=== PATIENT | male | born 1935 | race Caucasian/White ===

== ENCOUNTER 2016-11-18 08:13 | Inpatient (IN) | payer OTHER ==
[2016-11-18] VITALS (39 sets, daily range): BP systolic 77–148; BP diastolic 49–87; PULSE 68–98; TEMP 36.7–37; O2SAT 87–97; Ht 165.1 cm; Wt 69.6 kg
[~2016-11-18] VITALS: Ht 165.1 cm; Wt 69.6 kg
[~2016-11-18 08:13] MED LIST: ACYC5OIN3 EXT; ALBUAER2 INH; ALFU1TAB2 PO; BILB1CAP PO; CMD/25 PO; COEN1CAP17 PO; CRS/10 PO; GLUC1TAB22 PO; LORA10TA51 PO; MAGN250T3 PO; NXM/40 PO; PRED-301 PO; RISE150T PO; ROPI0.5T15 PO; TRAM-453 PO; WARF-246 PO
[2016-11-18] MEDS ORDERED: NOREPINEPHRINE BITARTRATE 1 MG/ML 4 ML VIAL ONE (09:38)
[2016-11-18] MEDS ORDERED: NOREPINEPHRINE BIT INJ 8 MG in DEXTROSE 5% 500ML 500 ML IV PRN (09:45)
[2016-11-18] MEDS ORDERED: NOREPINEPHRINE BIT INJ 8 MG in DEXTROSE 5% 500ML 500 ML IV SCH (09:49)
[2016-11-18] MEDS ORDERED: ROPI1TAB29 PO (09:52)
--- NOTE | 2016-11-18 10:10 | History and Physical ---
History & Physical Date & Time of Service: Nov 18, 2016 at 10:07 . Chief Complaint: confusion . Primary Care Physician: David Hu M.D. . History of Present Illness Source: patient, clinic records, hospital records 81 YO male followed by Dr. Hu for Family Medicine and Dr. Rainey for Cardiology. History of chronic atrial fibrillation, atrial flutter, ventricular tachycardia , valvular heart disease (s/p bioprosthetic AVR + MV repair), pulmonary embolism , osteoarthritis managed with chronic prednisone therapy, and other problems as noted below. Developed nausea, vomiting, diarrhea 2 nights ago after eating a hamburger at a restaurant. Was evaluated in the Emergency Department @[facility]. Medical status was stable and he returned home. Yesterday his family noted increasing confusion during the day. Returned to ED @ [facility]. Upon arrival there, he was tachycardic and hypotensive. He appeared to be septic. Blood pressure was 79/59. WBC was 3800. Serum lactate was < 2. Blood cultures were obtained. Received intravenous levofloxacin and piperacillin/tazobactam. Received fluid resuscitation with 3 L of normal saline. Remained hypotensive. Started on norepinephrine infusion for pressor support. No ICU beds available at [facility]. Arrangements made for transfer to [facility] for continued care. Systolic BPs in the 90 en route. Patient remained on norepinephrine infusion at time of arrival. He stated that he was feeling better. No chest pain, cough, shortness of breath. Nausea and vomiting resolved. . Past Medical/Surgical History Chronic & Resolved Medical Problems: (1) Atrial fibrillation Status: Chronic (2) BPH (benign prostatic hypertrophy) Status: Chronic (3) Carotid artery disease Status: Chronic (4) Cholelithiases Status: Chronic (5) Chronic steroid use Permanent Comment: prednisone 5 mg daily for osteoarthritis Status: Chronic (6) CKD (chronic kidney disease), stage III Status: Chronic (7) COPD (chronic obstructive pulmonary disease) Status: Chronic (8) Diverticular disease of colon Status: Chronic (9) Dyslipidemia Status: Chronic (10) History of atrial flutter Status: Chronic (11) History of electrophysiologic study Status: Chronic (12) History of paroxysmal supraventricular tachycardia Status: Chronic (13) History of prostate cancer Permanent Comment: 2007 Status: Chronic (14) History of pulmonary embolism Status: Chronic (15) History of ventricular tachycardia Status: Chronic (16) Hypertension Status: Chronic (17) Hypertensive heart disease Status: Chronic (18) Osteoarthritis Status: Chronic (19) Restless legs syndrome Status: Chronic (20) Spinal stenosis of lumbar region Status: Chronic Surgical Problems: (1) Status post aortic valve replacement Permanent Comment: bioprosthetic Status: Chronic (2) Status post cataract extraction Status: Chronic (3) Status post inguinal hernia repair Status: Chronic (4) Status post mitral valve repair Status: Chronic (5) 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 Family History MOTHER Arthritis BROTHER Diabetes mellitus Esophageal cancer FATHER Coronary artery disease SON Asthma Social History Smoking Status: Never Smoker Alcohol Use: occasionally Marital Status: Occupational Status: retired Immunizations History of Influenza Vaccine: Yes Allergies Coded Allergies: Penicillins (Verified Allergy, Intermediate, RASH/EL-ORBITAL EDEMA, 03/05) Home Medications Scheduled Alfuzosin Hcl (Alfuzosin Hcl Er), 10 MG PO QPM Bilberry (Vaccinium Myrtillus) (Bilberry), 100 MG PO QAM Coenzyme Q10 (Ubidecarenone) (Co Q 10), 100 MG PO QAM Esomeprazole Magnesium (Nexium), 40 MG PO QPM Loratadine (Claritin), 1 TAB PO QAM Magnesium (Magnesium 250 mg), 1 TAB PO QPM Prednisone (Prednisone), 5 MG PO QAM Risedronate Sodium (Actonel), 150 MG PO MONTHLY Ropinirole HCl (Ropinirole HCl), 1 MG PO HS Rosuvastatin Calcium (Crestor), 10 MG PO DAILY Warfarin Sod (Coumadin), 2.5 MG PO 5XWK Warfarin Sodium (Warfarin Sodium), 1 TAB PO 2XWK Scheduled PRN Acyclovir (Zovirax 5% Oint), 1 APPLN EXT for COLD SORES Albuterol (Ventolin), 2 PUFFS INH QID PRN for Shortness of Breath Tramadol Hcl (Ultram), 50-100 MG PO Q8 PRN for Pain Review of Systems Constitutional: + chills, No fever, No weight loss Eyes: + worsening of vision (associated with closed head injury 11/10, resolved ) ENT: + hearing loss, No nasal symptoms, No sore throat Respiratory: No cough, No shortness of breath, No wheezing Cardiovascular: No chest pain, No edema Abdomen: + diarrhea, + nausea, + vomiting, No GI bleeding, No pain Musculoskeletal: + joint pain, No muscle pain Genitourinary - Male: No dysuria, No hematuria Neurologic: + memory loss (confusion yesterday) Endocrine: + fatigue, No excessive thirst, No excessive urination Hematologic / Lymphatic: No abnormal bleeding/bruising, No swollen lymph nodes Integumentary: No new/changing skin lesions, No rash Physical Exam General Appearance: WD/WN, no apparent distress Head: normocephalic, atraumatic Eyes: normal inspection, PERRL, EOMI, sclerae normal, + pertinent finding ( conjunctivae pink) ENT: normal ENT inspection, hearing grossly normal, + pertinent finding (mild hearing loss) Neck: supple, no adenopathy, thyroid normal, no JVD, trachea midline Respiratory/Chest: lungs clear, no respiratory distress, no accessory muscle use Cardiovascular: no edema, no gallop, no JVD, + systolic murmur (II/ systolic murmur at base), + irregularly irregular Abdomen/GI: normal bowel sounds, non tender, soft, no organomegaly, no pulsatile mass Extremities/Musculoskelatal: normal inspection, no calf tenderness, normal capillary refill, no pedal edema 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 (PERRL, EOMI, no facial palsy, no dysarthria, tongue midline), no motor/sensory deficits (motor strength extremities grossly intact), alert, oriented x 3 Skin: normal color, warm/dry, no rash Lymphatic: no adenopathy Diagnostics Laboratory Results Results Past 24 Hours Test 11/18/16 09:10 11/18/16 09:15 11/18/16 09:33 Range/Units Creatine Kinase MB Ratio 0-3.0 Microbiology Results 11/18/16 Blood Culture, Branden Batch Pending 11/18/16 Blood Culture, Branden Batch Pending 11/18/16 MRSA DNA Surveillance Screen, Ordered Pending 11/18/16 C.difficile Toxin B Gene (PCR), Ordered Pending 11/18/16 Shiga Toxin Test, Ordered Pending 11/18/16 Stool Culture, Ordered Pending 11/18/16 Urine Culture, Ordered Pending Diagnostic Radiology SINGLE VIEW CHEST CLINICAL HISTORY: Hypotension. Rapid atrial fibrillation. FINDINGS: An AP, portable, upright chest radiograph is compared to study dated 08/10/2015 and correlated with chest CT dated 09/14/2014. The examination is degraded by portable technique and apical and out of positioning. The patient is status post midline sternotomy and cardiac valve surgeries. The heart is enlarged and there is atherosclerotic calcification of the thoracic aorta. There is pulmonary vascular congestion. Mild interstitial edema is identified. Small pleural effusions are suspected. There is no airspace consolidation typical for pneumonia. A calcified granuloma is noted in the left lung. No pneumothorax is seen. The skeletal structures are osteopenic. Degenerative changes present in the shoulders and thoracic spine. IMPRESSION: 1. Cardiomegaly with evidence of congestive failure and mild interstitial edema 2. Suspect trace pleural effusions.. Electronically signed by: Caleb Sams M.D. 11/18/2016 11:22 AM . EKG EKG performed at 10:22 reviewed and demonstrated atrial flutter with variable conduction, ventricular rate 80/minute, slight ST depression I, biphasic T waves and T-wave flattening in lateral leads. . Impression Assessment and Plan SEPTIC SHOCK Presented to Emergency Department at [facility] last night with confusion, tachycardia, hypotension. Had developed nausea, vomiting, diarrhea approximately 24 hours prior to presentation. Met criteria for sepsis @ [facility]- tachycardia, hypotension, leukopenia, altered mental status. 3-hour and 6 hour bundled sepsis care performed at [facility] prior to transfer. Blood cultures obtained. Lactate < 2. Broad-spectrum antibiotics (levofloxacin and piperacillin/tazobactam) administered. Received fluid resuscitation with 3 L normal saline. Persistent hypotension despite fluid resuscitation. Started on norepinephrine infusion for septic shock. Hemodynamics improved by the time patient arrived here in ICU. Try to discontinue norepinephrine and hemodynamics allow. Has received adequate fluid resuscitation prior to arrival here; NSS boluses PRN. On chronic prednisone therapy. May have adrenal insufficiency. IV hydrocortisone ordered. Continue broad-spectrum antibiotics. Allergic to penicillin. Will opt for daptomycin, levofloxacin, aztreonam pending culture data. Check procalcitonin. Check stool specimen for Clostridium difficile and routine enteric pathogens. Check culture results from [facility]. ALTERED MENTAL STATUS Family noted increasing confusion yesterday, prompting return to ED at [facility]. Probable encephalopathy secondary to sepsis. Had closed head injury with apparent concussion on 11/10. Check follow-up CT head to rule out SDH or other intracranial hemorrhage. CHRONIC ATRIAL FLUTTER Rate usually controlled without medications. Rapid ventricular response ED at [facility]. Ventricular rate now in the 80s to 90s. Continue anticoagulation with warfarin. CHF / PULMONARY EDEMA Chest x-ray shows pulmonary edema. History of hypertensive heart disease and diastolic dysfunction, but not requiring chronic diuretic therapy. Received fluid resuscitation for septic shock as outlined above. Probable acute left ventricular diastolic heart failure. Follow symptoms, exam, chest films. Diurese PRN. Check echocardiogram. HISTORY OF HYPERTENSION Not taking any antihypertensive medications at this time. Follow. CKD III Monitor renal function. Avoid potential nephrotoxins when able. OSTEOARTHRITIS/CHRONIC PREDNISONE THERAPY IV hydrocortisone while acutely ill, then resume prednisone 5 mg daily. DYSLIPIDEMIA Hold rosuvastatin while receiving daptomycin. VTE PROPHYLAXIS / HISTORY OF PE History of pulmonary embolism. On chronic warfarin therapy for atrial fibrillation/flutter and history of pulmonary embolism. INR 1.9. SCD's. Titrate warfarin. Ambulate when able. RESUSCITATION STATUS Discussed with patient. He would like resuscitation attempted in the event of a cardiopulmonary arrest if there is a reasonable chance of a meaningful recovery, but does not want prolonged extraordinary measures if prognosis is poor. Therefore, code status = "Level 1" (full resuscitation). DISPOSITION Acute transfer from [place] ED to ICU. Discharge disposition to be determined, but hopefully discharge to home. Family Medicine follow-up with Dr. Hu. Cardiology follow-up with Dr. Rainey. ADDENDUM: Lab results: Item Value Date Time Hemoglobin 13.7 g/dL L 11/18/16 1045 Hematocrit 41.4 % L 11/18/16 1045 White Blood Count 7.23 K/uL 11/18/16 1045 Platelet Count 126 K/uL L 11/18/16 1045 Sodium Level 142 mmol/L 11/18/16 1045 Potassium Level 3.8 mmol/L 11/18/16 1045 Chloride Level 108 mmol/L H 11/18/16 1045 Carbon Dioxide Level 23 mmol/L 11/18/16 1045 Blood Urea Nitrogen 31 mg/dl H 11/18/16 1045 Creatinine 1.40 mg/dl 11/18/16 1045 Random Glucose 99 mg/dl 11/18/16 1045 Calcium Level 6.7 mg/dl L 11/18/16 1045 Phosphorus Level 2.7 mg/dl 11/18/16 1045 Magnesium Level 2.1 mg/dl 11/18/16 1045 Total Bilirubin 1.7 mg/dl H 11/18/16 1045 Aspartate Amino Transf (AST/SGOT) 19 U/L 11/18/16 1045 Alanine Aminotransferase (ALT/SGPT) 17 U/L 11/18/16 1045 Alkaline Phosphatase 34 U/L L 11/18/16 1045 Total Protein 5.7 gm/dl L 11/18/16 1045 Albumin 2.7 gm/dl L 11/18/16 1045 Troponin I 0.063 ng/ml *H 11/18/16 1045 Prothrombin Time 20.7 SECONDS H 11/18/16 1045 Prothromb Time International Ratio 1.9 H 11/18/16 1045 Activated Partial Thromboplast Time 43.6 SECONDS H 11/18/16 1045 Venous Blood pH 7.38 11/18/16 1052 Venous Blood Partial Pressure CO2 36 mmHg L 11/18/16 1052 Venous Blood Partial Pressure O2 48 mmHg 11/18/16 1052 Venous Blood HCO3 21 mmol/L 11/18/16 1052 Venous Blood Oxygen Saturation 81.7 % 11/18/16 1052 Urine Color YELLOW 11/18/16 1000 Urine Appearance CLEAR 11/18/16 1000 Urine Protein TRACE H 11/18/16 1000 Urine Occult Blood 2+ H 11/18/16 1000 Urine Leukocyte Esterase NEG 11/18/16 1000 Urine WBC (Auto) 1-5 /hpf 11/18/16 1000 Urine RBC (Auto) >30 /hpf H 11/18/16 1000 Urine Hyaline Casts (Auto) 5-10 /lpf H 11/18/16 1000 Urine Epithelial Cells (Auto) >30 /lpf H 11/18/16 1000 Urine Bacteria (Auto) NEG 11/18/16 1000 Procalcitonin 7.22 ng/mL H 11/18/16 1045 Lactic Acid Level 1.9 mmol/L 11/18/16 1052 Received IV hydrocortisone. Norepinephrine discontinued. Hemodynamically stable. Family visiting and given update. . Resuscitation Status FULL RESUSCITATION VTE Prophylaxis VTE Risk Assessment Done? Y/N: Yes Risk Level: Moderate Given or contraindicated: Warfarin (Coumadin), SCD's Note Total Time: Critical Care 30 - 74 minutes (70 min)
[2016-11-18] MEDS ORDERED: HYDROCORTISONE IV 50 MG in SYRINGE 0 ML IV ONE ×2 (10:15→18:00)
[2016-11-18 10:43] LABS: URINE APPEARANCE CLEAR (CLEAR); URINE BILIRUBIN NEG (NEG); URINE COLOR YELLOW; URINE EPITHELIAL CELL AUTO >30 /lpf (0-5); URINE NITRITE NEG (NEG); URINE SPECIFIC GRAVITY 1.026 (1.000-1.030); UROBILINOGEN NEG (NEG)
[2016-11-18 10:44] LABS: MANUAL MICROSCOPIC REQUIRED? NO; REVIEW REQ? NO
[2016-11-18 11:18] LABS: HEMATOCRIT 41.4 % (42-52); MEAN CELL VOLUME 85.5 fL (80-100); MEAN CORPUSCULAR HEMOGLOBIN 28.3 pg (25-34); MEAN CORPUSCULAR HGB CONC 33.1 g/dl (32-36); MEAN PLATELET VOLUME 9.4 fL (7.4-10.4); PLATELET COUNT 126 K/uL (130-400); RED BLOOD COUNT 4.84 M/uL (4.7-6.1); WHITE BLOOD COUNT 7.23 K/uL (4.8-10.8)
--- NOTE | 2016-11-18 11:23 | DIAGNOSTIC IMAGING REPORT ---
SINGLE VIEW CHEST CLINICAL HISTORY: Hypotension. Rapid atrial fibrillation. FINDINGS: An AP, portable, upright chest radiograph is compared to study dated 08/10/2015 and correlated with chest CT dated 09/14/2014. The examination is degraded by portable technique and apical and out of positioning. The patient is status post midline sternotomy and cardiac valve surgeries. The heart is enlarged and there is atherosclerotic calcification of the thoracic aorta. There is pulmonary vascular congestion. Mild interstitial edema is identified. Small pleural effusions are suspected. There is no airspace consolidation typical for pneumonia. A calcified granuloma is noted in the left lung. No pneumothorax is seen. The skeletal structures are osteopenic. Degenerative changes present in the shoulders and thoracic spine. IMPRESSION: 1. Cardiomegaly with evidence of congestive failure and mild interstitial edema 2. Suspect trace pleural effusions.. Electronically signed by: Caleb Sams M.D. 11/18/2016 11:22 AM
[2016-11-18 11:26] LABS: VEN BLD GAS O2 SATURATION 81.7 %; VEN BLOOD GAS BASE EXCESS -3.7 mmol/L
[2016-11-18 11:27] LABS: INR 1.9 (0.9-1.1); PARTIAL THROMBOPLASTIN RATIO 1.7; PROTHROMBIN TIME (PATIENT) 20.7 SECONDS (9.0-12.0)
[2016-11-18 11:42] LABS: COMPLETE YES; EOSINOPHIL % 0.9 %; LYMPH ABS # 0.58 K/uL (1.2-3.4); META ABS # 0.07 K/uL (0-0); METAMYELOCYTE % 0.9 %; MYELOCYTE % 2.7 %; VACUOLIZATION 1+
[2016-11-18 11:45] LABS: BUN/CREATININE RATIO 21.8 (10-20); CALCIUM 6.7 mg/dl (8.5-10.1); CREATININE 1.4 mg/dl (0.60-1.40); MAGNESIUM 2.1 mg/dl (1.8-2.4); PHOSPHORUS 2.7 mg/dl (2.5-4.9); POTASSIUM 3.8 mmol/L (3.5-5.1)
[2016-11-18 11:46] LABS: ALB/GLOB RATIO 0.9 (0.9-2); CKMB/CK RATIO 1.1 (0-3.0)
[2016-11-18] MEDS ORDERED: PANTOprazole SOD 40 MG TAB PO ONE (12:15)
[2016-11-18] MEDS ORDERED: DAPTOmycin IV 425 MG in SODIUM CHLORIDE 0.9% 50ML 50 ML IV ONE (12:45)
[2016-11-18] MEDS ORDERED: LEVOFLOXACIN 750MG / D5W IV ONE (12:45)
[2016-11-18] MEDS ORDERED: AZTREONAM CONSULT ACTIVE PRN ×2 (13:15)
[2016-11-18] MEDS ORDERED: LEVOFLOXACIN CONSULT ACTIVE PRN (13:15)
[2016-11-18] MEDS ORDERED: DAPTOMYCIN CONSULT ACTIVE PRN ×2 (13:15)
[2016-11-18] MEDS ORDERED: AZTREONAM 2000 MG in DEXTROSE 5% 100 ML IV ONE (13:30)
[2016-11-18 16:26] LABS: BUN/CREATININE RATIO 24.1 (10-20); CALCIUM 6.5 mg/dl (8.5-10.1); CREATININE 1.3 mg/dl (0.60-1.40); POTASSIUM 3.8 mmol/L (3.5-5.1)
[2016-11-18 16:34] LABS: CKMB/CK RATIO 1.2 (0-3.0)
--- NOTE | 2016-11-18 17:34 | DIAGNOSTIC IMAGING REPORT ---
CT SCAN OF THE BRAIN WITHOUT IV CONTRAST CLINICAL HISTORY: Head injury. COMPARISON STUDY: No priors. TECHNIQUE: Unenhanced axial CT scan of the brain is performed from the vertex to the skull base. CT DOSE: 537.48 mGy.cm FINDINGS: Brain parenchyma: There are age-related involutional changes noting mild subcortical and periventricular microangiopathic change. There is no hemorrhage, mass effect, or evidence of acute territorial ischemia by CT criteria. Zarate-white matter is preserved. No extra-axial fluid collection is seen. Ventricles, sulci, cisterns: Prominent secondary to involutional change. Intracranial vasculature: There is atherosclerotic calcification of the cavernous carotid arteries. Calvarium: The skeletal structures are osteopenic. There is no depressed calvarial fracture. Sinuses and mastoids: The visualized paranasal sinuses are clear. The mastoid air cells are well pneumatized. Orbits: The bony orbits are grossly intact. There are bilateral ocular lens implants. IMPRESSION: There is no hemorrhage, mass effect, or evidence of acute territorial ischemia by CT criteria. Electronically signed by: Caleb Sams M.D. 11/18/2016 5:33 PM
[2016-11-18] MEDS ORDERED: WARFARIN SOD 5 MG TAB PO ONE (18:00)
[2016-11-18] MEDS: ROPINIROLE HCL 1 MG TAB PO SCH (20:14)
--- NOTE | 2016-11-18 20:17 | Progress Note ---
Progress Note Client Relationship Consultant: Patient was transferred from [place] ED to ICU secondary to hypotension requiring levophed 0.11 mcg/kg/min. His SBP was 127 on arrival and the levophed was stopped. I spoke to Dr. Gilbert about this patient and he is being transferred to telemetry this evening and has been off levophed since shortly after his arrival to the ICU. I did not see him. Please do not bill the patient for a consult.
[2016-11-18] MEDS: AZTREONAM IV 2,000 MG in DEXTROSE 5% 100ML 100 ML IV SCH (21:53)
[2016-11-18] MEDS: TRAMADOL HCL 50 MG TAB PO PRN (22:01)
[2016-11-18 22:23] LABS: BUN/CREATININE RATIO 25.2 (10-20); CALCIUM 6.8 mg/dl (8.5-10.1); CREATININE 1.1 mg/dl (0.60-1.40); MAGNESIUM 2.2 mg/dl (1.8-2.4); POTASSIUM 3.8 mmol/L (3.5-5.1)
[2016-11-18 22:27] LABS: CKMB/CK RATIO 1.4 (0-3.0)
[2016-11-18] MEDS ORDERED: FUROSEMIDE INJ 20 MG in SYRINGE 0 ML IV STA (23:57)
[2016-11-19] VITALS (30 sets, daily range): BP systolic 90–143; BP diastolic 61–90; PULSE 74–89; TEMP 36.6–36.7; O2SAT 90–96
[2016-11-19] MEDS: POTASSIUM CHLR 10 MEQ / WTR 10 MEQ in PREMIXED WATER 100 ML IV SCH ×2 (00:02→02:03)
[2016-11-19] MEDS ORDERED: HYDROCORTISONE IV 50 MG in SYRINGE 0 ML IV STA (02:13)
[2016-11-19 05:39] LABS: HEMATOCRIT 37.7 % (42-52); MEAN CELL VOLUME 84.3 fL (80-100); MEAN CORPUSCULAR HEMOGLOBIN 28.9 pg (25-34); MEAN CORPUSCULAR HGB CONC 34.2 g/dl (32-36); MEAN PLATELET VOLUME 9.3 fL (7.4-10.4); PLATELET COUNT 110 K/uL (130-400); RED BLOOD COUNT 4.47 M/uL (4.7-6.1); WHITE BLOOD COUNT 6.85 K/uL (4.8-10.8)
[2016-11-19 06:00] LABS: INR 2.1 (0.9-1.1); PROTHROMBIN TIME (PATIENT) 22.8 SECONDS (9.0-12.0)
[2016-11-19] MEDS: AZTREONAM IV 2,000 MG in DEXTROSE 5% 100ML 100 ML IV SCH ×3 (06:06→22:15)
[2016-11-19 06:09] LABS: BUN/CREATININE RATIO 20.1 (10-20); CALCIUM 7.1 mg/dl (8.5-10.1); CREATININE 1.1 mg/dl (0.60-1.40); POTASSIUM 3.6 mmol/L (3.5-5.1)
[2016-11-19 06:21] LABS: ALB/GLOB RATIO 0.9 (0.9-2); PHOSPHORUS 1.6 mg/dl (2.5-4.9)
[2016-11-19 06:32] LABS: MAGNESIUM 2.3 mg/dl (1.8-2.4)
[2016-11-19] MEDS ORDERED: POTASSIUM PHOS 3 MMOL/1 ML INFUSION IV ONE ×2 (07:00→17:15)
[2016-11-19] MEDS ORDERED: POTASSIUM PHOSPHATE INJ 21 MMOL in SODIUM CHLORIDE 0.9% 500ML 500 ML IV ONE (07:15)
--- NOTE | 2016-11-19 07:33 | DIAGNOSTIC IMAGING REPORT ---
CHEST ONE VIEW PORTABLE HISTORY: sepsis COMPARISON: Chest 11/18/2016. FINDINGS: No pneumothorax. No pleural effusions. The heart remains mildly enlarged. There is an aortic valve prosthesis and a mitral ring. Poststernotomy changes. Calcified granulomas within the lungs. Linear density at the left lung base persist. No evidence for pulmonary edema. The right lung is clear. IMPRESSION: 1. Pulmonary congestion has resolved. 2. Linear density at the left lung base persist and may represent atelectasis or pneumonia. Electronically signed by: Theo Capellan M.D. 11/19/2016 7:32 AM
[2016-11-19] MEDS: PANTOprazole SOD 40 MG TAB PO SCH (07:58)
[2016-11-19] MEDS ORDERED: ROSUVASTATIN CALCIUM 10 MG TAB PO SCH (09:00)
[2016-11-19] MEDS ORDERED: PANTOprazole INJ 40 MG in SYRINGE 0 ML IV SCH (09:00)
--- NOTE | 2016-11-19 11:10 | ECHOCARDIOGRAM REPORT ---
*NOTICE TO RECEIVING CONSTITUTION PARTY AGENCY This information is strictly Confidential and protected under [place] law. [place] law prohibits you from making any further disclosure of this information unless further disclosure is expressly permitted by the written consent of the person to whom it pertains or is authorized by law. A general authorization for the release of medical or other information is not sufficient for this purpose. Hospital accepts no responsibility if the information is made available to any other person, INCLUDING THE PATIENT. Interpretation Summary * Name: RAISSA CARMEN Study Date: 11/19/2016 08:22 AM BP: 114/79 mmHg * [facility] HR: 79 * : 1935 (M/d/yyyy) Gender: Male Height: 65 in * Age: 81 yrs Ethnicity: [place] Weight: 154 lb * Ordering Physician: Randy Gilbert * Performed By: Keren Louise RDCS * * Reason For Study: CHF * BSA: 1.8 m2 * History: CHF * -- Conclusions -- * Normal LV chamber size with mild concentric LVH. * Normal LV systolic function, EF 55-60%. * No segmental left ventricular wall motion abnormalities are noted. * Grade II diastolic dysfunction. * There is a bioprosthetic aortic valve. * The gradient is normal for this prosthetic aortic valve. * Doppler evidence of regurgitation is probably normal for this prosthetic aortic valve. * There is no mitral regurgitation noted. * There is no mitral valve stenosis. * An annuloplasty ring is noted in the mitral position. Procedure Details * A complete two-dimensional transthoracic echocardiogram was performed (2D, M-mode, Doppler and color flow Doppler). Left Ventricle * The left ventricular cavity is small. * There is mild concentric left ventricular hypertrophy. * Ejection Fraction = 55-60%. * Left ventricular systolic function is normal. * No segmental left ventricular wall motion abnormalities are noted. * The left ventricular wall motion is normal at rest. Right Ventricle * The right ventricular cavity size is normal (basal dimension <4.2 cm in right ventricular apical 4-chamber view). * The right ventricular systolic function is normal as assessed by tricuspid annular plane systolic excursion (TAPSE) (normal >1.5 cm). Atria * The left atrium is severely dilated. * Right atrial size is normal. * No ASD detected; PFO is not assessed. Mitral Valve * There is no mitral valve stenosis. * There is no mitral regurgitation noted. * An annuloplasty ring is noted in the mitral position. Tricuspid Valve * The tricuspid valve is normal in structure and function. Aortic Valve * There is a bioprosthetic aortic valve. * The gradient is normal for this prosthetic aortic valve. * Doppler evidence of regurgitation is probably normal for this prosthetic aortic valve. Pulmonic Valve * The pulmonary valve is not well seen, but the Doppler examination is normal without significant regurgitation or stenosis. Great Vessels * The aortic root is normal size. Pericardium/Pleural * There is no pericardial effusion. Left Ventricular Diastolic Function * Diastolic dysfunction, Grade II (pseudonormalization pattern). MMode 2D Measurements and Calculations IVSd 1.3 cm IVSs 1.5 cm LVIDd 3.6 cm LVIDs 2.6 cm LVPWd 1.8 cm LVPWs 1.9 cm IVS/LVPW 0.75 FS 26.5 % EDV(Teich) 53.1 ml ESV(Teich) 25.0 ml EF(Teich) 52.9 % EDV(cubed) 45.2 ml ESV(cubed) 17.9 ml EF(cubed) 60.3 % % IVS thick 11.3 % % LVPW thick 7.2 % LV mass(C)d 207.2 grams LV mass(C)dI 117.0 grams/m\S\2 LV mass(C)s 163.3 grams LV mass(C)sI 92.2 grams/m\S\2 SV(Teich) 28.0 ml SI(Teich) 15.8 ml/m\S\2 SV(cubed) 27.3 ml SI(cubed) 15.4 ml/m\S\2 Ao root diam 3.3 cm Ao root area 8.7 cm\S\2 LVAd ap4 29.9 cm\S\2 LVLd ap4 7.6 cm EDV(MOD-sp4) 96.5 ml EDV(sp4-el) 100.0 ml LVAs ap4 19.6 cm\S\2 LVLs ap4 6.3 cm ESV(MOD-sp4) 50.0 ml ESV(sp4-el) 51.8 ml EF(MOD-sp4) 48.3 % EF(sp4-el) 48.2 % LVAd ap2 18.7 cm\S\2 LVLd ap2 7.4 cm EDV(MOD-sp2) 40.2 ml EDV(sp2-el) 40.3 ml LVAs ap2 12.5 cm\S\2 LVLs ap2 6.2 cm ESV(MOD-sp2) 24.1 ml ESV(sp2-el) 21.3 ml EF(MOD-sp2) 40.0 % EF(sp2-el) 47.0 % LVLd %diff -3.03 % EDV(MOD-bp) 62.1 ml LVLs %diff -1.23 % ESV(MOD-bp) 33.6 ml EF(MOD-bp) 45.9 % SV(MOD-sp4) 46.6 ml SI(MOD-sp4) 26.3 ml/m\S\2 SV(MOD-sp2) 16.1 ml SI(MOD-sp2) 9.1 ml/m\S\2 SV(MOD-bp) 28.5 ml SI(MOD-bp) 16.1 ml/m\S\2 SV(sp4-el) 48.2 ml SI(sp4-el) 27.2 ml/m\S\2 SV(sp2-el) 18.9 ml SI(sp2-el) 10.7 ml/m\S\2 Doppler Measurements and Calculations MV E max garret 173.1 cm/sec MV A max garret 107.8 cm/sec MV E/A 1.6 MV dec time 0.29 sec Ao V2 max 201.6 cm/sec Ao max PG 16.3 mmHg Ao max PG (full) 13.1 mmHg Ao V2 mean 137.6 cm/sec Ao mean PG 8.7 mmHg Ao mean PG (full) 6.9 mmHg Ao V2 VTI 37.6 cm LV V1 max PG 3.2 mmHg LV V1 mean PG 1.8 mmHg LV V1 max 89.5 cm/sec LV V1 mean 62.6 cm/sec LV V1 VTI 19.7 cm SV(Ao) 328.4 ml SI(Ao) 185.5 ml/m\S\2 TR max garret 205.5 cm/sec
[2016-11-19] MEDS: DAPTOmycin IV 425 MG in SODIUM CHLORIDE 0.9% 50ML 50 ML IV SCH (14:00)
[2016-11-19] MEDS ORDERED: WARFARIN SOD 5 MG TAB PO ONE (16:00)
[2016-11-19 16:25] LABS: POTASSIUM 3.9 mmol/L (3.5-5.1)
[2016-11-19 16:30] LABS: PHOSPHORUS 1.7 mg/dl (2.5-4.9)
[2016-11-19] MEDS ORDERED: POTASSIUM PHOSPHATE INJ 21 MMOL in SODIUM CHLORIDE 0.9% 500ML 500 ML IV SCH (17:30)
[2016-11-19] MEDS ORDERED: HYDROCORTISONE IV 50 MG in SYRINGE 0 ML IV ONE (18:00)
--- NOTE | 2016-11-19 19:56 | Progress Note ---
Medicine Progress Note Date & Time of Visit: Nov 19, 2016 at 0900 . Subjective Low blood pressures last evening, but hemodynamically stable since then. No fever. No chest pain. No cough or SOB. No nausea or vomiting. No abdominal pain. Persistent loose stools without gross blood. Still has Gabriel cath. . Objective Last 8 Hrs Date Time Temp Pulse Resp B/P Pulse Ox O2 Delivery O2 Flow Rate FiO2 11/19/16 16:30 95 Room Air 2.0 11/19/16 16:04 36.7 81 18 103/66 95 Room Air 11/19/16 15:00 82 19 96 Room Air 11/19/16 14:04 82 21 105/64 11/19/16 14:00 82 17 105/64 96 Room Air 11/19/16 14:00 83 21 11/19/16 13:00 82 19 11/19/16 12:51 82 17 108/77 11/19/16 12:00 82 21 11/19/16 11:45 94 Room Air 8-Hour Column 11/18/16 11/19/16 11/19/16 16:00 00:00 08:00 Intake Total 660 ml 883 ml 267 ml Output Total 375 ml 300 ml 2400 ml Balance 285 ml 583 ml -2133 ml 24-Hour Column 11/19/16 08:00 Intake Total 1810 ml Output Total 3075 ml Balance -1265 ml Physical Exam: General- no distress Eyes- anicteric Neck- no JVD Lungs- few basilar rales Heart- irregular, no gallop Abdomen- + BS, soft, nontender Extremities- trace pretibial edema, no calf tenderness Neuro- alert, oriented . Laboratory Results: Last 24 Hours Test 11/18/16 21:58 11/19/16 05:31 11/19/16 16:04 Sodium Level 139 mmol/L 138 mmol/L Potassium Level 3.8 mmol/L 3.6 mmol/L 3.9 mmol/L Chloride Level 107 mmol/L 105 mmol/L Carbon Dioxide Level 23 mmol/L 24 mmol/L Anion Gap 9.0 mmol/L 9.0 mmol/L Blood Urea Nitrogen 28 mg/dl 22 mg/dl Creatinine 1.10 mg/dl 1.10 mg/dl Est Creatinine Clear Calc Drug Dose 47.4 ml/min 47.4 ml/min Estimated GFR () 73.6 73.6 Estimated GFR (Non- 63.5 63.5 BUN/Creatinine Ratio 25.2 20.1 Random Glucose 97 mg/dl 108 mg/dl Lactic Acid Level 1.2 mmol/L Calcium Level 6.8 mg/dl 7.1 mg/dl Magnesium Level 2.2 mg/dl 2.3 mg/dl Total Creatine Kinase 214 U/L Creatine Kinase MB 2.9 ng/ml Creatine Kinase MB Ratio 1.4 Troponin I 0.042 ng/ml White Blood Count 6.85 K/uL Red Blood Count 4.47 M/uL Hemoglobin 12.9 g/dL Hematocrit 37.7 % Mean Corpuscular Volume 84.3 fL Mean Corpuscular Hemoglobin 28.9 pg Mean Corpuscular Hemoglobin Concent 34.2 g/dl RDW Standard Deviation 43.0 fL RDW Coefficient of Variation 13.8 % Platelet Count 110 K/uL Mean Platelet Volume 9.3 fL Prothrombin Time 22.8 SECONDS Prothromb Time International Ratio 2.1 Phosphorus Level 1.6 mg/dl 1.7 mg/dl Total Bilirubin 0.9 mg/dl Aspartate Amino Transf (AST/SGOT) 23 U/L Alanine Aminotransferase (ALT/SGPT) 20 U/L Alkaline Phosphatase 37 U/L Total Protein 5.6 gm/dl Albumin 2.6 gm/dl Globulin 3.0 gm/dl Albumin/Globulin Ratio 0.9 Date/Time Source Procedure Growth Status 11/19/16 06:30 Stool C.difficile Toxin B Gene (PCR) - Final No C. difficile toxin B gene detected Complete 11/19/16 06:30 Stool Shiga Toxin Test Pending Received 11/19/16 06:30 Stool Stool Culture Pending Received Assessment & Plan SEPTIC SHOCK Presented to Emergency Department at [facility] last night with confusion, tachycardia, hypotension. Had developed nausea, vomiting, diarrhea approximately 24 hours prior to presentation. Met criteria for sepsis @ [facility]- tachycardia, hypotension, leukopenia, altered mental status. 3-hour and 6 hour bundled sepsis care performed at [facility] prior to transfer: Blood cultures obtained. Lactate < 2. Broad-spectrum antibiotics (levofloxacin and piperacillin/tazobactam) administered. Received fluid resuscitation with 3 L normal saline. Persistent hypotension despite fluid resuscitation. Started on norepinephrine infusion for septic shock. Hemodynamics improved by the time patient arrived to [facility]. Received IV hydrocortisone due to chronic steroid therapy. Norepinephrine discontinued. Received adequate fluid resuscitation @ [facility]. Procalcitonin elevated at 7.2. Source of sepsis uncertain, probably GI. Continue broad-spectrum antibiotic coverage with daptomycin, levofloxacin, aztreonam pending culture data. Check stool specimen for Clostridium difficile and routine enteric pathogens. Check culture results from [facility]. ALTERED MENTAL STATUS Family noted increasing confusion yesterday, prompting return to ED at [facility]. Probable encephalopathy secondary to sepsis. Had closed head injury with apparent concussion on 11/10. Follow-up CT head negative for SDH or other intracranial hemorrhage. CHRONIC ATRIAL FLUTTER Rate usually controlled without medications. Rapid ventricular response ED at [facility]. Ventricular rate now in the 80s to 90s. Continue anticoagulation with warfarin. CHF / PULMONARY EDEMA Chest x-ray shows pulmonary edema. History of hypertensive heart disease and diastolic dysfunction, but not requiring chronic diuretic therapy. Received fluid resuscitation for septic shock as outlined above. Probable acute left ventricular diastolic heart failure. Follow symptoms, exam, chest films. Diurese PRN. Echocardiogram - normal LV wall motion and systolic function; grade HISTORY OF HYPERTENSION Not taking any antihypertensive medications at this time. Follow. CKD III Serum creatinine 1.4 on admission. Creatinine today = 1.1. Avoid potential nephrotoxins when able. OSTEOARTHRITIS/CHRONIC PREDNISONE THERAPY Received IV hydrocortisone while acutely ill Resumed prednisone 5 mg daily. DYSLIPIDEMIA Hold rosuvastatin while receiving daptomycin. VTE PROPHYLAXIS / HISTORY OF PE History of pulmonary embolism. On chronic warfarin therapy for atrial fibrillation/flutter and history of pulmonary embolism. INR 2.1. SCD's. Continue warfarin. Ambulate when able. RESUSCITATION STATUS Full code as detailed in H&P. DISPOSITION Hemodynamically stable. Transfer to Telemetry Unit. Discharge disposition to be determined, but hopefully discharge to home. Family Medicine follow-up with Dr. Hu. Cardiology follow-up with Dr. Rainey. Current Inpatient Medications: Current Inpatient Medications Medications (Trade) Dose Ordered Sig/Deena Route Start Time Stop Time Status Last Admin Dose Admin Norepinephrine Bitartrate/ Dextrose (Levophed Inj/ D5W 500ml) 508 ml @ 0 mls/hr Q0M IV 11/18/16 09:49 12/18/16 09:48 Pantoprazole Sodium (Protonix Tab) 40 mg QAM PO 11/19/16 09:00 12/19/16 08:59 11/19/16 07:58 40 MG Prednisone (PredniSONE TAB) 5 mg QAM PO 11/19/16 09:00 12/19/16 08:59 11/19/16 07:58 5 MG Ropinirole HCl (Requip Tab) 1 mg HS PO 11/18/16 21:00 12/18/16 20:59 11/18/16 20:14 1 MG Rosuvastatin Calcium (Crestor Tab) 10 mg DAILY PO 11/19/16 09:00 12/19/16 08:59 Future Hold 11/19/16 07:59 10 MG Tramadol HCl 50 mg 50 mg Q8 PRN PO 11/18/16 14:00 12/18/16 13:59 11/18/16 22:01 50 MG Levofloxacin 750 mg/Prmx 150 ml @ 100 mls/hr Q2D@1400 IV 11/20/16 14:00 11/28/16 23:59 Aztreonam 2000 mg/ Dextrose 110 ml @ 100 mls/hr Q8H IV 11/18/16 22:00 11/28/16 21:59 11/19/16 14:00 100 MLS/HR Daptomycin/Sodium Chloride (Cubicin IV/Nss 50ml) 58.5 ml @ 100 mls/hr Q24H IV 11/19/16 14:00 11/27/16 14:36 11/19/16 14:00 100 MLS/HR Daptomycin (Consult) 1 ea UD PRN N/A 11/18/16 13:15 12/18/16 13:14 Levofloxacin (Consult) 1 ea UD PRN N/A 11/18/16 13:15 12/18/16 13:14 Aztreonam (Consult) 1 ea UD PRN N/A 11/18/16 13:15 12/18/16 13:14 Alfuzosin HCl 10 mg 10 mg QPM PO 11/19/16 21:00 12/19/16 20:59 Potassium Phosphate/Sodium Chloride (Potassium Phosphate Inj/Nss 500ml) 507 ml @ 145 mls/hr TODAY@1730 IV 11/19/16 17:30 11/19/16 21:00 11/19/16 17:50 145 MLS/HR
[2016-11-19] MEDS: ROPINIROLE HCL 1 MG TAB PO SCH (21:29)
[2016-11-19] MEDS: ALFUZosin TAB 10 MG TAB PO SCH (21:29)
[2016-11-20] VITALS (8 sets, daily range): BP systolic 92–107; BP diastolic 55–70; PULSE 81–89; TEMP 36.6–36.9; O2SAT 93–98
[2016-11-20] MEDS: AZTREONAM IV 2,000 MG in DEXTROSE 5% 100ML 100 ML IV SCH ×2 (06:05→14:25)
[2016-11-20 07:33] LABS: HEMATOCRIT 38.5 % (42-52); MEAN CELL VOLUME 83.9 fL (80-100); MEAN CORPUSCULAR HEMOGLOBIN 27.7 pg (25-34); PLATELET COUNT 134 K/uL (130-400); RED BLOOD COUNT 4.59 M/uL (4.7-6.1); WHITE BLOOD COUNT 6.67 K/uL (4.8-10.8)
[2016-11-20 07:41] LABS: INR 3.4 (0.9-1.1); PROTHROMBIN TIME (PATIENT) 38.8 SECONDS (9.0-12.0)
[2016-11-20 07:59] LABS: BUN/CREATININE RATIO 16.8 (10-20); CALCIUM 7.7 mg/dl (8.5-10.1); CREATININE 1.1 mg/dl (0.60-1.40); MAGNESIUM 2.2 mg/dl (1.8-2.4)
[2016-11-20 08:02] LABS: ALB/GLOB RATIO 0.8 (0.9-2); PHOSPHORUS 1.8 mg/dl (2.5-4.9)
[2016-11-20] MEDS ORDERED: POTASSIUM PHOSPHATE INJ 21 MMOL in SODIUM CHLORIDE 0.9% 500ML 500 ML IV SCH (08:15)
[2016-11-20] MEDS ORDERED: POTASSIUM PHOS 3 MMOL/1 ML INFUSION IV ONE (08:15)
[2016-11-20] MEDS: PANTOprazole SOD 40 MG TAB PO SCH (09:05)
--- NOTE | 2016-11-20 10:09 | Medical Consult ---
Consultation Date of Consultation: Nov 20, 2016. Attending Physician: Randy Gilbert M.D. 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 He went to the local emergency department where he was evaluated and sent home but returned with worsening symptoms and found to have evidence of sepsis with early septic shock, requiring fluid resuscitation and pressor support. He was transferred here for further management. He has been hypotensive, but thus far cultures have been negative, and patient has been afebrile. He currently is complaining of significant abdominal distention and bloating. No further diarrhea. Has heartburn but no vomiting. Significant anorexia. No other localizing complaints. Procalcitonin has been significantly elevated but now improving. Currently on daptomycin, levofloxacin , and aztreonam. Past Medical/Surgical History Medical Problems: (1) Atrial fibrillation (2) BPH (benign prostatic hypertrophy) (3) Carotid artery disease (4) Cholelithiases (5) Chronic steroid use (6) CKD (chronic kidney disease), stage III (7) COPD (chronic obstructive pulmonary disease) (8) Diverticular disease of colon (9) Dyslipidemia (10) History of atrial flutter (11) History of electrophysiologic study (12) History of paroxysmal supraventricular tachycardia (13) History of prostate cancer (14) History of pulmonary embolism (15) History of ventricular tachycardia (16) Hypertension (17) Hypertensive heart disease (18) Osteoarthritis (19) Restless legs syndrome (20) Spinal stenosis of lumbar region Surgical Problems: (1) Status post aortic valve replacement (2) Status post cataract extraction (3) Status post inguinal hernia repair (4) Status post mitral valve repair (5) Status post partial colectomy Family History Arthritis MOTHER Asthma SON Coronary artery disease FATHER Diabetes mellitus BROTHER Esophageal cancer BROTHER Social History Smoking Status: Never Smoker Alcohol Use: occasionally Marital Status: Housing Status: lives with family Occupation Status: retired Allergies Coded Allergies: Penicillins (Verified Allergy, Intermediate, RASH/EL-ORBITAL EDEMA, 03/05) Current Inpatient Medications Current Inpatient Medications Medications (Trade) Dose Ordered Sig/Deena Route Start Time Stop Time Status Last Admin Dose Admin Norepinephrine Bitartrate/ Dextrose (Levophed Inj/ D5W 500ml) 508 ml @ 0 mls/hr Q0M IV 11/18/16 09:49 12/18/16 09:48 Pantoprazole Sodium (Protonix Tab) 40 mg QAM PO 11/19/16 09:00 12/19/16 08:59 11/20/16 09:05 40 MG Prednisone (PredniSONE TAB) 5 mg QAM PO 11/19/16 09:00 12/19/16 08:59 11/20/16 09:05 5 MG Ropinirole HCl (Requip Tab) 1 mg HS PO 11/18/16 21:00 12/18/16 20:59 11/19/16 21:29 1 MG Rosuvastatin Calcium (Crestor Tab) 10 mg DAILY PO 11/19/16 09:00 12/19/16 08:59 Future Hold 11/19/16 07:59 10 MG Tramadol HCl 50 mg 50 mg Q8 PRN PO 11/18/16 14:00 12/18/16 13:59 11/18/16 22:01 50 MG Levofloxacin 750 mg/Prmx 150 ml @ 100 mls/hr Q2D@1400 IV 11/20/16 14:00 11/28/16 23:59 Aztreonam 2000 mg/ Dextrose 110 ml @ 100 mls/hr Q8H IV 11/18/16 22:00 11/28/16 21:59 11/20/16 06:05 100 MLS/HR Daptomycin/Sodium Chloride (Cubicin IV/Nss 50ml) 58.5 ml @ 100 mls/hr Q24H IV 11/19/16 14:00 11/27/16 14:36 11/19/16 14:00 100 MLS/HR Daptomycin (Consult) 1 ea UD PRN N/A 11/18/16 13:15 12/18/16 13:14 Levofloxacin (Consult) 1 ea UD PRN N/A 11/18/16 13:15 12/18/16 13:14 Aztreonam (Consult) 1 ea UD PRN N/A 11/18/16 13:15 12/18/16 13:14 Alfuzosin HCl 10 mg 10 mg QPM PO 11/19/16 21:00 12/19/16 20:59 11/19/16 21:29 10 MG Potassium Phosphate/Sodium Chloride (Potassium Phosphate Inj/Nss 500ml) 507 ml @ 88 mls/hr TODAY@0815 IV 11/20/16 08:15 11/20/16 15:00 11/20/16 09:05 88 MLS/HR Review of Systems Constitutional: + fatigue, + weakness, No fever Eyes: No problem reported ENT: No problem reported Respiratory: No problem reported Cardiovascular: No problem reported Abdomen: + diarrhea, + nausea, + pain, + vomiting, No GI bleeding Musculoskeletal: No problem reported Genitourinary - Male: No problem reported Neurologic: + weakness Psychiatric: No problem reported Endocrine: No problem reported Hematologic / Lymphatic: No problem reported Integumentary: No problem reported Allergic / Immunologic: No problem reported Physical Exam Date Time Temp Pulse Resp B/P Pulse Ox O2 Delivery O2 Flow Rate FiO2 11/20/16 08:39 36.8 86 18 92/55 98 11/20/16 04:00 93 Room Air 11/20/16 03:12 36.9 81 15 92/55 93 Room Air 11/20/16 00:00 36.6 83 94/61 94 Room Air 11/20/16 00:00 94 Room Air 11/19/16 20:00 36.6 83 143/90 96 Room Air 11/19/16 20:00 96 Room Air 11/19/16 16:30 95 Room Air 2.0 11/19/16 16:04 36.7 81 18 103/66 95 Room Air 11/19/16 15:00 82 19 96 Room Air 11/19/16 14:04 82 21 105/64 11/19/16 14:00 82 17 105/64 96 Room Air 11/19/16 14:00 83 21 11/19/16 13:00 82 19 11/19/16 12:51 82 17 108/77 11/19/16 12:00 82 21 11/19/16 11:45 94 Room Air 11/19/16 11:00 83 21 11/19/16 10:29 82 14 96/61 General Appearance: WD/WN, + mild distress Head: normocephalic, atraumatic Eyes: normal inspection, EOMI, sclerae normal ENT: normal ENT inspection, hearing grossly normal, pharynx normal Neck: supple, no adenopathy, thyroid normal, trachea midline Respiratory/Chest: chest non-tender, lungs clear, normal breath sounds, no respiratory distress Cardiovascular: no gallop, + systolic murmur, + irregularly irregular Abdomen/GI: normal bowel sounds, non tender, no organomegaly, + distended Back: normal inspection, no CVA tenderness Extremities/Musculoskelatal: no calf tenderness, non-tender Neurologic/Psych: alert, oriented x 3 Skin: normal color, warm/dry, no rash Lymphatic: no adenopathy Laboratory Results RUN DATE: 11/20/16 [facility] LAB PAGE 1 RUN TIME: 654 Specimen Inquiry [id number] [id number] AGE/SX: 81/M ROOM: [facility] REG : 11/18/[address]: Randy Gilbert M.D. : 1935 BED: 1 DIS : STATUS: ADM IN TLOC: SPEC #: [id number] [place]: 11/18/16-1051 STATUS: RES REQ #: [id number] RECD: 11/18/16-[address]: Randy Gilbert M.D. SOURCE: BLOOD ENTR: 11/18/[address] [facility] [address]: Melody Moreno MD [facility]: David Hu M.D. ORDERED: BLOOD CULTURE Procedure Result Verified Site BLD CULT Preliminary 11/20/16 NO GROWTH TO DATE. Last 24 Hours Test 11/19/16 16:04 11/20/16 06:56 Potassium Level 3.9 mmol/L 4.0 mmol/L Phosphorus Level 1.7 mg/dl 1.8 mg/dl White Blood Count 6.67 K/uL Red Blood Count 4.59 M/uL Hemoglobin 12.7 g/dL Hematocrit 38.5 % Mean Corpuscular Volume 83.9 fL Mean Corpuscular Hemoglobin 27.7 pg Mean Corpuscular Hemoglobin Concent 33.0 g/dl RDW Standard Deviation 41.4 fL RDW Coefficient of Variation 13.6 % Platelet Count 134 K/uL Mean Platelet Volume 10.0 fL Prothrombin Time 38.8 SECONDS Prothromb Time International Ratio 3.4 Sodium Level 139 mmol/L Chloride Level 105 mmol/L Carbon Dioxide Level 27 mmol/L Anion Gap 7.0 mmol/L Blood Urea Nitrogen 19 mg/dl Creatinine 1.10 mg/dl Est Creatinine Clear Calc Drug Dose 47.4 ml/min Estimated GFR () 73.6 Estimated GFR (Non- 63.5 BUN/Creatinine Ratio 16.8 Random Glucose 104 mg/dl Calcium Level 7.7 mg/dl Magnesium Level 2.2 mg/dl Total Bilirubin 0.6 mg/dl Aspartate Amino Transf (AST/SGOT) 20 U/L Alanine Aminotransferase (ALT/SGPT) 19 U/L Alkaline Phosphatase 41 U/L Total Protein 5.5 gm/dl Albumin 2.5 gm/dl Globulin 3.0 gm/dl Albumin/Globulin Ratio 0.8 Procalcitonin 3.22 ng/mL CHEST ONE VIEW PORTABLE HISTORY: sepsis COMPARISON: Chest 11/18/2016. FINDINGS: No pneumothorax. No pleural effusions. The heart remains mildly enlarged. There is an aortic valve prosthesis and a mitral ring. Poststernotomy changes. Calcified granulomas within the lungs. Linear density at the left lung base persist. No evidence for pulmonary edema. The right lung is clear. IMPRESSION: 1. Pulmonary congestion has resolved. 2. Linear density at the left lung base persist and may represent atelectasis or pneumonia. Electronically signed by: Theo Capellan M.D. 11/19/2016 7:32 AM The status of this Assessment & Plan Clinical picture of septic shock with markedly elevated procalcitonin suggestive of acute bacterial process. Likeliest source appears to be intra- abdominal process (cholecystitis, diverticulitis, etc) given ongoing bloating/ distension and lack of other localizing findings. Recommend CT abdomen and continuing broad spectrum antibiotics pending results. Will discuss with Dr. Gilbert.
[2016-11-20] MEDS ORDERED: SODIUM CHLORIDE 0.9% 500ML 500 ML IV SCH (11:15)
[2016-11-20] MEDS ORDERED: OPTIRAY 320 IV PRN (13:00)
[2016-11-20] MEDS: DAPTOmycin IV 425 MG in SODIUM CHLORIDE 0.9% 50ML 50 ML IV SCH (13:53)
--- NOTE | 2016-11-20 13:54 | DIAGNOSTIC IMAGING REPORT ---
CT ABD/PELVIS IV AND ORAL CONT CLINICAL HISTORY: Sepsis, diffuse abdominal pain DIARRHEA COMPARISON STUDY: None. TECHNIQUE: Following the IV administration of 94 mL of Optiray-320, CT scan of the abdomen and pelvis was performed from the lung bases to the proximal femurs. Images are reviewed in the axial, sagittal, and coronal planes. IV contrast was administered without complication. CT DOSE: 679.16 mGycm FINDINGS: Lower chest: There are airspace opacities within the lingula and left lower lobe, possibly representing a pneumonitis. There are nonspecific dependent airspace opacities within the right lower lobe. The heart is enlarged. There is a trace left pleural effusion. There is a small hiatal hernia. There is a posterior gastric diverticulum. Liver: The contrast-enhanced liver is normal in size, contour, and attenuation. There is no intrahepatic biliary ductal dilatation. The hepatic veins and portal veins are patent. Gallbladder: There are multiple gallbladder calculi. The gallbladder is mildly distended. There is trace pericholecystic edema. Clinical correlation in regards to acute cholecystitis is recommended. Spleen: The spleen is borderline enlarged measuring 11 cm in length. Pancreas: Unremarkable. Adrenal glands: Unremarkable. Kidneys: There are subcentimeter renal hypodensities, likely representing tiny cysts. Bowel: There are postsurgical changes within the colon. There are no transition zones to indicate a bowel obstruction. There is a moderate amount of stool within the rectosigmoid. Peritoneum: There is no intraperitoneal free air or abdominal ascites. Vasculature: The abdominal aorta is normal in course and caliber. Adenopathy: None. Pelvic viscera: The prostate is enlarged. There are small fat-containing left inguinal hernia. Air within the bladder, possibly iatrogenic. Skeletal structures: No destructive osseous lesions are seen. IMPRESSION: 1. Cholelithiasis. Mild gallbladder distention, and minimal infiltration of the pericholecystic fat. Clinical correlation in regards to acute cholecystitis is recommended 2. Small hiatal hernia. Posterior gastric diverticulum. 3. Prostamegaly. 4. Air within the bladder, possibly iatrogenic 5. No evidence of bowel obstruction. No evidence of free air 6. Lingular and left lower lobe airspace opacities, possibly representing a pneumonitis 7. Moderate amount stool within the rectosigmoid. Electronically signed by: Ankit Encarnacion M.D. 11/20/2016 1:52 PM
[2016-11-20] MEDS ORDERED: LEVOFLOXACIN / D5W 750 MG in PREMIXED IN D5W 150 ML IV SCH (14:00)
[2016-11-20 16:58] LABS: POTASSIUM 4.7 mmol/L (3.5-5.1)
[2016-11-20 17:03] LABS: PHOSPHORUS 2.3 mg/dl (2.5-4.9)
[2016-11-20] MEDS: TRAMADOL HCL 50 MG TAB PO PRN (18:28)
[2016-11-20] MEDS ORDERED: TAP WATER ENEMA PR ONE (18:44)
[2016-11-20] MEDS ORDERED: ACETAMINOPHEN IV 100 ML IV PRN (18:45)
[2016-11-20] MEDS ORDERED: IMIPENEM/CILASTATIN CONSULT ACTIVE PRN (19:00)
[2016-11-20] MEDS ORDERED: IMIPENEM/CILASTATIN IV 500 MG in DEXTROSE 5% 100ML 100 ML IV ONE (19:00)
[2016-11-20] MEDS: D5W AND 1/2NSS 1,000 ML IV SCH (19:28)
[2016-11-20] MEDS: ALFUZosin TAB 10 MG TAB PO SCH (19:42)
[2016-11-20] MEDS: ROPINIROLE HCL 1 MG TAB PO SCH (19:42)
--- NOTE | 2016-11-20 21:44 | Progress Note ---
Medicine Progress Note Date & Time of Visit: Nov 20, 2016 at 11:00 . Subjective No fever. No chest pain. Occasional nonproductive cough. No SOB. Increasing abdominal distention and generalized abdominal discomfort. Bit nauseated. No emesis. Passing some formed stool. Voiding without difficulty. . Objective Last 8 Hrs Date Time Temp Pulse Resp B/P Pulse Ox O2 Delivery O2 Flow Rate FiO2 11/20/16 20:23 36.8 87 20 107/68 95 Room Air 11/20/16 20:00 Room Air 11/20/16 16:45 36.7 89 18 93/57 94 Room Air 11/20/16 16:00 Room Air Physical Exam: General- moderate discomfort, no acute distress Eyes- anicteric Neck- no JVD Lungs- few basilar rales Heart- irregular, no gallop Abdomen- + BS, distended, soft, diffuse moderate tenderness without rebound or guarding Extremities- trace pretibial edema, no calf tenderness Neuro- alert, oriented . Laboratory Results: Last 24 Hours Test 11/20/16 06:56 11/20/16 16:14 White Blood Count 6.67 K/uL Red Blood Count 4.59 M/uL Hemoglobin 12.7 g/dL Hematocrit 38.5 % Mean Corpuscular Volume 83.9 fL Mean Corpuscular Hemoglobin 27.7 pg Mean Corpuscular Hemoglobin Concent 33.0 g/dl RDW Standard Deviation 41.4 fL RDW Coefficient of Variation 13.6 % Platelet Count 134 K/uL Mean Platelet Volume 10.0 fL Prothrombin Time 38.8 SECONDS Prothromb Time International Ratio 3.4 Sodium Level 139 mmol/L Potassium Level 4.0 mmol/L 4.7 mmol/L Chloride Level 105 mmol/L Carbon Dioxide Level 27 mmol/L Anion Gap 7.0 mmol/L Blood Urea Nitrogen 19 mg/dl Creatinine 1.10 mg/dl Est Creatinine Clear Calc Drug Dose 47.4 ml/min Estimated GFR () 73.6 Estimated GFR (Non- 63.5 BUN/Creatinine Ratio 16.8 Random Glucose 104 mg/dl Calcium Level 7.7 mg/dl Phosphorus Level 1.8 mg/dl 2.3 mg/dl Magnesium Level 2.2 mg/dl Total Bilirubin 0.6 mg/dl Aspartate Amino Transf (AST/SGOT) 20 U/L Alanine Aminotransferase (ALT/SGPT) 19 U/L Alkaline Phosphatase 41 U/L Total Protein 5.5 gm/dl Albumin 2.5 gm/dl Globulin 3.0 gm/dl Albumin/Globulin Ratio 0.8 Procalcitonin 3.22 ng/mL Assessment & Plan SEPTIC SHOCK Presented to Emergency Department at [facility] last night with confusion, tachycardia, hypotension. Had developed nausea, vomiting, diarrhea approximately 24 hours prior to presentation. Met criteria for sepsis @ [facility]- tachycardia, hypotension, leukopenia, altered mental status. 3-hour and 6 hour bundled sepsis care performed at [facility] prior to transfer: Blood cultures obtained. Lactate < 2. Broad-spectrum antibiotics (levofloxacin and piperacillin/tazobactam) administered. Received fluid resuscitation with 3 L normal saline. Persistent hypotension despite fluid resuscitation. Started on norepinephrine infusion for septic shock. Hemodynamics improved by the time patient arrived to [facility]. Received IV hydrocortisone due to chronic steroid therapy. Norepinephrine discontinued. Received adequate fluid resuscitation @ [facility]. Procalcitonin elevated at 7.2. Source of sepsis uncertain, probably GI. Stool 11/19/16 negative for C diff. Procalcitonin today 3.22. Continue broad-spectrum antibiotic coverage with daptomycin, levofloxacin, aztreonam pending culture data. Increasing abdominal distention and discomfort. Check CT. ID consulted. ALTERED MENTAL STATUS Family noted increasing confusion yesterday, prompting return to ED at [facility]. Probable encephalopathy secondary to sepsis. Had closed head injury with apparent concussion on 11/10. Follow-up CT head negative for SDH or other intracranial hemorrhage. CHRONIC ATRIAL FLUTTER Rate usually controlled without medications. Rapid ventricular response ED at [facility]. Ventricular rate now in the 80s to 90s. Continue anticoagulation with warfarin. CHF / PULMONARY EDEMA Chest x-ray shows pulmonary edema. History of hypertensive heart disease and diastolic dysfunction, but not requiring chronic diuretic therapy. Received fluid resuscitation for septic shock as outlined above. Probable acute left ventricular diastolic heart failure. Follow symptoms, exam, chest films. Diurese PRN. Echocardiogram - normal LV wall motion and systolic function; grade II diastolic dysfunction. HISTORY OF HYPERTENSION Not taking any antihypertensive medications at this time. Follow. CKD III Serum creatinine 1.4 on admission. Creatinine today = 1.1. Avoid potential nephrotoxins when able. HYPOPHOSPHATEMIA Serum phosphorus as low as 1.6. Received replacement. Phosphorus today = 1.8. Follow. OSTEOARTHRITIS/CHRONIC PREDNISONE THERAPY Received IV hydrocortisone due to septic shock. Transition to prednisone 5 mg daily as condition allows. DYSLIPIDEMIA Hold rosuvastatin while receiving daptomycin. VTE PROPHYLAXIS / HISTORY OF PE History of pulmonary embolism. On chronic warfarin therapy for atrial fibrillation/flutter and history of pulmonary embolism. INR 2.1. SCD's. Continue warfarin. Ambulate when able. RESUSCITATION STATUS Full code as detailed in H&P. DISPOSITION Discharge disposition to be determined, but hopefully discharge to home. Family Medicine follow-up with Dr. Hu. Cardiology follow-up with Dr. Rainey. Components of this document were electronically copied and updated from the last documentation created by the undersigned in order to maintain a complete, accurate, and current record. Any portion of this document created by another author, if any, will be attributed to them. I certify that the record accurately reflects the patient's current status and services provided on the date of service. ADDENDUM: CT demonstrated: cholelithiasis, mild GB distention, minimal pericholecystic stranding small hiatal hernia prostamegaly air within bladder lingular and LLL airspace opacities- atelectasis vs infiltrate moderate stool in rectosigmoid no free air or bowel obstruction May have cholecystitis. Continue levofloxacin and daptomycin. Add imipenem / cilastatin for gram neg + anaerobic coverage. DC aztreonam. Check HIDA scan. Consult General Surgery. Spouse called and given update. . Current Inpatient Medications: Current Inpatient Medications Medications (Trade) Dose Ordered Sig/Deena Route Start Time Stop Time Status Last Admin Dose Admin Norepinephrine Bitartrate/ Dextrose (Levophed Inj/ D5W 500ml) 508 ml @ 0 mls/hr Q0M IV 11/18/16 09:49 12/18/16 09:48 Pantoprazole Sodium (Protonix Tab) 40 mg QAM PO 11/19/16 09:00 12/19/16 08:59 11/20/16 09:05 40 MG Ropinirole HCl (Requip Tab) 1 mg HS PO 11/18/16 21:00 12/18/16 20:59 11/20/16 19:42 1 MG Tramadol HCl 50 mg 50 mg Q8 PRN PO 11/18/16 14:00 12/18/16 13:59 11/20/16 18:28 50 MG Levofloxacin 750 mg/Prmx 150 ml @ 100 mls/hr Q2D@1400 IV 11/20/16 14:00 11/28/16 23:59 11/20/16 15:49 100 MLS/HR Daptomycin/Sodium Chloride (Cubicin IV/Nss 50ml) 58.5 ml @ 100 mls/hr Q24H IV 11/19/16 14:00 11/27/16 14:36 11/20/16 13:53 100 MLS/HR Daptomycin (Consult) 1 ea UD PRN N/A 11/18/16 13:15 12/18/16 13:14 Levofloxacin (Consult) 1 ea UD PRN N/A 11/18/16 13:15 12/18/16 13:14 Alfuzosin HCl (Uroxatral Tab) 10 mg QPM PO 11/19/16 21:00 12/19/16 20:59 11/20/16 19:42 10 MG Ioversol 100 ml 100 ml UD PRN IV 11/20/16 13:00 11/24/16 12:59 Acetaminophen (Ofirmev Iv) 100 ml @ 400 mls/hr Q8H PRN IV 11/20/16 18:45 12/20/16 18:44 11/20/16 19:42 400 MLS/HR Miscellaneous 1 ea 1 ea DAILY HI 11/21/16 09:00 12/21/16 08:59 Imipenem/ Cilastatin Sodium 500 mg/Dextrose 110 ml @ 100 mls/hr Q8H IV 11/21/16 04:00 12/01/16 03:59 Dextrose/Sodium Chloride 1,000 ml @ 150 mls/hr Q6H40M IV 11/20/16 18:45 12/20/16 18:44 11/20/16 19:28 150 MLS/HR Hydrocortisone Sodium Succinate/ Syringe (Solu-Cortef IV/ Syringe) 1 ml @ 4 mls/min Q8 IV 11/20/16 22:00 12/20/16 21:59 Imipenem/ Cilastatin Sodium (Consult) 1 ea UD PRN N/A 11/20/16 19:00 12/20/16 18:59
[2016-11-20] MEDS: HYDROCORTISONE IV 50 MG in SYRINGE 0 ML IV SCH (22:13)
[2016-11-21] VITALS (7 sets, daily range): BP systolic 102–128; BP diastolic 67–83; PULSE 67–82; TEMP 36.4–37; O2SAT 94–97
[2016-11-21] MEDS: D5W AND 1/2NSS 1,000 ML IV SCH ×3 (02:32→15:32)
[2016-11-21] MEDS: IMIPENEM/CILASTATIN IV 500 MG in DEXTROSE 5% 100ML 100 ML IV SCH ×3 (03:58→20:00)
[2016-11-21] MEDS: HYDROCORTISONE IV 50 MG in SYRINGE 0 ML IV SCH ×2 (06:03→14:09)
[2016-11-21 06:52] LABS: HEMATOCRIT 34.6 % (42-52); MEAN CELL VOLUME 82.8 fL (80-100); MEAN CORPUSCULAR HEMOGLOBIN 28.5 pg (25-34); MEAN CORPUSCULAR HGB CONC 34.4 g/dl (32-36); MEAN PLATELET VOLUME 9.7 fL (7.4-10.4); PLATELET COUNT 124 K/uL (130-400); RED BLOOD COUNT 4.18 M/uL (4.7-6.1); WHITE BLOOD COUNT 8.07 K/uL (4.8-10.8)
[2016-11-21 07:04] LABS: INR 4.8 (0.9-1.1); PROTHROMBIN TIME (PATIENT) 55.1 SECONDS (9.0-12.0)
[2016-11-21 07:29] LABS: ALB/GLOB RATIO 0.8 (0.9-2); BUN/CREATININE RATIO 13.9 (10-20); CALCIUM 7.6 mg/dl (8.5-10.1); CREATININE 0.8 mg/dl (0.60-1.40); MAGNESIUM 2.1 mg/dl (1.8-2.4); PHOSPHORUS 2.5 mg/dl (2.5-4.9); POTASSIUM 4.2 mmol/L (3.5-5.1)
[2016-11-21] MEDS ORDERED: TAP WATER ENEMA PR PRN (07:41)
[2016-11-21] MEDS: PANTOprazole INJ 40 MG in SYRINGE 0 ML IV SCH ×2 (08:15→20:00)
[2016-11-21] MEDS ORDERED: TAP WATER ENEMA PR SCH (09:00)
--- NOTE | 2016-11-21 12:16 | DIAGNOSTIC IMAGING REPORT ---
NUCLEAR MEDICINE HEPATOBILIARY SCAN CLINICAL HISTORY: sepsis, cholelithiasis COMPARISON STUDY: CT scan dated 11/20/2016 FINDINGS: The patient was injected with 5.5 mCi of technetium 99m Choletec. Sequential anterior imaging was performed. The gallbladder was first visualized on the 25 minute image. Hepatic excretion appeared unremarkable. There was normal passage of activity into small bowel. IMPRESSION: No evidence of cystic duct obstruction Electronically signed by: Ankit Encarnacion M.D. 11/21/2016 12:14 PM
--- NOTE | 2016-11-21 12:21 | DIAGNOSTIC IMAGING REPORT ---
CHEST 2 VIEWS ROUTINE CLINICAL HISTORY: sepsis, possible pneumonia COMPARISON STUDY: 11/19/2016 FINDINGS: The heart is enlarged. There are postsurgical changes of a midline sternotomy and bivalvular replacement. There is mild interstitial thickening similar to the prior study. There are scattered subcentimeter pulmonary nodules. There are stable left basilar interstitial opacities. There is blunting of the posterior costophrenic angles suggesting trace effusions. IMPRESSION: 1. Interstitial thickening with stable left basilar interstitial opacities. 2. Scattered subcentimeter pulmonary nodules. 3. Suspected trace pleural effusions 4. Cardiomegaly Electronically signed by: Ankit Encarnacion M.D. 11/21/2016 12:20 PM
--- NOTE | 2016-11-21 12:48 | DIAGNOSTIC IMAGING REPORT ---
ADDENDUM Addendum: This study was reviewed with Dr. Gilbert. Sclerotic foci with trabecular coarsening and cortical thickening within the pelvis is nonspecific. 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 Electronically signed by: Raza Robert M.D. 11/21/2016 2:14 PM ORIGINAL REPORT ABDOMINAL SERIES CLINICAL HISTORY: Abdominal pain. COMPARISON STUDY: CT of the abdomen and pelvis April. FINDINGS: There is no free air. Oral contrast is noted within the distal colon and rectum from recent CT. Therefore there is no evidence for a high-grade obstruction. Numerous sclerotic lesions suggestive blastic metastases. A few prominent loops of bowel are noted. There is no convincing evidence for a bowel obstruction. IMPRESSION: 1. Several prominent loops of small and large bowel. However, contrast from recent CT is now within the distal colon and rectum and therefore there is no evidence for a high-grade obstruction. A bowel obstruction is considered unlikely. 2. 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 Electronically signed by: Raza Rboert M.D. 11/21/2016 12:46 PM
[2016-11-21] MEDS: DAPTOmycin IV 425 MG in SODIUM CHLORIDE 0.9% 50ML 50 ML IV SCH (13:16)
[2016-11-21] MEDS ORDERED: LEVOFLOXACIN / D5W 750 MG in PREMIXED IN D5W 150 ML IV SCH (14:00)
--- NOTE | 2016-11-21 15:34 | SURGICAL CONSULTATION ---
DATE OF CONSULTATION: 11/21/2016 INPATIENT SURGICAL CONSULTATION ATTENDING AND REFERRING PHYSICIAN: Randy Gilbert MD. FAMILY PHYSICIAN: Dr. Romero. REASON FOR CONSULTATION: Possible acute cholecystitis. SOURCE: The patient's and chart. PATIENT'S CHIEF COMPLAINT: Confusion. HISTORY OF PRESENT ILLNESS: Mr. Robles is a 81-year-old male who previously has not had any gastrointestinal complaints. He was a transfer from [place] for sepsis. His story begins after he ate a hamburger wrapped in canales following which he developed abdominal pain, distention, bloating, cramping, nausea, vomiting and diarrhea. The pain was generalized throughout his abdomen, it was crampy, it was somewhat better if he would lay on his side and pass some gas, this was associated with massive bouts of both emesis as well as diarrhea. He was initially taken to [facility] by his and was found to be dehydrated. He was subsequently discharged home after the treatment for the dehydration. During the day his symptoms persisted. He was started to note increasing confusion. His family brought him back to the Emergency Room at [place], upon arrival there he was tachycardic and hypotensive, his blood pressure was 79/59, he did appear to be septic and his serum lactate was less than 2. He received IV antibiotics and fluid resuscitation and subsequently was transferred to [facility] for continued care. He was on a Levophed drip for a short period of time. He now is feeling much better. He notes that his abdominal pain has completely resolved. He has had no further nausea and vomiting. He is able to tolerate a diet. He is still noticing some mild distention and is still mildly tender if his abdomen is pushed on. He has no known history of gallbladder problems in the past. PAST MEDICAL HISTORY: Notable for chronic aFib for which he is on Coumadin. His current INR is 4.8. He has benign prostatic hypertrophy, coronary artery disease, gallstones. He is on prednisone 5 mg a day for osteoarthritis, chronic kidney disease stage III, COPD. Diverticular disease of the colon for which he says he is status post colon resection x2, one for tubulovillous adenoma. He has dyslipidemia, history of prostate cancer in 2007, history of pulmonary embolism as well as hypertension, osteoarthritis, restless legs, history of ventricular tachycardia and spinal stenosis. 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 FAMILY HISTORY: Notable for diabetes, esophageal cancer in his brother; there is coronary artery disease in his father. SOCIAL HISTORY: Denies any tobacco, uses alcohol occasionally. He is retired. He is , accompanied by his today. ALLERGIES: PENICILLIN. HOME MEDICATIONS: Documented in his chart. These include alfuzosin, bilberry, Coenzyme Q10, Nexium, Claritin, magnesium, prednisone, Actonel, ropinirole, Crestor and Coumadin. REVIEW OF SYSTEMS: CONSTITUTIONAL: Notable for fever and chills initially, this is now resolved, no weight loss. EYES: He has noticed worsening of his vision associated with a closed head injury. ENT: He has some mild hearing loss. RESPIRATORY: Negative. CARDIOVASCULAR: Currently negative. ABDOMINAL: See HPI. MUSCULOSKELETAL: Notable for joint pains. NEUROLOGIC: Notable for the confusion. ENDOCRINE: Notable for fatigue. HEMATOLOGIC: Notable for the Coumadin use. INTEGUMENTARY: Negative. PHYSICAL EXAMINATION: GENERAL: He is a healthy man currently sitting in a chair, in no acute distress. VITAL SIGNS: His blood pressure is 128/83, pulse 77, respirations 18, 96% on room air, temperature is 36.7. HEENT: His sclerae are anicteric. Conjunctivae not injected. NECK: Supple. Trachea midline. HEART: S1 and S2 are present. No jugular venous distention. LUNGS: Clear to auscultation bilaterally. No use of accessory muscles. ABDOMEN: Soft. He is very mildly distended. He is mildly tender in the left lower quadrant, mildly tender in the right lateral, upper abdomen, but no evidence of a Mclaughlin sign, no guarding, no rebound. NEUROLOGIC: He is alert, oriented x3. Cranial nerves grossly intact. PSYCHIATRIC: Mood and affect appear normal. LABORATORY STUDIES: Reviewed. His current white blood cell count is 8.7. His H\T\H 11.9 and 34.6, platelets are 124. He has normal liver function tests. His lactate is normal. His INR currently is up to 4.8. IMAGING STUDIES: Reviewed. He has an abdominal pelvic CT scan which showed multiple gallbladder calculi with mildly distended gallbladder. He has had a HIDA scan done this morning which is normal with no evidence of acute cholecystitis. ASSESSMENT AND PLAN: Patrick Robles is a 81-year-old gentleman on chronic Coumadin therapy, who is currently anticoagulated with his INR being 4.8, who appears to possibly have had a bout of a biliary colic versus enteritis. Given that his HIDA scan is normal, it is difficult to attribute his sepsis to his gallbladder. At this point; however, his symptoms do appear to be resolving and with no evidence of acute cholecystitis on his imaging. I would be quite comfortable with feeding him and entertaining discharge when he is medically stable. We did discuss the symptoms of gallbladder disease and I did ask him to attempt to stand a low fat diet. Should he start to develop any symptoms, he was encouraged to seek surgical evaluation so that potentially his gallbladder could be removed electively. All of this was discussed both with the patient and his as well as Dr. Gilbert. We will sign off. Please call if there are any questions. Thank you for this consultation. JEANNA
[2016-11-21] MEDS ORDERED: PHYTONADIONE 5 MG TAB PO ONE (17:30)
--- NOTE | 2016-11-21 17:45 | Progress Note ---
Medicine Progress Note Date & Time of Visit: Nov 21, 2016 at ~ 14:00 . Subjective No fever or chills. Occasional congested cough, no SOB. No chest pain. Nausea and vomiting resolved. Passed mixture of loose and formed stool after enema last evening. Less bloating. No abdominal pain. . Objective Last 8 Hrs Date Time Temp Pulse Resp B/P Pulse Ox O2 Delivery O2 Flow Rate FiO2 11/21/16 16:00 Room Air 11/21/16 15:36 36.9 77 18 118/76 97 11/21/16 13:02 77 18 128/83 96 Room Air 11/21/16 12:00 Room Air Physical Exam: General- no acute distress Eyes- anicteric Neck- no JVD Lungs- few rales left base Heart- irregular, no gallop Abdomen- + BS, less distended, soft, nontender Extremities- trace pretibial edema, no calf tenderness Neuro- alert, oriented . Laboratory Results: Last 24 Hours Test 11/21/16 06:43 White Blood Count 8.07 K/uL Red Blood Count 4.18 M/uL Hemoglobin 11.9 g/dL Hematocrit 34.6 % Mean Corpuscular Volume 82.8 fL Mean Corpuscular Hemoglobin 28.5 pg Mean Corpuscular Hemoglobin Concent 34.4 g/dl RDW Standard Deviation 40.9 fL RDW Coefficient of Variation 13.4 % Platelet Count 124 K/uL Mean Platelet Volume 9.7 fL Prothrombin Time 55.1 SECONDS Prothromb Time International Ratio 4.8 Sodium Level 139 mmol/L Potassium Level 4.2 mmol/L Chloride Level 106 mmol/L Carbon Dioxide Level 24 mmol/L Anion Gap 9.0 mmol/L Blood Urea Nitrogen 11 mg/dl Creatinine 0.80 mg/dl Est Creatinine Clear Calc Drug Dose 65.1 ml/min Estimated GFR () 98.5 Estimated GFR (Non- 85.0 BUN/Creatinine Ratio 13.9 Random Glucose 128 mg/dl Lactic Acid Level 1.0 mmol/L Calcium Level 7.6 mg/dl Phosphorus Level 2.5 mg/dl Magnesium Level 2.1 mg/dl Total Bilirubin 0.5 mg/dl Aspartate Amino Transf (AST/SGOT) 19 U/L Alanine Aminotransferase (ALT/SGPT) 16 U/L Alkaline Phosphatase 36 U/L Total Protein 5.4 gm/dl Albumin 2.4 gm/dl Globulin 3.0 gm/dl Albumin/Globulin Ratio 0.8 Procalcitonin 1.27 ng/mL Assessment & Plan SEPTIC SHOCK Presented to Emergency Department at [facility] last night with confusion, tachycardia, hypotension. Had developed nausea, vomiting, diarrhea approximately 24 hours prior to presentation. Symptoms starting after eating cheeseburger in restaurant. Grandson who ate the same food developed GI symptoms as well. Met criteria for sepsis @ [facility]- tachycardia, hypotension, leukopenia, altered mental status. 3-hour and 6 hour bundled sepsis care performed at [facility] prior to transfer: Blood cultures obtained. (negative as of 11/21/16 10:00) Lactate < 2. Broad-spectrum antibiotics (levofloxacin and piperacillin/tazobactam) administered. Received fluid resuscitation with 3 L normal saline. Persistent hypotension despite fluid resuscitation. Started on norepinephrine infusion for septic shock. Hemodynamics improved by the time patient arrived to [facility]. Received IV hydrocortisone due to chronic steroid therapy. Norepinephrine discontinued. Received adequate fluid resuscitation @ [facility]. Procalcitonin elevated at 7.2. Source of sepsis uncertain, probably GI, possible pneumonia. Stool 11/19/16 negative for C diff. Procalcitonin 7.2 --> 3.22 --> 1.27. CT abdomen demonstrated cholelithiasis, pericholecystic fluid + stranding. HIDA scan neg. General Surgery consulted. Does not appear to have cholecystitis; no indication for surgery at this time. Chest x-ray 11/[address] 11/20 demonstrated densities LLL, ? infiltrates vs atelectasis. Continue broad-spectrum antibiotic coverage with daptomycin, levofloxacin, imipenem. ALTERED MENTAL STATUS Family noted increasing confusion yesterday, prompting return to ED at [facility]. Probable encephalopathy secondary to sepsis. Had closed head injury with apparent concussion on 11/10. Follow-up CT head negative for SDH or other intracranial hemorrhage. CHRONIC ATRIAL FLUTTER Rate usually controlled without medications. Rapid ventricular response ED at [facility]. Ventricular rate now in the 80s to 90s. INR elevated due to acute illness, antibiotics, etc. Vitamin K x 1. Titrate warfarin. CHF / PULMONARY EDEMA Chest x-ray showed pulmonary edema. History of hypertensive heart disease and diastolic dysfunction, but not requiring chronic diuretic therapy. Echocardiogram - normal LV wall motion and systolic function; grade II diastolic dysfunction. Received fluid resuscitation for septic shock as outlined above. Probable acute left ventricular diastolic heart failure / fluid overload. Diurese PRN. HISTORY OF HYPERTENSION Not taking any antihypertensive medications at this time. Follow. CKD III Serum creatinine 1.4 on admission. Creatinine today = 0.80. Avoid potential nephrotoxins when able. HYPOPHOSPHATEMIA Serum phosphorus as low as 1.6. Received replacement. Phosphorus today = 2.5. Follow. OSTEOARTHRITIS/CHRONIC PREDNISONE THERAPY Receiving IV hydrocortisone due to septic shock. Taper hydrocortisone and transition to prednisone 5 mg daily as condition allows. DYSLIPIDEMIA Hold rosuvastatin while receiving daptomycin. PELVIC SKELETAL LESIONS Sclerotic lesions of pelvis noted on obstruction series 11/21/16. Reviewed with Radiology. Previous imaging reviewed. 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 Bone scan 10/06/2008 showed increased uptake in the pelvis suspicious for metastatic disease. 8 year survival favors benign process. PULMONARY DENSITIES Several pulmonary densities noted on chest x-ray 11/21/16. Some were previously noted on imaging in the past, some new. Will recommend f/u dedicated CT chest in 4-6 weeks after resolution of acute illness. VTE PROPHYLAXIS / HISTORY OF PE History of pulmonary embolism. On chronic warfarin therapy for atrial fibrillation/flutter and history of pulmonary embolism. INR 1.9 --> 4.8. SCD's. Titrate warfarin. Ambulate. RESUSCITATION STATUS Full code as detailed in H&P. DISPOSITION Discharge disposition to be determined, but hopefully discharge to home. Family Medicine follow-up with Dr. Hu. Cardiology follow-up with Dr. Raniey. visiting and given update. Components of this document were electronically copied and updated from the last documentation created by the undersigned in order to maintain a complete, accurate, and current record. Any portion of this document created by another author, if any, will be attributed to them. I certify that the record accurately reflects the patient's current status and services provided on the date of service. . Consultants: RENEE ID General Surgery . Procedures: cardiac monitoring IV meds IV fluids echocardiogram CT head CT abdomen + pelvis HIDA . Current Inpatient Medications: Current Inpatient Medications Medications (Trade) Dose Ordered Sig/Deena Route Start Time Stop Time Status Last Admin Dose Admin Norepinephrine Bitartrate/ Dextrose (Levophed Inj/ D5W 500ml) 508 ml @ 0 mls/hr Q0M IV 11/18/16 09:49 12/18/16 09:48 Ropinirole HCl (Requip Tab) 1 mg HS PO 11/18/16 21:00 12/18/16 20:59 11/20/16 19:42 1 MG Tramadol HCl 50 mg 50 mg Q8 PRN PO 11/18/16 14:00 12/18/16 13:59 11/20/16 18:28 50 MG Daptomycin/Sodium Chloride (Cubicin IV/Nss 50ml) 58.5 ml @ 100 mls/hr Q24H IV 11/19/16 14:00 11/27/16 14:36 11/21/16 13:16 100 MLS/HR Daptomycin (Consult) 1 ea UD PRN N/A 11/18/16 13:15 12/18/16 13:14 Levofloxacin (Consult) 1 ea UD PRN N/A 11/18/16 13:15 12/18/16 13:14 Alfuzosin HCl (Uroxatral Tab) 10 mg QPM PO 11/19/16 21:00 12/19/16 20:59 11/20/16 19:42 10 MG Ioversol 100 ml 100 ml UD PRN IV 11/20/16 13:00 11/24/16 12:59 Acetaminophen 100 ml @ 400 mls/hr Q8H PRN IV 11/20/16 18:45 12/20/16 18:44 11/20/16 19:42 400 MLS/HR Imipenem/ Cilastatin Sodium/ Dextrose (Primaxin Iv/D5 100ml) 110 ml @ 100 mls/hr Q8H IV 11/21/16 04:00 12/01/16 03:59 11/21/16 14:09 100 MLS/HR Imipenem/ Cilastatin Sodium 1 ea 1 ea UD PRN N/A 11/20/16 19:00 12/20/16 18:59 Pantoprazole Sodium/Syringe (Protonix Inj/ Syringe) 10 ml @ 5 mls/min DAILY@, IV 11/21/16 09:00 12/21/16 08:59 11/21/16 08:15 5 MLS/MIN Miscellaneous 1 ea 1 ea DAILY PRN PA 11/21/16 07:41 12/21/16 07:40 Levofloxacin 750 mg/Prmx 150 ml @ 100 mls/hr Q24H IV 11/21/16 14:00 11/28/16 13:59 11/21/16 12:29 100 MLS/HR Hydrocortisone Sodium Succinate/ Syringe (Solu-Cortef IV/ Syringe) 0.5 ml @ 4 mls/min Q8 IV 11/21/16 22:00 12/21/16 21:59 UNV Phytonadione (Mephyton Tab) 5 mg NOW ONCE PO 11/21/16 17:30 11/21/16 17:31 UNV
[2016-11-21] MEDS: ROPINIROLE HCL 1 MG TAB PO SCH (20:00)
[2016-11-21] MEDS: ALFUZosin TAB 10 MG TAB PO SCH (20:01)
--- NOTE | 2016-11-21 20:05 | Infectious Disease Progress Nt ---
Progress Note Date of Service Nov 21, 2016. Subjective Pt evaluation today including: conversation w/ patient, physical exam, chart review, lab review, review of studies, conversation w/ outplacement consultant, review of inpatient medication list patient still with some abdominal bloating, slightly better. Passed stool after enema. No fever. Hemodynamically stable overnight. All Other Systems: Reviewed and Negative Medications Current Inpatient Medications Medications (Trade) Dose Ordered Sig/Deena Route Start Time Stop Time Status Last Admin Dose Admin Norepinephrine Bitartrate/ Dextrose (Levophed Inj/ D5W 500ml) 508 ml @ 0 mls/hr Q0M IV 11/18/16 09:49 12/18/16 09:48 Ropinirole HCl (Requip Tab) 1 mg HS PO 11/18/16 21:00 12/18/16 20:59 11/20/16 19:42 1 MG Tramadol HCl 50 mg 50 mg Q8 PRN PO 11/18/16 14:00 12/18/16 13:59 11/20/16 18:28 50 MG Daptomycin/Sodium Chloride (Cubicin IV/Nss 50ml) 58.5 ml @ 100 mls/hr Q24H IV 11/19/16 14:00 11/27/16 14:36 11/21/16 13:16 100 MLS/HR Daptomycin (Consult) 1 ea UD PRN N/A 11/18/16 13:15 12/18/16 13:14 Levofloxacin (Consult) 1 ea UD PRN N/A 11/18/16 13:15 12/18/16 13:14 Alfuzosin HCl (Uroxatral Tab) 10 mg QPM PO 11/19/16 21:00 12/19/16 20:59 11/20/16 19:42 10 MG Ioversol 100 ml 100 ml UD PRN IV 11/20/16 13:00 11/24/16 12:59 Acetaminophen 100 ml @ 400 mls/hr Q8H PRN IV 11/20/16 18:45 12/20/16 18:44 11/20/16 19:42 400 MLS/HR Imipenem/ Cilastatin Sodium/ Dextrose (Primaxin Iv/D5 100ml) 110 ml @ 100 mls/hr Q8H IV 11/21/16 04:00 12/01/16 03:59 11/21/16 14:09 100 MLS/HR Imipenem/ Cilastatin Sodium 1 ea 1 ea UD PRN N/A 11/20/16 19:00 12/20/16 18:59 Pantoprazole Sodium/Syringe (Protonix Inj/ Syringe) 10 ml @ 5 mls/min DAILY@09,21 IV 11/21/16 09:00 12/21/16 08:59 11/21/16 08:15 5 MLS/MIN Miscellaneous 1 ea 1 ea DAILY PRN VT 11/21/16 07:41 12/21/16 07:40 Levofloxacin 750 mg/Prmx 150 ml @ 100 mls/hr Q24H IV 11/21/16 14:00 11/28/16 13:59 11/21/16 12:29 100 MLS/HR Hydrocortisone Sodium Succinate/ Syringe (Solu-Cortef IV/ Syringe) 0.5 ml @ 4 mls/min Q8 IV 11/21/16 22:00 12/21/16 21:59 Objective Vital Signs Date Time Temp Pulse Resp B/P Pulse Ox O2 Delivery O2 Flow Rate FiO2 11/21/16 19:40 37.0 76 18 119/75 95 11/21/16 16:00 Room Air 11/21/16 15:36 36.9 77 18 118/76 97 11/21/16 13:02 77 18 128/83 96 Room Air 11/21/16 12:00 Room Air 11/21/16 08:00 Room Air 11/21/16 07:18 36.7 82 18 111/75 94 Room Air 11/21/16 04:00 Room Air 11/21/16 04:00 36.9 81 16 105/71 94 Room Air 11/21/16 00:00 36.9 82 17 102/67 95 Room Air 11/21/16 00:00 Room Air 11/20/16 20:23 36.8 87 20 107/68 95 Room Air Physical Exam General Appearance: WD/WN, no apparent distress Eyes: normal inspection, EOMI, sclerae normal ENT: normal ENT inspection, pharynx normal Neck: supple, no adenopathy, trachea midline Respiratory/Chest: chest non-tender, lungs clear, normal breath sounds, no respiratory distress Cardiovascular: regular rate, rhythm, no gallop, no murmur Abdomen: normal bowel sounds, non tender, no organomegaly, + distended Extremities: non-tender, no calf tenderness Neurologic/Psychiatric: alert, oriented x 3 Skin: normal color, warm/dry, no rash Laboratory Results Last 24 Hours Test 11/21/16 06:43 White Blood Count 8.07 K/uL Red Blood Count 4.18 M/uL Hemoglobin 11.9 g/dL Hematocrit 34.6 % Mean Corpuscular Volume 82.8 fL Mean Corpuscular Hemoglobin 28.5 pg Mean Corpuscular Hemoglobin Concent 34.4 g/dl RDW Standard Deviation 40.9 fL RDW Coefficient of Variation 13.4 % Platelet Count 124 K/uL Mean Platelet Volume 9.7 fL Prothrombin Time 55.1 SECONDS Prothromb Time International Ratio 4.8 Sodium Level 139 mmol/L Potassium Level 4.2 mmol/L Chloride Level 106 mmol/L Carbon Dioxide Level 24 mmol/L Anion Gap 9.0 mmol/L Blood Urea Nitrogen 11 mg/dl Creatinine 0.80 mg/dl Est Creatinine Clear Calc Drug Dose 65.1 ml/min Estimated GFR () 98.5 Estimated GFR (Non- 85.0 BUN/Creatinine Ratio 13.9 Random Glucose 128 mg/dl Lactic Acid Level 1.0 mmol/L Calcium Level 7.6 mg/dl Phosphorus Level 2.5 mg/dl Magnesium Level 2.1 mg/dl Total Bilirubin 0.5 mg/dl Aspartate Amino Transf (AST/SGOT) 19 U/L Alanine Aminotransferase (ALT/SGPT) 16 U/L Alkaline Phosphatase 36 U/L Total Protein 5.4 gm/dl Albumin 2.4 gm/dl Globulin 3.0 gm/dl Albumin/Globulin Ratio 0.8 Procalcitonin 1.27 ng/mL Assessment and Plan Clinical picture of septic shock with markedly elevated procalcitonin suggestive of acute bacterial process. Has improved with IV abx. HIDA not suggestive of cholecystits. Would continue present Rx for now and will discuss with all involved.
[2016-11-21] MEDS: HYDROCORTISONE IV 25 MG in SYRINGE 0 ML IV SCH (21:14)
[2016-11-22 03:20] VITALS: BP 120/56; PULSE 79; TEMP 36.8; O2SAT 95
[2016-11-22] MEDS: IMIPENEM/CILASTATIN IV 500 MG in DEXTROSE 5% 100ML 100 ML IV SCH ×2 (03:29→12:15)
[2016-11-22] MEDS: HYDROCORTISONE IV 25 MG in SYRINGE 0 ML IV SCH (05:54)
[2016-11-22 07:11] LABS: HEMATOCRIT 32.9 % (42-52); MEAN CORPUSCULAR HEMOGLOBIN 27.9 pg (25-34); MEAN PLATELET VOLUME 9.5 fL (7.4-10.4); PLATELET COUNT 130 K/uL (130-400); RED BLOOD COUNT 4.01 M/uL (4.7-6.1); WHITE BLOOD COUNT 6.94 K/uL (4.8-10.8)
[2016-11-22 07:17] LABS: INR 2.3 (0.9-1.1); PROTHROMBIN TIME (PATIENT) 25.6 SECONDS (9.0-12.0)
[2016-11-22 07:35] LABS: BUN/CREATININE RATIO 16.2 (10-20); CALCIUM 8.1 mg/dl (8.5-10.1); CREATININE 0.94 mg/dl (0.60-1.40); MAGNESIUM 2.1 mg/dl (1.8-2.4); POTASSIUM 3.9 mmol/L (3.5-5.1)
[2016-11-22 07:39] LABS: ALB/GLOB RATIO 0.9 (0.9-2); PHOSPHORUS 2.4 mg/dl (2.5-4.9)
[2016-11-22 08:02] VITALS: BP 126/79; PULSE 99; TEMP 37.1; O2SAT 94
[2016-11-22] MEDS: PANTOprazole INJ 40 MG in SYRINGE 0 ML IV SCH (08:10)
[2016-11-22 11:19] VITALS: BP 126/79; PULSE 67; TEMP 36.4; O2SAT 96
[2016-11-22] MEDS ORDERED: LEVOFLOXACIN 750 MG TAB PO ONE (13:52)
[2016-11-22 15:20] VITALS: BP 132/69; PULSE 71; TEMP 36.6; O2SAT 95
[2016-11-22] MEDS ORDERED: WARFARIN SOD 2.5 MG TAB PO SCH (16:00)
[2016-11-22] MEDS ORDERED: ALUMINUM/MAGNESIUM/SIMETH (MAALOX MAX) 30 ML UDC PO PRN (16:00)
[2016-11-22] MEDS: METRONIDAZOLE 500 MG TAB PO SCH ×2 (17:10→21:20)
--- NOTE | 2016-11-22 18:04 | Progress Note ---
Medicine Progress Note Date & Time of Visit: Nov 22, 2016 at 13:30 . Subjective No fever. No chest pain. Cough improved. No SOB. Still has bloating and flatulence, but no nausea, vomiting, abdominal pain. Last BM evening 11/20 after enema. Voiding without difficulty. . Objective Last 8 Hrs Date Time Temp Pulse Resp B/P Pulse Ox O2 Delivery O2 Flow Rate FiO2 11/22/16 16:00 Room Air 11/22/16 15:20 36.6 71 22 132/69 95 Room Air 11/22/16 12:00 Room Air 11/22/16 11:19 36.4 67 20 126/79 96 Room Air Physical Exam: General- sitting in chair; no acute distress Eyes- anicteric Neck- no JVD Lungs- few rales left base Heart- irregular, rate controlled, no gallop appreciated Abdomen- + BS, less distended, soft, nontender Extremities- trace pretibial edema, no calf tenderness Neuro- alert, oriented . Laboratory Results: Last 24 Hours Test 11/22/16 06:45 White Blood Count 6.94 K/uL Red Blood Count 4.01 M/uL Hemoglobin 11.2 g/dL Hematocrit 32.9 % Mean Corpuscular Volume 82.0 fL Mean Corpuscular Hemoglobin 27.9 pg Mean Corpuscular Hemoglobin Concent 34.0 g/dl RDW Standard Deviation 40.2 fL RDW Coefficient of Variation 13.2 % Platelet Count 130 K/uL Mean Platelet Volume 9.5 fL Prothrombin Time 25.6 SECONDS Prothromb Time International Ratio 2.3 Sodium Level 139 mmol/L Potassium Level 3.9 mmol/L Chloride Level 105 mmol/L Carbon Dioxide Level 26 mmol/L Anion Gap 8.0 mmol/L Blood Urea Nitrogen 15 mg/dl Creatinine 0.94 mg/dl Est Creatinine Clear Calc Drug Dose 55.4 ml/min Estimated GFR () 89.0 Estimated GFR (Non- 76.8 BUN/Creatinine Ratio 16.2 Random Glucose 97 mg/dl Calcium Level 8.1 mg/dl Phosphorus Level 2.4 mg/dl Magnesium Level 2.1 mg/dl Total Bilirubin 0.6 mg/dl Direct Bilirubin 0.2 mg/dl Aspartate Amino Transf (AST/SGOT) 20 U/L Alanine Aminotransferase (ALT/SGPT) 18 U/L Alkaline Phosphatase 37 U/L Total Protein 5.2 gm/dl Albumin 2.4 gm/dl Globulin 2.8 gm/dl Albumin/Globulin Ratio 0.9 Assessment & Plan SEPTIC SHOCK Presented to Emergency Department at [facility] last night with confusion, tachycardia, hypotension. Had developed nausea, vomiting, diarrhea approximately 24 hours prior to presentation. Symptoms starting after eating cheeseburger in restaurant. Grandson who ate the same food developed GI symptoms as well. Met criteria for sepsis @ [facility]- tachycardia, hypotension, leukopenia, altered mental status. 3-hour and 6 hour bundled sepsis care performed at [facility] prior to transfer: Blood cultures obtained. (negative as of 11/21/16 10:00) Lactate < 2. Broad-spectrum antibiotics (levofloxacin and piperacillin/tazobactam) administered. Received fluid resuscitation with 3 L normal saline. Persistent hypotension despite fluid resuscitation. Started on norepinephrine infusion for septic shock. Hemodynamics improved by the time patient arrived to [facility]. Received IV hydrocortisone due to chronic steroid therapy. Norepinephrine discontinued. Received adequate fluid resuscitation @ [facility]. Procalcitonin elevated at 7.2. Source of sepsis uncertain, probably GI, possible pneumonia. Stool 11/19/16 negative for C diff. Procalcitonin 7.2 --> 3.22 --> 1.27. CT abdomen demonstrated cholelithiasis, pericholecystic fluid + stranding. HIDA scan neg. General Surgery consulted. Does not appear to have cholecystitis; no indication for surgery at this time. Chest x-ray 1/[address] 11/20 demonstrated densities LLL, ? infiltrates vs atelectasis. Has received broad-spectrum antibiotic coverage x 4 days. Afebrile. Hemodynamically stable. Procalcitonin improving. Transition to oral therapy with levofloxacin and metronidazole. ALTERED MENTAL STATUS Family noted increasing confusion yesterday, prompting return to ED at [facility]. Probable encephalopathy secondary to sepsis. Had closed head injury with apparent concussion on 11/10. Follow-up CT head negative for SDH or other intracranial hemorrhage. CHRONIC ATRIAL FLUTTER Rate usually controlled without medications. Rapid ventricular response ED at [facility]. Ventricular rate now in the 80s to 90s. INR fluctuating due to acute illness, variable PO intake, antibiotics. INR today = 2.3 Follow closely and titrate warfarin as necessary. CHF / PULMONARY EDEMA Chest x-ray showed pulmonary edema. History of hypertensive heart disease and diastolic dysfunction, but not requiring chronic diuretic therapy. Echocardiogram - normal LV wall motion and systolic function; grade II diastolic dysfunction. Received fluid resuscitation for septic shock as outlined above. Probable acute left ventricular diastolic heart failure / fluid overload. Diurese PRN. HISTORY OF HYPERTENSION Not taking any antihypertensive medications at this time. Follow. CKD III Serum creatinine 1.4 on admission. Creatinine today = 0.94. Avoid potential nephrotoxins when able. HYPOPHOSPHATEMIA Serum phosphorus as low as 1.6. Received replacement. Phosphorus today = 2.4. Follow. OSTEOARTHRITIS/CHRONIC PREDNISONE THERAPY Received IV hydrocortisone due to septic shock. Tapered steroids and transition to prednisone 5 mg daily as condition allows. DYSLIPIDEMIA Hold rosuvastatin while receiving daptomycin. PELVIC SKELETAL LESIONS Sclerotic lesions of pelvis noted on obstruction series 11/21/16. Reviewed with Radiology. Previous imaging reviewed. 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 Bone scan 10/06/2008 showed increased uptake in the pelvis suspicious for metastatic disease. 8 year survival favors benign process. Will recommend f/u with Oncology. PULMONARY DENSITIES Several pulmonary densities noted on chest x-ray 11/21/16. Some were previously noted on imaging in the past, some new. Will recommend f/u dedicated CT chest in 4-6 weeks after resolution of acute illness. VTE PROPHYLAXIS / HISTORY OF PE History of pulmonary embolism. On chronic warfarin therapy for atrial fibrillation/flutter and history of pulmonary embolism. SCD's. Titrate warfarin. Ambulate. RESUSCITATION STATUS Full code as detailed in H&P. DISPOSITION Discharge disposition to be determined, but hopefully discharge to home. Family Medicine follow-up with Dr. Hu. Cardiology follow-up with Dr. Rainey. visiting and given update. Components of this document were electronically copied and updated from the last documentation created by the undersigned in order to maintain a complete, accurate, and current record. Any portion of this document created by another author, if any, will be attributed to them. I certify that the record accurately reflects the patient's current status and services provided on the date of service. . Consultants: RENEE ID General Surgery . Procedures: cardiac monitoring IV meds IV fluids echocardiogram CT head CT abdomen + pelvis HIDA . Current Inpatient Medications: Current Inpatient Medications Medications (Trade) Dose Ordered Sig/Deena Route Start Time Stop Time Status Last Admin Dose Admin Ropinirole HCl (Requip Tab) 1 mg HS PO 11/18/16 21:00 12/18/16 20:59 11/21/16 20:00 1 MG Tramadol HCl (Ultram Tab) 50 mg Q8 PRN PO 11/18/16 14:00 12/18/16 13:59 11/20/16 18:28 50 MG Alfuzosin HCl (Uroxatral Tab) 10 mg QPM PO 11/19/16 21:00 12/19/16 20:59 11/21/16 20:01 10 MG Ioversol (Optiray 320) 100 ml UD PRN IV 11/20/16 13:00 11/24/16 12:59 Miscellaneous (Tap Water Enema) [address] 11/21/16 07:41 12/21/16 07:40 Pantoprazole Sodium (Protonix Tab) 40 mg QAM PO 11/23/16 09:00 12/23/16 08:59 Prednisone 40 mg 40 mg DAILY PO 11/23/16 09:00 12/23/16 08:59 Hydrocortisone Sodium Succinate/ Syringe (Solu-Cortef IV/ Syringe) 0.5 ml @ 4 mls/min TODAY@2100 ONCE IV 11/22/16 21:00 11/22/16 21:01 Levofloxacin (Levaquin Tab) 750 mg DAILY@11 PO 11/23/16 11:00 11/30/16 10:59 Metronidazole (Flagyl Tab) 500 mg TID PO 11/22/16 14:00 12/02/16 13:59 11/22/16 17:10 500 MG Warfarin Sodium (Coumadin Tab) 2.5 mg DAILY@16 PO 11/22/16 16:00 12/22/16 15:59 11/22/16 17:10 2.5 MG Al Hydrox/Mg Hydrox/Simethicone (Maalox Max Susp) 15 ml Q6H PRN PO 11/22/16 16:00 12/22/16 15:59 11/22/16 16:27 15 ML
[2016-11-22 18:40] LABS: HEMATOCRIT 35.9 % (42-52); MEAN CELL VOLUME 83.5 fL (80-100); MEAN CORPUSCULAR HEMOGLOBIN 28.1 pg (25-34); MEAN CORPUSCULAR HGB CONC 33.7 g/dl (32-36); MEAN PLATELET VOLUME 9.1 fL (7.4-10.4); PLATELET COUNT 138 K/uL (130-400); WHITE BLOOD COUNT 8.25 K/uL (4.8-10.8)
[2016-11-22 18:44] VITALS: BP 132/69; PULSE 71; TEMP 36.6; O2SAT 95
[2016-11-22 19:10] LABS: BUN/CREATININE RATIO 15.5 (10-20); CALCIUM 8.3 mg/dl (8.5-10.1); CREATININE 1.2 mg/dl (0.60-1.40); POTASSIUM 3.9 mmol/L (3.5-5.1)
[2016-11-22 19:13] LABS: ALB/GLOB RATIO 0.8 (0.9-2); PHOSPHORUS 2.2 mg/dl (2.5-4.9)
[2016-11-22] MEDS ORDERED: HYDROCORTISONE IV 25 MG in SYRINGE 0 ML IV ONE (21:00)
[2016-11-22] MEDS: ALFUZosin TAB 10 MG TAB PO SCH (21:20)
[2016-11-22] MEDS: ROPINIROLE HCL 1 MG TAB PO SCH (21:20)
[2016-11-23 00:11] VITALS: BP 120/71; PULSE 84; TEMP 36.6; O2SAT 93
[2016-11-23 06:36] LABS: INR 1.3 (0.9-1.1); PROTHROMBIN TIME (PATIENT) 13.7 SECONDS (9.0-12.0)
[2016-11-23] MEDS: METRONIDAZOLE 500 MG TAB PO SCH ×2 (07:57→13:59)
[2016-11-23] MEDS ORDERED: PANTOprazole SOD 40 MG TAB PO SCH (08:00)
[2016-11-23 08:16] VITALS: BP 115/67; PULSE 72; TEMP 36.6; O2SAT 94
[2016-11-23] MEDS ORDERED: WARFARIN SOD 5 MG TAB PO ONE (09:00)
[2016-11-23] MEDS ORDERED: LEVOFLOXACIN 750 MG TAB PO SCH (11:00)
--- NOTE | 2016-11-23 14:33 | Progress Note ---
Medicine Progress Note Date & Time of Visit: Nov 23, 2016 at 14:33 . Subjective Feels well. No fever, chills. Cough resolved. No CP or SOB. No nausea, vomiting, diarrhea. Ambulating. . Objective Last 8 Hrs Date Time Temp Pulse Resp B/P Pulse Ox O2 Delivery O2 Flow Rate FiO2 11/23/16 08:16 36.6 72 16 115/67 94 Room Air 11/23/16 08:05 Room Air Physical Exam: General- no distress Eyes- anicteric Neck- no JVD Lungs- clear Heart- irregular, rate controlled, no gallop appreciated Abdomen- + BS, slightly distended, soft, nontender Extremities- trace pretibial edema, no calf tenderness Neuro- alert, oriented . Laboratory Results: Last 24 Hours Test 11/22/16 18:30 11/23/16 05:20 11/23/16 12:09 White Blood Count 8.25 K/uL Red Blood Count 4.30 M/uL Hemoglobin 12.1 g/dL Hematocrit 35.9 % Mean Corpuscular Volume 83.5 fL Mean Corpuscular Hemoglobin 28.1 pg Mean Corpuscular Hemoglobin Concent 33.7 g/dl RDW Standard Deviation 40.6 fL RDW Coefficient of Variation 13.4 % Platelet Count 138 K/uL Mean Platelet Volume 9.1 fL Sodium Level 139 mmol/L Potassium Level 3.9 mmol/L Chloride Level 102 mmol/L Carbon Dioxide Level 28 mmol/L Anion Gap 9.0 mmol/L Blood Urea Nitrogen 19 mg/dl Creatinine 1.20 mg/dl Est Creatinine Clear Calc Drug Dose 43.4 ml/min Estimated GFR () 66.3 Estimated GFR (Non- 57.2 BUN/Creatinine Ratio 15.5 Random Glucose 101 mg/dl Calcium Level 8.3 mg/dl Phosphorus Level 2.2 mg/dl Magnesium Level 2.0 mg/dl Total Bilirubin 0.5 mg/dl Aspartate Amino Transf (AST/SGOT) 25 U/L Alanine Aminotransferase (ALT/SGPT) 28 U/L Alkaline Phosphatase 51 U/L Total Protein 6.1 gm/dl Albumin 2.8 gm/dl Globulin 3.3 gm/dl Albumin/Globulin Ratio 0.8 Prothrombin Time 13.7 SECONDS Prothromb Time International Ratio 1.3 Bedside Glucose 100 mg/dl Assessment & Plan SEPTIC SHOCK Presented to Emergency Department at [facility] last night with confusion, tachycardia, hypotension. Had developed nausea, vomiting, diarrhea approximately 24 hours prior to presentation. Symptoms starting after eating cheeseburger in restaurant. Grandson who ate the same food developed GI symptoms as well. Met criteria for sepsis @ [facility]- tachycardia, hypotension, leukopenia, altered mental status. 3-hour and 6 hour bundled sepsis care performed at [facility] prior to transfer: Blood cultures obtained. (negative as of 11/21/16 10:00) Lactate < 2. Broad-spectrum antibiotics (levofloxacin and piperacillin/tazobactam) administered. Received fluid resuscitation with 3 L normal saline. Persistent hypotension despite fluid resuscitation. Started on norepinephrine infusion for septic shock. Hemodynamics improved by the time patient arrived to [facility]. Received IV hydrocortisone due to chronic steroid therapy. Norepinephrine discontinued. Received adequate fluid resuscitation @ [facility]. Procalcitonin elevated at 7.2. Source of sepsis uncertain, probably GI, possible pneumonia. Stool 11/19/16 negative for C diff. Procalcitonin 7.2 --> 3.22 --> 1.27. CT abdomen demonstrated cholelithiasis, pericholecystic fluid + stranding. HIDA scan neg. General Surgery consulted. Did not appear to have cholecystitis; no indication for surgery. Chest x-ray 11/[address] 11/20 demonstrated densities LLL, ? infiltrates vs atelectasis. Has received broad-spectrum antibiotic coverage x 4 days. Afebrile. Hemodynamically stable. Procalcitonin improving. Transition to oral therapy with levofloxacin and metronidazole. Discharge on levofloxacin and metronidazole to complete total of 10 days of antibiotic coverage. ALTERED MENTAL STATUS Family noted increasing confusion day prior to admission, prompting return to ED at [facility]. Probable encephalopathy secondary to sepsis. Had closed head injury with apparent concussion on 11/10. Follow-up CT head 11/18/16 negative for SDH or other intracranial hemorrhage. CHRONIC ATRIAL FLUTTER Rate usually controlled without medications. Rapid ventricular response ED at [facility]. Ventricular rate now in the 80s to 90s. INR fluctuating due to acute illness, variable PO intake, antibiotics. INR today = 1.3 Follow closely and titrate warfarin as necessary. Patient able to monitor INR's at home and will work with Anticoag Clinic. CHF / PULMONARY EDEMA Chest x-ray showed pulmonary edema. History of hypertensive heart disease and diastolic dysfunction, but not requiring chronic diuretic therapy. Echocardiogram - normal LV wall motion and systolic function; grade II diastolic dysfunction. Received fluid resuscitation for septic shock as outlined above. Probable acute left ventricular diastolic heart failure / fluid overload. Diuresed PRN. Compensated at time of discharge. HISTORY OF HYPERTENSION Not taking any antihypertensive medications at this time. Follow. CKD III Serum creatinine 1.4 on admission. Creatinine today =1.2. Avoid potential nephrotoxins when able. Follow. HYPOPHOSPHATEMIA Serum phosphorus as low as 1.6. Received replacement. OSTEOARTHRITIS/CHRONIC PREDNISONE THERAPY Received IV hydrocortisone due to septic shock. Tapered steroids. Discharged on prednisone 30 mg daily, tapering to maintenance dose of 5 mg daily. DYSLIPIDEMIA Hold rosuvastatin while receiving daptomycin. PELVIC SKELETAL LESIONS Sclerotic lesions of pelvis noted on obstruction series 11/21/16. Reviewed with Radiology. Previous imaging reviewed. 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 Bone scan 10/06/2008 showed increased uptake in the pelvis suspicious for metastatic disease. Underwent w/u for malignancy at that time. 8 year survival favors benign process. Patient reports that recent PSA 2. May have Paget's disease. Re-evaluate as necessary if pt develops symptoms. PULMONARY DENSITIES Several pulmonary densities noted on chest x-ray 11/21/16. Some were previously noted on imaging in the past (CTA chest 2013), some new. Recommended f/u dedicated CT chest in 6-12 weeks after resolution of acute illness. VTE PROPHYLAXIS / HISTORY OF PE History of pulmonary embolism. On chronic warfarin therapy for atrial fibrillation/flutter and history of pulmonary embolism. SCD's. Titrated warfarin. Ambulating. DISPOSITION Discharged to home. Family Medicine follow-up with Dr. Romero. Cardiology follow-up with Dr. Rainey. present and given update. Components of this document were electronically copied and updated from the last documentation created by the undersigned in order to maintain a complete, accurate, and current record. Any portion of this document created by another author, if any, will be attributed to them. I certify that the record accurately reflects the patient's current status and services provided on the date of service. . Consultants: [facility] ID General Surgery . Procedures: cardiac monitoring IV meds IV fluids echocardiogram CT head CT abdomen + pelvis HIDA . Current Inpatient Medications: Current Inpatient Medications Medications (Trade) Dose Ordered Sig/Deena Route Start Time Stop Time Status Last Admin Dose Admin Ropinirole HCl (Requip Tab) 1 mg HS PO 11/18/16 21:00 12/18/16 20:59 11/22/16 21:20 1 MG Tramadol HCl (Ultram Tab) 50 mg Q8 PRN PO 11/18/16 14:00 12/18/16 13:59 11/20/16 18:28 50 MG Alfuzosin HCl (Uroxatral Tab) 10 mg QPM PO 11/19/16 21:00 12/19/16 20:59 11/22/16 21:20 10 MG Ioversol (Optiray 320) 100 ml UD PRN IV 11/20/16 13:00 11/24/16 12:59 Miscellaneous (Tap Water Enema) 1 ea DAILY PRN NC 11/21/16 07:41 12/21/16 07:40 Pantoprazole Sodium (Protonix Tab) 40 mg QAM PO 11/23/16 08:00 12/23/16 08:59 11/23/16 07:57 40 MG Prednisone (PredniSONE TAB) 40 mg DAILY PO 11/23/16 08:00 12/23/16 08:59 11/23/16 07:58 40 MG Levofloxacin (Levaquin Tab) 750 mg DAILY@11 PO 11/23/16 11:00 11/30/16 10:59 11/23/16 11:19 750 MG Metronidazole (Flagyl Tab) 500 mg TID PO 11/22/16 14:00 12/02/16 13:59 11/23/16 13:59 500 MG Al Hydrox/Mg Hydrox/Simethicone (Maalox Max Susp) 15 ml Q6H PRN PO 11/22/16 16:00 12/22/16 15:59 11/22/16 16:27 15 ML
[2016-11-23] MEDS ORDERED: METR-162 PO (14:38)
[2016-11-23] MEDS ORDERED: PRED-301 PO (14:38)
[2016-11-23] MEDS ORDERED: LVQ750 PO (14:38)
--- NOTE | 2016-11-23 14:49 | Discharge Instructions ---
Discharge Instructions Admission Reason for Admission: sepsis . Discharge Discharge Diagnosis / Problem: sepsis Discharge Goals Goal(s): Improve disease control Activity Recommendations Activity Limitations: resume your previous activity (take it easy at first, then gradually increase activity) . Instructions / Follow-Up Instructions / Follow-Up FOLLOW-UP APPOINTMENTS: FAMILY MEDICINE 11/29/2016 11:10 AM Juancho Romero MD Please ask Dr. Romero to schedule follow-up CT of chest without contrast in 6- 12 weeks. MEDICATION CHANGES: levofloxacin (Levaquin) 750 mg daily for 4 days (antibiotic for sepsis) metronidazole (Flagyl) 500 mg 3 times a day for 4 days (antibiotic for sepsis) prednisone 5 mg pills: 6 pills daily for 2 days, 4 pills daily for 2 days, 3 pills daily for 2 days, 2 pills daily for 2 days, then resume 1 pill daily warfarin (Coumadin): INR will be varying because of sepsis and antibiotics, may take 1-2 weeks to level off. Check INR daily for next 2 weeks if INR less than 2, take 5 mg if INR 2-3, take 2.5 mg if INR 3-4, skip dose if INR above 4, call anticoagulation clinic Subsequent dosing per Anticoagulation Clinic. Avoid excessive or varying amounts of foods that contain high amounts of vitamin K. Seek medical attention if you have: * temperature above 101 * chest pain or trouble breathing * abdominal pain, nausea, vomiting * diarrhea, dark stools or bloody stools * any unanswered questions or concerns Call 911 if symptoms are severe. Call if you have any questions or problems. My cell # is [phone]. You can also reach a [facility] hospitalist on duty at [facility] 24 hours a day by calling [phone]. Please take good care of yourself. Randy Gilbert . Current Hospital Diet Patient's current hospital diet: AHA Diet (Heart Healthy), Low Fat Diet, Low Lactose Diet Discharge Diet Recommended Diet: AHA Diet (Heart Healthy) Pending Studies Studies pending at discharge: no Medical Emergencies . Who to Call and When: Medical Emergencies: If at any time you feel your situation is an emergency, please call 911 immediately. . Non-Emergent Contact Non-Emergency issues call your: Primary Care Provider . . "Provider Documentation" section prepared by Randy Gilbert. VTE Core Measure Inpt VTE Proph given/why not?: Warfarin (Coumadin), SCD's
[2016-11-23 15:09] VITALS: BP 129/79; PULSE 68; TEMP 36.7; O2SAT 97
[2016-11-23 15:19] VITALS: BP 129/79; PULSE 68; TEMP 36.7; O2SAT 97
--- NOTE | 2016-11-23 20:00 | Discharge Summary ---
Discharge Summary Admission Date: Nov 18, 2016 at 09:14 Discharge Date: Nov 23, 2016 Discharge Disposition: Home Principal Diagnosis: septic shock . Secondary Diagnoses/Problems: Chronic and Resolved Medical Problems: (1) Atrial fibrillation Status: Chronic (2) BPH (benign prostatic hypertrophy) Status: Chronic (3) Carotid artery disease Status: Chronic (4) Cholelithiases Status: Chronic (5) Chronic steroid use Permanent Comment: prednisone 5 mg daily for osteoarthritis Status: Chronic (6) CKD (chronic kidney disease), stage III Status: Chronic (7) COPD (chronic obstructive pulmonary disease) Status: Chronic (8) Diverticular disease of colon Status: Chronic (9) Dyslipidemia Status: Chronic (10) History of atrial flutter Status: Chronic (11) History of electrophysiologic study Status: Chronic (12) History of paroxysmal supraventricular tachycardia Status: Chronic (13) History of prostate cancer ? ( had elevated PSA with + biopsy, but repeat biopsies and subsequent PSA's improved ) Permanent Comment: 2008 Status: Chronic (14) History of pulmonary embolism Status: Chronic (15) History of ventricular tachycardia Status: Chronic (16) Hypertension Status: Chronic (17) Hypertensive heart disease Status: Chronic (18) Osteoarthritis Status: Chronic (19) Restless legs syndrome Status: Chronic (20) Spinal stenosis of lumbar region Status: Chronic Surgical Problems: (1) Status post aortic valve replacement Permanent Comment: bioprosthetic Status: Chronic (2) Status post cataract extraction Status: Chronic (3) Status post inguinal hernia repair Status: Chronic (4) Status post mitral valve repair Status: Chronic (5) 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 Procedures: cardiac monitoring IV meds IV fluids echocardiogram CT head CT abdomen + pelvis HIDA . Consultations: [facility] ID General Surgery . Medication Reconciliation New Medications: Levofloxacin (Levofloxacin) 750 Mg Tab 750 MG PO DAILY, #4 TAB Metronidazole (Flagyl) 500 Mg Tab 500 MG PO TID, #12 TAB Prednisone (Prednisone) 5 Mg Tab 5 MG PO UD, #30 TAB Note new instructions in discharge instructions. Continued Medications: Acyclovir (Zovirax 5% Oint) 90 Appln/30 Gm Oint 1 APPLN EXT PRN for COLD SORES Albuterol (Ventolin) Inh 2 PUFFS INH QID PRN for Shortness of Breath Alfuzosin Hcl (Alfuzosin Hcl Er) 10 Mg Tab 10 MG PO QPM Bilberry (Vaccinium Myrtillus) (Bilberry) 100 Mg Cap 100 MG PO QAM Coenzyme Q10 (Ubidecarenone) (Co Q 10) 100 Mg Cap 100 MG PO QAM Esomeprazole Magnesium (Nexium) 40 Mg Capcr 40 MG PO QPM, CAP Loratadine (Claritin) 10 Mg Tab 1 TAB PO QAM, TAB Magnesium (Magnesium 250 mg) 1 Tab Tab 1 TAB PO QPM Prednisone (Prednisone) 5 Mg Tab 5 MG PO UD, TAB Note new instructions in discharge instructions. Risedronate Sodium (Actonel) 150 Mg Tab 150 MG PO MONTHLY FIRST OF MONTH Ropinirole HCl (Ropinirole HCl) 1 Mg Tab 1 MG PO HS Rosuvastatin Calcium (Crestor) 10 Mg Tab 10 MG PO DAILY, TAB Tramadol Hcl (Ultram) 50 Mg Tab 50-100 MG PO Q8 PRN for Pain, TAB PRN PAIN Warfarin Sod (Coumadin) 2.5 Mg Tab 2.5 MG PO UD, TAB Note new instructions in discharge instructions. Warfarin Sodium (Warfarin Sodium) 5 Mg Tab 1 TAB PO UD Note new instructions in discharge instructions. Admission Information HPI (per Admitting provider): 81 YO male followed by -[id number]-[id number].- -[id number]- Dr. Romero [error XIAO 11/23/16 @ 20 :03] for Family Medicine and Dr. Rainey for Cardiology. History of chronic atrial fibrillation, atrial flutter, ventricular tachycardia , valvular heart disease (s/p bioprosthetic AVR + MV repair), pulmonary embolism , osteoarthritis managed with chronic prednisone therapy, and other problems as noted below. Developed nausea, vomiting, diarrhea 2 nights ago after eating a hamburger at a restaurant. Was evaluated in the Emergency Department @[facility]. Medical status was stable and he returned home. Yesterday his family noted increasing confusion during the day. Returned to ED @ [facility]. Upon arrival there, he was tachycardic and hypotensive. He appeared to be septic. Blood pressure was 79/59. WBC was 3800. Serum lactate was < 2. Blood cultures were obtained. Received intravenous levofloxacin and piperacillin/tazobactam. Received fluid resuscitation with 3 L of normal saline. Remained hypotensive. Started on norepinephrine infusion for pressor support. No ICU beds available at [facility]. Arrangements made for transfer to [facility] for continued care. Systolic BPs in the 90 en route. Patient remained on norepinephrine infusion at time of arrival. He stated that he was feeling better. No chest pain, cough, shortness of breath. Nausea and vomiting resolved. . Physical Exam (per Admitting): General Appearance: WD/WN, no apparent distress Head: normocephalic, atraumatic Eyes: normal inspection, PERRL, EOMI, sclerae normal, + pertinent finding ( conjunctivae pink) ENT: normal ENT inspection, hearing grossly normal, + pertinent finding ( mild hearing loss) Neck: supple, no adenopathy, thyroid normal, no JVD, trachea midline Respiratory/Chest: lungs clear, no respiratory distress, no accessory muscle use Cardiovascular: no edema, no gallop, no JVD, + systolic murmur (II/ systolic murmur at base), + irregularly irregular Abdomen/GI: normal bowel sounds, non tender, soft, no organomegaly, no pulsatile mass Extremities/Musculoskelatal: normal inspection, no calf tenderness, normal capillary refill, no pedal edema Neurologic/Psych: apple packing header II-XII nml as tested (PERRL, EOMI, no facial palsy, no dysarthria, tongue midline), no motor/sensory deficits (motor strength extremities grossly intact), alert, oriented x 3 Skin: normal color, warm/dry, no rash Lymphatic: no adenopathy Hospital Course SEPTIC SHOCK Presented to Emergency Department at [facility] last night with confusion, tachycardia, hypotension. Had developed nausea, vomiting, diarrhea approximately 24 hours prior to presentation. Symptoms starting after eating cheeseburger in restaurant. Grandson who ate the same food developed GI symptoms as well. Met criteria for sepsis @ [facility]- tachycardia, hypotension, leukopenia, altered mental status. 3-hour and 6 hour bundled sepsis care performed at [facility] prior to transfer: Blood cultures obtained. (negative as of 11/21/16 10:00) Lactate < 2. Broad-spectrum antibiotics (levofloxacin and piperacillin/tazobactam) administered. Received fluid resuscitation with 3 L normal saline. Persistent hypotension despite fluid resuscitation. Started on norepinephrine infusion for septic shock. Hemodynamics improved by the time patient arrived to [facility]. Received IV hydrocortisone due to chronic steroid therapy. Norepinephrine discontinued. Received adequate fluid resuscitation @ [facility]. Procalcitonin elevated at 7.2. Source of sepsis uncertain, probably GI, possible pneumonia. Stool 11/19/16 negative for C diff. Procalcitonin 7.2 --> 3.22 --> 1.27. CT abdomen demonstrated cholelithiasis, pericholecystic fluid + stranding. HIDA scan neg. General Surgery consulted. Did not appear to have cholecystitis; no indication for surgery. Chest x-ray 11/[address] 11/20 demonstrated densities LLL, ? infiltrates vs atelectasis. Has received broad-spectrum antibiotic coverage x 4 days. Afebrile. Hemodynamically stable. Procalcitonin improving. Transition to oral therapy with levofloxacin and metronidazole. Discharge on levofloxacin and metronidazole to complete total of 10 days of antibiotic coverage. ALTERED MENTAL STATUS Family noted increasing confusion day prior to admission, prompting return to ED at [facility]. Probable encephalopathy secondary to sepsis. Had closed head injury with apparent concussion on 11/10. Follow-up CT head 11/18/16 negative for SDH or other intracranial hemorrhage. CHRONIC ATRIAL FLUTTER Rate usually controlled without medications. Rapid ventricular response ED at [facility]. Ventricular rate now in the 80s to 90s. INR fluctuating due to acute illness, variable PO intake, antibiotics. INR today = 1.3 Follow closely and titrate warfarin as necessary. Patient able to monitor INR's at home and will work with Anticoag Clinic. CHF / PULMONARY EDEMA Chest x-ray showed pulmonary edema. History of hypertensive heart disease and diastolic dysfunction, but not requiring chronic diuretic therapy. Echocardiogram - normal LV wall motion and systolic function; grade II diastolic dysfunction. Received fluid resuscitation for septic shock as outlined above. Probable acute left ventricular diastolic heart failure / fluid overload. Diuresed PRN. Compensated at time of discharge. HISTORY OF HYPERTENSION Not taking any antihypertensive medications at this time. Follow. CKD III Serum creatinine 1.4 on admission. Creatinine today =1.2. Avoid potential nephrotoxins when able. Follow. HYPOPHOSPHATEMIA Serum phosphorus as low as 1.6. Received replacement. OSTEOARTHRITIS/CHRONIC PREDNISONE THERAPY Received IV hydrocortisone due to septic shock. Tapered steroids. Discharged on prednisone 30 mg daily, tapering to maintenance dose of 5 mg daily. DYSLIPIDEMIA Hold rosuvastatin while receiving daptomycin. PELVIC SKELETAL LESIONS Sclerotic lesions of pelvis noted on obstruction series 11/21/16. Reviewed with Radiology. Previous imaging reviewed. 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 Bone scan 10/06/2008 showed increased uptake in the pelvis suspicious for metastatic disease. Underwent w/u for malignancy at that time. 8 year survival favors benign process. Patient reports that recent PSA 2. May have Paget's disease. Re-evaluate as necessary if pt develops symptoms. PULMONARY DENSITIES Several pulmonary densities noted on chest x-ray 11/21/16. Some were previously noted on imaging in the past (CTA chest 2013), some new. Recommended f/u dedicated CT chest in 6-12 weeks after resolution of acute illness. VTE PROPHYLAXIS / HISTORY OF PE History of pulmonary embolism. On chronic warfarin therapy for atrial fibrillation/flutter and history of pulmonary embolism. SCD's. Titrated warfarin. Ambulating. DISPOSITION Discharged to home. Family Medicine follow-up with Dr. Romero. Cardiology follow-up with Dr. Rainey. present and given update. Components of this document were electronically copied and updated from the last documentation created by the undersigned in order to maintain a complete, accurate, and current record. Any portion of this document created by another author, if any, will be attributed to them. I certify that the record accurately reflects the patient's current status and services provided on the date of service. . Total time spent on discharge = 45 min. This includes examination of the patient, discharge planning, medication reconciliation, and communication with other providers. . Discharge Instructions Admission Reason for Admission: sepsis . Discharge Discharge Diagnosis / Problem: sepsis Discharge Goals Goal(s): Improve disease control Activity Recommendations Activity Limitations: resume your previous activity (take it easy at first, then gradually increase activity) . Instructions / Follow-Up Instructions / Follow-Up FOLLOW-UP APPOINTMENTS: FAMILY MEDICINE 11/29/2016 11:10 AM Juancho Romero MD Please ask Dr. Romero to schedule follow-up CT of chest without contrast in 6- 12 weeks. MEDICATION CHANGES: levofloxacin (Levaquin) 750 mg daily for 4 days (antibiotic for sepsis) metronidazole (Flagyl) 500 mg 3 times a day for 4 days (antibiotic for sepsis) prednisone 5 mg pills: 6 pills daily for 2 days, 4 pills daily for 2 days, 3 pills daily for 2 days, 2 pills daily for 2 days, then resume 1 pill daily warfarin (Coumadin): INR will be varying because of sepsis and antibiotics, may take 1-2 weeks to level off. Check INR daily for next 2 weeks if INR less than 2, take 5 mg if INR 2-3, take 2.5 mg if INR 3-4, skip dose if INR above 4, call anticoagulation clinic Subsequent dosing per Anticoagulation Clinic. Avoid excessive or varying amounts of foods that contain high amounts of vitamin K. Seek medical attention if you have: * temperature above 101 * chest pain or trouble breathing * abdominal pain, nausea, vomiting * diarrhea, dark stools or bloody stools * any unanswered questions or concerns Call 911 if symptoms are severe. Call if you have any questions or problems. My cell # is [phone]. You can also reach a [facility] hospitalist on duty at [facility] 24 hours a day by calling [phone]. Please take good care of yourself. Randy Gilbert . Current Hospital Diet Patient's current hospital diet: AHA Diet (Heart Healthy), Low Fat Diet, Low Lactose Diet Discharge Diet Recommended Diet: AHA Diet (Heart Healthy) Pending Studies Studies pending at discharge: no Medical Emergencies . Who to Call and When: Medical Emergencies: If at any time you feel your situation is an emergency, please call 911 immediately. . Non-Emergent Contact Non-Emergency issues call your: Primary Care Provider . . "Provider Documentation" section prepared by Randy Gilbert. VTE Core Measure Inpt VTE Proph given/why not?: Warfarin (Coumadin), SCD's . Additional Copies To Andres Rainey M.D.; Juancho Romero M.D.
[2017-04-08] MEDS ORDERED: CLC/300 PO (09:45)
[2017-04-08] MEDS ORDERED: POLY335019 PO (09:45)
[2017-05-09] MEDS ORDERED: TRAM-453 PO (21:51)
[2017-05-09] MEDS ORDERED: FRRG PO (21:51)
[2017-05-09] MEDS ORDERED: ACET-24 PO (21:51)
== END 2016-11-23 15:30 | disposition home or self-care (01) | DRG 871 ==
LOC: ENRESERVTM → ENRESERVDT → C.MSICU 09:14 → C.2T 11-19 15:52 → C.4E 11-22 18:56
PROVIDERS: ADMIT Hospitalist; ATTEND Hospitalist
DX: A41.9 Sepsis, unspecified organism (principal); R65.21 Severe sepsis with septic shock; J18.9 Pneumonia, unspecified organism; I50.31 Acute diastolic (congestive) heart failure; G93.40 Encephalopathy, unspecified; I48.92 Unspecified atrial flutter; I13.0 Hypertensive heart and chronic kidney disease with heart failure and stage 1 through stage 4 chronic kidney disease, or unspecified chronic kidney disease; K57.92 Diverticulitis of intestine, part unspecified, without perforation or abscess without bleeding; I47.1 Supraventricular tachycardia; I48.2 Chronic atrial fibrillation; N18.3 Chronic kidney disease, stage 3 (moderate); N40.0 Benign prostatic hyperplasia without lower urinary tract symptoms; E78.5 Hyperlipidemia, unspecified; J44.9 Chronic obstructive pulmonary disease, unspecified; M19.90 Unspecified osteoarthritis, unspecified site; I25.10 Atherosclerotic heart disease of native coronary artery without angina pectoris; S06.0X0A Concussion without loss of consciousness, initial encounter; X58.XXXA Exposure to other specified factors, initial encounter; E83.39 Other disorders of phosphorus metabolism; E87.70 Fluid overload, unspecified; R19.7 Diarrhea, unspecified; D72.819 Decreased white blood cell count, unspecified; Z95.3 Presence of xenogenic heart valve; Z95.2 Presence of prosthetic heart valve; Z85.46 Personal history of malignant neoplasm of prostate; Z86.711 Personal history of pulmonary embolism; I65.29 Occlusion and stenosis of unspecified carotid artery; K80.20 Calculus of gallbladder without cholecystitis without obstruction; G25.81 Restless legs syndrome; M48.06 Spinal stenosis, lumbar region; Z90.49 Acquired absence of other specified parts of digestive tract; M89.9 Disorder of bone, unspecified; R91.8 Other nonspecific abnormal finding of lung field; R79.89 Other specified abnormal findings of blood chemistry; Z79.52 Long term (current) use of systemic steroids; Z79.01 Long term (current) use of anticoagulants; Z79.891 Long term (current) use of opiate analgesic

== ENCOUNTER 2017-05-09 09:38 | Inpatient (IN) | payer OTHER ==
[2017-04-08 09:45] VITALS: BMI 26.0
--- NOTE | 2017-04-08 10:26 | PAT Medication Instructions ---
Service Date April 08, 2017. Current Home Medication List Acyclovir (Zovirax 5% Oint), 1 APPLN EXT for COLD SORES Albuterol (Ventolin), 2 PUFFS INH QID PRN for Shortness of Breath Alfuzosin Hcl (Alfuzosin Hcl Er), 10 MG PO QPM Bilberry (Vaccinium Myrtillus) (Bilberry), 100 MG PO 3XWK Clindamycin HCl (Clindamycin HCl), 2 CAP PO ONE HR PRIOR TO DENT Coenzyme Q10 (Ubidecarenone) (Co Q 10), 100 MG PO QAM Esomeprazole Magnesium (Nexium), 40 MG PO QPM Loratadine (Claritin), 1 TAB PO QAM Magnesium (Magnesium 250 mg), 1 TAB PO EVERY OTHER DAY Polyethylene Glycol 3350 (Miralax), 17 GM PO UD PRN for PRN Prednisone (Prednisone), 5 MG PO QAM Risedronate Sodium (Actonel), 150 MG PO MONTHLY Ropinirole HCl (Ropinirole HCl), 1 MG PO HS Rosuvastatin Calcium (Crestor), 10 MG PO QPM Tramadol Hcl (Ultram), 50-100 MG PO Q8 PRN for Pain Warfarin Sod (Coumadin), 2.5 MG PO SEE NOTE Warfarin Sodium (Warfarin Sodium), 1 TAB PO WEDNESDAYS Medication Instructions For Your Scheduled Surgery - Instructions to be given by [facility]: Warfarin Sod (Coumadin) Per patient, usually given Lovenox bridge - Hold the following medications 2 weeks prior to surgery: Coenzyme Q10 (Ubidecarenone) (Co Q 10), 100 MG PO QAM Bilberry (Vaccinium Myrtillus) (Bilberry), 100 MG PO 3XWK - Hold the following medications 24 hours prior to surgery: Acyclovir (Zovirax 5% Oint), 1 APPLN EXT for COLD SORES Ropinirole HCl (Ropinirole HCl), 1 MG PO HS - Hold the following medications the morning of surgery: Loratadine (Claritin), 1 TAB PO QAM Magnesium (Magnesium 250 mg), 1 TAB PO EVERY OTHER DAY Polyethylene Glycol 3350 (Miralax), 17 GM PO UD PRN for PRN - Take the following medications the morning of surgery with a sip of water OTHERWISE NOTHING TO EAT OR DRINK AFTER MIDNIGHT: Tramadol Hcl (Ultram), 50-100 MG PO Q8 PRN for Pain (may take if needed up to 4 hours prior to surgery) Prednisone (Prednisone), 5 MG PO QAM Albuterol (Ventolin), 2 PUFFS INH QID PRN for Shortness of Breath (use if needed ; BRING TO HOSPITAL) - Take the following medications as scheduled the night before surgery: Rosuvastatin Calcium (Crestor), 10 MG PO QPM Alfuzosin Hcl (Alfuzosin Hcl Er), 10 MG PO QPM Tramadol Hcl (Ultram), 50-100 MG PO Q8 PRN for Pain Esomeprazole Magnesium (Nexium), 40 MG PO QPM Albuterol (Ventolin), 2 PUFFS INH QID PRN for Shortness of Breath Polyethylene Glycol 3350 (Miralax), 17 GM PO UD PRN for PRN If you have any questions please call us at [phone] or [phone] or [phone]
[2017-04-08 10:36] LABS: BASO % 0.7 %; BASO ABS # 0.05 K/uL (0-0.2); COMPLETE YES; EOS % 1.6 %; HEMATOCRIT 42.3 % (42-52); IG% 1.5 %; LYMPH ABS # 1.07 K/uL (1.2-3.4); MEAN CELL VOLUME 88.3 fL (80-100); MEAN CORPUSCULAR HEMOGLOBIN 28.8 pg (25-34); MEAN CORPUSCULAR HGB CONC 32.6 g/dl (32-36); MEAN PLATELET VOLUME 9.5 fL (7.4-10.4); MONO % 11.1 %; NEUT % 69.1 %; PLATELET COUNT 157 K/uL (130-400); RED BLOOD COUNT 4.79 M/uL (4.7-6.1); WHITE BLOOD COUNT 6.68 K/uL (4.8-10.8)
[2017-04-08 10:51] LABS: INR 1.9 (0.9-1.1); PARTIAL THROMBOPLASTIN RATIO 1.3; PROTHROMBIN TIME (PATIENT) 20.6 SECONDS (9.0-12.0)
--- NOTE | 2017-04-08 11:48 | DIAGNOSTIC IMAGING REPORT ---
CHEST PREADMISSION(PA/LAT) HISTORY: Preop. COMPARISON: Chest 11/21/2016. FINDINGS: The heart remains mildly enlarged. Cardiac valve prostheses and poststernotomy changes are again noted. No pleural effusions. No pneumothorax. Mild diffuse interstitial thickening which is likely chronic. Stable bilateral midlung zone calcifications. No new focal lung consolidations. IMPRESSION: No acute process. Stable mild cardiomegaly. Electronically signed by: Theo Capellan M.D. 04/08/2017 11:46 AM Dictated Date/Time: 04/08/2017 11:42 AM
[2017-04-08 12:01] LABS: BUN/CREATININE RATIO 14.8 (10-20); CALCIUM 8.2 mg/dl (8.5-10.1); CREATININE 1.2 mg/dl (0.60-1.40); POTASSIUM 4.1 mmol/L (3.5-5.1)
--- NOTE | 2017-05-03 00:52 | HISTORY & PHYSICAL EXAMINATION ---
DATE OF ADMISSION: 05/09/2017 CHIEF COMPLAINT: Left knee pain and discomfort. HISTORY OF PRESENT ILLNESS: An 82-year-old gentleman who presents for surgical treatment of his left knee. He has got a long history of left knee pain and discomfort. We have been putting shots in his knees, which helped initially. It has become less successful over time. He describes fairly global pain in his knee. It is increased with weightbearing. He feels like he needs to get something done. The shots have not helped recently. The more he walks, the more it hurts. Also he has got some referred pain up to his hip. No numbness or radicular symptoms. He is becoming less able to get around due to his knee pain. PAST MEDICAL HISTORY: 1. 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 2. COPD/emphysema. 3. History of DVT. 4. Gastroesophageal reflux disease. 5. BPH. PAST SURGICAL HISTORY: Previous surgeries include: 1. Cardiac valve replacement, 12 years. 2. Colon resection x2. 3. Rotator cuff repair. ALLERGIES: PENICILLIN WHICH CAUSES HIVES. NO RESPIRATORY PROBLEMS. CURRENT MEDICINES: Include: 1. Alfuzosin 10 mg. 2. Actonel once a month. 3. Crestor 10 mg. 4. Ultram 50 mg p.r.n. for pain. 5. Esomeprazole 40 mg a day. 6. Requip 1 mg at bedtime. 7. Prednisone 5 mg a day. 8. Coumadin 5 mg a day. 9. MiraLAX. 10. Claritin. 11. Clindamycin capsule. 12. Coenzyme Q. 13. Bilberry. SOCIAL HISTORY: This is an 82-year-old male. He is . Lives in [place]. FAMILY HISTORY: Noncontributory. REVIEW OF SYSTEMS: Significant for this cardiac valve problem. He is followed by Dr. Rainey. Denies any current chest pain or shortness of breath. He is on Coumadin. PHYSICAL EXAMINATION: GENERAL: This is a pleasant elderly male. He looks to be younger than his stated age. HEENT: Benign. NECK: Supple. No lymphadenopathy. LUNGS: Clear to auscultation. HEART: Has a regular rate and rhythm. ABDOMEN: Soft, nontender, nondistended. EXTREMITIES: Grossly neurovascularly intact except as follows: Examination of left knee and leg reveals the patient walks with a bit of a limp. He has got valgus alignment to his knee. Small knee effusion. Range of motion is 5-120. No instability. Examination of the hip reveals some tenderness over the bursa. No particular pain with hip motion. Some mild limited hip motion. X-RAYS: X-rays of the left knee reveal advanced lateral compartment DJD. He has got complete loss of his lateral joint space. X-rays of the hip reveal some pagetoid changes in his hip. Joint space is well maintained. ASSESSMENT: An 82-year-old male with advanced left knee degenerative joint disease. Pretty minimal response to conservative care. He does have some hip pain, mostly related to some bursitis. He has got some pagetoid changes but no significant arthritis. PLAN: We talked about treatment. He would like to have something done with his knee. We will proceed with left knee replacement. The risks and benefits of this procedure were explained to the patient including but not limited to DVT, PE, , infection, neurological injury, vascular injury, bleeding problem, pain, limited range of motion, stiffness, failure to relieve his symptoms, incomplete relief of symptoms, need for further surgery in the future, fracture, leg length inequality, nerve palsy, etc. The patient understands and desires to proceed. Informed consent was obtained. Dr. Rainey is his care aide and we will have him see him in the hospital. He will need cardiac clearance. He will stop his Coumadin 5 days preoperatively. He will stop the Lovenox 24 hours preop. We will likely start him on prophylactic Lovenox 24 hours after surgery until his Coumadin is therapeutic. As far as discharge plans, he is planning to be discharged to home using [facility]. We may use some stress dose steroids, although I am not certain it is needed due to his low dose of prednisone. We will need a stat PT and INR in the a.m. of surgery. He is planning to be discharged to home using [facility]. JEANNA
[2017-05-09] VITALS (7 sets, daily range): BP systolic 101–142; BP diastolic 66–85; PULSE 60–77; TEMP 36.3–36.9; O2SAT 93–99; Ht 165.1 cm; Wt 72.3 kg
[~2017-05-09] VITALS: Ht 165.1 cm; Wt 72.3 kg
[~2017-05-09 09:38] MED LIST changes: +ACETAMINOPHEN 500 MG TAB PO SCH; +BUPIVACAINE 0.25% 30 ML VIAL ONE; +BUPIVACAINE 0.5 % 5 MG/1 ML PF 10ML VIAL ONE; +BUPIVACAINE LIPOSOME 266 MG, BUPIVACAINE/EPINEPHRINE INJ 50 ML, SODIUM CHLORIDE 0.9% PF... INFIL SCH; +CLC/300 PO; +FAMOTIDINE 20 MG TAB PO SCH; +GABAPENTIN 300 MG CAP PO SCH; +GENERAL ORDER PROBLEM SCH; -GLUC1TAB22 PO; +LACTATED RINGER'S 1000ML 1,000 ML IV SCH; +METOCLOPRAMIDE HCL 10 MG TAB PO SCH; +POLY335019 PO; -ROPI0.5T15 PO; +ROPI1TAB29 PO; +SCOPOLAMINE 1.5 MG TDSY TD SCH; +TRANEXAMIC ACID INJ 1,000 MG in SODIUM CHLORIDE 0.9% 100ML 100 ML IV SCH
[2017-05-09 10:32] LABS: INR 1.1 (0.9-1.1); PARTIAL THROMBOPLASTIN RATIO 1.1; PROTHROMBIN TIME (PATIENT) 11.4 SECONDS (9.0-12.0)
[2017-05-09] MEDS ORDERED: FERR1TAB13 PO (10:38)
--- NOTE | 2017-05-09 10:46 | History & Physical Bridge Note ---
H&P Re-Evaluation Bridge Note: I have examined the patient, reviewed the History & Physical and in the interval since the performance of the History & Physical I have noted the following changes of clinical significance: No changes noted
[2017-05-09] MEDS ORDERED: CEFAZOLIN SOD 1000MG/55 ML D5W IV ONE (11:09)
[2017-05-09] MEDS ORDERED: NURSING VERBAL MED ORDER ONE (11:15)
[2017-05-09] MEDS ORDERED: ONDANSETRON INJ 2 MG/ML 2 ML VIAL IV PRN ×2 (11:30→15:00)
[2017-05-09] MEDS ORDERED: EpHEDrine SULFATE INJ 50 MG/ML AMP IV PRN (11:30)
[2017-05-09] MEDS ORDERED: ATROPINE SULFATE 0.1 MG/ML 5ML SYR IV PRN (11:30)
[2017-05-09] MEDS ORDERED: MIDAZOLAM HCL 1 MG/ML 2ML VIAL ONE ×2 (11:33→13:12)
[2017-05-09] MEDS ORDERED: PROPOFOL IV EMULSION 10 MG/ML 20 ML VIAL IV ONE (11:33)
[2017-05-09] MEDS ORDERED: FENTANYL CITRATE INJ 50 MCG/1 ML 2 ML VIAL ONE ×2 (11:34→13:16)
[2017-05-09] MEDS ORDERED: BUPIVACAINE LIPOSOME 1/3% 266 MG/20 ML VIAL INFIL ONE (12:48)
[2017-05-09] MEDS ORDERED: BUPIVACAINE/EPINEPHRINE 0.25% 1:200,000 30 ML VIAL ONE (12:48)
[2017-05-09] MEDS ORDERED: BACITRACIN 50000 UNIT VIAL ONE (12:48)
[2017-05-09] MEDS ORDERED: SODIUM CHLORIDE 0.9% PF 50 ML VIAL ONE (12:48)
[2017-05-09] MEDS ORDERED: GLYCOPYRROLATE INJ 0.2 MG/ML VIAL ONE (13:35)
--- NOTE | 2017-05-09 14:48 | [facility] Post Operative Brief Note ---
Immediate Operative Summary Operative Date May 09, 2017. Pre-Operative Diagnosis Left Knee Advanced Degenerative Joint Disease Post-Operative Diagnosis Left Knee Advanced Degenerative Joint Disease Procedure(s) Performed Left Total Knee Arthroplasty Surgeon Dr. Bautista [facility] Sanitary Technician Surgeon(s) ANTONIO Haro Estimated Blood Loss 50ml Findings Left Knee DJD Fluids (cc crystalloids) 1500 cc Specimens A. Left Knee Bone and Tissue Drains None Anesthesia Spinal Complication(s) None Disposition Recovery Room / PACU
[2017-05-09] MEDS ORDERED: TAMSULOSIN HCL 0.4 MG CAP PO PRN (15:00)
[2017-05-09] MEDS ORDERED: METOCLOPRAMIDE HCL INJ 5 MG/ML 2 ML VIAL IV PRN (15:00)
[2017-05-09] MEDS ORDERED: ALUMINUM/MAGNESIUM/SIMETH (MAALOX MAX) 30 ML UDC PO PRN (15:00)
[2017-05-09] MEDS ORDERED: ALBUTEROL HFA 8 GM INHALER INH PRN (15:00)
[2017-05-09] MEDS ORDERED: MAGNESIUM HYDROXIDE SUSP 30 ML UDC PO PRN (15:00)
[2017-05-09] MEDS ORDERED: SILVER SULFADIAZINE 1% CR 50 GM JAR EXT PRN (15:00)
[2017-05-09] MEDS ORDERED: TRAMADOL HCL 50 MG TAB PO PRN (15:00)
[2017-05-09] MEDS ORDERED: BISACODYL 10 MG SUPP PR PRN (15:00)
[2017-05-09] MEDS ORDERED: ACYCLOVIR 5% OINT 15 GM TUBE EXT PRN (15:00)
[2017-05-09] MEDS ORDERED: HYDROmorphone INJ 0.5 MG/0.5 ML SYR IV PRN (15:00)
--- NOTE | 2017-05-09 15:20 | DIAGNOSTIC IMAGING REPORT ---
LEFT KNEE 2 VIEWS History: Left total knee arthroplasty. Degenerative arthritis. Postop. FINDINGS: The patient is status post a left total knee arthroplasty. The hardware is intact. No fracture or dislocation. Skin mitali are in place. IMPRESSION: Left total knee arthroplasty. No evidence for hardware complication. Electronically signed by: Theo Capellan M.D. 05/09/2017 3:18 PM Dictated Date/Time: 05/09/2017 3:18 PM
[2017-05-09] MEDS ORDERED: POLYETHYLENE (MIRALAX) 17 GM PACK PO PRN (16:00)
--- NOTE | 2017-05-09 16:09 | Anesthesiology Progress Note ---
Anesthesia Post Op Note Date & Time May 09, 2017 at 16:09 Vital Signs Pain Intensity: 0 Vital Signs Past 12 Hours Date Time Temp Pulse Resp B/P (MAP) Pulse Ox O2 Delivery O2 Flow Rate FiO2 05/09/17 16:02 36.3 05/09/17 15:57 76 18 05/09/17 15:57 75 18 98 05/09/17 15:56 123/84 05/09/17 15:52 75 25 99 05/09/17 15:52 75 25 05/09/17 15:51 136/83 05/09/17 15:47 75 18 100 05/09/17 15:47 75 18 05/09/17 15:46 135/79 05/09/17 15:42 75 22 99 05/09/17 15:42 75 22 05/09/17 15:41 116/78 05/09/17 15:37 75 18 97 05/09/17 15:37 75 18 05/09/17 15:36 127/81 05/09/17 15:32 75 19 05/09/17 15:32 75 19 97 05/09/17 15:31 75 14 05/09/17 15:31 75 14 123/88 97 05/09/17 15:26 75 15 05/09/17 15:26 75 15 124/88 99 05/09/17 15:21 75 22 05/09/17 15:21 75 22 115/81 100 05/09/17 15:20 75 27 99 05/09/17 15:20 75 27 05/09/17 15:16 124/91 05/09/17 15:15 74 16 05/09/17 15:15 75 16 98 05/09/17 15:11 117/85 05/09/17 15:10 78 20 97 05/09/17 15:10 74 20 05/09/17 15:09 78 21 97 05/09/17 15:09 74 21 05/09/17 15:06 121/81 05/09/17 15:04 85 19 96 05/09/17 15:04 73 19 05/09/17 15:01 127/79 05/09/17 14:59 74 16 05/09/17 14:59 78 16 96 05/09/17 14:56 122/73 05/09/17 14:54 75 20 116/78 05/09/17 14:54 36.3 74 16 116/78 97 Nasal Cannula 3 05/09/17 14:54 20 05/09/17 10:04 36.9 77 18 115/75 96 Room Air Notes Mental Status: alert / awake / arousable, participated in evaluation Pt Amnestic to Procedure: Yes Nausea / Vomiting: adequately controlled Pain: adequately controlled Airway Patency, RR, SpO2: stable & adequate BP & HR: stable & adequate Hydration State: stable & adequate Neuraxial Anesthesia: was administered, sensory block is resolving Anesthetic Complications: no major complications apparent
[2017-05-09] MEDS: D5W AND 1/2NSS + 20MEQ KCL 1,000 ML IV SCH (18:24)
[2017-05-09] MEDS: FERROUS GLUCONATE 324 MG TAB PO SCH (18:25)
[2017-05-09] MEDS ORDERED: WARFARIN SOD 5 MG TAB PO ONE (18:30)
[2017-05-09] MEDS: HYDROCORTISONE IV 100 MG in SYRINGE 0 ML IV SCH (20:56)
[2017-05-09] MEDS: KETOROLAC TROMETHAMINE 15 MG/ML VIAL IV. SCH (20:57)
[2017-05-09] MEDS: CEFAZOLIN IV 1,000 MG in DEXTROSE 5% 50ML 50 ML IV SCH (20:57)
[2017-05-09] MEDS: PANTOprazole SOD 40 MG TAB PO SCH (20:58)
[2017-05-09] MEDS: ROSUVASTATIN CALCIUM 10 MG TAB PO SCH (20:58)
[2017-05-09] MEDS: ALFUZosin TAB 10 MG TAB PO SCH (20:58)
[2017-05-09] MEDS: ROPINIROLE HCL 1 MG TAB PO SCH (20:59)
[2017-05-09] MEDS: DOCUSATE SODIUM 100 MG CAP PO SCH (20:59)
[2017-05-09] MEDS: SENNA 8.6 MG TAB PO SCH (20:59)
[2017-05-09] MEDS ORDERED: NON-FORMULARY MEDICATION (Esomeprazole Magnesium (Nexium) 40 MG) PO SCH (21:00)
--- NOTE | 2017-05-09 21:31 | OPERATIVE REPORT ---
DATE OF OPERATION: 05/09/2017 SURGEON: Dr. Patrick Bautista. SNIPPER: ANTONIO Galindo. PREOPERATIVE DIAGNOSIS: Left knee degenerative joint disease. POSTOPERATIVE DIAGNOSIS: Same. PROCEDURE PERFORMED: Left cemented posterior stabilized total knee arthroplasty. COMPLICATIONS: None. ESTIMATED BLOOD LOSS: 50 mL FLUID REPLACEMENT: 1500 mL crystalloid fluid replacement. TOURNIQUET TIME: 57 minutes at 300 mmHg. ANESTHESIA: Spinal with adductor canal block. DRAINS: None. SPECIMENS: Left knee sent for pathology. OPERATIVE INDICATIONS: The patient is an 82-year-old gentleman, who has had a several year history of increasing left knee pain and discomfort. He has been treated conservatively over the years with injections and medicines. He really could not take much medicine due to his anticoagulation need. We did put injections into his knees for several years. This provided temporary relief, but became less successful over the time. The patient elected to proceed with total knee arthroplasty. Of note, the patient has got several medical comorbidities, and was seen by both his medical doctor and welding inspector and is cleared for surgery. OPERATIVE FINDINGS: Operative findings revealed advanced left knee DJD. He had extensive grade 4 [id number] disease of the lateral compartment with eburnation the entire posterior lateral femoral condyle and lateral tibial plateau. The remainder of his knee was fairly well-preserved. He had a valgus alignment to his knee. He had a moderate sized joint effusion. Although the medial and patellofemoral compartments were fairly well-preserved, there were grade 4 central defects in both the medial femoral condyle as well as the trochlea. OPERATIVE IMPLANTS: Operative implants consisted of: 1. A Biomet Vanguard size 65 left posterior stabilized femoral component. 2. A Biomet size 75 tibial tray. 3. A 10 mm posterior stabilized polyethylene insert. 4. A 31 x 8 all poly patella. OPERATIVE PROCEDURE: The patient was taken to the operating room, identified and placed on the operating table in supine position. All contact areas were appropriately padded. IV antibiotics were provided by the anesthesia team. A spinal anesthetic and adductor canal block had been provided in the holding area. Gabriel catheter was placed in sterile fashion. Left thigh tourniquet was then placed and the left lower extremity was then prepped and draped in the usual sterile fashion. Left leg was elevated and exsanguinated with Esmarch and tourniquet was placed at 300 mmHg. An anterior approach to the left knee was then performed through a longitudinal incision centered over the patella. Sharp dissection was carried out through the subcutaneous tissues down to the level of the extensor mechanism. Medial parapatellar arthrotomy incision was made. Some subperiosteal dissection was carried out medially. The fat pad was resected from beneath the patellar tendon. The lateral patellofemoral ligament was released. The patella was everted and the knee was flexed. The osteophytes were taken off the distal femur. The ACL and PCL were then released from the distal femur and the tibia subluxated anteriorly. The external tibial alignment jig was then placed in the anterior face of the tibia and adjusted 14 mm medially. Proximal tibial cut was made to remove about a millimeter or 2 of bone from the most deficient aspect of the medial tibial plateau. The tibia was then sized to a size 75. Attention was then drawn to the femur. The distal femur was entered with a sharp drill bit. Intramedullary canal was suctioned. A left 5 degree valgus cutting guide was placed. Distal femoral cutting block was pinned in place. Distal femoral cut was made to take an additional 3 mm of bone off the distal femur. I then brought the knee out into extension. I did release some of the IT band to equalize the extension gap. Great care was taken to protect the peroneal nerve at all times. I then elected to resect an additional 2 mm of bone off the distal femur as it still seemed a little tight in extension. I put the cutting block back on the pins and moved it back 2 mm and then recut the distal femur. The distal femur was then sized. We downsized this slightly to a size 65. The AP cutting block was pinned parallel to the epicondylar axis, which was 6 degrees of external rotation. The anterior cut, anterior chamfer, posterior cut, and posterior chamfer cuts were made. Box cutting guide was placed and adjusted slightly lateral and the box cut was made. The knee was flexed. The remnants of the medial and lateral menisci were excised. The osteophytes were taken off the posterior aspect of the femur. Trial femoral component was placed. Tibial tray was pinned in maximum external rotation and a drill and stem punch were used to create defect in proximal tibia for the tibial tray. The knee was then trialed and the 10 mm insert fit most appropriately. Attention was then drawn to the patella. The patella was cleaned of all soft tissues. Patella thickness measured 22 mm in thickness and was cut down to 13. It was sized to a size 31 patella. Lug holes were drilled for the 31 patella. Lateral osteophyte was removed. Patella button was placed. Knee was taken through range of motion and the patella tracked nicely with no thumbs test. Attention was then drawn toward the placement of permanent components. All trial components were removed. A bone plug was placed in the distal femur to limit blood loss. A double batch of Palacos G cement was mixed. A left size 65 posterior stabilized femoral component, size 75 tibial tray, a 10 mm posterior stabilized polyethylene insert, and a 31 x 8 all poly patella were then cemented in place. The knee was brought out into full extension until cement hardened. A final cement check was then performed. Pericapsular tissues were injected with 100 mL of a combination of 20 mL of Exparel, 30 mL of normal saline, 50 mL of 0.25% Marcaine with epinephrine. The tourniquet was then let down for final tourniquet time of 57 minutes. Hemostasis was assured using electrocautery. The extensor mechanism was then closed with a combination of #1 PDS suture and #1 Vicryl suture in a [id number] fashion. Extensor mechanism was checked and found to be intact. Subcutaneous tissues were then closed with 2-0 Dexon suture in a buried interrupted fashion. Skin was closed with skin mitali. The leg was then cleaned and dried and a sterile dressing of Xeroform, 4 x 4s, sterile cast padding and Juma bandage were applied. The patient was then transferred to the recovery room in stable condition. The patient tolerated the procedure well with no complications. All needle and sponge counts were correct at the end of the operation. I attest to the content of the Intraoperative Record and any orders documented therein. Any exception s are noted below.
[2017-05-09] MEDS ORDERED: ACET-24 PO (21:51)
[2017-05-09] MEDS ORDERED: TRAM-453 PO (21:51)
[2017-05-09] MEDS ORDERED: FRRG PO (21:51)
[2017-05-09] MEDS: ACETAMINOPHEN 500 MG TAB PO SCH (21:55)
--- NOTE | 2017-05-09 21:55 | Discharge Instructions ---
Discharge Instructions Date of Service May 09, 2017. Admission Reason for Admission: Left Knee Degenerative Joint Disease Discharge Discharge Diagnosis / Problem: Left Knee Replacement Discharge Goals Goal(s): Decrease discomfort, Improve function, Increase independence, Improve disease control, Therapeutic intervention Activity Recommendations Activity Limitations: per Instructions/Follow-up section Weightbearing Status: Left weightbearing . Instructions / Follow-Up Instructions / Follow-Up ACTIVITY RECOMMENDATIONS: Physical Therapy: * You will go to physical therapy three times each week for four to six weeks after your surgery in order to regain your knee range of motion and to retrain your knee to work properly. * It is just as important to make sure you are getting your knee perfectly straight as it is to regain your knee bend. * Taking a pain pill an hour before therapy can help you have a more productive and comfortable therapy session. Home Exercise: * You were shown a series of exercises (heel props, heel slides, etc.) in the hospital. Do these exercises three to four times each day including the exercises you were shown in physical therapy. Walking: * Get up and walk several times each day. For the first four weeks, try not to stand or walk for more than one hour at a time. If you do stand or walk for more than one hour, you will not hurt anything, but your knee and leg will likely swell. * As you feel comfortable, you may change from the walker or crutches to a cane and then to independent walking. MEDICATIONS: New Medicine: * You will likely be taking one or more of these medications: 1. Tramadol - A quick and shorter-acting pain medication. Take one to two tablets every four to six hours to lessen your pain. 2. Iron Sulfate - Take two times each day for the month after surgery to help you replace the blood lost during surgery. 3. Coumadin - Thins your blood to lessen the chance of forming a blood clot. The dose of this is different for each person and is based on your blood tests that are done every Saturday and for the next 6 weeks. * The most common side effects of pain medicine and iron are nausea and constipation. If nausea or constipation is too much of a problem or if you have any questions about your new medicines or doses, call [facility] at . We will try to help you manage these issues. VERY IMPORTANT TO READ AND REVIEW" Pain: * The immediate post-operative period after knee replacement surgery is often quite painful. * You are given a prescription for pain medicine. You should take it, as directed, when you need it, especially before physical therapy and before going to bed. Pain that interferes with sleep is very common and can last several months. * You will likely need pain medicine for the first four to six weeks. It will not stop all of the pain. The pain will lessen and as you feel better, you may change to milder pain medicine such as Tylenol. * The most common side effects of pain medicine are nausea and constipation, so don't take more than you need. SPECIAL CARE INSTRUCTIONS: TEDs/Elastic Stockings: * The white elastic stockings help limit swelling and prevent blood clots from forming in your legs. The more you wear them, the more they work. * Wear them for six weeks after knee replacement surgery and four weeks after partial knee replacement. Prevention of Infection: * Take antibiotics one hour before any dental cleaning, dental work, urological procedure, gastrointestinal procedure or any invasive surgery in order to prevent your new joint from getting infected. * You may get the antibiotics from the doctor performing the procedure or you may call our office at before and we will call in a prescription to the pharmacy of your choice. Things to Watch For: * Drainage from the incision site that occurs more than one week after your surgery. * Severely increased knee/leg pain or swelling. * Increased redness at the incision site. * Fever above 102 degrees Fahrenheit. * Unusual chest pain or shortness of breath. * Unusual pain or burning with urination. Call [facility] at with any of the above problems or if you have any questions about your medicines or recovery. FOLLOW UP VISIT: Make an appointment to see your doctor for approximately two weeks after surgery for a progress check and staple removal by calling the office at . Current Hospital Diet Patient's current hospital diet: Regular Diet Discharge Diet Recommended Diet: Regular Diet Procedures Procedures Performed: Left Total Knee Arthroplasty Pending Studies Studies pending at discharge: no Medical Emergencies . Who to Call and When: Medical Emergencies: If at any time you feel your situation is an emergency, please call [phone] immediately. . Non-Emergent Contact Non-Emergency issues call your: Surgeon . "Provider Documentation" section prepared by Patrick Bautista. . VTE Core Measure Inpt VTE Proph given/why not?: Marty (Coumadin), Ayde Sanchez, SCD's
[2017-05-10] MEDS: KETOROLAC TROMETHAMINE 15 MG/ML VIAL IV. SCH ×4 (01:51→14:09)
[2017-05-10 03:50] VITALS: BP 114/71; PULSE 76; TEMP 36.7; O2SAT 94
[2017-05-10] MEDS: D5W AND 1/2NSS + 20MEQ KCL 1,000 ML IV SCH ×2 (04:26→13:25)
[2017-05-10] MEDS: HYDROCORTISONE IV 100 MG in SYRINGE 0 ML IV SCH ×2 (04:27→12:00)
[2017-05-10] MEDS: CEFAZOLIN IV 1,000 MG in DEXTROSE 5% 50ML 50 ML IV SCH (04:27)
[2017-05-10] MEDS: ACETAMINOPHEN 500 MG TAB PO SCH ×3 (05:27→21:52)
[2017-05-10 06:11] LABS: HEMATOCRIT 34.7 % (42-52); MEAN CELL VOLUME 86.5 fL (80-100); MEAN CORPUSCULAR HEMOGLOBIN 28.7 pg (25-34); MEAN CORPUSCULAR HGB CONC 33.1 g/dl (32-36); MEAN PLATELET VOLUME 9.4 fL (7.4-10.4); PLATELET COUNT 135 K/uL (130-400); RED BLOOD COUNT 4.01 M/uL (4.7-6.1)
[2017-05-10 06:23] LABS: INR 1.2 (0.9-1.1); PROTHROMBIN TIME (PATIENT) 12.6 SECONDS (9.0-12.0)
[2017-05-10 06:45] LABS: BUN/CREATININE RATIO 12.1 (10-20); CALCIUM 8.6 mg/dl (8.5-10.1); CREATININE 1.4 mg/dl (0.60-1.40); POTASSIUM 4.2 mmol/L (3.5-5.1)
[2017-05-10 07:19] VITALS: BP 112/70; PULSE 76; TEMP 36.8; O2SAT 94
--- NOTE | 2017-05-10 07:59 | PROGRESS NOTE ---
DATE: 05/10/2017 DATE: 05/10/2017. SUBJECTIVE: An 82-year-old gentleman postop day 1 from a left knee replacement. He is doing pretty well. A little bit confused overnight. Seems pretty awake and alert this morning but still slightly confused. Denies any chest pain or shortness of breath. No significant knee pain. OBJECTIVE: VITAL SIGNS: Temperature 36.8. Vital signs stable. PHYSICAL EXAMINATION: GENERAL: Reveals a healthy pleasant elderly male. He is lying in bed, looks pretty comfortable. LUNGS: Clear to auscultation. HEART: Regular rate and rhythm. ABDOMEN: Soft, nontender, nondistended. EXTREMITY EXAMINATION: Grossly neurovascularly intact except as follows: Examination of the left leg reveals the dressing to be clean, dry, and intact. He can dorsiflex and plantarflex his foot appropriately. He is neurologically intact. LABORATORY DATA: Hemoglobin 11.5, hematocrit 34.7. INR 1.2. Electrolytes are stable. ASSESSMENT: An 82-year-old gentleman postop day 1 from a left knee replacement, doing pretty well. A little bit confused overnight which is not too surprising. He seems a bit better this morning but still not completely back to baseline. He is neurologically intact. PLAN: 1. DVT prophylaxis including thigh-high TEDs, SCDs, and Coumadin. We will start him on prophylactic Lovenox 24 hours after surgery until is INR is more in the therapeutic range. His normal dose of Coumadin 2.5 mg every day and then 1 day 5 mg. 2. PT/OT. Weightbearing as tolerated. Left total knee protocol. 3. Pain control. Doing pretty well with current pain regimen. We are going to stick to Tylenol as much as possible to limit issues with confusion. 4. Disposition. He is planning to be discharged to home with some home health once adequately recovered.
[2017-05-10] MEDS: FERROUS GLUCONATE 324 MG TAB PO SCH ×4 (08:05→18:43)
[2017-05-10] MEDS: MULTIVITAMIN TAB PO SCH (08:06)
[2017-05-10] MEDS: LORATADINE 10 MG TAB PO SCH (08:06)
[2017-05-10] MEDS: DOCUSATE SODIUM 100 MG CAP PO SCH ×2 (08:06→21:51)
--- NOTE | 2017-05-10 08:37 | Anesthesiology Progress Note ---
Anesthesia Post Op Note Date & Time May 10, 2017 at 08:36 Vital Signs Pain Intensity: 0.0 Vital Signs Past 12 Hours Date Time Temp Pulse Resp B/P (MAP) Pulse Ox O2 Delivery O2 Flow Rate FiO2 05/10/17 07:52 Room Air 05/10/17 07:19 36.8 76 16 112/70 (84) 94 Room Air 05/10/17 03:50 36.7 76 18 114/71 (85) 94 Room Air 05/09/17 23:18 Nasal Cannula 2.0 05/09/17 22:55 36.7 76 16 125/76 (92) 93 Nasal Cannula 2.0 Notes Mental Status: alert / awake / arousable, participated in evaluation Pt Amnestic to Procedure: Yes Nausea / Vomiting: adequately controlled Pain: adequately controlled Airway Patency, RR, SpO2: stable & adequate BP & HR: stable & adequate Hydration State: stable & adequate Anesthetic Complications: no major complications apparent
[2017-05-10] MEDS ORDERED: MAGNESIUM OXIDE 400 MG TAB PO SCH (09:00)
[2017-05-10 11:32] VITALS: BP 121/74; PULSE 74; TEMP 36.5; O2SAT 98
[2017-05-10] MEDS ORDERED: ENOXAPARIN 30 MG/0.3 ML SYR SQ SCH (15:00)
[2017-05-10 15:19] VITALS: BP 120/66; PULSE 75; TEMP 36.5; O2SAT 97
[2017-05-10] MEDS ORDERED: WARFARIN SOD 5 MG TAB PO ONE (16:00)
[2017-05-10] MEDS ORDERED: KETOROLAC TROMETHAMINE 15 MG/ML VIAL IV. PRN (21:00)
[2017-05-10] MEDS: TRAMADOL HCL 50 MG TAB PO PRN (21:50)
[2017-05-10] MEDS: ROPINIROLE HCL 1 MG TAB PO SCH (21:51)
[2017-05-10] MEDS: ROSUVASTATIN CALCIUM 10 MG TAB PO SCH (21:51)
[2017-05-10] MEDS: PANTOprazole SOD 40 MG TAB PO SCH (21:51)
[2017-05-10] MEDS: SENNA 8.6 MG TAB PO SCH (21:51)
[2017-05-10] MEDS: ALFUZosin TAB 10 MG TAB PO SCH (21:51)
[2017-05-10 23:50] VITALS: BP 136/78; PULSE 77; TEMP 36.5; O2SAT 96
[2017-05-11] MEDS: ACETAMINOPHEN 500 MG TAB PO SCH (06:21)
[2017-05-11 07:15] LABS: INR 2.2 (0.9-1.1); PROTHROMBIN TIME (PATIENT) 24.9 SECONDS (9.0-12.0)
[2017-05-11 08:05] VITALS: BP 123/73; PULSE 75; TEMP 36.6; O2SAT 95
[2017-05-11] MEDS: DOCUSATE SODIUM 100 MG CAP PO SCH (09:19)
[2017-05-11] MEDS: MULTIVITAMIN TAB PO SCH (09:19)
[2017-05-11] MEDS: FERROUS GLUCONATE 324 MG TAB PO SCH (09:19)
[2017-05-11] MEDS: LORATADINE 10 MG TAB PO SCH (09:19)
[2017-05-11] MEDS: TRAMADOL HCL 50 MG TAB PO PRN (09:22)
[2017-05-11 10:39] VITALS: BP 123/73; PULSE 75; TEMP 36.6; O2SAT 95
--- NOTE | 2017-05-11 10:51 | PROGRESS NOTE ---
DATE: 05/11/2017 DATE: 05/11/2017. SUBJECTIVE: An 82-year-old gentleman postop day 2 from a left knee replacement. He is doing well. Some pain. Confusion is resolved. No chest pain or shortness of breath. OBJECTIVE: VITAL SIGNS: Temperature is 36.6. Vital signs stable. PHYSICAL EXAMINATION: GENERAL: Reveals a healthy pleasant elderly male. He is sitting up in his bedside chair and looks comfortable. LUNGS: Clear to auscultation. HEART: Regular rate and rhythm. ABDOMEN: Soft, nontender, nondistended. EXTREMITY EXAMINATION: Grossly neurovascularly intact except as follows: Examination of the left leg reveals the leg to be well aligned. Some slight drainage on his dressing. He can dorsiflex and plantarflex his foot appropriately. He is neurologically intact. LABORATORY DATA: INR 2.2. ASSESSMENT: An 82-year-old gentleman postop day 2 from a left knee replacement, doing well. Pain is controlled. His INR is now therapeutic. PLAN: 1. DVT prophylaxis including thigh-high TEDs, SCDs, and Coumadin. Goal is to keep his INR between 2 and 3. 2. PT/OT. Weightbearing as tolerated. Left total knee protocol. 3. Pain control. Doing well with current pain regimen. 4. Disposition. Plan to discharge to home with some home health later today.
[2017-05-11] MEDS ORDERED: WARFARIN SOD 2.5 MG TAB PO SCH (16:00)
--- NOTE | 2017-05-17 15:56 | Discharge Summary ---
Orthopedic Discharge Summary Admission Date/Reason May 09, 2017 at 14:57 Left Knee Degenerative Joint Disease. Discharge Date/Disposition May 11, 2017 Home with services Diagnosis Principal Diagnosis: LEFT KNEE DJD Secondary Diagnoses/Problems: 1. 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 2. COPD/emphysema. 3. History of DVT. 4. Gastroesophageal reflux disease. 5. BPH. Procedure(s) Performed LEFT TKA Medication Reconciliation New Medications: Acetaminophen (Sb Non-Aspirin Extra Stre) 500 Mg Tab 1000 MG PO Q8 for 30 Days, #180 TAB Take 3 times per day to lessen pain. Ferrous Gluconate (Ferrous Gluconate) 324 Mg Tab 324 MG PO BIDM for 30 Days, #60 TAB Take to restore blood count. Changed Medications: Tramadol Hcl (Ultram) 50 Mg Tab 50-100 MG PO Q6H PRN for Pain for 30 Days, #60 TAB (Changed from: Q8; PRN PAIN) Take as needed for PAIN Continued Medications: Acyclovir (Zovirax 5% Oint) 90 Appln/30 Gm Oint 1 APPLN EXT PRN for COLD SORES Albuterol (Ventolin) Inh 2 PUFFS INH QID PRN for Shortness of Breath Alfuzosin Hcl (Alfuzosin Hcl Er) 10 Mg Tab 10 MG PO QPM Bilberry (Vaccinium Myrtillus) (Bilberry) 100 Mg Cap 100 MG PO 3XWK Clindamycin HCl (Clindamycin HCl) 300 Mg Cap 2 CAP PO ONE HR PRIOR TO DENT for 10 Days, CAP TAKES 2 CAP 1 HR PRIOR TO DENTAL SAVANNA Coenzyme Q10 (Ubidecarenone) (Co Q 10) 100 Mg Cap 100 MG PO QAM Esomeprazole Magnesium (Nexium) 40 Mg Capcr 40 MG PO QPM, CAP Loratadine (Claritin) 10 Mg Tab 1 TAB PO QAM, TAB Magnesium (Magnesium 250 mg) 1 Tab Tab 1 TAB PO EVERY OTHER DAY TAKES IN AM Polyethylene Glycol 3350 (Miralax) 1 Pow Pow 17 GM PO UD PRN for PRN, #255 GM Prednisone (Prednisone) 5 Mg Tab 5 MG PO QAM, TAB Risedronate Sodium (Actonel) 150 Mg Tab 150 MG PO MONTHLY FIRST OF MONTH Ropinirole HCl (Ropinirole HCl) 1 Mg Tab 1 MG PO HS Rosuvastatin Calcium (Crestor) 10 Mg Tab 10 MG PO QPM, TAB Warfarin Sod (Coumadin) 2.5 Mg Tab 2.5 MG PO SEE NOTE , TAB TAKES 1 TAB EVERY DAY EXCEPT SAT Warfarin Sodium (Warfarin Sodium) 5 Mg Tab 1 TAB PO WEDNESDAYS Discontinued Medications: Ferrous Sulfate ( Ferrous Sulfate) 325 Mg Tab 1 TAB PO DAILY for 30 Days, #30 TAB 3 Refills Admission Physical Exam As per Admitting History & Physical. Hospital Course RAISSA WAS ADMITTED ON 6 AND UNDERWENT TKA. HE TOLERATED THE PROCEDURE WELL. HE WAS TRANSFERRED TO THE PACU POST OP AND LATER TO THE ORTHOPEDIC FLOOR FOR FURTHER. HE WAS GIVEN ANCEF FOR ANTIBIOTIC PROPHYLAXIS. TEDS, SCD'S, COUMADIN AND LOVENOX FOR DVT PROPHYLAXIS. HE HEMOGLOBIN, HEMATOCRIT, AND VITAL SIGNS WERE MONITORED DURING HIS HOSPITAL. HE DID NOT REQUIRE ANY BLOOD TRANSFUSIONS. THERE WERE NO COMPLICATIONS. BY POD#2 HE WAS TOLERATING A GENERAL DIET. PAIN WAS CONTROLLED WITH ORAL PAIN MEDICATIONS. HE WAS PARTICIPATING IN PT. HAD NO S/S OF DVT. ON POD#2 HE WAS DISCHARGED HOME WITH HOME HEALTH. HE WAS GIVEN PRINTED DISCHARGE INSTRUCTIONS WELL PRESCRIPTIONS ABOVE. CONTINUE PT, WBAT. TEDS. FOLLOW UP IN 10-12 DAYS OR SOONER IF THERE ARE PROBLEMS OR CONCERNS. Discharge Instructions Please refer to the electronic Patient Visit Report (Discharge Instructions) for additional information.
[2017-05-18] MEDS ORDERED: RISEDRONATE 30 MG PO SCH (07:00)
[2017-09-24] MEDS ORDERED: TPRSR25 PO (11:42)
== END 2017-05-11 12:18 | disposition home health service (06) | DRG 470 ==
LOC: C.ACU 09:38 → C.3E 14:57 → ENRESERV 15:49
PROVIDERS: ADMIT Orthopaedic Surgery Sports Medicine; ATTEND Orthopaedic Surgery Sports Medicine
PROC: 0SRD0J9 Replacement of Left Knee Joint with Synthetic Substitute, Cemented, Open Approach (ICD-10-PCS; principal; 2017-05-09 12:30)
DX: M17.12 Unilateral primary osteoarthritis, left knee (principal); J44.9 Chronic obstructive pulmonary disease, unspecified; K21.9 Gastro-esophageal reflux disease without esophagitis; N40.0 Benign prostatic hyperplasia without lower urinary tract symptoms; Z51.81 Encounter for therapeutic drug level monitoring; Z79.899 Other long term (current) drug therapy; Z79.01 Long term (current) use of anticoagulants; Z79.52 Long term (current) use of systemic steroids; Z95.2 Presence of prosthetic heart valve; Z86.718 Personal history of other venous thrombosis and embolism

== ENCOUNTER 2017-05-19 12:38 | Emergency (ER) | payer OTHER ==
[~2017-05-19] VITALS: Ht 165.1 cm; Wt 70.0 kg
[~2017-05-19 12:38] MED LIST changes: +ACET-24 PO; -ACETAMINOPHEN 500 MG TAB PO SCH; -BUPIVACAINE 0.25% 30 ML VIAL ONE; -BUPIVACAINE 0.5 % 5 MG/1 ML PF 10ML VIAL ONE; -BUPIVACAINE LIPOSOME 266 MG, BUPIVACAINE/EPINEPHRINE INJ 50 ML, SODIUM CHLORIDE 0.9% PF... INFIL SCH; -FAMOTIDINE 20 MG TAB PO SCH; +FRRG PO; -GABAPENTIN 300 MG CAP PO SCH; -GENERAL ORDER PROBLEM SCH; -LACTATED RINGER'S 1000ML 1,000 ML IV SCH; -METOCLOPRAMIDE HCL 10 MG TAB PO SCH; -SCOPOLAMINE 1.5 MG TDSY TD SCH; -TRANEXAMIC ACID INJ 1,000 MG in SODIUM CHLORIDE 0.9% 100ML 100 ML IV SCH
[2017-05-19 12:43] VITALS: Ht 165.1 cm; Wt 70.0 kg
[2017-05-19 14:02] LABS: BASO % 0.4 %; BASO ABS # 0.04 K/uL (0-0.2); COMPLETE YES; EOS % 0.8 %; HEMATOCRIT 33.4 % (42-52); IG% 4.2 %; LYMPH ABS # 0.83 K/uL (1.2-3.4); MEAN CORPUSCULAR HEMOGLOBIN 28.6 pg (25-34); MEAN CORPUSCULAR HGB CONC 31.7 g/dl (32-36); MEAN PLATELET VOLUME 8.8 fL (7.4-10.4); MONO % 7.2 %; NEUT % 78.4 %; PLATELET COUNT 254 K/uL (130-400); RED BLOOD COUNT 3.71 M/uL (4.7-6.1); WHITE BLOOD COUNT 9.22 K/uL (4.8-10.8)
[2017-05-19 14:12] LABS: INR 1.3 (0.9-1.1); PARTIAL THROMBOPLASTIN RATIO 1.3; PROTHROMBIN TIME (PATIENT) 14.4 SECONDS (9.0-12.0)
[2017-05-19 14:18] LABS: BUN/CREATININE RATIO 18.6 (10-20); C-REACTIVE PROTEIN 6.34 mg/dl (0-0.29); CALCIUM 8.6 mg/dl (8.5-10.1); CREATININE 1.2 mg/dl (0.60-1.40); POTASSIUM 4.5 mmol/L (3.5-5.1); URIC ACID 4.7 mg/dl (2.6-7.2)
[2017-05-19] MEDS ORDERED: OXYC-609 PO (14:21)
[2017-05-19] MEDS ORDERED: VNTHFA/IN INH (14:24)
[2017-05-19] MEDS ORDERED: ACYC5CRE4 EX (14:24)
--- NOTE | 2017-05-19 14:29 | EMERGENCY ROOM VISIT NOTE ---
History Report prepared by Thee: Thang Bullock Under the Supervision of: Dr. Win Arrington M.D. First contact with patient: 13:15 Chief Complaint: LEG PAIN,LEG INJURY Stated Complaint: POST KNEE REPLACEMENT, BURNING IN L ANKLE History of Present Illness The patient is an 82 year old male who presents to the Emergency Room with complaints of pain in the left leg and foot that began on Saturday two days prior to arrival. The patient had knee replacement surgery of the left knee on the 09 of May, 10 days prior to this visit. The patient describes the pain in his foot as "burning." He states the pain in the calf and foot is "severe" and is significantly worsened by applying weight to the leg. Since the surgery he has also began to experience some burning with urination and increased frequency of voiding. He has no other complaints at this time and denies any fevers, chills, chest pain, or shortness of breath. Source of History: patient Onset: 2 days [employer]ILLI[employer] Position: leg (left), foot (left) Symptom Intensity: severe Quality: burning Modifying Factors (Worsening): other (Applying weight) Associated Symptoms: No fevers, No chest pain, No SOB Review of Systems See HPI for pertinent positives & negatives. A total of 10 systems reviewed and were otherwise negative. Past Medical & Surgical Medical Problems: (1) Atrial fibrillation (2) BPH (benign prostatic hypertrophy) (3) Carotid artery disease (4) Cholelithiases (5) Chronic steroid use (6) CKD (chronic kidney disease), stage III (7) COPD (chronic obstructive pulmonary disease) (8) Diverticular disease of colon (9) Dyslipidemia (10) History of atrial flutter (11) History of electrophysiologic study (12) History of paroxysmal supraventricular tachycardia (13) History of prostate cancer (14) History of pulmonary embolism (15) History of ventricular tachycardia (16) Hypertension (17) Hypertensive heart disease (18) Left Knee DJD (19) Osteoarthritis (20) Restless legs syndrome (21) Spinal stenosis of lumbar region Surgical Problems: (1) Status post aortic valve replacement (2) Status post cataract extraction (3) Status post inguinal hernia repair (4) Status post mitral valve repair (5) Status post partial colectomy Old medical records were reviewed. Nurse's notes were reviewed and I agree with. Family History Arthritis MOTHER Asthma SON Coronary artery disease FATHER Diabetes mellitus BROTHER Esophageal cancer BROTHER Social History Smoking Status: Never Smoker Marital Status: Housing Status: lives with family Occupation Status: retired Current/Historical Medications Scheduled Alfuzosin Hcl (Alfuzosin Hcl Er), 10 MG PO QPM Cephalexin Monohydrate (Keflex), 500 MG PO QID Clindamycin HCl (Clindamycin HCl), 2 CAP PO ONE HR PRIOR TO DENT Coenzyme Q10 (Ubidecarenone) (Co Q 10), 100 MG PO QAM Esomeprazole Magnesium (Nexium), 40 MG PO QPM Ferrous Gluconate (Ferrous Gluconate), 324 MG PO BIDM Loratadine (Claritin), 1 TAB PO QAM Magnesium (Magnesium 250 mg), 1 TAB PO DAILY Prednisone (Prednisone), 5 MG PO QAM Risedronate Sodium (Actonel), 150 MG PO MONTHLY Ropinirole HCl (Ropinirole HCl), 1 MG PO HS Rosuvastatin Calcium (Crestor), 10 MG PO QPM Warfarin Sod (Coumadin), 2.5 MG PO SEE NOTE Warfarin Sodium (Warfarin Sodium), 1 TAB PO WEDNESDAYS Scheduled PRN Acyclovir Topical (Zovirax), 1 APPLN EX PRN PRN for COLD SORES Albuterol Hfa (Ventolin Hfa), 2 PUFFS INH QID PRN for Shortness of Breath Oxycodone HCl (Oxycodone HCl), 5-10 MG PO Q6 PRN for Pain Polyethylene Glycol 3350 (Miralax), 17 GM PO UD PRN for PRN Allergies Coded Allergies: Penicillins (Verified Allergy, Intermediate, RASH/EL-ORBITAL EDEMA, 05/09) Physical Exam Vital Signs Date Time Temp Pulse Resp B/P (MAP) Pulse Ox O2 Delivery O2 Flow Rate FiO2 05/19/17 15:20 86 123/81 96 Room Air 05/19/17 14:38 36.7 83 18 122/79 96 Room Air 05/19/17 12:43 36.8 82 16 125/69 96 Room Air Physical Exam General: Well developed well nourished in no acute distress, breathing comfortably on room air. Normal speech HEENT: Normal cephalic atraumatic. Pupils are equal round and reactive to light. Extraocular movements are intact. Oropharynx is pink with moist mucous membranes. No swelling of the mouth lips or tongue. Neck: Supple with a midline trachea. No meningeal signs or stiffness, no JVD or bruits. No Stridor. Chest: Clear to auscultation bilaterally. No wheezes or rhonchi. No increased work of breathing. Heart: regular rate and rhythm. Abdomen: Soft nontender, nondistended without rebound guarding or rigidity. Extremities: The LLE has bruising over the foot and toes. The tips of the toes are pink and well profused appearing. There are bounding pulses in the left foot with mild redness in the left lateral foot with tenderness. The knee is not red or warm and the sutures are intact. Spine/Back. Non tender to palpation. No CVA tenderness Skin: Good turgor without rashes. Neurologic exam: Cranial nerves two through 12 are intact. Motor and sensation are intact and symmetrical throughout. Medical Decision & Procedures Laboratory Results 05/19/17 13:50 Red Blood Count 3.71, Mean Corpuscular Volume 90.0, Mean Corpuscular Hemoglobin 28.6, Mean Corpuscular Hemoglobin Concent 31.7, Mean Platelet Volume 8.8, Neutrophils (%) (Auto) 78.4, Lymphocytes (%) (Auto) 9.0, Monocytes (%) (Auto) 7.2, Eosinophils (%) (Auto) 0.8, Basophils (%) (Auto) 0.4, Neutrophils # (Auto) 7.23, Lymphocytes # (Auto) 0.83, Monocytes # (Auto) 0.66, Eosinophils # (Auto) 0.07, Basophils # (Auto) 0.04 05/19/17 13:50 Test 05/19/17 13:50 White Blood Count 9.22 K/uL (4.8-10.8) Red Blood Count 3.71 M/uL (4.7-6.1) Hemoglobin 10.6 g/dL (14.0-18.0) Hematocrit 33.4 % (42-52) Mean Corpuscular Volume 90.0 fL (80-100) Mean Corpuscular Hemoglobin 28.6 pg (25-34) Mean Corpuscular Hemoglobin Concent 31.7 g/dl (32-36) Platelet Count 254 K/uL (130-400) Mean Platelet Volume 8.8 fL (7.4-10.4) Neutrophils (%) (Auto) 78.4 % Lymphocytes (%) (Auto) 9.0 % Monocytes (%) (Auto) 7.2 % Eosinophils (%) (Auto) 0.8 % Basophils (%) (Auto) 0.4 % Neutrophils # (Auto) 7.23 K/uL (1.4-6.5) Lymphocytes # (Auto) 0.83 K/uL (1.2-3.4) Monocytes # (Auto) 0.66 K/uL (0.11-0.59) Eosinophils # (Auto) 0.07 K/uL (0-0.5) Basophils # (Auto) 0.04 K/uL (0-0.2) RDW Standard Deviation 48.1 fL (36.4-46.3) RDW Coefficient of Variation 14.8 % (11.5-14.5) Immature Granulocyte % (Auto) 4.2 % Immature Granulocyte # (Auto) 0.39 K/uL (0.00-0.02) Erythrocyte Sedimentation Rate 35 mm/hr (0-14) Prothrombin Time 14.4 SECONDS (9.0-12.0) Prothromb Time International Ratio 1.3 (0.9-1.1) Activated Partial Thromboplast Time 33.4 SECONDS (21.0-31.0) Partial Thromboplastin Ratio 1.3 Anion Gap 5.0 mmol/L (3-11) Est Creatinine Clear Calc Drug Dose 42.7 ml/min Estimated GFR () 65.8 Estimated GFR (Non- 56.8 BUN/Creatinine Ratio 18.6 (10-20) Uric Acid 4.7 mg/dl (2.6-7.2) Calcium Level 8.6 mg/dl (8.5-10.1) C-Reactive Protein 6.34 mg/dl (0-0.29) Laboratory studies as stated above per my review. Medications Administered Medications (Trade) Dose Ordered Sig/Deena Route Start Time Stop Time Status Last Admin Dose Admin Oxycodone HCl (Roxicodone Immediate Rel Tab) 5 mg NOW STAT PO 05/19/17 14:38 05/19/17 14:39 DC 05/19/17 14:45 5 MG Oxycodone HCl (Roxicodone Immediate Rel Tab) 5 mg NOW STAT PO 05/19/17 14:40 05/19/17 14:42 DC 05/19/17 14:45 5 MG Cephalexin Monohydrate (Keflex 500MG Home Pack) 1 homepack NOW ONCE PO 05/19/17 16:00 05/19/17 16:01 DC 05/19/17 16:05 1 HOMEPACK ED Course 1320: Past medical records reviewed. The patient was evaluated in room B2, and a complete history and physical examination were performed. 1438: Ordered Oxycodone HCl 5 mg PO. 1440: Ordered Oxycodone HCL 5 mg PO. Medical Decision Blood pressure Screening: Patient was found to have normal blood pressure on screening and does not require follow-up. Medication Reconciliation: I attest that I have personally reviewed the patient' s current medication list. Differential Diagnosis includes; DVT, arterial compromise, infection, gout, electrolyte or metabolic abnormality. This patient comes in as described above he has some pain along the left lateral foot with some mild redness. He is status post knee replacement and the knee itself looks great with normal-appearing incision without redness warmth or drainage. He may also have some mild redness in his medial thigh above the knee. He's had no fever chills or systemic complaints. He has no evidence of compartment syndrome. He has normal neurovascular status in his feet. He has bounding distal pulses. His showed me a picture of his leg prior and he had bruises of almost entire leg which now he has just bruising of the foot and toes. Multiple blood testing was obtained his inflammatory markers are mildly elevated although he is afebrile. X-ray of the foot as well as an ultrasound was obtained area there is no DVT. X-rays do not show any fracture. I did discuss case Dr. Diez. He recommends putting her on Keflex for possible cellulitis and they will see her in the morning for recheck. The patient is happy with the plan and he does not want to be admitted and I think that this reasonable. He was given Keflex here and a home pack. He should return if: Worsening of symptoms, increasing redness and warmth, fever or chills , any new problems or concerns as can call the office tomorrow at 8:00 in the morning to get rechecked. Impression Primary Impression: Leg pain, left Scribe Attestation The scribe's documentation has been prepared under my direction and personally reviewed by me in its entirety. I confirm that the note above accurately reflects all work, treatment, procedures, and medical decision making performed by me. Departure Information Prescriptions Cephalexin Monohydrate (Keflex) 500 Mg Cap 500 MG PO QID for 7 Days, #28 CAP Prov: Win Arrington M.D. 05/19/17 Referrals No Doctor, Assigned (PCP) Patient Instructions My [facility]
[2017-05-19] MEDS ORDERED: OXYCODONE HCL IR 5 MG TAB (IMMEDIATE RELEASE) PO STA ×2 (14:38→14:40)
--- NOTE | 2017-05-19 15:23 | DIAGNOSTIC IMAGING REPORT ---
ULTRASOUND LEFT LOWER EXTREMITY VENOUS CLINICAL HISTORY: Left leg pain. COMPARISON STUDY: Bilateral lower extremity venous ultrasound dated 09/14/2014. TECHNIQUE: Real-time, grayscale, and color Doppler sonography of the deep veins of the left lower extremity was performed from the inguinal crease to the calf. Compression and augmentation were utilized. FINDINGS: There is no sonographic evidence of deep venous thrombosis identified in the left lower extremity. The common femoral, superficial femoral, and popliteal veins are patent and normally compressible. The greater saphenous vein and the profunda femoris vein at the junction with the common femoral vein are clear. The visualized calf veins are patent. IMPRESSION: There is no sonographic evidence of deep venous thrombosis identified in the left lower extremity. Electronically signed by: Caleb Sams M.D. 05/19/2017 3:22 PM Dictated Date/Time: 05/19/2017 3:21 PM
--- NOTE | 2017-05-19 15:24 | DIAGNOSTIC IMAGING REPORT ---
LEFT FOOT 3 VIEWS CLINICAL HISTORY: Left foot pain. No reported history of trauma. FINDINGS: 3 views of the left foot are obtained. No prior studies are available for comparison at the time of dictation. The skeletal structures are osteopenic. No fracture is seen. Minimal degenerative narrowing is seen at the first metatarsophalangeal joint. There is a large plantar calcaneal enthesophyte. Soft tissue edema is present throughout the left foot. There is advanced atherosclerotic calcification of the regional arteries. IMPRESSION: Soft tissue swelling with no acute bony abnormality identified in the left foot. Electronically signed by: Caleb Sams M.D. 05/19/2017 3:23 PM Dictated Date/Time: 05/19/2017 3:22 PM
[2017-05-19] MEDS ORDERED: CEPH500C PO (15:55)
[2017-05-19] MEDS ORDERED: CEPHALEXIN 500MG HOME PACK 1 EA BTL PO ONE (16:00)
[2017-05-19 16:17] VITALS: BP 120/80; PULSE 84; TEMP 36.7; O2SAT 96
== END 2017-05-19 16:18 | disposition home or self-care (01) ==
LOC: C.EDB 12:41
DX: M79.605 Pain in left leg (principal); Z96.652 Presence of left artificial knee joint; I48.91 Unspecified atrial fibrillation; N40.0 Benign prostatic hyperplasia without lower urinary tract symptoms; I25.10 Atherosclerotic heart disease of native coronary artery without angina pectoris; N18.3 Chronic kidney disease, stage 3 (moderate); J44.9 Chronic obstructive pulmonary disease, unspecified; E78.5 Hyperlipidemia, unspecified; Z85.46 Personal history of malignant neoplasm of prostate; Z86.711 Personal history of pulmonary embolism; I12.9 Hypertensive chronic kidney disease with stage 1 through stage 4 chronic kidney disease, or unspecified chronic kidney disease; M19.90 Unspecified osteoarthritis, unspecified site; G25.81 Restless legs syndrome; M48.06 Spinal stenosis, lumbar region; Z82.49 Family history of ischemic heart disease and other diseases of the circulatory system; Z83.3 Family history of diabetes mellitus; Z80.9 Family history of malignant neoplasm, unspecified; Z79.01 Long term (current) use of anticoagulants; Z79.899 Other long term (current) drug therapy

== ENCOUNTER → 2018-01-07 | Outpatient (CLI) | payer OTHER ==
[~2018-01-07] MED LIST changes: -ACET-24 PO; +ACYC5CRE4 EX; -ACYC5OIN3 EXT; -ALBUAER2 INH; -BILB1CAP PO; -FRRG PO; -LORA10TA51 PO; +TPRSR25 PO; -TRAM-453 PO; +VNTHFA/IN INH
--- NOTE | 2018-01-07 17:56 | ECHOCARDIOGRAM REPORT ---
*NOTICE TO RECEIVING CONSTITUTION PARTY AGENCY This information is strictly Confidential and protected under [place] law. [place] law prohibits you from making any further disclosure of this information unless further disclosure is expressly permitted by the written consent of the person to whom it pertains or is authorized by law. A general authorization for the release of medical or other information is not sufficient for this purpose. Hospital accepts no responsibility if the information is made available to any other person, INCLUDING THE PATIENT. Interpretation Summary * Name: RAISSA CARMEN Study Date: 01/07/2018 12:28 PM BP: 121/67 mmHg * Patient Location: [facility] HR: 81 * : 1935 (M/d/yyyy) Gender: Male Height: 65 in * Age: 82 yrs Ethnicity: [place] Weight: 154 lb * Ordering Physician: Andres Rainey * Referring Physician: Andres Rainey * Performed By: Blair Mariano RCS * * Reason For Study: Valvular Heart Dz * BSA: 1.8 m2 * -- Conclusions -- * The left ventricle is normal in size. * There is moderate concentric left ventricular hypertrophy. * The left ventricular wall motion is normal. * Left ventricular systolic function is normal. * Ejection Fraction = 65-70%. * The left atrium is moderately dilated. * There is a bioprosthetic aortic valve. * The gradient is normal for this prosthetic aortic valve. * Bioprosthetic leaflets are thin and move normally. * An annuloplasty ring is noted in the mitral position. * There is mild to moderate mitral stenosis. * There is mild mitral regurgitation. * There is mild tricuspid regurgitation. * Right ventricular systolic pressure is elevated at 40-50mmHg. Procedure Details * A complete two-dimensional transthoracic echocardiogram was performed (2D, M-mode, Doppler and color flow Doppler). Left Ventricle * The left ventricle is normal in size. * There is moderate concentric left ventricular hypertrophy. * Left ventricular systolic function is normal. * Ejection Fraction = 65-70%. * The left ventricular wall motion is normal. Right Ventricle * The right ventricle is normal in size and function. * There is a pacemaker lead in the right ventricle. Atria * The left atrium is moderately dilated. * Right atrial size is normal. * No ASD detected; PFO is not assessed. Mitral Valve * There is mild to moderate mitral stenosis. * There is mild mitral regurgitation. * An annuloplasty ring is noted in the mitral position. Tricuspid Valve * The tricuspid valve is normal. * There is no tricuspid stenosis. * There is mild tricuspid regurgitation. * Right ventricular systolic pressure is elevated at 40-50mmHg. Aortic Valve * There is a bioprosthetic aortic valve. * The gradient is normal for this prosthetic aortic valve. * Bioprosthetic leaflets are thin and move normally. Pulmonic Valve * The pulmonic valve is not well visualized. Great Vessels * The aortic root is normal size. Pericardium/Pleural * There is no pericardial effusion. Great Vessels * Normal inferior vena cava diameter and respiratory variation suggests normal central venous pressure. MMode 2D Measurements and Calculations IVSd 1.2 cm IVSs 1.3 cm LVIDd 4.3 cm LVIDs 2.9 cm LVPWd 1.2 cm LVPWs 1.4 cm IVS/LVPW 1.1 FS 32.3 % EDV(Teich) 85.3 ml ESV(Teich) 33.5 ml EF(Teich) 60.8 % EDV(cubed) 82.2 ml ESV(cubed) 25.6 ml EF(cubed) 68.9 % % IVS thick 6.1 % % LVPW thick 22.5 % LV mass(C)d 187.9 grams LV mass(C)dI 106.1 grams/m\S\2 LV mass(C)s 132.0 grams LV mass(C)sI 74.6 grams/m\S\2 SV(Teich) 51.8 ml SI(Teich) 29.3 ml/m\S\2 SV(cubed) 56.7 ml SI(cubed) 32.0 ml/m\S\2 asc Aorta Diam 3.8 cm EDV(MOD-sp4) 98.0 ml ESV(MOD-sp4) 43.0 ml EF(MOD-sp4) 56.1 % EDV(MOD-sp2) 72.0 ml ESV(MOD-sp2) 34.0 ml EF(MOD-sp2) 52.8 % SV(MOD-sp4) 55.0 ml SI(MOD-sp4) 31.1 ml/m\S\2 SV(MOD-sp2) 38.0 ml SI(MOD-sp2) 21.5 ml/m\S\2 Doppler Measurements and Calculations MV P1/2t max garret 276.1 cm/sec MV P1/2t 112.8 msec MVA(P1/2t) 2.0 cm\S\2 MV dec slope 716.9 cm/sec\S\2 Ao V2 max 178.8 cm/sec Ao max PG 13.2 mmHg Ao max PG (full) 5.2 mmHg Ao V2 mean 120.5 cm/sec Ao mean PG 6.9 mmHg Ao mean PG (full) 2.9 mmHg Ao V2 VTI 37.4 cm LV V1 max PG 8.0 mmHg LV V1 mean PG 3.9 mmHg LV V1 max 140.5 cm/sec LV V1 mean 91.2 cm/sec LV V1 VTI 30.2 cm PA V2 max 80.1 cm/sec PA max PG 2.7 mmHg TR max garret 331.2 cm/sec
== END | disposition home or self-care (01) ==
LOC: C.CPL 12:16
PROVIDERS: ATTEND Internal Medicine Cardiovascular Disease
DX: I11.9 Hypertensive heart disease without heart failure (principal); Z95.0 Presence of cardiac pacemaker; Z95.2 Presence of prosthetic heart valve; Z98.890 Other specified postprocedural states

== ENCOUNTER → 2018-01-09 | Outpatient (CLI) | payer OTHER ==
[2018-01-09 18:28] LABS: BASO % 0.5 %; BASO ABS # 0.03 K/uL (0-0.2); EOS % 1.4 %; EOS ABS # 0.08 K/uL (0-0.5); HEMATOCRIT 33.9 % (42-52); HEMOGLOBIN 10.4 g/dL (14.0-18.0); LYMPH % 16.5 %; LYMPH ABS # 0.92 K/uL (1.2-3.4); MEAN CELL VOLUME 80.7 fL (80-100); MEAN CORPUSCULAR HEMOGLOBIN 24.8 pg (25-34); MEAN CORPUSCULAR HGB CONC 30.7 g/dl (32-36); MEAN PLATELET VOLUME 9.8 fL (7.4-10.4); MONO % 8.4 %; MONO ABS # 0.47 K/uL (0.11-0.59); NEUT % 71.4 %; NEUT ABS # 3.98 K/uL (1.4-6.5); PLATELET COUNT 200 K/uL (130-400); RED CELL DISTRIBUTION WIDTH SD 58.9 fL (36.4-46.3); WHITE BLOOD COUNT 5.58 K/uL (4.8-10.8)
== END | disposition home or self-care (01) ==
LOC: C.LAB 17:48
PROVIDERS: ATTEND Internal Medicine Hematology & Oncology
DX: D50.9 Iron deficiency anemia, unspecified (principal)

== ENCOUNTER → 2018-02-26 | Outpatient (CLI) | payer OTHER ==
--- NOTE | 2018-02-26 09:38 | DIAGNOSTIC IMAGING REPORT ---
CT SCAN OF THE CHEST WITHOUT IV CONTRAST CLINICAL HISTORY: Asbestos exposure. Dyspnea. Interstitial lung disease. COMPARISON STUDY: Chest CT dated 09/06/2014. Chest x-ray dated 09/25/2017. TECHNIQUE: CT scan of the thorax was performed from the thoracic inlet to the upper abdomen. Additional prone imaging was performed. Images are reviewed in the axial, sagittal, and coronal planes. IV contrast was not administered for this examination as per the referring clinician. A dose lowering technique was utilized adhering to the principles of ALARA. CT DOSE: 611.20 mGycm FINDINGS: Thyroid: Imaged portions of the thyroid gland are normal in size and attenuation. Thoracic aorta: There is mild atherosclerotic calcification of the thoracic aorta, which is normal in caliber and demonstrates standard 3-vessel arch anatomy. Heart: The patient is status post midline sternotomy with evidence of aortic and mitral valve surgery. A single lead cardiac pacemaker is present in the left chest wall. The lead terminates in the right ventricle. The heart is enlarged and without pericardial effusion. The coronary arteries are densely calcified. The main pulmonary arteries are dilated consistent with pulmonary artery hypertension. Lungs and pleural spaces: There is no airspace consolidation typical for pneumonia or pleural effusion. The trachea and central airways are clear. There is no subpleural reticulation, traction bronchiectasis, or honeycombing. Calcified pleural plaques are seen in the anterior lungs, right greater than left. Small noncalcified pleural plaques are suggested posteriorly in the left lung on images #145 and #171. Mediastinum: There is no mediastinal lymphadenopathy. Becky: Not well assessed without IV contrast. Axillae: There is no axillary lymphadenopathy. Upper abdomen: There are numerous calcified gallstones. There is a small hiatal hernia. A large posterior gastric diverticulum is observed. Skeletal structures: The skeletal structures are osteopenic. Advanced arthritic change is seen in the shoulders. Mild degenerative change and hyperkyphosis are noted in the thoracic spine. There are mild superior endplate compression deformities of T3 and T4. No lytic or blastic bony lesions are seen. IMPRESSION: 1. 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 These are similar to the 2014 examination. 2. There is no CT evidence of interstitial lung disease. 3. No airspace consolidation or pleural effusion is identified. 4. Small noncalcified pleural plaques are present at the posterior left lung base. This is also likely related to asbestos related pleural disease, and these were not clearly seen on the 2014 examination. These are of low suspicion and can be followed if clinically warranted. 5. Cardiomegaly and cardiac pacemaker with evidence of pulmonary artery hypertension. 6. Cholelithiasis. 7. Large gastric diverticulum. 8. Additional findings as above. Electronically signed by: Caleb Sams M.D. 02/26/2018 9:36 AM Dictated Date/Time: 02/26/2018 9:26 AM
== END | disposition home or self-care (01) ==
LOC: C.CTS 08:55
PROVIDERS: ATTEND Internal Medicine Pulmonary Disease
DX: J61 Pneumoconiosis due to asbestos and other mineral fibers (principal); I51.7 Cardiomegaly; R06.09 Other forms of dyspnea; J98.4 Other disorders of lung; Z77.090 Contact with and (suspected) exposure to asbestos; Z95.0 Presence of cardiac pacemaker

== ENCOUNTER 2024-01-23 09:41 | Inpatient (IN) ==
[2024-01-23 10:30] LABS: iSTAT Creatinine 1.7 mg/dl (0.6-1.3); iSTAT Hemoglobin 11.9 g/dl (14.0-18.0); iSTAT Ionized Calcium 1.27 mmol/l (1.12-1.32); iSTAT Potassium 4.8 mmol/L (3.3-5.0)
[2024-01-23 10:34] LABS: Basophils # (auto) 0.01 K/uL (0.00-0.20); Basophils % (auto) 0.2 %; Eosinophils # (auto) 0.01 K/uL (0.00-0.50); Eosinophils % (auto) 0.2 %; Hemoglobin 10.8 g/dl (14.0-18.0); Immature Granulocytes # (auto) 0.04 K/uL (0.01-0.20); Immature Granulocytes % (auto) 0.7 %; Lymphocytes # (auto) 0.61 K/uL (1.20-3.40); Lymphocytes % (auto) 10.1 %; Mean Corpuscular Hemoglobin 28.1 pg (25.0-34.0); Mean Corpuscular Hgb Conc 29.2 g/dL (32.0-36.0); Mean Corpuscular Volume 96.4 fL (80.0-100.0); Monocytes # (auto) 0.52 K/uL (0.11-0.59); Monocytes % (auto) 8.6 %; Neutrophils # (auto) 4.84 K/uL (1.40-6.50); Neutrophils % (auto) 80.2 %; Platelet Count 117 K/uL (130-400); RDW Coefficient of Variation 17.4 % (11.5-14.5); RDW Standard Deviation 61.5 fL (36.4-46.3); Red Blood Count 3.84 M/uL (4.70-6.10); White Blood Count 6.03 K/ul (4.8-10.8)
[2024-01-23] MEDS: AZITHROMYCIN 500 MG in DEXTROSE 5% 250 ML IV STA (10:37)
[2024-01-23] MEDS: cefTRIAXone SODIUM 2,000 MG in DEXTROSE 5 % MINI-B 50 ML IV STA (10:37)
[2024-01-23 10:38] LABS: Base Excess VBG -5.2 mEq/L; HCO3 VBG 22 mmol/L; Oxygen Saturation VBG < 60.0 %; PCO2 VBG 51 mmHg (38-50); PO2 VBG 20 mmHg; pH VBG 7.25 (7.36-7.41)
--- NOTE | 2024-01-23 10:43 | Emergency Department Note ---
Impression & Plan Congestive heart failure, Community acquired pneumonia ED Provider Note NAME: RAISSA CARMEN AGE: 88 SEX: M : 1935 ARRIVES VIA: Walk-In INFORMANT: Patient, ED PROVIDER(S): Kaitlin Cadet MD CHIEF COMPLAINT: Respiratory distress HPI: This is an 88-year-old male presenting for respiratory distress. Patient history is obtained primarily from the as patient is currently unable to speak in full sentences. She states that starting Saturday, 2 days ago, he presented to his primary care physician who did a RSV test/COVID/flu test which revealed he pneumonia have RSV. He is taking prednisone as well as nebulizer. He has not had any improvement as she is significant worsening. This morning he woke up with significant difficulty breathing, wheezing and cough. He is having productive cough for the past few days. He notes no nausea or vomiting. ROS: See above HPI for pertinent positives & negatives. A total of 10 systems reviewed and were otherwise negative. PAST MEDICAL HISTORY: See Below PAST SURGICAL HISTORY: See Below FAMILY HISTORY: See Below SOCIAL HISTORY: See Below HOME MEDICATIONS: See Below ALLERGIES: See Below VITALS: See Below PHYSICAL EXAMINATION: General: resting comfortably in no acute distress Head: Normocephalic and atraumatic Eyes: Normal inspection, extraocular muscles intact Ear, nose, throat: Normal external exam Neck: Normal range of motion Respiratory: Diffuse rhonchi in all lung sweeney Cardiovascular: Regular rate/rhythm, no murmur GI: soft, nontender, no guarding or rebound Extremities: nontender, moves all extremities Neuro: The patient awake and alert, appropriately conversive, no focal deficits, symmetric faces Skin: Warm, dry, and intact MEDICAL DECISION MAKING: This is an 88-year-old male presenting for respiratory distress. Patient currently satting around 76% on room air. Patient has significantly tachypneic, using accessory muscle use, significant rhonchi. Patient was diagnosed with RSV, consider pneumonia versus PE versus aspiration. - Chest x-ray as independent interpreted by me reveals multifocal opacities concerning for multifocal pneumonia -Radiology read shows that this is a pulmonary vascular congestion -Labs reviewed with no leukocytosis, stable anemia, INR 4.1, electrolytes within normal limits, creatinine 1.53 -BNP is 1334 -Patient was given antibiotics on arrival for suspected pneumonia. -However after my evaluation, consider CHF. Will give 4 mg of IV Lasix to help elucidate. -Patient admitted to hospital service for further workup and treatment of his CHF versus pneumonia Differential diagnosis: Pneumonia, CHF, PE, ACS, aspiration ER treatment provided: See below Diagnostics interpreted by me: ECG: ECG independently interpreted by me with atrial flutter with PVCs, rate of 87, normal axis, normal QRS, normal QTc, no ST segment elevations consistent with STEMI criteria Cardiac Monitoring: An order was placed for continuous cardiac monitoring. The monitor shows a rate of with rhythm. Laboratory studies: As stated above and show below. Imaging studies: See below. Critical Care Note: I have personally spent 45 minutes of critical care time in the direct management of this patient. This includes bedside care, interpretation of diagnostic studies, and testing, discussion with consultants, patient, and family members, and other required patient management activities. This 45 minutes is in excess of all separately billable procedures. Past Med/Surg History Medical History (Updated 01/25/24 @ 07:50 by Kaitlin Cadet MD) Asthma Chronic steroid use CKD (chronic kidney disease), stage III Osteoarthritis Bladder cancer dx 05/2021; TURBT, chemo + radiation Bladder tumor History of basal cell carcinoma History of rectal fissure History of COVID-19 DX'D 10/2020 [facility]RU [facility] HERBSTER-SOB, PRODUCTIVE COUGH, BODY ACHES, FEVER-RECOVERED AT HOME-SYMPTOMS RESOLVED SOB (shortness of breath) on exertion Arthritis Anticoagulated on Coumadin Heart disease Prostatitis Stark's esophagus GERD (gastroesophageal reflux disease) History of pulmonary embolism FOLLOWING SHOULDER SURGERY APPROX 5 YEARS -NO ISSUES SINCE Pacemaker TACHY-HOLA SYNDROME. ALSO HX OF A-FIB. LAST CHECKED 11/2021 - [facility] Atrial fibrillation DX 2003 - ON WARFARIN; follows with Dr. Rainey Tachy-hola syndrome History of atrial flutter Restless legs syndrome Dyslipidemia Carotid artery disease History of prostate cancer "had elevated PSA with + biopsy, but repeat biopsies and subsequent PSA's improved" On 11/18/16 10:00 Randy Gilbert wrote "2007" Spinal stenosis of lumbar region History of paroxysmal supraventricular tachycardia BPH (benign prostatic hypertrophy) Diverticular disease of colon COPD (chronic obstructive pulmonary disease) Hypertension Surgical History (Updated 01/23/24 @ 13:27 by Ayla C Filipowicz, PA-C) Status post mitral valve repair Status post aortic valve replacement "bioprosthetic" History of bladder surgery TURBT 05/29/2021 [facility] History of esophagogastroduodenoscopy (EGD) MULTIPLE History of tonsillectomy History of total knee replacement LEFT KNEE History of herniorrhaphy History of surgery MOHS PROCEDURE ON FACE History of colonoscopy History of bowel resection S/T DIVERTICULITIS History of arthroscopy B/L SHOULDERS History of cardiovascular surgery [place] History of heart valve replacement [place]IC [place]PLAC[place]UE[place] [place] Status post inguinal hernia repair Status post cataract extraction Family History Brother Diabetes Cancer Mother Colorectal cancer Lung cancer Social History Smoking Status: Never smoker Tobacco Type: Smokeless Tobacco (Dip or Chew) Cigarettes Per Day: 0; Second Hand Exposure: No; Do You Dip or Chew Tobacco: Yes (1 can every 3-4 days); Hx Alcohol Use: No Hx Substance Use: No Preferred Language: Cameroonian Communication Ability: Impaired 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 Beliefs That Will Affect Care: None marital status: Current Living Situation: Spouse current occupational status: retired Feels Safe at Home: Yes Diet: regular caffeine: No during the past year weight has: remained stable Physical Activity Frequency: Other Physical Activity Frequency Comment: "Does alot of yard work" Assistive Devices: Oxygen - at Night Allergies Allergies Allergy/AdvReac Type Severity Reaction Status Date / Time Penicillins Allergy Intermediate RASH/EL-ORBITAL Verified 01/23/24 11:16 EDEMA Home Meds Home Medications Medication Instructions Recorded Confirmed albuterol sulfate 90 mcg/actuation 2 puff inhalation QID PRN Wheezing 03/25/19 01/23/24 aerosol inhaler clindamycin HCl 300 mg capsule 300 mg PO UD PRN DENTAL 03/25/19 01/23/24 coenzyme Q10 100 mg capsule 100 mg PO QAM 03/25/19 01/23/24 (CoQ-10) esomeprazole magnesium 40 mg 40 mg PO BID 03/25/19 01/23/24 capsule,delayed release (Nexium) magnesium 250 mg tablet 250 mg PO QPM 03/25/19 01/23/24 polyethylene glycol 3350 17 gram 17 g PO QAM 03/25/19 01/23/24 oral powder packet (Miralax) prednisone 5 mg tablet 5 mg PO QAM 03/25/19 01/23/24 rosuvastatin 10 mg tablet (Crestor) 10 mg PO QPM 03/25/19 01/23/24 warfarin 5 mg tablet 2.5 mg PO QPM 03/25/19 01/23/24 ferrous sulfate 325 mg (65 mg 325 mg PO QAM 04/25/21 01/23/24 iron) tablet vitamin B complex (B 1 tab PO QAM 04/25/21 01/23/24 Complex-Vitamin B12 tablet) cetirizine 10 mg capsule (Zyrtec) 10 mg PO DAILY PRN Allergy Symptoms 07/21/21 01/23/24 sucralfate 1 gram tablet 1 g PO QID PRN Only after scope 07/21/21 01/23/24 furosemide 40 mg tablet 40 mg PO DAILY PRN Weight Gain 01/23/24 01/23/24 levothyroxine 125 mcg tablet 125 mcg PO QAM 01/23/24 01/23/24 spironolactone 25 mg tablet 12.5 mg PO QAM 01/23/24 01/23/24 tamsulosin 0.4 mg capsule 0.4 mg PO HS freqency 01/23/24 01/23/24 tiotropium bromide 2.5 2 puff inhalation DAILY 01/23/24 01/23/24 mcg/actuation mist for inhalation (Spiriva Respimat) zolpidem 5 mg tablet 5 mg PO HS 01/23/24 01/23/24 Previous Rx's Medication Instructions Recorded clotrimazole-betamethasone 1 1 applic topical .qhs #45 grams 07/04/22 %-0.05 % topical cream Results & Data (ED) Vital Signs Vital Signs - 24 hr 01/23/24 09:53 01/23/24 10:03 01/23/24 10:08 Temperature 36.5 C Temperature Source Temporal Artery Scan Pulse Rate 90 110 H 115 H Pulse Rate [Apical] Pulse Rate from SpO2 Sensor Respiratory Rate 36 H 24 Respiratory Effort / Characteristics Respiratory Depth Respiratory Pattern Blood Pressure 122/53 L Blood Pressure [Left Arm] Blood Pressure Mean 76 Blood Pressure Mean [Left Arm] Pulse Oximetry 76 L Oxygen Delivery Method Room Air Oxygen Flow Rate Fraction of Inspired Oxygen Sepsis Recent Fever Within 48 Hours No Sepsis New/Unexplained Change in Mental Status No Sepsis Action Taken by Nursing No Action Required 01/23/24 10:14 01/23/24 10:14 01/23/24 10:14 Temperature Temperature Source Pulse Rate 116 H Pulse Rate [Apical] 116 H Pulse Rate from SpO2 Sensor Respiratory Rate 33 H Respiratory Effort / Characteristics Respiratory Depth Retractive Respiratory Pattern Blood Pressure Blood Pressure [Left Arm] 156/82 H Blood Pressure Mean Blood Pressure Mean [Left Arm] 106 Pulse Oximetry 93 93 Oxygen Delivery Method BiPAP BiPAP BiPAP Oxygen Flow Rate Fraction of Inspired Oxygen Sepsis Recent Fever Within 48 Hours Sepsis New/Unexplained Change in Mental Status Sepsis Action Taken by Nursing 01/23/24 10:15 01/23/24 10:30 01/23/24 10:31 Temperature Temperature Source Pulse Rate 86 118 H Pulse Rate [Apical] Pulse Rate from SpO2 Sensor Respiratory Rate 35 H 18 23 Respiratory Effort / Characteristics Spontaneous Labored Short of Breath Respiratory Depth Normal Respiratory Pattern Regular Blood Pressure Blood Pressure [Left Arm] Blood Pressure Mean Blood Pressure Mean [Left Arm] Pulse Oximetry 95 92 94 Oxygen Delivery Method BiPAP Oxygen Flow Rate 95 Fraction of Inspired Oxygen 50 Sepsis Recent Fever Within 48 Hours Sepsis New/Unexplained Change in Mental Status Sepsis Action Taken by Nursing 01/23/24 10:31 01/23/24 10:42 01/23/24 10:45 Temperature Temperature Source Pulse Rate 107 H Pulse Rate [Apical] 103 H 101 H Pulse Rate from SpO2 Sensor Respiratory Rate 24 28 H 36 H Respiratory Effort / Characteristics Respiratory Depth Shallow Respiratory Pattern Blood Pressure 134/86 Blood Pressure [Left Arm] 134/86 110/80 Blood Pressure Mean 92 Blood Pressure Mean [Left Arm] 102 90 Pulse Oximetry 98 100 100 Oxygen Delivery Method BiPAP BiPAP BiPAP Oxygen Flow Rate Fraction of Inspired Oxygen Sepsis Recent Fever Within 48 Hours Sepsis New/Unexplained Change in Mental Status Sepsis Action Taken by Nursing 01/23/24 10:45 01/23/24 10:45 01/23/24 11:00 Temperature Temperature Source Pulse Rate 96 H 115 H Pulse Rate [Apical] Pulse Rate from SpO2 Sensor 107 H 127 H Respiratory Rate 31 H 38 H Respiratory Effort / Characteristics Respiratory Depth Respiratory Pattern Blood Pressure 110/80 Blood Pressure [Left Arm] Blood Pressure Mean 85 Blood Pressure Mean [Left Arm] Pulse Oximetry 100 97 Oxygen Delivery Method BiPAP BiPAP Oxygen Flow Rate Fraction of Inspired Oxygen Sepsis Recent Fever Within 48 Hours Sepsis New/Unexplained Change in Mental Status Sepsis Action Taken by Nursing 01/23/24 11:00 01/23/24 11:16 01/23/24 11:16 Temperature Temperature Source Pulse Rate 100 H Pulse Rate [Apical] Pulse Rate from SpO2 Sensor 114 H Respiratory Rate 35 H Respiratory Effort / Characteristics Respiratory Depth Respiratory Pattern Blood Pressure 120/77 95/68 L Blood Pressure [Left Arm] Blood Pressure Mean 86 85 Blood Pressure Mean [Left Arm] Pulse Oximetry 100 Oxygen Delivery Method Oxygen Flow Rate Fraction of Inspired Oxygen Sepsis Recent Fever Within 48 Hours Sepsis New/Unexplained Change in Mental Status Sepsis Action Taken by Nursing 01/23/24 11:30 01/23/24 11:30 Temperature Temperature Source Pulse Rate 96 H Pulse Rate [Apical] Pulse Rate from SpO2 Sensor 110 H Respiratory Rate 31 H Respiratory Effort / Characteristics Respiratory Depth Respiratory Pattern Blood Pressure 115/76 Blood Pressure [Left Arm] Blood Pressure Mean 101 Blood Pressure Mean [Left Arm] Pulse Oximetry 100 Oxygen Delivery Method Oxygen Flow Rate Fraction of Inspired Oxygen Sepsis Recent Fever Within 48 Hours Sepsis New/Unexplained Change in Mental Status Sepsis Action Taken by Nursing Laboratory Data 01/25/24 06:27 01/25/24 06:27 Lab Results 01/23/24 01/23/24 01/23/24 Range/Units 10:08 10:16 10:23 WBC 6.03 (4.8-10.8) K/ul RBC 3.84 L (4.70-6.10) M/uL Hgb 10.8 L (14.0-18.0) g/dl POC Hgb 11.9 L (14.0-18.0) g/dl Hct 37.0 L (42.0-52.0) % POC Hct 35 L (42-52) % MCV 96.4 (80.0-100.0) fL MCH 28.1 (25.0-34.0) pg MCHC 29.2 L (32.0-36.0) g/dL RDW Std Deviation 61.5 H (36.4-46.3) fL RDW Coeff of Humberto 17.4 H (11.5-14.5) % Plt Count 117 L (130-400) K/uL MPV 11.0 (9.4-12.4) fL Immature Gran % (Auto) 0.7 % Neut % (Auto) 80.2 % Lymph % (Auto) 10.1 % [place] % (Auto) 8.6 % Eos % (Auto) 0.2 % Baso % (Auto) 0.2 % Neut # (Auto) 4.84 (1.40-6.50) K/uL Lymph # (Auto) 0.61 L (1.20-3.40) K/uL [place] # (Auto) 0.52 (0.11-0.59) K/uL Eos # (Auto) 0.01 (0.00-0.50) K/uL Baso # (Auto) 0.01 (0.00-0.20) K/uL Immature Gran # (Auto) 0.04 (0.01-0.20) K/uL VBG pH (7.36-7.41) VBG pCO2 (38-50) mmHg VBG pO2 mmHg VBG HCO3 mmol/L VBG O2 Saturation % VBG Base Excess mEq/L POC Sodium 140 (135-144) mmol/L Sodium 138 (136-145) mmol/L POC Potassium 4.8 (3.3-5.0) mmol/L Potassium 4.8 (3.5-5.1) mmol/L POC Chloride 108 (101-112) mmol/L Chloride 108 H (98-107) mmol/L Carbon Dioxide 24 (21-32) mmol/L POC Total CO2 25 (24-31) mmol/L Anion Gap 6 (3-11) POC Anion Gap 13.0 L (16-25) mmol/L POC BUN 37 H (7-18) mg/dl BUN 41 H (6-23) mg/dl Creatinine 1.53 H (0.6-1.4) mg/dl POC Creatinine 1.7 H (0.6-1.3) mg/dl Est Cr Clr Drug Dosing 31.3 ml/min Est GFR ( Amer) 47.0 ml/min Est GFR (Non-Af Amer) 40.6 ml/min BUN/Creatinine Ratio 26.8 H (10-20) Glucose 95 (70-99(Fasting)) mg/dl POC Glucose (other) 95 (70-99) mg/dl Lactate 3.2 H* (0.4-2.0) mmol/L Calcium 9.2 (8.6-10.3) mg/dl POC Ioniz Calcium Halina 1.27 (1.12-1.32) mmol/l Total Bilirubin 1.1 H (0.2-1.0) mg/dl AST 21 (13-39) U/L ALT 15 (7-52) U/L Alkaline Phosphatase 66 (34-104) U/L Total Protein 6.4 (6.0-8.3) gm/dl Albumin 4.0 (3.4-5.0) gm/dl Globulin 2.4 L (2.5-4.0) gm/dl Albumin/Globulin Ratio 1.7 (0.9-2) Procalcitonin 0.11 (0-0.5) ng/ml Adenovirus (PCR) Not Detected (NotDetected) B. pertussis DNA (PCR) Not Detected (NotDetected) B.parapertussis DNA PCR Not Detected (NotDetected) C. pneumoniae DNA (PCR) Not Detected (NotDetected) Coronavirus OC43 (PCR) Not Detected (NotDetected) Coronavirus HKU1 (PCR) Not Detected (NotDetected) Coronavirus 229E (PCR) Not Detected (NotDetected) SARS-CoV-2 (PCR) Not Detected (NotDetected) Coronavirus NL63 (PCR) Not Detected (NotDetected) Human Metapneumovir PCR Not Detected (NotDetected) Influenza Type A (PCR) Not Detected (NotDetected) Influenza Type B (PCR) Not Detected (NotDetected) M. pneumoniae (PCR) Not Detected (NotDetected) Parainfluenza 1 (PCR) Not Detected (NotDetected) Parainfluenza 2 (PCR) Not Detected (NotDetected) Parainfluenza 3 (PCR) Not Detected (NotDetected) Parainfluenza 4 (PCR) Not Detected (NotDetected) RSV (PCR) DETECTED A (NotDetected) Entero/Rhino (PCR) Not Detected (NotDetected) 01/23/24 Range/Units 10:31 WBC (4.8-10.8) K/ul RBC (4.70-6.10) M/uL Hgb (14.0-18.0) g/dl POC Hgb (14.0-18.0) g/dl Hct (42.0-52.0) % POC Hct (42-52) % MCV (80.0-100.0) fL MCH (25.0-34.0) pg MCHC (32.0-36.0) g/dL RDW Std Deviation (36.4-46.3) fL RDW Coeff of Humberto (11.5-14.5) % Plt Count (130-400) K/uL MPV (9.4-12.4) fL Immature Gran % (Auto) % Neut % (Auto) % Lymph % (Auto) % [place] % (Auto) % Eos % (Auto) % Baso % (Auto) % Neut # (Auto) (1.40-6.50) K/uL Lymph # (Auto) (1.20-3.40) K/uL [place] # (Auto) (0.11-0.59) K/uL Eos # (Auto) (0.00-0.50) K/uL Baso # (Auto) (0.00-0.20) K/uL Immature Gran # (Auto) (0.01-0.20) K/uL VBG pH 7.25 L (7.36-7.41) VBG pCO2 51 H (38-50) mmHg VBG pO2 20 mmHg VBG HCO3 22 mmol/L VBG O2 Saturation < 60.0 % VBG Base Excess -5.2 mEq/L POC Sodium (135-144) mmol/L Sodium (136-145) mmol/L POC Potassium (3.3-5.0) mmol/L Potassium (3.5-5.1) mmol/L POC Chloride (101-112) mmol/L Chloride (98-107) mmol/L Carbon Dioxide (21-32) mmol/L POC Total CO2 (24-31) mmol/L Anion Gap (3-11) POC Anion Gap (16-25) mmol/L POC BUN (7-18) mg/dl BUN (6-23) mg/dl Creatinine (0.6-1.4) mg/dl POC Creatinine (0.6-1.3) mg/dl Est Cr Clr Drug Dosing ml/min Est GFR ( Amer) ml/min Est GFR (Non-Af Amer) ml/min BUN/Creatinine Ratio (10-20) Glucose (70-99(Fasting)) mg/dl POC Glucose (other) (70-99) mg/dl Lactate (0.4-2.0) mmol/L Calcium (8.6-10.3) mg/dl POC Ioniz Calcium Halina (1.12-1.32) mmol/l Total Bilirubin (0.2-1.0) mg/dl AST (13-39) U/L ALT (7-52) U/L Alkaline Phosphatase (34-104) U/L Total Protein (6.0-8.3) gm/dl Albumin (3.4-5.0) gm/dl Globulin (2.5-4.0) gm/dl Albumin/Globulin Ratio (0.9-2) Procalcitonin (0-0.5) ng/ml Adenovirus (PCR) (NotDetected) B. pertussis DNA (PCR) (NotDetected) B.parapertussis DNA PCR (NotDetected) C. pneumoniae DNA (PCR) (NotDetected) Coronavirus OC43 (PCR) (NotDetected) Coronavirus HKU1 (PCR) (NotDetected) Coronavirus 229E (PCR) (NotDetected) SARS-CoV-2 (PCR) (NotDetected) Coronavirus NL63 (PCR) (NotDetected) Human Metapneumovir PCR (NotDetected) Influenza Type A (PCR) (NotDetected) Influenza Type B (PCR) (NotDetected) M. pneumoniae (PCR) (NotDetected) Parainfluenza 1 (PCR) (NotDetected) Parainfluenza 2 (PCR) (NotDetected) Parainfluenza 3 (PCR) (NotDetected) Parainfluenza 4 (PCR) (NotDetected) RSV (PCR) (NotDetected) Entero/Rhino (PCR) (NotDetected) Administered Medications Albuterol (Albut/Ipratrop 3mg/0.5mg Neb 3 Ml Vial) 3 ml NEB Q4R [facility]; Protocol Stop: 02/22/24 14:59 Last Admin: 01/25/24 07:16 Dose: Not Given Documented By: Admin: 01/25/24 03:52 Dose: Not Given Documented By: Admin: 01/25/24 00:00 Dose: 3 ml Documented By: Admin: 01/24/24 19:52 Dose: Not Given Documented By: Admin: 01/24/24 15:03 Dose: 3 ml Documented By: [id number] Admin: 01/24/24 11:07 Dose: 3 ml Documented By: Admin: 01/24/24 09:10 Dose: Not Given Documented By: Admin: 01/24/24 04:23 Dose: 3 ml Documented By: Admin: 01/23/24 22:42 Dose: 3 ml Documented By: Admin: 01/23/24 18:07 Dose: Not Given Documented By: Admin: 01/23/24 14:59 Dose: 3 ml Documented By: SELMA Benzonatate (Benzonatate 100 Mg Capsule) 100 mg PO TID PRN PRN Reason: Cough Stop: 02/23/24 05:57 Last Admin: 01/24/24 23:54 Dose: 100 mg Documented By: Admin: 01/24/24 06:06 Dose: 100 mg Documented By: DOUG Budesonide (Budesonide 0.5 Mg/2 Ml Vial (Pulmicort)) 0.5 mg NEB BIDR JENNIFER Stop: 02/22/24 18:59 Last Admin: 01/25/24 07:16 Dose: 0.5 mg Documented By: Admin: 01/24/24 19:52 Dose: 0.5 mg Documented By: EMKingsley Admin: 01/24/24 07:27 Dose: 0.5 mg Documented By: Admin: 01/23/24 18:07 Dose: 0.5 mg Documented By: SELMA Ferrous Sulfate (Ferrous Sulfate 325 Mg Tab) 325 mg PO QAM JENNIFER Stop: 02/23/24 08:59 Last Admin: 01/24/24 08:07 Dose: 325 mg Documented By: FABIEN Formoterol Fumarate (Formoterol 20 Mcg/2 Ml Vial) 20 mcg NEB BIDR JENNIFER Stop: 02/22/24 18:59 Last Admin: 01/25/24 07:15 Dose: 20 mcg Documented By: Admin: 01/24/24 19:52 Dose: 20 mcg Documented By: EMKingsley Admin: 01/24/24 07:27 Dose: 20 mcg Documented By: Admin: 01/23/24 18:07 Dose: 20 mcg Documented By: SELMA Guaifenesin (Guaifenesin 600 Mg Tabcr) 1,200 mg PO Q12 [facility] Stop: 02/22/24 20:59 Last Admin: 01/24/24 20:18 Dose: 1,200 mg Documented By: Admin: 01/24/24 09:59 Dose: 1,200 mg Documented By: Admin: 01/23/24 21:05 Dose: 1,200 mg Documented By: JAMILAH Levothyroxine Sodium (Levothyroxine Sodium 125 Mcg Tablet) 125 mcg PO DAILYBB [facility] Stop: 02/23/24 06:29 Last Admin: 01/25/24 06:12 Dose: 125 mcg Documented By: Admin: 01/24/24 05:52 Dose: 125 mcg Documented By: DOUG Magnesium Oxide (Magnesium Oxide 400 Mg Tab) 400 mg PO [facility] Stop: 02/23/24 12:59 Last Admin: 01/24/24 13:18 Dose: 400 mg Documented By: FABIEN Metoprolol Succinate (Metoprolol Succ 25mg Ext Rel Tab) 12.5 mg PO [facility] Stop: 02/23/24 12:59 Last Admin: 01/24/24 13:17 Dose: 12.5 mg Documented By: FABIEN Nicotine (Nicotine 14 Mg/24 Hr Patch) 14 mg TD [facility] Stop: 02/23/24 15:59 Last Admin: 01/24/24 16:50 Dose: 14 mg Documented By: FABIEN Pantoprazole Sodium (Pantoprazole 40 Mg Tab) 40 mg PO BID [facility] Stop: 02/22/24 20:59 Last Admin: 01/24/24 20:18 Dose: 40 mg Documented By: Admin: 01/24/24 08:07 Dose: 40 mg Documented By: Admin: 01/23/24 21:05 Dose: 40 mg Documented By: JAMILAH Polyethylene Glycol (Polyethylene (Miralax) 17 Gm Pack) 17 gm PO [facility] Stop: 02/23/24 08:59 Last Admin: 01/24/24 08:07 Dose: 17 gm Documented By: FABIEN Prednisone (Prednisone 5 Mg Tab) 5 mg PO [facility] Stop: 02/23/24 08:59 Last Admin: 01/24/24 08:07 Dose: 5 mg Documented By: FABIEN Rosuvastatin Calcium (Rosuvastatin Calcium 10 Mg Tab) 10 mg PO QPM [facility] Stop: 02/22/24 20:59 Last Admin: 01/24/24 20:18 Dose: 10 mg Documented By: Admin: 01/23/24 21:06 Dose: 10 mg Documented By: JAMILAH Spironolactone (Spironolactone 12.5 Mg Tab) 12.5 mg PO [facility] Stop: 02/23/24 08:59 Last Admin: 01/24/24 08:07 Dose: 12.5 mg Documented By: FABIEN Tamsulosin HCl (Tamsulosin Hcl 0.4 Mg Cap) 0.[address] [facility] Stop: 02/22/24 20:59 Last Admin: 01/24/24 20:18 Dose: 0.4 mg Documented By: Admin: 01/23/24 21:05 Dose: 0.4 mg Documented By: JAMILAH Vitamin B Complex (Vitamin B Complex Tab) 1 tab PO [facility] Stop: 02/23/24 08:59 Last Admin: 01/24/24 08:07 Dose: 1 tab Documented By: FABIEN Discontinued Medications Furosemide (Furosemide 40 Mg/4 Ml Vial) 40 mg IV ONE ONE Stop: 01/23/24 11:36 Last Admin: 01/23/24 11:41 Dose: 40 mg Documented By: DODIE Furosemide (Furosemide Inj 20 Mg/2 Ml Vial) 20 mg IV ONE ONE Stop: 01/24/24 12:55 Last Admin: 01/24/24 13:17 Dose: 20 mg Documented By: FABIEN Ceftriaxone Sodium 2,000 mg/ (Dextrose) 50 mls @ 100 mls/hr IV NOW STA; Protocol Stop: 01/23/24 10:48 Last Infusion: 01/23/24 11:15 Dose: Infused Documented By: Admin: 01/23/24 10:37 Dose: 100 mls/hr Documented By: SAV Azithromycin 500 mg/ Dextrose 255 mls @ 127.5 mls/hr IV NOW STA Stop: 01/23/24 12:18 Last Infusion: 01/23/24 12:37 Dose: Infused Documented By: Admin: 01/23/24 10:37 Dose: 127.5 mls/hr Documented By: SAV Ondansetron HCl (Ondansetron Inj 2 Mg/Ml 2 Ml Vial) 4 mg IV NOW STA Stop: 01/23/24 10:59 Last Admin: 01/23/24 11:03 Dose: 4 mg Documented By: HS Imaging Data Radiologist's Impression: Chest X-Ray 01/23/24 10:08 SINGLE VIEW CHEST CLINICAL HISTORY: Dyspnea FINDINGS: An AP, portable, upright chest radiograph is compared to study dated 04/11/2021 and correlated with chest CT dated 05/17/2022. A right internal jugular central venous infusion port is unchanged in position. A single lead cardiac pacemaker is again noted and partially obscures the left mid chest. The patient is status post midline sternotomy and cardiac valve surgery. The heart is enlarged noting atherosclerotic calcification of the thoracic aorta. There is pulmonary vascular congestion. Bilateral airspace opacities likely represent interstitial edema. Calcified pleural plaques are again noted. Small pleural effusions are suspected. No pneumothorax is seen. The skeletal structures are osteopenic. There are chronic/healed right-sided rib fractures. IMPRESSION: 1. Cardiomegaly and cardiac pacemaker without evidence of congestive failure. 2. Bilateral airspace opacities likely represent pulmonary edema. Correlate clinically for evidence of a superimposed pneumonia. Radiographic follow-up to resolution is recommended. 3. Suspect small pleural effusions ACT 112: Negative or not required by law. Electronically signed by: Caleb Sams M.D. 01/23/2024 10:43 AM Discharge Plan Visit Data Chief Complaint: Shortness of Breath/Dyspnea Stated Complaint: RSV, RESPIRATORY [facility] Provider: Kaitlin Cadet Discharge Problem: Congestive heart failure, Community acquired pneumonia Patient Disposition: Admitted As Inpatient Discharge Instructions Interventions: ED Discharge Assessment Last Done: 01/23/24 14:38
--- NOTE | 2024-01-23 10:45 | XRay Report ---
SINGLE VIEW CHEST CLINICAL HISTORY: Dyspnea FINDINGS: An AP, portable, upright chest radiograph is compared to study dated 04/11/2021 and correlat ed with chest CT dated 05/17/2022. A right internal jugular central venous infusion port is unchanged in position. A single lead cardiac pacemaker is again noted and partially obscures the left mid chest . The patient is status post midline sternotomy and cardiac valve surgery. The heart is enlarged noti ng atherosclerotic calcification of the thoracic aorta. There is pulmonary vascular congestion. Bilat eral airspace opacities likely represent interstitial edema. Calcified pleural plaques are again note d. Small pleural effusions are suspected. No pneumothorax is seen. The skeletal structures are osteop enic. There are chronic/healed right-sided rib fractures. IMPRESSION: 1. Cardiomegaly and cardiac pacemaker without evidence of congestive failure. 2. Bilateral airspace opacities likely represent pulmonary edema. Correlate clinically for evidence o f a superimposed pneumonia. Radiographic follow-up to resolution is recommended. 3. Suspect small pleural effusions ACT 112: Negative or not required by law. Electronically signed by: Caleb Sams M.D. 01/23/2024 10:43 AM
[2024-01-23 10:47] LABS: Albumin Globulin Ratio 1.7 (0.9-2); BUN Creatinine Ratio 26.8 (10-20); Bilirubin,Total 1.1 mg/dl (0.2-1.0); Calcium 9.2 mg/dl (8.6-10.3); Creatinine Clr Calc Pharmacy 31.3 ml/min; Est GFR (Non-African American) 40.6 ml/min; Globulin 2.4 gm/dl (2.5-4.0); Potassium 4.8 mmol/L (3.5-5.1); Total Protein 6.4 gm/dl (6.0-8.3)
[2024-01-23 10:58] LABS: Appearance Urine Clear (Clear); Bacteria Urine Automated Negative (Negative); Bilirubin Urine Negative (Negative); Blood Urine Negative (Negative); Color Urine Dark Yellow; Epithelial Cell Urine Auto >30 /lpf (0-5); Glucose Urine UA Negative (Negative); Ketones Urine Negative (Negative); Leukocyte Esterase Urine Negative (Negative); Nitrite Urine Negative (Negative); Protein Urine 1+ (Negative); RBC Urine Automated 0-4 /hpf (0-4); Specific Gravity Urine 1.024 (1.000-1.030); Urobilinogen Urine Negative (Negative); pH Urine 5.5 (4.5-7.5)
[2024-01-23] MEDS: ONDANSETRON INJ 2 MG/ML 2 ML VIAL IV STA (11:03)
[2024-01-23 11:27] LABS: Adenovirus PCR Not Detected (NotDetected); Bordetella parapertussis PCR Not Detected (NotDetected); Bordetella pertussis PCR Not Detected (NotDetected); Chlamydia pneumoniae PCR Not Detected (NotDetected); Coronavirus 229E PCR Not Detected (NotDetected); Coronavirus CoV-2 (COVID19)PCR Not Detected (NotDetected); Coronavirus HKU1 PCR Not Detected (NotDetected); Coronavirus NL63 PCR Not Detected (NotDetected); Coronavirus OC43PCR Not Detected (NotDetected); Human Metapneumovirus PCR Not Detected (NotDetected); Influenza A PCR Not Detected (NotDetected); Influenza B PCR Not Detected (NotDetected); Mycoplasma pneumoniae PCR Not Detected (NotDetected); Parainfluenza Virus 1 PCR Not Detected (NotDetected); Parainfluenza Virus 2 PCR Not Detected (NotDetected); Parainfluenza Virus 3 PCR Not Detected (NotDetected); Parainfluenza Virus 4 PCR Not Detected (NotDetected); Respiratory Syncytial VirusPCR DETECTED (NotDetected); Rhinovirus/Enterovirus PCR Not Detected (NotDetected)
[2024-01-23] MEDS: FUROSEMIDE 40 MG/4 ML VIAL IV ONE (11:41)
--- NOTE | 2024-01-23 11:41 | History & Physical Report ---
Date of Service January 23, 2024 Assessment & Plan (1) Acute respiratory failure with hypoxia and hypercarbia: (2) Metabolic acidosis: (3) RSV (respiratory syncytial virus infection): (4) Atrial fibrillation: (5) Status post aortic valve replacement: (6) Status post mitral valve repair: (7) Chronic steroid use: (8) Osteoarthritis: (9) CKD (chronic kidney disease), stage III: Plan: Acute on chronic respiratory failure with hypoxia and hypercarbia Metabolic acidosis Moderate persistent asthma COPD RSV Nocturnal Hypoxemia -Admit to PCU -Initial VBG-was acidotic at 7.258, improved to 7.36, pCO2 initially 51 improved to 41 after placement of BiPAP --will attempt to take breaks from BiPAP, moved to high flow nasal cannula as tolerated. Pt is supposed to wear 2 L HS but does NOT use regularly. -Lactate 3.2 improved to 1.8 with BiPAP showing improvement likely secondary to BiPAP -Started on ceftriaxone and azithromycin in the ER, will await procalcitonin, to determine if this is more fluid versus pneumonia secondary to RSV. If elevated then cont abx. -Given Lasix 40 mg IV, has Lasix p.o. at home which he uses as needed weight gain, has not taken any recently per - Pt was placed on prednisone taper this week, 50 mg daily x 2 d, 40 mg x 2 day, 30 mg x 2, and so forth until finished. This is day 3 but he didn't take meds today. Pt is also on chronic prednisone 5 mg daily for osteoarthritis. - Prednisone 40 mg QAM starting tomorrow, taper, S/p solumedrol in ER. - Continue budesonide, ipratropium bromide - Pulmonary consulted Persistent Atrial Fibrillation Supratherapeutic INR Acute on chronic diastolic heart failure, likely secondary to RSV viral illness Hx Tachy/Pb Syndrome s/p Pacemaker S/p aortic Valve replacement, Bovine valve Hx of mitral valve repair HTN HLD - Chronic, stable - Check Echo since last was in April 2023, showed LVEF of 55-59%, no WMA, at that time. 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, cystoscope pending for January DVT ppx: Supratherapeutic INR, holding Coumadin for now, teds, scds Lines: 2 PIV FEN/GI n.p.o. for now while on BiPAP, once improves can consider HH diet CODE: FULL Dispo: From home, likely to remain in the hospital x 2 days A total of 78 minutes were spent with greater than 50% of that time face to face with the patient, personally reviewing all current laboratories, imaging studies, past medication reconciliation, outpatient chart review, and discussion with specialists to collaborate care for the patient with attending. Please see attending documentation for corrections and/or additions. History of Present Illness Chief Complaint: Shortness of breath Primary Care Provider: Bell Mcqueen MD This is an 88-year-old male with PMHx of CAD, A-fib on Coumadin, HTN, HLD, s/p AV with bovine replacement valve, Mitral valve repair, Cardiac pacemaker in situ, paroxysmal SVT, restrictive lung disease, moderate persistent asthma, Stark's esophagus, iron deficiency anemia, hypothyroidism, CKD stage III who presents with worsening shortness of breath and is found to have RSV and is requiring BiPAP in the ER. Pt is present with his at bedside, he reports worsening shortness of breath since Saturday. In the past few days he has had progressive SOB. At home he is supposed to wear supplemental O2 at nighttime however has previously refused it. Last night his made him aware. Recently he was seen by PCP on Saturday and his blood count was checked, was noted to be low at 9. When his hgb is 11 he functions well per the . He has been coughing sputum Saturday through saturday, and then couldn't seem to cough it up. She denies any hemoptysis ever, at bedside he has spit out a red cough drop into an emesis bag. Patient was also recently started on a prednisone taper by his PCP on Saturday where he has been taking 55 mg of prednisone prior to past 2 days, was supposed to drop to 45 mg today but did not take it this morning. These amounts are as so, because he takes 5 mg of prednisone chronically for osteoarthritis. His notes he has not been eating and drinking well in the past few days. Denies fever or sweats, but he is having chills and requesting more blankets here. He reports no urinary symptoms or abdominal complaints. Allergies Allergy/AdvReac Type Severity Reaction Status Date / Time Penicillins Allergy Intermediate RASH/EL-ORBITAL Verified 01/23/24 11:16 EDEMA Home Medications Medication Instructions Recorded Confirmed Type albuterol sulfate 90 mcg/actuation 2 puff inhalation QID PRN Wheezing 03/25/19 01/23/24 History aerosol inhaler clindamycin HCl 300 mg capsule 300 mg PO UD PRN DENTAL 03/25/19 01/23/24 History coenzyme Q10 100 mg capsule 100 mg PO QAM 03/25/19 01/23/24 History (CoQ-10) esomeprazole magnesium 40 mg 40 mg PO BID 03/25/19 01/23/24 History capsule,delayed release (Nexium) magnesium 250 mg tablet 250 mg PO QPM 03/25/19 01/23/24 History polyethylene glycol 3350 17 gram 17 g PO QAM 03/25/19 01/23/24 History oral powder packet (Miralax) prednisone 5 mg tablet 5 mg PO QAM 03/25/19 01/23/24 History rosuvastatin 10 mg tablet (Crestor) 10 mg PO QPM 03/25/19 01/23/24 History warfarin 5 mg tablet 2.5 mg PO QPM 03/25/19 01/23/24 History ferrous sulfate 325 mg (65 mg 325 mg PO QAM 04/25/21 01/23/24 History iron) tablet vitamin B complex (B 1 tab PO QAM 04/25/21 01/23/24 History Complex-Vitamin B12 tablet) cetirizine 10 mg capsule (Zyrtec) 10 mg PO DAILY PRN Allergy Symptoms 07/21/21 01/23/24 History sucralfate 1 gram tablet 1 g PO QID PRN Only after scope 07/21/21 01/23/24 History clotrimazole-betamethasone 1 1 applic topical .qhs #45 grams 07/04/22 01/23/24 Rx %-0.05 % topical cream furosemide 40 mg tablet 40 mg PO DAILY PRN Weight Gain 01/23/24 01/23/24 History levothyroxine 125 mcg tablet 125 mcg PO QAM 01/23/24 01/23/24 History spironolactone 25 mg tablet 12.5 mg PO QAM 01/23/24 01/23/24 History tamsulosin 0.4 mg capsule 0.4 mg PO HS freqency 01/23/24 01/23/24 History tiotropium bromide 2.5 2 puff inhalation DAILY 01/23/24 01/23/24 History mcg/actuation mist for inhalation (Spiriva Respimat) zolpidem 5 mg tablet 5 mg PO HS 01/23/24 01/23/24 History Past Med/Surg History Medical History (Updated 01/23/24 @ 14:15 by Gagan Mota MD) Asthma Chronic steroid use CKD (chronic kidney disease), stage III Osteoarthritis Bladder cancer dx 05/2021; TURBT, chemo + radiation Bladder tumor History of basal cell carcinoma History of rectal fissure History of COVID-19 DX'D 10/2020 [facility]RU [facility]-SOB, PRODUCTIVE COUGH, BODY ACHES, FEVER-RECOVERED AT HOME-SYMPTOMS RESOLVED SOB (shortness of breath) on exertion Arthritis Anticoagulated on Coumadin Heart disease Prostatitis Stark's esophagus GERD (gastroesophageal reflux disease) History of pulmonary embolism FOLLOWING SHOULDER SURGERY APPROX 5 YEARS -NO ISSUES SINCE Pacemaker TACHY-PB SYNDROME. ALSO HX OF A-FIB. LAST CHECKED 11/2021 - [facility] Atrial fibrillation DX 2003 - ON [facility]; follows with Dr. Rainey Tachy-pb syndrome History of atrial flutter Restless legs syndrome Dyslipidemia Carotid artery disease History of prostate cancer "had elevated PSA with + biopsy, but repeat biopsies and subsequent PSA's improved" On 11/18/16 10:00 Randy Gilbert wrote "2007" Spinal stenosis of lumbar region History of paroxysmal supraventricular tachycardia BPH (benign prostatic hypertrophy) Diverticular disease of colon COPD (chronic obstructive pulmonary disease) Hypertension Surgical History (Updated 01/23/24 @ 13:27 by Ayla Gilbert PA-C) Status post mitral valve repair Status post aortic valve replacement "bioprosthetic" History of bladder surgery TURBT 05/29/2021 [facility] History of esophagogastroduodenoscopy (EGD) MULTIPLE History of tonsillectomy History of total knee replacement LEFT KNEE History of herniorrhaphy History of surgery MOHS PROCEDURE ON FACE History of colonoscopy History of bowel resection S/T DIVERTICULITIS History of arthroscopy B/L SHOULDERS History of cardiovascular surgery MITRAL VALVE REPAIR[place] [place] History of heart valve replacement AORTIC VALVE REPLACEMENT (TISSUE[place] [place] Status post inguinal hernia repair Status post cataract extraction Family History Brother Diabetes Cancer Mother Colorectal cancer Lung cancer Social History Smoking Status: Never smoker Tobacco Type: Smokeless Tobacco (Dip or Chew) Cigarettes Per Day: 0; Second Hand Exposure: No; Do You Dip or Chew Tobacco: Yes (1 can every 3-4 days); Hx Alcohol Use: Yes Alcohol type: beer Alcohol Intake Frequency Comment: Socially Hx Substance Use: Yes Preferred Language: Polish Communication Ability: Effective Funeral Assistant Required: No Beliefs That Will Affect Care: None marital status: Current Living Situation: Spouse current occupational status: retired Feels Safe at Home: Yes Diet: regular caffeine: No during the past year weight has: remained stable Physical Activity Frequency: Other Physical Activity Frequency Comment: "Does alot of yard work" Assistive Devices: Glasses and Hearing Aid - Bilateral Review of Systems Review of Systems: Constitutional: No fever, +sweats and chills Eyes: No diplopia, no worsening or blurred vision ENT: normal hearing, no trouble swallowing Respiratory: As per HPI Cardiovascular: No chest pain, tightness or palpitations Abdomen: No pain, nausea, vomiting, diarrhea or constipation Musculoskeletal: No joint pain, calf pain, + trace feet swelling Neurologic: + generalized weakness, no numbness/tingling, no balance problems Psychiatric: No anxiety or depression Skin: No rash or itch Physical Exam Physical Exam: Please refer to attending addendum for physical exam. Results & Data Results & Data Vital Signs (Past 12 Hours) Vital Signs Temp Pulse Pulse Resp BP BP Pulse Ox 01/23/24 10:45 110/80 01/23/24 10:45 96 H 31 H 100 01/23/24 10:45 101 H 36 H 110/80 100 01/23/24 10:42 103 H 28 H 134/86 100 01/23/24 10:31 107 H 24 134/86 98 01/23/24 10:31 23 94 01/23/24 10:30 118 H 18 92 01/23/24 10:14 116 H 93 01/23/24 10:14 116 H 33 H 156/82 H 93 01/23/24 10:14 01/23/24 10:08 115 H 01/23/24 10:03 110 H 24 01/23/24 09:53 36.5 C 90 36 H 122/53 L 76 L O2 Del Method 01/23/24 10:45 01/23/24 10:45 BiPAP 01/23/24 10:45 BiPAP 01/23/24 10:42 BiPAP 01/23/24 10:31 BiPAP 01/23/24 10:31 BiPAP 01/23/24 10:30 01/23/24 10:14 BiPAP 01/23/24 10:14 BiPAP 01/23/24 10:14 BiPAP 01/23/24 10:08 01/23/24 10:03 01/23/24 09:53 Room Air Laboratory Results 01/23/24 10:10 Aerobic Blood Culture - Pending Blood Anaerobic Blood Culture - Pending 01/23/24 10:08 Aerobic Blood Culture - Pending Blood Anaerobic Blood Culture - Pending 01/23/24 01/23/24 01/23/24 Unknown 12:22 12:04 WBC RBC Hgb POC Hgb Hct POC Hct MCV MCH MCHC RDW Std Deviation RDW Coeff of Humberto Plt Count MPV Immature Gran % (Auto) Neut % (Auto) Lymph % (Auto) Appling % (Auto) Eos % (Auto) Baso % (Auto) Neut # (Auto) Lymph # (Auto) Appling # (Auto) Eos # (Auto) Baso # (Auto) Immature Gran # (Auto) PT 40.7 H INR 4.1 H ABG pH Cancelled ABG pCO2 Cancelled ABG pO2 Cancelled ABG HCO3 Cancelled ABG O2 Saturation Cancelled ABG Base Excess Cancelled Luis Test Cancelled VBG pH 7.36 VBG pCO2 41 VBG pO2 33 VBG HCO3 23 VBG O2 Saturation < 60.0 VBG Base Excess -2.2 Barometric Pressure Cancelled Oxygen Given Cancelled POC Sodium Sodium POC Potassium Potassium POC Chloride Chloride Carbon Dioxide POC Total CO2 Anion Gap POC Anion Gap POC BUN BUN Creatinine POC Creatinine Est Cr Clr Drug Dosing Est GFR ( Amer) Est GFR (Non-Af Amer) BUN/Creatinine Ratio Glucose POC Glucose (other) Lactate 1.8 Calcium POC Ioniz Calcium Halina Total Bilirubin AST ALT Alkaline Phosphatase Total Protein Albumin Globulin Albumin/Globulin Ratio Urine Color Dark Yellow Urine Appearance Clear Urine pH 5.5 Ur Specific Sherman 1.024 Urine Protein 1+ H Urine Glucose (UA) Negative Urine Ketones Negative Urine Blood Negative Urine Nitrite Negative Urine Bilirubin Negative Urine Urobilinogen Negative Ur Leukocyte Esterase Negative Urine WBC (Auto) 1-5 Urine RBC (Auto) 0-4 U Hyaline Cast (Auto) 5-10 H U Epithel Cells (Auto) >30 H Urine Bacteria (Auto) Negative Ur Renal Epithelial Cell Not Reportable Adenovirus (PCR) B. pertussis DNA (PCR) B.parapertussis DNA PCR C. pneumoniae DNA (PCR) Coronavirus OC43 (PCR) Coronavirus HKU1 (PCR) Coronavirus 229E (PCR) SARS-CoV-2 (PCR) Coronavirus NL63 (PCR) Human Metapneumovir PCR Influenza Type A (PCR) Influenza Type B (PCR) M. pneumoniae (PCR) Parainfluenza 1 (PCR) Parainfluenza 2 (PCR) Parainfluenza 3 (PCR) Parainfluenza 4 (PCR) RSV (PCR) Entero/Rhino (PCR) 01/23/24 01/23/24 01/23/24 10:31 10:23 10:16 WBC RBC Hgb POC Hgb 11.9 L Hct POC Hct 35 L MCV MCH MCHC RDW Std Deviation RDW Coeff of Humberto Plt Count MPV Immature Gran % (Auto) Neut % (Auto) Lymph % (Auto) Appling % (Auto) Eos % (Auto) Baso % (Auto) Neut # (Auto) Lymph # (Auto) Appling # (Auto) Eos # (Auto) Baso # (Auto) Immature Gran # (Auto) PT INR ABG pH ABG pCO2 ABG pO2 ABG HCO3 ABG O2 Saturation ABG Base Excess Luis Test VBG pH 7.25 L VBG pCO2 51 H VBG pO2 20 VBG HCO3 22 VBG O2 Saturation < 60.0 VBG Base Excess -5.2 Barometric Pressure Oxygen Given POC Sodium 140 Sodium POC Potassium 4.8 Potassium POC Chloride 108 Chloride Carbon Dioxide POC Total CO2 25 Anion Gap POC Anion Gap 13.0 L POC BUN 37 H BUN Creatinine POC Creatinine 1.7 H Est Cr Clr Drug Dosing Est GFR ( Amer) Est GFR (Non-Af Amer) BUN/Creatinine Ratio Glucose POC Glucose (other) 95 Lactate Calcium POC Ioniz Calcium Halina 1.27 Total Bilirubin AST ALT Alkaline Phosphatase Total Protein Albumin Globulin Albumin/Globulin Ratio Urine Color Urine Appearance Urine pH Ur Specific Sherman Urine Protein Urine Glucose (UA) Urine Ketones Urine Blood Urine Nitrite Urine Bilirubin Urine Urobilinogen Ur Leukocyte Esterase Urine WBC (Auto) Urine RBC (Auto) U Hyaline Cast (Auto) U Epithel Cells (Auto) Urine Bacteria (Auto) Ur Renal Epithelial Cell Adenovirus (PCR) Not Detected B. pertussis DNA (PCR) Not Detected B.parapertussis DNA PCR Not Detected C. pneumoniae DNA (PCR) Not Detected Coronavirus OC43 (PCR) Not Detected Coronavirus HKU1 (PCR) Not Detected Coronavirus 229E (PCR) Not Detected SARS-CoV-2 (PCR) Not Detected Coronavirus NL63 (PCR) Not Detected Human Metapneumovir PCR Not Detected Influenza Type A (PCR) Not Detected Influenza Type B (PCR) Not Detected M. pneumoniae (PCR) Not Detected Parainfluenza 1 (PCR) Not Detected Parainfluenza 2 (PCR) Not Detected Parainfluenza 3 (PCR) Not Detected Parainfluenza 4 (PCR) Not Detected RSV (PCR) DETECTED A Entero/Rhino (PCR) Not Detected 01/23/24 10:08 WBC 6.03 RBC 3.84 L Hgb 10.8 L POC Hgb Hct 37.0 L POC Hct MCV 96.4 MCH 28.1 MCHC 29.2 L RDW Std Deviation 61.5 H RDW Coeff of Humberto 17.4 H Plt Count 117 L MPV 11.0 Immature Gran % (Auto) 0.7 Neut % (Auto) 80.2 Lymph % (Auto) 10.1 Appling % (Auto) 8.6 Eos % (Auto) 0.2 Baso % (Auto) 0.2 Neut # (Auto) 4.84 Lymph # (Auto) 0.61 L Appling # (Auto) 0.52 Eos # (Auto) 0.01 Baso # (Auto) 0.01 Immature Gran # (Auto) 0.04 PT INR ABG pH ABG pCO2 ABG pO2 ABG HCO3 ABG O2 Saturation ABG Base Excess Luis Test VBG pH VBG pCO2 VBG pO2 VBG HCO3 VBG O2 Saturation VBG Base Excess Barometric Pressure Oxygen Given POC Sodium Sodium 138 POC Potassium Potassium 4.8 POC Chloride Chloride 108 H Carbon Dioxide 24 POC Total CO2 Anion Gap 6 POC Anion Gap POC BUN BUN 41 H Creatinine 1.53 H POC Creatinine Est Cr Clr Drug Dosing 31.3 Est GFR ( Amer) 47.0 Est GFR (Non-Af Amer) 40.6 BUN/Creatinine Ratio 26.8 H Glucose 95 POC Glucose (other) Lactate 3.2 H* Calcium 9.2 POC Ioniz Calcium Halina Total Bilirubin 1.1 H AST 21 ALT 15 Alkaline Phosphatase 66 Total Protein 6.4 Albumin 4.0 Globulin 2.4 L Albumin/Globulin Ratio 1.7 Urine Color Urine Appearance Urine pH Ur Specific Sherman Urine Protein Urine Glucose (UA) Urine Ketones Urine Blood Urine Nitrite Urine Bilirubin Urine Urobilinogen Ur Leukocyte Esterase Urine WBC (Auto) Urine RBC (Auto) U Hyaline Cast (Auto) U Epithel Cells (Auto) Urine Bacteria (Auto) Ur Renal Epithelial Cell Adenovirus (PCR) B. pertussis DNA (PCR) B.parapertussis DNA PCR C. pneumoniae DNA (PCR) Coronavirus OC43 (PCR) Coronavirus HKU1 (PCR) Coronavirus 229E (PCR) SARS-CoV-2 (PCR) Coronavirus NL63 (PCR) Human Metapneumovir PCR Influenza Type A (PCR) Influenza Type B (PCR) M. pneumoniae (PCR) Parainfluenza 1 (PCR) Parainfluenza 2 (PCR) Parainfluenza 3 (PCR) Parainfluenza 4 (PCR) RSV (PCR) Entero/Rhino (PCR) Diagnostic Findings Chest X-Ray 01/23/24 10:08 SINGLE VIEW CHEST CLINICAL HISTORY: Dyspnea FINDINGS: An AP, portable, upright chest radiograph is compared to study dated 04/11/2021 and correlated with chest CT dated 05/17/2022. A right internal jugular central venous infusion port is unchanged in position. A single lead cardiac pacemaker is again noted and partially obscures the left mid chest. The patient is status post midline sternotomy and cardiac valve surgery. The heart is enlarged noting atherosclerotic calcification of the thoracic aorta. There is pulmonary vascular congestion. Bilateral airspace opacities likely represent interstitial edema. Calcified pleural plaques are again noted. Small pleural effusions are suspected. No pneumothorax is seen. The skeletal structures are osteopenic. There are chronic/healed right-sided rib fractures. IMPRESSION: 1. Cardiomegaly and cardiac pacemaker without evidence of congestive failure. 2. Bilateral airspace opacities likely represent pulmonary edema. Correlate clinically for evidence of a superimposed pneumonia. Radiographic follow-up to resolution is recommended. 3. Suspect small pleural effusions ACT 112: Negative or not required by law. Electronically signed by: Caleb Sams M.D. 01/23/2024 10:43 AM Code Status & VTE Plan Code Status Full code - discussed with pt at bedside Supervising Physician Co-Signing Physician Notes I have seen and discussed the case with the collaborating advanced practitioner. I agree with the above H&P. I have reviewed and confirmed the patients medical history, the findings on physical examination, and the patients diagnosis and treatment plan with Ofelia SOSA and agree with the information documented. In short, Mr. Robles is an 88 year old gentleman with a past medical history significant for COPD, GERD,CKD persistent atrial fibrillation prior pulmonary embolism, Stark's esophagus,partial colectomy (for tubovillous adenoma), mitral valve repair, aortic valve replacement, hernia repair, total left knee replacement and pacemaker placement who is admitted for management of acute on chronic hypoxic/hypercapnic respiratory failure iso RSV. CXR reviewed, appears c/w pulm edema. s/p IV lasix 40mg in ED. Improving on bipap. Received steroid burst 2 days prior to presentation with no improvement. GENERAL APPEARANCE: AxOx4, ill appearing gentleman on bipap HEENT: NC, AT. MMM. NECK: Supple without lymphadenopathy. No stiffness or restricted ROM. HEART: difficult to appreciate secondary to labored breathing, diffuse rhonchorous breath sounds, trace tibial edema LUNGS: CTAB, moving air well. No crackles or wheezes are heard. ABDOMEN: Soft, nontender, nondistended with good bowel sounds heard. BACK: No CVAT, no obvious deformity. EXTREMITIES: Without cyanosis, clubbing or edema. NEUROLOGICAL: Grossly nonfocal. Alert and oriented, moving all 4 extremities. CN not formally tested but appear grossly intact. Skin: Warm and dry without any rash. #Acute on chronic hypoxic/hypercapnic respiratory failure, multifactorial #Viral URI, RSV #COPD #Mixed acidosis, respirtory/metabolic -CXR with diffuse opacities, ?edema v viral ARDS VBG CO2 51, PH 7.25, lactate 3.4 down to 1.8, acidosis improved on bipap -Plan to transition to HFNC if tolerated 2/2 nausea -s/p IV lasix, BNP ordered -Continue abx, procal ordered Pulm consulted -Continue home regimen -Procal for superimposed bacterial pna, continue abx in interim -sputum culture -discontinue methylpred -ECHO #Acute on chronic diastolic heart failure, likely secondary to RSV viral illness #Immunotherapy myocarditis, 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 Septal wall motion consistent with ppm activation otherwise no WMA. Bioprosthetic aortic valve present without evidence of stenosis. Moderate mitral stenosis and mild MR with history of prior mitral valve repair and annuloplasty ring. Aortic root measuring 4.2 cm and ascending aorta measuring 3.9 cm Follows Cardiology, last seen 05/2023 -Home regimen lasix 3xqweek -Continue spironolactone at 12.5 mg/day. 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 Louis and Urology, cystoscope pending for January Rest of plan as above I spent a total of 40 minutes coordinating, documenting, and providing care for this patient excluding time spent in the performance of separately billed services. All of the aforementioned completed outside of collaborating with the assigned advanced practitioner for a full treatment plan. I have reviewed the advanced practitioner's documentation, and I agree with, and take responsibility for the plan of care
[2024-01-23 12:44] LABS: Base Excess VBG -2.2 mEq/L; HCO3 VBG 23 mmol/L; Oxygen Saturation VBG < 60.0 %; PCO2 VBG 41 mmHg (38-50); PO2 VBG 33 mmHg; pH VBG 7.36 (7.36-7.41)
[2024-01-23 12:53] LABS: INR 4.1 (0.9-1.1); Prothrombin Time 40.7 Seconds (9.0-12.0)
--- NOTE | 2024-01-23 14:19 | Pulmonary Consultation ---
Date of Consultation January 23, 2024 Assessment & Plan (1) RSV (respiratory syncytial virus infection): (2) Acute respiratory failure with hypoxia and hypercarbia: (3) Metabolic acidosis: (4) Pulmonary edema cardiac cause: (5) Mitral stenosis and aortic insufficiency: Plan Impression: 88-year-old male with known mitral and aortic valvular heart disease anticoagulated as well as invasive bladder cancer admitted with RSV and diffuse pulmonary infiltrates. He is rapidly improved with positive airway pressure and diuresis which argues against an infectious etiology and would favor more hydrostatic issues. The multifocal airspace opacities may be infectious, inflammatory, or potentially alveolar hemorrhage given his elevated INR and mitral stenosis. Patient did have an outpatient CT scan showing a pulmonary nodule Recommendations: 1. BNP elevated: Recommend repeating echo and cardiology consultation for evaluation management of his valvular heart disease. Continue diuresis. 2. Would not recommend steroids for RSV infection. Can use bronchodilators as needed if the patient has significant wheezing but at this point in time I think following him clinically is reasonable. Patient did receive antibiotics in the form of Rocephin and azithromycin. He is afebrile. His white count is normal. His procalcitonin is pending. If procalcitonin was negative, would favor discontinuation of antimicrobial therapy. 3. No indication for intubation or mechanical ventilation currently. 4. Pulmonary nodule: With a history of bladder cancer, follow-up imaging is indicated. Recommend repeating his CT scan once his chest x-ray is clear. Would not do the CT scan now as its likely to be obscured by the underlying diffuse parenchymal process. Thanks for the opportunity of evaluating this patient. Feel free to contact us with questions. History of Present Illness Attending Physician: Olena Argueta MD History of Present Illness Asked by hospitalist to evaluate this patient with multifocal airspace opacities and hypoxemic respiratory failure. History is obtained from discussion with the patient as well as review the electronic medical record. Patient is an 88-year-old male with invasive bladder cancer status post chemoradiation therapy as well as significant valvular heart disease status post TAVR and mitral valve replacement with known at least moderate mitral stenosis who was brought to the emergency room today with 24 hours of respiratory difficulty. The patient was diagnosed with RSV in the outpatient setting and has been treated with prednisone as well as nebulized therapies. He had significant worsening and had some hemoptysis and was brought to the emergency room. He was in respiratory distress and had a blood gas showing mixed respiratory and metabolic acidosis. He was placed on BiPAP and given Lasix. He is improved significantly and is now down to nasal cannula. He does not report significant shortness of breath. He has not had any chest pain or palpitations. He does not notice any lower extremity edema. He has not had syncope or presyncope. Allergies Allergy/AdvReac Type Severity Reaction Status Date / Time Penicillins Allergy Intermediate RASH/EL-ORBITAL Verified 01/23/24 11:16 EDEMA Home Medications Medication Instructions Recorded Confirmed Type albuterol sulfate 90 mcg/actuation 2 puff inhalation QID PRN Wheezing 03/25/19 01/23/24 History aerosol inhaler clindamycin HCl 300 mg capsule 300 mg PO UD PRN DENTAL 03/25/19 01/23/24 History coenzyme Q10 100 mg capsule 100 mg PO QAM 03/25/19 01/23/24 History (CoQ-10) esomeprazole magnesium 40 mg 40 mg PO BID 03/25/19 01/23/24 History capsule,delayed release (Nexium) magnesium 250 mg tablet 250 mg PO QPM 03/25/19 01/23/24 History polyethylene glycol 3350 17 gram 17 g PO QAM 03/25/19 01/23/24 History oral powder packet (Miralax) prednisone 5 mg tablet 5 mg PO QAM 03/25/19 01/23/24 History rosuvastatin 10 mg tablet (Crestor) 10 mg PO QPM 03/25/19 01/23/24 History warfarin 5 mg tablet 2.5 mg PO QPM 03/25/19 01/23/24 History ferrous sulfate 325 mg (65 mg 325 mg PO QAM 04/25/21 01/23/24 History iron) tablet vitamin B complex (B 1 tab PO QAM 04/25/21 01/23/24 History Complex-Vitamin B12 tablet) cetirizine 10 mg capsule (Zyrtec) 10 mg PO DAILY PRN Allergy Symptoms 07/21/21 01/23/24 History sucralfate 1 gram tablet 1 g PO QID PRN Only after scope 07/21/21 01/23/24 History clotrimazole-betamethasone 1 1 applic topical .qhs #45 grams 07/04/22 01/23/24 Rx %-0.05 % topical cream furosemide 40 mg tablet 40 mg PO DAILY PRN Weight Gain 01/23/24 01/23/24 History levothyroxine 125 mcg tablet 125 mcg PO QAM 01/23/24 01/23/24 History spironolactone 25 mg tablet 12.5 mg PO QAM 01/23/24 01/23/24 History tamsulosin 0.4 mg capsule 0.4 mg PO HS freqency 01/23/24 01/23/24 History tiotropium bromide 2.5 2 puff inhalation DAILY 01/23/24 01/23/24 History mcg/actuation mist for inhalation (Spiriva Respimat) zolpidem 5 mg tablet 5 mg PO HS 01/23/24 01/23/24 History Patient History Medical History (Updated 01/23/24 @ 14:15 by Gagan Mota MD) Asthma Chronic steroid use CKD (chronic kidney disease), stage III Osteoarthritis Bladder cancer dx 05/2021; TURBT, chemo + radiation Bladder tumor History of basal cell carcinoma History of rectal fissure History of COVID-19 DX'D 10/2020 [facility]RU [facility]-SOB, PRODUCTIVE COUGH, BODY ACHES, FEVER-RECOVERED AT HOME-SYMPTOMS RESOLVED SOB (shortness of breath) on exertion Arthritis Anticoagulated on Coumadin Heart disease Prostatitis Stark's esophagus GERD (gastroesophageal reflux disease) History of pulmonary embolism FOLLOWING SHOULDER SURGERY APPROX 5 YEARS -NO ISSUES SINCE Pacemaker TACHY-KURT SYNDROME. ALSO HX OF A-FIB. LAST CHECKED 11/2021 - [facility] Atrial fibrillation DX 2003 - ON [facility]F[facility]; follows with Dr. Rainey Tachy-kurt syndrome History of atrial flutter Restless legs syndrome Dyslipidemia Carotid artery disease History of prostate cancer "had elevated PSA with + biopsy, but repeat biopsies and subsequent PSA's improved" On 11/18/16 10:00 Randy Gilbert wrote "2007" Spinal stenosis of lumbar region History of paroxysmal supraventricular tachycardia BPH (benign prostatic hypertrophy) Diverticular disease of colon COPD (chronic obstructive pulmonary disease) Hypertension Surgical History (Updated 01/23/24 @ 13:27 by Ayla Gilbert PA-C) Status post mitral valve repair Status post aortic valve replacement "bioprosthetic" History of bladder surgery TURBT 05/29/2021 [facility] History of esophagogastroduodenoscopy (EGD) MULTIPLE History of tonsillectomy History of total knee replacement LEFT KNEE History of herniorrhaphy History of surgery MOHS PROCEDURE ON FACE History of colonoscopy History of bowel resection S/T DIVERTICULITIS History of arthroscopy B/L SHOULDERS History of cardiovascular surgery MITRAL VALVE REPAIR-[facility] [place] History of heart valve replacement AORTIC VALVE REPLACEMENT (TISSUE)-[facility] – [place] 2003 Status post inguinal hernia repair Status post cataract extraction Family History Brother Diabetes Cancer Mother Colorectal cancer Lung cancer Social History Smoking Status: Never smoker Tobacco Type: Smokeless Tobacco (Dip or Chew) Cigarettes Per Day: 0; Second Hand Exposure: No; Do You Dip or Chew Tobacco: Yes (1 can every 3-4 days); Hx Alcohol Use: Yes Alcohol type: beer Alcohol Intake Frequency Comment: Socially Hx Substance Use: Yes Preferred Language: Vietnamese Communication Ability: Effective Coronary Clinical Specialist Required: No Beliefs That Will Affect Care: None marital status: Current Living Situation: Spouse current occupational status: retired Feels Safe at Home: Yes Diet: regular caffeine: No during the past year weight has: remained stable Physical Activity Frequency: Other Physical Activity Frequency Comment: "Does alot of yard work" Assistive Devices: Glasses and Hearing Aid - Bilateral Review of Systems Review of Systems: Please refer to admission H&P Physical Exam Constitutional: Elderly frail male in no acute distress. His responses to questions are somewhat tangential Neck: trachea midline, no thyromegaly Respiratory: no respiratory distress, no labored breathing, no cough and not tachypneic Auscultation: + crackles; no wheezes Cardiovascular: Rate/Rhythm: regular rate and regular rhythm Heart Sounds: normal S1, normal S2 and + murmur Extremities: no edema Gastrointestinal (Abdomen): normal bowel sounds, soft, nontender, no hepatospl enomegaly Musculoskeletal: Extremities: extremities normal to inspection Skin: no rashes, warm and dry Neurologic: Nonfocal exam Lymphatic: no cervical lymphadenopathy Results & Data Results & Data Vital Signs (Past 12 Hours) Vital Signs Temp Pulse Pulse Resp BP BP Pulse Ox 01/23/24 13:32 103 H 23 88/63 L 95 01/23/24 11:30 96 H 31 H 100 01/23/24 11:30 115/76 01/23/24 11:16 100 H 35 H 100 01/23/24 11:16 95/68 L 01/23/24 11:00 120/77 01/23/24 11:00 115 H 38 H 97 01/23/24 10:45 110/80 01/23/24 10:45 96 H 31 H 100 01/23/24 10:45 101 H 36 H 110/80 100 01/23/24 10:42 103 H 28 H 134/86 100 01/23/24 10:31 107 H 24 134/86 98 01/23/24 10:31 23 94 01/23/24 10:30 118 H 18 92 01/23/24 10:15 86 35 H 95 01/23/24 10:14 116 H 93 01/23/24 10:14 116 H 33 H 156/82 H 93 01/23/24 10:14 01/23/24 10:08 115 H 01/23/24 10:03 110 H 24 01/23/24 09:53 36.5 C 90 36 H 122/53 L 76 L O2 Del Method O2 Flow Rate FiO2 01/23/24 13:32 Room Air 01/23/24 11:30 01/23/24 11:30 01/23/24 11:16 01/23/24 11:16 01/23/24 11:00 01/23/24 11:00 BiPAP 01/23/24 10:45 01/23/24 10:45 BiPAP 01/23/24 10:45 BiPAP 01/23/24 10:42 BiPAP 01/23/24 10:31 BiPAP 01/23/24 10:31 BiPAP 01/23/24 10:30 01/23/24 10:15 95 50 01/23/24 10:14 BiPAP 01/23/24 10:14 BiPAP 01/23/24 10:14 BiPAP 01/23/24 10:08 01/23/24 10:03 01/23/24 09:53 Room Air Critical Care Results & Data Vital Signs (Past 12 Hours) Vital Signs Temp Pulse Pulse Resp BP BP Pulse Ox 01/23/24 13:32 103 H 23 88/63 L 95 01/23/24 11:30 96 H 31 H 100 01/23/24 11:30 115/76 01/23/24 11:16 100 H 35 H 100 01/23/24 11:16 95/68 L 01/23/24 11:00 120/77 01/23/24 11:00 115 H 38 H 97 01/23/24 10:45 110/80 01/23/24 10:45 96 H 31 H 100 01/23/24 10:45 101 H 36 H 110/80 100 01/23/24 10:42 103 H 28 H 134/86 100 01/23/24 10:31 107 H 24 134/86 98 01/23/24 10:31 23 94 01/23/24 10:30 118 H 18 92 01/23/24 10:15 86 35 H 95 01/23/24 10:14 116 H 93 01/23/24 10:14 116 H 33 H 156/82 H 93 01/23/24 10:14 01/23/24 10:08 115 H 01/23/24 10:03 110 H 24 01/23/24 09:53 36.5 C 90 36 H 122/53 L 76 L O2 Del Method O2 Flow Rate FiO2 01/23/24 13:32 Room Air 01/23/24 11:30 01/23/24 11:30 01/23/24 11:16 01/23/24 11:16 01/23/24 11:00 01/23/24 11:00 BiPAP 01/23/24 10:45 01/23/24 10:45 BiPAP 01/23/24 10:45 BiPAP 01/23/24 10:42 BiPAP 01/23/24 10:31 BiPAP 01/23/24 10:31 BiPAP 01/23/24 10:30 01/23/24 10:15 95 50 01/23/24 10:14 BiPAP 01/23/24 10:14 BiPAP 01/23/24 10:14 BiPAP 01/23/24 10:08 01/23/24 10:03 01/23/24 09:53 Room Air Lab & Micro Results (Past 24 Hours) RBC 3.84 M/uL (4.70-6.10) L 01/23/24 WBC 6.03 K/ul (4.8-10.8) 01/23/24 Hgb 10.8 g/dl (14.0-18.0) L 01/23/24 Hct 37.0 % (42.0-52.0) L 01/23/24 MCV 96.4 fL (80.0-100.0) 01/23/24 MCH 28.1 pg (25.0-34.0) 01/23/24 MCHC 29.2 g/dL (32.0-36.0) L 01/23/24 RDW Standard Deviation 61.5 fL (36.4-46.3) H 01/23/24 RDW Coefficient of Variation 17.4 % (11.5-14.5) H 01/23/24 Plt Count 117 K/uL (130-400) L 01/23/24 MPV 11.0 fL (9.4-12.4) 01/23/24 Neutrophils (%) (Auto) 80.2 % 01/23/24 Lymphocytes (%) (Auto) 10.1 % 01/23/24 Monocytes # (Auto) 0.52 K/uL (0.11-0.59) 01/23/24 Eosinophils # (Auto) 0.01 K/uL (0.00-0.50) 01/23/24 Immature Granulocyte % (Auto) 0.7 % 01/23/24 Neutrophils # (Auto) 4.84 K/uL (1.40-6.50) 01/23/24 Lymphocytes # (Auto) 0.61 K/uL (1.20-3.40) L 01/23/24 Monocytes # (Auto) 0.52 K/uL (0.11-0.59) 01/23/24 Eosinophils # (Auto) 0.01 K/uL (0.00-0.50) 01/23/24 Basophils # (Auto) 0.01 K/uL (0.00-0.20) 01/23/24 Immature Granulocyte # (Auto) 0.04 K/uL (0.01-0.20) 4 Na 138 mmol/L (136-145) 01/23/24 K 4.8 mmol/L (3.5-5.1) 01/23/24 Cl 108 mmol/L (98-107) H 01/23/24 CO2 24 mmol/L (21-32) 01/23/24 Anion Gap 6 (3-11) 01/23/24 BUN 41 mg/dl (6-23) H 01/23/24 Creatinine 1.53 mg/dl (0.6-1.4) H 01/23/24 Estimated GFR ( Amer) 47.0 ml/min 01/23/24 Estimated GFR (Non-Af Amer) 40.6 ml/min 01/23/24 BUN/Creatinine Ratio 26.8 (10-20) H 01/23/24 Glu 95 mg/dl (70-99(Fasting)) 01/23/24 Ca 9.2 mg/dl (8.6-10.3) 01/23/24 Total Bilirubin 1.1 mg/dl (0.2-1.0) H 01/23/24 AST 21 U/L (13-39) 01/23/24 ALT 15 U/L (7-52) 01/23/24 Alkaline Phosphatase 66 U/L (34-104) 01/23/24 TP 6.4 gm/dl (6.0-8.3) 01/23/24 Albumin 4.0 gm/dl (3.4-5.0) 01/23/24 Globulin 2.4 gm/dl (2.5-4.0) L 01/23/24 Albumin/Globulin Ratio 1.7 (0.9-2) 01/23/24 Calcium Level 9.2 mg/dl (8.6-10.3) 01/23/24 10:08 Prothromb Time International Ratio 4.1 (0.9-1.1) H 01/23/24 12 :04 Venous Blood pH 7.36 (7.36-7.41) 01/23/24 12:22 Venous Blood Partial Pressure CO2 41 mmHg (38-50) 01/23/24 12:2 2 Venous Blood Partial Pressure O2 33 mmHg 01/23/24 12:22 Venous Blood HCO3 23 mmol/L 01/23/24 12:22 Venous Blood Base Excess -2.2 mEq/L 01/23/24 12:22 Venous Blood Oxygen Saturation < 60.0 % 01/23/24 12:22 Diagnostic Findings (Past 24 Hours) Chest X-Ray 01/23/24 10:08 SINGLE VIEW CHEST CLINICAL HISTORY: Dyspnea FINDINGS: An AP, portable, upright chest radiograph is compared to study dated 04/11/2021 and correlated with chest CT dated 05/17/2022. A right internal jugular central venous infusion port is unchanged in position. A single lead cardiac pacemaker is again noted and partially obscures the left mid chest. The patient is status post midline sternotomy and cardiac valve surgery. The heart is enlarged noting atherosclerotic calcification of the thoracic aorta. There is pulmonary vascular congestion. Bilateral airspace opacities likely represent interstitial edema. Calcified pleural plaques are again noted. Small pleural effusions are suspected. No pneumothorax is seen. The skeletal structures are osteopenic. There are chronic/healed right-sided rib fractures. IMPRESSION: 1. Cardiomegaly and cardiac pacemaker without evidence of congestive failure. 2. Bilateral airspace opacities likely represent pulmonary edema. Correlate clinically for evidence of a superimposed pneumonia. Radiographic follow-up to resolution is recommended. 3. Suspect small pleural effusions ACT 112: Negative or not required by law. Electronically signed by: Caleb Sams M.D. 01/23/2024 10:43 AM I & O Totals 24 Hours 01/22/24 01/23/24 01/24/24 06:59 06:59 06:59 Intake Total 305 / 305 Balance 305 / 305 Cumulative 01/23/24 09:41 thru 01/23/24 12:37 Intake Total 305 Balance 305 RT Ventilator Mngmt (Last Documented) Ventilator Ordered Settings Respiratory Rate 23 01/23/24 13:32 Fraction of Inspired Oxygen 50 01/23/24 10:15 Ventilator - PT Measurements Respiratory Rate 23 PG Care Time/CCT Total # of Minutes Spent Total Time Spent with Patient: Total time spent is greater than 50% in coordination of care (as documented) at patient's floor/unit and/or counseling patient: Coding Level of Care Code 98385 IN/OBS CONSULT LVL 4,60M Diagnoses RSV (respiratory syncytial virus infection) B33.8 Acute respiratory failure with hypoxia and hypercarbia J96.01; J96.02 Metabolic acidosis E87.20 Pulmonary edema cardiac cause I50.1 Mitral stenosis and aortic insufficiency I08.0
[2024-01-23] MEDS ORDERED: ACETAMINOPHEN 325 MG TAB PO PRN (14:37)
[2024-01-23] MEDS: ALBUT/IPRATROP 3MG/0.5MG NEB 3 ML VIAL NEB SCH (14:59)
--- NOTE | 2024-01-23 17:16 | Electrocardiogram Report ---
Test Reason : Blood Pressure : / mmHG Vent. Rate : 087 BPM Atrial Rate : 000 BPM P-R Int : 000 ms QRS Dur : 108 ms QT Int : 374 ms P-R-T Axes : 000 -54 117 degrees QTc Int : 450 ms Probable Atrial flutter with frequent Premature ventricular complexes in a pattern of bigeminy Left anterior fascicular block Left ventricular hypertrophy with repolarization abnormality ( R in aVL , Trevor product ) Abnormal ECG When compared with ECG of 11-APR-2021 23:49, Premature ventricular complexes now present Confirmed by Pastor Martin ([id number]) on 01/23/2024 5:16:02 PM Referred By: REFERRED SELF Confirmed By:Pastor Martin
[2024-01-23] MEDS: BUDESONIDE 0.5 MG/2 ML VIAL (PULMICORT) NEB SCH (18:07)
[2024-01-23] MEDS: FORMOTEROL 20 MCG/2 ML VIAL NEB SCH (18:07)
--- OUTSIDE RECORDS SUMMARY | 2024-01-23 20:52 | External Medical Summary | Summary of Care ---
Author Name Unknown Organization [facility] Address [address] [place] [address] Phone [phone] Care Team Providers Care Tea Blender Name Role Phone Juancho Romero MD Primary Care Provider Reason for Visit * Reason Onset Date Comments Medication Refill 01/17/2024 Encounter Details Date Type Department Care Team (Late st Contact Info) Description 01/17/2024 Refill Family Medicine [address] [phone] Linwood Hanna MD [address] [place] [address] [place] [address] Restless leg syndrome Allergies Active Allergy Reactions Criticality Noted Date Comments Penicillins Other (Please comment),Rash High Eyes swell Pollen 05/03/2022 Wound Dressing Adhesive Rash 05/02/2023 Patient reported documented as of this encounter (statuses as of 01/22/2024) Medications Medication Sig Dispensed Refills Start Date End Date Status CO Q10 100 MG PO TABS 1 tab once daily 0 Active ZOVIRAX 5 % EX OINT 5 times daily as needed. 0 Active Polyethylene Glycol 3350 17 GM Oral Packet Take 1 Packet by mouth in the morning. 14 Each 0 05/08/2016 Active Clindamycin HCl 300 MG Capsule Prior to dental appt 0 08/01/2016 Active Albuterol Sulfate (PROAIR HFA) 108 (90 Base) MCG/ACT AERSIndications:Mo derate persistent asthma with exacerbation Inhale 2 Puffs by mouth every 4 hours as needed for Wheezing. 1 Inhaler 3 10/20/2019 Active Sucralfate 1 GM/10ML Oral Suspension (Carafate) Take 10 mL by mouth 4 times a day. 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 0 Active Vitamin D 25 MCG (1000 UT) Oral Tablet Take 1 Tablet by mouth in the morning. 0 Active Tamsulosin HCl 0.4 MG Oral Capsule (Flomax) TAKE 1 CAPSULE BY MOUTH AT BEDTIME 0 01/11/2022 Active Albuterol Sulfate (2.5 MG/3ML) 0.083% Inhalation Nebulization Solution (Proventil)Indicat ions:Moderate persistent asthma without complication Inhale 1 Vial via nebulizer every 6 hours as needed for Wheezing. Mix with albuterol 120 mL 5 11/21/2022 Active Ipratropium [place] 0.02 % Inhalation Solution (Atrovent)Indicati ons:Moderate persistent asthma without complication Inhale 2.5 mL via nebulizer in the morning and 2.5 mL at noon and 2.5 mL in the evening and 2.5 mL before bedtime. Mix with albuterol solution. 75 mL 12 11/21/2022 Active Ferrous Sulfate 325 (65 Fe) MG Oral Tablet (Feosol)Indication s:Iron deficiency anemia secondary to blood loss (chronic) TAKE ONE TABLET BY MOUTH WITH FOOD DAILY 90 Tablet 3 04/18/2023 Active Spiriva Respimat 2.5 MCG/ACT Inhalation Aerosol Solution (Tiotropium [place] Monohydrate)Indica tions:Moderate persistent asthma without complication INHALE 2 PUFFS BY MOUTH EVERY DAY 12 g 3 04/30/2023 Active Warfarin Sodium 5 MG Oral Tablet (Coumadin)Indicati ons:Pulmonary embolism and infarction (HCC) Take 0.5-1 Tablets by mouth every evening. Or take as instructed by the [facility] 90 Tablet 3 08/09/2023 Active Spironolactone 25 MG Oral Tablet (Aldactone)Indicat ions:Pulmonary hypertension (HCC),Hypertensive heart and kidney disease without heart failure and with stage 3a chronic kidney disease (HCC),Paroxysmal SVT (supraventricular tachycardia),Dizzi ness Take 0.5 Tablets by mouth in the morning. 45 Tablet 3 08/14/2023 Active Furosemide 40 MG Oral Tablet (Lasix)Indications :Acute on chronic diastolic congestive heart failure (HCC) Take one tablet daily and as directed for weight gain 0 10/31/2023 Active guaiFENesin ER 600 MG Oral Tablet Extended Release 12 Hour (Humibid LA)Indications:Acu te cough Take 1 Tablet by mouth in the morning and 1 Tablet before bedtime. 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 3.5 g 3 12/16/2023 Active Rosuvastatin Calcium 10 MG Oral Tablet (Crestor) TAKE 1 TABLET BY MOUTH EVERY DAY 90 Tablet 1 01/06/2024 Active Levothyroxine Sodium 125 MCG Oral Tablet (Levoxyl)Indicatio ns:Carcinoma of bladder (HCC) TAKE 1 TAB BY MOUTH DAILY FIRST THING IN THE MORNING AT LEAST 30 MIN PRIOR TO BREAKFAST/OTHER MEDS 90 Tablet 0 01/06/2024 Active Zolpidem Tartrate 5 MG Oral Tablet (Ambien)Indication s:Restless leg syndrome Take 1 Tablet by mouth at bedtime as needed for Sleep. 30 Tablet 0 01/22/2024 Active traMADol HCl 50 MG Oral Tablet (Ultram)Indication s:Spinal stenosis of lumbar region without neurogenic claudication Take 1 Tablet by mouth every 6 hours as needed for Pain, Severe. 60 Tablet 0 04/08/2023 03/05/202 4 Discontinue d(Medicatio n List Clean Up) Zolpidem Tartrate 5 MG Oral Tablet (Ambien)Indication s:Restless leg syndrome Take 1 Tablet by mouth at bedtime as needed for Sleep. 30 Tablet 0 12/17/2023 4 Discontinue d(Refill) documented as of this encounter (statuses as of 01/22/2024) Active Problems Problem Noted Date Diagnosed Date Anemia due to stage 3b chronic kidney disease Overview: Per CKD protocol Chronic kidney disease, stage 3b 10/28/2023 Overview: Per CKD protocol Hypertensive heart and kidne y disease without heart failure and with stage 3b chronic kidney disease 10/28/2023 Overview: Per CKD protocol Encounter for central line care 06/17/2023 Acquired hypothyroidism 04/22/2023 Asbestosis 03/26/2022 Iron deficiency anemia 03/21/2022 Carcinoma of bladder 07/18/2021 Pulmonary hypertension 04/26/2021 Overview: 43 mm 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 mild concentric lvh on stress echo Asymptomatic bilateral carotid artery stenosis 0 06/29/2009 Paroxysmal SVT (supraventricular tachycardia) ADVANCE DIRECTIVE INFORMATION 02/19/2006 Overview: No, Advance Directive brochure given to patient at prior appointment. Longstanding persistent atrial fibrillation 10/20 S/P AVR (aortic valve replacement) 01/31/2004 Overview: 23 CE pericardila AVR and 28 CE mitral valve ring Dr Soliz History of tobacco use 09/14/2003 DIVERTICULOSIS OF COLON GENERAL OSTEOARTHROSIS SBE (subacute bacterial endocarditis) prophylaxi s candidate BPH without obstruction/lower urinary tract symp toms Overview: Dr Goodwin Spinal stenosis of lumbar re gion without neurogenic claudication Herniated nucleus pulposus, L4-5 right Dyslipidemia, goal LDL below 70 Hiatal hernia Cholelithiases Left ventricular diastolic dysfunction, NYHA cla ss 1 Overview: Grade I impaired relaxation Moderate persistent asthma without complication Overview: In Check dial performed to assess inhaler technique: 12/15/19 Name of inhalers Albuterol Pass: Yes at 60 L/min and Advair Pass: Yes at 60 L/min. Encouraged to to take deep breath, use aero chamber, and rinse after steroid. Test performed by Sameer [employer] CPFT Pleural plaque due to asbestos exposure Restrictive lung disease Overview: In Check dial performed to assess inhaler technique: 12/15/19 Name of inhalers Albuterol Pass: Yes at 60 L/min and Advair Pass: Yes at 60 L/min. Encouraged to to take deep breath, use aero chamber, and rinse after steroid. 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 Fractured rib 09/25/2022 04/22/2023 Overview: fractures of right 6-10 Stage 3b chronic kidney disease 09/11/2022 10/04/2022 Overview: EGFR 44 Chronic kidney disease, stage 3a 03/28/2021 10/31/2023 Overview: Per CKD protocol COVID-19 10/25/2020 03/26/2022 Hypertensive heart and kidne y disease without heart failure and with stage 3a chronic kidney disease 09/26/2020 10/31/2023 Overview: Per CKD protocol Kidney disease, chronic, sta ge III (GFR 30-59 ml/min) 04/23/2016 04/01/2019 Overview: Per CKD protocol #1 Neoplasm of unspecified natu re of bone, soft tissue, and skin 04/20/2015 09/26/2017 Ventricular tachycardia 09/21/201403/18 Postoperative pulmonary embolism 09/20/2014 09/29/2018 Overview: S/p shoulder surgery Thrombocytopenia 09/04/2011 09/04/2011 Chronic coronary artery disease 06/29/2009 10/13/2013 Overview: Mild cor atherosclerosis. Malignant neoplasm of prostate 09/23/2008 03/27/2018 Overview: [place] grade 3 Atrial flutter 09/02/2007 10/16/2007 Herpes simplex virus infection 08/22/2005 04/05/2016 Anal fissure 06/04/2005 10/16/2007 MCFP current use of ant icoagulant therapy 05/30/2005 10/16/2007 Overview: ICD-10 update of inactive term Atrial fibrillation 11/22/2004 10/16/20 07 Hypertensive heart disease 11/22/2004 Overview: Per Heart Failure Taxonomy Protocol. mild concentric lvh on stress echo DIASTOLIC DYSFUNCTION 11/22/20042006 Overview: GRADE II Heart valve replaced 02/09/2004 10/17/2 007 Overview: ICD-10 update of inactive term Anticoagulation management encounter 01/31/2004 10/16/2007 FAM HX-DIABETES MELLITUS 10/17/2001 Undiagnosed cardiac murmurs 10/16/2007 Aortic valve disorder 2006 Esophagitis 09/26/2017 MAL SALVADOR SIGMOID COLON 2013 Aortic valve disorder 2008 Mitral valve disorder 2008 Nonrheumatic tricuspid valve disorder 10/16/2007 CALCIF TENDINITIS SHLDER Cataract 09/08/2014 Hypertensive heart/kidney di sease w/chronic kidney disease stage III 09/29/2020 Overview: Per CKD protocol documented as of this encounter (statuses as of 01/22/2024) Immunizations Name Administration Dates Next Due COVID-19 mRNA, LNP-s, No Pre serve, 2-Dose Series ([employer]) 12/01/2021,01/16/2021,12/26/2020 COVID-19, LNP-s, No Preserve , Ozzy-sucrose, Ages 12+ ([employer]) 12/01/2021 COVID-19, MRNA-LNP, 23-24, P F, 30 MCG/0.3 mL, 12 YRS AND ABOVE, IM ([employer]) 09/18/2023 Covid-19, Mrna, Lnp-s, Pf, B ivalent, 30 Mcg, IM, 12 yrs and above ([employer]) 10/09/2022 Pneumococcal Conjugate Vacc, 13 Valent (Prevnar) 06/23/2015 Pneumococcal Polysaccharide PPV23 (Pneumovax) 05/14/2013 Seasonal Influenza, PF, 6 M & above, IM , (FluLaval or Fluzone) 09/29/2018 Seasonal Influenza, Quadriva lent Hd (Fluzone Hd) 07/31/2023,10/09/2022,08/17/2021 Seasonal Influenza, Quadriva lent, No Preserve, IM 09/24/2017,09/22/2016,09/12/2015 Seasonal Influenza, Recombin ant, RIV4, PF, (Flublock) 08/15/2020 Seasonal Influenza, Split, I IV3, With Preserve, Inj 08/26/2014,09/09/2013,08/15/2012,09/20,08/02/2010,08/31/2009,08/20/2008 ,08/19/2007,08/20/2006 Seasonal Influenza, Trivalen t, Adjuvanted, 65+ yrs 09/14/2019 Seasonal Influenza, Trivalen t, High Dose, No Preserve, IM 09/25/2017 TD, Preservative Free 08/20/2008 TDAP (age 10 and older)(Boostrix) 08/19/2017 Zoster Vaccine Recombinant (Shingrix) 12/02/2020 ,08/15/2020 documented as of this encounter Social History Tobacco Use Types Packs/Day Years Used Date Smoking Tobacco: Never Smokeless Tobacco: Current Snuff Comments:One can every coupl e of days x 50 yrs. Alcohol Use Standard Drinks/Week Comments Not Currently 0 (1 standard drink = 0.6 oz pur e alcohol) PHQ-2 Answer Date Recorded PHQ-2 Score 0 07/12/2020 Hunger Vital Sign Answer Date Recorded Worried About Running Out of Food in the Last Ye ar Never true 01/22/2020 Ran Out of Food in the Last Year Never true 01/22/2020 Sex and Gender Information Value Date Recorded Sex Assigned at Not on file Gender Identity Not on file Sexual Orientation Not on file Job Start Date Occupation Industry Not on file Not on file Not on file documented as of this encounter Miscellaneous Notes * Telephone Encounter - Linwood Hanna MD - 01/22/2024 11:01 AM EST Signed Prescriptions: Disp Refills Zolpidem Tartrate 5 MG Oral Tablet (Ambien)30 Tab*0 Sig: Take 1 Tablet by mouth at bedtime as needed for Sleep. Authorizing Provider: LINWOOD HANNA * Telephone Encounter - Elyssa Ruiz CPhT - 01/22/2024 10:42 AM EST Pt's calling to check on status of zolpidem. Thank you, Elyssa Ruiz CPhT II Maintenance Inspector [facility] ([facility]) (Formerly Telepharmacy) 01/22/2024, 10:42 AM * Telephone Encounter - Elyssa Ruiz CPhT - 01/21/2024 11:22 AM EST Pt's calling to check on status of zolpidem. Pt is out of medication Thank you, Elyssa Ruiz CPhT II Maintenance Inspector [facility] Services ([facility]) (Formerly Telepharmacy) 01/21/2024, 11:22 AM * Telephone Encounter - Ruby Vieira [facility] - 01/19/2024 4:34 PM EST Pending Prescriptions: Disp Refills Zolpidem Tartrate 5 MG Oral Tablet (Ambien)30 Tab*0 Sig: Take 1 Tablet by mouth at bedtime as needed for Sleep. * Telephone Encounter - Ruby Vieira [facility] - 01/19/2024 4:33 PM EST I have reviewed the patients controlled substance dispensing history in the Prescription Drug Monitoring Program in compliance with the TOM regulations before prescribing a controlled substance. PDMP checked on 01/19/2024. Pending Prescriptions: Disp Refills Zolpidem Tartrate 5 MG Oral Tablet (Ambie*30 Tab*0 Sig: Take 1 Tablet by mouth at bedtime as needed for Sleep. Last Visit: 11/04/2023 (in office), 08/28/2022 (telemedicine) Next Visit: 02/11/2024 Date medication was last filled: 12/17/23 Date medication is due for refill: 01/07/24 Pharmacy: [id number] [address] [facility] Is this request for a controlled substance? Yes and Urine Drug Screen Not completed Toxicology results: No results found. However, due to the size of the patient record, not all encounters were searched.Please check Results Review for a complete set of results. Please approve if appropriate. Thanks, Ruby Vieira [facility] Clinical Pharmacist [facility] ([facility]) (Formerly Telepharmacy) [phone] documented in this encounter Plan of Treatment Upcoming Encounters Date Type Department Care Team (Late st Contact Info) Description 01/28/2024 9:10 AM EDT Laboratory Laboratory [address] [place] [phone] [place] [address] 01/29/2024 10:30 AM EDT Immunization/Injection Hematology/Oncology Treatment, [place] [address] [place] [phone] Nurse, Med [address] [facility] [address] 02/03/2024 9:50 AM EDT Office Visit Ophthalmology, [facility] [address] [facility] [place] [address] Pablo Casanova T, DO [address] [facility] [address] 02/04/2024 6:30 AM EDT Anticoagulation Pharmacy Call Center [phone] [place] [address] [facility], [facility] [address] [place] [address] 02/06/2024 10:30 AM EDT Office Visit Cardiology, [facility] [address] [place] [address] Andres Rainey MD [address] [place] [address] 02/11/2024 9:40 AM EDT Office Visit Family Medicine [address] [phone] Linwood Hanna MD [address] [place] [address] [place] [address] 02/19/2024 11:00 AM EDT Immunization/Injection Hematology/Oncology Treatment, [place] [address] [facility] [place] [phone] [facility] [address] 05/13/2024 11:00 AM EDT Office Visit Hematology/Oncology [facility] [address] [facility] [place] [address] Ludwig Louis MD 200 [facility] [place] [address] 08/10/2024 1:40 PM EDT Office Visit Rheumatology [address] [place] [phone] Win Nielsen MD [address] [place] [address] [place], [place] [address] Scheduled Procedures Name Priority Associated Diagnoses Date/Ti me ESOPHAGOGASTRODUODENOSCOPY ( EGD), FLEXIBLE, TRANSORAL, DIAGNOSTIC Recall Stark's esophagus with dysplasia Health Maintenance Due Date Last Done Comments Depression Screening 07/12/2021 07/12/2020 CKD PHOS USE SMARTSET 09239 08/21/2022 10/0 02/2021, 07/12/2020, 03/13/2019, Additional history exists *BISPHONATE OR OTHER ACCEPTABLE MEDICATION NEEDED FOR OSTEOPOROSIS (REFER TO SMARTSET #1146) 10/14/2023 Albumin/Creatinine Ratio 04/22/2024 023, 05/24/2022, 03/26/2022, Additional history exists CKD HGB USE SMARTSET 32308 01/20/202501/20, 01/21/2024, 01/14/2024, Additional history exists TSH 01/20/2025 01/21/2024, 09/19, 08/20/2023, Additional history exists Stark's Esophagus Surveilance 02/26/2025 02/26/2022, 02/26/2022, 07/04/2021, Additional history exists DXA Scan 07/05/2025 07/05/2023, 10/19, 11/04/2018, Additional history exists DTaP,Tdap,and Td Vaccines (2 - Td or Tdap) 08/19/2027 08/19/2017, 08/20/2008 Pneumococcal Vaccine: 65+ Years Completed 06/23/2015, 05/14/2013, 04/18/2004 Zoster Vaccines Completed 12/02/2020, 08/15/2020 VITAMIN D LEVEL ONCE IN A LIFETIME-USE SMARTSET# 70430 Completed 04/22/2023, 08/28/2021, 07/14/2015 Influenza Vaccine (FLU shot) Completed , 10/09/2022, 08/17/2021, Additional history exists COVID-19 Vaccine Completed 09/18/2023, , 12/01/2021, Additional history exists GARDASIL-HPV IMMUNIZATION SERIES Aged Out No longer eligible based on patient's age to complete this topic Hepatitis B Aged Out No longer eligi ble based on patient's age to complete this topic MENINGOCOCCAL (MENACTRA/MENVEO) Aged Out No longer eligible based on patient's age to complete this topic documented as of this encounter Medical Devices Implanted Type Area Truck Driver Heavy Device Identifier Shelf Expiration Date Model / Serial / Lot Power Port 8fr Sngl Lumen Plas - [id number] Implanted:Qty: 1 on 02/22/2022 at [facility] : PERIPHERAL VASCULAR [id number] 02/15/2023 [id number] / / [id number] documented as of this encounter Visit Diagnoses Diagnosis Restless leg syndrome Restless legs syndrome (RLS) documented in this encounter Advance Directives Latest Code Status on File Code Status Date Activated Date Inactivated Comments Full Code 09/03/2007 7:29 AM 09/03/2007 4:02 PM Care Teams Tea Blender Relationship Specialty Start Date End Date Juancho Romero MD [address] [place] [address] [place] [id number] PCP - General Family Medicine 12/27/16 01/19/24 documented as of this encounter
--- OUTSIDE RECORDS SUMMARY | 2024-01-23 20:52 | External Medical Summary | Summary of Care ---
Author Name Unknown Organization [facility] Address [address] [place] [address] Phone [phone] Care Team Providers Care Sales Administration Specialist Name Role Phone Unavailable Primary Care Provider Unavailabl e Reason for Visit * Reason Onset Date Comments Advice 01/22/2024 Encounter Details Date Type Department Care Team (Late st Contact Info) Description 01/22/2024 Telephone Hematology/Oncology, [address] [address] Ludwig Louis MD [address] [place] [address] Advice Allergies Active Allergy Reactions Criticality Noted Date [...] Sulfate (PROAIR HFA) 108 (90 Base) MCG/ACT AERSIndications:Mod erate persistent asthma with exacerbation Inhale 2 Puffs by mouth every 4 hours as needed for Wheezing. 1 Inhaler 3 10/20/2019 Active Sucralfate 1 GM/10ML Oral Suspension (Carafate) Take 10 mL by mouth 4 times a day. 1260 mL 0 11/30/2020 Active Vitamin B12 500 MCG Oral TabletIndications:B arrett's esophagus determined by endoscopy 2 tabs daily [...] Sulfate (2.5 MG/3ML) 0.083% Inhalation Nebulization Solution (Proventil)Indicati ons:Moderate persistent asthma without complication Inhale 1 Vial via nebulizer every 6 hours as needed for Wheezing. Mix with albuterol 120 mL 5 11/21/2022 Active Ipratropium [place] 0.02 % Inhalation Solution (Atrovent)Indicatio ns:Moderate persistent asthma without complication Inhale 2.5 mL via nebulizer in the morning and 2.5 mL at noon and 2.5 mL in the evening and 2.5 mL before bedtime. Mix with albuterol solution. 75 mL 12 11/21/2022 Active Ferrous Sulfate 325 (65 Fe) MG Oral Tablet (Feosol)Indications :Iron deficiency anemia secondary to blood loss (chronic) TAKE ONE TABLET BY MOUTH WITH FOOD DAILY 90 Tablet 3 04/18/2023 Active Spiriva Respimat 2.5 MCG/ACT Inhalation Aerosol Solution (Tiotropium [place] Monohydrate)Indicat ions:Moderate persistent asthma without complication INHALE 2 PUFFS BY MOUTH EVERY DAY 12 g 3 04/30/2023 Active Warfarin Sodium 5 MG Oral Tablet (Coumadin)Indicatio ns:Pulmonary embolism and infarction (HCC) Take 0.5-1 Tablets by mouth every evening. 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 45 Tablet 3 08/14/2023 Active Furosemide 40 MG Oral Tablet (Lasix)Indications: Acute on chronic diastolic congestive heart failure (HCC) Take one tablet daily and as directed for weight gain 0 10/31/2023 Active guaiFENesin ER 600 MG Oral Tablet Extended Release 12 Hour (Humibid LA)Indications:Acut e cough Take 1 Tablet by mouth in the morning and 1 Tablet before bedtime. 40 Tablet 0 11/04/2023 Active Fluticasone Propionate 50 MCG/ACT Nasal Suspension (Flonase)Indication s:Acute cough ADMINISTER 1 SPRAY INTO EACH NOSTRIL IN THE MORNING AND 1 SPRAY IN THE EVENING FOR 5 DAYS 16 mL 1 11/19/2023 Active Esomeprazole Magnesium 40 MG Oral Capsule Delayed ReleaseIndications: 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 TAKE 1 CAPSULE [...] Active Levothyroxine Sodium 125 MCG Oral Tablet (Levoxyl)Indication s:Carcinoma of bladder (HCC) TAKE 1 TAB BY MOUTH DAILY FIRST THING IN THE MORNING AT LEAST 30 MIN PRIOR TO BREAKFAST/OTHER MEDS 90 Tablet 0 01/06/2024 Active Zolpidem Tartrate 5 MG Oral Tablet (Ambien)Indications :Restless leg syndrome Take 1 Tablet by mouth at bedtime as needed for Sleep. 30 Tablet 0 01/22/2024 Active predniSONE 10 MG Oral Tablet (Deltasone)Indicati ons:Mild persistent asthma with exacerbation Take 5 tabs for 2 days, 4 tabs for 2 days, 3 tabs for 2 days, 2 tabs for 2 days 1 tab for 2 days 30 Tablet 0 01/21/2024 Active documented as of this encounter (statuses as [...] rinse after steroid. Test performed by Sameer PADDED PRODUCTS INSPECTOR TRIMMER CPFT Pleural plaque due to asbestos exposure Restrictive lung disease Overview: In Check dial performed to assess inhaler technique: 12/15/19 Name of inhalers Albuterol Pass: Yes at 60 L/min and Advair Pass: Yes at 60 L/min. Encouraged to to take deep breath, use aero chamber, and rinse after steroid. Test performed by Sameer P[employer]ODU[employer] INSPECTOR TRIMMER CPFT Hx of pulmonary embolus 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 Overview: [place] C0-M6 documented as of this encounter (statuses [...] Malignant neoplasm of prostate 09/23/2008 03/27/2018 Overview: [place] grade 3 Atrial flutter 09/02/2007 10/16/2007 Herpes simplex virus infection 08/22/2005 04/05/2016 Anal fissure 06/04/2005 10/16/2007 M[facility] current use of ant icoagulant therapy 05/30/2005 10/16/2007 Overview: ICD-10 update of inactive term Atrial fibrillation 11/22/2004 10/16/20 07 Hypertensive heart disease 11/22/2004 1 Overview: Per Heart Failure Taxonomy Protocol. mild concentric lvh on stress echo DIASTOLIC DYSFUNCTION 11/22/20042006 Overview: GRADE II Heart valve replaced 02/09/2004 007 Overview: ICD-10 update of inactive term [...] mRNA, LNP-s, No Pre serve, 2-Dose Series (AXADO) 12/01/2021,01/16/2021,12/26/2020 COVID-19, LNP-s, No Preserve , Ozzy-sucrose, Ages 12+ (AXADO) 12/01/2021 COVID-19, MRNA-LNP, 23-24, P F, 30 MCG/0.3 mL, 12 YRS AND ABOVE, IM ([facility]) 09/18/2023 Covid-19, Mrna, Lnp-s, Pf, B ivalent, 30 Mcg, IM, 12 yrs and above (AXADO) 10/09/2022 Pneumococcal Conjugate Vacc, 13 Valent (Prevnar) [...] encounter Miscellaneous Notes * Telephone Encounter - Theo Jean RN - 01/22/2024 10:36 AM EST Flu swab is in process. Pt prescribed prednisone recently by PCP, some exp wheezes noted per PCP note. Dr. Louis - please review labs. Hgb slightly lower than patients baseline (around 10.4). Plt count continues to decline. Received Procrit today. * Telephone Encounter - Leana Sears LPN - 01/22/2024 10:12 AM EST Pt seen today in office for Procrit injection. Hgb 9.7. Pt reports he feels short of breath and hasnever slept this much in his life. Pt also reports he has an upper respiratory infection that is being treated. Pt questions if he needs some more iron. Iron is 44. Nurse reported she will send a telephone encounter. documented in this encounter Plan of Treatment Upcoming Encounters Date Type Department Care Team (Late st Contact Info) Description 01/28/2024 9:10 AM EDT Laboratory Laboratory [address] [place] [phone] [place] [address] 01/29/2024 10:30 AM EDT Immunization/Injection Hematology/[address], [address] [phone] [address], [address] [address] 02/03/2024 9:50 AM EDT Office Visit Ophthalmology, [facility] [address] [facility] [place] [address] Pablo Casanova, DO [address] [place] [address] 02/04/2024 6:30 AM EDT Anticoagulation Pharmacy Call Center [address] [place] [address] Ccps, [facility] [address] [place] [address] 02/06/2024 10:30 AM EDT Office Visit Cardiology, [facility] [address] [facility] [place] [address] Andres Rainey MD 132 [facility] [place] [address] 02/11/2024 9:40 AM EDT Office Visit Family Medicine [address] [place] [phone] Bell Mcqueen MD [address] [place] [address] [place] [address] 02/19/2024 11:00 AM EDT Immunization/Injection Hematology/Oncology Treatment, [address] [phone] Nurse, Med 4 [address] [facility] [place], [place] [address] 05/13/2024 11:00 AM EDT Office Visit Hematology/Oncology [facility] [place] [address] [facility] [place] [phone] Ludwig Louis MD [address] [facility] [place] [address] 08/10/2024 1:40 PM EDT Office Visit Rheumatology [address] [place] [phone] Win Nielsen MD [address] [facility] [place], [place] [address] Scheduled Procedures Name Priority Associated Diagnoses Date/Ti me ESOPHAGOGASTRODUODENOSCOPY ( EGD), FLEXIBLE, TRANSORAL, DIAGNOSTIC Recall Stark's esophagus with dysplasia Health Maintenance Due Date Last Done Comments Depression Screening 07/12/2021 07/12/2020 CKD PHOS USE SMARTSET 98035 08/21/2022 100 02/2021, 07/12/2020, 03/13/2019, Additional history exists *BISPHONATE OR OTHER ACCEPTABLE MEDICATION NEEDED FOR OSTEOPOROSIS (REFER TO SMARTSET #1146) 10/14/2023 Albumin/Creatinine Ratio 04/22/2024 023, 05/24/2022, 03/26/2022, Additional history exists CKD HGB USE SMARTSET 55914 01/20/202501/20, 01/21/2024, 01/14/2024, Additional history exists TSH [...] D LEVEL ONCE IN A LIFETIME-USE SMARTSET# 28180 Completed 04/22/2023, 08/28/2021, 07/14/2015 Influenza Vaccine (FLU [...] this encounter Medical Devices Implanted Type Area Charter Pilot Device Identifier Shelf Expiration Date Model / Serial / Lot Power Port 8fr Sngl Lumen Plas - [id number] Implanted:Qty: 1 on 02/22/2022 at [facility] CR BARD : PERIPHERAL VASCULAR [id number] 02/15/2023 [id number] / / [id number] documented as of this encounter Additional Health Concerns Infection Onset Date Last Indicated Resolved Time RSV 01/21/2024 01/21/2024 documented as of this encounter Advance Directives Latest Code Status on File Code Status Date Activated Date Inactivated Comments Full Code 09/03/2007 7:29 AM 09/03/2007 4:02 PM
--- OUTSIDE RECORDS SUMMARY | 2024-01-23 20:52 | External Medical Summary | Summary of Care ---
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) Procedures MT INJ RETACRIT NON-ESRD USE MT THERAPEUTIC PROPHYLACTIC/DX INJECTION SUBQ/IM MT EPOETIN IVAN, NON-ESRD Ludwig Louis MD [address] [place] [address] Anc Hem/Onc Dony Hickman DEPT CLOSED - 10/01/23 [address] [place] [address] Referral ID Status Reason Start Date Expiration Date V isits Requested Visits Authorized [id number] Authorized 11/22/2023 02/14/2024 999 99 Encounter Details Date Type Department Care Team (Late st Contact Info) Description 01/22/2024 9:30 AM EST Immunization/I njection Hematology/Oncology Treatment, [place] [address] [place] [phone] Nurse, Med [address] [place] [address] Carcinoma of bladder (HCC)*; Iron deficiency anemia, unspecified iron deficiency anemia type; Chronic kidney disease, stage 3b (HCC); 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 Or take as instructed by the [facility] 90 Tablet 3 08/09/2023 Active [...] A DAY 180 Capsule 1 11/19/2023 Active Zolpidem Tartrate 5 MG Oral Tablet (Ambien)Indications :Restless leg syndrome Take 1 Tablet by mouth at bedtime as needed for Sleep. 30 Tablet 0 12/17/2023 Active predniSONE 5 MG Oral Tablet (Deltasone) [...] BREAKFAST/OTHER MEDS 90 Tablet 0 01/06/2024 Active predniSONE 10 MG Oral Tablet (Deltasone)Indicati [...] rinse after steroid. Test performed by Sameer KRUGER CPFT Pleural plaque due to asbestos exposure Restrictive lung disease Overview: In Check dial performed to assess inhaler technique: 12/15/19 Name of inhalers Albuterol Pass: Yes at 60 L/min and Advair Pass: Yes at 60 L/min. Encouraged to to take deep breath, use aero chamber, and rinse after steroid. Test performed by Sameer POWER LINE INSTALLER AND REPAIRER CPFT Hx of pulmonary embolus 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 Overview: [place] C0-M6 documented as of this encounter (statuses [...] Malignant neoplasm of prostate 09/23/2008 03/27/2018 Overview: [place] grade 3 Atrial flutter 09/02/2007 10/16/2007 Herpes [...] mRNA, LNP-s, No Pre serve, 2-Dose Series ([employer]) 12/01/2021,01/16/2021,12/26/2020 COVID-19, LNP-s, No Preserve , Ozzy-sucrose, Ages 12+ (Pfizer) 12/01/2021 COVID-19, MRNA-LNP, 23-24, P F, 30 MCG/0.3 mL, 12 YRS AND ABOVE, IM (PFIZER-Comirnaty) 09/18/2023 Covid-19, Mrna, Lnp-s, Pf, B ivalent, 30 Mcg, IM, 12 yrs and above ([employer]) 10/09/2022 Pneumococcal Conjugate Vacc, 13 Valent (Prevnar) [...] on file documented as of this encounter Last Filed Vital Signs Vital Sign Reading Time Taken Comments Blood Pressure 97/53 01/22/2024 9:47 AM EST Pulse 100 01/22/2024 9:47 AM EST Temperature - - Respiratory Rate 22 01/22/2024 9:47 AM EST Oxygen Saturation 94% 01/22/2024 9:47 AM EST Inhaled Oxygen Concentration - - Weight - - Height - - Body Mass Index - - documented in this encounter Nursing Notes * Leana Sears LPN - 01/22/2024 10:05 AM EST Pt arrived for Procrit injection. Hgb 9.7. BP low at 97/53. Pt reports he "has been running low on everything." Pt reports he has been sick with an upper respiratory infection and just can't seem to get over it. Pt denies being light headed or dizzy. Pt did bring up concern of his low iron and wondered if he needed more iron. Administered procrit in [place]. Pt tolerated well. To return in one week. Discharged in stable condition. documented in this encounter Plan of Treatment Upcoming Encounters Date Type Department Care Team (Late st Contact Info) Description 01/28/2024 9:10 AM EDT Laboratory Laboratory [address] [place] [phone] [place] [address] 01/29/2024 10:30 AM EDT Immunization/Injection Hematology/Oncology Treatment, [place] [address] [place] [phone] Nurse, Med 200 [facility] [place] [address] 02/03/2024 9:50 AM EDT Office Visit Ophthalmology, [facility] 132 [facility] [place] [address] Pablo Casanova T, DO [address] [place] [address] 02/04/2024 6:30 AM EDT Anticoagulation Pharmacy Call Center WB [address] [facility] [place] [address] [facility] 58 60 [facility] [place] [address] 02/06/2024 10:30 AM EDT Office Visit Cardiology, [facility] [address] [place] [address] Andres Rainey MD [address] [place] [address] 02/11/2024 9:40 AM EDT Office Visit Family Medicine [address] [place] [phone] Bell Mcqueen MD [address] [place] [address] [place] [address] 02/19/2024 11:00 AM EDT Immunization/Injection Hematology/Oncology Treatment, [address] [phone] Nurse, Med [address] [place] [address] [place] [address] 05/13/2024 11:00 AM EDT Office Visit Hematology/Oncology [address] [place] [phone] Ludwig Louis MD 200 [facility] [place] [address] 08/10/2024 1:40 PM EDT Office Visit Rheumatology [address] [place] [phone] Win Nielsen MD [address] [place] [address] [place] [address] Scheduled Procedures Name Priority Associated Diagnoses Date/Ti me ESOPHAGOGASTRODUODENOSCOPY ( EGD), FLEXIBLE, TRANSORAL, DIAGNOSTIC Recall Stark's esophagus with dysplasia Health Maintenance Due Date Last Done Comments Depression Screening 07/12/2021 07/12/2020 CKD PHOS USE SMARTSET 71136 08/21/2022 10/0 02/2021, 07/12/2020, 03/13/2019, Additional history exists *BISPHONATE OR OTHER ACCEPTABLE MEDICATION NEEDED FOR OSTEOPOROSIS (REFER TO SMARTSET #1146) 10/14/2023 Albumin/Creatinine Ratio 04/22/2024 023, 05/24/2022, 03/26/2022, Additional history exists CKD HGB USE SMARTSET 57002 01/20/202501/20, 01/21/2024, 01/14/2024, Additional history exists TSH [...] D LEVEL ONCE IN A LIFETIME-USE SMARTSET# 96000 Completed 04/22/2023, 08/28/2021, 07/14/2015 Influenza Vaccine (FLU [...] this encounter Medical Devices Implanted Type Area Tactical Air Control Party Device Identifier Shelf Expiration Date Model / Serial / Lot Power Port 8fr Sngl Lumen Plas - [id number] Implanted:Qty: 1 on 02/22/2022 at [facility] CR BARD : PERIPHERAL VASCULAR [id number] 02/15/2023 [id number] / / [id number] documented as of this encounter Visit Diagnoses Diagnosis Carcinoma of bladder (HCC)- Primary Malignant neoplasm of bladder, part unspecified Iron deficiency anemia, unspecified iron deficiency anemia type Chronic kidney disease, stage 3b (HCC) 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
--- OUTSIDE RECORDS SUMMARY | 2024-01-23 20:52 | External Medical Summary | Summary of Care ---
Author Name Unknown Organization [facility] Address [address] [place] [address] Phone [phone] Care Team Providers Care Manager Ui Name Role Phone Unavailable Primary Care Provider Unavailabl e Reason for Visit * Reason Comments Acute Encounter Details Date Type Department Care Team (Late st Contact Info) Description 01/21/2024 2:00 PM EST Office Visit Family Medicine [address] [phone] Bell Mcqueen MD [address] [place] [address] [place] [phone] Mild persistent asthma with exacerbation*; Acute cough Allergies Active Allergy Reactions Criticality Noted Date Comments Penicillins Other (Please comment),Rash High Eyes swell Pollen 05/03/2022 Wound Dressing Adhesive Rash 05/02/2023 Patient reported documented as of this encounter (statuses as of 01/21/2024) Medications Medication Sig Dispensed Refills Start Date [...] albuterol 120 mL 5 11/21/2022 Active Ipratropium Ringsted 0.02 % Inhalation Solution (Atrovent)Indicati ons:Moderate persistent [...] Respimat 2.5 MCG/ACT Inhalation Aerosol Solution (Tiotropium [place] Monohydrate)Indica tions:Moderate persistent asthma without complication INHALE 2 PUFFS BY MOUTH EVERY DAY 12 g 3 04/30/2023 Active Warfarin Sodium 5 MG Oral Tablet (Coumadin)Indicati ons:Pulmonary embolism and infarction (HCC) Take 0.5-1 Tablets by mouth every evening. Or take as instructed by the [facility] 90 Tablet 3 [...] 01/06/2024 Active predniSONE 10 MG Oral Tablet (Deltasone)Indicat ions:Mild persistent asthma with exacerbation Take 5 tabs for 2 days, 4 tabs for 2 days, 3 tabs for 2 days, 2 tabs for 2 days 1 tab for 2 days 30 Tablet 0 01/21/2024 Active traMADol HCl 50 MG Oral Tablet (Ultram)Indication s:Spinal stenosis of lumbar region without neurogenic claudication Take 1 Tablet by mouth every 6 hours as needed for Pain, Severe. 60 Tablet 0 04/08/2023 4 Discontinue d(Medicatio n List Clean Up) documented as of this encounter (statuses as of 01/21/2024) Active Problems Problem Noted Date Diagnosed Date [...] rinse after steroid. Test performed by Sameer TILE SORTER CPFT Pleural plaque due to asbestos exposure Restrictive lung disease Overview: In Check dial performed to assess inhaler technique: 12/15/19 Name of inhalers Albuterol Pass: Yes at 60 L/min and Advair Pass: Yes at 60 L/min. Encouraged to to take deep breath, use aero chamber, and rinse after steroid. 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 Overview: [place] C0-M6 documented as of this encounter (statuses as of 01/21/2024) Resolved Problems Problem Noted Date Diagnosed Date [...] infection 08/22/2005 04/05/2016 Anal fissure 06/04/2005 10/16/2007 nursing home current use of ant icoagulant therapy 05/30/2005 [...] as of this encounter (statuses as of 01/21/2024) Immunizations Name Administration Dates Next Due COVID-19 mRNA, LNP-s, No Pre serve, 2-Dose Series (Corvil) 12/01/2021,01/16/2021,12/26/2020 COVID-19, LNP-s, No Preserve , Ozzy-sucrose, Ages 12+ (Corvil) 12/01/2021 COVID-19, MRNA-LNP, 23-24, P F, 30 MCG/0.3 mL, 12 YRS AND ABOVE, IM ([facility] 09/18/2023 Covid-19, Mrna, Lnp-s, Pf, B ivalent, 30 Mcg, IM, 12 yrs and above (Corvil) 10/09/2022 Pneumococcal Conjugate Vacc, 13 Valent (Prevnar) [...] Sign Reading Time Taken Comments Blood Pressure 108/52 01/21/2024 10:31 AM EST Pulse 88 01/21/2024 10:31 AM EST Temperature 36.3 C (97.3 F) 01/21/2024 10:[address] Respiratory Rate - - Oxygen Saturation 90% 01/21/2024 10:31 AM EST Inhaled Oxygen Concentration - - Weight 65 kg (143 lb 6.4 oz) 01/21/2024 10:31 AM EST Height - - Body Mass Index 25.4 09/19/2023 10:34 AM EDT documented in this encounter Progress Notes * Bell Mcqueen MD - 01/21/2024 10:35 AM EST Subjective: HPI: Patrick Robles is a 88 year old male with hx of AVR, MVR, afib on coumadin, Tachy-kurt syndrome s/psingle chamber pacemaker, HTN, HLD, b/l carotid aa stenosis, Hypothyroidism, Recurrent Urothelial carcinoma of the bladder, Asthma, CKD III, chronic anemia, on chronic prednisonepre seen for For 3 days - cough (productive), wheezing, SOB and fatigue - has been taking the neb often - denied any fever or GI symptoms - taking mucinex BID Patient Active Problem List Diagnosis Code History of tobacco use Z87.891 S/P AVR (aortic valve replacement) Z95.2 DIVERTICULOSIS OF COLON K57.30 GENERAL OSTEOARTHROSIS M15.9 SBE (subacute bacterial endocarditis) prophylaxis candidate Z29.89 ADVANCE DIRECTIVE INFORMATION BPH without obstruction/lower urinary tract symptoms N40.0 Paroxysmal SVT (supraventricular tachycardia) I47.10 Spinal stenosis of lumbar region without neurogenic claudication M48.061 Herniated nucleus pulposus, L4-5 right M51.26 Asymptomatic bilateral carotid artery stenosis I65.23 Hypertensive heart disease without heart failure I11.9 Restless leg syndrome G25.81 Dyslipidemia, goal LDL below 70 E78.5 Hiatal hernia K44.9 Cholelithiases K80.20 Left ventricular diastolic dysfunction, NYHA class 1 I51.89 Longstanding persistent atrial fibrillation (HCC) I48.11 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 Actinic keratosis L57.0 Senile osteoporosis M81.0 H/O mitral valve repair Z98.890 Cardiac pacemaker in situ Z95.0 Moderate persistent asthma without complication J45.40 Pleural plaque due to asbestos exposure J92.0 Restrictive lung disease J98.4 Hx of pulmonary embolus Z86.711 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 K22.70 ROMERO (dyspnea on exertion) R06.09 Long-segment Stark's esophagus K22.70 Carcinoma of bladder (HCC) C67.9 Iron deficiency anemia D50.9 Asbestosis (HCC) J61 Pulmonary hypertension (HCC) I27.20 Urothelial carcinoma of bladder (HCC) C67.9 Anemia of chronic disease D63.8 Acquired hypothyroidism E03.9 Encounter for central line care Z45.2 Chronic kidney disease, stage 3b (HCC) N18.32 Hypertensive heart and kidney disease without heart failure and with stage 3b chronic kidney disease (HCC) I13.10, N18.32 Anemia due to stage 3b chronic kidney disease (HCC) N18.32, D63.1 Current Outpatient Medications Medication Sig Dispense Refill CO Q10 100 MG PO TABS 1 tab once daily ZOVIRAX 5 % EX OINT 5 times daily as needed. Polyethylene Glycol 3350 17 GM Oral Packet Take 1 Packet by mouth in the morning. 14 Each 0 Clindamycin HCl 300 MG Capsule Prior to dental appt 0 Albuterol Sulfate (PROAIR HFA) 108 (90 Base) MCG/ACT AERS Inhale 2 Puffs by mouth every 4 hours as needed for Wheezing. 1 Inhaler 3 Sucralfate 1 GM/10ML Oral Suspension (Carafate) Take 10 mL by mouth 4 times a day. 1260 mL 0 Vitamin B12 500 MCG Oral Tablet 2 tabs daily 180 Tab 1 One-A-Day Mens 50+ Advantage Oral Tablet Take 1 Tablet by mouth daily. Vitamin D 25 MCG (1000 UT) Oral Tablet Take 1 Tablet by mouth in the morning. Tamsulosin HCl 0.4 MG Oral Capsule (Flomax) TAKE 1 CAPSULE BY MOUTH AT BEDTIME Albuterol Sulfate (2.5 MG/3ML) 0.083% Inhalation Nebulization Solution (Proventil) Inhale 1 Vial via nebulizer every 6 hours as needed for Wheezing. Mix with albuterol 120 mL 5 Ipratropium Ringsted 0.02 % Inhalation Solution (Atrovent) Inhale 2.5 mL via nebulizer in the morning and 2.5 mL at noon and 2.5 mL in the evening and 2.5 mL before bedtime. Mix with albuterol solution. 75 mL 12 Ferrous Sulfate 325 (65 Fe) MG Oral Tablet (Feosol) TAKE ONE TABLET BY MOUTH WITH FOOD DAILY 90 Tablet 3 Spiriva Respimat 2.5 MCG/ACT Inhalation Aerosol Solution (Tiotropium Ringsted Monohydrate) INHALE 2 PUFFS BY MOUTH EVERY DAY 12 g 3 Warfarin Sodium 5 MG Oral Tablet (Coumadin) Take 0.5-1 Tablets by mouth every evening. Or take as instructed by the [facility] 90 Tablet 3 Spironolactone 25 MG Oral Tablet (Aldactone) Take 0.5 Tablets by mouth in the morning. 45 Tablet 3 Furosemide 40 MG Oral Tablet (Lasix) Take one tablet daily and as directed for weight gain guaiFENesin ER 600 MG Oral Tablet Extended Release 12 Hour (Humibid LA) Take 1 Tablet by mouth in the morning and 1 Tablet before bedtime. 40 Tablet 0 Fluticasone Propionate 50 MCG/ACT Nasal Suspension (Flonase) ADMINISTER 1 SPRAY INTO EACH NOSTRIL IN THE MORNING AND 1 SPRAY IN THE EVENING FOR 5 DAYS 16 mL 1 Esomeprazole Magnesium 40 MG Oral Capsule Delayed Release TAKE 1 CAPSULE BY MOUTH TWICE A DAY 180 Capsule 1 Zolpidem Tartrate 5 MG Oral Tablet (Ambien) Take 1 Tablet by mouth at bedtime as needed for Sleep. 30 Tablet 0 predniSONE 5 MG Oral Tablet (Deltasone) TAKE 1 TABLET BY MOUTH EVERY DAY 90 Tablet 2 Erythromycin 5 MG/GM Ophthalmic Ointment Instill 0.25 Inches into eye at bedtime. 3.5 g 3 Rosuvastatin Calcium 10 MG Oral Tablet (Crestor) TAKE 1 TABLET BY MOUTH EVERY DAY 90 Tablet 1 Levothyroxine Sodium 125 MCG Oral Tablet (Levoxyl) TAKE 1 TAB BY MOUTH DAILY FIRST THING IN THE MORNING AT LEAST 30 MIN PRIOR TO BREAKFAST/OTHER MEDS 90 Tablet 0 predniSONE 10 MG Oral Tablet (Deltasone) Take 5 tabs for 2 days, 4 tabs for 2 days, 3 tabs for 2 days, 2 tabs for 2 days 1 tab for 2 days 30 Tablet 0 traMADol HCl 50 MG Oral Tablet (Ultram) Take 1 Tablet by mouth every 6 hours as needed for Pain, Severe. (Patient not taking: Reported on 01/21/2024) 60 Tablet 0 No current facility-administered medications for this visit. Past Medical History: Diagnosis Date Acquired hypothyroidism Allergic rhinitis Anal fissure 05/2005 treated at [place] Anemia of chronic disease 04/15/2020 Aortic valve disorder Asbestosis (HCC) Asbestosis (HCC) Asthma Atrial fibrillation (HCC) 11/16/2004 Atrial flutter (HCC) 01/2004 early post cardiac surgery 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 [place] [facility] [place] with ablation by Dr Gallardo 09/02/07 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 [place] C0-M6 Benign neoplasm of colon 03/09/2002 Benign neoplasm of colon 09/21/2009 2 tubular adenomas removed BPH without obstruction/lower urinary tract symptoms 01/2006 Dr Goodwin Calcifying tendinitis of shoulder 10/03/2000 Cardiac pacemaker in situ 10/01/2017 Cataract 06/2012 [place] Cholelithiases COVID-19 10/25/2020 [facility] DIASTOLIC DYSFUNCTION 11/22/2004 GRADE II Diverticulosis of colon Dyslipidemia, goal LDL below 70 Fractured rib 09/25/2022 fractures of right 6-10 Generalized osteoarthritis Herniated nucleus pulposus, L4-5 right Hiatal hernia Hx of pulmonary embolus Hypertensive heart disease 11/22/2004 mild concentric lvh on stress echo 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) Left ventricular diastolic dysfunction, NYHA class 1 Grade I impaired relaxation Long-segment Stark's esophagus 07/28/2020 [place] C0-M5 Malignant neoplasm of prostate (HCC) 09/23/2008 Farhad grade 3 Malignant neoplasm of sigmoid colon (HCC) [address] ham at [place] Moderate persistent asthma without complication Paroxysmal SVT (supraventricular tachycardia) 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, 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/2007 Pulmonary arterial hypertension (HCC) Pulmonary embolus (HCC) Pulmonary hypertension (HCC) 04/26/2021 43 mm Restrictive lung disease SBE (subacute bacterial endocarditis) prophylaxis candidate Septic shock (HCC) 11/18/2016 [facility] transferred from [place] Spinal stenosis of lumbar region without neurogenic claudication Stage 3b chronic kidney disease (HCC) 09/11/2022 EGFR 44 Tobacco use disorder Undiagnosed cardiac murmurs Urothelial carcinoma of bladder (HCC) 04/11/2021 high grade invasive papillary urothelial carcinoma Ventricular tachycardia (HCC) 08/2014 while admitted for PE; w/u [place] Past Surgical History: Procedure Laterality Date ABD/PELVIS CT W/ + W/O IV AND W/PO CONTRAST 05/14/2005 prostate enlarged, Clfd ABD/PELVIS CT W/ IV AND W/ PO CONTRAST N/A 11/18/2016 airspace opacities in lingula and LLL, enlarged heart, normal liver, multiple gallblader calculi, tiny renal cysts, posterior gastric diverticulum ABLATE HEART DYSRHYTHM FOCUS 12/2014 [place]--Dr. Dillard ARTHROPLASTY KNEE TOTAL Left 05/09/2017 Dr Bautista [facility] BIOPSY OF PROSTATE 09/23/2008 Dr Goodwin BIOPSY OF PROSTATE 09/26/2009 benign prostate tissue with atrophy and chronic inflammation CAROTID DUPLEX EXAMINATION 04/2008 16-49% occlusion right ext carotid artery COLONOSCOPY 09/18/2005 colo--colonic anastamosis at 30 cm, otherwise normal COLONOSCOPY 10/07/2012 [place]--patent anastamosis; no polyps COLONOSCOPY W/ LESION REMOVAL, CAUTERY 03/04/2002 6mm sessile polyp in base removed COLONOSCOPY W/ LESION REMOVAL, SNARE 12/10/2000 Colonoscopy/Remove Lesionw/snare of adenomatous polyp at 60 cm COLONOSCOPY W/ LESION REMOVAL, SNARE 03/04/2002 3-4cm sessile polyp filling part of lumen.circumferential.partially removed with snare and then tattooed in 2 sites with 2cc ink. COLONOSCOPY, DIAGNOSTIC (RECTUM) 06/02/2015 TA polyp, referred to surgery/[facility] COLONOSCOPY, DIAGNOSTIC (RECTUM) 06/09/2018 normal/[facility] COLONOSCOPY, REMOVE LESION, CAUTERY 09/21/2009 anastomosis at 30 cm, 2 polyps in descending colon, tubular adenomas CT CHEST W WO CONTRAST 10/22/2011 The small density seen in the left upper lobe on the recent chest x-ray corresponds to pleural calcifications, which are unchanged since 2007 CT HEAD/BRAIN WO CONTRAST N/A 11/10/2016 no acute changes CTA CHEST NON-CORONARY W CONTRAST 11/01/2023 no PE, . Pulmonary vascular congestion and bilateral pleural effusions, greater on the right. CYSTOSCOPY N/A 10/25/2021 bladder cancer and obstruction right ureter CYSTOSCOPY 10/01/2023 no cancer ECHO (2-D COMPLETE) 03/16/2010 stable with LVEF 60% ECHO, COMPLETE (2D), TRANS-THORACIC N/A 11/18/2016 normal LV size with mild concentric LVH, EF 55-60%, grade II diastolic dysfunction, bioprosthetic aortic valve ECHO, COMPLETE (2D), TRANS-THORACIC 01/26/2020 bioprosthetic aortic valve, EF 60% LVH EGD, FLEXIBLE, DIAGNOSTIC 06/02/2015 mild gastritis/[facility] EGD, FLEXIBLE, DIAGNOSTIC 06/09/2018 Barretts, hiatal hernia, gastric polyp, repeat 1 yr/[facility] EGD, FLEXIBLE, DIAGNOSTIC 07/07/2019 Barretts / [facility] EGD, FLEXIBLE, DIAGNOSTIC N/A 12/01/2019 ESOPHAGOGASTRODUODENOSCOPY (EGD), FLEXIBLE, TRANSORAL, DIAGNOSTIC performed by Domingo Garcia DO [place] [facility] [place], FLEXIBLE, DIAGNOSTIC N/A 03/14/2020 Partially treated Stark's stage C0-M9 per [place] Criteria Multiple gastric polyps, performed by Domingo Garcia DO [place] [facility] [place]GD, FLEXIBLE, DIAGNOSTIC N/A 05/25/2020 6 cm [place] C0-M6 Barretts lower esophagus, with radiofrequency ablation, performed by Domingo Garcia DO at [place] [facility] [place]GD, FLEXIBLE, DIAGNOSTIC N/A 07/28/2020 long segment Stark's [place] C0-M5, with nodlule at 31 cm, performed by Domingo Garcia DO at [place] [facility] [place]GD, FLEXIBLE, DIAGNOSTIC N/A 09/28/2020 C0-M1 Barretts, gastric polyps, 3 cm hiatal hernia, performed by Domingo Garcia DO at [place] [facility] [place]GD, FLEXIBLE, DIAGNOSTIC N/A 11/30/2020 residual Stark's, performed by Domingo Garcia DO at [place] [facility] [place]GD, FLEXIBLE, DIAGNOSTIC N/A 01/31/2021 residual Stark's EGD, FLEXIBLE, DIAGNOSTIC N/A 01/31/2021 ESOPHAGOGASTRODUODENOSCOPY (EGD), FLEXIBLE, TRANSORAL, DIAGNOSTIC performed by Domingo Garcia DO at [place] [facility] [place]GD, FLEXIBLE, DIAGNOSTIC N/A 07/04/2021 ESOPHAGOGASTRODUODENOSCOPY (EGD), FLEXIBLE, TRANSORAL, DIAGNOSTIC performed by Domingo Garcia DO at [place] [facility] [place]GD, FLEXIBLE, DIAGNOSTIC 02/26/2022 short segment Stark's at 31 cm, GE flap Hill Grade IV, 4 cm hiatal hernia EGD, FLEXIBLE, DIAGNOSTIC N/A 02/26/2022 ESOPHAGOGASTRODUODENOSCOPY (EGD), FLEXIBLE, TRANSORAL, DIAGNOSTIC performed by Domingo Garcia DO at [place] [facility] [place]GD, FLEXIBLE, LESION ABLATION N/A 07/04/2021 2 cm hiatal hernia, Ablation of [place] C0-M1 Stark's, multiple fundic gland polyps ELECTROPHYSIOLOGIC FOLLOWUP STUDY 09/02/2007 dual AV node physiology with easily inducible AV node reentry tachycardia, slow pathway ablated FISSURECTOMY W/ SPHINCTEROTOMY 05/22/2005 Dr Mendez, at [place] FLUORO ESOPHAGRAM ENTIRE WO VIDEO 09/07/2009 normal, Clfd HOLTER COMPLETE (COMM PRAC) 08/29/2017 predominant rhythm coarse atrial fib IOF MRI LUMBAR SPINE WO CONTRAST 03/2009 spinal stenosis, HNP L4 IR VENOUS ACCESS MEDIPORT 02/22/2022 MISCELLANEOUS ORDER ([facility] ONLY) Bilateral rotator cuff repairs bilaterally MRI BRAIN W WO CONTRAST 05/2008 chronic ischemic changes. retention cyst right max sinuses MRI SHOULDER WO CONTRAST 11/12/2002 tendinosis of the rotator cuff with mild impingement syndrome secondary to osteophyte formation along the acromioclavicular joint, at least partial tear of the rotator cuff is noted MRI T SPINE WO CONTRAST 03/2009 some DDD NM BONE SCAN WHOLEBODY 10/06/2008 METs, [facility] NM HEPATOBILIARY SYSTEM WITH PHARMACOLOGIC INTERVENTION N/A 11/20/2016 no cystic duct obstruction PARTIAL REMOVAL OF COLON 04/21/2002 for tubulovillous adenoma, [place] [facility] [place]IAL REMOVAL OF COLON 08/08/2015 right colectomy 08/08/2015 dr. de leon [facility] REMOVE CATARACT, INSERT LENS PROSTH 07/2012 Dr. Smith--right REMOVE TONSILS & ADENOIDS, UNDER 12 T & A, age<12 REPAIR INITIAL INGUINAL HERNIA REDUCIBLE AGE 5 OR MORE Left Inguianl hernia Repair, age 5+ yr REPLACEMENT AORTIC VALVE,NON-CORONARY SINUS 01/24/2004 23 CE pericardila AVR and 28 CE mitral valve ring Dr Soliz SPIROMETRY B/A BRONCHODILATOR 11/01/2011 normal SUTURE REPAIR OF ECTROPION Bilateral 12/06/2023 Dr. Casanova VASC ANKLE BRACHIAL INDEX Bilateral 10/05/2022 R 0.71, Left 0.84, moderate disease VASC ARTERIAL DOPPLER LE 08/31/2009 normal VASC DUPLEX CAROTID BILAT Bilateral 03/20/2021 Right is 70-99% with plaque, left <50% Review of patient's allergies indicates: Allergen Reactions Penicillins Other (Please comment) and Rash Eyes swell Pollen Wound Dressing Adhesive Rash Patient reported Family History Problem Relation Age of Onset Arthritis Mother Other (cataract) Mother Heart Disorder Father [place] in his 50's Diabetes Brother Cancer Brother Esophagus Asthma Son Arthritis Son Social History Tobacco Use Smoking status: Never Smokeless tobacco: Current Types: Snuff Tobacco comments: One can every couple of days x 50 yrs. Substance Use Topics Alcohol use: Not Currently Vaping/E-Cigarette Use Vaping/E-Cigarette Use Never User Vaping/E-Cigarette Substances Nicotine No Other No Flavoring No THC No Cannabidiol (CBD) No Vaping/E-Cigarette Devices Disposable No Pre-filled or Refillable Cartridge No Refillable Tank No Pre-filled Pod No ROS: -Per HPI OBJECTIVE: BP 108/52 | Pulse 88 | Temp 36.3 C (97.3 F) | Wt 65 kg (143 lb 6.4 oz) | SpO2 90% | BMI 25.40 kg/m | BSA 1.7 m PHYSICAL EXAM: Lungs: Good air entry b/l with upper lung exp wheezing b/l ASSESSMENT/PLAN: Symptoms are likely 2/2 viral URI - not suspecting PNA - will treat for asthma exacerbation - nasal swab today Mild persistent asthma with exacerbation (Primary) - predniSONE 10 MG Oral Tablet (Deltasone); Take 5 tabs for 2 days, 4 tabs for 2 days, 3 tabs for 2days, 2 tabs for 2 days 1 tab for 2 days Acute cough - INFLUENZA A/B RSV SARS-COV2,PCR Bell Mcqueen MD Family medicine, [place] [phone] documented in this encounter Nursing Notes * uSsan Smith, JEWELRY SALES ASSOCIATE - 01/21/2024 10:29 AM EST He is cough, congestion and trouble breathing. It started 3-4 days ago. documented in this encounter Plan of Treatment Upcoming Encounters Date Type Department Care Team (Late st Contact Info) Description 01/22/2024 9:30 AM EST Immunization/Injection Hematology/Oncology Treatment, [place] [address] [facility] [place] [phone] Nurse, Med 4 [facility] [address] 01/28/2024 9:10 AM EDT Laboratory Laboratory [address] [place] [phone] [place], [address] [place] [address] 01/29/2024 10:30 AM EDT Immunization/Injection [facility]ematology[facility]cology Treatment, [place] [facility] [phone] Nurse, Med 4 200 [facility] [place] [address] 02/03/2024 9:50 AM EDT Office Visit Ophthalmology, [facility] [address] [facility] [place] [address] Pablo Casanova T, DO [address] [place] [address] 02/04/2024 6:30 AM EDT Anticoagulation Pharmacy Call Center [facility] [address] [facility] [place] [address] [facility], [facility] 58 [address] [facility] [place] [address] 02/06/2024 10:30 AM EDT Office Visit Cardiology, [facility] [address] [facility] [place] [address] Andres Rianey MD [address] [place] [address] 02/11/2024 9:40 AM EDT Office Visit Family Medicine [address] [place] [phone] Bell Mcqueen MD [address] [place] [address] [place] [address] 02/19/2024 11:00 AM EDT Immunization/Injection Hematology/Oncology Treatment, [place] [address] [facility] [place] [phone] Nurse, Med 4 [address] [facility] [place] [address] 05/13/2024 11:00 AM EDT Office Visit Hematology/Oncology [facility] [address] [facility] [place] [phone] Ludwig Louis MD [address] [place] [address] 08/10/2024 1:40 PM EDT Office Visit Rheumatology [address] [place] [phone] Win Nielsen MD [facility] [place] [address] Scheduled Orders Name Type Priority Associated Diagnoses Orde r Schedule INFLUENZA A/B RSV SARS-COV2,PCR Lab Routine Acute cough Ordered: 01/21/2024 Scheduled Procedures Name Priority Associated Diagnoses Date/Ti me ESOPHAGOGASTRODUODENOSCOPY ( EGD), FLEXIBLE, TRANSORAL, DIAGNOSTIC Recall Stark's esophagus with dysplasia Health Maintenance Due Date Last Done Comments Depression Screening 07/12/2021 07/12/2020 CKD PHOS USE SMARTSET 33524 08/21/2022 10/0 02/2021, 07/12/2020, 03/13/2019, Additional history exists *BISPHONATE OR OTHER ACCEPTABLE MEDICATION NEEDED FOR OSTEOPOROSIS (REFER TO SMARTSET #1146) 10/14/2023 Albumin/Creatinine Ratio 04/22/2024 023, 05/24/2022, 03/26/2022, Additional history exists TSH 10/08/2024 10/08/2023, 10/0 01/2023, 06/19/2023, Additional history exists CKD HGB USE SMARTSET 87035 01/14/202501/14, 01/14/2024, 01/07/2024, Additional history exists Stark's Esophagus Surveilance 02/26/2025 02/26/2022, 02/26/2022, 07/04/2021, Additional history exists DXA Scan 07/05/2025 07/05/2023, 10/19, 11/04/2018, Additional history exists DTaP,Tdap,and Td Vaccines (2 - Td or Tdap) 08/19/2027 08/19/2017, 08/20/2008 Pneumococcal Vaccine: 65+ Years Completed 06/23/2015, 05/14/2013, 04/18/2004 Zoster Vaccines Completed 12/02/2020, 08/15/2020 VITAMIN D LEVEL ONCE IN A LIFETIME-USE SMARTSET# [id number] Completed 04/22/2023, 08/28/2021, 07/14/2015 Influenza Vaccine (FLU [...] this encounter Medical Devices Implanted Type Area Feather Cutting Machine Feeder Device Identifier Shelf Expiration Date Model / Serial / Lot Power Port 8fr Sngl Lumen Plas - [id number] Implanted:Qty: 1 on 02/22/2022 at [facility] CR BARD : PERIPHERAL VASCULAR [id number] 02/15/2023 [id number] / / [id number] documented as of this encounter Visit Diagnoses Diagnosis Mild persistent asthma with exacerbation- Primary Unspecified asthma, with exacerbation Acute cough documented in this encounter Advance Directives Latest Code Status on File Code Status Date Activated Date Inactivated Comments Full Code 09/03/2007 7:29 AM 09/03/2007 4:02 PM"
--- OUTSIDE RECORDS SUMMARY | 2024-01-23 20:52 | External Medical Summary | Summary of Care ---
Author Name Unknown Organization [facility] Address [address] [place] [address] Phone [phone] Care Team Providers Care Country Sales Manager Name Role Phone Unavailable Primary Care Provider Unavailabl e Reason for Visit * Reason Comments Outpatient Testing Encounter Details Date Type Department Care Team (Late st Contact Info) Description 01/21/2024 9:00 AM EST Laboratory Laboratory [address] [place] [phone] [place] [address] Urothelial carcinoma of bladder (HCC); Carcinoma of bladder (HCC); Chronic kidney disease, stage 3a (HCC); Encounter for antineoplastic immunotherapy Allergies Active Allergy Reactions Criticality Noted Date [...] albuterol 120 mL 5 11/21/2022 Active Ipratropium [place] 0.02 % Inhalation Solution (Atrovent)Indicati ons:Moderate persistent [...] Respimat 2.5 MCG/ACT Inhalation Aerosol Solution (Tiotropium [place] Monohydrate)Indica tions:Moderate persistent asthma without complication INHALE 2 PUFFS BY MOUTH EVERY DAY 12 g 3 04/30/2023 Active Warfarin Sodium 5 MG Oral Tablet (Coumadin)Indicati ons:Pulmonary embolism and infarction (HCC) Take 0.5-1 Tablets by mouth every evening. Or take as instructed by the [facility] 90 Tablet 3 08/09/2023 Active [...] rinse after steroid. Test performed by Sameer COMBINATION WELDER APPRENTICE CPFT Pleural plaque due to asbestos exposure Restrictive lung disease Overview: In Check dial performed to assess inhaler technique: 12/15/19 Name of inhalers Albuterol Pass: Yes at 60 L/min and Advair Pass: Yes at 60 L/min. Encouraged to to take deep breath, use aero chamber, and rinse after steroid. Test performed by Sameer COMBINATION WELDER APPRENTICE CPFT Hx of pulmonary embolus 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 Overview: [place] C0-M6 documented as of this encounter (statuses [...] infection 08/22/2005 04/05/2016 Anal fissure 06/04/2005 10/16/2007 salvage determiner current use of ant icoagulant therapy 05/30/2005 [...] mRNA, LNP-s, No Pre serve, 2-Dose Series (YAZUO) 12/01/2021,01/16/2021,12/26/2020 COVID-19, LNP-s, No Preserve , Ozzy-sucrose, Ages 12+ (YAZUO) 12/01/2021 COVID-19, MRNA-LNP, 23-24, P F, 30 MCG/0.3 mL, 12 YRS AND ABOVE, IM ([employer]ir[employer]) 09/18/2023 Covid-19, Mrna, Lnp-s, Pf, B ivalent, 30 Mcg, IM, 12 yrs and above (YAZUO) 10/09/2022 Pneumococcal Conjugate Vacc, 13 Valent (Prevnar) [...] on file documented as of this encounter Plan of Treatment Upcoming Encounters Date Type Department Care Team (Latest Contact Info) Description 01/21/2024 2:00 PM EST Office Visit Family Medicine [address] [phone] Bell Mcqueen MD [address] [place] [address] [place] [address] Mild persistent asthma with exacerbation*; Acute cough 01/22/2024 9:30 AM EST Immunization/Injection Hematology/Oncolo gy Treatment, [place] [address] [facility] [phone] [facility], [facility] [address] 01/28/2024 9:10 AM EDT Laboratory Laboratory [address] [place] [phone] [place] [address] 01/29/2024 10:30 AM EDT Immunization/Injection Hematology/Oncolo gy Treatment, [address] [phone] Nurse, Med [address] [place] [address] [place] [address] 02/03/2024 9:50 AM EDT Office Visit Ophthalmology, [facility] [address] [facility] [place] [address] Pablo Casanova, DO [address] [place] [address] 02/04/2024 6:30 AM EDT Anticoagulation Pharmacy Call Center [address] [place] [address] [facility] 58 [address] [place] [address] 02/06/2024 10:30 AM EDT Office Visit Cardiology, [facility] [address] [facility] [place] [address] Andres Rainey MD 132 [facility] [place] [address] 02/11/2024 9:40 AM EDT Office Visit Family Medicine [address] [place] [phone] Bell Mcqueen MD [address] [place] [address] [place] [address] 02/19/2024 11:00 AM EDT Immunization/Injection Hematology/Oncolo gy Treatment, [address] [phone] Nurse, Med 4 200 [facility] [place] [address] 05/13/2024 11:00 AM EDT Office Visit Hematology/Oncolo gy [facility] Ziggy Overton [address] [place] [phone] Ludwig Louis MD [address] [place] [address] 08/10/2024 1:40 PM EDT Office Visit Rheumatology [address] [place] [phone] Win Nielsen MD [facility] [place] [address] Pending Results Name Type Priority Associated Diagnoses Date /Time TSH WITH FREE T4 IF INDICATED Lab Routine Urothelial carcinoma of bladder (HCC) 01/21/2024 10:59 AM EST COMPREHENSIVE METABOLIC PANEL Lab STAT Carcinoma of bladder (HCC) Chronic kidney disease, stage 3a (HCC) Encounter for antineoplastic immunotherapy 01/21/2024 10:59 AM EST FERRITIN Lab STAT Carcinoma of bladder (HCC) Chronic kidney disease, stage 3a (HCC) Encounter for antineoplastic immunotherapy 01/21/2024 10:59 AM EST VITAMIN B12 Lab STAT Carcinoma of bladder (HCC) Chronic kidney disease, stage 3a (HCC) Encounter for antineoplastic immunotherapy 01/21/2024 10:59 AM EST FOLIC ACID Lab STAT Carcinoma of bladder (HCC) Chronic kidney disease, stage 3a (HCC) Encounter for antineoplastic immunotherapy 01/21/2024 10:59 AM EST IRON SCREEN, INCLUDING TIBC Lab STAT Carcinoma of bladder (HCC) Chronic kidney disease, stage 3a (HCC) Encounter for antineoplastic immunotherapy 01/21/2024 10:59 AM EST CBC WITH WBC DIFFERENTIAL Lab STAT Urothelial carcinoma of bladder (HCC) 01/21/2024 10:59 AM EST CBC Lab STAT Urothelial carcinoma of bladder (HCC) 01/21/2024 10:59 AM EST DIFFERENTIAL, AUTOMATED Lab STAT Urothelial carcinoma of bladder (HCC) 01/21/2024 10:59 AM EST Scheduled Procedures Name Priority Associated Diagnoses Date/Ti me ESOPHAGOGASTRODUODENOSCOPY ( EGD), FLEXIBLE, TRANSORAL, DIAGNOSTIC Recall Stark's esophagus with dysplasia Health Maintenance Due Date Last Done Comments Depression Screening 07/12/2021 07/12/2020 CKD PHOS USE SMARTSET 90733 08/21/2022 100 02/2021, 07/12/2020, 03/13/2019, Additional history exists *BISPHONATE OR OTHER ACCEPTABLE MEDICATION NEEDED FOR OSTEOPOROSIS (REFER TO SMARTSET #1146) 10/14/2023 Albumin/Creatinine Ratio 04/22/2024 023, 05/24/2022, 03/26/2022, Additional history exists TSH 10/08/2024 10/08/2023, 0 01/2023, 06/19/2023, Additional history exists CKD HGB USE SMARTSET 39345 01/14/202501/14, 01/14/2024, 01/07/2024, Additional history exists Stark's Esophagus Surveilance 02/26/2025 02/26/2022, 02/26/2022, 07/04/2021, Additional history exists DXA Scan 07/05/2025 07/05/2023, 10/19, 11/04/2018, Additional history exists DTaP,Tdap,and Td Vaccines (2 - Td or Tdap) 08/19/2027 08/19/2017, 08/20/2008 Pneumococcal Vaccine: 65+ Years Completed 06/23/2015, 05/14/2013, 04/18/2004 Zoster Vaccines Completed 12/02/2020, 08/15/2020 VITAMIN D LEVEL ONCE IN A LIFETIME-USE SMARTSET# 40220 Completed 04/22/2023, 08/28/2021, 07/14/2015 Influenza Vaccine (FLU [...] this encounter Medical Devices Implanted Type Area Type Cutter Device Identifier Shelf Expiration Date Model / Serial / Lot Power Port 8fr Sngl Lumen Plas - [id number] Implanted:Qty: 1 on 02/22/2022 at [facility] CR BARD : PERIPHERAL VASCULAR [id number] 02/15/2023 [id number] / / [id number] documented as of this encounter Visit Diagnoses Diagnosis Urothelial carcinoma of bladder (HCC) Carcinoma of bladder (HCC) Malignant neoplasm of bladder, part unspecified Chronic kidney disease, stage 3a (HCC) Encounter for antineoplastic immunotherapy Mild persistent asthma with exacerbation- Primary Unspecified asthma, with exacerbation Acute cough documented in this encounter Advance Directives Latest Code Status on File Code Status Date Activated Date Inactivated Comments Full Code 09/03/2007 7:29 AM 09/03/2007 4:02 PM
--- OUTSIDE RECORDS SUMMARY | 2024-01-23 20:52 | External Medical Summary | Summary of Care ---
Author Name Unknown Organization [facility] Address [address] [place] [address] Phone [phone] Care Team Providers Care Certified Orthotist Practice Manager Name Role Phone Juancho Romero MD Primary Care Provider [phone] Reason for Visit * Reason Onset Date Comments Medication Refill 01/18/2024 Encounter Details Date Type Department Care Team (Late st Contact Info) Description 01/18/2024 Telephone Family Medicine [address] [phone] Juancho Romero MD [address] [place] [address] [place] [address] Medication Refill Allergies Active Allergy Reactions Criticality Noted Date [...] albuterol 120 mL 5 11/21/2022 Active Ipratropium [place] 0.02 % Inhalation Solution (Atrovent)Indicati ons:Moderate persistent [...] Respimat 2.5 MCG/ACT Inhalation Aerosol Solution (Tiotropium [place] Monohydrate)Indica tions:Moderate persistent asthma without complication INHALE 2 PUFFS BY MOUTH EVERY DAY 12 g 3 04/30/2023 Active Warfarin Sodium 5 MG Oral Tablet (Coumadin)Indicati ons:Pulmonary embolism and infarction (HCC) Take 0.5-1 Tablets by mouth every evening. Or take as instructed by the [facility] 90 Tablet 3 08/09/2023 [...] BREAKFAST/OTHER MEDS 90 Tablet 0 01/06/2024 Active traMADol HCl 50 MG Oral Tablet [...] and [address] mitral valve ring Dr oSliz History of tobacco use 09/14/2003 DIVERTICULOSIS OF [...] rinse after steroid. Test performed by Sameer LOCOMOTIVE CRANE OPERATOR HELPER CPFT Pleural plaque due to asbestos exposure Restrictive lung disease Overview: In Check dial performed to assess inhaler technique: 12/15/19 Name of inhalers Albuterol Pass: Yes at 60 L/min and Advair Pass: Yes at 60 L/min. Encouraged to to take deep breath, use aero chamber, and rinse after steroid. 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 09/29/2020 Overview: Per CKD protocol documented as of this encounter (statuses as of 01/21/2024) Immunizations Name Administration Dates Next Due COVID-19 mRNA, LNP-s, No Pre serve, 2-Dose Series (Cartasite) 12/01/2021,01/16/2021,12/26/2020 COVID-19, LNP-s, No Preserve , Ozzy-sucrose, Ages 12+ (Cartasite) 12/01/2021 COVID-19, MRNA-LNP, 23-24, P F, 30 MCG/0.3 mL, 12 YRS AND ABOVE, IM ([facility]) 09/18/2023 Covid-19, Mrna, Lnp-s, Pf, B ivalent, 30 Mcg, IM, 12 yrs and above (Cartasite) 10/09/2022 Pneumococcal Conjugate Vacc, 13 Valent (Prevnar) 06/23/2015 Pneumococcal Polysaccharide PPV23 (Pneumovax) 05/14/2013,04/18/2004 Seasonal Influenza, PF, 6 M & above, IM , (FluLaval or Fluzone) 09/29/2018 Seasonal Influenza, Quadriva lent Hd (Fluzone Hd) 07/31/2023,10/09/2022,08/17/2021 Seasonal Influenza, Quadriva lent, No Preserve, IM 09/24/2017,09/22/2016,09/12/2015 Seasonal Influenza, Recombin ant, RIV4, PF, (Flublock) 08/15/2020 Seasonal Influenza, Split, I IV3, With Preserve, Inj 08/26/2014,09/09/2013,08/15/2012,09/20,08/02/2010,08/31/2009,08/20/2008 ,08/19/2007,08/20/2006,08/22/2005,08/18,09/14/2003 Seasonal Influenza, Trivalen t, Adjuvanted, 65+ yrs [...] encounter Miscellaneous Notes * Telephone Encounter - Gianfranco Richards CPhT - 01/21/2024 12:51 PM EST Submitted information in previous note via CMM (Ureña: [id number] ).. Awaiting payer response. We will follow-up with insurance starting 01/22. Per [facility] request, if no decision is received from insurance by 01/26, we will route back to the [facility] after clarifying with the pharmacy that the claim is still not processing. Thank you, Yaw Richards ([facility]) Prop Cutter III [facility] ([facility] (formerly [facility]) 01/21/2024, 12:51 PM * Telephone Encounter - Edwige Longoria [facility] - 01/21/2024 11:17 AM EST Please submit PA. Include the following documentation: 09/18/23 OV note Please copy and paste the following information into PA form: Previously approved, 11/17/23 Pt stable on therapy since 2015 What other drugs is there medical record documentation of therapeutic failure on, intolerance to, or contraindication to for this condition? N/A Chas as urgent: No Diagnosis/ICD-10 Code(s): K22.70 If instantaneous decision is not received after submitting prior auth, please continue to follow upon this and route back to the [facility] pool if no decision is made by the insurance by 01/26, after clarifying with the pharmacy that the claim is still not processing. If PA is denied, please also route back to [facility] pool. Thanks, Edwige Longoria, PharmD Clinical Pharmacist [facility] ([facility]) (formerly [employer]) [phone] 01/21/2024 11:18 AM * Telephone Encounter - Gianfranco Richards CPhT - 01/21/2024 7:40 AM EST Images from the original note were not included. This is a new PA request. Upon review of this prior authorization request, I verified this request is appropriate. This is prescribed by a department for which [facility] is authorized to review prior authorizations This is not a duplicate encounter regarding the same prior authorization The patient is planning to use insurance The insurance information listed in previous note is correct and the plan that is requiring prior authorization The insurance does not cover either brand or generic forms of this script as written without prior authorization The insurance does not cover any NDCs of this script without prior authorization RX Estimate tool confirms this script needs prior authorization Of note, there is nothing currently pending in [facility] for this request. Please advise how to proceed. Thank you, Yaw Richards (rougher helper) Prop Cutter III [facility] ([facility] (formerly [facility]) 01/21/2024, 7:40 AM * Telephone Encounter - Gianfranco Richards CPhT - 01/21/2024 7:40 AM EST Pt's current insurance information is as follows: Patient name: Patrick Robles ID number: [id number] BIN number: [id number] PCN number: [id number] Group number: [id number] Subscriber name: Patrick Robles Primary or Secondary Insurance:Primary Medication: Esomeprazole 40mg Reason for Request: Qty limit Pharmacy and phone number: [id number] Rx plan and phone number: [employer] medicare Thank you, Yaw Richards ([facility]) Prop Cutter III [facility] ([facility] (formerly [facility]) 01/21/2024, 7:40 AM * Telephone Encounter - Lul Boone [facility] - 01/20/2024 12:14 PM EST Pending Prescriptions: Disp Refills Esomeprazole Magnesium 40 MG Oral Capsule *180 Ca*1 Sig: Take 1 Capsule by mouth in the morning and 1 Capsule before bedtime. * Telephone Encounter - Lul Boone [facility] - 01/20/2024 12:10 PM EST Bid dosing requires pa. Thank you, Eldon Boone, PharmD Clinical Pharmacist [facility] ([facility]) 01/20/24 12:13 PM [phone] documented in this encounter Plan of Treatment Upcoming Encounters Date Type Department Care Team (Latest Contact Info) Description 01/21/2024 2:00 PM EST Office Visit Family [address] [phone] Bell Mcqueen MD [address] [place] [address] [place] [address] Mild persistent asthma with exacerbation*; Acute cough 01/22/2024 9:30 AM EST Immunization/Injection Hematology/Oncolo gy Treatment, [place] [address] [place] [phone] Nurse, Med 4 [facility] [place] [address] 01/28/2024 9:10 AM EDT Laboratory Laboratory [address] [place] [phone] [place], [address] [place] [address] 01/29/2024 10:30 AM EDT Immunization/Injection Hematology/Oncolo gy Treatment, [place] [facility] [phone] Nurse, Med 4 [address] [place] [address] 02/03/2024 9:50 AM EDT Office Visit Ophthalmology, [facility] 132 [facility] [place] [address] Pablo Casanova T, DO 16 [place] [address] 02/04/2024 6:30 AM EDT Anticoagulation Pharmacy Call Center [address] [place] [address] C[facility]ps, [facility] 58 60 [facility] [place] [address] 02/06/2024 10:30 AM EDT Office Visit Cardiology, [facility] [address] [facility] [address] Andres Rainey MD 132 [facility] [place] [address] 02/11/2024 9:40 AM EDT Office Visit Family Medicine [address] [place] [phone] Bell Mcqueen MD [address] [place] [address] [place] [address] 02/19/2024 11:00 AM EDT Immunization/Injection Hematology/Oncolo gy [facility], [place] [facility] [phone] Nurse, Med [facility] [place] [address] 05/13/2024 11:00 AM EDT Office Visit Hematology/Oncolo gy [facility] [place] [address] Ludwig Louis MD [address] [place] [address] 08/10/2024 1:40 PM EDT Office Visit Rheumatology [address] [place] [phone] Win Nielsen MD [facility] [place] [address] Scheduled Procedures Name Priority Associated Diagnoses Date/Ti me ESOPHAGOGASTRODUODENOSCOPY ( EGD), FLEXIBLE, TRANSORAL, DIAGNOSTIC Recall Stark's esophagus with dysplasia Health Maintenance Due Date Last Done Comments Depression Screening 07/12/2021 07/12/2020 CKD PHOS USE SMARTSET 13560 08/21/2022 10/0 02/2021, 07/12/2020, 03/13/2019, Additional history exists *BISPHONATE OR OTHER ACCEPTABLE MEDICATION NEEDED FOR OSTEOPOROSIS (REFER TO SMARTSET #1146) 10/14/2023 Albumin/Creatinine Ratio 04/22/2024 023, 05/24/2022, 03/26/2022, Additional history exists TSH 10/08/2024 10/08/2023, 10/0 01/2023, 06/19/2023, Additional history exists CKD HGB USE SMARTSET 82585 01/14/202501/14, 01/14/2024, 01/07/2024, Additional history exists Stark's Esophagus Surveilance 02/26/2025 02/26/2022, 02/26/2022, 07/04/2021, Additional history exists DXA Scan 07/05/2025 07/05/2023, 10/19, 11/04/2018, Additional history exists DTaP,Tdap,and Td Vaccines (2 - Td or Tdap) 08/19/2027 08/19/2017, 08/20/2008 Pneumococcal Vaccine: 65+ Years Completed 06/23/2015, 05/14/2013, 04/18/2004 Zoster Vaccines Completed 12/02/2020, 08/15/2020 VITAMIN D LEVEL ONCE IN A LIFETIME-USE SMARTSET# 55411 Completed 04/22/2023, 08/28/2021, 07/14/2015 Influenza Vaccine (FLU [...] this encounter Medical Devices Implanted Type Area Assembly Riveter Device Identifier Shelf Expiration Date Model / Serial / Lot Power Port 8fr Sngl Lumen Plas - [id number] Implanted:Qty: 1 on 02/22/2022 at [facility] CR BARD : PERIPHERAL VASCULAR [id number] 02/15/2023 [id number] / / [id number] documented as of this encounter Visit Diagnoses Diagnosis 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 Mild persistent asthma with exacerbation- Primary Unspecified asthma, with exacerbation Acute cough documented in this encounter Advance Directives Latest Code Status on File Code Status Date Activated Date Inactivated Comments Full Code 09/03/2007 7:29 AM 09/03/2007 4:02 PM Care Teams Certified Orthotist Practice Manager Relationship Specialty Start Date End Date Juancho Romero MD [address] [place] [address] [place] [address] PCP - General Family Medicine 12/27/16 01/19/24 documented as of this encounter
--- OUTSIDE RECORDS SUMMARY | 2024-01-23 20:52 | External Medical Summary | Summary of Care ---
Author Name Unknown Organization [facility] Address [address] [place] [address] Phone [phone] Care Team Providers Care Flower Stripper Name Role Phone Juancho Romero MD Primary Care Provider [phone] Reason for Visit * Reason Onset Date Comments Medication Refill 01/18/2024 Encounter Details Date Type Department Care Team (Late st Contact Info) Description 01/18/2024 Telephone Family Medicine [address] [phone] Juancho Romero MD [address] [place] [address] [place] [address] Medication Refill Allergies Active Allergy Reactions [...] albuterol 120 mL 5 11/21/2022 Active Ipratropium [place] 0.02 % Inhalation Solution (Atrovent)Indicati ons:Moderate persistent [...] Respimat 2.5 MCG/ACT Inhalation Aerosol Solution (Tiotropium [place] Monohydrate)Indica tions:Moderate persistent asthma without complication INHALE 2 PUFFS BY MOUTH EVERY DAY 12 g 3 04/30/2023 Active Warfarin Sodium 5 MG Oral Tablet (Coumadin)Indicati ons:Pulmonary embolism and infarction (HCC) Take 0.5-1 Tablets by mouth every evening. Or take as instructed by the [facility] 90 Tablet 3 [...] rinse after steroid. Test performed by Sameer POLICY WRITER SALES CPFT Pleural plaque due to asbestos exposure Restrictive lung disease Overview: In Check dial performed to assess inhaler technique: 12/15/19 Name of inhalers Albuterol Pass: Yes at 60 L/min and Advair Pass: Yes at 60 L/min. Encouraged to to take deep breath, use aero chamber, and rinse after steroid. Test performed by Sameer POLICY WRITER SALES CPFT Hx of pulmonary embolus 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 Overview: [place] C0-M6 documented as of this encounter (statuses [...] Malignant neoplasm of prostate 09/23/2008 03/27/2018 Overview: [place] grade 3 Atrial flutter 09/02/2007 10/16/2007 Herpes simplex virus infection 08/22/2005 04/05/2016 Anal fissure 06/04/2005 10/16/2007 retirement current use of ant icoagulant therapy 05/30/2005 [...] mRNA, LNP-s, No Pre serve, 2-Dose Series (Xunlei) 12/01/2021,01/16/2021,12/26/2020 COVID-19, LNP-s, No Preserve , Ozzy-sucrose, Ages 12+ (Xunlei) 12/01/2021 COVID-19, MRNA-LNP, 23-24, P F, 30 MCG/0.3 mL, 12 YRS AND ABOVE, IM ([facility]) 09/18/2023 Covid-19, Mrna, Lnp-s, Pf, B ivalent, 30 Mcg, IM, 12 yrs and above (Xunlei) 10/09/2022 Pneumococcal Conjugate Vacc, 13 Valent (Prevnar) [...] encounter Miscellaneous Notes * [facility] 11:17 AM EST Please [...] upon this and route back to the [facility] if no decision is made by the insurance by 01/26, after clarifying with the pharmacy that the claim is still not processing. If PA is denied, please also route back to [facility]. Thanks, Edwige Longoria, PharmD Clinical Pharmacist Centralized Clinical Pharmacy Services (CCPS) (formerly Telepharmacy) [phone] 01/21/2024 11:18 AM * Telephone Encounter - Gianfranco Richards CPhT - 01/21/2024 7:40 AM EST Images from the original note were not included. This is a new PA request. Upon review of this prior authorization request, I verified this request is appropriate. This is prescribed by a department for which [facility] is authorized to review prior authorizations This [...] note, there is nothing currently pending in Center for this request. Please advise how to proceed. Thank you, Yaw Berman) [employer] Cake Decorator III Centralized Clincal Pharmacy Services (CCPS) (formerly Telepharmacy) 01/21/2024, 7:40 AM * Telephone Encounter - Gianfranco Richards CPhT - 01/21/2024 7:40 AM EST Pt's current insurance information is as follows: Patient name: Patrick Robles ID number: [id number] BIN number: [id number] PCN number: [id number] Group number: [id number] Subscriber name: Patrick Robles Primary or Secondary Insurance:Primary Medication: Esomeprazole 40mg Reason for Request: Qty limit Pharmacy and phone number: [id number] [id number] [facility] Rx plan and phone number: [employer] medicare Thank you, Yaw Berman) [employer] Cake Decorator III Centralized Clin[facility] Pharmacy Services (CCPS) (formerly Telepharmacy) 01/21/2024, 7:40 AM * Telephone Encounter - Lul Boone [facility] - 01/20/2024 12:14 PM EST Pending Prescriptions: Disp Refills Esomeprazole Magnesium 40 MG Oral Capsule *180 Ca*1 Sig: Take 1 Capsule by mouth in the morning and 1 Capsule before bedtime. * Telephone Encounter - Lul Boone [facility] - 01/20/2024 12:10 PM EST Bid dosing requires pa. Thank you, Eldon Boone, PharmD Clinical Pharmacist Centralized Clinical Pharmacy Services (CCPS) 01/20/24 12:13 PM [phone] documented in this encounter Plan of Treatment Upcoming Encounters Date Type Department Care Team (Latest Contact Info) Description 01/21/2024 2:00 PM EST Office Visit Family Medicine [address] [phone] Bell Mcqueen MD [address] [place] [address] [place] [address] Mild persistent asthma with exacerbation*; Acute cough 01/22/2024 9:30 AM EST Immunization/Injection Hematology/Oncolo [facility], [place] [facility] [phone] [facility] [address] 01/28/2024 9:10 AM EDT Laboratory Laboratory [address] [place] [phone] [address] [place] [address] 01/29/2024 10:30 AM EDT Immunization/Injection Hematology/Oncolo gy Treatment, [place] [facility] [phone] Nurse, Med 4 200 [facility] [place] [address] 02/03/2024 9:50 AM EDT Office Visit Ophthalmology, [facility] 132 [facility] [place] [address] Pablo Casanova T, DO [address] [place] [address] 02/04/2024 6:30 AM EDT Anticoagulation Pharmacy Call Center [address] [place] [address] Ccps, [facility] 58 [address] [place] [address] 02/06/2024 10:30 AM EDT Office Visit Cardiology, [facility] 132 [facility] [place] [address] Andres Rainey [facility] [place] [address] 02/11/2024 9:40 AM EDT Office Visit Family [address] [place] [phone] Bell Mcqueen MD [address] [place] [address] [place] [address] 02/19/2024 11:00 AM EDT Immunization/Injection Hematology/Oncolo gy Treatment, [place] 200 [facility] [place] [phone] Nurse, Med 4 [address] [place] [address] 05/13/2024 11:00 AM EDT Office Visit Hematology/Oncolo gy Dony Hicmkan [place] [address] [place], [place] [address] Ludwig Louis MD [address] [place], [place] [address] 08/10/2024 1:40 PM EDT Office Visit Rheumatology [address] [place] [phone] Win Nielsen MD [address] [facility] [place], [place] [address] Scheduled Procedures Name Priority Associated Diagnoses Date/Ti me ESOPHAGOGASTRODUODENOSCOPY ( EGD), FLEXIBLE, TRANSORAL, DIAGNOSTIC Recall Stark's esophagus with dysplasia Health Maintenance Due Date Last Done Comments Depression Screening 07/12/2021 07/12/2020 CKD PHOS USE SMARTSET 68860 08/21/20220 02/2021, 07/12/2020, 03/13/2019, Additional history exists *BISPHONATE OR OTHER ACCEPTABLE MEDICATION NEEDED FOR OSTEOPOROSIS (REFER TO SMARTSET #1146) 10/14/2023 Albumin/Creatinine Ratio 04/22/2024 023, 05/24/2022, 03/26/2022, Additional history exists TSH 10/08/2024 10/08/2023, 1001/2023, 06/19/2023, Additional history exists CKD HGB USE SMARTSET 55442 01/14/202501/14, 01/14/2024, 01/07/2024, Additional history exists Stark's Esophagus Surveilance 02/26/2025 02/26/2022, 02/26/2022, 07/04/2021, Additional history exists DXA Scan 07/05/2025 07/05/2023, 10/19, 11/04/2018, Additional history exists DTaP,Tdap,and Td Vaccines (2 - Td or Tdap) 08/19/2027 08/19/2017, 08/20/2008 Pneumococcal Vaccine: 65+ Years Completed 06/23/2015, 05/14/2013, 04/18/2004 Zoster Vaccines Completed 12/02/2020, 08/15/2020 VITAMIN D LEVEL ONCE IN A LIFETIME-USE SMARTSET# 51237 Completed 04/22/2023, 08/28/2021, 07/14/2015 Influenza Vaccine (FLU [...] this encounter Medical Devices Implanted Type Area Control Room Helper Device Identifier Shelf Expiration Date Model / Serial / Lot Power Port 8fr Sngl Lumen Plas - [id number] Implanted:Qty: 1 on 02/22/2022 at [facility] CR BARD : PERIPHERAL VASCULAR [id number] 02/15/2023 [id number] / / [id number] documented as of this encounter Visit Diagnoses Diagnosis 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 Mild persistent asthma with exacerbation- Primary Unspecified asthma, with exacerbation Acute cough documented in this encounter Advance Directives Latest Code Status on File Code Status Date Activated Date Inactivated Comments Full Code 09/03/2007 7:29 AM 09/03/2007 4:02 PM Care Teams Flower Stripper Relationship Specialty Start Date End Date Juancho Romero MD [address] [place] [address] [place] [address] PCP - General Family Medicine 12/27/16 01/19/24 documented as of this encounter
--- OUTSIDE RECORDS SUMMARY | 2024-01-23 20:53 | External Medical Summary | Summary of Care ---
Author Name Unknown Organization [facility] Address [address] [place] [address] Phone [phone] Care Team Providers Care Rail Express Clerk Name Role Phone Unavailable Primary Care Provider Unavailabl e Reason for Visit * Reason Comments Dosage Adjustment Via Phone (anticoag Cl inic) Encounter Details Date Type Department Care Team (Latest Contact Info) Description 01/21/2024 6:30 AM EST Anticoagulation Pharmacy Call Center 58[address] [facility] [place] [address] [facility], [facility] 58 [address] [facility] [place] [address] Hx of pulmonary embolus*; Longstanding persistent atrial fibrillation (HCC) Allergies Active Allergy Reactions Criticality Noted [...] albuterol 120 mL 5 11/21/2022 Active Ipratropium [place] 0.02 % Inhalation Solution (Atrovent)Indicatio ns:Moderate persistent asthma without complication Inhale 2.5 mL via nebulizer in the morning and 2.5 mL at noon and 2.5 mL in the evening and 2.5 mL before bedtime. Mix with albuterol solution. 75 mL 12 11/21/2022 Active traMADol HCl 50 MG Oral Tablet (Ultram)Indications :Spinal stenosis of lumbar region without neurogenic claudication Take 1 Tablet by mouth every 6 hours as needed for Pain, Severe. 60 Tablet 0 04/08/2023 Active Ferrous Sulfate 325 (65 Fe) MG Oral Tablet (Feosol)Indications :Iron deficiency anemia secondary to blood loss (chronic) TAKE ONE TABLET BY MOUTH WITH FOOD DAILY 90 Tablet 3 04/18/2023 Active Spiriva Respimat 2.5 MCG/ACT Inhalation Aerosol Solution (Tiotropium [place] Monohydrate)Indicat ions:Moderate persistent asthma without complication INHALE 2 PUFFS BY MOUTH EVERY DAY 12 g 3 04/30/2023 Active Warfarin Sodium 5 MG Oral Tablet (Coumadin)Indicatio ns:Pulmonary embolism and infarction (HCC) Take 0.5-1 Tablets by mouth every evening. Or take as instructed by the [facility] 90 Tablet 3 08/09/2023 [...] BREAKFAST/OTHER MEDS 90 Tablet 0 01/06/2024 Active documented as of this encounter (statuses [...] rinse after steroid. Test performed by Sameer REVERSE LOGISTICS ANALYST CPFT Pleural plaque due to asbestos exposure Restrictive lung disease Overview: In Check dial performed to assess inhaler technique: 12/15/19 Name of inhalers Albuterol Pass: Yes at 60 L/min and Advair Pass: Yes at 60 L/min. Encouraged to to take deep breath, use aero chamber, and rinse after steroid. 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 use of ant icoagulant therapy 05/30/2005 [...] mRNA, LNP-s, No Pre serve, 2-Dose Series ([employer]) 12/01/2021,01/16/2021,12/26/2020 COVID-19, LNP-s, No Preserve , Ozzy-sucrose, Ages 12+ ([employer]) 12/01/2021 COVID-19, MRNA-LNP, 23-24, P F, 30 MCG/0.3 mL, 12 YRS AND ABOVE, IM ([facility]) 09/18/2023 Covid-19, Mrna, Lnp-s, Pf, B ivalent, 30 Mcg, IM, 12 yrs and above ([employer]) 10/09/2022 Pneumococcal Conjugate Vacc, 13 Valent (Prevnar) [...] on file documented as of this encounter Progress Notes * Sheela Baugh RPh - 01/21/2024 10:05 AM EST Noted - thank you; no changes to warfarin dosing/monitoring plan at this time. Agree with recommendation that patient should contact [facility] for abx prescribed. Thanks, Sheela Baugh, PharmD Clinical Pharmacist Centralized Clinical Pharmacy Services (CCPS) (Formerly Telepharmacy) [phone] 01/21/2024 10:05 AM * Teddy Garcia CPhT - 01/21/2024 10:01 AM EST Contacts Type Contact Phone/Fax 01/21/2024 09:57 AM EST Phone (Outgoing) MRAIANA CARMEN (Emergency Contact) [phone] spoke with Mariana Subjective Patient Findings Positives: Change in health (cold symptoms, bronchitis; seeing PCP today) Negatives: Signs/symptoms of thrombosis, Signs/symptoms of bleeding, Change in alcohol use, Change in activity, Upcoming invasive procedure, Missed doses, Extra doses, Change in medications, Change in diet/appetite, Bruising Comments: Advised to contact [facility] if prescribed an antibiotic today at PCP visit. Advised patient to contact Anticoagulation Clinic if any unusual bruising or bleeding, recent illness, changes in medication, or questions/concerns. PT/INR results, Coumadin dose instructions, and next PT/INR date communicated as noted by Pharmacist: Yes Teddy Garcia CPhT 01/21/2024, 10:01 AM * Sheela Baugh RPh - 01/21/2024 8:41 AM EST Images from the original note were not included. Coumadin Clinic (region specific) Objective Current Warfarin Dose As of 01/21/2024 Warfarin maintenance plan: 2.5 mg (5 mg x 0.5) every day INR Result As of 01/21/2024 INR goal: 2.0-3.0 INR used for dosin.9 (01/20/2024) Assessment & Plan Warfarin Plan As of 01/21/2024 Full warfarin instructions: 3: Hold; Otherwise 2.5 mg every day Next INR check: 02/03/2024 Repeat PT/INR in 2 week(s) Weekly dose: not changed Additional Dosing Information: Description Home four corner stayer machine operator to contact patient with dose instructions as noted. Sheela Baugh RPh 01/21/2024, 8:41 AM documented in this encounter Plan of Treatment Upcoming Encounters Date Type Department Care Team (Late st Contact Info) Description 01/21/2024 2:00 PM EST Office Visit Family Medicine [address] [phone] Bell Mcqueen MD [address] [place] [address] [place] [address] 01/22/2024 9:30 AM EST Immunization/Injection Hematology/Oncology Treatment, [place] [facility] [phone] Nurse, Med [facility] [address] 01/28/2024 9:10 AM EDT Laboratory Laboratory [address] [place] [phone] [place] [address] 01/29/2024 10:30 AM EDT Immunization/Injection Hematology/[address]cology Treatment, [address] [phone] Nurse, [address] [place] [address] 02/03/2024 9:50 AM EDT Office Visit Ophthalmology, [facility] 132 [facility] [place] [address] Pablo Casanova T, [address] [address] 02/04/2024 6:30 AM EDT Anticoagulation Pharmacy Call Center WB [address] [place] [address] C[address], [facility] [address] [place] [address] 02/06/2024 10:30 AM EDT Office Visit Cardiology, [facility] 132 [facility] [place] [address] Andres Rainey MD 132 [facility] [place] [address] 02/11/2024 9:40 AM EDT Office Visit Family Medicine [address] [place] [phone] Bell Mcqueen MD [address] [place] [address] [place] [address] 02/19/2024 11:00 AM EDT Immunization/Injection Hematology/Oncology Treatment, [address] [place] [phone] Nurse, Med 4 200 [facility] [place] [address] 05/13/2024 11:00 AM EDT Office Visit Hematology/Oncology [facility] [address] [place] [phone] Ludwig Louis MD [address] [place] [address] 08/10/2024 1:40 PM EDT Office Visit Rheumatology [address] [place] [phone] Win Nielsen MD [address] [facility] [address] [place], [place] [address] Scheduled Procedures Name Priority Associated Diagnoses Date/Ti me ESOPHAGOGASTRODUODENOSCOPY ( EGD), FLEXIBLE, TRANSORAL, DIAGNOSTIC Recall Stark's esophagus with dysplasia Health Maintenance Due Date Last Done Comments Depression Screening 07/12/2021 07/12/2020 CKD PHOS USE SMARTSET 14850 08/21/20220 02/2021, 07/12/2020, 03/13/2019, Additional history exists *BISPHONATE OR OTHER ACCEPTABLE MEDICATION NEEDED FOR OSTEOPOROSIS (REFER TO SMARTSET #1146) 10/14/2023 Albumin/Creatinine Ratio 04/22/2024 023, 05/24/2022, 03/26/2022, Additional history exists TSH 10/08/2024 10/08/2023, 100 01/2023, 06/19/2023, Additional history exists CKD HGB USE SMARTSET 15942 01/14/202501/14, 01/14/2024, 01/07/2024, Additional history exists Stark's Esophagus Surveilance 02/26/2025 02/26/2022, 02/26/2022, 07/04/2021, Additional history exists DXA Scan 07/05/2025 07/05/2023, 10/19, 11/04/2018, Additional history exists DTaP,Tdap,and Td Vaccines (2 - Td or Tdap) 08/19/2027 08/19/2017, 08/20/2008 Pneumococcal Vaccine: 65+ Years Completed 06/23/2015, 05/14/2013, 04/18/2004 Zoster Vaccines Completed 12/02/2020, 08/15/2020 VITAMIN D LEVEL ONCE IN A LIFETIME-USE SMARTSET# [id number] Completed 04/22/2023, 08/28/2021, 07/14/2015 Influenza Vaccine (FLU [...] this encounter Medical Devices Implanted Type Area Trimmer Buffing Wheel Device Identifier Shelf Expiration Date Model / Serial / Lot Power Port 8fr Sngl Lumen Plas - [id number] Implanted:Qty: 1 on 02/22/[address] [facility] CR BARD : PERIPHERAL VASCULAR [id number] 02/15/2023 [id number] / / [id number] documented as of this encounter Procedures Procedure Name Priority Date/Time Associated Diagnosis Comments OUTSIDE LAB-PT/INR Routine 01/20/2024 documented in this encounter Results * OUTSIDE LAB-PT/INR (01/20/2024) INR-OUTSIDE LAB 3.9 History Per Patient LABORATORY documented in this encounter Visit Diagnoses Diagnosis Hx of pulmonary embolus- Primary Personal history of pulmonary embolism Longstanding persistent atrial fibrillation (HCC) documented in this encounter Advance Directives Latest Code Status on File Code Status Date Activated Date Inactivated Comments Full Code 09/03/2007 7:29 AM 09/03/2007 4:02 PM
--- OUTSIDE RECORDS SUMMARY | 2024-01-23 20:53 | External Medical Summary ---
Author Name Unknown Address Unknown Organization K01:LABORATORY [facility] [address] [facility] [address] Laboratory Report Ordering Provider Test Date Status JACQUES PALUMBO 01/21/2024 10:51:00 Suly l Observation Date Value Abnormality Reference (Units ) Status SARS Coronavirus 2 01/21/2024 10:51:00 Negative N egative Final No SARS-CoV2 Coronavirus RNA detected by PCR (amplified probe).
This automated test was developed and its performance characteristics determined by [facility]. It has not been cleared or approved by the U.S. Food and Drug Administration (FDA). FDA does not require this test to go thru premarket FDA review. This test is used for clinical purposes. It should not be regarded as investigational or for research. This laboratory is certified under the Clinical Laboratory Improvement Amendments (CLIA) as qualified to perform high complexity clinical laboratory testing.

This test is a nucleic acid amplification test (NAAT), a reverse transcriptase polymerase chain reaction (RT-PCR) test, or a Centers for Disease Control-acceptable equivalent. The test is performed in a high complexity Clinical Laboratory Improvement Amendments-(CLIA) certified laboratory. The test is acceptable for SARS-CoV-2 diagnosis, surveillance, and travel within the [place] and to most countries. Please check with local testing authorities about requirements before travel.

The validation of bronchial specimens, tracheal aspirates, and sputum for this assay was developed and performance characteristics determined by [facility]. The validation of alternate specimen types has not been cleared or approved by the U.S. Food and Drug Administration (FDA). It has been determined that such clearance or approval is not necessary. Influenza virus A RNA [Prese nce] in Specimen by EVELIO with probe detection 01/21/2024 10:51:00 Negative Negative Final No Influenza A RNA detected by PCR (amplified probe) Influenza virus B RNA [Prese nce] in Specimen by EVELIO with probe detection 01/21/2024 10:51:00 Negative Negative Final No Influenza B RNA detected by PCR (amplified probe) Respiratory syncytial virus RNA [Identifier] in Specimen by EVELIO with probe detection 01/21/2024 10:51:00 Positive Abnormal Negative Final Respiratory Syncytial Virus RNA detected by PCR (amplified probe). Test results reported to [facility]. Performing Location [facility]ORY [facility] [place] [address] [facility] [address]
--- OUTSIDE RECORDS SUMMARY | 2024-01-23 20:53 | External Medical Summary ---
Author Name Unknown Address Unknown Organization K01:[facility] [place] [address] [place] [address] Laboratory Report Ordering Provider Test Date Status ADRIENNE SALCIDO 01/21/2024 10:59:51 Final Observation Date Value Abnormality Reference (Units ) Status TSH 01/21/2024 10:59:51 4.13 0.27-4.20 (uIU/mL) Final Performing Location [facility] [place] [address] [place] [address]
--- OUTSIDE RECORDS SUMMARY | 2024-01-23 20:53 | External Medical Summary ---
Author Name Unknown Address Unknown Organization [id number]:LABORATORY [facility] [place] - [address] [place] [address] Laboratory Report Ordering Provider Test Date Status ADRIENNE SALCIDO 01/21/2024 10:59:51 Final Observation Date Value Abnormality Reference (Units ) Status WBC, Total 01/21/2024 10:59:51 3.97 Below low normal 4.00-10.80 (K/uL) Final RBC 01/21/2024 10:59:51 3.38 4.50-5.25 (M/uL) Final Hemoglobin 01/21/2024 10:59:51 9.7 Below low normal 14.0-16.8 (g/dL) Final HCT 01/21/2024 10:59:51 34.3 Below low normal 40.0-48.4 (%) Final MCV 01/21/2024 10:59:51 101.5 82.0-99.5 (fL) Final MCH 01/21/2024 10:59:51 28.7 27.0-34.0 (pg) Final MCHC 01/21/2024 10:59:51 28.3 32.0-36.0 (g/dL) Final RDW 01/21/2024 10:59:51 17.4 11.5-15.5 (%) Final Platelets 01/21/2024 10:59:51 104 Below low normal 140-400 (K/uL) Final MPV 01/21/2024 10:59:51 12.2 6.6-11.1 (fL) Final Nucleated erythrocytes/100 leukocytes [Ratio] in Blood by Automated count 01/21/2024 10:59:51 0 <=0 (/100 WBCs) Final Performing Location LABORATORY [facility] [place] - [address] [place] [address]
--- OUTSIDE RECORDS SUMMARY | 2024-01-23 20:53 | External Medical Summary | Summary of Care ---
Author Name Unknown Organization [facility] Address [address] [place] [address] Phone [phone] Care Team Providers Care Magnetometer Operator Name Role Phone Unavailable Primary Care Provider Unavailabl e Encounter Details Date Type Department Care Team (Late st Contact Info) Description 01/20/2024 Result Scan Unspecified Department <No scans attached> Allergies Active Allergy Reactions Criticality Noted Date [...] albuterol 120 mL 5 11/21/2022 Active Ipratropium [place] 0.02 % Inhalation Solution (Atrovent)Indicatio ns:Moderate persistent [...] Respimat 2.5 MCG/ACT Inhalation Aerosol Solution (Tiotropium [place] Monohydrate)Indicat ions:Moderate persistent asthma without complication INHALE 2 PUFFS BY MOUTH EVERY DAY 12 g 3 04/30/2023 Active Warfarin Sodium 5 MG Oral Tablet (Coumadin)Indicatio ns:Pulmonary embolism and infarction (HCC) Take 0.5-1 Tablets by mouth every evening. Or take as instructed by the [facility] 90 Tablet 3 08/09/2023 Active [...] rinse after steroid. 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 Encouraged to to take deep breath, use aero chamber, and rinse after steroid. Test performed by Sameer CRACKLING PRESS OPERATOR CPFT Hx of pulmonary embolus 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 Overview: [place] C0-M6 documented as of this encounter (statuses [...] Malignant neoplasm of prostate 09/23/2008 03/27/2018 Overview: Foster grade 3 Atrial flutter 09/02/2007 10/16/2007 Herpes simplex virus infection 08/22/2005 04/05/2016 Anal fissure 06/04/2005 10/16/2007 FPC current use of ant icoagulant therapy 05/30/2005 [...] mRNA, LNP-s, No Pre serve, 2-Dose Series (Gucash) 12/01/2021,01/16/2021,12/26/2020 COVID-19, LNP-s, No Preserve , Ozzy-sucrose, Ages 12+ (Pfizer) 12/01/2021 COVID-19, MRNA-LNP, 23-24, P F, 30 MCG/0.3 mL, 12 YRS AND ABOVE, IM (Pinoccio-Comirnat) 09/18/2023 Covid-19, Mrna, Lnp-s, Pf, B ivalent, 30 Mcg, IM, 12 yrs and above (Gucash) 10/09/2022 Pneumococcal Conjugate Vacc, 13 Valent (Prevnar) [...] Description 01/21/2024 9:00 AM EST Laboratory Laboratory [address] [place] [phone] [place] [address] 01/21/2024 2:00 PM EST Office Visit Family Medicine [address] [place] [phone] Bell Mcqueen MD [address] [place] [address] [place] [address] 01/22/2024 9:30 AM EST Immunization/Injecti on Hematology/Oncology Treatment, [place] 200 [facility] [place] [phone] Nurse, Med 4 200 [facility] [place] [address] 01/28/2024 9:10 AM EDT Laboratory Laboratory [address] [place] [address] [place] [address] 01/29/2024 10:30 AM EDT Immunization/Injecti on Hematology/Oncology Treatment, [place] [facility] [phone] Nurse, Med [address] [place] [address] 02/03/2024 9:50 AM EDT Office Visit Ophthalmology, [facility] [address] [facility] [place] [address] Pablo Casanova T, DO [address] [place] [address] 02/06/2024 10:30 AM EDT Office Visit Cardiology, [facility] [address] [facility] [place] [address] Andres Rainey MD 132 [facility] [place] [address] 02/11/2024 9:40 AM EDT Office Visit Family Medicine [address] [phone] Bell Mcqueen MD [address] [place] [address] [place] [address] 02/19/2024 11:00 AM EDT Immunization/Injecti on Hematology/Oncology Treatment, [place] 200 [facility] [place] [phone] Nurse, Med 4 200 [facility] [place] [address] 05/13/2024 11:00 AM EDT Office Visit Hematology/Oncology [facility] [place] 200 [facility] [place] [phone] Ludwig Louis MD 200 [facility] [place] [address] 08/10/2024 1:40 PM EDT Office Visit Rheumatology [address] [place] [phone] Win Nielsen MD [address] [place] [address] [place] [address] Scheduled Procedures Name Priority Associated Diagnoses Date/Ti me ESOPHAGOGASTRODUODENOSCOPY ( EGD), FLEXIBLE, TRANSORAL, DIAGNOSTIC Recall Stark's esophagus with dysplasia Health Maintenance Due Date Last Done Comments Depression Screening 07/12/2021 07/12/2020 CKD PHOS USE SMARTSET 35191 08/21/20220 02/2021, 07/12/2020, 03/13/2019, Additional history exists *BISPHONATE OR OTHER ACCEPTABLE MEDICATION NEEDED FOR OSTEOPOROSIS (REFER TO SMARTSET #1146) 10/14/2023 Albumin/Creatinine Ratio 04/22/2024 023, 05/24/2022, 03/26/2022, Additional history exists TSH 10/08/2024 10/08/2023, 01/2023, 06/19/2023, Additional history exists CKD HGB USE SMARTSET 96698 01/14/202501/14, 01/14/2024, 01/07/2024, Additional history exists Stark's Esophagus Surveilance 02/26/2025 02/26/2022, 02/26/2022, 07/04/2021, Additional history exists DXA Scan 07/05/2025 07/05/2023, 10/19, 11/04/2018, Additional history exists DTaP,Tdap,and Td Vaccines (2 - Td or Tdap) 08/19/2027 08/19/2017, 08/20/2008 Pneumococcal Vaccine: 65+ Years Completed 06/23/2015, 05/14/2013, 04/18/2004 Zoster Vaccines Completed 12/02/2020, 08/15/2020 VITAMIN D LEVEL ONCE IN A LIFETIME-USE SMARTSET# [id number] Completed 04/22/2023, 08/28/2021, 07/14/2015 Influenza Vaccine (FLU [...] this encounter Medical Devices Implanted Type Area Price Analyst Device Identifier Shelf Expiration Date Model / Serial / Lot Power Port 8fr Sngl Lumen Plas - [id number] Implanted:Qty: 1 on 02/22/2022 at [facility] : PERIPHERAL VASCULAR [id number] 02/15/2023 [id number] / / [id number] documented as of this encounter Procedures Procedure Name Priority Date/Time Associated Diagnosis Comments OUTSIDE LAB RESULTS 01/20/2024 documented in this encounter Results * OUTSIDE LAB RESULTS (01/20/2024) 01/20/2024 No Physician Data Unknown LABORATORY documented in this encounter Advance Directives Latest Code Status on File Code Status Date Activated Date Inactivated Comments Full Code 09/03/2007 7:29 AM 09/03/2007 4:02 PM
--- OUTSIDE RECORDS SUMMARY | 2024-01-23 20:53 | External Medical Summary ---
Author Name Unknown Address Unknown Organization K01:[facility] [place] [address] [place] [address] Laboratory Report Ordering Provider Test Date Status ADRIENNE SALCIDO 01/21/2024 10:59:51 Final Observation Date Value Abnormality Reference (Units ) Status Vitamin B12 01/21/2024 10:59:51 [phone] (pg/mL) Final Performing Location [facility] [place] [address] [place] [address]
--- OUTSIDE RECORDS SUMMARY | 2024-01-23 20:53 | External Medical Summary ---
Author Name Unknown Address Unknown Organization K01:[facility]ORY [facility] [place] - [address] [facility] [place] [address] Laboratory Report Ordering Provider Test Date Status ADRIENNE SALCIDO 01/21/2024 10:59:51 Final Observation Date Value Abnormality Reference (Units ) Status BUN 01/21/2024 10:59:51 32 Above high normal 6-20 (mg/dL) Final Creatinine 01/21/2024 10:59:51 1.5 Above high normal 0.6-1.2 (mg/dL) Final Glomerular filtration rate/1.73 sq M.predicted [Volume Rate/Area] in Serum, Plasma or Blood by Creatinine-based formula (CKD-EPI) 01/21/2024 10:59:51 44 Below low normal >=60 (mL/min) Final eGFR is calculated based on the CKD-EPI 2020 equation SODIUM 01/21/2024 10:59:51 137 135-146 (m mol/L) Final Potassium 01/21/2024 10:59:51 4.3 3.5-5.1 (m mol/L) Final Cl 01/21/2024 10:59:51 103 98-107 (mm ol/L) Final CO2 01/21/2024 10:59:51 23 22-32 (mmo l/L) Final Anion gap 01/21/2024 10:59:51 11 7-15 (mmol /L) Final Glucose 01/21/2024 10:59:51 100 70-120 (mg /dL) Final Albumin 01/21/2024 10:59:51 3.8 3.8-5.0 (g /dL) Final AST (Aspartate aminotransferase) 01/21/2024 10:59:51 24 10-50 (U/L) Fin al Alk Phos 01/21/2024 10:59:51 69 35-130 (U/ L) Final Bilirubin, Total 01/21/2024 10:59:51 1.0 <=1 .2 (mg/dL) Final Calcium 01/21/2024 10:59:51 8.6 8.4-10.2 ( mg/dL) Final Protein 01/21/2024 10:59:51 5.8 Below low normal 6.0 -8.3 (g/dL) Final ALT (Alanine aminotransferase) 01/21/2024 10:59:51 12 10-50 (U/L) Amador gomes Performing Location LAB[facility]ATORY [facility] [place] - [address] [facility] [address]
--- OUTSIDE RECORDS SUMMARY | 2024-01-23 20:53 | External Medical Summary ---
Author Name Unknown Address Unknown Organization K01:[facility]ATORY [facility] [place] [address] [place] [address] Laboratory Report Ordering Provider Test Date Status ADRIENNE SALCIDO 01/21/2024 10:59:51 Final Observation Date Value Abnormality Reference (Units ) Status Ferritin 01/21/2024 10:59:51 156 30-400 (ng /mL) Final Performing Location LABORATORY [facility] - [address] [place] [address]
--- OUTSIDE RECORDS SUMMARY | 2024-01-23 20:53 | External Medical Summary | Summary of Care ---
Author Name Unknown Organization [facility] Address [address] [place] [address] Phone [phone] Care Team Providers Care Range Rider Name Role Phone Juancho Romero MD Primary Care Provider Reason for Visit * Reason Onset Date Comments Medication Refill 01/18/2024 Encounter Details Date Type Department Care Team (Late st Contact Info) Description 01/18/2024 Telephone Family Medicine [address] [phone] Juancho Romero MD [address] [place] [address] [place] [address] Medication Refill Allergies Active Allergy Reactions [...] albuterol 120 mL 5 11/21/2022 Active Ipratropium [place] 0.02 % Inhalation Solution (Atrovent)Indicatio ns:Moderate persistent [...] Respimat 2.5 MCG/ACT Inhalation Aerosol Solution (Tiotropium [place] Monohydrate)Indicat ions:Moderate persistent asthma without complication INHALE 2 PUFFS BY MOUTH EVERY DAY 12 g 3 04/30/2023 Active Warfarin Sodium 5 MG Oral Tablet (Coumadin)Indicatio ns:Pulmonary embolism and infarction (HCC) Take 0.5-1 Tablets by mouth every evening. Or take as instructed by the [facility] 90 Tablet 3 08/09/2023 Active [...] rinse after steroid. Test performed by Sameer ADVANCED NURSING PROFESSOR CPFT Pleural plaque due to asbestos exposure Restrictive lung disease Overview: In Check dial performed to assess inhaler technique: 12/15/19 Name of inhalers Albuterol Pass: Yes at 60 L/min and Advair Pass: Yes at 60 L/min. Encouraged to to take deep breath, use aero chamber, and rinse after steroid. 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 Thank you, Yaw Richards (Matthew) Sheet Metal Technician III [facility] ([facility] (formerly [facility]) 01/21/2024, 7:40 AM * Telephone Encounter - Gianfranco Richards CPhT - 01/21/2024 7:40 AM EST Pt's current insurance information is as follows: Patient name: Patrick Robles ID number: [id number] BIN number: [id number] PCN number: [id number] Group number: [id number] Subscriber name: Patrick Robles Primary or Secondary Insurance:Primary Medication: Esomeprazole 40mg Reason for Request: Qty limit Pharmacy and phone number: [facility] #[id number] Rx plan and phone number: [employer] medicare Thank you, Yaw Richards ([facility]) Sheet Metal Technician III [facility] ([facility] (formerly Telepharm[facility]) 01/21/2024, 7:40 AM * Telephone Encounter - Lul Boone [facility] - 01/20/2024 12:14 PM EST Pending Prescriptions: Disp Refills Esomeprazole Magnesium 40 MG Oral Capsule *180 Ca*1 Sig: Take 1 Capsule by mouth in the morning and 1 Capsule before bedtime. * Telephone Encounter - Lul oBone [facility] - 01/20/2024 12:10 PM EST Bid dosing requires pa. Thank you, Eldon Boone, PharmD Clinical Pharmacist [facility] 01/20/24 12:13 PM [phone] documented in this encounter Plan of Treatment Upcoming Encounters Date Type Department Care Team (Late st Contact Info) Description 01/21/2024 9:00 AM EST Laboratory Laboratory [address] [place] [phone] [place] [address] 01/21/2024 2:00 PM EST Office Visit Family Medicine [address] [place] [phone] Bell Mcqueen MD [address] [place] [address] [place] [address] 01/22/2024 9:30 AM EST Immunization/Injecti on Hematology/Oncology Treatment, [address], [place] [phone] Nurse, Med 4 200 [facility] [place] [address] 01/28/2024 9:10 AM EDT Laboratory Laboratory [address] [place] [phone] [address] [place] [address] 01/29/2024 10:30 AM EDT Immunization/Injecti on Hematology/Oncology Treatment, [address], [place] [phone] Nurse, Med 4 200 [facility] [place] [address] 02/03/2024 9:50 AM EDT Office Visit Ophthalmology, [facility] [address] [facility] [place] [address] Pablo Casanova T, DO 16 [facility] [place] [address] 02/06/2024 10:30 AM EDT Office Visit Cardiology, [facility] 132 [facility] [place] [phone] Andres Rainey MD 132 [facility] [place] [address] 02/11/2024 9:40 AM EDT Office Visit Family Medicine [address] [place] [phone] Bell Mcqueen MD [address] [place] [address] [place] [address] 02/19/2024 11:00 AM EDT Immunization/Injecti on Hematology/Oncology Treatment, [place] [facility] [phone] Nurse, Med 200 [facility] [place] [address] 05/13/2024 11:00 AM EDT Office Visit Hematology/Oncology [facility] [address] [facility] [place] [address] Ludwig Louis MD [address] [facility] [place] [address] 08/10/2024 1:40 PM EDT Office Visit Rheumatology [address] [place] [phone] Win Nielsen MD [address] [facility] [place] [address] Scheduled Procedures Name Priority Associated Diagnoses Date/Ti me ESOPHAGOGASTRODUODENOSCOPY ( EGD), FLEXIBLE, TRANSORAL, DIAGNOSTIC Recall Stark's esophagus with dysplasia Health Maintenance Due Date Last Done Comments Depression Screening 07/12/2021 07/12/2020 CKD PHOS USE SMARTSET 04008 08/21/2022 10/0 02/2021, 07/12/2020, 03/13/2019, Additional history exists *BISPHONATE OR OTHER ACCEPTABLE MEDICATION NEEDED FOR OSTEOPOROSIS (REFER TO SMARTSET #1146) 10/14/2023 Albumin/Creatinine Ratio 04/22/2024 023, 05/24/2022, 03/26/2022, Additional history exists TSH 10/08/2024 10/08/2023, 10/0 01/2023, 06/19/2023, Additional history exists CKD HGB USE SMARTSET 94798 01/14/202501/14, 01/14/2024, 01/07/2024, Additional history exists Stark's Esophagus Surveilance 02/26/2025 02/26/2022, 02/26/2022, 07/04/2021, Additional history exists DXA Scan 07/05/2025 07/05/2023, 1207/2020, 11/04/2018, Additional history exists DTaP,Tdap,and Td Vaccines (2 - Td or Tdap) 08/19/2027 08/19/2017, 08/20/2008 Pneumococcal Vaccine: 65+ Years Completed 06/23/2015, 05/14/2013, 04/18/2004 Zoster Vaccines Completed 12/02/2020, 08/15/2020 VITAMIN D LEVEL ONCE IN A LIFETIME-USE SMARTSET# 42497 Completed 04/22/2023, 08/28/2021, 07/14/2015 Influenza Vaccine (FLU [...] this encounter Medical Devices Implanted Type Area Chef De Froid Device Identifier Shelf Expiration Date Model / Serial / Lot Power Port 8fr Sngl Lumen Plas - [id number] Implanted:Qty: 1 on 02/22/2022 at [facility]ARD : PERIPHERAL VASCULAR [id number] 02/15/2023 [id number] / / [id number] documented as of this encounter Visit Diagnoses Diagnosis 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 documented in this encounter Advance Directives Latest Code Status on File Code Status Date Activated Date Inactivated Comments Full Code 09/03/2007 7:29 AM 09/03/2007 4:02 PM Care Teams Range Rider Relationship Specialty Start Date End Date Juancho Romero MD [address] [place] [address] [place] [id number] PCP - General Family Medicine 12/27/16 01/19/24 documented as of this encounter
--- OUTSIDE RECORDS SUMMARY | 2024-01-23 20:53 | External Medical Summary | Summary of Care ---
Author Name Unknown Organization [facility] Address [address] [place] [address] Phone [phone] Care Team Providers Care Refractory Bricklayer Name Role Phone Juancho Romero MD Primary Care Provider Reason for Visit * Reason Onset Date Comments Medication Refill 01/18/2024 Encounter Details Date Type Department Care Team (Late st Contact Info) Description 01/18/2024 Telephone Family Medicine [address] [phone] Juancho Romero MD [address] [place] [address] [place] [address] Medication Refill Allergies Active Allergy Reactions [...] albuterol 120 mL 5 11/21/2022 Active Ipratropium [place] 0.02 % Inhalation Solution (Atrovent)Indicatio ns:Moderate persistent [...] Respimat 2.5 MCG/ACT Inhalation Aerosol Solution (Tiotropium [place] Monohydrate)Indicat ions:Moderate persistent asthma without complication INHALE 2 PUFFS BY MOUTH EVERY DAY 12 g 3 04/30/2023 Active Warfarin Sodium 5 MG Oral Tablet (Coumadin)Indicatio ns:Pulmonary embolism and infarction (HCC) Take 0.5-1 Tablets by mouth every evening. Or take as instructed by the [facility] 90 Tablet 3 08/09/2023 Active [...] rinse after steroid. Test performed by Sameer CARAMEL CUTTER MACHINE CPFT Pleural plaque due to asbestos exposure Restrictive lung disease Overview: In Check dial performed to assess inhaler technique: 12/15/19 Name of inhalers Albuterol Pass: Yes at 60 L/min and Advair Pass: Yes at 60 L/min. Encouraged to to take deep breath, use aero chamber, and rinse after steroid. 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 Thank you, Yaw Richards (Matthew) Trim Mechanic III [facility] ([facility] (formerly Telepharmacy) 01/21/2024, 7:40 AM * Telephone Encounter - Gianfranco Richards CPhT - 01/21/2024 7:40 AM EST Pt's current insurance information is as follows: Patient name: Patrick Robles ID number: [id number] BIN number: [id number] PCN number: [id number] Group number: [id number] Subscriber name: Patrick Robles Primary or Secondary Insurance:Primary Medication: Esomeprazole 40mg Reason for Request: Qty limit Pharmacy and phone number: [facility] #[id number] Rx plan and phone number: [employer] medicare Thank you, Yaw Richards ([facility]) Trim Mechanic III [facility] ([facility]) (formerly Telepharmacy) 01/21/2024, 7:40 AM * Telephone Encounter - Lul Boone [facility] - 01/20/2024 12:14 PM EST Pending Prescriptions: Disp Refills Esomeprazole Magnesium 40 MG Oral Capsule *180 Ca*1 Sig: Take 1 Capsule by mouth in the morning and 1 Capsule before bedtime. * Telephone Encounter - Lul Boone [facility] - 01/20/2024 12:10 PM EST Bid dosing requires pa. Thank you, Eldon Boone, PharmD Clinical Pharmacist [facility] ([facility]) 01/20/24 12:13 PM [phone] documented in this encounter Plan of Treatment Upcoming Encounters Date Type Department Care Team (Late st Contact Info) Description 01/21/2024 9:00 AM EST Laboratory Laboratory [address] [place] [phone] [place] [address] 01/21/2024 2:00 PM EST Office Visit Family Medicine [address] [place] [phone] Bell Mcqueen MD [address] [place] [address] [place] [address] 01/22/2024 9:30 AM EST Immunization/Injecti on Hematology/Oncology Treatment, [address], [place] [phone] Nurse, Med 4 200 [facility] [place] [address] 01/28/2024 9:10 AM EDT Laboratory Laboratory [address] [place] [phone] [address] [place] [address] 01/29/2024 10:30 AM EDT Immunization/Injecti on Hematology/Oncology Treatment, [address], [place] [phone] Nurse, Med 4 200 [facility] [place] [address] 02/03/2024 9:50 AM EDT Office Visit Ophthalmology, [facility] 132 [facility] [place] [address] Pablo Casanova T, DO 16 [facility]1] [place] [address] 02/06/2024 10:30 AM EDT Office Visit Cardiology, [facility] 132 [facility] [place] [phone] Andres Rainey MD 132 [facility] [place] [address] 02/11/2024 9:40 AM EDT Office Visit Family Medicine [address] [place] [phone] Bell Mcqueen MD [address] [place] [address] [place] [address] 02/19/2024 11:00 AM EDT Immunization/Injecti on Hematology/Oncology Treatment, [place] [facility] [phone] Nurse, Med 200 [facility] [place] [address] 05/13/2024 11:00 AM EDT Office Visit Hematology/Oncology [facility] 200 [facility] [place] [address] Ludwig Louis MD 200 [facility] [place] [address] 08/10/2024 1:40 PM EDT Office Visit Rheumatology [address] [place] [phone] Win Nielsen MD [address] [facility] [place] [address] Scheduled Procedures Name Priority Associated Diagnoses Date/Ti me ESOPHAGOGASTRODUODENOSCOPY ( EGD), FLEXIBLE, TRANSORAL, DIAGNOSTIC Recall Stark's esophagus with dysplasia Health Maintenance Due Date Last Done Comments Depression Screening 07/12/2021 07/12/2020 CKD PHOS USE SMARTSET 42483 08/21/2022 10/0 02/2021, 07/12/2020, 03/13/2019, Additional history exists *BISPHONATE OR OTHER ACCEPTABLE MEDICATION NEEDED FOR OSTEOPOROSIS (REFER TO SMARTSET #1146) 10/14/2023 Albumin/Creatinine Ratio 04/22/2024 023, 05/24/2022, 03/26/2022, Additional history exists TSH 10/08/2024 10/08/2023, 10/0 01/2023, 06/19/2023, Additional history exists CKD HGB USE SMARTSET 55099 01/14/202501/14, 01/14/2024, 01/07/2024, Additional history exists Stark's Esophagus Surveilance 02/26/2025 02/26/2022, 02/26/2022, 07/04/2021, Additional history exists DXA Scan 07/05/2025 07/05/2023, 1207/2020, 11/04/2018, Additional history exists DTaP,Tdap,and Td Vaccines (2 - Td or Tdap) 08/19/2027 08/19/2017, 08/20/2008 Pneumococcal Vaccine: 65+ Years Completed 06/23/2015, 05/14/2013, 04/18/2004 Zoster Vaccines Completed 12/02/2020, 08/15/2020 VITAMIN D LEVEL ONCE IN A LIFETIME-USE SMARTSET# [id number] Completed 04/22/2023, 08/28/2021, 07/14/2015 Influenza Vaccine (FLU [...] this encounter Medical Devices Implanted Type Area Line Crew Supervisor Device Identifier Shelf Expiration Date Model / Serial / Lot Power Port 8fr Sngl Lumen Plas - [id number] Implanted:Qty: 1 on 02/22/2022 at [facility] : PERIPHERAL VASCULAR [id number] 02/15/2023 [id number] / / [id number] documented as of this encounter Visit Diagnoses Diagnosis 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 documented in this encounter Advance Directives Latest Code Status on File Code Status Date Activated Date Inactivated Comments Full Code 09/03/2007 7:29 AM 09/03/2007 4:02 PM Care Teams Refractory Bricklayer Relationship Specialty Start Date End Date Juancho Romero MD [address] [place] [address] [place] [phone] PCP - General Family Medicine 12/27/16 01/19/24 documented as of this encounter
--- OUTSIDE RECORDS SUMMARY | 2024-01-23 20:53 | External Medical Summary ---
Author Name Unknown Address Unknown Organization K01[place] [place] [address] [place] [address] Laboratory Report Ordering Provider Test Date Status ADRIENNE SALCIDO 01/21/2024 10:59:51 Final Observation Date Value Abnormality Reference (Units ) Status Folic Acid 01/21/2024 10:59:51 5.4 >4.5 (ng/ mL) Final Performing Location [facility] [place] [address] [place] [address]
--- OUTSIDE RECORDS SUMMARY | 2024-01-23 20:53 | External Medical Summary ---
Author Name Unknown Address Unknown Organization K01:[facility] [place] - [address] [place] [address] Laboratory Report Ordering Provider Test Date Status ADRIENNE SALCIDO 01/21/2024 10:59:51 Final Observation Date Value Abnormality Reference (Units ) Status Iron 01/21/2024 10:59:51 44 Below low normal 45-176 (ug/dL) Final Iron-binding capacity 01/21/2024 10:59:51 259 250-425 (ug/dL) Final Transferrin Sat % 01/21/2024 10:59:51 17 15-55 (%) Final Performing Location [facility] [place] - [address] [place] [address]
--- OUTSIDE RECORDS SUMMARY | 2024-01-23 20:54 | External Medical Summary | Summary of Care ---
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) Procedures WV INJ RETACRIT NON-ESRD USE WV THERAPEUTIC PROPHYLACTIC/DX INJECTION SUBQ/IM [place] EPOETIN IVAN, NON-ESRD Ludwig Louis MD 200 [facility] [place] [address] Anc Hem/Onc Dony Hickman DEPT CLOSED - 10/01/23 [address] [place] [address] Referral ID Status Reason Start Date Expiration Date V isits Requested Visits Authorized [id number] Authorized 11/22/2023 02/14/2024 999 99 Encounter Details Date Type Department Care Team (Late st Contact Info) Description 01/08/2024 11:00 AM EST Immunization/I njection Hematology/Oncology Treatment, [place] [address] [place] [phone] Nurse, Med 4 [address] [place] [address] Encounter for central line care*; Carcinoma of bladder (HCC); Iron deficiency anemia, unspecified iron deficiency anemia type; Chronic kidney disease, stage 3b (HCC); 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) Allergies Active Allergy Reactions Criticality Noted Date Comments Penicillins Other (Please comment),Rash High Eyes swell Pollen 05/03/2022 Wound Dressing Adhesive Rash 05/02/2023 Patient reported documented as of this encounter (statuses as of 01/14/2024) Medications Medication Sig Dispensed Refills Start Date [...] albuterol 120 mL 5 11/21/2022 Active Ipratropium [place] 0.02 % Inhalation Solution (Atrovent)Indicatio ns:Moderate persistent [...] Respimat 2.5 MCG/ACT Inhalation Aerosol Solution (Tiotropium [place] Monohydrate)Indicat ions:Moderate persistent asthma without complication INHALE 2 PUFFS BY MOUTH EVERY DAY 12 g 3 04/30/2023 Active Warfarin Sodium 5 MG Oral Tablet (Coumadin)Indicatio ns:Pulmonary embolism and infarction (HCC) Take 0.5-1 Tablets by mouth every evening. Or take as instructed by the [facility] 90 Tablet 3 [...] as of this encounter (statuses as of 01/14/2024) Active Problems Problem Noted Date Diagnosed Date [...] and rinse after steroid. Test performed by A.[place] WINDOWS SECURITY ENGINEER CPFT Hx of pulmonary embolus 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 Overview: [place] C0-M6 documented as of this encounter (statuses as of 01/14/2024) Resolved Problems Problem Noted Date Diagnosed Date [...] Malignant neoplasm of prostate 09/23/2008 03/27/2018 Overview: [place] grade 3 Atrial flutter 09/02/2007 10/16/2007 Herpes simplex virus infection 08/22/2005 04/05/2016 Anal fissure 06/04/2005 10/16/2007 supervisor intermediates current use of ant icoagulant therapy 05/30/2005 [...] as of this encounter (statuses as of 01/14/2024) Immunizations Name Administration Dates Next Due COVID-19 mRNA, LNP-s, No Pre serve, 2-Dose Series (25eight) 12/01/2021,01/16/2021,12/26/2020 COVID-19, LNP-s, No Preserve , Ozzy-sucrose, Ages 12+ (25eight) 12/01/2021 COVID-19, MRNA-LNP, 23-24, P F, 30 MCG/0.3 mL, 12 YRS AND ABOVE, IM ([facility]) 09/18/2023 Covid-19, Mrna, Lnp-s, Pf, B ivalent, 30 Mcg, IM, 12 yrs and above (25eight) 10/09/2022 Pneumococcal Conjugate Vacc, 13 Valent (Prevnar) [...] as of this encounter Progress Notes * Ludwig Louis MD - 01/14/2024 1:19 PM EST Last creatinine was done on 10/22/2023 and it was 1.5 with a GFR of 44. Based on this patient has stage IIIB chronic kidney disease and will continue Retacrit as per protocol documented in this encounter Nursing Notes * Kimberly Cao, RN - 01/08/2024 12:52 PM EST Chair 7, port flush/procrit. VAD (Venous Access Device) accessed with #20G 3/4" without difficulty.VAD flushed with 10 ml NSS and Heparin 5 ml (100 units/ml). Muhammad needle removed intact. Procrit administered per order for Hgb 10.3; pt tolerated well. Pt discharged in stable condition. Encouraged pt to increase water intake, as BP was low. Pt denies feeling lightheaded, dizzy. documented in this encounter Plan of Treatment Upcoming Encounters Date Type Department Care Team (Late st Contact Info) Description 01/15/2024 11:00 AM EST Immunization/Injection Hematology/Oncology Treatment, [place] [address] [place] [phone] Nurse, Med 4 [facility] [address] 01/20/2024 6:30 AM EST Anticoagulation Pharmacy Call Center [address] [place] [address] [facility] 58 60 [facility] [place] [address] 01/21/2024 9:00 AM EST Laboratory Laboratory [address] [place] [phone] [place] [address] 01/22/2024 9:30 AM EST Immunization/Injection Hematology/Oncology Treatment, [address] [place] [phone] Nurse, Med 4 [address] [facility] [place] [address] 01/28/2024 9:10 AM EDT Laboratory Laboratory [address] [place] [phone] [place] [address] 01/29/2024 10:30 AM EDT Immunization/Injection Hematology/Oncology Treatment, [address] [phone] Nurse, Med 4 [address] [facility] [place] [address] 02/03/2024 9:50 AM EDT Office Visit Ophthalmology, [facility] 132 [facility] [place] [address] Pablo Casanova, [address] [address] 02/06/2024 10:30 AM EDT Office Visit Cardiology, [facility] 132 [facility] [place] [address] Andres Rainey MD 132 [facility] [place] [address] 02/11/2024 9:40 AM EDT Office Visit Family Medicine [address] [place] [phone] Bell Mcqueen MD [address] [place] [address] [place] [address] 02/19/2024 11:00 AM EDT Immunization/Injection Hematology/Oncology Treatment, [address] [place] [phone] Nurse, Med 4 200 [facility] [place] [address] 05/13/2024 11:00 AM EDT Office Visit Hematology/Oncology [facility] [address] [place] [phone] Ludwig Louis MD 200 [facility] [place] [address] 08/10/2024 1:40 PM EDT Office Visit Rheumatology [address] [place] [phone] Win Nielsen MD [address] [facility] [place] [address] Scheduled Procedures Name Priority Associated Diagnoses Date/Ti me ESOPHAGOGASTRODUODENOSCOPY ( EGD), FLEXIBLE, TRANSORAL, DIAGNOSTIC Recall Stark's esophagus with dysplasia Health Maintenance Due Date Last Done Comments Depression Screening 07/12/2021 07/12/2020 CKD PHOS USE SMARTSET 79936 08/21/[address] 02/2021, 07/12/2020, 03/13/2019, Additional history exists *BISPHONATE OR OTHER ACCEPTABLE MEDICATION NEEDED FOR OSTEOPOROSIS (REFER TO SMARTSET #1146) 10/14/2023 Albumin/Creatinine Ratio 04/22/2024 023, 05/24/2022, 03/26/2022, Additional history exists TSH 10/08/2024 10/08/2023, 100 01/2023, 06/19/2023, Additional history exists CKD HGB USE SMARTSET 74805 01/07/202501/07, 01/07/2024, 01/01/2024, Additional history exists Stark's Esophagus Surveilance 02/26/2025 02/26/2022, 02/26/2022, 07/04/2021, Additional history exists DXA Scan 07/05/2025 07/05/2023, 10/19, 11/04/2018, Additional history exists DTaP,Tdap,and Td Vaccines (2 - Td or Tdap) 08/19/2027 08/19/2017, 08/20/2008 Pneumococcal Vaccine: 65+ Years Completed 06/23/2015, 05/14/2013, 04/18/2004 Zoster Vaccines Completed 12/02/2020, 08/15/2020 VITAMIN D LEVEL ONCE IN A LIFETIME-USE SMARTSET# [id number] Completed 04/22/2023, 08/28/2021, 07/14/2015 Influenza Vaccine (FLU [...] this encounter Medical Devices Implanted Type Area Reheater Helper Device Identifier Shelf Expiration Date Model / Serial / Lot Power Port 8fr Sngl Lumen Plas - [id number] Implanted:Qty: 1 on 02/22/2022 at [facility] : PERIPHERAL VASCULAR [id number] 02/15/2023 [id number] / / [id number] documented as of this encounter Visit Diagnoses Diagnosis Encounter for central line care- Primary Fitting and adjustment of vascular catheter Carcinoma of bladder (HCC) Malignant neoplasm of bladder, part unspecified Iron deficiency anemia, unspecified iron deficiency anemia type Chronic kidney disease, stage 3b (HCC) 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) documented in this encounter Administered Medications Inactive Administered Medications - up to 3 most recent administrations Medication Order MAR Action Action Date Dose Rate Site Epoetin Ivan [address]61 UNIT/ML inj 40,000 Units 40,000 Units, Subcutaneous, ONCE, On Sat01/08/24 at 1130, For 1 dose Given 01/08/2024 11:05 AM EST 40,000 Units Arm Right Upper hEParin 100 UNIT/ML Lock Flush inj 500 Units 500 Units (5 mL), IV Lock, PRN Other, IV Flush, Starting on Sat01/08/24 at 1041, Until Sat01/08/24 at 1656, For 24 hours, Do not flush if lock, PICC, or central line not in place; IV infusing or unable to flush. Given 01/08/2024 11:05 AM EST 500 Units sodium chloride 0.9 % flush central line 10 mL 10 mL, IV Push, PRN Other, IV Flush, Starting on Sat01/08/24 at 1041, Until Sat01/08/24 at 1656, For 24 hours, Do not flush if lock, PICC, or central line not in place; IV infusing or unable to flush. Given 01/08/2024 11:05 AM EST 10 mL documented in this encounter Advance Directives Latest Code Status on File Code Status Date Activated Date Inactivated Comments Full Code 09/03/2007 7:29 AM 09/03/2007 4:02 PM Care Teams Supervisor Compressed Yeast Relationship Specialty Start Date End Date Juancho Romero MD [address] [place] [address] [place] [address] PCP - General Family Medicine 12/27/16 documented as of this encounter
--- OUTSIDE RECORDS SUMMARY | 2024-01-23 20:54 | External Medical Summary | Summary of Care ---
Author Name Unknown Organization [facility] Address [address] [place] [address] Phone [phone] Care Team Providers Care Liner Replacer Name Role Phone Juancho Romero MD Primary Care Provider [phone] Reason for Visit * Reason Comments Outpatient Testing Encounter Details Date Type Department Care Team (Late st Contact Info) Description 01/14/2024 11:00 AM EST Laboratory Laboratory [address] [place] [phone] [place] [address] Urothelial carcinoma of bladder (HCC) Allergies Active Allergy Reactions Criticality Noted [...] albuterol 120 mL 5 11/21/2022 Active Ipratropium [place] 0.02 % Inhalation Solution (Atrovent)Indicatio ns:Moderate persistent [...] Respimat 2.5 MCG/ACT Inhalation Aerosol Solution (Tiotropium [place] Monohydrate)Indicat ions:Moderate persistent asthma without complication INHALE 2 PUFFS BY MOUTH EVERY DAY 12 g 3 04/30/2023 Active Warfarin Sodium 5 MG Oral Tablet (Coumadin)Indicatio ns:Pulmonary embolism and infarction (HCC) Take 0.5-1 Tablets by mouth every evening. Or take as instructed by the [facility] 90 Tablet 3 [...] rinse after steroid. Test performed by Sameer BRASSWIND INSTRUMENT REPAIRER CPFT Pleural plaque due to asbestos exposure Restrictive lung disease Overview: In Check dial performed to assess inhaler technique: 12/15/19 Name of inhalers Albuterol Pass: Yes at 60 L/min and Advair Pass: Yes at 60 L/min. Encouraged to to take deep breath, use aero chamber, and rinse after steroid. 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) 09/18/2023 Covid-19, Mrna, Lnp-s, Pf, B ivalent, 30 Mcg, IM, 12 yrs and above ([employer]) 10/09/2022 Pneumococcal Conjugate Vacc, 13 Valent (Prevnar) [...] 01/15/2024 11:00 AM EST Immunization/Injection Hematology/Oncology Treatment, [place] 200 [facility] [place] [phone] Nurse, Med [address] [address] 01/20/2024 6:30 AM EST Anticoagulation Pharmacy Call Center WB 58-60 Public [place] [address] [facility] 58 [facility] [place] [address] 01/21/2024 9:00 AM EST Laboratory Laboratory [address] [place] [phone] [place] [address] 01/22/2024 9:30 AM EST Immunization/Injection Hematology/Oncology Treatment, [place] [address] [facility] [place] [phone] Nurse, Med [address] [address] 01/28/2024 9:10 AM EDT Laboratory Laboratory [address] [place] [phone] [place] [address] 01/29/2024 10:30 AM EDT Immunization/Injection [address]emat[address] [phone] Nurse, Med 4 200 [facility] [place] [address] 02/03/2024 9:50 AM EDT Office Visit Ophthalmology, [facility] 132 [place] [address] Pablo Casanova T, DO [address] [place] [address] 02/06/2024 10:30 AM EDT Office Visit [facility]iology, [facility] [address] Andres Rainey MD 132 [place] [address] 02/11/2024 9:40 AM EDT Office Visit Family Medicine [address] [place] [phone] Bell Mcqueen MD [address] [place] [address] [place] [address] 02/19/2024 11:00 AM EDT Immunization/Injection Hematology/[address] [phone] Nurse, Med 4 200 [facility] [place] [address] 05/13/2024 11:00 AM EDT Office Visit Hematology/Oncology [facility] Ziggy Hickman [address] [facility] [place] [phone] Ludwig Louis MD [address] [place] [address] 08/10/2024 1:40 PM EDT Office Visit Rheumatology [address] [place] [phone] Win Nielsen MD [address] [facility] [place] [address] Pending Results Name Type Priority Associated Diagnoses Date /Time CBC WITH WBC DIFFERENTIAL Lab STAT Urothelial carcinoma of bladder (HCC) 01/14/2024 11:04 AM EST CBC Lab STAT Urothelial carcinoma of bladder (HCC) 01/14/2024 11:04 AM EST DIFFERENTIAL, AUTOMATED Lab STAT Urothelial carcinoma of bladder (HCC) 01/14/2024 11:04 AM EST Scheduled Procedures Name Priority Associated Diagnoses Date/Ti me ESOPHAGOGASTRODUODENOSCOPY ( EGD), FLEXIBLE, TRANSORAL, DIAGNOSTIC Recall Stark's esophagus with dysplasia Health Maintenance Due Date Last Done Comments Depression Screening 07/12/2021 07/12/2020 CKD PHOS USE SMARTSET 01052 08/21/20220 02/2021, 07/12/2020, 03/13/2019, Additional history exists *BISPHONATE OR OTHER ACCEPTABLE MEDICATION NEEDED FOR OSTEOPOROSIS (REFER TO SMARTSET #1146) 10/14/2023 Albumin/Creatinine Ratio 04/22/2024052 023, 05/24/2022, 03/26/2022, Additional history exists TSH 10/08/2024 10/08/2023, 100 01/2023, 06/19/2023, Additional history exists CKD HGB USE SMARTSET 19509 01/07/202501/07, 01/07/2024, 01/01/2024, Additional history exists Stark's Esophagus Surveilance 02/26/2025 02/26/2022, 02/26/2022, 07/04/2021, Additional history exists DXA Scan 07/05/2025 07/05/2023, 1207/2020, 11/04/2018, Additional history exists DTaP,Tdap,and Td Vaccines (2 - Td or Tdap) 08/19/2027 08/19/2017, 08/20/2008 Pneumococcal Vaccine: 65+ Years Completed 06/23/2015, 05/14/2013, 04/18/2004 Zoster Vaccines Completed 12/02/2020, 08/15/2020 VITAMIN D LEVEL ONCE IN A LIFETIME-USE SMARTSET# 21876 Completed 04/22/2023, 08/28/2021, 07/14/2015 Influenza Vaccine (FLU [...] this encounter Medical Devices Implanted Type Area Language And Literature Division Chair Device Identifier Shelf Expiration Date Model / Serial / Lot Power Port 8fr Sngl Lumen Plas - [id number] Implanted:Qty: 1 on 02/22/2022 at [facility] CR BARD : PERIPHERAL VASCULAR [id number] 02/15/2023 [id number] / / [id number] documented as of this encounter Visit Diagnoses Diagnosis Urothelial carcinoma of bladder (HCC) documented in this encounter Advance Directives Latest Code Status on File Code Status Date Activated Date Inactivated Comments Full Code 09/03/2007 7:29 AM 09/03/2007 4:02 PM Care Teams Liner Replacer Relationship Specialty Start Date End Date Juancho Romero MD [address] [place] [address] [place] [address] PCP - General Family Medicine 12/27/16 documented as of this encounter
--- OUTSIDE RECORDS SUMMARY | 2024-01-23 20:54 | External Medical Summary | Summary of Care ---
Author Name Unknown Organization [facility] Address [address] [place] [address] Phone [phone] Care Team Providers Care Technical Proposal Writer Name Role Phone Juancho Romero MD Primary Care Provider Reason for Visit * Reason Comments IV Therapy Venofer. Encounter Details Date Type Department Care Team (Latest Contact Info) Description 11/29/2023 9:15 AM EST Hem/Onc Treatment Hematology/Oncology Treatment, [address] [phone] Marylou, Chair [address] [address] Anemia of chronic disease*; Carcinoma of bladder (HCC); H/O mitral valve repair; Chronic kidney disease, stage 3b (HCC) Allergies Active Allergy Reactions Criticality Noted Date Comments Penicillins Other (Please comment),Rash High Eyes swell Pollen 05/03/2022 Wound Dressing Adhesive Rash 05/02/2023 Patient reported documented as of this encounter (statuses as of 01/10/2024) Medications Medication Sig Dispensed Refills Start Date End Date Status CO Q10 100 MG PO TABS 1 tab once daily 0 Active ZOVIRAX 5 % EX OINT 5 times daily as needed. 0 Active Polyethylene Glycol 3350 17 GM Oral Packet Take 1 Packet by mouth in the morning. 14 Each 0 6 Active Clindamycin HCl 300 MG Capsule Prior to dental appt 0 6 Active Albuterol Sulfate (PROAIR HFA) 108 (90 Base) MCG/ACT AERSIndications:M oderate persistent asthma with exacerbation Inhale 2 Puffs by mouth every 4 hours as needed for Wheezing. 1 Inhaler 3 9 Active Sucralfate 1 GM/10ML Oral Suspension (Carafate) Take 10 mL by mouth 4 times a day. 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 0 Active Vitamin D 25 MCG (1000 UT) Oral Tablet Take 1 Tablet by mouth in the morning. 0 Active Tamsulosin HCl 0.4 MG Oral Capsule (Flomax) TAKE 1 CAPSULE BY MOUTH AT BEDTIME 0 2 Active Albuterol Sulfate (2.5 MG/3ML) 0.083% Inhalation Nebulization Solution (Proventil)Indica tions:Moderate persistent asthma without complication Inhale 1 Vial via nebulizer every 6 hours as needed for Wheezing. Mix with albuterol 120 mL 5 3 Active Ipratropium [place] 0.02 % Inhalation Solution (Atrovent)Indicat ions:Moderate persistent asthma without complication Inhale 2.5 mL via nebulizer in the morning and 2.5 mL at noon and 2.5 mL in the evening and 2.5 mL before bedtime. Mix with albuterol solution. 75 mL 12 3 Active traMADol HCl 50 MG Oral Tablet (Ultram)Indicatio ns:Spinal stenosis of lumbar region without neurogenic claudication Take 1 Tablet by mouth every 6 hours as needed for Pain, Severe. 60 Tablet 0 3 Active Ferrous Sulfate 325 (65 Fe) MG Oral Tablet (Feosol)Indicatio ns:Iron deficiency anemia secondary to blood loss (chronic) TAKE ONE TABLET BY MOUTH WITH FOOD DAILY 90 Tablet 3 3 Active Spiriva Respimat 2.5 MCG/ACT Inhalation Aerosol Solution (Tiotropium [place] Monohydrate)Indic ations:Moderate persistent asthma without complication INHALE 2 PUFFS BY MOUTH EVERY DAY 12 g 3 3 Active Warfarin Sodium 5 MG Oral Tablet (Coumadin)Indicat ions:Pulmonary embolism and infarction (HCC) Take 0.5-1 Tablets by mouth every evening. 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 45 Tablet 3 3 Active Furosemide 40 MG Oral Tablet (Lasix)Indication s:Acute on chronic diastolic congestive heart failure (HCC) Take one tablet daily and as directed for weight gain 0 3 Active guaiFENesin ER 600 MG Oral Tablet Extended Release 12 Hour (Humibid LA)Indications:Ac fahad cough Take 1 Tablet by mouth in the morning and 1 Tablet before bedtime. 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 30 Tablet 0 3 12/16/19 24 Discontinued(Ref ill) Levothyroxine Sodium 125 MCG Oral Tablet (Levoxyl)Indicati ons:Carcinoma of bladder (HCC) TAKE 1 TAB BY MOUTH DAILY FIRST THING IN THE MORNING AT LEAST 30 MIN PRIOR TO BREAKFAST/OTHE R MEDS 90 Tablet 0 4 01/06/20 24 Discontinued Hospital, Clinic, or Other Facility Administered Medication Ordered Dose Route Frequency Start Date End Date Status Albuterol Sulfate (Proventil) (5 MG/ML) 0.5% *conc* inhalation solution 2.5 mgIndications:Restricti ve lung disease,Moderate persistent asthma without complication 2.5 mg NEBULIZER PRN 12/25/2022 12/25/2023 Ende d Albuterol Sulfate (Proventil) (2.5 MG/3ML) 0.083% inhalation solution 2.5 mgIndications:Restricti ve lung disease,Moderate persistent asthma without complication 2.5 mg NEBULIZER PRN 12/25/2022 12/25/2023 Ende d documented as of this encounter (statuses as of 01/10/2024) Active Problems Problem Noted Date Diagnosed Date Chronic kidney disease, stage 3b 10/28/2023 Overview: [...] 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 Test performed by Sameer CLINICAL CONSULTANT CPFT Pleural plaque due to asbestos exposure Restrictive lung disease Overview: In Check dial performed to assess inhaler technique: 12/15/19 Name of inhalers Albuterol Pass: Yes at 60 L/min and Advair Pass: Yes at 60 L/min. Encouraged to to take deep breath, use aero chamber, and rinse after steroid. 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 Overview: [place] C0-M6 documented as of this encounter (statuses as of 01/10/2024) Resolved Problems Problem Noted Date Diagnosed Date [...] as of this encounter (statuses as of 01/10/2024) Immunizations Name Administration Dates Next Due COVID-19 mRNA, LNP-s, No Pre serve, 2-Dose Series ([employer]) 12/01/2021,01/16/2021,12/26/2020 COVID-19, LNP-s, No Preserve , Ozzy-sucrose, Ages 12+ ([employer]) 12/01/2021 COVID-19, MRNA-LNP, 23-24, P F, 30 MCG/0.3 mL, 12 YRS AND ABOVE, IM ([employer]) 09/18/2023 Covid-19, Mrna, Lnp-s, Pf, B ivalent, 30 Mcg, IM, 12 yrs and above ([employer]) 10/09/2022 Pneumococcal Conjugate Vacc, 13 Valent (Prevnar) [...] Sign Reading Time Taken Comments Blood Pressure 93/52 11/29/2023 9:18 AM EST Pulse 63 11/29/2023 9:18 AM EST Temperature 36.2 C (97.2 F) 11/29/2023 9:18 AM ES T Respiratory Rate 18 11/29/2023 9:18 AM EST Oxygen Saturation 93% 11/29/2023 9:18 AM EST Inhaled Oxygen Concentration - - Weight - - Height - - Body Mass Index - - documented in this encounter Nursing Notes * Anneliese Ortiz RN - 11/29/2023 11:07 AM EST Goals: Patient will remain free from injury. Possible barriers to meeting goals: Fall risk d/t ambulation with IV pole. Stability of the patient: Moderately stable - low risk of patient condition declining or worsening Summary regarding today's goals: Met: Patient remained free of injury. Patient tolerated procedure well. Discharged in stable condition. * Anneliese Ortiz RN - 11/29/2023 9:33 AM EST Chair 7. Patient arrived for venofer treatment with no complaints. VAD accessed with no issues. Safety and Risk for Injury Patient will remain free from injury. Ensure appropriate safety devices are available. Provide and maintain safe environment. documented in this encounter Plan of Treatment Upcoming Encounters Date Type Department Care Team (Late st Contact Info) Description 01/14/2024 11:00 AM EST Laboratory Laboratory [address] [place] [phone] [address] [place] [address] 01/14/2024 11:15 AM EST Cardiac Studies Cardiology [address] [place] [address] [place], Pacer [address] [place] [address] 01/15/2024 11:00 AM EST Immunization/Injection Hematology/Oncology Treatment, [place] [address] [place] [phone] Nurse, Med [address] [place] [address] 01/20/2024 6:30 AM EST Anticoagulation Pharmacy Call Center WB 58-60 Public [place] [address] [facility] [address] [place] [address] [place] [address] 01/21/2024 9:00 AM EST Laboratory Laboratory [address] [place] [phone] [place] [address] 01/22/2024 9:30 AM EST Immunization/Injection [facility]ematology/Oncology Treatment, [place] [facility] [phone] Nurse, Med [address] [facility] [place] [address] 01/28/2024 9:10 AM EDT Laboratory Laboratory [address] [place] [phone] [place] [address] 01/29/2024 10:30 AM EDT Immunization/Injection Hematology/Oncology Treatment, [place] [facility] [phone] Nurse, Med [address] [facility] [place] [address] 02/03/2024 9:50 AM EDT Office Visit Ophthalmology, [facility] 132 [facility] [place] [address] Pablo Casanova T, DO [address] [place] [address] 02/06/2024 10:30 AM EDT Office Visit Cardiology, [facility] 132 [facility] [place] [address] Andres Rainey MD 132 [facility] [place] [address] 02/11/2024 9:40 AM EDT Office Visit Family Medicine [address] [place] [phone] Bell Mcqueen MD [address] [place] [address] [place] [address] 02/19/2024 11:00 AM EDT Immunization/Injection Hematology/Oncology Treatment, [place] [facility] [phone] Nurse, Med 200 [facility] [place] [address] 05/13/2024 11:00 AM EDT Office Visit Hematology/Oncology [facility] 200 [facility] [place] [phone] Ludwig Louis MD 200 [facility] [place] [address] 08/10/2024 1:40 PM EDT Office Visit Rheumatology [address] [place] [phone] Win Nielsen MD [facility] [place], [place] [address] Scheduled Procedures Name Priority Associated Diagnoses Date/Ti me ESOPHAGOGASTRODUODENOSCOPY ( EGD), FLEXIBLE, TRANSORAL, DIAGNOSTIC Recall Stark's esophagus with dysplasia Health Maintenance Due Date Last Done Comments Depression Screening 07/12/2021 07/12/2020 CKD PHOS USE SMARTSET 77509 08/21/[address] 02/2021, 07/12/2020, 03/13/2019, Additional history exists *BISPHONATE OR OTHER ACCEPTABLE MEDICATION NEEDED FOR OSTEOPOROSIS (REFER TO SMARTSET #1146) 10/14/2023 Albumin/Creatinine Ratio 04/22/2024 023, 05/24/2022, 03/26/2022, Additional history exists TSH 10/08/2024 10/08/2023, 100 01/2023, 06/19/2023, Additional history exists CKD HGB USE SMARTSET 18805 01/07/202501/07, 01/07/2024, 01/01/2024, Additional history exists Stark's Esophagus Surveilance 02/26/2025 02/26/2022, 02/26/2022, 07/04/2021, Additional history exists DXA Scan 07/05/2025 07/05/2023, 10/19, 11/04/2018, Additional history exists DTaP,Tdap,and Td Vaccines (2 - Td or Tdap) 08/19/2027 08/19/2017, 08/20/2008 Pneumococcal Vaccine: 65+ Years Completed 06/23/2015, 05/14/2013, 04/18/2004 Zoster Vaccines Completed 12/02/2020, 08/15/2020 VITAMIN D LEVEL ONCE IN A LIFETIME-USE SMARTSET# 33869 Completed 04/22/2023, 08/28/2021, 07/14/2015 Influenza Vaccine (FLU [...] this encounter Medical Devices Implanted Type Area Timber Management Assistant Device Identifier Shelf Expiration Date Model / Serial / Lot Power Port 8fr Sngl Lumen Plas - [id number] Implanted:Qty: 1 on 02/22/2022 at [facility] [employer]ARD : PERIPHERAL VASCULAR [id number] 02/15/2023 [id number] / / [id number] documented as of this encounter Visit Diagnoses Diagnosis Anemia of chronic disease- Primary Anemia of other chronic disease Carcinoma of bladder (HCC) Malignant neoplasm of bladder, part unspecified H/O mitral valve repair Personal history of surgery to heart and great vessels, presenting hazards to health Chronic kidney disease, stage 3b (HCC) documented in this encounter Administered Medications Inactive Administered Medications - up to 3 most recent administrations Medication Order MAR Action Action Date Dose Rate Site hEParin 100 UNIT/ML Lock Flush inj 500 Units 500 Units (5 mL), IV Lock, PRN Other, IV Flush, Starting on Sat11/29/23 at 0919, Until Sat11/29/23 at 1509, For 24 hours, Do not flush if lock, PICC, or central line not in place; IV infusing or unable to flush. Given 11/29/2023 11:01 AM EST 500 Units Iron Sucrose (Venofer) 300 mg in NSS 250 mL ivpb 300 mg, IV Piggyback, ONCE, 1 dose, On Sat11/29/23 at 1100, Administer over 90 Minutes Start Infusion 11/29/2023 9:30 AM EST 300 mg 166.67 mL/hr NSS infusion 500 mL, Intravenous, at 50 mL/hr, CONTINUOUS, Starting on Sat11/29/23 at 1030, Until Sat11/29/23 at 1509 Start Infusion 11/29/2023 9:29 AM EST 500 mL 50 mL/hr sodium chloride 0.9 % flush central line 10 mL 10 mL, IV Push, PRN Other, IV Flush, Starting on Sat11/29/23 at 0919, Until Sat11/29/23 at 1509, For 24 hours, Do not flush if lock, PICC, or central line not in place; IV infusing or unable to flush. Given 11/29/2023 11:01 AM EST 10 mL documented in this encounter Advance Directives Latest Code Status on File Code Status Date Activated Date Inactivated Comments Full Code 09/03/2007 7:29 AM 09/03/2007 4:02 PM Care Teams Technical Proposal Writer Relationship Specialty Start Date End Date Juancho Romero MD [address] [place] [address] [place] [address] PCP - General Family Medicine 12/27/16 documented as of this encounter
--- OUTSIDE RECORDS SUMMARY | 2024-01-23 20:54 | External Medical Summary ---
Author Name Unknown Address Unknown Organization K01:[facility] [place] [facility] [address] [place] [address] Laboratory Report Ordering Provider Test Date Status ADRIENNE SALCIDO 01/14/2024 11:04:12 Final Observation Date Value Abnormality Reference (Units ) Status WBC, Total 01/14/2024 11:04:12 5.53 4.00-10.80 (K/uL) Final RBC 01/14/2024 11:04:12 3.57 4.50-5.25 (M/uL) Final Hemoglobin 01/14/2024 11:04:12 10.5 Below low normal 14.0-16.8 (g/dL) Final HCT 01/14/2024 11:04:12 36.1 Below low normal 40.0-48.4 (%) Final MCV 01/14/2024 11:04:12 101.1 82.0-99.5 (fL) Final MCH 01/14/2024 11:04:12 29.4 27.0-34.0 (pg) Final MCHC 01/14/2024 11:04:12 29.1 32.0-36.0 (g/dL) Final RDW 01/14/2024 11:04:12 17.7 11.5-15.5 (%) Final Platelets 01/14/2024 11:04:12 117 Below low normal 140-400 (K/uL) Final MPV 01/14/2024 11:04:12 11.6 6.6-11.1 (fL) Final Nucleated erythrocytes/100 leukocytes [Ratio] in Blood by Automated count 01/14/2024 11:04:12 0 <=0 (/100 WBCs) Final Performing Location [facility] [place] - [address] [place] [address]
--- OUTSIDE RECORDS SUMMARY | 2024-01-23 20:54 | External Medical Summary | Summary of Care ---
Author Name Unknown Organization [facility] Address [address] [place] [address] Phone [phone] Care Team Providers Care Ceramic Worker Name Role Phone Juancho Romero MD Primary Care Provider Reason for Visit * Reason Comments IV Therapy Venofer. Encounter Details Date Type Department Care Team (Latest Contact Info) Description 11/29/2023 9:15 AM EST Hem/Onc Treatment Hematology/Oncology Treatment, [address] [phone] Marylou, Chair 10 Hem On[address] [address] Anemia of chronic disease*; Carcinoma [...] albuterol 120 mL 5 3 Active Ipratropium Ayden 0.02 % Inhalation Solution (Atrovent)Indicat ions:Moderate persistent [...] Respimat 2.5 MCG/ACT Inhalation Aerosol Solution (Tiotropium Ayden Monohydrate)Indic ations:Moderate persistent asthma without complication INHALE 2 PUFFS BY MOUTH EVERY DAY 12 g 3 3 Active Warfarin Sodium 5 MG Oral Tablet (Coumadin)Indicat ions:Pulmonary embolism and infarction (HCC) Take 0.5-1 Tablets by mouth every evening. Or take as instructed by the [facility] 90 Tablet 3 3 Active [...] rinse after steroid. Test performed by Sameer FOOD PROCESSING SCIENTIST CPFT Pleural plaque due to asbestos exposure Restrictive lung disease Overview: In Check dial performed to assess inhaler technique: 12/15/19 Name of inhalers Albuterol Pass: Yes at 60 L/min and Advair Pass: Yes at 60 L/min. Encouraged to to take deep breath, use aero chamber, and rinse after steroid. 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 Overview: [place] C0-M6 documented as of this encounter (statuses [...] infection 08/22/2005 04/05/2016 Anal fissure 06/04/2005 10/16/2007 residential current use of ant icoagulant therapy 05/30/2005 [...] mRNA, LNP-s, No Pre serve, 2-Dose Series (Th[employer]) 12/01/2021,01/16/2021,12/26/2020 COVID-19, LNP-s, No Preserve , Ozzy-sucrose, Ages 12+ ([employer]) 12/01/2021 COVID-19, MRNA-LNP, 23-24, P F, 30 MCG/0.3 mL, 12 YRS AND ABOVE, IM (Telepath-Comirnaty) 09/18/2023 Covid-19, Mrna, Lnp-s, Pf, B ivalent, 30 Mcg, IM, 12 yrs and above (Th[employer]) 10/09/2022 Pneumococcal Conjugate Vacc, 13 Valent (Prevnar) [...] Description 01/14/2024 11:00 AM EST Laboratory Laboratory [address] [place] [phone] [address] [place] [address] 01/14/2024 11:15 AM EST Cardiac Studies Cardiology [address] [place] [address] [place], Pacer [address] [place] [address] 01/15/2024 11:00 AM EST Immunization/Injection Hematology/Oncology Treatment, [place] [address] [place] [phone] Nurse, Med [address] [place] [address] 01/20/2024 6:30 AM EST Anticoagulation Pharmacy Call Center WB 58-60 Public [place] [address] [facility] [address] [place] [address] [place] [address] 01/21/2024 9:00 AM EST Laboratory Laboratory [address] [place] [phone] [place] [address] 01/22/2024 9:30 AM EST Immunization/Injection Hematology/Oncology Treatment, [place] [facility] [phone] Nurse, Med 4 200 [facility] [place] [address] 01/28/2024 9:10 AM EDT Laboratory Laboratory [address] [place] [phone] [place] [address] 01/29/2024 10:30 AM EDT Immunization/Injection Hematology/Oncology Treatment, [place] [facility] [phone] Nurse, Med 4 200 [facility] [place] [address] 02/03/2024 9:50 AM EDT Office Visit Ophthalmology, [facility] 132 [facility] [place] [address] Pablo Casanova T, DO [address] [place] [address] 02/06/2024 10:30 AM EDT Office Visit Cardiology, [facility] 132 [facility] [place] [address] Andres Rainey MD 132 [facility] [place] [address] 02/11/2024 9:40 AM EDT Office Visit Family Medicine [address] [place] [phone] Bell Mcqueen MD [address] [place] [address] [place] [address] 02/19/2024 11:00 AM EDT Immunization/Injection Hematology/Oncology Treatment, [place] [facility] [phone] Nurse, Med 200 [facility] [place] [address] 05/13/2024 11:00 AM EDT Office Visit Hematology/Oncology [facility] 200 [facility] [place] [phone] Ludwig Louis MD 200 [facility] [place] [address] 08/10/2024 1:40 PM EDT Office Visit Rheumatology [address] [place] [phone] Win Nielsen MD [facility] [place], [place] [address] Scheduled Procedures Name Priority Associated Diagnoses Date/Ti me ESOPHAGOGASTRODUODENOSCOPY ( EGD), FLEXIBLE, TRANSORAL, DIAGNOSTIC Recall Stark's esophagus with dysplasia Health Maintenance Due Date Last Done Comments Depression Screening 07/12/2021 07/12/2020 CKD PHOS USE SMARTSET 91222 08/21/20220 02/2021, 07/12/2020, 03/13/2019, Additional history exists *BISPHONATE OR OTHER ACCEPTABLE MEDICATION NEEDED FOR OSTEOPOROSIS (REFER TO SMARTSET #1146) 10/14/2023 Albumin/Creatinine Ratio 04/22/2024 023, 05/24/2022, 03/26/2022, Additional history exists TSH 10/08/2024 10/08/2023, 100 01/2023, 06/19/2023, Additional history exists CKD HGB USE SMARTSET 59287 01/07/202501/07, 01/07/2024, 01/01/2024, Additional history exists Stark's Esophagus Surveilance 02/26/2025 02/26/2022, 02/26/2022, 07/04/2021, Additional history exists DXA Scan 07/05/2025 07/05/2023, 10/19, 11/04/2018, Additional history exists DTaP,Tdap,and Td Vaccines (2 - Td or Tdap) 08/19/2027 08/19/2017, 08/20/2008 Pneumococcal Vaccine: 65+ Years Completed 06/23/2015, 05/14/2013, 04/18/2004 Zoster Vaccines Completed 12/02/2020, 08/15/2020 VITAMIN D LEVEL ONCE IN A LIFETIME-USE SMARTSET# [id number] Completed 04/22/2023, 08/28/2021, 07/14/2015 Influenza Vaccine (FLU [...] this encounter Medical Devices Implanted Type Area Label Tacker Device Identifier Shelf Expiration Date Model / Serial / Lot Power Port 8fr Sngl Lumen Plas - [id number] Implanted:Qty: 1 on 02/22/2022 at [facility] : PERIPHERAL VASCULAR [id number] 02/15/2023 [id number] / / [id number] documented as of this encounter Visit Diagnoses [...] 7:29 AM 09/03/2007 4:02 PM Care Teams Ceramic Worker Relationship Specialty Start Date End Date Juancho Romero MD [address] [place] [address] [place] [address] PCP - General Family Medicine 12/27/16 documented as of this encounter
--- OUTSIDE RECORDS SUMMARY | 2024-01-23 20:54 | External Medical Summary ---
Author Name Unknown Address Unknown Organization K01:[facility] [place] [address] [facility] [place] [address] Laboratory Report Ordering Provider Test Date Status ADRIENNE SALCIDO 01/14/2024 11:04:12 Final Observation Date Value Abnormality Reference (Units ) Status SYNC LEUKOCYTES IN BLOOD BY AUTOMATED COUNT 01/14/2024 11:04:12 5.53 4.00-10.80 (K/uL) Final Segs 01/14/2024 11:04:12 74.9 40.0-75.0 (%) Final Lymphs % 01/14/2024 11:04:12 10.8 Below low normal 18.0-42.0 (%) Final Monos 01/14/2024 11:04:12 10.5 1.0-11.0 (%) Final Eosinophils 01/14/2024 11:04:12 1.6 0.0-6.0 (%) Final Basos 01/14/2024 11:04:12 1.3 0.0-2.0 (%) Final Immature Granulocyte, Percent 01/14/2024 11:04:12 0.9 0.0-2.0 (%) Final Absolute Segs 01/14/2024 11:04:12 4.14 1.80-7.70 (K/uL) Final Lymphs, absolute 01/14/2024 11:04:12 0.60 Below low normal 1.00-4.80 (K/ul) Final Monos, Abs 01/14/2024 11:04:12 0.58 0.00-1.10 (K/uL) Final Eos, Abs 01/14/2024 11:04:12 0.09 0.00-0.70 (K/uL) Final Basos, Abs 01/14/2024 11:04:12 0.07 0.00-0.20 (K/uL) Final Immature Granulocytes, Number 01/14/2024 11:04:12 0.05 0.00-0.20 (K/uL) Final Performing Location [facility] [place] - [facility] [place] [address]
--- OUTSIDE RECORDS SUMMARY | 2024-01-23 20:54 | External Medical Summary | Summary of Care ---
Author Name Unknown Organization [facility] Address [address] [place] [address] Phone [phone] Care Team Providers Care Erosion Control Specialist Name Role Phone Juancho Romero MD Primary Care Provider Reason for Visit * Reason Comments IV Therapy Venofer 3/4 Encounter Details Date Type Department Care Team (Latest Contact Info) Description 11/22/2023 11:00 AM EST Hem/Onc Treatment Hematology/Oncology Treatment, [address] [phone] Marylou, Chair [address] [address] Anemia of chronic disease*; Carcinoma of bladder (HCC); H/O mitral valve repair; Chronic kidney disease, stage 3b (HCC) Allergies Active Allergy Reactions Criticality Noted Date Comments Penicillins Other (Please comment),Rash High Eyes swell Pollen 05/03/2022 Wound Dressing Adhesive Rash 05/02/2023 Patient reported documented as of this encounter (statuses as of 01/13/2024) Medications Medication Sig Dispensed Refills Start Date [...] albuterol 120 mL 5 3 Active Ipratropium Wheelwright 0.02 % Inhalation Solution (Atrovent)Indicat ions:Moderate persistent [...] Respimat 2.5 MCG/ACT Inhalation Aerosol Solution (Tiotropium [place] Monohydrate)Indic ations:Moderate persistent asthma without complication INHALE 2 PUFFS BY MOUTH EVERY DAY 12 g 3 3 Active Warfarin Sodium 5 MG Oral Tablet (Coumadin)Indicat ions:Pulmonary embolism and infarction (HCC) Take 0.5-1 Tablets by mouth every evening. Or take as instructed by the [facility] 90 Tablet 3 3 [...] as of this encounter (statuses as of 01/13/2024) Active Problems Problem Noted Date Diagnosed Date [...] rinse after steroid. Test performed by Sameer IRON POURER CPFT Pleural plaque due to asbestos exposure Restrictive lung disease Overview: In Check dial performed to assess inhaler technique: 12/15/19 Name of inhalers Albuterol Pass: Yes at 60 L/min and Advair Pass: Yes at 60 L/min. Encouraged to to take deep breath, use aero chamber, and rinse after steroid. Test performed by Sameer IRON POURER CPFT Hx of pulmonary embolus 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 Overview: [place] C0-M6 documented as of this encounter (statuses as of 01/13/2024) Resolved Problems Problem Noted Date Diagnosed Date Resolved Date Closed fracture of multiple ribs of right [...] infection 08/22/2005 04/05/2016 Anal fissure 06/04/2005 10/16/2007 shelter current use of ant icoagulant therapy 05/30/2005 [...] as of this encounter (statuses as of 01/13/2024) Immunizations Name Administration Dates Next Due COVID-19 mRNA, LNP-s, No Pre serve, 2-Dose Series (Skyrobotic) 12/01/2021,01/16/2021,12/26/2020 COVID-19, LNP-s, No Preserve , Ozzy-sucrose, Ages 12+ (Skyrobotic) 12/01/2021 COVID-19, MRNA-LNP, 23-24, P F, 30 MCG/0.3 mL, 12 YRS AND ABOVE, IM ([facility]) 09/18/2023 Covid-19, Mrna, Lnp-s, Pf, B ivalent, 30 Mcg, IM, 12 yrs and above (Skyrobotic) 10/09/2022 Pneumococcal Conjugate Vacc, 13 Valent (Prevnar) [...] Sign Reading Time Taken Comments Blood Pressure 95/55 11/22/2023 11:05 AM EST Pulse 85 11/22/2023 11:05 AM EST Temperature 36.8 C (98.3 F) 11/22/2023 11:[address] Respiratory Rate 18 11/22/2023 11:05 AM EST Oxygen Saturation - - Inhaled Oxygen Concentration - - Weight - - Height - - Body Mass Index - - documented in this encounter Nursing Notes * Kimberly Cao, RN - 11/22/2023 4:06 PM EST Chair 6, Venofer. Pt reports "feeling good" today. PIV established; Venofer infusing. Safety and Risk for Injury Patient will remain free from injury. Ensure appropriate safety devices are available. Provide and maintain safe environment. Pt completed treatment without issues. VAD flushed with 10 ml NSS and Heparin 5 ml (100 units/ml). Muhammad needle removed intact. Goals: Pt will remain free from injury. Possible barriers to meeting goals: pt is a high fall risk Stability of the patient: Moderately stable - low risk of patient condition declining or worsening Summary regarding today's goals: Met: Pt remained free from injury during treatment today. Discharged in stable condition. CT assisted. documented in this encounter Plan of Treatment Upcoming Encounters Date Type Department Care Team (Late st Contact Info) Description 01/14/2024 11:00 AM EST Laboratory Laboratory [address] [place] [phone] [place] [address] 01/14/2024 11:15 AM EST Cardiac Studies Cardiology [address] [place] [address] [place], Pacer [address] [address] 01/15/2024 11:00 AM EST Immunization/Injection Hematology/Oncology Treatment, [place] [address] [place] [phone] Nurse, Med 4 [address] [facility] [address] 01/20/2024 6:30 AM EST Anticoagulation Pharmacy Call Center WB 58-60 Public [place] [address] [facility] 58 60 [facility] [place] [address] 01/21/2024 9:00 AM EST Laboratory Laboratory [address] [place] [phone] [place] [address] 01/22/2024 9:30 AM EST Immunization/Injection Hematology/Oncology Treatment, [place] 200 [place] [phone] Nurse, Med 4 200 [facility] [place] [address] 01/28/2024 9:10 AM EDT Laboratory Laboratory [address] [place] [phone] [place] [address] 01/29/2024 10:30 AM EDT Immunization/Injection Hematology/Oncology Treatment, [place] 200 [place] [phone] Nurse, Med 4 200 [facility] [place] [address] 02/03/2024 9:50 AM EDT Office Visit Ophthalmology, [facility] 132 [facility] [place] [address] Pablo Casanova T, DO [address] [place] [address] 02/06/2024 10:30 AM EDT Office Visit Cardiology, [facility] 132 [facility] [place] [address] Andres Rainey MD 132 [facility] [place] [address] 02/11/2024 9:40 AM EDT Office Visit Family Medicine [address] [place] [phone] Bell Mcqueen MD [address] [place] [address] [place] [address] 02/19/2024 11:00 AM EDT Immunization/Injection Hematology/Oncology Treatment, [place] [address] [place] [phone] Nurse, Med 4 200 [facility] [place] [address] 05/13/2024 11:00 AM EDT Office Visit Hematology/Oncology [facility] [place] 200 [facility] [place] [phone] Ludwig Louis MD 200 [facility] [place] [address] 08/10/2024 1:40 PM EDT Office Visit Rheumatology [address] [place] [phone] Win Nielsen MD [address] [facility] [place] [address] Scheduled Procedures Name Priority Associated Diagnoses Date/Ti me ESOPHAGOGASTRODUODENOSCOPY ( EGD), FLEXIBLE, TRANSORAL, DIAGNOSTIC Recall Stark's esophagus with dysplasia Health Maintenance Due Date Last Done Comments Depression Screening 07/12/2021 07/12/2020 CKD PHOS USE SMARTSET 86856 08/21/[address] 02/2021, 07/12/2020, 03/13/2019, Additional history exists *BISPHONATE OR OTHER ACCEPTABLE MEDICATION NEEDED FOR OSTEOPOROSIS (REFER TO SMARTSET #1146) 10/14/2023 Albumin/Creatinine Ratio 04/22/20242 023, 05/24/2022, 03/26/2022, Additional history exists TSH 10/08/2024 10/08/2023, 0 01/2023, 06/19/2023, Additional history exists CKD HGB USE SMARTSET 80995 01/07/202501/07, 01/07/2024, 01/01/2024, Additional history exists Stark's Esophagus Surveilance 02/26/2025 02/26/2022, 02/26/2022, 07/04/2021, Additional history exists DXA Scan 07/05/2025 07/05/2023, 10/19, 11/04/2018, Additional history exists DTaP,Tdap,and Td Vaccines (2 - Td or Tdap) 08/19/2027 08/19/2017, 08/20/2008 Pneumococcal Vaccine: 65+ Years Completed 06/23/2015, 05/14/2013, 04/18/2004 Zoster Vaccines Completed 12/02/2020, 08/15/2020 VITAMIN D LEVEL ONCE IN A LIFETIME-USE SMARTSET# [id number] Completed 04/22/2023, 08/28/2021, 07/14/2015 Influenza Vaccine (FLU [...] this encounter Medical Devices Implanted Type Area Custodial Foreman Device Identifier Shelf Expiration Date Model / Serial / Lot Power Port 8fr Sngl Lumen Plas - [id number] Implanted:Qty: 1 on 02/22/2022 at [facility] : PERIPHERAL VASCULAR [id number] 02/15/2023 [id number] / / [id number] documented as of this encounter Visit Diagnoses [...] Lock, PRN Other, IV Flush, Starting on Sat11/22/23 at 1133, Until Sat11/22/23 at 2009, For 24 hours, Do not flush if lock, PICC, or central line not in place; IV infusing or unable to flush. Given 11/22/2023 1:09 PM EST 500 Units Iron Sucrose (Venofer) 300 mg in NSS 250 mL ivpb 300 mg, IV Piggyback, ONCE, 1 dose, On Sat11/22/23 at 1315, Administer over 90 Minutes Start Infusion 11/22/2023 11:33 AM EST 300 mg 166.67 mL/hr NSS infusion 500 mL, Intravenous, at 50 mL/hr, CONTINUOUS, Starting on Sat11/22/23 at 1245, Until Sat11/22/23 at 2008 Start Infusion 11/22/2023 11:33 AM EST 500 mL 50 mL/hr sodium chloride 0.9 % flush central line 10 mL 10 mL, IV Push, PRN Other, IV Flush, Starting on Sat11/22/23 at 1133, Until Sat11/22/23 at 2008, For 24 hours, Do not flush if lock, PICC, or central line not in place; IV infusing or unable to flush. Given 11/22/2023 1:09 PM EST 10 mL documented in this encounter Advance Directives Latest Code Status on File Code Status Date Activated Date Inactivated Comments Full Code 09/03/2007 7:29 AM 09/03/2007 4:02 PM Care Teams Erosion Control Specialist Relationship Specialty Start Date End Date Juancho Romero MD [address] [place] [address] [place] [address] PCP - General Family Medicine 12/27/16 documented as of this encounter
--- OUTSIDE RECORDS SUMMARY | 2024-01-23 20:54 | External Medical Summary | Summary of Care ---
Author Name Unknown Organization [facility] Address [address] [place] [address] Phone [phone] Care Team Providers Care Tractor Sweeper Operator Name Role Phone Juancho Romero MD Primary Care Provider Reason for Visit * Reason Comments Pacemaker Clinic Encounter Details Date Type Department Care Team (Latest Contact Info) Description 01/14/2024 11:15 AM EST Cardiac Studies Cardiology [address] [place] [phone] [facility] [address] [address] Permanent atrial fibrillation (HCC)*; Cardiac pacemaker in situ; Paroxysmal SVT (supraventricular tachycardia); Heart failure, diastolic, with acute decompensation (HCC) Allergies Active Allergy Reactions Criticality Noted Date Comments Penicillins Other (Please comment),Rash High Eyes swell Pollen 05/03/2022 Wound Dressing Adhesive Rash 05/02/2023 Patient reported documented as of this encounter (statuses as of 01/15/2024) Medications Medication Sig Dispensed Refills Start Date [...] albuterol 120 mL 5 11/21/2022 Active Ipratropium Justice 0.02 % Inhalation Solution (Atrovent)Indicatio ns:Moderate persistent [...] Respimat 2.5 MCG/ACT Inhalation Aerosol Solution (Tiotropium [place] Monohydrate)Indicat ions:Moderate persistent asthma without complication INHALE 2 PUFFS BY MOUTH EVERY DAY 12 g 3 04/30/2023 Active Warfarin Sodium 5 MG Oral Tablet (Coumadin)Indicatio ns:Pulmonary embolism and infarction (HCC) Take 0.5-1 Tablets by mouth every evening. Or take as instructed by the [facility] 90 Tablet 3 08/09/2023 [...] as of this encounter (statuses as of 01/15/2024) Active Problems Problem Noted Date Diagnosed Date [...] rinse after steroid. 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 Encouraged to to take deep breath, use aero chamber, and rinse after steroid. Test performed by Sameer BED LABORER CPFT Hx of pulmonary embolus 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 Overview: [place] C0-M6 documented as of this encounter (statuses as of 01/15/2024) Resolved Problems Problem Noted Date Diagnosed Date [...] Malignant neoplasm of prostate 09/23/2008 03/27/2018 Overview: [place] grade 3 Atrial flutter 09/02/2007 10/16/2007 Herpes simplex virus infection 08/22/2005 04/05/2016 Anal fissure 06/04/2005 10/16/2007 [facility] current use of ant icoagulant therapy 05/30/2005 [...] as of this encounter (statuses as of 01/15/2024) Immunizations Name Administration Dates Next Due COVID-19 mRNA, LNP-s, No Pre serve, 2-Dose Series ([employer]) 12/01/2021,01/16/2021,12/26/2020 COVID-19, LNP-s, No Preserve , Ozzy-sucrose, Ages 12+ ([employer]) 12/01/2021 COVID-19, MRNA-LNP, 23-24, P F, 30 MCG/0.3 mL, 12 YRS AND ABOVE, IM ([employer]) 09/18/2023 Covid-19, Mrna, Lnp-s, Pf, B ivalent, 30 Mcg, IM, 12 yrs and above ([facility]) 10/09/2022 Pneumococcal Conjugate Vacc, 13 Valent (Prevnar) [...] on file documented as of this encounter Nursing Notes * Farnaz Ruiz LPN - 01/15/2024 11:09 AM EST Patient and implanted device were evaluated today in the [facility]. Providers please see scanned report in the Scans tab. Left pectoral device pocket is healthy without erythema, swelling, pain, or drainage. PVC single counter increased from 22.8/hr to 101.0/hr Interrogation by Blair Zamora of [employer], Caleb Cho of [employer] and Farnaz Ruiz LPN documented in this encounter Plan of Treatment Upcoming Encounters Date Type Department Care Team (Late st Contact Info) Description 01/20/2024 6:30 AM EST Anticoagulation Pharmacy Call Center WB [address] [place] [address] [facility] 58 60 [facility] [place] [address] 01/21/2024 9:00 AM EST Laboratory Laboratory [address] [place] [phone] [place] [address] 01/22/2024 9:30 AM EST Immunization/Injection Hematology/Oncology Treatment, [place] [address] [place] [phone] Nurse, Med 4 200 [facility] [place] [address] 01/28/2024 9:10 AM EDT Laboratory Laboratory [address] [place] [phone] [place] [address] 01/29/2024 10:30 AM EDT Immunization/Injection Hematology/Oncology Treatment, [place] [address] [place] [phone] Nurse, Med 4 200 [facility] [place] [address] 02/03/2024 9:50 AM EDT Office Visit Ophthalmology, [facility] [address] [facility] [place] [address] Pablo Casanova T, DO [address] [place] [address] 02/06/2024 10:30 AM EDT Office Visit Cardiology, [facility] 132 [facility] [place] [address] Andres Rainey MD 132 [facility] [place] [address] 02/11/2024 9:40 AM EDT Office Visit Family Medicine [address] [place] [phone] Bell Mcqueen MD [address] [place] [address] [place] [address] 02/19/2024 11:00 AM EDT Immunization/Injection Hematology/Oncology Treatment, [place] [address] [facility] [address] [place] [phone] Nurse, Med 4 200 [facility] [place] [address] 05/13/2024 11:00 AM EDT Office Visit Hematology/Oncology [facility] [address] [facility] [place] [phone] Ludwig Louis MD 200 [facility] [place] [address] 08/10/2024 1:40 PM EDT Office Visit Rheumatology [address] [place] [phone] Win Nielsen MD [address] [place] [address] [place] [address] Scheduled Orders Name Type Priority Associated Diagnoses Orde r Schedule SINGLE-LEAD PACEMAKER + REPROGRAM Procedures Routine Permanent atrial fibrillation (HCC) Cardiac pacemaker in situ Paroxysmal SVT (supraventricular tachycardia) Heart failure, diastolic, with acute decompensation (HCC) Ordered: 01/15/2024 Scheduled Procedures Name Priority Associated Diagnoses Date/Ti me ESOPHAGOGASTRODUODENOSCOPY ( EGD), FLEXIBLE, TRANSORAL, DIAGNOSTIC Recall Stark's esophagus with dysplasia Health Maintenance Due Date Last Done Comments Depression Screening 07/12/2021 07/12/2020 CKD PHOS USE SMARTSET 52385 08/21/20220 02/2021, 07/12/2020, 03/13/2019, Additional history exists *BISPHONATE OR OTHER ACCEPTABLE MEDICATION NEEDED FOR OSTEOPOROSIS (REFER TO SMARTSET #1146) 10/14/2023 Albumin/Creatinine Ratio 04/22/2024 023, 05/24/2022, 03/26/2022, Additional history exists TSH 10/08/2024 10/08/2023, 0 01/2023, 06/19/2023, Additional history exists CKD HGB USE SMARTSET 73479 01/14/202501/14, 01/14/2024, 01/07/2024, Additional history exists Stark's Esophagus Surveilance 02/26/2025 02/26/2022, 02/26/2022, 07/04/2021, Additional history exists DXA Scan 07/05/2025 07/05/2023, 10/19, 11/04/2018, Additional history exists DTaP,Tdap,and Td Vaccines (2 - Td or Tdap) 08/19/2027 08/19/2017, 08/20/2008 Pneumococcal Vaccine: 65+ Years Completed 06/23/2015, 05/14/2013, 04/18/2004 Zoster Vaccines Completed 12/02/2020, 08/15/2020 VITAMIN D LEVEL ONCE IN A LIFETIME-USE SMARTSET# [id number] Completed 04/22/2023, 08/28/2021, 07/14/2015 Influenza Vaccine (FLU [...] this encounter Medical Devices Implanted Type Area Bar Finish Operator Device Identifier Shelf Expiration Date Model / Serial / Lot Power Port 8fr Sngl Lumen Plas - [id number] Implanted:Qty: 1 on 02/22/[address] [facility] CR BARD : PERIPHERAL VASCULAR [id number] 02/15/2023 [id number] / / [id number] documented as of this encounter Visit Diagnoses Diagnosis Permanent atrial fibrillation (HCC)- Primary Atrial fibrillation Cardiac pacemaker in situ Paroxysmal SVT (supraventricular tachycardia) Paroxysmal supraventricular tachycardia Heart failure, diastolic, with acute decompensation (HCC) Acute on chronic diastolic heart failure documented in this encounter Advance Directives Latest Code Status on File Code Status Date Activated Date Inactivated Comments Full Code 09/03/2007 7:29 AM 09/03/2007 4:02 PM Care Teams Tractor Sweeper Operator Relationship Specialty Start Date End Date Juancho Romero MD [address] [place] [address] [place] [phone] PCP - General Family Medicine 12/27/16 documented as of this encounter
--- OUTSIDE RECORDS SUMMARY | 2024-01-23 20:54 | External Medical Summary | Summary of Care ---
Author Name Unknown Organization [facility] Address [address] [place] [address] Phone [phone] Care Team Providers Care Paper Inspector Name Role Phone Unavailable Primary Care Provider Unavailabl e Reason for Visit * Reason Onset Date Comments Advice 01/20/2024 Encounter Details Date Type Department Care Team (Late st Contact Info) Description 01/20/2024 Telephone Family [address] [phone] Juancho Romero MD [address] [place] [address] [place] [address] Advice Allergies Active Allergy Reactions Criticality Noted Date Comments Penicillins Other (Please comment),Rash High Eyes swell Pollen 05/03/2022 Wound Dressing Adhesive Rash 05/02/2023 Patient reported documented as of this encounter (statuses as of 01/20/2024) Medications Medication Sig Dispensed Refills Start Date [...] albuterol 120 mL 5 11/21/2022 Active Ipratropium West[place] 0.02 % Inhalation Solution (Atrovent)Indicatio ns:Moderate persistent [...] Respimat 2.5 MCG/ACT Inhalation Aerosol Solution (Tiotropium [place] Monohydrate)Indicat ions:Moderate persistent asthma without complication INHALE 2 PUFFS BY MOUTH EVERY DAY 12 g 3 04/30/2023 Active Warfarin Sodium 5 MG Oral Tablet (Coumadin)Indicatio ns:Pulmonary embolism and infarction (HCC) Take 0.5-1 Tablets by mouth every evening. Or take as instructed by the [facility]in [facility] 90 Tablet 3 08/09/2023 [...] as of this encounter (statuses as of 01/20/2024) Active Problems Problem Noted Date Diagnosed Date [...] rinse after steroid. 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 Encouraged to to take deep breath, use aero chamber, and rinse after steroid. 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 Overview: [place] C0-M6 documented as of this encounter (statuses as of 01/20/2024) Resolved Problems Problem Noted Date Diagnosed Date [...] Malignant neoplasm of prostate 09/23/2008 03/27/2018 Overview: [place] grade 3 Atrial flutter 09/02/2007 10/16/2007 Herpes simplex virus infection 08/22/2005 04/05/2016 Anal fissure 06/04/2005 10/16/2007 longterm current use of ant icoagulant therapy 05/30/2005 [...] as of this encounter (statuses as of 01/20/2024) Immunizations Name Administration Dates Next Due COVID-19 mRNA, LNP-s, No Pre serve, 2-Dose Series ([place] [address]) 12/01/2021,01/16/2021,12/26/2020 COVID-19, LNP-s, No Preserve , Ozzy-sucrose, Ages 12+ ([place] [address]) 12/01/2021 COVID-19, MRNA-LNP, 23-24, P F, 30 MCG/0.3 mL, 12 YRS AND ABOVE, IM ([facility]) 09/18/2023 Covid-19, Mrna, Lnp-s, Pf, B ivalent, 30 Mcg, IM, 12 yrs and above ([place] [address]) 10/09/2022 Pneumococcal Conjugate Vacc, 13 Valent (Prevnar) [...] encounter Miscellaneous Notes * Telephone Encounter - Diana Turcios LPN - 01/20/2024 12:12 PM EST Call transferred to back line from call center Has been sick for 3 days using OTC meds, inhaler, breathing treatments, tessalon pearls He is not feeling well at all. Did not have a fever Sleeping most of today Wheezing will take to ED if pt gets worse before tomorrow. Scheduled with Dr. Alvarenga. * Telephone Encounter - Terese Baker OSA - 01/20/2024 12:08 PM EST Reason for patient's call: called and stated that the pt is having flu like symptoms and has been wheezing and is now still sleep and she has some concerns. She is requesting to speak to nurse at the clinic. Caller was transferred to nurse station at [facility] documented in this encounter Plan of Treatment Upcoming Encounters Date Type Department Care Team (Late st Contact Info) Description 01/21/2024 9:00 AM EST Laboratory Laboratory [address] [place] [phone] [place] [address] 01/21/2024 2:00 PM EST Office Visit Family Medicine [address] [place] [phone] Bell Mcqueen MD [address] [place] [address] [place] [address] 01/22/2024 9:30 AM EST Immunization/Injection Hematology/On[address], [address] [phone] Nurse, Med 4 200 [facility] [place] [address] 01/27/2024 6:30 AM EDT Anticoagulation Pharmacy Call Center [address] [place] [address] [facility], [facility] 58 60 [facility] [place] [address] 01/28/2024 9:10 AM EDT Laboratory Laboratory [address] [place] [phone] [address] [place] [address] 01/29/2024 10:30 AM EDT Immunization/Injection Hematology/Oncology Treatment, [address] [place] [phone] Nurse, Med 4 200 [facility] [place] [address] 02/03/2024 9:50 AM EDT Office Visit Ophthalmology, [facility] 132 [facility] [place] [address] Pablo Casanova, [address] [address] 02/06/2024 10:30 AM EDT Office Visit Cardiology, [facility] [address] [place] [address] Andres Rainey MD [address] [place] [address] 02/11/2024 9:40 AM EDT Office Visit Family Medicine [address] [place] [phone] Bell Mcqueen MD [address] [place] [address] [place] [address] 02/19/2024 11:00 AM EDT [facility] 200 [place] [phone] Nurse, Med 4 200 [facility] [place] [address] 05/13/2024 11:00 AM EDT Office Visit Hematology/Oncology [facility] 200 [facility] [place] [phone] Ludwig Louis MD 200 [facility] [place] [address] 08/10/2024 1:40 PM EDT Office Visit Rheumatology [address] [place] [phone] Win Nielsen MD [address] [place], [place] [address] Scheduled Procedures Name Priority Associated Diagnoses Date/Ti me ESOPHAGOGASTRODUODENOSCOPY ( EGD), FLEXIBLE, TRANSORAL, DIAGNOSTIC Recall Stark's esophagus with dysplasia Health Maintenance Due Date Last Done Comments Depression Screening 07/12/2021 07/12/2020 CKD PHOS USE SMARTSET 82561 08/21/2022 10/0 02/2021, 07/12/2020, 03/13/2019, Additional history exists *BISPHONATE OR OTHER ACCEPTABLE MEDICATION NEEDED FOR OSTEOPOROSIS (REFER TO SMARTSET #1146) 10/14/2023 Albumin/Creatinine Ratio 04/22/2024 023, 05/24/2022, 03/26/2022, Additional history exists TSH 10/08/2024 10/08/2023, 10/0 01/2023, 06/19/2023, Additional history exists CKD HGB USE SMARTSET 07609 01/14/202501/14, 01/14/2024, 01/07/2024, Additional history exists Stark's Esophagus Surveilance 02/26/2025 02/26/2022, 02/26/2022, 07/04/2021, Additional history exists DXA Scan 07/05/2025 07/05/2023, 10/19, 11/04/2018, Additional history exists DTaP,Tdap,and Td Vaccines (2 - Td or Tdap) 08/19/2027 08/19/2017, 08/20/2008 Pneumococcal Vaccine: 65+ Years Completed 06/23/2015, 05/14/2013, 04/18/2004 Zoster Vaccines Completed 12/02/2020, 08/15/2020 VITAMIN D LEVEL ONCE IN A LIFETIME-USE SMARTSET# [id number] Completed 04/22/2023, 08/28/2021, 07/14/2015 Influenza Vaccine (FLU [...] this encounter Medical Devices Implanted Type Area Excellence Specialist Device Identifier Shelf Expiration Date Model / Serial / Lot Power Port 8fr Sngl Lumen Plas - [id number] Implanted:Qty: 1 on 02/22/2022 at [facility] CR BARD : PERIPHERAL VASCULAR [id number] 02/15/2023 [id number] / / [id number] documented as of this encounter Advance Directives Latest Code Status on File Code Status Date Activated Date Inactivated Comments Full Code 09/03/2007 7:29 AM 09/03/2007 4:02 PM
--- OUTSIDE RECORDS SUMMARY | 2024-01-23 20:54 | External Medical Summary | Summary of Care ---
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) Procedures MA INJ RETACRIT NON-ESRD USE MA THERAPEUTIC PROPHYLACTIC/DX INJECTION SUBQ/IM MA EPOETIN IVAN, NON-ESRD Ludwig Louis MD [address] [place] [address] Anc Hem/Onc Dony [facility] DEPT CLOSED - 10/01/[address] [place] [phone] Referral ID Status Reason Start Date Expiration Date V isits Requested Visits Authorized [id number] Authorized 11/22/2023 02/14/2024 999 [id number] Encounter Details Date Type Department Care Team (Late st Contact Info) Description 01/15/2024 11:00 AM EST Immunization/I njection Hematology/Oncology Treatment, [place] 200 [facility] [place] [address] Nurse, Med 4 200 [facility] [place] [address] Carcinoma of bladder (HCC)*; Iron deficiency anemia, [...] albuterol 120 mL 5 11/21/2022 Active Ipratropium [place] 0.02 % Inhalation Solution (Atrovent)Indicatio ns:Moderate persistent [...] Respimat 2.5 MCG/ACT Inhalation Aerosol Solution (Tiotropium [place] Monohydrate)Indicat ions:Moderate persistent asthma without complication INHALE 2 PUFFS BY MOUTH EVERY DAY 12 g 3 04/30/2023 Active Warfarin Sodium 5 MG Oral Tablet (Coumadin)Indicatio ns:Pulmonary embolism and infarction (HCC) Take 0.5-1 Tablets by mouth every evening. Or take as instructed by the [facility] 90 Tablet 3 08/09/2023 Active [...] rinse after steroid. Test performed by Sameer SPINNER OPERATOR CPFT Pleural plaque due to asbestos exposure Restrictive lung disease Overview: In Check dial performed to assess inhaler technique: 12/15/19 Name of inhalers Albuterol Pass: Yes at 60 L/min and Advair Pass: Yes at 60 L/min. Encouraged to to take deep breath, use aero chamber, and rinse after steroid. Test performed by Sameer SPINNER OPERATOR CPFT Hx of pulmonary embolus 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 Overview: [place] C0-M6 documented as of this encounter (statuses [...] Malignant neoplasm of prostate 09/23/2008 03/27/2018 Overview: [place] grade 3 Atrial flutter 09/02/2007 10/16/2007 Herpes [...] mRNA, LNP-s, No Pre serve, 2-Dose Series (Sandbox) 12/01/2021,01/16/2021,12/26/2020 COVID-19, LNP-s, No Preserve , Ozzy-sucrose, Ages 12+ (Sandbox) 12/01/2021 COVID-19, MRNA-LNP, 23-24, P F, 30 MCG/0.3 mL, 12 YRS AND ABOVE, IM ([employer]) 09/18/2023 Covid-19, Mrna, Lnp-s, Pf, B ivalent, 30 Mcg, IM, 12 yrs and above (Sandbox) 10/09/2022 Pneumococcal Conjugate Vacc, 13 Valent (Prevnar) [...] Sign Reading Time Taken Comments Blood Pressure 115/57 01/15/2024 10:49 AM EST Pulse - - Temperature - - Respiratory Rate - - Oxygen Saturation - - Inhaled Oxygen Concentration - - Weight - - Height - - Body Mass Index - - documented in this encounter Progress Notes * Lynn Trevino LPN - 01/15/2024 11:20 AM EST 11:01- Patient arrived for his Procrit 40,000, hgb 10.5 on 01/14/2024, BP 115/57, units. Administered medication in left upper arm, patient tolerated injection well. No bleeding or bruising noted. Next appointment on 01/22/2024; patient instructed to have labs drawn prior to his injection, he verbalized understanding. Patient stable at discharge. documented in this encounter Plan of Treatment Upcoming Encounters Date Type Department Care Team (Late st Contact Info) Description 01/20/2024 6:30 AM EST Anticoagulation Pharmacy Call Center 58[address] [facility] [place] [address] [facility] 58 60 [facility] [place] [address] 01/21/2024 9:00 AM EST Laboratory Laboratory [address] [place] [phone] [address] [place] [address] 01/22/2024 9:30 AM EST Immunization/Injection Hematology/Oncology Treatment, [place] [address] [place] [phone] Nurse, Med 4 [address] [place] [address] 01/28/2024 9:10 AM EDT Laboratory Laboratory [address] [place] [address] [place] [address] 01/29/2024 10:30 AM EDT Immunization/Injection Hematology/Oncology Treatment, [place] [facility] [phone] Nurse, Med [address] [place] [address] 02/03/2024 9:50 AM EDT Office Visit Ophthalmology, [facility] 132 [place] [address] Pablo Casanova, [address] [address] 02/06/2024 10:30 AM EDT Office Visit Cardiology, [facility] 132 [place] [address] Anrdes Rainey MD 132 [place] [address] 02/11/2024 9:40 AM EDT Office Visit Family Medicine [address] [phone] Bell Mcqueen MD [address] [place] [address] [place] [address] 02/19/2024 11:00 AM EDT Immunization/Injection Hematology/Oncology Treatment, [address] [place] [phone] Nurse, Med [address] [place] [address] 05/13/2024 11:00 AM EDT Office Visit Hematology/Oncology [facility] [place]lou [place] [address] [phone] Ludwig Louis MD [address] [place] [address] 08/10/2024 1:40 PM EDT Office Visit Rheumatology [address] [place] [phone] Win Nielsen MD [address] [place] [address] Scheduled Procedures Name Priority Associated Diagnoses Date/Ti me ESOPHAGOGASTRODUODENOSCOPY ( EGD), FLEXIBLE, TRANSORAL, DIAGNOSTIC Recall Stark's esophagus with dysplasia Health Maintenance Due Date Last Done Comments Depression Screening 07/12/2021 07/12/2020 CKD PHOS USE SMARTSET 29282 08/21/20220 02/2021, 07/12/2020, 03/13/2019, Additional history exists *BISPHONATE OR OTHER ACCEPTABLE MEDICATION NEEDED FOR OSTEOPOROSIS (REFER TO SMARTSET #1146) 10/14/2023 Albumin/Creatinine Ratio 04/22/2024 023, 05/24/2022, 03/26/2022, Additional history exists TSH 10/08/2024 10/08/2023, 01/2023, 06/19/2023, Additional history exists CKD HGB USE SMARTSET 70534 01/14/202501/14, 01/14/2024, 01/07/2024, Additional history exists Stark's Esophagus Surveilance 02/26/2025 02/26/2022, 02/26/2022, 07/04/2021, Additional history exists DXA Scan 07/05/2025 07/05/2023, 10/19, 11/04/2018, Additional history exists DTaP,Tdap,and Td Vaccines (2 - Td or Tdap) 08/19/2027 08/19/2017, 08/20/2008 Pneumococcal Vaccine: 65+ Years Completed 06/23/2015, 05/14/2013, 04/18/2004 Zoster Vaccines Completed 12/02/2020, 08/15/2020 VITAMIN D LEVEL ONCE IN A LIFETIME-USE SMARTSET# [id number] Completed 04/22/2023, 08/28/2021, 07/14/2015 Influenza Vaccine (FLU [...] this encounter Medical Devices Implanted Type Area Independent Living Specialist Device Identifier Shelf Expiration Date Model / Serial / Lot Power Port 8fr Sngl Lumen Plas - [id number] Implanted:Qty: 1 on 02/22/2022 at [facility] CR BARD : PERIPHERAL VASCULAR [id number] 02/15/2023 [id number] / / [id number] documented as of this encounter Visit Diagnoses [...] Action Date Dose Rate Site Epoetin Ivan 22121 UNIT/ML inj 40,000 Units 40,000 Units, Subcutaneous, ONCE, On Sat01/15/24 at 1130, For 1 dose Given 01/15/2024 11:01 AM EST 40,000 Units Arm Left Upper documented in this encounter Advance Directives Latest Code Status on File Code Status Date Activated Date Inactivated Comments Full Code 09/03/2007 7:29 AM 09/03/2007 4:02 PM Care Teams Electrical And Radio Aircraft Mechanic Relationship Specialty Start Date End Date Juancho Romero MD [address] [place] [address] [place] [phone] PCP - General Family Medicine 12/27/16 documented as of this encounter
--- OUTSIDE RECORDS SUMMARY | 2024-01-23 20:54 | External Medical Summary | Summary of Care ---
Author Name Unknown Organization [facility] Address [address] [place] [address] Phone [phone] Care Team Providers Care Big Data Lead Name Role Phone Juancho Romero MD Primary Care Provider [phone] Reason for Visit * Reason Comments IV Therapy Venofer 3/4 Encounter Details Date Type Department Care Team (Latest Contact Info) Description 11/22/2023 11:00 AM EST Hem/Onc Treatment Hematology/Oncology Treatment, [address] [phone] Marylou, Chair 10 Hem On[address] [address] Anemia of chronic disease*; Carcinoma [...] albuterol 120 mL 5 3 Active Ipratropium [place] 0.02 % Inhalation Solution (Atrovent)Indicat ions:Moderate persistent [...] Respimat 2.5 MCG/ACT Inhalation Aerosol Solution (Tiotropium [place] Monohydrate)Indic ations:Moderate persistent asthma without complication INHALE 2 PUFFS BY MOUTH EVERY DAY 12 g 3 3 Active Warfarin Sodium 5 MG Oral Tablet (Coumadin)Indicat ions:Pulmonary embolism and infarction (HCC) Take 0.5-1 Tablets by mouth every evening. Or take as instructed by the [facility] 90 Tablet 3 3 Active [...] rinse after steroid. Test performed by Sameer KILN TESTER CPFT Pleural plaque due to asbestos exposure Restrictive lung disease Overview: In Check dial performed to assess inhaler technique: 12/15/19 Name of inhalers Albuterol Pass: Yes at 60 L/min and Advair Pass: Yes at 60 L/min. Encouraged to to take deep breath, use aero chamber, and rinse after steroid. Test performed by Sameer KILN TESTER CPFT Hx of pulmonary embolus 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 Overview: [place] C0-M6 documented as of this encounter (statuses [...] mRNA, LNP-s, No Pre serve, 2-Dose Series (Ludei) 12/01/2021,01/16/2021,12/26/2020 COVID-19, LNP-s, No Preserve , Ozzy-sucrose, Ages 12+ (Ludei) 12/01/2021 COVID-19, MRNA-LNP, 23-24, P F, 30 MCG/0.3 mL, 12 YRS AND ABOVE, IM ([employer]) 09/18/2023 Covid-19, Mrna, Lnp-s, Pf, B ivalent, 30 Mcg, IM, 12 yrs and above (Ludei) 10/09/2022 Pneumococcal Conjugate Vacc, 13 Valent (Prevnar) [...] Description 01/14/2024 11:00 AM EST Laboratory Laboratory [address] [place] [phone] [place] [address] 01/14/2024 11:15 AM EST Cardiac Studies Cardiology [address] [place] [address] [place], Pacer [address] [address] 01/15/2024 11:00 AM EST Immunization/Injection Hematology/Oncology Treatment, [place] [address] [place] [phone] Nurse, Med 4 [address] [facility] [address] 01/20/2024 6:30 AM EST Anticoagulation Pharmacy Call Center WB [address] [place] [address] [facility] 58 60 [facility] [place] [address] 01/21/2024 9:00 AM EST Laboratory Laboratory [address] [place] [phone] [place] [address] 01/22/2024 9:30 AM EST Immunization/Injection Hematology/Oncology Treatment, [place] 200 [place] [phone] Nurse, Med 4 200 [facility] [place] [address] 01/28/2024 9:10 AM EDT Laboratory Laboratory [address] [place] [phone] [place] [address] 01/29/2024 10:30 AM EDT Immunization/Injection Hematology/Oncology Treatment, [place] 200 [place] [phone] Nurse, Med 4 200 [facility] [place] [address] 02/03/2024 9:50 AM EDT Office Visit Ophthalmology, [facility] 132 [facility] [place] [address] Pablo Casanova T, DO [address] [place] [address] 02/06/2024 10:30 AM EDT Office Visit Cardiology, [facility] 132 [facility] [place] [address] Andres Rainey MD 132 [facility] [place] [address] 02/11/2024 9:40 AM EDT Office Visit Family Medicine [address] [place] [phone] Bell Mcqueen MD [address] [place] [address] [place] [address] 02/19/2024 11:00 AM EDT Immunization/Injection Hematology/Oncology Treatment, [place] [address] [place] [phone] Nurse, Med 4 200 [facility] [place] [address] 05/13/2024 11:00 AM EDT Office Visit Hematology/Oncology [facility] [place] 200 [facility] [place] [phone] Ludwig Louis MD 200 [facility] [place] [address] 08/10/2024 1:40 PM EDT Office Visit Rheumatology [address] [place] [phone] Win Nielsen MD 2520 [facility] [place] [address] Scheduled Procedures Name Priority Associated Diagnoses Date/Ti me ESOPHAGOGASTRODUODENOSCOPY ( EGD), FLEXIBLE, TRANSORAL, DIAGNOSTIC Recall Stark's esophagus with dysplasia Health Maintenance Due Date Last Done Comments Depression Screening 07/12/2021 07/12/2020 CKD PHOS USE SMARTSET 38400 08/21/20220 02/2021, 07/12/2020, 03/13/2019, Additional history exists *BISPHONATE OR OTHER ACCEPTABLE MEDICATION NEEDED FOR OSTEOPOROSIS (REFER TO SMARTSET #1146) 10/14/2023 Albumin/Creatinine Ratio 04/22/20242 023, 05/24/2022, 03/26/2022, Additional history exists TSH 10/08/2024 10/08/2023, 0 01/2023, 06/19/2023, Additional history exists CKD HGB USE SMARTSET 54389 01/07/202501/07, 01/07/2024, 01/01/2024, Additional history exists Stark's Esophagus Surveilance 02/26/2025 02/26/2022, 02/26/2022, 07/04/2021, Additional history exists DXA Scan 07/05/2025 07/05/2023, 10/19, 11/04/2018, Additional history exists DTaP,Tdap,and Td Vaccines (2 - Td or Tdap) 08/19/2027 08/19/2017, 08/20/2008 Pneumococcal Vaccine: 65+ Years Completed 06/23/2015, 05/14/2013, 04/18/2004 Zoster Vaccines Completed 12/02/2020, 08/15/2020 VITAMIN D LEVEL ONCE IN A LIFETIME-USE SMARTSET# [id number] Completed 04/22/2023, 08/28/2021, 07/14/2015 Influenza Vaccine (FLU [...] this encounter Medical Devices Implanted Type Area Roll Handler Device Identifier Shelf Expiration Date Model / Serial / Lot Power Port 8fr Sngl Lumen Plas - [id number] Implanted:Qty: 1 on 02/22/2022 at [facility] CR BARD : PERIPHERAL VASCULAR [id number] 02/15/2023 [id number] / / [id number] documented as of this encounter Visit Diagnoses [...] 7:29 AM 09/03/2007 4:02 PM Care Teams Big Data Lead Relationship Specialty Start Date End Date Juancho Romero MD [address] [place] [address] [place] [address] PCP - General Family Medicine 12/27/16 documented as of this encounter
--- OUTSIDE RECORDS SUMMARY | 2024-01-23 20:55 | External Medical Summary | Summary of Care ---
Author Name Unknown Organization [facility] Address [address] [place] [address] Phone [phone] Care Team Providers Care Intel Recruiter Name Role Phone Juancho Romero MD Primary Care Provider [phone] Reason for Visit * Reason Comments Outpatient Testing Encounter Details Date Type Department Care Team (Late st Contact Info) Description 01/07/2024 9:00 AM EST Laboratory Laboratory [address] [place] [phone] [place] [address] Urothelial carcinoma of bladder (HCC); Encounter for long-term (current) use of medications Allergies Active Allergy Reactions Criticality Noted Date Comments Penicillins Other (Please comment),Rash High Eyes swell Pollen 05/03/2022 Wound Dressing Adhesive Rash 05/02/2023 Patient reported documented as of this encounter (statuses as of 01/07/2024) Medications Medication Sig Dispensed Refills Start Date [...] albuterol 120 mL 5 11/21/2022 Active Ipratropium [place] 0.02 % Inhalation Solution (Atrovent)Indicatio ns:Moderate persistent [...] Respimat 2.5 MCG/ACT Inhalation Aerosol Solution (Tiotropium [place] Monohydrate)Indicat ions:Moderate persistent asthma without complication INHALE 2 PUFFS BY MOUTH EVERY DAY 12 g 3 04/30/2023 Active Warfarin Sodium 5 MG Oral Tablet (Coumadin)Indicatio ns:Pulmonary embolism and infarction (HCC) Take 0.5-1 Tablets by mouth every evening. Or take as instructed by the [facility] 90 Tablet 3 08/09/2023 [...] as of this encounter (statuses as of 01/07/2024) Active Problems Problem Noted Date Diagnosed Date [...] rinse after steroid. Test performed by Sameer RESIST COATER DEVELOPER CPFT Pleural plaque due to asbestos exposure Restrictive lung disease Overview: In Check dial performed to assess inhaler technique: 12/15/19 Name of inhalers Albuterol Pass: Yes at 60 L/min and Advair Pass: Yes at 60 L/min. Encouraged to to take deep breath, use aero chamber, and rinse after steroid. Test performed by Sameer RESIST COATER DEVELOPER CPFT Hx of pulmonary embolus 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 Overview: [place] C0-M6 documented as of this encounter (statuses as of 01/07/2024) Resolved Problems Problem Noted Date Diagnosed Date [...] Malignant neoplasm of prostate 09/23/2008 03/27/2018 Overview: [place] grade 3 Atrial flutter 09/02/2007 10/16/2007 Herpes [...] Aortic valve disorder 2006 Esophagitis 09/26/2017 MAL SALVAODR SIGMOID COLON 2013 Aortic valve disorder 2008 Mitral valve disorder 2008 Nonrheumatic tricuspid valve disorder 10/16/2007 CALCIF TENDINITIS SHLDER Cataract 09/08/2014 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.] Team (Late st Contact Info) Description 01/08/2024 10:00 AM EST Office Visit Hematology/Oncology [facility] 200 [facility] [place] [phone] Ludwig Louis MD 200 [facility] [place] [address] 01/08/2024 11:00 AM EST Immunization/Injection Hematology/Oncology Treatment, [place] 200 [facility] [place] [phone] Nurse, Med 200 [facility] [place] [address] 01/14/2024 11:15 AM EST Cardiac Studies Cardiology [address] [place] [address] Og Frazier [address] [place] [address] 01/20/2024 6:30 AM EST Anticoagulation Pharmacy Call Center [address] [place] [address] [facility] 58 60 [facility] [place] [address] 02/03/2024 9:50 AM EDT Office Visit Ophthalmology, [facility] 132 [place] [address] Pablo Casanova T, DO 16 [place] [address] 02/06/2024 10:30 AM EDT Office Visit Cardiology, [address] [place] [address] Andres Rainey MD 132 [place] [address] 02/11/2024 9:40 AM EDT Office Visit Family Medicine [address] [place] [phone] Bell Mcqueen MD [address] [place] [address] [place] [address] 08/10/2024 1:40 PM EDT Office Visit Rheumatology [address] [place] [phone] Win Nielsen MD [address] [place] [address] [place] [address] Pending Results Name Type Priority Associated Diagnoses Date /Time CBC WITH WBC DIFFERENTIAL Lab STAT Urothelial carcinoma of bladder (HCC) 01/07/2024 10:36 AM EST LIPID PANEL WITH DIRECT LDL IF TG IS HIGH Lab Routine Encounter for long-term (current) use of medications 01/07/2024 10:36 AM EST CBC Lab STAT Urothelial carcinoma of bladder (HCC) 01/07/2024 10:36 AM EST DIFFERENTIAL, AUTOMATED Lab STAT Urothelial carcinoma of bladder (HCC) 01/07/2024 10:36 AM EST Scheduled Procedures Name Priority Associated Diagnoses Date/Ti me ESOPHAGOGASTRODUODENOSCOPY ( EGD), FLEXIBLE, TRANSORAL, DIAGNOSTIC Recall Stark's esophagus with dysplasia Health Maintenance Due Date Last Done Comments Depression Screening 07/12/2021 07/12/2020 CKD PHOS USE SMARTSET 15029 08/21/2022 100 02/2021, 07/12/2020, 03/13/2019, Additional history exists *BISPHONATE OR OTHER ACCEPTABLE MEDICATION NEEDED FOR OSTEOPOROSIS (REFER TO SMARTSET #1146) 10/14/2023 Albumin/Creatinine Ratio 04/22/2024 023, 05/24/2022, 03/26/2022, Additional history exists TSH 10/08/2024 10/08/2023, 01/2023, 06/19/2023, Additional history exists CKD HGB USE SMARTSET 92837 01/01/202501/01, 01/01/2024, 12/25/2023, Additional history exists Stark's Esophagus Surveilance 02/26/2025 02/26/2022, 02/26/2022, 07/04/2021, Additional history exists DXA Scan 07/05/2025 07/05/2023, 10/19, 11/04/2018, Additional history exists DTaP,Tdap,and Td Vaccines (2 - Td or Tdap) 08/19/2027 08/19/2017, 08/20/2008 Pneumococcal Vaccine: 65+ Years Completed 06/23/2015, 05/14/2013, 04/18/2004 Zoster Vaccines Completed 12/02/2020, 08/15/2020 VITAMIN D LEVEL ONCE IN A LIFETIME-USE SMARTSET# [id number] Completed 04/22/2023, 08/28/2021, 07/14/2015 Influenza Vaccine (FLU [...] this encounter Medical Devices Implanted Type Area Senior Environmental Practice Leader Device Identifier Shelf Expiration Date Model / Serial / Lot Power Port 8fr Sngl Lumen Plas - [id number] Implanted:Qty: 1 on 02/22/2022 at [facility] CR BARD : PERIPHERAL VASCULAR [id number] 02/15/2023 [id number] / / [id number] documented as of this encounter Visit Diagnoses Diagnosis Urothelial carcinoma of bladder (HCC) Encounter for long-term (current) use of medications Encounter for long-term (current) use of other medications documented in this encounter Advance Directives Latest Code Status on File Code Status Date Activated Date Inactivated Comments Full Code 09/03/2007 7:29 AM 09/03/2007 4:02 PM Care Teams Intel Recruiter Relationship Specialty Start Date End Date Juancho Romero MD [address] [place] [address] [place] [phone] PCP - General Family Medicine 12/27/16 documented as of this encounter
--- OUTSIDE RECORDS SUMMARY | 2024-01-23 20:55 | External Medical Summary | Summary of Care ---
Author Name Unknown Organization [facility] Address [address] [place] [address] Phone [phone] Care Team Providers Care Hot Walker Name Role Phone Juancho Romero MD Primary Care Provider Encounter Details Date Type Department Care Team (Late st Contact Info) Description 01/08/2024 Orders Only Hematology/Oncology, [facility] [address] [place] [address] Ludwig Louis MD [address] [place], [place] [phone] Allergies Active Allergy Reactions Criticality Noted Date Comments Penicillins Other (Please comment),Rash High Eyes swell Pollen 05/03/2022 Wound Dressing Adhesive Rash 05/02/2023 Patient reported documented as of this encounter (statuses as of 01/08/2024) Medications Medication Sig Dispensed Refills Start Date [...] albuterol 120 mL 5 11/21/2022 Active Ipratropium [place] 0.02 % Inhalation Solution (Atrovent)Indicatio ns:Moderate persistent [...] Respimat 2.5 MCG/ACT Inhalation Aerosol Solution (Tiotropium [place] Monohydrate)Indicat ions:Moderate persistent asthma without complication INHALE 2 PUFFS BY MOUTH EVERY DAY 12 g 3 04/30/2023 Active Warfarin Sodium 5 MG Oral Tablet (Coumadin)Indicatio ns:Pulmonary embolism and infarction (HCC) Take 0.5-1 Tablets by mouth every evening. Or take as instructed by the [facility] 90 Tablet 3 08/09/2023 Active [...] as of this encounter (statuses as of 01/08/2024) Active Problems Problem Noted Date Diagnosed Date [...] obstruction/lower urinary tract symp toms Overview: Dr Oselinsky Spinal stenosis of lumbar re gion without [...] rinse after steroid. Test performed by Sameer SALES PLANNER CPFT Pleural plaque due to asbestos exposure Restrictive lung disease Overview: In Check dial performed to assess inhaler technique: 12/15/19 Name of inhalers Albuterol Pass: Yes at 60 L/min and Advair Pass: Yes at 60 L/min. Encouraged to to take deep breath, use aero chamber, and rinse after steroid. Test performed by Sameer SALES PLANNER CPFT Hx of pulmonary embolus 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 Overview: [place] C0-M6 documented as of this encounter (statuses as of 01/08/2024) Resolved Problems Problem Noted Date Diagnosed Date [...] 08/22/2005 04/05/2016 Anal fissure 06/04/2005 10/16/2007 terminal carman current use of ant icoagulant therapy 05/30/2005 [...] as of this encounter (statuses as of 01/08/2024) Immunizations Name Administration Dates Next Due COVID-19 mRNA, LNP-s, No Pre serve, 2-Dose Series ([place]) 12/01/2021,01/16/2021,12/26/2020 COVID-19, LNP-s, No Preserve , Ozzy-sucrose, Ages 12+ ([place]) 12/01/2021 COVID-19, MRNA-LNP, 23-24, P F, 30 MCG/0.3 mL, 12 YRS AND ABOVE, IM ([facility] 09/18/2023 Covid-19, Mrna, Lnp-s, Pf, B ivalent, 30 Mcg, IM, 12 yrs and above ([place]) 10/09/2022 Pneumococcal Conjugate Vacc, 13 Valent (Prevnar) [...] Team (Late st Contact Info) Description 01/14/2024 11:15 AM EST Cardiac Studies Cardiology [address] [place] [address] Og Frazier [facility] [address] [place] [address] 01/20/2024 6:30 AM EST Anticoagulation Pharmacy Call Center [address] [place] [address] [facility] 58 60 [facility] [place] [address] 02/03/2024 9:50 AM EDT Office Visit Ophthalmology, [facility] [address] [place] [address] Pablo Casanova, DO 16 [facility] [place] [address] 02/06/2024 10:30 AM EDT Office Visit Cardiology, [facility] [address] [place] [address] Andres Rainey MD [address] [place] [address] 02/11/2024 9:40 AM EDT Office Visit Family Medicine [address] [place] [phone] Bell Mcqueen MD [address] [place] [address] [place] [address] 08/10/2024 1:40 PM EDT Office Visit Rheumatology [address] [place] [phone] Win Nielsen MD [facility]0 [facility] [place] [address] Scheduled Procedures Name Priority Associated Diagnoses Date/Ti me ESOPHAGOGASTRODUODENOSCOPY ( EGD), FLEXIBLE, TRANSORAL, DIAGNOSTIC Recall Stark's esophagus with dysplasia Health Maintenance Due Date Last Done Comments Depression Screening 07/12/2021 07/12/2020 CKD PHOS USE SMARTSET 23923 08/21/2022 100 02/2021, 07/12/2020, 03/13/2019, Additional history exists *BISPHONATE OR OTHER ACCEPTABLE MEDICATION NEEDED FOR OSTEOPOROSIS (REFER TO SMARTSET #1146) 10/14/2023 Albumin/Creatinine Ratio 04/22/2024 023, 05/24/2022, 03/26/2022, Additional history exists TSH 10/08/2024 10/08/2023, 10/0 01/2023, 06/19/2023, Additional history exists CKD HGB USE SMARTSET 35482 01/07/202501/07, 01/07/2024, 01/01/2024, Additional history exists Stark's Esophagus Surveilance 02/26/2025 02/26/2022, 02/26/2022, 07/04/2021, Additional history exists DXA Scan 07/05/2025 07/05/2023, 10/19, 11/04/2018, Additional history exists DTaP,Tdap,and Td Vaccines (2 - Td or Tdap) 08/19/2027 08/19/2017, 08/20/2008 Pneumococcal Vaccine: 65+ Years Completed 06/23/2015, 05/14/2013, 04/18/2004 Zoster Vaccines Completed 12/02/2020, 08/15/2020 VITAMIN D LEVEL ONCE IN A LIFETIME-USE SMARTSET# [id number] Completed 04/22/2023, 08/28/2021, 07/14/2015 Influenza Vaccine (FLU [...] this encounter Medical Devices Implanted Type Area Stoper Device Identifier Shelf Expiration Date Model / Serial / Lot Power Port 8fr Sngl Lumen Plas - [id number] Implanted:Qty: 1 on 02/22/2022 at [facility] CR [employer]ARD : PERIPHERAL VASCULAR [id number] 02/15/2023 [id number] / / [id number] documented as of this encounter Advance Directives Latest Code Status on File Code Status Date Activated Date Inactivated Comments Full Code 09/03/2007 7:29 AM 09/03/2007 4:02 PM Care Teams Hot Walker Relationship Specialty Start Date End Date Juancho Romero MD [address] [place] [address] [place] [address] PCP - General Family Medicine 12/27/16 documented as of this encounter
--- OUTSIDE RECORDS SUMMARY | 2024-01-23 20:55 | External Medical Summary | Summary of Care ---
Author Name Unknown Organization [facility] Address [address] [place] [address] Phone [phone] Care Team Providers Care Telemarketer Name Role Phone Juancho Romero MD Primary [...] stage 3a chronic kidney disease (HCC) Procedures HI INJ RETACRIT NON-ESRD USE HI THERAPEUTIC PROPHYLACTIC/DX INJECTION SUBQ/IM HI EPOETIN IVAN, NON-ESRD Ludwig Louis MD 200 [facility] [place] [address] Anc Hem/Onc Dony Hickman DEPT CLOSED - 10/01/23 [address] [place] [address] Referral ID Status Reason Start Date Expiration Date V isits Requested Visits Authorized [id number] Authorized 11/22/2023 02/14/[phone] Encounter Details Date Type Department Care Team (Late st Contact Info) Description 01/08/2024 11:00 AM EST Immunization/I njection Hematology/Oncology Treatment, [place] [address] [place] [address] Nurse, Med [address] [place] [address] Encounter for central line care*; Carcinoma of [...] albuterol 120 mL 5 11/21/2022 Active Ipratropium [place] 0.02 % Inhalation Solution (Atrovent)Indicatio ns:Moderate persistent [...] Respimat 2.5 MCG/ACT Inhalation Aerosol Solution (Tiotropium [place] Monohydrate)Indicat ions:Moderate persistent asthma without complication INHALE 2 PUFFS BY MOUTH EVERY DAY 12 g 3 04/30/2023 Active Warfarin Sodium 5 MG Oral Tablet (Coumadin)Indicatio ns:Pulmonary embolism and infarction (HCC) Take 0.5-1 Tablets by mouth every evening. Or take as instructed by the [facility] 90 Tablet 3 08/09/2023 [...] and rinse after steroid. Test performed by A.Baxley CONTROL ROOM SUPERVISOR CPFT Hx of pulmonary embolus 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 Overview: [place] C0-M6 documented as of this encounter (statuses [...] Malignant neoplasm of prostate 09/23/2008 03/27/2018 Overview: [place] grade 3 Atrial flutter 09/02/2007 10/16/2007 Herpes simplex virus infection 08/22/2005 04/05/2016 Anal fissure 06/04/2005 10/16/2007 meterman current use of ant icoagulant therapy 05/30/2005 [...] mRNA, LNP-s, No Pre serve, 2-Dose Series ([place]) 12/01/2021,01/16/2021,12/26/2020 COVID-19, LNP-s, No Preserve , Ozzy-sucrose, Ages 12+ ([place]) 12/01/2021 COVID-19, MRNA-LNP, 23-24, P F, 30 MCG/0.3 mL, 12 YRS AND ABOVE, IM ([facility]) 09/18/2023 Covid-19, Mrna, Lnp-s, Pf, B ivalent, 30 Mcg, IM, 12 yrs and above ([place]) 10/09/2022 Pneumococcal Conjugate Vacc, 13 Valent (Prevnar) [...] as of this encounter Nursing Notes * Kimberly Cao, [...] Description 01/14/2024 11:00 AM EST Laboratory Laboratory [address] [place] [phone] [place] [address] 01/14/2024 11:15 AM EST Cardiac Studies Cardiology [address] [place] [address] [place], [facility] 132 [facility] [place] [address] 01/15/2024 11:00 AM EST Immunization/Injection Hematology/Oncology Treatment, [place] [address] [place] [phone] Nurse, Med 4 [address] [facility] [address] 01/20/2024 6:30 AM EST Anticoagulation Pharmacy Call Center WB [address] [facility] [place] [address] [facility] 58 60 [facility] [place] [address] 01/21/2024 9:00 AM EST Laboratory Laboratory [address] [place] [phone] [place] [address] 01/22/2024 9:30 AM EST Immunization/Injection Hematology/Oncology Treatment, [place] 200 [place] [phone] Nurse, Med 4 200 [facility] [place] [address] 01/28/2024 9:10 AM EDT Laboratory Laboratory [address] [place] [phone] [place] [address] 01/29/2024 10:30 AM EDT Immunization/Injection Hematology/Oncology Treatment, [place] 200 [place] [phone] Nurse, Med 4 200 [facility] [place] [address] 02/03/2024 9:50 AM EDT Office Visit Ophthalmology, [facility] 132 [facility] [place] [address] Pablo Casanova T, [address] [address] 02/06/2024 10:30 AM EDT Office Visit Cardiology, [facility] 132 [facility] [place] [address] Andres Rainey MD 132 [facility] [place] [address] 02/11/2024 9:40 AM EDT Office Visit Family Medicine [address] [place] [phone] Bell Mcqueen MD [address] [place] [address] [place] [address] 02/19/2024 11:00 AM EDT Immunization/Injection Hematology/Oncology Treatment, [place] [address] [place], [place] [phone] Nurse, Med 4 200 [facility] [place] [address] 05/13/2024 11:00 AM EDT Office Visit Hematology/Oncology [facility] [place] 200 [facility] [place] [phone] Ludwig Louis MD 200 [facility] [place] [address] 08/10/2024 1:40 PM EDT Office Visit Rheumatology [address] [place] [phone] Win Nielsen MD [facility]0 [facility] [place] [address] Scheduled Procedures Name Priority Associated Diagnoses Date/Ti me ESOPHAGOGASTRODUODENOSCOPY ( EGD), FLEXIBLE, TRANSORAL, DIAGNOSTIC Recall Stark's esophagus with dysplasia Health Maintenance Due Date Last Done Comments Depression Screening 07/12/2021 07/12/2020 CKD PHOS USE SMARTSET 21509 08/21/[address] 02/2021, 07/12/2020, 03/13/2019, Additional history exists *BISPHONATE OR OTHER ACCEPTABLE MEDICATION NEEDED FOR OSTEOPOROSIS (REFER TO SMARTSET #1146) 10/14/2023 Albumin/Creatinine Ratio 04/22/20242 023, 05/24/2022, 03/26/2022, Additional history exists TSH 10/08/2024 10/08/2023, 0 01/2023, 06/19/2023, Additional history exists CKD HGB USE SMARTSET 17044 01/07/202501/07, 01/07/2024, 01/01/2024, Additional history exists Stark's Esophagus Surveilance 02/26/2025 02/26/2022, 02/26/2022, 07/04/2021, Additional history exists DXA Scan 07/05/2025 07/05/2023, 10/19, 11/04/2018, Additional history exists DTaP,Tdap,and Td Vaccines (2 - Td or Tdap) 08/19/2027 08/19/2017, 08/20/2008 Pneumococcal Vaccine: 65+ Years Completed 06/23/2015, 05/14/2013, 04/18/2004 Zoster Vaccines Completed 12/02/2020, 08/15/2020 VITAMIN D LEVEL ONCE IN A LIFETIME-USE SMARTSET# [id number] Completed 04/22/2023, 08/28/2021, 07/14/2015 Influenza Vaccine (FLU [...] this encounter Medical Devices Implanted Type Area Fiberglass Finisher Device Identifier Shelf Expiration Date Model / Serial / Lot Power Port 8fr Sngl Lumen Plas - [id number] Implanted:Qty: 1 on 02/22/2022 at [facility] CR [facility]ARD : PERIPHERAL VASCULAR [id number] 02/15/2023 [id number] / / [id number] documented as of this encounter Visit Diagnoses Diagnosis Encounter for central line care- Primary Fitting and adjustment of vascular catheter Carcinoma of bladder (HCC) Malignant neoplasm of bladder, part unspecified Iron deficiency anemia, unspecified iron deficiency anemia type Chronic kidney disease, stage 3b (HCC) 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 Given 01/08/2024 11:05 AM EST 500 Units sodium chloride 0.9 % flush central line 10 mL 10 mL, IV Push, PRN Other, IV Flush, Starting on Sat01/08/24 at 1041, Until Marilin 01/09/24 at 1040, For 24 hours, Do not flush if lock, PICC, or central line not in place; IV infusing or unable to flush. Given 01/08/2024 11:05 AM EST 10 mL Inactive Administered Medications - up to 3 most recent administrations Medication Order MAR Action Action Date Dose Rate Site Epoetin Ivan [address] UNIT/ML inj 40,000 Units 40,000 Units, Subcutaneous, ONCE, On Sat01/08/24 at 1130, For 1 dose Given 01/08/2024 11:05 AM EST 40,000 Units Arm Right Upper documented in this encounter Advance Directives Latest Code Status on File Code Status Date Activated Date Inactivated Comments Full Code 09/03/2007 7:29 AM 09/03/2007 4:02 PM Care Teams Telemarketer Relationship Specialty Start Date End Date Juancho Romero MD [address] [place] [address] [place] [id number] PCP - General Family Medicine 12/27/16 documented as of this encounter
--- OUTSIDE RECORDS SUMMARY | 2024-01-23 20:55 | External Medical Summary ---
Author Name Unknown Address Unknown Organization K01:[facility] [address] [facility] [address] [place] [address] Laboratory Report Ordering Provider Test Date Status ADRIENNE SALCIDO 01/07/2024 10:36:53 Final Observation Date Value Abnormality Reference (Units ) Status WBC, Total 01/07/2024 10:36:53 5.52 4.00-10.80 (K/uL) Final RBC 01/07/2024 10:36:53 3.47 4.50-5.25 (M/uL) Final Hemoglobin 01/07/2024 10:36:53 10.3 Below low normal 14.0-16.8 (g/dL) Final HCT 01/07/2024 10:36:53 34.4 Below low normal 40.0-48.4 (%) Final MCV 01/07/2024 10:36:53 99.1 82.0-99.5 (fL) Final MCH 01/07/2024 10:36:53 29.7 27.0-34.0 (pg) Final MCHC 01/07/2024 10:36:53 29.9 32.0-36.0 (g/dL) Final RDW 01/07/2024 10:36:53 17.3 11.5-15.5 (%) Final Platelets 01/07/2024 10:36:53 112 Below low normal 140-400 (K/uL) Final MPV 01/07/2024 10:36:53 10.5 6.6-11.1 (fL) Final Nucleated erythrocytes/100 leukocytes [Ratio] in Blood by Automated count 01/07/2024 10:36:53 0 <=0 (/100 WBCs) Final Performing Location [facility] [place] [address] [place] [address]
--- OUTSIDE RECORDS SUMMARY | 2024-01-23 20:55 | External Medical Summary | Summary of Care ---
Author Name Unknown Organization [facility] Address [address] [place] [address] Phone [phone] Care Team Providers Care Immigration Manager Name Role Phone Juancho Romero MD Primary Care Provider Encounter Details Date Type Department Care Team (Late st Contact Info) Description 01/08/2024 10:00 AM EST Office Visit Hematology/Oncology Dony Hickman [place] [address] [facility] [place] [phone] Ludwig Louis MD [address] [facility] [place] [address] Carcinoma of bladder (HCC)*; Anemia of chronic disease Allergies Active Allergy Reactions Criticality Noted Date [...] albuterol 120 mL 5 11/21/2022 Active Ipratropium [place] 0.02 % Inhalation Solution (Atrovent)Indicatio ns:Moderate persistent [...] Respimat 2.5 MCG/ACT Inhalation Aerosol Solution (Tiotropium [place] Monohydrate)Indicat ions:Moderate persistent asthma without complication INHALE 2 PUFFS BY MOUTH EVERY DAY 12 g 3 04/30/2023 Active Warfarin Sodium 5 MG Oral Tablet (Coumadin)Indicatio ns:Pulmonary embolism and infarction (HCC) Take 0.5-1 Tablets by mouth every evening. Or take as instructed by the [facility] 90 Tablet 3 08/09/2023 Active [...] rinse after steroid. Test performed by Sameer FIELD SUPPORT REPRESENTATIVE CPFT Pleural plaque due to asbestos exposure Restrictive lung disease Overview: In Check dial performed to assess inhaler technique: 12/15/19 Name of inhalers Albuterol Pass: Yes at 60 L/min and Advair Pass: Yes at 60 L/min. Encouraged to to take deep breath, use aero chamber, and rinse after steroid. 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 05/30/2005 [...] mRNA, LNP-s, No Pre serve, 2-Dose Series (Lockr) 12/01/2021,01/16/2021,12/26/2020 COVID-19, LNP-s, No Preserve , Ozzy-sucrose, Ages 12+ (Lockr) 12/01/2021 COVID-19, MRNA-LNP, 23-24, P F, 30 MCG/0.3 mL, 12 YRS AND ABOVE, IM ([facility]) 09/18/2023 Covid-19, Mrna, Lnp-s, Pf, B ivalent, 30 Mcg, IM, 12 yrs and above (Lockr) 10/09/2022 Pneumococcal Conjugate Vacc, 13 Valent (Prevnar) [...] Smoking Tobacco: Never Smokeless Tobacco: Current Snuff Tobacco Cessation:Ready to Q uit: Not Asked; Counseling Given: Not Answered Comments:One can every couple of days x 50 yrs. Alcohol Use [...] Sign Reading Time Taken Comments Blood Pressure 98/57 01/08/2024 10:01 AM EST Pulse 85 01/08/2024 10:01 AM EST Temperature 36.6 C (97.8 F) 01/08/2024 10:[address] Respiratory Rate 18 01/08/2024 10:01 AM EST Oxygen Saturation 95% 01/08/2024 10:01 AM EST Inhaled Oxygen Concentration - - Weight 64.5 kg (142 lb 3.2 oz) 01/08/2024 10:01 AM EST Height - - Body Mass Index 25.19 09/19/2023 10:34 AM EDT documented in this encounter Progress Notes * Ludwig Louis MD - 01/08/2024 10:10 AM EST Images from the original note were not included. Outpatient Consult Note Data Source: Patient, Epic record. Data Source: Patient, Epic record. 01/08/2024 10:10 AM Patrick Kingsley Robles [id number] 88 year old Patient Encounter: HEMATOLOGY/ONCOLOGY [facility] Cancer Diagnosis: Recurrent Urothelial carcinoma of bladder Anemia Current Treatment: Keytruda, received 1st dose on 03/02/2022 to 04/23/2023 then it was discontinued because of the question of myocarditis On Retacrit Previous Treatment: Low does gemcitabine concurrent with radiation therapy. Received last dose of gemcitabine on 10/03/2021 Oncologic History : 88-year-old male with a past medical history significant for COPD, GERD, CKD paroxysmal supraventricular tachycardia, history of pulmonary embolism, Stark's esophagus, partial colectomy (for tubovillous adenoma), mitral valve repair, aortic valve replacement, hernia repair, total left knee replacement and pacemaker placement. Patient was evaluated at [facility] ER on 04/11/2021 complaining of hematuria. Patient was evaluated at [facility] ER on 04/11/2021 complaining of hematuria. ER records reviewed. Patient was afebrile WBCs of 5.38 and creatinine of 1.24. Urinalysis of 04/11/2021 noted 3+ blood, 1+ leukocytes, 10-30 WBCs, greater than 30 RBCs and was negative for nitrite and bacteria. CT abdomen/pelvis of 04/11/2021 noted a 2 mm nonobstructing calculus is noted in the left kidney and at least 2 nonobstructing right renal calculiwhich measure up to 4 mm. The unenhanced kidneys demonstrate mild cortical atrophy and are and without hydronephrosis and no evidence of contour deforming renal mass lesion is noted. The bladder alva thickened and trabeculated indicating chronic outlet obstruction. A 2.1 cm soft tissue lesion issuspected along the posterior right wall of the bladder. Patient had cystoscopy done on 05/29/2021 and shows Large tumor lateral and superior to right trigone measuring approximately 6.2 cm.Large tumor involving majority of right anterior wall, right bladder neck, and possible involvement of prostate. Total tumor measures approximately 6.8 cm. Multiple bladder stones/calcifications likely calcified areas from bladder tumor with stones attached to tumoras well as within the bladder. Pathology is consistent with the invasive high-grade papillary urothelial carcinoma with the area of muscular invasion: FINAL DIAGNOSIS A. Bladder stones, chemical analysis: - Gross exam only (see gross description) B. Bladder, right neck, transurethral resection: - Invasive high grade papillary urothelial carcinoma - Detrusor muscle (muscularis propria) is present with focal invasion C. Prostate, right, transurethral resection: - Non-invasive high grade urothelial carcinoma - Prostatic tissue is not identified D. Bladder, deep neck, transurethral resection: - Invasive high grade papillary urothelial carcinoma - Detrusor muscle (muscularis propria) is present with invasion E. Bladder, right trigone, transurethral resection: - Non-invasive high grade papillary urothelial carcinoma - Detrusor muscle (muscularis propria) is absent Patient denies any headache, dizziness, blurred vision, chest pain, palpitation abdominal pain or distention, bleeding, hematuria, nausea, vomiting, weight loss. He had follow-up CT scan done on 06/20/2021: No acute intrathoracic abnormality. No adenopathy or evidence of pulmonary metastatic disease. CT abdomen pelvis with contrast dated 06/20/2021: Nonobstructing nephrolithiasis is seen on the right and large prostate gland with mild diffuse thickening of urinary bladder wall which might represent cystitis versus other etiology. Nondilated loops of bowel. Postoperative changes in the colonic anastomosis in the again. 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 Small fat containing hiatal hernia. Redemonstration of four-chamber cardiomegaly with postoperative changes. No cholecystitis. Consider sclerotic involvement of the aorta with few areas of fusiform ectasia. Dilated right iliac artery. Patient denies smoking, history of tobacco chewing for about 60 years and social alcohol consumption. Family history significant for the brother was diagnosed of esophageal cancer Patient developed issues with bleeding and reoccurrence of lesion. Underwent resection due to bleeding ulcerated mass. Resection showed active high-grade muscle invasive disease with deep resection. Pathology the lesion was consistent with high-grade invasive urothelial carcinoma. Tumor invades muscularis propria. Case #: [id number] Collected: 12/18/21 Received: 12/18/21 FINAL DIAGNOSIS A. Bladder, right lateral wall, deep, transurethral resection: - High grade invasive urothelial carcinoma. - Tumor invades muscularis propria (AJCC: pT2). B. Bladder, right lateral wall, transurethral resection: - High grade invasive urothelial carcinoma. - Tumor invades muscularis propria (AJCC: pT2). Patient was seen Dr. Hogue and because of the other comorbid condition he recommend immunotherapy. Pt had cystoscopy on 04/04/22 at [facility] Urology w/ Dr. Erlin Hogue: Last cystoscopy was done on 07/04/2022 which revealed no sign of mass lesion tumor or other areas of concern. Multiple areas of scarring throughout the bladder with no masses or tumors. Recent cystoscopy was done on 05/27/2023 and following was the finding. "Mild irritation and varicosities around bladder neck with some mild lateral lobe prostate enlargement. No masses tumors lesions or other areas concern within the bladder. No sign of enhancement on bluelight in hand cystoscopy" FINAL DIAGNOSIS Urine: - Atypical urothelial cells. - Changes consistent with instrumentation. Interval History: Overall clinically he is doing better with improvement in the energy level and without any new symptoms. Denies any hematuria, hematochezia, headache, blurred vision, chest pain, palpitation, abdominal pain, nausea, vomiting, fever, night sweats, weight loss. LABS/IMAGING: Results for orders placed or performed in visit on 01/07/24 LIPID PANEL WITH DIRECT LDL IF TG IS HIGH Result Value Ref Range Triglycerides 63 <=174 mg/dL Cholesterol 104 <200 mg/dL HDL Cholesterol 52 >39 mg/dL Non-HDL Cholesterol 52 <=159 mg/dL LDL Cholesterol 39 <=129 mg/dL CBC Result Value Ref Range WBC 5.52 4.00 - 10.80 K/uL RBC 3.47 4.50 - 5.25 M/uL HGB 10.3 (L) 14.0 - 16.8 g/dL HCT 34.4 (L) 40.0 - 48.4 % MCV 99.1 82.0 - 99.5 fL MCH 29.7 27.0 - 34.0 pg MCHC 29.9 32.0 - 36.0 g/dL RDW 17.3 11.5 - 15.5 % PLT 112 (L) 140 - 400 K/uL MPV 10.5 6.6 - 11.1 fL nRBCs 0 <=0 /100 WBCs DIFFERENTIAL, AUTOMATED Result Value Ref Range WBC 5.52 4.00 - 10.80 K/uL Neutrophils % 77.0 (H) 40.0 - 75.0 % Lymphocytes % 10.9 (L) 18.0 - 42.0 % Monocytes % 8.5 1.0 - 11.0 % Eosinophils % 1.4 0.0 - 6.0 % Basophils % 0.9 0.0 - 2.0 % Immature Granulocytes % 1.3 0.0 - 2.0 % Absolute Neutrophils 4.25 1.80 - 7.70 K/uL Absolute Lymphocytes 0.60 (L) 1.00 - 4.80 K/ul Absolute Monocytes 0.47 0.00 - 1.10 K/uL Absolute Eosinophils 0.08 0.00 - 0.70 K/uL Absolute Basophils 0.05 0.00 - 0.20 K/uL Absolute Immature Granulocytes 0.07 0.00 - 0.20 K/uL *Note: Due to a large number of results and/or encounters for the requested time period, some results have not been displayed. A complete set of results can be found in Results Review. Blood test done yesterday shows hemoglobin of 10.3. REVIEW OF SYSTEMS: General: No Fever, chills, night sweats, or weight loss. HEENT: No change in visual acuity, blurred or double vision. No epistaxis, facial pain, nasal discharge or change in hearing. Denies dysphagia, no muscosal ulceration, or sores noted. Cardiovascular: No chest pain, ROMERO, or palpitations Respiratory: Stable shortness of breath, No cough, hemoptysis, or pleuritic chest pain Gastrointestinal: No abdominal pain, nausea, vomiting, diarrhea, rectal pain or bleeding Genitourinary: Denies Hematuria or dysuria Musculoskeletal: No bone pain Psychiatric: No vegetative signs of depression Endocrine: No symptoms of hypothyroidism or hyperglycemia Hematologic: No bleeding or lymph nodes noted As mentioned above, all of the systems were reviewed in full and are unremarkable. 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 Admitted [facility] EP study with ablation by Dr Gallardo 09/02/07 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 Foss C0-M6 Benign neoplasm of colon 03/09/2002 Benign [...] I impaired relaxation Long-segment Stark's esophagus 07/28/2020 Foss C0-M5 Malignant neoplasm of prostate (HCC) 09/23/2008 [place] grade 3 Malignant neoplasm of sigmoid colon (HCC) [address] ham at [place] Moderate persistent asthma without complication Paroxysmal SVT (supraventricular tachycardia) 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, 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/2007 Pulmonary arterial hypertension (HCC) Pulmonary embolus (HCC) Pulmonary hypertension (HCC) 04/26/2021 43 mm Restrictive lung disease SBE (subacute bacterial endocarditis) prophylaxis candidate Septic shock (HCC) 11/18/2016 [facility] transferred from [place] Spinal stenosis of lumbar region without neurogenic claudication Stage 3b chronic kidney disease (HCC) 09/11/2022 EGFR 44 Tobacco use disorder Undiagnosed cardiac murmurs Urothelial carcinoma of bladder (HCC) 04/11/2021 high grade invasive papillary urothelial carcinoma Ventricular tachycardia (HCC) 08/2014 while admitted for PE; w/u [place] Current Outpatient Medications Medication Sig Dispense Refill [...] Mix with albuterol 120 mL 5 Ipratropium [place] 0.02 % Inhalation Solution (Atrovent) Inhale 2.5 mL via nebulizer in the morning and 2.5 mL at noon and 2.5 mL in the evening and 2.5 mL before bedtime. Mix with albuterol solution. 75 mL 12 traMADol HCl 50 MG Oral Tablet (Ultram) Take 1 Tablet by mouth every 6 hours as needed for Pain, Severe. 60 Tablet 0 Ferrous Sulfate 325 (65 Fe) MG Oral Tablet (Feosol) TAKE ONE TABLET BY MOUTH WITH FOOD DAILY 90 Tablet 3 Spiriva Respimat 2.5 MCG/ACT Inhalation Aerosol Solution (Tiotropium [place] Monohydrate) INHALE 2 PUFFS BY MOUTH EVERY DAY 12 g 3 Warfarin Sodium 5 MG Oral Tablet (Coumadin) Take 0.5-1 Tablets by mouth every evening. Or take as instructed by the [facility] 90 Tablet 3 Spironolactone 25 [...] PRIOR TO BREAKFAST/OTHER MEDS 90 Tablet 0 No current facility-administered medications for this visit. Social History Tobacco Use Smoking status: Never Smokeless tobacco: Current Types: Snuff Tobacco comments: One can every couple of days x 50 yrs. Vaping Use Vaping Use: Never used Substance Use Topics Alcohol use: Not Currently Drug use: No Review of patient's allergies indicates: Allergen Reactions Penicillins Other (Please comment) and Rash Eyes swell Pollen Wound Dressing Adhesive Rash Patient reported PHYSICAL EXAMINATION: General Appearance: Healthy appearing patient in no acute distress BP 98/57 (BP Site: Left Arm, BP Position: Sitting, BP Cuff Size: Regular) | Pulse 85 | Temp 36.6 C (97.8 F) (Oral) | Resp 18 | Wt 64.5 kg (142 lb 3.2 oz) | SpO2 95% | BMI 25.19 kg/m | BSA 1.69 m Vitals reviewed. HEENT: No oral or pharyngeal masses, ulceration or thrush noted, no sinus tenderness. Neck is supple with no thyromegaly or JVD noted. Lymph Nodes: No lymphadenopathy noted in the occipital, pre and post auricular, cervical, supra andinfraclavicular, axillary, epitrochlear, inguinal, and popliteal region. Lungs/Thorax: Clear to auscultation, no accessory muscles of respiration being used. Heart: Regular rate and rhythm, normal S1, S2, murmer Abdomen: Soft, nontender, bowel sounds present, no appreciable hepatosplenomegaly, no palpable masses Extremeties: Good pulses bilaterally, no peripheral edema. ASSESSMENT: 88-year-old male with history of multiple medical problem including COPD, GERD, CKD paroxysmal supraventricular tachycardia, history of pulmonary embolism, Stark's esophagus, partial colectomy (fortubovillous adenoma), mitral valve repair, aortic valve replacement, hernia repair, total left kneereplacement and pacemaker placement presented with hematuria and was found to have a mass in the bladder. He underwent resection and pathology is consistent with high-grade papillary carcinoma with muscular invasion. Because of his age and other comorbid condition, not good candidate for surgical resection/cystectomy. Patient was seen by and the decision was to treat him with low-dose gemcitabine concurrent with radiation therapy. Patient was treated with the low-dose gemcitabine initially twice a week concurrent with radiation therapy but because of the side effects and bone marrow toxicity, it was changed to once a week. Received last dose of gemcitabine 10/03/2021. Patient had follow-up cystoscopy done on 12/18/2021 which shows recurrent disease and biopsy was positive with high-grade invasive urothelial carcinoma, tumor invades muscularis propria stage T2. He had a CT scan of the chest and pelvis done on 01/25/2022 which shows no evidence of disease or disease progression. There was 1 cm lung nodule which is stable since 09/06/2014. He was treated with Keytruda with excellent response. He received Keytruda over year. Received lastdose on 04/23/2023. There was a question of myocarditis and on the recommendation of Cardiology, Keytruda was discontinued. Overall clinically he is doing well without any new symptoms complain. Last cystoscopy was done on 10/01/2023 and was negative. He is scheduled for the neck cystoscopy in January 2024. Currently he is receiving weekly Retacrit to maintain the hemoglobin around 11. Discussed with the patient about the diagnosis reviewed all the available blood test result with him. For now will continues current treatment. PLAN: Return clinic in 4 months with CBC, CMP. The patient voiced understanding of all of the above. All questions and concerns were addressed in an apparently satisfactory manner. Ludwig Louis MD (This note was completed using the dictation program Fluency Direct. As such, there may be misspellings, word substitutions, or other variations that should not change the essence of the clinical content of this encounter note. If there is need for further clarification, please direct questions to me.) documented in this encounter Nursing Notes * Venecia Infante LPN - 01/08/2024 10:03 AM EST Patient identifed by name and birthdate Do you have any concerns about pain management for today's visit? No Patient denies any complaint of dizziness or lightheadedness at this time. Living Will or Advance Directive for Health Care as noted on the problem list. [facility] is a way you can talk to your provider on line through e-mail. Would you like to sign up? I can activate it for you? ALREADY ACTIVE Filed Vitals: 01/08/24 1001 BP: 98/57 Pulse: 85 Resp: 18 Temp: 36.6 C (97.8 F) TempSrc: Oral SpO2: 95% Weight: 64.5 kg (142 lb 3.2 oz) Patient was instructed to not get up on the exam table/exam chair until directed and assisted by their provider; patient is to remain seated in the chair/ wheelchair/ exam table/ exam chair for fall prevention and safety reasons. Patient is aware to have assistance to step down off exam table/exam chair with personnel. Patient voiced full comprehension of instructions. documented in this encounter Plan of Treatment Upcoming Encounters Date Type Department Care Team (Latest Contact Info) Description 01/08/2024 11:00 AM EST Immunization/Injection Hematology/Oncolo gy Treatment, [place] [address] [place] [phone] Nurse, [facility] [address] [facility] [address] Encounter for central line care* 01/14/2024 11:15 AM EST Cardiac Studies Cardiology [address] [place] [address] [place], [facility] [address] [facility] [place] [address] 01/20/2024 6:30 AM EST Anticoagulation Pharmacy Call Center [phone] [place] [address] [facility] 58 [address] [facility] [place] [address] 02/03/2024 9:50 AM EDT Office Visit Ophthalmology, [facility] [address] [facility] [facility] [place] [address] Pablo Casanova, [address] [facility] [place] [address] 02/06/2024 10:30 AM EDT Office Visit Cardiology, [facility] [address] [facility] [place] [address] Andres Rainey MD [address] [facility] [place] [address] 02/11/2024 9:40 AM EDT Office Visit Family Medicine [address] [place] [phone] Bell Mcqueen MD [address] [place] [address] [place] [address] 08/10/2024 1:40 PM EDT Office Visit Rheumatology [address] [place] [phone] Win Nielsen MD [address] [place] [address] [place] [address] Scheduled Orders Name Type Priority Associated Diagnoses Orde r Schedule CBC WITH WBC DIFFERENTIAL Lab Routine Carcinoma of bladder (HCC) Anemia of chronic disease Expected: 04/27/2024, Expires: 10/06/2024 COMPREHENSIVE METABOLIC PANEL Lab Routine Carcinoma of bladder (HCC) Anemia of chronic disease Expected: 04/27/2024, Expires: 10/06/2024 Scheduled Procedures Name Priority Associated Diagnoses Date/Ti me ESOPHAGOGASTRODUODENOSCOPY ( EGD), FLEXIBLE, TRANSORAL, DIAGNOSTIC Recall Stark's esophagus with dysplasia Health Maintenance Due Date Last Done Comments Depression Screening 07/12/2021 07/12/2020 CKD PHOS USE SMARTSET 41753 08/21/2022 10/0 02/2021, 07/12/2020, 03/13/2019, Additional history exists *BISPHONATE OR OTHER ACCEPTABLE MEDICATION NEEDED FOR OSTEOPOROSIS (REFER TO SMARTSET #1146) 10/14/2023 Albumin/Creatinine Ratio 04/22/2024 023, 05/24/2022, 03/26/2022, Additional history exists TSH 10/08/2024 10/08/2023, 10/0 01/2023, 06/19/2023, Additional history exists CKD HGB USE SMARTSET 42429 01/07/202501/07, 01/07/2024, 01/01/2024, Additional history exists Stark's Esophagus Surveilance 02/26/2025 02/26/2022, 02/26/2022, 07/04/2021, Additional history exists DXA Scan 07/05/2025 07/05/2023, 10/19, 11/04/2018, Additional history exists DTaP,Tdap,and Td Vaccines (2 - Td or Tdap) 08/19/2027 08/19/2017, 08/20/2008 Pneumococcal Vaccine: 65+ Years Completed 06/23/2015, 05/14/2013, 04/18/2004 Zoster Vaccines Completed 12/02/2020, 08/15/2020 VITAMIN D LEVEL ONCE IN A LIFETIME-USE SMARTSET# [id number] Completed 04/22/2023, 08/28/2021, 07/14/2015 Influenza Vaccine (FLU [...] this encounter Medical Devices Implanted Type Area Electric Motor Winder Device Identifier Shelf Expiration Date Model / Serial / Lot Power Port 8fr Sngl Lumen Plas - [id number] Implanted:Qty: 1 on 02/22/2022 at [facility]ARD : PERIPHERAL VASCULAR [id number] 02/15/2023 [id number] / / [id number] documented as of this encounter Visit Diagnoses Diagnosis Carcinoma of bladder (HCC)- Primary Malignant neoplasm of bladder, part unspecified Anemia of chronic disease Anemia of other chronic disease Encounter for central line care- Primary Fitting and adjustment of vascular catheter documented in this encounter Advance Directives Latest Code Status on File Code Status Date Activated Date Inactivated Comments Full Code 09/03/2007 7:29 AM 09/03/2007 4:02 PM Care Teams Immigration Manager Relationship Specialty Start Date End Date Juancho Romero MD [address] [place] [address] [place] [address] PCP - General Family Medicine 12/27/16 documented as of this encounter
--- OUTSIDE RECORDS SUMMARY | 2024-01-23 20:55 | External Medical Summary | Summary of Care ---
Author Name Unknown Organization [facility] Address [address] [place] [address] Phone [phone] Care Team Providers Care Outreach Assistant Name Role Phone Juancho Romero MD Primary Care Provider [phone] Reason for Visit * Reason Comments eRx-Medication Refill Encounter Details Date Type Department Care Team (Late st Contact Info) Description 01/05/2024 Refill Hematology/Oncology [facility] [place] [address] [place] [address] Ludwig Louis MD [address] [place] [address] Carcinoma of bladder (HCC) Allergies Active Allergy Reactions Criticality Noted Date Comments Penicillins Other (Please comment),Rash High Eyes swell Pollen 05/03/2022 Wound Dressing Adhesive Rash 05/02/2023 Patient reported documented as of this encounter (statuses as of 01/06/2024) Medications Medication Sig Dispensed Refills Start Date [...] 11/30/2020 Active Vitamin B12 500 MCG Oral TabletIndications [...] albuterol 120 mL 5 11/21/2022 Active Ipratropium [place] 0.02 % Inhalation Solution (Atrovent)Indicat ions:Moderate persistent [...] Respimat 2.5 MCG/ACT Inhalation Aerosol Solution (Tiotropium [place] Monohydrate)Indic ations:Moderate persistent asthma without complication INHALE 2 PUFFS BY MOUTH EVERY DAY 12 g 3 04/30/2023 Active Rosuvastatin Calcium 10 MG Oral Tablet (Crestor) TAKE 1 TABLET BY MOUTH EVERY DAY 90 Tablet 1 05/27/2023 Active Warfarin Sodium 5 MG Oral Tablet (Coumadin)Indicat ions:Pulmonary embolism and infarction (HCC) Take 0.5-1 Tablets by mouth every evening. 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 45 Tablet 3 08/14/2023 Active Furosemide 40 MG Oral Tablet (Lasix)Indication s:Acute on chronic diastolic congestive heart failure (HCC) Take one tablet daily and as directed for weight gain 0 10/31/2023 Active guaiFENesin ER 600 MG Oral Tablet Extended Release 12 Hour (Humibid [place])Indications:Ac assiniboine and sioux cough Take 1 Tablet by mouth in [...] Active Zolpidem Tartrate 5 MG Oral Tablet (Ambien)Indicatio ns:Restless leg syndrome Take 1 Tablet by mouth at bedtime as needed for Sleep. 30 Tablet 0 12/17/2023 Active predniSONE 5 MG Oral Tablet (Deltasone) TAKE 1 TABLET BY MOUTH EVERY DAY 90 Tablet 2 12/17/2023 Active Erythromycin 5 MG/GM Ophthalmic Ointment Instill 0.25 Inches into eye at bedtime. 3.5 g 3 12/16/2023 Active Levothyroxine Sodium 125 MCG Oral Tablet (Levoxyl)Indicati ons:Carcinoma of bladder (HCC) TAKE 1 TAB BY MOUTH DAILY FIRST THING IN THE MORNING AT LEAST 30 MIN PRIOR TO BREAKFAST/OTHER MEDS 90 Tablet 0 01/06/2024 Active Levothyroxine Sodium 125 MCG Oral Tablet (Levoxyl)Indicati ons:Carcinoma of bladder (HCC) TAKE 1 TAB BY MOUTH DAILY FIRST THING IN THE MORNING AT LEAST 30 MIN PRIOR TO BREAKFAST/OTHER MEDS 90 Tablet 0 11/19/2023 01/06/20 24 Discontinued documented as of this encounter (statuses as of 01/06/2024) Active Problems Problem Noted Date Diagnosed Date [...] rinse after steroid. Test performed by Sameer OPTO MECHANICAL ENGINEER CPFT Pleural plaque due to asbestos exposure Restrictive lung disease Overview: In Check dial performed to assess inhaler technique: 12/15/19 Name of inhalers Albuterol Pass: Yes at 60 L/min and Advair Pass: Yes at 60 L/min. Encouraged to to take deep breath, use aero chamber, and rinse after steroid. 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 current use of ant icoagulant therapy [...] as of this encounter (statuses as of 01/06/2024) Immunizations Name Administration Dates Next Due COVID-19 mRNA, LNP-s, No Pre serve, 2-Dose Series ([employer]) 12/01/2021,01/16/2021,12/26/2020 COVID-19, LNP-s, No Preserve , Ozzy-sucrose, Ages 12+ (Pfizer) 12/01/2021 COVID-19, MRNA-LNP, 23-24, P F, 30 MCG/0.3 mL, 12 YRS AND ABOVE, IM ([facility]) 09/18/2023 Covid-19, Mrna, Lnp-s, Pf, B ivalent, 30 Mcg, IM, 12 yrs and above ([employer]) 10/09/2022 Pneumococcal Conjugate Vacc, 13 Valent (Prevnar) [...] encounter Miscellaneous Notes * Telephone Encounter - Rosalie Miramontes RN - 01/06/2024 8:30 AM ESTPending Prescriptions: Disp Refills Levothyroxine Sodium 125 MCG Oral Tablet [*90 Tab*0 Sig: TAKE 1 TAB BY MOUTH DAILY FIRST THING IN THE MORNING AT LEAST 30 MIN PRIOR TO BREAKFAST/OTHER MEDS * Telephone Encounter - Rosalie Miramontes RN - 01/06/2024 8:29 AM EST 10/08/23: TSH 6.87, T4 1.1 documented in this encounter Plan of Treatment Upcoming Encounters Date Type Department Care Team (Late st Contact Info) Description 01/07/2024 9:00 AM EST Laboratory Laboratory [address] [place] [phone] [place] [address] 01/08/2024 10:00 AM EST Office Visit Hematology/Oncology [facility] [address] [place] [address] Ludwig Louis MD 200 [facility] [place] [address] 01/08/2024 11:00 AM EST Immunization/Injecti on Hematology/Oncology Treatment, [place] [address] [place] [address] Nurse, Med 4 200 [facility] [place] [address] 01/14/2024 11:15 AM EST Cardiac Studies Cardiology [address] [place] [address] [facility] [address] [facility] [place] [address] 02/03/2024 9:50 AM EDT Office Visit Ophthalmology, [facility] [address] [facility] [place] [address] Pablo Casanova T, DO [address] [place] [address] 02/06/2024 10:30 AM EDT Office Visit Cardiology, [facility] [address] [facility] [place] [address] Andres Rainey MD [address] [place] [address] 02/11/2024 9:40 AM EDT Office Visit Family Medicine [address] [place] [phone] Bell Mcqueen MD [address] [place] [address] [place] [address] 08/10/2024 1:40 PM EDT Office Visit Rheumatology [address] [place] [phone] Win Nielsen MD [facility] [place] [address] Scheduled Procedures Name Priority Associated Diagnoses Date/Ti me ESOPHAGOGASTRODUODENOSCOPY ( EGD), FLEXIBLE, TRANSORAL, DIAGNOSTIC Recall Stark's esophagus with dysplasia Health Maintenance Due Date Last Done Comments Depression Screening 07/12/2021 07/12/2020 CKD PHOS USE SMARTSET 46660 08/21/2022 100 02/2021, 07/12/2020, 03/13/2019, Additional history exists *BISPHONATE OR OTHER ACCEPTABLE MEDICATION NEEDED FOR OSTEOPOROSIS (REFER TO SMARTSET #1146) 10/14/2023 Albumin/Creatinine Ratio 04/22/2024 023, 05/24/2022, 03/26/2022, Additional history exists TSH 10/08/2024 10/08/2023, 100 01/2023, 06/19/2023, Additional history exists CKD HGB USE SMARTSET 49356 01/01/202501/01, 01/01/2024, 12/25/2023, Additional history exists Stark's Esophagus Surveilance 02/26/2025 02/26/2022, 02/26/2022, 07/04/2021, Additional history exists DXA Scan 07/05/2025 07/05/2023, 10/19, 11/04/2018, Additional history exists DTaP,Tdap,and Td Vaccines (2 - Td or Tdap) 08/19/2027 08/19/2017, 08/20/2008 Pneumococcal Vaccine: 65+ Years Completed 06/23/2015, 05/14/2013, 04/18/2004 Zoster Vaccines Completed 12/02/2020, 08/15/2020 VITAMIN D LEVEL ONCE IN A LIFETIME-USE SMARTSET# [id number] Completed 04/22/2023, 08/28/2021, 07/14/2015 Influenza Vaccine (FLU [...] this encounter Medical Devices Implanted Type Area Consultant Device Identifier Shelf Expiration Date Model / Serial / Lot Power Port 8fr Sngl Lumen Plas - [id number] Implanted:Qty: 1 on 02/22/2022 at [facility] CR [facility] : PERIPHERAL VASCULAR [id number] 02/15/2023 [id number] / / [id number] documented as of this encounter Visit Diagnoses Diagnosis Carcinoma of bladder (HCC) Malignant neoplasm of bladder, part unspecified documented in this encounter Advance Directives Latest Code Status on File Code Status Date Activated Date Inactivated Comments Full Code 09/03/2007 7:29 AM 09/03/2007 4:02 PM Care Teams Outreach Assistant Relationship Specialty Start Date End Date Juancho Romero MD [address] [place] [address] [place] [address] PCP - General Family Medicine 12/27/16 documented as of this encounter
--- OUTSIDE RECORDS SUMMARY | 2024-01-23 20:55 | External Medical Summary ---
Author Name Unknown Address Unknown Organization K01:[facility] [place] [address] [facility] [place] [address] Laboratory Report Ordering Provider Test Date Status ADRIENNE SALCIDO 01/07/2024 10:36:53 Final Observation Date Value Abnormality Reference (Units ) Status SYNC LEUKOCYTES IN BLOOD BY AUTOMATED COUNT 01/07/2024 10:36:53 5.52 4.00-10.80 (K/uL) Final Segs 01/07/2024 10:36:53 77.0 Above high normal 40.0-75.0 (%) Final Lymphs % 01/07/2024 10:36:53 10.9 Below low normal 18.0-42.0 (%) Final Monos 01/07/2024 10:36:53 8.5 1.0-11.0 (%) Final Eosinophils 01/07/2024 10:36:53 1.4 0.0-6.0 (%) Final Basos 01/07/2024 10:36:53 0.9 0.0-2.0 (%) Final Immature Granulocyte, Percent 01/07/2024 10:36:53 1.3 0.0-2.0 (%) Final Absolute Segs 01/07/2024 10:36:53 4.25 1.80-7.70 (K/uL) Final Lymphs, absolute 01/07/2024 10:36:53 0.60 Below low normal 1.00-4.80 (K/ul) Final Monos, Abs 01/07/2024 10:36:53 0.47 0.00-1.10 (K/uL) Final Eos, Abs 01/07/2024 10:36:53 0.08 0.00-0.70 (K/uL) Final Basos, Abs 01/07/2024 10:36:53 0.05 0.00-0.20 (K/uL) Final Immature Granulocytes, Number 01/07/2024 10:36:53 0.07 0.00-0.20 (K/uL) Final Performing Location [facility] [place] [facility] [address]. [facility] [place] [address]
--- OUTSIDE RECORDS SUMMARY | 2024-01-23 20:55 | External Medical Summary | Summary of Care ---
Author Name Unknown Organization [facility] Address [address] [place] [address] Phone [phone] Care Team Providers Care Trauma Nurse Name Role Phone Juancho Romero MD Primary Care Provider Reason for Visit * Reason Comments Dosage Adjustment Via Phone (anticoag Cl inic) Encounter Details Date Type Department Care Team (Latest Contact Info) Description 01/06/2024 6:30 AM EST Anticoagulation Pharmacy Call Center [phone] [place] [address] [facility] [address] [place] [address] Hx of pulmonary embolus*; Longstanding persistent atrial [...] albuterol 120 mL 5 11/21/2022 Active Ipratropium [place] 0.02 % Inhalation Solution (Atrovent)Indicat ions:Moderate persistent [...] Respimat 2.5 MCG/ACT Inhalation Aerosol Solution (Tiotropium [place] Monohydrate)Indic ations:Moderate persistent asthma without complication INHALE 2 PUFFS BY MOUTH EVERY DAY 12 g 3 04/30/2023 Active Rosuvastatin Calcium 10 MG Oral Tablet (Crestor) TAKE 1 TABLET BY MOUTH EVERY DAY 90 Tablet 1 05/27/2023 Active Warfarin Sodium 5 MG Oral Tablet (Coumadin)Indicat ions:Pulmonary embolism and infarction (HCC) Take 0.5-1 Tablets by mouth every evening. 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 Test performed by Sameer AUTOMOTIVE GLASS MECHANIC CPFT Pleural plaque due to asbestos exposure Restrictive lung disease Overview: In Check dial performed to assess inhaler technique: 12/15/19 Name of inhalers Albuterol Pass: Yes at 60 L/min and Advair Pass: Yes at 60 L/min. Encouraged to to take deep breath, use aero chamber, and rinse after steroid. 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 Overview: [place] C0-M6 documented as of this encounter (statuses [...] mRNA, LNP-s, No Pre serve, 2-Dose Series ([employer]) 12/01/2021,01/16/2021,12/26/2020 COVID-19, LNP-s, No Preserve , Ozzy-sucrose, Ages 12+ ([employer]) 12/01/2021 COVID-19, MRNA-LNP, 23-24, P F, 30 MCG/0.3 mL, 12 YRS AND ABOVE, IM ([employer]) 09/18/2023 Covid-19, Mrna, Lnp-s, Pf, B ivalent, 30 Mcg, IM, 12 yrs and above ([employer]) 10/09/2022 Pneumococcal Conjugate Vacc, 13 Valent (Prevnar) [...] as of this encounter Progress Notes * Macie Wheeler saute chef - 01/06/2024 8:48 AM EST Contacts Type Contact Phone/Fax 01/06/2024 08:47 AM EST Phone (Outgoing) Patrick Robles" (Self) [phone] (H) Left Message Subjective Advised patient to contact Anticoagulation Clinic if any unusual bruising or bleeding, recent illness, changes in medication, or questions/concerns. PT/INR results, Coumadin dose instructions, and next PT/INR date communicated as noted by Pharmacist: Yes ELLIE BUNCH Tech 01/06/2024, 8:48 AM * Ingris Garcia [facility] - 01/06/2024 8:41 AM EST Coumadin Clinic (region specific) Objective Current Warfarin Dose As of 01/06/2024 Warfarin maintenance plan: 2.5 mg (5 mg x 0.5) every day INR Result As of 01/06/2024 INR goal: 2.0-3.0 INR used for dosin.7 (01/03/2024) Assessment & Plan Warfarin Plan As of 01/06/2024 Full warfarin instructions: 2.5 mg every day No change documented: Ingris Garcia RPh Next INR check: 01/17/2024 Repeat PT/INR in 2 week(s) Weekly dose: not changed Additional Dosing Information: Description Home center machine set up operator to contact patient with dose instructions as noted. Ingris Garcia RPh 01/06/2024, 8:41 AM documented in this encounter Plan of Treatment Upcoming Encounters Date Type Department Care Team (Late st Contact Info) Description 01/07/2024 9:00 AM EST Laboratory Laboratory [address] [place] [phone] [address] [place] [address] 01/08/2024 10:00 AM EST Office Visit Hematology/Oncology [facility] [address] [place] [address] Ludwig Louis MD 200 [facility] [place] [address] 01/08/2024 11:00 AM EST Immunization/Injecti on Hematology/Oncology Treatment, [place] [address] [place] [address] Nurse, Med 200 [facility] [place] [address] 01/14/2024 11:15 AM EST Cardiac Studies Cardiology [address] [place] [address] [place] [address] [place] [address] 02/03/2024 9:50 AM EDT Office Visit Ophthalmology, [facility] 132 [facility] [place] [address] Pablo Casanova, [facility] [address] 02/06/2024 10:30 AM EDT Office Visit Cardiology, [facility] 132 [facility] [place] [address] Andres Rainey MD 132 [facility] [place] [address] 02/11/2024 9:40 AM EDT Office Visit Family Medicine [address] [place] [phone] Bell Mcqueen MD [address] [place] [address] [place] [address] 08/10/2024 1:40 PM EDT Office Visit Rheumatology [address] [place] [phone] Win Nielsen MD [facility] [place] [address] Scheduled Procedures Name Priority Associated Diagnoses Date/Ti me ESOPHAGOGASTRODUODENOSCOPY ( EGD), FLEXIBLE, TRANSORAL, DIAGNOSTIC Recall Stark's esophagus with dysplasia Health Maintenance Due Date Last Done Comments Depression Screening 07/12/2021 07/12/2020 CKD PHOS USE SMARTSET 34342 08/21/[address] 02/2021, 07/12/2020, 03/13/2019, Additional history exists *BISPHONATE OR OTHER ACCEPTABLE MEDICATION NEEDED FOR OSTEOPOROSIS (REFER TO SMARTSET #1146) 10/14/2023 Albumin/Creatinine Ratio 04/22/2024 023, 05/24/2022, 03/26/2022, Additional history exists TSH 10/08/2024 10/08/2023, 100 01/2023, 06/19/2023, Additional history exists CKD HGB USE SMARTSET 61837 01/01/202501/01, 01/01/2024, 12/25/2023, Additional history exists Stark's Esophagus Surveilance 02/26/2025 02/26/2022, 02/26/2022, 07/04/2021, Additional history exists DXA Scan 07/05/2025 07/05/2023, 10/19, 11/04/2018, Additional history exists DTaP,Tdap,and Td Vaccines (2 - Td or Tdap) 08/19/2027 08/19/2017, 08/20/2008 Pneumococcal Vaccine: 65+ Years Completed 06/23/2015, 05/14/2013, 04/18/2004 Zoster Vaccines Completed 12/02/2020, 08/15/2020 VITAMIN D LEVEL ONCE IN A LIFETIME-USE SMARTSET# [id number] Completed 04/22/2023, 08/28/2021, 07/14/2015 Influenza Vaccine (FLU [...] this encounter Medical Devices Implanted Type Area Van Owner Operator Device Identifier Shelf Expiration Date Model / Serial / Lot Power Port 8fr Sngl Lumen Plas - [id number] Implanted:Qty: 1 on 02/22/2022 at [facility] [employer] : PERIPHERAL VASCULAR [id number] 02/15/2023 [id number] / / [id number] documented as of this encounter Procedures Procedure Name Priority Date/Time Associated Diagnosis Comments OUTSIDE LAB-PT/INR Routine 01/03/2024 documented in this encounter Results * OUTSIDE LAB-PT/INR (01/03/2024) INR-OUTSIDE LAB 2.7 HOME FINGERSTIC K DEVICE History Per Patient LABORATORY HOME FINGERSTICK DEVICE documented in this encounter Visit Diagnoses Diagnosis Hx of pulmonary embolus- Primary Personal history of pulmonary embolism Longstanding persistent atrial fibrillation (HCC) documented in this encounter Advance Directives Latest Code Status on File Code Status Date Activated Date Inactivated Comments Full Code 09/03/2007 7:29 AM 09/03/2007 4:02 PM Care Teams Trauma Nurse Relationship Specialty Start Date End Date Juancho Romero MD [address] [place] [address] [place] [address] PCP - General Family Medicine 12/27/16 documented as of this encounter
--- OUTSIDE RECORDS SUMMARY | 2024-01-23 20:55 | External Medical Summary | Summary of Care ---
Author Name Unknown Organization [facility] Address [address] [place] [address] Phone [phone] Care Team Providers Care Assistant Director Of Admissions Name Role Phone Juancho Romero MD Primary Care Provider Reason for Visit * Reason Onset Date Comments Test Results Imaging Study 01/06/2024 Encounter Details Date Type Department Care Team (Late st Contact Info) Description 01/06/2024 Telephone Hematology/Oncology [facility] [address] [place] [address] Ludwig Louis MD [address] [place] [address] Test Results Imaging Study Allergies Active Allergy Reactions Criticality Noted Date [...] albuterol 120 mL 5 11/21/2022 Active Ipratropium [place] 0.02 % Inhalation Solution (Atrovent)Indicatio ns:Moderate persistent [...] Respimat 2.5 MCG/ACT Inhalation Aerosol Solution (Tiotropium [place] Monohydrate)Indicat ions:Moderate persistent asthma without complication INHALE 2 PUFFS BY MOUTH EVERY DAY 12 g 3 04/30/2023 Active Warfarin Sodium 5 MG Oral Tablet (Coumadin)Indicatio ns:Pulmonary embolism and infarction (HCC) Take 0.5-1 Tablets by mouth every evening. Or take as instructed by the [facility] 90 Tablet 3 08/09/2023 Active [...] rinse after steroid. Test performed by Sameer LAND ACQUISITION MANAGER CPFT Pleural plaque due to asbestos exposure Restrictive lung disease Overview: In Check dial performed to assess inhaler technique: 12/15/19 Name of inhalers Albuterol Pass: Yes at 60 L/min and Advair Pass: Yes at 60 L/min. Encouraged to to take deep breath, use aero chamber, and rinse after steroid. 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 * Telephone Encounter - Theo Jean RN - 01/06/2024 2:42 PM EST ----- Message from Ludwig Louis MD sent at 01/05/2024 9:29 AM EST ----- On CT scan IMPRESSION Stable 6 mm right middle lobe pulmonary nodule. Stable right lower lobe pleural based opacity adjacent to healed rib fracture, 24 x 10 mm. No definite metastatic disease is appreciated in the chest, abdomen, or pelvis documented in this encounter Plan of Treatment Upcoming Encounters Date Type Department Care Team (Late st Contact Info) Description 01/07/2024 9:00 AM EST Laboratory Laboratory [address] [place] [phone] [place] [address] 01/08/2024 10:00 AM EST Office Visit Hematology/Oncology [facility] [address] [place] [phone] Ludwig Louis MD [address] [place] [address] 01/08/2024 11:00 AM EST Immunization/Injection Hematology/Oncology Treatment, [place] [address] [place] [phone] Nurse, Med 200 [facility] [place] [address] 01/14/2024 11:15 AM EST Cardiac Studies Cardiology [address] [place] [address] Og Frazier [facility] [place] [address] 01/20/2024 6:30 AM EST Anticoagulation Pharmacy Call Center [address] [place] [address] [facility] [address] [place] [address] 02/03/2024 9:50 AM EDT Office Visit Ophthalmology, [facility] [address] [facility] [place] [address] Pablo Casanova T, DO [address] [place] [address] 02/06/2024 10:30 AM EDT Office Visit Cardiology, [facility] 132 [facility] [place] [address] Andres Rainey MD 132 [facility] [place] [address] 02/11/2024 9:40 AM EDT Office Visit Family Medicine [address] [place] [phone] Bell Mcqueen MD [address] [place] [address] [place] [address] 08/10/2024 1:40 PM EDT Office Visit Rheumatology [address] [place] [phone] Win Nielsen MD [address] [place] [address] Scheduled Procedures Name Priority Associated Diagnoses Date/Ti me ESOPHAGOGASTRODUODENOSCOPY ( EGD), FLEXIBLE, TRANSORAL, DIAGNOSTIC Recall Stark's esophagus with dysplasia Health Maintenance Due Date Last Done Comments Depression Screening 07/12/2021 07/12/2020 CKD PHOS USE SMARTSET 57456 08/21/20220 02/2021, 07/12/2020, 03/13/2019, Additional history exists *BISPHONATE OR OTHER ACCEPTABLE MEDICATION NEEDED FOR OSTEOPOROSIS (REFER TO SMARTSET #1146) 10/14/2023 Albumin/Creatinine Ratio 04/22/2024 023, 05/24/2022, 03/26/2022, Additional history exists TSH 10/08/2024 10/08/2023, 1001/2023, 06/19/2023, Additional history exists CKD HGB USE SMARTSET 75375 01/01/202501/01, 01/01/2024, 12/25/2023, Additional history exists Stark's Esophagus Surveilance 02/26/2025 02/26/2022, 02/26/2022, 07/04/2021, Additional history exists DXA Scan 07/05/2025 07/05/2023, 10/19, 11/04/2018, Additional history exists DTaP,Tdap,and Td Vaccines (2 - Td or Tdap) 08/19/2027 08/19/2017, 08/20/2008 Pneumococcal Vaccine: 65+ Years Completed 06/23/2015, 05/14/2013, 04/18/2004 Zoster Vaccines Completed 12/02/2020, 08/15/2020 VITAMIN D LEVEL ONCE IN A LIFETIME-USE SMARTSET# [id number] Completed 04/22/2023, 08/28/2021, 07/14/2015 Influenza Vaccine (FLU [...] this encounter Medical Devices Implanted Type Area Water Resources Business Segment Leader Device Identifier Shelf Expiration Date Model / Serial / Lot Power Port 8fr Sngl Lumen Plas - [id number] Implanted:Qty: 1 on 02/22/2022 at [facility] CR BARD : PERIPHERAL VASCULAR [id number] 02/15/2023 [id number] / / [id number] documented as of this encounter Advance Directives Latest Code Status on File Code Status Date Activated Date Inactivated Comments Full Code 09/03/2007 7:29 AM 09/03/2007 4:02 PM Care Teams Assistant Director Of Admissions Relationship Specialty Start Date End Date Juancho Romero MD [address] [place] [address] [place] [address] PCP - General Family Medicine 12/27/16 documented as of this encounter
--- OUTSIDE RECORDS SUMMARY | 2024-01-23 20:55 | External Medical Summary ---
Author Name Unknown Address Unknown Organization K01:[facility] - [address] [facility] [address] Laboratory Report Ordering Provider Test Date Status MU OLSEN 01/07/2024 10:36:53 Final Observation Date Value Abnormality Reference (Units ) Status Triglyceride 01/07/2024 10:36:53 63 <=174 ( mg/dL) Final Triglyceride Reference Range s (mg/dL):
<150 Acceptable
150-174 Borderline high
175-499 High
>=500 Very high Cholesterol 01/07/2024 10:36:53 104 <200 (mg /dL) Final Total Cholesterol Reference Ranges (mg/dL):
<200 Desirable
200-239 Borderline high
>=240 High HDL 01/07/2024 10:36:53 52 >39 (mg/dL ) Final HDL Cholesterol Reference Ra nges (mg/dL):
>=60 High (Desirable)
<50 Low (Undesirable) For Females
<40 Low (Undesirable) For Males NON-HDL CHOLESTEROL 01/07/2024 10:36:53 52 <=159 (mg/dL) Final Non-HDL Cholesterol Referenc e Range (mg/dL):
<100 Target level for high risk ASCVD patient
<130 Optimal for general population
130-159 Near optimal for general population
160-189 Borderline High
190-219 High
>=220 Very High LDL, (calculated) 01/07/2024 10:36:53 39 <= 129 (mg/dL) Final LDL Cholesterol Reference Ra nges (mg/dL):
<70 Target level for high risk ASCVD patient
<100 Optimal for general population
100-129 Near optimal for general population
130-159 Borderline high
160-189 High
>=190 Very high Performing Location [facility] [place] - [address] [facility] [address]
--- OUTSIDE RECORDS SUMMARY | 2024-01-23 20:55 | External Medical Summary | Summary of Care ---
Author Name Unknown Organization [facility] Address [address] [place] [address] Phone [phone] Care Team Providers Care Personal Fitness Trainer Name Role Phone Katina Rivas MD Primary Care Provider Reason for Visit * Reason Comments eRx-Medication Refill Encounter Details Date Type Department Care Team (Late st Contact Info) Description 01/05/2024 Refill Family Medicine [address] [phone] Katina Rivas MD [address] [place], [place] [address] [address] Encounter for long-term (current) use of medications* Allergies Active Allergy Reactions Criticality Noted Date [...] albuterol 120 mL 5 11/21/2022 Active Ipratropium [place] 0.02 % Inhalation Solution (Atrovent)Indicat ions:Moderate persistent [...] Respimat 2.5 MCG/ACT Inhalation Aerosol Solution (Tiotropium [place] Monohydrate)Indic ations:Moderate persistent asthma without complication INHALE 2 PUFFS BY MOUTH EVERY DAY 12 g 3 04/30/2023 Active Warfarin Sodium 5 MG Oral Tablet (Coumadin)Indicat ions:Pulmonary embolism and infarction (HCC) Take 0.5-1 Tablets by mouth every evening. Or take as instructed by the [facility] 90 Tablet 3 08/09/2023 [...] BREAKFAST/OTHER MEDS 90 Tablet 0 01/06/2024 Active Rosuvastatin Calcium 10 MG Oral Tablet (Crestor) TAKE 1 TABLET BY MOUTH EVERY DAY 90 Tablet 1 05/27/2023 01/06/20 24 Discontinued documented as of this [...] rinse after steroid. Test performed by Sameer LAW ENFORCEMENT INSTRUCTOR CPFT Pleural plaque due to asbestos exposure Restrictive lung disease Overview: In Check dial performed to assess inhaler technique: 12/15/19 Name of inhalers Albuterol Pass: Yes at 60 L/min and Advair Pass: Yes at 60 L/min. Encouraged to to take deep breath, use aero chamber, and rinse after steroid. 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 [...] mRNA, LNP-s, No Pre serve, 2-Dose Series ([employer]) 12/01/2021,01/16/2021,12/26/2020 COVID-19, LNP-s, No Preserve , Ozzy-sucrose, Ages 12+ ([employer]) 12/01/2021 COVID-19, MRNA-LNP, 23-24, P F, 30 MCG/0.3 mL, 12 YRS AND ABOVE, IM ([employer]) 09/18/2023 Covid-19, Mrna, Lnp-s, Pf, B ivalent, 30 Mcg, IM, 12 yrs and above ([employer]) 10/09/2022 Pneumococcal Conjugate Vacc, 13 Valent (Prevnar) [...] encounter Miscellaneous Notes * Telephone Encounter - Pretty Castellano [facility] - 01/06/2024 9:57 AM ESTSigned Prescriptions: Disp Refills Rosuvastatin Calcium 10 MG Oral Tablet (Cr*90 Tab*1 Sig: TAKE 1 TABLET BY MOUTH EVERY DAYAuthorizing Provider: KATINA RIVAS User: PRETTY DALTON----- * Telephone Encounter - Pretty Castellano [facility] - 01/06/2024 9:55 AM EST Pending Prescriptions: Disp Refills Rosuvastatin Calcium 10 MG Oral Tablet (C*90 Tab*1 Sig: TAKE 1 TABLET BY MOUTH EVERY DAY Last Visit: 11/04/2023 (in office), 08/28/2022 (telemedicine) Next Visit: 02/11/2024 If no future appointments scheduled, and last appointment is greater than a year ago, please schedule patient for a follow-up appointment Last date the medication was ordered: 05/27/23 Pharmacy: [id number] [id number] [facility] Is this request for a controlled substance? No Urine Drug Screen:No results found. However, due to the size of the patient record, not all encounters were searched. Please check Results Review for a complete set of results. Patient Phone Numbers Labs: Lab Results Component Value Date/Time CREAT 1.5 (H) 10/22/2023 10:51 AM CREAT 1.4 (H) 03/22/2021 11:41 AM CREAT 1.24 01/25/2021 12:00 AM CREAT 1.5 (H) 12/08/2020 10:19 AM POTASSIUM 4.6 10/22/2023 10:51 AM POTASSIUM 4.4 01/25/2021 12:00 AM POTASSIUM 4.5 12/08/2020 10:19 AM TSH 6.87 (H) 10/08/2023 10:16 AM TSH 3.75 02/18/2007 10:20 AM LDLCALC 44 05/23/2022 10:34 AM LDLCALC 59 07/12/2020 12:19 PM LDLDIRECT NOT APPLICABLE 07/12/2020 12:19 PM ALT 12 10/22/2023 10:51 AM ALT 15 09/23/2020 10:27 AM HGBA1C 4.8 03/23/2015 12:11 PM documented in this encounter Plan of Treatment Upcoming Encounters Date Type Department Care Team (Late st Contact Info) Description 01/07/2024 9:00 AM EST Laboratory Laboratory [address] [place] [phone] [address] [place] [address] 01/08/2024 10:00 AM EST Office Visit Hematology/Oncology [facility] [address] [place] [address] Ludwig Louis MD [address] [place] [address] 01/08/2024 11:00 AM EST Immunization/Injecti on Hematology/Oncology Treatment, [place] 200 [facility] [place] [address] Nurse, Med 4 200 [facility] [place] [address] 01/14/2024 11:15 AM EST Cardiac Studies Cardiology [address] [place] [address] [facility] 132 [facility] [place] [address] 02/03/2024 9:50 AM EDT Office Visit Ophthalmology, [facility] 132 [facility] [place] [address] Pablo Casanova T, DO [address] [place] [address] 02/06/2024 10:30 AM EDT Office Visit Cardiology, [facility] [address] [facility] [place] [address] Andres Rainey MD 132 [facility] [place] [address] 02/11/2024 9:40 AM EDT Office Visit Family Medicine [address] [place] [phone] Bell Mcqueen MD [address] [place] [address] [place] [address] 08/10/2024 1:40 PM EDT Office Visit Rheumatology [address] [place] [phone] [facility] [place], [place] [address] Scheduled Orders Name Type Priority Associated Diagnoses Orde r Schedule LIPID PANEL WITH DIRECT LDL IF TG IS HIGH Lab Routine Encounter for long-term (current) use of medications Expected: 01/06/2024 (Approximate), Expires: 01/06/2025 Scheduled Procedures Name Priority Associated Diagnoses Date/Ti sc ESOPHAGOGASTRODUODENOSCOPY ( EGD), FLEXIBLE, TRANSORAL, DIAGNOSTIC Recall Stark's esophagus with dysplasia Health Maintenance Due Date Last Done Comments Depression Screening 07/12/2021 07/12/2020 CKD PHOS USE SMARTSET 45212 08/21/202202/2021, 07/12/2020, 03/13/2019, Additional history exists *BISPHONATE OR OTHER ACCEPTABLE MEDICATION NEEDED FOR OSTEOPOROSIS (REFER TO SMARTSET #1146) 10/14/2023 Albumin/Creatinine Ratio 04/22/2024 023, 05/24/2022, 03/26/2022, Additional history exists TSH 10/08/2024 10/08/2023, 01/2023, 06/19/2023, Additional history exists CKD HGB USE SMARTSET 73226 01/01/202501/01, 01/01/2024, 12/25/2023, Additional history exists Stark's Esophagus Surveilance 02/26/2025 02/26/2022, 02/26/2022, 07/04/2021, Additional history exists DXA Scan 07/05/2025 07/05/2023, 10/19, 11/04/2018, Additional history exists DTaP,Tdap,and Td Vaccines (2 - Td or Tdap) 08/19/2027 08/19/2017, 08/20/2008 Pneumococcal Vaccine: 65+ Years Completed 06/23/2015, 05/14/2013, 04/18/2004 Zoster Vaccines Completed 12/02/2020, 08/15/2020 VITAMIN D LEVEL ONCE IN A LIFETIME-USE SMARTSET# [id number] Completed 04/22/2023, 08/28/2021, 07/14/2015 Influenza Vaccine (FLU [...] this encounter Medical Devices Implanted Type Area Garnett Machine Operator Helper Device Identifier Shelf Expiration Date Model / Serial / Lot Power Port 8fr Sngl Lumen Plas - [id number] Implanted:Qty: 1 on 02/22/2022 at [facility] CR [facility] : PERIPHERAL VASCULAR [id number] 02/15/2023 [id number] / / [id number] documented as of this encounter Visit Diagnoses Diagnosis Encounter for long-term (current) use of medications- Primary Encounter for long-term (current) use of other medications documented in this encounter Advance Directives Latest Code Status on File Code Status Date Activated Date Inactivated Comments Full Code 09/03/2007 7:29 AM 09/03/2007 4:02 PM Care Teams Personal Fitness Trainer Relationship Specialty Start Date End Date Katina Rivas MD [address] [place] [address] [place] [id number] PCP - General Family Medicine 12/27/16 documented as of this encounter
--- OUTSIDE RECORDS SUMMARY | 2024-01-23 20:56 | External Medical Summary | Summary of Care ---
Author Name Unknown Organization [facility] Address [address] [place] [address] Phone [phone] Care Team Providers Care Condenser Tube Tender Name Role Phone Juancho Romero MD Primary Care Provider Reason for Visit * Reason Comments Infusion Venofer 11/21 Encounter Details Date Type Department Care Team (Latest Contact Info) Description 11/07/2023 2:00 PM EST Hem/Onc Treatment Hematology/Oncology Treatment, [address] [address] Marylou, Chair [address] [address] Anemia of chronic disease*; Carcinoma of bladder (HCC); H/O mitral valve repair; Chronic kidney disease, stage 3b (HCC) Allergies Active Allergy Reactions Criticality Noted Date Comments Penicillins Other (Please comment),Rash High Eyes swell Pollen 05/03/2022 Wound Dressing Adhesive Rash 05/02/2023 Patient reported documented as of this encounter (statuses as of 01/05/2024) Medications Medication Sig Dispensed Refills Start Date [...] albuterol 120 mL 5 11/21/2022 Active Ipratropium [place] 0.02 % Inhalation Solution (Atrovent)Indicat ions:Moderate persistent [...] Respimat 2.5 MCG/ACT Inhalation Aerosol Solution (Tiotropium [place] Monohydrate)Indic ations:Moderate persistent asthma without complication INHALE 2 PUFFS BY MOUTH EVERY DAY 12 g 3 04/30/2023 Active Rosuvastatin Calcium 10 MG Oral Tablet (Crestor) TAKE 1 TABLET BY MOUTH EVERY DAY 90 Tablet 1 05/27/2023 Active Warfarin Sodium 5 MG Oral Tablet (Coumadin)Indicat ions:Pulmonary embolism and infarction (HCC) Take 0.5-1 Tablets by mouth every evening. Or take as instructed by the [facility] 90 Tablet 3 08/09/2023 [...] before bedtime. 40 Tablet 0 11/04/2023 Active predniSONE 5 MG Oral Tablet (Deltasone) TAKE 1 TABLET BY MOUTH EVERY DAY 90 Tablet 3 12/18/2022 12/17/19 24 Discontinued Esomeprazole Magnesium 40 MG Oral Capsule Delayed ReleaseIndication s: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 TAKE 1 CAPSULE BY MOUTH TWICE A DAY 180 Capsule 1 2023 11/19/19 24 Discontinued Levothyroxine Sodium 125 MCG Oral Tablet (Levoxyl)Indicati ons:Carcinoma of bladder (HCC) TAKE 1 TAB BY MOUTH DAILY FIRST THING IN THE MORNING AT LEAST 30 MIN PRIOR TO BREAKFAST/OTHER MEDS 90 Tablet 0 08/26/2023 11/19/19 24 Discontinued Zolpidem Tartrate 5 MG Oral Tablet (Ambien)Indicatio ns:Restless leg syndrome Take 1 Tablet by mouth at bedtime as needed for Sleep. 30 Tablet 0 10/09/2023 11/13/20 23 Discontinued Fluticasone Propionate 50 MCG/ACT Nasal Suspension (Flonase)Indicati ons:Acute cough Administer 1 [place] into each nostril in the morning and 1 [place] in the evening. Do all this for 5 days. 18.2 mL 0 11/04/2023 11/19/19 24 Discontinued Hospital, Clinic, or Other Facility [...] as of this encounter (statuses as of 01/05/2024) Active Problems Problem Noted Date Diagnosed Date [...] rinse after steroid. Test performed by Sameer HANDICRAFT OR HOBBY SHOP MANAGER CPFT Pleural plaque due to asbestos exposure Restrictive lung disease Overview: In Check dial performed to assess inhaler technique: 12/15/19 Name of inhalers Albuterol Pass: Yes at 60 L/min and Advair Pass: Yes at 60 L/min. Encouraged to to take deep breath, use aero chamber, and rinse after steroid. Test performed by Sameer HANDICRAFT OR HOBBY SHOP MANAGER CPFT Hx of pulmonary embolus 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 Overview: [place] C0-M6 documented as of this encounter (statuses as of 01/05/2024) Resolved Problems Problem Noted Date Diagnosed Date [...] Malignant neoplasm of prostate 09/23/2008 03/27/2018 Overview: [place] grade 3 Atrial flutter 09/02/2007 10/16/2007 Herpes [...] as of this encounter (statuses as of 01/05/2024) Immunizations Name Administration Dates Next Due COVID-19 mRNA, LNP-s, No Pre serve, 2-Dose Series ([employer]) 12/01/2021,01/16/2021,12/26/2020 COVID-19, LNP-s, No Preserve , Ozzy-sucrose, Ages 12+ ([employer]) 12/01/2021 COVID-19, MRNA-LNP, 23-24, P F, 30 MCG/0.3 mL, 12 YRS AND ABOVE, IM ([facility]) 09/18/2023 Covid-19, Mrna, Lnp-s, Pf, B ivalent, 30 Mcg, IM, 12 yrs and above ([employer]) 10/09/2022 Pneumococcal Conjugate Vacc, 13 Valent (Prevnar) [...] Sign Reading Time Taken Comments Blood Pressure 114/58 11/07/2023 4:10 PM EST Pulse 84 11/07/2023 4:10 PM EST Temperature 36.9 C (98.4 F) 11/07/2023 4:10 PM ES T Respiratory Rate 18 11/07/2023 4:10 PM EST Oxygen Saturation 96% 11/07/2023 4:10 PM EST Inhaled Oxygen Concentration - - Weight - - Height - - Body Mass Index - - documented in this encounter Nursing Notes * Leana Sears, VIOLET - 11/07/2023 4:11 PM EST 1425: Pt arrived for Venofer 1/4 infusion. Port accessed by Anneliese Ortiz RN. Pt tolerated well. VSS. No complaints at this time. 1600: Pt tolerated Venofer infusion well. Port deaccessed by MARYELLEN RENTERIA. Pt tolerated well. To return in one week. Discharged in stable condition. documented in this encounter Plan of Treatment Upcoming Encounters Date Type Department Care Team (Late st Contact Info) Description 01/06/2024 6:30 AM EST Anticoagulation Pharmacy Call Center 58[address] [facility] [place] [address] Ccps, [facility] 58 60 [facility] [place] [address] 01/07/2024 9:00 AM EST Laboratory Laboratory [address] [place] [phone] [facility] [address] [place] [address] 01/08/2024 10:00 AM EST Office Visit Hematology/Oncology [facility] [place] [address] Ludwig Louis MD [address] [place] [address] 01/08/2024 11:00 AM EST [facility] [address] Nurse, Med [facility] [place] [address] 01/14/2024 11:15 AM EST Cardiac Studies Cardiology [address] [place] [address] [facility] 132 [facility] [place] [address] 02/03/2024 9:50 AM EDT Office Visit Ophthalmology, [facility] 132 [facility] [place] [address] Pablo Casanova T, DO [address] [place] [address] 02/06/2024 10:30 AM EDT Office Visit Cardiology, [facility] [address] [facility] [place] [address] Andres Rainey MD 132 [facility] [place] [address] 02/11/2024 9:40 AM EDT Office Visit Family Medicine [address] [place] [phone] Bell Mcqueen MD [address] [place] [address] [place] [address] 08/10/2024 1:40 PM EDT Office Visit Rheumatology [address] [place] [phone] Win Nielsen MD [facility]0 [facility] [place] [address] Scheduled Procedures Name Priority Associated Diagnoses Date/Ti me ESOPHAGOGASTRODUODENOSCOPY ( EGD), FLEXIBLE, TRANSORAL, DIAGNOSTIC Recall Stark's esophagus with dysplasia Health Maintenance Due Date Last Done Comments Depression Screening 07/12/2021 07/12/2020 CKD PHOS USE SMARTSET 41340 08/21/20220 02/2021, 07/12/2020, 03/13/2019, Additional history exists *BISPHONATE OR OTHER ACCEPTABLE MEDICATION NEEDED FOR OSTEOPOROSIS (REFER TO SMARTSET #1146) 10/14/2023 Albumin/Creatinine Ratio 04/22/2024 023, 05/24/2022, 03/26/2022, Additional history exists TSH 10/08/2024 10/08/2023, 100 01/2023, 06/19/2023, Additional history exists CKD HGB USE SMARTSET 38671 01/01/202501/01, 01/01/2024, 12/25/2023, Additional history exists Stark's Esophagus Surveilance 02/26/2025 02/26/2022, 02/26/2022, 07/04/2021, Additional history exists DXA Scan 07/05/2025 07/05/2023, 10/19, 11/04/2018, Additional history exists DTaP,Tdap,and Td Vaccines (2 - Td or Tdap) 08/19/2027 08/19/2017, 08/20/2008 Pneumococcal Vaccine: 65+ Years Completed 06/23/2015, 05/14/2013, 04/18/2004 Zoster Vaccines Completed 12/02/2020, 08/15/2020 VITAMIN D LEVEL ONCE IN A LIFETIME-USE SMARTSET# [id number] Completed 04/22/2023, 08/28/2021, 07/14/2015 Influenza Vaccine (FLU [...] this encounter Medical Devices Implanted Type Area Campus Aide Device Identifier Shelf Expiration Date Model / Serial / Lot Power Port 8fr Sngl Lumen Plas - [id number] Implanted:Qty: 1 on 02/22/2022 at [facility] CR BARD : PERIPHERAL VASCULAR [id number] 02/15/2023 [id number] / / [id number] documented as of this encounter Visit Diagnoses [...] MAR Action Action Date Dose Rate Site Iron Sucrose (Venofer) 300 mg in NSS 250 mL ivpb 300 mg, IV Piggyback, ONCE, 1 dose, On Marilin 11/07/23 at 1600, Administer over 90 Minutes Start Infusion 11/07/2023 2:28 PM EST 300 mg 166.67 mL/hr NSS infusion 500 mL, Intravenous, at 50 mL/hr, CONTINUOUS, Starting on Marilin 11/07/23 at 1530, Until Marilin 11/07/23 at 2014 Start Infusion 11/07/2023 2:28 PM EST 500 mL 50 mL/hr sodium chloride 0.9 % flush central line 10 mL 10 mL, IV Push, PRN Other, IV Flush, Starting on Marilin 11/07/23 at 1428, Until Marilin 11/07/23 at 2013, For 24 hours, Do not flush if lock, PICC, or central line not in place; IV infusing or unable to flush. Given 11/07/2023 3:57 PM EST 10 mL documented in this encounter Advance Directives Latest Code Status on File Code Status Date Activated Date Inactivated Comments Full Code 09/03/2007 7:29 AM 09/03/2007 4:02 PM Care Teams Condenser Tube Tender Relationship Specialty Start Date End Date Juancho Romero MD [address] [place] [address] [place] [phone] PCP - General Family Medicine 12/27/16 documented as of this encounter
--- OUTSIDE RECORDS SUMMARY | 2024-01-23 20:56 | External Medical Summary | Summary of Care ---
Author Name Unknown Organization [facility] Address [address] [place] [address] Phone [phone] Care Team Providers Care Information Technology Internship Name Role Phone Juancho Romero MD Primary Care Provider Encounter Details Date Type Department Care Team (Late st Contact Info) Description 01/05/2024 Orders Only Hematology/Oncology, [facility] [address] [place] [address] Ludwig Louis MD 200 [place], [place] [phone] Allergies Active Allergy Reactions Criticality Noted Date [...] albuterol 120 mL 5 11/21/2022 Active Ipratropium [place] 0.02 % Inhalation Solution (Atrovent)Indicatio ns:Moderate persistent [...] Respimat 2.5 MCG/ACT Inhalation Aerosol Solution (Tiotropium [place] Monohydrate)Indicat ions:Moderate persistent asthma without complication INHALE 2 PUFFS BY MOUTH EVERY DAY 12 g 3 04/30/2023 Active Rosuvastatin Calcium 10 MG Oral Tablet (Crestor) TAKE 1 TABLET BY MOUTH EVERY DAY 90 Tablet 1 05/27/2023 Active Warfarin Sodium 5 MG Oral Tablet (Coumadin)Indicatio ns:Pulmonary embolism and infarction (HCC) Take 0.5-1 Tablets by mouth every evening. Or take as instructed by the [facility] 90 Tablet 3 08/09/2023 [...] 5 DAYS 16 mL 1 11/19/2023 Active Levothyroxine Sodium 125 MCG Oral Tablet (Levoxyl)Indication s:Carcinoma of bladder (HCC) TAKE 1 TAB BY MOUTH DAILY FIRST THING IN THE MORNING AT LEAST 30 MIN PRIOR TO BREAKFAST/OTHER MEDS 90 Tablet 0 11/19/2023 Active Esomeprazole Magnesium 40 MG Oral [...] at bedtime. 3.5 g 3 12/16/2023 Active documented as of this encounter (statuses [...] rinse after steroid. Test performed by Sameer AIR CONDITIONING TECHNICIAN CPFT Pleural plaque due to asbestos exposure Restrictive lung disease Overview: In Check dial performed to assess inhaler technique: 12/15/19 Name of inhalers Albuterol Pass: Yes at 60 L/min and Advair Pass: Yes at 60 L/min. Encouraged to to take deep breath, use aero chamber, and rinse after steroid. 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 05/30/2005 [...] mRNA, LNP-s, No Pre serve, 2-Dose Series ([employer]) 12/01/2021,01/16/2021,12/26/2020 COVID-19, LNP-s, No Preserve , Ozzy-sucrose, Ages 12+ ([employer]) 12/01/2021 COVID-19, MRNA-LNP, 23-24, P F, 30 MCG/0.3 mL, 12 YRS AND ABOVE, IM ([employer] 09/18/2023 Covid-19, Mrna, Lnp-s, Pf, B ivalent, 30 Mcg, IM, 12 yrs and above ([employer]) 10/09/2022 Pneumococcal Conjugate Vacc, 13 Valent (Prevnar) [...] AM EST Anticoagulation Pharmacy Call Center [phone] [facility] [place] [address] [facility] 58 60 [facility] [place] [address] 01/07/2024 9:00 AM EST Laboratory Laboratory [address] [place] [phone] [address] [place] [address] 01/08/2024 10:00 AM EST Office Visit Hematology/Oncology [facility] [place] 200 [facility] [place] [address] Ludwig oLuis MD 200 [facility] [place] [address] 01/08/2024 11:00 AM EST Immunization/Injection Hematology/Oncology Treatment, [place] [address] [place] [address] Nurse, Med 200 [facility] [place] [address] 01/14/2024 11:15 AM EST Cardiac Studies Cardiology [address] [place] [address] Og Frazier [facility] [address] [place] [address] 02/03/2024 9:50 AM EDT Office Visit Ophthalmology, [facility] 132 [facility] [place] [address] Pablo Casanova T, DO 16 [place] [address] 02/06/2024 10:30 AM EDT Office Visit Cardiology, [facility] 132 [facility] [place] [address] Andres Rainey MD 132 [facility] [address] 02/11/2024 9:40 AM EDT Office Visit Family Medicine [address] [place] [phone] Bell Mcqueen MD [address] [place] [address] [place] [address] 08/10/2024 1:40 PM EDT Office Visit Rheumatology [address] [place] [phone] Win Nielsen MD 1468 [facility] [place] [address] Scheduled Procedures Name Priority Associated Diagnoses Date/Ti me ESOPHAGOGASTRODUODENOSCOPY ( EGD), FLEXIBLE, TRANSORAL, DIAGNOSTIC Recall Stark's esophagus with dysplasia Health Maintenance Due Date Last Done Comments Depression Screening 07/12/2021 07/12/2020 CKD PHOS USE SMARTSET 70311 08/21/2022 10/0 02/2021, 07/12/2020, 03/13/2019, Additional history exists *BISPHONATE OR OTHER ACCEPTABLE MEDICATION NEEDED FOR OSTEOPOROSIS (REFER TO SMARTSET #1146) 10/14/2023 Albumin/Creatinine Ratio 04/22/2024 023, 05/24/2022, 03/26/2022, Additional history exists TSH 10/08/2024 10/08/2023, 01/2023, 06/19/2023, Additional history exists CKD HGB USE SMARTSET 03070 01/01/202501/01, 01/01/2024, 12/25/2023, Additional history exists Stark's Esophagus Surveilance 02/26/2025 02/26/2022, 02/26/2022, 07/04/2021, Additional history exists DXA Scan 07/05/2025 07/05/2023, 10/19, 11/04/2018, Additional history exists DTaP,Tdap,and Td Vaccines (2 - Td or Tdap) 08/19/2027 08/19/2017, 08/20/2008 Pneumococcal Vaccine: 65+ Years Completed 06/23/2015, 05/14/2013, 04/18/2004 Zoster Vaccines Completed 12/02/2020, 08/15/2020 VITAMIN D LEVEL ONCE IN A LIFETIME-USE SMARTSET# [id number] Completed 04/22/2023, 08/28/2021, 07/14/2015 Influenza Vaccine (FLU [...] this encounter Medical Devices Implanted Type Area Chronometer Adjuster Device Identifier Shelf Expiration Date Model / Serial / Lot Power Port 8fr Sngl Lumen Plas - [id number] Implanted:Qty: 1 on 02/22/2022 at [facility] CR [employer]ARD : PERIPHERAL VASCULAR [id number] 02/15/2023 [id number] / / [id number] documented as of this encounter Advance Directives Latest Code Status on File Code Status Date Activated Date Inactivated Comments Full Code 09/03/2007 7:29 AM 09/03/2007 4:02 PM Care Teams Information Technology Internship Relationship Specialty Start Date End Date Juancho Romero MD [address] [place] [address] [place] [address] PCP - General Family Medicine 12/27/16 documented as of this encounter
--- OUTSIDE RECORDS SUMMARY | 2024-01-23 20:57 | External Medical Summary | Summary of Care ---
Author Name Unknown Organization [facility] Address [address] [place] [address] Phone [phone] Care Team Providers Care Aboriginal Education Teacher Name Role Phone Juancho Romero MD Primary Care Provider Reason for Visit * Reason Comments IV Therapy Venofer. Encounter Details Date Type Department Care Team (Latest Contact Info) Description 11/15/2023 1:30 PM EST Hem/Onc Treatment Hematology/Oncology Treatment, [address] [address] Marylou, Chair 1 Hem Onc [address] [address] Anemia of chronic disease*; Carcinoma of bladder (HCC); H/O mitral valve repair; Chronic kidney disease, stage 3b (HCC) Allergies Active Allergy Reactions Criticality Noted Date Comments Penicillins Other (Please comment),Rash High Eyes swell Pollen 05/03/2022 Wound Dressing Adhesive Rash 05/02/2023 Patient reported documented as of this encounter (statuses as of 01/04/2024) Medications Medication Sig Dispensed Refills Start Date [...] albuterol 120 mL 5 3 Active Ipratropium [place] 0.02 % Inhalation Solution (Atrovent)Indicat ions:Moderate persistent [...] Respimat 2.5 MCG/ACT Inhalation Aerosol Solution (Tiotropium [place] Monohydrate)Indic ations:Moderate persistent asthma without complication INHALE 2 PUFFS BY MOUTH EVERY DAY 12 g 3 3 Active Rosuvastatin Calcium 10 MG Oral Tablet (Crestor) TAKE 1 TABLET BY MOUTH EVERY DAY 90 Tablet 1 3 Active Warfarin Sodium 5 MG Oral Tablet (Coumadin)Indicat ions:Pulmonary embolism and infarction (HCC) Take 0.5-1 Tablets by mouth every evening. Or take as instructed by the [facility] 90 Tablet 3 3 Active [...] before bedtime. 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 Do all this for 5 days. 18.2 mL 0 3 11/19/19 24 Discontinued Zolpidem Tartrate 5 MG Oral Tablet (Ambien)Indicatio ns:Restless leg syndrome Take 1 Tablet by mouth at bedtime as needed for Sleep. 30 Tablet 0 3 12/16/19 24 Discontinued(Ref ill) Hospital, Clinic, or Other Facility Administered Medication [...] as of this encounter (statuses as of 01/04/2024) Active Problems Problem Noted Date Diagnosed Date [...] and [address] valve ring [address] Soilz History of tobacco use 09/14/2003 DIVERTICULOSIS OF [...] rinse after steroid. Test performed by Sameer BLEACHING SUPERVISOR CPFT Pleural plaque due to asbestos exposure Restrictive lung disease Overview: In Check dial performed to assess inhaler technique: 12/15/19 Name of inhalers Albuterol Pass: Yes at 60 L/min and Advair Pass: Yes at 60 L/min. Encouraged to to take deep breath, use aero chamber, and rinse after steroid. 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 therapy [...] as of this encounter (statuses as of 01/04/2024) Immunizations Name Administration Dates Next Due COVID-19 mRNA, LNP-s, No Pre serve, 2-Dose Series ([employer]) 12/01/2021,01/16/2021,12/26/2020 COVID-19, LNP-s, No Preserve , Ozzy-sucrose, Ages 12+ ([employer]) 12/01/2021 COVID-19, MRNA-LNP, 23-24, P F, 30 MCG/0.3 mL, 12 YRS AND ABOVE, IM ([facility]) 09/18/2023 Covid-19, Mrna, Lnp-s, Pf, B ivalent, 30 Mcg, IM, 12 yrs and above ([employer]) 10/09/2022 Pneumococcal Conjugate Vacc, 13 Valent (Prevnar) [...] Sign Reading Time Taken Comments Blood Pressure 116/59 11/15/2023 1:30 PM EST Pulse 92 11/15/2023 1:30 PM EST Temperature 36.4 C (97.5 F) 11/15/2023 1:30 PM ES T Respiratory Rate 18 11/15/2023 1:30 PM EST Oxygen Saturation 94% 11/15/2023 1:30 PM EST Inhaled Oxygen Concentration - - Weight - - Height - - Body Mass Index - - documented in this encounter Nursing Notes * Anneliese Ortiz RN - 11/15/2023 3:30 PM EST Goals: Patient will remain free from injury. Possible barriers to meeting goals: Fall risk d/t ambulation with IV pole. Stability of the patient: Moderately stable - low risk of patient condition declining or worsening Summary regarding today's goals: Met: Patient remained free of injury. Patient tolerated procedure well. Discharged in stable condition. * Anneliese Ortiz RN - 11/15/2023 1:44 PM EST Chair 7. Patient arrived for venofer infusion with no complaints. Safety and Risk for Injury Patient will remain free from injury. Ensure appropriate safety devices are available. Provide and maintain safe environment. documented in this encounter Plan of Treatment Upcoming Encounters Date Type Department Care Team (Late st Contact Info) Description 01/06/2024 6:30 AM EST Anticoagulation Pharmacy Call Center [address] [place] [address] [facility] 58 60 [facility] [place] [address] 01/07/2024 9:00 AM EST Laboratory Laboratory [address] [place] [phone] [address] [place] [address] 01/08/2024 10:00 AM EST Office Visit Hematology/Oncology [facility] 200 [facility] [place] [address] Ludwig Louis MD 200 [facility] [place] [address] 01/08/2024 11:00 AM EST Immunization/Injection Hematology/Oncology Treatment, [place] [address] [place] [address] Nurse, Med 200 [facility] [place] [address] 01/14/2024 11:15 AM EST Cardiac Studies Cardiology [address] [place] [address] [facility] 132 [facility] [place] [address] 02/03/2024 9:50 AM EDT Office Visit Ophthalmology, [facility] 132 [facility] [place] [address] Pablo Casanova, DO 16 [place] [address] 02/06/2024 10:30 AM EDT Office Visit Cardiology, [facility] 132 [facility] [place] [address] Andres Rainey MD 132 [facility] [place] [address] 02/11/2024 9:40 AM EDT Office Visit Family Medicine [address] [place] [phone] Bell Mcqueen MD [address] [place] [address] [place] [address] 08/10/2024 1:40 PM EDT Office Visit Rheumatology [address] [place] [phone] Win Nielsen MD [address] [place] [address] [place] [address] Scheduled Procedures Name Priority Associated Diagnoses Date/Ti me ESOPHAGOGASTRODUODENOSCOPY ( EGD), FLEXIBLE, TRANSORAL, DIAGNOSTIC Recall Stark's esophagus with dysplasia Health Maintenance Due Date Last Done Comments Depression Screening 07/12/2021 07/12/2020 CKD PHOS USE SMARTSET 54207 08/21/2022 10/0 02/2021, 07/12/2020, 03/13/2019, Additional history exists *BISPHONATE OR OTHER ACCEPTABLE MEDICATION NEEDED FOR OSTEOPOROSIS (REFER TO SMARTSET #1146) 10/14/2023 Albumin/Creatinine Ratio 04/22/2024 023, 05/24/2022, 03/26/2022, Additional history exists TSH 10/08/2024 10/08/2023, 10/0 01/2023, 06/19/2023, Additional history exists CKD HGB USE SMARTSET 64790 01/01/202501/01, 01/01/2024, 12/25/2023, Additional history exists Stark's Esophagus Surveilance 02/26/2025 02/26/2022, 02/26/2022, 07/04/2021, Additional history exists DXA Scan 07/05/2025 07/05/2023, 10/19, 11/04/2018, Additional history exists DTaP,Tdap,and Td Vaccines (2 - Td or Tdap) 08/19/2027 08/19/2017, 08/20/2008 Pneumococcal Vaccine: 65+ Years Completed 06/23/2015, 05/14/2013, 04/18/2004 Zoster Vaccines Completed 12/02/2020, 08/15/2020 VITAMIN D LEVEL ONCE IN A LIFETIME-USE SMARTSET# [id number] Completed 04/22/2023, 08/28/2021, 07/14/2015 Influenza Vaccine (FLU [...] this encounter Medical Devices Implanted Type Area Caddie Device Identifier Shelf Expiration Date Model / Serial / Lot Power Port 8fr Sngl Lumen Plas - [id number] Implanted:Qty: 1 on 02/22/2022 at [facility] : PERIPHERAL VASCULAR [id number] 02/15/2023 [id number] / / [id number] documented as of this encounter Visit Diagnoses [...] Lock, PRN Other, IV Flush, Starting on Sat11/15/23 at 1328, Until Sat11/15/23 at 1934, For 24 hours, Do not flush if lock, PICC, or central line not in place; IV infusing or unable to flush. Given 11/15/2023 3:14 PM EST 500 Units Iron Sucrose (Venofer) 300 mg in NSS 250 mL ivpb 300 mg, IV Piggyback, ONCE, 1 dose, On Sat11/15/23 at 1500, Administer over 90 Minutes Start Infusion 11/15/2023 1:40 PM EST 300 mg 166.67 mL/hr NSS infusion 500 mL, Intravenous, at 50 mL/hr, CONTINUOUS, Starting on Sat11/15/23 at 1430, Until Sat11/15/23 at 1934 Start Infusion 11/15/2023 1:40 PM EST 500 mL 50 mL/hr sodium chloride 0.9 % flush central line 10 mL 10 mL, IV Push, PRN Other, IV Flush, Starting on Sat11/15/23 at 1328, Until Sat11/15/23 at 1934, For 24 hours, Do not flush if lock, PICC, or central line not in place; IV infusing or unable to flush. Given 11/15/2023 3:14 PM EST 10 mL documented in this encounter Advance Directives Latest Code Status on File Code Status Date Activated Date Inactivated Comments Full Code 09/03/2007 7:29 AM 09/03/2007 4:02 PM Care Teams Aboriginal Education Teacher Relationship Specialty Start Date End Date Juancho Romero MD [address] [place] [address] [place] [id number] PCP - General Family Medicine 2/9/17 documented as of this encounter
--- OUTSIDE RECORDS SUMMARY | 2024-01-23 20:57 | External Medical Summary | Summary of Care ---
Author Name Unknown Organization [facility] Address [address] [place] [address] Phone [phone] Care Team Providers Care Hair Stylist Name Role Phone Juancho Romero MD Primary Care Provider Reason for Visit * Reason Comments Infusion Venofer 11/21 Encounter Details Date Type Department Care Team (Latest Contact Info) Description 11/07/2023 2:00 PM EST Hem/Onc Treatment Hematology/Oncology Treatment, [address] [address] Marylou, Chair 6 Hem Onc [address] [address] Anemia of chronic disease*; Carcinoma of bladder [...] albuterol 120 mL 5 11/21/2022 Active Ipratropium [place] 0.02 % Inhalation Solution (Atrovent)Indicat ions:Moderate persistent [...] Respimat 2.5 MCG/ACT Inhalation Aerosol Solution (Tiotropium [place] Monohydrate)Indic ations:Moderate persistent asthma without complication INHALE 2 PUFFS BY MOUTH EVERY DAY 12 g 3 04/30/2023 Active Rosuvastatin Calcium 10 MG Oral Tablet (Crestor) TAKE 1 TABLET BY MOUTH EVERY DAY 90 Tablet 1 05/27/2023 Active Warfarin Sodium 5 MG Oral Tablet (Coumadin)Indicat ions:Pulmonary embolism and infarction (HCC) Take 0.5-1 Tablets by mouth every evening. Or take as instructed by the [facility] 90 Tablet 3 08/09/2023 Active [...] Nasal Suspension (Flonase)Indicati ons:Acute cough Administer 1 [place] into each nostril in the morning and 1 [place] in the evening. Do all this for [...] rinse after steroid. Test performed by Sameer FIRE EXTINGUISHER CHARGER CPFT Pleural plaque due to asbestos exposure Restrictive lung disease Overview: In Check dial performed to assess inhaler technique: 12/15/19 Name of inhalers Albuterol Pass: Yes at 60 L/min and Advair Pass: Yes at 60 L/min. Encouraged to to take deep breath, use aero chamber, and rinse after steroid. 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 Overview: [place] C0-M6 documented as of this encounter (statuses [...] Malignant neoplasm of prostate 09/23/2008 03/27/2018 Overview: [place] grade 3 Atrial flutter 09/02/2007 10/16/2007 Herpes simplex virus infection 08/22/2005 04/05/2016 Anal fissure 06/04/2005 10/16/2007 halfway current use of ant icoagulant therapy 05/30/2005 [...] mRNA, LNP-s, No Pre serve, 2-Dose Series ([employer]) 12/01/2021,01/16/2021,12/26/2020 COVID-19, LNP-s, No Preserve , Ozzy-sucrose, Ages 12+ ([employer]) 12/01/2021 COVID-19, MRNA-LNP, 23-24, P F, 30 MCG/0.3 mL, 12 YRS AND ABOVE, IM ([facility]) 09/18/2023 Covid-19, Mrna, Lnp-s, Pf, B ivalent, 30 Mcg, IM, 12 yrs and above ([employer]) 10/09/2022 Pneumococcal Conjugate Vacc, 13 Valent (Prevnar) [...] AM EST Anticoagulation Pharmacy Call Center [address]60 [facility] [place] [address] [facility], [facility] 58 60 [facility] [place] [address] 01/07/2024 9:00 AM EST Laboratory Laboratory [address] [place] [phone] [facility] [address] [place] [address] 01/08/2024 10:00 AM EST Office Visit Hematology/Oncology [facility] 200 [facility] [place] [address] Ludwig Louis MD 200 [place] [address] 01/08/2024 11:00 AM EST [facility] [address] Nurse, Med 200 [facility] [place] [address] 01/14/2024 11:15 AM EST Cardiac Studies Cardiology [address] [place] [address] [facility] 132 [facility] [place] [address] 02/03/2024 9:50 AM EDT Office Visit Ophthalmology, [facility] 132 [facility] [place] [address] Pablo Casanova T, DO 16 [place] [address] 02/06/2024 10:30 AM EDT Office Visit Cardiology, [facility] 132 [facility] [place] [address] Andres Rainey MD 132 [facility] [place] [address] 02/11/2024 9:40 AM EDT Office Visit Family Medicine [address] [place] [phone] Bell Mcqueen MD [address] [place] [address] [place] [address] 08/10/2024 1:40 PM EDT Office Visit Rheumatology [address] [place] [phone] Win Nielsen MD [facility] [place] [address] Scheduled Procedures Name Priority Associated Diagnoses Date/Ti me ESOPHAGOGASTRODUODENOSCOPY ( EGD), FLEXIBLE, TRANSORAL, DIAGNOSTIC Recall Stark's esophagus with dysplasia Health Maintenance Due Date Last Done Comments Depression Screening 07/12/2021 07/12/2020 CKD PHOS USE SMARTSET 02587 08/21/20220 02/2021, 07/12/2020, 03/13/2019, Additional history exists *BISPHONATE OR OTHER ACCEPTABLE MEDICATION NEEDED FOR OSTEOPOROSIS (REFER TO SMARTSET #1146) 10/14/2023 Albumin/Creatinine Ratio 04/22/2024 023, 05/24/2022, 03/26/2022, Additional history exists TSH 10/08/2024 10/08/2023, 100 01/2023, 06/19/2023, Additional history exists CKD HGB USE SMARTSET 69087 01/01/202501/01, 01/01/2024, 12/25/2023, Additional history exists Stark's Esophagus Surveilance 02/26/2025 02/26/2022, 02/26/2022, 07/04/2021, Additional history exists DXA Scan 07/05/2025 07/05/2023, 10/19, 11/04/2018, Additional history exists DTaP,Tdap,and Td Vaccines (2 - Td or Tdap) 08/19/2027 08/19/2017, 08/20/2008 Pneumococcal Vaccine: 65+ Years Completed 06/23/2015, 05/14/2013, 04/18/2004 Zoster Vaccines Completed 12/02/2020, 08/15/2020 VITAMIN D LEVEL ONCE IN A LIFETIME-USE SMARTSET# [id number] Completed 04/22/2023, 08/28/2021, 07/14/2015 Influenza Vaccine (FLU [...] this encounter Medical Devices Implanted Type Area Beef Cattle Farm Manager Device Identifier Shelf Expiration Date Model / Serial / Lot Power Port 8fr Sngl Lumen Plas - [id number] Implanted:Qty: 1 on 02/22/2022 at [facility]ARD : PERIPHERAL VASCULAR [id number] 02/15/2023 [id number] / / [id number] documented as of this encounter Visit Diagnoses [...] 7:29 AM 09/03/2007 4:02 PM Care Teams Hair Stylist Relationship Specialty Start Date End Date Juancho Romero MD [address] [place] [address] [place] [phone] PCP - General Family Medicine 12/27/16 documented as of this encounter
--- OUTSIDE RECORDS SUMMARY | 2024-01-23 20:59 | External Medical Summary | Summary of Care ---
Author Name Unknown Organization [facility] Address [address] [place] [address] Phone [phone] Care Team Providers Care Woodwork Teacher Name Role Phone Juancho Romero MD Primary Care Provider [phone] Encounter Details Date Type Department Care Team (Late st Contact Info) Description 12/30/2023 Orders Only Hematology/Oncology [facility] [address] [place] [address] Ree Rodriguez CRNP [address] [place] [address] Allergies Active Allergy Reactions Criticality Noted Date Comments Penicillins Other (Please comment),Rash High Eyes swell Pollen 05/03/2022 Wound Dressing Adhesive Rash 05/02/2023 Patient reported documented as of this encounter (statuses as of 01/03/2024) Medications Medication Sig Dispensed Refills Start Date [...] albuterol 120 mL 5 11/21/2022 Active Ipratropium [place] 0.02 % Inhalation Solution (Atrovent)Indicatio ns:Moderate persistent [...] Respimat 2.5 MCG/ACT Inhalation Aerosol Solution (Tiotropium [place] Monohydrate)Indicat ions:Moderate persistent asthma without complication INHALE 2 PUFFS BY MOUTH EVERY DAY 12 g 3 04/30/2023 Active Rosuvastatin Calcium 10 MG Oral Tablet (Crestor) TAKE 1 TABLET BY MOUTH EVERY DAY 90 Tablet 1 05/27/2023 Active Warfarin Sodium 5 MG Oral Tablet (Coumadin)Indicatio ns:Pulmonary embolism and infarction (HCC) Take 0.5-1 Tablets by mouth every evening. Or take as instructed by the [facility] 90 Tablet 3 08/09/2023 Active [...] as of this encounter (statuses as of 01/03/2024) Active Problems Problem Noted Date Diagnosed Date [...] rinse after steroid. Test performed by Sameer DIRECTOR IT CPFT Pleural plaque due to asbestos exposure Restrictive lung disease Overview: In Check dial performed to assess inhaler technique: 12/15/19 Name of inhalers Albuterol Pass: Yes at 60 L/min and Advair Pass: Yes at 60 L/min. Encouraged to to take deep breath, use aero chamber, and rinse after steroid. 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 05/30/2005 [...] as of this encounter (statuses as of 01/03/2024) Immunizations Name Administration Dates Next Due COVID-19 mRNA, LNP-s, No Pre serve, 2-Dose Series ([employer]) 12/01/2021,01/16/2021,12/26/2020 COVID-19, LNP-s, No Preserve , Ozzy-sucrose, Ages 12+ ([employer]) 12/01/2021 COVID-19, MRNA-LNP, 23-24, P F, 30 MCG/0.3 mL, 12 YRS AND ABOVE, IM ([employer] [facility]) 09/18/2023 Covid-19, Mrna, Lnp-s, Pf, B ivalent, 30 Mcg, IM, 12 yrs and above ([employer]) 10/09/2022 Pneumococcal Conjugate Vacc, 13 Valent (Prevnar) [...] AM EST Anticoagulation Pharmacy Call Center [address]60 [facility] [place] [address] [facility] 58 60 [facility] [place] [address] 01/07/2024 9:00 AM EST Laboratory Laboratory [address] [place] [phone] [address] [place] [address] 01/08/2024 10:00 AM EST Office Visit Hematology/Oncology [facility] [place] 200 [facility] [place] [address] Ludwig Louis MD 200 [facility] [place] [address] 01/08/2024 11:00 AM EST Immunization/Injection Hematology/Oncology Treatment, [place] [address] [place] [address] Nurse, Med 200 [facility] [place] [address] 01/14/2024 11:15 AM EST Cardiac Studies Cardiology [address] [place] [address] Og Frazier [facility] 132 [facility] [place] [address] 02/03/2024 9:50 AM EDT Office Visit Ophthalmology, [facility] 132 [place] [address] Pablo Casanova T, DO 16 [place] [address] 02/06/2024 10:30 AM EDT Office Visit Cardiology, [facility] 132 [facility] [place] [address] Andres Rainey MD 132 [facility] [address] 02/11/2024 9:40 AM EDT Office Visit Family Medicine [address] [place] [phone] Bell Mcqueen MD [address] [place] [address] [place] [address] 08/10/2024 1:40 PM EDT Office Visit Rheumatology [address] [place] [phone] Win Nielsen MD 8[address] [facility] [place] [address] Scheduled Procedures Name Priority Associated Diagnoses Date/Ti me ESOPHAGOGASTRODUODENOSCOPY ( EGD), FLEXIBLE, TRANSORAL, DIAGNOSTIC Recall Stark's esophagus with dysplasia Health Maintenance Due Date Last Done Comments Depression Screening 07/12/2021 07/12/2020 CKD PHOS USE SMARTSET 44293 08/21/2022 10/0 02/2021, 07/12/2020, 03/13/2019, Additional history exists *BISPHONATE OR OTHER ACCEPTABLE MEDICATION NEEDED FOR OSTEOPOROSIS (REFER TO SMARTSET #1146) 10/14/2023 Albumin/Creatinine Ratio 04/22/2024 023, 05/24/2022, 03/26/2022, Additional history exists TSH 10/08/2024 10/08/2023, 10/01/2023, 06/19/2023, Additional history exists CKD HGB USE SMARTSET 58978 01/01/202501/01, 01/01/2024, 12/25/2023, Additional history exists Stark's Esophagus Surveilance 02/26/2025 02/26/2022, 02/26/2022, 07/04/2021, Additional history exists DXA Scan 07/05/2025 07/05/2023, 10/19, 11/04/2018, Additional history exists DTaP,Tdap,and Td Vaccines (2 - Td or Tdap) 08/19/2027 08/19/2017, 08/20/2008 Pneumococcal Vaccine: 65+ Years Completed 06/23/2015, 05/14/2013, 04/18/2004 Zoster Vaccines Completed 12/02/2020, 08/15/2020 VITAMIN D LEVEL ONCE IN A LIFETIME-USE SMARTSET# [id number] Completed 04/22/2023, 08/28/2021, 07/14/2015 Influenza Vaccine (FLU [...] this encounter Medical Devices Implanted Type Area Glue Size Machine Operator Device Identifier Shelf Expiration Date Model / Serial / Lot Power Port 8fr Sngl Lumen Plas - [id number] Implanted:Qty: 1 on 02/22/2022 at [facility] CR BARD : PERIPHERAL VASCULAR [id number] 02/15/2023 [id number] / / [id number] documented as of this encounter Advance Directives Latest Code Status on File Code Status Date Activated Date Inactivated Comments Full Code 09/03/2007 7:29 AM 09/03/2007 4:02 PM Care Teams Woodwork Teacher Relationship Specialty Start Date End Date Juancho Romero MD [address] [place] [address] [place] [address] PCP - General Family Medicine 12/27/16 documented as of this encounter
--- OUTSIDE RECORDS SUMMARY | 2024-01-23 20:59 | External Medical Summary | Summary of Care ---
Author Name Unknown Organization [facility] Address [address] [place] [address] Phone [phone] Care Team Providers Care Aircraft Detail Draftsperson Name Role Phone Juancho Romero MD Primary Care Provider Reason for Visit * Reason Comments IV Therapy Venofer. Encounter Details Date Type Department Care Team (Latest Contact Info) Description 11/15/2023 1:30 PM EST Hem/Onc Treatment Hematology/Oncology Treatment, [address] [address] Marylou, Chair 1 Hem Onc [address] [address] Anemia of chronic disease*; Carcinoma of bladder [...] albuterol 120 mL 5 3 Active Ipratropium [place] 0.02 % Inhalation Solution (Atrovent)Indicat ions:Moderate persistent [...] Respimat 2.5 MCG/ACT Inhalation Aerosol Solution (Tiotropium [place] Monohydrate)Indic ations:Moderate persistent asthma without complication INHALE 2 PUFFS BY MOUTH EVERY DAY 12 g 3 3 Active Rosuvastatin Calcium 10 MG Oral Tablet (Crestor) TAKE 1 TABLET BY MOUTH EVERY DAY 90 Tablet 1 3 Active Warfarin Sodium 5 MG Oral Tablet (Coumadin)Indicat ions:Pulmonary embolism and infarction (HCC) Take 0.5-1 Tablets by mouth every evening. Or take as instructed by the [facility] 90 Tablet 3 3 [...] Nasal Suspension (Flonase)Indicati ons:Acute cough Administer 1 [place] into each nostril in the morning and 1 [place] in the evening. Do all this for [...] rinse after steroid. Test performed by Sameer INFORMATION TECHNOLOGY TECHNICIAN CPFT Pleural plaque due to asbestos exposure Restrictive lung disease Overview: In Check dial performed to assess inhaler technique: 12/15/19 Name of inhalers Albuterol Pass: Yes at 60 L/min and Advair Pass: Yes at 60 L/min. Encouraged to to take deep breath, use aero chamber, and rinse after steroid. 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 05/30/2005 [...] mRNA, LNP-s, No Pre serve, 2-Dose Series ([employer]) 12/01/2021,01/16/2021,12/26/2020 COVID-19, LNP-s, No Preserve , Ozzy-sucrose, Ages 12+ ([place]) 12/01/2021 COVID-19, MRNA-LNP, 23-24, P F, 30 MCG/0.3 mL, 12 YRS AND ABOVE, IM ([employer]) 09/18/2023 Covid-19, Mrna, Lnp-s, Pf, B ivalent, 30 Mcg, IM, 12 yrs and above ([employer]) 10/09/2022 Pneumococcal Conjugate Vacc, 13 Valent (Prevnar) [...] AM EST Anticoagulation Pharmacy Call Center [address] [place] [address] [facility] 58 60 [facility] [place] [address] 01/07/2024 9:00 AM EST Laboratory Laboratory [address] [place] [phone] [address] [place] [address] 01/08/2024 10:00 AM EST Office Visit Hematology/Oncology [facility] 200 [facility] [place] [address] Ludwig Louis MD 200 [facility] [place] [address] 01/08/2024 11:00 AM EST Immunization/Injection Hematology/Oncology Treatment, [facility] [address] [place] [address] Nurse, Med 200 [facility] [place] [address] 01/14/2024 11:15 AM EST Cardiac Studies Cardiology [address] [place] [address] [facility] 132 [facility] [place] [address] 02/03/2024 9:50 AM EDT Office Visit Ophthalmology, [facility] 132 [facility] [place] [address] Pablo Casanova, DO 16 [place] [address] 02/06/2024 10:30 AM EDT Office Visit Cardiology, [facility] 132 [facility] [place] [address] Andres Rainey MD 132 [facility] [place] [address] 02/11/2024 9:40 AM EDT Office Visit Family Medicine [address] [place] [phone] Bell Mcqueen MD [address] [place] [address] [place] [address] 08/10/2024 1:40 PM EDT Office Visit Rheumatology [address] [place] [phone] Win Nielsen MD [address] [place] [address] [facility] [address] Scheduled Procedures Name Priority Associated Diagnoses Date/Ti me ESOPHAGOGASTRODUODENOSCOPY ( EGD), FLEXIBLE, TRANSORAL, DIAGNOSTIC Recall Stark's esophagus with dysplasia Health Maintenance Due Date Last Done Comments Depression Screening 07/12/2021 07/12/2020 CKD PHOS USE SMARTSET 95513 08/21/2022 10/0 02/2021, 07/12/2020, 03/13/2019, Additional history exists *BISPHONATE OR OTHER ACCEPTABLE MEDICATION NEEDED FOR OSTEOPOROSIS (REFER TO SMARTSET #1146) 10/14/2023 Albumin/Creatinine Ratio 04/22/2024 023, 05/24/2022, 03/26/2022, Additional history exists TSH 10/08/2024 10/08/2023, 10/0 01/2023, 06/19/2023, Additional history exists CKD HGB USE SMARTSET 00762 01/01/202501/01, 01/01/2024, 12/25/2023, Additional history exists Stark's Esophagus Surveilance 02/26/2025 02/26/2022, 02/26/2022, 07/04/2021, Additional history exists DXA Scan 07/05/2025 07/05/2023, 10/19, 11/04/2018, Additional history exists DTaP,Tdap,and Td Vaccines (2 - Td or Tdap) 08/19/2027 08/19/2017, 08/20/2008 Pneumococcal Vaccine: 65+ Years Completed 06/23/2015, 05/14/2013, 04/18/2004 Zoster Vaccines Completed 12/02/2020, 08/15/2020 VITAMIN D LEVEL ONCE IN A LIFETIME-USE SMARTSET# [id number] Completed 04/22/2023, 08/28/2021, 07/14/2015 Influenza Vaccine (FLU [...] this encounter Medical Devices Implanted Type Area Chainstitch Felled Seam Operator Device Identifier Shelf Expiration Date Model / Serial / Lot Power Port 8fr Sngl Lumen Plas - [id number] Implanted:Qty: 1 on 02/22/2022 at [facility] : PERIPHERAL VASCULAR [id number] 02/15/2023 [id number] / / [id number] documented as of this encounter Visit Diagnoses [...] 7:29 AM 09/03/2007 4:02 PM Care Teams Aircraft Detail Draftsperson Relationship Specialty Start Date End Date Juancho Romero MD [address] [place] [address] [place] [id number] PCP - General Family Medicine 2/9/17 documented as of this encounter
--- OUTSIDE RECORDS SUMMARY | 2024-01-23 21:00 | External Medical Summary | Summary of Care ---
Author Name Unknown Organization [facility] Address [address] [place] [address] Phone [phone] Care Team Providers Care Coin Purse Framer Name Role Phone Juancho Romero MD Primary Care Provider [phone] Encounter Details Date Type Department Care Team (Late st Contact Info) Description 01/03/2024 Result Scan Unspecified Department Tammie Scruggs, [facility] [address] [place] [address] <No scans attached> Allergies Active Allergy Reactions [...] albuterol 120 mL 5 11/21/2022 Active Ipratropium [place] 0.02 % Inhalation Solution (Atrovent)Indicatio ns:Moderate persistent [...] Respimat 2.5 MCG/ACT Inhalation Aerosol Solution (Tiotropium [place] Monohydrate)Indicat ions:Moderate persistent asthma without complication INHALE 2 PUFFS BY MOUTH EVERY DAY 12 g 3 04/30/2023 Active Rosuvastatin Calcium 10 MG Oral Tablet (Crestor) TAKE 1 TABLET BY MOUTH EVERY DAY 90 Tablet 1 05/27/2023 Active Warfarin Sodium 5 MG Oral Tablet (Coumadin)Indicatio ns:Pulmonary embolism and infarction (HCC) Take 0.5-1 Tablets by mouth every evening. Or take as instructed by the [facility] 90 Tablet 3 08/09/2023 Active [...] rinse after steroid. Test performed by Sameer DECORATING MACHINE TENDER CPFT Pleural plaque due to asbestos exposure Restrictive lung disease Overview: In Check dial performed to assess inhaler technique: 12/15/19 Name of inhalers Albuterol Pass: Yes at 60 L/min and Advair Pass: Yes at 60 L/min. Encouraged to to take deep breath, use aero chamber, and rinse after steroid. Test performed by Sameer DECORATING MACHINE TENDER CPFT Hx of pulmonary embolus 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 Overview: [place] C0-M6 documented as of this encounter (statuses [...] mRNA, LNP-s, No Pre serve, 2-Dose Series (Novavax) 12/01/2021,01/16/2021,12/26/2020 COVID-19, LNP-s, No Preserve , Ozzy-sucrose, Ages 12+ (Novavax) 12/01/2021 COVID-19, MRNA-LNP, 23-24, P F, 30 MCG/0.3 mL, 12 YRS AND ABOVE, IM ([facility]) 09/18/2023 Covid-19, Mrna, Lnp-s, Pf, B ivalent, 30 Mcg, IM, 12 yrs and above (Novavax) 10/09/2022 Pneumococcal Conjugate Vacc, 13 Valent (Prevnar) [...] AM EST Anticoagulation Pharmacy Call Center 58[address]60 [facility] [place] [address] [facility] 58 60 [facility] [place] [address] 01/07/2024 9:00 AM EST Laboratory Laboratory [address] [place] [phone] [address] [place] [address] 01/08/2024 10:00 AM EST Office Visit Hematology/Oncology [facility] [place] 200 [facility] [place] [address] Ludwig Louis MD 200 [facility] [place] [address] 01/08/2024 11:00 AM EST Immunization/Injection Hematology/Oncology Treatment, [place] [address] [place] [address] Nurse, Med 200 [facility] [place] [address] 01/14/2024 11:15 AM EST Cardiac Studies Cardiology [address] [place] [address] [facility] 132 [facility] [place] [address] 02/03/2024 9:50 AM EDT Office Visit Ophthalmology, [facility] 132 [facility] [place] [address] Pablo Casanova, DO 16 [place] [address] 02/06/2024 10:30 AM EDT Office Visit Cardiology, [facility] 132 [facility] [place] [address] Andres Rainey MD 132 [facility] [address] 02/11/2024 9:40 AM EDT Office Visit Family Medicine [address] [place] [phone] Bell Mcqueen MD [address] [place] [address] [place] [address] 08/10/2024 1:40 PM EDT Office Visit Rheumatology [address] [place] [phone] Win Nielsen MD [address] [place] [address] [place] [address] Scheduled Procedures Name Priority Associated Diagnoses Date/Ti me ESOPHAGOGASTRODUODENOSCOPY ( EGD), FLEXIBLE, TRANSORAL, DIAGNOSTIC Recall Stark's esophagus with dysplasia Health Maintenance Due Date Last Done Comments Depression Screening 07/12/2021 07/12/2020 CKD PHOS USE SMARTSET 19620 08/21/2022 10/0 02/2021, 07/12/2020, 03/13/2019, Additional history exists *BISPHONATE OR OTHER ACCEPTABLE MEDICATION NEEDED FOR OSTEOPOROSIS (REFER TO SMARTSET #1146) 10/14/2023 Albumin/Creatinine Ratio 04/22/2024 023, 05/24/2022, 03/26/2022, Additional history exists TSH 10/08/2024 10/08/2023, 10/0 01/2023, 06/19/2023, Additional history exists CKD HGB USE SMARTSET 05242 01/01/202501/01, 01/01/2024, 12/25/2023, Additional history exists Stark's Esophagus Surveilance 02/26/2025 02/26/2022, 02/26/2022, 07/04/2021, Additional history exists DXA Scan 07/05/2025 07/05/2023, 10/19, 11/04/2018, Additional history exists DTaP,Tdap,and Td Vaccines (2 - Td or Tdap) 08/19/2027 08/19/2017, 08/20/2008 Pneumococcal Vaccine: 65+ Years Completed 06/23/2015, 05/14/2013, 04/18/2004 Zoster Vaccines Completed 12/02/2020, 08/15/2020 VITAMIN D LEVEL ONCE IN A LIFETIME-USE SMARTSET# [id number] Completed 04/22/2023, 08/28/2021, 07/14/2015 Influenza Vaccine (FLU [...] this encounter Medical Devices Implanted Type Area Info Specialist Device Identifier Shelf Expiration Date Model / Serial / Lot Power Port 8fr Sngl Lumen Plas - [id number] Implanted:Qty: 1 on 02/22/2022 at [facility] : PERIPHERAL VASCULAR [id number] 02/15/2023 [id number] / / [id number] documented as of this encounter Procedures Procedure Name Priority Date/Time Associated Diagnosis Comments OUTSIDE LAB RESULTS 01/03/2024 documented in this encounter Results * OUTSIDE LAB RESULTS (01/03/2024) 01/03/2024 Tammie Scruggs [facility] documented in this encounter Advance Directives Latest Code Status on File Code Status Date Activated Date Inactivated Comments Full Code 09/03/2007 7:29 AM 09/03/2007 4:02 PM Care Teams Coin Purse Framer Relationship Specialty Start Date End Date Juancho Romero MD [address] [place] [address] [place] [address] PCP - General Family Medicine 12/27/16 documented as of this encounter
--- OUTSIDE RECORDS SUMMARY | 2024-01-23 21:00 | External Medical Summary | Summary of Care ---
Author Name Unknown Organization [facility] Address [address] [place] [address] Phone [phone] Care Team Providers Care Donor Technician Name Role Phone Juancho Romero MD Primary Care Provider [phone] Reason for Visit * Reason Comments IV Therapy Venofer. Encounter Details Date Type Department Care Team (Latest Contact Info) Description 11/15/2023 1:30 PM EST Hem/Onc Treatment Hematology/Oncology Treatment, [address] [address] Marylou, Chair 1 Hem On[address] [address] Anemia of chronic disease*; Carcinoma of bladder [...] albuterol 120 mL 5 3 Active Ipratropium [place] 0.02 % Inhalation Solution (Atrovent)Indicat ions:Moderate persistent [...] Respimat 2.5 MCG/ACT Inhalation Aerosol Solution (Tiotropium [place] Monohydrate)Indic ations:Moderate persistent asthma without complication INHALE [...] as instructed by the [facility] 90 Tablet 3 3 [...] Nasal Suspension (Flonase)Indicati ons:Acute cough Administer 1 [place] into each nostril in the morning and 1 [place] in the evening. Do all this for [...] rinse after steroid. Test performed by Sameer BLISTER PACKING MACHINE TENDER CPFT Pleural plaque due to asbestos exposure Restrictive lung disease Overview: In Check dial performed to assess inhaler technique: 12/15/19 Name of inhalers Albuterol Pass: Yes at 60 L/min and Advair Pass: Yes at 60 L/min. Encouraged to to take deep breath, use aero chamber, and rinse after steroid. 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 132 [facility] [place] [address] 01/07/2024 9:00 AM EST Laboratory Laboratory [address] [place] [phone] [address] [place] [address] 01/08/2024 10:00 AM EST Office Visit Hematology/Oncology [facility] 200 [facility] [place] [address] Ludwig Louis MD 200 [facility] [place] [address] 01/08/2024 11:00 AM EST Immunization/Injection Hematology/Oncology Treatment, [place] [address] [place] [address] Nurse, Med 200 [facility] [place] [address] 01/09/2024 6:30 AM EST Anticoagulation Pharmacy Call Center [address]60 [facility] [place] [address] [facility] 58 60 [facility] [place] [address] 01/14/2024 11:15 AM EST Cardiac Studies Cardiology [address] [place] [address] [facility] 132 [facility] [place] [address] 02/03/2024 9:50 AM EDT Office Visit Ophthalmology, [facility] 132 [facility] [place] [address] Pablo Casanova T, [facility] [address] 02/06/2024 10:30 AM EDT Office Visit Cardiology, [facility] 132 [facility] [place] [address] Andres Rainey MD 132 [facility] [place] [address] 02/11/2024 10:00 AM EDT Office Visit Family Medicine [address] [place] [phone] Bell Mcqueen MD [address] [place] [address] [place] [address] 08/10/2024 1:40 PM EDT Office Visit Rheumatology [address] [place] [phone] Win Nielsen MD [facility] [place] [address] Scheduled Procedures Name Priority Associated Diagnoses Date/Ti me ESOPHAGOGASTRODUODENOSCOPY ( EGD), FLEXIBLE, TRANSORAL, DIAGNOSTIC Recall Stark's esophagus with dysplasia Health Maintenance Due Date Last Done Comments Depression Screening 07/12/2021 07/12/2020 CKD PHOS USE SMARTSET 22469 08/21/2022 100 02/2021, 07/12/2020, 03/13/2019, Additional history exists *BISPHONATE OR OTHER ACCEPTABLE MEDICATION NEEDED FOR OSTEOPOROSIS (REFER TO SMARTSET #1146) 10/14/2023 Albumin/Creatinine Ratio 04/22/2024 023, 05/24/2022, 03/26/2022, Additional history exists TSH 10/08/2024 10/08/2023, 100 01/2023, 06/19/2023, Additional history exists CKD HGB USE SMARTSET 79648 01/01/202501/01, 01/01/2024, 12/25/2023, Additional history exists Stark's Esophagus Surveilance 02/26/2025 02/26/2022, 02/26/2022, 07/04/2021, Additional history exists DXA Scan 07/05/2025 07/05/2023, 10/19, 11/04/2018, Additional history exists DTaP,Tdap,and Td Vaccines (2 - Td or Tdap) 08/19/2027 08/19/2017, 08/20/2008 Pneumococcal Vaccine: 65+ Years Completed 06/23/2015, 05/14/2013, 04/18/2004 Zoster Vaccines Completed 12/02/2020, 08/15/2020 VITAMIN D LEVEL ONCE IN A LIFETIME-USE SMARTSET# [id number] Completed 04/22/2023, 08/28/2021, 07/14/2015 Influenza Vaccine (FLU [...] this encounter Medical Devices Implanted Type Area Assisted Living Associate Device Identifier Shelf Expiration Date Model / Serial / Lot Power Port 8fr Sngl Lumen Plas - [id number] Implanted:Qty: 1 on 02/22/2022 at [facility] : PERIPHERAL VASCULAR [id number] 02/15/2023 [id number] / / [id number] documented as of this encounter Visit Diagnoses [...] 7:29 AM 09/03/2007 4:02 PM Care Teams Donor Technician Relationship Specialty Start Date End Date Juancho Romero MD [address] [place] [address] [place] [phone] PCP - General Family Medicine 12/27/16 documented as of this encounter
--- OUTSIDE RECORDS SUMMARY | 2024-01-23 21:01 | External Medical Summary | Summary of Care ---
Author Name Unknown Organization [facility] Address [address] [place] [address] Phone [phone] Care Team Providers Care Computer Technology Instructor Name Role Phone Juancho Romero MD Primary Care Provider Reason for Visit * Reason Comments IV Therapy Venofer. Encounter Details Date Type Department Care Team (Latest Contact Info) Description 11/15/2023 1:30 PM EST Hem/Onc Treatment Hematology/Oncology Treatment, [address] [address] Marylou, Chair 1 Hem Onc [address] [address] Anemia of chronic disease*; Carcinoma of bladder [...] albuterol 120 mL 5 3 Active Ipratropium [place] 0.02 % Inhalation Solution (Atrovent)Indicat ions:Moderate persistent [...] Respimat 2.5 MCG/ACT Inhalation Aerosol Solution (Tiotropium [place] Monohydrate)Indic ations:Moderate persistent asthma without complication INHALE [...] Nasal Suspension (Flonase)Indicati ons:Acute cough Administer 1 [place] into each nostril in the morning and 1 [place] in the evening. Do all this for [...] rinse after steroid. Test performed by Sameer HARDENING MACHINE OPERATOR CPFT Pleural plaque due to asbestos exposure Restrictive lung disease Overview: In Check dial performed to assess inhaler technique: 12/15/19 Name of inhalers Albuterol Pass: Yes at 60 L/min and Advair Pass: Yes at 60 L/min. Encouraged to to take deep breath, use aero chamber, and rinse after steroid. 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) 09/18/2023 Covid-19, Mrna, Lnp-s, Pf, B ivalent, 30 Mcg, IM, 12 yrs and above (MOVL) 10/09/2022 Pneumococcal Conjugate Vacc, 13 Valent (Prevnar) [...] Description 01/03/2024 10:30 AM EST Imaging Radiology [facility] [address] [facility] 132 [facility] [place] [address] 01/07/2024 9:00 AM EST Laboratory Laboratory [address] [place] [phone] [address] [place] [address] 01/08/2024 10:00 AM EST Office Visit Hematology/Oncology [facility] 200 [facility] [place] [address] Ludwig Louis MD 200 [facility] [place] [address] 01/08/2024 11:00 AM EST Immunization/Injection Hematology/Oncology Treatment, [place] [address] [place] [address] Nurse, Med 200 [facility] [place] [address] 01/09/2024 6:30 AM EST Anticoagulation Pharmacy Call Center 58-60 [facility] [place] [address] [facility] 58 60 [facility] Angela [place] [address] 01/14/2024 11:15 AM EST Cardiac Studies Cardiology [address] [place] [address] [facility] 132 [facility] [place] [address] 02/03/2024 9:50 AM EDT Office Visit Ophthalmology, [facility] 132 [facility] [place] [address] Pablo Casanova T, [facility] [address] 02/06/2024 10:30 AM EDT Office Visit Cardiology, [facility] 132 [facility] [place] [address] Andres Rainey MD 132 [facility] [place] [address] 02/11/2024 10:00 AM EDT Office Visit Family Medicine [address] [place] [phone] Bell Mcqueen MD [address] [place] [address] [place] [address] 08/10/2024 1:40 PM EDT Office Visit Rheumatology [address] [place] [phone] Win Nielsen MD [facility] [place] [address] Scheduled Procedures Name Priority Associated Diagnoses Date/Ti me ESOPHAGOGASTRODUODENOSCOPY ( EGD), FLEXIBLE, TRANSORAL, DIAGNOSTIC Recall Stark's esophagus with dysplasia Health Maintenance Due Date Last Done Comments Depression Screening 07/12/2021 07/12/2020 CKD PHOS USE SMARTSET 18125 08/21/2022 100 02/2021, 07/12/2020, 03/13/2019, Additional history exists *BISPHONATE OR OTHER ACCEPTABLE MEDICATION NEEDED FOR OSTEOPOROSIS (REFER TO SMARTSET #1146) 10/14/2023 Albumin/Creatinine Ratio 04/22/2024 023, 05/24/2022, 03/26/2022, Additional history exists TSH 10/08/2024 10/08/2023, 100 01/2023, 06/19/2023, Additional history exists CKD HGB USE SMARTSET 27420 01/01/202501/01, 01/01/2024, 12/25/2023, Additional history exists Stark's Esophagus Surveilance 02/26/2025 02/26/2022, 02/26/2022, 07/04/2021, Additional history exists DXA Scan 07/05/2025 07/05/2023, 10/19, 11/04/2018, Additional history exists DTaP,Tdap,and Td Vaccines (2 - Td or Tdap) 08/19/2027 08/19/2017, 08/20/2008 Pneumococcal Vaccine: 65+ Years Completed 06/23/2015, 05/14/2013, 04/18/2004 Zoster Vaccines Completed 12/02/2020, 08/15/2020 VITAMIN D LEVEL ONCE IN A LIFETIME-USE SMARTSET# [id number] Completed 04/22/2023, 08/28/2021, 07/14/2015 Influenza Vaccine (FLU [...] this encounter Medical Devices Implanted Type Area Staff Software Engineer Device Identifier Shelf Expiration Date Model / Serial / Lot Power Port 8fr Sngl Lumen Plas - [id number] Implanted:Qty: 1 on 02/22/2022 at [facility] CR BARD : PERIPHERAL VASCULAR [id number] 02/15/2023 [id number] / / [id number] documented as of this encounter Visit Diagnoses [...] 7:29 AM 09/03/2007 4:02 PM Care Teams Computer Technology Instructor Relationship Specialty Start Date End Date Juancho Romero MD [address] [place] [address] [place] [phone] PCP - General Family Medicine 12/27/16 documented as of this encounter
--- OUTSIDE RECORDS SUMMARY | 2024-01-23 21:02 | External Medical Summary | Summary of Care ---
Author Name Unknown Organization [facility] Address [address] [place] [address] Phone [phone] Care Team Providers Care Warehouse Processor Name Role Phone Juancho Romero MD Primary Care Provider [phone] Reason for Visit * Reason Comments Outpatient Testing Encounter Details Date Type Department Care Team (Late st Contact Info) Description 01/01/2024 9:00 AM EST Laboratory Laboratory [address] [place] [phone] [place] [address] MyCode Research Other*[id number]; Urothelial carcinoma of bladder (HCC) Allergies Active Allergy Reactions Criticality Noted Date Comments Penicillins Other (Please comment),Rash High Eyes swell Pollen 05/03/2022 Wound Dressing Adhesive Rash 05/02/2023 Patient reported documented as of this encounter (statuses as of 01/01/2024) Medications Medication Sig Dispensed Refills Start Date [...] albuterol 120 mL 5 11/21/2022 Active Ipratropium [place] 0.02 % Inhalation Solution (Atrovent)Indicatio ns:Moderate persistent [...] Respimat 2.5 MCG/ACT Inhalation Aerosol Solution (Tiotropium [place] Monohydrate)Indicat ions:Moderate persistent asthma without complication INHALE 2 PUFFS BY MOUTH EVERY DAY 12 g 3 04/30/2023 Active Rosuvastatin Calcium 10 MG Oral Tablet (Crestor) TAKE 1 TABLET BY MOUTH EVERY DAY 90 Tablet 1 05/27/2023 Active Warfarin Sodium 5 MG Oral Tablet (Coumadin)Indicatio ns:Pulmonary embolism and infarction (HCC) Take 0.5-1 Tablets by mouth every evening. 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 Test performed by Sameer ASP NET C DEVELOPER CPFT Pleural plaque due to asbestos exposure Restrictive lung disease Overview: In Check dial performed to assess inhaler technique: 12/15/19 Name of inhalers Albuterol Pass: Yes at 60 L/min and Advair Pass: Yes at 60 L/min. Encouraged to to take deep breath, use aero chamber, and rinse after steroid. Test performed by Sameer ASP NET C DEVELOPER CPFT Hx of pulmonary embolus 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 Overview: [place] C0-M6 documented as of this encounter (statuses as of 01/01/2024) Resolved Problems Problem Noted Date Diagnosed Date [...] infection 08/22/2005 04/05/2016 Anal fissure 06/04/2005 10/16/2007 jail current use of ant icoagulant therapy 05/30/2005 [...] as of this encounter (statuses as of 01/01/2024) Immunizations Name Administration Dates Next Due COVID-19 mRNA, LNP-s, No Pre serve, 2-Dose Series (Pay by Shopping (deal united)) 12/01/2021,01/16/2021,12/26/2020 COVID-19, LNP-s, No Preserve , Ozzy-sucrose, Ages 12+ (Pfizer) 12/01/2021 COVID-19, MRNA-LNP, 23-24, P F, 30 MCG/0.3 mL, 12 YRS AND ABOVE, IM ([facility]) 09/18/2023 Covid-19, Mrna, Lnp-s, Pf, B ivalent, 30 Mcg, IM, 12 yrs and above (Pay by Shopping (deal united)) 10/09/2022 Pneumococcal Conjugate Vacc, 13 Valent (Prevnar) [...] Care Team (Late st Contact Info) Description 01/02/2024 11:00 AM EST Immunization/Injection Hematology/Oncology Treatment, [place] [facility] [place] [address] Nurse, Med [address] [address] 01/03/2024 10:30 AM EST Imaging Radiology [facility], [place] 132 [facility] [place] [address] 01/07/2024 9:00 AM EST Laboratory Laboratory [address] [place] [phone] [address] [place] [address] 01/08/2024 10:00 AM EST Office Visit Hematology/Oncology [facility] [place] [address] [address] Ludwig Louis MD 200 [facility] [place] [address] 01/08/2024 11:00 AM EST Immunization/Injection Hematology/Oncology Treatment, [place] 200 [facility] [place] [address] Nurse, Med [address] [address] 01/09/2024 6:30 AM EST Anticoagulation Pharmacy Call Center WB 58-60 [facility] Angelazaida [place] [address] [facility] 58 60 [facility] [place] [address] 01/14/2024 11:15 AM EST Cardiac Studies Cardiology [address] [place] [address] Freddie [facility] 132 [facility] [place] [address] 02/03/2024 10:00 AM EDT Office Visit Ophthalmology, [address] [place] [address] Pablo Casanova, [address] [address] 02/06/2024 10:30 AM EDT Office Visit Cardiology, [facility] 132 [facility] [place] [address] Andres Rainey MD 132 [facility] [address] 02/11/2024 10:00 AM EDT Office Visit Family Medicine [address] [place] [phone] Bell Mcqueen MD [address] [place] [address] [place] [address] 08/10/2024 1:40 PM EDT Office Visit Rheumatology [address] [place] [phone] Win Nielsen MD [address] [place] [address] [place] [address] Pending Results Name Type Priority Associated Diagnoses Date /Time MYCODE SUBSEQUENT ADULT Lab Routine MyCode Research Other*[id number] 01/01/2024 10:35 AM EST CBC WITH WBC DIFFERENTIAL Lab STAT Urothelial carcinoma of bladder (HCC) 01/01/2024 10:35 AM EST MYCODE SST1 Lab Routine MyCode Research Other*[id number] 01/01/2024 10:35 AM EST MYCODE SST2 Lab Routine MyCode Research Other*[id number] 01/01/2024 10:35 AM EST CBC Lab STAT Urothelial carcinoma of bladder (HCC) 01/01/2024 10:35 AM EST DIFFERENTIAL, AUTOMATED Lab STAT Urothelial carcinoma of bladder (HCC) 01/01/2024 10:35 AM EST Scheduled Procedures Name Priority Associated Diagnoses Date/Ti me ESOPHAGOGASTRODUODENOSCOPY ( EGD), FLEXIBLE, TRANSORAL, DIAGNOSTIC Recall Stark's esophagus with dysplasia Health Maintenance Due Date Last Done Comments Depression Screening 07/12/2021 07/12/2020 CKD PHOS USE SMARTSET 42837 08/21/2022 100 02/2021, 07/12/2020, 03/13/2019, Additional history exists *BISPHONATE OR OTHER ACCEPTABLE MEDICATION NEEDED FOR OSTEOPOROSIS (REFER TO SMARTSET #1146) 10/14/2023 Albumin/Creatinine Ratio 04/22/2024 023, 05/24/2022, 03/26/2022, Additional history exists TSH 10/08/2024 10/08/2023, 100 01/2023, 06/19/2023, Additional history exists CKD HGB USE SMARTSET 08224 12/25/202412/25, 12/25/2023, 12/18/2023, Additional history exists Tsark's Esophagus Surveilance 02/26/2025 02/26/2022, 02/26/2022, 07/04/2021, Additional history exists DXA Scan 07/05/2025 07/05/2023, 10/19, 11/04/2018, Additional history exists DTaP,Tdap,and Td Vaccines (2 - Td or Tdap) 08/19/2027 08/19/2017, 08/20/2008 Pneumococcal Vaccine: 65+ Years Completed 06/23/2015, 05/14/2013, 04/18/2004 Zoster Vaccines Completed 12/02/2020, 08/15/2020 VITAMIN D LEVEL ONCE IN A LIFETIME-USE SMARTSET# [id number] Completed 04/22/2023, 08/28/2021, 07/14/2015 Influenza Vaccine (FLU [...] this encounter Medical Devices Implanted Type Area Engraver Wood Device Identifier Shelf Expiration Date Model / Serial / Lot Power Port 8fr Sngl Lumen Plas - [id number] Implanted:Qty: 1 on 02/22/2022 at [facility] BARD : PERIPHERAL VASCULAR [id number] 02/15/2023 [id number] / / [id number] documented as of this encounter Visit Diagnoses Diagnosis MyCode Research Other*[id number] Urothelial carcinoma of bladder (HCC) documented in this encounter Advance Directives Latest Code Status on File Code Status Date Activated Date Inactivated Comments Full Code 09/03/2007 7:29 AM 09/03/2007 4:02 PM Care Teams Warehouse Processor Relationship Specialty Start Date End Date Juancoh Romero MD [address] [place] [address] [place] [address] PCP - General Family Medicine 12/27/16 documented as of this encounter
--- OUTSIDE RECORDS SUMMARY | 2024-01-23 21:02 | External Medical Summary | Summary of Care ---
Author Name Unknown Organization [facility] Address [address] [place] [address] Phone [phone] Care Team Providers Care Insurance Agency Owner Name Role Phone Juancho Romero MD Primary [...] stage 3a chronic kidney disease (HCC) Procedures NM INJ RETACRIT NON-ESRD USE NM THERAPEUTIC PROPHYLACTIC/DX INJECTION SUBQ/IM NM EPOETIN IVAN, NON-ESRD Ludwig Louis MD 200 [place] [address] Anc Hem/Onc Dony Hickman DEPT CLOSED - 10/01/23 [address] [place] [address] Referral ID Status Reason Start Date Expiration Date V isits Requested Visits Authorized [id number] Authorized 11/22/2023 02/14/[phone] Encounter Details Date Type Department Care Team (Late st Contact Info) Description 01/02/2024 11:00 AM EST Immunization/I njection Hematology/Oncology Treatment, [place] [address] [place] [phone] Nurse, Med 4 200 [place] [address] Carcinoma of bladder (HCC)*; Iron deficiency anemia, unspecified iron deficiency anemia type; Chronic kidney disease, stage 3b (HCC); 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) Allergies Active Allergy Reactions Criticality Noted Date Comments Penicillins Other (Please comment),Rash High Eyes swell Pollen 05/03/2022 Wound Dressing Adhesive Rash 05/02/2023 Patient reported documented as of this encounter (statuses as of 01/02/2024) Medications Medication Sig Dispensed Refills Start Date [...] albuterol 120 mL 5 11/21/2022 Active Ipratropium [place] 0.02 % Inhalation Solution (Atrovent)Indicatio ns:Moderate persistent [...] Respimat 2.5 MCG/ACT Inhalation Aerosol Solution (Tiotropium [place] Monohydrate)Indicat ions:Moderate persistent asthma without complication INHALE 2 PUFFS BY MOUTH EVERY DAY 12 g 3 04/30/2023 Active Rosuvastatin Calcium 10 MG Oral Tablet (Crestor) TAKE 1 TABLET BY MOUTH EVERY DAY 90 Tablet 1 05/27/2023 Active Warfarin Sodium 5 MG Oral Tablet (Coumadin)Indicatio ns:Pulmonary embolism and infarction (HCC) Take 0.5-1 Tablets by mouth every evening. Or take as instructed by the [facility] 90 Tablet 3 08/09/2023 [...] as of this encounter (statuses as of 01/02/2024) Active Problems Problem Noted Date Diagnosed Date [...] rinse after steroid. Test performed by Sameer GLOBAL HEAD ADVERTISER SOLUTIONS CPFT Pleural plaque due to asbestos exposure Restrictive lung disease Overview: In Check dial performed to assess inhaler technique: 12/15/19 Name of inhalers Albuterol Pass: Yes at 60 L/min and Advair Pass: Yes at 60 L/min. Encouraged to to take deep breath, use aero chamber, and rinse after steroid. Test performed by Sameer GLOBAL HEAD ADVERTISER SOLUTIONS CPFT Hx of pulmonary embolus 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 Overview: [place] C0-M6 documented as of this encounter (statuses as of 01/02/2024) Resolved Problems Problem Noted Date Diagnosed Date [...] Malignant neoplasm of prostate 09/23/2008 03/27/2018 Overview: [place] grade 3 Atrial flutter 09/02/2007 10/16/2007 Herpes [...] as of this encounter (statuses as of 01/02/2024) Immunizations Name Administration Dates Next Due COVID-19 mRNA, LNP-s, No Pre serve, 2-Dose Series (CogniK) 12/01/2021,01/16/2021,12/26/2020 COVID-19, LNP-s, No Preserve , Ozzy-sucrose, Ages 12+ (CogniK) 12/01/2021 COVID-19, MRNA-LNP, 23-24, P F, 30 MCG/0.3 mL, 12 YRS AND ABOVE, IM (G[facility]zee-Comirnaty) 09/18/2023 Covid-19, Mrna, Lnp-s, Pf, B ivalent, 30 Mcg, IM, 12 yrs and above (CogniK) 10/09/2022 Pneumococcal Conjugate Vacc, 13 Valent (Prevnar) [...] Sign Reading Time Taken Comments Blood Pressure 116/71 01/02/2024 11:03 AM EST Pulse 80 01/02/2024 11:03 AM EST Temperature - - Respiratory Rate - - Oxygen Saturation - - Inhaled Oxygen Concentration - - Weight - - Height - - Body Mass Index - - documented in this encounter Nursing Notes * Leana Sears LPN - 01/02/2024 11:34 AM EST Pt arrived for Procrit injection. Hgb 10.5. BP WNL. Administered in TONI. Pt tolerated well. To return in 1 week. Discharged in stable condition. documented in this encounter Plan of Treatment Upcoming Encounters Date Type Department Care Team (Late st Contact Info) Description 01/03/2024 10:30 AM EST Imaging Radiology [address] 132 [facility] [place] [address] 01/07/2024 9:00 AM EST Laboratory Laboratory [address] [place] [phone] [place] [address] 01/08/2024 10:00 AM EST Office Visit Hematology/Oncology [facility] 200 [facility] [place] [address] Ludwig Louis MD 200 [facility] [place] [address] 01/08/2024 11:00 AM EST Immunization/Injection Hematology/Oncology Treatment, [place] [address] [place] [address] Nurse, Med 200 [place] [address] 01/09/2024 6:30 AM EST Anticoagulation Pharmacy Call Center WB [address] Public [place] [address] [facility] 58 60 [facility] [place] [address] 01/14/2024 11:15 AM EST Cardiac Studies Cardiology [address] [place] [address] [facility] 132 [facility] [place] [address] 02/03/2024 9:50 AM EDT Office Visit Ophthalmology, [facility] 132 [facility] [place] [address] Pablo Casanova, DO 16 [place] [address] 02/06/2024 10:30 AM EDT Office Visit Cardiology, [facility] 132 [facility] [place] [address] Andres Rainey MD 132 [facility] [place] [address] 02/11/2024 10:00 AM EDT Office Visit Family Medicine [address] [place] [phone] Bell Mcqueen MD [address] [place] [address] [place] [address] 08/10/2024 1:40 PM EDT Office Visit Rheumatology [address] [place] [phone] Win Nielsen MD [address] [place] [address] [place] [address] Scheduled Procedures Name Priority Associated Diagnoses Date/Ti me ESOPHAGOGASTRODUODENOSCOPY ( EGD), FLEXIBLE, TRANSORAL, DIAGNOSTIC Recall Stark's esophagus with dysplasia Health Maintenance Due Date Last Done Comments Depression Screening 07/12/2021 07/12/2020 CKD PHOS USE SMARTSET 13804 08/21/2022 10/0 02/2021, 07/12/2020, 03/13/2019, Additional history exists *BISPHONATE OR OTHER ACCEPTABLE MEDICATION NEEDED FOR OSTEOPOROSIS (REFER TO SMARTSET #1146) 10/14/2023 Albumin/Creatinine Ratio 04/22/2024 023, 05/24/2022, 03/26/2022, Additional history exists TSH 10/08/2024 10/08/2023, 10/0 01/2023, 06/19/2023, Additional history exists CKD HGB USE SMARTSET 73717 01/01/202501/01, 01/01/2024, 12/25/2023, Additional history exists Stark's Esophagus Surveilance 02/26/2025 02/26/2022, 02/26/2022, 07/04/2021, Additional history exists DXA Scan 07/05/2025 07/05/2023, 10/19, 11/04/2018, Additional history exists DTaP,Tdap,and Td Vaccines (2 - Td or Tdap) 08/19/2027 08/19/2017, 08/20/2008 Pneumococcal Vaccine: 65+ Years Completed 06/23/2015, 05/14/2013, 04/18/2004 Zoster Vaccines Completed 12/02/2020, 08/15/2020 VITAMIN D LEVEL ONCE IN A LIFETIME-USE SMARTSET# [id number] Completed 04/22/2023, 08/28/2021, 07/14/2015 Influenza Vaccine (FLU [...] this encounter Medical Devices Implanted Type Area Shade Cutter Device Identifier Shelf Expiration Date Model / Serial / Lot Power Port 8fr Sngl Lumen Plas - [id number] Implanted:Qty: 1 on 02/22/2022 at [facility] BARD : PERIPHERAL VASCULAR [id number] 02/15/2023 [id number] / / [id number] documented as of this encounter Visit Diagnoses [...] Action Date Dose Rate Site Epoetin Ivan [address] UNIT/ML inj 40,000 Units 40,000 Units, Subcutaneous, ONCE, On Marilin 01/02/24 at 1145, For 1 dose Given 01/02/2024 11:11 AM EST 40,000 Units Arm Left Upper documented in this encounter Advance Directives Latest Code Status on File Code Status Date Activated Date Inactivated Comments Full Code 09/03/2007 7:29 AM 09/03/2007 4:02 PM Care Teams Insurance Agency Owner Relationship Specialty Start Date End Date Juancho Romero MD [address] [place] [address] [place] [phone] PCP - General Family Medicine 12/27/16 documented as of this encounter
--- OUTSIDE RECORDS SUMMARY | 2024-01-23 21:03 | External Medical Summary ---
Author Name Unknown Address Unknown Organization K01:[place] [facility] [place] [address] [place] [address] Laboratory Report Ordering Provider Test Date Status KASIA LEE 01/01/2024 10:35:32 Final Observation Date Value Abnormality Reference (Units ) Status MYCODE SPECIMEN-SST 01/01/2024 10:35:32 Freezing of extracted DNA, whole blood and/or serum. Final Performing Location LABORATORY C - [address] [place] [address]
--- OUTSIDE RECORDS SUMMARY | 2024-01-23 21:03 | External Medical Summary | Summary of Care ---
Author Name Unknown Organization [facility] Address [address] [place] [address] Phone [phone] Care Team Providers Care Electrolog Operator Name Role Phone Juancho Romero MD Primary Care Provider Reason for Visit * Reason Comments Dosage Adjustment Via Phone (anticoag Cl inic) Encounter Details Date Type Department Care Team (Latest Contact Info) Description 12/26/2023 6:45 AM EST Anticoagulation Pharmacy Call Center [address] [place] [address] [facility] [address] [place] [address] Hx of pulmonary embolus*; Longstanding persistent atrial fibrillation (HCC) Allergies Active Allergy Reactions Criticality Noted Date Comments Penicillins Other (Please comment),Rash High Eyes swell Pollen 05/03/2022 Wound Dressing Adhesive Rash 05/02/2023 Patient reported documented as of this encounter (statuses as of 12/26/2023) Medications Medication Sig Dispensed Refills Start Date [...] albuterol 120 mL 5 11/21/2022 Active Ipratropium [place] 0.02 % Inhalation Solution (Atrovent)Indicatio ns:Moderate persistent [...] Respimat 2.5 MCG/ACT Inhalation Aerosol Solution (Tiotropium [place] Monohydrate)Indicat ions:Moderate persistent asthma without complication INHALE 2 PUFFS BY MOUTH EVERY DAY 12 g 3 04/30/2023 Active Rosuvastatin Calcium 10 MG Oral Tablet (Crestor) TAKE 1 TABLET BY MOUTH EVERY DAY 90 Tablet 1 05/27/2023 Active Warfarin Sodium 5 MG Oral Tablet (Coumadin)Indicatio ns:Pulmonary embolism and infarction (HCC) Take 0.5-1 Tablets by mouth every evening. Or take as instructed by the [facility] 90 Tablet 3 08/09/2023 [...] as of this encounter (statuses as of 12/26/2023) Active Problems Problem Noted Date Diagnosed Date [...] rinse after steroid. Test performed by Sameer ELECTRICIAN AIRCRAFT CPFT Pleural plaque due to asbestos exposure Restrictive lung disease Overview: In Check dial performed to assess inhaler technique: 12/15/19 Name of inhalers Albuterol Pass: Yes at 60 L/min and Advair Pass: Yes at 60 L/min. Encouraged to to take deep breath, use aero chamber, and rinse after steroid. 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 09/29/2020 Overview: Per CKD protocol documented as of this encounter (statuses as of 12/26/2023) Immunizations Name Administration Dates Next Due COVID-19 mRNA, LNP-s, No Pre serve, 2-Dose Series (Spyra) 12/01/2021,01/16/2021,12/26/2020 COVID-19, LNP-s, No Preserve , Ozzy-sucrose, Ages 12+ (Pfizer) 12/01/2021 COVID-19, MRNA-LNP, 23-24, P F, 30 MCG/0.3 mL, 12 YRS AND ABOVE, IM ([employer] [facility]) 09/18/2023 Covid-19, Mrna, Lnp-s, Pf, B ivalent, 30 Mcg, IM, 12 yrs and above (Spyra) 10/09/2022 Pneumococcal Conjugate Vacc, 13 Valent (Prevnar) [...] Progress Notes * Sheela Baugh RPh - 12/26/2023 3:27 PM EST Medication Therapy Disease Management - Anticoagulation Patient: Patrick Robles | : 1935 Subjective Contacts Type Contact Phone/Fax 12/25/2023 05:55 PM EST Fax (Incoming) 12/26/2023 03:28 PM EST Phone (Outgoing) Patrick Robles "Rafa" (Self) [phone] (H) Left Message Patient-Reported Symptoms: Previously reported troubles with [employer] home machine; advised on VM that INR was perfect. Pt should continue his usual weekly warfarin dose at this time. Advised pt to call us or [employer] with furtherquestions/concerns related to home machine. Objective Current Warfarin Dose As of 12/26/2023 Warfarin maintenance plan: 2.5 mg (5 mg x 0.5) every day INR Result As of 12/26/2023 INR goal: 2.0-3.0 INR used for dosin.5 (12/25/2023) Assessment & Plan Warfarin Plan As of 12/26/2023 Full warfarin instructions: 2.5 mg every day No change documented: Sheela Baugh RPh Next INR check: 01/08/2024 Repeat PT/INR in 2 week(s) Weekly dose: not changed Additional Dosing Information: Description Home machine Sheela Baugh RPh Clinical Pharmacist 12/26/2023, 3:30 PM * Terese Downs, freight router - 12/25/2023 5:56 PM EST Patient Phone Numbers Received fax from [employer] for today's INR result of 2.5 Thank you, Terese Downs Automatic Quilling Machine Operator Centralized Clinical Pharmacy Services 12/25/2023,5:56 PM documented in this encounter Plan of Treatment Upcoming Encounters Date Type Department Care Team (Late st Contact Info) Description 12/31/2023 1:00 PM EST Cardiac Studies Cardiology [address] [place] [address] [place] [facility] 132 [facility] [place] [address] 01/01/2024 9:00 AM EST Laboratory Laboratory [address] [place] [phone] [address] [place] [address] 01/02/2024 11:00 AM EST Immunization/Injection Hematology/Oncology Treatment, [place] [address] [place] [address] Nurse, [facility] [address] [facility] [address] 01/03/2024 10:30 AM EST Imaging Radiology [facility] 1st [facility] 132 [facility] [place] [address] 01/07/2024 9:00 AM EST Laboratory Laboratory [address] [place] [phone] [place] [address] 01/08/2024 10:00 AM EST Office Visit Hematology/Oncology [facility] 200 [facility] [place] [address] Ludwig Louis MD 200 [facility] [place] [address] 01/08/2024 11:00 AM EST Immunization/Injection Hematology/Oncology Treatment, [place] 200 [facility] [place] [address] Nurse, Med 200 [facility] [place] [address] 01/09/2024 6:30 AM EST Anticoagulation Pharmacy Call Center WB [address] [facility] [place] [address] Ccps, [facility] 58 60 [facility] [place] [address] 02/03/2024 10:00 AM EDT Office Visit Ophthalmology, [facility] 132 [facility] [place] [address] Pablo Casanova, DO [address] [place] [address] 02/11/2024 10:00 AM EDT Office Visit Family Medicine [address] [place] [phone] Bell Mcqueen MD [address] [place] [address] [place] [address] 08/10/2024 1:40 PM EDT Office Visit Rheumatology [address] [place] [phone] Win Nielsen MD [address] [facility] [place] [address] Scheduled Procedures Name Priority Associated Diagnoses Date/Ti me ESOPHAGOGASTRODUODENOSCOPY ( EGD), FLEXIBLE, TRANSORAL, DIAGNOSTIC Recall Stark's esophagus with dysplasia Health Maintenance Due Date Last Done Comments Depression Screening 07/12/2021 07/12/2020 CKD PHOS USE SMARTSET 22400 08/21/[address] 02/2021, 07/12/2020, 03/13/2019, Additional history exists *BISPHONATE OR OTHER ACCEPTABLE MEDICATION NEEDED FOR OSTEOPOROSIS (REFER TO SMARTSET #1146) 10/14/2023 Albumin/Creatinine Ratio 04/22/2024 023, 05/24/2022, 03/26/2022, Additional history exists TSH 10/08/2024 10/08/2023, 01/2023, 06/19/2023, Additional history exists CKD HGB USE SMARTSET 65183 12/25/202412/25, 12/25/2023, 12/18/2023, Additional history exists Tsark's Esophagus Surveilance 02/26/2025 02/26/2022, 02/26/2022, 07/04/2021, Additional history exists DXA Scan 07/05/2025 07/05/2023, 10/19, 11/04/2018, Additional history exists DTaP,Tdap,and Td Vaccines (2 - Td or Tdap) 08/19/2027 08/19/2017, 08/20/2008 Pneumococcal Vaccine: 65+ Years Completed 06/23/2015, 05/14/2013, 04/18/2004 Zoster Vaccines Completed 12/02/2020, 08/15/2020 VITAMIN D LEVEL ONCE IN A LIFETIME-USE SMARTSET# [id number] Completed 04/22/2023, 08/28/2021, 07/14/2015 Influenza Vaccine (FLU [...] this encounter Medical Devices Implanted Type Area Ruby Rails Developer Device Identifier Shelf Expiration Date Model / Serial / Lot Power Port 8fr Sngl Lumen Plas - [id number] Implanted:Qty: 1 on 02/22/2022 at [facility] CR [facility]ARD : PERIPHERAL VASCULAR [id number] 02/15/2023 [id number] / / [id number] documented as of this encounter Procedures Procedure Name Priority Date/Time Associated Diagnosis Comments OUTSIDE LAB-PT/INR Routine 12/25/2023 documented in this encounter Results * OUTSIDE LAB-PT/INR (12/25/2023) INR-OUTSIDE LAB 2.5 12/25/2023 History Per Patient LABORATORY documented in this encounter Visit Diagnoses Diagnosis Hx of pulmonary embolus- Primary Personal history of pulmonary embolism Longstanding persistent atrial fibrillation (HCC) documented in this encounter Advance Directives Latest Code Status on File Code Status Date Activated Date Inactivated Comments Full Code 09/03/2007 7:29 AM 09/03/2007 4:02 PM Care Teams Electrolog Operator Relationship Specialty Start Date End Date Juancho Romero MD [address] [place] [address] [place] [address] PCP - General Family Medicine 12/27/16 documented as of this encounter
--- OUTSIDE RECORDS SUMMARY | 2024-01-23 21:03 | External Medical Summary ---
Author Name Unknown Address Unknown Organization K01:LABORATORY [facility] - 100 [facility] [place] [address] Laboratory Report Ordering Provider Test Date Status ADRIENNE SALCIDO 01/01/2024 10:35:32 Final Observation Date Value Abnormality Reference (Units ) Status SYNC LEUKOCYTES IN BLOOD BY AUTOMATED COUNT 01/01/2024 10:35:32 5.43 4.00-10.80 (K/uL) Final Segs 01/01/2024 10:35:32 75.5 Above high normal 40.0-75.0 (%) Final Lymphs % 01/01/2024 10:35:32 11.0 Below low normal 18.0-42.0 (%) Final Monos 01/01/2024 10:35:32 9.2 1.0-11.0 (%) Final Eosinophils 01/01/2024 10:35:32 1.7 0.0-6.0 (%) Final Basos 01/01/2024 10:35:32 0.9 0.0-2.0 (%) Final Immature Granulocyte, Percent 01/01/2024 10:35:32 1.7 0.0-2.0 (%) Final Absolute Segs 01/01/2024 10:35:32 4.10 1.80-7.70 (K/uL) Final Lymphs, absolute 01/01/2024 10:35:32 0.60 Below low normal 1.00-4.80 (K/ul) Final Monos, Abs 01/01/2024 10:35:32 0.50 0.00-1.10 (K/uL) Final Eos, Abs 01/01/2024 10:35:32 0.09 0.00-0.70 (K/uL) Final Basos, Abs 01/01/2024 10:35:32 0.05 0.00-0.20 (K/uL) Final Immature Granulocytes, Number 01/01/2024 10:35:32 0.09 0.00-0.20 (K/uL) Final Performing Location LABORATORY [facility] - [facility] [address] [place] [address]. [facility] [address]
--- OUTSIDE RECORDS SUMMARY | 2024-01-23 21:03 | External Medical Summary | Summary of Care ---
Author Name Unknown Organization [facility] Address [address] [place] [address] Phone [phone] Care Team Providers Care Hide Splitter Name Role Phone Juancho Romero MD Primary Care Provider [phone] Encounter Details Date Type Department Care Team (Late st Contact Info) Description 12/23/2023 Orders Only Hematology/Oncology [facility] [place] [address] [place] [address] Ree Rodriguez CRNP [address] [place] [address] Allergies Active Allergy Reactions Criticality Noted Date Comments Penicillins Other (Please comment),Rash High Eyes swell Pollen 05/03/2022 Wound Dressing Adhesive Rash 05/02/2023 Patient reported documented as of this encounter (statuses as of 12/30/2023) Medications Medication Sig Dispensed Refills Start Date [...] albuterol 120 mL 5 11/21/2022 Active Ipratropium [place] 0.02 % Inhalation Solution (Atrovent)Indicatio ns:Moderate persistent [...] Respimat 2.5 MCG/ACT Inhalation Aerosol Solution (Tiotropium [place] Monohydrate)Indicat ions:Moderate persistent asthma without complication INHALE [...] as of this encounter (statuses as of 12/30/2023) Active Problems Problem Noted Date Diagnosed Date [...] rinse after steroid. Test performed by Sameer [employer]PERVISOR WOOD [employer] CPFT Pleural plaque due to asbestos exposure Restrictive lung disease Overview: In Check dial performed to assess inhaler technique: 12/15/19 Name of inhalers Albuterol Pass: Yes at 60 L/min and Advair Pass: Yes at 60 L/min. Encouraged to to take deep breath, use aero chamber, and rinse after steroid. Test performed by Sameer [employer]PER[employer] CPFT Hx of pulmonary embolus 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 Overview: [place] C0-M6 documented as of this encounter (statuses as of 12/30/2023) Resolved Problems Problem Noted Date Diagnosed Date [...] as of this encounter (statuses as of 12/30/2023) Immunizations Name Administration Dates Next Due COVID-19 mRNA, LNP-s, No Pre serve, 2-Dose Series (Co-Work) 12/01/2021,01/16/2021,12/26/2020 COVID-19, LNP-s, No Preserve , Ozzy-sucrose, Ages 12+ (Pfizer) 12/01/2021 COVID-19, MRNA-LNP, 23-24, P F, 30 MCG/0.3 mL, 12 YRS AND ABOVE, IM ([place]) 09/18/2023 Covid-19, Mrna, Lnp-s, Pf, B ivalent, 30 Mcg, IM, 12 yrs and above (Pfizer) 10/09/2022 Pneumococcal Conjugate Vacc, 13 Valent (Prevnar) [...] 12/31/2023 1:00 PM EST Cardiac Studies Cardiology [address] [place] [address] [facility] 132 [place] [address] 01/01/2024 9:00 AM EST Laboratory Laboratory [address] [place] [phone] [address] [place] [address] 01/02/2024 11:00 AM EST Immunization/Injection Hematology/Oncology Treatment, [place] [address] [place] [address] Nurse, Med [address] [facility] [address] 01/03/2024 10:30 AM EST Imaging Radiology [facility] 1st [facility] [address] [place] [address] 01/07/2024 9:00 AM EST Laboratory Laboratory [address] [place] [phone] [place] [address] 01/08/2024 10:00 AM EST Office Visit Hematology/Oncology [facility] 200 [facility] [place] [address] Ludwig Louis MD 200 [facility] [place] [address] 01/08/2024 11:00 AM EST Immunization/Injection Hematology/Oncology Treatment, [place] 200 [facility] [place] [address] Nurse, Med 4 200 [facility] [place] [address] 01/09/2024 6:30 AM EST Anticoagulation Pharmacy Call Center [address] [place] [address] Ccps, [facility] 58 60 [facility] [place] [address] 02/03/2024 10:00 AM EDT Office Visit Ophthalmology, [facility] 132 [place] [address] Pablo Casanvoa T, DO [address] [place] [address] 02/11/2024 10:00 AM EDT Office Visit Family Medicine [address] [place] [phone] Bell Mcqueen MD [address] [place] [address] [place] [address] 08/10/2024 1:40 PM EDT Office Visit Rheumatology [address] [place] [phone] Win Nielsen MD [address] [facility] [place] [address] Scheduled Procedures Name Priority Associated Diagnoses Date/Ti me ESOPHAGOGASTRODUODENOSCOPY ( EGD), FLEXIBLE, TRANSORAL, DIAGNOSTIC Recall Stark's esophagus with dysplasia Health Maintenance Due Date Last Done Comments Depression Screening 07/12/2021 07/12/2020 CKD PHOS USE SMARTSET 49462 08/21/2022 100 02/2021, 07/12/2020, 03/13/2019, Additional history exists *BISPHONATE OR OTHER ACCEPTABLE MEDICATION NEEDED FOR OSTEOPOROSIS (REFER TO SMARTSET #1146) 10/14/2023 Albumin/Creatinine Ratio 04/22/2024 023, 05/24/2022, 03/26/2022, Additional history exists TSH 10/08/2024 10/08/2023, 100 01/2023, 06/19/2023, Additional history exists CKD HGB USE SMARTSET 31883 12/25/202412/25, 12/25/2023, 12/18/2023, Additional history exists Stark's Esophagus Surveilance 02/26/2025 02/26/2022, 02/26/2022, 07/04/2021, Additional history exists DXA Scan 07/05/2025 07/05/2023, 10/19, 11/04/2018, Additional history exists DTaP,Tdap,and Td Vaccines (2 - Td or Tdap) 08/19/2027 08/19/2017, 08/20/2008 Pneumococcal Vaccine: 65+ Years Completed 06/23/2015, 05/14/2013, 04/18/2004 Zoster Vaccines Completed 12/02/2020, 08/15/2020 VITAMIN D LEVEL ONCE IN A LIFETIME-USE SMARTSET# [id number] Completed 04/22/2023, 08/28/2021, 07/14/2015 Influenza Vaccine (FLU [...] this encounter Medical Devices Implanted Type Area Veterinary Nurse Device Identifier Shelf Expiration Date Model / Serial / Lot Power Port 8fr Sngl Lumen Plas - [id number] Implanted:Qty: 1 on 02/22/2022 at [facility] CR [facility]ARD : PERIPHERAL VASCULAR [id number] 02/15/2023 [id number] / / [id number] documented as of this encounter Advance Directives Latest Code Status on File Code Status Date Activated Date Inactivated Comments Full Code 09/03/2007 7:29 AM 09/03/2007 4:02 PM Care Teams Hide Splitter Relationship Specialty Start Date End Date Juancho Romero MD [address] [place] [address] [place] [address] PCP - General Family Medicine 12/27/16 documented as of this encounter
--- OUTSIDE RECORDS SUMMARY | 2024-01-23 21:03 | External Medical Summary ---
Author Name Unknown Address Unknown Organization K01:LABORATORY [facility] - [facility] [address] [facility] [address] [place] [address] Laboratory Report Ordering Provider Test Date Status ADRIENNE SALCIDO 01/01/2024 10:35:32 Final Observation Date Value Abnormality Reference (Units ) Status WBC, Total 01/01/2024 10:35:32 5.43 4.00-10.80 (K/uL) Final RBC 01/01/2024 10:35:32 3.67 4.50-5.25 (M/uL) Final Hemoglobin 01/01/2024 10:35:32 10.5 Below low normal 14.0-16.8 (g/dL) Final HCT 01/01/2024 10:35:32 35.7 Below low normal 40.0-48.4 (%) Final MCV 01/01/2024 10:35:32 97.3 82.0-99.5 (fL) Final MCH 01/01/2024 10:35:32 28.6 27.0-34.0 (pg) Final MCHC 01/01/2024 10:35:32 29.4 32.0-36.0 (g/dL) Final RDW 01/01/2024 10:35:32 16.1 11.5-15.5 (%) Final Platelets 01/01/2024 10:35:32 119 Below low normal 140-400 (K/uL) Final MPV 01/01/2024 10:35:32 11.9 6.6-11.1 (fL) Final Nucleated erythrocytes/100 leukocytes [Ratio] in Blood by Automated count 01/01/2024 10:35:32 0 <=0 (/100 WBCs) Final Performing Location LABOR[facility]ORY [facility] - [address] [place] [address]
--- OUTSIDE RECORDS SUMMARY | 2024-01-23 21:03 | External Medical Summary ---
Author Name Unknown Address Unknown Organization K01:[facility]ORY [facility] - [address] [place] [address] Laboratory Report Ordering Provider Test Date Status KASIA LEE 01/01/2024 10:35:32 Final Observation Date Value Abnormality Reference (Units ) Status MYCODE SPECIMEN-SST 01/01/2024 10:35:32 Freezing of extracted DNA, whole blood and/or serum. Final Performing Location LABORATORY C - [address] [place] [address]
--- OUTSIDE RECORDS SUMMARY | 2024-01-23 21:04 | External Medical Summary | Summary of Care ---
Author Name Unknown Organization [facility] Address [address] [place] [address] Phone [phone] Care Team Providers Care Traffic Observer Name Role Phone Juancho Romero MD Primary Care Provider Reason for Visit * Reason Onset Date Comments Appointment 12/26/2023 [facility] appointment Encounter Details Date Type Department Care Team (Late st Contact Info) Description 12/26/2023 Telephone Cardiology, [facility] [address] [place] [address] [facility] 132 [place], [place] [phone] Appointment ([facility] appointment ) Allergies Active Allergy Reactions Criticality Noted Date [...] albuterol 120 mL 5 11/21/2022 Active Ipratropium [place] 0.02 % Inhalation Solution (Atrovent)Indicatio ns:Moderate persistent [...] Respimat 2.5 MCG/ACT Inhalation Aerosol Solution (Tiotropium [place] Monohydrate)Indicat ions:Moderate persistent asthma without complication INHALE [...] rinse after steroid. Test performed by Sameer BUTCHER APPRENTICE CPFT Pleural plaque due to asbestos exposure Restrictive lung disease Overview: In Check dial performed to assess inhaler technique: 12/15/19 Name of inhalers Albuterol Pass: Yes at 60 L/min and Advair Pass: Yes at 60 L/min. Encouraged to to take deep breath, use aero chamber, and rinse after steroid. 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 05/30/2005 [...] mRNA, LNP-s, No Pre serve, 2-Dose Series (S[employer] Hound) 12/01/2021,01/16/2021,12/26/2020 COVID-19, LNP-s, No Preserve , Ozzy-sucrose, Ages 12+ (Pfizer) 12/01/2021 COVID-19, MRNA-LNP, 23-24, P F, 30 MCG/0.3 mL, 12 YRS AND ABOVE, IM ([facility]) 09/18/2023 Covid-19, Mrna, Lnp-s, Pf, B ivalent, 30 Mcg, IM, 12 yrs and above (S[employer] Hound) 10/09/2022 Pneumococcal Conjugate Vacc, 13 Valent (Prevnar) [...] encounter Miscellaneous Notes * Telephone Encounter - Farnaz Ruiz LPN - 12/26/2023 7:01 AM EST [employer] message sent to patient regarding [facility] appointment documented in this encounter Plan of Treatment Upcoming Encounters Date Type Department Care Team (Late st Contact Info) Description 12/31/2023 1:00 PM EST Cardiac Studies Cardiology [address] [place] [address] [facility] [place] [address] [place] [address] 01/01/2024 6:30 AM EST Anticoagulation Pharmacy Call Center 58-60 [facility] [place] [address] [facility] 58 60 [facility] [place] [address] 01/01/2024 9:00 AM EST Laboratory Laboratory [address] [place] [address] [facility] [address] [place] [address] 01/02/2024 11:00 AM EST Immunization/Injection Hematology/Oncology Treatment, [place] 200 [place] [address] Nurse, Med 4 200 [facility] [place] [address] 01/03/2024 10:30 AM EST Imaging Radiology [facility] 1st [facility] 132 [place] [address] 01/07/2024 9:00 AM EST Laboratory Laboratory [address] [place] [phone] [place] [address] 01/08/2024 10:00 AM EST Office Visit Hematology/Oncology [facility] 200 [facility] [place] [address] Ludwig Louis MD 200 [facility] [place] [address] 01/08/2024 11:00 AM EST Immunization/Injection Hematology[facility], [place] [facility] [address] Nurse, Med 4 200 [facility] [place] [address] 02/03/2024 10:00 AM EDT Office Visit Ophthalmology, [facility] 132 [facility] [place] [address] Pablo Casanova T, DO [address] [place] [address] 02/11/2024 10:00 AM EDT Office Visit Family Medicine [address] [place] [phone] Bell Mcqueen MD [address] [place] [address] [place] [address] 08/10/2024 1:40 PM EDT Office Visit Rheumatology [address] [place] [phone] Win Nielsen MD [address] [facility] [address] [place] [address] Scheduled Procedures Name Priority Associated Diagnoses Date/Ti me ESOPHAGOGASTRODUODENOSCOPY ( EGD), FLEXIBLE, TRANSORAL, DIAGNOSTIC Recall Stark's esophagus with dysplasia Health Maintenance Due Date Last Done Comments Depression Screening 07/12/2021 07/12/2020 CKD PHOS USE SMARTSET 83943 08/21/202202/2021, 07/12/2020, 03/13/2019, Additional history exists *BISPHONATE OR OTHER ACCEPTABLE MEDICATION NEEDED FOR OSTEOPOROSIS (REFER TO SMARTSET #1146) 10/14/2023 Albumin/Creatinine Ratio 04/22/2024 023, 05/24/2022, 03/26/2022, Additional history exists TSH 10/08/2024 10/08/2023, 01/2023, 06/19/2023, Additional history exists CKD HGB USE SMARTSET 75298 12/25/202412/25, 12/25/2023, 12/18/2023, Additional history exists Stark's Esophagus Surveilance 02/26/2025 02/26/2022, 02/26/2022, 07/04/2021, Additional history exists DXA Scan 07/05/2025 07/05/2023, 10/19, 11/04/2018, Additional history exists DTaP,Tdap,and Td Vaccines (2 - Td or Tdap) 08/19/2027 08/19/2017, 08/20/2008 Pneumococcal Vaccine: 65+ Years Completed 06/23/2015, 05/14/2013, 04/18/2004 Zoster Vaccines Completed 12/02/2020, 08/15/2020 VITAMIN D LEVEL ONCE IN A LIFETIME-USE SMARTSET# [id number] Completed 04/22/2023, 08/28/2021, 07/14/2015 Influenza Vaccine (FLU [...] this encounter Medical Devices Implanted Type Area Manager Culture Device Identifier Shelf Expiration Date Model / Serial / Lot Power Port 8fr Sngl Lumen Plas - [id number] Implanted:Qty: 1 on 02/22/2022 at [facility] CR BARD : PERIPHERAL VASCULAR [id number] 02/15/2023 [id number] / / [id number] documented as of this encounter Advance Directives Latest Code Status on File Code Status Date Activated Date Inactivated Comments Full Code 09/03/2007 7:29 AM 09/03/2007 4:02 PM Care Teams Traffic Observer Relationship Specialty Start Date End Date Juancho Romero MD [address] [place] [address] [place] [phone] PCP - General Family Medicine 12/27/16 documented as of this encounter
--- OUTSIDE RECORDS SUMMARY | 2024-01-23 21:04 | External Medical Summary | Summary of Care ---
Author Name Unknown Organization [facility] Address [address] [place] [address] Phone [phone] Care Team Providers Care Geophysical Observer Name Role Phone Juancho Romero MD Primary Care Provider [phone] Encounter Details Date Type Department Care Team (Late st Contact Info) Description 12/25/2023 Result Scan Unspecified Department Tammie Scruggs, formerly [facility] [address] [place] [address] <No scans attached> Allergies Active Allergy Reactions Criticality Noted Date Comments Penicillins Other (Please comment),Rash High Eyes swell Pollen 05/03/2022 Wound Dressing Adhesive Rash 05/02/2023 Patient reported documented as of this encounter (statuses as of 12/25/2023) Medications Medication Sig Dispensed Refills Start Date [...] albuterol 120 mL 5 11/21/2022 Active Ipratropium [place] 0.02 % Inhalation Solution (Atrovent)Indicatio ns:Moderate persistent [...] Respimat 2.5 MCG/ACT Inhalation Aerosol Solution (Tiotropium [place] Monohydrate)Indicat ions:Moderate persistent asthma without complication INHALE 2 PUFFS BY MOUTH EVERY DAY 12 g 3 04/30/2023 Active Rosuvastatin Calcium 10 MG Oral Tablet (Crestor) TAKE 1 TABLET BY MOUTH EVERY DAY 90 Tablet 1 05/27/2023 Active Warfarin Sodium 5 MG Oral Tablet (Coumadin)Indicatio ns:Pulmonary embolism and infarction (HCC) Take 0.5-1 Tablets by mouth every evening. Or take as instructed by the [facility] 90 Tablet 3 08/09/2023 [...] as of this encounter (statuses as of 12/25/2023) Active Problems Problem Noted Date Diagnosed Date [...] rinse after steroid. Test performed by Sameer VENEER SAWYER CPFT Pleural plaque due to asbestos exposure Restrictive lung disease Overview: In Check dial performed to assess inhaler technique: 12/15/19 Name of inhalers Albuterol Pass: Yes at 60 L/min and Advair Pass: Yes at 60 L/min. Encouraged to to take deep breath, use aero chamber, and rinse after steroid. Test performed by Sameer VENEER SAWYER CPFT Hx of pulmonary embolus 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 Overview: [place] C0-M6 documented as of this encounter (statuses as of 12/25/2023) Resolved Problems Problem Noted Date Diagnosed Date [...] Malignant neoplasm of prostate 09/23/2008 03/27/2018 Overview: Lennox grade 3 Atrial flutter 09/02/2007 10/16/2007 Herpes simplex virus infection 08/22/2005 04/05/2016 Anal fissure 06/04/2005 10/16/2007 correction current use of ant icoagulant therapy 05/30/2005 [...] as of this encounter (statuses as of 12/25/2023) Immunizations Name Administration Dates Next Due COVID-19 mRNA, LNP-s, No Pre serve, 2-Dose Series (turboBOTZ) 12/01/2021,01/16/2021,12/26/2020 COVID-19, LNP-s, No Preserve , Ozzy-sucrose, Ages 12+ (Pfizer) 12/01/2021 COVID-19, MRNA-LNP, 23-24, P F, 30 MCG/0.3 mL, 12 YRS AND ABOVE, IM ([employer]) 09/18/2023 Covid-19, Mrna, Lnp-s, Pf, B ivalent, 30 Mcg, IM, 12 yrs and above (turboBOTZ) 10/09/2022 Pneumococcal Conjugate Vacc, 13 Valent (Prevnar) [...] 6:45 AM EST Anticoagulation Pharmacy Call Center 5860 [facility] [place] [address] [place] [address] Hx of pulmonary embolus*; Longstanding persistent atrial fibrillation (HCC) 12/26/2023 11:00 AM EST Immunization/Injection Hematology/Oncolo gy Treatment, [place] [address] [place] [address] Nurse, Med [address] [facility] [address] 12/31/2023 1:00 PM EST Cardiac Studies Cardiology [address] [place] [address] [place] [address] [place] [address] 01/01/2024 6:30 AM EST Anticoagulation Pharmacy Call Center 5860 [facility] [place] [address] [place] [address] 01/01/2024 9:00 AM EST Laboratory Laboratory [address] [place] [phone] [address] [place] [address] 01/02/2024 11:00 AM EST Immunization/Injection Hematology/Oncolo gy Treatment, [place] 200 [facility] [place] [address] Nurse, Med 4 200 [facility] [place] [address] 01/03/2024 10:30 AM EST Imaging Radiology [facility] 1st [facility] 132 [facility] [address] 01/07/2024 9:00 AM EST Laboratory Laboratory [address] [place] [phone] [place] [address] 01/08/2024 10:00 AM EST Office Visit Hematology/Oncolo gy [facility] 200 [facility] [place] [address] Ludwig Louis MD [address] [place] [address] 01/08/2024 11:00 AM EST Immunization/Injection Hematology/Oncolo gy Treatment, [place] 200 [facility] [place] [address] Nurse, Med 4 200 [facility] [place] [address] 02/03/2024 10:00 AM EDT Office Visit Ophthalmology, [facility] 132 [facility] [place] [address] Pablo Casanova T, [address] [address] 02/11/2024 10:00 AM EDT Office Visit Family Medicine [address] [place] [phone] Bell Mcqueen MD [address] [place] [address] [place] [address] 08/10/2024 1:40 PM EDT Office Visit Rheumatology [address] [place] [phone] Win Nielsen MD [facility]0 [facility] [place] [address] Scheduled Procedures Name Priority Associated Diagnoses Date/Ti me ESOPHAGOGASTRODUODENOSCOPY ( EGD), FLEXIBLE, TRANSORAL, DIAGNOSTIC Recall Stark's esophagus with dysplasia Health Maintenance Due Date Last Done Comments Depression Screening 07/12/2021 07/12/2020 CKD PHOS USE SMARTSET 28824 08/21/202202/2021, 07/12/2020, 03/13/2019, Additional history exists *BISPHONATE OR OTHER ACCEPTABLE MEDICATION NEEDED FOR OSTEOPOROSIS (REFER TO SMARTSET #1146) 10/14/2023 Albumin/Creatinine Ratio 04/22/2024 023, 05/24/2022, 03/26/2022, Additional history exists TSH 10/08/2024 10/08/2023, 01/2023, 06/19/2023, Additional history exists CKD HGB USE SMARTSET 21440 12/25/202412/25, 12/25/2023, 12/18/2023, Additional history exists Stark's Esophagus Surveilance 02/26/2025 02/26/2022, 02/26/2022, 07/04/2021, Additional history exists DXA Scan 07/05/2025 07/05/2023, 10/19, 11/04/2018, Additional history exists DTaP,Tdap,and Td Vaccines (2 - Td or Tdap) 08/19/2027 08/19/2017, 08/20/2008 Pneumococcal Vaccine: 65+ Years Completed 06/23/2015, 05/14/2013, 04/18/2004 Zoster Vaccines Completed 12/02/2020, 08/15/2020 VITAMIN D LEVEL ONCE IN A LIFETIME-USE SMARTSET# [id number] Completed 04/22/2023, 08/28/2021, 07/14/2015 Influenza Vaccine (FLU [...] this encounter Medical Devices Implanted Type Area Slip Cover Sewer Device Identifier Shelf Expiration Date Model / Serial / Lot Power Port 8fr Sngl Lumen Plas - [id number] Implanted:Qty: 1 on 02/22/2022 at [facility] CR BARD : PERIPHERAL VASCULAR [id number] 02/15/2023 [id number] / / [id number] documented as of this encounter Procedures Procedure Name Priority Date/Time Associated Diagnosis Comments OUTSIDE LAB RESULTS 12/25/2023 documented in this encounter Results * OUTSIDE LAB RESULTS (12/25/2023) 12/25/2023 Tammie Scruggs formerly [facility] documented in this encounter Advance Directives Latest Code Status on File Code Status Date Activated Date Inactivated Comments Full Code 09/03/2007 7:29 AM 09/03/2007 4:02 PM Care Teams Geophysical Observer Relationship Specialty Start Date End Date Juancho Romero MD [address] [place] [address] [place] [address] PCP - General Family Medicine 12/27/16 documented as of this encounter
--- OUTSIDE RECORDS SUMMARY | 2024-01-23 21:04 | External Medical Summary | Summary of Care ---
Author Name Unknown Organization [facility] Address [address] [place] [address] Phone [phone] Care Team Providers Care Glove Maker Name Role Phone Juancho Romero MD Primary Care Provider [phone] Reason for Visit * Reason Onset Date Comments Appointment 12/26/2023 [facility] appointment Encounter Details Date Type Department Care Team (Late st Contact Info) Description 12/26/2023 Telephone Cardiology, [facility] 132 [place] [address] [facility] 132 [place], [place] [phone] Appointment ([facility] appointment ) Allergies Active Allergy Reactions [...] albuterol 120 mL 5 11/21/2022 Active Ipratropium [place] 0.02 % Inhalation Solution (Atrovent)Indicatio ns:Moderate persistent [...] Respimat 2.5 MCG/ACT Inhalation Aerosol Solution (Tiotropium [place] Monohydrate)Indicat ions:Moderate persistent asthma without complication INHALE 2 PUFFS BY MOUTH EVERY DAY 12 g 3 04/30/2023 Active Rosuvastatin Calcium 10 MG Oral Tablet (Crestor) TAKE 1 TABLET BY MOUTH EVERY DAY 90 Tablet 1 05/27/2023 Active Warfarin Sodium 5 MG Oral Tablet (Coumadin)Indicatio ns:Pulmonary embolism and infarction (HCC) Take 0.5-1 Tablets by mouth every evening. Or take as instructed by the [facility] 90 Tablet 3 08/09/2023 [...] rinse after steroid. Test performed by Sameer SOLDERING MACHINE FEEDER CPFT Pleural plaque due to asbestos exposure Restrictive lung disease Overview: In Check dial performed to assess inhaler technique: 12/15/19 Name of inhalers Albuterol Pass: Yes at 60 L/min and Advair Pass: Yes at 60 L/min. Encouraged to to take deep breath, use aero chamber, and rinse after steroid. 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 icoagulant therapy 05/30/2005 [...] mRNA, LNP-s, No Pre serve, 2-Dose Series ([employer] Live) 12/01/2021,01/16/2021,12/26/2020 COVID-19, LNP-s, No Preserve , Ozzy-sucrose, Ages 12+ (Pfizer) 12/01/2021 COVID-19, MRNA-LNP, 23-24, P F, 30 MCG/0.3 mL, 12 YRS AND ABOVE, IM ([facility]) 09/18/2023 Covid-19, Mrna, Lnp-s, Pf, B ivalent, 30 Mcg, IM, 12 yrs and above ([employer]) 10/09/2022 Pneumococcal Conjugate Vacc, 13 Valent (Prevnar) [...] Miscellaneous Notes * Telephone Encounter - Farnaz uRiz LPN - 12/26/2023 7:01 AM EST [employer] message sent to patient regarding [facility] appointment documented in this encounter Plan of Treatment Upcoming Encounters Date Type Department Care Team (Late st Contact Info) Description 12/31/2023 1:00 PM EST Cardiac Studies Cardiology [address] [place] [address] [facility] [address] [address] 01/01/2024 6:30 AM EST Anticoagulation Pharmacy Call Center 58-60 [facility] [place] [address] [facility] 58 60 [facility] [place] [address] 01/01/2024 9:00 AM EST Laboratory Laboratory [address] [place] [phone] [facility] [address] [place] [address] 01/02/2024 11:00 AM EST Immunization/Injection Hematology/Oncology Treatment, [place] 200 [place] [address] Nurse, Med 4 200 [facility] [place] [address] 01/03/2024 10:30 AM EST Imaging Radiology [facility] 1st [facility] 132 [place] [address] 01/07/2024 9:00 AM EST Laboratory Laboratory [address] [place] [phone] [place] [address] 01/08/2024 10:00 AM EST Office Visit Hematology/Oncology [facility] 200 [facility] [place] [address] Ludwig Louis MD 200 [facility] [place] [address] 01/08/2024 11:00 AM EST Immunization/Injection Hematology/Oncology Treatment, [place] 200 [facility] [address] Nurse, Med 4 200 [facility] [place] [address] 02/03/2024 10:00 AM EDT Office Visit Ophthalmology, [facility] 132 [facility] [place] [address] Pablo Casanova T, DO [address] [place] [address] 02/11/2024 10:00 AM EDT Office Visit Family Medicine [address] [place] [phone] Bell Mcqueen MD [address] [place] [address] [place] [address] 08/10/2024 1:40 PM EDT Office Visit Rheumatology [address] [place] [phone] Win Nielsen MD [address] [facility] [address] [place] [address] Scheduled Procedures Name Priority Associated Diagnoses Date/Ti me ESOPHAGOGASTRODUODENOSCOPY ( EGD), FLEXIBLE, TRANSORAL, DIAGNOSTIC Recall Stark's esophagus with dysplasia Health Maintenance Due Date Last Done Comments Depression Screening 07/12/2021 07/12/2020 CKD PHOS USE SMARTSET 74432 08/21/202202/2021, 07/12/2020, 03/13/2019, Additional history exists *BISPHONATE OR OTHER ACCEPTABLE MEDICATION NEEDED FOR OSTEOPOROSIS (REFER TO SMARTSET #1146) 10/14/2023 Albumin/Creatinine Ratio 04/22/2024 023, 05/24/2022, 03/26/2022, Additional history exists TSH 10/08/2024 10/08/2023, 01/2023, 06/19/2023, Additional history exists CKD HGB USE SMARTSET 88767 12/25/202412/25, 12/25/2023, 12/18/2023, Additional history exists Stark's Esophagus Surveilance 02/26/2025 02/26/2022, 02/26/2022, 07/04/2021, Additional history exists DXA Scan 07/05/2025 07/05/2023, 10/19, 11/04/2018, Additional history exists DTaP,Tdap,and Td Vaccines (2 - Td or Tdap) 08/19/2027 08/19/2017, 08/20/2008 Pneumococcal Vaccine: 65+ Years Completed 06/23/2015, 05/14/2013, 04/18/2004 Zoster Vaccines Completed 12/02/2020, 08/15/2020 VITAMIN D LEVEL ONCE IN A LIFETIME-USE SMARTSET# [id number] Completed 04/22/2023, 08/28/2021, 07/14/2015 Influenza Vaccine (FLU [...] this encounter Medical Devices Implanted Type Area Fund Raiser Device Identifier Shelf Expiration Date Model / Serial / Lot Power Port 8fr Sngl Lumen Plas - [id number] Implanted:Qty: 1 on 02/22/2022 at [facility] CR BARD : PERIPHERAL VASCULAR [id number] 02/15/2023 [id number] / / [id number] documented as of this encounter Advance Directives Latest Code Status on File Code Status Date Activated Date Inactivated Comments Full Code 09/03/2007 7:29 AM 09/03/2007 4:02 PM Care Teams Glove Maker Relationship Specialty Start Date End Date Juancho Romero MD [address] [place] [address] [place] [phone] PCP - General Family Medicine 12/27/16 documented as of this encounter
--- OUTSIDE RECORDS SUMMARY | 2024-01-23 21:04 | External Medical Summary ---
Author Name Unknown Address Unknown Organization K01:[facility] [place] [address] Laboratory Report Ordering Provider Test Date Status ADRIENNE SALCIDO 12/25/2023 09:19:53 Final Observation Date Value Abnormality Reference (Units ) Status SYNC LEUKOCYTES IN BLOOD BY AUTOMATED COUNT 12/25/2023 09:19:53 4.37 4.00-10.80 (K/uL) Final Segs 12/25/2023 09:19:53 72.6 40.0-75.0 (%) Final Lymphs % 12/25/2023 09:19:53 13.7 Below low normal 18.0-42.0 (%) Final Monos 12/25/2023 09:19:53 9.4 1.0-11.0 (%) Final Eosinophils 12/25/2023 09:19:53 1.8 0.0-6.0 (%) Final Basos 12/25/2023 09:19:53 1.1 0.0-2.0 (%) Final Immature Granulocyte, Percent 12/25/2023 09:19:53 1.4 0.0-2.0 (%) Final Absolute Segs 12/25/2023 09:19:53 3.17 1.80-7.70 (K/uL) Final Lymphs, absolute 12/25/2023 09:19:53 0.60 Below low normal 1.00-4.80 (K/ul) Final Monos, Abs 12/25/2023 09:19:53 0.41 0.00-1.10 (K/uL) Final Eos, Abs 12/25/2023 09:19:53 0.08 0.00-0.70 (K/uL) Final Basos, Abs 12/25/2023 09:19:53 0.05 0.00-0.20 (K/uL) Final Immature Granulocytes, Number 12/25/2023 09:19:53 0.06 0.00-0.20 (K/uL) Final Performing Location [facility] [place] [address]
--- OUTSIDE RECORDS SUMMARY | 2024-01-23 21:04 | External Medical Summary | Summary of Care ---
Author Name Unknown Organization [facility] Address [address] [place] [address] Phone [phone] Care Team Providers Care Senior Publications Specialist Name Role Phone Juancho Romero MD Primary Care Provider Reason for Visit * Reason Comments Post-Op Encounter Details Date Type Department Care Team (Late st Contact Info) Description 12/23/2023 9:30 AM EST Office Visit Ophthalmology, [facility] [address] [place] [address] Pablo Casanova, DO [address] [place] [address] Senile ectropion of right lower eyelid*; Cicatricial ectropion of left lower eyelid Allergies Active Allergy Reactions Criticality Noted Date Comments Penicillins Other (Please comment),Rash High Eyes swell Pollen 05/03/2022 Wound Dressing Adhesive Rash 05/02/2023 Patient reported documented as of this encounter (statuses as of 12/23/2023) Medications Medication Sig Dispensed Refills Start Date [...] albuterol 120 mL 5 11/21/2022 Active Ipratropium [place] 0.02 % Inhalation Solution (Atrovent)Indicatio ns:Moderate persistent [...] Respimat 2.5 MCG/ACT Inhalation Aerosol Solution (Tiotropium [place] Monohydrate)Indicat ions:Moderate persistent asthma without complication INHALE [...] at bedtime. 3.5 g 3 12/16/2023 Active Hospital, Clinic, or Other Facility Administered Medication Ordered Dose Route Frequency Start Date End Date Status Albuterol Sulfate (Proventil) (5 MG/ML) 0.5% *conc* inhalation solution 2.5 mgIndications:Restricti ve lung disease,Moderate persistent asthma without complication 2.5 mg NEBULIZER PRN 12/25/2022 12/25/2023 Acti ve Albuterol Sulfate (Proventil) (2.5 MG/3ML) 0.083% inhalation solution 2.5 mgIndications:Restricti ve lung disease,Moderate persistent asthma without complication 2.5 mg NEBULIZER PRN 12/25/2022 12/25/2023 Acti ve documented as of this encounter (statuses as of 12/23/2023) Active Problems Problem Noted Date Diagnosed Date [...] rinse after steroid. Test performed by Sameer HOUSEKEEPING LEAD CPFT Pleural plaque due to asbestos exposure Restrictive lung disease Overview: In Check dial performed to assess inhaler technique: 12/15/19 Name of inhalers Albuterol Pass: Yes at 60 L/min and Advair Pass: Yes at 60 L/min. Encouraged to to take deep breath, use aero chamber, and rinse after steroid. Test performed by Sameer HOUSEKEEPING LEAD CPFT Hx of pulmonary embolus 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 Overview: [place] C0-M6 documented as of this encounter (statuses as of 12/23/2023) Resolved Problems Problem Noted Date Diagnosed Date [...] Malignant neoplasm of prostate 09/23/2008 03/27/2018 Overview: [place] grade 3 Atrial flutter 09/02/2007 10/16/2007 Herpes simplex virus infection 08/22/2005 04/05/2016 Anal fissure 06/04/2005 10/16/2007 snf current use of ant icoagulant therapy 05/30/2005 [...] as of this encounter (statuses as of 12/23/2023) Immunizations Name Administration Dates Next Due COVID-19 mRNA, LNP-s, No Pre serve, 2-Dose Series ([email or web address]) 12/01/2021,01/16/2021,12/26/2020 COVID-19, LNP-s, No Preserve , Ozzy-sucrose, Ages 12+ ([email or web address]) 12/01/2021 COVID-19, MRNA-LNP, 23-24, P F, 30 MCG/0.3 mL, 12 YRS AND ABOVE, IM (WireOver-Comirnat) 09/18/2023 Covid-19, Mrna, Lnp-s, Pf, B ivalent, 30 Mcg, IM, 12 yrs and above ([email or web address]) 10/09/2022 Pneumococcal Conjugate Vacc, 13 Valent (Prevnar) [...] as of this encounter Progress Notes * Pablo Casanova DO - 12/23/2023 9:41 AM EST Patrick Robles seen for 2 weeks post bilateral LTS tolerated well less redness. circulation tender. LLL: incisions intact good apposition C/S: Normal Cornea: Clear Assessment: 2 weeks S/P LTS Both Eyes. Looks great. Plan: Erythromycin ointment QHS Return visit 6 weeks. Pt. advised to RTC sooner if there are any problems. Pablo Casanova DO documented in this encounter Nursing Notes * Sofia King LPN - 12/23/2023 9:25 AM EST Patrick Robles is a 88 year old male who presents for PO. Last Visit: 12/06/2023 (in office), Visit date not found (telemedicine) He currently states no change in vision. Are you diabetic? No Current Ophthalmic Medications: Tobradex Ointment apply to both eyes QPM Erythromycin ointment BID OU VA, IOP, current eyeglass Rx, and pupil check and dilation if needed can be found in ophth exam. documented in this encounter Plan of Treatment Upcoming Encounters Date Type Department Care Team (Late st Contact Info) Description 12/25/2023 6:30 AM EST Anticoagulation Pharmacy Call Center 58[address] [facility] [place] [address] [facility] 58 60 [facility] [place] [address] 12/25/2023 9:00 AM EST Laboratory Laboratory [address] [place] [phone] [place] [address] 12/26/2023 11:00 AM EST Immunization/Injection Hematology/Oncology Treatment, [place] [address] [place] [address] Nurse, Med 4 [address] [facility] [address] 12/31/2023 1:00 PM EST Cardiac Studies Cardiology [address] [place] [address] [facility] [address] [place] [address] 01/01/2024 9:00 AM EST Laboratory Laboratory [address] [place] [phone] [address] [place] [address] 01/02/2024 11:00 AM EST Immunization/Injection Hematology/Oncology Treatment, [place] [address] [facility] [place] [address] Nurse, Med 4 200 [place] [address] 01/03/2024 10:30 AM EST Imaging Radiology [facility] 1st [facility] 132 [place] [address] 01/07/2024 9:00 AM EST Laboratory Laboratory [address] [place] [phone] [place] [address] 01/08/2024 10:00 AM EST Office Visit Hematology/Oncology [facility] [address] [facility] [place] [address] Ludwig Loius MD [address] [facility] [place] [address] 01/08/2024 11:00 AM EST Immunization/Injection Hematology/Oncology Treatment, [place] [address] [facility] [address] Nurse, Med 4 200 [facility] [place] [address] 02/03/2024 10:00 AM EDT Office Visit Ophthalmology, [facility] [address] [place] [address] Pablo Casanova T, DO [address] [place] [address] 02/11/2024 10:00 AM EDT Office Visit Family Medicine [address] [place] [phone] Bell Mcqueen MD [address] [place] [address] [place] [address] 08/10/2024 1:40 PM EDT Office Visit Rheumatology [address] [place] [phone] Win Nielsen MD [facility] [place] [place] [address] Scheduled Procedures Name Priority Associated Diagnoses Date/Ti me ESOPHAGOGASTRODUODENOSCOPY ( EGD), FLEXIBLE, TRANSORAL, DIAGNOSTIC Recall Stark's esophagus with dysplasia Health Maintenance Due Date Last Done Comments Depression Screening 07/12/2021 07/12/2020 CKD PHOS USE SMARTSET 99518 08/21/202202/2021, 07/12/2020, 03/13/2019, Additional history exists *BISPHONATE OR OTHER ACCEPTABLE MEDICATION NEEDED FOR OSTEOPOROSIS (REFER TO SMARTSET #1146) 10/14/2023 Albumin/Creatinine Ratio 04/22/2024 023, 05/24/2022, 03/26/2022, Additional history exists TSH 10/08/2024 10/08/2023, 01/2023, 06/19/2023, Additional history exists CKD HGB USE SMARTSET 70296 12/18/202412/18, 12/18/2023, 12/11/2023, Additional history exists Stark's Esophagus Surveilance 02/26/2025 02/26/2022, 02/26/2022, 07/04/2021, Additional history exists DXA Scan 07/05/2025 07/05/2023, 10/19, 11/04/2018, Additional history exists DTaP,Tdap,and Td Vaccines (2 - Td or Tdap) 08/19/2027 08/19/2017, 08/20/2008 Pneumococcal Vaccine: 65+ Years Completed 06/23/2015, 05/14/2013, 04/18/2004 Zoster Vaccines Completed 12/02/2020, 08/15/2020 VITAMIN D LEVEL ONCE IN A LIFETIME-USE SMARTSET# 12713 Completed 04/22/2023, 08/28/2021, 07/14/2015 Influenza Vaccine (FLU [...] this encounter Medical Devices Implanted Type Area Stock Room Manager Device Identifier Shelf Expiration Date Model / Serial / Lot Power Port 8fr Sngl Lumen Plas - [id number] Implanted:Qty: 1 on 02/22/2022 at [facility] CR BARD : PERIPHERAL VASCULAR [id number] 02/15/2023 [id number] / / [id number] documented as of this encounter Visit Diagnoses Diagnosis 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
--- OUTSIDE RECORDS SUMMARY | 2024-01-23 21:04 | External Medical Summary ---
Author Name Unknown Address Unknown Organization K01:[facility] [address] [place] [address] Laboratory Report Ordering Provider Test Date Status ADRIENNE SALCIDO 12/25/2023 09:19:53 Final Observation Date Value Abnormality Reference (Units ) Status WBC, Total 12/25/2023 09:19:53 4.37 4.00-10.80 (K/uL) Final RBC 12/25/2023 09:19:53 3.87 4.50-5.25 (M/uL) Final Hemoglobin 12/25/2023 09:19:53 11.1 Below low normal 14.0-16.8 (g/dL) Final HCT 12/25/2023 09:19:53 37.1 Below low normal 40.0-48.4 (%) Final MCV 12/25/2023 09:19:53 95.9 82.0-99.5 (fL) Final MCH 12/25/2023 09:19:53 28.7 27.0-34.0 (pg) Final MCHC 12/25/2023 09:19:53 29.9 32.0-36.0 (g/dL) Final RDW 12/25/2023 09:19:53 16.6 11.5-15.5 (%) Final Platelets 12/25/2023 09:19:53 106 Below low normal 140-400 (K/uL) Final MPV 12/25/2023 09:19:53 12.3 6.6-11.1 (fL) Final Nucleated erythrocytes/100 leukocytes [Ratio] in Blood by Automated count 12/25/2023 09:19:53 0 <=0 (/100 WBCs) Final Performing Location [facility] - [address] [place] [address]
--- OUTSIDE RECORDS SUMMARY | 2024-01-23 21:04 | External Medical Summary | Summary of Care ---
Author Name Unknown Organization [facility] Address [address] [place] [address] Phone [phone] Care Team Providers Care Advanced Solutions Architect Name Role Phone Juancho Romero MD Primary Care Provider [phone] Reason for Visit * Reason Comments Outpatient Testing Encounter Details Date Type Department Care Team (Late st Contact Info) Description 12/25/2023 9:00 AM EST Laboratory Laboratory [address] [place] [phone] [place] [address] Urothelial carcinoma of bladder (HCC) Allergies Active [...] albuterol 120 mL 5 11/21/2022 Active Ipratropium [place] 0.02 % Inhalation Solution (Atrovent)Indicatio ns:Moderate persistent [...] Respimat 2.5 MCG/ACT Inhalation Aerosol Solution (Tiotropium [place] Monohydrate)Indicat ions:Moderate persistent asthma without complication INHALE 2 PUFFS BY MOUTH EVERY DAY 12 g 3 04/30/2023 Active Rosuvastatin Calcium 10 MG Oral Tablet (Crestor) TAKE 1 TABLET BY MOUTH EVERY DAY 90 Tablet 1 05/27/2023 Active Warfarin Sodium 5 MG Oral Tablet (Coumadin)Indicatio ns:Pulmonary embolism and infarction (HCC) Take 0.5-1 Tablets by mouth every evening. Or take as instructed by the [facility] 90 Tablet 3 08/09/2023 [...] rinse after steroid. 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 current use of ant icoagulant therapy 05/30/2005 [...] mRNA, LNP-s, No Pre serve, 2-Dose Series ([employer]) 12/01/2021,01/16/2021,12/26/2020 COVID-19, LNP-s, No Preserve , Ozzy-sucrose, Ages 12+ ([employer]) 12/01/2021 COVID-19, MRNA-LNP, 23-24, P F, 30 MCG/0.3 mL, 12 YRS AND ABOVE, IM (POPRAGEOUS-Comirnat) 09/18/2023 Covid-19, Mrna, Lnp-s, Pf, B ivalent, 30 Mcg, IM, 12 yrs and above ([employer]) 10/09/2022 Pneumococcal Conjugate Vacc, 13 Valent (Prevnar) [...] Team (Late st Contact Info) Description 12/26/2023 11:00 AM EST Immunization/Injection Hematology/Oncology Treatment, [place] [address] [place] [address] Nurse, Med [facility] [address] 12/31/2023 1:00 PM EST Cardiac Studies Cardiology [address] [place] [address] Og Frazier [address] [place] [address] 01/01/2024 6:30 AM EST Anticoagulation Pharmacy Call Center 58[address]60 [facility] [place] [address] [facility] 58 60 [facility] [place] [address] 01/01/2024 9:00 AM EST Laboratory Laboratory [address] [place] [phone] [address] [place] [address] 01/02/2024 11:00 AM EST Immunization/Injection Hematology/Oncology Treatment, [place] 200 [facility] [place] [address] Nurse, Med [address] [place] [address] [address] 01/03/2024 10:30 AM EST Imaging Radiology [facility] 1st Floor, [place] 132 [facility] [place] [address] 01/07/2024 9:00 AM EST Laboratory Laboratory [address] [place] [phone] [address] [place] [address] 01/08/2024 10:00 AM EST Office Visit Hematology/Oncology [facility] [place] [address] [place] [address] Ludwig Louis MD [address] [place] [address] 01/08/2024 11:00 AM EST Immunization/Injection Hematology/Oncology Treatment, [place] 200 [facility] [place] [address] Nurse, Med [address] [address] 02/03/2024 10:00 AM EDT Office Visit Ophthalmology, [facility] 132 [facility] [place] [address] Pablo Casanova, DO [address] [place] [address] 02/11/2024 10:00 AM EDT Office Visit Family Medicine [address] [place] [phone] Bell Mcqueen MD [address] [place] [address] [place] [address] 08/10/2024 1:40 PM EDT Office Visit Rheumatology [address] [place] [phone] Win Nielsen MD [facility] [place] [address] Pending Results Name Type Priority Associated Diagnoses Date /Time CBC WITH WBC DIFFERENTIAL Lab STAT Urothelial carcinoma of bladder (HCC) 12/25/2023 9:19 AM EST CBC Lab STAT Urothelial carcinoma of bladder (HCC) 12/25/2023 9:19 AM EST DIFFERENTIAL, AUTOMATED Lab STAT Urothelial carcinoma of bladder ([facility]) 12/25/2023 9:19 AM EST Scheduled Procedures Name Priority Associated Diagnoses Date/Ti me ESOPHAGOGASTRODUODENOSCOPY ( EGD), FLEXIBLE, TRANSORAL, DIAGNOSTIC Recall Stark's esophagus with dysplasia Health Maintenance Due Date Last Done Comments Depression Screening 07/12/2021 07/12/2020 CKD PHOS USE SMARTSET 61459 08/21/2022 100 02/2021, 07/12/2020, 03/13/2019, Additional history exists *BISPHONATE OR OTHER ACCEPTABLE MEDICATION NEEDED FOR OSTEOPOROSIS (REFER TO SMARTSET #1146) 10/14/2023 Albumin/Creatinine Ratio 04/22/2024 023, 05/24/2022, 03/26/2022, Additional history exists TSH 10/08/2024 10/08/2023, 10/0 01/2023, 06/19/2023, Additional history exists CKD HGB USE SMARTSET 74095 12/18/202412/18, 12/18/2023, 12/11/2023, Additional history exists Stark's Esophagus Surveilance 02/26/2025 02/26/2022, 02/26/2022, 07/04/2021, Additional history exists DXA Scan 07/05/2025 07/05/2023, 10/19, 11/04/2018, Additional history exists DTaP,Tdap,and Td Vaccines (2 - Td or Tdap) 08/19/2027 08/19/2017, 08/20/2008 Pneumococcal Vaccine: 65+ Years Completed 06/23/2015, 05/14/2013, 04/18/2004 Zoster Vaccines Completed 12/02/2020, 08/15/2020 VITAMIN D LEVEL ONCE IN A LIFETIME-USE SMARTSET# [id number] Completed 04/22/2023, 08/28/2021, 07/14/2015 Influenza Vaccine (FLU [...] this encounter Medical Devices Implanted Type Area Referral Rn Device Identifier Shelf Expiration Date Model / Serial / Lot Power Port 8fr Sngl Lumen Plas - [id number] Implanted:Qty: 1 on 02/22/2022 at [facility] CR [employer]ARD : PERIPHERAL VASCULAR [id number] 02/15/2023 [id number] / / [id number] documented as of this encounter Visit Diagnoses Diagnosis Urothelial carcinoma of bladder (HCC) documented in this encounter Advance Directives Latest Code Status on File Code Status Date Activated Date Inactivated Comments Full Code 09/03/2007 7:29 AM 09/03/2007 4:02 PM Care Teams Advanced Solutions Architect Relationship Specialty Start Date End Date Juancho Romero MD [address] [place] [address] [place] [id number] PCP - General Family Medicine 12/27/16 documented as of this encounter
--- OUTSIDE RECORDS SUMMARY | 2024-01-23 21:04 | External Medical Summary | Summary of Care ---
Author Name Unknown Organization [facility] Address [address] [place] [address] Phone [phone] Care Team Providers Care Technology Integration Specialist Name Role Phone Juancho Romero MD Primary Care Provider Reason for Visit * Reason Onset Date Comments Advice 12/25/2023 Encounter Details Date Type Department Care Team (Late st Contact Info) Description 12/25/2023 Telephone Pharmacy Call Center [address] [place] [address] [facility] 58 [address] [place] [address] Advice Allergies Active Allergy Reactions Criticality Noted [...] albuterol 120 mL 5 11/21/2022 Active Ipratropium [place] 0.02 % Inhalation Solution (Atrovent)Indicatio ns:Moderate persistent [...] Respimat 2.5 MCG/ACT Inhalation Aerosol Solution (Tiotropium [place] Monohydrate)Indicat ions:Moderate persistent asthma without complication INHALE 2 PUFFS BY MOUTH EVERY DAY 12 g 3 04/30/2023 Active Rosuvastatin Calcium 10 MG Oral Tablet (Crestor) TAKE 1 TABLET BY MOUTH EVERY DAY 90 Tablet 1 05/27/2023 Active Warfarin Sodium 5 MG Oral Tablet (Coumadin)Indicatio ns:Pulmonary embolism and infarction (HCC) Take 0.5-1 Tablets by mouth every evening. Or take as instructed by the [facility] 90 Tablet 3 08/09/2023 [...] rinse after steroid. Test performed by Sameer METAL PAINTER CPFT Pleural plaque due to asbestos exposure Restrictive lung disease Overview: In Check dial performed to assess inhaler technique: 12/15/19 Name of inhalers Albuterol Pass: Yes at 60 L/min and Advair Pass: Yes at 60 L/min. Encouraged to to take deep breath, use aero chamber, and rinse after steroid. 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 [...] mRNA, LNP-s, No Pre serve, 2-Dose Series ([employer]) 12/01/2021,01/16/2021,12/26/2020 COVID-19, LNP-s, No Preserve , Ozzy-sucrose, Ages 12+ (Pfizer) 12/01/2021 COVID-19, MRNA-LNP, 23-24, P F, 30 MCG/0.3 mL, 12 YRS AND ABOVE, IM ([facility] 09/18/2023 Covid-19, Mrna, Lnp-s, Pf, B ivalent, 30 Mcg, IM, 12 yrs and above ([employer]) 10/09/2022 Pneumococcal Conjugate Vacc, 13 Valent (Prevnar) [...] encounter Miscellaneous Notes * Telephone Encounter - Ingris Garcia [facility] - 12/25/2023 4:15 PM EST Medication Therapy Disease Management - Anticoagulation Patient: Patrick Carmen | : 1935 Subjective Contacts Type Contact Phone/Fax 12/25/2023 02:11 PM EST Phone (Incoming) MARIANA CARMEN (Emergency Contact) [phone] 12/25/2023 04:11 PM EST Phone (Outgoing) Patrick Carmen "Rafa" (Self) [phone] (H) Left Message Patient-Reported Symptoms: Patient Findings Comments: Error message on home machine- Reading 32.2 per Tech note. Left message advising if reading was 32.2 may be an error but may also mean INR is elevated. Advised on to Hold INR tonight andget repeat INR at lab tomorrow 12/26- advised to monitor for any signs of bruising or bleeding. [facility] will follow up tomorrow to check for INR result/ follow up with patient. Objective Current Warfarin Dose As of 12/25/2023 Warfarin maintenance plan: 2.5 mg (5 mg x 0.5) every day INR Result As of 12/25/2023 INR goal: 2.0-3.0 INR used for dosing: Assessment & Plan Warfarin Plan As of 12/25/2023 Full warfarin instructions: 12/25: Hold; Otherwise 2.5 mg every day Next INR check: 12/26/2023 Repeat PT/INR in 1 day(s) at Lab Weekly dose: not changed Additional Dosing Information: Description Home machine Ingris Garcia [facility] Clinical Pharmacist 12/25/2023, 4:15 PM * Telephone Encounter - Loyda Garrido electronic warfare technical - 12/25/2023 2:11 PM EST Caller's name: Mariana Preferred call back number(OFFICE NUMBER FOR ): [phone] Reason for call: Machine Pt's is going to call the company and ask them for help with the Acellis Mi machine. Mariana thinking the machine is giving wrong readings, since the batteries are changed. The last reading was 32.2. They also are having trouble getting the correct date and time entered. Ph. [phone] Loyda Garrido Car Attendant [facility] ([facility] (Formerly Telepharm[facility]) 12/25/2023, 2:15 PM documented in this encounter Plan of Treatment Upcoming Encounters Date Type Department Care Team (Late st Contact Info) Description 12/26/2023 6:45 AM EST Anticoagulation Pharmacy Call Center WB [address] [place] [address] [facility] 58 60 [facility] [place] [address] 12/26/2023 11:00 AM EST Immunization/Injection Hematology/Oncology Treatment, [place] [address] [place] [address] Nurse, Med [address] [place] [address] 12/31/2023 1:00 PM EST Cardiac Studies Cardiology [address] [place] [address] [place], Pacer [address] [place] [address] 01/01/2024 6:30 AM EST Anticoagulation Pharmacy Call Center WB [address] [facility] [place] [address] [facility] 58 60 [facility] [place] [address] 01/01/2024 9:00 AM EST Laboratory Laboratory [address] [place] [phone] [place] [address] 01/02/2024 11:00 AM EST Immunization/Injection Hematology/Oncology Treatment, [place] 200 [facility] [place] [address] Nurse, Med 4 200 [facility] [place] [address] 01/03/2024 10:30 AM EST Imaging Radiology [facility] 1st [facility], [place] [address] [place] [address] 01/07/2024 9:00 AM EST Laboratory Laboratory [address] [place] [phone] [place] [address] 01/08/2024 10:00 AM EST Office Visit Hematology/Oncology [facility] [place] [facility] [place] [address] Ludwig Louis MD [address] [place] [address] 01/08/2024 11:00 AM EST Immunization/Injection Hematology/Oncology Treatment, [place] 200 [facility] [place] [address] Nurse, Med 4 200 [facility] [place] [address] 02/03/2024 10:00 AM EDT Office Visit Ophthalmology, [facility] [address] [place] [address] Pablo Casanova, DO [address] [place] [address] 02/11/2024 10:00 AM EDT Office Visit Family Medicine [address] [place] [phone] Bell Mcqueen MD [address] [place] [address] [place] [address] 08/10/2024 1:40 PM EDT Office Visit Rheumatology [address] [place] [phone] Win Nielsen MD [address] [facility] [place] [address] Scheduled Procedures Name Priority Associated Diagnoses Date/Ti me ESOPHAGOGASTRODUODENOSCOPY ( EGD), FLEXIBLE, TRANSORAL, DIAGNOSTIC Recall Stark's esophagus with dysplasia Health Maintenance Due Date Last Done Comments Depression Screening 07/12/2021 07/12/2020 CKD PHOS USE SMARTSET 54917 08/21/2022 100 02/2021, 07/12/2020, 03/13/2019, Additional history exists *BISPHONATE OR OTHER ACCEPTABLE MEDICATION NEEDED FOR OSTEOPOROSIS (REFER TO SMARTSET #1146) 10/14/2023 Albumin/Creatinine Ratio 04/22/20242 023, 05/24/2022, 03/26/2022, Additional history exists TSH 10/08/2024 10/08/2023, 100 01/2023, 06/19/2023, Additional history exists CKD HGB USE SMARTSET 97402 12/25/202412/25, 12/25/2023, 12/18/2023, Additional history exists Stark's Esophagus Surveilance 02/26/2025 02/26/2022, 02/26/2022, 07/04/2021, Additional history exists DXA Scan 07/05/2025 07/05/2023, 10/19, 11/04/2018, Additional history exists DTaP,Tdap,and Td Vaccines (2 - Td or Tdap) 08/19/2027 08/19/2017, 08/20/2008 Pneumococcal Vaccine: 65+ Years Completed 06/23/2015, 05/14/2013, 04/18/2004 Zoster Vaccines Completed 12/02/2020, 08/15/2020 VITAMIN D LEVEL ONCE IN A LIFETIME-USE SMARTSET# [id number] Completed 04/22/2023, 08/28/2021, 07/14/2015 Influenza Vaccine (FLU [...] this encounter Medical Devices Implanted Type Area Labor Relations Representative Device Identifier Shelf Expiration Date Model / Serial / Lot Power Port 8fr Sngl Lumen Plas - [id number] Implanted:Qty: 1 on 02/22/2022 at [facility] CR [facility]ARD : PERIPHERAL VASCULAR [id number] 02/15/2023 [id number] / / [id number] documented as of this encounter Visit Diagnoses Diagnosis Hx of pulmonary embolus- Primary Personal history of pulmonary embolism Longstanding persistent atrial fibrillation (HCC) documented in this encounter Advance Directives Latest Code Status on File Code Status Date Activated Date Inactivated Comments Full Code 09/03/2007 7:29 AM 09/03/2007 4:02 PM Care Teams Technology Integration Specialist Relationship Specialty Start Date End Date Juancho Romero MD [address] [place] [address] [place] [address] PCP - General Family Medicine 12/27/16 documented as of this encounter
[2024-01-23] MEDS: TAMSULOSIN HCL 0.4 MG CAP PO SCH (21:05)
[2024-01-23] MEDS: guaiFENesin 600 MG TABCR PO SCH (21:05)
[2024-01-23] MEDS: PANTOprazole 40 MG TAB PO SCH (21:05)
--- OUTSIDE RECORDS SUMMARY | 2024-01-23 21:05 | External Medical Summary | Summary of Care ---
Author Name Unknown Organization [facility] Address [address] [place] [address] Phone [phone] Care Team Providers Care Auction Block Clerk Name Role Phone Juancho Romero MD Primary Care Provider Reason for Visit * Reason Comments Dosage Adjustment Via Phone (anticoag Cl inic) Encounter Details Date Type Department Care Team (Latest Contact Info) Description 12/16/2023 6:30 AM EST Anticoagulation Pharmacy Call Center [address] [place] [address] [facility] 58 [address] [place] [address] Hx of pulmonary embolus*; Longstanding persistent atrial fibrillation (HCC) Allergies Active Allergy Reactions Criticality Noted Date Comments Penicillins Other (Please comment),Rash High Eyes swell Pollen 05/03/2022 Wound Dressing Adhesive Rash 05/02/2023 Patient reported documented as of this encounter (statuses as of 12/16/2023) Medications Medication Sig Dispensed Refills Start Date [...] albuterol 120 mL 5 11/21/2022 Active Ipratropium [place] 0.02 % Inhalation Solution (Atrovent)Indicatio ns:Moderate persistent asthma without complication Inhale 2.5 mL via nebulizer in the morning and 2.5 mL at noon and 2.5 mL in the evening and 2.5 mL before bedtime. Mix with albuterol solution. 75 mL 12 11/21/2022 Active predniSONE 5 MG Oral Tablet (Deltasone) TAKE 1 TABLET BY MOUTH EVERY DAY 90 Tablet 3 12/18/2022 Active traMADol HCl 50 MG Oral Tablet [...] Respimat 2.5 MCG/ACT Inhalation Aerosol Solution (Tiotropium [place] Monohydrate)Indicat ions:Moderate persistent asthma without complication INHALE 2 PUFFS BY MOUTH EVERY DAY 12 g 3 04/30/2023 Active Rosuvastatin Calcium 10 MG Oral Tablet (Crestor) TAKE 1 TABLET BY MOUTH EVERY DAY 90 Tablet 1 05/27/2023 Active Warfarin Sodium 5 MG Oral Tablet (Coumadin)Indicatio ns:Pulmonary embolism and infarction (HCC) Take 0.5-1 Tablets by mouth every evening. Or take as instructed by the [facility] 90 Tablet 3 08/09/2023 Active [...] before bedtime. 40 Tablet 0 11/04/2023 Active Zolpidem Tartrate 5 MG Oral Tablet (Ambien)Indications :Restless leg syndrome Take 1 Tablet by mouth at bedtime as needed for Sleep. 30 Tablet 0 11/13/2023 Active Fluticasone Propionate 50 MCG/ACT Nasal Suspension [...] A DAY 180 Capsule 1 11/19/2023 Active Hospital, Clinic, or Other Facility Administered [...] as of this encounter (statuses as of 12/16/2023) Active Problems Problem Noted Date Diagnosed Date [...] rinse after steroid. Test performed by Sameer FOXER CPFT Pleural plaque due to asbestos exposure Restrictive lung disease Overview: In Check dial performed to assess inhaler technique: 12/15/19 Name of inhalers Albuterol Pass: Yes at 60 L/min and Advair Pass: Yes at 60 L/min. Encouraged to to take deep breath, use aero chamber, and rinse after steroid. 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 [...] as of this encounter (statuses as of 12/16/2023) Immunizations Name Administration Dates Next Due COVID-19 mRNA, LNP-s, No Pre serve, 2-Dose Series ([employer]) 12/01/2021,01/16/2021,12/26/2020 COVID-19, LNP-s, No Preserve , Ozzy-sucrose, Ages 12+ ([employer]) 12/01/2021 COVID-19, MRNA-LNP, 23-24, P F, 30 MCG/0.3 mL, 12 YRS AND ABOVE, IM ([employer]) 09/18/2023 Covid-19, Mrna, Lnp-s, Pf, B ivalent, 30 Mcg, IM, 12 yrs and above ([employer]) 10/09/2022 Pneumococcal Conjugate Vacc, 13 Valent (Prevnar) [...] as of this encounter Progress Notes * Teddy Garcia CPhT - 12/16/2023 8:48 AM EST Contacts Type Contact Phone/Fax 12/16/2023 08:45 AM EST Phone (Outgoing) JODY CARMEN (Emergency Contact) [phone] spoke with jody Subjective Patient Findings Negatives: Signs/symptoms of thrombosis, Signs/symptoms of bleeding, Change in health, Change in alcohol use, Change in activity, Upcoming invasive procedure, Missed doses, Extra doses, Change in medications, Change in diet/appetite, Bruising Advised patient to contact Anticoagulation Clinic if any unusual bruising or bleeding, recent illness, changes in medication, or questions/concerns. PT/INR results, Coumadin dose instructions, and next PT/INR date communicated as noted by Pharmacist: Yes Teddy Garcia CPhT 12/16/2023, 8:48 AM * Sheela Baugh [facility] - 12/16/2023 8:36 AM EST Images from the original note were not included. Coumadin Clinic (region specific) Objective Current Warfarin Dose As of 12/16/2023 Warfarin maintenance plan: 0 mg every Mon; 2.5 mg (5 mg x 0.5) all other days INR Result As of 12/16/2023 INR goal: 2.0-3.0 INR used for dosin.9 (12/13/2023) Assessment & Plan Warfarin Plan As of 12/16/2023 Full warfarin instructions: 2.5 mg every day Next INR check: 12/24/2023 Repeat PT/INR in 1.5 week(s) Weekly dose: increased Additional Dosing Information: Description Home spreading machine operator to contact patient with dose instructions as noted. Sheela Baugh RPh 12/16/2023, 8:36 AM documented in this encounter Plan of Treatment Upcoming Encounters Date Type Department Care Team (Late st Contact Info) Description 12/18/2023 9:00 AM EST Laboratory Laboratory [address] [place] [phone] [address] [place] [address] 12/19/2023 11:00 AM EST Immunization/Injecti on Hematology/Oncology Treatment, [place] [address] [place] [address] Nurse, Med 4 [address] [place] [address] 12/23/2023 9:30 AM EST Office Visit Ophthalmology, [facility] 132 [employer] [place] [address] Pablo Casanova T, DO [address] [place] [address] 12/25/2023 9:00 AM EST Laboratory Laboratory [address] [place] [phone] [address] [place] [address] 12/26/2023 11:00 AM EST Immunization/Injecti on Hematology/Oncology Treatment, [address] [address] Nurse, Med 4 200 [facility] [place] [address] 12/31/2023 1:00 PM EST Cardiac Studies Cardiology [address] [place] [address] Freddie Pacer [facility] 132 [facility] [place] [address] 01/01/2024 9:00 AM EST Laboratory Laboratory [address] [place] [address] [address] [place] [address] 01/02/2024 11:00 AM EST Immunization/Injecti on Hematology/Oncology Treatment, [place] 200 [facility] [place] [address] Nurse, Med 4 200 [facility] [place] [address] 01/03/2024 10:30 AM EST Imaging Radiology [facility] 1st [facility], [place] 132 [facility] [place] [address] 01/07/2024 9:00 AM EST Laboratory Laboratory [address] [place] [phone] [address] [place] [address] 01/08/2024 10:00 AM EST Office Visit Hematology/Oncology [facility] 200 [facility] [place] [address] Ludwig Louis MD 200 [facility] [place] [address] 01/08/2024 11:00 AM EST Immunization/Injecti on Hematology/Oncology Treatment, [place] 200 [facility] [place] [address] Nurse, Med 4 200 [facility] [place] [address] 02/11/2024 10:00 AM EDT Office Visit Family Medicine [address] [place] [phone] Bell Mcqueen MD [address] [place] [address] [place] [address] 08/10/2024 1:40 PM EDT Office Visit Rheumatology [address] [place] [phone] Win Nielsen MD [address] [facility] [address] [place], [place] [address] Scheduled Procedures Name Priority Associated Diagnoses Date/Ti me ESOPHAGOGASTRODUODENOSCOPY ( EGD), FLEXIBLE, TRANSORAL, DIAGNOSTIC Recall Stark's esophagus with dysplasia Health Maintenance Due Date Last Done Comments Depression Screening 07/12/2021 07/12/2020 CKD PHOS USE SMARTSET 05346 08/21/20220 02/2021, 07/12/2020, 03/13/2019, Additional history exists *BISPHONATE OR OTHER ACCEPTABLE MEDICATION NEEDED FOR OSTEOPOROSIS (REFER TO SMARTSET #1146) 10/14/2023 Albumin/Creatinine Ratio 04/22/2024 023, 05/24/2022, 03/26/2022, Additional history exists TSH 10/08/2024 10/08/2023, 100 01/2023, 06/19/2023, Additional history exists CKD HGB USE SMARTSET 41978 12/11/202412/11, 12/11/2023, 12/04/2023, Additional history exists Stark's Esophagus Surveilance 02/26/2025 02/26/2022, 02/26/2022, 07/04/2021, Additional history exists DXA Scan 07/05/2025 07/05/2023, 10/19, 11/04/2018, Additional history exists DTaP,Tdap,and Td Vaccines (2 - Td or Tdap) 08/19/2027 08/19/2017, 08/20/2008 Pneumococcal Vaccine: 65+ Years Completed 06/23/2015, 05/14/2013, 04/18/2004 Zoster Vaccines Completed 12/02/2020, 08/15/2020 VITAMIN D LEVEL ONCE IN A LIFETIME-USE SMARTSET# [id number] Completed 04/22/2023, 08/28/2021, 07/14/2015 Influenza Vaccine (FLU [...] this encounter Medical Devices Implanted Type Area Glass Mould Cleaner Device Identifier Shelf Expiration Date Model / Serial / Lot Power Port 8fr Sngl Lumen Plas - [id number] Implanted:Qty: 1 on 02/22/2022 at [facility] CR [facility]ARD : PERIPHERAL VASCULAR [id number] 02/15/2023 [id number] / / [id number] documented as of this encounter Procedures Procedure Name Priority Date/Time Associated Diagnosis Comments OUTSIDE LAB-PT/INR Routine 12/13/2023 documented in this encounter Results * OUTSIDE LAB-PT/INR (12/13/2023) INR-OUTSIDE LAB 1.9 HOME FINGERSTIC K DEVICE History Per Patient LABORATORY HOME FINGERSTICK DEVICE documented in this encounter Visit Diagnoses Diagnosis Hx of pulmonary embolus- Primary Personal history of pulmonary embolism Longstanding persistent atrial fibrillation (HCC) documented in this encounter Advance Directives Latest Code Status on File Code Status Date Activated Date Inactivated Comments Full Code 09/03/2007 7:29 AM 09/03/2007 4:02 PM Care Teams Auction Block Clerk Relationship Specialty Start Date End Date Juancho Romero MD [address] [place] [address] [place] [address] PCP - General Family Medicine 12/27/16 documented as of this encounter
--- OUTSIDE RECORDS SUMMARY | 2024-01-23 21:05 | External Medical Summary | Summary of Care ---
Author Name Unknown Organization [facility] Address [address] [place] [address] Phone [phone] Care Team Providers Care Line Camera Operator Name Role Phone Juancho Romero MD Primary Care Provider Encounter Details Date Type Department Care Team (Late st Contact Info) Description 12/13/2023 Result Scan Unspecified Department Tammie Scruggs, [facility] [address] [place] [address] <No scans attached> Allergies Active Allergy Reactions Criticality Noted Date Comments Penicillins Other (Please comment),Rash High Eyes swell Pollen 05/03/2022 Wound Dressing Adhesive Rash 05/02/2023 Patient reported documented as of this encounter (statuses as of 12/13/2023) Medications Medication Sig Dispensed Refills Start Date [...] albuterol 120 mL 5 11/21/2022 Active Ipratropium [place] 0.02 % Inhalation Solution (Atrovent)Indicatio ns:Moderate persistent [...] Respimat 2.5 MCG/ACT Inhalation Aerosol Solution (Tiotropium [place] Monohydrate)Indicat ions:Moderate persistent asthma without complication INHALE 2 PUFFS BY MOUTH EVERY DAY 12 g 3 04/30/2023 Active Rosuvastatin Calcium 10 MG Oral Tablet (Crestor) TAKE 1 TABLET BY MOUTH EVERY DAY 90 Tablet 1 05/27/2023 Active Warfarin Sodium 5 MG Oral Tablet (Coumadin)Indicatio ns:Pulmonary embolism and infarction (HCC) Take 0.5-1 Tablets by mouth every evening. Or take as instructed by the [facility] 90 Tablet 3 08/09/2023 [...] as of this encounter (statuses as of 12/13/2023) Active Problems Problem Noted Date Diagnosed Date [...] rinse after steroid. Test performed by Sameer MERCHANT MILL UTILITY WORKER CPFT Pleural plaque due to asbestos exposure Restrictive lung disease Overview: In Check dial performed to assess inhaler technique: 12/15/19 Name of inhalers Albuterol Pass: Yes at 60 L/min and Advair Pass: Yes at 60 L/min. Encouraged to to take deep breath, use aero chamber, and rinse after steroid. 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 [...] as of this encounter (statuses as of 12/13/2023) Immunizations Name Administration Dates Next Due COVID-19 mRNA, LNP-s, No Pre serve, 2-Dose Series (Xirrus) 12/01/2021,01/16/2021,12/26/2020 COVID-19, LNP-s, No Preserve , Ozzy-sucrose, Ages 12+ (Pfizer) 12/01/2021 COVID-19, MRNA-LNP, 23-24, P F, 30 MCG/0.3 mL, 12 YRS AND ABOVE, IM ([employer] 09/18/2023 Covid-19, Mrna, Lnp-s, Pf, B ivalent, 30 Mcg, IM, 12 yrs and above (Xirrus) 10/09/2022 Pneumococcal Conjugate Vacc, 13 Valent (Prevnar) [...] Care Team (Late st Contact Info) Description 12/16/2023 6:30 AM EST Anticoagulation Pharmacy Call Center [address] [place] [address] [facility] 58 60 [facility] [place] [address] 12/18/2023 9:00 AM EST Laboratory Laboratory [address] [place] [address] [place] [address] 12/19/2023 11:00 AM EST Immunization/Injection Hematology/Oncology Treatment, [place] [address] [place] [address] Nurse, Med [address] [place] [address] 12/23/2023 9:30 AM EST Office Visit Ophthalmology, [facility] 132 [place] [address] Pablo Casanova T, DO [address] [place] [address] 12/25/2023 9:00 AM EST Laboratory Laboratory [address] [place] [phone] [address] [place] [address] 12/26/2023 11:00 AM EST Immunization/Injection Hematology/Oncology Treatment, [place] [facility] [address] Nurse, Med 4 200 [facility] [place] [address] 12/31/2023 1:00 PM EST Cardiac Studies Cardiology [address] [place] [address] Og Frazier [facility] 132 [facility] [place] [address] 01/01/2024 9:00 AM EST Laboratory Laboratory [address] [place] [phone] [address] [place] [address] 01/02/2024 11:00 AM EST Immunization/Injection Hematology/Oncology Treatment, [place] [address] [facility] [address] Nurse, Med 4 200 [facility] [place] [address] 01/03/2024 10:30 AM EST Imaging Radiology [address] 132 [facility] [place] [address] 01/07/2024 9:00 AM EST Laboratory Laboratory [address] [place] [phone] [address] [place] [address] 01/08/2024 10:00 AM EST Office Visit Hematology/Oncology [facility] [address] [place] [address] Ludwig Louis MD [address] [place] [address] 01/08/2024 11:00 AM EST Immunization/Injection Hematology/Oncology Treatment, [place] 200 [facility] [place] [address] Nurse, Med 200 [facility] [place] [address] 02/11/2024 10:00 AM EDT Office Visit Family Medicine [address] [place] [phone] Bell Mcqueen MD [address] [place] [address] [place] [address] 08/10/2024 1:40 PM EDT Office Visit Rheumatology [address] [place] [phone] Win Nielsen MD [address] [place] [address] [place] [address] Scheduled Procedures Name Priority Associated Diagnoses Date/Ti me ESOPHAGOGASTRODUODENOSCOPY ( EGD), FLEXIBLE, TRANSORAL, DIAGNOSTIC Recall Stark's esophagus with dysplasia Health Maintenance Due Date Last Done Comments Depression Screening 07/12/2021 07/12/2020 CKD PHOS USE SMARTSET 94896 08/21/2022 10/0 02/2021, 07/12/2020, 03/13/2019, Additional history exists *BISPHONATE OR OTHER ACCEPTABLE MEDICATION NEEDED FOR OSTEOPOROSIS (REFER TO SMARTSET #1146) 10/14/2023 Albumin/Creatinine Ratio 04/22/2024 023, 05/24/2022, 03/26/2022, Additional history exists TSH 10/08/2024 10/08/2023, 10/0 01/2023, 06/19/2023, Additional history exists CKD HGB USE SMARTSET 82917 12/11/202412/11, 12/11/2023, 12/04/2023, Additional history exists Stark's Esophagus Surveilance 02/26/2025 02/26/2022, 02/26/2022, 07/04/2021, Additional history exists DXA Scan 07/05/2025 07/05/2023, 10/19, 11/04/2018, Additional history exists DTaP,Tdap,and Td Vaccines (2 - Td or Tdap) 08/19/2027 08/19/2017, 08/20/2008 Pneumococcal Vaccine: 65+ Years Completed 06/23/2015, 05/14/2013, 04/18/2004 Zoster Vaccines Completed 12/02/2020, 08/15/2020 VITAMIN D LEVEL ONCE IN A LIFETIME-USE SMARTSET# [id number] Completed 04/22/2023, 08/28/2021, 07/14/2015 Influenza Vaccine (FLU [...] this encounter Medical Devices Implanted Type Area Inspector Coated Fabrics Device Identifier Shelf Expiration Date Model / Serial / Lot Power Port 8fr Sngl Lumen Plas - [id number] Implanted:Qty: 1 on 02/22/2022 at [facility] CR BARD : PERIPHERAL VASCULAR [id number] 02/15/2023 [id number] / / [id number] documented as of this encounter Procedures Procedure Name Priority Date/Time Associated Diagnosis Comments OUTSIDE LAB RESULTS 12/13/2023 documented in this encounter Results * OUTSIDE LAB RESULTS (12/13/2023) 12/13/2023 Tammie Scruggs [facility] LABORATORY documented in this encounter Advance Directives Latest Code Status on File Code Status Date Activated Date Inactivated Comments Full Code 09/03/2007 7:29 AM 09/03/2007 4:02 PM Care Teams Line Camera Operator Relationship Specialty Start Date End Date Juancho Romero MD [address] [place] [address] [place] [address] PCP - General Family Medicine 12/27/16 documented as of this encounter
--- OUTSIDE RECORDS SUMMARY | 2024-01-23 21:05 | External Medical Summary | Summary of Care ---
Author Name Unknown Organization [facility] Address [address] [place] [address] Phone [phone] Care Team Providers Care Fashion Marketer Name Role Phone Juancho Romero MD Primary Care Provider [phone] Reason for Visit * Reason Comments Outpatient Testing Encounter Details Date Type Department Care Team (Late st Contact Info) Description 12/18/2023 9:00 AM EST Laboratory Laboratory [address] [place] [phone] [place] [address] Urothelial carcinoma of bladder (HCC) Allergies Active Allergy Reactions Criticality Noted Date Comments Penicillins Other (Please comment),Rash High Eyes swell Pollen 05/03/2022 Wound Dressing Adhesive Rash 05/02/2023 Patient reported documented as of this encounter (statuses as of 12/18/2023) Medications Medication Sig Dispensed Refills Start Date [...] albuterol 120 mL 5 11/21/2022 Active Ipratropium [place] 0.02 % Inhalation Solution (Atrovent)Indicatio ns:Moderate persistent [...] Respimat 2.5 MCG/ACT Inhalation Aerosol Solution (Tiotropium [place] Monohydrate)Indicat ions:Moderate persistent asthma without complication INHALE 2 PUFFS BY MOUTH EVERY DAY 12 g 3 04/30/2023 Active Rosuvastatin Calcium 10 MG Oral Tablet (Crestor) TAKE 1 TABLET BY MOUTH EVERY DAY 90 Tablet 1 05/27/2023 Active Warfarin Sodium 5 MG Oral Tablet (Coumadin)Indicatio ns:Pulmonary embolism and infarction (HCC) Take 0.5-1 Tablets by mouth every evening. Or take as instructed by the [facility] 90 Tablet 3 08/09/2023 [...] as of this encounter (statuses as of 12/18/2023) Active Problems Problem Noted Date Diagnosed Date [...] rinse after steroid. Test performed by Sameer PARARESCUE CRAFTSMAN CPFT Hx of pulmonary embolus 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 Overview: [place] C0-M6 documented as of this encounter (statuses as of 12/18/2023) Resolved Problems Problem Noted Date Diagnosed Date [...] as of this encounter (statuses as of 12/18/2023) Immunizations Name Administration Dates Next Due COVID-19 mRNA, LNP-s, No Pre serve, 2-Dose Series (Semantra) 12/01/2021,01/16/2021,12/26/2020 COVID-19, LNP-s, No Preserve , Ozzy-sucrose, Ages 12+ (Semantra) 12/01/2021 COVID-19, MRNA-LNP, 23-24, P F, 30 MCG/0.3 mL, 12 YRS AND ABOVE, IM ([employer]Comirnat) 09/18/2023 Covid-19, Mrna, Lnp-s, Pf, B ivalent, 30 Mcg, IM, 12 yrs and above (Semantra) 10/09/2022 Pneumococcal Conjugate Vacc, 13 Valent (Prevnar) [...] Care Team (Late st Contact Info) Description 12/19/2023 11:00 AM EST Immunization/Injection Hematology/Oncology Treatment, [place] [address] [place] [address] Nurse, Med 4 200 [facility] [place] [address] 12/23/2023 9:30 AM EST Office Visit Ophthalmology, [facility] 132 [facility] [place] [address] Pablo Casanova T, DO 16 [facility] [place] [address] 12/25/2023 6:30 AM EST Anticoagulation Pharmacy Call Center 58[address]60 [facility] [place] [address] [facility] 58 60 [facility] [place] [address] 12/25/2023 9:00 AM EST Laboratory Laboratory [address] [place] [phone] [address] [place] [address] 12/26/2023 11:00 AM EST Immunization/Injection [facility]ematology[facility], [place] 200 [facility] [address] Nurse, Med 4 200 [facility] [place] [address] 12/31/2023 1:00 PM EST Cardiac Studies Cardiology [address] [place] [address] [facility] 132 [facility] [place] Kumar [address] 01/01/2024 9:00 AM EST Laboratory Laboratory [address] [place] [phone] [address] [place] [address] 01/02/2024 11:00 AM EST Immunization/Injection Hematology/Oncology Treatment, [place] 200 [facility] [place] [address] Nurse, Med 4 200 [facility] [place] [address] 01/03/2024 10:30 AM EST Imaging Radiology [address] 132 [facility] [place] [address] 01/07/2024 9:00 AM EST Laboratory Laboratory [address] [place] [address] [place] [address] 01/08/2024 10:00 AM EST Office Visit Hematology/Oncology [facility] 200 [facility] [place] [address] Ludwig Louis MD 200 [facility] [place] [address] 01/08/2024 11:00 AM EST Immunization/Injection Hematology/Oncology Treatment, [place] 200 [facility] [address] Nurse, Med 4 200 [facility] [place] [address] 02/11/2024 10:00 AM EDT Office Visit Family Medicine [address] [place] [phone] Bell Mcqueen MD [address] [place] [address] [place] [address] 08/10/2024 1:40 PM EDT Office Visit Rheumatology [address] [place] [phone] [place] [address] [place] [address] [place] [address] Pending Results Name Type Priority Associated Diagnoses Date /Time CBC WITH WBC DIFFERENTIAL Lab STAT Urothelial carcinoma of bladder (HCC) 12/18/2023 10:47 AM EST CBC Lab STAT Urothelial carcinoma of bladder ([facility]) 12/18/2023 10:47 AM EST DIFFERENTIAL, AUTOMATED Lab STAT Urothelial carcinoma of bladder ([facility]) 12/18/2023 10:47 AM EST Scheduled Procedures Name Priority Associated Diagnoses Date/Ti me ESOPHAGOGASTRODUODENOSCOPY ( EGD), FLEXIBLE, TRANSORAL, DIAGNOSTIC Recall Stark's esophagus with dysplasia Health Maintenance Due Date Last Done Comments Depression Screening 07/12/2021 07/12/2020 CKD PHOS USE SMARTSET 95947 08/21/2022 10/0 02/2021, 07/12/2020, 03/13/2019, Additional history exists *BISPHONATE OR OTHER ACCEPTABLE MEDICATION NEEDED FOR OSTEOPOROSIS (REFER TO SMARTSET #1146) 10/14/2023 Albumin/Creatinine Ratio 04/22/2024 023, 05/24/2022, 03/26/2022, Additional history exists TSH 10/08/2024 10/08/2023, 10/0 01/2023, 06/19/2023, Additional history exists CKD HGB USE SMARTSET 83104 12/11/202412/11, 12/11/2023, 12/04/2023, Additional history exists Stark's Esophagus Surveilance 02/26/2025 02/26/2022, 02/26/2022, 07/04/2021, Additional history exists DXA Scan 07/05/2025 07/05/2023, 10/19, 11/04/2018, Additional history exists DTaP,Tdap,and Td Vaccines (2 - Td or Tdap) 08/19/2027 08/19/2017, 08/20/2008 Pneumococcal Vaccine: 65+ Years Completed 06/23/2015, 05/14/2013, 04/18/2004 Zoster Vaccines Completed 12/02/2020, 08/15/2020 VITAMIN D LEVEL ONCE IN A LIFETIME-USE SMARTSET# [id number] Completed 04/22/2023, 08/28/2021, 07/14/2015 Influenza Vaccine (FLU [...] this encounter Medical Devices Implanted Type Area Car Repossessor Device Identifier Shelf Expiration Date Model / Serial / Lot Power Port 8fr Sngl Lumen Plas - [id number] Implanted:Qty: 1 on 02/22/2022 at [facility] CR BARD : PERIPHERAL VASCULAR [id number] 02/15/2023 [id number] / / [id number] documented as of this encounter Visit Diagnoses Diagnosis Urothelial carcinoma of bladder (HCC) documented in this encounter Advance Directives Latest Code Status on File Code Status Date Activated Date Inactivated Comments Full Code 09/03/2007 7:29 AM 09/03/2007 4:02 PM Care Teams Fashion Marketer Relationship Specialty Start Date End Date Juancho Romero MD [address] [place] [address] [place] [address] PCP - General Family Medicine 12/27/16 documented as of this encounter
--- OUTSIDE RECORDS SUMMARY | 2024-01-23 21:05 | External Medical Summary | Summary of Care ---
Author Name Unknown Organization [facility] Address [address] [place] [address] Phone [phone] Care Team Providers Care Inspector Scales Name Role Phone Juancho Romero MD Primary Care Provider [phone] Reason for Visit * Reason Onset Date Comments Medical Questions 12/12/2023 Encounter Details Date Type Department Care Team (Late st Contact Info) Description 12/12/2023 Telephone [facility] 16 [place] [address] Pablo Casanova, 16 [place] [address] Medical Questions Allergies Active Allergy Reactions Criticality Noted Date Comments Penicillins Other (Please comment),Rash High Eyes swell Pollen 05/03/2022 Wound Dressing Adhesive Rash 05/02/2023 Patient reported documented as of this encounter (statuses as of 12/12/2023) Medications Medication Sig Dispensed Refills Start Date [...] albuterol 120 mL 5 11/21/2022 Active Ipratropium [place] 0.02 % Inhalation Solution (Atrovent)Indicatio ns:Moderate persistent [...] Respimat 2.5 MCG/ACT Inhalation Aerosol Solution (Tiotropium [place] Monohydrate)Indicat ions:Moderate persistent asthma without complication INHALE 2 PUFFS BY MOUTH EVERY DAY 12 g 3 04/30/2023 Active Rosuvastatin Calcium 10 MG Oral Tablet (Crestor) TAKE 1 TABLET BY MOUTH EVERY DAY 90 Tablet 1 05/27/2023 Active Warfarin Sodium 5 MG Oral Tablet (Coumadin)Indicatio ns:Pulmonary embolism and infarction (HCC) Take 0.5-1 Tablets by mouth every evening. Or take as instructed by the [facility] 90 Tablet 3 08/09/2023 [...] as of this encounter (statuses as of 12/12/2023) Active Problems Problem Noted Date Diagnosed Date [...] rinse after steroid. Test performed by Sameer BUSINESS DEVELOPMENT ASSISTANT CPFT Pleural plaque due to asbestos exposure Restrictive lung disease Overview: In Check dial performed to assess inhaler technique: 12/15/19 Name of inhalers Albuterol Pass: Yes at 60 L/min and Advair Pass: Yes at 60 L/min. Encouraged to to take deep breath, use aero chamber, and rinse after steroid. Test performed by Sameer BUSINESS DEVELOPMENT ASSISTANT CPFT Hx of pulmonary embolus 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 Overview: [place] C0-M6 documented as of this encounter (statuses as of 12/12/2023) Resolved Problems Problem Noted Date Diagnosed Date [...] infection 08/22/2005 04/05/2016 Anal fissure 06/04/2005 10/16/2007 alf current use of ant icoagulant therapy 05/30/2005 [...] as of this encounter (statuses as of 12/12/2023) Immunizations Name Administration Dates Next Due COVID-19 mRNA, LNP-s, No Pre serve, 2-Dose Series (KRAFTWERK) 12/01/2021,01/16/2021,12/26/2020 COVID-19, LNP-s, No Preserve , Ozzy-sucrose, Ages 12+ (KRAFTWERK) 12/01/2021 COVID-19, MRNA-LNP, 23-24, P F, 30 MCG/0.3 mL, 12 YRS AND ABOVE, IM ([employer]-Comirnat) 09/18/2023 Covid-19, Mrna, Lnp-s, Pf, B ivalent, 30 Mcg, IM, 12 yrs and above (KRAFTWERK) 10/09/2022 Pneumococcal Conjugate Vacc, 13 Valent (Prevnar) [...] encounter Miscellaneous Notes * Telephone Encounter - Stacey Babcock TECH - 12/12/2023 2:36 PM EST Called and relayed message, agreed to have him continue using the ointment as directed. Will call back with any other concerns * Telephone Encounter - Kathryn Kemp OSA - 12/12/2023 1:44 PM EST Mariana, spouse of Travis, calling asking if he may reduce the use of ointment to at bedtime only for the 2nd week because he is not able to do anything like read or do puzzles. He also has bags of fluid under both eyes in the morning to which they are using cool compresses. Please advise. Mariana: [phone] documented in this encounter Plan of Treatment Upcoming Encounters Date Type Department Care Team (Late st Contact Info) Description 12/16/2023 6:30 AM EST Anticoagulation Pharmacy Call Center WB 58[address]60 [facility] [place] [address] [facility] 58 60 [facility] [place] [address] 12/18/2023 9:00 AM EST Laboratory Laboratory [address] [place] [address] [place] [address] 12/19/2023 11:00 AM EST Immunization/Injection Hematology/[facility]cology Treatment, [place] 200 [facility] [address] Nurse, Med 4 200 [facility] [place] [address] 12/23/2023 9:30 AM EST Office Visit Ophthalmology, [facility] 132 [facility] [place] [address] Pablo Casanova T, DO [address] [place] [address] 12/25/2023 9:00 AM EST Laboratory Laboratory [address] [place] [address] [place] [address] 12/26/2023 11:00 AM EST Immunization/Injection Hematology/Oncology Treatment, [place] 200 [facility] [place] [address] Nurse, Med 4 200 [facility] [place] [address] 12/31/2023 1:00 PM EST Cardiac Studies Cardiology [address] [place] [address] Og Frazier [facility] 132 Terri Noam [place] [address] 01/01/2024 9:00 AM EST Laboratory Laboratory [address] [place] [address] [address] [place] [address] 01/02/2024 11:00 AM EST Immunization/Injection Hematology/Oncology Treatment, [place] 200 [facility] [place] [address] Nurse, Med 4 200 [facility] [place] [address] 01/03/2024 10:30 AM EST Imaging Radiology [facility] 1st [facility], [place] 132 [facility] [place] [address] 01/07/2024 9:00 AM EST Laboratory Laboratory [address] [place] [address] [address] [place] [address] 01/08/2024 10:00 AM EST Office Visit Hematology/Oncology [facility] 200 [facility] [place] [address] Ludwig Louis MD [address] [place] [address] 01/08/2024 11:00 AM EST Immunization/Injection Hematology/Oncology Treatment, [place] 200 [facility] [place] [address] Nurse, Med [address] [place] [address] 02/11/2024 10:00 AM EDT Office Visit Family Medicine [address] [place] [phone] Bell Mcqueen MD [address] [place] [address] [place] [address] 08/10/2024 1:40 PM EDT Office Visit Rheumatology [address] [place] [phone] Win Nielsen MD [facility] [place] [address] Scheduled Procedures Name Priority Associated Diagnoses Date/Ti me ESOPHAGOGASTRODUODENOSCOPY ( EGD), FLEXIBLE, TRANSORAL, DIAGNOSTIC Recall Stark's esophagus with dysplasia Health Maintenance Due Date Last Done Comments Depression Screening 07/12/2021 07/12/2020 CKD PHOS USE SMARTSET 82093 08/21/202202/2021, 07/12/2020, 03/13/2019, Additional history exists *BISPHONATE OR OTHER ACCEPTABLE MEDICATION NEEDED FOR OSTEOPOROSIS (REFER TO SMARTSET #1146) 10/14/2023 Albumin/Creatinine Ratio 04/22/2024 023, 05/24/2022, 03/26/2022, Additional history exists TSH 10/08/2024 10/08/2023, 01/2023, 06/19/2023, Additional history exists CKD HGB USE SMARTSET 37424 12/11/202412/11, 12/11/2023, 12/04/2023, Additional history exists Stark's Esophagus Surveilance 02/26/2025 02/26/2022, 02/26/2022, 07/04/2021, Additional history exists DXA Scan 07/05/2025 07/05/2023, 10/19, 11/04/2018, Additional history exists DTaP,Tdap,and Td Vaccines (2 - Td or Tdap) 08/19/2027 08/19/2017, 08/20/2008 Pneumococcal Vaccine: 65+ Years Completed 06/23/2015, 05/14/2013, 04/18/2004 Zoster Vaccines Completed 12/02/2020, 08/15/2020 VITAMIN D LEVEL ONCE IN A LIFETIME-USE SMARTSET# [id number] Completed 04/22/2023, 08/28/2021, 07/14/2015 Influenza Vaccine (FLU [...] this encounter Medical Devices Implanted Type Area Patient Admitting Representative Device Identifier Shelf Expiration Date Model / Serial / Lot Power Port 8fr Sngl Lumen Plas - [id number] Implanted:Qty: 1 on 02/22/2022 at [facility] CR BARD : PERIPHERAL VASCULAR [id number] 02/15/2023 [id number] / / [id number] documented as of this encounter Advance Directives Latest Code Status on File Code Status Date Activated Date Inactivated Comments Full Code 09/03/2007 7:29 AM 09/03/2007 4:02 PM Care Teams Inspector Scales Relationship Specialty Start Date End Date Juancho Romero MD [address] [place] [address] [place] [address] PCP - General Family Medicine 12/27/16 documented as of this encounter
--- OUTSIDE RECORDS SUMMARY | 2024-01-23 21:05 | External Medical Summary | Summary of Care ---
Author Name Unknown Organization [facility] Address [address] [place] [address] Phone [phone] Care Team Providers Care Industrial Relations Worker Name Role Phone Juancho Romero MD Primary Care Provider Reason for Visit * Reason Comments eRx-Medication Refill Encounter Details Date Type Department Care Team (Late st Contact Info) Description 12/16/2023 Refill Rheumatology [address] [place] [phone] Meenakshi Womack MD [facility] [place] [address] Allergies Active Allergy Reactions Criticality Noted Date Comments Penicillins Other (Please comment),Rash High Eyes swell Pollen 05/03/2022 Wound Dressing Adhesive Rash 05/02/2023 Patient reported documented as of this encounter (statuses as of 12/17/2023) Medications Medication Sig Dispensed Refills Start Date [...] albuterol 120 mL 5 11/21/2022 Active Ipratropium Thendara 0.02 % Inhalation Solution (Atrovent)Indicat ions:Moderate persistent [...] Respimat 2.5 MCG/ACT Inhalation Aerosol Solution (Tiotropium Thendara Monohydrate)Indic ations:Moderate persistent asthma without complication INHALE 2 PUFFS BY MOUTH EVERY DAY 12 g 3 04/30/2023 Active Rosuvastatin Calcium 10 MG Oral Tablet (Crestor) TAKE 1 TABLET BY MOUTH EVERY DAY 90 Tablet 1 05/27/2023 Active Warfarin Sodium 5 MG Oral Tablet (Coumadin)Indicat ions:Pulmonary embolism and infarction (HCC) Take 0.5-1 Tablets by mouth every evening. Or take as instructed by the [facility] 90 Tablet 3 08/09/2023 [...] at bedtime. 3.5 g 3 12/16/2023 Active predniSONE 5 MG Oral Tablet (Deltasone) TAKE 1 TABLET BY MOUTH EVERY DAY 90 Tablet 3 12/18/2022 12/17/19 24 Discontinued Hospital, Clinic, or Other Facility [...] as of this encounter (statuses as of 12/17/2023) Active Problems Problem Noted Date Diagnosed Date [...] rinse after steroid. Test performed by Sameer TITLE INSURANCE EXAMINER CPFT Pleural plaque due to asbestos exposure Restrictive lung disease Overview: In Check dial performed to assess inhaler technique: 12/15/19 Name of inhalers Albuterol Pass: Yes at 60 L/min and Advair Pass: Yes at 60 L/min. Encouraged to to take deep breath, use aero chamber, and rinse after steroid. Test performed by Sameer TITLE INSURANCE EXAMINER CPFT Hx of pulmonary embolus 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 Overview: Bandana C0-M6 documented as of this encounter (statuses as of 12/17/2023) Resolved Problems Problem Noted Date Diagnosed Date [...] infection 08/22/2005 04/05/2016 Anal fissure 06/04/2005 10/16/2007 [facility] current use of ant icoagulant therapy 05/30/2005 [...] as of this encounter (statuses as of 12/17/2023) Immunizations Name Administration Dates Next Due COVID-19 mRNA, LNP-s, No Pre serve, 2-Dose Series ([employer]) 12/01/2021,01/16/2021,12/26/2020 COVID-19, LNP-s, No Preserve , Ozzy-sucrose, Ages 12+ (Munetrix) 12/01/2021 COVID-19, MRNA-LNP, 23-24, P F, 30 MCG/0.3 mL, 12 YRS AND ABOVE, IM ([facility]) 09/18/2023 Covid-19, Mrna, Lnp-s, Pf, B ivalent, 30 Mcg, IM, 12 yrs and above ([employer]) 10/09/2022 Pneumococcal Conjugate Vacc, 13 Valent (Prevnar) [...] encounter Miscellaneous Notes * Telephone Encounter - Verónica Sutton, [facility] - 12/17/2023 3:42 PM ESTSigned Prescriptions: Disp Refills predniSONE 5 MG Oral Tablet (Deltasone) 90 Tab*2 Sig: TAKE 1 TABLET BY MOUTH EVERY DAYAuthorizing Provider: MEENAKSHI WOMACK User: VERÓNICA SUTTON----- * Telephone Encounter - Verónica Sutton RPh - 12/17/2023 3:38 PM EST Rheumatology: Refill Request(s) Per review of the refill parameters, Medication was refilled to hold pt until next appt 08/10/24. Verónica Sutton [facility] Clinical Pharmacist Rheumatology Department 12/17/2023,3:38 PM documented in this encounter Plan of Treatment Upcoming Encounters Date Type Department Care Team (Late st Contact Info) Description 12/18/2023 9:00 AM EST Laboratory Laboratory [address] [place] [phone] [place] [address] 12/19/2023 11:00 AM EST Immunization/Injection Hematology/Oncology Treatment, [place] [address] [place] [address] Nurse, Med 4 [address] [facility] [address] 12/23/2023 9:30 AM EST Office Visit Ophthalmology, [facility] 132 [facility] [place] [address] Pablo Casanova T, DO [address] [place] [address] 12/25/2023 6:30 AM EST Anticoagulation Pharmacy Call Center [address] [place] [address] [facility] 58 60 [facility] [place] [address] 12/25/2023 9:00 AM EST Laboratory Laboratory [address] [place] [phone] [address] [place] [address] 12/26/2023 11:00 AM EST Immunization/Injection Hematology/[facility], [place] [facility] [address] Nurse, Med 4 [address] [place] [address] 12/31/2023 1:00 PM EST Cardiac Studies Cardiology [address] [place] [address] [facility] 132 [facility] [place] [address] 01/01/2024 9:00 AM EST Laboratory Laboratory [address] [place] [address] [place] [address] 01/02/2024 11:00 AM EST Immunization/Injection Hematology/Oncology Treatment, [place] [facility] [address] Nurse, Med 4 200 [facility] [place] [address] 01/03/2024 10:30 AM EST Imaging Radiology [address] 132 [facility] [place] [address] 01/07/2024 9:00 AM EST Laboratory Laboratory [address] [place] [address] [place] [address] 01/08/2024 10:00 AM EST Office Visit Hematology/Oncology [facility] [address] [place] [address] Ludwig Louis MD 200 [facility] [place] [address] 01/08/2024 11:00 AM EST Immunization/Injection Hematology/Oncology Treatment, [place] [address] [place] [address] Nurse, Med 4 200 [facility] [place], [place] [address] 02/11/2024 10:00 AM EDT Office Visit Family Medicine [address] [phone] Bell Mcqueen MD [address] [place] [address] [place] [address] 08/10/2024 1:40 PM EDT Office Visit Rheumatology [address] [place] [phone] Meenakshi Womack MD [facility] [place], [place] [address] Scheduled Procedures Name Priority Associated Diagnoses Date/Ti me ESOPHAGOGASTRODUODENOSCOPY ( EGD), FLEXIBLE, TRANSORAL, DIAGNOSTIC Recall Stark's esophagus with dysplasia Health Maintenance Due Date Last Done Comments Depression Screening 07/12/2021 07/12/2020 CKD PHOS USE SMARTSET 30032 08/21/20220 02/2021, 07/12/2020, 03/13/2019, Additional history exists *BISPHONATE OR OTHER ACCEPTABLE MEDICATION NEEDED FOR OSTEOPOROSIS (REFER TO SMARTSET #1146) 10/14/2023 Albumin/Creatinine Ratio 04/22/2024 023, 05/24/2022, 03/26/2022, Additional history exists TSH 10/08/2024 10/08/2023, 100 01/2023, 06/19/2023, Additional history exists CKD HGB USE SMARTSET 48147 12/11/202412/11, 12/11/2023, 12/04/2023, Additional history exists Stark's Esophagus Surveilance 02/26/2025 02/26/2022, 02/26/2022, 07/04/2021, Additional history exists DXA Scan 07/05/2025 07/05/2023, 10/19, 11/04/2018, Additional history exists DTaP,Tdap,and Td Vaccines (2 - Td or Tdap) 08/19/2027 08/19/2017, 08/20/2008 Pneumococcal Vaccine: 65+ Years Completed 06/23/2015, 05/14/2013, 04/18/2004 Zoster Vaccines Completed 12/02/2020, 08/15/2020 VITAMIN D LEVEL ONCE IN A LIFETIME-USE SMARTSET# [id number] Completed 04/22/2023, 08/28/2021, 07/14/2015 Influenza Vaccine (FLU [...] this encounter Medical Devices Implanted Type Area Radio Interference Supervisor Device Identifier Shelf Expiration Date Model / Serial / Lot Power Port 8fr Sngl Lumen Plas - [id number] Implanted:Qty: 1 on 02/22/2022 at [facility] CR BARD : PERIPHERAL VASCULAR [id number] 02/15/2023 [id number] / / [id number] documented as of this encounter Advance Directives Latest Code Status on File Code Status Date Activated Date Inactivated Comments Full Code 09/03/2007 7:29 AM 09/03/2007 4:02 PM Care Teams Industrial Relations Worker Relationship Specialty Start Date End Date Juancho Romero MD [address] [place] [address] [place] [address] PCP - General Family Medicine 12/27/16 documented as of this encounter
--- OUTSIDE RECORDS SUMMARY | 2024-01-23 21:05 | External Medical Summary | Summary of Care ---
Author Name Unknown Organization [facility] Address [address] [place] [address] Phone [phone] Care Team Providers Care Clinic Coordinator Name Role Phone Juancho Romero MD Primary Care Provider [phone] Reason for Visit * Reason Onset Date Comments Medication Refill 12/16/2023 Encounter Details Date Type Department Care Team (Late st Contact Info) Description 12/16/2023 Refill Family Medicine [address] [phone] David Hu MD [address] [place] [address] [place] [address] Restless leg syndrome Allergies [...] MG Capsule Prior to dental appt 0 09/14/201 6 Active Albuterol Sulfate (PROAIR HFA) 108 [...] albuterol 120 mL 5 3 Active Ipratropium Volin 0.02 % Inhalation Solution (Atrovent)Indicat ions:Moderate persistent [...] Respimat 2.5 MCG/ACT Inhalation Aerosol Solution (Tiotropium Volin Monohydrate)Indic ations:Moderate persistent asthma without complication INHALE 2 PUFFS BY MOUTH EVERY DAY 12 g 3 3 Active Rosuvastatin Calcium 10 MG Oral Tablet (Crestor) TAKE 1 TABLET BY MOUTH EVERY DAY 90 Tablet 1 3 Active Warfarin Sodium 5 MG Oral Tablet (Coumadin)Indicat ions:Pulmonary embolism and infarction (HCC) Take 0.5-1 Tablets by mouth every evening. 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 30 Tablet 0 4 Active Erythromycin 5 MG/GM Ophthalmic Ointment Instill 0.25 Inches into eye at bedtime. 3.5 g 3 4 Active predniSONE 5 MG Oral Tablet (Deltasone) TAKE 1 TABLET BY MOUTH EVERY DAY 90 Tablet 3 3 12/17/19 24 Discontinued Zolpidem Tartrate 5 MG Oral [...] rinse after steroid. Test performed by Sameer CUSTOMER ENGINEERING SPECIALIST CPFT Pleural plaque due to asbestos exposure Restrictive lung disease Overview: In Check dial performed to assess inhaler technique: 12/15/19 Name of inhalers Albuterol Pass: Yes at 60 L/min and Advair Pass: Yes at 60 L/min. Encouraged to to take deep breath, use aero chamber, and rinse after steroid. 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 Overview: Alvin C0-M6 documented as of this encounter (statuses [...] Malignant neoplasm of prostate 09/23/2008 03/27/2018 Overview: Bradford grade 3 Atrial flutter 09/02/2007 10/16/2007 Herpes [...] mRNA, LNP-s, No Pre serve, 2-Dose Series ([employer] 12/01/2021,01/16/2021,12/26/2020 COVID-19, LNP-s, No Preserve , Ozzy-sucrose, Ages 12+ ([employer] 12/01/2021 COVID-19, MRNA-LNP, 23-24, P F, 30 MCG/0.3 mL, 12 YRS AND ABOVE, IM ([facility]) 09/18/2023 Covid-19, Mrna, Lnp-s, Pf, B ivalent, 30 Mcg, IM, 12 yrs and above ([employer] 10/09/2022 Pneumococcal Conjugate Vacc, 13 Valent (Prevnar) [...] encounter Miscellaneous Notes * Telephone Encounter - Josefina Nunes DO - 12/17/2023 4:26 PM ESTSigned Prescriptions: Disp Refills Zolpidem Tartrate 5 MG Oral Tablet (Ambien)30 Tab*0 Sig: Take 1 Tablet by mouth at bedtime as needed for Sleep. Authorizing Provider: JOSEFINA NUNES * Telephone Encounter - Sheela Baugh, [facility] - 12/17/2023 11:18 AM EST Pending Prescriptions: Disp Refills Zolpidem Tartrate 5 MG Oral Tablet (Ambien)30 Tab*0 Sig: Take 1 Tablet by mouth at bedtime as needed for Sleep. * Telephone Encounter - Sheela Baugh [facility] - 12/17/2023 11:17 AM EST I have reviewed the patients controlled substance dispensing history in the Prescription Drug Monitoring Program in compliance with the [facility] regulations before prescribing a controlled substance. PDMP checked on 12/17/2023. Pending Prescriptions: Disp Refills Zolpidem Tartrate 5 MG Oral Tablet (Ambie*30 Tab*0 Sig: Take 1 Tablet by mouth at bedtime as needed for Sleep. Last Visit: 11/04/2023 (in office), 08/28/2022 (telemedicine) Next Visit: 02/11/2024 Date medication was last filled: 11/13/23 Date medication is due for refill: 12/12/23 Pharmacy: [id number] [facility] Is this request for a controlled substance? Yes and Urine Drug Screen Not completed Toxicology results: No results found. However, due to the size of the patient record, not all encounters were searched.Please check Results Review for a complete set of results. Please approve if appropriate. Thanks, Sheela Baugh, PharmD Clinical Pharmacist [facility] ([facility]) ([facility]) [phone] 12/17/2023 11:17 AM documented in this encounter Plan of Treatment Upcoming Encounters Date Type Department Care Team (Late st Contact Info) Description 12/18/2023 9:00 AM EST Laboratory Laboratory [address] [place] [phone] [address] [place] [address] 12/19/2023 11:00 AM EST Immunization/Injection Hematology/Oncology Treatment, [place] [facility] [address] Nurse, Med 4 200 [facility] [place] [address] 12/23/2023 9:30 AM EST Office Visit Ophthalmology, [facility] 132 [facility] [place] [address] Pablo Casanova, DO [address] [place] [address] 12/25/2023 6:30 AM EST Anticoagulation Pharmacy Call Center 58[address]60 [facility] [address] [facility] 58 [facility] [place] [address] 12/25/2023 9:00 AM EST Laboratory Laboratory [address] [place] [phone] [place] [address] 12/26/2023 11:00 AM EST Immunization/Injection Hematology/Oncology Treatment, [place] 200 [facility] [address] Nurse, Med 4 200 [facility] [place] [address] 12/31/2023 1:00 PM EST Cardiac Studies Cardiology [address] [place] [address] Og Frazier [facility] [address] [place] [address] 01/01/2024 9:00 AM EST Laboratory Laboratory [address] [place] [phone] [place] [address] 01/02/2024 11:00 AM EST Immunization/Injection Hematology/Oncology Treatment, [place] 200 [facility] [place] [address] Nurse, Med 4 200 [facility] [place] [address] 01/03/2024 10:30 AM EST Imaging Radiology [address] 132 [facility] [place] [address] 01/07/2024 9:00 AM EST Laboratory Laboratory [address] [place] [phone] [place] [address] 01/08/2024 10:00 AM EST Office Visit Hematology/Oncology [facility] [address] [place] [address] Ludwig Louis MD [address] [place] [address] 01/08/2024 11:00 AM EST Immunization/Injection Hematology/Oncology Treatment, [place] 200 [facility] [place] [address] Nurse, Med 4 200 [facility] [place] [address] 02/11/2024 10:00 AM EDT Office Visit Family Medicine [address] [place] [phone] Bell Mcqueen MD [address] [place] [address] [place] [address] 08/10/2024 1:40 PM EDT Office Visit Rheumatology [address] [place] [phone] Win Nielsen MD [facility] [place] [address] Scheduled Procedures Name Priority Associated Diagnoses Date/Ti me ESOPHAGOGASTRODUODENOSCOPY ( EGD), FLEXIBLE, TRANSORAL, DIAGNOSTIC Recall Stark's esophagus with dysplasia Health Maintenance Due Date Last Done Comments Depression Screening 07/12/2021 07/12/2020 CKD PHOS USE SMARTSET 24990 08/21/202202/2021, 07/12/2020, 03/13/2019, Additional history exists *BISPHONATE OR OTHER ACCEPTABLE MEDICATION NEEDED FOR OSTEOPOROSIS (REFER TO SMARTSET #1146) 10/14/2023 Albumin/Creatinine Ratio 04/22/2024 023, 05/24/2022, 03/26/2022, Additional history exists TSH 10/08/2024 10/08/2023, 100 01/2023, 06/19/2023, Additional history exists CKD HGB USE SMARTSET 41713 12/11/202412/11, 12/11/2023, 12/04/2023, Additional history exists Stark's Esophagus Surveilance 02/26/2025 02/26/2022, 02/26/2022, 07/04/2021, Additional history exists DXA Scan 07/05/2025 07/05/2023, 10/19, 11/04/2018, Additional history exists DTaP,Tdap,and Td Vaccines (2 - Td or Tdap) 08/19/2027 08/19/2017, 08/20/2008 Pneumococcal Vaccine: 65+ Years Completed 06/23/2015, 05/14/2013, 04/18/2004 Zoster Vaccines Completed 12/02/2020, 08/15/2020 VITAMIN D LEVEL ONCE IN A LIFETIME-USE SMARTSET# 50469 Completed 04/22/2023, 08/28/2021, 07/14/2015 Influenza Vaccine (FLU [...] this encounter Medical Devices Implanted Type Area Coal Getter Device Identifier Shelf Expiration Date Model / Serial / Lot Power Port 8fr Sngl Lumen Plas - [id number] Implanted:Qty: 1 on 02/22/2022 at [facility] CR BARD : PERIPHERAL VASCULAR [id number] 02/15/2023 [id number] / / [id number] documented as of this encounter Visit Diagnoses Diagnosis Restless leg syndrome Restless legs syndrome (RLS) documented in this encounter Advance Directives Latest Code Status on File Code Status Date Activated Date Inactivated Comments Full Code 09/03/2007 7:29 AM 09/03/2007 4:02 PM Care Teams Clinic Coordinator Relationship Specialty Start Date End Date Juancho Romero MD [address] [place] [address] [place] [id number] PCP - General Family Medicine 12/27/16 documented as of this encounter
--- OUTSIDE RECORDS SUMMARY | 2024-01-23 21:05 | External Medical Summary ---
Author Name Unknown Address Unknown Organization K01:LABORATORY [facility] [place] - [facility] [address] [facility] [address] [place] [address] Laboratory Report Ordering Provider Test Date Status ADRIENNE SALCIDO 12/18/2023 10:47:10 Final Observation Date Value Abnormality Reference (Units ) Status WBC, Total 12/18/2023 10:47:10 4.90 4.00-10.80 (K/uL) Final RBC 12/18/2023 10:47:10 3.92 4.50-5.25 (M/uL) Final Hemoglobin 12/18/2023 10:47:10 11.3 Below low normal 14.0-16.8 (g/dL) Final HCT 12/18/2023 10:47:10 39.2 Below low normal 40.0-48.4 (%) Final MCV 12/18/2023 10:47:10 100.0 82.0-99.5 (fL) Final MCH 12/18/2023 10:47:10 28.8 27.0-34.0 (pg) Final MCHC 12/18/2023 10:47:10 28.8 32.0-36.0 (g/dL) Final RDW 12/18/2023 10:47:10 17.3 11.5-15.5 (%) Final Platelets 12/18/2023 10:47:10 106 Below low normal 140-400 (K/uL) Final MPV 12/18/2023 10:47:10 11.9 6.6-11.1 (fL) Final Nucleated erythrocytes/100 leukocytes [Ratio] in Blood by Automated count 12/18/2023 10:47:10 0 <=0 (/100 WBCs) Final Performing Location LABORATORY [facility] [place] - [address] [place] [address]
--- OUTSIDE RECORDS SUMMARY | 2024-01-23 21:05 | External Medical Summary ---
Author Name Unknown Address Unknown Organization K01:[facility] [address] [facility] [address] Laboratory Report Ordering Provider Test Date Status ADRIENNE SALCIDO 12/18/2023 10:47:10 Final Observation Date Value Abnormality Reference (Units ) Status SYNC LEUKOCYTES IN BLOOD BY AUTOMATED COUNT 12/18/2023 10:47:10 4.90 4.00-10.80 (K/uL) Final Segs 12/18/2023 10:47:10 73.9 40.0-75.0 (%) Final Lymphs % 12/18/2023 10:47:10 11.6 Below low normal 18.0-42.0 (%) Final Monos 12/18/2023 10:47:10 10.0 1.0-11.0 (%) Final Eosinophils 12/18/2023 10:47:10 2.7 0.0-6.0 (%) Final Basos 12/18/2023 10:47:10 1.0 0.0-2.0 (%) Final Immature Granulocyte, Percent 12/18/2023 10:47:10 0.8 0.0-2.0 (%) Final Absolute Segs 12/18/2023 10:47:10 3.62 1.80-7.70 (K/uL) Final Lymphs, absolute 12/18/2023 10:47:10 0.57 Below low normal 1.00-4.80 (K/ul) Final Monos, Abs 12/18/2023 10:47:10 0.49 0.00-1.10 (K/uL) Final Eos, Abs 12/18/2023 10:47:10 0.13 0.00-0.70 (K/uL) Final Basos, Abs 12/18/2023 10:47:10 0.05 0.00-0.20 (K/uL) Final Immature Granulocytes, Number 12/18/2023 10:47:10 0.04 0.00-0.20 (K/uL) Final Performing Location LAB[facility]ORY [facility] - [facility] [place] [phone]
[2024-01-23] MEDS: ROSUVASTATIN CALCIUM 10 MG TAB PO SCH (21:06)
--- OUTSIDE RECORDS SUMMARY | 2024-01-23 21:06 | External Medical Summary | Summary of Care ---
Author Name Unknown Organization [facility] Address [address] [place] [address] Phone [phone] Care Team Providers Care Host/Hostess Name Role Phone Juancho Romero MD Primary Care Provider [phone] Reason for Visit * Reason Comments Outpatient Testing Encounter Details Date Type Department Care Team (Late st Contact Info) Description 12/11/2023 10:30 AM EST Laboratory Laboratory [address] [place] [phone] [place] [address] Urothelial carcinoma of bladder (HCC) Allergies Active Allergy Reactions Criticality Noted Date Comments Penicillins Other (Please comment),Rash High Eyes swell Pollen 05/03/2022 Wound Dressing Adhesive Rash 05/02/2023 Patient reported documented as of this encounter (statuses as of 12/11/2023) Medications Medication Sig Dispensed Refills Start Date [...] albuterol 120 mL 5 11/21/2022 Active Ipratropium [place] 0.02 % Inhalation Solution (Atrovent)Indicatio ns:Moderate persistent [...] Respimat 2.5 MCG/ACT Inhalation Aerosol Solution (Tiotropium [place] Monohydrate)Indicat ions:Moderate persistent asthma without complication INHALE [...] as of this encounter (statuses as of 12/11/2023) Active Problems Problem Noted Date Diagnosed Date [...] rinse after steroid. Test performed by Sameer BEER RUNNER CPFT Pleural plaque due to asbestos exposure Restrictive lung disease Overview: In Check dial performed to assess inhaler technique: 12/15/19 Name of inhalers Albuterol Pass: Yes at 60 L/min and Advair Pass: Yes at 60 L/min. Encouraged to to take deep breath, use aero chamber, and rinse after steroid. Test performed by Sameer BEER RUNNER CPFT Hx of pulmonary embolus 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 Overview: [place] C0-M6 documented as of this encounter (statuses as of 12/11/2023) Resolved Problems Problem Noted Date Diagnosed Date [...] Malignant neoplasm of prostate 09/23/2008 03/27/2018 Overview: [place] grade 3 Atrial flutter 09/02/2007 10/16/2007 Herpes simplex virus infection 08/22/2005 04/05/2016 Anal fissure 06/04/2005 10/16/2007 FDC current use of ant icoagulant therapy 05/30/2005 [...] as of this encounter (statuses as of 12/11/2023) Immunizations Name Administration Dates Next Due COVID-19 mRNA, LNP-s, No Pre serve, 2-Dose Series (nubelo) 12/01/2021,01/16/2021,12/26/2020 COVID-19, LNP-s, No Preserve , Ozzy-sucrose, Ages 12+ (nubelo) 12/01/2021 COVID-19, MRNA-LNP, 23-24, P F, 30 MCG/0.3 mL, 12 YRS AND ABOVE, IM ([employer]-Comirnat) 09/18/2023 Covid-19, Mrna, Lnp-s, Pf, B ivalent, 30 Mcg, IM, 12 yrs and above (nubelo) 10/09/2022 Pneumococcal Conjugate Vacc, 13 Valent (Prevnar) [...] Team (Late st Contact Info) Description 12/12/2023 6:30 AM EST Anticoagulation Pharmacy Call Center WB 58-60 [facility] [place] [address] [facility] 58 60 [facility] [place] [address] 12/12/2023 11:00 AM EST Immunization/Injection Hematology/Oncology Treatment, [place] [address] [place] [address] Nurse, Med 4 [address] [facility] [address] 12/18/2023 9:00 AM EST Laboratory Laboratory [address] [place] [phone] [address] [place] [address] 12/19/2023 11:00 AM EST Immunization/Injection Hematology/Oncology Treatment, [place] 200 [facility] [place] [address] Nurse, Med 4 [address] [place] [address] 12/23/2023 9:30 AM EST Office Visit Ophthalmology, [facility] [address] [facility] [place] [address] Pablo Casanova, DO [address] [place] [address] 12/25/2023 9:00 AM EST Laboratory Laboratory [address] [place] [phone] [address] [place] [address] 12/26/2023 11:00 AM EST Immunization/Injection Hematology/Oncology Treatment, [place] 200 [facility] [place] [address] Nurse, Med 4 [address] [place] [address] 12/31/2023 1:00 PM EST Cardiac Studies Cardiology [address] [place] [address] [facility] [address] [facility] [place] [address] 01/01/2024 9:00 AM EST Laboratory Laboratory [address] [place] [phone] [address] [place] [address] 01/02/2024 11:00 AM EST Immunization/Injection Hematology/Oncology Treatment, [place] 200 [facility] [place] [address] Nurse, Med [address] [address] 01/03/2024 10:30 AM EST Imaging Radiology [facility] 1st [facility], [place] [address] [place] [address] 01/07/2024 9:00 AM EST Laboratory Laboratory [address] [place] [phone] [address] [place] [address] 01/08/2024 10:00 AM EST Office Visit Hematology/Oncology [facility] 200 [facility] [place] [address] Ludwig Louis MD 200 [facility] [place] [address] 01/08/2024 11:00 AM EST Immunization/Injection Hematology/Oncology Treatment, [place] 200 [facility] [place] [address] Nurse, Med 4 200 [facility] [place] [address] 02/11/2024 10:00 AM EDT Office Visit Family Medicine [address] [place] [phone] Bell Mcqueen MD [address] [place] [address] [place] [address] 08/10/2024 1:40 PM EDT Office Visit Rheumatology [address] [place] [phone] Win Nielsen MD [address] [place] [address] [place] [address] Pending Results Name Type Priority Associated Diagnoses Date /Time CBC WITH WBC DIFFERENTIAL Lab STAT Urothelial carcinoma of bladder (HCC) 12/11/2023 10:48 AM EST CBC Lab STAT Urothelial carcinoma of bladder (HCC) 12/11/2023 10:48 AM EST DIFFERENTIAL, AUTOMATED Lab STAT Urothelial carcinoma of bladder (HCC) 12/11/2023 10:48 AM EST Scheduled Procedures Name Priority Associated Diagnoses Date/Ti me ESOPHAGOGASTRODUODENOSCOPY ( EGD), FLEXIBLE, TRANSORAL, DIAGNOSTIC Recall Stark's esophagus with dysplasia Health Maintenance Due Date Last Done Comments Depression Screening 07/12/2021 07/12/2020 CKD PHOS USE SMARTSET 12331 08/21/2022 100 02/2021, 07/12/2020, 03/13/2019, Additional history exists *BISPHONATE OR OTHER ACCEPTABLE MEDICATION NEEDED FOR OSTEOPOROSIS (REFER TO SMARTSET #1146) 10/14/2023 Albumin/Creatinine Ratio 04/22/2024 023, 05/24/2022, 03/26/2022, Additional history exists TSH 10/08/2024 10/08/2023, 100 01/2023, 06/19/2023, Additional history exists CKD HGB USE SMARTSET 11289 12/04/202412/04, 12/04/2023, 11/27/2023, Additional history exists Stark's Esophagus Surveilance 02/26/2025 02/26/2022, 02/26/2022, 07/04/2021, Additional history exists DXA Scan 07/05/2025 07/05/2023, 10/19, 11/04/2018, Additional history exists DTaP,Tdap,and Td Vaccines (2 - Td or Tdap) 08/19/2027 08/19/2017, 08/20/2008 Pneumococcal Vaccine: 65+ Years Completed 06/23/2015, 05/14/2013, 04/18/2004 Zoster Vaccines Completed 12/02/2020, 08/15/2020 VITAMIN D LEVEL ONCE IN A LIFETIME-USE SMARTSET# 12642 Completed 04/22/2023, 08/28/2021, 07/14/2015 Influenza Vaccine (FLU [...] this encounter Medical Devices Implanted Type Area Collar Cutter Device Identifier Shelf Expiration Date Model / Serial / Lot Power Port 8fr Sngl Lumen Plas - [id number] Implanted:Qty: 1 on 02/22/2022 at [facility] CR BARD : PERIPHERAL VASCULAR [id number] 02/15/2023 [id number] / / [id number] documented as of this encounter Visit Diagnoses Diagnosis Urothelial carcinoma of bladder (HCC) documented in this encounter Advance Directives Latest Code Status on File Code Status Date Activated Date Inactivated Comments Full Code 09/03/2007 7:29 AM 09/03/2007 4:02 PM Care Teams Host/Hostess Relationship Specialty Start Date End Date Juancho Romero MD [address] [place] [address] [place] [phone] PCP - General Family Medicine 12/27/16 documented as of this encounter
--- OUTSIDE RECORDS SUMMARY | 2024-01-23 21:06 | External Medical Summary | Summary of Care ---
Author Name Unknown Organization [facility] Address [address] [place] [address] Phone [phone] Care Team Providers Care Forklift Technician Name Role Phone Juancho Romero MD Primary Care Provider [phone] Reason for Visit * Reason Comments Procedure Ectropion repair lef t eye, right eye Encounter Details Date Type Department Care Team (Late st Contact Info) Description 12/06/2023 11:00 AM EST Office Visit Ophthalmology, [facility] [address] [place] [address] Pablo Casanova, DO [address] [place] [address] Senile ectropion of right lower eyelid*; Cicatricial ectropion of left lower eyelid Allergies Active Allergy Reactions Criticality Noted Date Comments Penicillins Other (Please comment),Rash High Eyes swell Pollen 05/03/2022 Wound Dressing Adhesive Rash 05/02/2023 Patient reported documented as of this encounter (statuses as of 12/06/2023) Medications Medication Sig Dispensed Refills Start Date [...] albuterol 120 mL 5 11/21/2022 Active Ipratropium [place] 0.02 % Inhalation Solution (Atrovent)Indicatio ns:Moderate persistent [...] Respimat 2.5 MCG/ACT Inhalation Aerosol Solution (Tiotropium [place] Monohydrate)Indicat ions:Moderate persistent asthma without complication INHALE 2 PUFFS BY MOUTH EVERY DAY 12 g 3 04/30/2023 Active Rosuvastatin Calcium 10 MG Oral Tablet (Crestor) TAKE 1 TABLET BY MOUTH EVERY DAY 90 Tablet 1 05/27/2023 Active Warfarin Sodium 5 MG Oral Tablet (Coumadin)Indicatio ns:Pulmonary embolism and infarction (HCC) Take 0.5-1 Tablets by mouth every evening. Or take as instructed by the [facility] 90 Tablet 3 [...] (5 MG/ML) 0.5% *conc* inhalation solution 2.5 mgIndications:Rest rictive lung disease,Moderate persistent asthma without complication 2.5 mg NEBULIZER PRN 12/25/2022 12/25/2023 Active Albuterol Sulfate (Proventil) (2.5 MG/3ML) 0.083% inhalation solution 2.5 mgIndications:Rest rictive lung disease,Moderate persistent asthma without complication 2.5 mg NEBULIZER PRN 12/25/2022 12/25/2023 Active lidocaine-epinephr ine 2 %-1:487742 inj 100 mgIndications:Khloe le ectropion of right lower eyelid 100 mg SC ONCE 12/06/2023 12/06/2023 Ended Erythromycin ophthalmic ointmentIndication s:Senile ectropion of right lower eyelid OU ONCE 12/06/2023 12/06/2023 Discontinued Tobramycin-dexAMET Hasone (Tobradex) ophthalmic ointmentIndication s:Senile ectropion of right lower eyelid,Cicatricial ectropion of left lower eyelid OU ONCE 12/06/2023 12/06/2023 Ended documented as of this encounter (statuses as of 12/06/2023) Active Problems Problem Noted Date Diagnosed Date [...] and rinse after steroid. Test performed by A.Bartlett SHOE FITTER CPFT Hx of pulmonary embolus 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 Overview: [place] C0-M6 documented as of this encounter (statuses as of 12/06/2023) Resolved Problems Problem Noted Date Diagnosed Date [...] as of this encounter (statuses as of 12/06/2023) Immunizations Name Administration Dates Next Due COVID-19 mRNA, LNP-s, No Pre serve, 2-Dose Series ([employer]) 12/01/2021,01/16/2021,12/26/2020 COVID-19, LNP-s, No Preserve , Ozzy-sucrose, Ages 12+ ([employer]) 12/01/2021 COVID-19, MRNA-LNP, 23-24, P F, 30 MCG/0.3 mL, 12 YRS AND ABOVE, IM ([employer]-Comirnaty) 09/18/2023 Covid-19, Mrna, Lnp-s, Pf, B ivalent, 30 Mcg, IM, 12 yrs and above ([employer]) 10/09/2022 Pneumococcal Conjugate Vacc, 13 Valent (Prevnar) [...] of this encounter Progress Notes * Pablo Casanova, - 12/06/2023 10:34 AM EST Office Procedure Note Patrick Robles 12/06/2023 Pre/Post Op Dx: Ectropion of both lower eyelids Procedure: Ectropion repair of bilateral lower eyelid using lateral tarsal strips and medial spindle right lower eyelid Surgeon: Pablo Casanova DO Assistants: Eliza Hogue PA-C NO AVAILABLE RESIDENT TO ASSIST Anesthesia: Local 2% Lidocaine with epinephrine Complications: None EBL: minimal Drains: None IVF: None Specimen: none Preoperative Evaluation: Patient presented with foreign body sensation and redness of his eyes On evaluation, he was noted to have bilateral ectropions of the lower eyelids. Patient is now for ectropion repair of both lower eyelids. Operative Note: The patient was brought to the procedure room and identified as Patrick Robles and the procedure to be performed was confirmed with the patient. After informed consent was obtained theleft and right lateral upper and lower eyelids were infiltrated with 2% lidocaine with epinephrine.The patient was then prepped and draped in the usual sterile fashion. Attention was then turned to t he left eye lower eyelid where a lateral canthotomy and inferior cantholysis was performed. A lateral tarsal strip was then fashioned. The lateral portion of the eyelids were then approximated to thelateral orbital rim using a double armed 4- 0 prolene suture. The lateral canthal angle was reformedwith a 6-0 chromic suture. The skin defect in the lateral canthus was closed with the 6-0 chromic suture. Attention was then turned to the right lower eyelid. A lateral canthotomy and inferior cantholysis was performed. A lateral tarsal strip was then fashioned. Attention was turned medially where a skin snip incision was made at the inferior orbital rim inferior to the th punctum. A spindle of co njunctiva was removed form the palpebral surface with seb scissors and the defect was closed with a 5-0 chromic suture passed externally and tied over the orbicularis muscle. The lateral portionof the eyelids were then approximated to the lateral orbital rim using a double armed 4-0 prolene suture. The lateral canthal angle was reformed with a 6-0 chromic suture. The skin defect in the lateral canthus was closed with the 6-0 chromic suture Antibiotic ointment was applied. The procedure was performed without complications. The patient tolerated the procedure well. Patient was discharged in good condition. Written and verbal discharge instructions were given to the patient. Pablo Casanova DO documented in this encounter Nursing Notes * Halie Peterson, RN - 12/06/2023 11:01 AM EST Patient admitted to procedure room at 11:01 AM and identified by full name and medical record number as [id number], MRN . Is patient on blood thinners? yes . Is patient hypertensive? no, if yes, did youtake you blood pressure medication today? yes. The operative team (Cosmo Bernard), along with Mr. Robles, reviewed that he presents today for ectropion repair of both eyes. Mr. Robles agrees with the procedure and operative site. Thecorrect operative site was marked and verified by the operative team. Mr. Robles signed the surgical consent form as witnessed by the operative team. Pre op vitals BP 114/67 P 70 Resp 16 . Patient prepped and drapped by Dr. Casanova. Procedure completed at 1111 without incident. Patient tolerated procedure well. Post-op vitals: BP- 100/56 P- 64 Resp.- 16 . Instructions reviewed with patient by Dr. Casanova. Patient discharged from procedure room. Post-Op Instructions Activity: Rest today, then increase activity as tolerated. Do not drive or operate machinery for 24-48 hours. Control Of Pain: Take 1-2 extra strength tylenol as needed for pain. Warnings: Call your surgeon promptly in case of: A. Excessive bleeding B. Fever greater than 101 degrees Fahrenheit C. Persistent nausea and vomiting D. Redness, swelling or pus-like drainage E. Uncontrolled pain Special Instructions: - Apply ice water compresses to surgical area as much as possible for the next 48 hours to help reduce bruising and swelling - apply warm compress twice a day starting on day #3 - Apply ointment to surgical area 3-4 times a day for 14 days - Cleanse area gently with fingertips using soap & water. Do not use a washcloth! Pat dry. - Elevate head when resting for the next 48 hours -If advised, please wear eye shield(s) at bedtime for one week If you have any further questions, please call . For emergencies after 5:00 p.m. call and request the eye doctor wildlife conservation officer. Instructions given by: Dr. Casanova documented in this encounter Plan of Treatment Upcoming Encounters Date Type Department Care Team (Late st Contact Info) Description 12/11/2023 10:30 AM EST Laboratory Laboratory [address] [place] [phone] [place] [address] 12/12/2023 6:30 AM EST [facility]ticoagulation [facility] Call Center WB [phone] [address] [facility], [facility] 58 60 [facility] [place] [address] 12/12/2023 11:00 AM EST Immunization/Injection Hematology/Oncology Treatment, [place] [facility] [address] Nurse, Med 4 200 [facility] [place] [address] 12/18/2023 9:00 AM EST Laboratory Laboratory [address] [place] [phone] [place] [address] 12/19/2023 11:00 AM EST Immunization/Injection Hematology/Oncology Treatment, [place] [facility] [address] Nurse, Med 4 200 [facility] [place] [address] 12/23/2023 9:30 AM EST Office Visit Ophthalmology, [facility] 132 [facility] [place] [address] Pablo Casanova T, DO [address] [place] [address] 12/25/2023 9:00 AM EST Laboratory Laboratory [address] [place] [phone] [address] [place] [address] 12/26/2023 11:00 AM EST Immunization/Injection Hematology/Oncology Treatment, [place] [facility] [address] Nurse, Med 4 200 [facility] [place] [address] 12/31/2023 1:00 PM EST Cardiac Studies Cardiology [address] [place] [address] [facility] 132 [facility] [place] [address] 01/01/2024 9:00 AM EST Laboratory Laboratory [address] [place] [phone] [address] [place] [address] 01/02/2024 11:00 AM EST Immunization/Injection Hematology/Oncology Treatment, [place] [facility] [address] Nurse, Med 4 200 [facility] [place] [address] 01/03/2024 10:30 AM EST Imaging Radiology [facility] [place] [address] 01/07/2024 9:00 AM EST Laboratory Laboratory [address] [place] [phone] [address] [place] [address] 01/08/2024 10:00 AM EST Office Visit Hematology/Oncology [facility] 200 [facility] [place] [address] Ludwig Louis MD 200 [facility] [place] [address] 01/08/2024 11:00 AM EST Immunization/Injection Hematology/Oncology Treatment, [place] 200 [place] [address] Nurse, Med 200 [facility] [place] [address] 02/11/2024 11:00 AM EDT Office Visit Family Medicine [address] [place] [phone] Bell Mcqueen MD [address] [place] [address] [place] [address] 08/10/2024 1:40 PM EDT Office Visit Rheumatology [address] [place] [phone] Win Nielsen MD [facility] [place] [address] Scheduled Procedures Name Priority Associated Diagnoses Date/Ti me ESOPHAGOGASTRODUODENOSCOPY ( EGD), FLEXIBLE, TRANSORAL, DIAGNOSTIC Recall Stark's esophagus with dysplasia Health Maintenance Due Date Last Done Comments Depression Screening 07/12/2021 07/12/2020 CKD PHOS USE SMARTSET 03383 08/21/[address]220 02/2021, 07/12/2020, 03/13/2019, Additional history exists *BISPHONATE OR OTHER ACCEPTABLE MEDICATION NEEDED FOR OSTEOPOROSIS (REFER TO SMARTSET #1146) 10/14/2023 Albumin/Creatinine Ratio 04/22/2024 023, 05/24/2022, 03/26/2022, Additional history exists TSH 10/08/2024 10/08/2023, 100 01/2023, 06/19/2023, Additional history exists CKD HGB USE SMARTSET 23570 12/04/202412/04, 12/04/2023, 11/27/2023, Additional history exists Stark's Esophagus Surveilance 02/26/2025 02/26/2022, 02/26/2022, 07/04/2021, Additional history exists DXA Scan 07/05/2025 07/05/2023, 10/19, 11/04/2018, Additional history exists DTaP,Tdap,and Td Vaccines (2 - Td or Tdap) 08/19/2027 08/19/2017, 08/20/2008 Pneumococcal Vaccine: 65+ Years Completed 06/23/2015, 05/14/2013, 04/18/2004 Zoster Vaccines Completed 12/02/2020, 08/15/2020 VITAMIN D LEVEL ONCE IN A LIFETIME-USE SMARTSET# [id number] Completed 04/22/2023, 08/28/2021, 07/14/2015 Influenza Vaccine (FLU [...] this encounter Medical Devices Implanted Type Area Field Cane Scaler Helper Device Identifier Shelf Expiration Date Model / Serial / Lot Power Port 8fr Sngl Lumen Plas - [id number] Implanted:Qty: 1 on 02/22/2022 at [facility] CR BARD : PERIPHERAL VASCULAR [id number] 02/15/2023 [id number] / / [id number] documented as of this encounter Visit Diagnoses Diagnosis 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 documented in this encounter Administered Medications Inactive Administered Medications - up to 3 most recent administrations Medication Order MAR Action Action Date Dose Rate Site lidocaine-epinephrine 2 %-1:703822 inj 100 mg 100 mg (5 mL), Subcutaneous, ONCE, On Sat12/06/23 at 1145, For 1 dose Given 12/06/2023 11:26 AM EST 100 mg Eye Left Tobramycin-dexAMETHasone (Tobradex) ophthalmic ointment Both eyes, ONCE, On Sat12/06/23 at 1200, For 1 dose Given 12/06/2023 11:26 AM EST Eye Left documented in this encounter Advance Directives Latest Code Status on File Code Status Date Activated Date Inactivated Comments Full Code 09/03/2007 7:29 AM 09/03/2007 4:02 PM Care Teams Forklift Technician Relationship Specialty Start Date End Date Juancho Romero MD [address] [place] [address] [place] [phone] PCP - General Family Medicine 12/27/16 documented as of this encounter
--- OUTSIDE RECORDS SUMMARY | 2024-01-23 21:06 | External Medical Summary ---
Author Name Unknown Address Unknown Organization K01:LABOR[facility]ORY [facility] - 100 [facility] [address] Laboratory Report Ordering Provider Test Date Status ADRIENNE SALCIDO 12/11/2023 10:48:35 Final Observation Date Value Abnormality Reference (Units ) Status SYNC LEUKOCYTES IN BLOOD BY AUTOMATED COUNT 12/11/2023 10:48:35 5.01 4.00-10.80 (K/uL) Final Segs 12/11/2023 10:48:35 72.0 40.0-75.0 (%) Final Lymphs % 12/11/2023 10:48:35 14.8 Below low normal 18.0-42.0 (%) Final Monos 12/11/2023 10:48:35 9.6 1.0-11.0 (%) Final Eosinophils 12/11/2023 10:48:35 1.4 0.0-6.0 (%) Final Basos 12/11/2023 10:48:35 1.0 0.0-2.0 (%) Final Immature Granulocyte, Percent 12/11/2023 10:48:35 1.2 0.0-2.0 (%) Final Absolute Segs 12/11/2023 10:48:35 3.61 1.80-7.70 (K/uL) Final Lymphs, absolute 12/11/2023 10:48:35 0.74 Below low normal 1.00-4.80 (K/ul) Final Monos, Abs 12/11/2023 10:48:35 0.48 0.00-1.10 (K/uL) Final Eos, Abs 12/11/2023 10:48:35 0.07 0.00-0.70 (K/uL) Final Basos, Abs 12/11/2023 10:48:35 0.05 0.00-0.20 (K/uL) Final Immature Granulocytes, Number 12/11/2023 10:48:35 0.06 0.00-0.20 (K/uL) Final Performing Location [facility] - [facility] [place] [address]
--- OUTSIDE RECORDS SUMMARY | 2024-01-23 21:06 | External Medical Summary | Summary of Care ---
Author Name Unknown Organization [facility] Address [address] [place] [address] Phone [phone] Care Team Providers Care Boring Machine Operator Production Name Role Phone Juancho Romero MD Primary Care Provider [phone] Encounter Details Date Type Department Care Team (Late st Contact Info) Description 12/04/2023 Result Scan Unspecified Department <No scans attached> Allergies Active Allergy Reactions Criticality Noted Date Comments Penicillins Other (Please comment),Rash High Eyes swell Pollen 05/03/2022 Wound Dressing Adhesive Rash 05/02/2023 Patient reported documented as of this encounter (statuses as of 12/09/2023) Medications Medication Sig Dispensed Refills Start Date [...] albuterol 120 mL 5 11/21/2022 Active Ipratropium [place] 0.02 % Inhalation Solution (Atrovent)Indicatio ns:Moderate persistent [...] Respimat 2.5 MCG/ACT Inhalation Aerosol Solution (Tiotropium [place] Monohydrate)Indicat ions:Moderate persistent asthma without complication INHALE [...] by the [facility] 90 Tablet 3 08/09/2023 Active [...] as of this encounter (statuses as of 12/09/2023) Active Problems Problem Noted Date Diagnosed Date [...] rinse after steroid. Test performed by Sameer [employer] FREEZ[employer] CPFT Pleural plaque due to asbestos exposure Restrictive lung disease Overview: In Check dial performed to assess inhaler technique: 12/15/19 Name of inhalers Albuterol Pass: Yes at 60 L/min and Advair Pass: Yes at 60 L/min. Encouraged to to take deep breath, use aero chamber, and rinse after steroid. Test performed by [facility]er [employer] CPFT Hx of pulmonary embolus 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 Overview: Lillian C0-M6 documented as of this encounter (statuses as of 12/09/2023) Resolved Problems Problem Noted Date Diagnosed Date [...] infection 08/22/2005 04/05/2016 Anal fissure 06/04/2005 10/16/2007 line staker current use of ant icoagulant therapy 05/30/2005 [...] as of this encounter (statuses as of 12/09/2023) Immunizations Name Administration Dates Next Due COVID-19 mRNA, LNP-s, No Pre serve, 2-Dose Series ([employer]) 12/01/2021,01/16/2021,12/26/2020 COVID-19, LNP-s, No Preserve , Ozzy-sucrose, Ages 12+ ([employer]) 12/01/2021 COVID-19, MRNA-LNP, 23-24, P F, 30 MCG/0.3 mL, 12 YRS AND ABOVE, IM ([facility]) 09/18/2023 Covid-19, Mrna, Lnp-s, Pf, B ivalent, 30 Mcg, IM, 12 yrs and above ([employer]) 10/09/2022 Pneumococcal Conjugate Vacc, 13 Valent (Prevnar) [...] Description 12/11/2023 10:30 AM EST Laboratory Laboratory [address] [place] [phone] [place] [address] 12/12/2023 11:00 AM EST Immunization/Injecti on Hematology/Oncology Treatment, [place] [facility] [address] Nurse, Med 4 200 [facility] [place] [address] 12/18/2023 9:00 AM EST Laboratory Laboratory [address] [place] [phone] [place] [address] 12/19/2023 11:00 AM EST Immunization/Injecti on Hematology/Oncology Treatment, [place] [address] [facility] [place] [address] Nurse, Med 4 200 [facility] [place] [address] 12/23/2023 9:30 AM EST Office Visit Ophthalmology, [facility] [address] [facility] [place] [address] Pablo Casanova, [address] [place] [address] 12/25/2023 9:00 AM EST Laboratory Laboratory [address] [place] [phone] [address] [place] [address] 12/26/2023 11:00 AM EST Immunization/Injecti on Hematology/Oncology Treatment, [place] [facility] [address] Nurse, Med 4 [address] [place] [address] 12/31/2023 1:00 PM EST Cardiac Studies Cardiology [address] [place] [address] [place], Pacer [facility] 132 [facility] [place] [address] 01/01/2024 9:00 AM EST Laboratory Laboratory [address] [place] [phone] [address] [place] [address] 01/02/2024 11:00 AM EST Immunization/Injecti on Hematology/Oncology Treatment, [place] 200 [facility] [place] [address] Nurse, Med 4 200 [facility] [place] [address] 01/03/2024 10:30 AM EST Imaging Radiology [facility] 1st [facility] 132 [facility] [place] [address] 01/07/2024 9:00 AM EST Laboratory Laboratory [address] [place] [phone] [place] [address] 01/08/2024 10:00 AM EST Office Visit Hematology/Oncology [facility] 200 [facility] [place] [address] Ludwig Louis MD 200 [facility] [place] [address] 01/08/2024 11:00 AM EST Immunization/Injecti on Hematology/Oncology Treatment, [place] [address] [facility] [place] [address] Nurse, Med 200 [facility] [place] [address] 02/11/2024 10:00 AM EDT Office Visit Family Medicine [address] [place] [address] Bell Mcqueen MD [address] [place] [address] [place] [address] 08/10/2024 1:40 PM EDT Office Visit Rheumatology [address] [place] [phone] Win Nielsen MD [address] [place] [address] [place] [address] Scheduled Procedures Name Priority Associated Diagnoses Date/Ti me ESOPHAGOGASTRODUODENOSCOPY ( EGD), FLEXIBLE, TRANSORAL, DIAGNOSTIC Recall Stark's esophagus with dysplasia Health Maintenance Due Date Last Done Comments Depression Screening 07/12/2021 07/12/2020 CKD PHOS USE SMARTSET 14391 08/21/2022 10/0 02/2021, 07/12/2020, 03/13/2019, Additional history exists *BISPHONATE OR OTHER ACCEPTABLE MEDICATION NEEDED FOR OSTEOPOROSIS (REFER TO SMARTSET #1146) 10/14/2023 Albumin/Creatinine Ratio 04/22/2024 023, 05/24/2022, 03/26/2022, Additional history exists TSH 10/08/2024 10/08/2023, 10/0 01/2023, 06/19/2023, Additional history exists CKD HGB USE SMARTSET 90094 12/04/202412/04, 12/04/2023, 11/27/2023, Additional history exists Stark's Esophagus Surveilance 02/26/2025 02/26/2022, 02/26/2022, 07/04/2021, Additional history exists DXA Scan 07/05/2025 07/05/2023, 10/19, 11/04/2018, Additional history exists DTaP,Tdap,and Td Vaccines (2 - Td or Tdap) 08/19/2027 08/19/2017, 08/20/2008 Pneumococcal Vaccine: 65+ Years Completed 06/23/2015, 05/14/2013, 04/18/2004 Zoster Vaccines Completed 12/02/2020, 08/15/2020 VITAMIN D LEVEL ONCE IN A LIFETIME-USE SMARTSET# [id number] Completed 04/22/2023, 08/28/2021, 07/14/2015 Influenza Vaccine (FLU [...] this encounter Medical Devices Implanted Type Area Prototype Engineer Manager Device Identifier Shelf Expiration Date Model / Serial / Lot Power Port 8fr Sngl Lumen Plas - [id number] Implanted:Qty: 1 on 02/22/2022 at [facility] BARD : PERIPHERAL VASCULAR [id number] 02/15/2023 [id number] / / [id number] documented as of this encounter Procedures Procedure Name Priority Date/Time Associated Diagnosis Comments OUTSIDE LAB RESULTS 12/04/2023 documented in this encounter Results * OUTSIDE LAB RESULTS (12/04/2023) 12/04/2023 No Physician Data Unknown LABORATORY documented in this encounter Advance Directives Latest Code Status on File Code Status Date Activated Date Inactivated Comments Full Code 09/03/2007 7:29 AM 09/03/2007 4:02 PM Care Teams Boring Machine Operator Production Relationship Specialty Start Date End Date Juancho Romero MD [address] [place] [address] [place] [phone] PCP - General Family Medicine 12/27/16 documented as of this encounter
--- OUTSIDE RECORDS SUMMARY | 2024-01-23 21:06 | External Medical Summary | Summary of Care ---
Author Name Unknown Organization [facility] Address [address] [place] [address] Phone [phone] Care Team Providers Care Getter Operator Name Role Phone Juancho Romero MD Primary Care Provider Reason for Visit * Reason Comments Procedure Ectropion repair lef t eye, right eye Encounter Details Date Type Department Care Team (Late st Contact Info) Description 12/06/2023 11:00 AM EST Office Visit Ophthalmology, [facility] [address] [place] [address] Pablo Casanova, DO [address] [place] [address] Senile ectropion of right lower [...] albuterol 120 mL 5 11/21/2022 Active Ipratropium [place] 0.02 % Inhalation Solution (Atrovent)Indicatio ns:Moderate persistent [...] Respimat 2.5 MCG/ACT Inhalation Aerosol Solution (Tiotropium [place] Monohydrate)Indicat ions:Moderate persistent asthma without complication INHALE [...] [facility] 90 Tablet 3 08/09/2023 Active [...] PRN 12/25/2022 12/25/2023 Active lidocaine-epinephr ine 2 %-1:315413 inj 100 mgIndications:Khloe le ectropion of right [...] and rinse after steroid. Test performed by [facility] [employer]INGER CPFT Hx of pulmonary embolus 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 Overview: Hamilton C0-M6 documented as of this encounter (statuses [...] mRNA, LNP-s, No Pre serve, 2-Dose Series ([employer]) 12/01/2021,01/16/2021,12/26/2020 COVID-19, LNP-s, No Preserve , Ozzy-sucrose, Ages 12+ ([employer]) 12/01/2021 COVID-19, MRNA-LNP, 23-24, P F, 30 MCG/0.3 mL, 12 YRS AND ABOVE, IM ([email or web address]) 09/18/2023 Covid-19, Mrna, Lnp-s, Pf, B ivalent, 30 Mcg, IM, 12 yrs and above ([employer]) 10/09/2022 Pneumococcal Conjugate Vacc, 13 Valent (Prevnar) [...] full name and medical record number as [id number], MRN . Is patient on blood thinners? [...] p.m. call and request the eye doctor senior quality control technician. Instructions given by: Dr. Casanova documented in this encounter Plan of Treatment Upcoming Encounters Date Type Department Care Team (Late st Contact Info) Description 12/11/2023 10:30 AM EST Laboratory Laboratory [address] [place] [phone] [place] [address] 12/12/2023 6:30 AM EST [facility]ticoagulation Pharmacy Call Center [facility] [address] [facility], [facility] 58 60 [facility] [place] [address] 12/12/2023 11:00 AM EST Immunization/Injection Hematology/Oncology Treatment, [place] [facility] [address] Nurse, Med 4 200 [facility] [place] [address] 12/18/2023 9:00 AM EST Laboratory Laboratory [address] [place] [phone] [place] [address] 12/19/2023 11:00 AM EST Immunization/Injection Hematology/Oncology Treatment, [place] [facility] [address] Nurse, Med 4 200 [facility] [place] [address] 12/23/2023 9:30 AM EST Office Visit Ophthalmology, [facility] 132 [facility] [place] [address] Pablo Casanova T, DO [address] [place] [address] 12/25/2023 9:00 AM EST Laboratory Laboratory [address] [place] [phone] [address] [place] [address] 12/26/2023 11:00 AM EST Immunization/Injection Hematology/Oncology Treatment, [place] [facility] [address] Nurse, Med 4 200 [facility] [place] [address] 12/31/2023 1:00 PM EST Cardiac Studies Cardiology [address] [place] [address] [facility] 132 [facility] [place] [address] 01/01/2024 9:00 AM EST Laboratory Laboratory [address] [place] [phone] [address] [place] [address] 01/02/2024 11:00 AM EST Immunization/Injection Hematology/Oncology Treatment, [place] [address] [facility] [address] Nurse, Med 4 200 [facility] [place] [address] 01/03/2024 10:30 AM EST Imaging Radiology [facility] 1st [facility] 132 [facility] [place] [address] 01/07/2024 9:00 AM EST Laboratory Laboratory [address] [place] [phone] [address] [place] [address] 01/08/2024 10:00 AM EST Office Visit Hematology/Oncology [facility] 200 [facility] [place] [address] Ludwig Louis MD 200 [facility] [place] [address] 01/08/2024 11:00 AM EST Immunization/Injection Hematology/Oncology Treatment, [place] 200 [place] [address] Nurse, Med 200 [facility] [place] [address] 02/11/2024 11:00 AM EDT Office Visit Family Medicine [address] [place] [phone] Bell Mcqueen MD [address] [place] [address] [place] [address] 08/10/2024 1:40 PM EDT Office Visit Rheumatology [address] [place] [phone] Win Nielsen MD [facility] [place] [address] Scheduled Procedures Name Priority Associated Diagnoses Date/Ti me ESOPHAGOGASTRODUODENOSCOPY ( EGD), FLEXIBLE, TRANSORAL, DIAGNOSTIC Recall Stark's esophagus with dysplasia Health Maintenance Due Date Last Done Comments Depression Screening 07/12/2021 07/12/2020 CKD PHOS USE SMARTSET 99978 08/21/20220 02/2021, 07/12/2020, 03/13/2019, Additional history exists *BISPHONATE OR OTHER ACCEPTABLE MEDICATION NEEDED FOR OSTEOPOROSIS (REFER TO SMARTSET #1146) 10/14/2023 Albumin/Creatinine Ratio 04/22/2024 023, 05/24/2022, 03/26/2022, Additional history exists TSH 10/08/2024 10/08/2023, 100 01/2023, 06/19/2023, Additional history exists CKD HGB USE SMARTSET 13788 12/04/202412/04, 12/04/2023, 11/27/2023, Additional history exists Stark's Esophagus Surveilance 02/26/2025 02/26/2022, 02/26/2022, 07/04/2021, Additional history exists DXA Scan 07/05/2025 07/05/2023, 10/19, 11/04/2018, Additional history exists DTaP,Tdap,and Td Vaccines (2 - Td or Tdap) 08/19/2027 08/19/2017, 08/20/2008 Pneumococcal Vaccine: 65+ Years Completed 06/23/2015, 05/14/2013, 04/18/2004 Zoster Vaccines Completed 12/02/2020, 08/15/2020 VITAMIN D LEVEL ONCE IN A LIFETIME-USE SMARTSET# [id number] Completed 04/22/2023, 08/28/2021, 07/14/2015 Influenza Vaccine (FLU [...] this encounter Medical Devices Implanted Type Area Barrel Leveler Device Identifier Shelf Expiration Date Model / Serial / Lot Power Port 8fr Sngl Lumen Plas - [id number] Implanted:Qty: 1 on 02/22/2022 at [facility]ARD : PERIPHERAL VASCULAR [id number] 02/15/2023 [id number] / / [id number] documented as of this encounter Visit Diagnoses Diagnosis 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
--- OUTSIDE RECORDS SUMMARY | 2024-01-23 21:06 | External Medical Summary ---
Author Name Unknown Address Unknown Organization K01:[facility] [place] [facility] [address] [facility] [address] [place] [address] Laboratory Report Ordering Provider Test Date Status ADRIENNE SALCIDO 12/11/2023 10:48:35 Final Observation Date Value Abnormality Reference (Units ) Status WBC, Total 12/11/2023 10:48:35 5.01 4.00-10.80 (K/uL) Final RBC 12/11/2023 10:48:35 3.88 4.50-5.25 (M/uL) Final Hemoglobin 12/11/2023 10:48:35 11.2 Below low normal 14.0-16.8 (g/dL) Final HCT 12/11/2023 10:48:35 38.4 Below low normal 40.0-48.4 (%) Final MCV 12/11/2023 10:48:35 99.0 82.0-99.5 (fL) Final MCH 12/11/2023 10:48:35 28.9 27.0-34.0 (pg) Final MCHC 12/11/2023 10:48:35 29.2 32.0-36.0 (g/dL) Final RDW 12/11/2023 10:48:35 18.1 11.5-15.5 (%) Final Platelets 12/11/2023 10:48:35 110 Below low normal 140-400 (K/uL) Final MPV 12/11/2023 10:48:35 12.6 6.6-11.1 (fL) Final Nucleated erythrocytes/100 leukocytes [Ratio] in Blood by Automated count 12/11/2023 10:48:35 0 <=0 (/100 WBCs) Final Performing Location [facility] [place] [address] [place] [address]
--- OUTSIDE RECORDS SUMMARY | 2024-01-23 21:06 | External Medical Summary | Summary of Care ---
Author Name Unknown Organization [facility] Address [address] [place] [address] Phone [phone] Care Team Providers Care Medical Record Administrator Name Role Phone Juancho Romero MD Primary Care Provider Reason for Visit * Reason Comments Dosage Adjustment Via Phone (anticoag Cl inic) Encounter Details Date Type Department Care Team (Latest Contact Info) Description 12/09/2023 6:30 AM EST Anticoagulation Pharmacy Call Center [address] [place] [address] [facility] 58 [address] [place] [address] Hx of pulmonary embolus*; Longstanding persistent atrial [...] albuterol 120 mL 5 11/21/2022 Active Ipratropium [place] 0.02 % Inhalation Solution (Atrovent)Indicatio ns:Moderate persistent [...] Respimat 2.5 MCG/ACT Inhalation Aerosol Solution (Tiotropium [place] Monohydrate)Indicat ions:Moderate persistent asthma without complication INHALE [...] instructed by the [facility] 90 Tablet 3 08/09/2023 Active [...] rinse after steroid. Test performed by Sameer BUILDING ESTIMATOR CPFT Pleural plaque due to asbestos exposure Restrictive lung disease Overview: In Check dial performed to assess inhaler technique: 12/15/19 Name of inhalers Albuterol Pass: Yes at 60 L/min and Advair Pass: Yes at 60 L/min. Encouraged to to take deep breath, use aero chamber, and rinse after steroid. 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 [facility] will follow up with next INR due 12/11. Thank You Ingris Garcia PharmD Clinical Pharmacist [facility] ([facility]) (formerly Telepharmacy) [phone] / [phone] 12/09/2023, 9:01 AM * Sarah Larson PHARM Tech - 12/09/2023 7:02 AM EST Incoming fax from [employer], patient self tested 12/04/23. INR:1.7. Thank you, Praneeth Larson C Application Developer [facility] ([facility]) ( Formerly Telepharmacy) 12/09/2023, 7:02 AM documented in this encounter Plan of Treatment Upcoming Encounters Date Type Department Care Team (Late st Contact Info) Description 12/11/2023 10:30 AM EST Laboratory Laboratory [address] [place] [phone] [address] [place] [address] 12/12/2023 6:30 AM EST Anticoagulation Pharmacy Call Center [address]60 [facility] [place] [address] [facility], [facility] 58 60 [facility] [place] [address] 12/12/2023 11:00 AM EST Immunization/Injection Hematology/Oncology Treatment, [place] [facility] [address] Nurse, Med 4 200 [facility] [place] [address] 12/18/2023 9:00 AM EST Laboratory Laboratory [address] [place] [phone] [address] [place] [address] 12/19/2023 11:00 AM EST Immunization/Injection Hematology/Oncology Treatment, [place] [facility] [address] Nurse, Med 4 200 [facility] [place] [address] 12/23/2023 9:30 AM EST Office Visit Ophthalmology, [facility] 132 [facility] [place] [address] Pablo Casanova, [address] [place] [address] 12/25/2023 9:00 AM EST Laboratory Laboratory [address] [place] [phone] [address] [place] [address] 12/26/2023 11:00 AM EST Immunization/Injection Hematology/Oncology Treatment, [place] [facility] [address] Nurse, Med 4 200 [facility] [place] [address] 12/31/2023 1:00 PM EST Cardiac Studies Cardiology [address] [place] [address] [facility] 132 [facility] [place] [address] 01/01/2024 9:00 AM EST Laboratory Laboratory [address] [place] [phone] [place] [address] 01/02/2024 11:00 AM EST Immunization/Injection Hematology/Oncology Treatment, [place] [facility] [address] Nurse, Med 4 200 [facility] [place] [address] 01/03/2024 10:30 AM EST Imaging Radiology [facility], [place] 132 [facility] [place] [address] 01/07/2024 9:00 AM EST Laboratory Laboratory [address] [place] [phone] [address] [place] [address] 01/08/2024 10:00 AM EST Office Visit Hematology/Oncology [facility] 200 [facility] [place] [address] Ludwig Louis MD 200 [facility] [place] [address] 01/08/2024 11:00 AM EST Immunization/Injection Hematology/Oncology Treatment, [place] [facility] [address] Nurse, Med 200 [facility] [place] [address] 02/11/2024 10:00 AM EDT Office Visit Family Medicine [address] [place] [phone] Bell Mcqueen MD [address] [place] [address] [place] [address] 08/10/2024 1:40 PM EDT Office Visit Rheumatology [address] [place] [phone] Win Nielsen MD [address] [place] [address] [address] [place], [place] [address] Scheduled Procedures Name Priority Associated Diagnoses Date/Ti me ESOPHAGOGASTRODUODENOSCOPY ( EGD), FLEXIBLE, TRANSORAL, DIAGNOSTIC Recall Stark's esophagus with dysplasia Health Maintenance Due Date Last Done Comments Depression Screening 07/12/2021 07/12/2020 CKD PHOS USE SMARTSET 29862 08/21/20220 02/2021, 07/12/2020, 03/13/2019, Additional history exists *BISPHONATE OR OTHER ACCEPTABLE MEDICATION NEEDED FOR OSTEOPOROSIS (REFER TO SMARTSET #1146) 10/14/2023 Albumin/Creatinine Ratio 04/22/2024 023, 05/24/2022, 03/26/2022, Additional history exists TSH 10/08/2024 10/08/2023, 100 01/2023, 06/19/2023, Additional history exists CKD HGB USE SMARTSET 11605 12/04/202412/04, 12/04/2023, 11/27/2023, Additional history exists Stark's Esophagus Surveilance 02/26/2025 02/26/2022, 02/26/2022, 07/04/2021, Additional history exists DXA Scan 07/05/2025 07/05/2023, 10/19, 11/04/2018, Additional history exists DTaP,Tdap,and Td Vaccines (2 - Td or Tdap) 08/19/2027 08/19/2017, 08/20/2008 Pneumococcal Vaccine: 65+ Years Completed 06/23/2015, 05/14/2013, 04/18/2004 Zoster Vaccines Completed 12/02/2020, 08/15/2020 VITAMIN D LEVEL ONCE IN A LIFETIME-USE SMARTSET# [id number] Completed 04/22/2023, 08/28/2021, 07/14/2015 Influenza Vaccine (FLU [...] this encounter Medical Devices Implanted Type Area Client Care Consultant Device Identifier Shelf Expiration Date Model / Serial / Lot Power Port 8fr Sngl Lumen Plas - [id number] Implanted:Qty: 1 on 02/22/2022 at [facility] : PERIPHERAL VASCULAR [id number] 02/15/2023 [id number] / / [id number] documented as of this encounter Procedures Procedure Name Priority Date/Time Associated Diagnosis Comments OUTSIDE LAB-PT/INR Routine 12/04/2023 documented in this encounter Results * OUTSIDE LAB-PT/INR (12/04/2023) INR-OUTSIDE LAB 1.7 12/04/2023 History Per Patient LABORATORY documented in this encounter Visit Diagnoses Diagnosis Hx of pulmonary embolus- Primary Personal history of pulmonary embolism Longstanding persistent atrial fibrillation (HCC) documented in this encounter Advance Directives Latest Code Status on File Code Status Date Activated Date Inactivated Comments Full Code 09/03/2007 7:29 AM 09/03/2007 4:02 PM Care Teams Medical Record Administrator Relationship Specialty Start Date End Date Juancho Romero MD [address] [place] [address] [place] [address] PCP - General Family Medicine 12/27/16 documented as of this encounter
--- OUTSIDE RECORDS SUMMARY | 2024-01-23 21:06 | External Medical Summary | Summary of Care ---
Author Name Unknown Organization [facility] Address [address] [place] [address] Phone [phone] Care Team Providers Care Special Needs Caregiver Name Role Phone Juancho Romero MD Primary [...] stage 3a chronic kidney disease (HCC) Procedures CT INJ RETACRIT NON-ESRD USE CT THERAPEUTIC PROPHYLACTIC/DX INJECTION SUBQ/IM CT EPOETIN IVAN, NON-ESRD Ludwig Louis MD [address] [place] [address] Anc Hem/Onc Dony Hickman DEPT CLOSED - 10/01/23 [address] [place] [address] Referral ID Status Reason Start Date Expiration Date V isits Requested Visits Authorized [id number] Authorized 11/22/2023 02/14/2024 999 99 Encounter Details Date Type Department Care Team (Late st Contact Info) Description 12/05/2023 11:30 AM EST Immunization/I njection Hematology/Oncology Treatment, [place] [address] [place] [phone] Nurse, Med 4 [address] [place] [address] Carcinoma of bladder (HCC)*; Iron deficiency anemia, unspecified iron deficiency anemia type; Chronic kidney disease, stage 3b (HCC); 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) Allergies Active Allergy Reactions Criticality Noted Date Comments Penicillins Other (Please comment),Rash High Eyes swell Pollen 05/03/2022 Wound Dressing Adhesive Rash 05/02/2023 Patient reported documented as of this encounter (statuses as of 12/05/2023) Medications Medication Sig Dispensed Refills Start Date [...] albuterol 120 mL 5 11/21/2022 Active Ipratropium [place] 0.02 % Inhalation Solution (Atrovent)Indicatio ns:Moderate persistent [...] Respimat 2.5 MCG/ACT Inhalation Aerosol Solution (Tiotropium [place] Monohydrate)Indicat ions:Moderate persistent asthma without complication INHALE 2 PUFFS BY MOUTH EVERY DAY 12 g 3 04/30/2023 Active Rosuvastatin Calcium 10 MG Oral Tablet (Crestor) TAKE 1 TABLET BY MOUTH EVERY DAY 90 Tablet 1 05/27/2023 Active Warfarin Sodium 5 MG Oral Tablet (Coumadin)Indicatio ns:Pulmonary embolism and infarction (HCC) Take 0.5-1 Tablets by mouth every evening. Or take as instructed by the [facility] 90 Tablet 3 [...] as of this encounter (statuses as of 12/05/2023) Active Problems Problem Noted Date Diagnosed Date [...] rinse after steroid. Test performed by Sameer PHYSICIAN OFFICE NURSE CPFT Pleural plaque due to asbestos exposure Restrictive lung disease Overview: In Check dial performed to assess inhaler technique: 12/15/19 Name of inhalers Albuterol Pass: Yes at 60 L/min and Advair Pass: Yes at 60 L/min. Encouraged to to take deep breath, use aero chamber, and rinse after steroid. Test performed by Sameer PHYSICIAN OFFICE NURSE CPFT Hx of pulmonary embolus 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 Overview: [place] C0-M6 documented as of this encounter (statuses as of 12/05/2023) Resolved Problems Problem Noted Date Diagnosed Date [...] infection 08/22/2005 04/05/2016 Anal fissure 06/04/2005 10/16/2007 skilled nursing current use of ant icoagulant therapy 05/30/2005 [...] as of this encounter (statuses as of 12/05/2023) Immunizations Name Administration Dates Next Due COVID-19 mRNA, LNP-s, No Pre serve, 2-Dose Series (MYOMO) 12/01/2021,01/16/2021,12/26/2020 COVID-19, LNP-s, No Preserve , Ozzy-sucrose, Ages 12+ (MYOMO) 12/01/2021 COVID-19, MRNA-LNP, 23-24, P F, 30 [...] Sign Reading Time Taken Comments Blood Pressure 106/67 12/05/2023 11:57 AM EST Pulse - - Temperature - - Respiratory Rate - - Oxygen Saturation - - Inhaled Oxygen Concentration - - Weight - - Height - - Body Mass Index - - documented in this encounter Nursing Notes * Wendy Rowland RN - 12/05/2023 12:41 PM EST Chair 4. Patient here for Procrit injection, 40,000 units for hgb 10.8. Patient's goal is >11. Injection given in R arm per order. Patient will return in 1 week for Procrit if needed after labs are assessed. documented in this encounter Plan of Treatment Upcoming Encounters Date Type Department Care Team (Late st Contact Info) Description 12/06/2023 11:00 AM EST Office Visit Ophthalmology, [facility] 132 [facility] [place] [address] Pablo Casanova T, DO [address] [place] [address] 12/11/2023 10:30 AM EST Laboratory Laboratory [address] [place] [phone] [address] [place] [address] 12/12/2023 6:30 AM EST Anticoagulation Pharmacy Call Center WB [address] [place] [address] [facility] 58 60 [facility] [place] [address] 12/12/2023 11:00 AM EST Immunization/Injection Hematology/Oncology Treatment, [place] [address] [place] [address] Nurse, Med 4 [address] [place] [address] 12/18/2023 9:00 AM EST Laboratory Laboratory [address] [place] [phone] [place] [address] 12/19/2023 11:00 AM EST Immunization/Injection Hematology/Oncology Treatment, [place] 200 [place] [address] Nurse, Med 4 200 [facility] [place] [address] 12/23/2023 9:30 AM EST Office Visit Ophthalmology, [facility] 132 [facility] [place] [address] Pablo Casanova, [address] [address] 12/25/2023 9:00 AM EST Laboratory Laboratory [address] [place] [phone] [address] [place] [address] 12/26/2023 11:00 AM EST Immunization/Injection Hematology/Oncology Treatment, [place] 200 [facility], [place] [address] Nurse, Med 4 200 [facility] [place] [address] 12/31/2023 1:00 PM EST Cardiac Studies Cardiology [address] [place] [address] Og Frazier [facility] 132 [facility] [place] [address] 01/01/2024 9:00 AM EST Laboratory Laboratory [address] [place] [phone] [place] [address] 01/02/2024 11:00 AM EST Immunization/Injection Hematology/Oncology Treatment, [place] [facility] [address] Nurse, Med 4 200 [facility] [place] [address] 01/03/2024 10:30 AM EST Imaging Radiology [address], [place] 132 [facility] [place] [address] 01/07/2024 9:00 AM EST Laboratory Laboratory [address] [place] [phone] [place] [address] 01/08/2024 10:00 AM EST Office Visit Hematology/Oncology [facility] 200 [facility] [place] [address] Ludwig Louis MD 200 [facility] [place] [address] 01/08/2024 11:00 AM EST Immunization/Injection Hematology/Oncology Treatment, [place] [facility] [address] Nurse, Med 4 200 [facility] [place] [address] 02/11/2024 11:00 AM EDT Office Visit Family Medicine [address] [place] [phone] Bell Mcqueen MD [address] [place] [address] [place] [address] 08/10/2024 1:40 PM EDT Office Visit Rheumatology [address] [place] [phone] Win Nielsen MD [address] [place] [address] Scheduled Procedures Name Priority Associated Diagnoses Date/Ti me ESOPHAGOGASTRODUODENOSCOPY ( EGD), FLEXIBLE, TRANSORAL, DIAGNOSTIC Recall Stark's esophagus with dysplasia Health Maintenance Due Date Last Done Comments Depression Screening 07/12/2021 07/12/2020 CKD PHOS USE SMARTSET 47249 08/21/[address] 02/2021, 07/12/2020, 03/13/2019, Additional history exists *BISPHONATE OR OTHER ACCEPTABLE MEDICATION NEEDED FOR OSTEOPOROSIS (REFER TO SMARTSET #1146) 10/14/2023 Albumin/Creatinine Ratio 04/22/2024 023, 05/24/2022, 03/26/2022, Additional history exists TSH 10/08/2024 10/08/2023, 01/2023, 06/19/2023, Additional history exists CKD HGB USE SMARTSET 55731 12/04/202412/04, 12/04/2023, 11/27/2023, Additional history exists Stark's Esophagus Surveilance 02/26/2025 02/26/2022, 02/26/2022, 07/04/2021, Additional history exists DXA Scan 07/05/2025 07/05/2023, 10/19, 11/04/2018, Additional history exists DTaP,Tdap,and Td Vaccines (2 - Td or Tdap) 08/19/2027 08/19/2017, 08/20/2008 Pneumococcal Vaccine: 65+ Years Completed 06/23/2015, 05/14/2013, 04/18/2004 Zoster Vaccines Completed 12/02/2020, 08/15/2020 VITAMIN D LEVEL ONCE IN A LIFETIME-USE SMARTSET# 50075 Completed 04/22/2023, 08/28/2021, 07/14/2015 Influenza Vaccine (FLU [...] this encounter Medical Devices Implanted Type Area Assistant Floor Covering Printer Device Identifier Shelf Expiration Date Model / Serial / Lot Power Port 8fr Sngl Lumen Plas - [id number] Implanted:Qty: 1 on 02/22/2022 at [facility] : PERIPHERAL VASCULAR [id number] 02/15/2023 [id number] / / [id number] documented as of this encounter Visit Diagnoses [...] Action Date Dose Rate Site Epoetin Ivan [address] UNIT/ML inj 40,000 Units 40,000 Units, Subcutaneous, ONCE, On Marilin 12/05/23 at 1230, For 1 dose Given 12/05/2023 12:03 PM EST 40,000 Units Arm Right Upper documented in this encounter Advance Directives Latest Code Status on File Code Status Date Activated Date Inactivated Comments Full Code 09/03/2007 7:29 AM 09/03/2007 4:02 PM Care Teams Special Needs Caregiver Relationship Specialty Start Date End Date Juancho Romero MD [address] [place] [address] [place] [address] PCP - General Family Medicine 12/27/16 documented as of this encounter
--- OUTSIDE RECORDS SUMMARY | 2024-01-23 21:07 | External Medical Summary | Summary of Care ---
Author Name Unknown Organization [facility] Address [address] [place] [address] Phone [phone] Care Team Providers Care Warp Dyeing Vat Tender Name Role Phone Juancho Romero MD Primary Care Provider [phone] Reason for Visit * Reason Comments Dosage Adjustment Via Phone (anticoag Cl inic) Encounter Details Date Type Department Care Team (Latest Contact Info) Description 12/04/2023 6:15 PM EST Anticoagulation Pharmacy Call Center [phone] [place] [address] [facility] 58 [address] [place] [address] Hx of pulmonary embolus*; Longstanding persistent atrial fibrillation (HCC) Allergies Active Allergy Reactions Criticality Noted Date Comments Penicillins Other (Please comment),Rash High Eyes swell Pollen 05/03/2022 Wound Dressing Adhesive Rash 05/02/2023 Patient reported documented as of this encounter (statuses as of 12/04/2023) Medications Medication Sig Dispensed Refills Start Date [...] albuterol 120 mL 5 11/21/2022 Active Ipratropium [place] 0.02 % Inhalation Solution (Atrovent)Indicatio ns:Moderate persistent [...] Respimat 2.5 MCG/ACT Inhalation Aerosol Solution (Tiotropium [place] Monohydrate)Indicat ions:Moderate persistent asthma without complication INHALE 2 PUFFS BY MOUTH EVERY DAY 12 g 3 04/30/2023 Active Rosuvastatin Calcium 10 MG Oral Tablet (Crestor) TAKE 1 TABLET BY MOUTH EVERY DAY 90 Tablet 1 05/27/2023 Active Warfarin Sodium 5 MG Oral Tablet (Coumadin)Indicatio ns:Pulmonary embolism and infarction (HCC) Take 0.5-1 Tablets by mouth every evening. Or take as instructed by the [facility] 90 Tablet 3 08/09/2023 [...] as of this encounter (statuses as of 12/04/2023) Active Problems Problem Noted Date Diagnosed Date [...] after steroid. Test performed by Sameer DIRECTOR GAME CPFT Pleural plaque due to asbestos exposure Restrictive lung disease Overview: In Check dial performed to assess inhaler technique: 12/15/19 Name of inhalers Albuterol Pass: Yes at 60 L/min and Advair Pass: Yes at 60 L/min. Encouraged to to take deep breath, use aero chamber, and rinse after steroid. 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 current use of ant icoagulant therapy 05/30/2005 [...] as of this encounter (statuses as of 12/04/2023) Immunizations Name Administration Dates Next Due COVID-19 mRNA, LNP-s, No Pre serve, 2-Dose Series ([employer]) 12/01/2021,01/16/2021,12/26/2020 COVID-19, LNP-s, No Preserve , Ozzy-sucrose, Ages 12+ ([employer]) 12/01/2021 COVID-19, MRNA-LNP, 23-24, P F, 30 MCG/0.3 mL, 12 YRS AND ABOVE, IM (EzLike-Comirnat) 09/18/2023 Covid-19, Mrna, Lnp-s, Pf, B ivalent, 30 Mcg, IM, 12 yrs and above ([employer]) 10/09/2022 Pneumococcal Conjugate Vacc, 13 Valent (Prevnar) [...] Progress Notes * Sheela Baugh RPh - 12/04/2023 1:18 PM EST Noted - thank you; INR in tracker updated to reflect reported value of 1.7, rather than 1.6. Thanks, Sheela Baugh, PharmD Clinical Pharmacist [facility] ([facility]) (Formerly Telepharmacy) [phone] 12/04/2023 1:18 PM * Tammie Rogers CPhT - 12/04/2023 1:13 PM EST Contacts Type Contact Phone/Fax 12/04/2023 01:04 PM EST Phone (Outgoing) RAS CARMEN (Emergency Contact) [phone] Subjective Patient Findings Positives: Other complaints (A little raw and red near his eye where he is having surgery) Negatives: Signs/symptoms of bleeding, Change in health, Change in activity, Upcoming invasive procedure, Missed doses, Extra doses, Change in medications, Change in diet/appetite, Bruising Comments: Spoke to the pts . His INR was 1.7 not 1.6. Spoke with Sheela and she suggested thatNo changes - his provider wanted INR around 2.0. no changes to the plan - he can bolus on saturday. thank you so much for letting me know about that INR change. Advised patient to contact Anticoagulation Clinic if any unusual bruising or bleeding, recent illness, changes in medication, or questions/concerns. PT/INR results, Coumadin dose instructions, and next PT/INR date communicated as noted by Pharmacist: Yes Tammie Rogers CPhT 12/04/2023, 1:13 PM * Sheela Baugh RPh - 12/04/2023 9:55 AM EST Images from the original note were not included. Coumadin Clinic (region specific) Objective Current Warfarin Dose As of 12/04/2023 Warfarin maintenance plan: 0 mg every Mon; 2.5 mg (5 mg x 0.5) all other days INR Result As of 12/04/2023 INR goal: 2.0-3.0 INR used for dosin.6 (12/04/2023) Assessment & Plan Warfarin Plan As of 12/04/2023 Full warfarin instructions: 12/06: 5 mg; Otherwise 0 mg every Mon; 2.5 mg all other days Next INR check: 12/11/2023 NOTE - warfarin bolus on 12/06/23 (NOT 12/04 or 12/05) due to eye procedure that day 12/06. Doc requested INR around 2.0 for eye procedure. Repeat PT/INR in 1 week(s) Weekly dose: not changed Additional Dosing Information: Description Home equipment or machinery cleaner to contact patient with dose instructions as noted. Sheela Baugh RPh 12/04/2023, 9:55 AM documented in this encounter Plan of Treatment Upcoming Encounters Date Type Department Care Team (Late st Contact Info) Description 12/06/2023 11:00 AM EST Office Visit Ophthalmology, [facility] 132 [facility] [place] [address] Pablo Casanova, DO [address] [place] [address] 12/11/2023 10:30 AM EST Laboratory Laboratory [address] [place] [phone] [address] [place] [address] 12/12/2023 11:00 AM EST Immunization/Injecti on Hematology/Oncology Treatment, [place] [address] [place] [address] Nurse, Med 4 [address] [facility] [address] 12/23/2023 9:30 AM EST Office Visit Ophthalmology, [facility] 132 [facility] [place] [address] Pablo Casanova, DO [address] [place] [address] 12/31/2023 1:00 PM EST Cardiac Studies Cardiology [address] [place] [address] [place], [facility] 132 [facility] [place] [address] 01/03/2024 10:30 AM EST Imaging Radiology [facility] [address] [place] [address] 01/06/2024 10:30 AM EST Laboratory Laboratory [address] [place] [phone] [address] [place] [address] 01/08/2024 10:00 AM EST Office Visit Hematology/Oncology [facility] [place] 200 [facility] [place] [address] Ludwig Louis MD 200 [facility] [place] [address] 02/11/2024 11:00 AM EDT Office Visit Family Medicine [address] [place] [phone] Bell Mcqueen MD [address] [place] [address] [place] [address] 08/10/2024 1:40 PM EDT Office Visit Rheumatology [address] [place] [phone] Win Nielsen MD [address] [place] [address] [address] [place], [place] [address] Scheduled Procedures Name Priority Associated Diagnoses Date/Ti me ESOPHAGOGASTRODUODENOSCOPY ( EGD), FLEXIBLE, TRANSORAL, DIAGNOSTIC Recall Stark's esophagus with dysplasia Health Maintenance Due Date Last Done Comments Depression Screening 07/12/2021 07/12/2020 CKD PHOS USE SMARTSET 86496 08/21/20220 02/2021, 07/12/2020, 03/13/2019, Additional history exists *BISPHONATE OR OTHER ACCEPTABLE MEDICATION NEEDED FOR OSTEOPOROSIS (REFER TO SMARTSET #1146) 10/14/2023 Albumin/Creatinine Ratio 04/22/2024 023, 05/24/2022, 03/26/2022, Additional history exists TSH 10/08/2024 10/08/2023, 100 01/2023, 06/19/2023, Additional history exists CKD HGB USE SMARTSET 59440 11/27/202411/27, 11/27/2023, 11/20/2023, Additional history exists Stark's Esophagus Surveilance 02/26/2025 02/26/2022, 02/26/2022, 07/04/2021, Additional history exists DXA Scan 07/05/2025 07/05/2023, 10/19, 11/04/2018, Additional history exists DTaP,Tdap,and Td Vaccines (2 - Td or Tdap) 08/19/2027 08/19/2017, 08/20/2008 Pneumococcal Vaccine: 65+ Years Completed 06/23/2015, 05/14/2013, 04/18/2004 Zoster Vaccines Completed 12/02/2020, 08/15/2020 VITAMIN D LEVEL ONCE IN A LIFETIME-USE SMARTSET# [id number] Completed 04/22/2023, 08/28/2021, 07/14/2015 Influenza Vaccine (FLU [...] this encounter Medical Devices Implanted Type Area Plumber Maintenance Device Identifier Shelf Expiration Date Model / Serial / Lot Power Port 8fr Sngl Lumen Plas - [id number] Implanted:Qty: 1 on 02/22/2022 at [facility] CR BARD : PERIPHERAL VASCULAR [id number] 02/15/2023 [id number] / / [id number] documented as of this encounter Procedures Procedure Name Priority Date/Time Associated Diagnosis Comments OUTSIDE LAB-PT/INR Routine 12/04/2023 documented in this encounter Results * OUTSIDE LAB-PT/INR (12/04/2023) INR-OUTSIDE LAB 1.7 HOME FINGERSTIC K DEVICE History Per Patient LABORATORY HOME FINGERSTICK DEVICE documented in this encounter Visit Diagnoses Diagnosis Hx of pulmonary embolus- Primary Personal history of pulmonary embolism Longstanding persistent atrial fibrillation (HCC) documented in this encounter Advance Directives Latest Code Status on File Code Status Date Activated Date Inactivated Comments Full Code 09/03/2007 7:29 AM 09/03/2007 4:02 PM Care Teams Warp Dyeing Vat Tender Relationship Specialty Start Date End Date Juancho Romero MD [address] [place] [address] [place] [phone] PCP - General Family Medicine 12/27/16 documented as of this encounter
--- OUTSIDE RECORDS SUMMARY | 2024-01-23 21:07 | External Medical Summary ---
Author Name Unknown Address Unknown Organization K01:[facility] [place] [facility] [address] [facility] [address] [place] [address] Laboratory Report Ordering Provider Test Date Status ADRIENNE SALCIDO 12/04/2023 11:07:45 Final Observation Date Value Abnormality Reference (Units ) Status WBC, Total 12/04/2023 11:07:45 4.37 4.00-10.80 (K/uL) Final RBC 12/04/2023 11:07:45 3.77 4.50-5.25 (M/uL) Final Hemoglobin 12/04/2023 11:07:45 10.8 Below low normal 14.0-16.8 (g/dL) Final HCT 12/04/2023 11:07:45 37.2 Below low normal 40.0-48.4 (%) Final MCV 12/04/2023 11:07:45 98.7 82.0-99.5 (fL) Final MCH 12/04/2023 11:07:45 28.6 27.0-34.0 (pg) Final MCHC 12/04/2023 11:07:45 29.0 32.0-36.0 (g/dL) Final RDW 12/04/2023 11:07:45 18.1 11.5-15.5 (%) Final Platelets 12/04/2023 11:07:45 89 Below low normal 140-400 (K/uL) Final MPV 12/04/2023 11:07:45 10.4 6.6-11.1 (fL) Final Nucleated erythrocytes/100 leukocytes [Ratio] in Blood by Automated count 12/04/2023 11:07:45 0 <=0 (/100 WBCs) Final Performing Location [facility] [place] [address] [place] [address]
--- OUTSIDE RECORDS SUMMARY | 2024-01-23 21:07 | External Medical Summary | Summary of Care ---
Author Name Unknown Organization [facility] Address [address] [place] [address] Phone [phone] Care Team Providers Care Fire Protection Engineering Technician Name Role Phone Juancho Romero MD Primary Care Provider [phone] Encounter Details Date Type Department Care Team (Late st Contact Info) Description 12/05/2023 Orders Only Hematology/Oncology, [facility] [address] [place] [address] Ludwig Louis MD [address] [place], [place] [phone] Allergies Active Allergy Reactions Criticality Noted Date [...] albuterol 120 mL 5 11/21/2022 Active Ipratropium [place] 0.02 % Inhalation Solution (Atrovent)Indicatio ns:Moderate persistent [...] Respimat 2.5 MCG/ACT Inhalation Aerosol Solution (Tiotropium [place] Monohydrate)Indicat ions:Moderate persistent asthma without complication INHALE [...] [facility] 90 Tablet 3 08/09/2023 [...] rinse after steroid. Test performed by Sameer RESTAURANT AND BAR MANAGER CPFT Pleural plaque due to asbestos exposure Restrictive lung disease Overview: In Check dial performed to assess inhaler technique: 12/15/19 Name of inhalers Albuterol Pass: Yes at 60 L/min and Advair Pass: Yes at 60 L/min. Encouraged to to take deep breath, use aero chamber, and rinse after steroid. 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 05/30/2005 [...] mRNA, LNP-s, No Pre serve, 2-Dose Series ([email or web address]) 12/01/2021,01/16/2021,12/26/2020 COVID-19, LNP-s, No Preserve , Ozzy-sucrose, Ages 12+ ([email or web address]) 12/01/2021 COVID-19, MRNA-LNP, 23-24, P F, 30 MCG/0.3 mL, 12 YRS AND ABOVE, IM (Lumenis-Comirnaty) 09/18/2023 Covid-19, Mrna, Lnp-s, Pf, B ivalent, 30 Mcg, IM, 12 yrs and above ([email or web address]) 10/09/2022 Pneumococcal Conjugate Vacc, 13 Valent (Prevnar) [...] 12/06/2023 11:00 AM EST Office Visit Ophthalmology, [facility] 132 [facility] [place] [address] Pablo Casanova T, DO [address] [place], [place] [address] [address] 12/11/2023 10:30 AM EST Laboratory Laboratory [address] [place] [phone] [address] [place] [address] 12/12/2023 6:30 AM EST Anticoagulation Pharmacy Call Center WB [phone] [place] [address] [facility] 58 60 [facility] [place] [address] 12/12/2023 11:00 AM EST Immunization/Injection Hematology/Oncology Treatment, [place] [facility] [address] Nurse, Med 4 200 [facility] [place] [address] 12/18/2023 9:00 AM EST Laboratory Laboratory [address] [place] [phone] [address] [place] [address] 12/19/2023 11:00 AM EST Immunization/Injection Hematology/Oncology Treatment, [address] [address] Nurse, Med 4 200 [facility] [place] [address] 12/23/2023 9:30 AM EST Office Visit Ophthalmology, [facility] 132 [facility] [place] [address] Pablo Casanova T, [address] [address] 12/25/2023 9:00 AM EST Laboratory Laboratory [address] [place] [phone] [address] [place] [address] 12/26/2023 11:00 AM EST Immunization/Injection Hematology/Oncology Treatment, [place] [facility] [address] Nurse, Med 4 [facility] [place] [address] 12/31/2023 1:00 PM EST Cardiac Studies Cardiology [address] [place] [address] [facility] 132 [facility] [place] [address] 01/01/2024 9:00 AM EST Laboratory Laboratory [address] [place] [phone] [address] [place] [address] 01/02/2024 11:00 AM EST Immunization/Injection Hematology/Oncology Treatment, [place] 200 [facility] [place] [address] Nurse, Med 4 200 [facility] [place] [address] 01/03/2024 10:30 AM EST Imaging Radiology [address], [place] [facility] [place] [address] 01/07/2024 9:00 AM EST Laboratory Laboratory [address] [place] [phone] [address] [place] [address] 01/08/2024 10:00 AM EST Office Visit Hematology/Oncology [facility] 200 [facility] [place] [address] Ludwig Louis MD 200 [facility] [place] [address] 01/08/2024 11:00 AM EST Immunization/Injection Hematology/Oncology Treatment, [place] 200 [facility] [place] [address] Nurse, Med 4 200 [facility] [place] [address] 02/11/2024 11:00 AM EDT Office Visit Family Medicine [address] [place] [phone] Bell Mcqueen MD [address] [place] [address] [place] [address] 08/10/2024 1:40 PM EDT Office Visit Rheumatology [address] [place] [phone] Win Nielsen MD [address] [place] [address] Scheduled Procedures Name Priority Associated Diagnoses Date/Ti me ESOPHAGOGASTRODUODENOSCOPY ( EGD), FLEXIBLE, TRANSORAL, DIAGNOSTIC Recall Stark's esophagus with dysplasia Health Maintenance Due Date Last Done Comments Depression Screening 07/12/2021 07/12/2020 CKD PHOS USE SMARTSET 45217 08/21/202202/2021, 07/12/2020, 03/13/2019, Additional history exists *BISPHONATE OR OTHER ACCEPTABLE MEDICATION NEEDED FOR OSTEOPOROSIS (REFER TO SMARTSET #1146) 10/14/2023 Albumin/Creatinine Ratio 04/22/2024 023, 05/24/2022, 03/26/2022, Additional history exists TSH 10/08/2024 10/08/2023, 01/2023, 06/19/2023, Additional history exists CKD HGB USE SMARTSET 87113 12/04/202412/04, 12/04/2023, 11/27/2023, Additional history exists Stark's Esophagus Surveilance 02/26/2025 02/26/2022, 02/26/2022, 07/04/2021, Additional history exists DXA Scan 07/05/2025 07/05/2023, 10/19, 11/04/2018, Additional history exists DTaP,Tdap,and Td Vaccines (2 - Td or Tdap) 08/19/2027 08/19/2017, 08/20/2008 Pneumococcal Vaccine: 65+ Years Completed 06/23/2015, 05/14/2013, 04/18/2004 Zoster Vaccines Completed 12/02/2020, 08/15/2020 VITAMIN D LEVEL ONCE IN A LIFETIME-USE SMARTSET# [id number] Completed 04/22/2023, 08/28/2021, 07/14/2015 Influenza Vaccine (FLU [...] this encounter Medical Devices Implanted Type Area Stablehand Device Identifier Shelf Expiration Date Model / Serial / Lot Power Port 8fr Sngl Lumen Plas - [id number] Implanted:Qty: 1 on 02/22/2022 at [facility] CR BARD : PERIPHERAL VASCULAR [id number] 02/15/2023 [id number] / / [id number] documented as of this encounter Advance Directives Latest Code Status on File Code Status Date Activated Date Inactivated Comments Full Code 09/03/2007 7:29 AM 09/03/2007 4:02 PM Care Teams Fire Protection Engineering Technician Relationship Specialty Start Date End Date Juancho Romero MD [address] [place] [address] [place] [phone] PCP - General Family Medicine 12/27/16 documented as of this encounter
--- OUTSIDE RECORDS SUMMARY | 2024-01-23 21:07 | External Medical Summary ---
Author Name Unknown Address Unknown Organization K01:[facility] [place] [address] [facility] [place] [address] Laboratory Report Ordering Provider Test Date Status ADRIENNE SALCIDO 12/04/2023 11:07:45 Final Observation Date Value Abnormality Reference (Units ) Status SYNC LEUKOCYTES IN BLOOD BY AUTOMATED COUNT 12/04/2023 11:07:45 4.37 4.00-10.80 (K/uL) Final Segs 12/04/2023 11:07:45 72.6 40.0-75.0 (%) Final Lymphs % 12/04/2023 11:07:45 13.5 Below low normal 18.0-42.0 (%) Final Monos 12/04/2023 11:07:45 10.1 1.0-11.0 (%) Final Eosinophils 12/04/2023 11:07:45 1.8 0.0-6.0 (%) Final Basos 12/04/2023 11:07:45 1.1 0.0-2.0 (%) Final Immature Granulocyte, Percent 12/04/2023 11:07:45 0.9 0.0-2.0 (%) Final Absolute Segs 12/04/2023 11:07:45 3.17 1.80-7.70 (K/uL) Final Lymphs, absolute 12/04/2023 11:07:45 0.59 Below low normal 1.00-4.80 (K/ul) Final Monos, Abs 12/04/2023 11:07:45 0.44 0.00-1.10 (K/uL) Final Eos, Abs 12/04/2023 11:07:45 0.08 0.00-0.70 (K/uL) Final Basos, Abs 12/04/2023 11:07:45 0.05 0.00-0.20 (K/uL) Final Immature Granulocytes, Number 12/04/2023 11:07:45 0.04 0.00-0.20 (K/uL) Final Performing Location [facility] [place] [facility] [place] [address]
--- OUTSIDE RECORDS SUMMARY | 2024-01-23 21:07 | External Medical Summary | Summary of Care ---
Author Name Unknown Organization [facility] Address [address] [place] [address] Phone [phone] Care Team Providers Care Risk Specialist Name Role Phone Juancho Romero MD Primary Care Provider [phone] Reason for Visit * Reason Comments Outpatient Testing Encounter Details Date Type Department Care Team (Late st Contact Info) Description 12/04/2023 10:30 AM EST Laboratory Laboratory [address] [place] [phone] [place] [address] Urothelial carcinoma of bladder (HCC) Allergies Active [...] albuterol 120 mL 5 11/21/2022 Active Ipratropium [place] 0.02 % Inhalation Solution (Atrovent)Indicatio ns:Moderate persistent [...] Respimat 2.5 MCG/ACT Inhalation Aerosol Solution (Tiotropium [place] Monohydrate)Indicat ions:Moderate persistent asthma without complication INHALE 2 PUFFS BY MOUTH EVERY DAY 12 g 3 04/30/2023 Active Rosuvastatin Calcium 10 MG Oral Tablet (Crestor) TAKE 1 TABLET BY MOUTH EVERY DAY 90 Tablet 1 05/27/2023 Active Warfarin Sodium 5 MG Oral Tablet (Coumadin)Indicatio ns:Pulmonary embolism and infarction (HCC) Take 0.5-1 Tablets by mouth every evening. Or take as instructed by the [facility] 90 Tablet 3 08/09/2023 Active [...] Magnesium 40 MG Oral Capsule Delayed ReleaseIndications: Satrk's esophagus determined by endoscopy TAKE 1 CAPSULE [...] rinse after steroid. Test performed by Sameer CORPORATE BANKING OFFICER CPFT Pleural plaque due to asbestos exposure Restrictive lung disease Overview: In Check dial performed to assess inhaler technique: 12/15/19 Name of inhalers Albuterol Pass: Yes at 60 L/min and Advair Pass: Yes at 60 L/min. Encouraged to to take deep breath, use aero chamber, and rinse after steroid. Test performed by Sameer CORPORATE BANKING OFFICER CPFT Hx of pulmonary embolus 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 Overview: [place] C0-M6 documented as of this encounter (statuses [...] Malignant neoplasm of prostate 09/23/2008 03/27/2018 Overview: [place] grade 3 Atrial flutter 09/02/2007 10/16/2007 [...] mRNA, LNP-s, No Pre serve, 2-Dose Series ([employer]) 12/01/2021,01/16/2021,12/26/2020 COVID-19, LNP-s, No Preserve , Ozzy-sucrose, Ages 12+ ([employer]) 12/01/2021 COVID-19, MRNA-LNP, 23-24, P F, 30 MCG/0.3 mL, 12 YRS AND ABOVE, IM ([employer]-Comirnat) 09/18/2023 Covid-19, Mrna, Lnp-s, Pf, B ivalent, 30 Mcg, IM, 12 yrs and above ([employer]) 10/09/2022 Pneumococcal Conjugate Vacc, 13 Valent (Prevnar) [...] Pharmacy Call Center [address] [place] [address] [facility] 58 60 [facility] [place] [address] Hx of pulmonary embolus*; Longstanding persistent atrial fibrillation (HCC) 12/06/2023 11:00 AM EST Office Visit Ophthalmology, [facility] 132 [facility] [place] [phone] Pablo Casanova T, DO [address] [place] [address] [place] [address] 12/11/2023 10:30 AM EST Laboratory Laboratory [address] [place] [phone] [place] [address] 12/12/2023 11:00 AM EST Immunization/Injection Hematology/Oncolo gy [facility] [place] 200 [facility] [place] [address] Nurse, Med 200 [facility] [place] [address] 12/23/2023 9:30 AM EST Office Visit Ophthalmology, [facility] 132 [facility] [place] [address] Pablo Casanova, [address] [address] 12/31/2023 1:00 PM EST Cardiac Studies Cardiology [address] [place] [address] [facility] 132 [facility] [place] [address] 01/03/2024 10:30 AM EST Imaging Radiology [place] [address] [place] [address] 01/06/2024 10:30 AM EST Laboratory Laboratory [address] [place] [phone] [place], Lab [address] [place] [address] 01/08/2024 10:00 AM EST Office Visit Hematology/Oncolo gy [facility] [address] [place] [address] Ludwig Louis MD [address] [place] [address] 02/11/2024 11:00 AM EDT Office Visit Family Medicine [address] [place] [phone] Bell Mcqueen MD [address] [place] [address] [place] [address] 08/10/2024 1:40 PM EDT Office Visit Rheumatology [address] [place] [phone] Win Nielsen MD [address] [place] [address] [place] [address] Pending Results Name Type Priority Associated Diagnoses Date /Time CBC WITH WBC DIFFERENTIAL Lab STAT Urothelial carcinoma of bladder ([facility]) 12/04/2023 11:07 AM EST CBC Lab STAT Urothelial carcinoma of bladder ([facility]) 12/04/2023 11:07 AM EST DIFFERENTIAL, AUTOMATED Lab STAT Urothelial carcinoma of bladder ([facility]) 12/04/2023 11:07 AM EST Scheduled Procedures Name Priority Associated Diagnoses Date/Ti me ESOPHAGOGASTRODUODENOSCOPY ( EGD), FLEXIBLE, TRANSORAL, DIAGNOSTIC Recall Stark's esophagus with dysplasia Health Maintenance Due Date Last Done Comments Depression Screening 07/12/2021 07/12/2020 CKD PHOS USE SMARTSET 87710 08/21/2022 100 02/2021, 07/12/2020, 03/13/2019, Additional history exists *BISPHONATE OR OTHER ACCEPTABLE MEDICATION NEEDED FOR OSTEOPOROSIS (REFER TO SMARTSET #1146) 10/14/2023 Albumin/Creatinine Ratio 04/22/2024 023, 05/24/2022, 03/26/2022, Additional history exists TSH 10/08/2024 10/08/2023, 100 01/2023, 06/19/2023, Additional history exists CKD HGB USE SMARTSET 53600 11/27/202411/27, 11/27/2023, 11/20/2023, Additional history exists Stark's Esophagus Surveilance 02/26/2025 02/26/2022, 02/26/2022, 07/04/2021, Additional history exists DXA Scan 07/05/2025 07/05/2023, 10/19, 11/04/2018, Additional history exists DTaP,Tdap,and Td Vaccines (2 - Td or Tdap) 08/19/2027 08/19/2017, 08/20/2008 Pneumococcal Vaccine: 65+ Years Completed 06/23/2015, 05/14/2013, 04/18/2004 Zoster Vaccines Completed 12/02/2020, 08/15/2020 VITAMIN D LEVEL ONCE IN A LIFETIME-USE SMARTSET# [id number] Completed 04/22/2023, 08/28/2021, 07/14/2015 Influenza Vaccine (FLU [...] this encounter Medical Devices Implanted Type Area Commercial Producer Device Identifier Shelf Expiration Date Model / Serial / Lot Power Port 8fr Sngl Lumen Plas - [id number] Implanted:Qty: 1 on 02/22/2022 at [facility] CR BARD : PERIPHERAL VASCULAR [id number] 02/15/2023 [id number] / / [id number] documented as of this encounter Visit Diagnoses Diagnosis Hx of pulmonary embolus- Primary Personal history of pulmonary embolism Longstanding persistent atrial fibrillation (HCC) Urothelial carcinoma of bladder (HCC) documented in this encounter Advance Directives Latest Code Status on File Code Status Date Activated Date Inactivated Comments Full Code 09/03/2007 7:29 AM 09/03/2007 4:02 PM Care Teams Risk Specialist Relationship Specialty Start Date End Date Juancho Romero MD [address] [place] [address] [place] [phone] PCP - General Family Medicine 12/27/16 documented as of this encounter
--- OUTSIDE RECORDS SUMMARY | 2024-01-23 21:07 | External Medical Summary | Summary of Care ---
Author Name Unknown Organization [facility] Address [address] Care Team Providers Care Eggs Inspector Name Role Phone Juancho Romero MD Primary Care Provider [phone] Reason for Visit * Reason Onset Date Comments Procedure 12/02/2023 Encounter Details Date Type Department Care Team (Late st Contact Info) Description 12/02/2023 Telephone Pharmacy, [facility] [place] [address] [facility] [place] [address] [facility] 58 60 [facility] [place] [address] Procedure Allergies Active Allergy Reactions Criticality Noted Date Comments Penicillins Other (Please comment),Rash High Eyes swell Pollen 05/03/2022 Wound Dressing Adhesive Rash 05/02/2023 Patient reported documented as of this encounter (statuses as of 12/02/2023) Medications Medication Sig Dispensed Refills Start Date [...] albuterol 120 mL 5 11/21/2022 Active Ipratropium [place] 0.02 % Inhalation Solution (Atrovent)Indicatio ns:Moderate persistent [...] Respimat 2.5 MCG/ACT Inhalation Aerosol Solution (Tiotropium [place] Monohydrate)Indicat ions:Moderate persistent asthma without complication INHALE [...] as of this encounter (statuses as of 12/02/2023) Active Problems Problem Noted Date Diagnosed Date [...] rinse after steroid. Test performed by Sameer TAIL BOARD MAN CPFT Pleural plaque due to asbestos exposure Restrictive lung disease Overview: In Check dial performed to assess inhaler technique: 12/15/19 Name of inhalers Albuterol Pass: Yes at 60 L/min and Advair Pass: Yes at 60 L/min. Encouraged to to take deep breath, use aero chamber, and rinse after steroid. 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 05/30/2005 [...] as of this encounter (statuses as of 12/02/2023) Immunizations Name Administration Dates Next Due COVID-19 mRNA, LNP-s, No Pre serve, 2-Dose Series ([employer]) 12/01/2021,01/16/2021,12/26/2020 COVID-19, LNP-s, No Preserve , Ozzy-sucrose, Ages 12+ ([employer]) 12/01/2021 COVID-19, MRNA-LNP, 23-24, P F, 30 MCG/0.3 mL, 12 YRS AND ABOVE, IM ([employer]-Comirnat) 09/18/2023 Covid-19, Mrna, Lnp-s, Pf, B ivalent, 30 Mcg, IM, 12 yrs and above ([employer]) 10/09/2022 Pneumococcal Conjugate Vacc, 13 Valent (Prevnar) [...] encounter Miscellaneous Notes * Telephone Encounter - Pauly Rivera [facility] - 12/02/2023 4:14 PM EST Medication Therapy Disease Management - Anticoagulation Patient: Patrick Carmen | : 1935 Subjective Contacts Type Contact Phone/Fax 12/02/2023 04:15 PM EST Phone (Outgoing) JODY CARMEN (Emergency Contact) [phone] Patient-Reported Symptoms: Patient Findings Positives: Upcoming invasive procedure (12/06/23- blepharoplasty (eyelid skin removal)- INR needs keny around 2.0, will check INR on 12/04 early in day and call into [facility]) Objective Current Warfarin Dose As of 12/02/2023 Warfarin maintenance plan: 0 mg every Mon; 2.5 mg (5 mg x 0.5) all other days INR Result As of 12/02/2023 INR goal: 2.0-3.0 INR used for dosing: No new INR was available at the time of this encounter. Assessment & Plan Warfarin Plan As of 12/02/2023 Full warfarin instructions: 0 mg every Mon; 2.5 mg all other days Next INR check: 12/04/2023 Repeat PT/INR in 2 day(s) Weekly dose: not changed Additional Dosing Information: Description Home machine Pauly Rivera RPh Clinical Pharmacist 12/02/2023, 4:15 PM * Telephone Encounter - Poppy Santiago cooling room attendant - 12/02/2023 2:31 PM EST Caller's name: jody Preferred call back number(OFFICE NUMBER FOR ): [phone] Reason for call: spouse calling in to see if he is ok to be placed on schedule has to know today. Thank you, Poppy Santiago Pharmaceutical Physician [facility] ([facility]) (Formerly Telepharmacy) 12/02/2023,2:31 PM * Telephone Encounter - Kristie Ricks cooling room attendant - 12/02/2023 12:04 PM EST Caller's name: Jody Preferred call back number(OFFICE NUMBER FOR ): [phone] Reason for call: the doctor would like to do a blepharoplasty on Saturday if we can get the INR down around 2.0, please call Jody back today after 1pm, thank you. Kristie Ricks MA Shot Core Drill Operator I [facility] ([facility]) (formerly Telepharmacy) 58[address]60 [facility] 38-38 [place] [address] ext [phone] documented in this encounter Plan of Treatment Upcoming Encounters Date Type Department Care Team (Late st Contact Info) Description 12/04/2023 6:15 PM EST Anticoagulation Pharmacy Call Center 58-60 [facility] [place] [address] [facility] 58 60 [facility] [place] [address] 12/06/2023 11:00 AM EST Office Visit Ophthalmology, [address] [place] [address] Pablo Casanova, DO [address] [place] [address] 12/11/2023 10:30 AM EST Laboratory Laboratory [address] [place] [phone] [address] [place] [address] 12/12/2023 11:00 AM EST Immunization/Injection Hematology/Oncology Treatment, [place] [address] [place] [address] Nurse, Med 4 [address] [place] [address] 12/23/2023 9:30 AM EST Office Visit Ophthalmology, [address] [place] [address] Pablo Casanova, [address] [place] [address] 12/31/2023 1:00 PM EST Cardiac Studies Cardiology [address] [place] [address] [place], [facility] 132 [facility] [place] [address] 01/03/2024 10:30 AM EST Imaging Radiology [facility] [address] [place] [address] 01/06/2024 10:30 AM EST Laboratory Laboratory [address] [place] [phone] [address] [place] [address] 01/08/2024 10:00 AM EST Office Visit Hematology/Oncology [facility] [place] [address] [place] [address] Ludwig Louis MD [address] [place] [address] 02/11/2024 11:00 AM EDT Office Visit Family Medicine [address] [place] [phone] Bell Mcqueen MD [address] [place] [address] [place] [address] 08/10/2024 1:40 PM EDT Office Visit Rheumatology [address] [place] [phone] Win Nielsen MD [address] [place] [address] [place], [place] [address] Scheduled Procedures Name Priority Associated Diagnoses Date/Ti me ESOPHAGOGASTRODUODENOSCOPY ( EGD), FLEXIBLE, TRANSORAL, DIAGNOSTIC Recall Stark's esophagus with dysplasia Health Maintenance Due Date Last Done Comments Depression Screening 07/12/2021 07/12/2020 CKD PHOS USE SMARTSET 94115 08/21/20220 02/2021, 07/12/2020, 03/13/2019, Additional history exists *BISPHONATE OR OTHER ACCEPTABLE MEDICATION NEEDED FOR OSTEOPOROSIS (REFER TO SMARTSET #1146) 10/14/2023 Albumin/Creatinine Ratio 04/22/2024 023, 05/24/2022, 03/26/2022, Additional history exists TSH 10/08/2024 10/08/2023, 100 01/2023, 06/19/2023, Additional history exists CKD HGB USE SMARTSET 12309 11/27/202411/27, 11/27/2023, 11/20/2023, Additional history exists Stark's Esophagus Surveilance 02/26/2025 02/26/2022, 02/26/2022, 07/04/2021, Additional history exists DXA Scan 07/05/2025 07/05/2023, 10/19, 11/04/2018, Additional history exists DTaP,Tdap,and Td Vaccines (2 - Td or Tdap) 08/19/2027 08/19/2017, 08/20/2008 Pneumococcal Vaccine: 65+ Years Completed 06/23/2015, 05/14/2013, 04/18/2004 Zoster Vaccines Completed 12/02/2020, 08/15/2020 VITAMIN D LEVEL ONCE IN A LIFETIME-USE SMARTSET# [id number] Completed 04/22/2023, 08/28/2021, 07/14/2015 Influenza Vaccine (FLU [...] this encounter Medical Devices Implanted Type Area Boring Machine Set Up Operator Jig Device Identifier Shelf Expiration Date Model / Serial / Lot Power Port 8fr Sngl Lumen Plas - [id number] Implanted:Qty: 1 on 02/22/2022 at [facility] CR BARD : PERIPHERAL VASCULAR [id number] 02/15/2023 [id number] / / [id number] documented as of this encounter Visit Diagnoses Diagnosis Hx of pulmonary embolus- Primary Personal history of pulmonary embolism Longstanding persistent atrial fibrillation (HCC) documented in this encounter Advance Directives Latest Code Status on File Code Status Date Activated Date Inactivated Comments Full Code 09/03/2007 7:29 AM 09/03/2007 4:02 PM Care Teams Eggs Inspector Relationship Specialty Start Date End Date Juancho Romero MD [address] [place] [address] [place] [address] PCP - General Family Medicine 12/27/16 documented as of this encounter"
--- OUTSIDE RECORDS SUMMARY | 2024-01-23 21:08 | External Medical Summary | Summary of Care ---
Author Name Unknown Organization [facility] Address [address] Care Team Providers Care Central Office Operator Supervisor Name Role Phone Juancho Romero MD Primary Care Provider [phone] Reason for Visit * Reason Onset Date Comments Procedure 12/02/2023 Encounter Details Date Type Department Care Team (Late st Contact Info) Description 12/02/2023 Telephone Pharmacy, [facility] [place] [address] [facility] [place] [address] [facility] 58 60 [facility] [place] [address] Procedure Allergies Active Allergy Reactions Criticality Noted [...] albuterol 120 mL 5 11/21/2022 Active Ipratropium [place] 0.02 % Inhalation Solution (Atrovent)Indicatio ns:Moderate persistent [...] Respimat 2.5 MCG/ACT Inhalation Aerosol Solution (Tiotropium [place] Monohydrate)Indicat ions:Moderate persistent asthma without complication INHALE 2 PUFFS BY MOUTH EVERY DAY 12 g 3 04/30/2023 Active Rosuvastatin Calcium 10 MG Oral Tablet (Crestor) TAKE 1 TABLET BY MOUTH EVERY DAY 90 Tablet 1 05/27/2023 Active Warfarin Sodium 5 MG Oral Tablet (Coumadin)Indicatio ns:Pulmonary embolism and infarction (HCC) Take 0.5-1 Tablets by mouth every evening. Or take as instructed by the [facility] 90 Tablet 3 [...] rinse after steroid. Test performed by Sameer EAR MACHINE OPERATOR CPFT Pleural plaque due to asbestos exposure Restrictive lung disease Overview: In Check dial performed to assess inhaler technique: 12/15/19 Name of inhalers Albuterol Pass: Yes at 60 L/min and Advair Pass: Yes at 60 L/min. Encouraged to to take deep breath, use aero chamber, and rinse after steroid. Test performed by Sameer EAR MACHINE OPERATOR CPFT Hx of pulmonary embolus 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 Overview: [place] C0-M6 documented as of this encounter (statuses [...] mRNA, LNP-s, No Pre serve, 2-Dose Series ([employer]) 12/01/2021,01/16/2021,12/26/2020 COVID-19, LNP-s, No Preserve , Ozzy-sucrose, Ages 12+ ([employer]) 12/01/2021 COVID-19, MRNA-LNP, 23-24, P F, 30 MCG/0.3 mL, 12 YRS AND ABOVE, IM ([employer]-Comirnat) 09/18/2023 Covid-19, Mrna, Lnp-s, Pf, B ivalent, 30 Mcg, IM, 12 yrs and above ([employer]) 10/09/2022 Pneumococcal Conjugate Vacc, 13 Valent (Prevnar) [...] Notes * Telephone Encounter - Pauly Rivera [facility] - 12/02/2023 4:14 PM EST Medication Therapy Disease Management - Anticoagulation Patient: Patrick Carmen | : 1935 Subjective Contacts Type Contact Phone/Fax 12/02/2023 04:15 PM EST Phone (Outgoing) JODY CARMEN (Emergency Contact) [phone] Patient-Reported Symptoms: Patient Findings Positives: Upcoming invasive [...] PM * Telephone Encounter - Poppy Santiago aerospace project manager - 12/02/2023 2:31 PM EST Caller's name: jody Preferred call back number(OFFICE NUMBER FOR ): [phone] Reason for call: spouse calling in to see if he is ok to be placed on schedule has to know today. Thank you, Poppy Santiago County Court Judge [facility] ([facility]) (Formerly Telepharmacy) 12/02/2023,2:31 PM * Telephone Encounter - Kristie Ricks PHARM Tech - 12/02/2023 12:04 PM EST Caller's name: Jody Preferred call back number(OFFICE NUMBER FOR ): [phone] Reason for call: the doctor would like to do a blepharoplasty on Saturday if we can get the INR down around 2.0, please call Jody back today after 1pm, thank you. Kristie Ricks MA Necktie Maker I [facility] ([facility]) (formerly Telepharmacy) 58-60 [facility] 38-38 [place] [address] ext [phone] documented in this encounter Plan of Treatment Upcoming Encounters Date Type Department Care Team (Late st Contact Info) Description 12/05/2023 6:30 AM EST Anticoagulation Pharmacy Call Center 58-60 [facility] [place] [address] [facility] 58 60 [facility] [place] [address] 12/06/2023 11:00 AM EST Office Visit Ophthalmology, [address] [place] [address] Pablo Casanova, DO 16 [place] [address] 12/11/2023 10:30 AM EST Laboratory Laboratory [address] [place] [phone] [address] [place] [address] 12/12/2023 11:00 AM EST Immunization/Injection Hematology/Oncology Treatment, [place] [address] [place] [address] Nurse, Med 4 [address] [facility] [address] 12/23/2023 9:30 AM EST Office Visit Ophthalmology, [address] [place] [address] Pablo Casanova, [address] [place] [address] 12/31/2023 1:00 PM EST Cardiac Studies Cardiology [address] [place] [address] [place], [facility] 132 [facility] [place] [address] 01/03/2024 10:30 AM EST Imaging Radiology [facility] [address] [place] [address] 01/06/2024 10:30 AM EST Laboratory Laboratory [address] [place] [phone] [address] [place] [address] 01/08/2024 10:00 AM EST Office Visit Hematology/Oncology [facility] [place] [address] [place] [address] Ludwig Louis MD [address] [place] [address] 02/11/2024 11:00 AM EDT Office Visit Family Medicine [address] [place] [phone] Bell Mcqueen MD [address] [place] [address] [place] [address] 08/10/2024 1:40 PM EDT Office Visit Rheumatology [address] [place] [phone] Win Nielsen MD [address] [place] [address] [place], [place] [address] Scheduled Procedures Name Priority Associated Diagnoses Date/Ti me ESOPHAGOGASTRODUODENOSCOPY ( EGD), FLEXIBLE, TRANSORAL, DIAGNOSTIC Recall Stark's esophagus with dysplasia Health Maintenance Due Date Last Done Comments Depression Screening 07/12/2021 07/12/2020 CKD PHOS USE SMARTSET 42848 08/21/20220 02/2021, 07/12/2020, 03/13/2019, Additional history exists *BISPHONATE OR OTHER ACCEPTABLE MEDICATION NEEDED FOR OSTEOPOROSIS (REFER TO SMARTSET #1146) 10/14/2023 Albumin/Creatinine Ratio 04/22/2024 023, 05/24/2022, 03/26/2022, Additional history exists TSH 10/08/2024 10/08/2023, 100 01/2023, 06/19/2023, Additional history exists CKD HGB USE SMARTSET 67200 11/27/202411/27, 11/27/2023, 11/20/2023, Additional history exists Stark's Esophagus Surveilance 02/26/2025 02/26/2022, 02/26/2022, 07/04/2021, Additional history exists DXA Scan 07/05/2025 07/05/2023, 10/19, 11/04/2018, Additional history exists DTaP,Tdap,and Td Vaccines (2 - Td or Tdap) 08/19/2027 08/19/2017, 08/20/2008 Pneumococcal Vaccine: 65+ Years Completed 06/23/2015, 05/14/2013, 04/18/2004 Zoster Vaccines Completed 12/02/2020, 08/15/2020 VITAMIN D LEVEL ONCE IN A LIFETIME-USE SMARTSET# [id number] Completed 04/22/2023, 08/28/2021, 07/14/2015 Influenza Vaccine (FLU [...] this encounter Medical Devices Implanted Type Area Filter Press Tender Device Identifier Shelf Expiration Date Model / Serial / Lot Power Port 8fr Sngl Lumen Plas - [id number] Implanted:Qty: 1 on 02/22/2022 at [facility] CR BARD : PERIPHERAL VASCULAR [id number] 02/15/2023 [id number] / / [id number] documented as of this encounter Visit Diagnoses Diagnosis Hx of pulmonary embolus- Primary Personal history of pulmonary embolism Longstanding persistent atrial fibrillation (HCC) documented in this encounter Advance Directives Latest Code Status on File Code Status Date Activated Date Inactivated Comments Full Code 09/03/2007 7:29 AM 09/03/2007 4:02 PM Care Teams Central Office Operator Supervisor Relationship Specialty Start Date End Date uJancho Romero MD [address] [place] [address] [place] [address] PCP - General Family Medicine 12/27/16 documented as of this encounter"
--- OUTSIDE RECORDS SUMMARY | 2024-01-23 21:08 | External Medical Summary | Summary of Care ---
Author Name Unknown Organization [facility] Address [address] [place] [address] Phone [phone] Care Team Providers Care Tour Leader Name Role Phone Juancho Romero MD Primary Care Provider Reason for Visit * Reason Comments IV Therapy Venofer. Encounter Details Date Type Department Care Team (Latest Contact Info) Description 11/29/2023 9:15 AM EST Hem/Onc Treatment Hematology/Oncology Treatment, [address] [address] [place], Chair 10 Hem Onc [address] [address] Anemia of chronic disease*; Carcinoma of bladder (HCC); H/O mitral valve repair; Chronic kidney disease, stage 3b (HCC) Allergies Active Allergy Reactions Criticality Noted Date Comments Penicillins Other (Please comment),Rash High Eyes swell Pollen 05/03/2022 Wound Dressing Adhesive Rash 05/02/2023 Patient reported documented as of this encounter (statuses as of 11/29/2023) Medications Medication Sig Dispensed Refills Start Date [...] albuterol 120 mL 5 11/21/2022 Active Ipratropium [place] 0.02 % Inhalation Solution (Atrovent)Indicatio ns:Moderate persistent [...] Respimat 2.5 MCG/ACT Inhalation Aerosol Solution (Tiotropium [place] Monohydrate)Indicat ions:Moderate persistent asthma without complication INHALE 2 PUFFS BY MOUTH EVERY DAY 12 g 3 04/30/2023 Active Rosuvastatin Calcium 10 MG Oral Tablet (Crestor) TAKE 1 TABLET BY MOUTH EVERY DAY 90 Tablet 1 05/27/2023 Active Warfarin Sodium 5 MG Oral Tablet (Coumadin)Indicatio ns:Pulmonary embolism and infarction (HCC) Take 0.5-1 Tablets by mouth every evening. Or take as instructed by the [facility] 90 Tablet 3 [...] as of this encounter (statuses as of 11/29/2023) Active Problems Problem Noted Date Diagnosed Date [...] rinse after steroid. Test performed by Sameer COUNCILOR CPFT Pleural plaque due to asbestos exposure Restrictive lung disease Overview: In Check dial performed to assess inhaler technique: 12/15/19 Name of inhalers Albuterol Pass: Yes at 60 L/min and Advair Pass: Yes at 60 L/min. Encouraged to to take deep breath, use aero chamber, and rinse after steroid. 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 current use of ant icoagulant therapy [...] as of this encounter (statuses as of 11/29/2023) Immunizations Name Administration Dates Next Due COVID-19 mRNA, LNP-s, No Pre serve, 2-Dose Series ([facility]) 12/01/2021,01/16/2021,12/26/2020 COVID-19, LNP-s, No Preserve , Ozzy-sucrose, Ages 12+ ([facility]) 12/01/2021 COVID-19, MRNA-LNP, 23-24, P F, 30 MCG/0.3 mL, 12 YRS AND ABOVE, IM ([facility]) 09/18/2023 Covid-19, Mrna, Lnp-s, Pf, B ivalent, 30 Mcg, IM, 12 yrs and above ([facility]) 10/09/2022 Pneumococcal Conjugate Vacc, 13 Valent (Prevnar) [...] [facility] [place] [address] [facility], [facility] [address] [facility] [place] [address] 12/11/2023 10:30 AM EST Laboratory Laboratory [address] [place] [phone] [address] [place] [address] 12/12/2023 11:00 AM EST Immunization/Injection Hematology/Oncology Treatment, [place] [address] [place] [address] Nurse, Med [address] [place] [address] 12/31/2023 1:00 PM EST Cardiac Studies Cardiology [address] [place] [address] [place], Pacer Clinic [facility] [address] [facility] [place] [address] 01/03/2024 10:30 AM EST Imaging Radiology [facility], [place] [address] [facility] [place] [address] 01/06/2024 10:30 AM EST Laboratory Laboratory [address] [place] [phone] [place] [address] 01/08/2024 10:00 AM EST Office Visit Hematology/Oncology [facility] [place] [address] [facility] [place] [address] Ludwig Louis MD [address] [place] [address] 02/11/2024 11:00 AM EDT Office Visit Family Medicine [address] [place] [phone] Bell Mcqueen MD [address] [place] [address] [place] [address] 08/10/2024 1:40 PM EDT Office Visit Rheumatology [address] [place] [phone] Win Nielsen MD [address] [place] [address] [place] [address] Scheduled Procedures Name Priority Associated Diagnoses Date/Ti me ESOPHAGOGASTRODUODENOSCOPY ( EGD), FLEXIBLE, TRANSORAL, DIAGNOSTIC Recall Stark's esophagus with dysplasia Health Maintenance Due Date Last Done Comments Depression Screening 07/12/2021 07/12/2020 CKD PHOS USE SMARTSET 21032 08/21/2022 100 02/2021, 07/12/2020, 03/13/2019, Additional history exists *BISPHONATE OR OTHER ACCEPTABLE MEDICATION NEEDED FOR OSTEOPOROSIS (REFER TO SMARTSET #1146) 10/14/2023 Albumin/Creatinine Ratio 04/22/2024 023, 05/24/2022, 03/26/2022, Additional history exists TSH 10/08/2024 10/08/2023, 100 01/2023, 06/19/2023, Additional history exists CKD HGB USE SMARTSET 87085 11/27/202411/27, 11/27/2023, 11/20/2023, Additional history exists Stark's Esophagus Surveilance 02/26/2025 02/26/2022, 02/26/2022, 07/04/2021, Additional history exists DXA Scan 07/05/2025 07/05/2023, 10/19, 11/04/2018, Additional history exists DTaP,Tdap,and Td Vaccines (2 - Td or Tdap) 08/19/2027 08/19/2017, 08/20/2008 Pneumococcal Vaccine: 65+ Years Completed 06/23/2015, 05/14/2013, 04/18/2004 Zoster Vaccines Completed 12/02/2020, 08/15/2020 VITAMIN D LEVEL ONCE IN A LIFETIME-USE SMARTSET# [id number] Completed 04/22/2023, 08/28/2021, 07/14/2015 Influenza Vaccine (FLU [...] this encounter Medical Devices Implanted Type Area Cosmetics Machine Operator Device Identifier Shelf Expiration Date Model / Serial / Lot Power Port 8fr Sngl Lumen Plas - [id number] Implanted:Qty: 1 on 02/22/2022 at [facility] : PERIPHERAL VASCULAR [id number] 02/15/2023 [id number] / / [id number] documented as of this encounter Visit Diagnoses [...] MAR Action Action Date Dose Rate Site diphenhydrAMINE (Benadryl) inj 50 mg 50 mg, IV Push, ONCE PRN Other, Hypersensitivity Reaction, Starting on Sat11/29/23 at 0919, Until 11/30/23 at 0918, For 24 hours EPINEPHrine 1 MG/ML inj 0.3 mg 0.3 mg, Intramuscular, ONCE PRN Other, Hypersensitivity Reaction or Anaphylaxis, Starting on Sat11/29/23 at 0919, Until 11/30/23 at 0918, For 24 hours hEParin 100 UNIT/ML Lock Flush inj 500 Units 500 Units (5 mL), IV Lock, PRN Other, IV Flush, Starting on Sat11/29/23 at 09, Until 11/30/23 at 09, For 24 hours, Do not flush if lock, PICC, or central line not in place; IV infusing or unable to flush. Given 11/29/2023 11:01 AM EST 500 Units Hydrocortisone Sod Suc (PF) (Solu-Cortef) inj 100 mg 100 mg, IV Push, ONCE PRN Other, Hypersensitivity Reaction, Starting on Sat11/29/23 at 0919, Until 11/30/23 at 0918, For 24 hours NSS infusion 500 mL, Intravenous, at 50 mL/hr, CONTINUOUS, Starting on Sat11/29/23 at 1030, Until Sat11/29/23 at 2028 Start Infusion 11/29/2023 9:29 AM EST 500 mL 50 mL/hr oxygen GAS Inhalation, OXYGEN, First dose on Sat11/29/23 at 1000, Until Discontinued, Device/Managed by: Low Flow Device, Goal SPO2 (%): 91-95, Starting Device: Nasal Cannula, Initial Flow Rate (LPM): 2, Lowest Support: Nasal Cannula: Flow 0-6 LPM. Titrate up/down by 1 LPM., Higher Support: Non-Rebreather (NRB) Mask: Minimum of 10 LPM. Titrate to maintain bag inflation., Titration Interval: Q2 minutes and as needed., Notify Provider: For sudden DECREASE in resting SPO2 to less than 85% and when escalating delivery device., Wean patient off Oxygen when the oxygen saturation is greater than or equal to 93% sodium chloride 0.9 % flush central line 10 mL 10 mL, IV Push, PRN Other, IV Flush, Starting on Sat11/29/23 at 0919, Until 11/30/23 at 0918, For 24 hours, Do not flush if lock, PICC, or central line not in place; IV infusing or unable to flush. Given 11/29/2023 11:01 AM EST 10 mL Inactive Administered Medications - up to 3 most recent administrations Medication Order MAR Action Action Date Dose Rate Site Iron Sucrose (Venofer) 300 mg in NSS 250 mL ivpb 300 mg, IV Piggyback, ONCE, 1 dose, On Sat11/29/23 at 1100, Administer over 90 Minutes Start Infusion 11/29/2023 9:30 AM EST 300 mg 166.67 mL/hr documented in this encounter Advance Directives Latest Code Status on File Code Status Date Activated Date Inactivated Comments Full Code 09/03/2007 7:29 AM 09/03/2007 4:02 PM Care Teams Tour Leader Relationship Specialty Start Date End Date Juancho Romero MD [address] [place] [address] [place] [address] PCP - General Family Medicine 12/27/16 documented as of this encounter
--- OUTSIDE RECORDS SUMMARY | 2024-01-23 21:08 | External Medical Summary | Summary of Care ---
Author Name Unknown Organization [facility] Address [address] [place] [address] Phone [phone] Care Team Providers Care Insurance Examining Clerk Name Role Phone Katina Rivas MD Primary Care Provider Reason for Referral * Precert (Within 10 days (routine)) - Pending Review Specialty Diagnoses / Procedures Referred By Contac t Referred To Contact Cardiac Studies Diagnoses Need for prophylactic vaccination and inoculation against influenza S/P AVR (aortic valve replacement) Acute on chronic diastolic congestive heart failure (HCC) Nonrheumatic mitral valve stenosis Procedures ECHO, COMPLETE (2D), TRANS-THORACIC Andres Rainey MD [address] [place] [address] Referral ID Status Reason Start Date Expiration Date Visits Requested Visits Authorized [id number] Pending Review Precert 10/05/2022 999 999 Reason for Visit * Reason Onset Date Comments Follow Up Medication Administration 09/04/2022 Flu an d/or Pneumo Inj Encounter Details Date Type Department Care Team (Late st Contact Info) Description 09/04/2022 11:30 AM EDT Office Visit Cardiology [address] [place] [address] Andres Rainey MD [address] [place] [phone] Acute on chronic diastolic congestive heart failure (HCC)*; Need for prophylactic vaccination and inoculation against influenza; S/P AVR (aortic valve replacement); Nonrheumatic mitral valve stenosis Allergies Active Allergy Reactions Criticality Noted Date Comments Penicillins Other (Please comment),Rash High Eyes swell Pollen 05/03/2022 documented as of this encounter (statuses as of 11/28/2023) Medications Medication Sig Dispensed Refills Start Date End Date Status CO Q10 100 MG PO TABS 1 tab once daily 0 Active ZOVIRAX 5 % EX OINT 5 times daily as needed. 0 Active Polyethylene Glycol 3350 17 GM Oral Packet Take 1 Packet by mouth in the morning. 14 Each 0 05/08/20 16 Active Clindamycin HCl 300 MG Capsule Prior to dental appt 0 08/01/20 16 Active Albuterol Sulfate (PROAIR HFA) 108 (90 Base) MCG/ACT AERSIndications:Mo derate persistent asthma with exacerbation Inhale 2 Puffs by mouth every 4 hours as needed for Wheezing. 1 Inhaler 3 10/20/20 19 Active Sucralfate 1 GM/10ML Oral Suspension (Carafate) Take 10 mL by mouth 4 times a day. 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 0 Active Vitamin D 25 MCG (1000 UT) Oral Tablet Take 1 Tablet by mouth in the morning. 0 Active Tamsulosin HCl 0.4 MG Oral Capsule (Flomax) TAKE 1 CAPSULE BY MOUTH AT BEDTIME 0 01/11/20 22 Active cetirizine (ZYRTEC) 10 MG Tablet Take 1 Tablet by mouth in the morning. 5 08/20/20 17 023 Discontinued Montelukast Sodium 10 MG Oral Tablet (Singulair)Indicat ions:Restrictive lung disease TAKE 1 TABLET BY MOUTH EVERYDAY AT BEDTIME 90 Tablet 3 10/16/20 21 023 Discontinued hydroCHLOROthiazid e 25 MG Oral Tablet (Hydrodiuril) TAKE 1 TABLET BY MOUTH 1-2 DAYS PER WEEK 15 Tablet 3 12/07/19 22 022 Discontinued predniSONE 5 MG Oral Tablet (Deltasone) one pill each day 90 Tablet 4 12/11/19 22 023 Discontinued Risedronate Sodium 150 MG Oral Tablet (Actonel) Take 1 Tablet by mouth every 30 days. 3 Tablet 4 12/11/19 22 023 Discontinued Enoxaparin Sodium 80 MG/0.8ML Subcutaneous Solution (Lovenox) Inject under the skin 70 mg in the morning AND 70 mg before bedtime. As directed by anticoagulation clinic. 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 120 mL 0 03/23/20 22 023 Discontinued Ipratropium Henderson 0.02 % Inhalation Solution (Atrovent)Indicati ons:Moderate persistent asthma without complication Inhale via nebulizer 2.5 mL in the morning AND 2.5 mL at noon AND 2.5 mL in the evening AND 2.5 mL before bedtime. Mix with albuterol solution. 75 mL 12 03/29/20 22 023 Discontinued(R efill) Albuterol Sulfate (2.5 MG/3ML) 0.083% Inhalation Nebulization Solution (Proventil)Indicat ions:Moderate persistent asthma without complication Inhale via nebulizer 1 Vial every 6 hours as needed for Wheezing. Mix with albuterol 120 mL 5 03/29/20 22 023 Discontinued(R efill) Spiriva Respimat 2.5 MCG/ACT Inhalation Aerosol Solution (Tiotropium Henderson Monohydrate) INHALE 2 PUFFS BY MOUTH EVERY DAY 12 g 3 04/17/20 22 023 Discontinued(R efill) Ferrous Sulfate 325 (65 Fe) MG Oral Tablet (Feosol)Indication s:Iron deficiency anemia secondary to blood loss (chronic) TAKE ONE TABLET BY MOUTH WITH FOOD DAILY 90 Tablet 1 07/09/20 22 023 Discontinued Warfarin Sodium 5 MG Oral Tablet (Coumadin)Indicati ons:Pulmonary embolism and infarction (HCC) TAKE 1/2-1 TAB BY MOUTH DAILY. TAKE DIRECTED BY ANTI-COAGULATION PHARMACIST 90 Tablet 1 07/24/20 22 023 Discontinued Levothyroxine Sodium 100 MCG Oral Tablet (Levoxyl)Indicatio ns:Carcinoma of bladder (HCC) Take by mouth 1 Tablet in the morning. (at least 30 min prior to breakfast or other meds). 30 Tablet 5 07/30/20 22 022 Discontinued(M edication/Dose Changed) Rosuvastatin Calcium 10 MG Oral Tablet (Crestor) TAKE 1 TABLET BY MOUTH EVERY DAY 90 Tablet 2 08/13/20 22 023 Discontinued Doxycycline Hyclate 100 MG Oral Capsule Take by mouth 1 Capsule in the morning AND 1 Capsule before bedtime. Do all this for 10 days. Until gone.. 20 Capsule 0 08/28/20 22 022 Furosemide 20 MG Oral Tablet (Lasix) Take by mouth 1 Tablet in the morning. 30 Tablet 5 09/04/20 22 022 Discontinued(R efill) Hospital, Clinic, or Other Facility Administered Medication Ordered Dose Route Frequency Start Date End Date Status albuterol sulfate (PROVENTIL) (2.5 MG/3ML) 0.083% inhalation solution 2.5 mgIndications:ROMERO (dyspnea on exertion),Moderate persistent asthma without complication 2.5 mg NEBULIZER Q4H PRN 01/06/2018 12/25/2022 Discontinued albuterol sulfate (PROVENTIL) (2.5 MG/3ML) 0.083% inhalation solution 2.5 mgIndications:ROMERO (dyspnea on exertion),Moderate persistent asthma without complication 2.5 mg NEBULIZER Q4H PRN 12/31/2017 12/25/2022 Discontinued documented as of this encounter (statuses as of 11/28/2023) Active Problems Problem Noted Date Diagnosed Date Asbestosis 03/26/2022 Iron deficiency anemia 03/21/2022 Carcinoma [...] rinse after steroid. Test performed by Sameer BLACK LEATHER BUFFER CPFT Pleural plaque due to asbestos exposure Restrictive lung disease Overview: In Check dial performed to assess inhaler technique: 12/15/19 Name of inhalers Albuterol Pass: Yes at 60 L/min and Advair Pass: Yes at 60 L/min. Encouraged to to take deep breath, use aero chamber, and rinse after steroid. 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 of ant icoagulant therapy 05/30/2005 [...] as of this encounter (statuses as of 11/28/2023) Immunizations Name Administration Dates Next Due COVID-19 mRNA, LNP-s, No Pre serve, 2-Dose Series (BitMethod) 12/01/2021,01/16/2021,12/26/2020 COVID-19, LNP-s, No Preserve , Ozzy-sucrose, Ages 12+ (Pfizer) 12/01/2021 Pneumococcal Conjugate Vacc, 13 Valent (Prevnar) 06/23/2015 Pneumococcal Polysaccharide PPV23 (Pneumovax) 05/14/2013,04/18/2004 Seasonal Influenza, PF, 6 M & above, IM , (FluLaval or Fluzone) 09/29/2018 Seasonal Influenza, Quadriva lent Hd (Fluzone Hd) 08/17/2021 Seasonal Influenza, Quadriva lent, No Preserve, IM [...] drink = 0.6 oz pur e alcohol) occasional beer if that PHQ-2 Answer Date Recorded PHQ-2 Score 0 [...] Sign Reading Time Taken Comments Blood Pressure 114/62 09/04/2022 11:39 AM EDT Pulse 78 09/04/2022 11:39 AM EDT Temperature 36.7 C (98 F) 09/04/2022 11:39 AM EDT Respiratory Rate 18 09/04/2022 11:39 AM EDT Oxygen Saturation - - Inhaled Oxygen Concentration - - Weight 73.2 kg (161 lb 6.4 oz) 09/04/2022 11:39 AM EDT Height - - Body Mass Index 26.86 07/18/2021 2:31 PM EDT documented in this encounter Patient Instructions * Patient Instructions* Ingris Barton LPN - 09/04/2022 11:44 AM EDT ~~PATIENT INSTRUCTIONS FOR FLU SHOT~~ Possible side effects of influenza vaccine, (flu shot), are usually mild and include: 1. Soreness or redness at injection site 2. Low grade fever 3. Body aches You may use Tylenol/Acetaminophen as needed for these symptoms. LET YOUR DOCTOR KNOW IMMEDIATELY IF YOU HAVE DIFFICULTY BREATHING OR SWALLOWING, EXPERIENCE ITCHINGOF FEET OR HANDS, HAVE SWELLING OF EYES, FACE OR INSIDE OF NOSE. documented in this encounter Progress Notes * Ingris Barton LPN - 09/04/2022 11:38 AM EDT * Andres Rainey MD - 09/04/2022 11:30 AM EDT September 04, 2022 Cardiology Follow Up Referring Provider: PCP: KATINA RIVAS [address] [place] [address] [place] [address] Chief Complaint: Valvular heart disease worsening shortness of breath edema SUBJECTIVE: Patrick Robles is a 87 year old year old male followed for history of 1. Valvular heart disease, status post aortic valve replacement and mitral valve repair, 2003, with [place] aortic valve bioprosthesis and 28 mm [place] mitral valve annular ring. 2. Persistent atrial fibrillation/flutter, status post flutter ablation in 2006 and December 2014with recurrence and now persistent atrial fibrillation flutter 3. Hypertension. 4. Hyperlipidemia. 5. Chronic arthritic disease, on low-dose prednisone suppression. 6. Complicated shoulder surgery, September 2014, with bleeding and subsequent hypercoagulable state with pulmonary embolus. 7. 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 8. Status post partial colectomy, 08/08/2015. 9. Tachybrady s/p single chamber pacemaker implant in 2016 10. Mild intrinsic prosthetic aortic valve stenosis, moderate mitral stenosis post surgical 11. Chronic anemia receiving iron infusions 12. Bladder carcinoma Patient presents today in clinical follow-up. He is accompanied by his who aids in history. Heis had difficulties with gradually worsening shortness of breath, lower extremity edema and orthopnea. Course was complicated by recent difficulties with persistent anemia as well as relative hypotension. He has been receiving iron infusion. Overall weight gain is greater than 10 lb he has difficulty with breathing when bending over with increasing abdominal girth. No sense of tachy palpitations.No fevers chills does have a low-grade cough worse when dependent. He has been using hydrochlorothiazide sparingly with minimal response . A Complete Review of Systems is as stated above or negative. Patient Active Problem List Diagnosis Code History of tobacco use Z87.891 S/P AVR (aortic valve replacement) Z95.2 DIVERTICULOSIS OF COLON K57.30 GENERAL OSTEOARTHROSIS M15.9 SBE (subacute bacterial endocarditis) prophylaxis candidate Z29.8 ADVANCE DIRECTIVE INFORMATION BPH without obstruction/lower urinary tract symptoms N40.0 Paroxysmal SVT (supraventricular tachycardia) (HCC) I47.1 Spinal stenosis of lumbar region without neurogenic claudication M48.061 Herniated nucleus pulposus, L4-5 right M51.26 Asymptomatic bilateral carotid artery stenosis I65.23 Hypertensive heart disease without heart failure I11.9 Restless leg syndrome G25.81 Dyslipidemia, goal LDL below 70 E78.5 Hiatal hernia K44.9 Cholelithiases K80.20 Left ventricular diastolic dysfunction, NYHA class 1 I51.89 Atrial fibrillation (HCC) I48.91 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 Actinic keratosis L57.0 Senile osteoporosis M81.0 H/O mitral valve repair Z98.890 Cardiac pacemaker in situ Z95.0 Moderate persistent asthma without complication J45.40 Pleural plaque due to asbestos exposure J92.0 Restrictive lung disease J98.4 Hx of pulmonary embolus Z86.711 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 K22.70 ROMERO (dyspnea on exertion) R06.09 Long-segment Stark's esophagus K22.70 Hypertensive heart and kidney disease without heart failure and with stage 3a chronic kidney disease I13.10, N18.31 Chronic kidney disease, stage 3a (HCC) N18.31 Carcinoma of bladder (HCC) C67.9 Iron deficiency anemia D50.9 Asbestosis (HCC) J61 Pulmonary hypertension (HCC) I27.20 Review of patient's allergies indicates: Allergen Reactions Penicillins Other (Please comment) and Rash Eyes swell Pollen Current Outpatient Medications Medication Sig Dispense Refill CO Q10 100 MG PO TABS 1 tab once daily ZOVIRAX 5 % EX OINT 5 times daily as needed. polyethylene glycol 3350 (MIRALAX) packet Take 1 Packet by mouth daily. 14 Each 0 cetirizine (ZYRTEC) 10 MG Tablet Take 10 mg by mouth daily. 5 Albuterol Sulfate (PROAIR HFA) 108 (90 Base) MCG/ACT AERS Inhale 2 Puffs by mouth every 4 hoursas needed for Wheezing. 1 Inhaler 3 Sucralfate 1 GM/10ML Oral Suspension (Carafate) Take 10 mL by mouth 4 times a day. (Patient taking differently: Take by mouth 1 g 4 times a day . Only when procedure is done ) 1260 mL 0 Vitamin B12 500 MCG Oral Tablet 2 tabs daily 180 Tab 1 Montelukast Sodium 10 MG Oral Tablet (Singulair) TAKE 1 TABLET BY MOUTH EVERYDAY AT BEDTIME 90 Tablet 3 One-A-Day Mens 50+ Advantage Oral Tablet Take 1 Tablet by mouth daily. Vitamin D 25 MCG (1000 UT) Oral Tablet Take 1 Tablet by mouth daily. hydroCHLOROthiazide 25 MG Oral Tablet (Hydrodiuril) TAKE 1 TABLET BY MOUTH 1-2 DAYS PER WEEK 15Tablet 3 predniSONE 5 MG Oral Tablet (Deltasone) one pill each day 90 Tablet 4 Risedronate Sodium 150 MG Oral Tablet (Actonel) Take 1 Tablet by mouth every 30 days. 3 Tablet 4 Enoxaparin Sodium 80 MG/0.8ML Subcutaneous Solution (Lovenox) Inject under the skin 70 mg in the morning AND 70 mg before bedtime. As directed by anticoagulation clinic. (Patient taking differently: Inject under the skin 70 mg every 12 hours . As directed by anticoagulation clinic, only when procedure is done ) 8 mL 0 Pramipexole Dihydrochloride 1 MG Oral Tablet (Mirapex) TAKE 1 TABLET BY MOUTH EVERYDAY AT BEDTIME 90 Tablet 2 Esomeprazole Magnesium 40 MG Oral Capsule Delayed Release TAKE 1 CAPSULE BY MOUTH TWICE A DAY 180 Capsule 1 Promethazine-Codeine 6.25-10 MG/5ML Oral Syrup Take by mouth 5 mL as needed in the morning AND 5 mL as needed at noon AND 5 mL as needed in the evening AND 5 mL as needed before bedtime for Cough. 120 mL 0 Ipratropium Henderson 0.02 % Inhalation Solution (Atrovent) Inhale via nebulizer 2.5 mL in the morning AND 2.5 mL at noon AND 2.5 mL in the evening AND 2.5 mL before bedtime. Mix with albuterol solution. (Patient taking differently: Inhale via nebulizer 500 mcg as needed . Mix with albuterol solution ) 75 mL 12 Albuterol Sulfate (2.5 MG/3ML) 0.083% Inhalation Nebulization Solution (Proventil) Inhale via nebulizer 1 Vial every 6 hours as needed for Wheezing. Mix with albuterol 120 mL 5 Spiriva Respimat 2.5 MCG/ACT Inhalation Aerosol Solution (Tiotropium Henderson Monohydrate) INHALE 2 PUFFS BY MOUTH EVERY DAY 12 g 3 Tamsulosin HCl 0.4 MG Oral Capsule (Flomax) TAKE 1 CAPSULE BY MOUTH AT BEDTIME Ferrous Sulfate 325 (65 Fe) MG Oral Tablet (Feosol) TAKE ONE TABLET BY MOUTH WITH FOOD DAILY 90Tablet 1 Warfarin Sodium 5 MG Oral Tablet (Coumadin) TAKE 1/2-1 TAB BY MOUTH DAILY. TAKE DIRECTED BY ANTI-COAGULATION PHARMACIST 90 Tablet 1 Levothyroxine Sodium 100 MCG Oral Tablet (Levoxyl) Take by mouth 1 Tablet in the morning. (at least 30 min prior to breakfast or other meds). 30 Tablet 5 Rosuvastatin Calcium 10 MG Oral Tablet (Crestor) TAKE 1 TABLET BY MOUTH EVERY DAY 90 Tablet 2 Doxycycline Hyclate 100 MG Oral Capsule Take by mouth 1 Capsule in the morning AND 1 Capsule before bedtime. Do all this for 10 days. Until gone.. 20 Capsule 0 Clindamycin HCl 300 MG Capsule Prior to dental appt (Patient not taking: Reported on 09/04/2022 ) 0 Current Facility-Administered Medications Medication Dose Route Frequency Provider Last Rate Last Admin albuterol sulfate (PROVENTIL) (2.5 MG/3ML) 0.083% inhalation solution 2.5 mg 2.5 mg Nebulizer Q4H PRN JASON Mancera 2.5 mg at 12/15/19 1106 albuterol sulfate (PROVENTIL) (2.5 MG/3ML) 0.083% inhalation solution 2.5 mg 2.5 mg Nebulizer Q4H PRN Henrik Valera DO OBJECTIVE/PHYSICAL EXAMINATION: BP 114/62 | Pulse 78 | Temp 36.7 C (98 F) | Resp 18 | Wt 73.2 kg (161 lb 6.4 oz) | BMI 26.86 kg/m | BSA 1.83 m General: Moderate dyspnea at rest and minimal exertion Head: normocephalic, no masses, lesions, tenderness or abnormalities Eyes: conjunctiva are pink and non-injected, sclera clear Throat: clear Nares: without discharge Neck: supple, no adenopathy, no bruits, positive jugular venous distension with occasional rincon wave, no hepatojugular reflux, no carotid bruits Chest: normal shape and normal respiratory effort pacer site without irritation or tenderness Lungs: Mildly diminished breath sounds no rhonchi or wheeze Cardiac Exam: - regular rate & rhythm with paced rhythm, grade 2/6 systolic murmur, no diastolic murmur no S3 gallop gPulses: 2(+) throughout Abdomen: abdomen increased girth with mild distention, non-tender, no abnormal masses, no hepatosplenomegaly, no abdominal bruit, no femoral bruit Musculoskeletal: no gait disturbance, no joint inflammation, no deforming arthritis Extremities: 2 to 3 edema, no cyanosis, pulses intact 2+/4 Neuro: grossly normal exam Data: Echocardiogram March 08, 2022 The LV wall thickness is mildly increased (concentric). The qualitative LV ejection fraction is 55-59% (normal). The left atrium is severely enlarged (>48 ml/m^2,). There is an aortic valve bioprosthetic present. Aortic valve prosthesis stenosis is absent. The prosthetic leaflets appear freely mobile Mild intravalvular aortic regurgitation is present. There is evidence of prior mitral valve annuloplasty. There is evidence of prior mitral valve repair. Moderate mitral stenosis is present. Mild mitral regurgitation is present. Mild tricuspid regurgitation is present. Moderate pulmonary hypertension is present. Pacemaker interrogation March 14, 2022 : Normal device function with 77 % ventricular paced rhythm,estimated battery life 7 years ASSESSMENT: 87 year old year old male complex history of remote aortic valve replacement and mitral valve repair, chronic atrial fibrillation. At baseline patient has [id number] increased aortic valve velocities secondary to age in size prosthesis as well as at least moderate mitral stenosis. He presents now with signs and symptoms of acute on chronic decompensated right heart failure likely multifactorial including secondary to anemia, iron infusions and reduced diuretic usage.. PLAN: Discussed options of management patient and . He is reluctant to consider inpatient management at this time, will give trial of oral diuretics Given relatively low blood pressures will begin with furosemide 40 mg p.o. today then 20 mg daily over the next week. BMP ordered in 1 week Patient to perform daily weights and restrict all activities until improved If symptoms do not promptly improve, diuresis manifest patient will warrant inpatient management possible transfusion. Patient and fully aware and will monitor closely keep office informed Unless prompt response to therapies would hold this weeks iron infusion Plan on repeating echocardiogram now 6 months since last study reassess valvular structures I spent a total of 40-54 minutes (exact time 50 mins) on the date of service in preparation, delivery, and documentation of the care provided to Patrick Robles excluding any time spent in the performance of separately billed services. DISPOSITION: Follow-up 1 to 2 weeks Andres Rainey MD [facility], [place] [address] documented in this encounter Nursing Notes * Ingris Barton LPN - 09/04/2022 11:34 AM EDT Examination Room: 5 Name: Patrick Robles Date of : (1935) Reason for Visit: follow up visit Interim Hospitalization(s): deneis Problems/Concerns: intermittent pitting edema in bilateral legs, sometimes extending up the the knee. Edema more specific to the right leg. Exertional SOB, increased slightly. Chest Pain/SOB: denies chest pain at this time [facility] is a way you can talk to your provider online through e-mail. Would you like to sign up? I can activate it for you? ALREADY ACTIVE Patient was instructed to not get up on the exam table until directed and assisted by their provider; patient is to remain seated in the chair/ wheelchair/ exam table for fall prevention and safety reasons. Patient is aware to have assistance to step down off exam table with personnel. Patient voiced full comprehension of instructions. documented in this encounter Plan of Treatment Upcoming Encounters Date Type Department Care Team (Late st Contact Info) Description 11/29/2023 9:15 AM EST Hem/Onc Treatment Hematology/Oncology Treatment, [address] [place] [address] [place], Chair 10 Hem Onc [address] [place] [address] 12/05/2023 6:30 AM EST Anticoagulation Pharmacy Call Center [phone] [place] [address] [facility] 58 [address] [facility] [place] [address] 12/11/2023 10:30 AM EST Laboratory Laboratory [address] [place] [phone] [place] [address] 12/12/2023 11:00 AM EST Immunization/Injection Hematology/Oncology Treatment, [address] [place] [address] Nurse, Med [address] [place] [address] [place] [address] 12/31/2023 1:00 PM EST Cardiac Studies Cardiology [address] [place] [address] Og Frazier [address] [place] [address] 01/03/2024 10:30 AM EST Imaging Radiology [address] [place] [address] 01/06/2024 10:30 AM EST Laboratory Laboratory [address] [place] [phone] [address] [place] [address] 01/08/2024 10:00 AM EST Office Visit Hematology/Oncology [facility] [address] [place] [address] Ludwig Louis MD [address] [place] [address] 02/11/2024 11:00 AM EDT Office Visit Family Medicine [address] [place] [phone] Bell Mcqueen MD [address] [place] [address] [place] [address] 08/10/2024 1:40 PM EDT Office Visit Rheumatology [address] [place] [phone] Win Nielsen MD [address] [place] [address] [place] [address] Scheduled Orders Name Type Priority Associated Diagnoses Orde r Schedule ECHO, COMPLETE (2D), TRANS-THORACIC Echocardiology Routine Need for prophylactic vaccination and inoculation against influenza S/P AVR (aortic valve replacement) Acute on chronic diastolic congestive heart failure (HCC) Nonrheumatic mitral valve stenosis Expected: 10/05/2022 (Approximate), Expires: 10/05/2024 Scheduled Procedures Name Priority Associated Diagnoses Date/Ti me ESOPHAGOGASTRODUODENOSCOPY ( EGD), FLEXIBLE, TRANSORAL, DIAGNOSTIC Recall Stark's esophagus with dysplasia Health Maintenance Due Date Last Done Comments Depression Screening 07/12/2021 07/12/2020 CKD PHOS USE SMARTSET 82346 08/21/2022 100 02/2021, 07/12/2020, 03/13/2019, Additional history exists *BISPHONATE OR OTHER ACCEPTABLE MEDICATION NEEDED FOR OSTEOPOROSIS (REFER TO SMARTSET #1146) 10/14/2023 Albumin/Creatinine Ratio 04/22/2024 023, 05/24/2022, 03/26/2022, Additional history exists TSH 10/08/2024 10/08/2023, 100 01/2023, 06/19/2023, Additional history exists CKD HGB USE SMARTSET 54612 11/27/202411/27, 11/27/2023, 11/20/2023, Additional history exists Stark's Esophagus Surveilance 02/26/2025 02/26/2022, 02/26/2022, 07/04/2021, Additional history exists DXA Scan 07/05/2025 07/05/2023, 10/19, 11/04/2018, Additional history exists DTaP,Tdap,and Td Vaccines (2 - Td or Tdap) 08/19/2027 08/19/2017, 08/20/2008 Pneumococcal Vaccine: 65+ Years Completed 06/23/2015, 05/14/2013, 04/18/2004 Zoster Vaccines Completed 12/02/2020, 08/15/2020 VITAMIN D LEVEL ONCE IN A LIFETIME-USE SMARTSET# [id number] Completed 04/22/2023, 08/28/2021, 07/14/2015 Influenza Vaccine (FLU [...] this encounter Medical Devices Implanted Type Area Sheet Music Salesperson Device Identifier Shelf Expiration Date Model / Serial / Lot Power Port 8fr Sngl Lumen Plas - [id number] Implanted:Qty: 1 on 02/22/2022 at [facility] : PERIPHERAL VASCULAR [id number] 02/15/2023 [id number] / / [id number] documented as of this encounter Visit Diagnoses Diagnosis Acute on chronic diastolic congestive heart failure (HCC)- Primary Acute on chronic diastolic heart failure Need for prophylactic vaccination and inoculation against influenza S/P AVR (aortic valve replacement) Heart valve replaced by other means Nonrheumatic mitral valve stenosis documented in this encounter Advance Directives Latest Code Status on File Code Status Date Activated Date Inactivated Comments Full Code 09/03/2007 7:29 AM 09/03/2007 4:02 PM Care Teams Insurance Examining Clerk Relationship Specialty Start Date End Date Katina Rivas MD [address] [place] [address] [place] [address] PCP - General Family Medicine 12/27/16 documented as of this encounter"
--- OUTSIDE RECORDS SUMMARY | 2024-01-23 21:08 | External Medical Summary | Summary of Care ---
Author Name Unknown Organization [facility] Address [address] [place] [address] Phone [phone] Care Team Providers Care Payroll Assistant Name Role Phone Juancho Romero MD Primary Care Provider Encounter Details Date Type Department Care Team (Late st Contact Info) Description 07/15/2023 Orders Only Hematology/Oncology Treatment, [place] DEPT CLOSED - 10/01/23 [address] [place] [address] Ludwig Louis MD [address] [place] [address] Carcinoma of bladder (HCC)*; Chronic kidney disease, stage 3a (HCC); Encounter [...] Sulfate (PROAIR HFA) 108 (90 Base) MCG/ACT AERSIndications:Moder ate persistent asthma with exacerbation Inhale 2 Puffs by mouth every 4 hours as needed for Wheezing. 1 Inhaler 3 10/20/2019 Active Sucralfate 1 GM/10ML Oral Suspension (Carafate) Take 10 mL by mouth 4 times a day. 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 Mix with albuterol 120 mL 5 11/21/2022 Active Ipratropium [place] 0.02 % Inhalation Solution (Atrovent)Indications :Moderate persistent asthma without complication Inhale 2.5 mL via nebulizer in the morning and 2.5 mL at noon and 2.5 mL in the evening and 2.5 mL before bedtime. Mix with albuterol solution. 75 mL 12 11/21/2022 Active predniSONE 5 MG Oral Tablet (Deltasone) TAKE 1 TABLET BY MOUTH EVERY DAY 90 Tablet 3 12/18/2022 Active traMADol HCl 50 MG Oral Tablet (Ultram)Indications:S se stenosis of lumbar region without neurogenic claudication Take 1 Tablet by mouth every 6 hours as needed for Pain, Severe. 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 Test performed by Sameer TRAINING MGR CPFT Pleural plaque due to asbestos exposure Restrictive lung disease Overview: In Check dial performed to assess inhaler technique: 12/15/19 Name of inhalers Albuterol Pass: Yes at 60 L/min and Advair Pass: Yes at 60 L/min. Encouraged to to take deep breath, use aero chamber, and rinse after steroid. Test performed by Sameer TRAINING MGR CPFT Hx of pulmonary embolus 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 Overview: [place] C0-M6 documented as of this encounter (statuses [...] Malignant neoplasm of prostate 09/23/2008 03/27/2018 Overview: [place] grade 3 Atrial flutter 09/02/2007 10/16/2007 Herpes simplex virus infection 08/22/2005 04/05/2016 Anal fissure 06/04/2005 10/16/2007 supervisor shrimp pond current use of ant icoagulant therapy 05/30/2005 10/16/2007 Overview: ICD-10 update of inactive term Atrial fibrillation 11/22/2004 11/29/20 07 Hypertensive heart disease 11/22/2004 1 Overview: [...] mRNA, LNP-s, No Pre serve, 2-Dose Series (Clinicbook) 12/01/2021,01/16/2021,12/26/2020 COVID-19, LNP-s, No Preserve , Ozzy-sucrose, Ages 12+ (Clinicbook) 12/01/2021 Covid-19, Mrna, Lnp-s, Pf, B ivalent, 30 Mcg, IM, 12 yrs and above (Clinicbook) 10/09/2022 Pneumococcal Conjugate Vacc, 13 Valent (Prevnar) 06/23/2015 Pneumococcal Polysaccharide PPV23 (Pneumovax) 05/14/2013 Seasonal Influenza, PF, 6 M & above, IM , (FluLaval or Fluzone) 09/29/2018 Seasonal Influenza, Quadriva lent Hd (Fluzone Hd) 10/09/2022,08/17/2021 Seasonal Influenza, Quadriva lent, No Preserve, IM [...] 9:15 AM EST Hem/Onc Treatment Hematology/Oncology Treatment, [place] [address] [place] [address] Marylou, Chair 10 Hem Onc Scenery [address] [place] [address] 12/05/2023 6:30 AM EST Anticoagulation Pharmacy Call Center [phone] [place] [address] [facility] [address] [place] [address] 12/11/2023 10:30 AM EST Laboratory Laboratory [address] [place] [phone] [place] [address] 12/12/2023 11:00 AM EST Immunization/Injection Hematology/Oncology Treatment, [place] 200 [facility] [place] [address] Nurse, Med 200 [facility] [place] [address] 12/31/2023 1:00 PM EST Cardiac Studies Cardiology [address] [place] [address] Freddie Pacer [facility] 132 [facility] [place] [address] 01/03/2024 10:30 AM EST Imaging Radiology [address], [place] [facility] [address] 01/06/2024 10:30 AM EST Laboratory Laboratory [address] [place] [phone] [place] [address] 01/08/2024 10:00 AM EST Office Visit Hematology/Oncology [facility] [address] [place] [address] Ludwig Louis MD [address] [place] [address] 02/11/2024 11:00 AM EDT Office Visit Family Medicine [address] [place] [phone] Bell Mcqueen MD [address] [place] [address] [place] [address] 08/10/2024 1:40 PM EDT Office Visit Rheumatology [address] [place] [phone] Win Nielsen MD [address] [facility] [place], [place] [address] Scheduled Orders Name Type Priority Associated Diagnoses Orde r Schedule COMPREHENSIVE METABOLIC PANEL Lab STAT Carcinoma of bladder (HCC) Chronic kidney disease, stage 3a (HCC) Encounter for antineoplastic immunotherapy Every 3 Months for 6 Occurrences starting 07/15/2023 until 08/12/2024, 2 completed FERRITIN Lab STAT Carcinoma of bladder (HCC) Chronic kidney disease, stage 3a (HCC) Encounter for antineoplastic immunotherapy Every 3 Months for 6 Occurrences starting 07/15/2023 until 08/12/2024, 2 completed VITAMIN B12 Lab STAT Carcinoma of bladder (HCC) Chronic kidney disease, stage 3a (HCC) Encounter for antineoplastic immunotherapy Every 3 Months for 6 Occurrences starting 07/15/2023 until 08/12/2024, 2 completed FOLIC ACID Lab STAT Carcinoma of bladder (HCC) Chronic kidney disease, stage 3a (HCC) Encounter for antineoplastic immunotherapy Every 3 Months for 6 Occurrences starting 07/15/2023 until 08/12/2024, 2 completed IRON SCREEN, INCLUDING TIBC Lab STAT Carcinoma of bladder (HCC) Chronic kidney disease, stage 3a (HCC) Encounter for antineoplastic immunotherapy Every 3 Months for 6 Occurrences starting 07/15/2023 until 08/12/2024, 2 completed Scheduled Procedures Name Priority Associated Diagnoses Date/Ti me ESOPHAGOGASTRODUODENOSCOPY ( EGD), FLEXIBLE, TRANSORAL, DIAGNOSTIC Recall Stark's esophagus with dysplasia Health Maintenance Due Date Last Done Comments Depression Screening 07/12/2021 07/12/2020 CKD PHOS USE SMARTSET 27549 08/21/2022 10/0 02/2021, 07/12/2020, 03/13/2019, Additional history exists *BISPHONATE OR OTHER ACCEPTABLE MEDICATION NEEDED FOR OSTEOPOROSIS (REFER TO SMARTSET #1146) 10/14/2023 Albumin/Creatinine Ratio 04/22/20242 023, 05/24/2022, 03/26/2022, Additional history exists TSH 10/08/2024 10/08/2023, 100 01/2023, 06/19/2023, Additional history exists CKD HGB USE SMARTSET 55595 11/27/202411/27, 11/27/2023, 11/20/2023, Additional history exists Stark's Esophagus Surveilance 02/26/2025 02/26/2022, 02/26/2022, 07/04/2021, Additional history exists DXA Scan 07/05/2025 07/05/2023, 10/19, 11/04/2018, Additional history exists DTaP,Tdap,and Td Vaccines (2 - Td or Tdap) 08/19/2027 08/19/2017, 08/20/2008 Pneumococcal Vaccine: 65+ Years Completed 06/23/2015, 05/14/2013, 04/18/2004 Zoster Vaccines Completed 12/02/2020, 08/15/2020 VITAMIN D LEVEL ONCE IN A LIFETIME-USE SMARTSET# [id number] Completed 04/22/2023, 08/28/2021, 07/14/2015 Influenza Vaccine (FLU [...] this encounter Medical Devices Implanted Type Area Communications Professor Device Identifier Shelf Expiration Date Model / Serial / Lot Power Port 8fr Sngl Lumen Plas - [id number] Implanted:Qty: 1 on 02/22/2022 at [facility] : PERIPHERAL VASCULAR [id number] 02/15/2023 [id number] / / [id number] documented as of this encounter Results * IRON SCREEN, INCLUDING TIBC (10/22/2023 10:51 AM EST) Iron 79 45 - 176 ug/dL 10/23/2023 4:58 AM EST [facility] Iron Binding Capacity 281 250 - 425 ug/dL 10/23/2023 4:58 AM EST [facility] Transferrin Saturation Percent 28 15 - 55 % 10/23/2023 4:58 AM EST [facility] Blood Venous blood specimen / Unknown Venipuncture / Unknown 10/22/2023 10:51 AM EST 10/22/2023 10:51 AM EST Ludwig Louis MD LAB BLOOD ORDERA BLES [facility] [address] [place] [address] * FOLIC ACID (10/22/2023 10:51 AM EST) Folic Acid 7.4 >4.5 ng/mL 10/23/2023 6:09 AM EST LAB[facility] Blood Venous blood specimen / Unknown Venipuncture / Unknown 10/22/2023 10:51 AM EST 10/22/2023 10:51 AM EST Ludwig Louis MD LAB BLOOD ORDERA BLES Performing Organization Address [facility] Co de Phone Number LABORATORY [facility] [address] [place] [address] * VITAMIN B12 (10/22/2023 10:51 AM EST) Vitamin B12 1,175 232 - 1,245 pg/mL 10/23/2023 6:09 AM EST LABORATORY C Blood Venous blood specimen / Unknown Venipuncture / Unknown 10/22/2023 10:51 AM EST 10/22/2023 10:51 AM EST Ludwig Louis MD LAB BLOOD ORDERA BLES Performing Organization Address City/[facility] Co de Phone Number LABORATORY [facility] [address] [place] [address] * FERRITIN (10/22/2023 10:51 AM EST) Ferritin 87 30 - 400 ng/mL 10/23/2023 6:09 AM EST LAB[facility] Blood Venous blood specimen / Unknown Venipuncture / Unknown 10/22/2023 10:51 AM EST 10/22/2023 10:51 AM EST Ludwig Louis MD LAB BLOOD ORDERA BLES LABORATORY [facility] [address] [place] [address] * (ABNORMAL) COMPREHENSIVE METABOLIC PANEL (10/22/2023 10:51 AM EST) BUN 27(H) 6 - 20 mg/dL 10/23/2023 4:58 AM EST [facility] Creatinine 1.5(H) 0.6 - 1.2 mg/dL 10/23/2023 4:58 AM EST LAB[facility] Estimated Glomerular Filtration Rate 44(L) >=60 mL/min 10/23/2023 4:58 AM EST [facility] Comment:eGFR is calculated b ased on the CKD-EPI 2020 equation Sodium 140 135 - 146 mmol/L 10/23/2023 4:58 AM EST LAB[facility] Potassium 4.6 3.5 - 5.1 mmol/L 10/23/2023 4:58 AM EST LAB[facility] Chloride 104 98 - 107 mmol/L 10/23/2023 4:58 AM EST [facility] CO2 25 22 - 32 mmol/L 10/23/2023 4:58 AM EST [facility] Anion Gap 11 7 - 15 mmol/L 10/23/2023 4:58 AM EST [facility] Glucose 118 70 - 120 mg/dL 10/23/2023 4:58 AM EST LAB[facility] Albumin 3.8 3.8 - 5.0 g/dL 10/23/2023 4:58 AM EST [facility] AST 20 10 - 50 U/L 10/23/2023 4:58 AM EST LAB[facility] Alkaline Phosphatase 73 35 - 130 U/L 10/23/2023 4:58 AM EST [facility] Bilirubin, Total 0.9 <=1.2 mg/dL 10/23/2023 4:58 AM EST LAB[facility] Calcium 9.0 8.4 - 10.2 mg/dL 10/23/2023 4:58 AM EST LAB[facility] Protein 5.8(L) 6.0 - 8.3 g/dL 10/23/2023 4:58 AM EST LAB[facility] ALT 12 10 - 50 U/L 10/23/2023 4:58 AM EST LAB[facility] Blood Venous blood specimen / Unknown Venipuncture / Unknown 10/22/2023 10:51 AM EST 10/22/2023 10:51 AM EST Ludwig Louis MD LAB BLOOD ORDERA BLES Performing Organization Address City/[facility]/ZIP Co de Phone Number LABORATORY [facility] [address] [place] [address] * (ABNORMAL) IRON SCREEN, INCLUDING TIBC (07/24/2023 10:59 AM EDT) Iron 33(L) 45 - 176 ug/dL 07/25/2023 12:55 AM EDT LAB[facility]ATORY [facility] Iron Binding Capacity 306 250 - 425 ug/dL 07/25/2023 12:55 AM EDT LAB[facility]ATORY [facility] Transferrin Saturation Percent 11(L) 15 - 55 % 07/25/2023 12:55 AM EDT LAB[facility]ATORY [facility] Blood Venous blood specimen / Unknown Venipuncture / Unknown 07/24/2023 10:59 AM EDT 07/24/2023 10:59 AM EDT Ludwig Louis MD LAB BLOOD ORDERA BLES LABORATORY [facility] [address] [place] [address] * FOLIC ACID (07/24/2023 10:59 AM EDT) Folic Acid 10.4 >4.5 ng/mL 07/25/2023 1:33 AM EDT LAB[facility]ATORY [facility] Blood Venous blood specimen / Unknown Venipuncture / Unknown 07/24/2023 10:59 AM EDT 07/24/2023 10:59 AM EDT Ludwig Louis MD LAB BLOOD ORDERA BLES Performing Organization Address [facility]/ZIP Co de Phone Number LABORATORY [facility] [address] [place] [address] * VITAMIN B12 (07/24/2023 10:59 AM EDT) Vitamin B12 891 232 - 1,245 pg/mL 07/25/2023 1:33 AM EDT LAB[facility]ATORY [facility] Blood Venous blood specimen / Unknown Venipuncture / Unknown 07/24/2023 10:59 AM EDT 07/24/2023 10:59 AM EDT Ludwig Louis MD LAB BLOOD ORDERA BLES Performing Organization Address [facility] Co de Phone Number LABORATORY C [address] [place] [address] * FERRITIN (07/24/2023 10:59 AM EDT) Ferritin 116 30 - 400 ng/mL 07/25/2023 1:33 AM EDT LABORATORY C Blood Venous blood specimen / Unknown Venipuncture / Unknown 07/24/2023 10:59 AM EDT 07/24/2023 10:59 AM EDT Ludwig Louis MD LAB BLOOD ORDERA BLES Performing Organization Address [facility]/ZIP Co de Phone Number LABORATORY [facility] [address] [place] [address] * (ABNORMAL) COMPREHENSIVE METABOLIC PANEL (07/24/2023 10:59 AM EDT) BUN 36(H) 6 - 20 mg/dL 07/25/2023 12:55 AM EDT LABORATORY [facility] Creatinine 1.6(H) 0.6 - 1.2 mg/dL 07/25/2023 12:55 AM EDT LAB[facility]ATORY [facility] Estimated Glomerular Filtration Rate 42(L) >=60 mL/min 07/25/2023 12:55 AM EDT LAB[facility]ATORY [facility] Comment:eGFR is calculated b ased on the CKD-EPI 2020 equation Sodium 140 135 - 146 mmol/L 07/25/2023 12:55 AM EDT LAB[facility]ATORY [facility] Potassium 4.1 3.5 - 5.1 mmol/L 07/25/2023 12:55 AM EDT LAB[facility]ATORY [facility] Chloride 104 98 - 107 mmol/L 07/25/2023 12:55 AM EDT LAB[facility]ATORY [facility] CO2 26 22 - 32 mmol/L 07/25/2023 12:55 AM EDT LAB[facility]ATORY [facility] Anion Gap 10 7 - 15 mmol/L 07/25/2023 12:55 AM EDT LAB[facility]ATORY [facility] Glucose 105 70 - 120 mg/dL 07/25/2023 12:55 AM EDT LAB[facility]ATORY [facility] Albumin 4.0 3.8 - 5.0 g/dL 07/25/2023 12:55 AM EDT LAB[facility]ATORY [facility] AST 23 10 - 50 U/L 07/25/2023 12:55 AM EDT LAB[facility]ATORY [facility] Alkaline Phosphatase 78 35 - 130 U/L 07/25/2023 12:55 AM EDT LAB[facility]ATORY [facility] Bilirubin, Total 1.2 <=1.2 mg/dL 07/25/2023 12:55 AM EDT LAB[facility]ATORY [facility] Calcium 8.9 8.4 - 10.2 mg/dL 07/25/2023 12:55 AM EDT LAB[facility] Protein 6.0 6.0 - 8.3 g/dL 07/25/2023 12:55 AM EDT LAB[facility] ALT 15 10 - 50 U/L 07/25/2023 12:55 AM EDT LAB[facility]ATORY [facility] Blood Venous blood specimen / Unknown Venipuncture / Unknown 07/24/2023 10:59 AM EDT 07/24/2023 10:59 AM EDT Ludwig Louis MD LAB BLOOD ORDERA BLES [facility] [address] [place] [address] documented in this encounter Visit Diagnoses Diagnosis Carcinoma of bladder (HCC)- Primary Malignant neoplasm of bladder, part unspecified Chronic kidney disease, stage 3a (HCC) Encounter for antineoplastic immunotherapy documented in this encounter Advance Directives Latest Code Status on File Code Status Date Activated Date Inactivated Comments Full Code 09/03/2007 7:29 AM 09/03/2007 4:02 PM Care Teams Payroll Assistant Relationship Specialty Start Date End Date Juancho Romero MD [address] [place] [address] [place] [id number] PCP - General Family Medicine 12/27/16 documented as of this encounter
--- OUTSIDE RECORDS SUMMARY | 2024-01-23 21:09 | External Medical Summary ---
Author Name Unknown Address Unknown Organization K01:LABORATORY [facility] - [facility] [address] [place] [address] Laboratory Report Ordering Provider Test Date Status ADRIENNE SALCIDO 11/27/2023 10:16:03 Final Observation Date Value Abnormality Reference (Units ) Status WBC, Total 11/27/2023 10:16:03 5.06 4.00-10.80 (K/uL) Final RBC 11/27/2023 10:16:03 3.99 4.50-5.25 (M/uL) Final Hemoglobin 11/27/2023 10:16:03 11.2 Below low normal 14.0-16.8 (g/dL) Final HCT 11/27/2023 10:16:03 39.6 Below low normal 40.0-48.4 (%) Final MCV 11/27/2023 10:16:03 99.2 82.0-99.5 (fL) Final MCH 11/27/2023 10:16:03 28.1 27.0-34.0 (pg) Final MCHC 11/27/2023 10:16:03 28.3 32.0-36.0 (g/dL) Final RDW 11/27/2023 10:16:03 18.5 11.5-15.5 (%) Final Platelets 11/27/2023 10:16:03 112 Below low normal 140-400 (K/uL) Final MPV 11/27/2023 10:16:03 12.3 6.6-11.1 (fL) Final Nucleated erythrocytes/100 leukocytes [Ratio] in Blood by Automated count 11/27/2023 10:16:03 0 <=0 (/100 WBCs) Final Performing Location LABORATORY [facility] - [address] [place] [address]
--- OUTSIDE RECORDS SUMMARY | 2024-01-23 21:09 | External Medical Summary | Summary of Care ---
Author Name Unknown Organization [facility] Address [address] [place] [address] Phone [phone] Care Team Providers Care Cigarette Machine Filler Name Role Phone Juancho Romero MD Primary Care Provider [phone] Reason for Visit * Reason Onset Date Comments Appointment 11/21/2023 Treatment Encounter Details Date Type Department Care Team (Late st Contact Info) Description 11/21/2023 Telephone Hematology/Oncology [facility] [address] [place] [address] Ludwig Louis MD [address] [facility] [place] [address] Appointment (Treatment) Allergies Active Allergy Reactions Criticality Noted Date Comments Penicillins Other (Please comment),Rash High Eyes swell Pollen 05/03/2022 Wound Dressing Adhesive Rash 05/02/2023 Patient reported documented as of this encounter (statuses as of 11/22/2023) Medications Medication Sig Dispensed Refills Start Date [...] albuterol 120 mL 5 11/21/2022 Active Ipratropium [place] 0.02 % Inhalation Solution (Atrovent)Indicatio ns:Moderate persistent [...] Respimat 2.5 MCG/ACT Inhalation Aerosol Solution (Tiotropium [place] Monohydrate)Indicat ions:Moderate persistent asthma without complication INHALE 2 PUFFS BY MOUTH EVERY DAY 12 g 3 04/30/2023 Active Rosuvastatin Calcium 10 MG Oral Tablet (Crestor) TAKE 1 TABLET BY MOUTH EVERY DAY 90 Tablet 1 05/27/2023 Active Warfarin Sodium 5 MG Oral Tablet (Coumadin)Indicatio ns:Pulmonary embolism and infarction (HCC) Take 0.5-1 Tablets by mouth every evening. Or take as instructed by the [facility] 90 Tablet 3 08/09/2023 Active [...] as of this encounter (statuses as of 11/22/2023) Active Problems Problem Noted Date Diagnosed Date [...] rinse after steroid. Test performed by Sameer EMAIL DESIGNER CPFT Pleural plaque due to asbestos exposure Restrictive lung disease Overview: In Check dial performed to assess inhaler technique: 12/15/19 Name of inhalers Albuterol Pass: Yes at 60 L/min and Advair Pass: Yes at 60 L/min. Encouraged to to take deep breath, use aero chamber, and rinse after steroid. 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 therapy [...] as of this encounter (statuses as of 11/22/2023) Immunizations Name Administration Dates Next Due COVID-19 mRNA, LNP-s, No Pre serve, 2-Dose Series (Xtone) 12/01/2021,01/16/2021,12/26/2020 COVID-19, LNP-s, No Preserve , Ozzy-sucrose, Ages 12+ (Xtone) 12/01/2021 COVID-19, MRNA-LNP, 23-24, P F, 30 MCG/0.3 mL, 12 YRS AND ABOVE, IM (Instantis-Comirnaty) 09/18/2023 Covid-19, Mrna, Lnp-s, Pf, B ivalent, 30 Mcg, IM, 12 yrs and above (Xtone) 10/09/2022 Pneumococcal Conjugate Vacc, 13 Valent (Prevnar) [...] encounter Miscellaneous Notes * Telephone Encounter - Tammie Everett OSA - 11/22/2023 9:54 AM EST Patients jody returned call and patient is coming in sooner today. * Telephone Encounter - Tammie Everett OSA - 11/22/2023 8:07 AM EST Called and lmom for patients to return call about moving time for todays appt. Offered her a 10:30am or an 11:00am. * Telephone Encounter - Sridevi Lira OSA - 11/21/2023 5:02 PM EST Pts called in asking if there is any way possible to move the pts treatment up sooner, she states they have to be back in [place] in time to get their grandson. She is asking for a return call in the morning to discuss if this is something that can be done bc if not then need to make other agreements for their grandson . documented in this encounter Plan of Treatment Upcoming Encounters Date Type Department Care Team (Late st Contact Info) Description 11/22/2023 11:00 AM EST Hem/Onc Treatment [address]emat[address] [address] Marylou, Chair [address] Hem On[address] [place] [address] 11/28/2023 10:30 AM EST Laboratory Laboratory [address] [place] [phone] [address] [place] [address] 11/28/2023 11:15 AM EST Immunization/Injection Hematology/[address], [address] [address] Nurse, Med [address] [place] [address] [place] [address] 11/29/2023 2:00 PM EST Hem/Onc Treatment [address]ematology[address] [address] Marylou, Chair 7 Hem Onc [address] [place] [address] 12/05/2023 6:30 AM EST Anticoagulation Pharmacy Call Center [address] [place] [address] [facility] [address] [place] [address] 12/11/2023 10:30 AM EST Laboratory Laboratory [address] [place] [phone] [address] [place] [address] 12/12/2023 11:00 AM EST Immunization/Injection Hematology/Oncology Treatment, [place] [address] [place] [address] Nurse, Med [facility] [place] [address] 12/31/2023 1:00 PM EST Cardiac Studies Cardiology [address] [place] [address] [facility] [place] [facility] [place] [address] 01/03/2024 10:30 AM EST Imaging Radiology [address] 132 [facility] [place] [address] 01/06/2024 10:30 AM EST Laboratory Laboratory [address] [place] [phone] [address] [place] [address] 01/08/2024 10:00 AM EST Office Visit Hematology/Oncology [facility] [address] [place] [address] Ludwig Louis MD [address] [place] [address] 02/11/2024 11:00 AM EDT Office Visit Family Medicine [address] [place] [phone] Bell Mcqueen MD [address] [place] [address] [place] [address] 08/10/2024 1:40 PM EDT Office Visit Rheumatology [address] [place] [phone] Win Nielsen MD [facility] [place], [place] [address] Scheduled Procedures Name Priority Associated Diagnoses Date/Ti me ESOPHAGOGASTRODUODENOSCOPY ( EGD), FLEXIBLE, TRANSORAL, DIAGNOSTIC Recall Stark's esophagus with dysplasia Health Maintenance Due Date Last Done Comments Depression Screening 07/12/2021 07/12/2020 CKD PHOS USE SMARTSET 69324 08/21/20220 02/2021, 07/12/2020, 03/13/2019, Additional history exists *BISPHONATE OR OTHER ACCEPTABLE MEDICATION NEEDED FOR OSTEOPOROSIS (REFER TO SMARTSET #1146) 10/14/2023 Albumin/Creatinine Ratio 04/22/2024 023, 05/24/2022, 03/26/2022, Additional history exists TSH 10/08/2024 10/08/2023, 0 01/2023, 06/19/2023, Additional history exists CKD HGB USE SMARTSET 10940 11/20/202411/20, 11/20/2023, 11/13/2023, Additional history exists Stark's Esophagus Surveilance 02/26/2025 02/26/2022, 02/26/2022, 07/04/2021, Additional history exists DXA Scan 07/05/2025 07/05/2023, 10/19, 11/04/2018, Additional history exists DTaP,Tdap,and Td Vaccines (2 - Td or Tdap) 08/19/2027 08/19/2017, 08/20/2008 Pneumococcal Vaccine: 65+ Years Completed 06/23/2015, 05/14/2013, 04/18/2004 Zoster Vaccines Completed 12/02/2020, 08/15/2020 VITAMIN D LEVEL ONCE IN A LIFETIME-USE SMARTSET# [id number] Completed 04/22/2023, 08/28/2021, 07/14/2015 Influenza Vaccine (FLU [...] this encounter Medical Devices Implanted Type Area Product Marketing Programs Manager Device Identifier Shelf Expiration Date Model / Serial / Lot Power Port 8fr Sngl Lumen Plas - [id number] Implanted:Qty: 1 on 02/22/2022 at [facility] CR BARD : PERIPHERAL VASCULAR [id number] 02/15/2023 [id number] / / [id number] documented as of this encounter Advance Directives Latest Code Status on File Code Status Date Activated Date Inactivated Comments Full Code 09/03/2007 7:29 AM 09/03/2007 4:02 PM Care Teams Cigarette Machine Filler Relationship Specialty Start Date End Date Juancho Romero MD [address] [place] [address] [place] [address] PCP - General Family Medicine 12/27/16 documented as of this encounter
--- OUTSIDE RECORDS SUMMARY | 2024-01-23 21:09 | External Medical Summary | Summary of Care ---
Author Name Unknown Organization [facility] Address [address] [place] [address] Phone [phone] Care Team Providers Care Clinical Consultant Name Role Phone Juancho Romero MD Primary Care Provider Reason for Visit * Reason Comments IV Therapy Venofer 3/4 Encounter Details Date Type Department Care Team (Latest Contact Info) Description 11/22/2023 11:00 AM EST Hem/Onc Treatment Hematology/Oncology Treatment, [address] [address] Marylou, Chair 10 Hem On[address] [address] Anemia of chronic disease*; Carcinoma of bladder [...] evening. Or take as instructed by the [facility] 90 Tablet 3 08/09/2023 [...] rinse after steroid. Test performed by Sameer CONDITIONER TUMBLER OPERATOR CPFT Pleural plaque due to asbestos exposure Restrictive lung disease Overview: In Check dial performed to assess inhaler technique: 12/15/19 Name of inhalers Albuterol Pass: Yes at 60 L/min and Advair Pass: Yes at 60 L/min. Encouraged to to take deep breath, use aero chamber, and rinse after steroid. 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 Pt reports "feeling good" today. PIV established; [...] Care Team (Late st Contact Info) Description 11/28/2023 10:30 AM EST Laboratory Laboratory [address] [place] [phone] [place] [address] 11/28/2023 11:15 AM EST Immunization/Injection Hematology/Oncology Treatment, [address] [place] [address] Nurse, Med 200 [facility] [place] [address] 11/29/2023 2:00 PM EST Hem/Onc Treatment Hematology/Oncology Treatment, [address] [place] [address] [place], Chair 7 Hem Onc [address] [place] [address] 12/05/2023 6:30 AM EST Anticoagulation Pharmacy Call Center WB [address] [facility] [place] [address] [facility] 58 60 [facility] [place] [address] 12/11/2023 10:30 AM EST Laboratory Laboratory [address] [place] [phone] [place] [address] 12/12/2023 11:00 AM EST Immunization/Injection Hematology/Oncology Treatment, [address] [place] [address] Nurse, Med 4 200 [facility] [place] [address] 12/31/2023 1:00 PM EST Cardiac Studies Cardiology [address] [place] [address] [place], Pacer [facility] [address] [place] [address] 01/03/2024 10:30 AM EST Imaging Radiology [facility] 1st [facility] [address] [place] [address] 01/06/2024 10:30 AM EST Laboratory Laboratory [address] [place] [phone] [place] [address] 01/08/2024 10:00 AM EST Office Visit Hematology/Oncology [facility] [address] [place] [address] Ludwig Louis MD 200 [facility] [place] [address] 02/11/2024 11:00 AM EDT Office Visit Family Medicine [address] [place] [phone] Bell Mcqueen MD [address] [place] [address] [place] [address] 08/10/2024 1:40 PM EDT Office Visit Rheumatology [address] [place] [phone] Win Nielsen MD [facility] [place] [address] Scheduled Procedures Name Priority Associated Diagnoses Date/Ti me ESOPHAGOGASTRODUODENOSCOPY ( EGD), FLEXIBLE, TRANSORAL, DIAGNOSTIC Recall Stark's esophagus with dysplasia Health Maintenance Due Date Last Done Comments Depression Screening 07/12/2021 07/12/2020 CKD PHOS USE SMARTSET 11243 08/21/2022 100 02/2021, 07/12/2020, 03/13/2019, Additional history exists *BISPHONATE OR OTHER ACCEPTABLE MEDICATION NEEDED FOR OSTEOPOROSIS (REFER TO SMARTSET #1146) 10/14/2023 Albumin/Creatinine Ratio 04/22/2024 023, 05/24/2022, 03/26/2022, Additional history exists TSH 10/08/2024 10/08/2023, 01/2023, 06/19/2023, Additional history exists CKD HGB USE SMARTSET 06433 11/20/202411/20, 11/20/2023, 11/13/2023, Additional history exists Stark's Esophagus Surveilance 02/26/2025 02/26/2022, 02/26/2022, 07/04/2021, Additional history exists DXA Scan 07/05/2025 07/05/2023, 10/19, 11/04/2018, Additional history exists DTaP,Tdap,and Td Vaccines (2 - Td or Tdap) 08/19/2027 08/19/2017, 08/20/2008 Pneumococcal Vaccine: 65+ Years Completed 06/23/2015, 05/14/2013, 04/18/2004 Zoster Vaccines Completed 12/02/2020, 08/15/2020 VITAMIN D LEVEL ONCE IN A LIFETIME-USE SMARTSET# [id number] Completed 04/22/2023, 08/28/2021, 07/14/2015 Influenza Vaccine (FLU [...] this encounter Medical Devices Implanted Type Area Office Service Coordinator Device Identifier Shelf Expiration Date Model / Serial / Lot Power Port 8fr Sngl Lumen Plas - [id number] Implanted:Qty: 1 on 02/22/2022 at [facility] CR BARD : PERIPHERAL VASCULAR [id number] 02/15/2023 [id number] / / [id number] documented as of this encounter Visit Diagnoses [...] ONCE PRN Other, Hypersensitivity Reaction, Starting on Sat11/22/23 at 1133, Until 11/23/23 at 1132, For 24 hours EPINEPHrine 1 MG/ML inj 0.3 mg 0.3 mg, Intramuscular, ONCE PRN Other, Hypersensitivity Reaction or Anaphylaxis, Starting on Sat11/22/23 at 1133, Until 11/23/23 at 1132, For 24 hours hEParin 100 UNIT/ML Lock Flush inj 500 Units 500 Units (5 mL), IV Lock, PRN Other, IV Flush, Starting on Sat11/22/23 at 1133, Until 11/23/23 at 1132, For 24 hours, Do not flush if lock, PICC, or central line not in place; IV infusing or unable to flush. Given 11/22/2023 1:09 PM EST 500 Units Hydrocortisone Sod Suc (PF) (Solu-Cortef) inj 100 mg 100 mg, IV Push, ONCE PRN Other, Hypersensitivity Reaction, Starting on Sat11/22/23 at 1133, Until 11/23/23 at 1132, For 24 hours NSS infusion 500 mL, Intravenous, at 50 mL/hr, CONTINUOUS, Starting on Sat11/22/23 at 1245, Until Sat11/22/23 at 2244 Start Infusion 11/22/2023 11:33 AM EST 500 mL 50 mL/hr oxygen GAS Inhalation, OXYGEN, First dose on Sat11/22/23 at 1600, Until Discontinued, Device/Managed by: Low Flow Device, [...] Flush, Starting on Sat11/22/23 at 1133, Until 11/23/23 at 1132, For 24 hours, Do not flush if lock, PICC, or central line not in place; IV infusing or unable to flush. Given 11/22/2023 1:09 PM EST 10 mL Inactive Administered Medications - up to 3 most recent administrations Medication Order MAR Action Action Date Dose Rate Site Iron Sucrose (Venofer) 300 mg in NSS 250 mL ivpb 300 mg, IV Piggyback, ONCE, 1 dose, On Sat11/22/23 at 1315, Administer over 90 Minutes Start Infusion 11/22/2023 11:33 AM EST 300 mg 166.67 mL/hr documented in this encounter Advance Directives Latest Code Status on File Code Status Date Activated Date Inactivated Comments Full Code 09/03/2007 7:29 AM 09/03/2007 4:02 PM Care Teams Clinical Consultant Relationship Specialty Start Date End Date Juancho Romero MD [address] [place] [address] [place] [phone] PCP - General Family Medicine 12/27/16 documented as of this encounter
--- OUTSIDE RECORDS SUMMARY | 2024-01-23 21:09 | External Medical Summary | Summary of Care ---
Author Name Unknown Organization [facility] Address [address] [place] [address] Phone [phone] Care Team Providers Care Radio News Anchor Name Role Phone Juancho Romero MD Primary Care Provider Reason for Visit * Reason Comments Medication Administration Procrit * Episode Based Medications (Routine) - Authorized Specialty Diagnoses / Procedures Referred By Aaron t Referred To Contact Diagnoses Carcinoma of bladder (HCC) Iron deficiency anemia, unspecified iron deficiency anemia type Procedures ID INJ RETACRIT NON-ESRD USE ID THERAPEUTIC PROPHYLACTIC/DX INJECTION SUBQ/IM ID EPOETIN IVAN, NON-ESRD Ludwig Louis MD [address] [place] [id number] Anc Hem/Onc Dony Hickman DEPT CLOSED - 10/01/23 [address] [place] [id number] Referral ID Status Reason Start Date Expiration Date V isits Requested Visits Authorized [id number] Authorized 09/12/2022 04/25/2024 [id number] Encounter Details Date Type Department Care Team (Late st Contact Info) Description 11/21/2023 11:00 AM EST Immunization/I njection Hematology/Oncology Treatment, [place] [address] [place] [address] Nurse, Med 4 [address] [place] [address] Carcinoma of bladder (HCC)*; Iron deficiency anemia, unspecified iron deficiency anemia type Allergies Active Allergy Reactions Criticality Noted Date Comments Penicillins Other (Please comment),Rash High Eyes swell Pollen 05/03/2022 Wound Dressing Adhesive Rash 05/02/2023 Patient reported documented as of this encounter (statuses as of 11/21/2023) Medications Medication Sig Dispensed Refills Start Date [...] albuterol 120 mL 5 11/21/2022 Active Ipratropium [place] 0.02 % Inhalation Solution (Atrovent)Indicatio ns:Moderate persistent [...] Respimat 2.5 MCG/ACT Inhalation Aerosol Solution (Tiotropium [place] Monohydrate)Indicat ions:Moderate persistent asthma without complication INHALE 2 PUFFS BY MOUTH EVERY DAY 12 g 3 04/30/2023 Active Rosuvastatin Calcium 10 MG Oral Tablet (Crestor) TAKE 1 TABLET BY MOUTH EVERY DAY 90 Tablet 1 05/27/2023 Active Warfarin Sodium 5 MG Oral Tablet (Coumadin)Indicatio ns:Pulmonary embolism and infarction (HCC) Take 0.5-1 Tablets by mouth every evening. Or take as instructed by the [facility] 90 Tablet 3 08/09/2023 [...] as of this encounter (statuses as of 11/21/2023) Active Problems Problem Noted Date Diagnosed Date [...] rinse after steroid. Test performed by Sameer SITE SAFETY COORDINATOR CPFT Pleural plaque due to asbestos exposure Restrictive lung disease Overview: In Check dial performed to assess inhaler technique: 12/15/19 Name of inhalers Albuterol Pass: Yes at 60 L/min and Advair Pass: Yes at 60 L/min. Encouraged to to take deep breath, use aero chamber, and rinse after steroid. 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 [...] as of this encounter (statuses as of 11/21/2023) Immunizations Name Administration Dates Next Due COVID-19 mRNA, LNP-s, No Pre serve, 2-Dose Series ([employer]) 12/01/2021,01/16/2021,12/26/2020 COVID-19, LNP-s, No Preserve , Ozzy-sucrose, Ages 12+ ([employer]) 12/01/2021 COVID-19, MRNA-LNP, 23-24, P F, 30 MCG/0.3 mL, 12 YRS AND ABOVE, IM (PFI[employer]ER-Comirnaty) 09/18/2023 Covid-19, Mrna, Lnp-s, Pf, B ivalent, 30 Mcg, IM, 12 yrs and above ([employer]) 10/09/2022 Pneumococcal Conjugate Vacc, 13 Valent (Prevnar) [...] Sign Reading Time Taken Comments Blood Pressure 106/54 11/21/2023 11:01 AM EST Pulse 72 11/21/2023 11:01 AM EST Temperature - - Respiratory Rate - - Oxygen Saturation - - Inhaled Oxygen Concentration - - Weight - - Height - - Body Mass Index - - documented in this encounter Nursing Notes * Leana Sears LPN - 11/21/2023 11:16 AM EST Pt arrived for Procrit injection. Hgb 10.7. Administered in SHON. Pt tolerated well. BP WNL.To return tomorrow for Venofer and next week for Procrit. Pt discharged in stable condition. documented in this encounter Plan of Treatment Upcoming Encounters Date Type Department Care Team (Late st Contact Info) Description 11/22/2023 1:15 PM EST Hem/Onc Treatment Hematology/Oncology Treatment, [address] [place] [address] Marylou, Chair 10 Hem Onc [address] [place] [address] 11/28/2023 10:30 AM EST Laboratory Laboratory [address] [place] [phone] [place], [address] [place] [address] 11/28/2023 11:15 AM EST Immunization/Injection Hematology/Oncology Treatment, [address] [place] [address] Nurse, Med [address] [place] [address] [place] [address] 11/29/2023 2:00 PM EST Hem/Onc Treatment Hematology/Oncology Treatment, [address] [place] [address] Marylou, Chair 7 Hem Onc [address] [place] [address] 12/05/2023 6:30 AM EST Anticoagulation Pharmacy Call Center 58-60 [facility] [place] [address] [facility] 58 60 [facility] [place] [address] 12/11/2023 10:30 AM EST Laboratory Laboratory [address] [place] [phone] [address] [place] [address] 12/12/2023 11:00 AM EST Immunization/Injection Hematology/Oncology Treatment, [place] [address] [place] [address] Nurse, Med [address] [place] [address] 12/31/2023 1:00 PM EST Cardiac Studies Cardiology [address] [place] [address] Og Frazier [facility] 132 [facility] [place] [address] 01/03/2024 10:30 AM EST Imaging Radiology [facility] 1st [facility] 132 [facility] [place] [address] 01/06/2024 10:30 AM EST Laboratory Laboratory [address] [place] [phone] [address] [place] [address] 01/08/2024 10:00 AM EST Office Visit Hematology/Oncology [facility] [place] [address] [place] [address] Ludwig Louis MD [address] [place] [address] 02/11/2024 11:00 AM EDT Office Visit Family Medicine [address] [place] [phone] Bell Mcqueen MD [address] [place] [address] [place] [address] 08/10/2024 1:40 PM EDT Office Visit Rheumatology [address] [place] [phone] Win Nielsen MD [facility] [place] [address] Scheduled Procedures Name Priority Associated Diagnoses Date/Ti me ESOPHAGOGASTRODUODENOSCOPY ( EGD), FLEXIBLE, TRANSORAL, DIAGNOSTIC Recall Stark's esophagus with dysplasia Health Maintenance Due Date Last Done Comments Depression Screening 07/12/2021 07/12/2020 CKD PHOS USE SMARTSET 67606 08/21/202202/2021, 07/12/2020, 03/13/2019, Additional history exists *BISPHONATE OR OTHER ACCEPTABLE MEDICATION NEEDED FOR OSTEOPOROSIS (REFER TO SMARTSET #1146) 10/14/2023 Albumin/Creatinine Ratio 04/22/2024 023, 05/24/2022, 03/26/2022, Additional history exists TSH 10/08/2024 10/08/2023, 01/2023, 06/19/2023, Additional history exists CKD HGB USE SMARTSET 00558 11/20/202411/20, 11/20/2023, 11/13/2023, Additional history exists Stark's Esophagus Surveilance 02/26/2025 02/26/2022, 02/26/2022, 07/04/2021, Additional history exists DXA Scan 07/05/2025 07/05/2023, 10/19, 11/04/2018, Additional history exists DTaP,Tdap,and Td Vaccines (2 - Td or Tdap) 08/19/2027 08/19/2017, 08/20/2008 Pneumococcal Vaccine: 65+ Years Completed 06/23/2015, 05/14/2013, 04/18/2004 Zoster Vaccines Completed 12/02/2020, 08/15/2020 VITAMIN D LEVEL ONCE IN A LIFETIME-USE SMARTSET# [id number] Completed 04/22/2023, 08/28/2021, 07/14/2015 Influenza Vaccine (FLU [...] this encounter Medical Devices Implanted Type Area Rn Clinical Review Device Identifier Shelf Expiration Date Model / Serial / Lot Power Port 8fr Sngl Lumen Plas - [id number] Implanted:Qty: 1 on 02/22/2022 at [facility] : PERIPHERAL VASCULAR [id number] 02/15/2023 [id number] / / [id number] documented as of this encounter Visit Diagnoses Diagnosis Carcinoma of bladder (HCC)- Primary Malignant neoplasm of bladder, part unspecified Iron deficiency anemia, unspecified iron deficiency anemia type documented in this encounter Administered Medications Inactive Administered Medications - up to 3 most recent administrations Medication Order MAR Action Action Date Dose Rate Site Epoetin Ivan [address]30[address] UNIT/ML inj 40,000 Units 40,000 Units, Subcutaneous, ONCE, On Marilin 11/21/23 at 1145, For 1 dose Given 11/21/2023 11:06 AM EST 40,000 Units Arm Right Upper documented in this encounter Advance Directives Latest Code Status on File Code Status Date Activated Date Inactivated Comments Full Code 09/03/2007 7:29 AM 09/03/2007 4:02 PM Care Teams Radio News Anchor Relationship Specialty Start Date End Date Juancho Romero MD [address] [place] [address] [place] [phone] PCP - General Family Medicine 12/27/16 documented as of this encounter
--- OUTSIDE RECORDS SUMMARY | 2024-01-23 21:09 | External Medical Summary | Summary of Care ---
Author Name Unknown Organization [facility] Address [address] [place] [address] Phone [phone] Care Team Providers Care Oil And Gas Field Technician Name Role Phone Juancho Romero MD Primary Care Provider [phone] Reason for Visit * Reason Onset Date Comments Appointment 11/21/2023 Treatment Encounter Details Date Type Department Care Team (Late st Contact Info) Description 11/21/2023 Telephone Hematology/Oncology [facility] [address] [place] [address] Ludwig Louis MD [address] [facility] [address] Appointment (Treatment) Allergies Active Allergy Reactions Criticality [...] albuterol 120 mL 5 11/21/2022 Active Ipratropium [place] 0.02 % Inhalation Solution (Atrovent)Indicatio ns:Moderate persistent [...] Respimat 2.5 MCG/ACT Inhalation Aerosol Solution (Tiotropium [place] Monohydrate)Indicat ions:Moderate persistent asthma without complication INHALE [...] 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 Test performed by Sameer TELEPHONER CPFT Pleural plaque due to asbestos exposure Restrictive lung disease Overview: In Check dial performed to assess inhaler technique: 12/15/19 Name of inhalers Albuterol Pass: Yes at 60 L/min and Advair Pass: Yes at 60 L/min. Encouraged to to take deep breath, use aero chamber, and rinse after steroid. Test performed by Sameer TELEPHONER CPFT Hx of pulmonary embolus 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 Overview: [place] C0-M6 documented as of this encounter (statuses [...] infection 08/22/2005 04/05/2016 Anal fissure 06/04/2005 10/16/2007 rotary cutter current use of ant icoagulant therapy 05/30/2005 [...] mRNA, LNP-s, No Pre serve, 2-Dose Series ([employer]) 12/01/2021,01/16/2021,12/26/2020 COVID-19, LNP-s, No Preserve , Ozzy-sucrose, Ages 12+ ([employer]) 12/01/2021 COVID-19, MRNA-LNP, 23-24, P F, 30 MCG/0.3 mL, 12 YRS AND ABOVE, IM ([employer]-Comirnaty) 09/18/2023 Covid-19, Mrna, Lnp-s, Pf, B ivalent, 30 Mcg, IM, 12 yrs and above ([employer]) 10/09/2022 Pneumococcal Conjugate Vacc, 13 Valent (Prevnar) [...] encounter Miscellaneous Notes * Telephone Encounter - Sridevi Lira OSA - 11/21/2023 5:02 PM EST Pts called in asking if there is any way possible to move the pts treatment up sooner, she states they have to be back in [place] in time to get their grandson. She [...] 1:15 PM EST Hem/Onc Treatment Hematology/Oncology Treatment, [place] [address] [place] [address] Marylou, Chair 10 Hem Onc [address] [address] [place] [address] 11/28/2023 10:30 AM EST Laboratory Laboratory [address] [place] [phone] [address] [place] [address] 11/28/2023 11:15 AM EST Immunization/Injection Hematology/Oncology Treatment, [place] 200 [facility] [place] [address] Nurse, Med 4 [address] [place] [address] 11/29/2023 2:00 PM EST Hem/Onc Treatment Hematology/Oncology Treatment, [place] 200 [facility] [place] [address] [place], Chair 7 Hem Onc Scene 200 [facility] [place] [address] 12/05/2023 6:30 AM EST Anticoagulation Pharmacy Call Center WB [address] [place] [address] [facility] 58 60 [facility] [place] [address] 12/11/2023 10:30 AM EST Laboratory Laboratory [address] [place] [phone] [address] [place] [address] 12/12/2023 11:00 AM EST Immunization/Injection Hematology/Oncology Treatment, [place] 200 [facility] [place] [address] Nurse, Med 4 [address] [place] [address] 12/31/2023 1:00 PM EST Cardiac Studies Cardiology [address] [place] [address] Og Frazier [address] [place] [address] 01/03/2024 10:30 AM EST Imaging Radiology [facility] 1st [facility] [address] [place] [address] 01/06/2024 10:30 AM EST Laboratory Laboratory [address] [place] [phone] [address] [place] [address] 01/08/2024 10:00 AM EST Office Visit Hematology/Oncology [facility] 200 [facility] [place] [address] Ludwig Louis MD [address] [place] [address] 02/11/2024 11:00 AM EDT Office Visit Family Medicine [address] [place] [phone] Bell Mcqueen MD [address] [place] [address] [place] [address] 08/10/2024 1:40 PM EDT Office Visit Rheumatology [address] [place] [phone] Win Nielsen MD [address] [place] [address] [place] [address] Scheduled Procedures Name Priority Associated Diagnoses Date/Ti me ESOPHAGOGASTRODUODENOSCOPY ( EGD), FLEXIBLE, TRANSORAL, DIAGNOSTIC Recall Stark's esophagus with dysplasia Health Maintenance Due Date Last Done Comments Depression Screening 07/12/2021 07/12/2020 CKD PHOS USE SMARTSET 29986 08/21/2022 10/0 02/2021, 07/12/2020, 03/13/2019, Additional history exists *BISPHONATE OR OTHER ACCEPTABLE MEDICATION NEEDED FOR OSTEOPOROSIS (REFER TO SMARTSET #1146) 10/14/2023 Albumin/Creatinine Ratio 04/22/2024 023, 05/24/2022, 03/26/2022, Additional history exists TSH 10/08/2024 10/08/2023, 1001/2023, 06/19/2023, Additional history exists CKD HGB USE SMARTSET 72595 11/20/202411/20, 11/20/2023, 11/13/2023, Additional history exists Stark's Esophagus Surveilance 02/26/2025 02/26/2022, 02/26/2022, 07/04/2021, Additional history exists DXA Scan 07/05/2025 07/05/2023, 10/19, 11/04/2018, Additional history exists DTaP,Tdap,and Td Vaccines (2 - Td or Tdap) 08/19/2027 08/19/2017, 08/20/2008 Pneumococcal Vaccine: 65+ Years Completed 06/23/2015, 05/14/2013, 04/18/2004 Zoster Vaccines Completed 12/02/2020, 08/15/2020 VITAMIN D LEVEL ONCE IN A LIFETIME-USE SMARTSET# [id number] Completed 04/22/2023, 08/28/2021, 07/14/2015 Influenza Vaccine (FLU [...] this encounter Medical Devices Implanted Type Area Electronics Engineer Device Identifier Shelf Expiration Date Model / Serial / Lot Power Port 8fr Sngl Lumen Plas - [id number] Implanted:Qty: 1 on 02/22/2022 at [facility] : PERIPHERAL VASCULAR [id number] 02/15/2023 [id number] / / [id number] documented as of this encounter Advance Directives Latest Code Status on File Code Status Date Activated Date Inactivated Comments Full Code 09/03/2007 7:29 AM 09/03/2007 4:02 PM Care Teams Oil And Gas Field Technician Relationship Specialty Start Date End Date Juancho Romero MD [address] [place] [address] [place] [phone] PCP - General Family Medicine 12/27/16 documented as of this encounter
--- OUTSIDE RECORDS SUMMARY | 2024-01-23 21:09 | External Medical Summary | Summary of Care ---
Author Name Unknown Organization [facility] Address [address] [place] [address] Phone [phone] Care Team Providers Care Charger Operator Helper Name Role Phone Juancho Romero MD Primary Care Provider Reason for Visit * Reason Onset Date Comments Appointment 11/21/2023 Treatment Encounter Details Date Type Department Care Team (Late st Contact Info) Description 11/21/2023 Telephone Hematology/Oncology [facility] [address] [place] [address] Ludwig Louis MD [address] [place] [facility] [place] [address] Appointment (Treatment) Allergies Active Allergy Reactions Criticality [...] albuterol 120 mL 5 11/21/2022 Active Ipratropium [place] 0.02 % Inhalation Solution (Atrovent)Indicatio ns:Moderate persistent [...] Respimat 2.5 MCG/ACT Inhalation Aerosol Solution (Tiotropium [place] Monohydrate)Indicat ions:Moderate persistent asthma without complication INHALE [...] as instructed by the [facility] 90 Tablet 3 [...] rinse after steroid. Test performed by Sameer LAB ASSISTANT CPFT Pleural plaque due to asbestos exposure Restrictive lung disease Overview: In Check dial performed to assess inhaler technique: 12/15/19 Name of inhalers Albuterol Pass: Yes at 60 L/min and Advair Pass: Yes at 60 L/min. Encouraged to to take deep breath, use aero chamber, and rinse after steroid. Test performed by Sameer LAB ASSISTANT CPFT Hx of pulmonary embolus 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 Overview: [place] C0-M6 documented as of this encounter (statuses [...] infection 08/22/2005 04/05/2016 Anal fissure 06/04/2005 10/16/2007 watermaster current use of ant icoagulant therapy 05/30/2005 [...] mRNA, LNP-s, No Pre serve, 2-Dose Series ([employer]) 12/01/2021,01/16/2021,12/26/2020 COVID-19, LNP-s, No Preserve , Ozzy-sucrose, Ages 12+ ([employer]) 12/01/2021 COVID-19, MRNA-LNP, 23-24, P F, 30 MCG/0.3 mL, 12 YRS AND ABOVE, IM ([employer]-Comirnaty) 09/18/2023 Covid-19, Mrna, Lnp-s, Pf, B ivalent, 30 Mcg, IM, 12 yrs and above ([employer]) 10/09/2022 Pneumococcal Conjugate Vacc, 13 Valent (Prevnar) [...] states they have to be back in [place] in time to get their grandson. She [...] 1:15 PM EST Hem/Onc Treatment Hematology/Oncology Treatment, [place] 200 [facility] [place] [address] Marylou, Chair 10 Hem Onc [address] 200 [facility] [place] [address] 11/28/2023 10:30 AM EST Laboratory Laboratory [address] [place] [phone] [address] [place] [address] 11/28/2023 11:15 AM EST Immunization/Injection Hematology/Oncology Treatment, [place] 200 [facility] [address] Nurse, Med 4 200 [facility] [place] [address] 11/29/2023 2:00 PM EST Hem/Onc Treatment Hematology/Oncology Treatment, [address] [place] [address] Marylou, Chair 7 Hem Onc [facility] [address] [place] [address] [place] [address] 12/05/2023 6:30 AM EST Anticoagulation Pharmacy Call Center WB 58[address]60 [facility] [place] [address] [facility] 58 60 [facility] [place] [address] 12/11/2023 10:30 AM EST Laboratory Laboratory [address] [place] [phone] [address] [place] [address] 12/12/2023 11:00 AM EST Immunization/Injection Hematology/Oncology Treatment, [place] [address] [place] [address] Nurse, Med 4 [address] [place] [address] 12/31/2023 1:00 PM EST Cardiac Studies Cardiology [address] [place] [address] [facility] [place] [address] 01/03/2024 10:30 AM EST Imaging Radiology [facility] 1st [facility] 132 [facility] [place] [address] 01/06/2024 10:30 AM EST Laboratory Laboratory [address] [place] [phone] [facility] [address] [place] [address] 01/08/2024 10:00 AM EST Office Visit Hematology/Oncology [facility] [address] [place] [address] Ludwig Louis MD 200 [facility] [place] [address] 02/11/2024 11:00 AM EDT Office Visit Family Medicine [address] [place] [phone] Bell Mcqueen MD [address] [place] [address] [place] [address] 08/10/2024 1:40 PM EDT Office Visit Rheumatology [address] [place] [phone] Win Nielsen MD [facility] [place] [address] Scheduled Procedures Name Priority Associated Diagnoses Date/Ti me ESOPHAGOGASTRODUODENOSCOPY ( EGD), FLEXIBLE, TRANSORAL, DIAGNOSTIC Recall Stark's esophagus with dysplasia Health Maintenance Due Date Last Done Comments Depression Screening 07/12/2021 07/12/2020 CKD PHOS USE SMARTSET 37821 08/21/2022 100 02/2021, 07/12/2020, 03/13/2019, Additional history exists *BISPHONATE OR OTHER ACCEPTABLE MEDICATION NEEDED FOR OSTEOPOROSIS (REFER TO SMARTSET #1146) 10/14/2023 Albumin/Creatinine Ratio 04/22/2024 023, 05/24/2022, 03/26/2022, Additional history exists TSH 10/08/2024 10/08/2023, 01/2023, 06/19/2023, Additional history exists CKD HGB USE SMARTSET 41281 11/20/202411/20, 11/20/2023, 11/13/2023, Additional history exists Stark's Esophagus Surveilance 02/26/2025 02/26/2022, 02/26/2022, 07/04/2021, Additional history exists DXA Scan 07/05/2025 07/05/2023, 10/19, 11/04/2018, Additional history exists DTaP,Tdap,and Td Vaccines (2 - Td or Tdap) 08/19/2027 08/19/2017, 08/20/2008 Pneumococcal Vaccine: 65+ Years Completed 06/23/2015, 05/14/2013, 04/18/2004 Zoster Vaccines Completed 12/02/2020, 08/15/2020 VITAMIN D LEVEL ONCE IN A LIFETIME-USE SMARTSET# [id number] Completed 04/22/2023, 08/28/2021, 07/14/2015 Influenza Vaccine (FLU [...] this encounter Medical Devices Implanted Type Area Air Conditioner Installer Helper Device Identifier Shelf Expiration Date Model / Serial / Lot Power Port 8fr Sngl Lumen Plas - [id number] Implanted:Qty: 1 on 02/22/[address] [facility] CR [facility]ARD : PERIPHERAL VASCULAR [id number] 02/15/2023 [id number] / / [id number] documented as of this encounter Advance Directives Latest Code Status on File Code Status Date Activated Date Inactivated Comments Full Code 09/03/2007 7:29 AM 09/03/2007 4:02 PM Care Teams Charger Operator Helper Relationship Specialty Start Date End Date Juancho Romero MD [address] [place] [address] [place] [address] PCP - General Family Medicine 12/27/16 documented as of this encounter
--- OUTSIDE RECORDS SUMMARY | 2024-01-23 21:09 | External Medical Summary | Summary of Care ---
Author Name Unknown Organization [facility] Address [address] [place] [address] Phone [phone] Care Team Providers Care School Guidance Counselor Name Role Phone Juancho Romero MD Primary Care Provider [phone] Reason for Visit * Reason Onset Date Comments Appointment 11/25/2023 Encounter Details Date Type Department Care Team (Late st Contact Info) Description 11/25/2023 Telephone Hematology/Oncology, [facility] [address] [place] [address] Ludwig Louis MD 200 [facility] [place] [address] Appointment Allergies Active Allergy Reactions Criticality Noted Date Comments Penicillins Other (Please comment),Rash High Eyes swell Pollen 05/03/2022 Wound Dressing Adhesive Rash 05/02/2023 Patient reported documented as of this encounter (statuses as of 11/25/2023) Medications Medication Sig Dispensed Refills Start Date [...] albuterol 120 mL 5 11/21/2022 Active Ipratropium [place] 0.02 % Inhalation Solution (Atrovent)Indicatio ns:Moderate persistent [...] Respimat 2.5 MCG/ACT Inhalation Aerosol Solution (Tiotropium [place] Monohydrate)Indicat ions:Moderate persistent asthma without complication INHALE [...] take as instructed by the [facility] 90 Tablet 3 08/09/2023 Active [...] as of this encounter (statuses as of 11/25/2023) Active Problems Problem Noted Date Diagnosed Date [...] rinse after steroid. Test performed by Sameer LADLE MECHANIC CPFT Pleural plaque due to asbestos exposure Restrictive lung disease Overview: In Check dial performed to assess inhaler technique: 12/15/19 Name of inhalers Albuterol Pass: Yes at 60 L/min and Advair Pass: Yes at 60 L/min. Encouraged to to take deep breath, use aero chamber, and rinse after steroid. Test performed by Sameer LADLE MECHANIC CPFT Hx of pulmonary embolus 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 Overview: [place] C0-M6 documented as of this encounter (statuses as of 11/25/2023) Resolved Problems Problem Noted Date Diagnosed Date [...] infection 08/22/2005 04/05/2016 Anal fissure 06/04/2005 10/16/2007 prison current use of ant icoagulant therapy 05/30/2005 [...] as of this encounter (statuses as of 11/25/2023) Immunizations Name Administration Dates Next Due COVID-19 mRNA, LNP-s, No Pre serve, 2-Dose Series ([employer]) 12/01/2021,01/16/2021,12/26/2020 COVID-19, LNP-s, No Preserve , Ozzy-sucrose, Ages 12+ ([employer]) 12/01/2021 COVID-19, MRNA-LNP, 23-24, P F, 30 MCG/0.3 mL, 12 YRS AND ABOVE, IM ([employer]-Comirnat) 09/18/2023 Covid-19, Mrna, Lnp-s, Pf, B ivalent, 30 Mcg, IM, 12 yrs and above ([employer]) 10/09/2022 Pneumococcal Conjugate Vacc, 13 Valent (Prevnar) [...] Telephone Encounter - Tammie Everett OSA - 11/25/2023 9:21 AM EST Called and spoke to patients jody. Patient is now on for venofer at 9:15am on 11/29/23. * Telephone Encounter - Farnaz Sexton OSA - 11/25/2023 8:44 AM EST Jody is calling to see if he could get his venofer appt on Saturday moved up to earlier in the day. Please call her back to advise. Try home number before 10 am and then after call her cell phone. documented in this encounter Plan of Treatment Upcoming Encounters Date Type Department Care Team (Late st Contact Info) Description 11/27/2023 9:40 AM EST Laboratory Laboratory [address] [place] [phone] [place] [address] 11/28/2023 11:15 AM EST Immunization/Injection Hematology/Oncology Treatment, [place] 200 [facility] [place] [address] Nurse, Med [address] [place] [address] 11/29/2023 9:15 AM EST Hem/Onc Treatment Hematology/Oncology Treatment, [place] 200 [facility] [place] [address] Park, Chair 10 Hem Onc [facility] 200 [facility] [place] [address] 12/05/2023 6:30 AM EST Anticoagulation Pharmacy Call Center [phone] [facility] [place] [address] [facility] 58 60 [facility] [place] [address] 12/11/2023 10:30 AM EST Laboratory Laboratory [address] [place] [phone] [address] [place] [address] 12/12/2023 11:00 AM EST Immunization/Injection Hematology/Oncology Treatment, [place] 200 [facility] [place] [address] Nurse, Med 4 200 [facility] [place] [address] 12/31/2023 1:00 PM EST Cardiac Studies Cardiology [address] [place] [address] [facility] [address] [place] [address] 01/03/2024 10:30 AM EST Imaging Radiology [facility] [address] [place] [address] 01/06/2024 10:30 AM EST Laboratory Laboratory [address] [place] [phone] [place] [address] 01/08/2024 10:00 AM EST Office Visit Hematology/Oncology [facility] [address] [place] [address] Ludwig Louis MD [address] [place] [address] 02/11/2024 11:00 AM EDT Office Visit Family Medicine [address] [place] [phone] Bell Mcqueen MD [address] [place] [address] [place] [address] 08/10/2024 1:40 PM EDT Office Visit Rheumatology [address] [place] [phone] Win Nielsen MD [address] [place] [address] [place] [address] Scheduled Procedures Name Priority Associated Diagnoses Date/Ti me ESOPHAGOGASTRODUODENOSCOPY ( EGD), FLEXIBLE, TRANSORAL, DIAGNOSTIC Recall Stark's esophagus with dysplasia Health Maintenance Due Date Last Done Comments Depression Screening 07/12/2021 07/12/2020 CKD PHOS USE SMARTSET 85120 08/21/2022 10/0 02/2021, 07/12/2020, 03/13/2019, Additional history exists *BISPHONATE OR OTHER ACCEPTABLE MEDICATION NEEDED FOR OSTEOPOROSIS (REFER TO SMARTSET #1146) 10/14/2023 Albumin/Creatinine Ratio 04/22/2024 023, 05/24/2022, 03/26/2022, Additional history exists TSH 10/08/2024 10/08/2023, 100 01/2023, 06/19/2023, Additional history exists CKD HGB USE SMARTSET 17782 11/20/202411/20, 11/20/2023, 11/13/2023, Additional history exists Stark's Esophagus Surveilance 02/26/2025 02/26/2022, 02/26/2022, 07/04/2021, Additional history exists DXA Scan 07/05/2025 07/05/2023, 10/19, 11/04/2018, Additional history exists DTaP,Tdap,and Td Vaccines (2 - Td or Tdap) 08/19/2027 08/19/2017, 08/20/2008 Pneumococcal Vaccine: 65+ Years Completed 06/23/2015, 05/14/2013, 04/18/2004 Zoster Vaccines Completed 12/02/2020, 08/15/2020 VITAMIN D LEVEL ONCE IN A LIFETIME-USE SMARTSET# [id number] Completed 04/22/2023, 08/28/2021, 07/14/2015 Influenza Vaccine (FLU [...] this encounter Medical Devices Implanted Type Area Plant Controller Device Identifier Shelf Expiration Date Model / Serial / Lot Power Port 8fr Sngl Lumen Plas - [id number] Implanted:Qty: 1 on 02/22/2022 at [facility] CR BARD : PERIPHERAL VASCULAR [id number] 02/15/2023 [id number] / / [id number] documented as of this encounter Advance Directives Latest Code Status on File Code Status Date Activated Date Inactivated Comments Full Code 09/03/2007 7:29 AM 09/03/2007 4:02 PM Care Teams School Guidance Counselor Relationship Specialty Start Date End Date Juancho Romero MD [address] [place] [address] [place] [id number] PCP - General Family Medicine 12/27/16 documented as of this encounter
--- OUTSIDE RECORDS SUMMARY | 2024-01-23 21:09 | External Medical Summary ---
Author Name Unknown Address Unknown Organization K01[facility] [place] [address] [facility] [place] [address] Laboratory Report Ordering Provider Test Date Status ADRIENNE SALCIDO 11/27/2023 10:16:03 Final Observation Date Value Abnormality Reference (Units ) Status SYNC LEUKOCYTES IN BLOOD BY AUTOMATED COUNT 11/27/2023 10:16:03 5.06 4.00-10.80 (K/uL) Final Segs 11/27/2023 10:16:03 72.5 40.0-75.0 (%) Final Lymphs % 11/27/2023 10:16:03 15.2 Below low normal 18.0-42.0 (%) Final Monos 11/27/2023 10:16:03 9.1 1.0-11.0 (%) Final Eosinophils 11/27/2023 10:16:03 1.4 0.0-6.0 (%) Final Basos 11/27/2023 10:16:03 0.8 0.0-2.0 (%) Final Immature Granulocyte, Percent 11/27/2023 10:16:03 1.0 0.0-2.0 (%) Final Absolute Segs 11/27/2023 10:16:03 3.67 1.80-7.70 (K/uL) Final Lymphs, absolute 11/27/2023 10:16:03 0.77 Below low normal 1.00-4.80 (K/ul) Final Monos, Abs 11/27/2023 10:16:03 0.46 0.00-1.10 (K/uL) Final Eos, Abs 11/27/2023 10:16:03 0.07 0.00-0.70 (K/uL) Final Basos, Abs 11/27/2023 10:16:03 0.04 0.00-0.20 (K/uL) Final Immature Granulocytes, Number 11/27/2023 10:16:03 0.05 0.00-0.20 (K/uL) Final Performing Location [facility] [place] [facility] [address]. [facility] [address]
--- OUTSIDE RECORDS SUMMARY | 2024-01-23 21:09 | External Medical Summary | Summary of Care ---
Author Name Unknown Organization [facility] Address [address] [place] [address] Phone [phone] Care Team Providers Care Composite Layup Worker Name Role Phone Juancho Romero MD Primary Care Provider [phone] Reason for Visit * Reason Comments Outpatient Testing Encounter Details Date Type Department Care Team (Late st Contact Info) Description 11/27/2023 9:40 AM EST Laboratory Laboratory [address] [place] [phone] [place] [address] Urothelial carcinoma of bladder (HCC) Allergies Active Allergy Reactions Criticality Noted Date Comments Penicillins Other (Please comment),Rash High Eyes swell Pollen 05/03/2022 Wound Dressing Adhesive Rash 05/02/2023 Patient reported documented as of this encounter (statuses as of 11/27/2023) Medications Medication Sig Dispensed Refills Start Date [...] albuterol 120 mL 5 11/21/2022 Active Ipratropium [place] 0.02 % Inhalation Solution (Atrovent)Indicatio ns:Moderate persistent [...] Respimat 2.5 MCG/ACT Inhalation Aerosol Solution (Tiotropium [place] Monohydrate)Indicat ions:Moderate persistent asthma without complication INHALE 2 PUFFS BY MOUTH EVERY DAY 12 g 3 04/30/2023 Active Rosuvastatin Calcium 10 MG Oral Tablet (Crestor) TAKE 1 TABLET BY MOUTH EVERY DAY 90 Tablet 1 05/27/2023 Active Warfarin Sodium 5 MG Oral Tablet (Coumadin)Indicatio ns:Pulmonary embolism and infarction (HCC) Take 0.5-1 Tablets by mouth every evening. Or take as instructed by the [facility] 90 Tablet 3 08/09/2023 [...] as of this encounter (statuses as of 11/27/2023) Active Problems Problem Noted Date Diagnosed Date [...] rinse after steroid. Test performed by Sameer CAUSTIC PLANT WORKER CPFT Pleural plaque due to asbestos exposure Restrictive lung disease Overview: In Check dial performed to assess inhaler technique: 12/15/19 Name of inhalers Albuterol Pass: Yes at 60 L/min and Advair Pass: Yes at 60 L/min. Encouraged to to take deep breath, use aero chamber, and rinse after steroid. Test performed by Sameer CAUSTIC PLANT WORKER CPFT Hx of pulmonary embolus 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 Overview: [place] C0-M6 documented as of this encounter (statuses as of 11/27/2023) Resolved Problems Problem Noted Date Diagnosed Date [...] Malignant neoplasm of prostate 09/23/2008 03/27/2018 Overview: [place] grade 3 Atrial flutter 09/02/2007 10/16/2007 Herpes [...] as of this encounter (statuses as of 11/27/2023) Immunizations Name Administration Dates Next Due COVID-19 mRNA, LNP-s, No Pre serve, 2-Dose Series ([employer]) 12/01/2021,01/16/2021,12/26/2020 COVID-19, LNP-s, No Preserve , Ozzy-sucrose, Ages 12+ ([employer]) 12/01/2021 COVID-19, MRNA-LNP, 23-24, P F, 30 MCG/0.3 mL, 12 YRS AND ABOVE, IM ([employer]-Comirnat) 09/18/2023 Covid-19, Mrna, Lnp-s, Pf, B ivalent, 30 Mcg, IM, 12 yrs and above ([employer]) 10/09/2022 Pneumococcal Conjugate Vacc, 13 Valent (Prevnar) [...] Team (Late st Contact Info) Description 11/28/2023 11:15 AM EST Immunization/Injection Hematology/Oncology Treatment, [address] [place] [address] Nurse, Med 4 200 [facility] [place] [address] 11/29/2023 9:15 AM EST Hem/Onc Treatment Hematology/Oncology Treatment, [address] [place] [address] Park, Chair 10 Hem Onc [address] [place] [address] 12/05/2023 6:30 AM EST Anticoagulation Pharmacy Call Center [address] [place] [address] [facility] [address] [place] [address] 12/11/2023 10:30 AM EST Laboratory Laboratory [address] [place] [phone] [place] [address] 12/12/2023 11:00 AM EST Immunization/Injection Hematology/Oncology Treatment, [place] [facility] [address] Nurse, Med 200 [facility] [place] [address] 12/31/2023 1:00 PM EST Cardiac Studies Cardiology [address] [place] [address] [facility] [address] [place] [address] 01/03/2024 10:30 AM EST Imaging Radiology [address] 132 [facility] [place] [address] 01/06/2024 10:30 AM EST Laboratory Laboratory [address] [place] [phone] [address] [place] [address] 01/08/2024 10:00 AM EST Office Visit Hematology/Oncology [facility] [address] [place] [address] Ludwig Louis MD [address] [place] [address] 02/11/2024 11:00 AM EDT Office Visit Family Medicine [address] [place] [phone] Bell Mcqueen MD [address] [place] [address] [place] [address] 08/10/2024 1:40 PM EDT Office Visit Rheumatology [address] [place] [phone] Win Nielsen MD [address] [place] [employer] [place] [address] Pending Results Name Type Priority Associated Diagnoses Date /Time CBC WITH WBC DIFFERENTIAL Lab STAT Urothelial carcinoma of bladder (HCC) 11/27/2023 10:16 AM EST CBC Lab STAT Urothelial carcinoma of bladder (HCC) 11/27/2023 10:16 AM EST DIFFERENTIAL, AUTOMATED Lab STAT Urothelial carcinoma of bladder ([facility]) 11/27/2023 10:16 AM EST Scheduled Procedures Name Priority Associated Diagnoses Date/Ti me ESOPHAGOGASTRODUODENOSCOPY ( EGD), FLEXIBLE, TRANSORAL, DIAGNOSTIC Recall Stark's esophagus with dysplasia Health Maintenance Due Date Last Done Comments Depression Screening 07/12/2021 07/12/2020 CKD PHOS USE SMARTSET 74936 08/21/2022 100 02/2021, 07/12/2020, 03/13/2019, Additional history exists *BISPHONATE OR OTHER ACCEPTABLE MEDICATION NEEDED FOR OSTEOPOROSIS (REFER TO SMARTSET #1146) 10/14/2023 Albumin/Creatinine Ratio 04/22/2024 023, 05/24/2022, 03/26/2022, Additional history exists TSH 10/08/2024 10/08/2023, 1001/2023, 06/19/2023, Additional history exists CKD HGB USE SMARTSET 03301 11/20/202411/20, 11/20/2023, 11/13/2023, Additional history exists Stark's Esophagus Surveilance 02/26/2025 02/26/2022, 02/26/2022, 07/04/2021, Additional history exists DXA Scan 07/05/2025 07/05/2023, 10/19, 11/04/2018, Additional history exists DTaP,Tdap,and Td Vaccines (2 - Td or Tdap) 08/19/2027 08/19/2017, 08/20/2008 Pneumococcal Vaccine: 65+ Years Completed 06/23/2015, 05/14/2013, 04/18/2004 Zoster Vaccines Completed 12/02/2020, 08/15/2020 VITAMIN D LEVEL ONCE IN A LIFETIME-USE SMARTSET# [id number] Completed 04/22/2023, 08/28/2021, 07/14/2015 Influenza Vaccine (FLU [...] this encounter Medical Devices Implanted Type Area Streetcar Repairer Helper Device Identifier Shelf Expiration Date Model / Serial / Lot Power Port 8fr Sngl Lumen Plas - [id number] Implanted:Qty: 1 on 02/22/2022 at [facility] CR BARD : PERIPHERAL VASCULAR [id number] 02/15/2023 [id number] / / [id number] documented as of this encounter Visit Diagnoses Diagnosis Urothelial carcinoma of bladder (HCC) documented in this encounter Advance Directives Latest Code Status on File Code Status Date Activated Date Inactivated Comments Full Code 09/03/2007 7:29 AM 09/03/2007 4:02 PM Care Teams Composite Layup Worker Relationship Specialty Start Date End Date Juancho Romero MD [address] [place] [address] [place] [address] PCP - General Family Medicine 12/27/16 documented as of this encounter
--- OUTSIDE RECORDS SUMMARY | 2024-01-23 21:10 | External Medical Summary | Summary of Care ---
Author Name Unknown Organization [facility] Address [address] [place] [address] Phone [phone] Care Team Providers Care Buckle Strap Drum Operator Name Role Phone Juancho Romero MD Primary Care Provider [phone] Reason for Visit * Reason Comments NEW PATIENT Ectropion RLL Encounter Details Date Type Department Care Team (Late st Contact Info) Description 11/19/2023 12:15 PM EST Office Visit [address] [address] Pablo Casanova, [address] [place], [place] [id number] Senile ectropion of right lower eyelid* Allergies Active Allergy Reactions Criticality Noted Date Comments Penicillins Other (Please comment),Rash High Eyes swell Pollen 05/03/2022 Wound Dressing Adhesive Rash 05/02/2023 Patient reported documented as of this encounter (statuses as of 11/19/2023) Medications Medication Sig Dispensed Refills Start Date [...] albuterol 120 mL 5 11/21/2022 Active Ipratropium Hamilton 0.02 % Inhalation Solution (Atrovent)Indicatio ns:Moderate persistent asthma without complication Inhale 2.5 mL via nebulizer in the morning and 2.5 mL at noon and 2.5 mL in the evening and 2.5 mL before bedtime. Mix with albuterol solution. 75 mL 12 11/21/2022 Active predniSONE 5 MG Oral Tablet (Deltasone) TAKE 1 TABLET BY MOUTH EVERY DAY 90 Tablet 3 12/18/2022 Active Esomeprazole Magnesium 40 MG Oral Capsule Delayed ReleaseIndications: 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 TAKE 1 CAPSULE BY MOUTH TWICE A DAY 180 Capsule 1 2023 Active traMADol HCl 50 MG Oral Tablet [...] Respimat 2.5 MCG/ACT Inhalation Aerosol Solution (Tiotropium [place] Monohydrate)Indicat ions:Moderate persistent asthma without complication INHALE [...] for Sleep. 30 Tablet 0 11/13/2023 Active Levothyroxine Sodium 125 MCG Oral Tablet (Levoxyl)Indication s:Carcinoma of bladder (HCC) TAKE 1 TAB BY MOUTH DAILY FIRST THING IN THE MORNING AT LEAST 30 MIN PRIOR TO BREAKFAST/OTHER MEDS 90 Tablet 0 11/19/2023 Active Hospital, Clinic, or Other Facility [...] as of this encounter (statuses as of 11/19/2023) Active Problems Problem Noted Date Diagnosed Date [...] rinse after steroid. Test performed by Sameer THEATRE ARTS PROFESSOR CPFT Pleural plaque due to asbestos exposure Restrictive lung disease Overview: In Check dial performed to assess inhaler technique: 12/15/19 Name of inhalers Albuterol Pass: Yes at 60 L/min and Advair Pass: Yes at 60 L/min. Encouraged to to take deep breath, use aero chamber, and rinse after steroid. Test performed by Sameer THEATRE ARTS PROFESSOR CPFT Hx of pulmonary embolus 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 Overview: [place] C0-M6 documented as of this encounter (statuses as of 11/19/2023) Resolved Problems Problem Noted Date Diagnosed Date [...] Malignant neoplasm of prostate 09/23/2008 03/27/2018 Overview: Mason grade 3 Atrial flutter 09/02/2007 10/16/2007 Herpes [...] as of this encounter (statuses as of 11/19/2023) Immunizations Name Administration Dates Next Due COVID-19 mRNA, LNP-s, No Pre serve, 2-Dose Series ([employer]) 12/01/2021,01/16/2021,12/26/2020 COVID-19, LNP-s, No Preserve , Ozzy-sucrose, Ages 12+ ([employer]) 12/01/2021 COVID-19, MRNA-LNP, 23-24, P F, 30 MCG/0.3 mL, 12 YRS AND ABOVE, IM ([facility]) 09/18/2023 Covid-19, Mrna, Lnp-s, Pf, B ivalent, 30 Mcg, IM, 12 yrs and above ([employer]) 10/09/2022 Pneumococcal Conjugate Vacc, 13 Valent (Prevnar) [...] encounter Progress Notes * Pablo Casanova, - 11/19/2023 12:31 PM EST Patrick Robles is a 88 year old male who presents for ectropion right eye lower eyelid. Patient's spouse reports today that is since August patient's right eye has been red and irritated. Reports undergoing a Mohs excision of the left cheek with repair that the ectropion on the right side was not visible or present at that time. Spouse reports that after the Mohs surgery the patient did have an ec tropion of the left eye that had gotten better with time while the right side developed. Ophthalmology Past History: cataract extraction both eyes Ophthalmology Family History: none Ophthalmology ROS: Positive for red right eye and no recent significant change in vision,no eye pain, redness, discharge,no diplopia Current Ophthalmic Medications: None EXAM: Base Eye Exam Visual Acuity (Snellen - Linear) Right Left Dist cc 20/25 -1 20/40 -1 Dist ph cc NI Correction: Glasses Pupils Shape React APD Right Round Brisk None Left Round Brisk None Visual Lugo (Counting fingers) Right Left Restrictions Partial outer inferior temporal, superior nasal, inferior nasal deficiencies Partial outer superior temporal, inferior temporal, superior nasal, inferior nasal deficiencies Extraocular Movement Right Left Full Full Neuro/Psych Oriented x3: Yes Slit Lamp and Fundus Exam Slit Lamp Exam Right Left Lids/Lashes ectropion lower eyelid + keratin mechanical ectropion lower eyelid mild Conjunctiva/Sclera White and quiet bulbar White and quiet Cornea inf SPK mild Clear Anterior Chamber Deep and quiet Deep and quiet External photos obtained demonstrating above findings IMPRESSION: 1. 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 Photo today 2. Patient on anticoagulation with the Coumadin clinic and will ask for an INR near to prior to proceeding with surgery of a lateral tarsal strip to the right lower lid. Also discussed with the patient that possibly utilizing some steroid ointment to reverse the keratin prior to procedure it may actually improve his eyelid 3. Photo today 4. R/B/A discussed including but not limited to pain, bleeding, scarring, infection, Loss of vision, loss of eye, need for further surgery, eye drops in the post operative period, the use of regionalor general anesthesia. Pablo Casanova DO documented in this encounter Nursing Notes * Yulisa Loco COA - 11/19/2023 12:10 PM EST External Photography done. * Esme Pozo RN - 11/19/2023 11:39 AM EST Patrick Robles is a 88 year old male who presents for ectropion RLL. Last Visit: Visit date not found (in office), Visit date not found (telemedicine) currently states the RLL has been turned outward since August of 2023, worsening since then. Are you diabetic? No Current Ophthalmic Medications: None Referred by: Dr. Wilder COMPREHENSIVE OCULAR HISTORY Any history in yourself or blood related family of: -Diabetes- Family -Diabetic Retinopathy- No -High Blood Pressure- Family -Heart Disease- Family -Thyroid Disease- Self and Family -Blindness- No -Macular Degeneration- No -Retinal Detachment- No -Glaucoma/Pressure in the Eye- No -Chronic Problem Headaches or Migraines- No -Have you ever had any major surgery or serious injury of or around the eyes- yes (Has skin cancer removed LLL 09/09, Cataract surgery 4+yrs ago) -Are your eyes chronically- N/A -Do you smoke- No Vision, IOP, current eyeglass Rx, pupil check and dilation if done can be found in ophth exam. documented in this encounter Plan of Treatment Upcoming Encounters Date Type Department Care Team (Late st Contact Info) Description 11/20/2023 10:30 AM EST Laboratory Laboratory [address] [place] [phone] [address] [place] [address] 11/21/2023 11:00 AM EST Immunization/Injection Hematology/Oncology Treatment [address] [place] [address] Nurse, Med [address] [place] [address] [place] [address] 11/22/2023 6:30 AM EST Anticoagulation Pharmacy Call Center WB 58-60 [facility] [place] [address] [facility] 58 60 [facility] [place] [address] 11/22/2023 1:15 PM EST Hem/Onc Treatment Hematology/Oncology Treatment, [address] [place] [address] [place], Chair 10 Hem Onc [address] [place] [address] 11/28/2023 10:30 AM EST Laboratory Laboratory [address] [place] [phone] [place] [address] 11/28/2023 11:15 AM EST Immunization/Injection Hematology/Oncology Treatment, [place] [address] [facility] [address] Nurse, Med [address] [place] [address] 11/29/2023 2:00 PM EST Hem[facility] 200 [facility] [place] [address] [place], Chair 7 Hem Onc [facility] 200 [facility] [place] [address] 12/11/2023 10:30 AM EST Laboratory Laboratory [address] [place] [phone] [place] [address] 12/12/2023 11:00 AM EST Immunization/Injection Hematology/Oncology Treatment, [place] 200 [facility] [place] [address] Nurse, Med 4 200 [facility] [place] [address] 12/31/2023 1:00 PM EST Cardiac Studies Cardiology [address] [place] [address] [facility], Pacer [facility] [address] [facility] [place] [address] 01/03/2024 10:30 AM EST Imaging Radiology [address] [facility] [place] [address] 01/06/2024 10:30 AM EST Laboratory Laboratory [address] [place] [phone] [place] [address] 01/08/2024 10:00 AM EST Office Visit Hematology/Oncology [facility] [place] [address] [place] [address] Ludwig Louis MD [address] [place] [address] 02/11/2024 11:00 AM EDT Office Visit Family Medicine [address] [place] [phone] Bell Mcqueen MD [address] [place] [address] [place] [address] 08/10/2024 1:40 PM EDT Office Visit Rheumatology [address] [place] [phone] Win Nielsen MD [address] [place] [address] Scheduled Orders Name Type Priority Associated Diagnoses Orde r Schedule EXTERNAL EYE PHOTOGRAPHY Procedures Routine Senile ectropion of right lower eyelid Ordered: 11/19/2023 Scheduled Procedures Name Priority Associated Diagnoses Date/Ti me ESOPHAGOGASTRODUODENOSCOPY ( EGD), FLEXIBLE, TRANSORAL, DIAGNOSTIC Recall Stark's esophagus with dysplasia Health Maintenance Due Date Last Done Comments Depression Screening 07/12/2021 07/12/2020 CKD PHOS USE SMARTSET 83985 08/21/2022 100 02/2021, 07/12/2020, 03/13/2019, Additional history exists *BISPHONATE OR OTHER ACCEPTABLE MEDICATION NEEDED FOR OSTEOPOROSIS (REFER TO SMARTSET #1146) 10/14/2023 Albumin/Creatinine Ratio 04/22/2024 023, 05/24/2022, 03/26/2022, Additional history exists TSH 10/08/2024 10/08/2023, 100 01/2023, 06/19/2023, Additional history exists CKD HGB USE SMARTSET 01497 11/13/202411/13, 11/13/2023, 11/05/2023, Additional history exists Stark's Esophagus Surveilance 02/26/2025 02/26/2022, 02/26/2022, 07/04/2021, Additional history exists DXA Scan 07/05/2025 07/05/2023, 10/19, 11/04/2018, Additional history exists DTaP,Tdap,and Td Vaccines (2 - Td or Tdap) 08/19/2027 08/19/2017, 08/20/2008 Pneumococcal Vaccine: 65+ Years Completed 06/23/2015, 05/14/2013, 04/18/2004 Zoster Vaccines Completed 12/02/2020, 08/15/2020 VITAMIN D LEVEL ONCE IN A LIFETIME-USE SMARTSET# [id number] Completed 04/22/2023, 08/28/2021, 07/14/2015 Influenza Vaccine (FLU [...] this encounter Medical Devices Implanted Type Area Deep Fat Cook Fry Device Identifier Shelf Expiration Date Model / Serial / Lot Power Port 8fr Sngl Lumen Plas - [id number] Implanted:Qty: 1 on 02/22/2022 at [facility] CR BARD : PERIPHERAL VASCULAR [id number] 02/15/2023 [id number] / / [id number] documented as of this encounter Visit Diagnoses Diagnosis Senile ectropion of right lower eyelid- Primary Senile ectropion documented in this encounter Advance Directives Latest Code Status on File Code Status Date Activated Date Inactivated Comments Full Code 09/03/2007 7:29 AM 09/03/2007 4:02 PM Care Teams Buckle Strap Drum Operator Relationship Specialty Start Date End Date Juancho Romero MD [address] [place] [address] [place] [address] PCP - General Family Medicine 12/27/16 documented as of this encounter
--- OUTSIDE RECORDS SUMMARY | 2024-01-23 21:10 | External Medical Summary ---
Author Name Unknown Address Unknown Organization K01:[facility] [place] - [address] [facility] [place] [address] Laboratory Report Ordering Provider Test Date Status ADRIENNE SALCIDO 11/20/2023 10:48:12 Final Observation Date Value Abnormality Reference (Units ) Status SYNC LEUKOCYTES IN BLOOD BY AUTOMATED COUNT 11/20/2023 10:48:12 4.53 4.00-10.80 (K/uL) Final Segs 11/20/2023 10:48:12 73.6 40.0-75.0 (%) Final Lymphs % 11/20/2023 10:48:12 13.2 Below low normal 18.0-42.0 (%) Final Monos 11/20/2023 10:48:12 9.5 1.0-11.0 (%) Final Eosinophils 11/20/2023 10:48:12 1.5 0.0-6.0 (%) Final Basos 11/20/2023 10:48:12 0.9 0.0-2.0 (%) Final Immature Granulocyte, Percent 11/20/2023 10:48:12 1.3 0.0-2.0 (%) Final Absolute Segs 11/20/2023 10:48:12 3.33 1.80-7.70 (K/uL) Final Lymphs, absolute 11/20/2023 10:48:12 0.60 Below low normal 1.00-4.80 (K/ul) Final Monos, Abs 11/20/2023 10:48:12 0.43 0.00-1.10 (K/uL) Final Eos, Abs 11/20/2023 10:48:12 0.07 0.00-0.70 (K/uL) Final Basos, Abs 11/20/2023 10:48:12 0.04 0.00-0.20 (K/uL) Final Immature Granulocytes, Number 11/20/2023 10:48:12 0.06 0.00-0.20 (K/uL) Final Performing Location [facility] [place] - [facility] [place] [address]
--- OUTSIDE RECORDS SUMMARY | 2024-01-23 21:10 | External Medical Summary | Summary of Care ---
Author Name Unknown Organization [facility] Address [address] [place] [address] Phone [phone] Care Team Providers Care Water Tester Name Role Phone Juancho Romero MD Primary Care Provider Encounter Details Date Type Department Care Team (Late st Contact Info) Description 11/20/2023 Result Scan Unspecified Department Tammie Scruggs, [facility] [address] [place] [address] <No scans attached> Allergies Active Allergy Reactions Criticality Noted Date Comments Penicillins Other (Please comment),Rash High Eyes swell Pollen 05/03/2022 Wound Dressing Adhesive Rash 05/02/2023 Patient reported documented as of this encounter (statuses as of 11/20/2023) Medications Medication Sig Dispensed Refills Start Date [...] albuterol 120 mL 5 11/21/2022 Active Ipratropium [place] 0.02 % Inhalation Solution (Atrovent)Indicatio ns:Moderate persistent [...] Respimat 2.5 MCG/ACT Inhalation Aerosol Solution (Tiotropium [place] Monohydrate)Indicat ions:Moderate persistent asthma without complication INHALE [...] as of this encounter (statuses as of 11/20/2023) Active Problems Problem Noted Date Diagnosed Date [...] rinse after steroid. Test performed by Sameer WATER RESOURCES PROJECT MANAGER CPFT Pleural plaque due to asbestos exposure Restrictive lung disease Overview: In Check dial performed to assess inhaler technique: 12/15/19 Name of inhalers Albuterol Pass: Yes at 60 L/min and Advair Pass: Yes at 60 L/min. Encouraged to to take deep breath, use aero chamber, and rinse after steroid. 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 09/18/2023 Covid-19, Mrna, Lnp-s, Pf, B ivalent, 30 Mcg, IM, 12 yrs and above ([employer] 10/09/2022 Pneumococcal Conjugate Vacc, 13 Valent (Prevnar) [...] Team (Late st Contact Info) Description 11/20/2023 6:15 PM EST Anticoagulation Pharmacy Call Center WB [address] [place] [address] [facility] 58 60 [facility] [place] [address] 11/21/2023 11:00 AM EST Immunization/Injection Hematology/Oncology Treatment, [address] [place] [address] Nurse, Med [address] [place] [address] [place] [address] 11/22/2023 1:15 PM EST Hem/Onc Treatment Hematology/Oncology Treatment, [place] 200 [facility] [place] [address] [place], Chair 10 Hem Onc [address] [place] [address] 11/28/2023 10:30 AM EST Laboratory Laboratory [address] [place] [phone] [place] [address] 11/28/2023 11:15 AM EST Immunization/Injection Hematology/Oncology Treatment, [place] 200 [place] [address] Nurse, Med [address] [place] [address] 11/29/2023 2:00 PM EST Hem/Onc Treatment Hematology/Oncology Treatment, [place] 200 [facility], [place] [address] [place], Chair 7 Hem Onc [address] [place] [address] 12/11/2023 10:30 AM EST Laboratory Laboratory [address] [place] [phone] [address] [place] [address] 12/12/2023 11:00 AM EST Immunization/Injection Hematology/Oncology Treatment, [place] 200 [facility], [place] [address] Nurse, Med 4 200 [facility] [place] [address] 12/31/2023 1:00 PM EST Cardiac Studies Cardiology [address] [place] [address] [address] [facility] 132 [facility] [place] [address] 01/03/2024 10:30 AM EST Imaging Radiology [facility] 1st [facility] 132 [facility] [place] [address] 01/06/2024 10:30 AM EST Laboratory Laboratory [address] [place] [phone] [address] [place] [address] 01/08/2024 10:00 AM EST Office Visit Hematology/Oncology [employer] 200 [facility] [place] [address] Ludwig Louis MD 200 [facility] [place] [address] 02/11/2024 11:00 AM EDT Office Visit Family Medicine [address] [place] [phone] Bell Mcqueen MD [address] [place] [address] [place] [address] 08/10/2024 1:40 PM EDT Office Visit Rheumatology [address] [place] [phone] Win Nielsen MD [address] [place] [address] [place] [address] Scheduled Procedures Name Priority Associated Diagnoses Date/Ti me ESOPHAGOGASTRODUODENOSCOPY ( EGD), FLEXIBLE, TRANSORAL, DIAGNOSTIC Recall Stark's esophagus with dysplasia Health Maintenance Due Date Last Done Comments Depression Screening 07/12/2021 07/12/2020 CKD PHOS USE SMARTSET 09747 08/21/[address] 02/2021, 07/12/2020, 03/13/2019, Additional history exists *BISPHONATE OR OTHER ACCEPTABLE MEDICATION NEEDED FOR OSTEOPOROSIS (REFER TO SMARTSET #1146) 10/14/2023 Albumin/Creatinine Ratio 04/22/2024 023, 05/24/2022, 03/26/2022, Additional history exists TSH 10/08/2024 10/08/2023, 100 01/2023, 06/19/2023, Additional history exists CKD HGB USE SMARTSET 08181 11/13/202411/13, 11/13/2023, 11/05/2023, Additional history exists Stark's Esophagus Surveilance 02/26/2025 02/26/2022, 02/26/2022, 07/04/2021, Additional history exists DXA Scan 07/05/2025 07/05/2023, 10/19, 11/04/2018, Additional history exists DTaP,Tdap,and Td Vaccines (2 - Td or Tdap) 08/19/2027 08/19/2017, 08/20/2008 Pneumococcal Vaccine: 65+ Years Completed 06/23/2015, 05/14/2013, 04/18/2004 Zoster Vaccines Completed 12/02/2020, 08/15/2020 VITAMIN D LEVEL ONCE IN A LIFETIME-USE SMARTSET# [id number] Completed 04/22/2023, 08/28/2021, 07/14/2015 Influenza Vaccine (FLU [...] this encounter Medical Devices Implanted Type Area Aging Room Operator Device Identifier Shelf Expiration Date Model / Serial / Lot Power Port 8fr Sngl Lumen Plas - [id number] Implanted:Qty: 1 on 02/22/2022 at [facility] CR BARD : PERIPHERAL VASCULAR [id number] 02/15/2023 [id number] / / [id number] documented as of this encounter Procedures Procedure Name Priority Date/Time Associated Diagnosis Comments OUTSIDE LAB RESULTS 11/20/2023 documented in this encounter Results * OUTSIDE LAB RESULTS (11/20/2023) 11/20/2023 Tammie Scruggs [facility] LABORATORY documented in this encounter Advance Directives Latest Code Status on File Code Status Date Activated Date Inactivated Comments Full Code 09/03/2007 7:29 AM 09/03/2007 4:02 PM Care Teams Water Tester Relationship Specialty Start Date End Date Juancho Romero MD [address] [place] [address] [place] [phone] PCP - General Family Medicine 12/27/16 documented as of this encounter
--- OUTSIDE RECORDS SUMMARY | 2024-01-23 21:10 | External Medical Summary ---
Author Name Unknown Address Unknown Organization K01:[facility] [place] [facility] [address] [facility] [address] [place] [address] Laboratory Report Ordering Provider Test Date Status ADRIENNE SALCIDO 11/20/2023 10:48:12 Final Observation Date Value Abnormality Reference (Units ) Status WBC, Total 11/20/2023 10:48:12 4.53 4.00-10.80 (K/uL) Final RBC 11/20/2023 10:48:12 3.90 4.50-5.25 (M/uL) Final Hemoglobin 11/20/2023 10:48:12 10.7 Below low normal 14.0-16.8 (g/dL) Final HCT 11/20/2023 10:48:12 38.9 Below low normal 40.0-48.4 (%) Final MCV 11/20/2023 10:48:12 99.7 82.0-99.5 (fL) Final MCH 11/20/2023 10:48:12 27.4 27.0-34.0 (pg) Final MCHC 11/20/2023 10:48:12 27.5 32.0-36.0 (g/dL) Final RDW 11/20/2023 10:48:12 18.3 11.5-15.5 (%) Final Platelets 11/20/2023 10:48:12 122 Below low normal 140-400 (K/uL) Final MPV 11/20/2023 10:48:12 12.5 6.6-11.1 (fL) Final Nucleated erythrocytes/100 leukocytes [Ratio] in Blood by Automated count 11/20/2023 10:48:12 0 <=0 (/100 WBCs) Final Performing Location [facility] [place] [address] [place] [address]
--- OUTSIDE RECORDS SUMMARY | 2024-01-23 21:10 | External Medical Summary | Summary of Care ---
Author Name Unknown Organization [facility] Address [address] [place] [address] Phone [phone] Care Team Providers Care Hand Stripper Name Role Phone Katina Rivas MD Primary Care Provider Reason for Visit * Reason Comments eRx-Medication Refill Encounter Details Date Type Department Care Team (Late st Contact Info) Description 11/18/2023 Refill Family Medicine [address] [phone] Katina Rivas MD [address] [place], [place] [address] [address] 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 Allergies Active Allergy Reactions Criticality Noted Date [...] albuterol 120 mL 5 11/21/2022 Active Ipratropium [place] 0.02 % Inhalation Solution (Atrovent)Indicat ions:Moderate persistent [...] Respimat 2.5 MCG/ACT Inhalation Aerosol Solution (Tiotropium [place] Monohydrate)Indic ations:Moderate persistent asthma without complication INHALE 2 PUFFS BY MOUTH EVERY DAY 12 g 3 04/30/2023 Active Rosuvastatin Calcium 10 MG Oral Tablet (Crestor) TAKE 1 TABLET BY MOUTH EVERY DAY 90 Tablet 1 05/27/2023 Active Warfarin Sodium 5 MG Oral Tablet (Coumadin)Indicat ions:Pulmonary embolism and infarction (HCC) Take 0.5-1 Tablets by mouth every evening. Or take as instructed by the [facility] 90 Tablet 3 08/09/2023 [...] Tablet Extended Release 12 Hour (Humibid [place])Indications:[place] cough Take 1 Tablet by mouth in [...] A DAY 180 Capsule 1 11/19/2023 Active Esomeprazole Magnesium 40 MG Oral Capsule Delayed ReleaseIndication s: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 TAKE 1 CAPSULE BY MOUTH TWICE A DAY 180 Capsule 1 2023 11/19/19 24 Discontinued Hospital, Clinic, or Other [...] and rinse after steroid. Test performed by aSmeer SERVICE DELIVERY ANALYST CPFT Pleural plaque due to asbestos exposure Restrictive lung disease Overview: In Check dial performed to assess inhaler technique: 12/15/19 Name of inhalers Albuterol Pass: Yes at 60 L/min and Advair Pass: Yes at 60 L/min. Encouraged to to take deep breath, use aero chamber, and rinse after steroid. Test performed by Sameer SERVICE DELIVERY ANALYST CPFT Hx of pulmonary embolus 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 Overview: [place] C0-M6 documented as of this encounter (statuses [...] mRNA, LNP-s, No Pre serve, 2-Dose Series (mPATH) 12/01/2021,01/16/2021,12/26/2020 COVID-19, LNP-s, No Preserve , Ozzy-sucrose, Ages 12+ (mPATH) 12/01/2021 COVID-19, MRNA-LNP, 23-24, P F, 30 MCG/0.3 mL, 12 YRS AND ABOVE, IM (SeeClickFix-Comirnat) 09/18/2023 Covid-19, Mrna, Lnp-s, Pf, B ivalent, 30 Mcg, IM, 12 yrs and above (mPATH) 10/09/2022 Pneumococcal Conjugate Vacc, 13 Valent (Prevnar) [...] Notes * Telephone Encounter - Pretty Castellano [facility] - 11/19/2023 3:51 PM ESTSigned Prescriptions: Disp Refills Esomeprazole Magnesium 40 MG Oral Capsule *180 Ca*1 Sig: TAKE 1 CAPSULE BY MOUTH TWICE A DAYAuthorizing Provider: KATINA RIVAS User: PRETTY DALTON-- documented in this encounter Plan of Treatment Upcoming Encounters Date Type Department Care Team (Late st Contact Info) Description 11/20/2023 10:30 AM EST Laboratory Laboratory [address] [place] [phone] [place] [address] 11/21/2023 11:00 AM EST Immunization/Injection Hematology/Oncology Treatment, [place] 200 [facility] [place] [address] Nurse, Med 4 200 [facility] [place] [address] 11/22/2023 6:30 AM EST Anticoagulation Pharmacy Call Center WB [address] [place] [address] Ccps, [facility] [address] 58 60 [facility] [place] [address] 11/22/2023 1:15 PM EST Hem/Onc Treatment Hematology/Oncology Treatment, [address] [place] [address] Marylou, Chair 10 Hem Onc Scenery [address] [place] [address] [place] [address] 11/28/2023 10:30 AM EST Laboratory Laboratory [address] [place] [phone] [address] [place] [address] 11/28/2023 11:15 AM EST Immunization/Injection Hematology/Oncology Treatment, [address] [place] [address] Nurse, Med 4 200 [facility] [place] [address] 11/29/2023 2:00 PM EST Hem/Onc Treatment Hematology/Oncology Treatment, [address] [place] [address] Marylou, Chair 7 Hem Onc Scenery 200 [facility] [place] [address] 12/11/2023 10:30 AM EST Laboratory Laboratory [address] [place] [address] [place] [address] [place] [address] 12/12/2023 11:00 AM EST Immunization/Injection Hematology/Oncology Treatment, [place] [address] [place] [address] Nurse, [facility] [address] [place] [address] 12/31/2023 1:00 PM EST Cardiac Studies Cardiology [address] [place] [address] Og Frazier [facility] 132 [facility] [place] [address] 01/03/2024 10:30 AM EST Imaging Radiology [facility] 1st [facility] 132 [facility] [place] [address] 01/06/2024 10:30 AM EST Laboratory Laboratory [address] [place] [phone] [address] [place] [address] 01/08/2024 10:00 AM EST Office Visit Hematology/Oncology [facility] [address] [place] [address] Ludwig Louis MD [address] [place] [address] 02/11/2024 11:00 AM EDT Office Visit Family Medicine [address] [place] [address] Bell Mcqueen MD [address] [place] [address] [place] [address] 08/10/2024 1:40 PM EDT Office Visit Rheumatology [address] [place] [phone] Win Nielsen MD [address] [facility] [place] [address] Scheduled Procedures Name Priority Associated Diagnoses Date/Ti me ESOPHAGOGASTRODUODENOSCOPY ( EGD), FLEXIBLE, TRANSORAL, DIAGNOSTIC Recall Stark's esophagus with dysplasia Health Maintenance Due Date Last Done Comments Depression Screening 07/12/2021 07/12/2020 CKD PHOS USE SMARTSET 30361 08/21/20220 02/2021, 07/12/2020, 03/13/2019, Additional history exists *BISPHONATE OR OTHER ACCEPTABLE MEDICATION NEEDED FOR OSTEOPOROSIS (REFER TO SMARTSET #1146) 10/14/2023 Albumin/Creatinine Ratio 04/22/2024 023, 05/24/2022, 03/26/2022, Additional history exists TSH 10/08/2024 10/08/2023, 01/2023, 06/19/2023, Additional history exists CKD HGB USE SMARTSET 30581 11/13/202411/13, 11/13/2023, 11/05/2023, Additional history exists Stark's Esophagus Surveilance 02/26/2025 02/26/2022, 02/26/2022, 07/04/2021, Additional history exists DXA Scan 07/05/2025 07/05/2023, 10/19, 11/04/2018, Additional history exists DTaP,Tdap,and Td Vaccines (2 - Td or Tdap) 08/19/2027 08/19/2017, 08/20/2008 Pneumococcal Vaccine: 65+ Years Completed 06/23/2015, 05/14/2013, 04/18/2004 Zoster Vaccines Completed 12/02/2020, 08/15/2020 VITAMIN D LEVEL ONCE IN A LIFETIME-USE SMARTSET# [id number] Completed 04/22/2023, 08/28/2021, 07/14/2015 Influenza Vaccine (FLU [...] this encounter Medical Devices Implanted Type Area Embossing Machine Operator Device Identifier Shelf Expiration Date Model / Serial / Lot Power Port 8fr Sngl Lumen Plas - [id number] Implanted:Qty: 1 on 02/22/2022 at [facility] CR BARD : PERIPHERAL VASCULAR [id number] 02/15/2023 [id number] / / [id number] documented as of this encounter Visit Diagnoses Diagnosis 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 documented in this encounter Advance Directives Latest Code Status on File Code Status Date Activated Date Inactivated Comments Full Code 09/03/2007 7:29 AM 09/03/2007 4:02 PM Care Teams Hand Stripper Relationship Specialty Start Date End Date Katina Rivas MD [address] [place] [address] [place] [address] PCP - General Family Medicine 12/27/16 documented as of this encounter
--- OUTSIDE RECORDS SUMMARY | 2024-01-23 21:10 | External Medical Summary | Summary of Care ---
Author Name Unknown Organization [facility] Address [address] [place] [address] Phone [phone] Care Team Providers Care Dipper And Baker Name Role Phone Juancho Romero MD Primary Care Provider Reason for Visit * Reason Comments Dosage Adjustment Via Phone (anticoag Cl inic) Encounter Details Date Type Department Care Team (Latest Contact Info) Description 11/20/2023 6:15 PM EST Anticoagulation Pharmacy Call Center [address] [place] [address] [facility] 58 [address] [place] [address] Hx of pulmonary embolus*; Longstanding persistent atrial [...] albuterol 120 mL 5 11/21/2022 Active Ipratropium [place] 0.02 % Inhalation Solution (Atrovent)Indicatio ns:Moderate persistent [...] Respimat 2.5 MCG/ACT Inhalation Aerosol Solution (Tiotropium [place] Monohydrate)Indicat ions:Moderate persistent asthma without complication INHALE 2 PUFFS BY MOUTH EVERY DAY 12 g 3 04/30/2023 Active Rosuvastatin Calcium 10 MG Oral Tablet (Crestor) TAKE 1 TABLET BY MOUTH EVERY DAY 90 Tablet 1 05/27/2023 Active Warfarin Sodium 5 MG Oral Tablet (Coumadin)Indicatio ns:Pulmonary embolism and infarction (HCC) Take 0.5-1 Tablets by mouth every evening. Or take as instructed by the [facility] 90 Tablet 3 [...] rinse after steroid. Test performed by Sameer CAR SANDER CPFT Pleural plaque due to asbestos exposure Restrictive lung disease Overview: In Check dial performed to assess inhaler technique: 12/15/19 Name of inhalers Albuterol Pass: Yes at 60 L/min and Advair Pass: Yes at 60 L/min. Encouraged to to take deep breath, use aero chamber, and rinse after steroid. 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 Atrial flutter 09/02/2007 10/16/2007 Herpes simplex virus infection 08/22/2005 04/05/2016 Anal fissure 06/04/2005 10/16/2007 terminal worker current use of ant icoagulant therapy 05/30/2005 [...] mRNA, LNP-s, No Pre serve, 2-Dose Series (Re2you) 12/01/2021,01/16/2021,12/26/2020 COVID-19, LNP-s, No Preserve , Ozzy-sucrose, Ages 12+ (Re2you) 12/01/2021 COVID-19, MRNA-LNP, 23-24, P F, 30 MCG/0.3 mL, 12 YRS AND ABOVE, IM ([place]-Comirnat) 09/18/2023 Covid-19, Mrna, Lnp-s, Pf, B ivalent, 30 Mcg, IM, 12 yrs and above (Re2you) 10/09/2022 Pneumococcal Conjugate Vacc, 13 Valent (Prevnar) [...] as of this encounter Progress Notes * Camille Infante immunopathologist - 11/20/2023 2:46 PM EST Contacts Type Contact Phone/Fax 11/20/2023 02:44 PM EST Phone (Outgoing) Patrick Robles "Rafa" (Self) [phone] (H) Left Message Subjective Advised patient to contact Anticoagulation Clinic if any unusual bruising or bleeding, recent illness, changes in medication, or questions/concerns. PT/INR results, Coumadin dose instructions, and next PT/INR date communicated as noted by Pharmacist: Yes CAMILLE INFANTE immunopathologist 11/20/2023, 2:46 PM * Tammie Scruggs [facility] - 11/20/2023 2:16 PM EST Images from the original note were not included. Coumadin Clinic (region specific) Objective Current Warfarin Dose As of 11/20/2023 Warfarin maintenance plan: 0 mg every Mon; 2.5 mg (5 mg x 0.5) all other days INR Result As of 11/20/2023 INR goal: 2.0-3.0 INR used for dosin.6 (11/20/2023) Assessment & Plan Warfarin Plan As of 11/20/2023 Full warfarin instructions: 11/20: 5 mg; Otherwise 0 mg every Mon; 2.5 mg all other days Next INR check: 12/04/2023 Repeat PT/INR in 2 week(s) Weekly dose: not changed Additional Dosing Information: Description Home handle and vent machine operator to contact patient with dose instructions as noted. Tammie Scruggs RPh 11/20/2023, 2:18 PM documented in this encounter Plan of Treatment Upcoming Encounters Date Type Department Care Team (Late st Contact Info) Description 11/21/2023 11:00 AM EST Immunization/Injecti on Hematology/Oncology [address], [address] [address] Nurse, Med 4 200 [facility] [place] [address] 11/22/2023 1:15 PM EST Hem/Onc Treatment Hematology/Oncology Treatment, [address] [place] [address] Marylou, Chair 10 Hem On[address] [place] [address] 11/28/2023 10:30 AM EST Laboratory Laboratory [address] [place] [phone] [address] [place] [address] 11/28/2023 11:15 AM EST Immunization/Injecti on Hematology/Oncology Treatment, [address] [address] Nurse, Med 4 200 [facility] [place] [address] 11/29/2023 2:00 PM EST Hem/Onc Treatment Hematology/Oncology Treatment, [place] [address] [facility] [place] [address] Park, Chair 7 Hem Onc Scenery [address] [place] [address] 12/11/2023 10:30 AM EST Laboratory Laboratory [address] [place] [phone] [address] [place] [address] 12/12/2023 11:00 AM EST Immunization/Injecti on Hematology/Oncology Treatment, [place] [address] [facility] [place] [address] Nurse, Med 4 [address] [place] [address] 12/31/2023 1:00 PM EST Cardiac Studies Cardiology [address] [place] [address] Og Frazier [facility] 132 [facility] [place] [address] 01/03/2024 10:30 AM EST Imaging Radiology [facility] 1st [facility] 132 [facility] [place] [address] 01/06/2024 10:30 AM EST Laboratory Laboratory [address] [place] [phone] [address] [place] [address] 01/08/2024 10:00 AM EST Office Visit Hematology/Oncology [facility] [place] [address] [place] [address] Ludwig Louis MD [address] [place] [address] 02/11/2024 11:00 AM EDT Office Visit Family Medicine [address] [place] [address] Bell Mcqueen MD [address] [place] [address] [place] [address] 08/10/2024 1:40 PM EDT Office Visit Rheumatology [address] [place] [address] Win Nielsen MD [address] [place] [address] Scheduled Procedures Name Priority Associated Diagnoses Date/Ti me ESOPHAGOGASTRODUODENOSCOPY ( EGD), FLEXIBLE, TRANSORAL, DIAGNOSTIC Recall Stark's esophagus with dysplasia Health Maintenance Due Date Last Done Comments Depression Screening 07/12/2021 07/12/2020 CKD PHOS USE SMARTSET 31826 08/21/2022 100 02/2021, 07/12/2020, 03/13/2019, Additional history exists *BISPHONATE OR OTHER ACCEPTABLE MEDICATION NEEDED FOR OSTEOPOROSIS (REFER TO SMARTSET #1146) 10/14/2023 Albumin/Creatinine Ratio 04/22/2024 023, 05/24/2022, 03/26/2022, Additional history exists TSH 10/08/2024 10/08/2023, 100 01/2023, 06/19/2023, Additional history exists CKD HGB USE SMARTSET 31580 11/13/202411/13, 11/13/2023, 11/05/2023, Additional history exists Stark's Esophagus Surveilance 02/26/2025 02/26/2022, 02/26/2022, 07/04/2021, Additional history exists DXA Scan 07/05/2025 07/05/2023, 10/19, 11/04/2018, Additional history exists DTaP,Tdap,and Td Vaccines (2 - Td or Tdap) 08/19/2027 08/19/2017, 08/20/2008 Pneumococcal Vaccine: 65+ Years Completed 06/23/2015, 05/14/2013, 04/18/2004 Zoster Vaccines Completed 12/02/2020, 08/15/2020 VITAMIN D LEVEL ONCE IN A LIFETIME-USE SMARTSET# [id number] Completed 04/22/2023, 08/28/2021, 07/14/2015 Influenza Vaccine (FLU [...] this encounter Medical Devices Implanted Type Area Food General Manager Device Identifier Shelf Expiration Date Model / Serial / Lot Power Port 8fr Sngl Lumen Plas - [id number] Implanted:Qty: 1 on 02/22/2022 at [facility] CR BARD : PERIPHERAL VASCULAR [id number] 02/15/2023 [id number] / / [id number] documented as of this encounter Procedures Procedure Name Priority Date/Time Associated Diagnosis Comments OUTSIDE LAB-PT/INR Routine 11/20/2023 documented in this encounter Results * OUTSIDE LAB-PT/INR (11/20/2023) INR-OUTSIDE LAB 1.6 HOME FINGERSTIC K DEVICE History Per Patient LABORATORY HOME FINGERSTICK DEVICE documented in this encounter Visit Diagnoses Diagnosis Hx of pulmonary embolus- Primary Personal history of pulmonary embolism Longstanding persistent atrial fibrillation (HCC) documented in this encounter Advance Directives Latest Code Status on File Code Status Date Activated Date Inactivated Comments Full Code 09/03/2007 7:29 AM 09/03/2007 4:02 PM Care Teams Dipper And Baker Relationship Specialty Start Date End Date Juancho Romero MD NPI: [id number] [place] [address] [place] [address] PCP - General Family Medicine 12/27/16 documented as of this encounter
--- OUTSIDE RECORDS SUMMARY | 2024-01-23 21:10 | External Medical Summary | Summary of Care ---
Author Name Unknown Organization [facility] Address [address] [place] [address] Phone [phone] Care Team Providers Care Rock Mason Name Role Phone Juancho Romero MD Primary Care Provider [phone] Reason for Visit * Reason Comments Outpatient Testing Encounter Details Date Type Department Care Team (Late st Contact Info) Description 11/20/2023 10:30 AM EST Laboratory Laboratory [address] [place] [phone] [place] [address] Urothelial carcinoma of bladder (HCC) Allergies Active [...] albuterol 120 mL 5 11/21/2022 Active Ipratropium [place] 0.02 % Inhalation Solution (Atrovent)Indicatio ns:Moderate persistent [...] Respimat 2.5 MCG/ACT Inhalation Aerosol Solution (Tiotropium [place] Monohydrate)Indicat ions:Moderate persistent asthma without complication INHALE [...] rinse after steroid. Test performed by Sameer SUGAR TRUCKER CPFT Pleural plaque due to asbestos exposure Restrictive lung disease Overview: In Check dial performed to assess inhaler technique: 12/15/19 Name of inhalers Albuterol Pass: Yes at 60 L/min and Advair Pass: Yes at 60 L/min. Encouraged to to take deep breath, use aero chamber, and rinse after steroid. Test performed by Sameer SUGAR TRUCKER CPFT Hx of pulmonary embolus 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 Overview: [place] C0-M6 documented as of this encounter (statuses [...] Malignant neoplasm of prostate 09/23/2008 03/27/2018 Overview: [place] grade 3 Atrial flutter 09/02/2007 10/16/2007 Herpes simplex virus infection 08/22/2005 04/05/2016 Anal fissure 06/04/2005 10/16/2007 half-way current use of ant icoagulant therapy 05/30/2005 [...] mRNA, LNP-s, No Pre serve, 2-Dose Series (IPS Group) 12/01/2021,01/16/2021,12/26/2020 COVID-19, LNP-s, No Preserve , Ozzy-sucrose, Ages 12+ (IPS Group) 12/01/2021 COVID-19, MRNA-LNP, 23-24, P F, 30 MCG/0.3 mL, 12 YRS AND ABOVE, IM (Consumr-Comirnaty) 09/18/2023 Covid-19, Mrna, Lnp-s, Pf, B ivalent, 30 Mcg, IM, 12 yrs and above (IPS Group) 10/09/2022 Pneumococcal Conjugate Vacc, 13 Valent (Prevnar) [...] Contact Info) Description 11/21/2023 11:00 AM EST Immunization/Injection Hematology/Oncology Treatment, [place] 200 [facility] [place] [address] Nurse, Med [address] [place] [address] [place] [address] 11/22/2023 6:30 AM EST Anticoagulation Pharmacy Call Center WB 58-60 [facility] [place] [address] [facility] 58 60 [facility] [place] [address] 11/22/2023 1:15 PM EST Hem/Onc Treatment Hematology/Oncology Treatment, [place] 200 [facility] [place] [address] Park, Chair 10 Hem Onc [facility] 200 [facility] [place] [address] 11/28/2023 10:30 AM EST Laboratory Laboratory [address] [place] [phone] [place] [address] 11/28/2023 11:15 AM EST Immunization/Injection Hematology/Oncology Treatment, [place] 200 [facility] [address] Nurse, Med 4 [address] [place] [address] 11/29/2023 2:00 PM EST Hem/Onc Treatment Hematology/Oncology Treatment, [place] 200 [facility] [address] Park, Chair 7 Hem Onc [facility] 200 [facility] [place] [address] 12/11/2023 10:30 AM EST Laboratory Laboratory [address] [place] [address] [place] [address] 12/12/2023 11:00 AM EST Immunization/Injection Hematology/Oncology Treatment, [place] 200 [facility] [address] Nurse, Med 4 [address] [place] [address] 12/31/2023 1:00 PM EST Cardiac Studies Cardiology [address] [place] [address] [facility] 132 [facility] [place] [address] 01/03/2024 10:30 AM EST Imaging Radiology [facility] 1st [facility] 132 [facility] [place] [address] 01/06/2024 10:30 AM EST Laboratory Laboratory [address] [place] [phone] [address] [place] [address] 01/08/2024 10:00 AM EST [facility] [address] [place] [address] Ludwig Louis MD [address] [place] [address] 02/11/2024 11:00 AM EDT Office Visit Family Medicine [address] [place] [phone] Bell Mcqueen MD [address] [place] [address] [place] [address] 08/10/2024 1:40 PM EDT Office Visit Rheumatology [address] [place] [address] Win Nielsen MD [facility] [address] [place], [place] [address] Pending Results Name Type Priority Associated Diagnoses Date /Time CBC WITH WBC DIFFERENTIAL Lab STAT Urothelial carcinoma of bladder (HCC) 11/20/2023 10:48 AM EST CBC Lab STAT Urothelial carcinoma of bladder ([facility]) 11/20/2023 10:48 AM EST DIFFERENTIAL, AUTOMATED Lab STAT Urothelial carcinoma of bladder ([facility]) 11/20/2023 10:48 AM EST Scheduled Procedures Name Priority Associated Diagnoses Date/Ti me ESOPHAGOGASTRODUODENOSCOPY ( EGD), FLEXIBLE, TRANSORAL, DIAGNOSTIC Recall Stark's esophagus with dysplasia Health Maintenance Due Date Last Done Comments Depression Screening 07/12/2021 07/12/2020 CKD PHOS USE SMARTSET 31166 08/21/2022 10/0 02/2021, 07/12/2020, 03/13/2019, Additional history exists *BISPHONATE OR OTHER ACCEPTABLE MEDICATION NEEDED FOR OSTEOPOROSIS (REFER TO SMARTSET #1146) 10/14/2023 Albumin/Creatinine Ratio 04/22/2024 023, 05/24/2022, 03/26/2022, Additional history exists TSH 10/08/2024 10/08/2023, 01/2023, 06/19/2023, Additional history exists CKD HGB USE SMARTSET 46962 11/13/202411/13, 11/13/2023, 11/05/2023, Additional history exists Stark's Esophagus Surveilance 02/26/2025 02/26/2022, 02/26/2022, 07/04/2021, Additional history exists DXA Scan 07/05/2025 07/05/2023, 10/19, 11/04/2018, Additional history exists DTaP,Tdap,and Td Vaccines (2 - Td or Tdap) 08/19/2027 08/19/2017, 08/20/2008 Pneumococcal Vaccine: 65+ Years Completed 06/23/2015, 05/14/2013, 04/18/2004 Zoster Vaccines Completed 12/02/2020, 08/15/2020 VITAMIN D LEVEL ONCE IN A LIFETIME-USE SMARTSET# [id number] Completed 04/22/2023, 08/28/2021, 07/14/2015 Influenza Vaccine (FLU [...] this encounter Medical Devices Implanted Type Area Recovery Coach Device Identifier Shelf Expiration Date Model / Serial / Lot Power Port 8fr Sngl Lumen Plas - [id number] Implanted:Qty: 1 on 02/22/2022 at [facility] CR BARD : PERIPHERAL VASCULAR [id number] 02/15/2023 [id number] / / [id number] documented as of this encounter Visit Diagnoses Diagnosis Urothelial carcinoma of bladder (HCC) documented in this encounter Advance Directives Latest Code Status on File Code Status Date Activated Date Inactivated Comments Full Code 09/03/2007 7:29 AM 09/03/2007 4:02 PM Care Teams Rock Mason Relationship Specialty Start Date End Date Juancho Romero MD [address] [place] [address] [place] [address] PCP - General Family Medicine 12/27/16 documented as of this encounter
--- OUTSIDE RECORDS SUMMARY | 2024-01-23 21:10 | External Medical Summary | Summary of Care ---
Author Name Unknown Organization [facility] Address [address] [place] [address] Phone [phone] Care Team Providers Care Border Patrol Agent Name Role Phone Juancho Romero MD Primary Care Provider Reason for Visit * Reason Onset Date Comments Pre Cert/Prior Auth 11/20/2023 Encounter Details Date Type Department Care Team (Late st Contact Info) Description 11/20/2023 Telephone [place] [phone] Pablo Casanova, [address] [place] [address] Pre Cert/Prior Auth Allergies Active Allergy Reactions Criticality Noted Date [...] albuterol 120 mL 5 11/21/2022 Active Ipratropium Bradford 0.02 % Inhalation Solution (Atrovent)Indicatio ns:Moderate persistent [...] Respimat 2.5 MCG/ACT Inhalation Aerosol Solution (Tiotropium Bradford Monohydrate)Indicat ions:Moderate persistent asthma without complication INHALE [...] [facility] 90 Tablet 3 08/09/2023 [...] rinse after steroid. Test performed by Sameer PRESCRIPTIONIST CPFT Pleural plaque due to asbestos exposure Restrictive lung disease Overview: In Check dial performed to assess inhaler technique: 12/15/19 Name of inhalers Albuterol Pass: Yes at 60 L/min and Advair Pass: Yes at 60 L/min. Encouraged to to take deep breath, use aero chamber, and rinse after steroid. Test performed by Sameer PRESCRIPTIONIST CPFT Hx of pulmonary embolus 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 Overview: [place] C0-M6 documented as of this encounter (statuses [...] mRNA, LNP-s, No Pre serve, 2-Dose Series ([employer]) 12/01/2021,01/16/2021,12/26/2020 COVID-19, LNP-s, No Preserve , Ozzy-sucrose, Ages 12+ ([employer]) 12/01/2021 COVID-19, MRNA-LNP, 23-24, P F, 30 MCG/0.3 mL, 12 YRS AND ABOVE, IM ([employer]Comirnat[employer]) 09/18/2023 Covid-19, Mrna, Lnp-s, Pf, B ivalent, 30 Mcg, IM, 12 yrs and above ([employer]) 10/09/2022 Pneumococcal Conjugate Vacc, 13 Valent (Prevnar) [...] encounter Miscellaneous Notes * Telephone Encounter - Molly Tee OSA - 11/20/2023 10:34 AM EST Submitted clinic notes, photos, HVF to insurance company via electronic. Per [employer], no prior auth is required. See scanned documents. ZULEMA Hill 11/20/2023 10:35 AM documented in this encounter Plan of Treatment Upcoming Encounters Date Type Department Care Team (Late st Contact Info) Description 11/21/2023 11:00 AM EST Immunization/Injection Hematology/Oncology Treatment, [place] [address] [place] [address] Nurse, Med [address] [facility] [place] [address] 11/22/2023 6:30 AM EST Anticoagulation Pharmacy Call Center WB 58[address]60 [facility] [place] [address] [facility] 58 60 [facility] [place] [address] 11/22/2023 1:15 PM EST Hem/Onc Treatment Hematology/Oncology Treatment, [address] [place] [address] Marylou, Chair 10 Hem Onc Scenery 200 [facility] [place] [address] 11/28/2023 10:30 AM EST Laboratory Laboratory [address] [place] [phone] [place] [address] 11/28/2023 11:15 AM EST Immunization/Injection Hematology/Oncology Treatment, [address] [address] Nurse, Med [address] [place] [address] 11/29/2023 2:00 PM EST Hem/Onc Treatment Hematology/Oncology Treatment, [address] [place] [address] Marylou, Chair 7 Hem Onc Scenery 200 [facility] [place] [address] 12/11/2023 10:30 AM EST Laboratory Laboratory [address] [place] [address] [place] [address] 12/12/2023 11:00 AM EST Immunization/Injection Hematology/Oncology Treatment, [address] [address] Nurse, Med [address] [place] [address] 12/31/2023 1:00 PM EST Cardiac Studies Cardiology [address] [place] [address] [place], Pacer [facility] [address] [place] [address] 01/03/2024 10:30 AM EST Imaging Radiology [facility] [address] [place] [address] 01/06/2024 10:30 AM EST Laboratory Laboratory [address] [place] [address] [place] [address] 01/08/2024 10:00 AM EST Office Visit Hematology/Oncology [facility] [address] [place] [address] Ludwig Louis MD [address] [place] [address] 02/11/2024 11:00 AM EDT Office Visit Family Medicine [address] [place] [phone] Bell Mcqueen MD [address] [place] [address] [place] [address] 08/10/2024 1:40 PM EDT Office Visit Rheumatology [address] [place] [address] Win Nielsen MD [address] [place] [address] [place] [address] Scheduled Procedures Name Priority Associated Diagnoses Date/Ti me ESOPHAGOGASTRODUODENOSCOPY ( EGD), FLEXIBLE, TRANSORAL, DIAGNOSTIC Recall Stark's esophagus with dysplasia Health Maintenance Due Date Last Done Comments Depression Screening 07/12/2021 07/12/2020 CKD PHOS USE SMARTSET 04970 08/21/2022 10/0 02/2021, 07/12/2020, 03/13/2019, Additional history exists *BISPHONATE OR OTHER ACCEPTABLE MEDICATION NEEDED FOR OSTEOPOROSIS (REFER TO SMARTSET #1146) 10/14/2023 Albumin/Creatinine Ratio 04/22/2024 023, 05/24/2022, 03/26/2022, Additional history exists TSH 10/08/2024 10/08/2023, 10/0 01/2023, 06/19/2023, Additional history exists CKD HGB USE SMARTSET 57213 11/13/202411/13, 11/13/2023, 11/05/2023, Additional history exists Stark's Esophagus Surveilance 02/26/2025 02/26/2022, 02/26/2022, 07/04/2021, Additional history exists DXA Scan 07/05/2025 07/05/2023, 10/19, 11/04/2018, Additional history exists DTaP,Tdap,and Td Vaccines (2 - Td or Tdap) 08/19/2027 08/19/2017, 08/20/2008 Pneumococcal Vaccine: 65+ Years Completed 06/23/2015, 05/14/2013, 04/18/2004 Zoster Vaccines Completed 12/02/2020, 08/15/2020 VITAMIN D LEVEL ONCE IN A LIFETIME-USE SMARTSET# [id number] Completed 04/22/2023, 08/28/2021, 07/14/2015 Influenza Vaccine (FLU [...] this encounter Medical Devices Implanted Type Area Power Switchboard Operator Device Identifier Shelf Expiration Date Model / Serial / Lot Power Port 8fr Sngl Lumen Plas - [id number] Implanted:Qty: 1 on 02/22/2022 at [facility] : PERIPHERAL VASCULAR [id number] 02/15/2023 [id number] / / [id number] documented as of this encounter Advance Directives Latest Code Status on File Code Status Date Activated Date Inactivated Comments Full Code 09/03/2007 7:29 AM 09/03/2007 4:02 PM Care Teams Border Patrol Agent Relationship Specialty Start Date End Date Juancho Romero MD [address] [place] [address] [place] [phone] PCP - General Family Medicine 12/27/16 documented as of this encounter
--- OUTSIDE RECORDS SUMMARY | 2024-01-23 21:10 | External Medical Summary | Summary of Care ---
Author Name Unknown Organization [facility] Address [address] [place] [address] Phone [phone] Care Team Providers Care Infrastructure Security Architect Name Role Phone Juancho Romero MD Primary Care Provider [phone] Reason for Visit * Reason Comments eRx-Medication Refill Encounter Details Date Type Department Care Team (Late st Contact Info) Description 11/18/2023 Refill Family Medicine [address] [phone] Bell Mcqueen MD [address] [place] [address] [place] [address] Acute cough Allergies Active Allergy Reactions Criticality [...] albuterol 120 mL 5 11/21/2022 Active Ipratropium Ashley 0.02 % Inhalation Solution (Atrovent)Indicat ions:Moderate persistent [...] Respimat 2.5 MCG/ACT Inhalation Aerosol Solution (Tiotropium Ashley Monohydrate)Indic ations:Moderate persistent asthma without complication INHALE 2 PUFFS BY MOUTH EVERY DAY 12 g 3 04/30/2023 Active Rosuvastatin Calcium 10 MG Oral Tablet (Crestor) TAKE 1 TABLET BY MOUTH EVERY DAY 90 Tablet 1 05/27/2023 Active Warfarin Sodium 5 MG Oral Tablet (Coumadin)Indicat ions:Pulmonary embolism and infarction (HCC) Take 0.5-1 Tablets by mouth every evening. Or take as instructed by the [facility] 90 Tablet 3 [...] A DAY 180 Capsule 1 11/19/2023 Active Fluticasone Propionate 50 MCG/ACT Nasal Suspension (Flonase)Indicati ons:Acute cough Administer 1 Edwall into each nostril in the morning and 1 Edwall in the evening. Do all this for [...] rinse after steroid. Test performed by Sameer FRACTIONATING STILL OPERATOR CPFT Pleural plaque due to asbestos exposure Restrictive lung disease Overview: In Check dial performed to assess inhaler technique: 12/15/19 Name of inhalers Albuterol Pass: Yes at 60 L/min and Advair Pass: Yes at 60 L/min. Encouraged to to take deep breath, use aero chamber, and rinse after steroid. Test performed by Sameer FRACTIONATING STILL OPERATOR CPFT Hx of pulmonary embolus 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 Overview: [place] C0-M6 documented as of this encounter (statuses [...] mRNA, LNP-s, No Pre serve, 2-Dose Series ([email or web address]) 12/01/2021,01/16/2021,12/26/2020 COVID-19, LNP-s, No Preserve , Ozzy-sucrose, Ages 12+ ([employer]) 12/01/2021 COVID-19, MRNA-LNP, 23-24, P F, 30 MCG/0.3 mL, 12 YRS AND ABOVE, IM ([facility]) 09/18/2023 Covid-19, Mrna, Lnp-s, Pf, B ivalent, 30 Mcg, IM, 12 yrs and above ([employer]) 10/09/2022 Pneumococcal Conjugate Vacc, 13 Valent (Prevnar) [...] encounter Miscellaneous Notes * Telephone Encounter - David Hu MD - 11/19/2023 4:08 PM EST Signed Prescriptions: Disp Refills Fluticasone Propionate 50 MCG/ACT Nasal Ocampo*16 mL 1 Sig: ADMINISTER 1 SPRAY INTO EACH NOSTRIL IN THE MORNING AND 1 SPRAY IN THE EVENING FOR 5 DAYS Authorizing Provider: DAVID HU * Telephone Encounter - David Castellano, [facility] - 11/19/2023 3:50 PM ESTPending Prescriptions: Disp Refills Fluticasone Propionate 50 MCG/ACT Nasal Ocampo*16 mL 1 Sig: ADMINISTER 1 SPRAY INTO EACH NOSTRIL IN THE MORNING AND 1 SPRAY IN THE EVENING FOR 5 DAYS * Telephone Encounter - David Castellano, [facility] - 11/19/2023 3:50 PM EST Unable to authorize medication refills for pended medication(s) at this time. Part of the protocol criteria used for refill authorization was not satisfied. Rx last prescribed for an acute issue, unsure if pt is to continue as needed. Please approve if appropriate. Thank You, David Serrano [facility] Clinical Pharmacist [facility] ([facility]) (formerly Telepharmacy) 11/19/2023, 3:50 PM * Telephone Encounter - David Castellano [facility] - 11/19/2023 3:48 PM EST Pending Prescriptions: Disp Refills Fluticasone Propionate 50 MCG/ACT Nasal S*16 mL Sig: ADMINISTER 1 SPRAY INTO EACH NOSTRIL IN THE MORNING AND 1 SPRAY IN THE EVENING FOR 5 DAYS Last Visit: 11/04/2023 (in office), 08/28/2022 (telemedicine) Next Visit: 02/11/2024 If no future appointments scheduled, and last appointment is greater than a year ago, please schedule patient for a follow-up appointment Last date the medication was ordered: 11/04/23 Pharmacy: [id number] [address]- [place] Is this request for a controlled substance? [...] Description 11/20/2023 10:30 AM EST Laboratory Laboratory [address] [place] [phone] [place] [address] 11/21/2023 11:00 AM EST Immunization/Injection Hematology/Oncology Treatment, [place] [address] [place] [address] Nurse, Med 4 [address] [facility] [address] 11/22/2023 6:30 AM EST Anticoagulation Pharmacy Call Center WB [address] Public [place] [address] [facility] 58 60 [facility] [place] [address] 11/22/2023 1:15 PM EST Hem/Onc Treatment Hematology/Oncology Treatment, [place] 200 [facility] [place] [address] Marylou, Chair 10 Hem Onc Scenery 200 [facility] [place] [address] 11/28/2023 10:30 AM EST Laboratory Laboratory [address] [place] [phone] [address] [place] [address] 11/28/2023 11:15 AM EST Immunization/Injection Hematology/Oncology Treatment, [place] 200 [facility] [place] [address] Nurse, Med 4 200 [facility] [place] [address] 11/29/2023 2:00 PM EST Hem/Onc Treatment Hematology/Oncology Treatment, [place] 200 [facility] [place] [address] Marylou, Chair 7 Hem Onc Scenery 200 [facility] [place] [address] 12/11/2023 10:30 AM EST Laboratory Laboratory [address] [place] [phone] [place] [address] 12/12/2023 11:00 AM EST Immunization/Injection Hematology/Oncology Treatment, [place] 200 [facility] [place] [address] Nurse, Med [address] [place] [address] 12/31/2023 1:00 PM EST Cardiac Studies Cardiology [address] [place] [address] [facility] [address] [place] [address] 01/03/2024 10:30 AM EST Imaging Radiology [address] [place] [address] 01/06/2024 10:30 AM EST Laboratory Laboratory [address] [place] [phone] [place] [address] 01/08/2024 10:00 AM EST Office Visit Hematology/Oncology [facility] [place] [address] [place] [address] Ludwig Louis MD [address] [place] [address] 02/11/2024 11:00 AM EDT Office Visit Family Medicine [address] [place] [phone] Bell Mcqueen MD [address] [place] [address] [place] [address] 08/10/2024 1:40 PM EDT Office Visit Rheumatology [address] [place] [address] Win Nielsen MD [address] [place] [address] [place] [address] Scheduled Procedures Name Priority Associated Diagnoses Date/Ti me ESOPHAGOGASTRODUODENOSCOPY ( EGD), FLEXIBLE, TRANSORAL, DIAGNOSTIC Recall Stark's esophagus with dysplasia Health Maintenance Due Date Last Done Comments Depression Screening 07/12/2021 07/12/2020 CKD PHOS USE SMARTSET 05040 08/21/2022 100 02/2021, 07/12/2020, 03/13/2019, Additional history exists *BISPHONATE OR OTHER ACCEPTABLE MEDICATION NEEDED FOR OSTEOPOROSIS (REFER TO SMARTSET #1146) 10/14/2023 Albumin/Creatinine Ratio 04/22/2024 023, 05/24/2022, 03/26/2022, Additional history exists TSH 10/08/2024 10/08/2023, 100 01/2023, 06/19/2023, Additional history exists CKD HGB USE SMARTSET 81110 11/13/202411/13, 11/13/2023, 11/05/2023, Additional history exists Stark's Esophagus Surveilance 02/26/2025 02/26/2022, 02/26/2022, 07/04/2021, Additional history exists DXA Scan 07/05/2025 07/05/2023, 10/19, 11/04/2018, Additional history exists DTaP,Tdap,and Td Vaccines (2 - Td or Tdap) 08/19/2027 08/19/2017, 08/20/2008 Pneumococcal Vaccine: 65+ Years Completed 06/23/2015, 05/14/2013, 04/18/2004 Zoster Vaccines Completed 12/02/2020, 08/15/2020 VITAMIN D LEVEL ONCE IN A LIFETIME-USE SMARTSET# [id number] Completed 04/22/2023, 08/28/2021, 07/14/2015 Influenza Vaccine (FLU [...] this encounter Medical Devices Implanted Type Area Actuarial Assistant Device Identifier Shelf Expiration Date Model / Serial / Lot Power Port 8fr Sngl Lumen Plas - [id number] Implanted:Qty: 1 on 02/22/2022 at [facility] : PERIPHERAL VASCULAR [id number] 02/15/2023 [id number] / / [id number] documented as of this encounter Visit Diagnoses Diagnosis Acute cough documented in this encounter Advance Directives Latest Code Status on File Code Status Date Activated Date Inactivated Comments Full Code 09/03/2007 7:29 AM 09/03/2007 4:02 PM Care Teams Infrastructure Security Architect Relationship Specialty Start Date End Date Juancho Romero MD [address] [place] [address] [place] [address] PCP - General Family Medicine 12/27/16 documented as of this encounter
--- OUTSIDE RECORDS SUMMARY | 2024-01-23 21:11 | External Medical Summary | Summary of Care ---
Author Name Unknown Organization [facility] Address [address] [place] [address] Phone [phone] Care Team Providers Care Sulfide Head Operator Name Role Phone Juancho Romero MD Primary Care Provider Reason for Visit * Reason Comments IV Therapy Venofer. Encounter Details Date Type Department Care Team (Latest Contact Info) Description 11/15/2023 1:30 PM EST Hem/Onc Treatment Hematology/Oncology Treatment, [address] [address] Marylou, Chair 1 Hem Onc [address] [address] Anemia of chronic disease*; Carcinoma of bladder (HCC); H/O mitral valve repair; Chronic kidney disease, stage 3b (HCC) Allergies Active Allergy Reactions Criticality Noted Date Comments Penicillins Other (Please comment),Rash High Eyes swell Pollen 05/03/2022 Wound Dressing Adhesive Rash 05/02/2023 Patient reported documented as of this encounter (statuses as of 11/15/2023) Medications Medication Sig Dispensed Refills Start Date [...] albuterol 120 mL 5 11/21/2022 Active Ipratropium [place] 0.02 % Inhalation Solution (Atrovent)Indicatio ns:Moderate persistent [...] Respimat 2.5 MCG/ACT Inhalation Aerosol Solution (Tiotropium [place] Monohydrate)Indicat ions:Moderate persistent asthma without complication INHALE 2 PUFFS BY MOUTH EVERY DAY 12 g 3 04/30/2023 Active Rosuvastatin Calcium 10 MG Oral Tablet (Crestor) TAKE 1 TABLET BY MOUTH EVERY DAY 90 Tablet 1 05/27/2023 Active Warfarin Sodium 5 MG Oral Tablet (Coumadin)Indicatio ns:Pulmonary embolism and infarction (HCC) Take 0.5-1 Tablets by mouth every evening. 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 45 Tablet 3 08/14/2023 Active Levothyroxine Sodium 125 MCG Oral Tablet (Levoxyl)Indication s:Carcinoma of bladder (HCC) TAKE 1 TAB BY MOUTH DAILY FIRST THING IN THE MORNING AT LEAST 30 MIN PRIOR TO BREAKFAST/OTHER MEDS 90 Tablet 0 08/26/2023 Active Furosemide 40 MG Oral Tablet (Lasix)Indications: [...] for Sleep. 30 Tablet 0 11/13/2023 Active Hospital, Clinic, or Other Facility Administered [...] as of this encounter (statuses as of 11/15/2023) Active Problems Problem Noted Date Diagnosed Date [...] rinse after steroid. 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 Encouraged to to take deep breath, use aero chamber, and rinse after steroid. Test performed by Sameer SLATE SPLITTER CPFT Hx of pulmonary embolus 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 Overview: [place] C0-M6 documented as of this encounter (statuses as of 11/15/2023) Resolved Problems Problem Noted Date Diagnosed Date [...] Aortic valve disorder 2006 Esophagitis 09/26/2017 MAL SALVADRO SIGMOID COLON 2013 Aortic valve disorder 2008 Mitral valve disorder 2008 Nonrheumatic tricuspid valve disorder 10/16/2007 CALCIF TENDINITIS SHLDER Cataract 09/08/2014 Hypertensive heart/kidney di shirlene w/chronic kidney disease stage III 09/29/2020 Overview: Per CKD protocol documented as of this encounter (statuses as of 11/15/2023) Immunizations Name Administration Dates Next Due COVID-19 mRNA, LNP-s, No Pre serve, 2-Dose Series (VMob) 12/01/2021,01/16/2021,12/26/2020 COVID-19, LNP-s, No Preserve , Ozzy-sucrose, Ages 12+ (VMob) 12/01/2021 COVID-19, MRNA-LNP, 23-24, P F, 30 MCG/0.3 mL, 12 YRS AND ABOVE, IM ([email or web address]) 09/18/2023 Covid-19, Mrna, Lnp-s, Pf, B ivalent, 30 Mcg, IM, 12 yrs and above (VMob) 10/09/2022 Pneumococcal Conjugate Vacc, 13 Valent (Prevnar) [...] Team (Late st Contact Info) Description 11/19/2023 6:30 AM EST [phone] [address] [facility] [address] 11/19/2023 12:15 PM EST Office Visit [facility] Eye [address] [address] Pablo Casanova, [address] [place] [address] 11/20/2023 10:30 AM EST Laboratory Laboratory [address] [place] [phone] [address] [place] [address] 11/21/2023 11:00 AM EST Immunization/Injection [facility]emat[facility] [place] [facility] [address] [facility], Med 4 200 [facility] [place] [address] 11/22/2023 1:15 PM EST Hem/Onc Treatment [facility]emat[facility]cology [facility], [place] [facility] [address] Marylou, Chair 10 Hem Onc [facility] [place] [address] 11/28/2023 10:30 AM EST Laboratory Laboratory [address] [place] [phone] [place] [address] 11/28/2023 11:15 AM EST Immunization/Injection Hematology/Oncology Treatment, [place] [facility], [place] [address] Nurse, Med 4 200 [facility] [place] [address] 11/29/2023 2:00 PM EST Hem/Onc Treatment Hematology/Oncology Treatment, [place] [facility], [place] [address] Park, Chair 7 Hem Onc [facility] [address] [facility] [place] [address] 12/11/2023 10:30 AM EST Laboratory Laboratory [address] [place] [phone] [place] [address] 12/12/2023 11:00 AM EST Immunization/Injection Hematology/Oncology Treatment, [place] [facility], [place] [address] Nurse, Med 4 200 [facility] [place] [address] 12/31/2023 1:00 PM EST Cardiac Studies Cardiology [address] [place] [address] [facility] [address] [facility] [place] [address] 01/03/2024 10:30 AM EST Imaging Radiology [facility] 1st [facility] [address] [facility] [place] [address] 01/06/2024 10:30 AM EST Laboratory Laboratory [address] [place] [phone] [place] [address] 01/08/2024 10:00 AM EST Office Visit Hematology/Oncology [employer] [facility] [place] [address] Ludwig Louis MD [address] [place] [address] 02/11/2024 11:00 AM EDT Office Visit Family Medicine [address] [place] [phone] Bell Mcqueen MD [address] [place] [address] [place] [address] 08/10/2024 1:40 PM EDT Office Visit Rheumatology [address] [place] [phone] Win Nielsen MD [facility] [place], [place] [address] Scheduled Procedures Name Priority Associated Diagnoses Date/Ti me ESOPHAGOGASTRODUODENOSCOPY ( EGD), FLEXIBLE, TRANSORAL, DIAGNOSTIC Recall Stark's esophagus with dysplasia Health Maintenance Due Date Last Done Comments Depression Screening 07/12/2021 07/12/2020 CKD PHOS USE SMARTSET 23029 08/21/20220 02/2021, 07/12/2020, 03/13/2019, Additional history exists *BISPHONATE OR OTHER ACCEPTABLE MEDICATION NEEDED FOR OSTEOPOROSIS (REFER TO SMARTSET #1146) 10/14/2023 Albumin/Creatinine Ratio 04/22/20242 023, 05/24/2022, 03/26/2022, Additional history exists TSH 10/08/2024 10/08/2023, 0 01/2023, 06/19/2023, Additional history exists CKD HGB USE SMARTSET 76561 11/13/202411/13, 11/13/2023, 11/05/2023, Additional history exists Stark's Esophagus Surveilance 02/26/2025 02/26/2022, 02/26/2022, 07/04/2021, Additional history exists DXA Scan 07/05/2025 07/05/2023, 10/19, 11/04/2018, Additional history exists DTaP,Tdap,and Td Vaccines (2 - Td or Tdap) 08/19/2027 08/19/2017, 08/20/2008 Pneumococcal Vaccine: 65+ Years Completed 06/23/2015, 05/14/2013, 04/18/2004 Zoster Vaccines Completed 12/02/2020, 08/15/2020 VITAMIN D LEVEL ONCE IN A LIFETIME-USE SMARTSET# [id number] Completed 04/22/2023, 08/28/2021, 07/14/2015 Influenza Vaccine (FLU [...] this encounter Medical Devices Implanted Type Area Gelatin Powder Mixer Device Identifier Shelf Expiration Date Model / Serial / Lot Power Port 8fr Sngl Lumen Plas - [id number] Implanted:Qty: 1 on 02/22/2022 at [facility] CR BARD : PERIPHERAL VASCULAR [id number] 02/15/2023 [id number] / / [id number] documented as of this encounter Visit Diagnoses [...] ONCE PRN Other, Hypersensitivity Reaction, Starting on Sat11/15/23 at 1328, Until 11/16/23 at 1327, For 24 hours EPINEPHrine 1 MG/ML inj 0.3 mg 0.3 mg, Intramuscular, ONCE PRN Other, Hypersensitivity Reaction or Anaphylaxis, Starting on Sat11/15/23 at 1328, Until 11/16/23 at 1327, For 24 hours hEParin 100 UNIT/ML Lock Flush inj 500 Units 500 Units (5 mL), IV Lock, PRN Other, IV Flush, Starting on Sat11/15/23 at 1328, Until 11/16/23 at 1327, For 24 hours, Do not flush if lock, PICC, or central line not in place; IV infusing or unable to flush. Given 11/15/2023 3:14 PM EST 500 Units Hydrocortisone Sod Suc (PF) (Solu-Cortef) inj 100 mg 100 mg, IV Push, ONCE PRN Other, Hypersensitivity Reaction, Starting on Sat11/15/23 at 1328, Until 11/16/23 at 1327, For 24 hours NSS infusion 500 mL, Intravenous, at 50 mL/hr, CONTINUOUS, Starting on Sat11/15/23 at 1430, Until 11/16/23 at 0029 Start Infusion 11/15/2023 1:40 PM EST 500 mL 50 mL/hr oxygen GAS Inhalation, OXYGEN, First dose on Sat11/15/23 at 1600, Until Discontinued, Device/Managed by: Low [...] Flush, Starting on Sat11/15/23 at 1328, Until 11/16/23 at 1327, For 24 hours, Do not flush if lock, PICC, or central line not in place; IV infusing or unable to flush. Given 11/15/2023 3:14 PM EST 10 mL Inactive Administered Medications - up to 3 most recent administrations Medication Order MAR Action Action Date Dose Rate Site Iron Sucrose (Venofer) 300 mg in NSS 250 mL ivpb 300 mg, IV Piggyback, ONCE, 1 dose, On Sat11/15/23 at 1500, Administer over 90 Minutes Start Infusion 11/15/2023 1:40 PM EST 300 mg 166.67 mL/hr documented in this encounter Advance Directives Latest Code Status on File Code Status Date Activated Date Inactivated Comments Full Code 09/03/2007 7:29 AM 09/03/2007 4:02 PM Care Teams Sulfide Head Operator Relationship Specialty Start Date End Date Juancho Romero MD [address] [place] [address] [place] [phone] PCP - General Family Medicine 12/27/16 documented as of this encounter
--- OUTSIDE RECORDS SUMMARY | 2024-01-23 21:11 | External Medical Summary | Summary of Care ---
Author Name Unknown Organization [facility] Address [address] [place] [address] Phone [phone] Care Team Providers Care Implementation Project Coordinator Name Role Phone Juancho Romero MD Primary Care Provider [phone] Reason for Visit * Reason Comments Outpatient Testing Encounter Details Date Type Department Care Team (Late st Contact Info) Description 11/13/2023 10:30 AM EST Laboratory Laboratory [address] [place] [phone] [place] [address] Urothelial carcinoma of bladder (HCC) Allergies Active Allergy Reactions Criticality Noted Date Comments Penicillins Other (Please comment),Rash High Eyes swell Pollen 05/03/2022 Wound Dressing Adhesive Rash 05/02/2023 Patient reported documented as of this encounter (statuses as of 11/13/2023) Medications Medication Sig Dispensed Refills Start Date [...] albuterol 120 mL 5 11/21/2022 Active Ipratropium [place] 0.02 % Inhalation Solution (Atrovent)Indicatio ns:Moderate persistent [...] Respimat 2.5 MCG/ACT Inhalation Aerosol Solution (Tiotropium [place] Monohydrate)Indicat ions:Moderate persistent asthma without complication INHALE [...] as of this encounter (statuses as of 11/13/2023) Active Problems Problem Noted Date Diagnosed Date [...] rinse after steroid. Test performed by Sameer LIFE SKILLS INSTRUCTOR CPFT Pleural plaque due to asbestos exposure Restrictive lung disease Overview: In Check dial performed to assess inhaler technique: 12/15/19 Name of inhalers Albuterol Pass: Yes at 60 L/min and Advair Pass: Yes at 60 L/min. Encouraged to to take deep breath, use aero chamber, and rinse after steroid. 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 Overview: [place] C0-M6 documented as of this encounter (statuses as of 11/13/2023) Resolved Problems Problem Noted Date Diagnosed Date [...] as of this encounter (statuses as of 11/13/2023) Immunizations Name Administration Dates Next Due COVID-19 mRNA, LNP-s, No Pre serve, 2-Dose Series ([employer]) 12/01/2021,01/16/2021,12/26/2020 COVID-19, LNP-s, No Preserve , Ozzy-sucrose, Ages 12+ ([employer]) 12/01/2021 COVID-19, MRNA-LNP, 23-24, P F, 30 MCG/0.3 mL, 12 YRS AND ABOVE, IM ([facility]) 09/18/2023 Covid-19, Mrna, Lnp-s, Pf, B ivalent, 30 Mcg, IM, 12 yrs and above ([employer]) 10/09/2022 Pneumococcal Conjugate Vacc, 13 Valent (Prevnar) [...] Care Team (Late st Contact Info) Description 11/14/2023 11:15 AM EST Immunization/Injection Hematology/Oncology Treatment, [address] [place] [address] Nurse, Med [address] [place] [address] [place] [address] 11/15/2023 1:30 PM EST Hem/Onc Treatment Hematology/Oncology Treatment, [address] [place] [address] Park, Chair 1 Hem Onc [address] [address] 11/19/2023 6:30 AM EST Anticoagulation Pharmacy Call Center WB [address] [place] [address] [facility] 58 60 [facility] [place] [address] 11/19/2023 12:15 PM EST Office Visit [facility] 16 [place] [address] Pablo Casanova, 16 [place] [address] 11/20/2023 10:30 AM EST Laboratory Laboratory [address] [place] [phone] [address] [place] [address] 11/21/2023 11:00 AM EST Immunization/Injection Hematology/Oncology Treatment, [address] [address] Nurse, Med [address] [place] [address] 11/22/2023 1:30 PM EST Hem/Onc Treatment Hematology/Oncology Treatment, [address] [address] Marylou, Chair 10 Hem Onc [address] 200 [facility] [place] [address] 11/28/2023 10:30 AM EST Laboratory Laboratory [address] [place] [phone] [place] [address] 11/28/2023 11:15 AM EST Immunization/Injection Hematology/Oncology Treatment, [address] [address] Nurse, Med [address] [place] [address] 11/29/2023 2:00 PM EST Hem/Onc Treatment Hematology/Oncology Treatment, [address] [address] Marylou, Chair 7 Hem Onc [address] 200 [facility] [place] [address] 12/11/2023 10:30 AM EST Laboratory Laboratory [address] [place] [phone] [place] [address] 12/12/2023 11:00 AM EST Immunization/Injection Hematology/Oncology Treatment, [place] 200 [facility] [place] [address] Nurse, Med 200 [facility] [place] [address] 12/31/2023 1:00 PM EST Cardiac Studies Cardiology [address] [place] [address] [place], Pacer [facility] [address] [place] [address] 01/03/2024 10:30 AM EST Imaging Radiology [facility] 1st [facility] 132 [facility] [place] [address] 01/06/2024 10:30 AM EST Laboratory Laboratory [address] [place] [phone] [place] [address] 01/08/2024 10:00 AM EST Office Visit Hematology/Oncology [facility] [address] [place] [address] Ludwig Louis MD [address] [place] [address] 02/11/2024 11:00 AM EDT Office Visit Family Medicine [address] [place] [phone] Bell Mcqueen MD [address] [place] [address] [place] [address] 08/10/2024 1:40 PM EDT Office Visit Rheumatology [address] [place] [phone] Win Nielsen MD [address] [place] [address] Pending Results Name Type Priority Associated Diagnoses Date /Time CBC WITH WBC DIFFERENTIAL Lab STAT Urothelial carcinoma of bladder (HCC) 11/13/2023 11:27 AM EST CBC Lab STAT Urothelial carcinoma of bladder (HCC) 11/13/2023 11:27 AM EST DIFFERENTIAL, AUTOMATED Lab STAT Urothelial carcinoma of bladder (HCC) 11/13/2023 11:27 AM EST Scheduled Procedures Name Priority Associated Diagnoses Date/Ti me ESOPHAGOGASTRODUODENOSCOPY ( EGD), FLEXIBLE, TRANSORAL, DIAGNOSTIC Recall Stark's esophagus with dysplasia Health Maintenance Due Date Last Done Comments Depression Screening 07/12/2021 07/12/2020 CKD PHOS USE SMARTSET 21516 08/21/202202/2021, 07/12/2020, 03/13/2019, Additional history exists *BISPHONATE OR OTHER ACCEPTABLE MEDICATION NEEDED FOR OSTEOPOROSIS (REFER TO SMARTSET #1146) 10/14/2023 Albumin/Creatinine Ratio 04/22/2024 023, 05/24/2022, 03/26/2022, Additional history exists TSH 10/08/2024 10/08/2023, 01/2023, 06/19/2023, Additional history exists CKD HGB USE SMARTSET 26336 11/05/202411/05, 11/05/2023, 10/29/2023, Additional history exists Stark's Esophagus Surveilance 02/26/2025 02/26/2022, 02/26/2022, 07/04/2021, Additional history exists DXA Scan 07/05/2025 07/05/2023, 10/19, 11/04/2018, Additional history exists DTaP,Tdap,and Td Vaccines (2 - Td or Tdap) 08/19/2027 08/19/2017, 08/20/2008 Pneumococcal Vaccine: 65+ Years Completed 06/23/2015, 05/14/2013, 04/18/2004 Zoster Vaccines Completed 12/02/2020, 08/15/2020 VITAMIN D LEVEL ONCE IN A LIFETIME-USE SMARTSET# [id number] Completed 04/22/2023, 08/28/2021, 07/14/2015 Influenza Vaccine (FLU [...] this encounter Medical Devices Implanted Type Area Body Service Team Member Device Identifier Shelf Expiration Date Model / Serial / Lot Power Port 8fr Sngl Lumen Plas - [id number] Implanted:Qty: 1 on 02/22/2022 at [facility] CR BARD : PERIPHERAL VASCULAR [id number] 02/15/2023 [id number] / / [id number] documented as of this encounter Visit Diagnoses Diagnosis Urothelial carcinoma of bladder (HCC) documented in this encounter Advance Directives Latest Code Status on File Code Status Date Activated Date Inactivated Comments Full Code 09/03/2007 7:29 AM 09/03/2007 4:02 PM Care Teams Implementation Project Coordinator Relationship Specialty Start Date End Date Juancho Romero MD [address] [place] [address] [place] [address] PCP - General Family Medicine 12/27/16 documented as of this encounter
--- OUTSIDE RECORDS SUMMARY | 2024-01-23 21:11 | External Medical Summary | Summary of Care ---
Author Name Unknown Organization [facility] Address [address] [place] [address] Phone [phone] Care Team Providers Care Envelope Sealing Machine Operator Name Role Phone Juancho Romero MD Primary Care Provider Reason for Visit * Reason Comments Medication Administration Procrit * Episode Based Medications (Routine) - Authorized Specialty Diagnoses / Procedures Referred By Contjocelyne t Referred To Contact Diagnoses Carcinoma of bladder (HCC) Iron deficiency anemia, unspecified iron deficiency anemia type Procedures MD INJ RETACRIT NON-ESRD USE MD THERAPEUTIC PROPHYLACTIC/DX INJECTION SUBQ/IM MD EPOETIN IVAN, NON-ESRD Ludwig Louis MD [address] [place] [address] Anc Hem/Onc Dony Hickman DEPT CLOSED - 10/01/23 [address] [place] [address] Referral ID Status Reason Start Date Expiration Date V isits Requested Visits Authorized [id number] Authorized 09/12/2022 04/25/2024 999 99 Encounter Details Date Type Department Care Team (Late st Contact Info) Description 11/14/2023 11:15 AM EST Immunization/I njection Hematology/Oncology Treatment, [place] [address] [place] [address] Nurse, Med 4 [address] [place] [address] Carcinoma of bladder (HCC)*; Iron deficiency anemia, unspecified iron deficiency anemia type Allergies Active Allergy Reactions Criticality Noted Date Comments Penicillins Other (Please comment),Rash High Eyes swell Pollen 05/03/2022 Wound Dressing Adhesive Rash 05/02/2023 Patient reported documented as of this encounter (statuses as of 11/14/2023) Medications Medication Sig Dispensed Refills Start Date [...] albuterol 120 mL 5 11/21/2022 Active Ipratropium [place] 0.02 % Inhalation Solution (Atrovent)Indicatio ns:Moderate persistent [...] Respimat 2.5 MCG/ACT Inhalation Aerosol Solution (Tiotropium [place] Monohydrate)Indicat ions:Moderate persistent asthma without complication INHALE [...] instructed by the [facility] 90 Tablet 3 08/09/2023 Active [...] as of this encounter (statuses as of 11/14/2023) Active Problems Problem Noted Date Diagnosed Date [...] rinse after steroid. 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 Encouraged to to take deep breath, use aero chamber, and rinse after steroid. 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 [...] as of this encounter (statuses as of 11/14/2023) Immunizations Name Administration Dates Next Due COVID-19 mRNA, LNP-s, No Pre serve, 2-Dose Series (MacuCLEAR) 12/01/2021,01/16/2021,12/26/2020 COVID-19, LNP-s, No Preserve , Ozzy-sucrose, Ages 12+ (Pfizer) 12/01/2021 COVID-19, MRNA-LNP, 23-24, P F, 30 MCG/0.3 mL, 12 YRS AND ABOVE, IM ([employer]-Comirnat) 09/18/2023 Covid-19, Mrna, Lnp-s, Pf, B ivalent, [...] Sign Reading Time Taken Comments Blood Pressure 130/66 11/14/2023 11:21 AM EST Pulse 70 11/14/2023 11:21 AM EST Temperature - - Respiratory Rate - - Oxygen Saturation - - Inhaled Oxygen Concentration - - Weight - - Height - - Body Mass Index - - documented in this encounter Nursing Notes * Leana Sears LPN - 11/14/2023 12:26 PM EST 1120: Chair 12. Pt arrived for Procrit injection. Hgb 10.1. Administered in TONI. Pt tolerated well.BP WNL. To return tomorrow for Venofer and next week for procrit. Discharged in stable condition. documented in this encounter Plan of Treatment Upcoming Encounters Date Type Department Care Team (Late st Contact Info) Description 11/15/2023 1:30 PM EST Hem/Onc Treatment Hematology/Oncology [address], [address] [address] Mary[place]ou, Chair 1 Hem Onc [address] [place] [address] 11/19/2023 6:30 AM EST Anticoagulation Pharmacy Call Center [address] [place] [address] Ccp, [facility] 58 [address] [place] [address] 11/19/2023 12:15 PM EST Office Visit [facility] [address] [address] Pablo Casanova, 16 [place] [address] 11/20/2023 10:30 AM EST Laboratory Laboratory [address] [place] [phone] [address] [place] [address] 11/21/2023 11:00 AM EST Immunization/Injection [facility]ematology[facility] [place] [facility] [address] [facility], Med 200 [facility] [place] [address] 11/22/2023 1:15 PM EST Hem/Onc Treatment Hematology/Oncology Treatment, [place] 200 [facility], [place] [address] Marylou, Chair 10 Hem Onc Scenery 200 [facility] [place] [address] 11/28/2023 10:30 AM EST Laboratory Laboratory [address] [place] [phone] [place] [address] 11/28/2023 11:15 AM EST Immunization/Injection Hematology/Oncology Treatment, [place] [facility] [address] Nurse, Med [address] [place] [address] 11/29/2023 2:00 PM EST Hem/Onc Treatment Hematology/Oncology Treatment, [place] 200 [facility], [place] [address] Marylou, Chair 7 Hem Onc Scenery 200 [facility] [place] [address] 12/11/2023 10:30 AM EST Laboratory Laboratory [address] [place] [phone] [place] [address] 12/12/2023 11:00 AM EST Immunization/Injection Hematology/Oncology Treatment, [address] [address] Nurse, Med [address] [place] [address] 12/31/2023 1:00 PM EST Cardiac Studies Cardiology [address] [place] [address] Og Frazier [address] [place] [address] 01/03/2024 10:30 AM EST Imaging Radiology [facility] 1st [facility] [address] [place] [address] 01/06/2024 10:30 AM EST Laboratory Laboratory [address] [place] [phone] [address] [place] [address] 01/08/2024 10:00 AM EST Office Visit Hematology/Oncology [facility] [address] [place] [address] Ludwig Louis MD [address] [place] [address] 02/11/2024 11:00 AM EDT Office Visit Family Medicine [address] [place] [address] Bell Mcqueen MD [address] [place] [address] [place] [address] 08/10/2024 1:40 PM EDT Office Visit Rheumatology [address] [place] [phone] Win Nielsen MD [address] [place] [address] [place] [address] Scheduled Procedures Name Priority Associated Diagnoses Date/Ti me ESOPHAGOGASTRODUODENOSCOPY ( EGD), FLEXIBLE, TRANSORAL, DIAGNOSTIC Recall Stark's esophagus with dysplasia Health Maintenance Due Date Last Done Comments Depression Screening 07/12/2021 07/12/2020 CKD PHOS USE SMARTSET 70457 08/21/2022 10/0 02/2021, 07/12/2020, 03/13/2019, Additional history exists *BISPHONATE OR OTHER ACCEPTABLE MEDICATION NEEDED FOR OSTEOPOROSIS (REFER TO SMARTSET #1146) 10/14/2023 Albumin/Creatinine Ratio 04/22/2024 023, 05/24/2022, 03/26/2022, Additional history exists TSH 10/08/2024 10/08/2023, 10/0 01/2023, 06/19/2023, Additional history exists CKD HGB USE SMARTSET 43508 11/13/202411/13, 11/13/2023, 11/05/2023, Additional history exists Stark's Esophagus Surveilance 02/26/2025 02/26/2022, 02/26/2022, 07/04/2021, Additional history exists DXA Scan 07/05/2025 07/05/2023, 10/19, 11/04/2018, Additional history exists DTaP,Tdap,and Td Vaccines (2 - Td or Tdap) 08/19/2027 08/19/2017, 08/20/2008 Pneumococcal Vaccine: 65+ Years Completed 06/23/2015, 05/14/2013, 04/18/2004 Zoster Vaccines Completed 12/02/2020, 08/15/2020 VITAMIN D LEVEL ONCE IN A LIFETIME-USE SMARTSET# [id number] Completed 04/22/2023, 08/28/2021, 07/14/2015 Influenza Vaccine (FLU [...] this encounter Medical Devices Implanted Type Area Broth Mixer Device Identifier Shelf Expiration Date Model / Serial / Lot Power Port 8fr Sngl Lumen Plas - [id number] Implanted:Qty: 1 on 02/22/2022 at [facility] CR BARD : PERIPHERAL VASCULAR [id number] 02/15/2023 [id number] / / [id number] documented as of this encounter Visit Diagnoses Diagnosis Carcinoma of bladder (HCC)- Primary Malignant neoplasm of bladder, part unspecified Iron deficiency anemia, unspecified iron deficiency anemia type documented in this encounter Administered Medications Inactive Administered Medications - up to 3 most recent administrations Medication Order MAR Action Action Date Dose Rate Site Epoetin Ivan [address]753 UNIT/ML inj 40,000 Units 40,000 Units, Subcutaneous, ONCE, On Marilin 11/14/23 at 1200, For 1 dose Given 11/14/2023 11:25 AM EST 40,000 Units Arm Left Upper documented in this encounter Advance Directives Latest Code Status on File Code Status Date Activated Date Inactivated Comments Full Code 09/03/2007 7:29 AM 09/03/2007 4:02 PM Care Teams Envelope Sealing Machine Operator Relationship Specialty Start Date End Date Juancho Romero MD [address] [place] [address] [place] [id number] PCP - General Family Medicine 12/27/16 documented as of this encounter
--- OUTSIDE RECORDS SUMMARY | 2024-01-23 21:11 | External Medical Summary | Summary of Care ---
Author Name Unknown Organization [facility] Address [address] [place] [address] Phone [phone] Care Team Providers Care Steam Fitter Name Role Phone Juancho Romero MD Primary Care Provider [phone] Reason for Visit * Reason Comments eRx-Medication Refill Encounter Details Date Type Department Care Team (Late st Contact Info) Description 11/18/2023 Refill Hematology/Oncology [facility] [place] [address] [place] [address] Ludwig Louis MD [address] [place] [address] Carcinoma of bladder (HCC) Allergies Active Allergy [...] albuterol 120 mL 5 11/21/2022 Active Ipratropium [place] 0.02 % Inhalation Solution (Atrovent)Indicat ions:Moderate persistent [...] Respimat 2.5 MCG/ACT Inhalation Aerosol Solution (Tiotropium [place] Monohydrate)Indic ations:Moderate persistent asthma without complication INHALE 2 PUFFS BY MOUTH EVERY DAY 12 g 3 04/30/2023 Active Rosuvastatin Calcium 10 MG Oral Tablet (Crestor) TAKE 1 TABLET BY MOUTH EVERY DAY 90 Tablet 1 05/27/2023 Active Warfarin Sodium 5 MG Oral Tablet (Coumadin)Indicat ions:Pulmonary embolism and infarction (HCC) Take 0.5-1 Tablets by mouth every evening. Or take as instructed by the [facility] 90 Tablet 3 [...] BREAKFAST/OTHER MEDS 90 Tablet 0 11/19/2023 Active Levothyroxine Sodium 125 MCG Oral Tablet (Levoxyl)Indicati ons:Carcinoma of bladder (HCC) TAKE 1 TAB BY MOUTH DAILY FIRST THING IN THE MORNING AT LEAST 30 MIN PRIOR TO BREAKFAST/OTHER MEDS 90 Tablet 0 08/26/2023 11/19/19 24 Discontinued Hospital, Clinic, or Other [...] rinse after steroid. Test performed by Sameer PSYCHIATRY ADULT PHYSICIAN CPFT Pleural plaque due to asbestos exposure Restrictive lung disease Overview: In Check dial performed to assess inhaler technique: 12/15/19 Name of inhalers Albuterol Pass: Yes at 60 L/min and Advair Pass: Yes at 60 L/min. Encouraged to to take deep breath, use aero chamber, and rinse after steroid. Test performed by Sameer PSYCHIATRY ADULT PHYSICIAN CPFT Hx of pulmonary embolus 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 Overview: [place] C0-M6 documented as of this encounter (statuses [...] Malignant neoplasm of prostate 09/23/2008 03/27/2018 Overview: [place] grade 3 Atrial flutter 09/02/2007 10/16/2007 Herpes simplex virus infection 08/22/2005 04/05/2016 Anal fissure 06/04/2005 10/16/2007 USP current use of ant icoagulant therapy 05/30/2005 [...] mRNA, LNP-s, No Pre serve, 2-Dose Series (Liquiverse) 12/01/2021,01/16/2021,12/26/2020 COVID-19, LNP-s, No Preserve , Ozzy-sucrose, Ages 12+ (Pfizer) 12/01/2021 COVID-19, MRNA-LNP, 23-24, P F, 30 MCG/0.3 mL, 12 YRS AND ABOVE, IM ([employer]-Comirnat) 09/18/2023 Covid-19, Mrna, Lnp-s, Pf, B ivalent, 30 Mcg, IM, 12 yrs and above (Liquiverse) 10/09/2022 Pneumococcal Conjugate Vacc, 13 Valent (Prevnar) [...] Telephone Encounter - Rosalie Miramontes RN - 11/19/2023 8:15 AM ESTPending Prescriptions: Disp Refills Levothyroxine Sodium 125 MCG Oral Tablet [*90 Tab*0 Sig: TAKE 1 TAB BY MOUTH DAILY FIRST THING IN THE MORNING AT LEAST 30 MIN PRIOR TO BREAKFAST/OTHER MEDS * Telephone Encounter - Rosalie Miramontes RN - 11/19/2023 8:13 AM EST 10/08/23: TSH 6.87, T4 1.1. Patient completed keytruda 04/23/23. documented in this encounter Plan of Treatment Upcoming Encounters Date Type Department Care Team (Late st Contact Info) Description 11/19/2023 12:15 PM EST Office Visit [facility] [address] [place] [address] Pablo Casanova, 16 [place] [address] Arrived 11/20/2023 10:30 AM EST Laboratory Laboratory [address] [place] [phone] [place] [address] 11/21/2023 11:00 AM EST Immunization/Injection Hematology/Oncology Treatment, [address] [place] [address] Nurse, Med 200 [facility] [place] [address] 11/22/2023 6:30 AM EST Anticoagulation Pharmacy Call Center [address] [place] [address] [facility] 58 60 [facility] [place] [address] 11/22/2023 1:15 PM EST Hem/Onc Treatment Hematology/Oncology Treatment, [address] [place] [address] Park, Chair 10 Hem Onc [address] [place] [address] 11/28/2023 10:30 AM EST Laboratory Laboratory [address] [place] [phone] [place] [address] 11/28/2023 11:15 AM EST Immunization/Injection Hematology/Oncology Treatment, [place] 200 [facility], [place] [address] Nurse, Med 4 200 [facility] [place] [address] 11/29/2023 2:00 PM EST Hem/Onc Treatment Hematology/Oncology Treatment, [place] 200 [facility] [address] [place], Chair 7 Hem Onc [facility] 200 [facility] [place] [address] 12/11/2023 10:30 AM EST Laboratory Laboratory [address] [place] [phone] [address] [place] [address] 12/12/2023 11:00 AM EST Immunization/Injection Hematology/Oncology Treatment, [place] 200 [facility] [address] Nurse, Med 4 200 [facility] [place] [address] 12/31/2023 1:00 PM EST Cardiac Studies Cardiology [address] [place] [address] [facility] 132 [facility] [place] [address] 01/03/2024 10:30 AM EST Imaging Radiology [facility] [address] [facility] 132 [facility] [place] [address] 01/06/2024 10:30 AM EST Laboratory Laboratory [address] [place] [phone] [address] [place] [address] 01/08/2024 10:00 AM EST Office Visit Hematology/Oncology [employer] [address] [place], [place] [address] Ludwig Louis MD [address] [place] [address] 02/11/2024 11:00 AM EDT Office Visit Family Medicine [address] [place] [phone] Bell Mcqueen MD [address] [place] [address] [place] [address] 08/10/2024 1:40 PM EDT Office Visit Rheumatology [address] [place] [phone] Win Nielsen MD [facility] [employer] [place] [address] Scheduled Procedures Name Priority Associated Diagnoses Date/Ti me ESOPHAGOGASTRODUODENOSCOPY ( EGD), FLEXIBLE, TRANSORAL, DIAGNOSTIC Recall Stark's esophagus with dysplasia Health Maintenance Due Date Last Done Comments Depression Screening 07/12/2021 07/12/2020 CKD PHOS USE SMARTSET 87791 08/21/[address] 02/2021, 07/12/2020, 03/13/2019, Additional history exists *BISPHONATE OR OTHER ACCEPTABLE MEDICATION NEEDED FOR OSTEOPOROSIS (REFER TO SMARTSET #1146) 10/14/2023 Albumin/Creatinine Ratio 04/22/20242 023, 05/24/2022, 03/26/2022, Additional history exists TSH 10/08/2024 10/08/2023, 100 01/2023, 06/19/2023, Additional history exists CKD HGB USE SMARTSET 39063 11/13/202411/13, 11/13/2023, 11/05/2023, Additional history exists Stark's Esophagus Surveilance 02/26/2025 02/26/2022, 02/26/2022, 07/04/2021, Additional history exists DXA Scan 07/05/2025 07/05/2023, 1207/2020, 11/04/2018, Additional history exists DTaP,Tdap,and Td Vaccines (2 - Td or Tdap) 08/19/2027 08/19/2017, 08/20/2008 Pneumococcal Vaccine: 65+ Years Completed 06/23/2015, 05/14/2013, 04/18/2004 Zoster Vaccines Completed 12/02/2020, 08/15/2020 VITAMIN D LEVEL ONCE IN A LIFETIME-USE SMARTSET# [id number] Completed 04/22/2023, 08/28/2021, 07/14/2015 Influenza Vaccine (FLU [...] this encounter Medical Devices Implanted Type Area Diesel Crane Operator Device Identifier Shelf Expiration Date Model / Serial / Lot Power Port 8fr Sngl Lumen Plas - [id number] Implanted:Qty: 1 on 02/22/2022 at [facility] CR BARD : PERIPHERAL VASCULAR [id number] 02/15/2023 [id number] / / [id number] documented as of this encounter Visit Diagnoses Diagnosis Carcinoma of bladder (HCC) Malignant neoplasm of bladder, part unspecified documented in this encounter Advance Directives Latest Code Status on File Code Status Date Activated Date Inactivated Comments Full Code 09/03/2007 7:29 AM 09/03/2007 4:02 PM Care Teams Steam Fitter Relationship Specialty Start Date End Date Juancho Romero MD [address] [place] [address] [place] [address] PCP - General Family Medicine 12/27/16 documented as of this encounter
--- OUTSIDE RECORDS SUMMARY | 2024-01-23 21:12 | External Medical Summary | Summary of Care ---
Author Name Unknown Organization [facility] Address [address] [place] [address] Phone [phone] Care Team Providers Care Director Work Name Role Phone Juancho Romero MD Primary Care Provider Encounter Details Date Type Department Care Team (Late st Contact Info) Description 11/04/2023 Result Scan Unspecified Department <No scans attached> Allergies Active Allergy Reactions Criticality Noted Date Comments Penicillins Other (Please comment),Rash High Eyes swell Pollen 05/03/2022 Wound Dressing Adhesive Rash 05/02/2023 Patient reported documented as of this encounter (statuses as of 11/04/2023) Medications Medication Sig Dispensed Refills Start Date [...] albuterol 120 mL 5 11/21/2022 Active Ipratropium [place] 0.02 % Inhalation Solution (Atrovent)Indicatio ns:Moderate persistent [...] Respimat 2.5 MCG/ACT Inhalation Aerosol Solution (Tiotropium [place] Monohydrate)Indicat ions:Moderate persistent asthma without complication INHALE 2 PUFFS BY MOUTH EVERY DAY 12 g 3 04/30/2023 Active Rosuvastatin Calcium 10 MG Oral Tablet (Crestor) TAKE 1 TABLET BY MOUTH EVERY DAY 90 Tablet 1 05/27/2023 Active Warfarin Sodium 5 MG Oral Tablet (Coumadin)Indicatio ns:Pulmonary embolism and infarction (HCC) Take 0.5-1 Tablets by mouth every evening. Or take as instructed by the [facility] 90 Tablet 3 [...] BREAKFAST/OTHER MEDS 90 Tablet 0 08/26/2023 Active Zolpidem Tartrate 5 MG Oral Tablet (Ambien)Indications :Restless leg syndrome Take 1 Tablet by mouth at bedtime as needed for Sleep. 30 Tablet 0 10/09/2023 Active Doxycycline Hyclate 100 MG Oral CapsuleIndications: Pneumonia of both lower lobes due to infectious organism Take 1 Capsule by mouth in the morning and 1 Capsule before bedtime. Do all this for 7 days. Take for 7 days. 14 Capsule 0 10/29/2023 11/05/2023 Active Furosemide 40 MG Oral Tablet (Lasix)Indications: Acute on chronic diastolic congestive heart failure (HCC) Take one tablet daily and as directed for weight gain 0 10/31/2023 Active Hospital, Clinic, or Other Facility Administered [...] as of this encounter (statuses as of 11/04/2023) Active Problems Problem Noted Date Diagnosed Date [...] rinse after steroid. Test performed by Sameer LINUX NETWORK ENGINEER CPFT Pleural plaque due to asbestos exposure Restrictive lung disease Overview: In Check dial performed to assess inhaler technique: 12/15/19 Name of inhalers Albuterol Pass: Yes at 60 L/min and Advair Pass: Yes at 60 L/min. Encouraged to to take deep breath, use aero chamber, and rinse after steroid. Test performed by Sameer LINUX NETWORK ENGINEER CPFT Hx of pulmonary embolus 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 Overview: [place] C0-M6 documented as of this encounter (statuses as of 11/04/2023) Resolved Problems Problem Noted Date Diagnosed Date [...] Malignant neoplasm of prostate 09/23/2008 03/27/2018 Overview: [place] grade 3 Atrial flutter 09/02/2007 10/16/2007 Herpes [...] as of this encounter (statuses as of 11/04/2023) Immunizations Name Administration Dates Next Due COVID-19 mRNA, LNP-s, No Pre serve, 2-Dose Series (Serometrix) 12/01/2021,01/16/2021,12/26/2020 COVID-19, LNP-s, No Preserve , Ozzy-sucrose, Ages 12+ (Pfizer) 12/01/2021 COVID-19, MRNA-LNP, 23-24, P F, 30 MCG/0.3 mL, 12 YRS AND ABOVE, IM ([employer]-Comirnat[employer]) 09/18/2023 Covid-19, Mrna, Lnp-s, Pf, B ivalent, 30 Mcg, IM, 12 yrs and above (Serometrix) 10/09/2022 Pneumococcal Conjugate Vacc, 13 Valent (Prevnar) [...] Care Team (Late st Contact Info) Description 11/04/2023 3:40 PM EST Office Visit Family Medicine [address] [place] [phone] Bell Mcqueen MD [address] [place] [address] [place] [address] 11/05/2023 6:30 AM EST Anticoagulation Pharmacy Call Center 58[address]60 [facility] [place] [address] [facility] 58 60 [facility] [place] [address] 11/05/2023 10:30 AM EST Laboratory Laboratory [address] [place] [phone] [facility] [address] [place] [address] 11/06/2023 11:15 AM EST Immunization/Injection Hematology/Oncology Treatment, [place] 200 [facility] [place] [address] Nurse, Med [address] [place] [address] [place] [address] 11/07/2023 2:00 PM EST Hem/Onc Treatment Hematology/Oncology Treatment, [address] [place] [address] Marylou, Chair 6 Hem Onc Scenery [address] [place] [address] 11/19/2023 12:15 PM EST Office Visit [facility] [address] [place] [address] Pablo Casanova, 16 [place] [address] 12/31/2023 1:00 PM EST Cardiac Studies Cardiology [address] [place] [address] Og Frazier [facility] 132 [facility] [place] [address] 01/03/2024 10:30 AM EST Imaging Radiology [facility] 1st [facility] [address] 01/08/2024 10:00 AM EST Office Visit Hematology/Oncology [facility] [place] [address] [place] [address] Ludwig Louis MD [address] [place] [address] 08/10/2024 1:40 PM EDT Office Visit Rheumatology [address] [place] [phone] Win Nielsen MD [address] [place] [address] [place] [address] Scheduled Procedures Name Priority Associated Diagnoses Date/Ti me ESOPHAGOGASTRODUODENOSCOPY ( EGD), FLEXIBLE, TRANSORAL, DIAGNOSTIC Recall Stark's esophagus with dysplasia Health Maintenance Due Date Last Done Comments Depression Screening 07/12/2021 07/12/2020 CKD PHOS USE SMARTSET 80182 08/21/2022 10/0 02/2021, 07/12/2020, 03/13/2019, Additional history exists *BISPHONATE OR OTHER ACCEPTABLE MEDICATION NEEDED FOR OSTEOPOROSIS (REFER TO SMARTSET #1146) 10/14/2023 Albumin/Creatinine Ratio 04/22/2024 023, 05/24/2022, 03/26/2022, Additional history exists TSH 10/08/2024 10/08/2023, 10/0 01/2023, 06/19/2023, Additional history exists CKD HGB USE SMARTSET 35429 10/29/202410/29, 10/29/2023, 10/22/2023, Additional history exists Stark's Esophagus Surveilance 02/26/2025 02/26/2022, 07/04/2021, 01/31/2021, Additional history exists DXA Scan 07/05/2025 07/05/2023, 10/19, 11/04/2018, Additional history exists DTaP,Tdap,and Td Vaccines (2 - Td or Tdap) 08/19/2027 08/19/2017, 08/20/2008 Pneumococcal Vaccine: 65+ Years Completed 06/23/2015, 05/14/2013, 04/18/2004 Zoster Vaccines Completed 12/02/2020, 08/15/2020 VITAMIN D LEVEL ONCE IN A LIFETIME-USE SMARTSET# [id number] Completed 04/22/2023, 08/28/2021, 07/14/2015 Influenza Vaccine (FLU [...] this encounter Medical Devices Implanted Type Area Rod Pointer Device Identifier Shelf Expiration Date Model / Serial / Lot Power Port 8fr Sngl Lumen Plas - [id number] Implanted:Qty: 1 on 02/22/2022 at [facility] BARD : PERIPHERAL VASCULAR [id number] 02/15/2023 [id number] / / [id number] documented as of this encounter Procedures Procedure Name Priority Date/Time Associated Diagnosis Comments OUTSIDE LAB RESULTS 11/04/2023 documented in this encounter Results * OUTSIDE LAB RESULTS (11/04/2023) 11/04/2023 No Physician Data Unknown LABORATORY documented in this encounter Advance Directives Latest Code Status on File Code Status Date Activated Date Inactivated Comments Full Code 09/03/2007 7:29 AM 09/03/2007 4:02 PM Care Teams Director Work Relationship Specialty Start Date End Date Juancho Romero MD [address] [place] [address] [place] [address] PCP - General Family Medicine 12/27/16 documented as of this encounter
--- OUTSIDE RECORDS SUMMARY | 2024-01-23 21:12 | External Medical Summary ---
Author Name Unknown Address Unknown Organization K01:[facility] [place] 100 [facility] [address] Laboratory Report Ordering Provider Test Date Status ADRIENNE SALCIDO 11/13/2023 11:27:53 Final Observation Date Value Abnormality Reference (Units ) Status SYNC LEUKOCYTES IN BLOOD BY AUTOMATED COUNT 11/13/2023 11:27:53 4.43 4.00-10.80 (K/uL) Final Segs 11/13/2023 11:27:53 69.6 40.0-75.0 (%) Final Lymphs % 11/13/2023 11:27:53 14.7 Below low normal 18.0-42.0 (%) Final Monos 11/13/2023 11:27:53 10.8 1.0-11.0 (%) Final Eosinophils 11/13/2023 11:27:53 2.7 0.0-6.0 (%) Final Basos 11/13/2023 11:27:53 1.1 0.0-2.0 (%) Final Immature Granulocyte, Percent 11/13/2023 11:27:53 1.1 0.0-2.0 (%) Final Absolute Segs 11/13/2023 11:27:53 3.08 1.80-7.70 (K/uL) Final Lymphs, absolute 11/13/2023 11:27:53 0.65 Below low normal 1.00-4.80 (K/ul) Final Monos, Abs 11/13/2023 11:27:53 0.48 0.00-1.10 (K/uL) Final Eos, Abs 11/13/2023 11:27:53 0.12 0.00-0.70 (K/uL) Final Basos, Abs 11/13/2023 11:27:53 0.05 0.00-0.20 (K/uL) Final Immature Granulocytes, Number 11/13/2023 11:27:53 0.05 0.00-0.20 (K/uL) Final Performing Location [facility] [place] [address]
--- OUTSIDE RECORDS SUMMARY | 2024-01-23 21:12 | External Medical Summary | Summary of Care ---
Author Name Unknown Organization [facility] Address [address] [place] [address] Phone [phone] Care Team Providers Care Pharmacy Affairs Assistant Name Role Phone Katina Rivas MD Primary Care Provider [phone] Reason for Visit * Reason Comments eRx-Medication Refill Encounter Details Date Type Department Care Team (Late st Contact Info) Description 11/12/2023 Refill Family Medicine [address] [phone] David Hu MD [address] [place] [address] [place] [address] Restless leg syndrome Allergies Active Allergy [...] albuterol 120 mL 5 11/21/2022 Active Ipratropium [place] 0.02 % Inhalation Solution (Atrovent)Indicat ions:Moderate persistent [...] Respimat 2.5 MCG/ACT Inhalation Aerosol Solution (Tiotropium [place] Monohydrate)Indic ations:Moderate persistent asthma without complication INHALE 2 PUFFS BY MOUTH EVERY DAY 12 g 3 04/30/2023 Active Rosuvastatin Calcium 10 MG Oral Tablet (Crestor) TAKE 1 TABLET BY MOUTH EVERY DAY 90 Tablet 1 05/27/2023 Active Warfarin Sodium 5 MG Oral Tablet (Coumadin)Indicat ions:Pulmonary embolism and infarction (HCC) Take 0.5-1 Tablets by mouth every evening. Or take as instructed by the [facility] 90 Tablet 3 [...] 08/26/2023 Active Furosemide 40 MG Oral Tablet (Lasix)Indication s:Acute on chronic diastolic congestive heart failure (HCC) Take one tablet daily and as directed for weight gain 0 10/31/2023 Active guaiFENesin ER 600 MG Oral Tablet Extended Release 12 Hour (Humibid LA)Indications:Ac [place] cough Take 1 Tablet by mouth in the morning and 1 Tablet before bedtime. 40 Tablet 0 11/04/2023 Active Zolpidem Tartrate 5 MG Oral Tablet (Ambien)Indicatio ns:Restless leg syndrome Take 1 Tablet by mouth at bedtime as needed for Sleep. 30 Tablet 0 11/13/2023 Active Zolpidem Tartrate 5 MG Oral Tablet (Ambien)Indicatio ns:Restless leg syndrome Take 1 Tablet by mouth at bedtime as needed for Sleep. 30 Tablet 0 10/09/2023 11/13/20 23 Discontinued Hospital, Clinic, or Other Facility Administered [...] after steroid. Test performed by Sameer FOOD AND BEVERAGE ANALYST CPFT Pleural plaque due to asbestos exposure Restrictive lung disease Overview: In Check dial performed to assess inhaler technique: 12/15/19 Name of inhalers Albuterol Pass: Yes at 60 L/min and Advair Pass: Yes at 60 L/min. Encouraged to to take deep breath, use aero chamber, and rinse after steroid. Test performed by Sameer FOOD AND BEVERAGE ANALYST CPFT Hx of pulmonary embolus 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 Overview: [place] C0-M6 documented as of this encounter (statuses [...] Malignant neoplasm of prostate 09/23/2008 03/27/2018 Overview: [place] grade 3 Atrial flutter 09/02/2007 10/16/2007 Herpes [...] mRNA, LNP-s, No Pre serve, 2-Dose Series ([employer]) 12/01/2021,01/16/2021,12/26/2020 COVID-19, LNP-s, No Preserve , Ozzy-sucrose, Ages 12+ ([employer]) 12/01/2021 COVID-19, MRNA-LNP, 23-24, P F, 30 MCG/0.3 mL, 12 YRS AND ABOVE, IM (Sypherlink-Comirnat) 09/18/2023 Covid-19, Mrna, Lnp-s, Pf, B ivalent, 30 Mcg, IM, 12 yrs and above ([employer]) 10/09/2022 Pneumococcal Conjugate Vacc, 13 Valent (Prevnar) [...] encounter Miscellaneous Notes * Telephone Encounter - Katina Rivas MD - 11/13/2023 8:39 AM ESTSigned Prescriptions: Disp Refills Zolpidem Tartrate 5 MG Oral Tablet (Ambien)30 Tab*0 Sig: Take 1 Tablet by mouth at bedtime as needed for Sleep. Authorizing Provider: KATINA RIVAS * Telephone Encounter - Steven Mercado [facility] - 11/13/2023 8:26 AM EST Pending Prescriptions: Disp Refills Zolpidem Tartrate 5 MG Oral Tablet [Pharma*30 Tab*0 Sig: Take 1 Tablet by mouth at bedtime as needed for Sleep. * Telephone Encounter - Steven Mercado RPh - 11/13/2023 8:25 AM EST I have reviewed the patients controlled substance dispensing history in the Prescription Drug Monitoring Program in compliance with the [facility] regulations before prescribing a controlled substance. PDMP checked on 11/13/2023. Pending Prescriptions: Disp Refills Zolpidem Tartrate 5 MG Oral Tablet (Ambie*30 Tab*0 Sig: Take 1 Tablet by mouth at bedtime as needed for Sleep. Last Visit: 11/04/2023 (in office), 08/28/2022 (telemedicine) Next Visit: 02/11/2024 Date medication was last filled: 10/12/23 Date medication is due for refill: 11/09/23 Pharmacy: [facility] [id number] Is this request for a controlled substance? Yes and Urine Drug Screen Not completed Toxicology results: No results found. However, due to the size of the patient record, not all encounters were searched.Please check Results Review for a complete set of results. Please approve if appropriate. Thanks, Steven Mercado, PharmD Clinical Pharmacist [facility] ([facility]) (formerly Telepharmacy) [phone] 11/13/2023, 8:25 AM documented in this encounter Plan of Treatment Upcoming Encounters Date Type Department Care Team ([facility] st Contact Info) Description 11/13/2023 10:30 AM EST Laboratory Laboratory [address] [place] [phone] [address] [place] [address] 11/14/2023 11:15 AM EST Immunization/Injection Hematology/Oncology Treatment, [place] 200 [facility] [place] [address] Nurse, Med [address] [address] 11/15/2023 1:30 PM EST Hem/Onc Treatment Hematology/Oncology Treatment, [place] 200 [facility] [place] [address] Marylou, Chair 1 Hem Onc Scenery 200 [facility] [place] [address] 11/19/2023 6:30 AM EST Anticoagulation Pharmacy Call Center [address] [place] [address] [facility] 58 60 [facility] [place] [address] 11/19/2023 12:15 PM EST Office Visit [facility] Eye [facility] [address] [place] [address] Pablo Casanova T, DO 16 [place] [address] 11/20/2023 10:30 AM EST Laboratory Laboratory [address] [place] [phone] [place], [address] [place] [address] 11/21/2023 11:00 AM EST Immunization/Injection Hematology/Oncology Treatment, [place] 200 [facility] [place] [address] Nurse, Med [address] [address] 11/22/2023 1:30 PM EST Hem/Onc Treatment Hematology/Oncology Treatment, [place] 200 [facility] [place] [address] Marylou, Chair 10 Hem Onc Scenery [address] [address] 11/28/2023 10:30 AM EST Laboratory Laboratory [address] [place] [phone] [address] [place] [address] 11/28/2023 11:15 AM EST Immunization/Injection [facility]ematology[facility]cology Treatment, [place] [facility] [address] Nurse, Med [address] [place] [address] 11/29/2023 2:00 PM EST Hem/Onc Treatment Hematology[facility]Oncology Treatment, [place] [address] [facility] [address] [place], Chair 7 Hem Onc [address] [place] [address] 12/11/2023 10:30 AM EST Laboratory Laboratory [address] [place] [phone] [address] [place] [address] 12/12/2023 11:00 AM EST Immunization/Injection Hematology/Oncology Treatment, [place] 200 [facility] [address] Nurse, Med 4 200 [facility] [place] [address] 12/31/2023 1:00 PM EST Cardiac Studies Cardiology [address] [place] [address] Og Frazier [facility] 132 [facility] [place] [address] 01/03/2024 10:30 AM EST Imaging Radiology [facility] 1st [facility], [place] 132 [place] [address] 01/06/2024 10:30 AM EST Laboratory Laboratory [address] [place] [phone] [place] [address] 01/08/2024 10:00 AM EST Office Visit Hematology/Oncology [employer] 200 [facility] [place] [address] Ludwig Louis MD [address] [place] [address] 02/11/2024 11:00 AM EDT Office Visit Family Medicine [address] [place] [phone] Bell Mcqueen MD [address] [place] [address] [place] [address] 08/10/2024 1:40 PM EDT Office Visit Rheumatology [address] [place] [address] iWn Nielsen MD [address] [place] [address] [place] [address] Scheduled Procedures Name Priority Associated Diagnoses Date/Ti me ESOPHAGOGASTRODUODENOSCOPY ( EGD), FLEXIBLE, TRANSORAL, DIAGNOSTIC Recall Stark's esophagus with dysplasia Health Maintenance Due Date Last Done Comments Depression Screening 07/12/2021 07/12/2020 CKD PHOS USE SMARTSET 04144 08/21/[address] 02/2021, 07/12/2020, 03/13/2019, Additional history exists *BISPHONATE OR OTHER ACCEPTABLE MEDICATION NEEDED FOR OSTEOPOROSIS (REFER TO SMARTSET #1146) 10/14/2023 Albumin/Creatinine Ratio 04/22/20242 023, 05/24/2022, 03/26/2022, Additional history exists TSH 10/08/2024 10/08/2023, 1001/2023, 06/19/2023, Additional history exists CKD HGB USE SMARTSET 68771 11/05/202411/05, 11/05/2023, 10/29/2023, Additional history exists Stark's Esophagus Surveilance 02/26/2025 02/26/2022, 02/26/2022, 07/04/2021, Additional history exists DXA Scan 07/05/2025 07/05/2023, 10/19, 11/04/2018, Additional history exists DTaP,Tdap,and Td Vaccines (2 - Td or Tdap) 08/19/2027 08/19/2017, 08/20/2008 Pneumococcal Vaccine: 65+ Years Completed 06/23/2015, 05/14/2013, 04/18/2004 Zoster Vaccines Completed 12/02/2020, 08/15/2020 VITAMIN D LEVEL ONCE IN A LIFETIME-USE SMARTSET# [id number] Completed 04/22/2023, 08/28/2021, 07/14/2015 Influenza Vaccine (FLU [...] this encounter Medical Devices Implanted Type Area Bottle Feeder Device Identifier Shelf Expiration Date Model / Serial / Lot Power Port 8fr Sngl Lumen Plas - [id number] Implanted:Qty: 1 on 02/22/2022 at [facility] BARD : PERIPHERAL VASCULAR [id number] 02/15/2023 [id number] / / [id number] documented as of this encounter Visit Diagnoses Diagnosis Restless leg syndrome Restless legs syndrome (RLS) documented in this encounter Advance Directives Latest Code Status on File Code Status Date Activated Date Inactivated Comments Full Code 09/03/2007 7:29 AM 09/03/2007 4:02 PM Care Teams Pharmacy Affairs Assistant Relationship Specialty Start Date End Date Katina Rivas MD [address] [place] [address] [place] [id number] PCP - General Family Medicine 12/27/16 documented as of this encounter
--- OUTSIDE RECORDS SUMMARY | 2024-01-23 21:12 | External Medical Summary ---
Author Name Unknown Address Unknown Organization K01:[facility] [place] [facility] [address] Laboratory Report Ordering Provider Test Date Status ADRIENNE SALCIDO 11/05/2023 10:43:29 Final Observation Date Value Abnormality Reference (Units ) Status SYNC LEUKOCYTES IN BLOOD BY AUTOMATED COUNT 11/05/2023 10:43:29 5.82 4.00-10.80 (K/uL) Final Segs 11/05/2023 10:43:29 72.5 40.0-75.0 (%) Final Lymphs % 11/05/2023 10:43:29 12.7 Below low normal 18.0-42.0 (%) Final Monos 11/05/2023 10:43:29 9.1 1.0-11.0 (%) Final Eosinophils 11/05/2023 10:43:29 3.1 0.0-6.0 (%) Final Basos 11/05/2023 10:43:29 1.2 0.0-2.0 (%) Final Immature Granulocyte, Percent 11/05/2023 10:43:29 1.4 0.0-2.0 (%) Final Absolute Segs 11/05/2023 10:43:29 4.22 1.80-7.70 (K/uL) Final Lymphs, absolute 11/05/2023 10:43:29 0.74 Below low normal 1.00-4.80 (K/ul) Final Monos, Abs 11/05/2023 10:43:29 0.53 0.00-1.10 (K/uL) Final Eos, Abs 11/05/2023 10:43:29 0.18 0.00-0.70 (K/uL) Final Basos, Abs 11/05/2023 10:43:29 0.07 0.00-0.20 (K/uL) Final Immature Granulocytes, Number 11/05/2023 10:43:29 0.08 0.00-0.20 (K/uL) Final Performing Location LAB[facility]ORY [facility] [place] [facility] [place] [address]
--- OUTSIDE RECORDS SUMMARY | 2024-01-23 21:12 | External Medical Summary | Summary of Care ---
Author Name Unknown Organization [facility] Address [address] [place] [address] Phone [phone] Care Team Providers Care Chief Hospital Administrator Name Role Phone Juancho Romero MD Primary Care Provider Reason for Visit * Reason Comments Infusion Venofer 11/21 Encounter Details Date Type Department Care Team (Latest Contact Info) Description 11/07/2023 2:00 PM EST Hem/Onc Treatment Hematology/Oncology Treatment, [address] [address] Marylou, Chair 6 Hem Onc [address] [address] Anemia of chronic disease*; Carcinoma of bladder (HCC); H/O mitral valve repair; Chronic kidney disease, stage 3b (HCC) Allergies Active Allergy Reactions Criticality Noted Date Comments Penicillins Other (Please comment),Rash High Eyes swell Pollen 05/03/2022 Wound Dressing Adhesive Rash 05/02/2023 Patient reported documented as of this encounter (statuses as of 11/07/2023) Medications Medication Sig Dispensed Refills Start Date [...] albuterol 120 mL 5 11/21/2022 Active Ipratropium [place] 0.02 % Inhalation Solution (Atrovent)Indicatio ns:Moderate persistent [...] Respimat 2.5 MCG/ACT Inhalation Aerosol Solution (Tiotropium [place] Monohydrate)Indicat ions:Moderate persistent asthma without complication INHALE [...] as instructed by the [facility] Coumadin [facility] 90 Tablet 3 [...] for Sleep. 30 Tablet 0 10/09/2023 Active Furosemide 40 MG Oral Tablet (Lasix)Indications: [...] 50 MCG/ACT Nasal Suspension (Flonase)Indication s:Acute cough Administer 1 [place] into each nostril in the morning and 1 [place] in the evening. Do all this for 5 days. 18.2 mL 0 11/04/2023 11/09/2023 Active Hospital, Clinic, or Other Facility Administered [...] as of this encounter (statuses as of 11/07/2023) Active Problems Problem Noted Date Diagnosed Date [...] rinse after steroid. Test performed by Sameer STOCK RECEIVER CPFT Pleural plaque due to asbestos exposure Restrictive lung disease Overview: In Check dial performed to assess inhaler technique: 12/15/19 Name of inhalers Albuterol Pass: Yes at 60 L/min and Advair Pass: Yes at 60 L/min. Encouraged to to take deep breath, use aero chamber, and rinse after steroid. Test performed by Sameer STOCK RECEIVER CPFT Hx of pulmonary embolus 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 Overview: [place] C0-M6 documented as of this encounter (statuses as of 11/07/2023) Resolved Problems Problem Noted Date Diagnosed Date [...] as of this encounter (statuses as of 11/07/2023) Immunizations Name Administration Dates Next Due COVID-19 mRNA, LNP-s, No Pre serve, 2-Dose Series (Straight [employer] English) 12/01/2021,01/16/2021,12/26/2020 COVID-19, LNP-s, No Preserve , Ozzy-sucrose, Ages 12+ ([employer] English) 12/01/2021 COVID-19, MRNA-LNP, 23-24, P F, 30 MCG/0.3 mL, 12 YRS AND ABOVE, IM ([facility]) 09/18/2023 Covid-19, Mrna, Lnp-s, Pf, B ivalent, 30 Mcg, IM, 12 yrs and above (Stra[employer] English) 10/09/2022 Pneumococcal Conjugate Vacc, 13 Valent (Prevnar) [...] Nursing Notes * Leana Sears LPN - 11/07/2023 4:11 PM EST 1425: Pt arrived for Venofer 11/21 infusion. Port accessed by Anneliese Ortiz RN. Pt tolerated well. VSS. No complaints at this time. 1600: Pt tolerated Venofer infusion well. Port deaccessed by MYRA RN. Pt tolerated well. To return in one week. Discharged in stable condition. documented in this encounter Plan of Treatment Upcoming Encounters Date Type Department Care Team (Late st Contact Info) Description 11/13/2023 10:30 AM EST Laboratory Laboratory [address] [place] [phone] [place] [address] 11/14/2023 11:15 AM EST Immunization/Injection Hematology/Oncology Treatment, [place] [address] [place] [address] Nurse, Med 4 200 [facility] [place] [address] 11/15/2023 1:30 PM EST Hem/Onc Treatment Hematology/Oncology Treatment, [place] [address] [place] [address] Park, Chair 1 Hem Onc [facility] 200 [facility] [place] [address] 11/19/2023 6:30 AM EST Anticoagulation Pharmacy Call Center [address] [place] [address] [facility] 58 [address] [place] [address] 11/19/2023 12:15 PM EST Office Visit [address] [address] Pablo Casanova, 16 [place] [address] 11/20/2023 10:30 AM EST Laboratory Laboratory [address] [place] [phone] [place] [address] 11/21/2023 11:00 AM EST Immunization/Injection Hematology/Oncology Treatment, [place] 200 [facility], [place] [address] Nurse, Med 4 [address] [place] [address] 11/22/2023 1:30 PM EST Hem/Onc Treatment Hematology/Oncology Treatment, [place] 200 [facility], [place] [address] Marylou, Chair 10 Hem Onc Scenery 200 [facility] [place] [address] 11/28/2023 10:30 AM EST Laboratory Laboratory [address] [place] [phone] [address] [place] [address] 11/28/2023 11:15 AM EST Immunization/Injection Hematology/Oncology Treatment, [place] 200 [facility], [place] [address] Nurse, Med 4 [address] [place] [address] 11/29/2023 2:00 PM EST Hem/Onc Treatment Hematology/Oncology Treatment, [place] 200 [facility], [place] [address] Marylou, Chair 7 Hem Onc Scenery 200 [facility] [address] [place], [place] [address] 12/11/2023 10:30 AM EST Laboratory Laboratory [address] [place] [phone] [place] [address] 12/12/2023 11:00 AM EST Immunization/Injection Hematology/Oncology [facility], [place] [facility] [address] Nurse, Med 4 [address] [place] [address] 12/31/2023 1:00 PM EST Cardiac Studies Cardiology [address] [place] [address] [facility] [address] [place] [place] [address] 01/03/2024 10:30 AM EST Imaging Radiology [facility] [address] [place] [address] 01/06/2024 10:30 AM EST Laboratory Laboratory [address] [place] [phone] [place] [address] 01/08/2024 10:00 AM EST Office Visit Hematology/Oncology [facility] [place] [address] [place] [address] Ludwig Louis MD [address] [place] [address] 02/11/2024 11:00 AM EDT Office Visit Family Medicine [address] [place] [phone] Bell Mcqueen MD [address] [place] [address] [place] [address] 08/10/2024 1:40 PM EDT Office Visit Rheumatology [address] [place] [phone] Win Nielsen MD [address] [place] [address] [place] [address] Scheduled Procedures Name Priority Associated Diagnoses Date/Ti me ESOPHAGOGASTRODUODENOSCOPY ( EGD), FLEXIBLE, TRANSORAL, DIAGNOSTIC Recall Stark's esophagus with dysplasia Health Maintenance Due Date Last Done Comments Depression Screening 07/12/2021 07/12/2020 CKD PHOS USE SMARTSET 52402 08/21/2022 100 02/2021, 07/12/2020, 03/13/2019, Additional history exists *BISPHONATE OR OTHER ACCEPTABLE MEDICATION NEEDED FOR OSTEOPOROSIS (REFER TO SMARTSET #1146) 10/14/2023 Albumin/Creatinine Ratio 04/22/2024 023, 05/24/2022, 03/26/2022, Additional history exists TSH 10/08/2024 10/08/2023, 100 01/2023, 06/19/2023, Additional history exists CKD HGB USE SMARTSET 40447 11/05/202411/05, 11/05/2023, 10/29/2023, Additional history exists Stark's Esophagus Surveilance 02/26/2025 02/26/2022, 02/26/2022, 07/04/2021, Additional history exists DXA Scan 07/05/2025 07/05/2023, 10/19, 11/04/2018, Additional history exists DTaP,Tdap,and Td Vaccines (2 - Td or Tdap) 08/19/2027 08/19/2017, 08/20/2008 Pneumococcal Vaccine: 65+ Years Completed 06/23/2015, 05/14/2013, 04/18/2004 Zoster Vaccines Completed 12/02/2020, 08/15/2020 VITAMIN D LEVEL ONCE IN A LIFETIME-USE SMARTSET# [id number] Completed 04/22/2023, 08/28/2021, 07/14/2015 Influenza Vaccine (FLU [...] this encounter Medical Devices Implanted Type Area Aviation Safety Officer Device Identifier Shelf Expiration Date Model / Serial / Lot Power Port 8fr Sngl Lumen Plas - [id number] Implanted:Qty: 1 on 02/22/2022 at [facility] CR [facility]ARD : PERIPHERAL VASCULAR [id number] 02/15/2023 [id number] / / [id number] documented as of this encounter Visit Diagnoses [...] ONCE PRN Other, Hypersensitivity Reaction, Starting on Sat11/07/23 at 1428, Until Sat11/08/23 at 1427, For 24 hours EPINEPHrine 1 MG/ML inj 0.3 mg 0.3 mg, Intramuscular, ONCE PRN Other, Hypersensitivity Reaction or Anaphylaxis, Starting on Marilin 11/07/23 at 1428, Until Sat11/08/23 at 1427, For 24 hours hEParin 100 UNIT/ML Lock Flush inj 500 Units 500 Units (5 mL), IV Lock, PRN Other, IV Flush, Starting on Marilin 11/07/23 at 1428, Until Sat11/08/23 at 1427, For 24 hours, Do not flush if lock, PICC, or central line not in place; IV infusing or unable to flush. Hydrocortisone Sod Suc (PF) (Solu-Cortef) inj 100 mg 100 mg, IV Push, ONCE PRN Other, Hypersensitivity Reaction, Starting on Marilin 11/07/23 at 1428, Until Sat11/08/23 at 1427, For 24 hours NSS infusion 500 mL, Intravenous, at 50 mL/hr, CONTINUOUS, Starting on Marilin 11/07/23 at 1530, Until Sat11/08/23 at 0129 Start Infusion 11/07/2023 2:28 PM EST 500 mL 50 mL/hr oxygen GAS Inhalation, OXYGEN, First dose on Sat11/07/23 at 1600, Until Discontinued, Device/Managed by: Low [...] Starting on Marilin 11/07/23 at 1428, Until Sat11/08/23 at 1427, For 24 hours, Do not flush if lock, PICC, or central line not in place; IV infusing or unable to flush. Given 11/07/2023 3:57 PM EST 10 mL Inactive Administered Medications - up to 3 most recent administrations Medication Order MAR Action Action Date Dose Rate Site Iron Sucrose (Venofer) 300 mg in NSS 250 mL ivpb 300 mg, IV Piggyback, ONCE, 1 dose, On Marilin 11/07/23 at 1600, Administer over 90 Minutes Start Infusion 11/07/2023 2:28 PM EST 300 mg 166.67 mL/hr documented in this encounter Advance Directives Latest Code Status on File Code Status Date Activated Date Inactivated Comments Full Code 09/03/2007 7:29 AM 09/03/2007 4:02 PM Care Teams Chief Hospital Administrator Relationship Specialty Start Date End Date Juancho Romero MD [address] [place] [address] [place] [address] PCP - General Family Medicine 12/27/16 documented as of this encounter
--- OUTSIDE RECORDS SUMMARY | 2024-01-23 21:12 | External Medical Summary ---
Author Name Unknown Address Unknown Organization K01:LABORATORY [place] [address] [place] [address] Laboratory Report Ordering Provider Test Date Status ADRIENNE SALCIDO 11/05/2023 10:43:29 Final Observation Date Value Abnormality Reference (Units ) Status WBC, Total 11/05/2023 10:43:29 5.82 4.00-10.80 (K/uL) Final RBC 11/05/2023 10:43:29 3.84 4.50-5.25 (M/uL) Final Hemoglobin 11/05/2023 10:43:29 10.2 Below low normal 14.0-16.8 (g/dL) Final HCT 11/05/2023 10:43:29 37.1 Below low normal 40.0-48.4 (%) Final MCV 11/05/2023 10:43:29 96.6 82.0-99.5 (fL) Final MCH 11/05/2023 10:43:29 26.6 27.0-34.0 (pg) Final MCHC 11/05/2023 10:43:29 27.5 32.0-36.0 (g/dL) Final RDW 11/05/2023 10:43:29 15.7 11.5-15.5 (%) Final Platelets 11/05/2023 10:43:29 160 140-400 (K/uL) Final MPV 11/05/2023 10:43:29 11.8 6.6-11.1 (fL) Final Nucleated erythrocytes/100 leukocytes [Ratio] in Blood by Automated count 11/05/2023 10:43:29 0 <=0 (/100 WBCs) Final Performing Location [facility] [place] [address] [place] [address]
--- OUTSIDE RECORDS SUMMARY | 2024-01-23 21:12 | External Medical Summary | Summary of Care ---
Author Name Unknown Organization [facility] Address [address] [place] [address] Phone [phone] Care Team Providers Care Deicer Inspector Pneumatic Name Role Phone Juancho Romero MD Primary Care Provider Reason for Visit * Reason Comments Dosage Adjustment Via Phone (anticoag Cl inic) Encounter Details Date Type Department Care Team (Latest Contact Info) Description 11/05/2023 6:30 AM EST Anticoagulation Pharmacy Call Center [address] [place] [address] [facility] 58 [address] [place] [address] Hx of pulmonary embolus*; Longstanding persistent atrial fibrillation (HCC) Allergies Active Allergy Reactions Criticality Noted Date Comments Penicillins Other (Please comment),Rash High Eyes swell Pollen 05/03/2022 Wound Dressing Adhesive Rash 05/02/2023 Patient reported documented as of this encounter (statuses as of 11/05/2023) Medications Medication Sig Dispensed Refills Start Date [...] albuterol 120 mL 5 11/21/2022 Active Ipratropium [place] 0.02 % Inhalation Solution (Atrovent)Indicatio ns:Moderate persistent [...] Respimat 2.5 MCG/ACT Inhalation Aerosol Solution (Tiotropium [place] Monohydrate)Indicat ions:Moderate persistent asthma without complication INHALE 2 PUFFS BY MOUTH EVERY DAY 12 g 3 04/30/2023 Active Rosuvastatin Calcium 10 MG Oral Tablet (Crestor) TAKE 1 TABLET BY MOUTH EVERY DAY 90 Tablet 1 05/27/2023 Active Warfarin Sodium 5 MG Oral Tablet (Coumadin)Indicatio ns:Pulmonary embolism and infarction (HCC) Take 0.5-1 Tablets by mouth every evening. Or take as instructed by the [facility] Coumadin Clinic 90 Tablet 3 08/09/2023 [...] Nasal Suspension (Flonase)Indication s:Acute cough Administer 1 [place] into each nostril in the morning and 1 [place] in the evening. Do all this for [...] as of this encounter (statuses as of 11/05/2023) Active Problems Problem Noted Date Diagnosed Date [...] rinse after steroid. Test performed by Sameer RN PROVIDER RELATIONS CPFT Hx of pulmonary embolus 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 Overview: [place] C0-M6 documented as of this encounter (statuses as of 11/05/2023) Resolved Problems Problem Noted Date Diagnosed Date [...] as of this encounter (statuses as of 11/05/2023) Immunizations Name Administration Dates Next Due COVID-19 mRNA, LNP-s, No Pre serve, 2-Dose Series ([employer]) 12/01/2021,01/16/2021,12/26/2020 COVID-19, LNP-s, No Preserve , Ozzy-sucrose, Ages 12+ (Pfizer) 12/01/2021 COVID-19, MRNA-LNP, 23-24, P F, 30 MCG/0.3 mL, 12 YRS AND ABOVE, IM ([employer]) 09/18/2023 Covid-19, Mrna, Lnp-s, Pf, B ivalent, 30 Mcg, IM, 12 yrs and above ([employer]) 10/09/2022 Pneumococcal Conjugate Vacc, 13 Valent (Prevnar) [...] of this encounter Progress Notes * Macie Wheeler, adult high school instructor - 11/05/2023 9:46 AM EST Contacts Type Contact Phone/Fax 11/05/2023 09:44 AM EST Phone (Outgoing) Patrick Robles" (Self) [phone] (H) Missing or Invalid Number 11/05/2023 09:44 AM EST Phone (Outgoing) Patrick Robles" (Self) [phone] (M) Left Message Subjective Advised patient to contact Anticoagulation Clinic if any unusual bruising or bleeding, recent illness, changes in medication, or questions/concerns. PT/INR results, Coumadin dose instructions, and next PT/INR date communicated as noted by Pharmacist: Yes ELLIE BUNCH 11/05/2023, 9:46 AM * Tammie Scruggs RP - 11/05/2023 9:34 AM EST Images from the original note were not included. 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 Tammie Scruggs RPh 11/05/2023, 9:34 AM * Camille Infante PHARM Tech - 11/04/2023 11:23 AM EST Received fax from [facility] with INR result from 11/04. INR = 3.1 Thank you, Camille Infante Gas Systems Worker [facility] ([facility]) 11/04/2023,11:23 AM documented in this encounter Plan of Treatment Upcoming Encounters Date Type Department Care Team (Late st Contact Info) Description 11/05/2023 10:30 AM EST Laboratory Laboratory [address] [place] [phone] [place] [address] 11/06/2023 11:15 AM EST Immunization/Injecti on Hematology/Oncology Treatment, [place] 200 [facility] [place] [address] Nurse, Med 4 200 [facility] [place] [address] 11/07/2023 2:00 PM EST Hem/Onc Treatment Hematology/Oncology Treatment, [place] 200 [facility] [place] [address] Park, Chair 6 Hem Onc [address] [place] [address] 11/19/2023 12:15 PM EST Office Visit [address] [address] Pablo Casanova, 16 [place] [address] 12/31/2023 1:00 PM EST Cardiac Studies Cardiology [address] [place] [address] [facility] 132 [facility] [address] 01/03/2024 10:30 AM EST Imaging Radiology [address] 132 [employer] [place] [address] 01/08/2024 10:00 AM EST Office Visit Hematology/Oncology [facility] [place] [address] [place] [address] Ludwig Louis MD [address] [place] [address] 02/11/2024 11:00 AM EDT Office Visit Family Medicine [address] [place] [phone] Bell Mcqueen MD [address] [place] [address] [place] [address] 08/10/2024 1:40 PM EDT Office Visit Rheumatology [address] [place] [phone] Win Nielsen MD [facility] [employer] [place] [address] Scheduled Procedures Name Priority Associated Diagnoses Date/Ti me ESOPHAGOGASTRODUODENOSCOPY ( EGD), FLEXIBLE, TRANSORAL, DIAGNOSTIC Recall Stark's esophagus with dysplasia Health Maintenance Due Date Last Done Comments Depression Screening 07/12/2021 07/12/2020 CKD PHOS USE SMARTSET 11741 08/21/202202/2021, 07/12/2020, 03/13/2019, Additional history exists *BISPHONATE OR OTHER ACCEPTABLE MEDICATION NEEDED FOR OSTEOPOROSIS (REFER TO SMARTSET #1146) 10/14/2023 Albumin/Creatinine Ratio 04/22/2024 023, 05/24/2022, 03/26/2022, Additional history exists TSH 10/08/2024 10/08/2023, 01/2023, 06/19/2023, Additional history exists CKD HGB USE SMARTSET 77964 10/29/202410/29, 10/29/2023, 10/22/2023, Additional history exists Stark's Esophagus Surveilance 02/26/2025 02/26/2022, 02/26/2022, 07/04/2021, Additional history exists DXA Scan 07/05/2025 07/05/2023, 10/19, 11/04/2018, Additional history exists DTaP,Tdap,and Td Vaccines (2 - Td or Tdap) 08/19/2027 08/19/2017, 08/20/2008 Pneumococcal Vaccine: 65+ Years Completed 06/23/2015, 05/14/2013, 04/18/2004 Zoster Vaccines Completed 12/02/2020, 08/15/2020 VITAMIN D LEVEL ONCE IN A LIFETIME-USE SMARTSET# [id number] Completed 04/22/2023, 08/28/2021, 07/14/2015 Influenza Vaccine (FLU [...] this encounter Medical Devices Implanted Type Area Casino Floor Person Device Identifier Shelf Expiration Date Model / Serial / Lot Power Port 8fr Sngl Lumen Plas - [id number] Implanted:Qty: 1 on 02/22/2022 at [facility]ARD : PERIPHERAL VASCULAR [id number] 02/15/2023 [id number] / / [id number] documented as of this encounter Procedures Procedure Name Priority Date/Time Associated Diagnosis Comments OUTSIDE LAB-PT/INR Routine 11/04/2023 documented in this encounter Results * OUTSIDE LAB-PT/INR (11/04/2023) INR-OUTSIDE LAB 3.1 History Per Patient LABORATORY documented in this encounter Visit Diagnoses Diagnosis Hx of pulmonary embolus- Primary Personal history of pulmonary embolism Longstanding persistent atrial fibrillation (HCC) documented in this encounter Advance Directives Latest Code Status on File Code Status Date Activated Date Inactivated Comments Full Code 09/03/2007 7:29 AM 09/03/2007 4:02 PM Care Teams Deicer Inspector Pneumatic Relationship Specialty Start Date End Date Juancho Romero MD [address] [place] [address] [place] [id number] PCP - General Family Medicine 12/27/16 documented as of this encounter
--- OUTSIDE RECORDS SUMMARY | 2024-01-23 21:12 | External Medical Summary ---
Author Name Unknown Address Unknown Organization K01:LABORATORY [facility] [place] - [facility] [address] [facility] [address] [place] [address] Laboratory Report Ordering Provider Test Date Status ADRIENNE SALCIDO 11/13/2023 11:27:53 Final Observation Date Value Abnormality Reference (Units ) Status WBC, Total 11/13/2023 11:27:53 4.43 4.00-10.80 (K/uL) Final RBC 11/13/2023 11:27:53 3.76 4.50-5.25 (M/uL) Final Hemoglobin 11/13/2023 11:27:53 10.1 Below low normal 14.0-16.8 (g/dL) Final HCT 11/13/2023 11:27:53 36.8 Below low normal 40.0-48.4 (%) Final MCV 11/13/2023 11:27:53 97.9 82.0-99.5 (fL) Final MCH 11/13/2023 11:27:53 26.9 27.0-34.0 (pg) Final MCHC 11/13/2023 11:27:53 27.4 32.0-36.0 (g/dL) Final RDW 11/13/2023 11:27:53 17.2 11.5-15.5 (%) Final Platelets 11/13/2023 11:27:53 132 Below low normal 140-400 (K/uL) Final MPV 11/13/2023 11:27:53 12.0 6.6-11.1 (fL) Final Nucleated erythrocytes/100 leukocytes [Ratio] in Blood by Automated count 11/13/2023 11:27:53 0 <=0 (/100 WBCs) Final Performing Location LABORATORY [facility] [place] - [address] [place] [address]
--- OUTSIDE RECORDS SUMMARY | 2024-01-23 21:12 | External Medical Summary | Summary of Care ---
Author Name Unknown Organization [facility] Address [address] [place] [address] Phone [phone] Care Team Providers Care Floor Director Name Role Phone Juancho Romero MD Primary Care Provider [phone] Reason for Visit * Reason Onset Date Comments Other 11/05/2023 Encounter Details Date Type Department Care Team (Late st Contact Info) Description 11/05/2023 Telephone Pharmacy Call Center [address] [place] [address] [facility] [address] [place] [address] Other Allergies Active Allergy Reactions Criticality Noted Date [...] albuterol 120 mL 5 11/21/2022 Active Ipratropium [place] 0.02 % Inhalation Solution (Atrovent)Indicatio ns:Moderate persistent [...] Respimat 2.5 MCG/ACT Inhalation Aerosol Solution (Tiotropium [place] Monohydrate)Indicat ions:Moderate persistent asthma without complication INHALE [...] Nasal Suspension (Flonase)Indication s:Acute cough Administer 1 [place] into each nostril in the morning and 1 Debary in the evening. Do all this for [...] stenosis 0 06/29/2009 Paroxysmal SVT (supraventricular tachycardia) 11 / ADVANCE DIRECTIVE INFORMATION 02/19/2006 Overview: No, Advance [...] rinse after steroid. Test performed by Sameer MUSEUM EXHIBIT TECHNICIAN CPFT Pleural plaque due to asbestos exposure Restrictive lung disease Overview: In Check dial performed to assess inhaler technique: 12/15/19 Name of inhalers Albuterol Pass: Yes at 60 L/min and Advair Pass: Yes at 60 L/min. Encouraged to to take deep breath, use aero chamber, and rinse after steroid. Test performed by Sameer MUSEUM EXHIBIT TECHNICIAN CPFT Hx of pulmonary embolus 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 Overview: [place] C0-M6 documented as of this encounter (statuses [...] infection 08/22/2005 04/05/2016 Anal fissure 06/04/2005 10/16/2007 senior care current use of ant icoagulant therapy 05/30/2005 [...] mRNA, LNP-s, No Pre serve, 2-Dose Series ([employer]) 12/01/2021,01/16/2021,12/26/2020 COVID-19, LNP-s, No Preserve , Ozzy-sucrose, Ages 12+ ([employer]) 12/01/2021 COVID-19, MRNA-LNP, 23-24, P F, 30 MCG/0.3 mL, 12 YRS AND ABOVE, IM ([facility] 09/18/2023 Covid-19, Mrna, Lnp-s, Pf, B ivalent, 30 Mcg, IM, 12 yrs and above ([employer]) 10/09/2022 Pneumococcal Conjugate Vacc, 13 Valent [...] encounter Miscellaneous Notes * Telephone Encounter - Poppy Santiago astronautical engineer - 11/05/2023 9:48 AM EST Pt spouse calling re missed call;advised message left. documented in this encounter Plan of Treatment Upcoming Encounters Date Type Department Care Team (Late st Contact Info) Description 11/05/2023 10:30 AM EST Laboratory Laboratory [address] [place] [phone] [place] [id number] 11/06/2023 11:15 AM EST Immunization/Injecti on Hematology/Oncology Treatment, [place] 200 [facility] [place] [address] Nurse, Med 4 200 [facility] [place] [address] 11/07/2023 2:00 PM EST Hem/Onc Treatment Hematology/Oncology Treatment, [place] 200 [facility] [place] [address] Park, Chair 6 Hem Onc [facility] 200 [facility] [place] [address] 11/19/2023 12:15 PM EST Office Visit [facility] 16 [place] [address] Pablo Casanova, 16 [place] [address] 12/31/2023 1:00 PM EST Cardiac Studies Cardiology [address] [place] [address] Movnava, Pacer [facility] 132 [facility] [place] [address] 01/03/2024 10:30 AM EST Imaging Radiology [address] [place] 132 [facility] [place] [address] 01/08/2024 10:00 AM EST Office Visit Hematology/Oncology [facility] [place] 200 [facility] [place] [address] Ludwig Louis MD 200 [facility] [place] [address] 02/11/2024 11:00 AM EDT Office Visit Family Medicine [address] [place] [phone] Bell Mcqueen MD [address] [place] [address] [place] [address] 08/10/2024 1:40 PM EDT Office Visit Rheumatology [address] [place] [phone] Win Nielsen MD [address] [employer] [place] [address] Scheduled Procedures Name Priority Associated Diagnoses Date/Ti me ESOPHAGOGASTRODUODENOSCOPY ( EGD), FLEXIBLE, TRANSORAL, DIAGNOSTIC Recall Stark's esophagus with dysplasia Health Maintenance Due Date Last Done Comments Depression Screening 07/12/2021 07/12/2020 CKD PHOS USE SMARTSET 54039 08/21/2022 100 02/2021, 07/12/2020, 03/13/2019, Additional history exists *BISPHONATE OR OTHER ACCEPTABLE MEDICATION NEEDED FOR OSTEOPOROSIS (REFER TO SMARTSET #1146) 10/14/2023 Albumin/Creatinine Ratio 04/22/2024 023, 05/24/2022, 03/26/2022, Additional history exists TSH 10/08/2024 10/08/2023, 100 01/2023, 06/19/2023, Additional history exists CKD HGB USE SMARTSET 59562 10/29/202410/29, 10/29/2023, 10/22/2023, Additional history exists Stark's Esophagus Surveilance 02/26/2025 02/26/2022, 02/26/2022, 07/04/2021, Additional history exists DXA Scan 07/05/2025 07/05/2023, 10/19, 11/04/2018, Additional history exists DTaP,Tdap,and Td Vaccines (2 - Td or Tdap) 08/19/2027 08/19/2017, 08/20/2008 Pneumococcal Vaccine: 65+ Years Completed 06/23/2015, 05/14/2013, 04/18/2004 Zoster Vaccines Completed 12/02/2020, 08/15/2020 VITAMIN D LEVEL ONCE IN A LIFETIME-USE SMARTSET# 16215 Completed 04/22/2023, 08/28/2021, 07/14/2015 Influenza Vaccine (FLU [...] this encounter Medical Devices Implanted Type Area Pony Ride Attendant Device Identifier Shelf Expiration Date Model / Serial / Lot Power Port 8fr Sngl Lumen Plas - [id number] Implanted:Qty: 1 on 02/22/2022 at [facility] : PERIPHERAL VASCULAR [id number] 02/15/2023 [id number] / / [id number] documented as of this encounter Advance Directives Latest Code Status on File Code Status Date Activated Date Inactivated Comments Full Code 09/03/2007 7:29 AM 09/03/2007 4:02 PM Care Teams Floor Director Relationship Specialty Start Date End Date Juancho Romero MD [address] [place] [address] [place] [id number] PCP - General Family Medicine 12/27/16 documented as of this encounter
--- OUTSIDE RECORDS SUMMARY | 2024-01-23 21:12 | External Medical Summary | Summary of Care ---
Author Name Unknown Organization [facility] Address [address] [place] [address] Phone [phone] Care Team Providers Care Mechanical Oxidizer Name Role Phone Juancho Romero MD Primary Care Provider [phone] Reason for Visit * Reason Comments Re-Check Encounter Details Date Type Department Care Team (Late st Contact Info) Description 11/04/2023 3:40 PM EST Office Visit Family Medicine [address] [phone] Bell Mcqueen MD [address] [place] [address] [place] [address] History of pneumonia*; Acute cough Allergies Active Allergy Reactions Criticality [...] albuterol 120 mL 5 11/21/2022 Active Ipratropium [place] 0.02 % Inhalation Solution (Atrovent)Indicatio ns:Moderate persistent [...] Respimat 2.5 MCG/ACT Inhalation Aerosol Solution (Tiotropium [place] Monohydrate)Indicat ions:Moderate persistent asthma without complication INHALE [...] Nasal Suspension (Flonase)Indication s:Acute cough Administer 1 [place] into each nostril in the morning and 1 [place] in the evening. Do all this for [...] rinse after steroid. Test performed by Sameer VALVE SETTER CPFT Pleural plaque due to asbestos exposure Restrictive lung disease Overview: In Check dial performed to assess inhaler technique: 12/15/19 Name of inhalers Albuterol Pass: Yes at 60 L/min and Advair Pass: Yes at 60 L/min. Encouraged to to take deep breath, use aero chamber, and rinse after steroid. 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 Overview: [place] C0-M6 documented as of this encounter (statuses [...] Malignant neoplasm of prostate 09/23/2008 03/27/2018 Overview: Topmost grade 3 Atrial flutter 09/02/2007 10/16/2007 Herpes [...] mRNA, LNP-s, No Pre serve, 2-Dose Series ([employer]) 12/01/2021,01/16/2021,12/26/2020 COVID-19, LNP-s, No Preserve , Ozzy-sucrose, Ages 12+ ([employer]) 12/01/2021 COVID-19, MRNA-LNP, 23-24, P F, 30 MCG/0.3 mL, 12 YRS AND ABOVE, IM ([facility]) 09/18/2023 Covid-19, Mrna, Lnp-s, Pf, B ivalent, 30 Mcg, IM, 12 yrs and above ([employer]) 10/09/2022 Pneumococcal Conjugate Vacc, 13 Valent (Prevnar) [...] Sign Reading Time Taken Comments Blood Pressure 128/56 11/04/2023 3:46 PM EST Pulse 82 11/04/2023 3:46 PM EST Temperature 36.3 C (97.3 F) 11/04/2023 3:46 PM ES T Respiratory Rate - - Oxygen Saturation 91% 11/04/2023 3:46 PM EST Inhaled Oxygen Concentration - - Weight 63.3 kg (139 lb 9.6 oz) 11/04/2023 3:46 P M EST Height - - Body Mass Index 24.73 09/19/2023 10:34 AM EDT documented in this encounter Progress Notes * Bell Mcqueen MD - 11/04/2023 3:50 PM EST Subjective: HPI: Patrick Robles is a 88 year old male with hx of AVR, MVR, afib on coumadin, Tachy-kurt syndrome s/psingle chamber pacemaker, HTN, HLD, b/l carotid aa stenosis, Hypothyroidism, Recurrent Urothelial carcinoma of the bladder, Asthma, CKD III, chronic anemia, on chronic prednisonepre seen for Pt recently completed 3 courses of abx - pt is feeling better but still having cough ---- worse at night - denied any fever or chills - SOB is better - was taking lasix every day for 4-5 days due to increased weight --- also take aldactone daily - last took lasix 2 days ago Patient Active Problem List Diagnosis Code History [...] 3b chronic kidney disease (HCC) I13.10, N18.32 Current Outpatient Medications Medication Sig Dispense Refill [...] Mix with albuterol 120 mL 5 Ipratropium [place] 0.02 % Inhalation Solution (Atrovent) Inhale 2.5 mL via nebulizer in the morning and 2.5 mL at noon and 2.5 mL in the evening and 2.5 mL before bedtime. Mix with albuterol solution. 75 mL 12 predniSONE 5 MG Oral Tablet (Deltasone) TAKE 1 TABLET BY MOUTH EVERY DAY 90 Tablet 3 Esomeprazole Magnesium 40 MG Oral Capsule Delayed Release TAKE 1 CAPSULE BY MOUTH TWICE A DAY 180 Capsule 1 traMADol HCl 50 MG Oral Tablet (Ultram) Take 1 Tablet by mouth every 6 hours as needed for Pain, Severe. 60 Tablet 0 Ferrous Sulfate 325 (65 Fe) MG Oral Tablet (Feosol) TAKE ONE TABLET BY MOUTH WITH FOOD DAILY 90 Tablet 3 Spiriva Respimat 2.5 MCG/ACT Inhalation Aerosol Solution (Tiotropium [place] Monohydrate) INHALE 2 PUFFS BY MOUTH EVERY DAY 12 g 3 Rosuvastatin Calcium 10 MG Oral Tablet (Crestor) TAKE 1 TABLET BY MOUTH EVERY DAY 90 Tablet 1 Warfarin Sodium 5 MG Oral Tablet (Coumadin) Take 0.5-1 Tablets by mouth every evening. Or take as instructed by the [facility] 90 Tablet 3 Spironolactone 25 MG Oral Tablet (Aldactone) Take 0.5 Tablets by mouth in the morning. 45 Tablet 3 Levothyroxine Sodium 125 MCG Oral Tablet (Levoxyl) TAKE 1 TAB BY MOUTH DAILY FIRST THING IN THE MORNING AT LEAST 30 MIN PRIOR TO BREAKFAST/OTHER MEDS 90 Tablet 0 Zolpidem Tartrate 5 MG Oral Tablet (Ambien) Take 1 Tablet by mouth at bedtime as needed for Sleep. 30 Tablet 0 Doxycycline Hyclate 100 MG Oral Capsule Take 1 Capsule by mouth in the morning and 1 Capsule beforebedtime. Do all this for 7 days. Take for 7 days. 14 Capsule 0 Furosemide 40 MG Oral Tablet (Lasix) Take one tablet daily and as directed for weight gain guaiFENesin ER 600 MG Oral Tablet Extended Release 12 Hour (Humibid LA) Take 1 Tablet by mouth in the morning and 1 Tablet before bedtime. 40 Tablet 0 Fluticasone Propionate 50 MCG/ACT Nasal Suspension (Flonase) Administer 1 [place] into each nostril in the morning and 1 [place] in the evening. Do all this for 5 days. 18.2 mL 0 Current Facility-Administered Medications Medication Dose Route Frequency Provider Last Rate Last Admin Albuterol Sulfate (Proventil) (5 MG/ML) 0.5% *conc* inhalation solution 2.5 mg 2.5 mg Nebulizer Gabbie Bradley CRNP Albuterol Sulfate (Proventil) (2.5 MG/3ML) 0.083% inhalation solution 2.5 mg 2.5 mg Nebulizer PRGabbie Mccoy CRNP 2.5 mg at 09/17/23 1015 Past Medical History: Diagnosis Date Acquired hypothyroidism Allergic rhinitis Anal fissure 05/2005 treated at [place] Anemia of chronic disease 04/15/2020 Aortic valve disorder Asbestosis (HCC) Asbestosis (HCC) Asthma Atrial fibrillation (HCC) 11/16/2004 Atrial flutter (HCC) 01/2004 early post cardiac surgery 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 Admitted [facility] EP study with ablation by Dr Gallardo 09/02/07 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 [place] C0-M6 Benign neoplasm of colon 03/09/2002 Benign [...] I impaired relaxation Long-segment Stark's esophagus 07/28/2020 [place] C0-M5 Malignant neoplasm of prostate (HCC) 09/23/2008 Farhad grade 3 Malignant neoplasm of sigmoid colon (HCC) [address] [place] Moderate persistent asthma without complication Paroxysmal SVT (supraventricular tachycardia) 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, 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/2007 Pulmonary arterial hypertension (HCC) Pulmonary embolus (HCC) Pulmonary hypertension (HCC) 04/26/2021 43 mm Restrictive lung disease SBE (subacute bacterial endocarditis) prophylaxis candidate Septic shock (HCC) 11/18/2016 [facility] transferred from [place] Spinal stenosis of lumbar region without neurogenic [...] gastric diverticulum ABLATE HEART DYSRHYTHM FOCUS 12/2014 [place]--Dr. Dillard ARTHROPLASTY KNEE TOTAL Left 05/09/2017 Dr Bautista [facility] BIOPSY OF PROSTATE 09/23/2008 Dr Goodwin [...] DIAGNOSTIC (RECTUM) 06/02/2015 TA polyp, referred to surgery/[facility] COLONOSCOPY, DIAGNOSTIC (RECTUM) 06/09/2018 normal/[facility] COLONOSCOPY, REMOVE LESION, CAUTERY 09/21/2009 anastomosis [...] 60% LVH EGD, FLEXIBLE, DIAGNOSTIC 06/02/2015 mild gastritis/[facility] EGD, FLEXIBLE, DIAGNOSTIC 06/09/2018 [place], hiatal hernia, gastric polyp, repeat 1 yr/[facility] EGD, FLEXIBLE, DIAGNOSTIC 07/07/2019 [place] / [facility] EGD, FLEXIBLE, DIAGNOSTIC N/A 12/01/2019 ESOPHAGOGASTRODUODENOSCOPY (EGD), FLEXIBLE, TRANSORAL, DIAGNOSTIC performed by Domingo Garcia DO at ENDOSCOPY [facility] EGD, FLEXIBLE, DIAGNOSTIC N/A 03/14/2020 Partially treated Stark's stage C0-M9 per [place] Criteria Multiple gastric polyps, performed by Domingo Garcia DO at ENDOSCOPY [facility] EGD, FLEXIBLE, DIAGNOSTIC N/A 05/25/2020 6 cm [place] C0-M6 Barretts lower esophagus, with radiofrequency ablation, performed by Domingo Garcia DO at ENDOSCOPY [facility] EGD, FLEXIBLE, DIAGNOSTIC N/A 07/28/2020 long segment Stark's [place] C0-M5, with nodlule at 31 cm, performed by Domingo Garcia DO at ENDOSCOPY [facility] EGD, FLEXIBLE, DIAGNOSTIC N/A 09/28/2020 C0-M1 Barretts, gastric polyps, 3 cm hiatal hernia, performed by Domingo Garcia, at ENDOSCOPY [facility] EGD, FLEXIBLE, DIAGNOSTIC N/A 11/30/2020 residual Stark's, performed by Domingo Garcia, at ENDOSCOPY [facility] EGD, FLEXIBLE, DIAGNOSTIC N/A 01/31/2021 residual Stark's EGD, FLEXIBLE, DIAGNOSTIC N/A 01/31/2021 ESOPHAGOGASTRODUODENOSCOPY (EGD), FLEXIBLE, TRANSORAL, DIAGNOSTIC performed by Doimngo Garcia DO at ENDOSCOPY [facility] EGD, FLEXIBLE, DIAGNOSTIC N/A 07/04/2021 ESOPHAGOGASTRODUODENOSCOPY (EGD), FLEXIBLE, TRANSORAL, DIAGNOSTIC performed by Domingo Garcia DO at ENDOSCOPY [facility] EGD, FLEXIBLE, DIAGNOSTIC 02/26/2022 short segment Stark's at 31 cm, GE flap Hill Grade IV, 4 cm hiatal hernia EGD, FLEXIBLE, DIAGNOSTIC N/A 02/26/2022 ESOPHAGOGASTRODUODENOSCOPY (EGD), FLEXIBLE, TRANSORAL, DIAGNOSTIC performed by Domingo Garcia DO at ENDOSCOPY [facility] EGD, FLEXIBLE, LESION ABLATION N/A 07/04/2021 2 cm hiatal hernia, Ablation of [place] C0-M1 Stark's, multiple fundic gland polyps ELECTROPHYSIOLOGIC [...] DDD NM BONE SCAN WHOLEBODY 10/06/2008 METs, [facility] NM HEPATOBILIARY SYSTEM WITH PHARMACOLOGIC INTERVENTION N/A 11/20/2016 no cystic duct obstruction PARTIAL REMOVAL OF COLON 04/21/2002 for tubulovillous adenoma, Dr Beasley at [facility] PARTIAL REMOVAL OF COLON 08/08/2015 right colectomy 08/08/2015 dr. de [facility] REMOVE CATARACT, INSERT LENS PROSTH 07/2012 Dr. Smith--right REMOVE TONSILS & ADENOIDS, UNDER 12 T & A, age<12 REPAIR INITIAL INGUINAL HERNIA REDUCIBLE AGE 5 OR MORE Left Inguianl hernia Repair, age 5+ yr REPLACEMENT AORTIC VALVE,NON-CORONARY SINUS 01/24/2004 23 CE pericardila AVR and 28 CE mitral valve ring Dr Soliz SPIROMETRY B/A BRONCHODILATOR 11/01/2011 normal VASC ANKLE BRACHIAL INDEX Bilateral 10/05/2022 R [...] Mother Other (cataract) Mother Heart Disorder Father DC in his 50's Diabetes Brother Cancer Brother [...] Pod No ROS: -Per HPI OBJECTIVE: BP 128/56 | Pulse 82 | Temp 36.3 C (97.3 F) | Wt 63.3 kg (139 lb 9.6 oz) | SpO2 91% | BMI 24.73kg/m | BSA 1.68 m PHYSICAL EXAM: Lungs: Good air entry b/l, no crackles or wheezing No LE pitting edema ASSESSMENT/PLAN: History of pneumonia (Primary) - completed the abx - doing better Acute cough - guaiFENesin ER 600 MG Oral Tablet Extended Release 12 Hour (Humibid LA); Take 1 Tablet by mouth in the morning and 1 Tablet before bedtime. - Fluticasone Propionate 50 MCG/ACT Nasal Suspension (Flonase); Administer 1 [place] into each nostril in the morning and 1 [place] in the evening. Do all this for 5 days. I spent a total of 30-39 minutes (exact time 32 mins) on the date of service in preparation, delivery, and documentation of the care provided to Patrick Robles excluding any time spent in the performance of separately billed services. Bell Mcqueen MD Family medicine, [address] [address] documented in this encounter Nursing Notes * Susan Smith CMA - 11/04/2023 3:43 PM EST He is here for a recheck today. He is doing well today. He still has a cough since having the pneumonia. documented in this encounter Plan of Treatment Upcoming Encounters Date Type Department Care Team (Late st Contact Info) Description 11/05/2023 6:30 AM EST Anticoagulation Pharmacy Call Center [address] [place] [address] [facility] [address] [place] [address] 11/05/2023 10:30 AM EST Laboratory Laboratory [address] [place] [phone] [place] [address] 11/06/2023 11:15 AM EST Immunization/Injection [facility]ematology[facility]cology [facility] [place] [facility] [address] Nurse, Med 200 [facility] [place] [address] 11/07/2023 2:00 PM EST Hem/Onc Treatment Hematology/Oncology Treatment, [place] [facility] [address] Park, Chair 6 Hem Onc [facility] 200 [facility] [place] [address] 11/19/2023 12:15 PM EST Office Visit [facility] 16 [place] [address] Pablo Casanova, 16 [place] [address] 12/31/2023 1:00 PM EST Cardiac Studies Cardiology [address] [place] [address] Og Frazier [facility] 132 [facility] [place] [address] 01/03/2024 10:30 AM EST Imaging Radiology [address] 132 [facility] [place] [address] 01/08/2024 10:00 AM EST Office Visit Hematology/Oncology [facility] [place] [address] [place] [address] Ludwig Louis MD 200 [facility] [place] [address] 02/11/2024 11:00 AM EDT Office Visit Family Medicine [address] [place] [phone] Bell Mcqueen MD [address] [place] [address] [place] [address] 08/10/2024 1:40 PM EDT Office Visit Rheumatology [address] [place] [phone] Win Nielsen MD [facility]0 [facility] [place] [address] Scheduled Procedures Name Priority Associated Diagnoses Date/Ti me ESOPHAGOGASTRODUODENOSCOPY ( EGD), FLEXIBLE, TRANSORAL, DIAGNOSTIC Recall Stark's esophagus with dysplasia Health Maintenance Due Date Last Done Comments Depression Screening 07/12/2021 07/12/2020 CKD PHOS USE SMARTSET 46827 08/21/2022 100 02/2021, 07/12/2020, 03/13/2019, Additional history exists *BISPHONATE OR OTHER ACCEPTABLE MEDICATION NEEDED FOR OSTEOPOROSIS (REFER TO SMARTSET #1146) 10/14/2023 Albumin/Creatinine Ratio 04/22/2024 023, 05/24/2022, 03/26/2022, Additional history exists TSH 10/08/2024 10/08/2023, 01/2023, 06/19/2023, Additional history exists CKD HGB USE SMARTSET 73245 10/29/202410/29, 10/29/2023, 10/22/2023, Additional history exists Stark's Esophagus Surveilance 02/26/2025 02/26/2022, 07/04/2021, 01/31/2021, Additional history exists DXA Scan 07/05/2025 07/05/2023, 10/19, 11/04/2018, Additional history exists DTaP,Tdap,and Td Vaccines (2 - Td or Tdap) 08/19/2027 08/19/2017, 08/20/2008 Pneumococcal Vaccine: 65+ Years Completed 06/23/2015, 05/14/2013, 04/18/2004 Zoster Vaccines Completed 12/02/2020, 08/15/2020 VITAMIN D LEVEL ONCE IN A LIFETIME-USE SMARTSET# [id number] Completed 04/22/2023, 08/28/2021, 07/14/2015 Influenza Vaccine (FLU [...] this encounter Medical Devices Implanted Type Area Bank President Device Identifier Shelf Expiration Date Model / Serial / Lot Power Port 8fr Sngl Lumen Plas - [id number] Implanted:Qty: 1 on 02/22/2022 at [facility] : PERIPHERAL VASCULAR [id number] 02/15/2023 [id number] / / [id number] documented as of this encounter Visit Diagnoses Diagnosis History of pneumonia- Primary Personal history of pneumonia (recurrent) Acute cough documented in this encounter Advance Directives Latest Code Status on File Code Status Date Activated Date Inactivated Comments Full Code 09/03/2007 7:29 AM 09/03/2007 4:02 PM Care Teams Mechanical Oxidizer Relationship Specialty Start Date End Date Juancho Romero MD [address] [place] [address] [place] [address] PCP - General Family Medicine 12/27/16 documented as of this encounter"
--- OUTSIDE RECORDS SUMMARY | 2024-01-23 21:12 | External Medical Summary | Summary of Care ---
Author Name Unknown Organization [facility] Address [address] [place] [address] Phone [phone] Care Team Providers Care Street Inspector Name Role Phone Juancho Romero MD Primary Care Provider Reason for Visit * Reason Comments Medication Administration procrit * Episode Based Medications (Routine) - Authorized Specialty Diagnoses / Procedures Referred By Contjocelyne t Referred To Contact Diagnoses Carcinoma of bladder (HCC) Iron deficiency anemia, unspecified iron deficiency anemia type Procedures W[place] INJ RETACRIT NON-ESRD USE [place] THERAPEUTIC PROPHYLACTIC/DX INJECTION SUBQ/IM [place] EPOETIN IVAN, NON-ESRD Ludwig Louis MD [address] [place] [address] Anc Hem/Onc Dony Hickman DEPT CLOSED - 10/01/23 [address] [place] [phone] Referral ID Status Reason Start Date Expiration Date V isits Requested Visits Authorized [id number] Authorized 09/12/2022 04/25/2024 999 [id number] Encounter Details Date Type Department Care Team (Late st Contact Info) Description 11/06/2023 11:15 AM EST Immunization/I njection Hematology/Oncology Treatment, [place] [address] [place] [address] Nurse, Med 4 [address] [place] [address] Carcinoma of bladder (HCC)*; Iron deficiency anemia, unspecified iron deficiency anemia type Allergies Active Allergy Reactions Criticality Noted Date Comments Penicillins Other (Please comment),Rash High Eyes swell Pollen 05/03/2022 Wound Dressing Adhesive Rash 05/02/2023 Patient reported documented as of this encounter (statuses as of 11/06/2023) Medications Medication Sig Dispensed Refills Start Date [...] albuterol 120 mL 5 11/21/2022 Active Ipratropium Leroy 0.02 % Inhalation Solution (Atrovent)Indicatio ns:Moderate persistent [...] Respimat 2.5 MCG/ACT Inhalation Aerosol Solution (Tiotropium [place] Monohydrate)Indicat ions:Moderate persistent asthma without complication INHALE [...] Nasal Suspension (Flonase)Indication s:Acute cough Administer 1 [place] into each nostril in the morning and 1 [place] in the evening. Do all this for [...] as of this encounter (statuses as of 11/06/2023) Active Problems Problem Noted Date Diagnosed Date [...] rinse after steroid. Test performed by Sameer EMPLOYMENT INTERVIEWER CPFT Pleural plaque due to asbestos exposure Restrictive lung disease Overview: In Check dial performed to assess inhaler technique: 12/15/19 Name of inhalers Albuterol Pass: Yes at 60 L/min and Advair Pass: Yes at 60 L/min. Encouraged to to take deep breath, use aero chamber, and rinse after steroid. 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 Overview: [place] C0-M6 documented as of this encounter (statuses as of 11/06/2023) Resolved Problems Problem Noted Date Diagnosed Date [...] Malignant neoplasm of prostate 09/23/2008 03/27/2018 Overview: [place] grade 3 Atrial flutter 09/02/2007 10/16/2007 Herpes simplex virus infection 08/22/2005 04/05/2016 Anal fissure 06/04/2005 10/16/2007 senior living current use of ant icoagulant therapy 05/30/2005 [...] as of this encounter (statuses as of 11/06/2023) Immunizations Name Administration Dates Next Due COVID-19 mRNA, LNP-s, No Pre serve, 2-Dose Series ([facility]) 12/01/2021,01/16/2021,12/26/2020 COVID-19, LNP-s, No Preserve , Ozzy-sucrose, Ages 12+ ([facility]) 12/01/2021 COVID-19, MRNA-LNP, 23-24, P F, 30 MCG/0.3 mL, 12 YRS AND ABOVE, IM ([facility] 09/18/2023 Covid-19, Mrna, Lnp-s, Pf, B ivalent, [...] Sign Reading Time Taken Comments Blood Pressure 99/61 11/06/2023 11:11 AM EST Pulse 78 11/06/2023 11:11 AM EST Temperature 36.6 C (97.9 F) 11/06/2023 11:[address] Respiratory Rate 18 11/06/2023 11:11 AM EST Oxygen Saturation 95% 11/06/2023 11:11 AM EST Inhaled Oxygen Concentration - - Weight - - Height - - Body Mass Index - - documented in this encounter Nursing Notes * Kimberly Cao RN - 11/06/2023 11:12 AM EST Chair 6, procrit for Hgb 10.2. BP within normal limits. Procrit administered per order; pt tolerated well. Pt discharged in stable condition. documented in this encounter Plan of Treatment Upcoming Encounters Date Type Department Care Team (Late st Contact Info) Description 11/07/2023 2:00 PM EST Hem/Onc Treatment Hematology/Oncology Treatment, [address] [place] [address] Marylou, Chair 6 Hem Onc [address] [place] [address] 11/13/2023 10:30 AM EST Laboratory Laboratory [address] [place] [phone] [address] [place] [address] 11/14/2023 11:15 AM EST Immunization/Injection Hematology/Oncology Treatment, [place] 200 [facility] [place] [address] Nurse, Med 200 [facility] [place] [address] 11/19/2023 6:30 AM EST Anticoagulation Pharmacy Call Center WB 58[address]60 [facility] [place] [address] [facility] 58 60 [facility] [place] [address] 11/19/2023 12:15 PM EST Office Visit [facility] [address] [place] [address] Pablo Casanova, 16 [place] [address] 11/20/2023 10:30 AM EST Laboratory Laboratory [address] [place] [phone] [place] [address] 11/21/2023 11:00 AM EST Immunization/Injection [facility]ematology[facility] Treatment, [place] 200 [facility] [address] Nurse, Med 4 200 [facility] [place] [address] 11/28/2023 10:30 AM EST Laboratory Laboratory [address] [place] [phone] [place] [address] 11/28/2023 11:15 AM EST Immunization/Injection Hematology/Oncology Treatment, [place] 200 [facility] [place] [address] Nurse, Med 4 200 [facility] [place] [address] 12/11/2023 10:30 AM EST Laboratory Laboratory [address] [place] [phone] [place] [address] 12/12/2023 11:00 AM EST Immunization/Injection Hematology[facility]Oncology Treatment, [place] 200 [facility] [address] Nurse, Med 4 200 [facility] [place] [address] 12/31/2023 1:00 PM EST Cardiac Studies Cardiology [address] [place] [address] [facility] 132 [facility] [place] [address] 01/03/2024 10:30 AM EST Imaging Radiology [address] [place] [address] 01/08/2024 10:00 AM EST Office Visit Hematology/Oncology [facility] [address] [place] [address] Ludwig Louis MD [address] [place] [address] 02/11/2024 11:00 AM EDT Office Visit Family Medicine [address] [place] [phone] Bell Mcqueen MD [address] [place] [address] [place] [address] 08/10/2024 1:40 PM EDT Office Visit Rheumatology [address] [place] [address] Win Nielsen MD [address] [place] [address] [place] [address] Scheduled Procedures Name Priority Associated Diagnoses Date/Ti me ESOPHAGOGASTRODUODENOSCOPY ( EGD), FLEXIBLE, TRANSORAL, DIAGNOSTIC Recall Stark's esophagus with dysplasia Health Maintenance Due Date Last Done Comments Depression Screening 07/12/2021 07/12/2020 CKD PHOS USE SMARTSET 02546 08/21/2022 10/0 02/2021, 07/12/2020, 03/13/2019, Additional history exists *BISPHONATE OR OTHER ACCEPTABLE MEDICATION NEEDED FOR OSTEOPOROSIS (REFER TO SMARTSET #1146) 10/14/2023 Albumin/Creatinine Ratio 04/22/2024 023, 05/24/2022, 03/26/2022, Additional history exists TSH 10/08/2024 10/08/2023, 10/0 01/2023, 06/19/2023, Additional history exists CKD HGB USE SMARTSET 04955 11/05/202411/05, 11/05/2023, 10/29/2023, Additional history exists Stark's Esophagus Surveilance 02/26/2025 02/26/2022, 02/26/2022, 07/04/2021, Additional history exists DXA Scan 07/05/2025 07/05/2023, 10/19, 11/04/2018, Additional history exists DTaP,Tdap,and Td Vaccines (2 - Td or Tdap) 08/19/2027 08/19/2017, 08/20/2008 Pneumococcal Vaccine: 65+ Years Completed 06/23/2015, 05/14/2013, 04/18/2004 Zoster Vaccines Completed 12/02/2020, 08/15/2020 VITAMIN D LEVEL ONCE IN A LIFETIME-USE SMARTSET# [id number] Completed 04/22/2023, 08/28/2021, 07/14/2015 Influenza Vaccine (FLU [...] this encounter Medical Devices Implanted Type Area Hand Bootmaker Device Identifier Shelf Expiration Date Model / Serial / Lot Power Port 8fr Sngl Lumen Plas - [id number] Implanted:Qty: 1 on 02/22/2022 at [facility] CR BARD : PERIPHERAL VASCULAR [id number] 02/15/2023 [id number] / / [id number] documented as of this encounter Visit Diagnoses Diagnosis Carcinoma of bladder (HCC)- Primary Malignant neoplasm of bladder, part unspecified Iron deficiency anemia, unspecified iron deficiency anemia type documented in this encounter Administered Medications Inactive Administered Medications - up to 3 most recent administrations Medication Order MAR Action Action Date Dose Rate Site Epoetin Ivan 33094 UNIT/ML inj 40,000 Units 40,000 Units, Subcutaneous, ONCE, On Sat11/06/23 at 1145, For 1 dose Given 11/06/2023 11:30 AM EST 40,000 Units Arm Left Upper documented in this encounter Advance Directives Latest Code Status on File Code Status Date Activated Date Inactivated Comments Full Code 09/03/2007 7:29 AM 09/03/2007 4:[address] Inspector Relationship Specialty Start Date End Date Juancho Romero MD [address] [place] [address] [place] [phone] PCP - General Family Medicine 12/27/16 documented as of this encounter
--- OUTSIDE RECORDS SUMMARY | 2024-01-23 21:12 | External Medical Summary | Summary of Care ---
Author Name Unknown Organization [facility] Address [address] [place] [address] Phone [phone] Care Team Providers Care Instructor Watch Assembly Name Role Phone Juancho Romero MD Primary Care Provider [phone] Reason for Visit * Reason Comments Outpatient Testing Encounter Details Date Type Department Care Team (Late st Contact Info) Description 11/05/2023 10:30 AM EST Laboratory Laboratory [address] [place] [phone] [place] [address] Urothelial carcinoma of bladder (HCC) Allergies Active [...] albuterol 120 mL 5 11/21/2022 Active Ipratropium [place] 0.02 % Inhalation Solution (Atrovent)Indicatio ns:Moderate persistent [...] Respimat 2.5 MCG/ACT Inhalation Aerosol Solution (Tiotropium [place] Monohydrate)Indicat ions:Moderate persistent asthma without complication INHALE 2 PUFFS BY MOUTH EVERY DAY 12 g 3 04/30/2023 Active Rosuvastatin Calcium 10 MG Oral Tablet (Crestor) TAKE 1 TABLET BY MOUTH EVERY DAY 90 Tablet 1 05/27/2023 Active Warfarin Sodium 5 MG Oral Tablet (Coumadin)Indicatio ns:Pulmonary embolism and infarction (HCC) Take 0.5-1 Tablets by mouth every evening. Or take as instructed by the [facility] 90 Tablet 3 [...] Nasal Suspension (Flonase)Indication s:Acute cough Administer 1 [place] into each nostril in the morning and 1 [place] in the evening. Do all this for [...] rinse after steroid. Test performed by Sameer CONDENSER CLEANER CPFT Pleural plaque due to asbestos exposure Restrictive lung disease Overview: In Check dial performed to assess inhaler technique: 12/15/19 Name of inhalers Albuterol Pass: Yes at 60 L/min and Advair Pass: Yes at 60 L/min. Encouraged to to take deep breath, use aero chamber, and rinse after steroid. 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 05/30/2005 [...] mRNA, LNP-s, No Pre serve, 2-Dose Series ([facility]) 12/01/2021,01/16/2021,12/26/2020 COVID-19, LNP-s, No Preserve , Ozzy-sucrose, Ages 12+ ([facility]) 12/01/2021 COVID-19, MRNA-LNP, 23-24, P F, 30 MCG/0.3 mL, 12 YRS AND ABOVE, IM ([facility]) 09/18/2023 Covid-19, Mrna, Lnp-s, Pf, B ivalent, 30 Mcg, IM, 12 yrs and above ([facility]) 10/09/2022 Pneumococcal Conjugate Vacc, 13 Valent (Prevnar) [...] Contact Info) Description 11/06/2023 11:15 AM EST Immunization/Injecti on Hematology/Oncology Treatment, [place] 200 [facility] [place] [address] Nurse, Med 4 [address] [place] [address] 11/07/2023 2:00 PM EST Hem/Onc Treatment Hematology/Oncology Treatment, [place] [address] [facility] [place] [address] Marylou, Chair 6 Hem Onc [place] [address] [place] [address] 11/19/2023 12:15 PM EST Office Visit [facility] 16 [place] [address] Pablo Casanova, 16 [place] [address] 12/31/2023 1:00 PM EST Cardiac Studies Cardiology [address] [place] [address] [facility] 132 [place] [address] 01/03/2024 10:30 AM EST Imaging Radiology [address] 132 [place] [address] 01/08/2024 10:00 AM EST Office Visit Hematology/Oncology [facility] [address] [place] [address] Ludwig Louis MD [address] [place] [address] 02/11/2024 11:00 AM EDT Office Visit Family Medicine [address] [place] [phone] Bell Mcqueen MD [address] [place] [address] [place] [address] 08/10/2024 1:40 PM EDT Office Visit Rheumatology [address] [place] [phone] Win Nielsen MD [address] [place] [address] [place] [address] Pending Results Name Type Priority Associated Diagnoses Date /Time CBC WITH WBC DIFFERENTIAL Lab STAT Urothelial carcinoma of bladder (HCC) 11/05/2023 10:43 AM EST CBC Lab STAT Urothelial carcinoma of bladder (HCC) 11/05/2023 10:43 AM EST DIFFERENTIAL, AUTOMATED Lab STAT Urothelial carcinoma of bladder (HCC) 11/05/2023 10:43 AM EST Scheduled Procedures Name Priority Associated Diagnoses Date/Ti me ESOPHAGOGASTRODUODENOSCOPY ( EGD), FLEXIBLE, TRANSORAL, DIAGNOSTIC Recall Stark's esophagus with dysplasia Health Maintenance Due Date Last Done Comments Depression Screening 07/12/2021 07/12/2020 CKD PHOS USE SMARTSET 95898 08/21/2022 100 02/2021, 07/12/2020, 03/13/2019, Additional history exists *BISPHONATE OR OTHER ACCEPTABLE MEDICATION NEEDED FOR OSTEOPOROSIS (REFER TO SMARTSET #1146) 10/14/2023 Albumin/Creatinine Ratio 04/22/2024 023, 05/24/2022, 03/26/2022, Additional history exists TSH 10/08/2024 10/08/2023, 100 01/2023, 06/19/2023, Additional history exists CKD HGB USE SMARTSET 72116 10/29/202410/29, 10/29/2023, 10/22/2023, Additional history exists Stark's Esophagus Surveilance 02/26/2025 02/26/2022, 02/26/2022, 07/04/2021, Additional history exists DXA Scan 07/05/2025 07/05/2023, 10/19, 11/04/2018, Additional history exists DTaP,Tdap,and Td Vaccines (2 - Td or Tdap) 08/19/2027 08/19/2017, 08/20/2008 Pneumococcal Vaccine: 65+ Years Completed 06/23/2015, 05/14/2013, 04/18/2004 Zoster Vaccines Completed 12/02/2020, 08/15/2020 VITAMIN D LEVEL ONCE IN A LIFETIME-USE SMARTSET# [id number] Completed 04/22/2023, 08/28/2021, 07/14/2015 Influenza Vaccine (FLU [...] this encounter Medical Devices Implanted Type Area Instructional Technology Coordinator Device Identifier Shelf Expiration Date Model / Serial / Lot Power Port 8fr Sngl Lumen Plas - [id number] Implanted:Qty: 1 on 02/22/2022 at [facility] CR BARD : PERIPHERAL VASCULAR [id number] 02/15/2023 [id number] / / [id number] documented as of this encounter Visit Diagnoses Diagnosis Urothelial carcinoma of bladder (HCC) documented in this encounter Advance Directives Latest Code Status on File Code Status Date Activated Date Inactivated Comments Full Code 09/03/2007 7:29 AM 09/03/2007 4:02 PM Care Teams Instructor Watch Assembly Relationship Specialty Start Date End Date Juancho Romero MD [address] [place] [address] [place] [phone] PCP - General Family Medicine 12/27/16 documented as of this encounter
--- OUTSIDE RECORDS SUMMARY | 2024-01-23 21:13 | External Medical Summary | Summary of Care ---
Author Name Unknown Organization [facility] Address [address] [place] [address] Phone [phone] Care Team Providers Care Web Analytics Developer Name Role Phone Juancho Romero MD Primary Care Provider Encounter Details Date Type Department Care Team (Late st Contact Info) Description 11/02/2023 Orders Only Hematology/Oncology, [facility] [address] [place] [address] Ludwig Louis MD [address] [place], [place] [phone] Allergies Active Allergy Reactions Criticality Noted Date Comments Penicillins Other (Please comment),Rash High Eyes swell Pollen 05/03/2022 Wound Dressing Adhesive Rash 05/02/2023 Patient reported documented as of this encounter (statuses as of 11/02/2023) Medications Medication Sig Dispensed Refills Start Date [...] albuterol 120 mL 5 11/21/2022 Active Ipratropium [place] 0.02 % Inhalation Solution (Atrovent)Indicatio ns:Moderate persistent [...] Respimat 2.5 MCG/ACT Inhalation Aerosol Solution (Tiotropium [place] Monohydrate)Indicat ions:Moderate persistent asthma without complication INHALE 2 PUFFS BY MOUTH EVERY DAY 12 g 3 04/30/2023 Active Rosuvastatin Calcium 10 MG Oral Tablet (Crestor) TAKE 1 TABLET BY MOUTH EVERY DAY 90 Tablet 1 05/27/2023 Active Warfarin Sodium 5 MG Oral Tablet (Coumadin)Indicatio ns:Pulmonary embolism and infarction (HCC) Take 0.5-1 Tablets by mouth every evening. Or take as instructed by the [facility] 90 Tablet 3 [...] for Sleep. 30 Tablet 0 10/09/2023 Active Azithromycin 250 MG Oral Tablet (Zithromax)Indicati ons:Pneumonia of both lower lobes due to infectious organism Take 2 tabs by mouth on the first day, then 1 tab daily on days two through five 6 Tablet 0 10/29/2023 11/03/2023 Active Doxycycline Hyclate 100 MG Oral CapsuleIndications: [...] as of this encounter (statuses as of 11/02/2023) Active Problems Problem Noted Date Diagnosed Date [...] after steroid. Test performed by Sameer SUPERVISOR [employer] CPFT Pleural plaque due to asbestos exposure Restrictive lung disease Overview: In Check dial performed to assess inhaler technique: 12/15/19 Name of inhalers Albuterol Pass: Yes at 60 L/min and Advair Pass: Yes at 60 L/min. Encouraged to to take deep breath, use aero chamber, and rinse after steroid. Test performed by Sameer SUPERVISOR [employer] CPFT Hx of pulmonary embolus 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 Overview: [place] C0-M6 documented as of this encounter (statuses as of 11/02/2023) Resolved Problems Problem Noted Date Diagnosed Date [...] Malignant neoplasm of prostate 09/23/2008 03/27/2018 Overview: [place] grade 3 Atrial flutter 09/02/2007 10/16/2007 Herpes [...] as of this encounter (statuses as of 11/02/2023) Immunizations Name Administration Dates Next Due COVID-19 mRNA, LNP-s, No Pre serve, 2-Dose Series ([facility]) 12/01/2021,01/16/2021,12/26/2020 COVID-19, LNP-s, No Preserve , Ozzy-sucrose, Ages 12+ ([facility]) 12/01/2021 COVID-19, MRNA-LNP, 23-24, P F, 30 MCG/0.3 mL, 12 YRS AND ABOVE, IM ([facility]) 09/18/2023 Covid-19, Mrna, Lnp-s, Pf, B ivalent, 30 Mcg, IM, 12 yrs and above ([facility]) 10/09/2022 Pneumococcal Conjugate Vacc, 13 Valent (Prevnar) [...] Team (Late st Contact Info) Description 11/04/2023 6:30 AM EST Anticoagulation Pharmacy Call Center 58-60 [facility] [place] [address] [facility] 58 60 [facility] [place] [address] 11/04/2023 3:40 PM EST Office Visit Family Medicine [address] [place] [phone] Bell Mcqueen MD [address] [place] [address] [place] [address] 11/05/2023 10:30 AM EST Laboratory Laboratory [address] [place] [phone] [facility] [address] [place] [address] 11/06/2023 11:15 AM EST Immunization/Injection Hematology[facility]cology Treatment, [place] [facility] [address] Nurse, Med 4 200 [facility] [address] 11/07/2023 2:00 PM EST Hem/Onc Treatment Hematology/Oncology Treatment, [place] [facility] [address] Park, Chair 6 Hem Onc [facility] 200 [facility] [place] [address] 11/19/2023 12:15 PM EST [facility] 16 [place] [address] Pablo Casanova, 16 [place] [address] 12/31/2023 1:00 PM EST Cardiac Studies Cardiology [address] [place] [address] Og [facility] 132 [facility] [place] [address] 01/03/2024 10:30 AM EST Imaging Radiology [facility] 1st [facility] 132 [facility] [place] [address] 01/08/2024 10:00 AM EST Office Visit Hematology/Oncology [facility] [place] 200 [facility] [place] [address] Ludwig Louis MD [address] [place] [address] 08/10/2024 1:40 PM EDT Office Visit Rheumatology [address] [place] [phone] Win Nielsen MD [address] [place] [address] [place] [address] Scheduled Procedures Name Priority Associated Diagnoses Date/Ti me ESOPHAGOGASTRODUODENOSCOPY ( EGD), FLEXIBLE, TRANSORAL, DIAGNOSTIC Recall Stark's esophagus with dysplasia Health Maintenance Due Date Last Done Comments Depression Screening 07/12/2021 07/12/2020 CKD PHOS USE SMARTSET 48276 08/21/202202/2021, 07/12/2020, 03/13/2019, Additional history exists *BISPHONATE OR OTHER ACCEPTABLE MEDICATION NEEDED FOR OSTEOPOROSIS (REFER TO SMARTSET #1146) 10/14/2023 Albumin/Creatinine Ratio 04/22/2024 023, 05/24/2022, 03/26/2022, Additional history exists TSH 10/08/2024 10/08/2023, 01/2023, 06/19/2023, Additional history exists CKD HGB USE SMARTSET 87408 10/29/202410/29, 10/29/2023, 10/22/2023, Additional history exists Stark's Esophagus Surveilance 02/26/2025 02/26/2022, 07/04/2021, 01/31/2021, Additional history exists DXA Scan 07/05/2025 07/05/2023, 10/19, 11/04/2018, Additional history exists DTaP,Tdap,and Td Vaccines (2 - Td or Tdap) 08/19/2027 08/19/2017, 08/20/2008 Pneumococcal Vaccine: 65+ Years Completed 06/23/2015, 05/14/2013, 04/18/2004 Zoster Vaccines Completed 12/02/2020, 08/15/2020 VITAMIN D LEVEL ONCE IN A LIFETIME-USE SMARTSET# [id number] Completed 04/22/2023, 08/28/2021, 07/14/2015 Influenza Vaccine (FLU [...] this encounter Medical Devices Implanted Type Area College Director Device Identifier Shelf Expiration Date Model / Serial / Lot Power Port 8fr Sngl Lumen Plas - [id number] Implanted:Qty: 1 on 02/22/2022 at [facility] CR BARD : PERIPHERAL VASCULAR [id number] 02/15/2023 [id number] / / [id number] documented as of this encounter Advance Directives Latest Code Status on File Code Status Date Activated Date Inactivated Comments Full Code 09/03/2007 7:29 AM 09/03/2007 4:02 PM Care Teams Web Analytics Developer Relationship Specialty Start Date End Date Juancho Romero MD [address] [place] [address] [place] [phone] PCP - General Family Medicine 12/27/16 documented as of this encounter
--- OUTSIDE RECORDS SUMMARY | 2024-01-23 21:13 | External Medical Summary | Summary of Care ---
Author Name Unknown Organization [facility] Address [address] [place] [address] Phone [phone] Care Team Providers Care Coating Technician Name Role Phone Juancho Romero MD Primary Care Provider Reason for Visit * Reason Comments Outpatient Testing Encounter Details Date Type Department Care Team (Late st Contact Info) Description 10/29/2023 1:10 PM EST Laboratory Laboratory [address] [place] [phone] [place] [address] Pneumonia of both lower lobes due to infectious organism Allergies Active Allergy Reactions Criticality Noted Date Comments Penicillins Other (Please comment),Rash High Eyes swell Pollen 05/03/2022 Wound Dressing Adhesive Rash 05/02/2023 Patient reported documented as of this encounter (statuses as of 10/29/2023) Medications Medication Sig Dispensed Refills Start Date [...] albuterol 120 mL 5 11/21/2022 Active Ipratropium [place] 0.02 % Inhalation Solution (Atrovent)Indicatio ns:Moderate persistent [...] Respimat 2.5 MCG/ACT Inhalation Aerosol Solution (Tiotropium [place] Monohydrate)Indicat ions:Moderate persistent asthma without complication INHALE 2 PUFFS BY MOUTH EVERY DAY 12 g 3 04/30/2023 Active Furosemide 40 MG Oral Tablet (Lasix)Indications: Acute on chronic diastolic congestive heart failure (HCC) Take one tablet three times per week and as directed for weight gain 60 Tablet 3 05/08/2023 Active Rosuvastatin Calcium 10 MG Oral Tablet [...] for Sleep. 30 Tablet 0 10/09/2023 Active levoFLOXacin 750 MG Oral Tablet (Levaquin)Indicatio ns:Pneumonia of both lungs due to infectious organism, unspecified part of lung Take 1 Tablet by mouth every other day for 4 doses. until gone. 4 Tablet 0 10/23/2023 10/30/2023 Active Hospital, Clinic, or Other Facility Administered [...] as of this encounter (statuses as of 10/29/2023) Active Problems Problem Noted Date Diagnosed Date Encounter for central line care 06/17/2023 Acquired hypothyroidism 04/22/2023 Asbestosis 03/26/2022 Iron deficiency anemia 03/21/2022 Carcinoma of bladder 07/18/2021 Pulmonary hypertension 04/26/2021 Overview: 43 mm Urothelial carcinoma of bladder 04/11/2021 Overview: high grade invasive papillary urothelial carcinoma Chronic kidney disease, stage 3a 03/28/2021 Overview: Per CKD protocol Hypertensive heart and kidne y disease without heart failure and with stage 3a chronic kidney disease 09/26/2020 Overview: Per CKD protocol Long-segment Stark's esophagus 07/28/2020 ROMERO (dyspnea on [...] rinse after steroid. Test performed by [facility] [employer] [facility] Pleural plaque due to asbestos exposure Restrictive lung disease Overview: In Check dial performed to assess inhaler technique: 12/15/19 Name of inhalers Albuterol Pass: Yes at 60 L/min and Advair Pass: Yes at 60 L/min. Encouraged to to take deep breath, use aero chamber, and rinse after steroid. 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 [...] as of this encounter (statuses as of 10/29/2023) Immunizations Name Administration Dates Next Due COVID-19 mRNA, LNP-s, No Pre serve, 2-Dose Series (adicate timeads) 12/01/2021,01/16/2021,12/26/2020 COVID-19, LNP-s, No Preserve , Ozzy-sucrose, Ages 12+ (Pfizer) 12/01/2021 COVID-19, MRNA-LNP, 23-24, P F, 30 MCG/0.3 mL, 12 YRS AND ABOVE, IM (Pulsant-Comirnat) 09/18/2023 Covid-19, Mrna, Lnp-s, Pf, B ivalent, [...] Care Team (Late st Contact Info) Description 10/29/2023 1:40 PM EST Imaging Radiology [address] [place] [address] Arrived 10/30/2023 11:15 AM EST Immunization/Injection Hematology/Oncology Treatment, [place] [address] [place] [facility] [place] [address] [facility] [address] [facility] [address] 11/04/2023 6:30 AM EST Anticoagulation Pharmacy Call Center [address] [place] [address] [facility] [address] [place] [address] 11/04/2023 3:40 PM EST Office Visit Family Medicine [address] [place] [phone] Bell Mcqueen MD [address] [place] [address] [place] [address] 11/05/2023 10:30 AM EST Laboratory Laboratory [address] [place] [phone] [place], Lab [address] [place] [address] 11/06/2023 11:15 AM EST Immunization/Injection Hematology/Oncology Treatment, [place] [address] [place] [address] Nurse, Med [address] [facility] [place] [address] 11/19/2023 12:15 PM EST Office Visit [facility] [address] [place] [address] Pablo Casanova, [address] [place] [address] 12/31/2023 1:00 PM EST Cardiac Studies Cardiology [address] [place] [address] Og Frazier [facility] [address] [facility] [place] [address] 01/03/2024 10:30 AM EST Imaging Radiology [address] [facility] [place] [address] 01/08/2024 10:00 AM EST Office Visit Hematology/Oncology [facility] [place] [address] [place] [address] Ludwig Louis MD [address] [facility] [place] [address] 08/10/2024 1:40 PM EDT Office Visit Rheumatology [address] [place] [phone] Win Nielsen MD [facility] [place] [address] Pending Results Name Type Priority Associated Diagnoses Date /Time BNP, NT-PRO Lab Routine Pneumonia of both lower lobes due to infectious organism 10/29/2023 1:11 PM EST [facility]ER Lab Routine Pneumonia of both lower lobes due to infectious organism 10/29/2023 1:11 PM EST Scheduled Procedures Name Priority Associated Diagnoses Date/Ti me ESOPHAGOGASTRODUODENOSCOPY ( EGD), FLEXIBLE, TRANSORAL, DIAGNOSTIC Recall Stark's esophagus with dysplasia Health Maintenance Due Date Last Done Comments Depression Screening 07/12/2021 07/12/2020 CKD PHOS USE SMARTSET 25405 08/21/2022 100 02/2021, 07/12/2020, 03/13/2019, Additional history exists *BISPHONATE OR OTHER ACCEPTABLE MEDICATION NEEDED FOR OSTEOPOROSIS (REFER TO SMARTSET #1146) 10/14/2023 Albumin/Creatinine Ratio 04/22/2024 023, 05/24/2022, 03/26/2022, Additional history exists TSH 10/08/2024 10/08/2023, 01/2023, 06/19/2023, Additional history exists CKD HGB USE SMARTSET 79918 10/22/202410/22, 10/22/2023, 10/15/2023, Additional history exists Stark's Esophagus Surveilance 02/26/2025 02/26/2022, 07/04/2021, 01/31/2021, Additional history exists DXA Scan 07/05/2025 07/05/2023, 10/19, 11/04/2018, Additional history exists DTaP,Tdap,and Td Vaccines (2 - Td or Tdap) 08/19/2027 08/19/2017, 08/20/2008 Pneumococcal Vaccine: 65+ Years Completed 06/23/2015, 05/14/2013, 04/18/2004 Zoster Vaccines Completed 12/02/2020, 08/15/2020 VITAMIN D LEVEL ONCE IN A LIFETIME-USE SMARTSET# [id number] Completed 04/22/2023, 08/28/2021, 07/14/2015 Influenza Vaccine (FLU [...] this encounter Medical Devices Implanted Type Area Crew Leader/Control Room Operator Device Identifier Shelf Expiration Date Model / Serial / Lot Power Port 8fr Sngl Lumen Plas - [id number] Implanted:Qty: 1 on 02/22/2022 at [facility] : PERIPHERAL VASCULAR [id number] 02/15/2023 [id number] / / [id number] documented as of this encounter Visit Diagnoses Diagnosis Pneumonia of both lower lobes due to infectious organism documented in this encounter Advance Directives Latest Code Status on File Code Status Date Activated Date Inactivated Comments Full Code 09/03/2007 7:29 AM 09/03/2007 4:02 PM Care Teams Coating Technician Relationship Specialty Start Date End Date Juancho Romero MD [address] [place] [address] [place] [address] PCP - General Family Medicine 12/27/16 documented as of this encounter
--- OUTSIDE RECORDS SUMMARY | 2024-01-23 21:13 | External Medical Summary | Summary of Care ---
Author Name Unknown Organization [facility] Address [address] [place] [address] Phone [phone] Care Team Providers Care Transportation Aide Name Role Phone Juancho Romero MD Primary Care Provider [phone] Reason for Visit * Reason Comments Acute Encounter Details Date Type Department Care Team (Late st Contact Info) Description 10/29/2023 1:20 PM EST Office Visit Family Medicine [address] [phone] Juancho Romero MD [address] [place] [address] [place] [address] Pneumonia of both lower lobes due to infectious organism* Allergies Active Allergy Reactions Criticality Noted Date [...] albuterol 120 mL 5 11/21/2022 Active Ipratropium Murdock 0.02 % Inhalation Solution (Atrovent)Indicatio ns:Moderate persistent [...] Respimat 2.5 MCG/ACT Inhalation Aerosol Solution (Tiotropium Murdock Monohydrate)Indicat ions:Moderate persistent asthma without complication INHALE [...] gone. 4 Tablet 0 10/23/2023 10/30/2023 Active Azithromycin 250 MG Oral Tablet (Zithromax)Indicati [...] days. 14 Capsule 0 10/29/2023 11/05/2023 Active Hospital, Clinic, or Other Facility Administered [...] rinse after steroid. Test performed by Sameer DATA ENTRY SUPERVISOR CPFT Pleural plaque due to asbestos exposure Restrictive lung disease Overview: In Check dial performed to assess inhaler technique: 12/15/19 Name of inhalers Albuterol Pass: Yes at 60 L/min and Advair Pass: Yes at 60 L/min. Encouraged to to take deep breath, use aero chamber, and rinse after steroid. 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 current use of ant icoagulant therapy [...] mRNA, LNP-s, No Pre serve, 2-Dose Series ([employer] 12/01/2021,01/16/2021,12/26/2020 COVID-19, LNP-s, No Preserve , Ozzy-sucrose, Ages 12+ ([employer] 12/01/2021 COVID-19, MRNA-LNP, 23-24, P F, 30 MCG/0.3 mL, 12 YRS AND ABOVE, IM ([employer]) 09/18/2023 Covid-19, Mrna, Lnp-s, Pf, B ivalent, 30 Mcg, IM, 12 yrs and above ([employer] 10/09/2022 Pneumococcal Conjugate Vacc, 13 Valent [...] Sign Reading Time Taken Comments Blood Pressure 122/60 10/29/2023 1:42 PM EST Pulse 87 10/29/2023 1:42 PM EST Temperature 36.4 C (97.5 F) 10/29/2023 1:42 PM ES T Respiratory Rate 16 10/29/2023 1:42 PM EST Oxygen Saturation 94% 10/29/2023 1:42 PM EST Inhaled Oxygen Concentration - - Weight 64.6 kg (142 lb 6 oz) 10/29/2023 1:42 PM EST Height - - Body Mass Index 25.22 09/19/2023 10:34 AM EDT documented in this encounter Progress Notes * Juancho Romero MD - 10/29/2023 1:16 PM EST Rafa was seen in [facility] on 10/07 or so for respiratory illness, CXR was said to be ok. Seen in clinic on 10/11, got Levaquin, finished it but is still sick. CXR on 10/22 suggested pneumonia and looks alot like one from a year ago. He was given another round of Levaquin but still is sick and coughing. He did get the most recent Covid booster and a flu shot this fall. This SmartLink has not been configured with any valid records. 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 [place] C0-M6 Benign neoplasm of colon 03/09/2002 Benign [...] I impaired relaxation Long-segment Stark's esophagus 07/28/2020 [place] C0-M5 Malignant neoplasm of prostate (HCC) 09/23/2008 Bacliff grade 3 Malignant neoplasm of sigmoid colon (HCC) [address] ham at [place] Moderate persistent asthma without complication Paroxysmal SVT (supraventricular tachycardia) 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, 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/2007 Pulmonary arterial hypertension (HCC) Pulmonary embolus (HCC) Pulmonary hypertension (HCC) 04/26/2021 43 mm Restrictive lung disease SBE (subacute bacterial endocarditis) prophylaxis candidate Septic shock (HCC) 11/18/2016 [facility] transferred from [place] Spinal stenosis of lumbar region without neurogenic claudication Stage 3b chronic kidney disease (HCC) 09/11/2022 EGFR 44 Tobacco use disorder Undiagnosed cardiac murmurs 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 Past Surgical History: Procedure Laterality Date ABD/PELVIS CT W/ + W/O IV AND W/PO CONTRAST 05/14/2005 prostate enlarged, Clfd ABD/PELVIS CT W/ IV AND W/ PO CONTRAST N/A 11/18/2016 airspace opacities in lingula and LLL, enlarged heart, normal liver, multiple gallblader calculi, tiny renal cysts, posterior gastric diverticulum ABLATE HEART DYSRHYTHM FOCUS 12/2014 [place]--Dr. Dillard ARTHROPLASTY KNEE TOTAL Left 05/09/2017 Dr Bautista [facility] BIOPSY OF PROSTATE 09/23/2008 Dr Goodwin [...] DIAGNOSTIC (RECTUM) 06/02/2015 TA polyp, referred to surgery/[facility] COLONOSCOPY, DIAGNOSTIC (RECTUM) 06/09/2018 normal/[facility] COLONOSCOPY, REMOVE LESION, CAUTERY 09/21/2009 anastomosis at 30 cm, 2 polyps in descending colon, tubular adenomas CT CHEST W WO CONTRAST 10/22/2011 The small density seen in the left upper lobe on the recent chest x-ray corresponds to pleural calcifications, which are unchanged since 2007 CT HEAD/BRAIN WO CONTRAST N/A 11/10/2016 no acute changes CYSTOSCOPY N/A 10/25/2021 bladder cancer and obstruction right ureter CYSTOSCOPY 10/01/2023 no cancer ECHO (2-D COMPLETE) 03/16/2010 stable with LVEF 60% ECHO, COMPLETE (2D), TRANS-THORACIC N/A 11/18/2016 normal LV size with mild concentric LVH, EF 55-60%, grade II diastolic dysfunction, bioprosthetic aortic valve ECHO, COMPLETE (2D), TRANS-THORACIC 01/26/2020 bioprosthetic aortic valve, EF 60% LVH EGD, FLEXIBLE, DIAGNOSTIC 06/02/2015 mild gastritis/[facility] EGD, FLEXIBLE, DIAGNOSTIC 06/09/2018 Barretts, hiatal hernia, gastric polyp, repeat 1 yr/[facility] EGD, FLEXIBLE, DIAGNOSTIC 07/07/2019 Barretts / [facility] EGD, FLEXIBLE, DIAGNOSTIC N/A 12/01/2019 ESOPHAGOGASTRODUODENOSCOPY (EGD), FLEXIBLE, TRANSORAL, DIAGNOSTIC performed by Domingo Garcia DO at ENDOSCOPY [facility] EGD, FLEXIBLE, DIAGNOSTIC N/A 03/14/2020 Partially treated Stark's stage C0-M9 per [place] Criteria Multiple gastric polyps, performed by Domingo Garcia DO at ENDOSCOPY [facility] EGD, FLEXIBLE, DIAGNOSTIC N/A 05/25/2020 6 cm [place] C0-M6 Barretts lower esophagus, with radiofrequency ablation, performed by Domingo Garcia DO at ENDOSCOPY [facility] EGD, FLEXIBLE, DIAGNOSTIC N/A 07/28/2020 long segment Stark's [place] C0-M5, with nodlule at 31 cm, performed by Domingo Garcia DO at ENDOSCOPY [facility] EGD, FLEXIBLE, DIAGNOSTIC N/A 09/28/2020 C0-M1 Barretts, gastric polyps, 3 cm hiatal hernia, performed by Domingo Garcia DO at ENDOSCOPY [facility] EGD, FLEXIBLE, DIAGNOSTIC N/A 11/30/2020 residual Stark's, performed by Domingo Garcia DO at ENDOSCOPY [facility] EGD, FLEXIBLE, DIAGNOSTIC N/A 01/31/2021 residual Stark's EGD, FLEXIBLE, DIAGNOSTIC N/A 01/31/2021 ESOPHAGOGASTRODUODENOSCOPY (EGD), FLEXIBLE, TRANSORAL, DIAGNOSTIC performed by Domingo Garcia DO at ENDOSCOPY [facility] EGD, FLEXIBLE, DIAGNOSTIC N/A 07/04/2021 ESOPHAGOGASTRODUODENOSCOPY (EGD), FLEXIBLE, TRANSORAL, DIAGNOSTIC performed by Domingo Garcia DO at ENDOSCOPY [facility] EGD, FLEXIBLE, DIAGNOSTIC 02/26/2022 short segment Stark's at 31 cm, GE flap Hill Grade IV, 4 cm hiatal hernia EGD, FLEXIBLE, DIAGNOSTIC N/A 02/26/2022 ESOPHAGOGASTRODUODENOSCOPY (EGD), FLEXIBLE, TRANSORAL, DIAGNOSTIC performed by Domingo Garcia DO at ENDOSCOPY [facility] EGD, FLEXIBLE, LESION ABLATION N/A 07/04/2021 2 cm hiatal hernia, Ablation of [place] C0-M1 Stark's, multiple fundic gland polyps ELECTROPHYSIOLOGIC [...] DDD NM BONE SCAN WHOLEBODY 10/06/2008 METs, [facility] NM HEPATOBILIARY SYSTEM WITH PHARMACOLOGIC INTERVENTION N/A 11/20/2016 no cystic duct obstruction PARTIAL REMOVAL OF COLON 04/21/2002 for tubulovillous adenoma, Dr Beasley at [facility] PARTIAL REMOVAL OF COLON 08/08/2015 right colectomy 08/08/2015 dr. de leon [facility] REMOVE CATARACT, INSERT LENS PROSTH 07/2012 Dr. [...] Pollen Wound Dressing Adhesive Rash Patient reported Social History Socioeconomic History Marital status: Spouse name: Not on file Number of children: 1 Years of education: Not on file Highest education level: Not on file Occupational History Occupation: retired Comment: [employer] Tobacco Use Smoking status: Never Smokeless tobacco: Current Types: Snuff Tobacco comments: One can every couple of days x 50 yrs. Vaping Use Vaping Use: Never used Substance and Sexual Activity Alcohol use: Not Currently Drug use: No Sexual activity: Yes Partners: Female Other Topics Concern Not on file Social History Narrative Used to spend the winter in [place]. In 2018 they are doing a [place] cruise for 15 days. Social Determinants of Health Financial Resource Strain: Not on file Food Insecurity: No Food Insecurity (01/22/2020) Hunger Vital Sign Worried About Running Out of Food in the Last Year: Never true Ran Out of Food in the Last Year: Never true Transportation Needs: Not on file Physical Activity: Not on file Stress: Not on file Social Connections: Not on file Intimate Partner Violence: Not on file Housing Stability: Not on file Current Outpatient Medications Medication Sig Dispense Refill [...] Mix with albuterol 120 mL 5 Ipratropium Murdock 0.02 % Inhalation Solution (Atrovent) Inhale 2.5 [...] Respimat 2.5 MCG/ACT Inhalation Aerosol Solution (Tiotropium Murdock Monohydrate) INHALE 2 PUFFS BY MOUTH EVERY DAY 12 g 3 Furosemide 40 MG Oral Tablet (Lasix) Take one tablet three times per week and as directed for weight gain 60 Tablet 3 Rosuvastatin Calcium 10 MG Oral Tablet (Crestor) TAKE 1 TABLET BY MOUTH EVERY DAY 90 Tablet 1 Warfarin Sodium 5 MG Oral Tablet (Coumadin) Take 0.5-1 Tablets by mouth every evening. Or take as instructed by the [facility] 90 Tablet 3 Spironolactone 25 [...] as needed for Sleep. 30 Tablet 0 levoFLOXacin 750 MG Oral Tablet (Levaquin) Take 1 Tablet by mouth every other day for 4 doses. until gone. 4 Tablet 0 Current Facility-Administered Medications Medication Dose Route Frequency Provider Last Rate Last Admin Albuterol Sulfate (Proventil) (5 MG/ML) 0.5% *conc* inhalation solution 2.5 mg 2.5 mg Nebulizer Gabbie Bradley CRNP Albuterol Sulfate (Proventil) (2.5 MG/3ML) 0.083% inhalation solution 2.5 mg 2.5 mg Nebulizer PRN Lenny, JASON Funk 2.5 mg at 09/17/23 1015 Immunization History Administered Date(s) Administered COVID-19 mRNA, LNP-s, No Preserve, 2-Dose Series ([employer] 12/26/2020, 01/16/2021, 12/01/2021 COVID-19, LNP-s, No Preserve, Ozzy-sucrose, Ages 12+ ([employer] 12/01/2021 COVID-19, MRNA-LNP, 23-24, PF, 30 MCG/0.3 mL, 12 YRS AND ABOVE, [facility] 09/18/2023 Covid-19, Mrna, Lnp-s, Pf, Bivalent, 30 Mcg, IM, 12 yrs and above ([employer] 10/09/2022 Pneumococcal Conjugate Vacc, 13 Valent (Prevnar) 06/23/2015 Pneumococcal Polysaccharide PPV23 (Pneumovax) 04/18/2004, 05/14/2013 Seasonal Influenza, PF, 6 M & above, IM , (FluLaval or Fluzone) 09/29/2018 Seasonal Influenza, Quadrivalent Hd (Fluzone Hd) 08/17/2021, 10/09/2022, 07/31/2023 Seasonal Influenza, Quadrivalent, No Preserve, IM 09/12/2015, 09/22/2016, 09/24/2017 Seasonal Influenza, Recombinant, RIV4, PF, (Flublock) 08/15/2020 Seasonal Influenza, Split, IIV3, With Preserve, Inj 09/14/2003, 09/05/2004, 08/22/2005, 08/20/2006,08/19/2007, 08/20/2008, 08/31/2009, 08/02/2010, 09/20/2011, 08/15/2012, 09/09/2013, 08/26/2014 Seasonal Influenza, Trivalent, Adjuvanted, 65+ yrs 09/14/2019 Seasonal Influenza, Trivalent, High Dose, No Preserve, IM 09/25/2017 TD, Preservative Free 08/20/2008 TDAP (age 10 and older)(Boostrix) 08/19/2017 Zoster Vaccine Recombinant (Shingrix) 08/15/2020, 12/02/2020 O: Blood pressure 122/60, pulse 87, temperature 36.4 C (97.5 F), temperature source Tympanic, resp. rate 16, SpO2 94%. He is not in respiratory distress sitting Lungs might have a few basilar rales. Heart is irregular and there might be an intermittent murmur mostly at 2RICS CXR looks basically the same to me as 10/22 and also similar to the one 10/19/2022 A: Pneumonia of both lower lobes due to infectious organism (Primary) - XR CHEST 2 VIEWS - BNP, NT-PRO; Future; Expected date: 10/29/2023 - D-DIMER; Future; Expected date: 10/29/2023 - Azithromycin 250 MG Oral Tablet (Zithromax); Take 2 tabs by mouth on the first day, then 1 tab daily on days two through five - Doxycycline Hyclate 100 MG Oral Capsule; Take 1 Capsule by mouth in the morning and 1 Capsule before bedtime. Do all this for 7 days. Take for 7 days. Follow Up: Return if symptoms worsen or fail to improve. documented in this encounter Nursing Notes * Lacie Zamora LPN - 10/29/2023 1:41 PM EST Still with cough and sob. He took last dose of antibiotic today documented in this encounter Plan of Treatment Upcoming Encounters Date Type Department Care Team (Late st Contact Info) Description 10/30/2023 11:15 AM EST Immunization/Injection Hematology/Oncology Treatment, [place] [address] [place] [address] [facility] [address] 11/04/2023 6:30 AM EST Anticoagulation Pharmacy Call Center [phone] [place] [address] [facility] [address] [place] [address] 11/04/2023 3:40 PM EST Office Visit Family Medicine [address] [place] [phone] Bell Mcqueen MD [address] [place] [address] [place] [address] 11/05/2023 10:30 AM EST Laboratory Laboratory [address] [place] [phone] [place], Lab [address] [place] [address] 11/06/2023 11:15 AM EST Immunization/Injection Hematology/Oncology Treatment, [place] [address] [place] [address] Nurse, Med 200 [facility] [place] [address] 11/19/2023 12:15 PM EST Office Visit [facility] [address] [place] [address] Pablo Casanova, [address] [place] [address] 12/31/2023 1:00 PM EST Cardiac Studies Cardiology [address] [place] [address] [facility] [address] [facility] [place] [address] 01/03/2024 10:30 AM EST Imaging Radiology [facility] [address] [facility] [place] [address] 01/08/2024 10:00 AM EST Office Visit Hematology/Oncology [facility] [place] [address] [place] [address] Ludwig Louis MD [address] [place] [address] 08/10/2024 1:40 PM EDT Office Visit Rheumatology [address] [place] [phone] Win Nielsen MD [address] [facility] [place] [address] Pending Results Name Type Priority Associated Diagnoses Date /Time XR CHEST 2 VIEWS Medical Imaging Routine Pneumonia of both lower lobes due to infectious organism 10/29/2023 1:40 PM EST BNP, NT-PRO Lab Routine Pneumonia of both lower lobes due to infectious organism 10/29/2023 1:11 PM EST D-DIMER Lab Routine Pneumonia of both lower lobes due to infectious organism 10/29/2023 1:11 PM EST Scheduled Orders Name Type Priority Associated Diagnoses Orde r Schedule BNP, NT-PRO Lab Routine Pneumonia of both lower lobes due to infectious organism Expected: 10/29/2023 (Approximate), Expires: 10/28/2024 D-DIMER Lab Routine Pneumonia of both lower lobes due to infectious organism Expected: 10/29/2023 (Approximate), Expires: 10/28/2024 Scheduled Procedures Name Priority Associated Diagnoses Date/Ti me ESOPHAGOGASTRODUODENOSCOPY ( EGD), FLEXIBLE, TRANSORAL, DIAGNOSTIC Recall Stark's esophagus with dysplasia Health Maintenance Due Date Last Done Comments Depression Screening 07/12/2021 07/12/2020 CKD PHOS USE SMARTSET 17453 08/21/2022 100 02/2021, 07/12/2020, 03/13/2019, Additional history exists *BISPHONATE OR OTHER ACCEPTABLE MEDICATION NEEDED FOR OSTEOPOROSIS (REFER TO SMARTSET #1146) 10/14/2023 Albumin/Creatinine Ratio 04/22/20242 023, 05/24/2022, 03/26/2022, Additional history exists TSH 10/08/2024 10/08/2023, 10/0 01/2023, 06/19/2023, Additional history exists CKD HGB USE SMARTSET 36945 10/22/202410/22, 10/22/2023, 10/15/2023, Additional history exists Stark's Esophagus Surveilance 02/26/2025 02/26/2022, 07/04/2021, 01/31/2021, Additional history exists DXA Scan 07/05/2025 07/05/2023, 10/19, 11/04/2018, Additional history exists DTaP,Tdap,and Td Vaccines (2 - Td or Tdap) 08/19/2027 08/19/2017, 08/20/2008 Pneumococcal Vaccine: 65+ Years Completed 06/23/2015, 05/14/2013, 04/18/2004 Zoster Vaccines Completed 12/02/2020, 08/15/2020 VITAMIN D LEVEL ONCE IN A LIFETIME-USE SMARTSET# [id number] Completed 04/22/2023, 08/28/2021, 07/14/2015 Influenza Vaccine (FLU [...] this encounter Medical Devices Implanted Type Area Electromedical Equipment Repairer Device Identifier Shelf Expiration Date Model / Serial / Lot Power Port 8fr Sngl Lumen Plas - [id number] Implanted:Qty: 1 on 02/22/2022 at [facility]ARD : PERIPHERAL VASCULAR [id number] 02/15/2023 [id number] / / [id number] documented as of this encounter Visit Diagnoses Diagnosis Pneumonia of both lower lobes due to infectious organism- Primary documented in this encounter Advance Directives Latest Code Status on File Code Status Date Activated Date Inactivated Comments Full Code 09/03/2007 7:29 AM 09/03/2007 4:02 PM Care Teams Transportation Aide Relationship Specialty Start Date End Date Juancho Romero MD [address] [place] [address] [place] [phone] PCP - General Family Medicine 12/27/16 documented as of this encounter
--- OUTSIDE RECORDS SUMMARY | 2024-01-23 21:13 | External Medical Summary | Summary of Care ---
Author Name Unknown Organization [facility] Address [address] [place] [address] Phone [phone] Care Team Providers Care Master Coastal Waters Name Role Phone Juancho Romero MD Primary Care Provider [phone] Encounter Details Date Type Department Care Team (Late st Contact Info) Description 10/31/2023 Orders Only Hematology[facility] [address] [place] [address] Ludwig Louis MD [address] [place] [address] Carcinoma of bladder (HCC)*; Chronic kidney disease, stage 3b (HCC); Anemia of chronic disease Allergies Active Allergy Reactions Criticality Noted Date Comments Penicillins Other (Please comment),Rash High Eyes swell Pollen 05/03/2022 Wound Dressing Adhesive Rash 05/02/2023 Patient reported documented as of this encounter (statuses as of 10/31/2023) Medications Medication Sig Dispensed Refills Start Date [...] albuterol 120 mL 5 11/21/2022 Active Ipratropium [place] 0.02 % Inhalation Solution (Atrovent)Indicatio ns:Moderate persistent [...] Respimat 2.5 MCG/ACT Inhalation Aerosol Solution (Tiotropium [place] Monohydrate)Indicat ions:Moderate persistent asthma without complication INHALE [...] by the [facility] 90 Tablet 3 08/09/2023 Active [...] as of this encounter (statuses as of 10/31/2023) Active Problems Problem Noted Date Diagnosed Date [...] rinse after steroid. Test performed by Sameer CERAMIST CPFT Pleural plaque due to asbestos exposure Restrictive lung disease Overview: In Check dial performed to assess inhaler technique: 12/15/19 Name of inhalers Albuterol Pass: Yes at 60 L/min and Advair Pass: Yes at 60 L/min. Encouraged to to take deep breath, use aero chamber, and rinse after steroid. 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 05/30/2005 [...] as of this encounter (statuses as of 10/31/2023) Immunizations Name Administration Dates Next Due COVID-19 mRNA, LNP-s, No Pre serve, 2-Dose Series (Insightera) 12/01/2021,01/16/2021,12/26/2020 COVID-19, LNP-s, No Preserve , Ozzy-sucrose, Ages 12+ (Insightera) 12/01/2021 COVID-19, MRNA-LNP, 23-24, P F, 30 MCG/0.3 mL, 12 YRS AND ABOVE, IM ([facility] [place] [facility]) 09/18/2023 Covid-19, Mrna, Lnp-s, Pf, B ivalent, 30 Mcg, IM, 12 yrs and above (Insightera) 10/09/2022 Pneumococcal Conjugate Vacc, 13 Valent (Prevnar) [...] Care Team (Late st Contact Info) Description 11/01/2023 11:30 AM EST Imaging Radiology [address], [address] [place] [address] 11/04/2023 6:30 AM EST Anticoagulation Pharmacy Call Center 58-60 [facility] [place] [address] [facility] 58 60 [facility] [place] [address] 11/04/2023 3:40 PM EST Office Visit Family Medicine [facility] [place] [address] [place] [address] [place] [phone] Bell Mcqueen MD [facility] [place] [address] 11/05/2023 10:30 AM EST Laboratory Laboratory [address] [place] [phone] [place] [address] 11/06/2023 11:15 AM EST Immunization/Injection Hematology/Oncology Treatment, [place] [address] [place] [address] Nurse, Med [address] [facility] [place] [address] 11/19/2023 12:15 PM EST Office Visit [facility] Eye [address] [address] Pablo Casanova, 16 [place] [address] 12/31/2023 1:00 PM EST Cardiac Studies Cardiology [address] [place] [address] [facility] [address] [place] [address] 01/03/2024 10:30 AM EST Imaging Radiology [facility] 1st [facility] [address] [place] [address] 01/08/2024 10:00 AM EST Office Visit Hematology/Oncology [facility] [address] [place] [address] Ludwig Louis MD [address] [place] [address] 08/10/2024 1:40 PM EDT Office Visit Rheumatology [address] [place] [phone] Win Nielsen MD [address] [place] [address] [place] [address] Scheduled Procedures Name Priority Associated Diagnoses Date/Ti me ESOPHAGOGASTRODUODENOSCOPY ( EGD), FLEXIBLE, TRANSORAL, DIAGNOSTIC Recall Stark's esophagus with dysplasia Health Maintenance Due Date Last Done Comments Depression Screening 07/12/2021 07/12/2020 CKD PHOS USE SMARTSET 11323 08/21/20220 02/2021, 07/12/2020, 03/13/2019, Additional history exists *BISPHONATE OR OTHER ACCEPTABLE MEDICATION NEEDED FOR OSTEOPOROSIS (REFER TO SMARTSET #1146) 10/14/2023 Albumin/Creatinine Ratio 04/22/2024 023, 05/24/2022, 03/26/2022, Additional history exists TSH 10/08/2024 10/08/2023, 01/2023, 06/19/2023, Additional history exists CKD HGB USE SMARTSET 53450 10/29/202410/29, 10/29/2023, 10/22/2023, Additional history exists Stark's Esophagus Surveilance 02/26/2025 02/26/2022, 07/04/2021, 01/31/2021, Additional history exists DXA Scan 07/05/2025 07/05/2023, 10/19, 11/04/2018, Additional history exists DTaP,Tdap,and Td Vaccines (2 - Td or Tdap) 08/19/2027 08/19/2017, 08/20/2008 Pneumococcal Vaccine: 65+ Years Completed 06/23/2015, 05/14/2013, 04/18/2004 Zoster Vaccines Completed 12/02/2020, 08/15/2020 VITAMIN D LEVEL ONCE IN A LIFETIME-USE SMARTSET# [id number] Completed 04/22/2023, 08/28/2021, 07/14/2015 Influenza Vaccine (FLU [...] this encounter Medical Devices Implanted Type Area Vice President Marketing & Development Device Identifier Shelf Expiration Date Model / Serial / Lot Power Port 8fr Sngl Lumen Plas - [id number] Implanted:Qty: 1 on 02/22/2022 at [facility] : PERIPHERAL VASCULAR [id number] 02/15/2023 [id number] / / [id number] documented as of this encounter Visit Diagnoses Diagnosis Carcinoma of bladder (HCC)- Primary Malignant neoplasm of bladder, part unspecified Chronic kidney disease, stage 3b (HCC) Anemia of chronic disease Anemia of other chronic disease documented in this encounter Advance Directives Latest Code Status on File Code Status Date Activated Date Inactivated Comments Full Code 09/03/2007 7:29 AM 09/03/2007 4:02 PM Care Teams Master [place]al [place] Relationship Specialty Start Date End Date Juancho Romero MD [address] [place] [address] [place] [address] PCP - General Family Medicine 12/27/16 documented as of this encounter
--- OUTSIDE RECORDS SUMMARY | 2024-01-23 21:13 | External Medical Summary | Summary of Care ---
Author Name Unknown Organization [facility] Address [address] [place] [address] Phone [phone] Care Team Providers Care Blow Molder Name Role Phone Juancho Romero MD Primary Care Provider Reason for Visit * Reason Comments Procedure Port flush. Medication Administration Procrit. * Episode Based Medications (Routine) - Authorized Specialty Diagnoses / Procedures Referred By Contjocelyne t Referred To Contact Diagnoses Carcinoma of bladder (HCC) Chronic kidney disease, stage 3a (HCC) Iron deficiency anemia, unspecified iron deficiency anemia type Procedures WI INJ RETACRIT NON-ESRD USE WI THERAPEUTIC PROPHYLACTIC/DX INJECTION SUBQ/IM WI EPOETIN IVAN, NON-ESRD Ludwig Louis MD [address] [place] [address] Anc Hem/Onc Dony [facility] DEPT CLOSED - 10/01/23 [address] [place] [address] Referral ID Status Reason Start Date Expiration Date V isits Requested Visits Authorized [id number] Authorized 09/12/2022 04/25/2024 999 99 Encounter Details Date Type Department Care Team (Late st Contact Info) Description 10/30/2023 11:15 AM EST Immunization/I njection Hematology/Oncology Treatment, [place] [address] [place] [phone] Nurse, Med 4 200 [facility] [place] [address] Encounter for central line care*; Carcinoma of bladder (HCC); Chronic kidney disease, stage 3a (HCC); Iron deficiency anemia, unspecified iron deficiency anemia type Allergies Active Allergy Reactions Criticality Noted Date Comments Penicillins Other (Please comment),Rash High Eyes swell Pollen 05/03/2022 Wound Dressing Adhesive Rash 05/02/2023 Patient reported documented as of this encounter (statuses as of 10/30/2023) Medications Medication Sig Dispensed Refills Start Date [...] albuterol 120 mL 5 11/21/2022 Active Ipratropium [place] 0.02 % Inhalation Solution (Atrovent)Indicatio ns:Moderate persistent [...] Respimat 2.5 MCG/ACT Inhalation Aerosol Solution (Tiotropium [place] Monohydrate)Indicat ions:Moderate persistent asthma without complication INHALE [...] evening. Or take as instructed by the [facility] 90 Tablet 3 08/09/2023 [...] as of this encounter (statuses as of 10/30/2023) Active Problems Problem Noted Date Diagnosed Date [...] rinse after steroid. Test performed by Sameer TISSUE RECOVERY TECHNICIAN CPFT Pleural plaque due to asbestos exposure Restrictive lung disease Overview: In Check dial performed to assess inhaler technique: 12/15/19 Name of inhalers Albuterol Pass: Yes at 60 L/min and Advair Pass: Yes at 60 L/min. Encouraged to to take deep breath, use aero chamber, and rinse after steroid. 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 05/30/2005 [...] as of this encounter (statuses as of 10/30/2023) Immunizations Name Administration Dates Next Due COVID-19 mRNA, LNP-s, No Pre serve, 2-Dose Series (iRidge) 12/01/2021,01/16/2021,12/26/2020 COVID-19, LNP-s, No Preserve , Ozzy-sucrose, Ages 12+ (iRidge) 12/01/2021 COVID-19, MRNA-LNP, 23-24, P F, 30 MCG/0.3 mL, 12 YRS AND ABOVE, IM (Airborne Mobile-Comirnaty) 09/18/2023 Covid-19, Mrna, Lnp-s, Pf, B ivalent, [...] Sign Reading Time Taken Comments Blood Pressure 91/54 10/30/2023 11:15 AM EST Pulse 70 10/30/2023 11:15 AM EST Temperature - - Respiratory Rate - - Oxygen Saturation - - Inhaled Oxygen Concentration - - Weight - - Height - - Body Mass Index - - documented in this encounter Nursing Notes * Anneliese Ortiz RN - 10/30/2023 11:46 AM EST Exam room 4. Patient is here for port flush/procit. No new concerns at this time. VAD (Venous Access Device) accessed with #20G 3/4" without difficulty. VAD flushed with 10 ml NSS and Heparin 5 ml (100 units/ml). Muhammad needle removed intact. Patient tolerated procedure well. Discharged in stable condition. documented in this encounter Plan of Treatment Upcoming Encounters Date Type Department Care Team (Late st Contact Info) Description 11/04/2023 6:30 AM EST Anticoagulation Pharmacy Call Center 58-60 [facility] [place] [address] [facility] 58 60 [facility] [address] 11/04/2023 3:40 PM EST Office Visit Family Medicine [address] [place] [phone] Bell Mcqueen MD [address] [place] [address] [place] [address] 11/05/2023 10:30 AM EST Laboratory Laboratory [address] [place] [phone] [place] [address] 11/06/2023 11:15 AM EST Immunization/Injection Hematology/Oncology Treatment, [place] [address] [facility] [place] [address] Nurse, Med [address] [place] [address] 11/19/2023 12:15 PM EST Office Visit [facility] [address] [place] [address] Pablo Casanova DO 16 [place] [address] 12/31/2023 1:00 PM EST Cardiac Studies Cardiology [address] [place] [address] [place] 132 [facility] [place] [address] 01/03/2024 10:30 AM EST Imaging Radiology [facility] 1st [facility] 132 [facility] [place] [address] 01/08/2024 10:00 AM EST Office Visit Hematology/Oncology [facility] [address] [place] [address] Ludwig Louis MD [address] [place] [address] 08/10/2024 1:40 PM EDT Office Visit Rheumatology [address] [place] [phone] Win Nielsen MD [address] [place] [address] [place] [address] Scheduled Procedures Name Priority Associated Diagnoses Date/Ti me ESOPHAGOGASTRODUODENOSCOPY ( EGD), FLEXIBLE, TRANSORAL, DIAGNOSTIC Recall Stark's esophagus with dysplasia Health Maintenance Due Date Last Done Comments Depression Screening 07/12/2021 07/12/2020 CKD PHOS USE SMARTSET 30925 08/21/2022 10/0 02/2021, 07/12/2020, 03/13/2019, Additional history exists *BISPHONATE OR OTHER ACCEPTABLE MEDICATION NEEDED FOR OSTEOPOROSIS (REFER TO SMARTSET #1146) 10/14/2023 Albumin/Creatinine Ratio 04/22/2024 023, 05/24/2022, 03/26/2022, Additional history exists TSH 10/08/2024 10/08/2023, 1001/2023, 06/19/2023, Additional history exists CKD HGB USE SMARTSET 29767 10/29/202410/29, 10/29/2023, 10/22/2023, Additional history exists Stark's Esophagus Surveilance 02/26/2025 02/26/2022, 07/04/2021, 01/31/2021, Additional history exists DXA Scan 07/05/2025 07/05/2023, 10/19, 11/04/2018, Additional history exists DTaP,Tdap,and Td Vaccines (2 - Td or Tdap) 08/19/2027 08/19/2017, 08/20/2008 Pneumococcal Vaccine: 65+ Years Completed 06/23/2015, 05/14/2013, 04/18/2004 Zoster Vaccines Completed 12/02/2020, 08/15/2020 VITAMIN D LEVEL ONCE IN A LIFETIME-USE SMARTSET# [id number] Completed 04/22/2023, 08/28/2021, 07/14/2015 Influenza Vaccine (FLU [...] this encounter Medical Devices Implanted Type Area Combiner Operator Device Identifier Shelf Expiration Date Model / Serial / Lot Power Port 8fr Sngl Lumen Plas - [id number] Implanted:Qty: 1 on 02/22/2022 at [facility] : PERIPHERAL VASCULAR [id number] 02/15/2023 [id number] / / [id number] documented as of this encounter Visit Diagnoses Diagnosis Encounter for central line care- Primary Fitting and adjustment of vascular catheter Carcinoma of bladder (HCC) Malignant neoplasm of bladder, part unspecified Chronic kidney disease, stage 3a (HCC) Iron deficiency anemia, unspecified iron deficiency anemia type documented in this encounter Administered Medications Active Administered Medications - up to 3 most recent administrations Medication Order MAR Action Action Date Dose Rate Site hEParin 100 UNIT/ML Lock Flush inj 500 Units 500 Units (5 mL), IV Lock, PRN Other, IV Flush, Starting on Sat10/30/23 at 1104, Until Marilin 10/31/23 at 1103, For 24 hours, Do not flush if lock, PICC, or central line not in place; IV infusing or unable to flush. Given 10/30/2023 11:22 AM EST 500 Units sodium chloride 0.9 % flush central line 10 mL 10 mL, IV Push, PRN Other, IV Flush, Starting on Sat10/30/23 at 1104, Until Marilin 10/31/23 at 1103, For 24 hours, Do not flush if lock, PICC, or central line not in place; IV infusing or unable to flush. Given 10/30/2023 11:22 AM EST 10 mL Inactive Administered Medications - up to 3 most recent administrations Medication Order MAR Action Action Date Dose Rate Site Epoetin Ivan [address] UNIT/ML inj 40,000 Units 40,000 Units, Subcutaneous, ONCE, On Sat10/30/23 at 1145, For 1 dose Given 10/30/2023 11:22 AM EST 40,000 Units Arm Left Upper documented in this encounter Advance Directives Latest Code Status on File Code Status Date Activated Date Inactivated Comments Full Code 09/03/2007 7:29 AM 09/03/2007 4:02 PM Care Teams Blow Molder Relationship Specialty Start Date End Date Juancho Romero MD [address] [place] [address] [place] [address] PCP - General Family Medicine 12/27/16 documented as of this encounter
--- OUTSIDE RECORDS SUMMARY | 2024-01-23 21:13 | External Medical Summary | Summary of Care ---
Author Name Unknown Organization [facility] Address [address] [place] [address] Phone [phone] Care Team Providers Care Pr Specialist Name Role Phone Juancho Romero MD Primary Care Provider [phone] Encounter Details Date Type Department Care Team (Late st Contact Info) Description 10/31/2023 Orders Only Hematology/Oncology Treatment, [place] [address] [place] [address] Ludwig Louis MD 200 [place] [address] Allergies Active Allergy Reactions Criticality Noted Date [...] albuterol 120 mL 5 11/21/2022 Active Ipratropium [place] 0.02 % Inhalation Solution (Atrovent)Indicatio ns:Moderate persistent [...] Respimat 2.5 MCG/ACT Inhalation Aerosol Solution (Tiotropium [place] Monohydrate)Indicat ions:Moderate persistent asthma without complication INHALE [...] rinse after steroid. Test performed by Sameer STEEL ANALYST CPFT Pleural plaque due to asbestos exposure Restrictive lung disease Overview: In Check dial performed to assess inhaler technique: 12/15/19 Name of inhalers Albuterol Pass: Yes at 60 L/min and Advair Pass: Yes at 60 L/min. Encouraged to to take deep breath, use aero chamber, and rinse after steroid. 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 05/30/2005 [...] mRNA, LNP-s, No Pre serve, 2-Dose Series (AUPEO!) 12/01/2021,01/16/2021,12/26/2020 COVID-19, LNP-s, No Preserve , Ozzy-sucrose, Ages 12+ (AUPEO!) 12/01/2021 COVID-19, MRNA-LNP, 23-24, P F, 30 MCG/0.3 mL, 12 YRS AND ABOVE, IM (Pure life renal-Comirnaty) 09/18/2023 Covid-19, Mrna, Lnp-s, Pf, B ivalent, 30 Mcg, IM, 12 yrs and above (AUPEO!) 10/09/2022 Pneumococcal Conjugate Vacc, 13 Valent (Prevnar) [...] Description 11/01/2023 11:30 AM EST Imaging Radiology [address] [place] [address] 11/04/2023 6:30 AM EST Anticoagulation Pharmacy Call Center 58[facility] [place] [address] [facility] 58 60 [facility] [place] [address] 11/04/2023 3:40 PM EST Office Visit Family Medicine [address] [place] [phone] Bell Mcqueen MD [address] [place] [address] [place] [address] 11/05/2023 10:30 AM EST Laboratory Laboratory [address] [place] [phone] [place] [address] 11/06/2023 11:15 AM EST Immunization/Injection Hematology/Oncology Treatment, [place] [address] [place] [address] Nurse, [facility] [address] [facility] [address] 11/19/2023 12:15 PM EST Office Visit [facility] 16 [place] [address] Pablo Casanova, 16 [place] [address] 12/31/2023 1:00 PM EST Cardiac Studies Cardiology [address] [place] [address] Og Frazier [facility] 132 [facility] [place] [address] 01/03/2024 10:30 AM EST Imaging Radiology [facility] 1st [facility] 132 [place] [address] 01/08/2024 10:00 AM EST Office Visit Hematology/Oncology [facility] [address] [place] [address] Ludwig Louis MD 200 [facility] [address] 08/10/2024 1:40 PM EDT Office Visit Rheumatology [address] [place] [phone] Win Nielsen MD [address] [place] [address] [place] [address] Scheduled Procedures Name Priority Associated Diagnoses Date/Ti me ESOPHAGOGASTRODUODENOSCOPY ( EGD), FLEXIBLE, TRANSORAL, DIAGNOSTIC Recall Stark's esophagus with dysplasia Health Maintenance Due Date Last Done Comments Depression Screening 07/12/2021 07/12/2020 CKD PHOS USE SMARTSET 81537 08/21/2022 100 02/2021, 07/12/2020, 03/13/2019, Additional history exists *BISPHONATE OR OTHER ACCEPTABLE MEDICATION NEEDED FOR OSTEOPOROSIS (REFER TO SMARTSET #1146) 10/14/2023 Albumin/Creatinine Ratio 04/22/2024 023, 05/24/2022, 03/26/2022, Additional history exists TSH 10/08/2024 10/08/2023, 0 01/2023, 06/19/2023, Additional history exists CKD HGB USE SMARTSET 20022 10/29/202410/29, 10/29/2023, 10/22/2023, Additional history exists Stark's Esophagus Surveilance 02/26/2025 02/26/2022, 07/04/2021, 01/31/2021, Additional history exists DXA Scan 07/05/2025 07/05/2023, 10/19, 11/04/2018, Additional history exists DTaP,Tdap,and Td Vaccines (2 - Td or Tdap) 08/19/2027 08/19/2017, 08/20/2008 Pneumococcal Vaccine: 65+ Years Completed 06/23/2015, 05/14/2013, 04/18/2004 Zoster Vaccines Completed 12/02/2020, 08/15/2020 VITAMIN D LEVEL ONCE IN A LIFETIME-USE SMARTSET# [id number] Completed 04/22/2023, 08/28/2021, 07/14/2015 Influenza Vaccine (FLU [...] this encounter Medical Devices Implanted Type Area Community Marketing Coordinator Device Identifier Shelf Expiration Date Model / Serial / Lot Power Port 8fr Sngl Lumen Plas - [id number] Implanted:Qty: 1 on 02/22/2022 at [facility] : PERIPHERAL VASCULAR [id number] 02/15/2023 [id number] / / [id number] documented as of this encounter Advance Directives Latest Code Status on File Code Status Date Activated Date Inactivated Comments Full Code 09/03/2007 7:29 AM 09/03/2007 4:02 PM Care Teams Pr Specialist Relationship Specialty Start Date End Date Juancho Romero MD [address] [place] [address] [place] [id number] PCP - General Family Medicine 12/27/16 documented as of this encounter
--- OUTSIDE RECORDS SUMMARY | 2024-01-23 21:14 | External Medical Summary ---
Author Name Unknown Address Unknown Organization K01:[facility] [place] [facility] [address] [place] [address] Laboratory Report Ordering Provider Test Date Status ROB AMBRIZ 10/29/2023 13:11:43 Final Rheumatoid factor at a level above 50 IU/mL may lead to an overestimation of the D-dimer level. A normal D-dimer result (<0.50 ug/mL FEU) has a negative predictive value of approximately 95% for the exclusion of acute pulmonary embolism (PE) or deep vein thrombosis when there is low or moderate pretest PE probability. Increased D-dimer values are abnormal but do not indicate a specific disease state and the D-dimer increase does not definitively correlate with clinical severity of disease. Observation Date Value Abnormality Reference (Units ) Status Fibrin D-dimer FEU [Mass/volume] in Platelet poor plasma by Immunoassay 10/29/2023 13:11:43 0.61 Above high normal <0.50 (ug/mL FEU) Final Performing Location [facility] [place] [facility] [address] [place] [address]
--- OUTSIDE RECORDS SUMMARY | 2024-01-23 21:14 | External Medical Summary | Summary of Care ---
Author Name Unknown Organization [facility] Address [address] [place] [address] Phone [phone] Care Team Providers Care Foundation Maker Name Role Phone Juancho Romero MD Primary Care Provider [phone] Reason for Visit * Reason Comments Medication Administration Procrit * Episode Based Medications (Routine) - Authorized Specialty Diagnoses / Procedures Referred By Aaron t Referred To Contact Diagnoses Carcinoma of bladder (HCC) Chronic kidney disease, stage 3a (HCC) Iron deficiency anemia, unspecified iron deficiency anemia type Procedures NM INJ RETACRIT NON-ESRD USE NM THERAPEUTIC PROPHYLACTIC/DX INJECTION SUBQ/IM NM EPOETIN IVAN, NON-ESRD Ludwig Louis MD [address] [place] [address] Anc Hem/Onc Dony Hickman DEPT CLOSED - 10/01/23 [address] [place] [address] Referral ID Status Reason Start Date Expiration Date V isits Requested Visits Authorized [id number] Authorized 09/12/2022 04/25/2024 999 [id number] Encounter Details Date Type Department Care Team (Late st Contact Info) Description 10/23/2023 11:15 AM EST Immunization/I njection Hematology/Oncology Treatment, [place] [address] [place] [address] Nurse, Med [address] [place] [address] Carcinoma of bladder (HCC)*; Chronic kidney disease, stage 3a (HCC); Iron deficiency anemia, unspecified iron deficiency anemia type Allergies Active Allergy Reactions Criticality Noted Date Comments Penicillins Other (Please comment),Rash High Eyes swell Pollen 05/03/2022 Wound Dressing Adhesive Rash 05/02/2023 Patient reported documented as of this encounter (statuses as of 10/23/2023) Medications Medication Sig Dispensed Refills Start Date [...] albuterol 120 mL 5 11/21/2022 Active Ipratropium [place] 0.02 % Inhalation Solution (Atrovent)Indicatio ns:Moderate persistent [...] Respimat 2.5 MCG/ACT Inhalation Aerosol Solution (Tiotropium [place] Monohydrate)Indicat ions:Moderate persistent asthma without complication INHALE [...] evening. Or take as instructed by the [facility] 90 Tablet 3 [...] as of this encounter (statuses as of 10/23/2023) Active Problems Problem Noted Date Diagnosed Date [...] rinse after steroid. Test performed by Sameer FISH INSPECTOR CPFT Pleural plaque due to asbestos exposure Restrictive lung disease Overview: In Check dial performed to assess inhaler technique: 12/15/19 Name of inhalers Albuterol Pass: Yes at 60 L/min and Advair Pass: Yes at 60 L/min. Encouraged to to take deep breath, use aero chamber, and rinse after steroid. 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 05/30/2005 [...] as of this encounter (statuses as of 10/23/2023) Immunizations Name Administration Dates Next Due COVID-19 mRNA, LNP-s, No Pre serve, 2-Dose Series (MysteryD) 12/01/2021,01/16/2021,12/26/2020 COVID-19, LNP-s, No Preserve , Ozzy-sucrose, Ages 12+ (MysteryD) 12/01/2021 COVID-19, MRNA-LNP, 23-24, P F, 30 MCG/0.3 mL, 12 YRS AND ABOVE, IM (YumDots-Comirnaty) 09/18/2023 Covid-19, Mrna, Lnp-s, Pf, B ivalent, 30 Mcg, IM, 12 yrs and above (MysteryD) 10/09/2022 Pneumococcal Conjugate Vacc, 13 Valent (Prevnar) 06/23/2015 Pneumococcal Polysaccharide PPV23 (Pneumovax) 05/14/2013 SEASONAL INFLUENZA, PF, 6 M & Above, IM , (FLULAVAL or FLUZONE) 09/29/2018 Seasonal Influenza, Quadriva lent Hd (Fluzone [...] Sign Reading Time Taken Comments Blood Pressure 117/63 10/23/2023 11:05 AM EST Pulse 84 10/23/2023 11:05 AM EST Temperature - - Respiratory Rate - - Oxygen Saturation - - Inhaled Oxygen Concentration - - Weight - - Height - - Body Mass Index - - documented in this encounter Nursing Notes * Leana Sears LPN - 10/23/2023 12:41 PM EST 1115: Pt arrived for Procrit injection. Hgb 9.9. BP WNL. Administered in SHON. Pt tolerated well. Ptreports he has pneumonia. He had a chest x ray yesterday and is on antibiotics. Sp02 94%. Pt to return in one week. Discharged in stable condition. documented in this encounter Plan of Treatment Upcoming Encounters Date Type Department Care Team (Late st Contact Info) Description 10/29/2023 10:30 AM EST Laboratory Laboratory [address] [place] [phone] [place] [address] 10/30/2023 11:15 AM EST Immunization/Injection Hematology/Oncology Treatment, [address] [address] Nurse, [address] [place] [address] 11/04/2023 6:30 AM EST Anticoagulation Pharmacy Call Center 58[address]60 [facility] [address] Ccps, [facility] 58 60 [place] [address] 11/04/2023 3:40 PM EST Office Visit Family Medicine [address] [place] [phone] Bell Mcqueen MD [address] [place] [address] [place] [address] 11/05/2023 10:30 AM EST Laboratory Laboratory [address] [place] [address] [place] [address] 11/06/2023 11:15 AM EST Immunization/Injection Hematology/Oncology Treatment, [address] [address] Nurse, Med 4 200 [facility] [place] [address] 11/19/2023 12:15 PM EST Office Visit [facility] [address] [place] [address] Pablo Casanova, 16 [place] [address] 12/31/2023 1:00 PM EST Cardiac Studies Cardiology [address] [place] [address] [facility] 132 [facility] [place] [address] 01/03/2024 10:30 AM EST Imaging Radiology [facility] 132 [facility] [place] [address] 01/08/2024 10:00 AM EST Office Visit Hematology/Oncology [facility] [address] [place] [address] Ludwig Louis MD 200 [facility] [place] [address] 04/10/2024 10:40 AM EDT Office Visit Rheumatology [address] [place] [phone] Win Nielsen MD [address] [place] [address] [place] [address] Scheduled Procedures Name Priority Associated Diagnoses Date/Ti me ESOPHAGOGASTRODUODENOSCOPY ( EGD), FLEXIBLE, TRANSORAL, DIAGNOSTIC Recall Stark's esophagus with dysplasia Health Maintenance Due Date Last Done Comments Depression Screening 07/12/2021 07/12/2020 CKD PHOS USE SMARTSET 34087 08/21/2022 10/0 02/2021, 07/12/2020, 03/13/2019, Additional history exists *BISPHONATE OR OTHER ACCEPTABLE MEDICATION NEEDED FOR OSTEOPOROSIS (REFER TO SMARTSET #1146) 10/14/2023 Albumin/Creatinine Ratio 04/22/2024 023, 05/24/2022, 03/26/2022, Additional history exists TSH 10/08/2024 10/08/2023, 10/0 01/2023, 06/19/2023, Additional history exists CKD HGB USE SMARTSET 24580 10/22/202410/22, 10/22/2023, 10/15/2023, Additional history exists Stark's Esophagus Surveilance 02/26/2025 02/26/2022, 07/04/2021, 01/31/2021, Additional history exists DXA Scan 07/05/2025 07/05/2023, 10/19, 11/04/2018, Additional history exists DTaP,Tdap,and Td Vaccines (2 - Td or Tdap) 08/19/2027 08/19/2017, 08/20/2008 Pneumococcal Vaccine: 65+ Years Completed 06/23/2015, 05/14/2013, 04/18/2004 Zoster Vaccines Completed 12/02/2020, 08/15/2020 VITAMIN D LEVEL ONCE IN A LIFETIME-USE SMARTSET# [id number] Completed 04/22/2023, 08/28/2021, 07/14/2015 Influenza Vaccine (FLU [...] this encounter Medical Devices Implanted Type Area Ice Puller Device Identifier Shelf Expiration Date Model / Serial / Lot Power Port 8fr Sngl Lumen Plas - [id number] Implanted:Qty: 1 on 02/22/2022 at [facility] : PERIPHERAL VASCULAR [id number] 02/15/2023 [id number] / / [id number] documented as of this encounter Visit Diagnoses Diagnosis Carcinoma of bladder (HCC)- Primary Malignant neoplasm of bladder, part unspecified Chronic kidney disease, stage 3a (HCC) Iron deficiency anemia, unspecified iron deficiency anemia type documented in this encounter Administered Medications Inactive Administered Medications - up to 3 most recent administrations Medication Order MAR Action Action Date Dose Rate Site Epoetin Ivan 86723 UNIT/ML inj 40,000 Units 40,000 Units, Subcutaneous, ONCE, On Sat10/23/23 at 1145, For 1 dose Given 10/23/2023 11:20 AM EST 40,000 Units Arm Right Upper documented in this encounter Advance Directives Latest Code Status on File Code Status Date Activated Date Inactivated Comments Full Code 09/03/2007 7:29 AM 09/03/2007 4:02 PM Care Teams Foundation Maker Relationship Specialty Start Date End Date Juancho Romero MD [address] [place] [address] [place] [address] PCP - General Family Medicine 12/27/16 documented as of this encounter
--- OUTSIDE RECORDS SUMMARY | 2024-01-23 21:14 | External Medical Summary ---
Author Name Unknown Address Unknown Organization K01:[facility] - [address] [place] [address] Laboratory Report Ordering Provider Test Date Status KATINAROB 10/29/2023 13:11:43 Final Exclude Heart Failure: <300 pg/mL
Diagnose Heart Failure:
Age <50 yr: >450 pg/mL
50-75 yr: >900 pg/mL
>75 yr: >1800 pg/mL
GFR is 30-59 mL/min: >1200 pg/mL or Age- adjusted values
GFR <30 mL/min: do not use, not reliable

Prognostic threshold: 1000 pg/mL Observation Date Value Abnormality Reference (Units ) Status BNP, Pro-hormone 10/29/2023 13:11:43 [address] Above high no rmal <300 (pg/mL) Final Performing Location [facility] - [facility] [address] [place] [address]
--- OUTSIDE RECORDS SUMMARY | 2024-01-23 21:14 | External Medical Summary ---
Author Name Unknown Address Unknown Organization K01:[facility] [facility] [address] [facility] [address] [place] [address] Laboratory Report Ordering Provider Test Date Status ADRIENNE SALCIDO 10/29/2023 12:03:03 Final Observation Date Value Abnormality Reference (Units ) Status WBC, Total 10/29/2023 12:03:03 6.62 4.00-10.80 (K/uL) Final RBC 10/29/2023 12:03:03 3.66 4.50-5.25 (M/uL) Final Hemoglobin 10/29/2023 12:03:03 9.7 Below low normal 14.0-16.8 (g/dL) Final HCT 10/29/2023 12:03:03 35.6 Below low normal 40.0-48.4 (%) Final MCV 10/29/2023 12:03:03 97.3 82.0-99.5 (fL) Final MCH 10/29/2023 12:03:03 26.5 27.0-34.0 (pg) Final MCHC 10/29/2023 12:03:03 27.2 32.0-36.0 (g/dL) Final RDW 10/29/2023 12:03:03 15.9 11.5-15.5 (%) Final Platelets 10/29/2023 12:03:03 171 140-400 (K/uL) Final MPV 10/29/2023 12:03:03 11.9 6.6-11.1 (fL) Final Nucleated erythrocytes/100 leukocytes [Ratio] in Blood by Automated count 10/29/2023 12:03:03 0 <=0 (/100 WBCs) Final Performing Location [facility] [place] [address] [place] [address]
--- OUTSIDE RECORDS SUMMARY | 2024-01-23 21:14 | External Medical Summary | Summary of Care ---
Author Name Unknown Organization [facility] Address [address] [place] [address] Phone [phone] Care Team Providers Care Egg Factory Worker Name Role Phone Juancho Romero MD Primary Care Provider Reason for Visit * Reason Onset Date Comments Test Results 10/23/2023 Encounter Details Date Type Department Care Team (Late st Contact Info) Description 10/23/2023 Telephone Family [address] [phone] Bell Mcqueen MD [address] [place] [address] [place] [address] Test Results Allergies Active Allergy Reactions Criticality Noted Date [...] albuterol 120 mL 5 11/21/2022 Active Ipratropium [place] 0.02 % Inhalation Solution (Atrovent)Indicatio ns:Moderate persistent [...] Respimat 2.5 MCG/ACT Inhalation Aerosol Solution (Tiotropium [place] Monohydrate)Indicat ions:Moderate persistent asthma without complication INHALE [...] rinse after steroid. Test performed by Sameer NEONATAL SPECIALIST CPFT Pleural plaque due to asbestos exposure Restrictive lung disease Overview: In Check dial performed to assess inhaler technique: 12/15/19 Name of inhalers Albuterol Pass: Yes at 60 L/min and Advair Pass: Yes at 60 L/min. Encouraged to to take deep breath, use aero chamber, and rinse after steroid. Test performed by Sameer NEONATAL SPECIALIST CPFT Hx of pulmonary embolus 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 Overview: [place] C0-M6 documented as of this encounter [...] mRNA, LNP-s, No Pre serve, 2-Dose Series (EduKoala) 12/01/2021,01/16/2021,12/26/2020 COVID-19, LNP-s, No Preserve , Ozzy-sucrose, Ages 12+ (Pfizer) 12/01/2021 COVID-19, MRNA-LNP, 23-24, P F, 30 MCG/0.3 mL, 12 YRS AND ABOVE, IM (U Grok It - Smartphone RFID-ComirnatWellMetris) 09/18/2023 Covid-19, Mrna, Lnp-s, Pf, B ivalent, 30 Mcg, IM, 12 yrs and above (EduKoala) 10/09/2022 Pneumococcal Conjugate Vacc, 13 Valent (Prevnar) [...] encounter Miscellaneous Notes * Telephone Encounter - Bell Mcqueen MD - 10/23/2023 9:40 AM EST Spoke to pt's - pt is still having cough - CXR showed bibasilar pneumonia - will do another course of levaquin - repeat CXR in 3 weeks - ER precautions given documented in this encounter Plan of Treatment Upcoming Encounters Date Type Department Care Team (Late st Contact Info) Description 10/23/2023 11:15 AM EST Immunization/Injection Hematology/Oncology Treatment, [address] [address] Nurse, Med [address] [place] [address] [place] [address] 10/29/2023 10:30 AM EST Laboratory Laboratory [address] [place] [phone] [place] [address] 10/30/2023 11:15 AM EST Immunization/Injection Hematology/Oncology Treatment, [place] [facility] [address] Nurse, Med [address] [place] [address] [place] [address] 11/04/2023 6:30 AM EST Anticoagulation Pharmacy Call Center WB 58[address]60 [facility] [place] [address] [facility] Peninsulas, [facility] 58 60 [facility] [place] [address] 11/04/2023 3:40 PM EST Office Visit Family Medicine [address] [place] [phone] Bell Mcqueen MD [address] [place] [address] [place] [address] 11/05/2023 10:30 AM EST Laboratory Laboratory [address] [place] [phone] [place], Lab [address] [place] [address] 11/06/2023 11:15 AM EST Immunization/Injection Hematology/Oncology Treatment, [place] [address] [facility] [place] [address] Nurse, Med [facility] [address] 11/19/2023 12:15 PM EST Office Visit [address] [address] Pablo Casanova T, DO 16 [place] [address] 12/31/2023 1:00 PM EST Cardiac Studies Cardiology [address] [place] [address] Og Frazier [facility] 132 [facility] [place] [address] 01/03/2024 10:30 AM EST Imaging Radiology [facility] 1st [facility] 132 [facility] [place] [address] 01/08/2024 10:00 AM EST Office Visit Hematology/Oncology [facility] [place] [address] [place] [address] Ludwig Louis MD [address] [place] [address] 04/10/2024 10:40 AM EDT Office Visit Rheumatology [address] [place] [phone] Win Nielsen MD [address] [place] [address] [place] [address] Scheduled Orders Name Type Priority Associated Diagnoses Orde r Schedule XR CHEST 2 VIEWS Medical Imaging Routine Pneumonia of both lungs due to infectious organism, unspecified part of lung Expected: 11/13/2023, Expires: 11/23/2024 Scheduled Procedures Name Priority Associated Diagnoses Date/Ti me ESOPHAGOGASTRODUODENOSCOPY ( EGD), FLEXIBLE, TRANSORAL, DIAGNOSTIC Recall Stark's esophagus with dysplasia Health Maintenance Due Date Last Done Comments Depression Screening 07/12/2021 07/12/2020 CKD PHOS USE SMARTSET 47862 08/21/2022 100 02/2021, 07/12/2020, 03/13/2019, Additional history exists *BISPHONATE OR OTHER ACCEPTABLE MEDICATION NEEDED FOR OSTEOPOROSIS (REFER TO SMARTSET #1146) 10/14/2023 Albumin/Creatinine Ratio 04/22/2024 023, 05/24/2022, 03/26/2022, Additional history exists TSH 10/08/2024 10/08/2023, 10/0 01/2023, 06/19/2023, Additional history exists CKD HGB USE SMARTSET 20709 10/22/202410/22, 10/22/2023, 10/15/2023, Additional history exists Stark's Esophagus Surveilance 02/26/2025 02/26/2022, 07/04/2021, 01/31/2021, Additional history exists DXA Scan 07/05/2025 07/05/2023, 10/19, 11/04/2018, Additional history exists DTaP,Tdap,and Td Vaccines (2 - Td or Tdap) 08/19/2027 08/19/2017, 08/20/2008 Pneumococcal Vaccine: 65+ Years Completed 06/23/2015, 05/14/2013, 04/18/2004 Zoster Vaccines Completed 12/02/2020, 08/15/2020 VITAMIN D LEVEL ONCE IN A LIFETIME-USE SMARTSET# [id number] Completed 04/22/2023, 08/28/2021, 07/14/2015 Influenza Vaccine (FLU [...] this encounter Medical Devices Implanted Type Area Digester Cook Device Identifier Shelf Expiration Date Model / Serial / Lot Power Port 8fr Sngl Lumen Plas - [id number] Implanted:Qty: 1 on 02/22/2022 at [facility] : PERIPHERAL VASCULAR [id number] 02/15/2023 [id number] / / [id number] documented as of this encounter Visit Diagnoses Diagnosis Pneumonia of both lungs due to infectious organism, unspecified part of lung- Primary documented in this encounter Advance Directives Latest Code Status on File Code Status Date Activated Date Inactivated Comments Full Code 09/03/2007 7:29 AM 09/03/2007 4:02 PM Care Teams Egg Factory Worker Relationship Specialty Start Date End Date Juancho Romero MD [address] [place] [address] [place] [id number] PCP - General Family Medicine 12/27/16 documented as of this encounter
--- OUTSIDE RECORDS SUMMARY | 2024-01-23 21:14 | External Medical Summary | Summary of Care ---
Author Name Unknown Organization [facility] Address [address] [place] [address] Phone [phone] Care Team Providers Care Tank Builder Name Role Phone Juancho Romero MD Primary Care Provider [phone] Reason for Visit * Reason Comments Outpatient Testing Encounter Details Date Type Department Care Team (Late st Contact Info) Description 10/22/2023 10:00 AM EST Laboratory Laboratory [address] [place] [phone] [place] [address] Urothelial carcinoma of bladder (HCC); Carcinoma of bladder (HCC); Chronic kidney disease, stage 3a (HCC); Encounter for antineoplastic immunotherapy Allergies Active Allergy Reactions Criticality Noted Date Comments Penicillins Other (Please comment),Rash High Eyes swell Pollen 05/03/2022 Wound Dressing Adhesive Rash 05/02/2023 Patient reported documented as of this encounter (statuses as of 10/22/2023) Medications Medication Sig Dispensed Refills Start Date [...] albuterol 120 mL 5 11/21/2022 Active Ipratropium [place] 0.02 % Inhalation Solution (Atrovent)Indicatio ns:Moderate persistent [...] Respimat 2.5 MCG/ACT Inhalation Aerosol Solution (Tiotropium [place] Monohydrate)Indicat ions:Moderate persistent asthma without complication INHALE [...] evening. Or take as instructed by the [facility] 90 Tablet 3 08/09/2023 [...] for Sleep. 30 Tablet 0 10/09/2023 Active Hospital, Clinic, or Other Facility Administered [...] as of this encounter (statuses as of 10/22/2023) Active Problems Problem Noted Date Diagnosed Date [...] rinse after steroid. Test performed by Sameer DISHTANK OPERATOR CPFT Pleural plaque due to asbestos exposure Restrictive lung disease Overview: In Check dial performed to assess inhaler technique: 12/15/19 Name of inhalers Albuterol Pass: Yes at 60 L/min and Advair Pass: Yes at 60 L/min. Encouraged to to take deep breath, use aero chamber, and rinse after steroid. Test performed by Sameer DISHTANK OPERATOR CPFT Hx of pulmonary embolus 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 Overview: [place] C0-M6 documented as of this encounter (statuses as of 10/22/2023) Resolved Problems Problem Noted Date Diagnosed Date [...] tissue, and skin 04/20/2015 09/26/2017 Ventricular tachycardia 09/21/2014 05 Postoperative pulmonary embolism 09/20/2014 09/29/2018 Overview: S/p shoulder surgery Thrombocytopenia 09/04/2011 09/04/2011 Chronic coronary artery disease 06/29/2009 10/13/2013 Overview: Mild cor atherosclerosis. Malignant neoplasm of prostate 09/23/2008 03/27/2018 Overview: [place] grade 3 Atrial flutter 09/02/2007 10/16/2007 [...] as of this encounter (statuses as of 10/22/2023) Immunizations Name Administration Dates Next Due COVID-19 mRNA, LNP-s, No Pre serve, 2-Dose Series (Medisse) 12/01/2021,01/16/2021,12/26/2020 COVID-19, LNP-s, No Preserve , Ozzy-sucrose, Ages 12+ (Pfizer) 12/01/2021 COVID-19, MRNA-LNP, 23-24, P F, 30 MCG/0.3 mL, 12 YRS AND ABOVE, IM ([facility]) 09/18/2023 Covid-19, Mrna, Lnp-s, Pf, B ivalent, 30 Mcg, IM, 12 yrs and above (Medisse) 10/09/2022 Pneumococcal Conjugate Vacc, 13 Valent (Prevnar) [...] 10/23/2023 11:15 AM EST Immunization/Injection Hematology/Oncology Treatment, [address] [place] [address] Nurse, Med [address] [place] [address] [place] [address] 10/29/2023 10:30 AM EST Laboratory Laboratory [address] [place] [phone] [address] [place] [address] 10/30/2023 11:15 AM EST Immunization/Injection Hematology/Oncology Treatment, [address] [place] [address] Nurse, Med [address] [place] [address] [place] [address] 11/04/2023 6:30 AM EST Anticoagulation Pharmacy Call Center WB 58-60 [facility] [place] [address] [facility] 58 60 [facility] [place] [address] 11/04/2023 3:40 PM EST Office Visit Family Medicine [address] [place] [phone] Bell Mcqueen MD [address] [place] [address] [place] [address] 11/05/2023 10:30 AM EST Laboratory Laboratory [address] [place] [phone] [place] [address] 11/06/2023 11:15 AM EST Immunization/Injection Hematology/Oncology Treatment, [place] [address] [place] [address] Nurse, Med 200 [facility] [place] [address] 11/19/2023 12:15 PM EST Office Visit [facility] [address] [place] [address] Pablo Casanova, 16 [place] [address] 12/31/2023 1:00 PM EST Cardiac Studies Cardiology [address] [place] [address] [facility], Pacer [facility] 132 [place] [address] 01/03/2024 10:30 AM EST Imaging Radiology [address] 132 [facility] [place] [address] 01/08/2024 10:00 AM EST Office Visit Hematology/Oncology [facility] [address] [place] [address] Ludwig Louis MD 200 [facility] [place] [address] 04/10/2024 10:40 AM EDT Office Visit Rheumatology [address] [place] [phone] Win Nielsen MD 0920 [facility] [place] [address] Pending Results Name Type Priority Associated Diagnoses Date /Time CBC WITH WBC DIFFERENTIAL Lab STAT Urothelial carcinoma of bladder (HCC) 10/22/2023 10:51 AM EST COMPREHENSIVE METABOLIC PANEL Lab STAT Carcinoma of bladder (HCC) Chronic kidney disease, stage 3a (HCC) Encounter for antineoplastic immunotherapy 10/22/2023 10:51 AM EST FERRITIN Lab STAT Carcinoma of bladder (HCC) Chronic kidney disease, stage 3a (HCC) Encounter for antineoplastic immunotherapy 10/22/2023 10:51 AM EST VITAMIN B12 Lab STAT Carcinoma of bladder (HCC) Chronic kidney disease, stage 3a (HCC) Encounter for antineoplastic immunotherapy 10/22/2023 10:51 AM EST FOLIC ACID Lab STAT Carcinoma of bladder (HCC) Chronic kidney disease, stage 3a (HCC) Encounter for antineoplastic immunotherapy 10/22/2023 10:51 AM EST IRON SCREEN, INCLUDING TIBC Lab STAT Carcinoma of bladder (HCC) Chronic kidney disease, stage 3a (HCC) Encounter for antineoplastic immunotherapy 10/22/2023 10:51 AM EST CBC Lab STAT Urothelial carcinoma of bladder (HCC) 10/22/2023 10:51 AM EST DIFFERENTIAL, AUTOMATED Lab STAT Urothelial carcinoma of bladder (HCC) 10/22/2023 10:51 AM EST Scheduled Procedures Name Priority Associated Diagnoses Date/Ti me ESOPHAGOGASTRODUODENOSCOPY ( EGD), FLEXIBLE, TRANSORAL, DIAGNOSTIC Recall Stark's esophagus with dysplasia Health Maintenance Due Date Last Done Comments Depression Screening 07/12/2021 07/12/2020 CKD PHOS USE SMARTSET 77154 08/21/2022 100 02/2021, 07/12/2020, 03/13/2019, Additional history exists *BISPHONATE OR OTHER ACCEPTABLE MEDICATION NEEDED FOR OSTEOPOROSIS (REFER TO SMARTSET #1146) 10/14/2023 Albumin/Creatinine Ratio 04/22/20242 023, 05/24/2022, 03/26/2022, Additional history exists TSH 10/08/2024 10/08/2023, 100 01/2023, 06/19/2023, Additional history exists CKD HGB USE SMARTSET 26656 10/15/202410/15, 10/15/2023, 10/08/2023, Additional history exists Stark's Esophagus Surveilance 02/26/2025 02/26/2022, 07/04/2021, 01/31/2021, Additional history exists DXA Scan 07/05/2025 07/05/2023, 10/19, 11/04/2018, Additional history exists DTaP,Tdap,and Td Vaccines (2 - Td or Tdap) 08/19/2027 08/19/2017, 08/20/2008 Pneumococcal Vaccine: 65+ Years Completed 06/23/2015, 05/14/2013, 04/18/2004 Zoster Vaccines Completed 12/02/2020, 08/15/2020 VITAMIN D LEVEL ONCE IN A LIFETIME-USE SMARTSET# 89059 Completed 04/22/2023, 08/28/2021, 07/14/2015 Influenza Vaccine (FLU [...] this encounter Medical Devices Implanted Type Area Life Advisor Device Identifier Shelf Expiration Date Model / Serial / Lot Power Port 8fr Sngl Lumen Plas - [id number] Implanted:Qty: 1 on 02/22/2022 at [facility] BARD : PERIPHERAL VASCULAR [id number] 02/15/2023 [id number] / / [id number] documented as of this encounter Visit Diagnoses Diagnosis Urothelial carcinoma of bladder (HCC) Carcinoma of bladder (HCC) Malignant neoplasm of bladder, part unspecified Chronic kidney disease, stage 3a (HCC) Encounter for antineoplastic immunotherapy documented in this encounter Advance Directives Latest Code Status on File Code Status Date Activated Date Inactivated Comments Full Code 09/03/2007 7:29 AM 09/03/2007 4:02 PM Care Teams Tank Builder Relationship Specialty Start Date End Date Juancho Romero MD [address] [place] [address] [place] [id number] PCP - General Family Medicine 2/9/17 documented as of this encounter
--- OUTSIDE RECORDS SUMMARY | 2024-01-23 21:14 | External Medical Summary ---
Author Name Unknown Address Unknown Organization K01:[facility] - [address] [place] [address] Laboratory Report Ordering Provider Test Date Status ADRIENNE SALCIDO 10/22/2023 10:51:26 Final Observation Date Value Abnormality Reference (Units ) Status Folic Acid 10/22/2023 10:51:26 7.4 >4.5 (ng/ mL) Final Performing Location [facility] - [address] [place] [address]
--- OUTSIDE RECORDS SUMMARY | 2024-01-23 21:14 | External Medical Summary ---
Author Name Unknown Address Unknown Organization K01:[facility] - [address] [facility] [place] [address] Laboratory Report Ordering Provider Test Date Status ADRIENNE SALCIDO 10/29/2023 12:03:03 Final Observation Date Value Abnormality Reference (Units ) Status SYNC LEUKOCYTES IN BLOOD BY AUTOMATED COUNT 10/29/2023 12:03:03 6.62 4.00-10.80 (K/uL) Final Segs 10/29/2023 12:03:03 78.9 Above high normal 40.0-75.0 (%) Final Lymphs % 10/29/2023 12:03:03 6.3 Below low normal 18.0-42.0 (%) Final Monos 10/29/2023 12:03:03 9.5 1.0-11.0 (%) Final Eosinophils 10/29/2023 12:03:03 2.9 0.0-6.0 (%) Final Basos 10/29/2023 12:03:03 0.9 0.0-2.0 (%) Final Immature Granulocyte, Percent 10/29/2023 12:03:03 1.5 0.0-2.0 (%) Final Absolute Segs 10/29/2023 12:03:03 5.22 1.80-7.70 (K/uL) Final Lymphs, absolute 10/29/2023 12:03:03 0.42 Below low normal 1.00-4.80 (K/ul) Final Monos, Abs 10/29/2023 12:03:03 0.63 0.00-1.10 (K/uL) Final Eos, Abs 10/29/2023 12:03:03 0.19 0.00-0.70 (K/uL) Final Basos, Abs 10/29/2023 12:03:03 0.06 0.00-0.20 (K/uL) Final Immature Granulocytes, Number 10/29/2023 12:03:03 0.10 0.00-0.20 (K/uL) Final Performing Location [facility] - [facility] [address] [facility] [address]
--- OUTSIDE RECORDS SUMMARY | 2024-01-23 21:14 | External Medical Summary | Summary of Care ---
Author Name Unknown Organization [facility] Address [address] [place] [address] Phone [phone] Care Team Providers Care Registered Radiographer Name Role Phone Juancho Romero MD Primary Care Provider [phone] Reason for Visit * Reason Comments Outpatient Testing Encounter Details Date Type Department Care Team (Late st Contact Info) Description 10/29/2023 10:30 AM EST Laboratory Laboratory [address] [place] [phone] [place] [address] Urothelial carcinoma of bladder (HCC) Allergies Active [...] albuterol 120 mL 5 11/21/2022 Active Ipratropium [place] 0.02 % Inhalation Solution (Atrovent)Indicatio ns:Moderate persistent [...] Respimat 2.5 MCG/ACT Inhalation Aerosol Solution (Tiotropium [place] Monohydrate)Indicat ions:Moderate persistent asthma without complication INHALE [...] rinse after steroid. Test performed by Sameer ELECTRONIC TESTER CPFT Pleural plaque due to asbestos exposure Restrictive lung disease Overview: In Check dial performed to assess inhaler technique: 12/15/19 Name of inhalers Albuterol Pass: Yes at 60 L/min and Advair Pass: Yes at 60 L/min. Encouraged to to take deep breath, use aero chamber, and rinse after steroid. 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 Overview: [place] C0-M6 documented as of this encounter (statuses [...] mRNA, LNP-s, No Pre serve, 2-Dose Series (CBTec) 12/01/2021,01/16/2021,12/26/2020 COVID-19, LNP-s, No Preserve , Ozzy-sucrose, Ages 12+ (Pfizer) 12/01/2021 COVID-19, MRNA-LNP, 23-24, P F, 30 MCG/0.3 mL, 12 YRS AND ABOVE, IM (Study[employer]-Comirnaty) 09/18/2023 Covid-19, Mrna, Lnp-s, Pf, B ivalent, [...] 1:20 PM EST Office Visit Family Medicine [address] [place] [phone] Juancho Romero MD [address] [place] [address] [place] [address] Arrived 10/30/2023 11:15 AM EST Immunization/Injection Hematology/Oncology Treatment, [place] [address] [facility] [address] Nurse, Med 4 [address] [facility] [address] 11/04/2023 6:30 AM EST Anticoagulation Pharmacy Call Center 58-60 [facility] [place] [address] [facility] 58 60 [facility] [place] [address] 11/04/2023 3:40 PM EST Office Visit Family Medicine [address] [phone] Bell Mcqueen MD [address] [place] [address] [place] [address] 11/05/2023 10:30 AM EST Laboratory Laboratory [address] [place] [phone] [place] [address] 11/06/2023 11:15 AM EST Immunization/Injection Hematology/Oncology Treatment, [place] [address] [place] [address] Nurse, Med 200 [facility] [place] [address] 11/19/2023 12:15 PM EST Office Visit [facility] 16 [place] [address] Pablo Casanova, 16 [place] [address] 12/31/2023 1:00 PM EST Cardiac Studies Cardiology [address] [place] [address] Og Frazier [facility] 132 [facility] [place] [address] 01/03/2024 10:30 AM EST Imaging Radiology [facility] 1st [facility] 132 [facility] [place] [address] 01/08/2024 10:00 AM EST Office Visit Hematology/Oncology [facility] [place] 200 [facility] [place] [address] Ludwig Louis MD 200 [facility] [place] [address] 08/10/2024 1:40 PM EDT Office Visit Rheumatology [address] [place] [phone] Win Nielsen MD [address] [place] [address] [place] [address] Pending Results Name Type Priority Associated Diagnoses Date /Time CBC WITH WBC DIFFERENTIAL Lab STAT Urothelial carcinoma of bladder (HCC) 10/29/2023 12:03 PM EST CBC Lab STAT Urothelial carcinoma of bladder (HCC) 10/29/2023 12:03 PM EST DIFFERENTIAL, AUTOMATED Lab STAT Urothelial carcinoma of bladder (HCC) 10/29/2023 12:03 PM EST Scheduled Procedures Name Priority Associated Diagnoses Date/Ti me ESOPHAGOGASTRODUODENOSCOPY ( EGD), FLEXIBLE, TRANSORAL, DIAGNOSTIC Recall Stark's esophagus with dysplasia Health Maintenance Due Date Last Done Comments Depression Screening 07/12/2021 07/12/2020 CKD PHOS USE SMARTSET 35077 08/21/2022 100 02/2021, 07/12/2020, 03/13/2019, Additional history exists *BISPHONATE OR OTHER ACCEPTABLE MEDICATION NEEDED FOR OSTEOPOROSIS (REFER TO SMARTSET #1146) 10/14/2023 Albumin/Creatinine Ratio 04/22/2024 023, 05/24/2022, 03/26/2022, Additional history exists TSH 10/08/2024 10/08/2023, 100 01/2023, 06/19/2023, Additional history exists CKD HGB USE SMARTSET 40550 10/22/202410/22, 10/22/2023, 10/15/2023, Additional history exists Stark's Esophagus Surveilance 02/26/2025 02/26/2022, 07/04/2021, 01/31/2021, Additional history exists DXA Scan 07/05/2025 07/05/2023, 10/19, 11/04/2018, Additional history exists DTaP,Tdap,and Td Vaccines (2 - Td or Tdap) 08/19/2027 08/19/2017, 08/20/2008 Pneumococcal Vaccine: 65+ Years Completed 06/23/2015, 05/14/2013, 04/18/2004 Zoster Vaccines Completed 12/02/2020, 08/15/2020 VITAMIN D LEVEL ONCE IN A LIFETIME-USE SMARTSET# [id number] Completed 04/22/2023, 08/28/2021, 07/14/2015 Influenza Vaccine (FLU [...] this encounter Medical Devices Implanted Type Area Oxygen Plant Operator Device Identifier Shelf Expiration Date Model / Serial / Lot Power Port 8fr Sngl Lumen Plas - [id number] Implanted:Qty: 1 on 02/22/2022 at [facility] BARD : PERIPHERAL VASCULAR [id number] 02/15/2023 [id number] / / [id number] documented as of this encounter Visit Diagnoses Diagnosis Urothelial carcinoma of bladder (HCC) documented in this encounter Advance Directives Latest Code Status on File Code Status Date Activated Date Inactivated Comments Full Code 09/03/2007 7:29 AM 09/03/2007 4:02 PM Care Teams Registered Radiographer Relationship Specialty Start Date End Date Juancho Romero MD [address] [place] [address] [place] [address] PCP - General Family Medicine 12/27/16 documented as of this encounter
--- OUTSIDE RECORDS SUMMARY | 2024-01-23 21:15 | External Medical Summary | Summary of Care ---
Author Name Unknown Organization [facility] Address [address] [place] [address] Phone [phone] Care Team Providers Care Pastoral Assistant Name Role Phone Juancho Romero MD Primary Care Provider [phone] Reason for Visit * Reason Comments Outpatient Testing Encounter Details Date Type Department Care Team (Late st Contact Info) Description 10/15/2023 11:00 AM EST Laboratory Laboratory [address] [place] [phone] [place] [address] Urothelial carcinoma of bladder (HCC) Allergies Active Allergy Reactions Criticality Noted Date Comments Penicillins Other (Please comment),Rash High Eyes swell Pollen 05/03/2022 Wound Dressing Adhesive Rash 05/02/2023 Patient reported documented as of this encounter (statuses as of 10/15/2023) Medications Medication Sig Dispensed Refills Start Date [...] 120 mL 5 11/21/2022 Active Ipratropium [place] 0.02 % Inhalation Solution (Atrovent)Indicatio ns:Moderate persistent [...] 2.5 MCG/ACT Inhalation Aerosol Solution (Tiotropium [place] Monohydrate)Indicat ions:Moderate persistent asthma without complication INHALE [...] instructed by the [facility] 90 Tablet 3 08/09/2023 Active [...] 750 MG Oral Tablet (Levaquin)Indicatio ns:Pneumonia of right lower lobe due to infectious organism Take 1 Tablet by mouth every other day for 3 doses. until gone. 3 Tablet 0 10/11/2023 10/16/2023 Active Hospital, Clinic, or Other Facility Administered [...] as of this encounter (statuses as of 10/15/2023) Active Problems Problem Noted Date Diagnosed Date [...] rinse after steroid. Test performed by Sameer BALLISTIC EXPERT CPFT Pleural plaque due to asbestos exposure Restrictive lung disease Overview: In Check dial performed to assess inhaler technique: 12/15/19 Name of inhalers Albuterol Pass: Yes at 60 L/min and Advair Pass: Yes at 60 L/min. Encouraged to to take deep breath, use aero chamber, and rinse after steroid. Test performed by Sameer BALLISTIC EXPERT CPFT Hx of pulmonary embolus 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 Overview: [place] C0-M6 documented as of this encounter (statuses as of 10/15/2023) Resolved Problems Problem Noted Date Diagnosed Date [...] as of this encounter (statuses as of 10/15/2023) Immunizations Name Administration Dates Next Due COVID-19 mRNA, LNP-s, No Pre serve, 2-Dose Series ([employer]) 12/01/2021,01/16/2021,12/26/2020 COVID-19, LNP-s, No Preserve , Ozzy-sucrose, Ages 12+ (Pfizer) 12/01/2021 COVID-19, MRNA-LNP, 23-24, P F, 30 MCG/0.3 mL, 12 YRS AND ABOVE, IM ([facility]) 09/18/2023 Covid-19, Mrna, Lnp-s, Pf, B ivalent, 30 Mcg, IM, 12 yrs and above ([employer]) 10/09/2022 Pneumococcal Conjugate Vacc, 13 Valent (Prevnar) [...] Care Team (Late st Contact Info) Description 10/16/2023 2:00 PM EST Immunization/Injection Hematology/Oncology Treatment, [place] 200 [facility] [place] [address] Nurse, Med [address] [place] [address] 10/18/2023 6:30 AM EST Anticoagulation Pharmacy Call Center 58-60 [place] [address] Ccps, [facility] 58 60 [place] [address] 11/04/2023 3:40 PM EST Office Visit Family Medicine [address] [phone] Bell Mcqueen MD [address] [place] [address] [place] [address] 11/05/2023 11:00 AM EST Immunization/Injection Hematology/Oncology Treatment, [place] 200 [facility] [place] [address] Nurse, Med 4 [address] [place] [address] 11/28/2023 1:30 PM EST Office Visit [facility] 16 [place] [address] Pablo Casanova, DO 16 [place] [address] 12/31/2023 1:00 PM EST Cardiac Studies Cardiology [address] [place] [address] [place], Pac[facility] 132 Terri No[address] [place] [address] 01/03/2024 10:30 AM EST Imaging Radiology [facility] 1st [facility] 132 [facility] [place] [address] 01/08/2024 10:00 AM EST Office Visit Hematology/Oncology [facility] [address] [place] [address] Ludwig Louis MD [address] [place] [address] 04/10/2024 10:40 AM EDT Office Visit Rheumatology [address] [place] [phone] Win Nielsen MD [facility] [place] [address] Pending Results Name Type Priority Associated Diagnoses Date /Time CBC WITH WBC DIFFERENTIAL Lab STAT Urothelial carcinoma of bladder (HCC) 10/15/2023 12:16 PM EST CBC Lab STAT Urothelial carcinoma of bladder (HCC) 10/15/2023 12:16 PM EST DIFFERENTIAL, AUTOMATED Lab STAT Urothelial carcinoma of bladder (HCC) 10/15/2023 12:16 PM EST Scheduled Procedures Name Priority Associated Diagnoses Date/Ti me ESOPHAGOGASTRODUODENOSCOPY ( EGD), FLEXIBLE, TRANSORAL, DIAGNOSTIC Recall Stark's esophagus with dysplasia Health Maintenance Due Date Last Done Comments Depression Screening 07/12/2021 07/12/2020 CKD PHOS USE SMARTSET 33581 08/21/2022 10/0 02/2021, 07/12/2020, 03/13/2019, Additional history exists *BISPHONATE OR OTHER ACCEPTABLE MEDICATION NEEDED FOR OSTEOPOROSIS (REFER TO SMARTSET #1146) 10/14/2023 Albumin/Creatinine Ratio 04/22/2024 023, 05/24/2022, 03/26/2022, Additional history exists CKD HGB USE SMARTSET 56644 10/08/202410/08, 10/08/2023, 10/01/2023, Additional history exists TSH 10/08/2024 10/08/2023, 1001/2023, 06/19/2023, Additional history exists Stark's Esophagus Surveilance 02/26/2025 02/26/2022, 07/04/2021, 01/31/2021, Additional history exists DXA Scan 07/05/2025 07/05/2023, 10/19, 11/04/2018, Additional history exists DTaP,Tdap,and Td Vaccines (2 - Td or Tdap) 08/19/2027 08/19/2017, 08/20/2008 Pneumococcal Vaccine: 65+ Years Completed 06/23/2015, 05/14/2013, 04/18/2004 Zoster Vaccines Completed 12/02/2020, 08/15/2020 VITAMIN D LEVEL ONCE IN A LIFETIME-USE SMARTSET# [id number] Completed 04/22/2023, 08/28/2021, 07/14/2015 Influenza Vaccine (FLU [...] this encounter Medical Devices Implanted Type Area Book Publisher Device Identifier Shelf Expiration Date Model / Serial / Lot Power Port 8fr Sngl Lumen Plas - [id number] Implanted:Qty: 1 on 02/22/2022 at [facility] BARD : PERIPHERAL VASCULAR [id number] 02/15/2023 [id number] / / [id number] documented as of this encounter Visit Diagnoses Diagnosis Urothelial carcinoma of bladder (HCC) documented in this encounter Advance Directives Latest Code Status on File Code Status Date Activated Date Inactivated Comments Full Code 09/03/2007 7:29 AM 09/03/2007 4:02 PM Care Teams Pastoral Assistant Relationship Specialty Start Date End Date Juancho Romero MD [address] [place] [address] [place] [address] PCP - General Family Medicine 12/27/16 documented as of this encounter
--- OUTSIDE RECORDS SUMMARY | 2024-01-23 21:15 | External Medical Summary ---
Author Name Unknown Address Unknown Organization K01:[facility]ATORY [place] - [address] [place] [address] Laboratory Report Ordering Provider Test Date Status ADRIENNE SALCIDO 10/22/2023 10:51:26 Final Observation Date Value Abnormality Reference (Units ) Status SYNC LEUKOCYTES IN BLOOD BY AUTOMATED COUNT 10/22/2023 10:51:26 6.84 4.00-10.80 (K/uL) Final Segs 10/22/2023 10:51:26 80.6 Above high normal 40.0-75.0 (%) Final Lymphs % 10/22/2023 10:51:26 6.3 Below low normal 18.0-42.0 (%) Final Monos 10/22/2023 10:51:26 9.1 1.0-11.0 (%) Final Eosinophils 10/22/2023 10:51:26 1.8 0.0-6.0 (%) Final Basos 10/22/2023 10:51:26 0.9 0.0-2.0 (%) Final Immature Granulocyte, Percent 10/22/2023 10:51:26 1.3 0.0-2.0 (%) Final Absolute Segs 10/22/2023 10:51:26 5.52 1.80-7.70 (K/uL) Final Lymphs, absolute 10/22/2023 10:51:26 0.43 Below low normal 1.00-4.80 (K/ul) Final Monos, Abs 10/22/2023 10:51:26 0.62 0.00-1.10 (K/uL) Final Eos, Abs 10/22/2023 10:51:26 0.12 0.00-0.70 (K/uL) Final Basos, Abs 10/22/2023 10:51:26 0.06 0.00-0.20 (K/uL) Final Immature Granulocytes, Number 10/22/2023 10:51:26 0.09 0.00-0.20 (K/uL) Final Performing Location [facility] [place] - [facility] [address] [facility] [address]
--- OUTSIDE RECORDS SUMMARY | 2024-01-23 21:15 | External Medical Summary ---
Author Name Unknown Address Unknown Organization K01:[facility] [place] [facility] [place][note 3] [address] [facility] [address] [place] [address] Laboratory Report Ordering Provider Test Date Status ADRIENNE SALCIDO 10/22/2023 10:51:26 Final Observation Date Value Abnormality Reference (Units ) Status WBC, Total 10/22/2023 10:51:26 6.84 4.00-10.80 (K/uL) Final RBC 10/22/2023 10:51:26 3.61 4.50-5.25 (M/uL) Final Hemoglobin 10/22/2023 10:51:26 9.9 Below low normal 14.0-16.8 (g/dL) Final HCT 10/22/2023 10:51:26 35.5 Below low normal 40.0-48.4 (%) Final MCV 10/22/2023 10:51:26 98.3 82.0-99.5 (fL) Final MCH 10/22/2023 10:51:26 27.4 27.0-34.0 (pg) Final MCHC 10/22/2023 10:51:26 27.9 32.0-36.0 (g/dL) Final RDW 10/22/2023 10:51:26 15.9 11.5-15.5 (%) Final Platelets 10/22/2023 10:51:26 146 140-400 (K/uL) Final MPV 10/22/2023 10:51:26 11.1 6.6-11.1 (fL) Final Nucleated erythrocytes/100 leukocytes [Ratio] in Blood by Automated count 10/22/2023 10:51:26 0 <=0 (/100 WBCs) Final Performing Location [facility] [place] [address] [place] [address]
--- OUTSIDE RECORDS SUMMARY | 2024-01-23 21:15 | External Medical Summary ---
Author Name Unknown Address Unknown Organization K01:[facility] [place] - [address] [place] [address] Laboratory Report Ordering Provider Test Date Status ADRIENNE SALCIDO 10/22/2023 10:51:26 Final Observation Date Value Abnormality Reference (Units ) Status Iron 10/22/2023 10:51:26 79 45-176 (ug /dL) Final Iron-binding capacity 10/22/2023 10:51:26 281 250-425 (ug/dL) Final Transferrin Sat % 10/22/2023 10:51:26 28 15 -55 (%) Final Performing Location [facility] [place] - [address] [place] [address]
--- OUTSIDE RECORDS SUMMARY | 2024-01-23 21:15 | External Medical Summary | Summary of Care ---
Author Name Unknown Organization [facility] Address [address] [place] [address] Phone [phone] Care Team Providers Care Director Of Acquisition Marketing Name Role Phone Juancho Romero MD Primary Care Provider Reason for Visit * Reason Comments Dosage Adjustment Via Phone (anticoag Cl inic) Encounter Details Date Type Department Care Team (Latest Contact Info) Description 10/21/2023 6:30 AM EST Anticoagulation Pharmacy Call Center [address] [place] [address] [facility] [address] [place] [address] Hx of pulmonary embolus*; Longstanding persistent atrial fibrillation (HCC) Allergies Active Allergy Reactions Criticality Noted Date Comments Penicillins Other (Please comment),Rash High Eyes swell Pollen 05/03/2022 Wound Dressing Adhesive Rash 05/02/2023 Patient reported documented as of this encounter (statuses as of 10/21/2023) Medications Medication Sig Dispensed Refills Start Date [...] albuterol 120 mL 5 11/21/2022 Active Ipratropium [place] 0.02 % Inhalation Solution (Atrovent)Indicatio ns:Moderate persistent [...] Respimat 2.5 MCG/ACT Inhalation Aerosol Solution (Tiotropium [place] Monohydrate)Indicat ions:Moderate persistent asthma without complication INHALE [...] evening. Or take as instructed by the [facility] 90 Tablet 3 [...] as of this encounter (statuses as of 10/21/2023) Active Problems Problem Noted Date Diagnosed Date [...] rinse after steroid. Test performed by Sameer FAITH DOCTOR CPFT Pleural plaque due to asbestos exposure Restrictive lung disease Overview: In Check dial performed to assess inhaler technique: 12/15/19 Name of inhalers Albuterol Pass: Yes at 60 L/min and Advair Pass: Yes at 60 L/min. Encouraged to to take deep breath, use aero chamber, and rinse after steroid. 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 current use of ant icoagulant therapy 05/30/2005 [...] as of this encounter (statuses as of 10/21/2023) Immunizations Name Administration Dates Next Due COVID-19 mRNA, LNP-s, No Pre serve, 2-Dose Series (Lupatech) 12/01/2021,01/16/2021,12/26/2020 COVID-19, LNP-s, No Preserve , Ozzy-sucrose, Ages 12+ (Pfizer) 12/01/2021 COVID-19, MRNA-LNP, 23-24, P F, 30 MCG/0.3 mL, 12 YRS AND ABOVE, IM ([facility]Y-[facility]) 09/18/2023 Covid-19, Mrna, Lnp-s, [...] as of this encounter Progress Notes * Terese Downs PHARM Tech - 10/21/2023 10:04 AM EST Contacts Type Contact Phone/Fax 10/21/2023 10:00 AM EST Phone (Outgoing) Patrick Robles "Rafa" (Self) [phone] (H) Spoke with Mariana Subjective Patient Findings Negatives: Signs/symptoms of bleeding, Change in health, Change in activity, Upcoming invasive procedure, Missed doses, Extra doses, Change in medications, Change in diet/appetite, Bruising Advised patient to contact Anticoagulation Clinic if any unusual bruising or bleeding, recent illness, changes in medication, or questions/concerns. PT/INR results, Coumadin dose instructions, and next PT/INR date communicated as noted by Pharmacist: Yes ELLIE ZAMUDIO 10/21/2023, 10:04 AM * Tammie Scruggs RPh - 10/21/2023 9:21 AM EST Coumadin Clinic (region specific) Objective Current Warfarin Dose As of 10/21/2023 Warfarin maintenance plan: 0 mg every Mon; 2.5 mg (5 mg x 0.5) all other days INR Result As of 10/21/2023 INR goal: 2.0-3.0 INR used for dosin.6 (10/18/2023) Assessment & Plan Warfarin Plan As of 10/21/2023 Full warfarin instructions: 0 mg every Mon; 2.5 mg all other days No change documented: Tammie Scruggs corby Next INR check: 11/01/2023 Repeat PT/INR in 2 week(s) Weekly dose: not changed Additional Dosing Information: Description Home boring 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 Tammie Scruggs RPh 10/21/2023, 9:22 AM documented in this encounter Plan of Treatment Upcoming Encounters Date Type Department Care Team (Late st Contact Info) Description 10/22/2023 10:00 AM EST Laboratory Laboratory [address] [place] [phone] [place] [address] 10/23/2023 11:15 AM EST Immunization/Injecti on Hematology/[address]cology [address] [address] Nurse, Med 4 [address] [facility] [place] [address] 10/29/2023 10:30 AM EST Laboratory Laboratory [address] [place] [phone] [place] [address] 10/30/2023 11:15 AM EST Immunization/Injecti on Hematology/Oncology Treatment, [address] [address] Nurse, Med 4 [address] [facility] [place] [address] 11/04/2023 3:40 PM EST Office Visit Family Medicine [address] [place] [phone] Bell Mcqueen MD [address] [place] [address] [place] [address] 11/05/2023 10:30 AM EST Laboratory Laboratory [address] [place] [phone] [address] [place] [address] 11/06/2023 11:15 AM EST Immunization/Injecti on Hematology/Oncology Treatment, [place] [address] [place] [address] Nurse, Med 200 [facility] [place] [address] 11/19/2023 12:15 PM EST Office Visit [facility] [address] [place] [address] Pablo Casanova, 16 [place] [address] 12/31/2023 1:00 PM EST Cardiac Studies Cardiology [address] [place] [address] Og Frazier [facility] [address] [facility] [place] [address] 01/03/2024 10:30 AM EST Imaging Radiology [address] [facility] [place] [address] 01/08/2024 10:00 AM EST Office Visit Hematology/Oncology [facility] 200 [facility] [place] [address] Ludwig Louis MD 200 [facility] [place] [address] 04/10/2024 10:40 AM EDT Office Visit Rheumatology [address] [place] [phone] [place] [address] [place] [address] [place] [address] Scheduled Procedures Name Priority Associated Diagnoses Date/Ti me ESOPHAGOGASTRODUODENOSCOPY ( EGD), FLEXIBLE, TRANSORAL, DIAGNOSTIC Recall Stark's esophagus with dysplasia Health Maintenance Due Date Last Done Comments Depression Screening 07/12/2021 07/12/2020 CKD PHOS USE SMARTSET 51484 08/21/2022 100 02/2021, 07/12/2020, 03/13/2019, Additional history exists *BISPHONATE OR OTHER ACCEPTABLE MEDICATION NEEDED FOR OSTEOPOROSIS (REFER TO SMARTSET #1146) 10/14/2023 Albumin/Creatinine Ratio 04/22/2024 023, 05/24/2022, 03/26/2022, Additional history exists TSH 10/08/2024 10/08/2023, 100 01/2023, 06/19/2023, Additional history exists CKD HGB USE SMARTSET 71455 10/15/202410/15, 10/15/2023, 10/08/2023, Additional history exists Stark's Esophagus Surveilance 02/26/2025 02/26/2022, 07/04/2021, 01/31/2021, Additional history exists DXA Scan 07/05/2025 07/05/2023, 10/19, 11/04/2018, Additional history exists DTaP,Tdap,and Td Vaccines (2 - Td or Tdap) 08/19/2027 08/19/2017, 08/20/2008 Pneumococcal Vaccine: 65+ Years Completed 06/23/2015, 05/14/2013, 04/18/2004 Zoster Vaccines Completed 12/02/2020, 08/15/2020 VITAMIN D LEVEL ONCE IN A LIFETIME-USE SMARTSET# [id number] Completed 04/22/2023, 08/28/2021, 07/14/2015 Influenza Vaccine (FLU [...] this encounter Medical Devices Implanted Type Area Supervisor Tubing Device Identifier Shelf Expiration Date Model / Serial / Lot Power Port 8fr Sngl Lumen Plas - [id number] Implanted:Qty: 1 on 02/22/2022 at [facility] : PERIPHERAL VASCULAR [id number] 02/15/2023 [id number] / / [id number] documented as of this encounter Procedures Procedure Name Priority Date/Time Associated Diagnosis Comments OUTSIDE LAB-PT/INR Routine 10/18/2023 documented in this encounter Results * OUTSIDE LAB-PT/INR (10/18/2023) INR-OUTSIDE LAB 2.6 HOME FINGERSTIC K DEVICE History Per Patient LABORATORY HOME FINGERSTICK DEVICE documented in this encounter Visit Diagnoses Diagnosis Hx of pulmonary embolus- Primary Personal history of pulmonary embolism Longstanding persistent atrial fibrillation (HCC) documented in this encounter Advance Directives Latest Code Status on File Code Status Date Activated Date Inactivated Comments Full Code 09/03/2007 7:29 AM 09/03/2007 4:02 PM Care Teams Director Of Acquisition Marketing Relationship Specialty Start Date End Date Juancho Romero MD [address] [place] [address] [place] [address] PCP - General Family Medicine 12/27/16 documented as of this encounter
--- OUTSIDE RECORDS SUMMARY | 2024-01-23 21:15 | External Medical Summary ---
Author Name Unknown Address Unknown Organization K01:LABORATORY [facility] [place] - [address] [place] [address] Laboratory Report Ordering Provider Test Date Status ADRIENNE SALCIDO 10/22/2023 10:51:26 Final Observation Date Value Abnormality Reference (Units ) Status Vitamin B12 10/22/2023 10:51:26 2648 430-0314 (pg/mL) Final Performing Location LAB[facility]ATORY [facility] [place] - [address] [place] [address]
--- OUTSIDE RECORDS SUMMARY | 2024-01-23 21:15 | External Medical Summary ---
Author Name Unknown Address Unknown Organization K01:[facility] [place] [address] [facility] [place] [address] Laboratory Report Ordering Provider Test Date Status ADRIENNE SALCIDO 10/15/2023 12:16:56 Final Observation Date Value Abnormality Reference (Units ) Status SYNC LEUKOCYTES IN BLOOD BY AUTOMATED COUNT 10/15/2023 12:16:56 7.68 4.00-10.80 (K/uL) Final Segs 10/15/2023 12:16:56 83.8 Above high normal 40.0-75.0 (%) Final Lymphs % 10/15/2023 12:16:56 5.1 Below low normal 18.0-42.0 (%) Final Monos 10/15/2023 12:16:56 7.2 1.0-11.0 (%) Final Eosinophils 10/15/2023 12:16:56 1.2 0.0-6.0 (%) Final Basos 10/15/2023 12:16:56 0.9 0.0-2.0 (%) Final Immature Granulocyte, Percent 10/15/2023 12:16:56 1.8 0.0-2.0 (%) Final Absolute Segs 10/15/2023 12:16:56 6.44 1.80-7.70 (K/uL) Final Lymphs, absolute 10/15/2023 12:16:56 0.39 Below low normal 1.00-4.80 (K/ul) Final Monos, Abs 10/15/2023 12:16:56 0.55 0.00-1.10 (K/uL) Final Eos, Abs 10/15/2023 12:16:56 0.09 0.00-0.70 (K/uL) Final Basos, Abs 10/15/2023 12:16:56 0.07 0.00-0.20 (K/uL) Final Immature Granulocytes, Number 10/15/2023 12:16:56 0.14 0.00-0.20 (K/uL) Final Performing Location [facility] [place] [facility] [address] [facility] [address]
--- OUTSIDE RECORDS SUMMARY | 2024-01-23 21:15 | External Medical Summary ---
Author Name Unknown Address Unknown Organization K01:[facility]ATORY [facility] [place] - 100 [facility] [place] [address] Laboratory Report Ordering Provider Test Date Status ADRIENNE SALCIDO 10/22/2023 10:51:26 Final Observation Date Value Abnormality Reference (Units ) Status BUN 10/22/2023 10:51:26 27 Above high normal 6-20 (mg/dL) Final Creatinine 10/22/2023 10:51:26 1.5 Above high normal 0.6-1.2 (mg/dL) Final Glomerular filtration rate/1.73 sq M.predicted [Volume Rate/Area] in Serum, Plasma or Blood by Creatinine-based formula (CKD-EPI) 10/22/2023 10:51:26 44 Below low normal >=60 (mL/min) Final eGFR is calculated based on the CKD-EPI 2020 equation SODIUM 10/22/2023 10:51:26 140 135-146 (m mol/L) Final Potassium 10/22/2023 10:51:26 4.6 3.5-5.1 (m mol/L) Final Cl 10/22/2023 10:51:26 104 98-107 (mm ol/L) Final CO2 10/22/2023 10:51:26 25 22-32 (mmo l/L) Final Anion gap 10/22/2023 10:51:26 11 7-15 (mmol /L) Final Glucose 10/22/2023 10:51:26 118 70-120 (mg /dL) Final Albumin 10/22/2023 10:51:26 3.8 3.8-5.0 (g /dL) Final AST (Aspartate aminotransferase) 10/22/2023 10:51:26 20 10-50 (U/L) Fin al Alk Phos 10/22/2023 10:51:26 73 35-130 (U/ L) Final Bilirubin, Total 10/22/2023 10:51:26 0.9 <=1 .2 (mg/dL) Final Calcium 10/22/2023 10:51:26 9.0 8.4-10.2 ( mg/dL) Final Protein 10/22/2023 10:51:26 5.8 Below low normal 6.0 -8.3 (g/dL) Final ALT (Alanine aminotransferase) 10/22/2023 10:51:26 12 10-50 (U/L) Amador gomes Performing Location LABORATORY [facility] [place] - [address] [facility] [address]
--- OUTSIDE RECORDS SUMMARY | 2024-01-23 21:15 | External Medical Summary ---
Author Name Unknown Address Unknown Organization K01:LABORATORY [place] [address] [address] [facility] [address] [place] [address] Laboratory Report Ordering Provider Test Date Status ADRIENNE SALCIDO 10/15/2023 12:16:56 Final Observation Date Value Abnormality Reference (Units ) Status WBC, Total 10/15/2023 12:16:56 7.68 4.00-10.80 (K/uL) Final RBC 10/15/2023 12:16:56 3.65 4.50-5.25 (M/uL) Final Hemoglobin 10/15/2023 12:16:56 10.1 Below low normal 14.0-16.8 (g/dL) Final HCT 10/15/2023 12:16:56 36.6 Below low normal 40.0-48.4 (%) Final MCV 10/15/2023 12:16:56 100.3 82.0-99.5 (fL) Final MCH 10/15/2023 12:16:56 27.7 27.0-34.0 (pg) Final MCHC 10/15/2023 12:16:56 27.6 32.0-36.0 (g/dL) Final RDW 10/15/2023 12:16:56 15.8 11.5-15.5 (%) Final Platelets 10/15/2023 12:16:56 160 140-400 (K/uL) Final MPV 10/15/2023 12:16:56 11.2 6.6-11.1 (fL) Final Nucleated erythrocytes/100 leukocytes [Ratio] in Blood by Automated count 10/15/2023 12:16:56 0 <=0 (/100 WBCs) Final Performing Location LABORATORY [facility] [place] - [address] [place] [address]
--- OUTSIDE RECORDS SUMMARY | 2024-01-23 21:15 | External Medical Summary | Summary of Care ---
Author Name Unknown Organization [facility] Address [address] [place] [address] Phone [phone] Care Team Providers Care Hatchery Worker Name Role Phone Juancho Romero MD Primary Care Provider Reason for Visit * Reason Onset Date Comments Advice 10/21/2023 Encounter Details Date Type Department Care Team (Late st Contact Info) Description 10/21/2023 Telephone Family [address] [phone] Juancho Romero MD [address] [place] [address] [place] [address] Advice Allergies Active Allergy Reactions Criticality [...] albuterol 120 mL 5 11/21/2022 Active Ipratropium [place] 0.02 % Inhalation Solution (Atrovent)Indicatio ns:Moderate persistent [...] Respimat 2.5 MCG/ACT Inhalation Aerosol Solution (Tiotropium [place] Monohydrate)Indicat ions:Moderate persistent asthma without complication INHALE [...] rinse after steroid. Test performed by Sameer INSURANCE HEALTHCARE REPRESENTATIVE CPFT Pleural plaque due to asbestos exposure Restrictive lung disease Overview: In Check dial performed to assess inhaler technique: 12/15/19 Name of inhalers Albuterol Pass: Yes at 60 L/min and Advair Pass: Yes at 60 L/min. Encouraged to to take deep breath, use aero chamber, and rinse after steroid. 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 Please call patient and advise. Patient has been seen and has finished the antibiotic given. documented in this encounter Plan of Treatment Upcoming Encounters Date Type Department Care Team (Late st Contact Info) Description 10/22/2023 10:00 AM EST Laboratory Laboratory [address] [place] [phone] [place] [address] 10/23/2023 11:15 AM EST Immunization/Injection Hematology/Oncology Treatment, [place] [address] [place] [address] Nurse, Med [address] [place] [address] 10/29/2023 10:30 AM EST Laboratory Laboratory [address] [place] [phone] [place] [address] 10/30/2023 11:15 AM EST Immunization/Injection Hematology/Oncology Treatment, [place] [address] [facility] [place] [address] Nurse, Med 4 200 [facility] [place] [address] 11/04/2023 6:30 AM EST Anticoagulation Pharmacy Call Center WB [address] [facility] [place] [address] [facility] 58 60 [facility] [place] [address] 11/04/2023 3:40 PM EST Office Visit Family Medicine [address] [place] [phone] Bell Mcqueen MD [address] [place] [address] [place] [address] 11/05/2023 10:30 AM EST Laboratory Laboratory [address] [place] [phone] [place], Lab [address] [place] [address] 11/06/2023 11:15 AM EST Immunization/Injection Hematology/Oncology Treatment, [place] [address] [facility] [place] [address] Nurse, Med 4 200 [facility] [place] [address] 11/19/2023 12:15 PM EST Office Visit [facility] 16 [place] [address] Pablo Casanova, 16 [place] [address] 12/31/2023 1:00 PM EST Cardiac Studies Cardiology [address] [place] [address] Og Frazier [address] [place] [address] 01/03/2024 10:30 AM EST Imaging Radiology [facility] [address] [place] [address] 01/08/2024 10:00 AM EST Office Visit Hematology/Oncology [facility] [address] [place] [address] Ludwig Louis MD [address] [place] [address] 04/10/2024 10:40 AM EDT Office Visit Rheumatology [address] [place] [phone] Win Nielsen MD [address] [facility] [place] [address] Scheduled Procedures Name Priority Associated Diagnoses Date/Ti me ESOPHAGOGASTRODUODENOSCOPY ( EGD), FLEXIBLE, TRANSORAL, DIAGNOSTIC Recall Stark's esophagus with dysplasia Health Maintenance Due Date Last Done Comments Depression Screening 07/12/2021 07/12/2020 CKD PHOS USE SMARTSET 43467 08/21/2022 100 02/2021, 07/12/2020, 03/13/2019, Additional history exists *BISPHONATE OR OTHER ACCEPTABLE MEDICATION NEEDED FOR OSTEOPOROSIS (REFER TO SMARTSET #1146) 10/14/2023 Albumin/Creatinine Ratio 04/22/20242 023, 05/24/2022, 03/26/2022, Additional history exists TSH 10/08/2024 10/08/2023, 100 01/2023, 06/19/2023, Additional history exists CKD HGB USE SMARTSET 67936 10/15/202410/15, 10/15/2023, 10/08/2023, Additional history exists Stark's Esophagus Surveilance 02/26/2025 02/26/2022, 07/04/2021, 01/31/2021, Additional history exists DXA Scan 07/05/2025 07/05/2023, 12/07/2020, 11/04/2018, Additional history exists DTaP,Tdap,and Td Vaccines (2 - Td or Tdap) 08/19/2027 08/19/2017, 08/20/2008 Pneumococcal Vaccine: 65+ Years Completed 06/23/2015, 05/14/2013, 04/18/2004 Zoster Vaccines Completed 12/02/2020, 08/15/2020 VITAMIN D LEVEL ONCE IN A LIFETIME-USE SMARTSET# [id number] Completed 04/22/2023, 08/28/2021, 07/14/2015 Influenza Vaccine (FLU [...] this encounter Medical Devices Implanted Type Area Classifier Device Identifier Shelf Expiration Date Model / Serial / Lot Power Port 8fr Sngl Lumen Plas - [id number] Implanted:Qty: 1 on 02/22/2022 at [facility] : PERIPHERAL VASCULAR [id number] 02/15/2023 [id number] / / [id number] documented as of this encounter Advance Directives Latest Code Status on File Code Status Date Activated Date Inactivated Comments Full Code 09/03/2007 7:29 AM 09/03/2007 4:02 PM Care Teams Hatchery Worker Relationship Specialty Start Date End Date Juancho Romero MD [address] [place] [address] [place] [id number] PCP - General Family Medicine 12/27/16 documented as of this encounter
--- OUTSIDE RECORDS SUMMARY | 2024-01-23 21:15 | External Medical Summary | Summary of Care ---
Author Name Unknown Organization [facility] Address [address] [place] [address] Phone [phone] Care Team Providers Care Nurse General Duty Name Role Phone Juancho Romero MD Primary Care Provider Reason for Visit * Reason Comments Medication Administration Procrit * Episode Based Medications (Routine) - Authorized Specialty Diagnoses / Procedures Referred By Aaron t Referred To Contact Diagnoses Carcinoma of bladder (HCC) Chronic kidney disease, stage 3a (HCC) Iron deficiency anemia, unspecified iron deficiency anemia type Procedures [place] INJ RETACRIT NON-ESRD USE [place] THERAPEUTIC PROPHYLACTIC/DX INJECTION SUBQ/IM [place] EPOETIN IVAN, NON-ESRD Ludwig Louis MD [address] [place] [address] Anc Hem/Onc Dony Hickman DEPT CLOSED - 10/01/23 [address] [place] [phone] Referral ID Status Reason Start Date Expiration Date V isits Requested Visits Authorized [id number] Authorized 09/12/2022 04/25/[phone] Encounter Details Date Type Department Care Team (Late st Contact Info) Description 10/16/2023 2:00 PM EST Immunization/I njection Hematology/Oncology Treatment, [place] [address] [place] [address] Nurse, Med [address] [place] [address] Encounter for central line care*; Carcinoma of bladder (HCC); Chronic kidney disease, stage 3a (HCC); Iron deficiency anemia, unspecified iron deficiency anemia type Allergies Active Allergy Reactions Criticality Noted Date Comments Penicillins Other (Please comment),Rash High Eyes swell Pollen 05/03/2022 Wound Dressing Adhesive Rash 05/02/2023 Patient reported documented as of this encounter (statuses as of 10/16/2023) Medications Medication Sig Dispensed Refills Start Date [...] albuterol 120 mL 5 11/21/2022 Active Ipratropium [place] 0.02 % Inhalation Solution (Atrovent)Indicatio ns:Moderate persistent [...] Respimat 2.5 MCG/ACT Inhalation Aerosol Solution (Tiotropium [place] Monohydrate)Indicat ions:Moderate persistent asthma without complication INHALE [...] Or take as instructed by the [facility] 90 Tablet 3 08/09/2023 [...] as of this encounter (statuses as of 10/16/2023) Active Problems Problem Noted Date Diagnosed Date [...] rinse after steroid. Test performed by Sameer CUT IN WORKER CPFT Pleural plaque due to asbestos exposure Restrictive lung disease Overview: In Check dial performed to assess inhaler technique: 12/15/19 Name of inhalers Albuterol Pass: Yes at 60 L/min and Advair Pass: Yes at 60 L/min. Encouraged to to take deep breath, use aero chamber, and rinse after steroid. Test performed by Sameer CUT IN WORKER CPFT Hx of pulmonary embolus 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 Overview: [place] C0-M6 documented as of this encounter (statuses as of 10/16/2023) Resolved Problems Problem Noted Date Diagnosed Date [...] Malignant neoplasm of prostate 09/23/2008 03/27/2018 Overview: [place] grade 3 Atrial flutter 09/02/2007 10/16/2007 Herpes simplex virus infection 08/22/2005 04/05/2016 Anal fissure 06/04/2005 10/16/2007 penitentiary current use of ant icoagulant therapy 05/30/2005 [...] as of this encounter (statuses as of 10/16/2023) Immunizations Name Administration Dates Next Due COVID-19 mRNA, LNP-s, No Pre serve, 2-Dose Series (Powered Outcomes) 12/01/2021,01/16/2021,12/26/2020 COVID-19, LNP-s, No Preserve , Ozzy-sucrose, Ages 12+ (Pfizer) 12/01/2021 COVID-19, MRNA-LNP, 23-24, P F, 30 MCG/0.3 mL, 12 YRS AND ABOVE, IM (Construct-Comirnaty) 09/18/2023 Covid-19, Mrna, Lnp-s, Pf, B ivalent, 30 Mcg, IM, 12 yrs and above (Powered Outcomes) 10/09/2022 Pneumococcal Conjugate Vacc, 13 Valent (Prevnar) [...] Sign Reading Time Taken Comments Blood Pressure 96/61 10/16/2023 2:03 PM EST Pulse 84 10/16/2023 2:03 PM EST Temperature - - Respiratory Rate - - Oxygen Saturation - - Inhaled Oxygen Concentration - - Weight - - Height - - Body Mass Index - - documented in this encounter Nursing Notes * Leana Sears LPN - 10/16/2023 3:19 PM EST 1400: Pt arrived for Procrit injection. Hgb 10.1. Administered in SHON. Pt tolerated well. VSS. No complaints at this time. documented in this encounter Plan of Treatment Upcoming Encounters Date Type Department Care Team (Late st Contact Info) Description 10/18/2023 6:30 AM EST Anticoagulation Pharmacy Call Center 58[address]60 [facility] [place] [address] [address], [facility] 58 60 [facility] [place] [address] 10/22/2023 10:00 AM EST Laboratory Laboratory [address] [place] [phone] [place] [address] 10/23/2023 11:15 AM EST Immunization/Injection Hematology/Oncology Treatment, [address] [address] Nurse, Med [address] [place] [address] [place] [address] 10/29/2023 10:30 AM EST Laboratory Laboratory [address] [place] [phone] [place] [address] 10/30/2023 11:15 AM EST Immunization/Injection Hematology/Oncology Treatment, [address] [address] Nurse, Med 4 200 [facility] [place] [address] 11/04/2023 3:40 PM EST Office Visit Family Medicine [address] [place] [phone] Bell Mcqueen MD [address] [place] [address] [place] [address] 11/05/2023 10:30 AM EST Laboratory Laboratory [address] [place] [phone] [place] [address] 11/06/2023 11:15 AM EST Immunization/Injection Hematology/Oncology Treatment, [place] [address] [place] [address] Nurse, Med 200 [facility] [place] [address] 11/28/2023 1:30 PM EST Office Visit [facility] Eye [address] [address] Pablo Casanova, [address] [place] [address] 12/31/2023 1:00 PM EST Cardiac Studies Cardiology [address] [place] [address] [facility] [address] [facility] [place] [address] 01/03/2024 10:30 AM EST Imaging Radiology [facility] [address] [facility] [place] [address] 01/08/2024 10:00 AM EST Office Visit Hematology/Oncology [facility] [address] [place] [address] Ludwig Louis MD [address] [place] [address] 04/10/2024 10:40 AM EDT Office Visit Rheumatology [address] [place] [phone] Win Nielsen MD [address] [place] [address] [place] [address] Scheduled Procedures Name Priority Associated Diagnoses Date/Ti me ESOPHAGOGASTRODUODENOSCOPY ( EGD), FLEXIBLE, TRANSORAL, DIAGNOSTIC Recall Stark's esophagus with dysplasia Health Maintenance Due Date Last Done Comments Depression Screening 07/12/2021 07/12/2020 CKD PHOS USE SMARTSET 01494 08/21/2022 100 02/2021, 07/12/2020, 03/13/2019, Additional history exists *BISPHONATE OR OTHER ACCEPTABLE MEDICATION NEEDED FOR OSTEOPOROSIS (REFER TO SMARTSET #1146) 10/14/2023 Albumin/Creatinine Ratio 04/22/2024 023, 05/24/2022, 03/26/2022, Additional history exists TSH 10/08/2024 10/08/2023, 01/2023, 06/19/2023, Additional history exists CKD HGB USE SMARTSET 30409 10/15/202410/15, 10/15/2023, 10/08/2023, Additional history exists Stark's Esophagus Surveilance 02/26/2025 02/26/2022, 07/04/2021, 01/31/2021, Additional history exists DXA Scan 07/05/2025 07/05/2023, 10/19, 11/04/2018, Additional history exists DTaP,Tdap,and Td Vaccines (2 - Td or Tdap) 08/19/2027 08/19/2017, 08/20/2008 Pneumococcal Vaccine: 65+ Years Completed 06/23/2015, 05/14/2013, 04/18/2004 Zoster Vaccines Completed 12/02/2020, 08/15/2020 VITAMIN D LEVEL ONCE IN A LIFETIME-USE SMARTSET# [id number] Completed 04/22/2023, 08/28/2021, 07/14/2015 Influenza Vaccine (FLU [...] encounter Medical Devices Implanted Type Area Air Intelligence Officer Device Identifier Shelf Expiration Date Model / Serial / Lot Power Port 8fr Sngl Lumen Plas - [id number] Implanted:Qty: 1 on 02/22/2022 at [facility] CR BARD : PERIPHERAL VASCULAR [id number] 02/15/2023 [id number] / / [id number] documented as of this encounter Visit Diagnoses [...] Action Date Dose Rate Site Epoetin Ivan 95014 UNIT/ML inj 40,000 Units 40,000 Units, Subcutaneous, ONCE, On Sat10/16/23 at 1445, For 1 dose Given 10/16/2023 2:08 PM EST 40,000 Units Arm Right Upper documented in this encounter Advance Directives Latest Code Status on File Code Status Date Activated Date Inactivated Comments Full Code 09/03/2007 7:29 AM 09/03/2007 4:02 PM Care Teams Nurse General Duty Relationship Specialty Start Date End Date Juancho Romero MD [address] [place] [address] [place] [address] PCP - General Family Medicine 12/27/16 documented as of this encounter
--- OUTSIDE RECORDS SUMMARY | 2024-01-23 21:15 | External Medical Summary ---
Author Name Unknown Address Unknown Organization K01:LABORATORY [facility] - [address] [place] [address] Laboratory Report Ordering Provider Test Date Status ADRIENNE SALCIDO 10/22/2023 10:51:26 Final Observation Date Value Abnormality Reference (Units ) Status Ferritin 10/22/2023 10:51:26 87 30-400 (ng /mL) Final Performing Location LABORATORY [facility] - [address] [place] [address]
--- OUTSIDE RECORDS SUMMARY | 2024-01-23 21:15 | External Medical Summary | Summary of Care ---
Author Name Unknown Organization [facility] Address [address] [place] [address] Phone [phone] Care Team Providers Care Light Bulb Tester Name Role Phone Juancho Romero MD Primary Care Provider Encounter Details Date Type Department Care Team (Late st Contact Info) Description 10/18/2023 Result Scan Unspecified Department Tammie Scruggs, [facility] [address] [place] [address] <No scans attached> Allergies Active Allergy Reactions Criticality Noted Date Comments Penicillins Other (Please comment),Rash High Eyes swell Pollen 05/03/2022 Wound Dressing Adhesive Rash 05/02/2023 Patient reported documented as of this encounter (statuses as of 10/18/2023) Medications Medication Sig Dispensed Refills Start Date [...] albuterol 120 mL 5 11/21/2022 Active Ipratropium [place] 0.02 % Inhalation Solution (Atrovent)Indicatio ns:Moderate persistent [...] Respimat 2.5 MCG/ACT Inhalation Aerosol Solution (Tiotropium [place] Monohydrate)Indicat ions:Moderate persistent asthma without complication INHALE [...] as of this encounter (statuses as of 10/18/2023) Active Problems Problem Noted Date Diagnosed Date [...] rinse after steroid. Test performed by Sameer DOMESTIC VIOLENCE ADVOCATE CPFT Pleural plaque due to asbestos exposure Restrictive lung disease Overview: In Check dial performed to assess inhaler technique: 12/15/19 Name of inhalers Albuterol Pass: Yes at 60 L/min and Advair Pass: Yes at 60 L/min. Encouraged to to take deep breath, use aero chamber, and rinse after steroid. 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 05/30/2005 [...] as of this encounter (statuses as of 10/18/2023) Immunizations Name Administration Dates Next Due COVID-19 mRNA, LNP-s, No Pre serve, 2-Dose Series ([employer]) 12/01/2021,01/16/2021,12/26/2020 COVID-19, LNP-s, No Preserve , Ozzy-sucrose, Ages 12+ ([employer]) 12/01/2021 COVID-19, MRNA-LNP, 23-24, P F, 30 MCG/0.3 mL, 12 YRS AND ABOVE, IM [facility] 09/18/2023 Covid-19, Mrna, Lnp-s, Pf, B ivalent, [...] Team (Late st Contact Info) Description 10/21/2023 6:30 AM EST Anticoagulation Pharmacy Call Center 58[address]60 [facility] [place] [address] [facility] 58 60 [facility] [place] [address] 10/22/2023 10:00 AM EST Laboratory Laboratory [address] [place] [phone] [place] [address] 10/23/2023 11:15 AM EST Immunization/Injection Hematology/Oncology Treatment, [address] [address] Nurse, Med 4 200 [facility] [address] 10/29/2023 10:30 AM EST Laboratory Laboratory [address] [place] [phone] [place] [address] 10/30/2023 11:15 AM EST Immunization/Injection Hematology/Oncology Treatment, [address] [address] Nurse, Med 4 200 [place] [address] 11/04/2023 3:40 PM EST Office Visit Family Medicine [address] [place] [phone] Bell Mcqueen MD [address] [place] [address] [place] [address] 11/05/2023 10:30 AM EST Laboratory Laboratory [address] [place] [phone] [place] [address] 11/06/2023 11:15 AM EST Immunization/Injection Hematology/Oncology Treatment, [place] [address] [place] [address] Nurse, Med 200 [facility] [place] [address] 11/19/2023 12:15 PM EST Office Visit [facility] Eye [address] [address] Pablo Casanova, [address] [place] [address] 12/31/2023 1:00 PM EST Cardiac Studies Cardiology [address] [place] [address] [facility] 132 [facility] [place] [address] 01/03/2024 10:30 AM EST Imaging Radiology [facility] [address] [facility] [place] [address] 01/08/2024 10:00 AM EST Office Visit Hematology/Oncology [facility] [address] [place] [address] Ludwig Louis MD [address] [place] [address] 04/10/2024 10:40 AM EDT Office Visit Rheumatology [address] [place] [phone] Win Nielsen MD [address] [place] [address] [place] [address] Scheduled Procedures Name Priority Associated Diagnoses Date/Ti me ESOPHAGOGASTRODUODENOSCOPY ( EGD), FLEXIBLE, TRANSORAL, DIAGNOSTIC Recall Stark's esophagus with dysplasia Health Maintenance Due Date Last Done Comments Depression Screening 07/12/2021 07/12/2020 CKD PHOS USE SMARTSET 85718 08/21/[address] 02/2021, 07/12/2020, 03/13/2019, Additional history exists *BISPHONATE OR OTHER ACCEPTABLE MEDICATION NEEDED FOR OSTEOPOROSIS (REFER TO SMARTSET #1146) 10/14/2023 Albumin/Creatinine Ratio 04/22/2024 023, 05/24/2022, 03/26/2022, Additional history exists TSH 10/08/2024 10/08/2023, 01/2023, 06/19/2023, Additional history exists CKD HGB USE SMARTSET 27212 10/15/202410/15, 10/15/2023, 10/08/2023, Additional history exists Stark's Esophagus Surveilance 02/26/2025 02/26/2022, 07/04/2021, 01/31/2021, Additional history exists DXA Scan 07/05/2025 07/05/2023, 10/19, 11/04/2018, Additional history exists DTaP,Tdap,and Td Vaccines (2 - Td or Tdap) 08/19/2027 08/19/2017, 08/20/2008 Pneumococcal Vaccine: 65+ Years Completed 06/23/2015, 05/14/2013, 04/18/2004 Zoster Vaccines Completed 12/02/2020, 08/15/2020 VITAMIN D LEVEL ONCE IN A LIFETIME-USE SMARTSET# [id number] Completed 04/22/2023, 08/28/2021, 07/14/2015 Influenza Vaccine (FLU [...] this encounter Medical Devices Implanted Type Area Model Engine Mechanic Device Identifier Shelf Expiration Date Model / Serial / Lot Power Port 8fr Sngl Lumen Plas - [id number] Implanted:Qty: 1 on 02/22/2022 at [facility] CR BARD : PERIPHERAL VASCULAR [id number] 02/15/2023 [id number] / / [id number] documented as of this encounter Procedures Procedure Name Priority Date/Time Associated Diagnosis Comments OUTSIDE LAB RESULTS 10/18/2023 documented in this encounter Results * OUTSIDE LAB RESULTS (10/18/2023) 10/18/2023 Tammie Scruggs [facility] LABORATORY documented in this encounter Advance Directives Latest Code Status on File Code Status Date Activated Date Inactivated Comments Full Code 09/03/2007 7:29 AM 09/03/2007 4:02 PM Care Teams Light Bulb Tester Relationship Specialty Start Date End Date Juancho Romero MD [address] [place] [address] [place] [id number] PCP - General Family Medicine 12/27/16 documented as of this encounter
--- OUTSIDE RECORDS SUMMARY | 2024-01-23 21:15 | External Medical Summary | Continuity of Care Document ---
Author Name Unknown Organization [facility] [address] [id number] Care Team Providers Care Night Warehouse Selector Name Role Phone Juancho Romero Primary Care Physician [phone] [id number] Date(s): 10/16/23 - 10/16/23 [facility] [address] [phone] Encounter Diagnosis History of basal cell carcinoma (BCC) of skin(Discharge Diagnosis) - 10/16/23 Inflamed seborrheic keratosis(Discharge Diagnosis) - 10/16/23 Ectropion of right lower eyelid(Discharge Diagnosis) - 10/16/23 Discharge Disposition: Home or Self Care Attending Physician: MD Blair, Carmelita Allergies, Adverse Reactions, Alerts Substance Reaction Severity Status penicillins Swelling Active Assessment and Plan Extracted from: Title:Office Visit Note Author:MD Blair, Ca ssandra Date:10/16/23 1.History of basal cell ca rcinoma (BCC) of skin - s/p Mohs surgery of a BCC of the L infraorbital cheek, repaired primarily on 10/16/23 - healing very well, recommend routine skin care - reviewed and demonstrated scar massage - reviewed skin cancer warning signs 2.Inflamed seborrheic keratosis - chronic benign lesions however acutely inflamed on exam today, reassurance provided; however, 2/2 irritation/symptoms decision made to proceed with cryotherapy today Cryotherapy performed following verbal consent and allowing time for questions. Alternative therapies were discussed, and education on wound healing, risk of thermal injury, dyspigmentation, infection and scar formation were performed. Wound care instructions reviewed. Total # lesions treated: 1 3.Ectropion of right lower eyelid - acute, developed over last month - patient already scheduled with oculoplastics Patient to follow-up skin exam for 01/2024 at check-out today Medications alfuzosin 10 mg oral tablet, extended release Start: 10/06/20 10:05:00 EST, 1 tab, PO, Daily Start Date: 10/06/20 Status: Ordered Carafate 1 g oral tablet Start: 10/06/20 10:08:00 EST, 1 tab, PO, qid Start Date: 10/06/20 Status: Ordered Co-Q10 Start: 02/16/19 11:51:00 EDT, 200 mg =, PO, Daily Start Date: 02/16/19 Status: Ordered ferrous sulfate Start: 02/16/19 11:50:00 EDT, 325 mg =, PO, Daily Start Date: 02/16/19 Status: Ordered furosemide 40 mg oral tablet Start: 07/01/23 14:06:00 EDT, 1 tab, PO, Daily Start Date: 07/01/23 Status: Ordered levoFLOXacin 750 mg oral tablet Start: 10/16/23 15:40:00 EST, 3 each, TAKE 1 TABLET BY MOUTH EVERY OTHER DAY FOR 3 DOSES. UNTIL GONE. Start Date: 10/16/23 Status: Ordered levothyroxine 125 mcg (0.125 mg) oral tablet Start: 07/01/23 14:06:00 EDT, 1 tab, PO, Daily Start Date: 07/01/23 Status: Ordered magnesium Start: 02/16/19 11:50:00 EDT, magnesium, PO Start Date: 02/16/19 Status: Ordered montelukast 10 mg oral tablet Start: 10/06/20 10:06:00 EST, 1 tab, PO, qPM Start Date: 10/06/20 Status: Ordered multivitamin Start: 07/19/22 10:07:00 EDT, 1 tab, PO, Daily Start Date: 07/19/22 Status: Ordered NexIUM 40 mg oral delayed release capsule Start: 02/16/19 11:49:00 EDT, 1 cap, PO, Daily Start Date: 02/16/19 Status: Ordered pramipexole 1 mg oral tablet TAKE 1 TABLET BY MOUTH EVERYDAY AT BEDTIME Start Date: 07/19/22 Status: Ordered predniSONE 5 mg oral tablet Start: 02/16/19 11:47:00 EDT, 1 tab, PO, Daily Start Date: 02/16/19 Status: Ordered ProAir HFA 90 mcg/inh inhalation aerosol Start: 10/06/20 10:07:00 EST, 1 puff, inhaled, qid, PRN: as needed for wheezing Start Date: 10/06/20 Status: Ordered risedronate 150 mg oral tablet TAKE ONE TABLET BY MOUTH ONCE A MONTH Start Date: 02/16/19 Status: Ordered rOPINIRole 1 mg oral tablet TAKE 1 TABLET BY MOUTH 1-3 HOURS BEFORE BEDTIME WITH FOOD FOR RESTLESS LEGS, MAY REPEAT DOSE IF NEED Start Date: 02/16/19 Status: Ordered rosuvastatin 10 mg oral tablet Start: 02/16/19 11:47:00 EDT, 1 tab, PO, Daily Start Date: 02/16/19 Status: Ordered Spiriva 18 mcg inhalation capsule Start: 10/06/20 10:08:00 EST, 1 each, inhaled, Daily Start Date: 10/06/20 Status: Ordered spironolactone 25 mg oral tablet Start: 07/01/23 14:06:00 EDT, 1 tab, PO, Daily Start Date: 07/01/23 Status: Ordered tamsulosin 0.4 mg oral capsule TAKE 1 CAPSULE BY MOUTH AT BEDTIME Start Date: 01/11/22 Status: Ordered Vitamin B12 Start: 10/06/20 10:08:00 EST, 500 mcg =, PO, Daily Start Date: 10/06/20 Status: Ordered warfarin 5 mg oral tablet Start: 02/16/19 11:47:00 EDT, 1 tab, PO, Daily, 2.5 mg daily Start Date: 02/16/19 Status: Ordered ZyrTEC 10 mg oral tablet Start: 02/16/19 11:51:00 EDT, 1 tab, PO, Daily Start Date: 02/16/19 Status: Ordered Mental Status 10/16/23 Barriers to Learning one year None evide nt Mandatory Health Literacy Documentation Yes Health Literacy Communication Barriers N ever Primary Language Yemeni Problem List Condition Confirmation Course Effective Dates Status H ealth Status Informant Anemia Confirmed Active Arthritis Confirmed Active Basal cell carcinoma of nose Confirmed Active Environmental allergies Confirmed Active History of heart valve replacement 1 Confirmed Active High cholesterol Confirmed Active Restless leg Confirmed Active Tobacco user Confirmed Active 1cow Diagnosis Diagnosis Type Effective Dates Health Status Clinical Service Informant History of basal cell carcinoma (BCC) of skin Discharge Diagnosis 10/16/23 Inflamed seborrheic keratosis Discharge Diagnosis 10/16/23 Ectropion of right lower eyelid Discharge Diagnosis 10/16/23 Procedures Procedure Date Related Diagnosis Body Site Status Mohs micrographic surgery 09/09/23 Completed Shave biopsy 1 07/01/23 Completed Mohs surgery 02/20/22 Completed Shave biopsy of skin 01/11/22 Comp leted Cystoscopy 12/18/21 Completed Punch biopsy of skin 2 10/06/20 Co mpleted Shave biopsy of skin 10/06/20 Comp leted Endoscopy 09/28/20 Completed Mohs micrographic surgery 05/17/20 Completed Mohs micrographic surgery 04/25/20 Completed Shave biopsy of skin 3 04/07/20 Co mpleted Excision 09/01/19 Completed Shave biopsy of skin 08/20/19 Comp leted Mohs micrographic surgery 4 04/28/19 Completed Mohs micrographic surgery 5 04/28/19 Completed Mohs surgery 04/06/19 Completed Shave biopsy of skin x 3 02/16/19 Completed H/O: surgery 2003 Completed Cardiac pacemaker Complet ed H/O: surgery 7 Completed History of hernia repair Completed Knee replacement- left Co mpleted Rotator cuff repair Compl eted 1left infraorbital cheek 2#4 punch 3Chin L Lateral Base of Neck R Postauricular 4left nasal dorsum 5right forehead 6heart valve 7colon recestion x2 Social History Social History Type Response Smoking Status Never smoked cigaret yeny Sex Male Dermatology Outpatient Note * MD Blair, Carmelita: PERFORM Event Display: Dermatology Outpt Note Authored Date: Chief Complaint Follow up Moh's 09-09 L infraorbital cheek. History of Present Illness Patient is an 88 yo CM, presents for follow-up s/p Moh surgery of a BCC of the L infraorbital cheek, repaired primarily on 10/16/23 Patient and report that he has healed very well from Mohs surgery, no issues at all. Patient notes raised bump within L ear, itchy and scratches it, wonders if it is anything to be concerned about. In the last month, patient developed an ectropion of the RIGHT lower eyelid. Evaluated by eye doctor and has appt with oculoplastics in [place] in 11/2023. Notes tearing of eye, but otherwise not bothersome. Completed treatment for bladder cancer, now monitoring, CT chest/abd/pelvis and cystoscopy every3 months, most recent with small pulmonary nodule that is being monitored. Physical Exam A&O x 3, well-appearing, well-groomed, pleasant Focused skin exam of Mohs surgical site at L infraorbital cheek reveals a well-healed minimally firm linear scar. Boyle waxy irritated papule at L conchal bowl. Notable ectropion at R lower eyelid. Images 2023-10-16 15:44:18 Assessment/Plan 1.History of basal cell carcinoma (BCC) of skin - s/p Mohs surgery of a BCC of the L infraorbital cheek, repaired primarily on 10/16/23 - healing very well, recommend routine skin care - reviewed and demonstrated scar massage - reviewed skin cancer warning signs 2.Inflamed seborrheic keratosis - chronic benign lesions however acutely inflamed on exam today, reassurance provided; however, 2/2irritation/symptoms decision made to proceed with cryotherapy today Cryotherapy performed following verbal consent and allowing time for questions. Alternative therapies were discussed, and education on wound healing, risk of thermal injury, dyspigmentation, infection and scar formation were performed. Wound care instructions reviewed. Total # lesions treated:1 3.Ectropion of right lower eyelid - acute, developed over last month - patient already scheduled with oculoplastics Patient to follow-up skin exam for 01/2024 at check-out today Problem List/Past Medical History Ongoing Anemia Arthritis Basal cell carcinoma of nose Environmental allergies High cholesterol History of heart valve replacement Restless leg Tobacco user Procedure/Surgical History Mohs micrographic surgery (09/09/2023)Shave biopsy (07/01/2023)Mohs surgery (02/20/2022)Shave biopsy of skin (01/11/2022)Cystoscopy (12/18/2021)Punch biopsy of skin (10/06/2020)Shave biopsy of skin (10/06/2020)Endoscopy (09/28/2020)Mohs micrographic surgery (05/17/2020)Mohs micrographic surgery (04/25/2020)Shave biopsy of skin (04/07/2020)Excision (09/01/2019)Shave biopsy of skin (08/20/2019)Mohs micrographic surgery (04/28/2019)Mohs micrographic surgery (04/28/2019)Mohs surgery (04/06/2019)Shave biopsy of skin x 3 (02/16/2019)H/O: surgery(2003)Cardiac pacemakerKnee replacement- leftHistory of hernia repairH/O: surgeryRotator cuff repair Medications albuterol(ProAir HFA 90 mcg/inh inhalation aerosol), 1 puff, inhaled, qid, PRN alfuzosin(alfuzosin 10 mg oral tablet, extended release), 10 mg= 1 tab, PO, Daily cetirizine(ZyrTEC 10 mg oral tablet), 10 mg= 1 tab, PO, Daily cyanocobalamin(Vitamin B12), 500 mcg, PO, Daily esomeprazole(NexIUM 40 mg oral delayed release capsule), 40 mg= 1 cap, PO, Daily ferrous sulfate, 325 mg, PO, Daily furosemide(furosemide 40 mg oral tablet), 40 mg= 1 tab, PO, Daily levoFLOXacin(levoFLOXacin 750 mg oral tablet) levothyroxine(levothyroxine 125 mcg (0.125 mg) oral tablet), 125 mcg= 1 tab, PO, Daily montelukast(montelukast 10 mg oral tablet), 10 mg= 1 tab, PO, qPM multivitamin, 1 tab, PO, Daily pramipexole(pramipexole 1 mg oral tablet) predniSONE(predniSONE 5 mg oral tablet), 5 mg= 1 tab, PO, Daily risedronate(risedronate 150 mg oral tablet) rOPINIRole(rOPINIRole 1 mg oral tablet) rosuvastatin(rosuvastatin 10 mg oral tablet), 10 mg= 1 tab, PO, Daily spironolactone(spironolactone 25 mg oral tablet), 25 mg= 1 tab, PO, Daily sucralfate(Carafate 1 g oral tablet), 1 g= 1 tab, PO, qid tamSULOsin(tamsulosin 0.4 mg oral capsule) tiotropium(Spiriva 18 mcg inhalation capsule), 18 mcg= 1 each, inhaled, Daily ubiquinone(Co-Q10), 200 mg, PO, Daily unknown medication(magnesium), PO warfarin(warfarin 5 mg oral tablet), 5 mg= 1 tab, PO, Daily Allergies penicillinsSwelling Social History Smoking Status Never smoked cigarettes Recommendations Health Maintenance Pending(in the next year) OverDue Adult Influenza Vaccine due07/01/23and every 1year Due Adult COVID-19 Vaccination due10/16/23Unknown Frequency Adult Tdap/Td Vaccine due10/16/23Unknown Frequency Body Mass Index due10/16/23Unknown Frequency Medicare Annual Wellness Visit due10/16/23and every 1year Pneumococcal Vaccine Older Adults due10/16/23One-time only Shingles Vaccine due10/16/23One-time only Satisfied(in the past 1 year) There are no satisfied recommendations within the defined date range Electronic Signature on File Electronically Reviewed/Signed by: Carmelita Pinto MD Author Signature Dt/Tm:10/16/2023 04:11 PM Department of Dermatology CS Patient Care team information Care Team Personnel Name: MD Romero Philip A Position: Referring DIRECT Member Role: Primary Care Provider Address: Address: [address] [place] [id number] [place] Care Team Related Persons Name: Pam CARMEN Address: [address] [id number]
--- OUTSIDE RECORDS SUMMARY | 2024-01-23 21:16 | External Medical Summary | Summary of Care ---
Author Name Unknown Organization [facility] Address [address] [place] [address] Phone [phone] Care Team Providers Care Baggagemaster Name Role Phone Juancho Romero MD Primary Care Provider [phone] Reason for Visit * Reason Comments Medication Administration Procrit * Episode Based Medications (Routine) - Authorized Specialty Diagnoses / Procedures Referred By Aaron t Referred To Contact Diagnoses Carcinoma of bladder (HCC) Chronic kidney disease, stage 3a (HCC) Iron deficiency anemia, unspecified iron deficiency anemia type Procedures RI INJ RETACRIT NON-ESRD USE RI THERAPEUTIC PROPHYLACTIC/DX INJECTION SUBQ/IM RI EPOETIN IVAN, NON-ESRD Ludwig Louis MD [address] [place] [address] Anc Hem/Onc Dony Hickman DEPT CLOSED - 10/01/23 [address] [place] [phone] Referral ID Status Reason Start Date Expiration Date V isits Requested Visits Authorized [id number] Authorized 09/12/2022 10/25/2023 999 [id number] Encounter Details Date Type Department Care Team (Late st Contact Info) Description 10/09/2023 11:45 AM EST Immunization/I njection Hematology/Oncology Treatment, [place] [address] [place] [address] Nurse, Med [address] [place] [address] Encounter for central line care*; Carcinoma of bladder (HCC); Chronic kidney disease, stage 3a (HCC); Iron deficiency anemia, unspecified iron deficiency anemia type Allergies Active Allergy Reactions Criticality Noted Date Comments Penicillins Other (Please comment),Rash High Eyes swell Pollen 05/03/2022 Wound Dressing Adhesive Rash 05/02/2023 Patient reported documented as of this encounter (statuses as of 10/09/2023) Medications Medication Sig Dispensed Refills Start Date [...] albuterol 120 mL 5 11/21/2022 Active Ipratropium Oakes 0.02 % Inhalation Solution (Atrovent)Indications :Moderate persistent asthma without complication Inhale 2.5 mL via nebulizer in the morning and 2.5 mL at noon and 2.5 mL in the evening and 2.5 mL before bedtime. Mix with albuterol solution. 75 mL 12 11/21/2022 Active Pramipexole Dihydrochloride 1 MG Oral Tablet (Mirapex)Indications: Restless leg syndrome TAKE 1 TABLET BY MOUTH EVERYDAY AT BEDTIME 90 Tablet 2 11/29/2022 Active predniSONE 5 MG Oral Tablet (Deltasone) TAKE 1 TABLET BY MOUTH EVERY DAY 90 Tablet 3 12/18/2022 Active Esomeprazole Magnesium 40 MG Oral Capsule Delayed ReleaseIndications:Ba rrett's esophagus determined by endoscopy TAKE 1 CAPSULE BY MOUTH TWICE A DAY 180 Capsule 1 2023 Active HYDROcodone Bit-Homatrop MBr 5-1.5 MG/5ML Oral Solution (Hycodan)Indications: Bronchitis, complicated Take 5 mL by mouth every 6 hours as needed for Cough. 120 mL 0 04/08/2023 Active traMADol HCl 50 MG Oral Tablet [...] FOOD DAILY 90 Tablet 3 04/18/2023 Active Risedronate Sodium 150 MG Oral Tablet (Actonel) TAKE 1 TABLET BY MOUTH EVERY 30 DAYS. 3 Tablet 3 04/18/2023 Active Spiriva Respimat 2.5 MCG/ACT Inhalation Aerosol Solution (Tiotropium Oakes Monohydrate)Indicatio ns:Moderate persistent asthma without complication INHALE 2 PUFFS BY MOUTH EVERY DAY 12 g 3 04/30/2023 Active Furosemide 40 MG Oral Tablet (Lasix)Indications:Ac fahad on chronic diastolic congestive heart failure (HCC) Take one tablet three times per week and as directed for weight gain 60 Tablet 3 05/08/2023 Active Rosuvastatin Calcium 10 MG Oral Tablet (Crestor) TAKE 1 TABLET BY MOUTH EVERY DAY 90 Tablet 1 05/27/2023 Active Warfarin Sodium 5 MG Oral Tablet (Coumadin)Indications :Pulmonary embolism and infarction (HCC) Take 0.5-1 Tablets by mouth every evening. 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 45 Tablet 3 08/14/2023 Active Levothyroxine Sodium 125 MCG Oral Tablet (Levoxyl)Indications: Carcinoma of bladder (HCC) TAKE 1 TAB BY MOUTH DAILY FIRST THING IN THE MORNING AT LEAST 30 MIN PRIOR TO BREAKFAST/OTHER MEDS 90 Tablet 0 08/26/2023 Active Hospital, Clinic, or Other Facility Administered [...] as of this encounter (statuses as of 10/09/2023) Active Problems Problem Noted Date Diagnosed Date [...] rinse after steroid. Test performed by Sameer [facility] Pleural plaque due to asbestos exposure Restrictive lung disease Overview: In Check dial performed to assess inhaler technique: 12/15/19 Name of inhalers Albuterol Pass: Yes at 60 L/min and Advair Pass: Yes at 60 L/min. Encouraged to to take deep breath, use aero chamber, and rinse after steroid. Test performed by [facility]er [facility] [employer] Hx of pulmonary embolus 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 Overview: [place] C0-M6 documented as of this encounter (statuses as of 10/09/2023) Resolved Problems Problem Noted Date Diagnosed Date [...] as of this encounter (statuses as of 10/09/2023) Immunizations Name Administration Dates Next Due COVID-19 mRNA, LNP-s, No Pre serve, 2-Dose Series (COZero) 12/01/2021,01/16/2021,12/26/2020 COVID-19, LNP-s, No Preserve , Ozzy-sucrose, Ages 12+ (COZero) 12/01/2021 COVID-19, MRNA-LNP, 23-24, P F, 30 MCG/0.3 mL, 12 YRS AND ABOVE, IM (NanoInk-Comirnaty) 09/18/2023 Covid-19, Mrna, Lnp-s, Pf, B ivalent, 30 Mcg, IM, 12 yrs and above (COZero) 10/09/2022 Pneumococcal Conjugate Vacc, 13 Valent (Prevnar) [...] Sign Reading Time Taken Comments Blood Pressure 103/66 10/09/2023 11:56 AM EST Pulse 80 10/09/2023 11:56 AM EST Temperature - - Respiratory Rate - - Oxygen Saturation - - Inhaled Oxygen Concentration - - Weight - - Height - - Body Mass Index - - documented in this encounter Nursing Notes * Leana Sears LPN - 10/09/2023 12:37 PM EST Pt arrived for Procrit injection. Hgb 9.9. Administered in SHON. Pt tolerated well. BP WNL. Pt to return in one week. Discharged in stable condition. documented in this encounter Plan of Treatment Upcoming Encounters Date Type Department Care Team (Late st Contact Info) Description 10/15/2023 11:00 AM EST Laboratory Laboratory [address] [place] [phone] [place] [address] 10/16/2023 11:15 AM EST Immunization/Injection Hematology/Oncology Treatment, [address] [place] [address] Nurse, Med 4 [address] [facility] [place] [address] 10/18/2023 6:30 AM EST Anticoagulation Pharmacy Call Center [address] [facility] [place] [address] Ccps, [facility] [address] [facility] [place] [address] 11/04/2023 3:40 PM EST Office Visit Family Medicine [address] [place] [phone] Bell Mcqueen MD [address] [place] [address] [place] [address] 11/05/2023 11:00 AM EST Immunization/Injection Hematology/Oncology Treatment, [address] [place] [address] Nurse, Med 4 [address] [facility] [place] [address] 12/31/2023 1:00 PM EST Cardiac Studies Cardiology [address] [place] [address] [facility] [address] [facility] [place] [address] 01/03/2024 10:30 AM EST Imaging Radiology [facility] 1st [facility] [address] [facility] [place] [address] 01/08/2024 10:00 AM EST Office Visit Hematology/Oncology [facility] [address] [place] [address] Ludwig Louis MD [address] [place] [address] 01/20/2024 8:20 AM EST Office Visit Ophthalmology, [facility] [address] [facility] [place] [address] Pablo Casanova, DO [address] [place] [address] 04/10/2024 10:40 AM EDT Office Visit Rheumatology [address] [place] [address] Win Nielsen MD [facility] [place], [place] [address] Scheduled Procedures Name Priority Associated Diagnoses Date/Ti me ESOPHAGOGASTRODUODENOSCOPY ( EGD), FLEXIBLE, TRANSORAL, DIAGNOSTIC Recall Stark's esophagus with dysplasia Health Maintenance Due Date Last Done Comments Depression Screening 07/12/2021 07/12/2020 CKD PHOS USE SMARTSET 29461 08/21/2022 10/0 02/2021, 07/12/2020, 03/13/2019, Additional history exists Albumin/Creatinine Ratio 04/22/2024 023, 05/24/2022, 03/26/2022, Additional history exists CKD HGB USE SMARTSET 68719 10/08/202410/08, 10/08/2023, 10/01/2023, Additional history exists TSH [...] D LEVEL ONCE IN A LIFETIME-USE SMARTSET# [id number] Completed 04/22/2023, 08/28/2021, 07/14/2015 Influenza Vaccine (FLU [...] this encounter Medical Devices Implanted Type Area Publicity Manager Device Identifier Shelf Expiration Date Model / Serial / Lot Power Port 8fr Sngl Lumen Plas - [id number] Implanted:Qty: 1 on 02/22/2022 at [facility] BARD : PERIPHERAL VASCULAR [id number] 02/15/2023 [id number] / / [id number] documented as of this encounter Visit Diagnoses [...] Action Date Dose Rate Site Epoetin Ivan [address] UNIT/ML inj 40,000 Units 40,000 Units, Subcutaneous, ONCE, On Sat10/09/23 at 1230, For 1 dose Given 10/09/2023 12:01 PM EST 40,000 Units Arm Right Upper documented in this encounter Advance Directives Latest Code Status on File Code Status Date Activated Date Inactivated Comments Full Code 09/03/2007 7:29 AM 09/03/2007 4:02 PM Care Teams Baggagemaster Relationship Specialty Start Date End Date Juancho Romero MD [address] [place] [address] [place] [phone] PCP - General Family Medicine 12/27/16 documented as of this encounter
--- OUTSIDE RECORDS SUMMARY | 2024-01-23 21:16 | External Medical Summary | Summary of Care ---
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 Operator Name Role Phone Juancho Romero MD Primary Care Provider [phone] Reason for Visit * Reason Comments Outpatient Testing Encounter Details Date Type Department Care Team (Late st Contact Info) Description 10/08/2023 11:00 AM EST Laboratory Laboratory [address] [place] [phone] [place] [address] Urothelial carcinoma of bladder (HCC) Allergies Active Allergy Reactions Criticality Noted Date Comments Penicillins Other (Please comment),Rash High Eyes swell Pollen 05/03/2022 Wound Dressing Adhesive Rash 05/02/2023 Patient reported documented as of this encounter (statuses as of 10/08/2023) Medications Medication Sig Dispensed Refills Start Date [...] albuterol 120 mL 5 11/21/2022 Active Ipratropium [place] 0.02 % Inhalation Solution (Atrovent)Indications :Moderate persistent [...] Respimat 2.5 MCG/ACT Inhalation Aerosol Solution (Tiotropium [place] Monohydrate)Indicatio ns:Moderate persistent asthma without complication INHALE [...] Active Zolpidem Tartrate 5 MG Oral Tablet (Ambien)Indications:R estless leg syndrome Take 1 Tablet by mouth at bedtime as needed for Sleep. 30 Tablet 0 09/10/2023 Active Hospital, Clinic, or Other Facility Administered [...] as of this encounter (statuses as of 10/08/2023) Active Problems Problem Noted Date Diagnosed Date [...] rinse after steroid. Test performed by Sameer VISUAL MANAGER CPFT Pleural plaque due to asbestos exposure Restrictive lung disease Overview: In Check dial performed to assess inhaler technique: 12/15/19 Name of inhalers Albuterol Pass: Yes at 60 L/min and Advair Pass: Yes at 60 L/min. Encouraged to to take deep breath, use aero chamber, and rinse after steroid. 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 05/30/2005 [...] as of this encounter (statuses as of 10/08/2023) Immunizations Name Administration Dates Next Due COVID-19 mRNA, LNP-s, No Pre serve, 2-Dose Series ([employer]right[employer]) 12/01/2021,01/16/2021,12/26/2020 COVID-19, LNP-s, No Preserve , Ozzy-sucrose, Ages 12+ ([facility]rightRoll) 12/01/2021 COVID-19, MRNA-LNP, 23-24, P F, 30 MCG/0.3 mL, 12 YRS AND ABOVE, IM ([facility]) 09/18/2023 Covid-19, Mrna, Lnp-s, Pf, B ivalent, 30 Mcg, IM, 12 yrs and above ([employer]right[employer]) 10/09/2022 Pneumococcal Conjugate Vacc, 13 Valent (Prevnar) [...] Contact Info) Description 10/09/2023 11:45 AM EST Immunization/Injection Hematology/Oncology Treatment, [place] [address] [facility] [place] [address] Nurse, Med [address] [place] [address] [place] [address] 10/15/2023 11:00 AM EST Laboratory Laboratory [address] [place] [phone] [address] [place] [address] 10/16/2023 11:15 AM EST Immunization/Injection Hematology/Oncology Treatment, [place] [address] [facility] [place] [address] Nurse, Med [address] [place] [address] [place] [address] 10/18/2023 6:30 AM EST Anticoagulation Pharmacy Call Center [phone] [place] [address] [facility] [address] [facility] [place] [address] 11/04/2023 3:40 PM EST Office Visit Family Medicine [address] [place] [phone] Bell Mcqueen MD [address] [place] [address] [place] [address] 11/05/2023 11:00 AM EST Immunization/Injection [facility] [place] [facility] [address] [facility], Med 200 [facility] [place] [address] 12/31/2023 1:00 PM EST Cardiac Studies Cardiology [address] [place] [address] [facility] [address] [facility] [place] [address] 01/03/2024 10:30 AM EST Imaging Radiology [facility] [address] [facility] [place] [address] 01/08/2024 10:00 AM EST Office Visit Hematology/Oncology [facility] [address] [facility] [place] [address] Ludwig Louis MD [address] [facility] [place] [address] 01/20/2024 8:20 AM EST Office Visit Ophthalmology, [facility] [address] [facility] [place] [address] Pablo Casanova T, DO [address] [place], [place] [address] [address] 04/10/2024 10:40 AM EDT Office Visit Rheumatology [address] [place] [phone] Win Nielsen MD [address] [place] [address] [place] [address] Pending Results Name Type Priority Associated Diagnoses Date /Time CBC WITH WBC DIFFERENTIAL Lab STAT Urothelial carcinoma of bladder (HCC) 10/08/2023 10:16 AM EST TSH WITH FREE T4 IF INDICATED Lab Routine Urothelial carcinoma of bladder (HCC) 10/08/2023 10:16 AM EST CBC Lab STAT Urothelial carcinoma of bladder (HCC) 10/08/2023 10:16 AM EST DIFFERENTIAL, AUTOMATED Lab STAT Urothelial carcinoma of bladder (HCC) 10/08/2023 10:16 AM EST Scheduled Procedures Name Priority Associated Diagnoses Date/Ti me ESOPHAGOGASTRODUODENOSCOPY ( EGD), FLEXIBLE, TRANSORAL, DIAGNOSTIC Recall Stark's esophagus with dysplasia Health Maintenance Due Date Last Done Comments Depression Screening 07/12/2021 07/12/2020 CKD PHOS USE SMARTSET 54112 08/21/2022 10/0 02/2021, 07/12/2020, 03/13/2019, Additional history exists Albumin/Creatinine Ratio 04/22/2024 023, 05/24/2022, 03/26/2022, Additional history exists TSH 08/20/2024 08/20/2023, 0812/2022, 04/22/2023, Additional history exists CKD HGB USE SMARTSET 07294 10/01/202410/01, 10/01/2023, 09/24/2023, Additional history exists Stark's Esophagus Surveilance 02/26/2025 02/26/2022, 07/04/2021, 01/31/2021, Additional history exists DXA Scan 07/05/2025 07/05/2023, 10/19, 11/04/2018, Additional history exists DTaP,Tdap,and Td Vaccines (2 - Td or Tdap) 08/19/2027 08/19/2017, 08/20/2008 Pneumococcal Vaccine: 65+ Years Completed 06/23/2015, 05/14/2013, 04/18/2004 Zoster Vaccines Completed 12/02/2020, 08/15/2020 VITAMIN D LEVEL ONCE IN A LIFETIME-USE SMARTSET# [id number] Completed 04/22/2023, 08/28/2021, 07/14/2015 Influenza Vaccine (FLU [...] this encounter Medical Devices Implanted Type Area Skip Miner Blasting Device Identifier Shelf Expiration Date Model / Serial / Lot Power Port 8fr Sngl Lumen Plas - [id number] Implanted:Qty: 1 on 02/22/2022 at [facility] : PERIPHERAL VASCULAR [id number] 02/15/2023 [id number] / / [id number] documented as of this encounter Visit Diagnoses Diagnosis Urothelial carcinoma of bladder (HCC) documented in this encounter Advance Directives Latest Code Status on File Code Status Date Activated Date Inactivated Comments Full Code 09/03/2007 7:29 AM 09/03/2007 4:02 PM Care Teams Tracer Bullet Charging Machine Operator Relationship Specialty Start Date End Date Juancho Romero MD [address] [place] [address] [place] [address] PCP - General Family Medicine 12/27/16 documented as of this encounter
--- OUTSIDE RECORDS SUMMARY | 2024-01-23 21:16 | External Medical Summary | Summary of Care ---
Author Name Unknown Organization [facility] Address [address] [place] [address] Phone [phone] Care Team Providers Care Casting Machine Set Up Operator Name Role Phone Juancho Romero MD Primary Care Provider [phone] Reason for Referral * Precert (Within 10 days (routine)) - Authorized Specialty Diagnoses / Procedures Referred By Contjocelyne t Referred To Contact Radiology Diagnoses Carcinoma of bladder (HCC) Procedures CT CHEST/ABDOMEN/PELVIS WO IV CONTRAST WO ORAL CONTRAST Ree Rodriguez CRNP [address] [place] [address] Referral ID Status Reason Start Date Expiration Date V isits Requested Visits Authorized [id number] Authorized Precert 09/23/2023 03/21/2024 999 999 Reason for Visit * Reason Comments Follow Up 3wk Encounter Details Date Type Department Care Team (Late st Contact Info) Description 09/23/2023 9:00 AM EST Office Visit Hematology/Oncology [facility] [place] [facility] [address] Ree Rodriguez CRNP [address] [place] [address] Carcinoma of bladder (HCC)*; Chronic kidney disease, stage 3a (HCC); Iron deficiency anemia, unspecified iron deficiency anemia type Allergies Active Allergy Reactions Criticality Noted Date Comments Penicillins Other (Please comment),Rash High Eyes swell Pollen 05/03/2022 Wound Dressing Adhesive Rash 05/02/2023 Patient reported documented as of this encounter (statuses as of 10/14/2023) Medications Medication Sig Dispensed Refills Start Date [...] Sulfate (PROAIR HFA) 108 (90 Base) MCG/ACT AERSIndications:Mode rate persistent asthma with exacerbation Inhale 2 Puffs by mouth every 4 hours as needed for Wheezing. 1 Inhaler 3 10/20/2019 Active Sucralfate 1 GM/10ML Oral Suspension (Carafate) Take 10 mL by mouth 4 times a day. 1260 mL 0 11/30/2020 Active Vitamin B12 500 MCG Oral TabletIndications:Ba rrett's esophagus determined by endoscopy 2 tabs daily [...] Sulfate (2.5 MG/3ML) 0.083% Inhalation Nebulization Solution (Proventil)Indicatio ns:Moderate persistent asthma without complication Inhale 1 Vial via nebulizer every 6 hours as needed for Wheezing. Mix with albuterol 120 mL 5 11/21/2022 Active Ipratropium [place] 0.02 % Inhalation Solution (Atrovent)Indication s:Moderate persistent asthma without complication Inhale 2.5 mL via nebulizer in the morning and 2.5 mL at noon and 2.5 mL in the evening and 2.5 mL before bedtime. Mix with albuterol solution. 75 mL 12 11/21/2022 Active predniSONE 5 MG Oral Tablet (Deltasone) TAKE 1 TABLET BY MOUTH EVERY DAY 90 Tablet 3 12/18/2022 Active Esomeprazole Magnesium 40 MG Oral Capsule Delayed ReleaseIndications:B arrett's esophagus determined by endoscopy TAKE 1 CAPSULE BY MOUTH TWICE A DAY 180 Capsule 1 2023 Active traMADol HCl 50 MG Oral Tablet (Ultram)Indications: Spinal stenosis of lumbar region without neurogenic claudication Take 1 Tablet by mouth every 6 hours as needed for Pain, Severe. 60 Tablet 0 04/08/2023 Active Ferrous Sulfate 325 (65 Fe) MG Oral Tablet (Feosol)Indications: Iron deficiency anemia secondary to blood loss (chronic) TAKE ONE TABLET BY MOUTH WITH FOOD DAILY 90 Tablet 3 04/18/2023 Active Spiriva Respimat 2.5 MCG/ACT Inhalation Aerosol Solution (Tiotropium [place] Monohydrate)Indicati ons:Moderate persistent asthma without complication INHALE 2 PUFFS BY MOUTH EVERY DAY 12 g 3 04/30/2023 Active Furosemide 40 MG Oral Tablet (Lasix)Indications:A cute on chronic diastolic congestive heart failure (HCC) Take one tablet three times per week and as directed for weight gain 60 Tablet 3 05/08/2023 Active Rosuvastatin Calcium 10 MG Oral Tablet (Crestor) TAKE 1 TABLET BY MOUTH EVERY DAY 90 Tablet 1 05/27/2023 Active Warfarin Sodium 5 MG Oral Tablet (Coumadin)Indication s:Pulmonary embolism and infarction (HCC) Take 0.5-1 Tablets by mouth every evening. 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 45 Tablet 3 08/14/2023 Active Levothyroxine Sodium 125 MCG Oral Tablet (Levoxyl)Indications :Carcinoma of bladder (HCC) TAKE 1 TAB BY MOUTH DAILY FIRST THING IN THE MORNING AT LEAST 30 MIN PRIOR TO BREAKFAST/OTHER MEDS 90 Tablet 0 08/26/2023 Active Pramipexole Dihydrochloride 1 MG Oral Tablet (Mirapex)Indications :Restless leg syndrome TAKE 1 TABLET BY MOUTH EVERYDAY AT BEDTIME 90 Tablet 2 11/29/2022 10/11/20 Discontinu ed(Patient preference /discontin uation) HYDROcodone Bit-Homatrop MBr 5-1.5 MG/5ML Oral Solution (Hycodan)Indications :Bronchitis, complicated Take 5 mL by mouth every 6 hours as needed for Cough. 120 mL 0 04/08/2023 10/11/20 Discontinu ed(Patient preference /discontin uation) Risedronate Sodium 150 MG Oral Tablet (Actonel) TAKE 1 TABLET BY MOUTH EVERY 30 DAYS. 3 Tablet 3 04/18/2023 10/11/20 Discontinu ed(Patient preference /discontin uation) Zolpidem Tartrate 5 MG Oral Tablet (Ambien)Indications: Restless leg syndrome Take 1 Tablet by mouth at bedtime as needed for Sleep. 30 Tablet 0 09/10/2023 10/07/20 Discontinu ed(Refill) Hospital, Clinic, or Other Facility Administered Medication [...] as of this encounter (statuses as of 10/14/2023) Active Problems Problem Noted Date Diagnosed Date [...] rinse after steroid. Test performed by [facility] INPATIENT AUDITOR CPFT Pleural plaque due to asbestos exposure Restrictive lung disease Overview: In Check dial performed to assess inhaler technique: 12/15/19 Name of inhalers Albuterol Pass: Yes at 60 L/min and Advair Pass: Yes at 60 L/min. Encouraged to to take deep breath, use aero chamber, and rinse after steroid. 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 Overview: [place] C0-M6 documented as of this encounter (statuses as of 10/14/2023) Resolved Problems Problem Noted Date Diagnosed Date [...] as of this encounter (statuses as of 10/14/2023) Immunizations Name Administration Dates Next Due COVID-19 mRNA, LNP-s, No Pre serve, 2-Dose Series ([employer]) 12/01/2021,01/16/2021,12/26/2020 COVID-19, LNP-s, No Preserve , Ozzy-sucrose, Ages 12+ ([employer]) 12/01/2021 COVID-19, MRNA-LNP, 23-24, P F, 30 MCG/0.3 mL, 12 YRS AND ABOVE, IM ([employer]-Comirnat) 09/18/2023 Covid-19, Mrna, Lnp-s, Pf, B ivalent, 30 Mcg, IM, 12 yrs and above ([employer]) 10/09/2022 Pneumococcal Conjugate Vacc, 13 Valent (Prevnar) 06/23/2015 Pneumococcal Polysaccharide PPV23 (Pneumovax) 05/14/2013,04/18/2004 SEASONAL INFLUENZA, PF, 6 M & Above, [...] Sign Reading Time Taken Comments Blood Pressure 103/60 09/23/2023 9:00 AM EST Pulse 80 09/23/2023 9:00 AM EST Temperature - - Respiratory Rate 16 09/23/2023 9:00 AM EST Oxygen Saturation 95% 09/23/2023 9:00 AM EST Inhaled Oxygen Concentration - - Weight 63.3 kg (139 lb 9.6 oz) 09/23/2023 9:00 A M EST Height - - Body Mass Index 24.73 09/19/2023 10:34 AM EDT documented in this encounter Progress Notes * Ree Rodriguez CRNP - 09/23/2023 9:00 AM EST Images from the original note were not included. Hematology/Oncology Outpatient Clinic note [facility] [address] [facility] [place] [address] [place], [place] [address] Name: Patrick Robles Date: 09/22/2023 CHIEF COMPLAINT: Patrick Robles is a 88 year old male patient of Dr. Munroe Heriberto here today for f/u visit today. From Patient chart confirmed with patient. HEMATOLOGY/ONCOLOGY DIAGNOSIS: Recurrent Urothelial carcinoma of bladder Anemia of chronic kidney disease Cancer Staging [id number] DATE OF DIAGNOSIS: 05/29/21 TREATMENT HISTORY: Low does gemcitabine concurrent with radiation therapy. Received last dose of gemcitabine on 10/03/2021 Post-treatment TURBT in 12/2021 Keytruda 400 mg IV every six weeks, received 1st dose on 03/02/2022. - Discontinued 04/23/23 d/t concerns for possible myocarditis. CURRENT TREATMENT: Retacrit 40,000 IU every week PRN Hgb <11 ONCOLOGY HISTORY: Patient with a past medical history significant for COPD, GERD, CKD paroxysmal supraventricular tachycardia, history of pulmonary embolism, Stark's esophagus, partial colectomy (for tubovillous adenoma), mitral valve repair, aortic valve replacement, hernia repair, total left knee replacement and pacemaker placement. Patient was evaluated at [facility] ER on 04/11/2021 complaining of hematuria. ER records reviewed. Patient was afebrile WBCs of 5.38 and creatinine of 1.24. Urinalysis of 04/11/2021 noted 3+ blood, 1+ leukocytes, 10-30 WBCs, greater than 30 RBCs and was negative for nitrite and bacteria. CT abdomen/pelvisof 04/11/2021 noted a 2 mm nonobstructing calculus is noted in the left kidney and at least 2 nonobstructing right renal calculi which measure up to 4 mm. The unenhanced kidneys demonstrate mild cortical atrophy and are and without hydronephrosis and no evidence of contour deforming renal mass lesion is noted. The bladder wall is thickened and trabeculated indicating chronic outlet obstruction. A 2.1 cm soft tissue lesion is suspected along the posterior right wall of the [...] immunotherapy. Pt had cystoscopy on 04/04/22 at [facility] Urology w/ Dr. Erlin Hogue: Last cystoscopy was done on 07/04/2022 which revealed no sign of mass lesion tumor or other areas of concern. Multiple areas of scarring throughout the bladder with no masses or tumors. Interval History: He was treated with Keytruda with excellent response. He received Keytruda over one year. Received last dose on 04/23/2023. There was a question of myocarditis and on the recommendation of Cardiology, Keytruda was discontinued. Last cystoscopy was done on 05/27/2023 and it was negative. Discussed with the patient and in detail about the diagnosis and prognosis and reviewed all the available blood test and echocardiogram reports with them. Because of the question of myocarditis,Keytruda can not be resumed and it will be discontinued permanently. He is scheduled for the repeatcystoscopy in September 2023. Will continue to monitor the patient clinically. HISTORY OF PRESENT ILLNESS: Patrick Robles is a 88 year old male with a history as outlined above. Currently here for f/u visit today. Patient feeling well today. No complaints or concerns verbalized. Does have a little fluid retention but not taking the diuretic as he is supposed to. Denies significant SOB or fatigue. Slight increase in weight today. Taking ferrous sulfate one tablet daily. Denies any further dizziness since PT appointment. 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 Admitted [facility] EP study with ablation by Dr Gallardo 09/02/07 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 [place] C0-M6 Benign neoplasm of colon 03/09/2002 Benign [...] I impaired relaxation Long-segment Stark's esophagus 07/28/2020 [place] C0-M5 Malignant neoplasm of prostate (HCC) 09/23/2008 [place] grade 3 Malignant neoplasm of sigmoid colon (HCC) [address] ham at [place] Moderate persistent asthma without complication Paroxysmal SVT (supraventricular tachycardia) 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 Dillard ARTHROPLASTY KNEE TOTAL Left 05/09/2017 Dr Bautista [facility] BIOPSY OF PROSTATE 09/23/2008 Dr Goodwin [...] DIAGNOSTIC (RECTUM) 06/02/2015 TA polyp, referred to surgery/[facility] COLONOSCOPY, DIAGNOSTIC (RECTUM) 06/09/2018 normal/[facility] COLONOSCOPY, REMOVE LESION, CAUTERY 09/21/2009 anastomosis [...] 10/25/2021 bladder cancer and obstruction right ureter ECHO (2-D COMPLETE) 03/16/2010 stable with LVEF 60% ECHO, COMPLETE (2D), TRANS-THORACIC N/A 11/18/2016 normal LV size with mild concentric LVH, EF 55-60%, grade II diastolic dysfunction, bioprosthetic aortic valve ECHO, COMPLETE (2D), TRANS-THORACIC 01/26/2020 bioprosthetic aortic valve, EF 60% LVH EGD, FLEXIBLE, DIAGNOSTIC 06/02/2015 mild gastritis/[facility] EGD, FLEXIBLE, DIAGNOSTIC 06/09/2018 Barretts, hiatal hernia, gastric polyp, repeat 1 yr/[facility] EGD, FLEXIBLE, DIAGNOSTIC 07/07/2019 Barretts / [facility] EGD, FLEXIBLE, DIAGNOSTIC N/A 12/01/2019 ESOPHAGOGASTRODUODENOSCOPY (EGD), FLEXIBLE, TRANSORAL, DIAGNOSTIC performed by Domingo Garcia DO at ENDOSCOPY [facility] EGD, FLEXIBLE, DIAGNOSTIC N/A 03/14/2020 Partially treated Stark's stage C0-M9 per [place] Criteria Multiple gastric polyps, performed by Domingo Garcia DO at ENDOSCOPY [facility] EGD, FLEXIBLE, DIAGNOSTIC N/A 05/25/2020 6 cm [place] C0-M6 Barretts lower esophagus, with radiofrequency ablation, performed by Domingo Garcia DO at ENDOSCOPY [facility] EGD, FLEXIBLE, DIAGNOSTIC N/A 07/28/2020 long segment Stark's [place] C0-M5, with nodlule at 31 cm, performed by Domingo Garcia DO at ENDOSCOPY [facility] EGD, FLEXIBLE, DIAGNOSTIC N/A 09/28/2020 C0-M1 Barretts, gastric polyps, 3 cm hiatal hernia, performed by Domingo Garcia DO at ENDOSCOPY [facility] EGD, FLEXIBLE, DIAGNOSTIC N/A 11/30/2020 residual Stark's, performed by Domingo Garcia DO at ENDOSCOPY [facility] EGD, FLEXIBLE, DIAGNOSTIC N/A 01/31/2021 residual Tsark's EGD, FLEXIBLE, DIAGNOSTIC N/A 01/31/2021 ESOPHAGOGASTRODUODENOSCOPY (EGD), FLEXIBLE, TRANSORAL, DIAGNOSTIC performed by Domingo Garcia, at ENDOSCOPY [facility] EGD, FLEXIBLE, DIAGNOSTIC N/A 07/04/2021 ESOPHAGOGASTRODUODENOSCOPY (EGD), FLEXIBLE, TRANSORAL, DIAGNOSTIC performed by Domingo Garcia DO at ENDOSCOPY [facility] EGD, FLEXIBLE, DIAGNOSTIC 02/26/2022 short segment Stark's at 31 cm, GE flap Hill Grade IV, 4 cm hiatal hernia EGD, FLEXIBLE, DIAGNOSTIC N/A 02/26/2022 ESOPHAGOGASTRODUODENOSCOPY (EGD), FLEXIBLE, TRANSORAL, DIAGNOSTIC performed by Domingo Garcia DO at ENDOSCOPY [facility] EGD, FLEXIBLE, LESION ABLATION N/A 07/04/2021 2 cm hiatal hernia, Ablation of [place] C0-M1 Stark's, multiple fundic gland polyps ELECTROPHYSIOLOGIC [...] DDD NM BONE SCAN WHOLEBODY 10/06/2008 METs, [facility] NM HEPATOBILIARY SYSTEM WITH PHARMACOLOGIC INTERVENTION N/A 11/20/2016 no cystic duct obstruction PARTIAL REMOVAL OF COLON 04/21/2002 for tubulovillous adenoma, Dr Beasley at [facility] PARTIAL REMOVAL OF COLON 08/08/2015 right colectomy 08/08/2015 dr. de [facility] REMOVE CATARACT, INSERT LENS PROSTH 07/2012 [...] Right is 70-99% with plaque, left <50% Social History Socioeconomic History Marital status: Spouse [...] Narrative Used to spend the winter in [place]. In 2018 they are doing a [employer] cruise for 15 days. Social Determinants of [...] on file Housing Stability: Not on file Review of patient's allergies indicates: Allergen Reactions Penicillins Other (Please comment) and Rash Eyes swell Pollen Wound Dressing Adhesive Rash Patient reported Current Outpatient Medications Medication Sig Dispense Refill [...] Mix with albuterol 120 mL 5 Ipratropium [place] 0.02 % Inhalation Solution (Atrovent) Inhale 2.5 mL via nebulizer in the morning and 2.5 mL at noon and 2.5 mL in the evening and 2.5 mL before bedtime. Mix with albuterol solution. 75 mL 12 Pramipexole Dihydrochloride 1 MG Oral Tablet (Mirapex) TAKE 1 TABLET BY MOUTH EVERYDAY AT BEDTIME 90 Tablet 2 predniSONE 5 MG Oral Tablet (Deltasone) TAKE 1 TABLET BY MOUTH EVERY DAY 90 Tablet 3 Esomeprazole Magnesium 40 MG Oral Capsule Delayed Release TAKE 1 CAPSULE BY MOUTH TWICE A DAY 180 Capsule 1 HYDROcodone Bit-Homatrop MBr 5-1.5 MG/5ML Oral Solution (Hycodan) Take 5 mL by mouth every 6 hours as needed for Cough. 120 mL 0 traMADol HCl 50 MG Oral Tablet (Ultram) Take 1 Tablet by mouth every 6 hours as needed for Pain, Severe. 60 Tablet 0 Ferrous Sulfate 325 (65 Fe) MG Oral Tablet (Feosol) TAKE ONE TABLET BY MOUTH WITH FOOD DAILY 90 Tablet 3 Risedronate Sodium 150 MG Oral Tablet (Actonel) TAKE 1 TABLET BY MOUTH EVERY 30 DAYS. 3 Tablet 3 Spiriva Respimat 2.5 MCG/ACT Inhalation Aerosol Solution (Tiotropium [place] Monohydrate) INHALE 2 PUFFS BY MOUTH EVERY [...] [facility] 90 Tablet 3 Spironolactone 25 [...] as needed for Sleep. 30 Tablet 0 Current Facility-Administered Medications Medication Dose Route Frequency Provider Last Rate Last Admin Albuterol Sulfate (Proventil) (5 MG/ML) 0.5% *conc* inhalation solution 2.5 mg 2.5 mg Nebulizer Gabbie Bradley CRNP Albuterol Sulfate (Proventil) (2.5 MG/3ML) 0.083% inhalation solution 2.5 mg 2.5 mg Nebulizer Gabbie Nieves CRNP 2.5 mg at 09/17/23 1015 REVIEW OF SYSTEMS: See HPI - otherwise negative OBJECTIVE: Filed Vitals: 09/23/23 0900 BP: 103/60 Pulse: 80 Resp: 16 SpO2: 95% Weight: 63.3 kg (139 lb 9.6 oz) Wt Readings from Last 5 Encounters: 09/23/23 63.3 kg (139 lb 9.6 oz) 09/19/23 62.1 kg (137 lb) 09/18/23 62.3 kg (137 lb 6 oz) 09/17/23 62.1 kg (136 lb 14.5 oz) 08/19/23 62.2 kg (137 lb 3.2 oz) PHYSICAL EXAM: ECOG: Performance Status 1 = 80-90% Symptoms but nearly ambulatory General Appearance: No acute distress Lymph Nodes: Normal - No palpable lymph nodes in the neck or supraclavicular areas Lungs/Thorax: Normal - Clear to auscultation Heart: Normal - Regular rate and rhythm, +murmur Extremities: +trace RLE edema Neurologic: Normal - Grossly intact LABS: Component Latest Ref Rng 09/17/2023 WBC 4.00 - 10.80 K/uL 6.71 RBC 4.50 - 5.25 M/uL 3.48 HGB 14.0 - 16.8 g/dL 10.0 (L) HCT 40.0 - 48.4 % 33.3 (L) MCV 82.0 - 99.5 fL 95.7 MCH 27.0 - 34.0 pg 28.7 MCHC 32.0 - 36.0 g/dL 30.0 RDW 11.5 - 15.5 % 16.2 PLT 140 - 400 K/uL 136 (L) MPV 6.6 - 11.1 fL 10.9 Component Latest Ref Rng 08/27/2023 BUN 6 - 20 mg/dL 28 (H) Creatinine 0.6 - 1.2 mg/dL 1.3 (H) Estimated Glomerular Filtration Rate >=60 mL/min 52 (L) Sodium 135 - 146 mmol/L 141 Potassium 3.5 - 5.1 mmol/L 4.6 Chloride 98 - 107 mmol/L 105 CO2 22 - 32 mmol/L 25 Anion Gap 7 - 15 mmol/L 11 Glucose 70 - 120 mg/dL 120 Calcium 8.4 - 10.2 mg/dL 9.3 IMPRESSION/PLAN: Recurrent Urothelial carcinoma of bladder Anemia of chronic kidney disease stage 3a Patient feeling clinically well today and physical exam is unremarkable. Lab results reviewed: Hgb 10 Renal function stable Keytruda has been permanently discontinued d/t concerns for myocarditis. Received over one year of therapy. Last dose received 04/23/23. Now under observation. Continue weekly Retacrit injections PRN for Hgb <11. Continue ferrous sulfate 1 tablet daily and vitamin b12 1,000 mcg daily. Continue to follow with [facility] Urology. Scheduled for cystoscopy this month. Per NCCN guidelines for surveillance of MIBC will place order for CT C/A/P to be completed this month. Continue mediport flush every six weeks. RTC in three months with physician with cbc/diff and cmp JASON Buitrago documented in this encounter Nursing Notes * Venecia Infante CMA - 09/23/2023 9:01 AM EST Patient identifed by name and birthdate Do you have any concerns about pain management for today's visit? No Living Will or Advance Directive for Health Care as noted on the problem list. [facility] is a way you can talk to your provider on line through e-mail. Would you like to sign up? I can activate it for you? ALREADY ACTIVE Filed Vitals: 09/23/23 0900 BP: 103/60 Pulse: 80 Resp: 16 SpO2: 95% Weight: 63.3 kg (139 lb 9.6 oz) Patient was instructed to not get [...] Description 10/15/2023 11:00 AM EST Laboratory Laboratory [address] [place] [phone] [place] [address] 10/16/2023 11:15 AM EST Immunization/Injection Hematology/Oncology Treatment, [place] [address] [place] [address] Nurse, Med [address] [place] [address] 10/18/2023 6:30 AM EST Anticoagulation Pharmacy Call Center [phone] [place] [address] [facility] [address] [place] [address] 11/04/2023 3:40 PM EST Office Visit Family Medicine [address] [place] [phone] Bell Mcqueen MD [address] [place] [address] [place] [address] 11/05/2023 11:00 AM EST Immunization/Injection Hematology/Oncology Treatment, [place] 200 [facility] [place] [address] Nurse, Med [address] [facility] [place] [address] 12/31/2023 1:00 PM EST Cardiac Studies Cardiology [address] [place] [address] [facility] [address] [facility] [place] [address] 01/03/2024 10:30 AM EST Imaging Radiology [facility] [address] [place] [address] 01/08/2024 10:00 AM EST Office Visit Hematology/Oncology [facility] [address] [facility] [place] [address] Ludwig Louis MD [address] [facility] [place] [address] 01/20/2024 8:20 AM EST Office Visit Ophthalmology, [facility] 132 [place] [address] Pablo Casanova T, DO [address] [place] [address] 04/10/2024 10:40 AM EDT Office Visit Rheumatology [address] [place] [phone] Win Nielsen MD [facility] [place] [address] Scheduled Procedures Name Priority Associated Diagnoses Date/Ti me ESOPHAGOGASTRODUODENOSCOPY ( EGD), FLEXIBLE, TRANSORAL, DIAGNOSTIC Recall Stark's esophagus with dysplasia Health Maintenance Due Date Last Done Comments Depression Screening 07/12/2021 07/12/2020 CKD PHOS USE SMARTSET 76516 08/21/2022 100 02/2021, 07/12/2020, 03/13/2019, Additional history exists *BISPHONATE OR OTHER ACCEPTABLE MEDICATION NEEDED FOR OSTEOPOROSIS (REFER TO SMARTSET #1146) 10/14/2023 Albumin/Creatinine Ratio 04/22/2024 023, 05/24/2022, 03/26/2022, Additional history exists CKD HGB USE SMARTSET 58709 10/08/202410/08, 10/08/2023, 10/01/2023, Additional history exists TSH 10/08/2024 10/08/2023, 01/2023, 06/19/2023, Additional history exists Stark's Esophagus Surveilance 02/26/2025 02/26/2022, 07/04/2021, 01/31/2021, Additional history exists DXA Scan 07/05/2025 07/05/2023, 10/19, 11/04/2018, Additional history exists DTaP,Tdap,and Td Vaccines (2 - Td or Tdap) 08/19/2027 08/19/2017, 08/20/2008 Pneumococcal Vaccine: 65+ Years Completed 06/23/2015, 05/14/2013, 04/18/2004 Zoster Vaccines Completed 12/02/2020, 08/15/2020 VITAMIN D LEVEL ONCE IN A LIFETIME-USE SMARTSET# [id number] Completed 04/22/2023, 08/28/2021, 07/14/2015 Influenza Vaccine (FLU [...] this encounter Medical Devices Implanted Type Area [employer]otive Alignment Specialist Device Identifier Shelf Expiration Date Model / Serial / Lot Power Port 8fr Sngl Lumen Plas - [id number] Implanted:Qty: 1 on 02/22/2022 at [facility] : PERIPHERAL VASCULAR [id number] 02/15/2023 [id number] / / [id number] documented as of this encounter Results * CT CHEST/ABDOMEN/PELVIS WO IV CONTRAST WO ORAL CONTRAST (09/25/2023 10:55 AM EST) Anatomical Region Laterality Modality Body, Chest, Abdomen, Pelvis, Cardio Computed Tomography 09/27/2023 2:45 PM EST Impressions 09/27/2023 2:42 PM EST IMPRESSION New right middle lobe 7 mm nodule, nonspecific. A three-month follow-up CT of the chest is suggested. Small right pleural effusion is slightly larger than previously. Cardiomegaly. No definite metastatic disease in the abdomen or pelvis is appreciated. Other stable chronic and incidental findings as above. A request to the Radiology E Commerce Web Developer/HULL BUILDER (Director Safety) was placed 09/27/2023 at 2:42 p.m. in the HULL BUILDER result communication system to facilitate communication of the findings and in compliance to [place] Act 112. Narrative 09/27/2023 2:42 PM EST EXAM EXAM: CT CHEST/ABDOMEN/PELVIS WO IV CONTRAST WO ORAL CONTRAST DATE and TIME: 09/25/2023 - 09/25/2023 10:55 am HISTORY Surveillance recurrent urothelial carcinoma of bladder TECHNIQUE Oral Contrast: Oral contrast was not administered. IV Contrast: No IV contrast was used. CT chest/abdomen/pelvis Some processes may not be seen without contrast COMPARISON 05/30/2023 FINDINGS CHEST: LINES AND DEVICES: Right heart pacing leads. Right upper chest wall MediPort tip is in the right atrium. LUNGS: 7 x 7 mm pulmonary nodule in the right middle lobe image 161 series 14 is new from 12/08/2020 similar pleural based right lower lobe 24 x 11 mm opacity adjacent too an old 7th rib fracture. This may be posttraumatic scarring and/or atelectasis. Continued follow-up is suggested. There a few small scattered calcified granulomas. LARGE AIRWAYS: Pleural calcifications bilaterally consistent with asbestos exposure. PLEURA: Small right pleural effusion is slightly larger than previously. VESSELS: AVR. Mitral annuloplasty. CABG. Mid ascending aorta measures 39 mm diameter. The pulmonary arteries are enlarged suggesting pulmonary arterial hypertension.Atherosclerotic changes in the aorta and coronary arteries. HEART: Cardiomegaly. Left atrial enlargement. No pericardial effusion. MEDIASTINUM AND ESTEPHANIA: Unchanged pre aortic lymph node with short axis measurement 12 mm. CHEST WALL/SOFT TISSUES: Degenerative changes about the shoulders. Old rib fractures on the right 6, 7, 8, 9. There are degenerative changes in the spine. T3 and T4 superior vertebral end-plate mild chronic compressions. BONES: Within normal limits. ABDOMEN/PELVIS: LINES AND DEVICES: None LIVER: Within normal limits. BILE DUCTS: Within normal limits. GALLBLADDER: Small cholelithiasis. No acute inflammatory changes. PANCREAS: Within normal limits. SPLEEN: Within normal limits. ADRENALS: Within normal limits. KIDNEYS/URETERS: Punctate bilateral nonobstructing renal calculi. No hydroureteronephrosis is appreciated. BLADDER: Within normal limits. Limited evaluation without IV contrast. BOWEL: Diverticulosis coli without diverticulitis. Unchanged postoperative appearance with several colonic staple lines, possibly the sequela of left hemicolectomy. Staple lines about the ascending colon may be the sequela of ileocolic anastomosis. Please correlate clinically regarding patient's surgical history. There is no bowel obstruction. There a few colonic diverticula present. LYMPH NODES: No lymphadenopathy. VESSELS: Atherosclerotic changes. Diffuse ectasia of the right common iliac artery, 21 mm. Ectatic left internal iliac artery, 19 mm. REPRODUCTIVE ORGANS: No pelvic mass. PERITONEUM/RETROPERITONEUM: No abscess, ascites, or free air. ABDOMINAL WALL/SOFT TISSUES: Dependent subcutaneous edema. Fat containing right lumbar triangle hernia looks unchanged. Fatty left inguinal hernia. Small fatty right inguinal hernia. 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 There are degenerative changes in the spine. Procedure Note Susy Dave MD - 09/27/2023 EXAM EXAM: CT CHEST/ABDOMEN/PELVIS WO IV CONTRAST WO ORAL CONTRAST DATE and TIME: 09/25/2023 - 09/25/2023 10:55 am HISTORY Surveillance recurrent urothelial carcinoma of bladder TECHNIQUE Oral Contrast: Oral contrast was not administered. IV Contrast: No IV contrast was used. CT chest/abdomen/pelvis Some processes may not be seen without contrast COMPARISON 05/30/2023 FINDINGS CHEST: LINES AND DEVICES: Right heart pacing leads. Right upper chest wallMediPort tip is in the right atrium. LUNGS: 7 x 7 mm pulmonary nodule in the right middle lobe image 161 [id number] is new from 12/08/2020 similar pleural based right lower lobe 24 x 11mm opacity adjacent too an old 7th rib fracture. This may beposttraumatic scarring and/or atelectasis. Continued follow-up issuggested. There a few small scattered calcified granulomas. LARGE AIRWAYS: Pleural calcifications bilaterally consistent with asbestosexposure. PLEURA: Small right pleural effusion is slightly larger than previously. VESSELS: AVR. Mitral annuloplasty. CABG. Mid ascending aorta [id number] mm diameter. The pulmonary arteries are enlarged suggesting pulmonaryarterial hypertension.Atherosclerotic changes in the aorta and coronaryarteries. HEART: Cardiomegaly. Left atrial enlargement. No pericardial effusion. MEDIASTINUM AND ESTEPHANIA: Unchanged pre aortic lymph node with short axismeasurement 12 mm. CHEST WALL/SOFT TISSUES: Degenerative changes about the shoulders. Oldrib fractures on the right 6, 7, 8, 9. There are degenerative changes inthe spine. T3 and T4 superior vertebral end-plate mild chroniccompressions. BONES: Within normal limits. ABDOMEN/PELVIS: LINES AND DEVICES: None LIVER: Within normal limits. BILE DUCTS: Within normal limits. GALLBLADDER: Small cholelithiasis. No acute inflammatory changes. PANCREAS: Within normal limits. SPLEEN: Within normal limits. ADRENALS: Within normal limits. KIDNEYS/URETERS: Punctate bilateral nonobstructing renal calculi. Nohydroureteronephrosis is appreciated. BLADDER: Within normal limits. Limited evaluation without IV contrast. BOWEL: Diverticulosis coli without diverticulitis. Unchangedpostoperative appearance with several colonic staple lines, possibly thesequela of left hemicolectomy. Staple lines about the ascending colon maybe the sequela of ileocolic anastomosis. Please correlate clinicallyregarding patient's surgical history. There is no bowel obstruction.There a few colonic diverticula present. LYMPH NODES: No lymphadenopathy. VESSELS: Atherosclerotic changes. Diffuse ectasia of the right commoniliac artery, 21 mm. Ectatic left internal iliac artery, 19 mm. REPRODUCTIVE ORGANS: No pelvic mass. PERITONEUM/RETROPERITONEUM: No abscess, ascites, or free air. ABDOMINAL WALL/SOFT TISSUES: Dependent subcutaneous edema. Fat containingright lumbar triangle hernia looks unchanged. Fatty left inguinal hernia.Small fatty right inguinal hernia. BONES: Unchanged appearance of the pelvis with cortical and trabecularthickening and multifocal sclerotic densities consistent with Paget'sdisease. There are degenerative changes in the spine. IMPRESSION IMPRESSION New right middle lobe 7 mm nodule, nonspecific. A three-month follow-upCT of the chest is suggested. Small right pleural effusion is slightly larger than previously. Cardiomegaly. No definite metastatic disease in the abdomen or pelvis is appreciated. Other stable chronic and incidental findings as above. A request to the Radiology E Commerce Web Developer/HULL BUILDER (Client ServiceRepresentative) was placed 09/27/2023 at 2:42 p.m. in the HULL BUILDER resultcommunication system to facilitate communication of the findings and incompliance to [place] Act 112. Ree GOMEZ RAD CT documented in this encounter Visit Diagnoses Diagnosis Carcinoma of bladder (HCC)- Primary Malignant neoplasm of bladder, part unspecified Chronic kidney disease, stage 3a (HCC) Iron deficiency anemia, unspecified iron deficiency anemia type Lung nodule- Primary Solitary pulmonary nodule Carcinoma of bladder (HCC) Malignant neoplasm of bladder, part unspecified documented in this encounter Advance Directives Latest Code Status on File Code Status Date Activated Date Inactivated Comments Full Code 09/03/2007 7:29 AM 09/03/2007 4:02 PM Care Teams Casting Machine Set Up Operator Relationship Specialty Start Date End Date Juancho Romero MD [address] [place] [address] [place] [address] PCP - General Family Medicine 12/27/16 documented as of this encounter
--- OUTSIDE RECORDS SUMMARY | 2024-01-23 21:16 | External Medical Summary | Summary of Care ---
Author Name Unknown Organization [facility] Address [address] [place] [address] Phone [phone] Care Team Providers Care Contract Lead Name Role Phone Juancho Romero MD Primary Care Provider [phone] Encounter Details Date Type Department Care Team (Late st Contact Info) Description 10/08/2023 Orders Only Family Medicine [address] [phone] Juancho Romero MD [address] [place] [address] [place] [id number] Allergies Active Allergy Reactions Criticality Noted Date [...] albuterol 120 mL 5 11/21/2022 Active Ipratropium Creole 0.02 % Inhalation Solution (Atrovent)Indications :Moderate persistent [...] Respimat 2.5 MCG/ACT Inhalation Aerosol Solution (Tiotropium Creole Monohydrate)Indicatio ns:Moderate persistent asthma without complication INHALE 2 PUFFS BY MOUTH EVERY DAY 12 g 3 04/30/2023 Active Furosemide 40 MG Oral Tablet (Lasix)Indications:Ac anvik on chronic diastolic congestive heart failure (HCC) [...] evening. Or take as instructed by the [facility] 90 Tablet 3 08/09/2023 [...] rinse after steroid. Test performed by Sameer CATERING SOUS CHEF CPFT Pleural plaque due to asbestos exposure Restrictive lung disease Overview: In Check dial performed to assess inhaler technique: 12/15/19 Name of inhalers Albuterol Pass: Yes at 60 L/min and Advair Pass: Yes at 60 L/min. Encouraged to to take deep breath, use aero chamber, and rinse after steroid. Test performed by Sameer CATERING SOUS CHEF CPFT Hx of pulmonary embolus 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 Overview: [place] C0-M6 documented as of this encounter (statuses [...] Malignant neoplasm of prostate 09/23/2008 03/27/2018 Overview: [place] grade 3 Atrial flutter 09/02/2007 10/16/2007 Herpes [...] mRNA, LNP-s, No Pre serve, 2-Dose Series ([employer]) 12/01/2021,01/16/2021,12/26/2020 COVID-19, LNP-s, No Preserve , Ozzy-sucrose, Ages 12+ ([employer]) 12/01/2021 COVID-19, MRNA-LNP, 23-24, P F, 30 MCG/0.3 mL, 12 YRS AND ABOVE, IM ([facility]) 09/18/2023 Covid-19, Mrna, Lnp-s, Pf, B ivalent, 30 Mcg, IM, 12 yrs and above ([employer]) 10/09/2022 Pneumococcal Conjugate Vacc, 13 Valent (Prevnar) [...] 10/09/2023 11:45 AM EST Immunization/Injection Hematology/Oncology Treatment, [address] [place] [address] Nurse, Med [address] [place] [address] [place] [address] 10/15/2023 11:00 AM EST Laboratory Laboratory [address] [place] [phone] [address] [place] [address] 10/16/2023 11:15 AM EST Immunization/Injection Hematology/Oncology Treatment, [place] [address] [facility] [place] [address] Nurse, Med 4 [address] [facility] [place] [address] 10/18/2023 6:30 AM EST Anticoagulation Pharmacy Call Center WB [phone] Public [place] [address] [facility] 58 60 [facility] [place] [address] 11/04/2023 3:40 PM EST Office Visit Family Medicine [address] [place] [phone] Bell Mcqueen MD [address] [place] [address] [place] [address] 11/05/2023 11:00 AM EST Immunization/Injection Hematology[facility]Oncology [facility], [place] [facility] [address] [facility], Med [address] [facility] [place] [address] 12/31/2023 1:00 PM EST Cardiac Studies Cardiology [address] [place] [address] [facility] [address] [facility] [place] [address] 01/03/2024 10:30 AM EST Imaging Radiology [address] [facility] [address] 01/08/2024 10:00 AM EST Office Visit Hematology/Oncology [facility] [address] [facility] [place] [address] Ludwig Louis MD [address] [facility] [place] [address] 01/20/2024 8:20 AM EST Office Visit Ophthalmology, [facility] [address] [facility] [place] [address] Pablo Casanova T, DO 16 [facility] [place] [address] 04/10/2024 10:40 AM EDT Office Visit Rheumatology [address] [place] [phone] Win Nielsen MD [address] [place] [address] [place] [address] Scheduled Procedures Name Priority Associated Diagnoses Date/Ti me ESOPHAGOGASTRODUODENOSCOPY ( EGD), FLEXIBLE, TRANSORAL, DIAGNOSTIC Recall Stark's esophagus with dysplasia Health Maintenance Due Date Last Done Comments Depression Screening 07/12/2021 07/12/2020 CKD PHOS USE SMARTSET 55970 08/21/20220 02/2021, 07/12/2020, 03/13/2019, Additional history exists Albumin/Creatinine Ratio 04/22/2024 023, 05/24/2022, 03/26/2022, Additional history exists TSH 08/20/2024 08/20/2023, 12/2022, 04/22/2023, Additional history exists CKD HGB USE SMARTSET 16455 10/01/202410/01, 10/01/2023, 09/24/2023, Additional history exists Stark's Esophagus Surveilance 02/26/2025 02/26/2022, 07/04/2021, 01/31/2021, Additional history exists DXA Scan 07/05/2025 07/05/2023, 10/19, 11/04/2018, Additional history exists DTaP,Tdap,and Td Vaccines (2 - Td or Tdap) 08/19/2027 08/19/2017, 08/20/2008 Pneumococcal Vaccine: 65+ Years Completed 06/23/2015, 05/14/2013, 04/18/2004 Zoster Vaccines Completed 12/02/2020, 08/15/2020 VITAMIN D LEVEL ONCE IN A LIFETIME-USE SMARTSET# [id number] Completed 04/22/2023, 08/28/2021, 07/14/2015 Influenza Vaccine (FLU [...] this encounter Medical Devices Implanted Type Area [employer] Device Identifier Shelf Expiration Date Model / Serial / Lot Power Port 8fr Sngl Lumen Plas - [id number] Implanted:Qty: 1 on 02/22/2022 at [facility] : PERIPHERAL VASCULAR [id number] 02/15/2023 [id number] / / [id number] documented as of this encounter Procedures Procedure Name Priority Date/Time Associated Diagnosis Comments XR CHEST 2 VIEWS Routine 10/07/2023 documented in this encounter Results * XR CHEST 2 VIEWS (10/07/2023) Anatomical Region Laterality Modality Chest Other 10/07/2023 Stephanie Dumont PA-C RADIOLOGY (RAD GEN ERAL) documented in this encounter Advance Directives Latest Code Status on File Code Status Date Activated Date Inactivated Comments Full Code 09/03/2007 7:29 AM 09/03/2007 4:02 PM Care Teams Contract Lead Relationship Specialty Start Date End Date Juancho Romero MD [address] [place] [address] [place] [phone] PCP - General Family Medicine 12/27/16 documented as of this encounter
--- OUTSIDE RECORDS SUMMARY | 2024-01-23 21:16 | External Medical Summary | Summary of Care ---
Author Name Unknown Organization [facility] Address [address] [place] [address] Phone [phone] Care Team Providers Care Grocery Worker Name Role Phone Juancho Romero MD Primary Care Provider Reason for Visit * Reason Comments Acute Pt c/o cough x 12 da ys, second round of mucinex, breathing treatments, went to [facility] last week and they said his lungs sounded clear but he hasn't gotten any better. Encounter Details Date Type Department Care Team (Late st Contact Info) Description 10/11/2023 4:40 PM EST Office Visit Family Medicine [address] [phone] Bell Mcqueen MD [address] [place] [address] [place] [address] Pneumonia of right lower lobe due to infectious organism* Allergies Active Allergy Reactions Criticality Noted Date Comments Penicillins Other (Please comment),Rash High Eyes swell Pollen 05/03/2022 Wound Dressing Adhesive Rash 05/02/2023 Patient reported documented as of this encounter (statuses as of 10/11/2023) Medications Medication Sig Dispensed Refills Start Date [...] albuterol 120 mL 5 11/21/2022 Active Ipratropium Newton 0.02 % Inhalation Solution (Atrovent)Indication s:Moderate persistent [...] Respimat 2.5 MCG/ACT Inhalation Aerosol Solution (Tiotropium Newton Monohydrate)Indicati ons:Moderate persistent asthma without complication INHALE [...] Active Zolpidem Tartrate 5 MG Oral Tablet (Ambien)Indications: Restless leg syndrome Take 1 Tablet by mouth at bedtime as needed for Sleep. 30 Tablet 0 10/09/2023 Active levoFLOXacin 750 MG Oral Tablet (Levaquin)Indication s:Pneumonia of right lower lobe due to infectious organism Take 1 Tablet by mouth every other day for 3 doses. until gone. 3 Tablet 0 10/11/2023 10/16/20 23 Active Pramipexole Dihydrochloride 1 MG Oral Tablet [...] 04/18/2023 10/11/20 Discontinu ed(Patient preference /discontin uation) Hospital, Clinic, or Other Facility Administered Medication [...] as of this encounter (statuses as of 10/11/2023) Active Problems Problem Noted Date Diagnosed Date [...] rinse after steroid. Test performed by Sameer SENIOR SAS DEVELOPER CPFT Pleural plaque due to asbestos exposure Restrictive lung disease Overview: In Check dial performed to assess inhaler technique: 12/15/19 Name of inhalers Albuterol Pass: Yes at 60 L/min and Advair Pass: Yes at 60 L/min. Encouraged to to take deep breath, use aero chamber, and rinse after steroid. 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 Overview: [place] C0-M6 documented as of this encounter (statuses as of 10/11/2023) Resolved Problems Problem Noted Date Diagnosed Date [...] as of this encounter (statuses as of 10/11/2023) Immunizations Name Administration Dates Next Due COVID-19 mRNA, LNP-s, No Pre serve, 2-Dose Series (Undesk) 12/01/2021,01/16/2021,12/26/2020 COVID-19, LNP-s, No Preserve , Ozzy-sucrose, Ages 12+ (Undesk) 12/01/2021 COVID-19, MRNA-LNP, 23-24, P F, 30 MCG/0.3 mL, 12 YRS AND ABOVE, IM (Tuneenergy-Comirnaty) 09/18/2023 Covid-19, Mrna, Lnp-s, Pf, B ivalent, 30 Mcg, IM, 12 yrs and above (Undesk) 10/09/2022 Pneumococcal Conjugate Vacc, 13 Valent (Prevnar) [...] Sign Reading Time Taken Comments Blood Pressure 122/58 10/11/2023 4:37 PM EST Pulse 96 10/11/2023 4:37 PM EST Temperature 36.4 C (97.5 F) 10/11/2023 4:37 PM ES T Respiratory Rate - - Oxygen Saturation 96% 10/11/2023 4:37 PM EST Inhaled Oxygen Concentration - - Weight - - Height - - Body Mass Index - - documented in this encounter Progress Notes * Bell Mcqueen MD - 10/11/2023 4:36 PM EST Subjective: HPI: Patrick Robles is a 88 year old male with hx of AVR, MVR, afib on coumadin, Tachy-kurt syndrome s/psingle chamber pacemaker, HTN, HLD, b/l carotid aa stenosis, Hypothyroidism, Recurrent Urothelial carcinoma of the bladder, Asthma, CKD III, chronic anemia, on chronic prednisonepre seen for Pt is here with For 2 weeks pt is having chest congestion, sinus congestion, cough, rhinorrhea - worse in the morning - denied any fever - [facility] +fatigue CXR from 10/07: No acute process Patient Active Problem List Diagnosis Code History [...] E03.9 Encounter for central line care Z45.2 Current Outpatient Medications Medication Sig Dispense Refill [...] Mix with albuterol 120 mL 5 Ipratropium Newton 0.02 % Inhalation Solution (Atrovent) Inhale 2.5 [...] Respimat 2.5 MCG/ACT Inhalation Aerosol Solution (Tiotropium Newton Monohydrate) INHALE 2 PUFFS BY MOUTH EVERY [...] [facility] 90 Tablet 3 Spironolactone [...] 3 doses. until gone. 3 Tablet 0 Pramipexole Dihydrochloride 1 MG Oral Tablet (Mirapex) TAKE 1 TABLET BY MOUTH EVERYDAY AT BEDTIME (Patient not taking: Reported on 10/11/2023) 90 Tablet 2 HYDROcodone Bit-Homatrop MBr 5-1.5 MG/5ML Oral Solution (Hycodan) Take 5 mL by mouth every 6 hours as needed for Cough. (Patient not taking: Reported on 10/11/2023) 120 mL 0 Risedronate Sodium 150 MG Oral Tablet (Actonel) TAKE 1 TABLET BY MOUTH EVERY 30 DAYS. (Patient not taking: Reported on 10/11/2023) 3 Tablet 3 Current Facility-Administered Medications Medication Dose Route Frequency Provider Last Rate Last Admin Albuterol Sulfate (Proventil) (5 MG/ML) 0.5% *conc* inhalation solution 2.5 mg 2.5 mg Nebulizer Gabbie Bradley CRNP Albuterol Sulfate (Proventil) (2.5 MG/3ML) 0.083% inhalation solution 2.5 mg 2.5 mg Nebulizer Gabbie Nieves CRNP 2.5 mg at 09/17/23 1015 Past Medical History: Diagnosis Date Acquired hypothyroidism Allergic rhinitis Anal fissure 05/2005 treated at [place] Anemia of chronic disease 04/15/2020 Aortic valve disorder Asbestosis (HCC) Asbestosis (HCC) Asthma Atrial fibrillation (HCC) 11/16/2004 Atrial flutter (HCC) 01/2004 early post cardiac surgery 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 Admitted [facility] EP study with ablation by Dr Gallardo 09/02/07 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 Brew[place] C0-M6 Benign neoplasm of colon 03/09/2002 Benign [...] I impaired relaxation Long-segment Stark's esophagus 07/28/2020 [place] C0-M5 Malignant neoplasm of prostate (HCC) 09/23/2008 [place] grade 3 Malignant neoplasm of sigmoid colon (HCC) [address] [place] Moderate persistent asthma without complication Paroxysmal SVT (supraventricular tachycardia) 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, 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 Dillard ARTHROPLASTY KNEE TOTAL Left 05/09/2017 Dr Bautista [facility] BIOPSY OF PROSTATE 09/23/2008 Dr Goodwin BIOPSY [...] DIAGNOSTIC (RECTUM) 06/02/2015 TA polyp, referred to surgery/[facility] COLONOSCOPY, DIAGNOSTIC (RECTUM) 06/09/2018 normal/[facility] COLONOSCOPY, REMOVE LESION, CAUTERY 09/21/2009 anastomosis at [...] 60% LVH EGD, FLEXIBLE, DIAGNOSTIC 06/02/2015 mild gastritis/[facility] EGD, FLEXIBLE, DIAGNOSTIC 06/09/2018 [place], hiatal hernia, gastric polyp, repeat 1 yr/[facility] EGD, FLEXIBLE, DIAGNOSTIC 07/07/2019 [place] / [facility] EGD, FLEXIBLE, DIAGNOSTIC N/A 12/01/2019 ESOPHAGOGASTRODUODENOSCOPY (EGD), FLEXIBLE, TRANSORAL, DIAGNOSTIC performed by Domingo Garcia DO at ENDOSCOPY [facility] EGD, FLEXIBLE, DIAGNOSTIC N/A 03/14/2020 Partially treated Stark's stage C0-M9 per [place] Criteria Multiple gastric polyps, performed by Dmoingo Garcia DO at ENDOSCOPY [facility] EGD, FLEXIBLE, DIAGNOSTIC N/A 05/25/2020 6 cm Brewster C0-M6 Bar[place]ts lower esophagus, with radiofrequency ablation, performed by Domingo Garcia DO at ENDOSCOPY [facility] EGD, FLEXIBLE, DIAGNOSTIC N/A 07/28/2020 long segment Stark's [place] C0-M5, with nodlule at 31 cm, performed by Domingo Garcia DO at ENDOSCOPY [facility] EGD, FLEXIBLE, DIAGNOSTIC N/A 09/28/2020 C0-M1 [place]ts, gastric polyps, 3 cm hiatal hernia, performed by Domingo Garcia DO at ENDOSCOPY [facility] EGD, FLEXIBLE, DIAGNOSTIC N/A 11/30/2020 residual Stark's, performed by Domingo Garcia DO at ENDOSCOPY [facility] EGD, FLEXIBLE, DIAGNOSTIC N/A 01/31/2021 residual Stark's EGD, FLEXIBLE, DIAGNOSTIC N/A 01/31/2021 ESOPHAGOGASTRODUODENOSCOPY (EGD), FLEXIBLE, TRANSORAL, DIAGNOSTIC performed by Domingo Garcia DO at ENDOSCOPY [facility] EGD, FLEXIBLE, DIAGNOSTIC N/A 07/04/2021 ESOPHAGOGASTRODUODENOSCOPY (EGD), FLEXIBLE, TRANSORAL, DIAGNOSTIC performed by Domingo Garcia DO at ENDOSCOPY [facility] EGD, FLEXIBLE, DIAGNOSTIC 02/26/2022 short segment Stark's at 31 cm, GE flap Hill Grade IV, 4 cm hiatal hernia EGD, FLEXIBLE, DIAGNOSTIC N/A 02/26/2022 ESOPHAGOGASTRODUODENOSCOPY (EGD), FLEXIBLE, TRANSORAL, DIAGNOSTIC performed by Domingo Garcia DO at ENDOSCOPY [facility] EGD, FLEXIBLE, LESION ABLATION N/A 07/04/2021 2 cm hiatal hernia, Ablation of [place] C0-M1 Stark's, multiple fundic gland polyps ELECTROPHYSIOLOGIC [...] DDD NM BONE SCAN WHOLEBODY 10/06/2008 METs, [facility] NM HEPATOBILIARY SYSTEM WITH PHARMACOLOGIC INTERVENTION N/A 11/20/2016 no cystic duct obstruction PARTIAL REMOVAL OF COLON 04/21/2002 for tubulovillous adenoma, Dr Beasley at [facility] PARTIAL REMOVAL OF COLON 08/08/2015 right colectomy 08/08/2015 dr. [facility] REMOVE CATARACT, INSERT LENS PROSTH [...] Mother Other (cataract) Mother Heart Disorder Father [place] in his 50's Diabetes Brother Cancer Brother [...] Pod No ROS: -Per HPI OBJECTIVE: BP 122/58 | Pulse 96 | Temp 36.4 C (97.5 F) | SpO2 96% PHYSICAL EXAM: Lungs:slightly decreased BS on the R lower lobe ASSESSMENT/PLAN: CrCl of 36 Levaquin given due to underlying lung disorder Pneumonia of right lower lobe due to infectious organism (Primary) - levoFLOXacin 750 MG Oral Tablet (Levaquin); Take 1 Tablet by mouth every other day for 3 doses. until gone. Bell Mcqueen MD Family medicine, [address] [address] documented in this encounter Plan of Treatment Upcoming Encounters Date Type Department Care Team (Late st Contact Info) Description 10/15/2023 11:00 AM EST Laboratory Laboratory [address] [place] [phone] [address] [place] [address] 10/16/2023 11:15 AM EST Immunization/Injection Hematology[facility]cology [facility] [place] [facility] [address] Nurse, Med 4 200 [facility] [place] [address] 10/18/2023 6:30 AM EST Anticoagulation Pharmacy Call Center 58[address] [facility] [place] [address] [facility] 58 60 [facility] [place] [address] 11/04/2023 3:40 PM EST Office Visit Family Medicine [address] [place] [phone] Bell Mcqueen MD [address] [place] [address] [place] [address] 11/05/2023 11:00 AM EST Immunization/Injection Hematology[facility]Oncology Treatment, [place] [facility] [address] Nurse, Med 4 200 [facility] [place] [address] 12/31/2023 1:00 PM EST Cardiac Studies Cardiology [address] [place] [address] [facility] 132 [facility] [place] [address] 01/03/2024 10:30 AM EST Imaging Radiology [facility]st [facility] 132 [facility] [place] [address] 01/08/2024 10:00 AM EST Office Visit Hematology/Oncology [facility] 200 [facility] [place] [address] Ludwig Louis MD 200 [facility] [place] [address] 01/20/2024 8:20 AM EST Office Visit Ophthalmology, [facility] 132 [facility] [place] [address] Pablo Casanova, DO [address] [place] [address] [place] [address] 04/10/2024 10:40 AM EDT Office Visit Rheumatology [address] [place] [phone] Win Nielsen MD [address] [place] [address] [place] [address] Scheduled Procedures Name Priority Associated Diagnoses Date/Ti me ESOPHAGOGASTRODUODENOSCOPY ( EGD), FLEXIBLE, TRANSORAL, DIAGNOSTIC Recall Stark's esophagus with dysplasia Health Maintenance Due Date Last Done Comments Depression Screening 07/12/2021 07/12/2020 CKD PHOS USE SMARTSET 58363 08/21/2022 10/0 02/2021, 07/12/2020, 03/13/2019, Additional history exists Albumin/Creatinine Ratio 04/22/20242 023, 05/24/2022, 03/26/2022, Additional history exists CKD HGB USE SMARTSET 32622 10/08/202410/08, 10/08/2023, 10/01/2023, Additional history exists TSH 10/08/2024 10/08/2023, 100 01/2023, 06/19/2023, Additional history exists Stark's Esophagus Surveilance 02/26/2025 02/26/2022, 07/04/2021, 01/31/2021, Additional history exists DXA Scan 07/05/2025 07/05/2023, 10/19, 11/04/2018, Additional history exists DTaP,Tdap,and Td Vaccines (2 - Td or Tdap) 08/19/2027 08/19/2017, 08/20/2008 Pneumococcal Vaccine: 65+ Years Completed 06/23/2015, 05/14/2013, 04/18/2004 Zoster Vaccines Completed 12/02/2020, 08/15/2020 VITAMIN D LEVEL ONCE IN A LIFETIME-USE SMARTSET# [id number] Completed 04/22/2023, 08/28/2021, 07/14/2015 Influenza Vaccine (FLU [...] this encounter Medical Devices Implanted Type Area Director Outcomes Device Identifier Shelf Expiration Date Model / Serial / Lot Power Port 8fr Sngl Lumen Plas - [id number] Implanted:Qty: 1 on 02/22/2022 at [facility] CR BARD : PERIPHERAL VASCULAR [id number] 02/15/2023 [id number] / / [id number] documented as of this encounter Visit Diagnoses Diagnosis Pneumonia of right lower lobe due to infectious organism- Primary documented in this encounter Advance Directives Latest Code Status on File Code Status Date Activated Date Inactivated Comments Full Code 09/03/2007 7:29 AM 09/03/2007 4:02 PM Care Teams Grocery Worker Relationship Specialty Start Date End Date Juancho Romero MD [address] [place] [address] [place] [address] PCP - General Family Medicine 12/27/16 documented as of this encounter"
--- OUTSIDE RECORDS SUMMARY | 2024-01-23 21:16 | External Medical Summary | Summary of Care ---
Author Name Unknown Organization [facility] Address [address] [place] [address] Phone [phone] Care Team Providers Care Material Planner Name Role Phone Juancho Romero MD Primary Care Provider Reason for Referral * Precert (Within 10 days (routine)) - Pending Review Specialty Diagnoses / Procedures Referred By Aaron t Referred To Contact Radiology Diagnoses Lung nodule Procedures CT CHEST WO CONTRAST Socrates Yao MD [address] [place] [address] Referral ID Status Reason Start Date Expiration Date V isits Requested Visits Authorized [id number] Pending Review 01/09/[phone] Reason for Visit * Precert (Within 10 days (routine)) - Authorized Specialty Diagnoses / Procedures Referred By Contac t Referred To Contact Radiology Diagnoses Carcinoma of bladder (HCC) Procedures CT CHEST/ABDOMEN/PELVIS WO IV CONTRAST WO ORAL CONTRAST Ree Rodriguez CRNP [address] [place] [address] Referral ID Status Reason Start Date Expiration Date V isits Requested Visits Authorized [id number] Authorized Precert 09/23/2023 03/21/[phone] Encounter Details Date Type Department Care Team (Late st Contact Info) Description 09/25/2023 11:00 AM EST Imaging Radiology [facility] 1st [facility] [place] 132 [facility] [place] [address] Lung nodule*; Carcinoma of bladder (HCC) Allergies Active Allergy [...] albuterol 120 mL 5 11/21/2022 Active Ipratropium Lutz 0.02 % Inhalation Solution (Atrovent)Indications :Moderate persistent [...] Respimat 2.5 MCG/ACT Inhalation Aerosol Solution (Tiotropium [place] Monohydrate)Indicatio ns:Moderate persistent asthma without complication INHALE 2 PUFFS BY MOUTH EVERY DAY 12 g 3 04/30/2023 Active Furosemide 40 MG Oral Tablet (Lasix)Indications:[place] on chronic diastolic congestive heart failure (HCC) [...] the [facility] Coumadin [facility] 90 Tablet 3 08/09/2023 Active Spironolactone 25 [...] rinse after steroid. Test performed by Sameer SCRAP WORKER CPFT Pleural plaque due to asbestos exposure Restrictive lung disease Overview: In Check dial performed to assess inhaler technique: 12/15/19 Name of inhalers Albuterol Pass: Yes at 60 L/min and Advair Pass: Yes at 60 L/min. Encouraged to to take deep breath, use aero chamber, and rinse after steroid. 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] 10/09/2023 11:45 AM EST Immunization/Injection Hematology/Oncology Treatment, [place] [address] [place] [address] Nurse, Med [address] [place] [address] 10/15/2023 11:00 AM EST Laboratory Laboratory [address] [place] [phone] [place] [address] 10/16/2023 11:15 AM EST Immunization/Injection Hematology[facility] Treatment, [place] [facility] [address] Nurse, Med 4 200 [facility] [place] [address] 10/18/2023 6:30 AM EST Anticoagulation Pharmacy Call Center [address] [place] [address] [facility] 58 60 [facility] [place] [address] 11/04/2023 3:40 PM EST Office Visit Family Medicine [address] [place] [phone] Bell Mcqueen MD [address] [place] [address] [place] [address] 11/05/2023 11:00 AM EST Immunization/Injection Hematology/Oncology Treatment, [place] 200 [facility] [place] [address] Nurse, Med 4 200 [facility] [place] [address] 12/31/2023 1:00 PM EST Cardiac Studies Cardiology [address] [place] [address] [facility] 132 [facility] [place] [address] 01/03/2024 10:30 AM EST Imaging Radiology [facility] 1st [facility] 132 [facility] [place] [address] 01/08/2024 10:00 AM EST Office Visit Hematology/Oncology [facility] [address] [place] [address] Ludwig Louis MD [address] [place] [address] 01/20/2024 8:20 AM EST Office Visit Ophthalmology, [facility] 132 [facility] [place] [address] Pablo Casanova T, DO [address] [place] [address] 04/10/2024 10:40 AM EDT Office Visit Rheumatology [address] [place] [phone] Win Nielsen MD [address] [place] [address] [place] [address] Scheduled Orders Name Type Priority Associated Diagnoses Orde r Schedule CT CHEST WO CONTRAST Medical Imaging Routine Lung nodule Expected: 01/09/2024, Expires: 11/08/2024 Scheduled Procedures Name Priority Associated Diagnoses Date/Ti me ESOPHAGOGASTRODUODENOSCOPY ( EGD), FLEXIBLE, TRANSORAL, DIAGNOSTIC Recall Stark's esophagus with dysplasia Health Maintenance Due Date Last Done Comments Depression Screening 07/12/2021 07/12/2020 CKD PHOS USE SMARTSET 58306 08/21/2022 100 02/2021, 07/12/2020, 03/13/2019, Additional history exists Albumin/Creatinine Ratio 04/22/2024 023, 05/24/2022, 03/26/2022, Additional history exists CKD HGB USE SMARTSET 64957 10/08/202410/08, 10/08/2023, 10/01/2023, Additional history exists TSH [...] D LEVEL ONCE IN A LIFETIME-USE SMARTSET# [id number] Completed 04/22/2023, 08/28/2021, 07/14/2015 Influenza Vaccine (FLU [...] this encounter Medical Devices Implanted Type Area Supervising Bailiff Device Identifier Shelf Expiration Date Model / Serial / Lot Power Port 8fr Sngl Lumen Plas - [id number] Implanted:Qty: 1 on 02/22/2022 at [facility] CR BARD : PERIPHERAL VASCULAR [id number] 02/15/2023 [id number] / / [id number] documented as of this encounter Procedures Procedure Name Priority Date/Time Associated Diagnosis Comments CT CHEST/ABDOMEN/PELVI S WITHOUT IV CONTRAST WITHOUT ORAL CONTRAST Routine 09/25/2023 10:55 AM EST Carcinoma of bladder (HCC) documented in this encounter Results * CT CHEST/ABDOMEN/PELVIS WO [...] as above. A request to the Radiology Phys Ther/AIR SURVEILLANCE OPERATOR (Key Ringer) was placed 09/27/2023 at 2:42 p.m. in the AIR SURVEILLANCE OPERATOR result communication system to facilitate communication of the findings and in compliance to [place] Act 112. Narrative 09/27/2023 2:42 PM EST [...] in the right middle lobe image 161 [email or web address] is new from 12/08/2020 similar pleural based right lower lobe 24 x 11mm opacity adjacent too an old 7th rib fracture. This may beposttraumatic scarring and/or atelectasis. Continued follow-up issuggested. There a few small scattered calcified granulomas. LARGE AIRWAYS: Pleural calcifications bilaterally consistent with asbestosexposure. PLEURA: Small right pleural effusion is slightly larger than previously. VESSELS: AVR. Mitral annuloplasty. CABG. Mid ascending aorta [id number] mm diameter. The pulmonary arteries are enlarged [...] as above. A request to the Radiology Phys Ther/AIR SURVEILLANCE OPERATOR (Client ServiceRepresentative) was placed 09/27/2023 at 2:42 p.m. in the AIR SURVEILLANCE OPERATOR resultcommunication system to facilitate communication of the findings and incompliance to [place] Act 112. Ree GOMEZ RAD CT documented in this encounter Visit Diagnoses Diagnosis Lung nodule- Primary Solitary pulmonary nodule Carcinoma of bladder (HCC) Malignant neoplasm of bladder, part unspecified documented in this encounter Advance Directives Latest Code Status on File Code Status Date Activated Date Inactivated Comments Full Code 09/03/2007 7:29 AM 09/03/2007 4:02 PM Care Teams Material Planner Relationship Specialty Start Date End Date Juancho Romero MD [address] [place] [address] [place] [id number] PCP - General Family Medicine 12/27/16 documented as of this encounter
--- OUTSIDE RECORDS SUMMARY | 2024-01-23 21:16 | External Medical Summary | Summary of Care ---
Author Name Unknown Organization [facility] Address [address] [place] [address] Phone [phone] Care Team Providers Care Poker Dealer Name Role Phone Juancho Romero MD Primary Care Provider Reason for Visit * Reason Onset Date Comments Medication Refill 10/07/2023 Encounter Details Date Type Department Care Team (Late st Contact Info) Description 10/07/2023 Refill Family Medicine [address] [phone] Juancho Romero MD [address] [place] [address] [place] [id number] Restless leg syndrome Allergies Active Allergy [...] albuterol 120 mL 5 11/21/2022 Active Ipratropium [place] 0.02 % Inhalation Solution (Atrovent)Indication s:Moderate persistent [...] Respimat 2.5 MCG/ACT Inhalation Aerosol Solution (Tiotropium [place] Monohydrate)Indicati ons:Moderate persistent asthma without complication INHALE [...] evening. Or take as instructed by the [facility] 90 Tablet 3 08/09/2023 [...] for Sleep. 30 Tablet 0 10/09/2023 Active Zolpidem Tartrate 5 MG Oral Tablet (Ambien)Indications: Restless leg syndrome Take 1 Tablet by mouth at bedtime as needed for Sleep. 30 Tablet 0 09/10/2023 10/07/20 23 Discontinu ed(Refill) Hospital, Clinic, or Other Facility [...] rinse after steroid. Test performed by Sameer SHEARING SUPERVISOR CPFT Pleural plaque due to asbestos exposure Restrictive lung disease Overview: In Check dial performed to assess inhaler technique: 12/15/19 Name of inhalers Albuterol Pass: Yes at 60 L/min and Advair Pass: Yes at 60 L/min. Encouraged to to take deep breath, use aero chamber, and rinse after steroid. 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 use of ant icoagulant therapy [...] mRNA, LNP-s, No Pre serve, 2-Dose Series ([facility]) 12/01/2021,01/16/2021,12/26/2020 COVID-19, LNP-s, No Preserve , Ozzy-sucrose, Ages 12+ ([facility]gh) 12/01/2021 COVID-19, MRNA-LNP, 23-24, P F, 30 MCG/0.3 mL, 12 YRS AND ABOVE, IM (QED | [employer]Comirnat) 09/18/2023 Covid-19, Mrna, Lnp-s, Pf, B ivalent, 30 Mcg, IM, 12 yrs and above (Plovgh) 10/09/2022 Pneumococcal Conjugate Vacc, 13 Valent (Prevnar) [...] Telephone Encounter - David Hu MD - 10/09/2023 11:13 AM EST Signed Prescriptions: Disp Refills Zolpidem Tartrate 5 MG Oral Tablet (Ambien)30 Tab*0 Sig: Take 1 Tablet by mouth at bedtime as needed for Sleep. Authorizing Provider: DAVID HU * Telephone Encounter - David Castellano [facility] - 10/08/2023 4:40 PM ESTPending Prescriptions: Disp Refills Zolpidem Tartrate 5 MG Oral Tablet (Ambien)30 Tab*0 Sig: Take 1 Tablet by mouth at bedtime as needed for Sleep. Electronically signed by David Castellano [facility] at 10/08/2023 4:40 PM EST * Telephone Encounter - David Castellano [facility] - 10/08/2023 4:38 PM EST I have reviewed the patients controlled substance dispensing history in the Prescription Drug Monitoring Program in compliance with the [facility] regulations before prescribing a controlled substance. PDMP checked on 10/08/2023. Pending Prescriptions: Disp Refills Zolpidem Tartrate 5 MG Oral Tablet (Ambie*30 Tab*0 Sig: Take 1 Tablet by mouth at bedtime as needed for Sleep. Last Visit: 09/18/2023 (in office), 08/28/2022 (telemedicine) Next Visit: 11/04/2023 Date medication was last filled: 09/10/23 Date medication is due for refill: 10/09/23 Pharmacy: [id number] [facility] Is this request for a controlled substance? Yes and Urine Drug Screen Not completed Toxicology results: No results found. However, due to the size of the patient record, not all encounters were searched.Please check Results Review for a complete set of results. Please approve if appropriate. Thank You, David Serrano [facility] Clinical Pharmacist Centralized Clinical Pharmacy Services (CCPS) (formerly Telepharmacy) 10/08/2023, 4:38 PM Electronically signed by David Castellano [facility] at 10/08/2023 4:40 PM EST documented in this encounter Plan of Treatment Upcoming Encounters Date Type Department Care Team ([facility] st Contact Info) Description 10/09/2023 11:45 AM EST Immunization/Injection Hematology/Oncology Treatment, [place] [address] [place] [address] Nurse, Med [address] [place] [id number] 10/15/2023 11:00 AM EST Laboratory Laboratory [address] [place] [phone] [place] [address] 10/16/2023 11:15 AM EST Immunization/Injection Hematology/Oncology Treatment, [place] [address] [facility] [place] [address] Nurse, Med 4 200 [facility] [place] [address] 10/18/2023 6:30 AM EST Anticoagulation Pharmacy Call Center 58[address]60 [facility] [place] [address] [facility], [facility] 58 60 [facility] [place] [address] 11/04/2023 3:40 PM EST Office Visit Family Medicine [address] [place] [phone] Bell Mcqueen MD [address] [place] [address] [place] [address] 11/05/2023 11:00 AM EST Immunization/Injection Hematology/Oncology Treatment, [place] [address] [facility] [place] [address] Nurse, Med 4 200 [facility] [place] [address] 12/31/2023 1:00 PM EST Cardiac Studies Cardiology [address] [place] [address] Og Frazier [facility] [address] [facility] [place] [address] 01/03/2024 10:30 AM EST Imaging Radiology [facility] 1st [facility] [address] [facility] [place] [address] 01/08/2024 10:00 AM EST Office Visit Hematology/Oncology [facility] [address] [place] [address] Ludwig Louis MD [address] [place] [address] 01/20/2024 8:20 AM EST Office Visit Ophthalmology, [facility] [address] [facility] [place] [address] Pablo Casanova, DO [address] [place] [address] 04/10/2024 10:40 AM EDT Office Visit Rheumatology [address] [place] [phone] Win Nielsen MD [address] [facility] [place] [address] Scheduled Procedures Name Priority Associated Diagnoses Date/Ti me ESOPHAGOGASTRODUODENOSCOPY ( EGD), FLEXIBLE, TRANSORAL, DIAGNOSTIC Recall Stark's esophagus with dysplasia Health Maintenance Due Date Last Done Comments Depression Screening 07/12/2021 07/12/2020 CKD PHOS USE SMARTSET 83147 08/21/2022 100 02/2021, 07/12/2020, 03/13/2019, Additional history exists Albumin/Creatinine Ratio 04/22/2024 023, 05/24/2022, 03/26/2022, Additional history exists CKD HGB USE SMARTSET 93465 10/08/202410/08, 10/08/2023, 10/01/2023, Additional history exists TSH 10/08/2024 10/08/2023, 10/0 01/2023, 06/19/2023, Additional history exists Stark's Esophagus Surveilance 02/26/2025 02/26/2022, 07/04/2021, 01/31/2021, Additional history exists DXA Scan 07/05/2025 07/05/2023, 10/19, 11/04/2018, Additional history exists DTaP,Tdap,and Td Vaccines (2 - Td or Tdap) 08/19/2027 08/19/2017, 08/20/2008 Pneumococcal Vaccine: 65+ Years Completed 06/23/2015, 05/14/2013, 04/18/2004 Zoster Vaccines Completed 12/02/2020, 08/15/2020 VITAMIN D LEVEL ONCE IN A LIFETIME-USE SMARTSET# [id number] Completed 04/22/2023, 08/28/2021, 07/14/2015 Influenza Vaccine (FLU [...] this encounter Medical Devices Implanted Type Area Electrician Research Device Identifier Shelf Expiration Date Model / Serial / Lot Power Port 8fr Sngl Lumen Plas - [id number] Implanted:Qty: 1 on 02/22/2022 at [facility] CR BARD : PERIPHERAL VASCULAR [id number] 02/15/2023 [id number] / / [id number] documented as of this encounter Visit Diagnoses Diagnosis Restless leg syndrome Restless legs syndrome (RLS) documented in this encounter Advance Directives Latest Code Status on File Code Status Date Activated Date Inactivated Comments Full Code 09/03/2007 7:29 AM 09/03/2007 4:02 PM Care Teams Poker Dealer Relationship Specialty Start Date End Date Juancho Romero MD [address] [place] [address] [place] [phone] PCP - General Family Medicine 12/27/16 documented as of this encounter"
--- OUTSIDE RECORDS SUMMARY | 2024-01-23 21:16 | External Medical Summary ---
Author Name Unknown Address Unknown Organization K01:[facility]ORY [facility] [place] - [address] [facility] [address] Laboratory Report Ordering Provider Test Date Status ADRIENNE SALCIDO 10/08/2023 10:16:25 Final Observation Date Value Abnormality Reference (Units ) Status SYNC LEUKOCYTES IN BLOOD BY AUTOMATED COUNT 10/08/2023 10:16:25 5.48 4.00-10.80 (K/uL) Final Segs 10/08/2023 10:16:25 77.0 Above high normal 40.0-75.0 (%) Final Lymphs % 10/08/2023 10:16:25 7.7 Below low normal 18.0-42.0 (%) Final Monos 10/08/2023 10:16:25 11.5 Above high normal 1.0-11.0 (%) Final Eosinophils 10/08/2023 10:16:25 2.2 0.0-6.0 (%) Final Basos 10/08/2023 10:16:25 0.5 0.0-2.0 (%) Final Immature Granulocyte, Percent 10/08/2023 10:16:25 1.1 0.0-2.0 (%) Final Absolute Segs 10/08/2023 10:16:25 4.22 1.80-7.70 (K/uL) Final Lymphs, absolute 10/08/2023 10:16:25 0.42 Below low normal 1.00-4.80 (K/ul) Final Monos, Abs 10/08/2023 10:16:25 0.63 0.00-1.10 (K/uL) Final Eos, Abs 10/08/2023 10:16:25 0.12 0.00-0.70 (K/uL) Final Basos, Abs 10/08/2023 10:16:25 0.03 0.00-0.20 (K/uL) Final Immature Granulocytes, Number 10/08/2023 10:16:25 0.06 0.00-0.20 (K/uL) Final Performing Location LABORATORY [facility] – [place] - Formerly [facility] [address] [facility] [address]
--- OUTSIDE RECORDS SUMMARY | 2024-01-23 21:16 | External Medical Summary ---
Author Name Unknown Address Unknown Organization K01:LABORATORY [place] [address] [facility] [address] [place] [address] Laboratory Report Ordering Provider Test Date Status ADRIENNE SALCIDO 10/08/2023 10:16:25 Final Observation Date Value Abnormality Reference (Units ) Status WBC, Total 10/08/2023 10:16:25 5.48 4.00-10.80 (K/uL) Final RBC 10/08/2023 10:16:25 3.58 4.50-5.25 (M/uL) Final Hemoglobin 10/08/2023 10:16:25 9.9 Below low normal 14.0-16.8 (g/dL) Final HCT 10/08/2023 10:16:25 35.7 Below low normal 40.0-48.4 (%) Final MCV 10/08/2023 10:16:25 99.7 82.0-99.5 (fL) Final MCH 10/08/2023 10:16:25 27.7 27.0-34.0 (pg) Final MCHC 10/08/2023 10:16:25 27.7 32.0-36.0 (g/dL) Final RDW 10/08/2023 10:16:25 15.6 11.5-15.5 (%) Final Platelets 10/08/2023 10:16:25 147 140-400 (K/uL) Final MPV 10/08/2023 10:16:25 11.1 6.6-11.1 (fL) Final Nucleated erythrocytes/100 leukocytes [Ratio] in Blood by Automated count 10/08/2023 10:16:25 0 <=0 (/100 WBCs) Final Performing Location LABORATORY [facility] [place] - [address] [place] [address]
--- OUTSIDE RECORDS SUMMARY | 2024-01-23 21:17 | External Medical Summary | Summary of Care ---
Author Name Unknown Organization [facility] Address [address] [place] [address] Phone [phone] Care Team Providers Care Robotic Technician Name Role Phone Juancho Romero MD Primary Care Provider Encounter Details Date Type Department Care Team (Late st Contact Info) Description 10/03/2023 Result Scan Unspecified Department Tammie Scruggs, [facility] [address] [place] [address] <No scans attached> Allergies Active Allergy Reactions Criticality Noted Date Comments Penicillins Other (Please comment),Rash High Eyes swell Pollen 05/03/2022 Wound Dressing Adhesive Rash 05/02/2023 Patient reported documented as of this encounter (statuses as of 10/03/2023) Medications Medication Sig Dispensed Refills Start Date [...] albuterol 120 mL 5 11/21/2022 Active Ipratropium [place] 0.02 % Inhalation Solution (Atrovent)Indications :Moderate persistent [...] Respimat 2.5 MCG/ACT Inhalation Aerosol Solution (Tiotropium [place] Monohydrate)Indicatio ns:Moderate persistent asthma without complication INHALE [...] as of this encounter (statuses as of 10/03/2023) Active Problems Problem Noted Date Diagnosed Date [...] rinse after steroid. Test performed by Sameer APPLIED ANTHROPOLOGIST CPFT Pleural plaque due to asbestos exposure Restrictive lung disease Overview: In Check dial performed to assess inhaler technique: 12/15/19 Name of inhalers Albuterol Pass: Yes at 60 L/min and Advair Pass: Yes at 60 L/min. Encouraged to to take deep breath, use aero chamber, and rinse after steroid. Test performed by Sameer APPLIED ANTHROPOLOGIST CPFT Hx of pulmonary embolus 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 Overview: [place] C0-M6 documented as of this encounter (statuses as of 10/03/2023) Resolved Problems Problem Noted Date Diagnosed Date [...] as of this encounter (statuses as of 10/03/2023) Immunizations Name Administration Dates Next Due COVID-19 mRNA, LNP-s, No Pre serve, 2-Dose Series ([place]) 12/01/2021,01/16/2021,12/26/2020 COVID-19, LNP-s, No Preserve , Ozzy-sucrose, Ages 12+ ([place]) 12/01/2021 COVID-19, MRNA-LNP, 23-24, P F, 30 MCG/0.3 mL, 12 YRS AND ABOVE, IM ([facility]) 09/18/2023 Covid-19, Mrna, Lnp-s, Pf, B ivalent, 30 Mcg, IM, 12 yrs and above ([place]ond) 10/09/2022 Pneumococcal Conjugate Vacc, 13 Valent (Prevnar) [...] Care Team (Late st Contact Info) Description 10/04/2023 6:30 AM EST Anticoagulation Pharmacy Call Center 58[address]60 [facility] [place] [address] [facility] 58 60 [facility] [place] [address] 10/08/2023 11:00 AM EST Laboratory Laboratory [address] [place] [phone] [place] [address] 10/09/2023 11:45 AM EST Immunization/Injection Hematology/Oncology Treatment, [place] [address] [place] [address] Nurse, Med 4 200 [facility] [place] [address] 10/15/2023 11:00 AM EST Laboratory Laboratory [address] [place] [phone] [place] [address] 10/16/2023 11:15 AM EST Immunization/Injection [facility]ematology[facility], [place] [facility] [address] [facility], Med 4 200 [facility] [place] [address] 11/04/2023 3:40 PM EST Office Visit Family Medicine [address] [place] [phone] Bell Mcqueen MD [address] [place] [address] [place] [address] 11/05/2023 11:00 AM EST Immunization/Injection Hematology[facility], [place] [facility] [address] Nurse, Med 4 200 [facility] [place] [address] 12/31/2023 1:00 PM EST Cardiac Studies Cardiology [address] [place] [address] [place], [facility] 132 [place] [address] 01/20/2024 8:20 AM EST Office Visit Ophthalmology, [facility] 132 [place] [address] Pablo Casanova T, DO [address] [place] [address] 04/10/2024 10:40 AM EDT Office Visit Rheumatology [address] [place] [phone] [place] [address] [place] [address] [place] [address] Scheduled Procedures Name Priority Associated Diagnoses Date/Ti me ESOPHAGOGASTRODUODENOSCOPY ( EGD), FLEXIBLE, TRANSORAL, DIAGNOSTIC Recall Stark's esophagus with dysplasia Health Maintenance Due Date Last Done Comments Depression Screening 07/12/2021 07/12/2020 CKD PHOS USE SMARTSET 90893 08/21/2022 100 02/2021, 07/12/2020, 03/13/2019, Additional history exists Albumin/Creatinine Ratio 04/22/2024 023, 05/24/2022, 03/26/2022, Additional history exists TSH 08/20/2024 08/20/2023, 12/2022, 04/22/2023, Additional history exists CKD HGB USE SMARTSET 10498 10/01/202410/01, 10/01/2023, 09/24/2023, Additional history exists Stark's Esophagus Surveilance 02/26/2025 02/26/2022, 07/04/2021, 01/31/2021, Additional history exists DXA Scan 07/05/2025 07/05/2023, 10/19, 11/04/2018, Additional history exists DTaP,Tdap,and Td Vaccines (2 - Td or Tdap) 08/19/2027 08/19/2017, 08/20/2008 Pneumococcal Vaccine: 65+ Years Completed 06/23/2015, 05/14/2013, 04/18/2004 Zoster Vaccines Completed 12/02/2020, 08/15/2020 VITAMIN D LEVEL ONCE IN A LIFETIME-USE SMARTSET# [id number] Completed 04/22/2023, 08/28/2021, 07/14/2015 Influenza Vaccine (FLU [...] encounter Medical Devices Implanted Type Area Office Manager Device Identifier Shelf Expiration Date Model / Serial / Lot Power Port 8fr Sngl Lumen Plas - [id number] Implanted:Qty: 1 on 02/22/2022 at [facility] CR BARD : PERIPHERAL VASCULAR [id number] 02/15/2023 [id number] / / [id number] documented as of this encounter Procedures Procedure Name Priority Date/Time Associated Diagnosis Comments OUTSIDE LAB RESULTS 10/03/2023 documented in this encounter Results * OUTSIDE LAB RESULTS (10/03/2023) 10/03/2023 Tammie Scruggs [facility] documented in this encounter Advance Directives Latest Code Status on File Code Status Date Activated Date Inactivated Comments Full Code 09/03/2007 7:29 AM 09/03/2007 4:02 PM Care Teams Robotic Technician Relationship Specialty Start Date End Date Juancho Romero MD [address] [place] [address] [place] [address] PCP - General Family Medicine 12/27/16 documented as of this encounter
--- OUTSIDE RECORDS SUMMARY | 2024-01-23 21:17 | External Medical Summary | Summary of Care ---
Author Name Unknown Organization [facility] Address [address] [place] [address] Phone [phone] Care Team Providers Care Pharmacology Associate Name Role Phone Juancho Romero MD Primary Care Provider Reason for Visit * Reason Comments Dosage Adjustment Via Phone (anticoag Cl inic) Encounter Details Date Type Department Care Team (Latest Contact Info) Description 10/04/2023 6:30 AM EST Anticoagulation Pharmacy Call Center [address] [place] [address] [facility] [address] [place] [address] Hx of pulmonary embolus*; Longstanding persistent atrial fibrillation (HCC) Allergies Active Allergy Reactions Criticality Noted Date Comments Penicillins Other (Please comment),Rash High Eyes swell Pollen 05/03/2022 Wound Dressing Adhesive Rash 05/02/2023 Patient reported documented as of this encounter (statuses as of 10/04/2023) Medications Medication Sig Dispensed Refills Start Date [...] albuterol 120 mL 5 11/21/2022 Active Ipratropium [place] 0.02 % Inhalation Solution (Atrovent)Indications :Moderate persistent [...] Respimat 2.5 MCG/ACT Inhalation Aerosol Solution (Tiotropium [place] Monohydrate)Indicatio ns:Moderate persistent asthma without complication INHALE [...] Or take as instructed by the [facility] 90 Tablet 3 [...] as of this encounter (statuses as of 10/04/2023) Active Problems Problem Noted Date Diagnosed Date [...] rinse after steroid. Test performed by Sameer VERTICAL BORER CPFT Hx of pulmonary embolus 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 Overview: [place] C0-M6 documented as of this encounter (statuses as of 10/04/2023) Resolved Problems Problem Noted Date Diagnosed Date [...] infection 08/22/2005 04/05/2016 Anal fissure 06/04/2005 10/16/2007 care home current use of ant icoagulant therapy [...] as of this encounter (statuses as of 10/04/2023) Immunizations Name Administration Dates Next Due COVID-19 mRNA, LNP-s, No Pre serve, 2-Dose Series (Storie) 12/01/2021,01/16/2021,12/26/2020 COVID-19, LNP-s, No Preserve , Ozzy-sucrose, Ages 12+ (Storie) 12/01/2021 COVID-19, MRNA-LNP, 23-24, P F, 30 MCG/0.3 mL, 12 YRS AND ABOVE, IM ([facility]) 09/18/2023 Covid-19, Mrna, Lnp-s, Pf, B ivalent, 30 Mcg, IM, 12 yrs and above (Storie) 10/09/2022 Pneumococcal Conjugate Vacc, 13 Valent (Prevnar) [...] this encounter Progress Notes * Macie Wheeler softball coach - 10/04/2023 9:40 AM EST Contacts Type Contact Phone/Fax 10/04/2023 09:38 AM EST Phone (Outgoing) Patrick Robles" (Self) [phone] (H) Spoke to Patient Subjective Patient Findings Negatives: Signs/symptoms of thrombosis, [...] as noted by Pharmacist: Yes ELLIE BUNCH 10/04/2023, 9:40 AM * Ingris Garcia RP - 10/04/2023 8:39 AM EST Images from the original note were not included. Coumadin Clinic (region specific) Objective Current Warfarin Dose As of 10/04/2023 Warfarin maintenance plan: 0 mg every Mon; 2.5 mg (5 mg x 0.5) all other days INR Result As of 10/04/2023 INR goal: 2.0-3.0 INR used for dosin.3 (10/03/2023) Assessment & Plan Warfarin Plan As of 10/04/2023 Full warfarin instructions: 10/04: Hold; Otherwise 0 mg every Mon; 2.5 mg all other days Next INR check: 10/17/2023 Repeat PT/INR in 2 week(s) Weekly dose: not changed Additional Dosing Information: Description Home graduating machine operator to contact patient with dose instructions as noted. Ingris Garcia RPh 10/04/2023, 8:45 AM documented in this encounter Plan of Treatment Upcoming Encounters Date Type Department Care Team (Late st Contact Info) Description 10/08/2023 11:00 AM EST Laboratory Laboratory [address] [place] [phone] [place] [address] 10/09/2023 11:45 AM EST Immunization/Injecti on Hematology/Oncology Treatment, [address] [address] Nurse, Med 4 200 [facility] [place] [address] 10/15/2023 11:00 AM EST Laboratory Laboratory [address] [place] [phone] [place] [address] 10/16/2023 11:15 AM EST Immunization/Injecti on Hematology/Oncology Treatment, [address] [address] Nurse, Med 4 200 [facility] [place] [address] 11/04/2023 3:40 PM EST Office Visit Family Medicine [address] [place] [phone] Bell Mcqueen MD [address] [place] [address] [place] [address] 11/05/2023 11:00 AM EST Immunization/Injecti on Hematology/Oncology Treatment, [place] 200 [facility] [place] [address] Nurse, Med 4 200 [facility] [place] [address] 12/31/2023 1:00 PM EST Cardiac Studies Cardiology [address] [place] [address] [facility] 132 [facility] [place] [address] 01/03/2024 10:30 AM EST Imaging Radiology [facility] [address]st [address] [place] [address] 01/08/2024 10:00 AM EST Office Visit Hematology/Oncology [facility] 200 [facility] [place] [address] Ludwig Louis MD 200 [facility] [place] [address] 01/20/2024 8:20 AM EST Office Visit Ophthalmology, [address] [place] [address] Pablo Casanova T, DO [address] [place] [address] [place] [address] 04/10/2024 10:40 AM EDT Office Visit Rheumatology [address] [place] [phone] Win Nielsen MD [address] [employer] [place] [facility] [address] Scheduled Procedures Name Priority Associated Diagnoses Date/Ti me ESOPHAGOGASTRODUODENOSCOPY ( EGD), FLEXIBLE, TRANSORAL, DIAGNOSTIC Recall Stark's esophagus with dysplasia Health Maintenance Due Date Last Done Comments Depression Screening 07/12/2021 07/12/2020 CKD PHOS USE SMARTSET 53222 08/21/20220 02/2021, 07/12/2020, 03/13/2019, Additional history exists Albumin/Creatinine Ratio 04/22/2024 023, 05/24/2022, 03/26/2022, Additional history exists TSH 08/20/2024 08/20/2023, 12/2022, 04/22/2023, Additional history exists CKD HGB USE SMARTSET 31414 10/01/202410/01, 10/01/2023, 09/24/2023, Additional history exists Stark's Esophagus Surveilance 02/26/2025 02/26/2022, 07/04/2021, 01/31/2021, Additional history exists DXA Scan 07/05/2025 07/05/2023, 10/19, 11/04/2018, Additional history exists DTaP,Tdap,and Td Vaccines (2 - Td or Tdap) 08/19/2027 08/19/2017, 08/20/2008 Pneumococcal Vaccine: 65+ Years Completed 06/23/2015, 05/14/2013, 04/18/2004 Zoster Vaccines Completed 12/02/2020, 08/15/2020 VITAMIN D LEVEL ONCE IN A LIFETIME-USE SMARTSET# [id number] Completed 04/22/2023, 08/28/2021, 07/14/2015 Influenza Vaccine (FLU [...] encounter Medical Devices Implanted Type Area Crew Boat Operator Device Identifier Shelf Expiration Date Model / Serial / Lot Power Port 8fr Sngl Lumen Plas - [id number] Implanted:Qty: 1 on 02/22/2022 at [facility] CR BARD : PERIPHERAL VASCULAR [id number] 02/15/2023 [id number] / / [id number] documented as of this encounter Procedures Procedure Name Priority Date/Time Associated Diagnosis Comments OUTSIDE LAB-PT/INR Routine 10/03/2023 documented in this encounter Results * OUTSIDE LAB-PT/INR (10/03/2023) INR-OUTSIDE LAB 3.3 HOME FINGERSTIC K DEVICE History Per Patient LABORATORY HOME FINGERSTICK DEVICE documented in this encounter Visit Diagnoses Diagnosis Hx of pulmonary embolus- Primary Personal history of pulmonary embolism Longstanding persistent atrial fibrillation (HCC) documented in this encounter Advance Directives Latest Code Status on File Code Status Date Activated Date Inactivated Comments Full Code 09/03/2007 7:29 AM 09/03/2007 4:02 PM Care Teams Pharmacology Associate Relationship Specialty Start Date End Date Juancho Romero MD [address] [place] [address] [place] [phone] PCP - General Family Medicine 12/27/16 documented as of this encounter
--- OUTSIDE RECORDS SUMMARY | 2024-01-23 21:17 | External Medical Summary ---
Author Name Unknown Address Unknown Organization K01:LABORATORY [facility] - [address] [place] [address] Laboratory Report Ordering Provider Test Date Status SALCIDOSOTOADRIENNE 10/08/2023 10:16:25 Final Observation Date Value Abnormality Reference (Units ) Status T4, Free 10/08/2023 10:16:25 1.1 0.9-1.7 (n g/dL) Final Performing Location LABORATORY [facility] - [address] [place] [address]
--- OUTSIDE RECORDS SUMMARY | 2024-01-23 21:17 | External Medical Summary | Summary of Care ---
Author Name Unknown Organization [facility] Address [address] [place] [address] Phone [phone] Care Team Providers Care Community Relations Manager Name Role Phone Juancho Romero MD Primary Care Provider Reason for Referral * Precert (Within 24 hrs (call dept; emergent)) - Pending Review Specialty Diagnoses / Procedures Referred By Aaron vines Referred To Contact Radiology Diagnoses Carcinoma of bladder (HCC) Pulmonary nodule Procedures CT CHEST/ABDOMEN/PELVIS WO IV CONTRAST WO ORAL CONTRAST Ree Rodriguez CRNP [address] [place] [address] Referral ID Status Reason Start Date Expiration Date V isits Requested Visits Authorized [id number] Pending Review 01/03/2024 999 999 Reason for Visit * Reason Onset Date Comments Test Results Imaging Study 10/03/2023 Encounter Details Date Type Department Care Team (Late st Contact Info) Description 10/03/2023 Telephone Hematology/Oncology Dony Hickman [place] [facility] [address] Ree Rodriguez CRNP [address] [place] [address] Test Results Imaging Study Allergies Active Allergy [...] albuterol 120 mL 5 11/21/2022 Active Ipratropium [place] 0.02 % Inhalation Solution (Atrovent)Indications :Moderate persistent [...] Respimat 2.5 MCG/ACT Inhalation Aerosol Solution (Tiotropium [place] Monohydrate)Indicatio ns:Moderate persistent asthma without complication INHALE 2 PUFFS BY MOUTH EVERY DAY 12 g 3 04/30/2023 Active Furosemide 40 MG Oral Tablet (Lasix)Indications:Ac [place] on chronic diastolic congestive heart failure (HCC) [...] evening. Or take as instructed by the [facility] Coumadin Clinic 90 Tablet 3 08/09/2023 [...] rinse after steroid. 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 Encouraged to to take deep breath, use aero chamber, and rinse after steroid. Test performed by Sameer RAILROAD POLICE CPFT Hx of pulmonary embolus 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 Overview: [place] C0-M6 documented as of this encounter (statuses [...] Malignant neoplasm of prostate 09/23/2008 03/27/2018 Overview: [place] grade 3 Atrial flutter 09/02/2007 10/16/2007 Herpes simplex virus infection 08/22/2005 04/05/2016 Anal fissure 06/04/2005 10/16/2007 [facility] current use of ant icoagulant therapy 05/30/2005 [...] mRNA, LNP-s, No Pre serve, 2-Dose Series (Asktourism) 12/01/2021,01/16/2021,12/26/2020 COVID-19, LNP-s, No Preserve , Ozzy-sucrose, Ages 12+ (Pfizer) 12/01/2021 COVID-19, MRNA-LNP, 23-24, P F, 30 MCG/0.3 mL, 12 YRS AND ABOVE, IM ([employer]-Comirnaty) 09/18/2023 Covid-19, Mrna, Lnp-s, Pf, B ivalent, 30 Mcg, IM, 12 yrs and above (Asktourism) 10/09/2022 Pneumococcal Conjugate Vacc, 13 Valent (Prevnar) [...] Telephone Encounter - Tammie Everett OSA - 10/04/2023 7:40 AM EST Patient scheduled for a CT SCAN C/A/P @ for 01/03/24 @ 10:15am. Patient given prep instructions. * Telephone Encounter - Ree Rodriguez CRNP - 10/03/2023 4:03 PM EST Patient called to review results of CT C/A/P completed 09/25/23. Spoke to Mariana, patient's spouse: IMPRESSION New right middle lobe 7 mm nodule, nonspecific. A three-month follow-up CT of the chest is suggested. Small right pleural effusion is slightly larger than previously. Cardiomegaly. No definite metastatic disease in the abdomen or pelvis is appreciated. Per radiology recommendations and NCCN guidelines for surveillance of MIBC ordered repeat CT C/A/P in three months. Scheduling: Please assist patient in scheduling [address] scans with follow up with Dr. Louis approximately one week after scans for review. Please also fax CT scans results to Dr. Shannon at [facility] per patient request. Results also forwarded to pulmonary for review. documented in this encounter Plan of Treatment Upcoming Encounters Date Type Department Care Team (Late st Contact Info) Description 10/08/2023 11:00 AM EST Laboratory Laboratory [address] [place] [phone] [place] [address] 10/09/2023 11:45 AM EST Immunization/Injecti on Hematology/Oncology Treatment, [address] [address] Nurse, Med 4 200 [facility] [place] [address] 10/15/2023 11:00 AM EST Laboratory Laboratory [address] [place] [phone] [place] [address] 10/16/2023 11:15 AM EST Immunization/Injecti on Hematology/Oncology Treatment, [address] [place] [address] Nurse, Med 4 200 [facility] [place] [address] 11/04/2023 3:40 PM EST Office Visit Family Medicine [address] [place] [phone] Bell Mcqueen MD [address] [place] [address] [place] [address] 11/05/2023 11:00 AM EST Immunization/Injecti on Hematology/Oncology Treatment, [place] 200 [facility] [place] [address] Nurse, Med 4 200 [facility] [place] [address] 12/31/2023 1:00 PM EST Cardiac Studies Cardiology [address] [place] [address] [facility] 132 [facility] [place] [address] 01/03/2024 10:30 AM EST Imaging Radiology [facility] 1st [facility] 132 [facility] [place] [address] 01/08/2024 10:00 AM EST Office Visit Hematology/Oncology [facility] 200 [facility] [place] [address] Ludwig Louis MD 200 [facility] [place] [address] 01/20/2024 8:20 AM EST Office Visit Ophthalmology, [facility] 132 [facility] [place] [address] Pablo Casanova T, DO [address] [place], [place] [address] [address] 04/10/2024 10:40 AM EDT Office Visit Rheumatology [address] [place] [phone] Win Nielsen MD [address] [employer] [place] [address] Scheduled Orders Name Type Priority Associated Diagnoses Orde r Schedule CT CHEST/ABDOMEN/PELVIS WO IV CONTRAST WO ORAL CONTRAST Medical Imaging STAT Carcinoma of bladder (HCC) Pulmonary nodule Expected: 01/03/2024 (Approximate), Expires: 04/02/2024 Scheduled Procedures Name Priority Associated Diagnoses Date/Ti me ESOPHAGOGASTRODUODENOSCOPY ( EGD), FLEXIBLE, TRANSORAL, DIAGNOSTIC Recall Stark's esophagus with dysplasia Health Maintenance Due Date Last Done Comments Depression Screening 07/12/2021 07/12/2020 CKD PHOS USE SMARTSET 07200 08/21/202202/2021, 07/12/2020, 03/13/2019, Additional history exists Albumin/Creatinine Ratio 04/22/2024 023, 05/24/2022, 03/26/2022, Additional history exists TSH 08/20/2024 08/20/2023, 12/2022, 04/22/2023, Additional history exists CKD HGB USE SMARTSET 61299 10/01/202410/01, 10/01/2023, 09/24/2023, Additional history exists Stark's Esophagus Surveilance 02/26/2025 02/26/2022, 07/04/2021, 01/31/2021, Additional history exists DXA Scan 07/05/2025 07/05/2023, 10/19, 11/04/2018, Additional history exists DTaP,Tdap,and Td Vaccines (2 - Td or Tdap) 08/19/2027 08/19/2017, 08/20/2008 Pneumococcal Vaccine: 65+ Years Completed 06/23/2015, 05/14/2013, 04/18/2004 Zoster Vaccines Completed 12/02/2020, 08/15/2020 VITAMIN D LEVEL ONCE IN A LIFETIME-USE SMARTSET# [id number] Completed 04/22/2023, 08/28/2021, 07/14/2015 Influenza Vaccine (FLU [...] this encounter Medical Devices Implanted Type Area Interpretive Naturalist Device Identifier Shelf Expiration Date Model / Serial / Lot Power Port 8fr Sngl Lumen Plas - [id number] Implanted:Qty: 1 on 02/22/2022 at [facility] CR BARD : PERIPHERAL VASCULAR [id number] 02/15/2023 [id number] / / [id number] documented as of this encounter Visit Diagnoses Diagnosis Carcinoma of bladder (HCC)- Primary Malignant neoplasm of bladder, part unspecified Pulmonary nodule Solitary pulmonary nodule documented in this encounter Advance Directives Latest Code Status on File Code Status Date Activated Date Inactivated Comments Full Code 09/03/2007 7:29 AM 09/03/2007 4:02 PM Care Teams Community Relations Manager Relationship Specialty Start Date End Date Juancho Romero MD [address] [place] [address] [place] [phone] PCP - General Family Medicine 12/27/16 documented as of this encounter
--- OUTSIDE RECORDS SUMMARY | 2024-01-23 21:17 | External Medical Summary | Summary of Care ---
Author Name Unknown Organization [facility] Address [address] [place] [address] Phone [phone] Care Team Providers Care Credit Card Analyst Name Role Phone Juancho Romero MD Primary Care Provider [phone] Reason for Referral * Precert (Within 24 hrs (call dept; emergent)) - Pending Review Specialty Diagnoses / Procedures Referred By Aaron vines Referred To Contact Radiology Diagnoses Carcinoma of bladder (HCC) Pulmonary nodule Procedures CT CHEST/ABDOMEN/PELVIS WO IV CONTRAST WO ORAL CONTRAST Ree Rodriguez CRNP [address] [place] [address] Referral ID Status Reason Start Date Expiration Date V isits Requested Visits Authorized [id number] Pending Review 01/03/2024 999 999 Reason for Visit * Reason Onset Date Comments Test Results Imaging Study 10/03/2023 Encounter Details Date Type Department Care Team (Late st Contact Info) Description 10/03/2023 Telephone Hematology/Oncology Dony Hickman [place] 200 [facility] [address] Ree Rodriguez CRNP [address] [place] [address] [place] [address] Test Results Imaging Study Allergies [...] albuterol 120 mL 5 11/21/2022 Active Ipratropium [place] 0.02 % Inhalation Solution (Atrovent)Indications :Moderate persistent [...] Respimat 2.5 MCG/ACT Inhalation Aerosol Solution (Tiotropium [place] Monohydrate)Indicatio ns:Moderate persistent asthma without complication INHALE 2 PUFFS BY MOUTH EVERY DAY 12 g 3 04/30/2023 Active Furosemide 40 MG Oral Tablet (Lasix)Indications:Ac [place] on chronic diastolic congestive heart failure (HCC) [...] evening. Or take as instructed by the [facility] Coumadin Clinic 90 Tablet 3 [...] rinse after steroid. Test performed by Sameer [employer] RO[employer] PRODUCTION MANAGER CPFT Pleural plaque due to asbestos exposure Restrictive lung disease Overview: In Check dial performed to assess inhaler technique: 12/15/19 Name of inhalers Albuterol Pass: Yes at 60 L/min and Advair Pass: Yes at 60 L/min. Encouraged to to take deep breath, use aero chamber, and rinse after steroid. Test performed by Sameer [employer] RO[employer] PRODUCTION MANAGER CPFT Hx of pulmonary embolus 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 Overview: [place] C0-M6 documented as of this encounter (statuses [...] Malignant neoplasm of prostate 09/23/2008 03/27/2018 Overview: [place] grade 3 Atrial flutter 09/02/2007 10/16/2007 Herpes [...] mRNA, LNP-s, No Pre serve, 2-Dose Series ([employer]) 12/01/2021,01/16/2021,12/26/2020 COVID-19, LNP-s, No Preserve , Ozzy-sucrose, Ages 12+ (Pfizer) 12/01/2021 COVID-19, MRNA-LNP, 23-24, P F, 30 MCG/0.3 mL, 12 YRS AND ABOVE, IM ([employer]-Comirnaty) 09/18/2023 Covid-19, Mrna, Lnp-s, Pf, B ivalent, 30 Mcg, IM, 12 yrs and above ([employer]) 10/09/2022 Pneumococcal Conjugate Vacc, 13 Valent (Prevnar) [...] encounter Miscellaneous Notes * Telephone Encounter - Ree Rodriguez CRNP [...] CT scans results to Dr. Shannon at [facility] per patient request. Results also forwarded to pulmonary for review. documented in this encounter Plan of Treatment Upcoming Encounters Date Type Department Care Team (Latest Contact Info) Description 10/04/2023 6:30 AM EST Anticoagulation Pharmacy Call Center [address] [place] [address] [facility], [facility] [address] [facility] [place] [address] Hx of pulmonary embolus*; Longstanding persistent atrial fibrillation (HCC) 10/08/2023 11:00 AM EST Laboratory Laboratory [address] [place] [phone] [place] [address] 10/09/2023 11:45 AM EST Immunization/Injection Hematology/Oncolo gy Treatment, [address] [place] [address] Nurse, Med 4 200 [facility] [place] [address] 10/15/2023 11:00 AM EST Laboratory Laboratory [address] [place] [phone] [place] [address] 10/16/2023 11:15 AM EST Immunization/Injection Hematology/Oncolo gy Treatment, [place] 200 [facility] [address] Nurse, Med 4 200 [facility] [place] [address] 11/04/2023 3:40 PM EST Office Visit Family Medicine [address] [place] [phone] Bell Mcqueen MD [address] [place] [address] [place] [address] 11/05/2023 11:00 AM EST Immunization/Injection Hematology/Oncolo gy Treatment, [place] [address] [facility] [address] Nurse, Med 4 [address] [facility] [address] 12/31/2023 1:00 PM EST Cardiac Studies Cardiology [address] [place] [address] [place], Pacer [facility] 132 [place] [address] 01/20/2024 8:20 AM EST Office Visit Ophthalmology, [facility] 132 [place] [address] Pablo Casanova T, DO [address] [place] [address] 04/10/2024 10:40 AM EDT Office Visit Rheumatology [address] [place] [phone] [place] [address] [place] [address] [place] [address] Scheduled Orders Name Type Priority Associated Diagnoses [...] Screening 07/12/2021 07/12/2020 CKD PHOS USE SMARTSET 66577 08/21/2022 100 02/2021, 07/12/2020, 03/13/2019, Additional history exists Albumin/Creatinine Ratio 04/22/2024 023, 05/24/2022, 03/26/2022, Additional history exists TSH 08/20/2024 08/20/2023, 12/2022, 04/22/2023, Additional history exists CKD HGB USE SMARTSET 04710 10/01/202410/01, 10/01/2023, 09/24/2023, Additional history exists Stark's Esophagus Surveilance 02/26/2025 02/26/2022, 07/04/2021, 01/31/2021, Additional history exists DXA Scan 07/05/2025 07/05/2023, 10/19, 11/04/2018, Additional history exists DTaP,Tdap,and Td Vaccines (2 - Td or Tdap) 08/19/2027 08/19/2017, 08/20/2008 Pneumococcal Vaccine: 65+ Years Completed 06/23/2015, 05/14/2013, 04/18/2004 Zoster Vaccines Completed 12/02/2020, 08/15/2020 VITAMIN D LEVEL ONCE IN A LIFETIME-USE SMARTSET# [id number] Completed 04/22/2023, 08/28/2021, 07/14/2015 Influenza Vaccine (FLU [...] this encounter Medical Devices Implanted Type Area Tool Worker Device Identifier Shelf Expiration Date Model / Serial / Lot Power Port 8fr Sngl Lumen Plas - [id number] Implanted:Qty: 1 on 02/22/2022 at [facility] CR BARD : PERIPHERAL VASCULAR [id number] 02/15/2023 [id number] / / [id number] documented as of this encounter Visit Diagnoses Diagnosis Carcinoma of bladder (HCC)- Primary Malignant neoplasm of bladder, part unspecified Pulmonary nodule Solitary pulmonary nodule Hx of pulmonary embolus- Primary Personal history of pulmonary embolism Longstanding persistent atrial fibrillation (HCC) documented in this encounter Advance Directives Latest Code Status on File Code Status Date Activated Date Inactivated Comments Full Code 09/03/2007 7:29 AM 09/03/2007 4:02 PM Care Teams Credit Card Analyst Relationship Specialty Start Date End Date Juancho Romero MD [address] [place] [address] [place] [phone] PCP - General Family Medicine 12/27/16 documented as of this encounter
--- OUTSIDE RECORDS SUMMARY | 2024-01-23 21:17 | External Medical Summary ---
Author Name Unknown Address Unknown Organization [id number]:[facility] [place] [facility] [place] [address] Laboratory Report Ordering Provider Test Date Status ADRIENNE SALCIDO 10/08/2023 10:16:25 Final Observation Date Value Abnormality Reference (Units ) Status TSH 10/08/2023 10:16:25 6.87 Above high normal 0. 27-4.20 (uIU/mL) Final Performing Location [facility] [place] [address] [place] [address]
--- OUTSIDE RECORDS SUMMARY | 2024-01-23 21:18 | External Medical Summary ---
Author Name Unknown Address Unknown Organization K01:[facility] [place] [facility] [address] Laboratory Report Ordering Provider Test Date Status ADRIENNE SALCIDO 10/01/2023 09:13:02 Final Observation Date Value Abnormality Reference (Units ) Status SYNC LEUKOCYTES IN BLOOD BY AUTOMATED COUNT 10/01/2023 09:13:02 5.46 4.00-10.80 (K/uL) Final Segs 10/01/2023 09:13:02 74.4 40.0-75.0 (%) Final Lymphs % 10/01/2023 09:13:02 11.2 Below low normal 18.0-42.0 (%) Final Monos 10/01/2023 09:13:02 10.8 1.0-11.0 (%) Final Eosinophils 10/01/2023 09:13:02 1.8 0.0-6.0 (%) Final Basos 10/01/2023 09:13:02 0.9 0.0-2.0 (%) Final Immature Granulocyte, Percent 10/01/2023 09:13:02 0.9 0.0-2.0 (%) Final Absolute Segs 10/01/2023 09:13:02 4.06 1.80-7.70 (K/uL) Final Lymphs, absolute 10/01/2023 09:13:02 0.61 Below low normal 1.00-4.80 (K/ul) Final Monos, Abs 10/01/2023 09:13:02 0.59 0.00-1.10 (K/uL) Final Eos, Abs 10/01/2023 09:13:02 0.10 0.00-0.70 (K/uL) Final Basos, Abs 10/01/2023 09:13:02 0.05 0.00-0.20 (K/uL) Final Immature Granulocytes, Number 10/01/2023 09:13:02 0.05 0.00-0.20 (K/uL) Final Performing Location [facility] [place] - [facility] [address] [place] [address]
--- OUTSIDE RECORDS SUMMARY | 2024-01-23 21:18 | External Medical Summary | Summary of Care ---
Author Name Unknown Organization [facility] Address [address] [place] [address] Phone [phone] Care Team Providers Care Clinical Cytopathologist Name Role Phone Juancho Romero MD Primary Care Provider [phone] Reason for Visit * Reason Comments Outpatient Testing Encounter Details Date Type Department Care Team (Late st Contact Info) Description 10/01/2023 9:10 AM EST Laboratory Laboratory [address] [place] [phone] [place] [address] Urothelial carcinoma of bladder (HCC) Allergies Active Allergy Reactions Criticality Noted Date Comments Penicillins Other (Please comment),Rash High Eyes swell Pollen 05/03/2022 Wound Dressing Adhesive Rash 05/02/2023 Patient reported documented as of this encounter (statuses as of 10/01/2023) Medications Medication Sig Dispensed Refills Start Date [...] albuterol 120 mL 5 11/21/2022 Active Ipratropium [place] 0.02 % Inhalation Solution (Atrovent)Indications :Moderate persistent [...] Respimat 2.5 MCG/ACT Inhalation Aerosol Solution (Tiotropium [place] Monohydrate)Indicatio ns:Moderate persistent asthma without complication INHALE 2 PUFFS BY MOUTH EVERY DAY 12 g 3 04/30/2023 Active Furosemide 40 MG Oral Tablet (Lasix)Indications:Ac [place] on chronic diastolic congestive heart failure (HCC) [...] take as instructed by the [facility] 90 Tablet 3 08/09/2023 [...] as of this encounter (statuses as of 10/01/2023) Active Problems Problem Noted Date Diagnosed Date [...] rinse after steroid. 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 Encouraged to to take deep breath, use aero chamber, and rinse after steroid. 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 Overview: [place] C0-M6 documented as of this encounter (statuses as of 10/01/2023) Resolved Problems Problem Noted Date Diagnosed Date [...] as of this encounter (statuses as of 10/01/2023) Immunizations Name Administration Dates Next Due COVID-19 mRNA, LNP-s, No Pre serve, 2-Dose Series ([employer]) 12/01/2021,01/16/2021,12/26/2020 COVID-19, LNP-s, No Preserve , Ozzy-sucrose, Ages 12+ ([employer]) 12/01/2021 COVID-19, MRNA-LNP, 23-24, P F, 30 MCG/0.3 mL, 12 YRS AND ABOVE, IM ([facility]) 09/18/2023 Covid-19, Mrna, Lnp-s, Pf, B ivalent, 30 Mcg, IM, 12 yrs and above ([employer]) 10/09/2022 Pneumococcal Conjugate Vacc, 13 Valent (Prevnar) [...] Department Care Team (Latest Contact Info) Description 10/02/2023 11:15 AM EST Immunization/Injection Hematology/Oncology Treatment, [place] 200 [facility] [place] [address] Nurse, Med 4 200 [facility] [place] [address] 10/04/2023 6:30 AM EST Anticoagulation Pharmacy Call Center 58-60 [facility] [place] [address] [facility] 58 60 [facility] [place] [address] 10/08/2023 11:00 AM EST Laboratory Laboratory [address] [place] [phone] [address] [place] [address] 10/09/2023 11:45 AM EST Immunization/Injection Hematology/Oncology Treatment, [place] 200 [facility] [place] [address] Nurse, Med 4 200 [facility] [place] [address] 10/15/2023 11:00 AM EST Laboratory Laboratory [address] [place] [phone] [address] [place] [address] 10/16/2023 11:15 AM EST Immunization/Injection Hematology/[address] Treatment, [address] [address] Nurse, Med 4 200 [facility] [place] [address] 11/04/2023 3:40 PM EST Office Visit Family Medicine [address] [place] [phone] Bell Mcqueen MD [address] [place] [address] [place] [address] 11/05/2023 11:00 AM EST Immunization/Injection Hematology/Oncology Treatment, [place] [facility] [address] Nurse, Med 4 200 [facility] [place] [address] 12/31/2023 1:00 PM EST Cardiac Studies Cardiology [address] [place] [address] [address] Frazier [address] [place] [address] 04/10/2024 10:40 AM EDT Office Visit Rheumatology [address] [place] [phone] Win Nielsen MD [address] [place] [address] [place] [address] Pending Results Name Type Priority Associated Diagnoses Date /Time CBC WITH WBC DIFFERENTIAL Lab STAT Urothelial carcinoma of bladder (HCC) 10/01/2023 9:13 AM EST CBC Lab STAT Urothelial carcinoma of bladder (HCC) 10/01/2023 9:13 AM EST DIFFERENTIAL, AUTOMATED Lab STAT Urothelial carcinoma of bladder (HCC) 10/01/2023 9:13 AM EST Scheduled Procedures Name Priority Associated Diagnoses Date/Ti me ESOPHAGOGASTRODUODENOSCOPY ( EGD), FLEXIBLE, TRANSORAL, DIAGNOSTIC Recall Stark's esophagus with dysplasia Health Maintenance Due Date Last Done Comments Depression Screening 07/12/2021 07/12/2020 CKD PHOS USE SMARTSET 83880 08/21/2022 100 02/2021, 07/12/2020, 03/13/2019, Additional history exists Albumin/Creatinine Ratio 04/22/2024 023, 05/24/2022, 03/26/2022, Additional history exists TSH 08/20/2024 08/20/2023, 12/2022, 04/22/2023, Additional history exists CKD HGB USE SMARTSET 42538 09/24/202409/24, 09/24/2023, 09/17/2023, Additional history exists Stark's Esophagus Surveilance 02/26/2025 02/26/2022, 07/04/2021, 01/31/2021, Additional history exists DXA Scan 07/05/2025 07/05/2023, 10/19, 11/04/2018, Additional history exists DTaP,Tdap,and Td Vaccines (2 - Td or Tdap) 08/19/2027 08/19/2017, 08/20/2008 Pneumococcal Vaccine: 65+ Years Completed 06/23/2015, 05/14/2013, 04/18/2004 Zoster Vaccines Completed 12/02/2020, 08/15/2020 VITAMIN D LEVEL ONCE IN A LIFETIME-USE SMARTSET# [id number] Completed 04/22/2023, 08/28/2021, 07/14/2015 Influenza Vaccine (FLU [...] this encounter Medical Devices Implanted Type Area Learning Disabled Teacher Device Identifier Shelf Expiration Date Model / Serial / Lot Power Port 8fr Sngl Lumen Plas - [id number] Implanted:Qty: 1 on 02/22/2022 at [facility] CR BARD : PERIPHERAL VASCULAR [id number] 02/15/2023 [id number] / / [id number] documented as of this encounter Visit Diagnoses Diagnosis Urothelial carcinoma of bladder (HCC) documented in this encounter Advance Directives Latest Code Status on File Code Status Date Activated Date Inactivated Comments Full Code 09/03/2007 7:29 AM 09/03/2007 4:02 PM Care Teams Clinical Cytopathologist Relationship Specialty Start Date End Date Juancho Romero MD [address] [place] [address] [place] [id number] PCP - General Family Medicine 12/27/16 documented as of this encounter
--- OUTSIDE RECORDS SUMMARY | 2024-01-23 21:18 | External Medical Summary | Summary of Care ---
Author Name Unknown Organization [facility] Address [address] [place] [address] Phone [phone] Care Team Providers Care Sexton Helper Name Role Phone Juancho Romero MD Primary Care Provider [phone] Encounter Details Date Type Department Care Team (Late st Contact Info) Description 10/01/2023 Result Scan Unspecified Department <No scans attached> Allergies Active Allergy Reactions Criticality Noted Date Comments Penicillins Other (Please comment),Rash High Eyes swell Pollen 05/03/2022 Wound Dressing Adhesive Rash 05/02/2023 Patient reported documented as of this encounter (statuses as of 10/02/2023) Medications Medication Sig Dispensed Refills Start Date [...] albuterol 120 mL 5 11/21/2022 Active Ipratropium [place] 0.02 % Inhalation Solution (Atrovent)Indications :Moderate persistent [...] Respimat 2.5 MCG/ACT Inhalation Aerosol Solution (Tiotropium [place] Monohydrate)Indicatio ns:Moderate persistent asthma without complication INHALE 2 PUFFS BY MOUTH EVERY DAY 12 g 3 04/30/2023 Active Furosemide 40 MG Oral Tablet (Lasix)Indications:Ac [place] on chronic diastolic congestive heart failure (HCC) [...] as of this encounter (statuses as of 10/02/2023) Active Problems Problem Noted Date Diagnosed Date [...] rinse after steroid. Test performed by Sameer HOUSE CARPENTER CPFT Pleural plaque due to asbestos exposure Restrictive lung disease Overview: In Check dial performed to assess inhaler technique: 12/15/19 Name of inhalers Albuterol Pass: Yes at 60 L/min and Advair Pass: Yes at 60 L/min. Encouraged to to take deep breath, use aero chamber, and rinse after steroid. Test performed by Sameer HOUSE CARPENTER CPFT Hx of pulmonary embolus 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 Overview: [place] C0-M6 documented as of this encounter (statuses as of 10/02/2023) Resolved Problems Problem Noted Date Diagnosed Date [...] as of this encounter (statuses as of 10/02/2023) Immunizations Name Administration Dates Next Due COVID-19 mRNA, LNP-s, No Pre serve, 2-Dose Series ([employer]) 12/01/2021,01/16/2021,12/26/2020 COVID-19, LNP-s, No Preserve , Ozzy-sucrose, Ages 12+ (Pfizer) 12/01/2021 COVID-19, MRNA-LNP, 23-24, P F, 30 MCG/0.3 mL, 12 YRS AND ABOVE, IM ([facility] 09/18/2023 Covid-19, Mrna, Lnp-s, Pf, B ivalent, 30 Mcg, IM, 12 yrs and above ([employer]) 10/09/2022 Pneumococcal Conjugate Vacc, 13 Valent (Prevnar) [...] 10/02/2023 11:15 AM EST Immunization/Injection Hematology/Oncology Treatment, [place] 200 [facility] [place] [address] Nurse, Med [address] [place] [address] 10/04/2023 6:30 AM EST Anticoagulation Pharmacy Call Center 58-60 [facility] [place] [address] [facility] 58 60 [facility] [place] [address] 10/08/2023 11:00 AM EST Laboratory Laboratory [address] [place] [phone] [address] [place] [address] 10/09/2023 11:45 AM EST Immunization/Injection Hematology/Oncology Treatment, [place] 200 [place] [address] Nurse, Med [address] [place] [address] [address] 10/15/2023 11:00 AM EST Laboratory Laboratory [address] [place] [phone] [address] [place] [address] 10/16/2023 11:15 AM EST Immunization/Injection Hematology/Oncology Treatment, [place] 200 [facility] [address] Nurse, Med 4 200 [facility] [place] [address] 11/04/2023 3:40 PM EST Office Visit Family Medicine [address] [place] [phone] Bell Mcqueen MD [address] [place] [address] [place] [address] 11/05/2023 11:00 AM EST Immunization/Injection Hematology/Oncology Treatment, [place] 200 [facility] [address] Nurse, Med 4 200 [facility] [place] [address] 12/31/2023 1:00 PM EST Cardiac Studies Cardiology [address] [place] [address] [facility], Pacer [address] [place] [address] 04/10/2024 10:40 AM EDT Office Visit Rheumatology [address] [place] [phone] Win Nielsen MD [address] [place] [address] [place] [address] Scheduled Procedures Name Priority Associated Diagnoses Date/Ti me ESOPHAGOGASTRODUODENOSCOPY ( EGD), FLEXIBLE, TRANSORAL, DIAGNOSTIC Recall Stark's esophagus with dysplasia Health Maintenance Due Date Last Done Comments Depression Screening 07/12/2021 07/12/2020 CKD PHOS USE SMARTSET 05163 08/21/2022 10/0 02/2021, 07/12/2020, 03/13/2019, Additional history exists Albumin/Creatinine Ratio 04/22/2024 023, 05/24/2022, 03/26/2022, Additional history exists TSH 08/20/2024 08/20/2023, 08/12/2022, 04/22/2023, Additional history exists CKD HGB USE SMARTSET 55300 10/01/202410/01, 10/01/2023, 09/24/2023, Additional history exists Stark's Esophagus Surveilance 02/26/2025 02/26/2022, 07/04/2021, 01/31/2021, Additional history exists DXA Scan 07/05/2025 07/05/2023, 10/19, 11/04/2018, Additional history exists DTaP,Tdap,and Td Vaccines (2 - Td or Tdap) 08/19/2027 08/19/2017, 08/20/2008 Pneumococcal Vaccine: 65+ Years Completed 06/23/2015, 05/14/2013, 04/18/2004 Zoster Vaccines Completed 12/02/2020, 08/15/2020 VITAMIN D LEVEL ONCE IN A LIFETIME-USE SMARTSET# [id number] Completed 04/22/2023, 08/28/2021, 07/14/2015 Influenza Vaccine (FLU [...] this encounter Medical Devices Implanted Type Area Sap Bw Consultant Device Identifier Shelf Expiration Date Model / Serial / Lot Power Port 8fr Sngl Lumen Plas - [id number] Implanted:Qty: 1 on 02/22/2022 at [facility] CR BARD : PERIPHERAL VASCULAR [id number] 02/15/2023 [id number] / / [id number] documented as of this encounter Procedures Procedure Name Priority Date/Time Associated Diagnosis Comments PROCEDURE SCANNED RESULT 10/01/2023 documented in this encounter Results * PROCEDURE SCANNED RESULT (10/01/2023) 10/01/2023 No Physician Data Unknown SURGERY documented in this encounter Advance Directives Latest Code Status on File Code Status Date Activated Date Inactivated Comments Full Code 09/03/2007 7:29 AM 09/03/2007 4:02 PM Care Teams Sexton Helper Relationship Specialty Start Date End Date Juancho Romero MD [address] [place] [address] [place] [address] PCP - General Family Medicine 12/27/16 documented as of this encounter
--- OUTSIDE RECORDS SUMMARY | 2024-01-23 21:18 | External Medical Summary | Summary of Care ---
Author Name Unknown Organization [facility] Address [address] [place] [address] Phone [phone] Care Team Providers Care Vacuum Cleaner Repairer Name Role Phone Juancho Romero MD Primary Care Provider [phone] Reason for Visit * Reason Comments Medication Administration Procrit * Episode Based Medications (Routine) - Authorized Specialty Diagnoses / Procedures Referred By Aaron t Referred To Contact Diagnoses Carcinoma of bladder (HCC) Chronic kidney disease, stage 3a (HCC) Iron deficiency anemia, unspecified iron deficiency anemia type Procedures TN INJ RETACRIT NON-ESRD USE TN THERAPEUTIC PROPHYLACTIC/DX INJECTION SUBQ/IM TN EPOETIN IVAN, NON-ESRD Ludwig Louis MD [address] [place] [address] Anc Hem/Onc Dony Hickman DEPT CLOSED - 10/01/23 [address] [place] [address] Referral ID Status Reason Start Date Expiration Date V isits Requested Visits Authorized [id number] Authorized 09/12/2022 10/25/2023 999 99 Encounter Details Date Type Department Care Team (Late st Contact Info) Description 10/02/2023 11:15 AM EST Immunization/I njection Hematology/Oncology Treatment, [place] [address] [place] [address] Nurse, Med [address] [place] [address] Carcinoma of bladder (HCC)*; Chronic kidney disease, [...] albuterol 120 mL 5 11/21/2022 Active Ipratropium [place] 0.02 % Inhalation Solution (Atrovent)Indications :Moderate persistent [...] Respimat 2.5 MCG/ACT Inhalation Aerosol Solution (Tiotropium [place] Monohydrate)Indicatio ns:Moderate persistent asthma without complication INHALE 2 PUFFS BY MOUTH EVERY DAY 12 g 3 04/30/2023 Active Furosemide 40 MG Oral Tablet (Lasix)Indications:Ac [place] on chronic diastolic congestive heart failure (HCC) [...] as instructed by the [facility] 90 Tablet 3 08/09/2023 Active Spironolactone 25 [...] rinse after steroid. Test performed by Sameer GAME SHOW HOST CPFT Pleural plaque due to asbestos exposure Restrictive lung disease Overview: In Check dial performed to assess inhaler technique: 12/15/19 Name of inhalers Albuterol Pass: Yes at 60 L/min and Advair Pass: Yes at 60 L/min. Encouraged to to take deep breath, use aero chamber, and rinse after steroid. Test performed by Sameer GAME SHOW HOST CPFT Hx of pulmonary embolus 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 Overview: [place] C0-M6 documented as of this encounter [...] Anal fissure 06/04/2005 10/16/2007 long term care pharmacist current use of ant icoagulant therapy 05/30/2005 [...] mRNA, LNP-s, No Pre serve, 2-Dose Series ([employer]) 12/01/2021,01/16/2021,12/26/2020 COVID-19, LNP-s, No Preserve , Ozzy-sucrose, Ages 12+ ([employer]) 12/01/2021 COVID-19, MRNA-LNP, 23-24, P F, 30 MCG/0.3 mL, 12 YRS AND ABOVE, IM ([facility]) 09/18/2023 Covid-19, Mrna, Lnp-s, Pf, B ivalent, 30 Mcg, IM, 12 yrs and above ([employer]) 10/09/2022 Pneumococcal Conjugate Vacc, 13 Valent (Prevnar) [...] Sign Reading Time Taken Comments Blood Pressure 113/66 10/02/2023 11:31 AM EST Pulse - - Temperature - - Respiratory Rate - - Oxygen Saturation - - Inhaled Oxygen Concentration - - Weight - - Height - - Body Mass Index - - documented in this encounter Nursing Notes * Leana Sears LPN - 10/02/2023 11:41 AM EST Pt arrived for Procrit injection. Hgb 10.3. BP WNL. Administered in SHON. Pt tolerated well. To return in one week. Discharged in stable condition. documented in this encounter Plan of Treatment Upcoming Encounters Date Type Department Care Team (Late st Contact Info) Description 10/04/2023 6:30 AM EST Anticoagulation Pharmacy Call Center 58-60 [facility] [place] [address] Ccps, [facility] 58 60 [facility] [place] [address] 10/08/2023 11:00 AM EST Laboratory Laboratory [address] [place] [phone] [place] [address] 10/09/2023 11:45 AM EST Immunization/Injection Hematology/Oncology Treatment, [address] [address] Nurse, Med [address] [place] [address] [place] [address] 10/15/2023 11:00 AM EST Laboratory Laboratory [address] [place] [phone] [place] [address] 10/16/2023 11:15 AM EST Immunization/Injection Hematology/Oncology Treatment, [address] [address] Nurse, Med [address] [place] [address] [place] [address] 11/04/2023 3:40 PM EST Office Visit Family Medicine [address] [place] [phone] Bell Mcqueen MD [address] [place] [address] [place] [address] 11/05/2023 11:00 AM EST Immunization/Injection Hematology/Oncology Treatment, [place] [facility] [address] Nurse, Med [address] [facility] [address] 12/31/2023 1:00 PM EST Cardiac Studies Cardiology [address] [place] [address] [facility] 132 [place] [address] 01/20/2024 8:20 AM EST Office Visit Ophthalmology, [facility] 132 [place] [address] Pablo Casanova, DO [address] [place] [address] 04/10/2024 10:40 AM EDT Office Visit Rheumatology [address] [place] [phone] Win Nielsen MD [address] [place] [address] [place] [address] Scheduled Procedures Name Priority Associated Diagnoses Date/Ti me ESOPHAGOGASTRODUODENOSCOPY ( EGD), FLEXIBLE, TRANSORAL, DIAGNOSTIC Recall Stark's esophagus with dysplasia Health Maintenance Due Date Last Done Comments Depression Screening 07/12/2021 07/12/2020 CKD PHOS USE SMARTSET 60011 08/21/2022 10/0 02/2021, 07/12/2020, 03/13/2019, Additional history exists Albumin/Creatinine Ratio 04/22/2024 023, 05/24/2022, 03/26/2022, Additional history exists TSH 08/20/2024 08/20/2023, 08/0 12/2022, 04/22/2023, Additional history exists CKD HGB USE SMARTSET 54206 10/01/202410/01, 10/01/2023, 09/24/2023, Additional history exists Stark's Esophagus Surveilance 02/26/2025 02/26/2022, 07/04/2021, 01/31/2021, Additional history exists DXA Scan 07/05/2025 07/05/2023, 10/19, 11/04/2018, Additional history exists DTaP,Tdap,and Td Vaccines (2 - Td or Tdap) 08/19/2027 08/19/2017, 08/20/2008 Pneumococcal Vaccine: 65+ Years Completed 06/23/2015, 05/14/2013, 04/18/2004 Zoster Vaccines Completed 12/02/2020, 08/15/2020 VITAMIN D LEVEL ONCE IN A LIFETIME-USE SMARTSET# [id number] Completed 04/22/2023, 08/28/2021, 07/14/2015 Influenza Vaccine (FLU [...] this encounter Medical Devices Implanted Type Area Rural Health Consultant Device Identifier Shelf Expiration Date Model / Serial / Lot Power Port 8fr Sngl Lumen Plas - [id number] Implanted:Qty: 1 on 02/22/2022 at [facility] CR BARD : PERIPHERAL VASCULAR [id number] 02/15/2023 [id number] / / [id number] documented as of this encounter Visit Diagnoses Diagnosis Carcinoma of bladder (HCC)- Primary Malignant neoplasm of bladder, part unspecified Chronic kidney disease, stage 3a (HCC) Iron deficiency anemia, unspecified iron deficiency anemia type documented in this encounter Administered Medications Inactive Administered Medications - up to 3 most recent administrations Medication Order MAR Action Action Date Dose Rate Site Epoetin Ivan [address] UNIT/ML inj 40,000 Units 40,000 Units, Subcutaneous, ONCE, On Sat10/02/23 at 1200, For 1 dose Given 10/02/2023 11:32 AM EST 40,000 Units Arm Right Upper documented in this encounter Advance Directives Latest Code Status on File Code Status Date Activated Date Inactivated Comments Full Code 09/03/2007 7:29 AM 09/03/2007 4:02 PM Care Teams Vacuum Cleaner Repairer Relationship Specialty Start Date End Date Juancho Romero MD [address] [place] [address] [place] [address] PCP - General Family Medicine 12/27/16 documented as of this encounter
--- OUTSIDE RECORDS SUMMARY | 2024-01-23 21:18 | External Medical Summary ---
Author Name Unknown Address Unknown Organization K01:[facility]OR[facility] [place] - [facility] [address] [place] [address] Laboratory Report Ordering Provider Test Date Status ADRIENNE SALCIDO 10/01/2023 09:13:02 Final Observation Date Value Abnormality Reference (Units ) Status WBC, Total 10/01/2023 09:13:02 5.46 4.00-10.80 (K/uL) Final RBC 10/01/2023 09:13:02 3.67 4.50-5.25 (M/uL) Final Hemoglobin 10/01/2023 09:13:02 10.3 Below low normal 14.0-16.8 (g/dL) Final HCT 10/01/2023 09:13:02 36.8 Below low normal 40.0-48.4 (%) Final MCV 10/01/2023 09:13:02 100.3 82.0-99.5 (fL) Final MCH 10/01/2023 09:13:02 28.1 27.0-34.0 (pg) Final MCHC 10/01/2023 09:13:02 28.0 32.0-36.0 (g/dL) Final RDW 10/01/2023 09:13:02 16.2 11.5-15.5 (%) Final Platelets 10/01/2023 09:13:02 135 Below low normal 140-400 (K/uL) Final MPV 10/01/2023 09:13:02 11.7 6.6-11.1 (fL) Final Nucleated erythrocytes/100 leukocytes [Ratio] in Blood by Automated count 10/01/2023 09:13:02 0 <=0 (/100 WBCs) Final Performing Location LAB[facility]ORY [facility] [place] - [address] [place] [address]
[2024-01-24] MEDS: LEVOTHYROXINE SODIUM 125 MCG TABLET PO SCH (05:52)
[2024-01-24] MEDS: BENZONATATE 100 MG CAPSULE PO PRN (06:06)
[2024-01-24 06:22] LABS: Calcium 8.5 mg/dl (8.6-10.3); Creatinine Clr Calc Pharmacy 27.1 ml/min; Est GFR (African American) 43.2 ml/min; Est GFR (Non-African American) 37.3 ml/min; Magnesium 1.9 mg/dl (1.7-2.4); Potassium 4.3 mmol/L (3.5-5.1)
[2024-01-24 06:31] LABS: INR 3.3 (0.9-1.1); Prothrombin Time 33.8 Seconds (9.0-12.0)
[2024-01-24 06:48] LABS: Hematocrit (blood only) 32.1 % (42.0-52.0); Hemoglobin 9.6 g/dl (14.0-18.0); Mean Corpuscular Hemoglobin 28.2 pg (25.0-34.0); Mean Corpuscular Hgb Conc 29.9 g/dL (32.0-36.0); Mean Corpuscular Volume 94.4 fL (80.0-100.0); Mean Platelet Volume 11.1 fL (9.4-12.4); Platelet Count 80 K/uL (130-400); Platelet Estimate Decreased (Normal); RDW Coefficient of Variation 17.2 % (11.5-14.5); RDW Standard Deviation 59.9 fL (36.4-46.3); White Blood Count 4.99 K/ul (4.8-10.8)
[2024-01-24] MEDS: predniSONE 5 MG TAB PO SCH (08:07)
[2024-01-24] MEDS: VITAMIN B COMPLEX TAB PO SCH (08:07)
[2024-01-24] MEDS: SPIRONOLACTONE 12.5 MG TAB PO SCH (08:07)
[2024-01-24] MEDS: FERROUS SULFATE 325 MG TAB PO SCH (08:07)
[2024-01-24] MEDS: POLYETHYLENE (MIRALAX) 17 GM PACK PO SCH (08:07)
--- OUTSIDE RECORDS SUMMARY | 2024-01-24 09:14 | External Medical Summary | Summary of Care ---
Author Name Unknown Organization [facility] Address [address] [place] [address] Phone [phone] Care Team Providers Care Armature Tester Name Role Phone Juancho Romero MD Primary Care Provider Reason for Visit * Reason Onset Date Comments Medication Refill 01/18/2024 Encounter Details Date Type Department Care Team (Late st Contact Info) Description 01/18/2024 Telephone Family Medicine [address] [phone] Juancho Romero MD [address] [place] [address] [place] [address] Medication Refill Allergies Active Allergy Reactions Criticality Noted Date Comments Penicillins Other (Please comment),Rash High Eyes swell Pollen 05/03/2022 Wound Dressing Adhesive Rash 05/02/2023 Patient reported documented as of this encounter (statuses as of 01/23/2024) Medications Medication Sig Dispensed Refills Start Date [...] albuterol 120 mL 5 11/21/2022 Active Ipratropium [place] 0.02 % Inhalation Solution (Atrovent)Indicati ons:Moderate persistent [...] Respimat 2.5 MCG/ACT Inhalation Aerosol Solution (Tiotropium [place] Monohydrate)Indica tions:Moderate persistent asthma without complication INHALE [...] as of this encounter (statuses as of 01/23/2024) Active Problems Problem Noted Date Diagnosed Date [...] rinse after steroid. Test performed by Sameer COMMERCIAL CREDIT SPECIALIST CPFT Pleural plaque due to asbestos exposure Restrictive lung disease Overview: In Check dial performed to assess inhaler technique: 12/15/19 Name of inhalers Albuterol Pass: Yes at 60 L/min and Advair Pass: Yes at 60 L/min. Encouraged to to take deep breath, use aero chamber, and rinse after steroid. Test performed by Sameer COMMERCIAL CREDIT SPECIALIST CPFT Hx of pulmonary embolus 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 Overview: [place] C0-M6 documented as of this encounter (statuses as of 01/23/2024) Resolved Problems Problem Noted Date Diagnosed Date [...] Malignant neoplasm of prostate 09/23/2008 03/27/2018 Overview: [place] grade 3 Atrial flutter 09/02/2007 10/16/2007 Herpes [...] as of this encounter (statuses as of 01/23/2024) Immunizations Name Administration Dates Next Due COVID-19 mRNA, LNP-s, No Pre serve, 2-Dose Series (Reactivity) 12/01/2021,01/16/2021,12/26/2020 COVID-19, LNP-s, No Preserve , Ozzy-sucrose, Ages 12+ (Reactivity) 12/01/2021 COVID-19, MRNA-LNP, 23-24, P F, 30 MCG/0.3 mL, 12 YRS AND ABOVE, IM (Flyfit-Comirnat) 09/18/2023 Covid-19, Mrna, Lnp-s, Pf, B ivalent, 30 Mcg, IM, 12 yrs and above (Reactivity) 10/09/2022 Pneumococcal Conjugate Vacc, 13 Valent (Prevnar) [...] encounter Miscellaneous Notes * Telephone Encounter - Therese Cano sports editor - 01/23/2024 10:30 AM EST Checked status of prior authorization for Esomperazole 40mg through CM. Patient and pharmacy notified of approval. Approved until(if applicable): 11/17/24 Therese Dominguez Automobile Seat Cover Installer III [facility]) 01/23/2024,10:30 AM * Telephone Encounter - Gianfranco Richards CPhT - 01/21/2024 12:51 PM EST Submitted information in previous note via CMM (Ureña: [id number] ).. Awaiting payer response. We will follow-up with insurance starting 01/22. Per [facility] request, if no decision is received from insurance by 01/26, we will route back to the [facility] after clarifying with the pharmacy that the claim is still not processing. Thank you, Yaw Richards ([facility]) Automobile Seat Cover Installer III [facility] ([facility]) (formerly Telepharmacy) 01/21/2024, 12:51 PM * Telephone Encounter - Edwige Longoria [facility] - 01/21/2024 11:17 AM EST Please submit [...] upon this and route back to the [facility] pool if no decision is made by the insurance by 01/26, after clarifying with the pharmacy that the claim is still not processing. If PA is denied, please also route back to [facility] pool. Thanks, Edwige Longoria, PharmD Clinical Pharmacist [facility] ([facility]) (formerly Telepharmacy) [phone] 01/21/2024 11:18 AM * Telephone Encounter - Gianfranco Richards CPhT - 01/21/2024 7:40 AM EST Images from the original note were not included. This is a new [place] request. Upon review of this prior authorization request, I verified this request is appropriate. This is prescribed by a department for which [facility] is authorized to review prior authorizations [...] note, there is nothing currently pending in [facility] for this request. Please advise how to proceed. Thank you, Yaw Richards ([facility]) Autom[employer] Seat Cover Installer III [facility] ([facility]) (formerly [facility]pharm[facility]) 01/21/2024, 7:40 AM * Telephone Encounter - Gianfranco Richards CPhT - 01/21/2024 7:40 AM EST Pt's current insurance information is as follows: Patient name: Patrick Robles ID number: [id number] BIN number: [id number] PCN number: [id number] Group number: [id number] Subscriber name: Patrick Robles Primary or Secondary Insurance:Primary Medication: Esomeprazole 40mg Reason for Request: Qty limit Pharmacy and phone number: [id number] [address] Rx plan and phone number: [employer] medicare Thank you, Yaw Berman) Automobile Seat Cover Installer III [facility] ([facility]) (formerly Telepharmacy) 01/21/2024, 7:40 AM * Telephone Encounter - Lul Boone RP - 01/20/2024 12:14 PM EST Pending Prescriptions: Disp Refills Esomeprazole Magnesium 40 MG Oral Capsule *180 Ca*1 Sig: Take 1 Capsule by mouth in the morning and 1 Capsule before bedtime. * Telephone Encounter - Lul Boone RPh - 01/20/2024 12:10 PM EST Bid dosing requires pa. Thank you, Eldon Boone, PharmD Clinical Pharmacist [facility] ([facility]) 01/20/24 12:13 PM [phone] documented in this encounter Plan of Treatment Upcoming Encounters Date Type Department Care Team (Late st Contact Info) Description 01/28/2024 9:10 AM EDT Laboratory Laboratory [address] [place] [phone] [place] [address] 01/29/2024 10:30 AM EDT Immunization/Injection Hematology/Oncology Treatment, [place] [address] [place] [phone] [facility] [address] 02/03/2024 9:50 AM EDT Office Visit Ophthalmology, [facility] [address] [facility] [place] [address] Pablo Casanova, DO [address] [place] [address] 02/04/2024 6:30 AM EDT Anticoagulation Pharmacy Call Center [address] [place] [address] [facility], [facility] [address] [facility] [place] [address] 02/06/2024 10:30 AM EDT Office Visit Cardiology, [facility] [address] [place] [address] Andres Rainey MD [address] [facility] [place] [address] 02/11/2024 9:40 AM EDT Office Visit Family Medicine [address] [place] [phone] Bell Mcqueen MD [address] [place] [address] [place] [address] 02/19/2024 11:00 AM EDT Immunization/Injection [facility]ematology[facility], [place] [facility] [phone] Nurse, Med [address] [facility] [place] [address] 05/13/2024 11:00 AM EDT Office Visit Hematology/Oncology [facility] [address] [facility] [place] [phone] Ludwig Louis MD [address] [facility] [place] [address] 08/10/2024 1:40 PM EDT Office Visit Rheumatology [address] [place] [phone] Win Nielsen MD [facility] [place] [address] Scheduled Procedures Name Priority Associated Diagnoses Date/Ti me ESOPHAGOGASTRODUODENOSCOPY ( EGD), FLEXIBLE, TRANSORAL, DIAGNOSTIC Recall Stark's esophagus with dysplasia Health Maintenance Due Date Last Done Comments Depression Screening 07/12/2021 07/12/2020 CKD PHOS USE SMARTSET 59325 08/21/2022 10/0 02/2021, 07/12/2020, 03/13/2019, Additional history exists *BISPHONATE OR OTHER ACCEPTABLE MEDICATION NEEDED FOR OSTEOPOROSIS (REFER TO SMARTSET #1146) 10/14/2023 Albumin/Creatinine Ratio 04/22/2024 023, 05/24/2022, 03/26/2022, Additional history exists CKD HGB USE SMARTSET 69253 01/20/202501/20, 01/21/2024, 01/14/2024, Additional history exists TSH [...] D LEVEL ONCE IN A LIFETIME-USE SMARTSET# [id number] Completed 04/22/2023, 08/28/2021, 07/14/2015 Influenza Vaccine (FLU [...] this encounter Medical Devices Implanted Type Area Musical Instrument Supervisor Device Identifier Shelf Expiration Date Model / Serial / Lot Power Port 8fr Sngl Lumen Plas - [id number] Implanted:Qty: 1 on 02/22/2022 at [facility] : PERIPHERAL VASCULAR [id number] 02/15/2023 [id number] / / [id number] documented as of this encounter Visit Diagnoses Diagnosis 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 documented in this encounter Additional Health Concerns Infection Onset Date Last Indicated Resolved Time RSV 01/21/2024 01/21/2024 documented as of this encounter Advance Directives Latest Code Status on File Code Status Date Activated Date Inactivated Comments Full Code 09/03/2007 7:29 AM 09/03/2007 4:02 PM Care Teams Armature Tester Relationship Specialty Start Date End Date Juancho Romero MD [address] [place] [address] [place] [id number] PCP - General Family Medicine 12/27/16 01/19/24 documented as of this encounter
--- NOTE | 2024-01-24 10:51 | Pulmonology Progress Note ---
Date of Service January 24, 2024 Assessment & Plan (1) RSV (respiratory syncytial virus infection): (2) Acute respiratory failure with hypoxia and hypercarbia: (3) Metabolic acidosis: (4) Pulmonary edema cardiac cause: (5) Mitral stenosis and aortic insufficiency: Plan Impression: 88-year-old male with known mitral and aortic valvular heart disease anticoagulated as well as invasive bladder cancer admitted with RSV and diffuse pulmonary infiltrates. I suspect the pulmonary infiltrates and hypoxemic respiratory failure were likely related to elevated filling pressures, mitral stenosis, and potential aggravation by the patient's systemic anticoagulation. He is markedly better now. Recommendations: 1. Fluid overload: Better with diuresis. Await cardiology consultation 2. RSV: Continue supportive care with bronchodilators if the patient's wheezing. No indication for antibiotics or steroids. 3. Pulmonary nodule: With a history of bladder cancer, follow-up imaging is indicated. Recommend repeating his CT scan once his chest x-ray is clear. Would not do the CT scan now as its likely to be obscured by the underlying diffuse parenchymal process. Will check follow-up chest x-ray in a.m. Thanks for the opportunity of evaluating this patient. Feel free to contact us with questions. Admission and Anticipated Discharge Date Admission Date: January 23, 2024 Subjective Patient seen and examined. EMR reviewed. He feels much better with diuresis. He has he is weaning off oxygen. He is not really coughing or expectorating phlegm. Review of Systems 2 Review of Systems: All systems reviewed & are unremarkable except as noted in Subjective Physical Exam 2 Neck: trachea midline, no thyromegaly Respiratory: no respiratory distress, no labored breathing, no cough and not tachypneic Auscultation: + crackles; no wheezes Cardiovascular: Rate/Rhythm: regular rate and regular rhythm Heart Sounds: normal S1, normal S2 and + murmur Extremities: no edema Gastrointestinal (Abdomen): normal bowel sounds, soft, nontender, no hepatosplenomegaly Musculoskeletal: Extremities: extremities normal to inspection Skin: no rashes, warm and dry Lymphatic: no cervical lymphadenopathy Results & Data Results & Data Vital Signs (Past 12 Hours) Vital Signs Temp Pulse Resp BP Pulse Ox O2 Del Method O2 Flow Rate 01/24/24 07:47 36.0 C L 106 H 19 112/84 90 Room Air 01/24/24 07:28 80 19 91 Room Air, Nasal Cannula 01/24/24 04:24 91 H 18 94 Nasal Cannula 2 01/24/24 03:10 36.3 C L 90 25 H 103/76 94 Nasal Cannula 2 Laboratory Results 01/24/24 05:45 01/24/24 05:45 BNP elevated at 1334 Procalcitonin normal at 0.11 Diagnostic Findings Echocardiogram showed moderate concentric LVH with a flattened septum consistent with RV pressure overload. EF of 55-60 with a bioprosthetic aortic valve and a normal gradient. Moderate mitral stenosis is noted with mild MR and a right ventricular systolic pressure of 50-60. IVC was dilated with reduced collapsibility consistent with a right atrial pressure of at least 15. PG Care Time/CCT Total # of Minutes Spent Total Time Spent with Patient: Total time spent is greater than 50% in coordination of care (as documented) at patient's floor/unit and/or counseling patient: Coding Level of Care Code 27311 SUB INP/OBS CARE 2/35MIN Diagnoses RSV (respiratory syncytial virus infection) B33.8 Acute respiratory failure with hypoxia and hypercarbia J96.01; J96.02 Metabolic acidosis E87.20 Pulmonary edema cardiac cause I50.1 Mitral stenosis and aortic insufficiency I08.0
--- NOTE | 2024-01-24 12:10 | Cardiology Consultation ---
Date of Consultation January 24, 2024 Assessment & Plan (1) RSV (respiratory syncytial virus infection): (2) Pneumonia: (3) Asthma: (4) Status post aortic valve replacement: (5) Status post mitral valve repair: (6) Moderate mitral stenosis: (7) Atrial fibrillation: (8) Pacemaker: Device interrogation 01/14/2024 Normal device function estimated battery life 5 years 72% RV pacing Plan Complex 88-year-old male with known valvular heart disease status post aortic valve replacement and mitral valve repair, moderate mitral stenosis. Underlying pulmonary issues include chronic asthmatic lung disease. Patient presents with worsening cough x 6 days with positive RSV swab Still with rhonchorous cough this morning but improving since hospitalization. Exam not consistent significant volume overload . Echocardiogram not changed from prior studies but moderate mitral stenosis prior BNP elevated however not diagnostic in the setting of mitral stenosis/chronic atrial strain Suspect component of mild pulmonary vascular congestion superimposed on viral pneumonia Plan: Respiratory treatment and support Additional dose of furosemide IV today 20 mg follow renal function closely Add low-dose beta-fransico with metoprolol succinate 12.5 mg daily for heart rate control Magnesium supplement History of Present Illness Attending Physician: Tony Cooper MD History of Present Illness Patient is an 88-year-old male with complex ongoing issues which include 1. Valvular heart disease, status post aortic valve replacement and mitral valve repair, 2003, with [place] aortic valve bioprosthesis and a 28 mm [place] mitral valve annular ring. 2. Persistent atrial fibrillation/flutter, status post flutter ablation in 2006 and December 2014, with recurrence, now persistent atrial fibrillation flutter 3. Intrinsic prosthetic aortic valve stenosis, moderate mitral stenosis, post surgical 4. 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 Hypertension. 6. Hyperlipidemia. 7. Chronic arthritic disease, chronic prednisone suppression. 8. Complicated shoulder surgery, September 2014, with bleeding and subsequent hypercoagulable state with pulmonary embolus. 9. 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 10. Status post partial colectomy, 08/08/2015. 11. Chronic anemia receiving iron infusions 12. Bladder carcinoma, Keytruda last received in 04/2023, thereafter discontinued due to concern for myocarditis 13. Hypothyroidism. Patient presents now with acute hypoxic respiratory failure and cough. Notes respiratory infection in October 2023 with resolved. Now with approximately 6 days worsening cough superimposed on chronic dyspnea. Again using nebulizers more frequently at home, taking Mucinex. Outpatient evaluation notable for positive RSV swab01/21/2024 cough and shortness of breath progressed ultimately resulting in hospitalization. Chest x-ray consistent with multi lobe infiltrates versus edema Treated with antibiotics and single dose of IV furosemide with diuresis Patient improved but still with diffuse rhonchorous cough moderate sputum production No fevers chills no bleeding issues. Has been compliant with medications Heart rate higher than usual at home since admission with frequent ventricular ectopy Allergies Allergy/AdvReac Type Severity Reaction Status Date / Time Penicillins Allergy Intermediate RASH/EL-ORBITAL Verified 01/23/24 11:16 EDEMA Home Medications Medication Instructions Recorded Confirmed Type albuterol sulfate 90 mcg/actuation 2 puff inhalation QID PRN Wheezing 03/25/19 01/23/24 History aerosol inhaler clindamycin HCl 300 mg capsule 300 mg PO UD PRN DENTAL 03/25/19 01/23/24 History coenzyme Q10 100 mg capsule 100 mg PO QAM 03/25/19 01/23/24 History (CoQ-10) esomeprazole magnesium 40 mg 40 mg PO BID 03/25/19 01/23/24 History capsule,delayed release (Nexium) magnesium 250 mg tablet 250 mg PO QPM 03/25/19 01/23/24 History polyethylene glycol 3350 17 gram 17 g PO QAM 03/25/19 01/23/24 History oral powder packet (Miralax) prednisone 5 mg tablet 5 mg PO QAM 03/25/19 01/23/24 History rosuvastatin 10 mg tablet (Crestor) 10 mg PO QPM 03/25/19 01/23/24 History warfarin 5 mg tablet 2.5 mg PO QPM 03/25/19 01/23/24 History ferrous sulfate 325 mg (65 mg 325 mg PO QAM 04/25/21 01/23/24 History iron) tablet vitamin B complex (B 1 tab PO QAM 04/25/21 01/23/24 History Complex-Vitamin B12 tablet) cetirizine 10 mg capsule (Zyrtec) 10 mg PO DAILY PRN Allergy Symptoms 07/21/21 01/23/24 History sucralfate 1 gram tablet 1 g PO QID PRN Only after scope 07/21/21 01/23/24 History clotrimazole-betamethasone 1 1 applic topical .qhs #45 grams 07/04/22 01/23/24 Rx %-0.05 % topical cream furosemide 40 mg tablet 40 mg PO DAILY PRN Weight Gain 01/23/24 01/23/24 History levothyroxine 125 mcg tablet 125 mcg PO QAM 01/23/24 01/23/24 History spironolactone 25 mg tablet 12.5 mg PO QAM 01/23/24 01/23/24 History tamsulosin 0.4 mg capsule 0.4 mg PO HS freqency 01/23/24 01/23/24 History tiotropium bromide 2.5 2 puff inhalation DAILY 01/23/24 01/23/24 History mcg/actuation mist for inhalation (Spiriva Respimat) zolpidem 5 mg tablet 5 mg PO HS 01/23/24 01/23/24 History Patient History Medical History (Updated 01/24/24 @ 12:29 by Andres Rainey MD) Asthma Chronic steroid use CKD (chronic kidney disease), stage III Osteoarthritis Bladder cancer dx 05/2021; TURBT, chemo + radiation Bladder tumor History of basal cell carcinoma History of rectal fissure History of COVID-19 DX'D 10/2020 [facility]RU [facility]-SOB, PRODUCTIVE COUGH, BODY ACHES, FEVER-RECOVERED AT HOME-SYMPTOMS RESOLVED SOB (shortness of breath) on exertion Arthritis Anticoagulated on Coumadin Heart disease Prostatitis Stark's esophagus GERD (gastroesophageal reflux disease) History of pulmonary embolism FOLLOWING SHOULDER SURGERY APPROX 5 YEARS -NO ISSUES SINCE Pacemaker TACHY-PB SYNDROME. ALSO HX OF A-FIB. LAST CHECKED 11/2021 - [facility] Atrial fibrillation DX 2003 - ON WARFARIN; follows with Dr. Rainey Tachy-pb syndrome History of atrial flutter Restless legs syndrome Dyslipidemia Carotid artery disease History of prostate cancer "had elevated PSA with + biopsy, but repeat biopsies and subsequent PSA's improved" On 11/18/16 10:00 Randy Gilbert wrote "2007" Spinal stenosis of lumbar region History of paroxysmal supraventricular tachycardia BPH (benign prostatic hypertrophy) Diverticular disease of colon COPD (chronic obstructive pulmonary disease) Hypertension Surgical History (Updated 01/23/24 @ 13:27 by Ayla Gilbert PA-C) Status post mitral valve repair Status post aortic valve replacement "bioprosthetic" History of bladder surgery TURBT 05/29/2021 [facility] History of esophagogastroduodenoscopy (EGD) MULTIPLE History of tonsillectomy History of total knee replacement LEFT KNEE History of herniorrhaphy History of surgery MOHS PROCEDURE ON FACE History of colonoscopy History of bowel resection S/T DIVERTICULITIS History of arthroscopy B/L SHOULDERS History of cardiovascular surgery MITRAL VALVE REPAIR-[facility] [place] 2003 History of heart valve replacement AORTIC VALVE REPLACEMENT (TISSUE)-[facility] [place] 2003 Status post inguinal hernia repair Status post cataract extraction Family History Brother Diabetes Cancer Mother Colorectal cancer Lung cancer Social History Smoking Status: Never smoker Tobacco Type: Smokeless Tobacco (Dip or Chew) Cigarettes Per Day: 0; Second Hand Exposure: No; Do You Dip or Chew Tobacco: Yes (1 can every 3-4 days); Hx Alcohol Use: No Hx Substance Use: No Preferred Language: Moroccan Communication Ability: Effective Wire Weaver Cloth Required: No Beliefs That Will Affect Care: None marital status: Current Living Situation: Spouse current occupational status: retired Feels Safe at Home: Yes Diet: regular caffeine: No during the past year weight has: remained stable Physical Activity Frequency: Other Physical Activity Frequency Comment: "Does alot of yard work" Assistive Devices: Oxygen - Continuous Review of Systems Review of Systems: All systems reviewed & are unremarkable except as noted in HPI & below Physical Exam Constitutional: + thin; no acute distress Eyes: PERRL, conjunctivae normal, anicteric sclerae ENMT: external ear and nose normal, oropharynx normal Neck: trachea midline, no thyromegaly Respiratory: + cough Auscultation: + rhonchi Cardiovascular: Rate/Rhythm: + tachycardic and + irregularly irregular Heart Sounds: + murmur (Grade 2 or 6 systolic, no diastolic) Vessels: no JVD Extremities: no edema Gastrointestinal (Abdomen): normal bowel sounds, soft, nontender, no hepatosplenomegaly Results & Data Vital Signs (Past 12 Hours) Vital Signs Temp Pulse Resp BP Pulse Ox O2 Del Method O2 Flow Rate 01/24/24 11:09 103 H 24 96 Nasal Cannula 2 01/24/24 08:45 Nasal Cannula 2 03/08/24 07:47 36.0 C L 106 H 19 112/84 90 Room Air 01/24/24 07:28 80 19 91 Room Air, Nasal Cannula 01/24/24 04:24 91 H 18 94 Nasal Cannula 2 01/24/24 03:10 36.3 C L 90 25 H 103/76 94 Nasal Cannula 2 Laboratory Results Laboratory Results - last 24 hr 01/23/24 01/23/24 01/23/24 10:08 12:04 12:22 WBC RBC Hgb Hct MCV MCH MCHC RDW Std Deviation RDW Coeff of Humberto Plt Count MPV Platelet Estimate PT 40.7 H INR 4.1 H ABG pH Cancelled ABG pCO2 Cancelled ABG pO2 Cancelled ABG HCO3 Cancelled ABG O2 Saturation Cancelled ABG Base Excess Cancelled Luis Test Cancelled VBG pH 7.36 VBG pCO2 41 VBG pO2 33 VBG HCO3 23 VBG O2 Saturation < 60.0 VBG Base Excess -2.2 Barometric Pressure Cancelled Oxygen Given Cancelled Sodium Potassium Chloride Carbon Dioxide Anion Gap BUN Creatinine Est Cr Clr Drug Dosing Est GFR ( Amer) Est GFR (Non-Af Amer) BUN/Creatinine Ratio Glucose Calcium Magnesium B-Natriuretic Peptide Procalcitonin 0.11 01/23/24 01/24/24 13:04 05:45 WBC 4.99 RBC 3.40 L Hgb 9.6 L Hct 32.1 L MCV 94.4 MCH 28.2 MCHC 29.9 L RDW Std Deviation 59.9 H RDW Coeff of Humberto 17.2 H Plt Count 80 L MPV 11.1 Platelet Estimate Decreased L PT 33.8 H INR 3.3 H ABG pH ABG pCO2 ABG pO2 ABG HCO3 ABG O2 Saturation ABG Base Excess Luis Test VBG pH VBG pCO2 VBG pO2 VBG HCO3 VBG O2 Saturation VBG Base Excess Barometric Pressure Oxygen Given Sodium 137 Potassium 4.3 Chloride 106 Carbon Dioxide 24 Anion Gap 7 BUN 46 H Creatinine 1.64 H Est Cr Clr Drug Dosing 27.1 Est GFR ( Amer) 43.2 Est GFR (Non-Af Amer) 37.3 BUN/Creatinine Ratio 28.0 H Glucose 84 Calcium 8.5 L Magnesium 1.9 B-Natriuretic Peptide 1334 H Procalcitonin Diagnostic Findings Echocardiogram 01/23/2024 Left ventricle is normal in size There is moderate left hypertrophy Apical wall motion abnormality present secondary to pacemaker activation The interventricular septum is flattened consistent with RV pressure overload No other wall motion abnormalities EF 55-60% Normally functioning bioprosthetic aortic valve Mitral valve status post annuloplasty ring and repair with thickening of the leaflets and restricted mobility Moderate mitral stenosis Mild mitral and tricuspid insufficiency Elevated pulmonary pressures RV systolic pressure 50-60 mm aliyah EKG 01/23/2024 Persistent atrial fibrillation flutter with ventricular bigeminy, rate [address] 01/03/2024 EXAM: CT CHEST/ABDOMEN/PELVIS WO IV CONTRAST WO ORAL CONTRAST DATE and TIME: 01/03/2024 - 01/03/2024 10:44 am HISTORY Surveillance recurrent urothelial carcinoma of bladder, f/u RML nodule TECHNIQUE Oral Contrast: Oral contrast was not administered. IV Contrast: No IV contrast was used. CT chest/abdomen/pelvis Some processes may not be seen without contrast COMPARISON 11/01/2023, 09/25/2023, 12/08/2020 FINDINGS CHEST: LINES AND DEVICES: Left chest wall generator with right ventricular pacing lead. Right IJ MediPort tip is in the right atrium. LUNGS: Stable right middle lobe 6 x 6 mm pulmonary nodule image 156 series 14. Unchanged 24 x 10 mm pleural based opacity right lower lobe adjacent to old healed rib fracture. LARGE AIRWAYS: Airways are patent. No filling defects. PLEURA: Small bilateral pleural effusions are decreased from 11/01/2023. bilateral calcified pleural plaques consistent with a specific exposure, unchanged. VESSELS: AVR. Mitral annular calcifications.Atherosclerotic changes in the aorta and coronary arteries. HEART: Cardiomegaly. No pericardial effusion. Median sternotomy. MEDIASTINUM AND ESTEPHANIA: Stable shotty left para-aortic lymph node. CHEST WALL/SOFT TISSUES: Within normal limits. BONES: Old right rib fractures. Degenerative changes in the spine. Median sternotomy. ABDOMEN/PELVIS: LINES AND DEVICES: None LIVER: Enlarged hepatic veins suggesting hepatic venous congestion. No change. BILE DUCTS: Within normal limits. GALLBLADDER: Small gallstones are present dependently in the gallbladder. No acute inflammatory changes. PANCREAS: Within normal limits. SPLEEN: Mild splenomegaly, similar to prior exam. ADRENALS: Within normal limits. KIDNEYS/URETERS: Within normal limits. BLADDER: Within normal limits. BOWEL: Postsurgical changes with subtotal colectomy, unchanged. Posterior gastric fundal diverticulum. No bowel obstruction or acute bowel abnormality is appreciated. LYMPH NODES: No lymphadenopathy. VESSELS: Atherosclerotic changes. Stable ectasia of the abdominal aorta. Stable dilatation of the common iliac arteries, 22 stable ectasia of the left internal iliac artery 18 mm. Mm on the right and 19 mm on the left. REPRODUCTIVE ORGANS: Enlarged prostate PERITONEUM/RETROPERITONEUM: No abscess, ascites, or free air. ABDOMINAL WALL/SOFT TISSUES: Unchanged fat containing right lumbar triangle rubina ia. Small fatty left inguinal hernia. 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 Degenerative changes are present in the spine. There are mild degenerative changes about the hips. IMPRESSION IMPRESSION Stable 6 mm right middle lobe pulmonary nodule. Stable right lower lobe pleural based opacity adjacent to healed rib fracture, 24 x 10 mm. No definite metastatic disease is appreciated in the chest, abdomen, or pelvis. Other stable chronic and incidental findings as above.
[2024-01-24] MEDS: FUROSEMIDE INJ 20 MG/2 ML VIAL IV ONE (13:17)
[2024-01-24] MEDS: METOPROLOL SUCC 25MG EXT REL TAB PO SCH (13:17)
[2024-01-24] MEDS: MAGNESIUM OXIDE 400 MG TAB PO SCH (13:18)
[2024-01-24] MEDS: NICOTINE 14 MG/24 HR PATCH TD SCH (16:50)
--- NOTE | 2024-01-24 19:54 | Hospitalist Progress Note ---
Date of Service January 24, 2024 Assessment & Plan (1) Acute respiratory failure with hypoxia and hypercarbia: (2) Metabolic acidosis: (3) RSV (respiratory syncytial virus infection): (4) Atrial fibrillation: (5) Status post aortic valve replacement: (6) Status post mitral valve repair: (7) Chronic steroid use: (8) Osteoarthritis: (9) CKD (chronic kidney disease), stage III: Plan: Acute on chronic respiratory failure with hypoxia and hypercarbia Metabolic acidosis Moderate persistent asthma COPD RSV infection Nocturnal Hypoxemia--on 2L HS Volume overload/pulmonary edema--POA --CXR:Cardiomegaly and cardiac pacemaker without evidence of congestive failure. Bilateral airspace opacities likely represent pulmonary edema. Correlate clinically for evidence of a superimposed pneumonia. Radiographic follow-up to resolution is recommended. Suspect small pleural effusions -- BioFire positive for RSV --Normal procalcitonin, elevated BNP Lactate 3.2 improved to 1.8 with BiPAP Currently saturating well on 2 L supplemental oxygen. Titrate oxygen to keep oxygen sats 88 to 92% given COPD No indication for antibiotics currently Appreciate cardiology, pulmonology input Cautious use of IV diuretics Continue nebs Monitor volume status closely Persistent Atrial Fibrillation Supratherapeutic INR Acute on chronic diastolic heart failure, likely secondary to RSV viral illness Hx Tachy/Pb Syndrome s/p Pacemaker S/p aortic Valve replacement, [place]ov[place] valve Hx of mitral valve repair HTN HLD --ECHO: Left ventricle is normal in size. Moderate concentric LVH. Apical wall motion abnormality may reflect pacemaker activation. Flattened septum is consistent with RV pressure overload. EF 55 to 60%. Bioprosthetic aortic valve. Gradient is normal for prosthetic aortic valve. Annuloplasty ring and prior mitral valve repair is present with thickening of the mitral valve leaflets. Moderate mitral stenosis is present. Mild mitral and tricuspid regurgitation. Right ventricular systolic pressure is elevated to be 50 to 60 mmHg. 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, cystoscope pending for January DVT px: Supratherapeutic INR Resume Coumadin likely tomorrow CODE status: FULL CODE Disposition To be determined 9 Admission and Anticipated Discharge Date Admission Date: January 23, 2024 Subjective Patient is seen and examined at bedside Shortness of breath slightly better when compared yesterday Still has persistent cough Reports some discomfort at Gabriel catheter site Discussed with patient's family at bedside No other complaints Review of Systems Review of Systems: All systems reviewed & are unremarkable except as noted in Subjective Physical Exam Physical Exam: Physical Exam: Vitals signs as noted above General Appearance:Thin, no apparent distress, Elderly Head: normocephalic, Atraumatic Eyes: normal inspection, EOMI Neck: supple, Trachea midline Respiratory/Chest: B/L coarse breath sound, +rhonchi and wheezes, No accessory muscle use Cardiovascular: Irregularly irregular, + murmur Abdomen/GI:Soft, Non tender, Bowel sounds present Extremities/Musculoskeletal:normal inspection, no edema Neurologic/Psych:AAOX3, grossly no focal neurological deficits, decreased hearing Skin: normal color, warm Results & Data Results & Data Vital Signs (Past 12 Hours) Vital Signs Temp Pulse Resp BP Pulse Ox Pulse Ox O2 Del Method 01/24/24 15:50 36.3 C L 69 22 105/71 94 Oxymask 01/24/24 15:04 92 01/24/24 15:04 81 23 96 Nasal Cannula 01/24/24 11:09 103 H 24 96 Nasal Cannula 01/24/24 11:00 36.2 C L 83 17 104/61 95 Nasal Cannula 01/24/24 08:45 Nasal Cannula O2 Flow Rate O2 Flow Rate 01/24/24 15:50 2 01/24/24 15:04 2 01/24/24 15:04 2 01/24/24 11:09 2 01/24/24 11:00 2 01/24/24 08:45 2
[2024-01-25 07:15] LABS: Hematocrit (blood only) 32.9 % (42.0-52.0); Hemoglobin 9.9 g/dl (14.0-18.0); Mean Corpuscular Hemoglobin 28.4 pg (25.0-34.0); Mean Corpuscular Hgb Conc 30.1 g/dL (32.0-36.0); Mean Corpuscular Volume 94.3 fL (80.0-100.0); Mean Platelet Volume 11.6 fL (9.4-12.4); Platelet Count 104 K/uL (130-400); RDW Coefficient of Variation 16.9 % (11.5-14.5); RDW Standard Deviation 57.8 fL (36.4-46.3); Red Blood Count 3.49 M/uL (4.70-6.10); White Blood Count 4.78 K/ul (4.8-10.8)
[2024-01-25 07:40] LABS: BUN Creatinine Ratio 29.6 (10-20); Calcium 8.5 mg/dl (8.6-10.3); Creatinine Clr Calc Pharmacy 32.9 ml/min; Est GFR (African American) 54.7 ml/min; Est GFR (Non-African American) 47.2 ml/min; Potassium 3.8 mmol/L (3.5-5.1)
[2024-01-25 07:45] LABS: INR 2.6 (0.9-1.1); Prothrombin Time 26.8 Seconds (9.0-12.0)
--- NOTE | 2024-01-25 07:57 | Pulmonology Progress Note ---
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 I suspect the pulmonary infiltrates and hypoxemic respiratory failure were likely related to elevated filling pressures, mitral stenosis, and potential aggravation by the patient's systemic anticoagulation. He continues to show significant improvement Recommendations: 1. Fluid overload: Better with diuresis. I suspect that some of his pulmonary infiltrates were related to fluid overload versus pulmonary hemorrhage given their rapid clearance. 2. RSV: Patient is currently is receiving nebulized Perforomist and budesonide. These can be continued if the patient feels they are clinically beneficial. They will not likely need to be continued in the long-term. Transition DuoNebs to as needed. No current indication for antibiotics or steroids. 3. Pulmonary nodule: With a history of bladder cancer, follow-up imaging is indicated. Recommend repeating his CT scan once his chest x-ray is clear. Would not do the CT scan now as its likely to be obscured by the underlying diffuse parenchymal process. Will check follow-up chest x-ray in a.m. 4. Hypoxemia: Secondary to #1 and #2. Wean oxygen as tolerated. The patient may require a formal two-step evaluation to determine whether or not supplemental oxygen is required going home. PT recommending rehab Thanks for the opportunity of evaluating this patient. Pulmonary will sign off at this point in time. Feel free to contact us with questions. Admission and Anticipated Discharge Date Admission Date: January 23, 2024 Subjective Patient seen and examined. EMR reviewed. The patient is sitting up having breakfast in a chair this morning. He states he feels congested in his chest. His cough is no longer productive. He is experiencing slight wheezing but overall feels like he is improving. Review of Systems 2 Review of Systems: All systems reviewed & are unremarkable except as noted in Subjective Physical Exam 2 Neck: trachea midline, no thyromegaly Respiratory: no respiratory distress, no labored breathing, no cough and not tachypneic Auscultation: + crackles and + wheezes Cardiovascular: Rate/Rhythm: regular rate and regular rhythm Heart Sounds: normal S1, normal S2 and + murmur Extremities: no edema Gastrointestinal (Abdomen): normal bowel sounds, soft, nontender, no hepatosplenomegaly Musculoskeletal: Extremities: extremities normal to inspection Skin: no rashes, warm and dry Lymphatic: no cervical lymphadenopathy Results & Data Results & Data Vital Signs (Past 12 Hours) Vital Signs Temp Pulse Pulse Resp BP BP Pulse Ox 01/25/24 07:16 75 29 H 94 01/25/24 07:14 63 01/25/24 03:02 36.6 C 66 22 104/63 96 01/25/24 00:01 112/61 01/25/24 00:01 77 18 98 01/24/24 23:20 36.3 C L 76 22 91/39 L 99 01/24/24 20:30 01/24/24 19:53 79 18 98 O2 Del Method O2 Flow Rate 01/25/24 07:16 Nasal Cannula 2 01/25/24 07:14 01/25/24 03:02 Nasal Cannula 2 01/25/24 00:01 01/25/24 00:01 Nasal Cannula 2 01/24/24 23:20 Nasal Cannula 2 01/24/24 20:30 Nasal Cannula 2 01/24/24 19:53 Nasal Cannula 2 Laboratory Results 01/25/24 06:27 01/25/24 06:27 Diagnostic Findings Chest x-ray performed today was independently reviewed. There are demonstrates significant clearing of the bilateral pulmonary infiltrates. PG Care Time/CCT Total # of Minutes Spent Total Time Spent with Patient: Total time spent is greater than 50% in coordination of care (as documented) at patient's floor/unit and/or counseling patient: Coding Level of Care Code 83923 SUB INP/OBS CARE 2/35MIN Diagnoses RSV (respiratory syncytial virus infection) B33.8 Acute respiratory failure with hypoxia and hypercarbia J96.01; J96.02 Metabolic acidosis E87.20 Pulmonary edema cardiac cause I50.1 Mitral stenosis and aortic insufficiency I08.0
--- NOTE | 2024-01-25 09:25 | XRay Report ---
XR chest 1V portable CLINICAL HISTORY: hypoxemia TECHNIQUE: Single frontal radiograph of the chest was obtained. Comparison: Comparison is made to chest radiograph 01/23/2024 FINDINGS: Median sternotomy wires are unchanged. Aortic valvular prosthesis is seen. Calcified aortic knob is s een. A port catheter is noted. Multifocal airspace opacities have somewhat improved from prior exam. Prominence and cephalization of the vasculature is seen. No evidence of pleural effusion or pneumotho rax. IMPRESSION: Cardiomegaly and mild pulmonary edema. Multifocal airspace opacities have somewhat improved from prio r exam. ACT 112: Negative or not required by law. Electronically signed by: Sebastian Nicole M.D. 01/25/2024 9:24 AM
--- NOTE | 2024-01-25 12:29 | Cardiology Progress Note ---
Date of Service January 25, 2024 Assessment & Plan (1) RSV (respiratory syncytial virus infection): (2) Pneumonia: (3) Asthma: (4) Status post aortic valve replacement: (5) Status post mitral valve repair: (6) Moderate mitral stenosis: (7) Atrial fibrillation: (8) Pacemaker: Plan: Device interrogation 01/14/2024 Normal device function estimated battery life 5 years 72% RV pacing Plan Complex 88-year-old male with known valvular heart disease status post aortic valve replacement and mitral valve repair, moderate mitral stenosis. Underlying pulmonary issues include chronic asthmatic lung disease. Patient presents with worsening cough x 6 days with positive RSV swab Still with rhonchorous cough this afternoon. Suspect component of mild pulmonary vascular congestion superimposed on viral pneumonia Pulmonary input noted and appreciated. Renal function improved 01/24 compared to 01/24/24. INR at goal , 2.6 . Plan: Respiratory treatment and support Additional dose of furosemide IV today 20 mg follow renal function closely metoprolol succinate 12.5 mg daily for heart rate control Magnesium supplement Meka Meredith DO Admission and Anticipated Discharge Date Admission Date: January 23, 2024 Subjective Patient seen in follow-up. Still with rhonchorous cough but he thinks he feels better compared to 2 days ago. Telemetry reveals atrial fibrillation with occasional demand ventricular pacing, rate in the 60s. Physical Exam Constitutional: + thin; no acute distress Eyes: PERRL, conjunctivae normal, anicteric sclerae ENMT: external ear and nose normal, oropharynx normal Neck: trachea midline, no thyromegaly Respiratory: + cough Auscultation: + rhonchi Cardiovascular: Rate/Rhythm: + tachycardic and + irregularly irregular Heart Sounds: + murmur (Grade 2 or 6 systolic, no diastolic) Vessels: no JVD Extremities: no edema Chest (Breasts): Additional Comments: Left infraclavicular pacemaker pocket, clean dry and intact. Gastrointestinal (Abdomen): normal bowel sounds, soft, nontender, no hepatosplenomegaly Results & Data Vital Signs (Past 12 Hours) Vital Signs Temp Pulse Pulse Resp BP BP Pulse Ox 01/25/24 11:27 36.3 C L 72 19 115/62 96 01/25/24 08:20 01/25/24 07:40 36.3 C L 74 21 107/43 L 90 01/25/24 07:16 75 29 H 94 01/25/24 07:14 63 01/25/24 03:02 36.6 C 66 22 104/63 96 O2 Del Method O2 Flow Rate 01/25/24 11:27 Room Air 01/25/24 08:20 Nasal Cannula 2 01/25/24 07:40 Nasal Cannula 2 01/25/24 07:16 Nasal Cannula 2 01/25/24 07:14 01/25/24 03:02 Nasal Cannula 2 Laboratory Results Coagulation 01/25/24 Range/Units 06:27 PT 26.8 H (9.0-12.0) Seconds CBC 01/25/24 Range/Units 06:27 WBC 4.78 L (4.8-10.8) K/ul RBC 3.49 L (4.70-6.10) M/uL Hgb 9.9 L (14.0-18.0) g/dl Hct 32.9 L (42.0-52.0) % Plt Count 104 L (130-400) K/uL Comprehensive Metabolic Panel 01/25/24 Range/Units 06:27 Sodium 136 (136-145) mmol/L Potassium 3.8 (3.5-5.1) mmol/L Chloride 101 (98-107) mmol/L Carbon Dioxide 28 (21-32) mmol/L BUN 40 H (6-23) mg/dl Creatinine 1.35 (0.6-1.4) mg/dl Glucose 76 (70-99(Fasting)) mg/dl Calcium 8.5 L (8.6-10.3) mg/dl
[2024-01-25] MEDS: FUROSEMIDE INJ 20 MG/2 ML VIAL IV ONE (13:13)
--- NOTE | 2024-01-25 14:54 | Hospitalist Progress Note ---
Date of Service January 25, 2024 Assessment & Plan (1) Acute respiratory failure with hypoxia and hypercarbia: (2) Metabolic acidosis: (3) RSV (respiratory syncytial virus infection): (4) Atrial fibrillation: (5) Status post aortic valve replacement: (6) Status post mitral valve repair: (7) Chronic steroid use: (8) Osteoarthritis: (9) CKD (chronic kidney disease), stage III: Plan: Acute on chronic respiratory failure with hypoxia and hypercarbia Metabolic acidosis Moderate persistent asthma COPD RSV infection Nocturnal Hypoxemia--on 2L HS Volume overload/pulmonary edema--POA --CXR:Cardiomegaly and cardiac pacemaker without evidence of congestive failure. Bilateral airspace opacities likely represent pulmonary edema. Correlate clinically for evidence of a superimposed pneumonia. Radiographic follow-up to resolution is recommended. Suspect small pleural effusions -- BioFire positive for RSV --Normal procalcitonin, elevated BNP Lactate 3.2 improved to 1.8 with BiPAP Currently saturating well on 2 L supplemental oxygen. Titrate oxygen to keep oxygen sats 88 to 92% given COPD No indication for antibiotics currently Appreciate cardiology, pulmonology input Cautious use of IV diuretics per cardiology Continue nebs Monitor volume status closely Clinically showing improvement Received a dose of Lasix 20 mg today CXR today showed some improvement of opacities Persistent Atrial Fibrillation Supratherapeutic INR Acute on chronic diastolic heart failure, likely secondary to RSV viral illness Hx Tachy/Pb Syndrome s/p Pacemaker S/p aortic Valve replacement, Bovine valve Hx of mitral valve repair HTN HLD --ECHO: Left ventricle is normal in size. Moderate concentric LVH. Apical wall motion abnormality may reflect pacemaker activation. Flattened septum is consistent with RV pressure overload. EF 55 to 60%. Bioprosthetic aortic valve. Gradient is normal for prosthetic aortic valve. Annuloplasty ring and prior mitral valve repair is present with thickening of the mitral valve leaflets. Moderate mitral stenosis is present. Mild mitral and tricuspid regurgitation. Right ventricular systolic pressure is elevated to be 50 to 60 mmHg. 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, cystoscope pending for January DVT px: Coumadin CODE status: FULL CODE Disposition PT OT prior to discharge Admission and Anticipated Discharge Date Admission Date: January 23, 2024 Subjective Patient is seen and examined at bedside Sitting in chair comfortably during my encounter Less cough, dyspnea today States feeling better after Lasix yesterday Denies any chest pain, nausea, vomiting, abdominal pain No other complaints Review of Systems Review of Systems: All systems reviewed & are unremarkable except as noted in Subjective Physical Exam Physical Exam: Physical Exam: Vitals signs as noted above General Appearance:Thin, no apparent distress, Elderly Head: normocephalic, Atraumatic Eyes: normal inspection, EOMI Neck: supple, Trachea midline Respiratory/Chest: B/L coarse breath sound, +rhonchi and wheezes, No accessory muscle use Cardiovascular: Irregularly irregular, + murmur Abdomen/GI:Soft, Non tender, Bowel sounds present Extremities/Musculoskeletal:normal inspection, no edema Neurologic/Psych:AAOX3, grossly no focal neurological deficits, decreased hearing Skin: normal color, warm Results & Data Results & Data Vital Signs (Past 12 Hours) Vital Signs Temp Pulse Pulse Resp BP BP Pulse Ox 01/25/24 11:27 36.3 C L 72 19 115/62 96 01/25/24 08:20 01/25/24 07:40 36.3 C L 74 21 107/43 L 90 01/25/24 07:16 75 29 H 94 01/25/24 07:14 63 01/25/24 03:02 36.6 C 66 22 104/63 96 O2 Del Method O2 Flow Rate 01/25/24 11:27 Nasal Cannula 2 01/25/24 08:20 Nasal Cannula 2 01/25/24 07:40 Nasal Cannula 2 01/25/24 07:16 Nasal Cannula 2 01/25/24 07:14 01/25/24 03:02 Nasal Cannula 2 Laboratory Results Short CBC 01/25/24 Range/Units 06:27 WBC 4.78 L (4.8-10.8) K/ul Hgb 9.9 L (14.0-18.0) g/dl Hct 32.9 L (42.0-52.0) % Plt Count 104 L (130-400) K/uL [facility] 01/25/24 06:27 Sodium 136 Potassium 3.8 Chloride 101 Carbon Dioxide 28 BUN 40 H Creatinine 1.35 Glucose 76 Calcium 8.5 L
[2024-01-25] MEDS: WARFARIN SOD 2 MG TAB PO SCH (15:53)
[2024-01-25] MEDS: MELATONIN 3 MG TAB PO PRN (21:19)
[2024-01-26 04:41] LABS: Base Excess VBG 2.7 mEq/L; HCO3 VBG 28 mmol/L; Oxygen Saturation VBG 86.7 %; PCO2 VBG 44 mmHg (38-50); PO2 VBG 55 mmHg; pH VBG 7.41 (7.36-7.41)
[2024-01-26 04:54] LABS: Hematocrit (blood only) 32.1 % (42.0-52.0); Mean Corpuscular Hemoglobin 28.2 pg (25.0-34.0); Mean Corpuscular Hgb Conc 31.2 g/dL (32.0-36.0); Mean Corpuscular Volume 90.7 fL (80.0-100.0); Mean Platelet Volume 11.1 fL (9.4-12.4); Platelet Count 116 K/uL (130-400); RDW Coefficient of Variation 16.2 % (11.5-14.5); RDW Standard Deviation 54.6 fL (36.4-46.3); Red Blood Count 3.54 M/uL (4.70-6.10); White Blood Count 4.82 K/ul (4.8-10.8)
[2024-01-26 05:21] LABS: Calcium 8.4 mg/dl (8.6-10.3); Magnesium 1.9 mg/dl (1.7-2.4); Potassium 4.2 mmol/L (3.5-5.1)
[2024-01-26 05:23] LABS: INR 2.1 (0.9-1.1); Prothrombin Time 22.2 Seconds (9.0-12.0)
[2024-01-26 05:27] LABS: BUN Creatinine Ratio 31.2 (10-20); Creatinine Clr Calc Pharmacy 32.2 ml/min; Est GFR (African American) 53.3 ml/min
[2024-01-26 06:03] LABS: Appearance Urine Clear (Clear); Bacteria Urine Automated Negative (Negative); Bilirubin Urine Negative (Negative); Blood Urine 1+ (Negative); Cast Urine Automated 0 /lpf (0-5); Color Urine Yellow; Glucose Urine UA Negative (Negative); Ketones Urine Negative (Negative); Leukocyte Esterase Urine Trace (Negative); Nitrite Urine Negative (Negative); Protein Urine 1+ (Negative); Specific Gravity Urine 1.026 (1.000-1.030); Urobilinogen Urine Negative (Negative); pH Urine 5.5 (4.5-7.5)
--- NOTE | 2024-01-26 06:30 | Communication Note ---
Date of Service: January 26, 2024 Patient noted to be more confused and with visual hallucinations as per RN. Confusion progressing the last couple of days as per RN. BSG 140s No respiratory distress Increased urinary frequency without flank complaints as per RN UA trace WBC esterase AP Encephalopathy Possible UTI Urine CS, Ceftriaxone for now
[2024-01-26] MEDS: ALBUMIN 25% 12.5 GM/50 ML VIAL IV ONE (06:34)
[2024-01-26] MEDS: cefTRIAXone SODIUM 2,000 MG in DEXTROSE 5 % MINI-B 50 ML IV SCH (07:26)
--- NOTE | 2024-01-26 16:04 | Cardiology Progress Note ---
Date of Service January 26, 2024 Assessment & Plan (1) RSV (respiratory syncytial virus infection): (2) Pneumonia: (3) Asthma: (4) Status post aortic valve replacement: (5) Status post mitral valve repair: (6) Moderate mitral stenosis: (7) Atrial fibrillation: (8) Pacemaker: Plan: Device interrogation 01/14/2024 Normal device function estimated battery life 5 years 72% RV pacing Plan Complex 88-year-old male with known valvular heart disease status post aortic valve replacement and mitral valve repair, moderate mitral stenosis. Underlying pulmonary issues include chronic asthmatic lung disease. Patient presents with worsening cough x 6 days with positive RSV swab Still with rhonchorous cough this afternoon. Suspect component of mild pulmonary vascular congestion superimposed on viral pneumonia Pulmonary input noted and appreciated. Renal function improved 01/24 compared to 01/24/24. INR at goal , 2.1. Plan: Respiratory treatment and support metoprolol succinate 12.5 mg daily for heart rate control No furosemide today, 01/26/24. Meka Meredith DO Admission and Anticipated Discharge Date Admission Date: January 23, 2024 Subjective Patient seen in cardiology follow-up. Still with cough. Telemetry reveals controlled atrial fibrillation with occasional ventricular pacing in the 60s. Physical Exam Constitutional: + thin; no acute distress Eyes: PERRL, conjunctivae normal, anicteric sclerae ENMT: external ear and nose normal, oropharynx normal Neck: trachea midline, no thyromegaly Respiratory: + cough Auscultation: + rhonchi Cardiovascular: Rate/Rhythm: + irregularly irregular Heart Sounds: + murmur (Grade 2 or 6 systolic, no diastolic) Vessels: no JVD Extremities: no edema Gastrointestinal (Abdomen): normal bowel sounds, soft, nontender, no hepatosplenomegaly Results & Data Vital Signs (Past 12 Hours) Vital Signs Temp Pulse Resp BP BP Pulse Ox O2 Del Method 01/26/24 11:52 36.4 C L 82 19 105/63 96 Room Air 01/26/24 08:54 107/53 L 01/26/24 07:55 Room Air 01/26/24 07:52 97/42 L 01/26/24 07:51 96/47 L 01/26/24 07:48 36.3 C L 68 18 93/55 L 92 Room Air 01/26/24 07:15 60 16 99 Room Air 01/26/24 04:08 36.5 C 64 22 122/54 L 95 Nasal Cannula O2 Flow Rate 01/26/24 11:52 01/26/24 08:54 01/26/24 07:55 01/26/24 07:52 01/26/24 07:51 01/26/24 07:48 01/26/24 07:15 01/26/24 04:08 2 Laboratory Results Coagulation 01/26/24 Range/Units 04:24 PT 22.2 H (9.0-12.0) Seconds INR: 2.1 CBC 01/26/24 Range/Units 04:24 WBC 4.82 (4.8-10.8) K/ul RBC 3.54 L (4.70-6.10) M/uL Hgb 10.0 L (14.0-18.0) g/dl Hct 32.1 L (42.0-52.0) % Plt Count 116 L (130-400) K/uL Comprehensive Metabolic Panel 01/26/24 Range/Units 04:24 Sodium 134 L (136-145) mmol/L Potassium 4.2 (3.5-5.1) mmol/L Chloride 100 (98-107) mmol/L Carbon Dioxide 28 (21-32) mmol/L BUN 43 H (6-23) mg/dl Creatinine 1.38 (0.6-1.4) mg/dl Glucose 110 H (70-99(Fasting)) mg/dl Calcium 8.4 L (8.6-10.3) mg/dl Intake and Output 01/26/24 01/26/24 01/26/24 06:59 14:59 22:59 Intake Total 100 / 100 Output Total 150 / 150 Balance -50 / -50 Intake: IV 100 / 100 Albumin 25% 12.5 gm In 50 ml @ 50 / 50 50 mls/hr IV ONE ONE Rx#: [id number] cefTRIAXone SODIUM 2,000 mg In 50 / 50 Dextrose 5 % Mini-B 50 ml @ 100 mls/hr IV Q24H [facility] Rx#: [id number] Oral Output: Urine 150 / 150 Other: Weight 61.377 kg Weight Measurement Method Standing Scale Patient Weight 01/27/24 06:59 Weight 61.377 kg
--- NOTE | 2024-01-26 16:18 | Hospitalist Progress Note ---
Date of Service January 26, 2024 Assessment & Plan (1) Acute respiratory failure with hypoxia and hypercarbia: (2) Metabolic acidosis: (3) RSV (respiratory syncytial virus infection): (4) Atrial fibrillation: (5) Status post aortic valve replacement: (6) Status post mitral valve repair: (7) Chronic steroid use: (8) Osteoarthritis: (9) CKD (chronic kidney disease), stage III: Plan: Acute on chronic respiratory failure with hypoxia and hypercarbia Metabolic acidosis Moderate persistent asthma COPD RSV infection Nocturnal Hypoxemia--on 2L HS Volume overload/pulmonary edema--POA --CXR:Cardiomegaly and cardiac pacemaker without evidence of congestive failure. Bilateral airspace opacities likely represent pulmonary edema. Correlate clinically for evidence of a superimposed pneumonia. Radiographic follow-up to resolution is recommended. Suspect small pleural effusions -- BioFire positive for RSV --Normal procalcitonin, elevated BNP Lactate 3.2 improved to 1.8 with BiPAP No indication for antibiotics currently Appreciate cardiology, pulmonology input Cautious use of IV diuretics per cardiology Continue nebs Monitor volume status closely Weaned off of supplemental oxygen PT OT prior to discharge Persistent Atrial Fibrillation Supratherapeutic INR Acute on chronic diastolic heart failure, likely secondary to RSV viral illness Hx Tachy/Pb Syndrome s/p Pacemaker S/p aortic Valve replacement, Bovine valve Hx of mitral valve repair HTN HLD --ECHO: Left ventricle is normal in size. Moderate concentric LVH. Apical wall motion abnormality may reflect pacemaker activation. Flattened septum is consistent with RV pressure overload. EF 55 to 60%. Bioprosthetic aortic valve. Gradient is normal for prosthetic aortic valve. Annuloplasty ring and prior mitral valve repair is present with thickening of the mitral valve leaflets. Moderate mitral stenosis is present. Mild mitral and tricuspid regurgitation. Right ventricular systolic pressure is elevated to be 50 to 60 mmHg. --Started on metoprolol 12.5 mg daily For anticoagulation Monitor INR:2.1 today --Continue spironolactone, rosuvastatin Continue Coumadin Acute metabolic encephalopathy Likely secondary to UTI Delirium likely contributing as well Urine culture pending Empirically on Rocephin Reorient frequently to minimize delirium Tobacco use disorder Counseled to quit chewing tobacco On nicotine patch Chronic Osteoarthritis - Prednisone as above CKD stage III -Creatinine baseline 1.2-1.8 Creatinine at baseline Monitor renal function Avoid nephrotoxic agents as able Hypothyroidism -Continue levothyroxine 125 mcg daily BPH - Continue flomax Bladder scan as needed to monitor for retention 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, cystoscope pending for January DVT px: Coumadin CODE status: FULL CODE Disposition PT OT prior to discharge Admission and Anticipated Discharge Date Admission Date: January 23, 2024 Subjective Patient is seen and examined at bedside Seem to be delirious overnight, better this morning Still has cough with occasional expectoration Dysuria resolved Denies any chest pain, nausea, vomiting, abdominal pain, dyspnea, dizziness No other complaints Review of Systems Review of Systems: All systems reviewed & are unremarkable except as noted in Subjective Physical Exam Physical Exam: Physical Exam: Vitals signs as noted above General Appearance:Thin, no apparent distress, Elderly Head: normocephalic, Atraumatic Eyes: normal inspection, EOMI Neck: supple, Trachea midline Respiratory/Chest: B/L coarse breath sound, +rhonchi and wheezes, No accessory muscle use Cardiovascular: Irregularly irregular, + murmur Abdomen/GI:Soft, Non tender, Bowel sounds present Extremities/Musculoskeletal:normal inspection, no edema Neurologic/Psych:AAOX3, grossly no focal neurological deficits, decreased hearing Skin: normal color, warm Results & Data Results & Data Vital Signs (Past 12 Hours) Vital Signs Temp Pulse Resp BP BP Pulse Ox O2 Del Method 01/26/24 11:52 36.4 C L 82 19 105/63 96 Room Air 01/26/24 08:54 107/53 L 01/26/24 07:55 Room Air 01/26/24 07:52 97/42 L 01/26/24 07:51 96/47 L 01/26/24 07:48 36.3 C L 68 18 93/55 L 92 Room Air 01/26/24 07:15 60 16 99 Room Air Laboratory Results Short CBC 01/26/24 Range/Units 04:24 WBC 4.82 (4.8-10.8) K/ul Hgb 10.0 L (14.0-18.0) g/dl Hct 32.1 L (42.0-52.0) % Plt Count 116 L (130-400) K/uL BMP 01/26/24 04:24 Sodium 134 L Potassium 4.2 Chloride 100 Carbon Dioxide 28 BUN 43 H Creatinine 1.38 Glucose 110 H Calcium 8.4 L Urine 01/26/24 Range/Units 05:25 Urine Color Yellow Urine Appearance Clear (Clear) Urine pH 5.5 (4.5-7.5) Ur Specific [place] 1.026 (1.000-1.030) Urine Protein 1+ H (Negative) Urine Glucose (UA) Negative (Negative)
[2024-01-26] MEDS: ONDANSETRON INJ 2 MG/ML 2 ML VIAL IV PRN (23:33)
[2024-01-27 07:18] LABS: Hematocrit (blood only) 32.4 % (42.0-52.0); Hemoglobin 9.9 g/dl (14.0-18.0); Mean Corpuscular Hemoglobin 28.1 pg (25.0-34.0); Mean Corpuscular Hgb Conc 30.6 g/dL (32.0-36.0); Mean Platelet Volume 11.2 fL (9.4-12.4); Platelet Count 139 K/uL (130-400); RDW Coefficient of Variation 16.3 % (11.5-14.5); RDW Standard Deviation 55.3 fL (36.4-46.3); Red Blood Count 3.52 M/uL (4.70-6.10); White Blood Count 5.21 K/ul (4.8-10.8)
[2024-01-27 07:33] LABS: BUN Creatinine Ratio 31.5 (10-20); Calcium 8.9 mg/dl (8.6-10.3); Est GFR (African American) 58.9 ml/min; Est GFR (Non-African American) 50.8 ml/min; Potassium 4.6 mmol/L (3.5-5.1)
[2024-01-27 07:45] LABS: INR 1.8 (0.9-1.1); Prothrombin Time 19.2 Seconds (9.0-12.0)
[2024-01-27] MEDS: WARFARIN SOD 3 MG TAB PO SCH (15:19)
--- NOTE | 2024-01-27 15:58 | Hospitalist Progress Note ---
Date of Service January 27, 2024 Assessment & Plan (1) Acute respiratory failure with hypoxia and hypercarbia: (2) Metabolic acidosis: (3) RSV (respiratory syncytial virus infection): (4) Atrial fibrillation: (5) Status post aortic valve replacement: (6) Status post mitral valve repair: (7) Chronic steroid use: (8) Osteoarthritis: (9) CKD (chronic kidney disease), stage III: Plan: Acute on chronic respiratory failure with hypoxia and hypercarbia Metabolic acidosis Moderate persistent asthma COPD RSV infection Nocturnal Hypoxemia--on 2L HS Volume overload/pulmonary edema--POA --CXR:Cardiomegaly and cardiac pacemaker without evidence of congestive failure. Bilateral airspace opacities likely represent pulmonary edema. Correlate clinically for evidence of a superimposed pneumonia. Radiographic follow-up to resolution is recommended. Suspect small pleural effusions -- BioFire positive for RSV --Normal procalcitonin, elevated BNP Lactate 3.2 improved to 1.8 with BiPAP No indication for antibiotics currently Appreciate cardiology, pulmonology input Cautious use of IV diuretics per cardiology Continue nebs Monitor volume status closely Weaned off of supplemental oxygen PT OT prior to discharge Slowly improving Persistent Atrial Fibrillation Supratherapeutic INR Acute on chronic diastolic heart failure, likely secondary to RSV viral illness Hx Tachy/Pb Syndrome s/p Pacemaker S/p aortic Valve replacement, Bovine valve Hx of mitral valve repair HTN HLD --ECHO: Left ventricle is normal in size. Moderate concentric LVH. Apical wall motion abnormality may reflect pacemaker activation. Flattened septum is c onsistent with RV pressure overload. EF 55 to 60%. Bioprosthetic aortic valve. Gradient is normal for prosthetic aortic valve. Annuloplasty ring and prior mitral valve repair is present with thickening of the mitral valve leaflets. Moderate mitral stenosis is present. Mild mitral and tricuspid regurgitation. Right ventricular systolic pressure is elevated to be 50 to 60 mmHg. --Started on metoprolol 12.5 mg daily For anticoagulation Monitor INR:1.8 today --Continue spironolactone, rosuvastatin Continue Coumadin--increase to 3 mg today Acute metabolic encephalopathy Likely due to delirium UTI less likely Urine culture preliminary negative Empirically on Rocephin Reorient frequently to minimize delirium Mental status improved Tobacco use disorder Counseled to quit chewing tobacco On nicotine patch Chronic Osteoarthritis - Prednisone as above CKD stage III -Creatinine baseline 1.2-1.8 Creatinine at baseline Monitor renal function Avoid nephrotoxic agents as able Hypothyroidism -Continue levothyroxine 125 mcg daily BPH - Continue flomax Bladder scan as needed to monitor for retention 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, cystoscope pending for January DVT px: Coumadin CODE status: FULL CODE Disposition PT OT prior to discharge Admission and Anticipated Discharge Date Admission Date: January 23, 2024 Subjective Patient is seen and examined at bedside No confusion, hallucination today Still has cough but denies any dyspnea Saturating well on room air Sitting in chair during my encounter Denies any chest pain, nausea, vomiting, abdominal pain, dyspnea, dizziness No other complaints Review of Systems Review of Systems: All systems reviewed & are unremarkable except as noted in Subjective Physical Exam Physical Exam: Physical Exam: Vitals signs as noted above General Appearance:Thin, no apparent distress, Elderly Head: normocephalic, Atraumatic Eyes: normal inspection, EOMI Neck: supple, Trachea midline Respiratory/Chest: B/L coarse breath sound, +miimal wheezes, No accessory muscle use Cardiovascular: Irregularly irregular, + murmur Abdomen/GI:Soft, Non tender, Bowel sounds present Extremities/Musculoskeletal:normal inspection, no edema Neurologic/Psych:AAOX3, grossly no focal neurological deficits, decreased hearing Skin: normal color, warm Results & Data Results & Data Vital Signs (Past 12 Hours) Vital Signs Temp Pulse Resp BP Pulse Ox O2 Del Method 01/27/24 11:01 36.6 C 63 18 107/55 L 98 Room Air 01/27/24 10:05 Room Air 01/27/24 08:05 36.5 C 68 18 101/53 L 94 Room Air 01/27/24 07:04 60 16 95 Room Air Laboratory Results Short CBC 01/27/24 Range/Units 06:44 WBC 5.21 (4.8-10.8) K/ul Hgb 9.9 L (14.0-18.0) g/dl Hct 32.4 L (42.0-52.0) % Plt Count 139 (130-400) K/uL BMP 01/27/24 06:44 Sodium 136 Potassium 4.6 Chloride 101 Carbon Dioxide 30 BUN 40 H Creatinine 1.27 Glucose 87 Calcium 8.9
--- NOTE | 2024-01-27 17:23 | Cardiology Progress Note ---
Date of Service January 27, 2024 Assessment & Plan (1) RSV (respiratory syncytial virus infection): (2) Pneumonia: (3) Asthma: (4) Status post aortic valve replacement: (5) Status post mitral valve repair: (6) Moderate mitral stenosis: (7) Atrial fibrillation: (8) Pacemaker: Plan: Device interrogation 01/14/2024 Normal device function estimated battery life 5 years 72% RV pacing Plan Complex 88-year-old male with known valvular heart disease status post aortic valve replacement and mitral valve repair, moderate mitral stenosis. Underlying pulmonary issues include chronic asthmatic lung disease. Patient presents with worsening cough x 6 days with positive RSV swab Suspect component of mild pulmonary vascular congestion superimposed on viral pneumonia INR 1.8. Coumadin dose already adjusted by primary service. Plan: Respiratory treatment and support metoprolol succinate 12.5 mg daily for heart rate control Furosemide 20 mg IV a.m. of 01/28/2024 Meka Meredith DO Admission and Anticipated Discharge Date Admission Date: January 23, 2024 Subjective Patient feeling well. No complaints. Atrial fibrillation in the 60s noted with occasional PVCs. Still with coarse cough. Physical Exam Constitutional: + thin; no acute distress Eyes: PERRL, conjunctivae normal, anicteric sclerae ENMT: external ear and nose normal, oropharynx normal Neck: trachea midline, no thyromegaly Respiratory: + cough Auscultation: + rhonchi Cardiovascular: Rate/Rhythm: + tachycardic and + irregularly irregular Heart Sounds: + murmur (Grade 2 or 6 systolic, no diastolic) Vessels: no JVD Extremities: no edema Gastrointestinal (Abdomen): normal bowel sounds, soft, nontender, no hepatosplenomegaly Results & Data Vital Signs (Past 12 Hours) Vital Signs Temp Pulse Resp BP BP Pulse Ox O2 Del Method 01/27/24 16:32 36.6 C 64 19 108/66 96 Room Air 01/27/24 11:01 36.6 C 63 18 107/55 L 98 Room Air 01/27/24 10:05 Room Air 01/27/24 08:05 36.5 C 68 18 101/53 L 94 Room Air 01/27/24 07:04 60 16 95 Room Air Laboratory Results Coagulation 01/27/24 Range/Units 06:44 PT 19.2 H (9.0-12.0) Seconds CBC 01/27/24 Range/Units 06:44 WBC 5.21 (4.8-10.8) K/ul RBC 3.52 L (4.70-6.10) M/uL Hgb 9.9 L (14.0-18.0) g/dl Hct 32.4 L (42.0-52.0) % Plt Count 139 (130-400) K/uL Comprehensive Metabolic Panel 01/27/24 Range/Units 06:44 Sodium 136 (136-145) mmol/L Potassium 4.6 (3.5-5.1) mmol/L Chloride 101 (98-107) mmol/L Carbon Dioxide 30 (21-32) mmol/L BUN 40 H (6-23) mg/dl Creatinine 1.27 (0.6-1.4) mg/dl Glucose 87 (70-99(Fasting)) mg/dl Calcium 8.9 (8.6-10.3) mg/dl Intake and Output 01/27/24 01/27/24 01/27/24 06:59 14:59 22:59 Intake Total 240 / 1460 810 / 810 Output Total 425 / 825 175 / 175 Balance -185 / 635 635 / 635 Intake: IV 50 / 50 cefTRIAXone SODIUM 2,000 mg In 50 / 50 Dextrose 5 % Mini-B 50 ml @ 100 mls/hr IV Q24H [facility] Rx#: [id number] Oral 240 / 1360 760 / 760 Output: Urine 425 / 825 175 / 175 Other: Weight 62.3 kg Weight Measurement Method Built in [facility]
[2024-01-28] MEDS: ALBUT/IPRATROP 3MG/0.5MG NEB 3 ML VIAL NEB PRN (03:36)
[2024-01-28 06:41] LABS: Hematocrit (blood only) 33.8 % (42.0-52.0); Mean Corpuscular Hemoglobin 27.7 pg (25.0-34.0); Mean Corpuscular Hgb Conc 29.6 g/dL (32.0-36.0); Mean Corpuscular Volume 93.6 fL (80.0-100.0); Mean Platelet Volume 11.3 fL (9.4-12.4); Platelet Count 149 K/uL (130-400); RDW Coefficient of Variation 15.9 % (11.5-14.5); RDW Standard Deviation 54.1 fL (36.4-46.3); Red Blood Count 3.61 M/uL (4.70-6.10); White Blood Count 6.03 K/ul (4.8-10.8)
[2024-01-28 06:59] LABS: BUN Creatinine Ratio 30.5 (10-20); Calcium 9.1 mg/dl (8.6-10.3); Creatinine Clr Calc Pharmacy 31.5 ml/min; Est GFR (African American) 51.9 ml/min; Est GFR (Non-African American) 44.8 ml/min; Potassium 4.7 mmol/L (3.5-5.1)
[2024-01-28 07:16] LABS: INR 1.7 (0.9-1.1); Prothrombin Time 18.2 Seconds (9.0-12.0)
[2024-01-28 07:30] VITALS: RESP 20; TEMP 97; O2SAT 94
[2024-01-28] MEDS: FUROSEMIDE INJ 20 MG/2 ML VIAL IV SCH (08:10)
--- NOTE | 2024-01-28 11:31 | Cardiology Progress Note ---
Date of Service January 28, 2024 Assessment & Plan (1) RSV (respiratory syncytial virus infection): (2) Pneumonia: (3) Asthma: (4) Status post aortic valve replacement: (5) Status post mitral valve repair: (6) Moderate mitral stenosis: (7) Atrial fibrillation: (8) Pacemaker: Plan: Device interrogation 01/14/2024 Normal device function estimated battery life 5 years 72% RV pacing Plan Complex 88-year-old male with known valvular heart disease status post aortic valve replacement and mitral valve repair, moderate mitral stenosis. Underlying pulmonary issues include chronic asthmatic lung disease. Patient presents with worsening cough x 6 days with positive RSV swab Suspect component of mild pulmonary vascular congestion superimposed on viral pneumonia INR 1.7. Coumadin dose already adjusted by primary service. Plan: Respiratory treatment and support metoprolol succinate 12.5 mg daily for heart rate control Patient feeling well. Creatinine trended up this am. Hold further IV furosemide. Stable for discharge to home from cardiac perspective , with plans for furosemide 40 mg PO on as needed basis for weight gain of 2.5 lbs in 24 hours of 5 lbs in 48 hours. Outpt follow up with anticoagulation clinc. Meka Meredith DO Admission and Anticipated Discharge Date Admission Date: January 23, 2024 Subjective Mr Robles is seen in cardiology follow up. Feels well. Walked well with therapy and with his spouse. Telemetry reveals rate controlled AF in the 60s. Physical Exam Constitutional: + thin; no acute distress Eyes: PERRL, conjunctivae normal, anicteric sclerae ENMT: external ear and nose normal, oropharynx normal Neck: trachea midline, no thyromegaly Respiratory: + cough Auscultation: + rhonchi Cardiovascular: Rate/Rhythm: + tachycardic and + irregularly irregular Heart Sounds: + murmur (Grade 2 or 6 systolic, no diastolic) Vessels: no JVD Extremities: no edema Gastrointestinal (Abdomen): normal bowel sounds, soft, nontender, no hepatosplenomegaly Results & Data Vital Signs (Past 12 Hours) Vital Signs Temp Pulse Pulse Resp BP Pulse Ox O2 Del Method 01/28/24 10:01 Room Air 01/28/24 09:59 91 H 01/28/24 07:27 36.1 C L 66 20 111/54 L 94 Room Air 01/28/24 07:13 64 18 93 Room Air 01/28/24 03:36 64 18 95 Room Air 01/28/24 02:17 35.8 C L 69 18 119/57 L 92 Room Air Laboratory Results Coagulation 01/28/24 Range/Units 06:12 PT 18.2 H (9.0-12.0) Seconds CBC 01/28/24 Range/Units 06:12 WBC 6.03 (4.8-10.8) K/ul RBC 3.61 L (4.70-6.10) M/uL Hgb 10.0 L (14.0-18.0) g/dl Hct 33.8 L (42.0-52.0) % Plt Count 149 (130-400) K/uL Comprehensive Metabolic Panel 01/28/24 Range/Units 06:12 Sodium 136 (136-145) mmol/L Potassium 4.7 (3.5-5.1) mmol/L Chloride 101 (98-107) mmol/L Carbon Dioxide 30 (21-32) mmol/L BUN 43 H (6-23) mg/dl Creatinine 1.41 H (0.6-1.4) mg/dl Glucose 86 (70-99(Fasting)) mg/dl Calcium 9.1 (8.6-10.3) mg/dl Intake and Output 01/27/24 01/28/24 01/28/24 22:59 06:59 14:59 Intake Total 240 / 1050 50 / 50 Output Total 300 / 1000 525 / 1000 Balance -60 / 50 -525 / 50 50 / 50 Intake: IV 50 / 50 cefTRIAXone SODIUM 2,000 mg In 50 / 50 Dextrose 5 % Mini-B 50 ml @ 100 mls/hr IV Q24H [facility] Rx#: [id number] Oral 240 / 1000 Output: Urine 300 / 1000 525 / 1000 Other: Weight 65 kg Weight Measurement Method Built in [facility]
--- NOTE | 2024-01-28 12:40 | Hospitalist Progress Note ---
Date of Service January 28, 2024 Assessment & Plan (1) Acute respiratory failure with hypoxia and hypercarbia: (2) Metabolic acidosis: (3) RSV (respiratory syncytial virus infection): (4) Atrial fibrillation: (5) Status post aortic valve replacement: (6) Status post mitral valve repair: (7) Chronic steroid use: (8) Osteoarthritis: (9) CKD (chronic kidney disease), stage III: Plan: Acute on chronic respiratory failure with hypoxia and hypercarbia Metabolic acidosis Moderate persistent asthma COPD RSV infection Nocturnal Hypoxemia--on 2L HS Volume overload/pulmonary edema--POA --CXR:Cardiomegaly and cardiac pacemaker without evidence of congestive failure. Bilateral airspace opacities likely represent pulmonary edema. Correlate clinically for evidence of a superimposed pneumonia. Radiographic follow-up to resolution is recommended. Suspect small pleural effusions -- BioFire positive for RSV --Normal procalcitonin, elevated BNP Lactate 3.2 improved to 1.8 with BiPAP No indication for antibiotics currently Appreciate cardiology, pulmonology input Cautious use of IV diuretics per cardiology Continue nebs Monitor volume status closely Saturating well on room air Plan to be discharged home today Persistent Atrial Fibrillation Supratherapeutic INR Acute on chronic diastolic heart failure, likely secondary to RSV viral illness Hx Tachy/Pb Syndrome s/p Pacemaker S/p aortic Valve replacement, Bovine valve Hx of mitral valve repair HTN HLD --ECHO: Left ventricle is normal in size. Moderate concentric LVH. Apical wall motion abnormality may reflect pacemaker activation. Flattened septum is consistent with RV pressure overload. EF 55 to 60%. Bioprosthetic aortic valve. Gradient is normal for prosthetic aortic valve. Annuloplasty ring and prior mitral valve repair is present with thickening of the mitral valve leaflets. Moderate mitral stenosis is present. Mild mitral and tricuspid regurgitation. Right ventricular systolic pressure is elevated to be 50 to 60 mmHg. --Started on metoprolol 12.5 mg daily For anticoagulation Monitor INR:1.7 today --Continue spironolactone, rosuvastatin Continue Coumadin Needs follow-up with Coumadin clinic on discharge Acute metabolic encephalopathy Likely due to delirium UTI ruled out Urine culture preliminary negative Received on Rocephin empirically Reorient frequently to minimize delirium Mental status improved Tobacco use disorder Counseled to quit chewing tobacco On nicotine patch Chronic Osteoarthritis - Prednisone as above CKD stage III -Creatinine baseline 1.2-1.8 Creatinine at baseline Monitor renal function Avoid nephrotoxic agents as able Hypothyroidism -Continue levothyroxine 125 mcg daily BPH - Continue flomax Bladder scan as needed to monitor for retention 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, cystoscope pending for January DVT px: Coumadin CODE status: FULL CODE Disposition Home with Admission and Anticipated Discharge Date Admission Date: January 23, 2024 Subjective Patient is seen and examined at bedside Feels lot better today No dyspnea today Cough much improved Discussed patient's at bedside Also discussed with cardiology today Patient offers no other complaints Saturating well on room air Plan to discharge home today Denies any chest pain, nausea, vomiting, abdominal pain, dyspnea, dizziness Review of Systems Review of Systems: All systems reviewed & are unremarkable except as noted in Subjective Physical Exam Physical Exam: Physical Exam: Vitals signs as noted above General Appearance:Thin, no apparent distress, Elderly Head: normocephalic, Atraumatic Eyes: normal inspection, EOMI Neck: supple, Trachea midline Respiratory/Chest: B/L coarse breath sound, CTA, No accessory muscle use Cardiovascular: Irregularly irregular, + murmur Abdomen/GI:Soft, Non tender, Bowel sounds present Extremities/Musculoskeletal:normal inspection, no edema Neurologic/Psych:AAOX3, grossly no focal neurological deficits, decreased hearing Skin: normal color, warm Results & Data Results & Data Vital Signs (Past 12 Hours) Vital Signs Temp Pulse Pulse Resp BP Pulse Ox O2 Del Method 01/28/24 10:01 Room Air 01/28/24 09:59 91 H 01/28/24 07:27 36.1 C L 66 20 111/54 L 94 Room Air 01/28/24 07:13 64 18 93 Room Air 01/28/24 03:36 64 18 95 Room Air 01/28/24 02:17 35.8 C L 69 18 119/57 L 92 Room Air Laboratory Results Short CBC 01/28/24 Range/Units 06:12 WBC 6.03 (4.8-10.8) K/ul Hgb 10.0 L (14.0-18.0) g/dl Hct 33.8 L (42.0-52.0) % Plt Count 149 (130-400) K/uL [facility] 01/28/24 06:12 Sodium 136 Potassium 4.7 Chloride 101 Carbon Dioxide 30 BUN 43 H Creatinine 1.41 H Glucose 86 Calcium 9.1
--- NOTE | 2024-01-28 12:51 | Discharge Summary ---
Date of Service January 28, 2024 Admission HPI Per Admitting Provider This is an 88-year-old male with PMHx of CAD, A-fib on Coumadin, HTN, HLD, s/p AV with bovine replacement valve, Mitral valve repair, Cardiac pacemaker in situ, paroxysmal SVT, restrictive lung disease, moderate persistent asthma, Stark's esophagus, iron deficiency anemia, hypothyroidism, CKD stage III who presents with worsening shortness of breath and is found to have RSV and is requiring BiPAP in the ER. Pt is present with his at bedside, he reports worsening shortness of breath since Saturday. In the past few days he has had progressive SOB. At home he is supposed to wear supplemental O2 at nighttime however has previously refused it. Last night his made him aware. Recently he was seen by PCP on Saturday and his blood count was checked, was noted to be low at 9. When his hgb is 11 he functions well per the . He has been coughing sputum Saturday through saturday, and then couldn't seem to cough it up. She denies any hemoptysis ever, at bedside he has spit out a red cough drop into an emesis bag. Patient was also recently started on a prednisone taper by his PCP on Saturday where he has been taking 55 mg of prednisone prior to past 2 days, was supposed to drop to 45 mg today but did not take it this morning. These amounts are as so, because he takes 5 mg of prednisone chronically for osteoarthritis. His notes he has not been eating and drinking well in the past few days. Denies fever or sweats, but he is having chills and requesting more blankets here. He reports no urinary symptoms or abdominal complaints. Admission Exam Per Admitting Provider GENERAL APPEARANCE: AxOx4, ill appearing gentleman on bipap HEENT: NC, AT. MMM. NECK: Supple without lymphadenopathy. No stiffness or restricted ROM. HEART: difficult to appreciate secondary to labored breathing, diffuse rhonchorous breath sounds, trace tibial edema LUNGS: CTAB, moving air well. No crackles or wheezes are heard. ABDOMEN: Soft, nontender, nondistended with good bowel sounds heard. BACK: No CVAT, no obvious deformity. EXTREMITIES: Without cyanosis, clubbing or edema. NEUROLOGICAL: Grossly nonfocal. Alert and oriented, moving all 4 extremities. CN not formally tested but appear grossly intact. Skin: Warm and dry without any rash. Principal Diagnosis Acute on chronic respiratory failure with hypoxia and hypercarbia RSV Pneumonia Moderate persistent asthma Pulmonary edema Suspected Acute on chronic diastolic heart failure Delirium Subtherapeutic INR Discharge Data Allergies Allergy/AdvReac Type Severity Reaction Status Date / Time Penicillins Allergy Intermediate RASH/EL-ORBITAL Verified 01/23/24 11:16 EDEMA Consultations 01/23/24 12:12 ED Decision to Admit Stat 01/23/24 14:28 Consult Cardiology Routine 01/23/24 14:37 Consult Pulmonology Routine Procedures Performed Laboratory Results WBC 6.03 K/ul (4.8-10.8) 01/28/24 06:12 RBC 3.61 M/uL (4.70-6.10) L 01/28/24 06:12 Hgb 10.0 g/dl (14.0-18.0) L 01/28/24 06:12 POC Hgb 11.9 g/dl (14.0-18.0) L 01/23/24 10:16 Hct 33.8 % (42.0-52.0) L 01/28/24 06:12 POC Hct 35 % (42-52) L 01/23/24 10:16 MCV 93.6 fL (80.0-100.0) 01/28/24 06:12 MCH 27.7 pg (25.0-34.0) 01/28/24 06:12 MCHC 29.6 g/dL (32.0-36.0) L 01/28/24 06:12 RDW Std Deviation 54.1 fL (36.4-46.3) H 01/28/24 06:12 RDW Coeff of Humberto 15.9 % (11.5-14.5) H 01/28/24 06:12 Plt Count 149 K/uL (130-400) 01/28/24 06:12 MPV 11.3 fL (9.4-12.4) 01/28/24 06:12 Immature Gran % (Auto) 0.7 % 01/23/24 10:08 Neut % (Auto) 80.2 % 01/23/24 10:08 Lymph % (Auto) 10.1 % 01/23/24 10:08 Gibson % (Auto) 8.6 % 01/23/24 10:08 Eos % (Auto) 0.2 % 01/23/24 10:08 Baso % (Auto) 0.2 % 01/23/24 10:08 Neut # (Auto) 4.84 K/uL (1.40-6.50) 01/23/24 10:08 Lymph # (Auto) 0.61 K/uL (1.20-3.40) L 01/23/24 10:08 Gibson # (Auto) 0.52 K/uL (0.11-0.59) 01/23/24 10:08 Eos # (Auto) 0.01 K/uL (0.00-0.50) 01/23/24 10:08 Baso # (Auto) 0.01 K/uL (0.00-0.20) 01/23/24 10:08 Immature Gran # (Auto) 0.04 K/uL (0.01-0.20) 01/23/24 10:08 Platelet Estimate Decreased (Normal) L 01/24/24 05:45 PT 18.2 Seconds (9.0-12.0) H 01/28/24 06:12 INR 1.7 (0.9-1.1) H 01/28/24 06:12 ABG pH Cancelled 01/23/24 12:22 ABG pCO2 Cancelled 01/23/24 12:22 ABG pO2 Cancelled 01/23/24 12:22 ABG HCO3 Cancelled 01/23/24 12:22 ABG O2 Saturation Cancelled 01/23/24 12:22 ABG Base Excess Cancelled 01/23/24 12:22 Luis Test Cancelled 01/23/24 12:22 VBG pH 7.41 (7.36-7.41) 01/26/24 04:24 VBG pCO2 44 mmHg (38-50) 01/26/24 04:24 VBG pO2 55 mmHg 01/26/24 04:24 VBG HCO3 28 mmol/L 01/26/24 04:24 VBG O2 Saturation 86.7 % 01/26/24 04:24 VBG Base Excess 2.7 mEq/L 01/26/24 04:24 Barometric Pressure Cancelled 01/23/24 12:22 Oxygen Given Cancelled 01/23/24 12:22 POC Sodium 140 mmol/L (135-144) 01/23/24 10:16 Sodium 136 mmol/L (136-145) 01/28/24 06:12 POC Potassium 4.8 mmol/L (3.3-5.0) 01/23/24 10:16 Potassium 4.7 mmol/L (3.5-5.1) 01/28/24 06:12 POC Chloride 108 mmol/L (101-112) 01/23/24 10:16 Chloride 101 mmol/L (98-107) 01/28/24 06:12 Carbon Dioxide 30 mmol/L (21-32) 01/28/24 06:12 POC Total CO2 25 mmol/L (24-31) 01/23/24 10:16 Anion Gap 5 (3-11) 01/28/24 06:12 POC Anion Gap 13.0 mmol/L (16-25) L 01/23/24 10:16 POC BUN 37 mg/dl (7-18) H 01/23/24 10:16 BUN 43 mg/dl (6-23) H 01/28/24 06:12 Creatinine 1.41 mg/dl (0.6-1.4) H 01/28/24 06:12 POC Creatinine 1.7 mg/dl (0.6-1.3) H 01/23/24 10:16 Est Cr Clr Drug Dosing 31.5 ml/min 01/28/24 06:12 Est GFR ( Amer) 51.9 ml/min 01/28/24 06:12 Est GFR (Non-Af Amer) 44.8 ml/min 01/28/24 06:12 BUN/Creatinine Ratio 30.5 (10-20) H 01/28/24 06:12 Glucose 86 mg/dl (70-99(Fasting)) 01/28/24 06:12 POC Glucose 142 mg/dl (70-99) H 01/26/24 04:04 POC Glucose (other) 95 mg/dl (70-99) 01/23/24 10:16 Lactate 1.8 mmol/L (0.4-2.0) 01/23/24 12:04 Calcium 9.1 mg/dl (8.6-10.3) 01/28/24 06:12 POC Ioniz Calcium Halina 1.27 mmol/l (1.12-1.32) 01/23/24 10:16 Magnesium 2.0 mg/dl (1.7-2.4) 01/27/24 06:44 Total Bilirubin 1.1 mg/dl (0.2-1.0) H 01/23/24 10:08 AST 21 U/L (13-39) 01/23/24 10:08 ALT 15 U/L (7-52) 01/23/24 10:08 Alkaline Phosphatase 66 U/L (34-104) 01/23/24 10:08 Ammonia 33.0 umol/L (18-72) 01/26/24 04:24 B-Natriuretic Peptide 1334 pg/ml (0-100) H 01/23/24 13:04 Total Protein 6.4 gm/dl (6.0-8.3) 01/23/24 10:08 Albumin 4.0 gm/dl (3.4-5.0) 01/23/24 10:08 Globulin 2.4 gm/dl (2.5-4.0) L 01/23/24 10:08 Albumin/Globulin Ratio 1.7 (0.9-2) 01/23/24 10:08 Procalcitonin 0.11 ng/ml (0-0.5) 01/23/24 10:08 Urine Color Yellow 01/26/24 05:25 Urine Appearance Clear (Clear) 01/26/24 05:25 Urine pH 5.5 (4.5-7.5) 01/26/24 05:25 Ur Specific [place] 1.026 (1.000-1.030) 01/26/24 05:25 Urine Protein 1+ (Negative) H 01/26/24 05:25 Urine Glucose (UA) Negative (Negative) 01/26/24 05:25 Urine Ketones Negative (Negative) 01/26/24 05:25 Urine Blood 1+ (Negative) H 01/26/24 05:25 Urine Nitrite Negative (Negative) 01/26/24 05:25 Urine Bilirubin Negative (Negative) 01/26/24 05:25 Urine Urobilinogen Negative (Negative) 01/26/24 05:25 Ur Leukocyte Esterase Trace (Negative) H 01/26/24 05:25 Urine WBC (Auto) 5-10 /hpf (0-5) H 01/26/24 05:25 Urine RBC (Auto) 10-30 /hpf (0-4) H 01/26/24 05:25 U Hyaline Cast (Auto) 0 /lpf (0-5) 01/26/24 05:25 U Epithel Cells (Auto) 5-10 /lpf (0-5) H 01/26/24 05:25 Urine Bacteria (Auto) Negative (Negative) 01/26/24 05:25 Ur Renal Epithelial Cell Not Reportable 01/23/24 Unknown Adenovirus (PCR) Not Detected (NotDetected) 01/23/24 10:23 B. pertussis DNA (PCR) Not Detected (NotDetected) 01/23/24 10:23 B.parapertussis DNA PCR Not Detected (NotDetected) 01/23/24 10:23 C. pneumoniae DNA (PCR) Not Detected (NotDetected) 01/23/24 10:23 Coronavirus OC43 (PCR) Not Detected (NotDetected) 01/23/24 10:23 Coronavirus HKU1 (PCR) Not Detected (NotDetected) 01/23/24 10:23 Coronavirus 229E (PCR) Not Detected (NotDetected) 01/23/24 10:23 SARS-CoV-2 (PCR) Not Detected (NotDetected) 01/23/24 10:23 Coronavirus NL63 (PCR) Not Detected (NotDetected) 01/23/24 10:23 Human Metapneumovir PCR Not Detected (NotDetected) 01/23/24 10:23 Influenza Type A (PCR) Not Detected (NotDetected) 01/23/24 10:23 Influenza Type B (PCR) Not Detected (NotDetected) 01/23/24 10:23 M. pneumoniae (PCR) Not Detected (NotDetected) 01/23/24 10:23 Parainfluenza 1 (PCR) Not Detected (NotDetected) 01/23/24 10:23 Parainfluenza 2 (PCR) Not Detected (NotDetected) 01/23/24 10:23 Parainfluenza 3 (PCR) Not Detected (NotDetected) 01/23/24 10:23 Parainfluenza 4 (PCR) Not Detected (NotDetected) 01/23/24 10:23 RSV (PCR) DETECTED (NotDetected) A 01/23/24 10:23 Entero/Rhino (PCR) Not Detected (NotDetected) 01/23/24 10:23 Impressions Chest X-Ray 01/25/24 07:00 XR chest 1V portable CLINICAL HISTORY: hypoxemia TECHNIQUE: Single frontal radiograph of the chest was obtained. Comparison: Comparison is made to chest radiograph 01/23/2024 FINDINGS: Median sternotomy wires are unchanged. Aortic valvular prosthesis is seen. Calcified aortic knob is seen. A port catheter is noted. Multifocal airspace opacities have somewhat improved from prior exam. Prominence and cephalization of the vasculature is seen. No evidence of pleural effusion or pneumothorax. IMPRESSION: Cardiomegaly and mild pulmonary edema. Multifocal airspace opacities have somewhat improved from prior exam. ACT 112: Negative or not required by law. Electronically signed by: Sebastian Nicole M.D. 01/25/2024 9:24 AM Hospital Course (1) Acute respiratory failure with hypoxia and hypercarbia: (2) Metabolic acidosis: (3) RSV (respiratory syncytial virus infection): (4) Atrial fibrillation: (5) Status post aortic valve replacement: (6) Status post mitral valve repair: (7) Chronic steroid use: (8) Osteoarthritis: (9) CKD (chronic kidney disease), stage III: Acute on chronic respiratory failure with hypoxia and hypercarbia Metabolic acidosis Moderate persistent asthma COPD RSV infection Nocturnal Hypoxemia--on 2L HS Volume overload/pulmonary edema--POA --CXR:Cardiomegaly and cardiac pacemaker without evidence of congestive failure. Bilateral airspace opacities likely represent pulmonary edema. Correlate clinically for evidence of a superimposed pneumonia. Radiographic follow-up to resolution is recommended. Suspect small pleural effusions -- BioFire positive for RSV --Normal procalcitonin, elevated BNP Lactate 3.2 improved to 1.8 with BiPAP No indication for antibiotics currently Appreciate cardiology, pulmonology input Cautious use of IV diuretics per cardiology Continue nebs Monitor volume status closely Saturating well on room air Plan to be discharged home today Persistent Atrial Fibrillation Supratherapeutic INR Acute on chronic diastolic heart failure, likely secondary to RSV viral illness Hx Tachy/Pb Syndrome s/p Pacemaker S/p aortic Valve replacement, Bovine valve Hx of mitral valve repair HTN HLD --ECHO: Left ventricle is normal in size. Moderate concentric LVH. Apical wall motion abnormality may reflect pacemaker activation. Flattened septum is cons istent with RV pressure overload. EF 55 to 60%. Bioprosthetic aortic valve. Gradient is normal for prosthetic aortic valve. Annuloplasty ring and prior mitral valve repair is present with thickening of the mitral valve leaflets. Moderate mitral stenosis is present. Mild mitral and tricuspid regurgitation. Right ventricular systolic pressure is elevated to be 50 to 60 mmHg. --Started on metoprolol 12.5 mg daily For anticoagulation Monitor INR:1.7 today --Continue spironolactone, rosuvastatin Continue Coumadin Needs follow-up with Coumadin clinic on discharge Acute metabolic encephalopathy Likely due to delirium UTI ruled out Urine culture preliminary negative Received on Rocephin empirically Reorient frequently to minimize delirium Mental status improved Tobacco use disorder Counseled to quit chewing tobacco On nicotine patch Chronic Osteoarthritis - Prednisone as above CKD stage III -Creatinine baseline 1.2-1.8 Creatinine at baseline Monitor renal function Avoid nephrotoxic agents as able Hypothyroidism -Continue levothyroxine 125 mcg daily BPH - Continue flomax Bladder scan as needed to monitor for retention 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, cystoscope pending for January DVT px: Coumadin CODE status: FULL CODE Disposition Home with Total Time Total Time Spent Total Time Spent (In Minutes): 58 minutes Discharge Plan Discharge Items Patient Disposition: Home - Home Health Services Reason For Visit: ACUTE RESP FAILURE Discharge Diagnosis: Acute on chronic respiratory failure with hypoxia and hypercarbia RSV Pneumonia Moderate persistent asthma Pulmonary edema Suspected Acute on chronic diastolic heart failure Delirium Subtherapeutic INR Activity: Per Instructions section Exercise/Sports: Wait until after follow-up appointment Non-emergency contact: Primary Care Provider and Fire Eater Call non-emergency contact if: you have any medication questions, your symptoms worsen, your pain is concerning for you and you have a fever Follow-up/Referrals: Bell Mcqueen MD [Primary Care Provider] - Diet: Heart Healthy Addtl Attending Provider Instructions: Follow-up with your primary care physician /Arnulfo Roldan on February 04, 2024 at 9 AM as scheduled Follow-up with your director international Dr. Meredith as recommended Follow-up with Coumadin clinic for monitoring your PT/INR and adjusting Coumadin dose as needed Use furosemide (Lasix) 40 mg PO on as needed basis for weight gain of 2.5 lbs in 24 hours of 5 lbs in 48 hours. Seek immediate medical attention if your symptoms reoccur or worsen Please take all medications as instructed on discharge list below. Please call if you have any questions or problems. You can reach a [facility] hospitalist on duty at [facility] 24 hours a day by calling [phone] Call your Primary Care doctor if any of the following symptoms or problems start or get worse: * Shortness of breath or difficulty breathing * Wake up at night short of breath * Chest pain * Cough * Swelling of your hands, feet, or legs * More fatigued or tired with your normal activity * Palpitations - sudden fast heart beats WEIGHT * Weigh yourself every morning after using the bathroom. * Use the same scale. * Wear the same amount of clothing. * Write your weight down on a chart. * Call your Primary Care doctor if you gain more than 2-3 pounds in 1-2 days. MEDICATIONS * Use this discharge instruction sheet for medication instructions. * Take your medications at the time your doctor ordered. * Do not skip a dose of your medicines. * If you miss a dose of medicine, take it as soon as possible, but DO NOT DOUBLE A DOSE. * Read your medicine information when you get home. * Know all of the side effects of your medicine. If in doubt, ask your pharmacist * Call your Primary Care doctor's office if you have any side effects. * Be sure all of your doctors know what medicine and herbs you take (including cold, flu, and herbal medicine). Take the following with you to your follow-up doctor appointments: * Weight Chart * Medication List * List of questions Do not drink excessive alcohol, beer or wine. Pending Studies at Discharge: No Stand-Alone Forms: My [facility], Smoking Cessation Medications and DC Order Prescriptions: New benzonatate 100 mg Capsule 100 mg PO TID PRN (Reason: cough) Qty: 30 0RF metoprolol succinate 25 mg Tablet Extended Release 24 Hr 12.5 mg PO QAM Qty: 30 1RF Continued Zyrtec 10 mg capsule 10 mg PO DAILY PRN (Reason: Allergy Symptoms) sucralfate 1 gram tablet 1 g PO QID PRN (Reason: Only after scope) ferrous sulfate 325 mg (65 mg iron) tablet 325 mg PO QAM vitamin B complex [B Complex-Vitamin B12] Tablet 1 tab PO QAM clotrimazole-betamethasone 1-0.05 % cream 1 applic topical .qhs Qty: 45 11RF Rx Instructions: Apply small/pea-sized amount topically before bed. Used whenever pt has a scope. clindamycin HCl 300 mg Capsule 300 mg PO UD PRN (Reason: DENTAL) polyethylene glycol 3350 [Miralax] 17 gram Powder In Packet 17 g PO QAM prednisone 5 mg Tablet 5 mg PO QAM esomeprazole magnesium [Nexium] 40 mg Capsule,Delayed Release(Dr/Ec) 40 mg PO BID warfarin 5 mg Tablet 2.5 mg PO QPM Rx Instructions: DOSAGE CHANGES BASED ON COAG CLINIC INSTRUCTION. magnesium 250 mg Tablet 250 mg PO QPM albuterol sulfate 90 mcg/actuation Hfa Aerosol Inhaler 2 puff INHALATION QID PRN (Reason: Wheezing) coenzyme Q10 [CoQ-10] 100 mg Capsule 100 mg PO QAM rosuvastatin [Crestor] 10 mg Tablet 10 mg PO QPM spironolactone 25 mg tablet 12.5 mg PO QAM levothyroxine 125 mcg tablet 125 mcg PO QAM zolpidem 5 mg tablet 5 mg PO HS Spiriva Respimat 2.5 mcg/actuation Mist 2 puff INHALATION DAILY tamsulosin 0.4 mg capsule 0.4 mg PO HS furosemide 40 mg tablet 40 mg PO DAILY PRN (Reason: Weight Gain) Rx Instructions: PRN for weight gain of over 4 lbs in 1 week Discharge Orders: Discharge Order (Routine); Ordered 01/28/24 Ordered By: Tony Cooper Admission Data Admit Date/Time: 01/23/24 12:04 Attending Provider: Tony Cooper Admit Provider: Olena Argueta Primary Care Provider: Bell Mcqueen Other Providers: Olena Argueta; Ángel Live; Gagan Mota; Mario Kaba [facility]
[2024-01-28 12:55] VITALS: BP 107/55; PULSE 66
[2024-01-28] MEDS ORDERED: WARFARIN SOD 4 MG TAB PO SCH (16:00)
== END 2024-01-28 14:28 | disposition home health service (06) | DRG 189 ==
LOC: ED 09:41 → EDINP 12:04 → SUATTDRO 12:04 → 2E 14:38

== ENCOUNTER 2024-03-31 11:19 | Inpatient (IN) ==
[2024-03-31 12:06] LABS: Hematocrit (blood only) 32.9 % (42.0-52.0); Hemoglobin 9.5 g/dl (14.0-18.0); Mean Corpuscular Hemoglobin 27.7 pg (25.0-34.0); Mean Corpuscular Hgb Conc 28.9 g/dL (32.0-36.0); Mean Corpuscular Volume 95.9 fL (80.0-100.0); Mean Platelet Volume 12.4 fL (9.4-12.4); Platelet Count 119 K/uL (130-400); RDW Coefficient of Variation 15.8 % (11.5-14.5); RDW Standard Deviation 54.9 fL (36.4-46.3); Red Blood Count 3.43 M/uL (4.70-6.10); White Blood Count 3.95 K/ul (4.8-10.8)
[2024-03-31 12:15] LABS: Appearance Urine Clear (Clear); Bacteria Urine Automated None Seen (None Seen); Bilirubin Urine 1+ (Negative); Blood Urine Trace (Negative); Color Urine Dark Yellow; Glucose Urine UA Negative (Negative); Ketones Urine 1+ (Negative); Leukocyte Esterase Urine Trace (Negative); Nitrite Urine Negative (Negative); Protein Urine 1+ (Negative); Specific Gravity Urine 1.029 (1.000-1.030); Urobilinogen Urine Negative (Negative); WBC Urine Automated 0-5 /hpf (0-5); pH Urine 5.5 (4.5-7.5)
--- NOTE | 2024-03-31 12:15 | XRay Report ---
SINGLE VIEW CHEST CLINICAL HISTORY: Sepsis. FINDINGS: A PA chest radiograph is compared to study dated 01/25/2024. Correlation is made with chest C T dated 05/17/2022. The patient is status post midline sternotomy and cardiac valve surgery. A single- lead cardiac pacemaker and a right internal jugular central venous infusion port are unchanged in pos ition. The heart is enlarged noting atherosclerotic calcification of the thoracic aorta. There is pul monary vascular congestion. Bilateral airspace opacities likely represent interstitial edema. Small p leural effusions are suspected. No pneumothorax is seen. The skeletal structures are osteopenic. Ther e are chronic/healed right-sided rib fractures. Degenerative change is noted in the shoulders and spi ne. IMPRESSION: 1. Cardiomegaly and cardiac pacemaker with evidence of congestive failure. 2. Bilateral airspace opacities likely represent pulmonary edema. Correlate clinically. 3. Suspect small pleural effusions. ACT 112: Negative or not required by law. Electronically signed by: Caleb Sams M.D. 03/31/2024 12:14 PM
[2024-03-31 12:25] LABS: Alanine Aminotransferase 10 U/L (7-52); Albumin Globulin Ratio 1.6 (0.9-2); Albumin Level 3.8 gm/dl (3.4-5.0); Alkaline Phosphatase 54 U/L (34-104); Anion Gap 8 (3-11); Aspartate Aminotransferase 18 U/L (13-39); BUN Creatinine Ratio 28.2 (10-20); Bilirubin,Total 1.8 mg/dl (0.2-1.0); Blood Urea Nitrogen 49 mg/dl (6-23); Carbon Dioxide 24 mmol/L (21-32); Chloride 105 mmol/L (98-107); Est GFR (Non-African American) 34.5 ml/min; Globulin 2.4 gm/dl (2.5-4.0); Glucose 113 mg/dl (70-99(Fasting)); Potassium 4.8 mmol/L (3.5-5.1); Sodium 137 mmol/L (136-145); Total Protein 6.2 gm/dl (6.0-8.3)
[2024-03-31 12:30] LABS: Troponin I High Sensitivity 31.4 pg/ml (0-20)
[2024-03-31 12:32] LABS: Acanthocytes 1+; Basophils # (auto) 0.02 K/uL (0.00-0.20); Basophils % (auto) 0.5 %; Immature Granulocytes # (auto) 0.02 K/uL (0.01-0.20); Immature Granulocytes % (auto) 0.5 %; Lymphocytes # (auto) 0.14 K/uL (1.20-3.40); Lymphocytes % (auto) 3.5 %; Monocytes # (auto) 0.18 K/uL (0.11-0.59); Monocytes % (auto) 4.6 %; Neutrophils # (auto) 3.59 K/uL (1.40-6.50); Neutrophils % (auto) 90.9 %; Ovalocytes 1+; Poikilocytosis Present; Polychromasia 1+; Tear Drop Cells 2+
[2024-03-31 12:37] LABS: INR 4.3 (0.9-1.1); Partial Thromboplastin Ratio 1.5; Partial Thromboplastin Time 40 Seconds (21-31); Prothrombin Time 40.8 Seconds (9.0-12.0)
--- NOTE | 2024-03-31 13:07 | CT Scan Report ---
CT SCAN OF THE BRAIN WITHOUT IV CONTRAST CLINICAL HISTORY: Change in mental status. COMPARISON STUDY: CT of the brain dated 11/18/2016. TECHNIQUE: Unenhanced axial CT scan of the brain is performed from the vertex to the skull base. A do se lowering technique was utilized adhering to the principles of ALARA. FINDINGS: Brain parenchyma: There is age-related involutional change noting moderate subcortical and periventri cular microangiopathic disease. There is no hemorrhage, mass effect, or evidence of acute territorial ischemia by CT criteria. Zarate-white matter differentiation is preserved. No extra-axial fluid collec tion is seen. 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 Ventricles, sulci, cisterns: Prominent secondary to involutional change. Intracranial vasculature: There is atherosclerotic calcification of the cavernous carotid and vertebr al arteries. Calvarium: Unremarkable. Sinuses and mastoids: The visualized paranasal sinuses are clear. The mastoid air cells are well pneu matized. Orbits: The bony orbits are grossly intact. IMPRESSION: There is no hemorrhage, mass effect, or evidence of acute territorial ischemia by CT priyanka mojica. ACT 112: Negative or not required by law. Electronically signed by: Caleb Sams M.D. 03/31/2024 1:06 PM
--- NOTE | 2024-03-31 13:25 | CT Scan Report ---
CT SCAN OF THE ABDOMEN AND PELVIS WITHOUT IV CONTRAST CLINICAL HISTORY: Urinary tract infection. Diarrhea. Change in mental status. COMPARISON STUDY: Abdominal CT dated 05/17/2022. TECHNIQUE: CT scan of the abdomen and pelvis is performed from the lung bases to the proximal femora. Images are reviewed in the axial, sagittal, and coronal planes. IV contrast was not administered for this examination. Note that the examination was performed in significantly suboptimal fashion withou t oral and IV contrast. There is also motion artifact, as well as streak artifact from the arms which could not be elevated of the abdomen. A dose lowering technique was utilized adhering to the princip les of DEBBIE. CT DOSE: 1675.92 mGy.cm FINDINGS: Lung bases: The patient is status post midline sternotomy and cardiac valve surgeries. Pacemaker lead s are in place. The heart is enlarged and without pericardial effusion. The coronary arteries are den sely calcified. There is diminished attenuation of the cardiac blood pool last compared to the myocar dium suggesting anemia. There are small pleural effusions with dependent atelectasis. Calcified pleur al plaque is again seen at the right lung base. A small hiatal hernia is noted. Gynecomastia is obser teofilo. Liver: The unenhanced liver is normal in size, contour, and attenuation. There is no intrahepatic roslyn iary ductal dilatation. Gallbladder: There are calcified gallstones with no CT evidence of acute cholecystitis. Spleen: Normal in size and attenuation. Pancreas: The unenhanced pancreas is moderately atrophic and grossly unremarkable. Adrenal glands: Unremarkable. Kidneys: The unenhanced kidneys demonstrate mild cortical atrophy and are without hydronephrosis. The re are punctate nonobstructing bilateral renal calculi. No ureteral stone is seen. There is no eviden ce of contour deforming renal mass lesion. Abdominal vasculature: There is advanced atherosclerotic calcification and ectasia of the abdominal a micki. 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 Th ere is aneurysmal dilatation of the left internal iliac artery which measures up to 2.0 cm.. Bowel: There is postsurgical change from colon resections with colocolonic anastomosis. No bowel obst ruction is seen. There are scattered diverticula of the remaining colon without CT evidence of acute diverticulitis. There is liquid stool throughout the residual colon. Mild rectal wall thickening is o bserved. Peritoneum: There is trace perihepatic and pelvic ascites. No intraperitoneal free air is identified. Lymphadenopathy: None. Pelvic viscera: The prostate gland is enlarged and heterogeneous. The bladder is largely decompressed , and the wall is thickened/trabeculated indicating chronic outlet obstruction. There is persistent i nfiltration. There are bilateral fat-containing inguinal hernias. Skeletal structures: The skeletal structures are osteopenic. 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 There is moderate lumbosacral spondylosis. No lytic or blastic le sions are clearly seen. There are subacute-appearing bilateral rib fractures. Soft tissues: There is anasarca of the body wall. IMPRESSION: 1. Suboptimal examination without oral and IV contrast. There is also streak and motion artifact. 2. Cardiomegaly and small pleural effusions. 3. Anasarca of the body wall and trace abdominopelvic ascites suggest fluid overload. 4. There is evidence of chronic bladder outlet obstruction as well as persistent infiltration. Correl ate with clinical findings and urinalysis for evidence of cystitis. 5. There is liquid stool seen throughout the colon with mild rectal wall thickening. Correlate clinic ally for evidence of a nonspecific proctitis/diarrheal illness. 6. Cholelithiasis. 7. Bilateral nephrolithiasis. 8. Additional findings as above. ACT 112: Negative or not required by law. Electronically signed by: Caleb Sams M.D. 03/31/2024 1:24 PM
[2024-03-31 13:40] LABS: Influenza A virus by PCR Negative (Neg); Influenza B virus by PCR Negative (Neg); RSV by PCR Negative (Neg); SARS CoV2 RNA(COVID-19) Ceph NEGATIVE (Negative)
--- NOTE | 2024-03-31 14:01 | Emergency Department Note ---
Impression & Plan CHF (congestive heart failure), AMS (altered mental status), Weakness ED Provider Note NAME: RAISSA CARMEN AGE: 89 SEX: M : 1935 ARRIVES VIA: Walk-In INFORMANT: Patient ED PROVIDER(S): Nasir Salazar DO CHIEF COMPLAINT: Confusion, weakness HPI: Patient is an 89-year-old male with a past medical history of CHF, mitral stenosis, asthma, CKD who presents the ER for confusion which started in the past 24 hours. Patient has been following with urology and was recently started on Macrobid for UTI. Denies any headache or change in vision. No chest pain or shortness of breath. No belly pain, nausea, vomiting or diarrhea. No dysuria, urgency or frequency. Patient notes that he has pain all over. Additional history/majority of history obtained from who is present at bedside who confirms the antibiotics and the course leading up to starting the antibiotic. She also notes that he falls asleep quickly and is unable to stay awake. He has been having diarrhea today. ADDITIONAL HISTORY OBTAINED: Per HPI Chronic Medical/Social Conditions Affecting Care: Per HPI PAST MEDICAL HISTORY:See Below PAST SURGICAL HISTORY:See Below FAMILY HISTORY:See Below SOCIAL HISTORY:See Below HOME MEDICATIONS:See Below ALLERGIES:See Below VITALS:See Below PHYSICAL EXAMINATION: GENERAL: Laying in bed, sleeping, disheveled, no acute distress, nontoxic EYE EXAM: normal conjunctiva. PERRL and EOM's grossly intact. OROPHARYNX: no exudate, no erythema, lips, buccal mucosa, and tongue normal and mucous membranes are moist NECK: supple, no nuchal rigidity, no adenopathy, non-tender LUNGS: Clear to auscultation. Normal chest wall mechanics HEART: no murmurs, S1 normal and S2 normal ABDOMEN: abdomen soft, non-tender, normo-active bowel sounds, no masses, no rebound or guarding. UPPER EXTREMITIES: upper extremities are grossly normal. LOWER EXTREMITIES: No pitting edema. NEURO EXAM: Oriented to person, year and place, cranial nerves II-XII grossly intact, normal speech, no gross weakness of arms, no gross weakness of legs. No drift. Finger to nose intact. Gross sensation intact. MEDICAL DECISION MAKING: Patient is a an 89-year-old male who presents ER for the above-stated complaint. IV was established blood work was obtained. Additional history was obtained by due to lethargy and confusion. Labs show mild leukopenia at 3.9. Mild anemia at 9.5. Thrombocytopenia at 119. INR elevated 4.3. Creatinine elevated at 1.7 but fairly consistent with previous. Normal mildly elevated at 31. UA without white cells to really suggest infection. Does appear to be consistent with CHF as BNP is elevated he does have a pulm Trop. Consults/Care Managements Discussions: Per MDM Triage Nursing notes reviewed. Limited review of prior medical records performed Vital Signs: reviewed and remarkable for no significant abnormalities Differential diagnosis: Infection, dehydration, metabolic abnormality, hypo/hyperglycemia, electrolyte disturbance, anemia, hypoxia, cardiac sources, intracerebral event, toxicologic, neurologic, as well as other pathologies. ER treatment provided: See below Diagnostics interpreted by me include EKG and cardiac monitoring as listed below: -Cardiac Monitoring: An order was placed for continuous cardiac monitoring. The monitor shows a rate of 88 with sinus rhythm. -ECG: A-fib rate 87 Left axis No PVCs Nonspecific ST wave changes -Laboratory studies:Interpreted by me as stated above in MDM and shown below. Imaging studies: Xrays: As interpreted by me: Portable AP upright 1 view of the chest shows enlarged heart and pulmonary congestion CTs show: CT of the head and abdomen pelvis shows no acute pathology Procedures:none Critical Care: None Past Med/Surg History Problem List (Updated 03/31/24 @ 18:07 by Nasir Salazar DO) Weakness (Acute) AMS (altered mental status) (Acute) CHF (congestive heart failure) (Acute) Acute metabolic encephalopathy Nocturnal hypoxemia Acute kidney injury superimposed on CKD Acute decompensated heart failure Testicular discomfort (Acute) Spermatocele of epididymis, single (Chronic) Community acquired pneumonia (Acute) Congestive heart failure (Acute) Moderate mitral stenosis Pneumonia Mitral stenosis and aortic insufficiency Pulmonary edema cardiac cause RSV (respiratory syncytial virus infection) Asthma CKD (chronic kidney disease), stage III Osteoarthritis Chronic steroid use Atrial fibrillation DX 2003 - ON WARFARIN; follows with Dr. Rainey Status post mitral valve repair Status post aortic valve replacement "bioprosthetic" Metabolic acidosis Acute respiratory failure with hypoxia and hypercarbia History of prostate cancer "had elevated PSA with + biopsy, but repeat biopsies and subsequent PSA's improved" On 11/18/16 10:00 Randy Gilbert wrote "2007" Encounter for pre-operative examination Pacemaker Bladder cancer Low back pain Lumbar spondylosis Medical History (Updated 03/31/24 @ 18:07 by Nasir Salazar DO) Bladder cancer dx 05/2021; TURBT, chemo + radiation Bladder tumor History of basal cell carcinoma History of rectal fissure History of COVID-19 DX'D 10/2020 THRU ACUTE CARE PLESSIS-SOB, PRODUCTIVE COUGH, BODY ACHES, FEVER-RECOVERED AT HOME-SYMPTOMS RESOLVED SOB (shortness of breath) on exertion Arthritis Anticoagulated on Coumadin Heart disease Prostatitis Stark's esophagus GERD (gastroesophageal reflux disease) History of pulmonary embolism FOLLOWING SHOULDER SURGERY APPROX 5 YEARS -NO ISSUES SINCE Pacemaker TACHY-KURT SYNDROME. ALSO HX OF A-FIB. LAST CHECKED 11/2021 - [facility] Tachy-kurt syndrome History of atrial flutter Restless legs syndrome Dyslipidemia Carotid artery disease Spinal stenosis of lumbar region History of paroxysmal supraventricular tachycardia BPH (benign prostatic hypertrophy) Diverticular disease of colon COPD (chronic obstructive pulmonary disease) Hypertension Surgical History History of bladder surgery TURBT 05/29/2021 [facility] History of esophagogastroduodenoscopy (EGD) MULTIPLE History of tonsillectomy History of total knee replacement LEFT KNEE History of herniorrhaphy History of surgery MOHS PROCEDURE ON FACE History of colonoscopy History of bowel resection S/T DIVERTICULITIS History of arthroscopy B/L SHOULDERS History of cardiovascular surgery MITRAL VALVE REPAIR[place] [place] History of heart valve replacement AORTIC VALVE REPLACEMENT (TISSUE)-[facility] [place] Status post inguinal hernia repair Status post cataract extraction Family History Brother Diabetes Cancer Esophageal Cancer Mother Colorectal cancer Lung cancer Social History Smoking Status: Never smoker Tobacco Type: Smokeless Tobacco (Dip or Chew) Cigarettes Per Day: 0; Second Hand Exposure: No; Do You Dip or Chew Tobacco: Yes (1 can every 3-4 days); Hx Alcohol Use: No Hx Substance Use: No Preferred Language: Chinese Communication Ability: Impaired Tube Maker Required: No Beliefs That Will Affect Care: None marital status: Current Living Situation: Spouse current occupational status: retired Feels Safe at Home: Yes Diet: regular caffeine: No during the past year weight has: remained stable Physical Activity Frequency: Other Physical Activity Frequency Comment: "Does alot of yard work" Assistive Devices: Oxygen - at Night Allergies Allergies Allergy/AdvReac Type Severity Reaction Status Date / Time Penicillins Allergy Intermediate RASH/EL-ORBITAL Verified 03/31/24 14:27 EDEMA Home Meds Home Medications Medication Instructions Recorded Confirmed albuterol sulfate 90 mcg/actuation 2 puff inhalation Q4 PRN Wheezing 03/25/19 03/31/24 aerosol inhaler coenzyme Q10 100 mg capsule 100 mg PO QAM 03/25/19 03/31/24 (CoQ-10) esomeprazole magnesium 40 mg 40 mg PO BID 03/25/19 03/31/24 capsule,delayed release (Nexium) polyethylene glycol 3350 17 gram 17 g PO QAM 03/25/19 03/31/24 oral powder packet (Miralax) prednisone 5 mg tablet 5 mg PO QAM 03/25/19 03/31/24 rosuvastatin 10 mg tablet (Crestor) 10 mg PO QPM 03/25/19 03/31/24 warfarin 5 mg tablet 2.5 mg PO [id number] 03/25/19 03/31/24 ferrous sulfate 325 mg (65 mg 325 mg PO QAM 04/25/21 03/31/24 iron) tablet furosemide 40 mg tablet 40 mg PO DAILY PRN Weight Gain 01/23/24 03/31/24 levothyroxine 125 mcg tablet 125 mcg PO QAM 01/23/24 03/31/24 spironolactone 25 mg tablet 12.5 mg PO QAM 01/23/24 03/31/24 tamsulosin 0.4 mg capsule 0.4 mg PO HS freqency 01/23/24 03/31/24 tiotropium bromide 2.5 2 puff inhalation DAILY 01/23/24 03/31/24 mcg/actuation mist for inhalation (Spiriva Respimat) zolpidem 5 mg tablet 5 mg PO HS PRN restless leg 01/23/24 03/31/24 syndrome cholecalciferol (vitamin D3) 25 25 mcg PO QAM 03/31/24 03/31/24 mcg (1,000 unit) tablet (Vitamin D3) cyanocobalamin (vitamin B-12) 1,000 mcg PO DAILY 03/31/24 03/31/24 1,000 mcg tablet (Vitamin B-12) ipratropium 0.5 mg-albuterol 3 mg 3 ml inhalation Q6H PRN Wheezing 03/31/24 03/31/24 (2.5 mg base)/3 mL nebulization soln magnesium 250 mg tablet 250 mg PO DAILY 03/31/24 03/31/24 Previous Rx's Medication Instructions Recorded nitrofurantoin 100 mg PO Q12H 7 days #14 caps 03/30/24 monohydrate/macrocrystals 100 mg capsule (Macrobid) Results & Data (ED) Vital Signs Vital Signs - 24 hr 03/31/24 11:23 03/31/24 13:00 03/31/24 13:00 Temperature 36.5 C Temperature Source Oral Pulse Rate 68 88 Pulse Rate from SpO2 Sensor 91 H Pulse Rhythm Regular Respiratory Rate 20 22 Respiratory Effort / Characteristics Non-Labored Spontaneous Respiratory Depth Normal Blood Pressure 108/47 L 100/65 Blood Pressure Mean 67 72 Pulse Oximetry 97 95 Oxygen Delivery Method Room Air Sepsis Recent Fever Within 48 Hours No Sepsis New/Unexplained Change in Mental Status No Sepsis Action Taken by Nursing No Action Required 03/31/24 13:02 03/31/24 13:30 03/31/24 13:30 Temperature Temperature Source Pulse Rate 88 83 Pulse Rate from SpO2 Sensor Pulse Rhythm Respiratory Rate 20 Respiratory Effort / Characteristics Respiratory Depth Blood Pressure 98/50 L Blood Pressure Mean 66 Pulse Oximetry Oxygen Delivery Method Sepsis Recent Fever Within 48 Hours Sepsis New/Unexplained Change in Mental Status Sepsis Action Taken by Nursing 03/31/24 14:00 03/31/24 14:00 03/31/24 14:30 Temperature Temperature Source Pulse Rate 87 Pulse Rate from SpO2 Sensor Pulse Rhythm Respiratory Rate 21 Respiratory Effort / Characteristics Respiratory Depth Blood Pressure 95/60 L 101/58 L Blood Pressure Mean 81 84 Pulse Oximetry Oxygen Delivery Method Sepsis Recent Fever Within 48 Hours Sepsis New/Unexplained Change in Mental Status Sepsis Action Taken by Nursing 03/31/24 14:30 03/31/24 15:00 03/31/24 15:00 Temperature Temperature Source Pulse Rate 85 87 Pulse Rate from SpO2 Sensor Pulse Rhythm Respiratory Rate 21 21 Respiratory Effort / Characteristics Respiratory Depth Blood Pressure 107/72 Blood Pressure Mean 74 Pulse Oximetry Oxygen Delivery Method Sepsis Recent Fever Within 48 Hours Sepsis New/Unexplained Change in Mental Status Sepsis Action Taken by Nursing 03/31/24 15:30 03/31/24 15:30 03/31/24 16:00 Temperature Temperature Source Pulse Rate 86 80 Pulse Rate from SpO2 Sensor Pulse Rhythm Respiratory Rate 23 23 Respiratory Effort / Characteristics Respiratory Depth Blood Pressure 105/62 Blood Pressure Mean 91 Pulse Oximetry Oxygen Delivery Method Sepsis Recent Fever Within 48 Hours Sepsis New/Unexplained Change in Mental Status Sepsis Action Taken by Nursing 03/31/24 16:00 03/31/24 16:30 03/31/24 16:30 Temperature Temperature Source Pulse Rate 78 Pulse Rate from SpO2 Sensor Pulse Rhythm Respiratory Rate 21 Respiratory Effort / Characteristics Respiratory Depth Blood Pressure 101/56 L 107/58 L Blood Pressure Mean 77 85 Pulse Oximetry Oxygen Delivery Method Sepsis Recent Fever Within 48 Hours Sepsis New/Unexplained Change in Mental Status Sepsis Action Taken by Nursing 03/31/24 17:00 03/31/24 17:00 03/31/24 17:30 Temperature Temperature Source Pulse Rate 78 78 Pulse Rate from SpO2 Sensor Pulse Rhythm Respiratory Rate 22 21 Respiratory Effort / Characteristics Respiratory Depth Blood Pressure 114/67 Blood Pressure Mean 90 Pulse Oximetry Oxygen Delivery Method Sepsis Recent Fever Within 48 Hours Sepsis New/Unexplained Change in Mental Status Sepsis Action Taken by Nursing 03/31/24 17:31 03/31/24 17:31 Temperature Temperature Source Pulse Rate 78 Pulse Rate from SpO2 Sensor Pulse Rhythm Respiratory Rate 19 Respiratory Effort / Characteristics Respiratory Depth Blood Pressure 108/48 L Blood Pressure Mean 76 Pulse Oximetry Oxygen Delivery Method Sepsis Recent Fever Within 48 Hours Sepsis New/Unexplained Change in Mental Status Sepsis Action Taken by Nursing Laboratory Data 03/31/24 11:30 03/31/24 11:30 Lab Results 03/31/24 03/31/24 03/31/24 Range/Units 11:30 11:54 12:55 WBC 3.95 L (4.8-10.8) K/ul RBC 3.43 L (4.70-6.10) M/uL Hgb 9.5 L (14.0-18.0) g/dl Hct 32.9 L (42.0-52.0) % MCV 95.9 (80.0-100.0) fL MCH 27.7 (25.0-34.0) pg MCHC 28.9 L (32.0-36.0) g/dL RDW Std Deviation 54.9 H (36.4-46.3) fL RDW Coeff of Humberto 15.8 H (11.5-14.5) % Plt Count 119 L (130-400) K/uL MPV 12.4 (9.4-12.4) fL Immature Gran % (Auto) 0.5 % Neut % (Auto) 90.9 % Lymph % (Auto) 3.5 % [place] % (Auto) 4.6 % Eos % (Auto) 0.0 % Baso % (Auto) 0.5 % Neut # (Auto) 3.59 (1.40-6.50) K/uL Lymph # (Auto) 0.14 L (1.20-3.40) K/uL [place] # (Auto) 0.18 (0.11-0.59) K/uL Eos # (Auto) 0.00 (0.00-0.50) K/uL Baso # (Auto) 0.02 (0.00-0.20) K/uL Immature Gran # (Auto) 0.02 (0.01-0.20) K/uL Polychromasia 1+ Poikilocytosis Present Tear Drop Cells 2+ Ovalocytes 1+ Acanthocytes (Spur) 1+ PT 40.8 H (9.0-12.0) Seconds INR 4.3 H (0.9-1.1) APTT 40 H (21-31) Seconds PTT Ratio 1.5 Sodium 137 (136-145) mmol/L Potassium 4.8 (3.5-5.1) mmol/L Chloride 105 (98-107) mmol/L Carbon Dioxide 24 (21-32) mmol/L Anion Gap 8 (3-11) BUN 49 H (6-23) mg/dl Creatinine 1.74 H (0.6-1.4) mg/dl Est Cr Clr Drug Dosing Not Reportable Est GFR ( Amer) 40.0 ml/min Est GFR (Non-Af Amer) 34.5 ml/min BUN/Creatinine Ratio 28.2 H (10-20) Glucose 113 H (70-99(Fasting)) mg/dl Lactate 1.6 (0.4-2.0) mmol/L Calcium 9.0 (8.6-10.3) mg/dl Magnesium 2.0 (1.7-2.4) mg/dl Total Bilirubin 1.8 H (0.2-1.0) mg/dl AST 18 (13-39) U/L ALT 10 (7-52) U/L Alkaline Phosphatase 54 (34-104) U/L Troponin I High Sens 31.4 H (0-20) pg/ml B-Natriuretic Peptide 1792 H (0-100) pg/ml Total Protein 6.2 (6.0-8.3) gm/dl Albumin 3.8 (3.4-5.0) gm/dl Globulin 2.4 L (2.5-4.0) gm/dl Albumin/Globulin Ratio 1.6 (0.9-2) Procalcitonin 0.17 (0-0.5) ng/ml Urine Color Dark Yellow Urine Appearance Clear (Clear) Urine pH 5.5 (4.5-7.5) Ur Specific [place] 1.029 (1.000-1.030) Urine Protein 1+ H (Negative) Urine Glucose (UA) Negative (Negative) Urine Ketones 1+ H (Negative) Urine Blood Trace H (Negative) Urine Nitrite Negative (Negative) Urine Bilirubin 1+ H (Negative) Urine Urobilinogen Negative (Negative) Ur Leukocyte Esterase Trace H (Negative) Urine WBC (Auto) 0-5 (0-5) /hpf Urine RBC (Auto) 6-10 H (0-2) /hpf U Hyaline Cast (Auto) 3-5 H (0-2) /lpf U Epithel Cells (Auto) 3-5 H (0-2) /hpf Urine Bacteria (Auto) None Seen (None Seen) SARS-CoV-2 (PCR) (Negative) Influenza Type A (PCR) (Neg) Influenza Type B (PCR) (Neg) RSV (RT-PCR) (Neg) 03/31/24 03/31/24 Range/Units 14:24 Unknown WBC (4.8-10.8) K/ul RBC (4.70-6.10) M/uL Hgb (14.0-18.0) g/dl Hct (42.0-52.0) % MCV (80.0-100.0) fL MCH (25.0-34.0) pg MCHC (32.0-36.0) g/dL RDW Std Deviation (36.4-46.3) fL RDW Coeff of Humberto (11.5-14.5) % Plt Count (130-400) K/uL MPV (9.4-12.4) fL Immature Gran % (Auto) % Neut % (Auto) % Lymph % (Auto) % [place] % (Auto) % Eos % (Auto) % Baso % (Auto) % Neut # (Auto) (1.40-6.50) K/uL Lymph # (Auto) (1.20-3.40) K/uL [place] # (Auto) (0.11-0.59) K/uL Eos # (Auto) (0.00-0.50) K/uL Baso # (Auto) (0.00-0.20) K/uL Immature Gran # (Auto) (0.01-0.20) K/uL Polychromasia Poikilocytosis Tear Drop Cells Ovalocytes Acanthocytes (Spur) PT (9.0-12.0) Seconds INR (0.9-1.1) APTT (21-31) Seconds PTT Ratio Sodium (136-145) mmol/L Potassium (3.5-5.1) mmol/L Chloride (98-107) mmol/L Carbon Dioxide (21-32) mmol/L Anion Gap (3-11) BUN (6-23) mg/dl Creatinine (0.6-1.4) mg/dl Est Cr Clr Drug Dosing Est GFR ( Amer) ml/min Est GFR (Non-Af Amer) ml/min BUN/Creatinine Ratio (10-20) Glucose (70-99(Fasting)) mg/dl Lactate (0.4-2.0) mmol/L Calcium (8.6-10.3) mg/dl Magnesium (1.7-2.4) mg/dl Total Bilirubin (0.2-1.0) mg/dl AST (13-39) U/L ALT (7-52) U/L Alkaline Phosphatase (34-104) U/L Troponin I High Sens 28.2 H (0-20) pg/ml B-Natriuretic Peptide (0-100) pg/ml Total Protein (6.0-8.3) gm/dl Albumin (3.4-5.0) gm/dl Globulin (2.5-4.0) gm/dl Albumin/Globulin Ratio (0.9-2) Procalcitonin (0-0.5) ng/ml Urine Color Urine Appearance (Clear) Urine pH (4.5-7.5) Ur Specific [place] (1.000-1.030) Urine Protein (Negative) Urine Glucose (UA) (Negative) Urine Ketones (Negative) Urine Blood (Negative) Urine Nitrite (Negative) Urine Bilirubin (Negative) Urine Urobilinogen (Negative) Ur Leukocyte Esterase (Negative) Urine WBC (Auto) (0-5) /hpf Urine RBC (Auto) (0-2) /hpf U Hyaline Cast (Auto) (0-2) /lpf U Epithel Cells (Auto) (0-2) /hpf Urine Bacteria (Auto) (None Seen) SARS-CoV-2 (PCR) NEGATIVE (Negative) Influenza Type A (PCR) Negative (Neg) Influenza Type B (PCR) Negative (Neg) RSV (RT-PCR) Negative (Neg) Administered Medications Discontinued Medications Ceftriaxone Sodium (Rocephin) 2,000 mg in 50 mls @ 100 mls/hr IV NOW STA Stop: 03/31/24 14:24 Last Infusion: 03/31/24 15:27 Dose: Infused Documented By: Admin: 03/31/24 14:52 Dose: 100 mls/hr Documented By: [facility] [place] Imaging Data Radiologist's Impression: Chest X-Ray 03/31/24 11:28 SINGLE VIEW CHEST CLINICAL HISTORY: Sepsis. FINDINGS: A PA chest radiograph is compared to study dated 01/25/2024. Correlation is made with chest CT dated 05/17/2022. The patient is status post midline sternotomy and cardiac valve surgery. A single-lead cardiac pacemaker and a right internal jugular central venous infusion port are unchanged in position. The heart is enlarged noting atherosclerotic calcification of the thoracic aorta. There is pulmonary vascular congestion. Bilateral airspace opacities likely represent interstitial edema. Small pleural effusions are suspected. No pneumothorax is seen. The skeletal structures are osteopenic. There are chronic/healed right-sided rib fractures. Degenerative change is noted in the shoulders and spine. IMPRESSION: 1. Cardiomegaly and cardiac pacemaker with evidence of congestive failure. 2. Bilateral airspace opacities likely represent pulmonary edema. Correlate clinically. 3. Suspect small pleural effusions. ACT 112: Negative or not required by law. Electronically signed by: Caleb Sams M.D. 03/31/2024 12:14 PM Abdomen/Pelvis CT 03/31/24 12:15 CT SCAN OF THE ABDOMEN AND PELVIS WITHOUT IV CONTRAST CLINICAL HISTORY: Urinary tract infection. Diarrhea. Change in mental status. COMPARISON STUDY: Abdominal CT dated 05/17/2022. TECHNIQUE: CT scan of the abdomen and pelvis is performed from the lung bases to the proximal femora. Images are reviewed in the axial, sagittal, and coronal planes. IV contrast was not administered for this examination. Note that the examination was performed in significantly suboptimal fashion without oral and IV contrast. There is also motion artifact, as well as streak artifact from the arms which could not be elevated of the abdomen. A dose lowering technique was utilized adhering to the principles of ALARA. CT DOSE: 1675.92 mGy.cm FINDINGS: Lung bases: The patient is status post midline sternotomy and cardiac valve surgeries. Pacemaker leads are in place. The heart is enlarged and without pericardial effusion. The coronary arteries are densely calcified. There is diminished attenuation of the cardiac blood pool last compared to the myocardium suggesting anemia. There are small pleural effusions with dependent atelectasis. Calcified pleural plaque is again seen at the right lung base. A small hiatal hernia is noted. Gynecomastia is observed. Liver: The unenhanced liver is normal in size, contour, and attenuation. There is no intrahepatic biliary ductal dilatation. Gallbladder: There are calcified gallstones with no CT evidence of acute cholecystitis. Spleen: Normal in size and attenuation. Pancreas: The unenhanced pancreas is moderately atrophic and grossly unremarkable. Adrenal glands: Unremarkable. Kidneys: The unenhanced kidneys demonstrate mild cortical atrophy and are without hydronephrosis. There are punctate nonobstructing bilateral renal calculi. No ureteral stone is seen. There is no evidence of contour deforming renal mass lesion. Abdominal vasculature: There is advanced atherosclerotic calcification and ectasia of the abdominal aorta. 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 There is aneurysmal dilatation of the left internal iliac artery which measures up to 2.0 cm.. Bowel: There is postsurgical change from colon resections with colocolonic anastomosis. No bowel obstruction is seen. There are scattered diverticula of the remaining colon without CT evidence of acute diverticulitis. There is liquid stool throughout the residual colon. Mild rectal wall thickening is observed. Peritoneum: There is trace perihepatic and pelvic ascites. No intraperitoneal free air is identified. Lymphadenopathy: None. Pelvic viscera: The prostate gland is enlarged and heterogeneous. The bladder is largely decompressed, and the wall is thickened/trabeculated indicating chronic outlet obstruction. There is persistent infiltration. There are bilateral fat- containing inguinal hernias. Skeletal structures: The skeletal structures are osteopenic. 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 There is moderate lumbosacral spondylosis. No lytic or blastic lesions are clearly seen. There are subacute-appearing bilateral rib fractures. Soft tissues: There is anasarca of the body wall. IMPRESSION: 1. Suboptimal examination without oral and IV contrast. There is also streak and motion artifact. 2. Cardiomegaly and small pleural effusions. 3. Anasarca of the body wall and trace abdominopelvic ascites suggest fluid overload. 4. There is evidence of chronic bladder outlet obstruction as well as persistent infiltration. Correlate with clinical findings and urinalysis for evidence of cystitis. 5. There is liquid stool seen throughout the colon with mild rectal wall thickening. Correlate clinically for evidence of a nonspecific proctitis/diarrheal illness. 6. Cholelithiasis. 7. Bilateral nephrolithiasis. 8. Additional findings as above. ACT 112: Negative or not required by law. Electronically signed by: Caleb Sams M.D. 03/31/2024 1:[address] 03/31/24 12:15 CT SCAN OF THE BRAIN WITHOUT IV CONTRAST CLINICAL HISTORY: Change in mental status. COMPARISON STUDY: CT of the brain dated 11/18/2016. TECHNIQUE: Unenhanced axial CT scan of the brain is performed from the vertex to the skull base. A dose lowering technique was utilized adhering to the principles of ALARA. FINDINGS: Brain parenchyma: There is age-related involutional change noting moderate subcortical and periventricular microangiopathic disease. There is no hemorrhage, mass effect, or evidence of acute territorial ischemia by CT criteria. Zarate-white matter differentiation is preserved. No extra-axial fluid collection is seen. 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 Ventricles, sulci, cisterns: Prominent secondary to involutional change. Intracranial vasculature: There is atherosclerotic calcification of the cavernous carotid and vertebral arteries. Calvarium: Unremarkable. Sinuses and mastoids: The visualized paranasal sinuses are clear. The mastoid air cells are well pneumatized. Orbits: The bony orbits are grossly intact. IMPRESSION: There is no hemorrhage, mass effect, or evidence of acute territorial ischemia by CT criteria. ACT 112: Negative or not required by law. Electronically signed by: Caleb Sams M.D. 03/31/2024 1:06 PM Discharge Plan Visit Data Chief Complaint: Urinary Symptoms Stated Complaint: DXD UTI 03/30/24 - [facility] ED Provider: Nasir Salazar Discharge Problem: CHF (congestive heart failure), AMS (altered mental status), Weakness Patient Disposition: Admitted As Inpatient Discharge Instructions Interventions: ED Discharge Assessment Last Done: 03/31/24 17:51 Forms Stand Alone Forms: My [employer] Prescriptions Prescriptions: No Action nitrofurantoin monohyd/m-cryst [Macrobid] 100 mg capsule 100 mg PO Q12H 7 Days Qty: 14 0RF Rx Instructions: must administer with a meal/food ferrous sulfate 325 mg (65 mg iron) tablet 325 mg PO QAM polyethylene glycol 3350 [Miralax] 17 gram Powder In Packet 17 g PO QAM prednisone 5 mg Tablet 5 mg PO QAM esomeprazole magnesium [Nexium] 40 mg Capsule,Delayed Release(Dr/Ec) 40 mg PO BID warfarin 5 mg Tablet 2.5 mg PO [id number] Rx Instructions: 2.5mg -, skip saturday dose per MTM albuterol sulfate 90 mcg/actuation Hfa Aerosol Inhaler 2 puff INHALATION Q4 PRN (Reason: Wheezing) coenzyme Q10 [CoQ-10] 100 mg Capsule 100 mg PO QAM rosuvastatin [Crestor] 10 mg Tablet 10 mg PO QPM cyanocobalamin (vitamin B-12) [Vitamin B-12] 1,000 mcg Tablet 1,000 mcg PO DAILY cholecalciferol (vitamin D3) [Vitamin D3] 25 mcg (1,000 unit) Tablet 25 mcg PO QAM magnesium 250 mg Tablet 250 mg PO DAILY ipratropium-albuterol 0.5 mg-3 mg(2.5 mg base)/3 mL Solution For Nebulization 3 ml INHALATION Q6H PRN (Reason: Wheezing) spironolactone 25 mg tablet 12.5 mg PO QAM levothyroxine 125 mcg tablet 125 mcg PO QAM zolpidem 5 mg tablet 5 mg PO HS PRN (Reason: restless leg syndrome) Spiriva Respimat 2.5 mcg/actuation Mist 2 puff INHALATION DAILY tamsulosin 0.4 mg capsule 0.4 mg PO HS furosemide 40 mg tablet 40 mg PO DAILY PRN (Reason: Weight Gain) Rx Instructions: PRN for weight gain of over 4 lbs in 1 week Referrals Referrals: Bell Mcqueen MD [Primary Care Provider] - Discharge Problem: CHF (congestive heart failure) Qualifiers: Heart failure type: unspecified Heart failure chronicity: unspecified Qualified Code(s): I50.9 - Heart failure, unspecified AMS (altered mental status) Qualifiers: Altered mental status type: unspecified Qualified Code(s): R41.82 - Altered mental status, unspecified
--- NOTE | 2024-03-31 14:40 | History & Physical Report ---
Date of Service March 31, 2024 Assessment & Plan (1) Acute metabolic encephalopathy: (2) Acute decompensated heart failure: (3) Status post aortic valve replacement: (4) Status post mitral valve repair: (5) Atrial fibrillation: (6) Pacemaker: (7) Acute kidney injury superimposed on CKD: (8) Testicular discomfort: (9) Spermatocele of epididymis, single: (10) Nocturnal hypoxemia: Plan This is a 89yo M with a PMH of atrial fibrillation on coumadin, pulm HTN, dyslipidemia, hypothyroidism, asthma, asbestos history with restrictive lung disease, HFpEF, history of bladder cancer BPH, CKD III, h/o aortic valve replacement, insomnia with Ambien use and other medical problems listed below who was brought in by for worsening confusion. History obtained per chart review and at bedside due to patient's altered status. Acute metabolic encephalopathy In setting of ? infection vs orchitis prophylaxis recently on doxy and switched to Macrobid yesterday, possible gastroenteritis with diarrhea overnight Continue empiric abx coverage with Rocephin for now, follow blood culture Delirium precautions Diarrhea In setting of Macrobid vs gastroenteritis Stool culture pending Transitioned to Rocephin Supportive care Acute decompensated HF S/p aortic Valve replacement, Bovine valve Hx of mitral valve repair Noted to be in decompensated HF during January admission in setting of viral illness, cardiology helpful with diuresis recs given medically complex noting BLE edema x 2 weeks, did complete 5 days of 40mg PO Lasix starting 03/[address] Rainey, has since resumed "lax" 3x/week lasix 40mg PRN dosing, per * 2D ECHO from January 2024: Left ventricle is normal in size. Moderate concentric LVH. Apical wall motion abnormality may reflect pacemaker activa tion. Flattened septum is consistent with RV pressure overload. EF 55 to 60%. Bioprosthetic aortic valve. Gradient is normal for prosthetic aortic valve. Annuloplasty ring and prior mitral valve repair is present with thickening of the mitral valve leaflets. Moderate mitral stenosis is present. Mild mitral and tricuspid regurgitation. Right ventricular systolic pressure is elevated to be 50 to 60 mmHg Saturating at 95% on room air, BNP 1792 CXR today with cardiomegaly and cardiac pacemaker with evidence of congestive failure. Bilateral airspace opacities likely represent pulmonary edema. Correlate clinically Routine cards consult placed Hold spironolactone. Did not give IV lasix in ED due to KADIE, GI losses Gabriel placed for accurate I&Os, daily weights KADIE superimposed on CKD Cr 1.7 today in setting of GI losses, Macrobid Baseline Cr ~ 1.2-1.4 Monitor renal function with daily BMP Persistent atrial fibrillation Supratherapeutic INR INR 4.3 - hold PM coumadin course Moderate persistent asthma COPD Nocturnal Hypoxemia Denies recent resp issues or URI Continue home inhalers, baseline 2L HS Hx Tachy/Pb Syndrome s/p Pacemaker HTN HLD Continue spironolactone, rosuvastatin Continue Coumadin Needs follow-up with Coumadin clinic on discharge Tobacco use disorder Counseled to quit chewing tobacco Adding nicotine patch Chronic Osteoarthritis Continue daily 5mg Prednisone, follows with rheum Hypothyroidism Continue levothyroxine 125 mcg daily BPH Continue flomax 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 Louis and Urology, Dr. Borges consulted as above RLS Plan to hold home Ambien for now given lethargic status, resume as appropriate DVT Ppx: hold evening coumadin dose 2/2 supratherapeutic INR Code status: FULL PCP: Richar Dispo: Admitted to PCU Patient seen in collaboration with Dr. Argueta. Please see addendum. I spent a total of 75 minutes coordinating, documenting, and providing care for this patient excluding time spent in the performance of separately billed services. History of Present Illness Chief Complaint: confusion Primary Care Provider: Bell Mcqueen MD This is a 89yo M with a PMH of atrial fibrillation on coumadin, pulm HTN, dyslipidemia, hypothyroidism, asthma, asbestos history with restrictive lung disease, HFpEF, history of bladder cancer BPH, CKD III, h/o aortic valve replacement, insomnia with Ambien use and other medical problems listed below who was brought in by for worsening confusion. History obtained per chart review and at bedside due to patient's altered status. Recently admitted in January 2024 with RSV and had decompensated heart failure while here. 2D echo at that time revealed moderate concentric LVH, apical wall motion abnormality may reflect pacemaker activation. Flattened septum is consistent with RV pressure overload. EF 55-60%. Bioprosthetic aortic valve. Gradient is normal for prosthetic aortic valve. Annuloplasty ring and prior mitral valve repair is present with thickening of the mitral valve leaflets. Moderate mitral stenosis is present. Mild mitral and tricuspid regurgitation. Right ventricular systolic pressure is elevated to be 50 to 60 mmHg. Has been following with [place] [facility] for testicular swelling and discomfort and was diagnosed with spermatocele of epididymis, started on doxy for empiric coverage of possible orchitis and then transitioned to Macrobid yesterday, per at bedside. Recent micro reviewed - most recent urine culture negative 03/19 without growth. For scrotal swelling, urology recommending scrotal support, icing, OTC pain meds for pain. Noted swelling and hopes for cardiology to weigh in on diuresis at upcoming appt (due to see Genny Donahue 04/08). notes that patient has been significantly more confused, sleeping all day and having diarrhea since yesterday including some diarrhea while sleeping so brought him in for further evaluation. Also notes increased swelling of legs and audible wheezing over the past 2 weeks. Recently was instructed to complete 5 days of Lasix 40mg PO as per Dr. Rainey's direction over messaging on 03/20 and to contact if no improvement. Patient has reportedly continued ot have lower extremity swelling but states he has transitioned back to Lasix 20- 40mg 3x/week PRN which admits he is lax about if he has appointments or will out of the house. With ongoing issues this past week, she did not think to reach back out to cardiology and brought to ED today because of confusion and diarrhea. Allergies Allergy/AdvReac Type Severity Reaction Status Date / Time Penicillins Allergy Intermediate RASH/EL-ORBITAL Verified 03/31/24 14:27 EDEMA Home Medications Medication Instructions Recorded Confirmed Type albuterol sulfate 90 mcg/actuation 2 puff inhalation Q4 PRN Wheezing 03/25/19 03/31/24 History aerosol inhaler coenzyme Q10 100 mg capsule 100 mg PO QAM 03/25/19 03/31/24 History (CoQ-10) esomeprazole magnesium 40 mg 40 mg PO BID 03/25/19 03/31/24 History capsule,delayed release (Nexium) polyethylene glycol 3350 17 gram 17 g PO QAM 03/25/19 03/31/24 History oral powder packet (Miralax) prednisone 5 mg tablet 5 mg PO QAM 03/25/19 03/31/24 History rosuvastatin 10 mg tablet (Crestor) 10 mg PO QPM 03/25/19 03/31/24 History warfarin 5 mg tablet 2.5 mg PO [id number] 03/25/19 03/31/24 History ferrous sulfate 325 mg (65 mg 325 mg PO QAM 04/25/21 03/31/24 History iron) tablet furosemide 40 mg tablet 40 mg PO DAILY PRN Weight Gain 01/23/24 03/31/24 History levothyroxine 125 mcg tablet 125 mcg PO QAM 01/23/24 03/31/24 History spironolactone 25 mg tablet 12.5 mg PO QAM 01/23/24 03/31/24 History tamsulosin 0.4 mg capsule 0.4 mg PO HS freqency 01/23/24 03/31/24 History tiotropium bromide 2.5 2 puff inhalation DAILY 01/23/24 03/31/24 History mcg/actuation mist for inhalation (Spiriva Respimat) zolpidem 5 mg tablet 5 mg PO HS PRN restless leg 01/23/24 03/31/24 History syndrome nitrofurantoin 100 mg PO Q12H 7 days #14 caps 03/30/24 03/31/24 Rx monohydrate/macrocrystals 100 mg capsule (Macrobid) cholecalciferol (vitamin D3) 25 25 mcg PO QAM 03/31/24 03/31/24 History mcg (1,000 unit) tablet (Vitamin D3) cyanocobalamin (vitamin B-12) 1,000 mcg PO DAILY 03/31/24 03/31/24 History 1,000 mcg tablet (Vitamin B-12) ipratropium 0.5 mg-albuterol 3 mg 3 ml inhalation Q6H PRN Wheezing 03/31/24 03/31/24 History (2.5 mg base)/3 mL nebulization soln magnesium 250 mg tablet 250 mg PO DAILY 03/31/24 03/31/24 History Past Med/Surg History Problem List (Updated 03/31/24 @ 16:03 by Darling Bautista PA-C) Acute metabolic encephalopathy Nocturnal hypoxemia Acute kidney injury superimposed on CKD Acute decompensated heart failure Testicular discomfort (Acute) Spermatocele of epididymis, single (Chronic) Community acquired pneumonia (Acute) Congestive heart failure (Acute) Moderate mitral stenosis Pneumonia Mitral stenosis and aortic insufficiency Pulmonary edema cardiac cause RSV (respiratory syncytial virus infection) Asthma CKD (chronic kidney disease), stage III Osteoarthritis Chronic steroid use Atrial fibrillation DX 2003 - ON WARFARIN; follows with Dr. Rainey Status post mitral valve repair Status post aortic valve replacement "bioprosthetic" Metabolic acidosis Acute respiratory failure with hypoxia and hypercarbia History of prostate cancer "had elevated PSA with + biopsy, but repeat biopsies and subsequent PSA's improved" On 11/18/16 10:00 Randy Gilbert wrote "2007" Encounter for pre-operative examination Pacemaker Bladder cancer Low back pain Lumbar spondylosis Medical History (Updated 03/31/24 @ 16:03 by Darling Bautista PA-C) Bladder cancer dx 05/2021; TURBT, chemo + radiation Bladder tumor History of basal cell carcinoma History of rectal fissure History of COVID-19 DX'D 10/2020 THRU [facility]-SOB, PRODUCTIVE COUGH, BODY ACHES, FEVER-RECOVERED AT HOME-SYMPTOMS RESOLVED SOB (shortness of breath) on exertion Arthritis Anticoagulated on Coumadin Heart disease Prostatitis Stark's esophagus GERD (gastroesophageal reflux disease) History of pulmonary embolism FOLLOWING SHOULDER SURGERY APPROX 5 YEARS -NO ISSUES SINCE Pacemaker TACHY-PB SYNDROME. ALSO HX OF A-FIB. LAST CHECKED 11/2021 - [facility] Tachy-pb syndrome History of atrial flutter Restless legs syndrome Dyslipidemia Carotid artery disease Spinal stenosis of lumbar region History of paroxysmal supraventricular tachycardia BPH (benign prostatic hypertrophy) Diverticular disease of colon COPD (chronic obstructive pulmonary disease) Hypertension Surgical History History of bladder surgery TURBT 05/29/2021 [facility] History of esophagogastroduodenoscopy (EGD) MULTIPLE History of tonsillectomy History of total knee replacement LEFT KNEE History of herniorrhaphy History of surgery MOHS PROCEDURE ON FACE History of colonoscopy History of bowel resection S/T DIVERTICULITIS History of arthroscopy B/L SHOULDERS History of cardiovascular surgery MITRAL VALVE REPAIR[place] [place] History of heart valve replacement AORTIC VALVE REPLACEMENT (TISSUE[place] [place] Status post inguinal hernia repair Status post cataract extraction Family History Brother Diabetes Cancer Esophageal Cancer Mother Colorectal cancer Lung cancer Social History Smoking Status: Never smoker Tobacco Type: Smokeless Tobacco (Dip or Chew) Cigarettes Per Day: 0; Second Hand Exposure: No; Do You Dip or Chew Tobacco: Yes (1 can every 3-4 days); Hx Alcohol Use: No Hx Substance Use: No Preferred Language: Spanish Communication Ability: Impaired Pilot Captain Required: No Beliefs That Will Affect Care: None marital status: Current Living Situation: Spouse current occupational status: retired Feels Safe at Home: Yes Diet: regular caffeine: No during the past year weight has: remained stable Physical Activity Frequency: Other Physical Activity Frequency Comment: "Does alot of yard work" Assistive Devices: Oxygen - at Night Review of Systems Review of Systems: At least ten systems reviewed and negative except as noted in the HPI. Physical Exam Physical Exam: Please see Dr. Argueta' note for physical exam. Results & Data Results & Data Vital Signs (Past 12 Hours) Vital Signs Temp Pulse Resp BP Pulse Ox O2 Del Method 03/31/24 13:02 88 03/31/24 13:00 88 22 95 03/31/24 13:00 100/65 03/31/24 11:23 36.5 C 68 20 108/47 L 97 Room Air Laboratory Results Short CBC 03/31/24 Range/Units 11:30 WBC 3.95 L (4.8-10.8) K/ul Hgb 9.5 L (14.0-18.0) g/dl Hct 32.9 L (42.0-52.0) % Plt Count 119 L (130-400) K/uL BMP 03/31/24 11:30 Sodium 137 Potassium 4.8 Chloride 105 Carbon Dioxide 24 BUN 49 H Creatinine 1.74 H Glucose 113 H Calcium 9.0 Liver Function 03/31/24 Range/Units 11:30 Total Bilirubin 1.8 H (0.2-1.0) mg/dl AST 18 (13-39) U/L ALT 10 (7-52) U/L Alkaline Phosphatase 54 (34-104) U/L Albumin 3.8 (3.4-5.0) gm/dl Urine 03/31/24 Range/Units 11:54 Urine Color Dark Yellow Urine Appearance Clear (Clear) Urine pH 5.5 (4.5-7.5) Ur Specific [place] 1.029 (1.000-1.030) Urine Protein 1+ H (Negative) Urine Glucose (UA) Negative (Negative) Diagnostic Findings Chest X-Ray 03/31/24 11:28 SINGLE VIEW CHEST CLINICAL HISTORY: Sepsis. FINDINGS: A PA chest radiograph is compared to study dated 01/25/2024. Correlation is made with chest CT dated 05/17/2022. The patient is status post midline sternotomy and cardiac valve surgery. A single-lead cardiac pacemaker and a right internal jugular central venous infusion port are unchanged in position. The heart is enlarged noting atherosclerotic calcification of the thoracic aorta. There is pulmonary vascular congestion. Bilateral airspace opacities likely represent interstitial edema. Small pleural effusions are suspected. No pneumothorax is seen. The skeletal structures are osteopenic. There are chronic/healed right-sided rib fractures. Degenerative change is noted in the shoulders and spine. IMPRESSION: 1. Cardiomegaly and cardiac pacemaker with evidence of congestive failure. 2. Bilateral airspace opacities likely represent pulmonary edema. Correlate clinically. 3. Suspect small pleural effusions. ACT 112: Negative or not required by law. Electronically signed by: Caleb Sams M.D. 03/31/2024 12:14 PM Abdomen/Pelvis CT 03/31/24 12:15 CT SCAN OF THE ABDOMEN AND PELVIS WITHOUT IV CONTRAST CLINICAL HISTORY: Urinary tract infection. Diarrhea. Change in mental status. COMPARISON STUDY: Abdominal CT dated 05/17/2022. TECHNIQUE: CT scan of the abdomen and pelvis is performed from the lung bases to the proximal femora. Images are reviewed in the axial, sagittal, and coronal planes. IV contrast was not administered for this examination. Note that the examination was performed in significantly suboptimal fashion without oral and IV contrast. There is also motion artifact, as well as streak artifact from the arms which could not be elevated of the abdomen. A dose lowering technique was u tilized adhering to the principles of ALARA. CT DOSE: 1675.92 mGy.cm FINDINGS: Lung bases: The patient is status post midline sternotomy and cardiac valve surgeries. Pacemaker leads are in place. The heart is enlarged and without pericardial effusion. The coronary arteries are densely calcified. There is diminished attenuation of the cardiac blood pool last compared to the myocardium suggesting anemia. There are small pleural effusions with dependent atelectasis. Calcified pleural plaque is again seen at the right lung base. A small hiatal hernia is noted. Gynecomastia is observed. Liver: The unenhanced liver is normal in size, contour, and attenuation. There is no intrahepatic biliary ductal dilatation. Gallbladder: There are calcified gallstones with no CT evidence of acute cho lecystitis. Spleen: Normal in size and attenuation. Pancreas: The unenhanced pancreas is moderately atrophic and grossly unremarkable. Adrenal glands: Unremarkable. Kidneys: The unenhanced kidneys demonstrate mild cortical atrophy and are without hydronephrosis. There are punctate nonobstructing bilateral renal calculi. No ureteral stone is seen. There is no evidence of contour deforming r enal mass lesion. Abdominal vasculature: There is advanced atherosclerotic calcification and ectasia of the abdominal aorta. 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 There is aneurysmal dilatation of the left internal iliac artery which measures up to 2.0 cm.. Bowel: There is postsurgical change from colon resections with colocolonic anastomosis. No bowel obstruction is seen. There are scattered diverticula of the remaining colon without CT evidence of acute diverticulitis. There is liquid stool throughout the residual colon. Mild rectal wall thickening is observed. Peritoneum: There is trace perihepatic and pelvic ascites. No intraperitoneal free air is identified. Lymphadenopathy: None. Pelvic viscera: The prostate gland is enlarged and heterogeneous. The bladder is largely decompressed, and the wall is thickened/trabeculated indicating chronic outlet obstruction. There is persistent infiltration. There are bilateral fat-c ontaining inguinal hernias. Skeletal structures: The skeletal structures are osteopenic. 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 There is moderate lumbosacral spondylosis. No lytic or blastic lesions are clearly seen. There are subacute-appearing bilateral rib fractures. Soft tissues: There is anasarca of the body wall. IMPRESSION: 1. Suboptimal examination without oral and IV contrast. There is also streak and motion artifact. 2. Cardiomegaly and small pleural effusions. 3. Anasarca of the body wall and trace abdominopelvic ascites suggest fluid overload. 4. There is evidence of chronic bladder outlet obstruction as well as persistent infiltration. Correlate with clinical findings and urinalysis for evidence of cystitis. 5. There is liquid stool seen throughout the colon with mild rectal wall thickening. Correlate clinically for evidence of a nonspecific proctitis/diarrheal illness. 6. Cholelithiasis. 7. Bilateral nephrolithiasis. 8. Additional findings as above. ACT 112: Negative or not required by law. Electronically signed by: Caleb Sams M.D. 03/31/2024 1:[address] 03/31/24 12:15 CT SCAN OF THE BRAIN WITHOUT IV CONTRAST CLINICAL HISTORY: Change in mental status. COMPARISON STUDY: CT of the brain dated 11/18/2016. TECHNIQUE: Unenhanced axial CT scan of the brain is performed from the vertex to the skull base. A dose lowering technique was utilized adhering to the principles of ALARA. FINDINGS: Brain parenchyma: There is age-related involutional change noting moderate subcortical and periventricular microangiopathic disease. There is no hemorrhage, mass effect, or evidence of acute territorial ischemia by CT criteria. Zarate-white matter differentiation is preserved. No extra-axial fluid collection is seen. 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 Ventricles, sulci, cisterns: Prominent secondary to involutional change. Intracranial vasculature: There is atherosclerotic calcification of the cavernous carotid and vertebral arteries. Calvarium: Unremarkable. Sinuses and mastoids: The visualized paranasal sinuses are clear. The mastoid air cells are well pneumatized. Orbits: The bony orbits are grossly intact. IMPRESSION: There is no hemorrhage, mass effect, or evidence of acute territorial ischemia by CT criteria. ACT 112: Negative or not required by law. Electronically signed by: Caleb Sams M.D. 03/31/2024 1:06 PM Supervising Physician Co-Signing Physician Notes I have seen and discussed the case with the collaborating advanced practitioner. I agree with the above H&P. I have reviewed and confirmed the patients medical history, the findings on physical examination, and the patients diagnosis and treatment plan with Michele SOSA and agree with the information documented. In short, Mr. Robles is an 89 year old gentleman with history of atrial fibrillation on coumadin, pulm HTN, dyslipidemia, hypothyroidism, asthma, asbestos history with restrictive lung disease, HFpEF, history of bladder cancer BPH, CKD III, h/o aortic valve replacement who is admitted for evaluation of encephalopathy. Patient recently following with urology for scrotal pain/swelling. Started on doxycycline. Imaging revealed spermatocele. Patient informed to transition to macrobid--taking first dose last evening, however, subsequently more confused this morning. Patient's gave majority of history. She reports since discharge he has been inconsistent with lasix--noting that he doesnt always take as he was directed given appointments/obligations throughout the day. He otherwise has been in stable condition until the scrotal swelling. This morning while he was altered, he experienced an episode of incontinent stool; however, states prior he had not been endorsing in other symptoms outside of the swelling of legs and scrotal pain. GENERAL APPEARANCE: AxOx1 pleasant but delirious , no acute distress. HEENT: NC, AT. MMM. EOMI, clear conjunctiva, oropharynx clear. NECK: Supple without lymphadenopathy. No stiffness or restricted ROM. HEART: irregularly irregular ?JERRY LUNGS: CTAB, moving air well. No crackles or wheezes are heard. ABDOMEN: Soft, nontender, nondistended with good bowel sounds heard. : boggy, slight scrotal edema, tenderness to slight palpation EXTREMITIES: bilateral 2+edema up to knees NEUROLOGICAL: Grossly nonfocal. Alert and oriented, moving all 4 extremities. CN not formally tested but appear grossly intact. Skin: Warm and dry without any rash. #Acute metabolic encephalopathy likely iso poorly treated orchitis Received on Rocephin empirically delirium precautions #Bilateral lower extremity edema, c/f acute on on chronic HFpEF BNP elevated, however, appears intravascularly dry LE extremity edema noted, dry mucous membranes, report of diarrheal/GI illness Report of noncompliance with diuretic at home Will hold on IV diuresis at this time given complex volume status, poor po and KADIE (eevated BUN/cr as well) -Cards consult Admit tele Hold spironolactone iso kadie #Orchitis -recently on doxycycline, however transitioned to nitrofurantoin, only received one dose still with scrotal pain, erythema tenderness,bogginess to scrotum -IV CTX #Diarrhea report of episode of diarrheal incontinence/ with recent gi illness as well Stool cultures #Chronic osteoarthritis continue pred #Persistent Atrial Fibrillation #Hx Tachy/Pb Syndrome s/p Pacemaker #S/p aortic Valve replacement, Bovine valve #s/p mitral valve repair Continue metoprolol #Supratherapeutic INR -Potentially related to infection, abx (doxycycline), kadie INR 03/20 now 3.4 -Hold warfarin -Repeat INR #COPD no wheezing, stable continue spiriva #insominia hold zolpidem rest of plan as above I spent a total of 35 minutes coordinating, documenting, and providing care for this patient excluding time spent in the performance of separately billed services. All of the aforementioned completed outside of collaborating with the assigned advanced practitioner for a full treatment plan. I have reviewed the advanced practitioner's documentation, and I agree with, and take responsibility for the plan of care
[2024-03-31] MEDS: cefTRIAXone SODIUM 2,000 MG/50 ML BAG IV STA (14:52)
--- NOTE | 2024-03-31 17:48 | Electrocardiogram Report ---
Test Reason : Blood Pressure : / mmHG Vent. Rate : 087 BPM Atrial Rate : 113 BPM P-R Int : 000 ms QRS Dur : 112 ms QT Int : 418 ms P-R-T Axes : 000 -58 217 degrees QTc Int : 502 ms Atrial fibrillation Left anterior fascicular block Moderate voltage criteria for LVH, may be normal variant Abnormal ECG Confirmed by Lul Melo ([id number]) on 03/31/2024 5:48:19 PM Referred By: REFERRED SELF Confirmed By:Darci Melo
[2024-03-31] MEDS ORDERED: POLYETHYLENE (MIRALAX) 17 GM PACK PO PRN (19:30)
[2024-03-31] MEDS ORDERED: ALBUT/IPRATROP 3MG/0.5MG NEB 3 ML VIAL INH PRN (19:30)
[2024-03-31] MEDS ORDERED: ACETAMINOPHEN 325 MG TAB PO PRN (19:30)
[2024-03-31] MEDS ORDERED: ONDANSETRON INJ 2 MG/ML 2 ML VIAL IV PRN (19:30)
[2024-03-31] MEDS ORDERED: ALBUTEROL HFA 8 GM INHALER INH PRN (19:30)
--- NOTE | 2024-03-31 19:33 | Urology Consultation ---
Date of Consultation March 31, 2024 Assessment & Plan (1) Acute metabolic encephalopathy: The patient has been admitted on the hospital service. From a urologic perspective we recommend the following: There is concern the patient may be suffering from metabolic encephalopathy from a infection however the patient does not appear to have any evidence of urinary tract infection. he does have a Gabriel catheter in place which we would recommend continue for maximal drainage The primary service has placed the patient on antibiotics in form of Rocephin and appropriate cultures have been sent. Culture should be followed and antibiotics be tailored based on his clinical response and culture results According to the patient's he was supposed to have a repeat testicular ultrasound and follow-up of the previously performed testicular ultrasound. We will make sure that this study is ordered while he is hospitalized Will monitor the patient's clinical response to the above and follow-up on his ultrasound with additional recommendations to follow thereafter Supervising Physician Co-Signing Physician Notes I have discussed Mr. Robles's case with oJse C Felton PA-C and agree with the above documentation. Current concern for epididymitis. He is on broad-spectrum antibiotics. Can narrow as culture data becomes available. No evidence of abscess or fluid collection that needs to be drained at this point. -Steven Borges MD. History of Present Illness Reason for Consultation: Testicular swelling Attending Physician: Olena Argueta MD History of Present Illness This is an 89-year-old male who follows with Dr. Darwin Gardner of [facility] urology. The patient underwent a cystoscopy with transurethral section of a bladder tumor on 12/18/2021. Since that time the patient's notes that he has been having some ongoing issues with testicular pain and swelling. The patient ultimately developed difficulty urinating and worsening testicular swelling so he called the urology office. Secondary to his t esticular swelling the patient did have a scrotal ultrasound on 03/19/2024. This showed no acute sonographic abnormalities involving the testicles. There was some diffuse bilateral scrotal wall thickening and edema. There is concern that patient may have been suffering from epididymitis, and he was therefore placed on doxycycline. The patient did have a urine culture sent from 04-10 and these results revealed no urinary tract infection. The patient presented to the emergency department today with his who did help supplement the history. According to the patient's he has been having some worsening confusion over the past several days and he has also been having some diarrhea. The patient denies any back or flank pain. The patient notes that he has continued swelling of his testicles with some pain particularly with palpation of his testicles. He does not report any dysuria at the present time. According to the he has not had any fevers, shakes, or chills and there is been no reported nausea or vomiting. In the emergency department today the patient underwent labs and imaging which I independently reviewed. A CT scan of the head showed no acute stroke or hemor rhage. Chest x-ray showed bilateral airspace opacities concerning for pulmonary edema. He also underwent a CT scan of the abdomen pelvis that showed evidence of chronic bladder outlet obstruction and infiltration of the bladder. Patient was noted to have small bilateral pleural effusions. Labs included CBC her white blood cell count was 3.9. Hemoglobin and hematocrit were 9.5 and 32.9. Platelet count was 119,000. Coagulation studies revealed an INR of 4.3. Chemistry profile showed sodium and potassium were normal. His BUN and creatinine were 49 and 1.7 (review of patient's creatinine over the past several months notes that has run anywhere from 1.2-1.6) lactic acid level was noted to be normal. A proBNP was elevated at 1792. Urinalysis was negative for nitrites but did show trace leukocyte Estrace and did not have any significant pyuria or bacteria. Patient was tested for COVID, influenza AMB, as well as RSV all of which were negative. At the time my interview the patient was resting comfortably in bed and he was in no distress. Allergies Allergy/AdvReac Type Severity Reaction Status Date / Time Penicillins Allergy Intermediate RASH/EL-ORBITAL Verified 03/31/24 14:27 EDEMA Home Medications Medication Instructions Recorded Confirmed Type albuterol sulfate 90 mcg/actuation 2 puff inhalation Q4 PRN Wheezing 03/25/19 03/31/24 History aerosol inhaler coenzyme Q10 100 mg capsule 100 mg PO QAM 03/25/19 03/31/24 History (CoQ-10) esomeprazole magnesium 40 mg 40 mg PO BID 03/25/19 03/31/24 History capsule,delayed release (Nexium) polyethylene glycol 3350 17 gram 17 g PO QAM 03/25/19 03/31/24 History oral powder packet (Miralax) prednisone 5 mg tablet 5 mg PO QAM 03/25/19 03/31/24 History rosuvastatin 10 mg tablet (Crestor) 10 mg PO QPM 03/25/19 03/31/24 History warfarin 5 mg tablet 2.5 mg PO 6XWK 03/25/19 03/31/24 History ferrous sulfate 325 mg (65 mg 325 mg PO QAM 04/25/21 03/31/24 History iron) tablet furosemide 40 mg tablet 40 mg PO DAILY PRN Weight Gain 01/23/24 03/31/24 History levothyroxine 125 mcg tablet 125 mcg PO QAM 01/23/24 03/31/24 History spironolactone 25 mg tablet 12.5 mg PO QAM 01/23/24 03/31/24 History tamsulosin 0.4 mg capsule 0.4 mg PO HS freqency 01/23/24 03/31/24 History tiotropium bromide 2.5 2 puff inhalation DAILY 01/23/24 03/31/24 History mcg/actuation mist for inhalation (Spiriva Respimat) zolpidem 5 mg tablet 5 mg PO HS PRN restless leg 01/23/24 03/31/24 History syndrome nitrofurantoin 100 mg PO Q12H 7 days #14 caps 03/30/24 03/31/24 Rx monohydrate/macrocrystals 100 mg capsule (Macrobid) cholecalciferol (vitamin D3) 25 25 mcg PO QAM 03/31/24 03/31/24 History mcg (1,000 unit) tablet (Vitamin D3) cyanocobalamin (vitamin B-12) 1,000 mcg PO DAILY 03/31/24 03/31/24 History 1,000 mcg tablet (Vitamin B-12) ipratropium 0.5 mg-albuterol 3 mg 3 ml inhalation Q6H PRN Wheezing 03/31/24 03/31/24 History (2.5 mg base)/3 mL nebulization soln magnesium 250 mg tablet 250 mg PO DAILY 03/31/24 03/31/24 History Patient History Medical History Bladder cancer dx 05/2021; TURBT, chemo + radiation Bladder tumor History of basal cell carcinoma History of rectal fissure History of COVID-19 DX'D 10/2020 THRU ACUTE CARE SECTION-SOB, PRODUCTIVE COUGH, BODY ACHES, FEVER-RECOVERED AT HOME-SYMPTOMS RESOLVED SOB (shortness of breath) on exertion Arthritis Anticoagulated on Coumadin Heart disease Prostatitis Stark's esophagus GERD (gastroesophageal reflux disease) History of pulmonary embolism FOLLOWING SHOULDER SURGERY APPROX 5 YEARS -NO ISSUES SINCE Pacemaker TACHY-KURT SYNDROME. ALSO HX OF A-FIB. LAST CHECKED 11/2021 - [facility] Tachy-kurt syndrome History of atrial flutter Restless legs syndrome Dyslipidemia Carotid artery disease Spinal stenosis of lumbar region History of paroxysmal supraventricular tachycardia BPH (benign prostatic hypertrophy) Diverticular disease of colon COPD (chronic obstructive pulmonary disease) Hypertension Surgical History History of bladder surgery TURBT 05/29/2021 [facility] History of esophagogastroduodenoscopy (EGD) MULTIPLE History of tonsillectomy History of total knee replacement LEFT KNEE History of herniorrhaphy History of surgery MOHS PROCEDURE ON FACE History of colonoscopy History of bowel resection S/T DIVERTICULITIS History of arthroscopy B/L SHOULDERS History of cardiovascular surgery MITRAL VALVE REPAIR[facility] 2003 History of heart valve replacement AORTIC VALVE REPLACEMENT (TISSUE)-[facility] 2003 Status post inguinal hernia repair Status post cataract extraction Family History Brother Diabetes Cancer Esophageal Cancer Mother Colorectal cancer Lung cancer Social History Smoking Status: Unknown if ever smoked Tobacco Type: Smokeless Tobacco (Dip or Chew) Cigarettes Per Day: 0; Second Hand Exposure: No; Do You Dip or Chew Tobacco: Yes (1 can every 3-4 days); Hx Alcohol Use: No Hx Substance Use: No Preferred Language: Sri Lankan Communication Ability: Effective Outreach Analyst Required: No Beliefs That Will Affect Care: None marital status: Current Living Situation: Spouse current occupational status: retired Feels Safe at Home: Yes Safety Concerns: Feels Safe At This Time Diet: regular caffeine: No during the past year weight has: remained stable Physical Activity Frequency: Other Physical Activity Frequency Comment: "Does alot of yard work" Assistive Devices: Oxygen - Continuous Review of Systems Review of Systems: All systems reviewed & are unremarkable except as noted in HPI & below Physical Exam Constitutional: WD/WN, vitals as above Eyes: no conjunctival abnormality ENMT: Ears: no hearing impairment and no external ear abnormality Mouth: no oropharynx abnormality Neck: trachea midline Respiratory: normal respiratory effort; no respiratory distress and no labored breathing Cardiovascular: Rate/Rhythm: regular rate and regular rhythm Gastrointestinal (Abdomen): Soft and nontender to palpation Musculoskeletal: No calf tenderness Skin: no rashes Neurologic: moves all extremities Genitourinary: Patient was noted to have a Gabriel catheter in place. There is no evidence of phimosis or paraphimosis. (Nursing staff reported that the Gabriel catheter was placed in the emergency department) patient did have some bilateral scrotal swelling with no erythema, eschar, or open areas of drainage. There is some slight tenderness to palpation. There is no CVA tenderness with percussion bilaterally. There is no suprapubic discomfort with palpation Results & Data Vital Signs (Past 12 Hours) Vital Signs Temp Pulse Resp BP Pulse Ox O2 Del Method 03/31/24 17:31 78 19 03/31/24 17:31 108/48 L 03/31/24 17:30 78 21 03/31/24 17:00 114/67 03/31/24 17:00 78 22 03/31/24 16:30 107/58 L 03/31/24 16:30 78 21 03/31/24 16:00 101/56 L 03/31/24 16:00 80 23 03/31/24 15:30 105/62 03/31/24 15:30 86 23 03/31/24 15:00 107/72 03/31/24 15:00 87 21 03/31/24 14:30 85 21 03/31/24 14:30 101/58 L 03/31/24 14:00 87 21 03/31/24 14:00 95/60 L 03/31/24 13:30 98/50 L 03/31/24 13:30 83 20 03/31/24 13:02 88 03/31/24 13:00 88 22 95 03/31/24 13:00 100/65 03/31/24 11:23 36.5 C 68 20 108/47 L 97 Room Air PG Care Time/CCT Total # of Minutes Spent Total Time Spent with Patient: Total time spent is greater than 50% in coordination of care (as documented) at patient's floor/unit and/or counseling patient: Coding Level of Care Code 43115 INT INP/OBS CARE MIN Diagnoses Acute metabolic encephalopathy G93.41
[2024-03-31 21:09] LABS: Adenovirus F 40/41 PCR Not Detected (NotDetected); Astrovirus PCR Not Detected (NotDetected); Campylobacter PCR Not Detected (NotDetected); Cryptosporidium PCR Not Detected (NotDetected); Cyclospora cayetanensis PCR Not Detected (NotDetected); Entamoeba histolytica PCR Not Detected (NotDetected); Enteroaggregative E.coli(EAEC) Not Detected (NotDetected); Enteropathogenic E.coli (EPEC) Not Detected (NotDetected); Enterotoxigenic E.coli (ETEC) Not Detected (NotDetected); Giardia lamblia PCR Not Detected (NotDetected); Plesiomonas shigelloides PCR Not Detected (NotDetected); Rotavirus A PCR Not Detected (NotDetected); Salmonella PCR Not Detected (NotDetected); Sapovirus PCR Not Detected (NotDetected); Shiga-like Toxin E.coli (STEC) Not Detected (NotDetected); Shigella/Enteroinvasive E.coli Not Detected (NotDetected); Vibrio cholerae PCR Not Detected (NotDetected); Vibrio species PCR Not Detected (NotDetected); Yersinia enterocolitica PCR Not Detected (NotDetected)
[2024-03-31 21:22] LABS: Norovirus GI/GII PCR DETECTED (NotDetected)
[2024-03-31] MEDS: PANTOprazole 40 MG TAB PO SCH (21:30)
[2024-03-31] MEDS: ROSUVASTATIN CALCIUM 10 MG TAB PO SCH (21:30)
[2024-03-31] MEDS: TAMSULOSIN HCL 0.4 MG CAP PO SCH (21:32)
[2024-03-31] MEDS: D5W AND NSS 1,000 ML IV SCH (21:35)
--- OUTSIDE RECORDS SUMMARY | 2024-04-01 06:13 | External Medical Summary | Summary of Care ---
Author Name Unknown Organization [facility] Address [address] [place] [address] Phone [phone] Care Team Providers Care Aeronautical Inspector Name Role Phone Unavailable Primary Care Provider Unavailabl e Reason for Visit * Reason Onset Date Comments Medication Refill 03/28/2024 Encounter Details Date Type Department Care Team (Late st Contact Info) Description 03/28/2024 Refill Family Medicine [address] [phone] [place] [address] Restless leg syndrome Allergies Active Allergy Reactions Criticality Noted Date Comments Penicillins Other (Please comment),Rash High Eyes swell Pollen 05/03/2022 Wound Dressing Adhesive Rash 05/02/2023 Patient reported documented as of this encounter (statuses as of 03/30/2024) Medications Medication Sig Dispensed Refills Start Date End Date Status CO Q10 100 MG PO TABS 1 tab once daily 0 Active ZOVIRAX 5 % EX OINT 5 times daily as needed. 0 Active Polyethylene Glycol 3350 17 GM Oral Packet Take 1 Packet by mouth in the morning. 14 Each 0 05/08/2016 Active Albuterol Sulfate (PROAIR HFA) 108 (90 Base) MCG/ACT AERSIndications:M oderate persistent asthma with exacerbation Inhale 2 Puffs by mouth every 4 hours as needed for Wheezing. 1 Inhaler 3 10/20/2019 Active Vitamin B12 500 MCG Oral TabletIndications [...] albuterol 120 mL 5 11/21/2022 Active Ipratropium [place] 0.02 % Inhalation Solution (Atrovent)Indicat ions:Moderate persistent asthma without complication Inhale 2.5 mL via nebulizer in the morning and 2.5 mL at noon and 2.5 mL in the evening and 2.5 mL before bedtime. Mix with albuterol solution. 75 mL 12 11/21/2022 Active Spiriva Respimat 2.5 MCG/ACT Inhalation Aerosol Solution (Tiotropium [place] Monohydrate)Indic ations:Moderate persistent asthma without complication INHALE [...] 3a chronic kidney disease (HCC),Paroxysmal SVT (supraventricular tachycardia) (HCC),Dizziness Take 0.5 Tablets by mouth in the [...] 5 DAYS 16 mL 1 11/19/2023 Active predniSONE 5 MG Oral Tablet (Deltasone) TAKE 1 TABLET BY MOUTH EVERY DAY 90 Tablet 2 12/17/2023 Active Erythromycin 5 MG/GM Ophthalmic Ointment Instill 0.25 Inches into eye at bedtime. 3.5 g 3 12/16/2023 Active Additional Information Patient not taking.Reported on 02/10/2024 Rosuvastatin Calcium 10 MG Oral Tablet (Crestor) TAKE 1 TABLET BY MOUTH EVERY DAY 90 Tablet 1 01/06/2024 Active Levothyroxine Sodium 125 MCG Oral Tablet (Levoxyl)Indicati ons:Carcinoma of bladder (HCC) TAKE 1 TAB BY MOUTH DAILY FIRST THING IN THE MORNING AT LEAST 30 MIN PRIOR TO BREAKFAST/OTHER MEDS 90 Tablet 0 01/06/2024 Active Benzonatate 100 MG Oral Capsule (Tessalon Perles) Take 1 Capsule by mouth 3 times a day as needed for Cough. 0 01/28/2024 Active Ferrous Sulfate 325 (65 Fe) MG Oral Tablet (Feosol)Indicatio ns:Iron deficiency anemia secondary to blood loss (chronic) TAKE ONE TABLET BY MOUTH WITH FOOD DAILY 90 Tablet 3 03/23/2024 Active Esomeprazole Magnesium 40 MG Oral Capsule Delayed ReleaseIndication s: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 TAKE 1 CAPSULE BY MOUTH TWICE A DAY 180 Capsule 1 03/23/2024 Active Zolpidem Tartrate 5 MG Oral Tablet (Ambien)Indicatio ns:Restless leg syndrome Take 1 Tablet by mouth at bedtime as needed for Sleep. 30 Tablet 0 03/30/2024 Active Zolpidem Tartrate 5 MG Oral Tablet (Ambien)Indicatio ns:Restless leg syndrome Take 1 Tablet by mouth at bedtime as needed for Sleep. 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 Test performed by Sameer FURNACE CLERK CPFT Pleural plaque due to asbestos exposure Restrictive lung disease Overview: In Check dial performed to assess inhaler technique: 12/15/19 Name of inhalers Albuterol Pass: Yes at 60 L/min and Advair Pass: Yes at 60 L/min. Encouraged to to take deep breath, use aero chamber, and rinse after steroid. Test performed by Sameer FURNACE CLERK CPFT Hx of pulmonary embolus 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 Overview: [place] C0-M6 documented as of this encounter (statuses as of 03/30/2024) Resolved Problems Problem Noted Date Diagnosed Date [...] infection 08/22/2005 04/05/2016 Anal fissure 06/04/2005 10/16/2007 group home current use of ant icoagulant therapy [...] as of this encounter (statuses as of 03/30/2024) Immunizations Name Administration Dates Next Due COVID-19 mRNA, LNP-s, No Pre serve, 2-Dose Series ([place]) 12/01/2021,01/16/2021,12/26/2020 COVID-19, LNP-s, No Preserve , Ozzy-sucrose, Ages 12+ ([place]) 12/01/2021 COVID-19, MRNA-LNP, 23-24, P F, 30 MCG/0.3 mL, 12 YRS AND ABOVE, IM ([facility]) 09/18/2023 Covid-19, Mrna, Lnp-s, Pf, B ivalent, 30 Mcg, IM, 12 yrs and above ([place]) 10/09/2022 Pneumococcal Conjugate Vacc, 13 Valent (Prevnar) [...] Miscellaneous Notes * Telephone Encounter - Stacey Suh MD - 03/30/2024 3:25 PM EDT Signed Prescriptions: Disp Refills Zolpidem Tartrate 5 MG Oral Tablet (Ambien)30 Tab*0 Sig: Take 1 Tablet by mouth at bedtime as needed for Sleep. Authorizing Provider: STACEY SUH * Telephone Encounter - Brenda Brito [facility] ED - 03/30/2024 3:11 PM EDTPending Prescriptions: Disp Refills Zolpidem Tartrate 5 MG Oral Tablet (Ambien)30 Tab*0 Sig: Take 1 Tablet by mouth at bedtime as needed for Sleep. * Telephone Encounter - Brenda Brito RPh - 03/30/2024 3:11 PM EDT I have reviewed the patients controlled substance dispensing history in the Prescription Drug Monitoring Program in compliance with the [facility] regulations before prescribing a controlled substance. PDMP checked on 03/30/2024. Pending Prescriptions: Disp Refills Zolpidem Tartrate 5 MG Oral Tablet (Ambie*30 Tab*0 Sig: Take 1 Tablet by mouth at bedtime as needed for Sleep. Last Visit: 02/04/2024 (in office), 08/28/2022 (telemedicine) Next Visit: 05/07/2024 Date medication was last filled: 02/28/24 Date medication is due for refill: 03/28/24 Pharmacy: [id number] Is this request for a controlled substance? Yes and Urine Drug Screen Not completed Toxicology results: No results found. However, due to the size of the patient record, not all encounters were searched.Please check Results Review for a complete set of results. Please approve if appropriate. Thanks, Brenda Brito Clinical Pharmacist [facility] ([facility]) (Formerly Telepharmacy) [phone] 03/30/2024, 3:11 PM documented in this encounter Plan of Treatment Upcoming Encounters Date Type Department Care Team (Late st Contact Info) Description 04/01/2024 10:30 AM EDT Laboratory Laboratory [address] [place] [phone] [address] [place] [address] 04/02/2024 6:30 AM EDT Anticoagulation Pharmacy Call Center [address] [facility] [place] [address] [facility] [address] [facility] [place] [address] 04/02/2024 10:30 AM EDT Immunization/Injection Hematology/Oncology Treatment, [place] [address] [facility] [place] [phone] Nurse, Med [address] [facility] [place] [address] 04/06/2024 11:20 AM EDT Office Visit Ophthalmology, [facility] [address] [facility] [place] [address] Pablo Casanova, DO [facility] [address] 04/08/2024 10:00 AM EDT Office Visit Cardiology, [facility] [address] [facility] [place] [address] Genny Donahue CRNP [facility] [address] 05/07/2024 10:20 AM EDT Office Visit Family Medicine [address] [place] [phone] Johnson Roldan [address] [place] [address] 05/13/2024 11:00 AM EDT Office Visit Hematology/Oncology [facility] [address] [facility] [place] [phone] Ludwig Louis MD [address] [facility] [place] [address] 05/15/2024 8:40 AM EDT Office Visit Rheumatology [address] [place] [phone] Win Nielsen MD [address] [place] [address] 05/18/2024 2:30 PM EDT Office Visit Cardiology, [facility] [address] [place] [address] Andres Rainey MD [address] [place] [address] Scheduled Procedures Name Priority Associated Diagnoses Date/Ti me ESOPHAGOGASTRODUODENOSCOPY ( EGD), FLEXIBLE, TRANSORAL, DIAGNOSTIC Recall Stark's esophagus with dysplasia Health Maintenance Due Date Last Done Comments Depression Screening 07/12/2021 07/12/2020 CKD PHOS USE SMARTSET 34063 08/21/2022 10/0 02/2021, 07/12/2020, 03/13/2019, Additional history exists *BISPHONATE OR OTHER ACCEPTABLE MEDICATION NEEDED FOR OSTEOPOROSIS (REFER TO SMARTSET #1146) 10/14/2023 Albumin/Creatinine Ratio 04/22/2024 023, 05/24/2022, 03/26/2022, Additional history exists TSH 01/20/2025 01/21/2024, 09/19, 08/20/2023, Additional history exists Stark's Esophagus Surveilance 02/26/2025 02/26/2022, 02/26/2022, 07/04/2021, Additional history exists CKD HGB USE SMARTSET 97112 03/25/202503/25, 2024, 03/18/2024, Additional history exists DXA Scan 07/05/2025 07/05/2023, 10/19, 11/04/2018, Additional history exists DTaP,Tdap,and Td Vaccines (2 - Td or Tdap) 08/19/2027 08/19/2017, 08/20/2008 Pneumococcal Vaccine: 65+ Years Completed 06/23/2015, 05/14/2013, 04/18/2004 Zoster Vaccines Completed 12/02/2020, 08/15/2020 VITAMIN D LEVEL ONCE IN A LIFETIME-USE SMARTSET# [id number] Completed 04/22/2023, 08/28/2021, 07/14/2015 Influenza Vaccine (FLU [...] encounter Medical Devices Implanted Type Area Coal Cager Device Identifier Shelf Expiration Date Model / Serial / Lot Power Port 8fr Sngl Lumen Plas - [id number] Implanted:Qty: 1 on 02/22/2022 at [facility] PERIPHERAL VASCULAR [id number] 02/15/2023 [id number] / / [id number] documented as of this encounter Visit Diagnoses Diagnosis Restless leg syndrome Restless legs syndrome (RLS) documented in this encounter Advance Directives Latest Code Status on File Code Status Date Activated Date Inactivated Comments Full Code 09/03/2007 7:29 AM 09/03/2007 4:02 PM
--- OUTSIDE RECORDS SUMMARY | 2024-04-01 06:13 | External Medical Summary | Summary of Care ---
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) Procedures CT INJ RETACRIT NON-ESRD USE CT THERAPEUTIC PROPHYLACTIC/DX INJECTION SUBQ/IM CT EPOETIN IVAN, NON-ESRD Ludwig Louis MD [address] [place] [address] Anc Hem/Onc Dony Hickman DEPT CLOSED - 10/01/23 [address] [place] [address] Referral ID Status Reason Start Date Expiration Date V isits Requested Visits Authorized [id number] Authorized 02/05/2024 04/28/2024 [id number] Encounter Details Date Type Department Care Team (Late st Contact Info) Description 02/27/2024 10:30 AM EDT Immunization/I njection Hematology/Oncology Treatment, [place] 200 [facility] [place] [address] Nurse, Med 4 [address] [place] [address] Carcinoma of bladder (HCC)*; Iron deficiency anemia, unspecified iron deficiency anemia type; Chronic kidney disease, stage 3b (HCC); 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 0 Active Polyethylene Glycol 3350 17 GM Oral Packet Take 1 Packet by mouth in the morning. 14 Each 0 6 Active Albuterol Sulfate (PROAIR HFA) 108 (90 Base) MCG/ACT AERSIndications: Moderate persistent asthma with exacerbation Inhale 2 Puffs by mouth every 4 hours as needed for Wheezing. 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 Mix with albuterol 120 mL 5 3 Active Ipratropium Rogers 0.02 % Inhalation Solution (Atrovent)Indica tions:Moderate persistent asthma without complication Inhale 2.5 mL via nebulizer in the morning and 2.5 mL at noon and 2.5 mL in the evening and 2.5 mL before bedtime. Mix with albuterol solution. 75 mL 12 3 Active Spiriva Respimat 2.5 MCG/ACT Inhalation Aerosol Solution (Tiotropium Rogers Monohydrate)Samara cations:Moderate persistent asthma without complication INHALE 2 PUFFS BY MOUTH EVERY DAY 12 g 3 3 Active Warfarin Sodium 5 MG Oral Tablet (Coumadin)Indica tions:Pulmonary embolism and infarction (HCC) Take 0.5-1 Tablets by mouth every evening. 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 45 Tablet 3 3 Active Furosemide 40 MG Oral Tablet (Lasix)Indicatio ns:Acute on chronic diastolic congestive heart failure (HCC) Take one tablet daily and as directed for weight gain 0 3 Active guaiFENesin ER 600 MG Oral Tablet Extended Release 12 Hour (Humibid LA)Indications:A cute cough Take 1 Tablet by mouth in the morning and 1 Tablet before bedtime. 40 Tablet 0 3 Active Fluticasone Propionate 50 MCG/ACT Nasal Suspension (Flonase)Indicat ions:Acute cough ADMINISTER 1 SPRAY INTO EACH NOSTRIL IN THE MORNING AND 1 SPRAY IN THE EVENING FOR 5 DAYS 16 mL 1 4 Active predniSONE 5 MG Oral Tablet (Deltasone) TAKE 1 TABLET BY MOUTH EVERY DAY 90 Tablet 2 4 Active Erythromycin 5 MG/GM Ophthalmic Ointment Instill 0.25 Inches into eye at bedtime. 3.5 g 3 4 Active Additional Information Patient not taking.Reported on 02/10/2024 Rosuvastatin Calcium 10 MG Oral Tablet (Crestor) TAKE 1 TABLET BY MOUTH EVERY DAY 90 Tablet 1 4 Active Levothyroxine Sodium 125 MCG Oral Tablet (Levoxyl)Indicat ions:Carcinoma of bladder (HCC) TAKE 1 TAB BY MOUTH DAILY FIRST THING IN THE MORNING AT LEAST 30 MIN PRIOR TO BREAKFAST/OTHER MEDS 90 Tablet 0 4 Active Benzonatate 100 MG Oral Capsule (Tessalon Perles) Take 1 Capsule by mouth 3 times a day as needed for Cough. 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 30 Tablet 0 4 02/26/20 24 Discontinued(Ref ill) documented as of this encounter (statuses as of 03/31/2024) Active Problems Problem Noted Date Diagnosed Date [...] rinse after steroid. Test performed by Sameer PLUMBING CONTRACTOR CPFT Pleural plaque due to asbestos exposure Restrictive lung disease Overview: In Check dial performed to assess inhaler technique: 12/15/19 Name of inhalers Albuterol Pass: Yes at 60 L/min and Advair Pass: Yes at 60 L/min. Encouraged to to take deep breath, use aero chamber, and rinse after steroid. 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 therapy [...] as of this encounter (statuses as of 03/31/2024) Immunizations Name Administration Dates Next Due COVID-19 mRNA, LNP-s, No Pre serve, 2-Dose Series ([employer]) 12/01/2021,01/16/2021,12/26/2020 COVID-19, LNP-s, No Preserve , Ozzy-sucrose, Ages 12+ ([employer]) 12/01/2021 COVID-19, MRNA-LNP, 23-24, P F, 30 MCG/0.3 mL, 12 YRS AND ABOVE, IM ([employer]-Comirnaty) 09/18/2023 Covid-19, Mrna, Lnp-s, Pf, B ivalent, 30 Mcg, IM, 12 yrs and above ([employer]) 10/09/2022 Pneumococcal Conjugate Vacc, 13 Valent (Prevnar) [...] Sign Reading Time Taken Comments Blood Pressure 90/55 02/27/2024 10:30 AM EDT Pulse - - Temperature - - Respiratory Rate - - Oxygen Saturation - - Inhaled Oxygen Concentration - - Weight - - Height - - Body Mass Index - - documented in this encounter Nursing Notes * Venecia Infante LPN - 02/27/2024 10:38 AM EDT Retacrit 40,000 units administered SQ into Left upper extremity per standing order HGB 9.0 Patient expressed concern that HGB is still going down instead of not going up even with the injections. Advised patient that I would message Dr. Louis and have nursing reach out documented in this encounter Plan of Treatment Upcoming Encounters Date Type Department Care Team (Late st Contact Info) Description 04/01/2024 10:30 AM EDT Laboratory Laboratory [address] [place] [phone] [place] [address] 04/02/2024 6:30 AM EDT Anticoagulation Pharmacy Call Center 58[address] [facility] [place] [address] [facility] 58 60 [facility] [place] [address] 04/02/2024 10:30 AM EDT Immunization/Injection Hematology/Oncology Treatment, [place] [address] [place] [phone] Nurse, Med [address] [place] [address] 04/06/2024 11:20 AM EDT Office Visit Ophthalmology, [facility], [place] 132 [facility] [place] [address] Pablo Casanova T, DO [address] [place] [address] [place] [address] 04/08/2024 10:00 AM EDT Office Visit Cardiology, [facility] [address] [place] [address] Genny Donahue CRNP [address] [place] [address] 05/07/2024 10:20 AM EDT Office Visit Family Medicine [address] [place] [phone] Johnson Roldan CRNP [address] [place] [address] [place] [address] 05/13/2024 11:00 AM EDT Office Visit Hematology/Oncology [facility] [address] [place] [phone] Ludwig Louis MD 200 [facility] [place] [address] 05/15/2024 8:40 AM EDT Office Visit Rheumatology [address] [place] [phone] Win Nielsen MD [address] [place] [address] [place] [address] 05/18/2024 2:30 PM EDT Office Visit Cardiology, [facility] [address] [place] [address] Andres Rainey MD [address] [place] [address] Scheduled Procedures Name Priority Associated Diagnoses Date/Ti me ESOPHAGOGASTRODUODENOSCOPY ( EGD), FLEXIBLE, TRANSORAL, DIAGNOSTIC Recall Stark's esophagus with dysplasia Health Maintenance Due Date Last Done Comments Depression Screening 07/12/2021 07/12/2020 CKD PHOS USE SMARTSET 87106 08/21/2022 10/0 02/2021, 07/12/2020, 03/13/2019, Additional history exists *BISPHONATE OR OTHER ACCEPTABLE MEDICATION NEEDED FOR OSTEOPOROSIS (REFER TO SMARTSET #1146) 10/14/2023 Albumin/Creatinine Ratio 04/22/2024 023, 05/24/2022, 03/26/2022, Additional history exists TSH 01/20/2025 01/21/2024, 09/19, 08/20/2023, Additional history exists Stark's Esophagus Surveilance 02/26/2025 02/26/2022, 02/26/2022, 07/04/2021, Additional history exists CKD HGB USE SMARTSET 86838 03/25/202503/25, 2024, 03/18/2024, Additional history exists DXA Scan 07/05/2025 07/05/2023, 10/19, 11/04/2018, Additional history exists DTaP,Tdap,and Td Vaccines (2 - Td or Tdap) 08/19/2027 08/19/2017, 08/20/2008 Pneumococcal Vaccine: 65+ Years Completed 06/23/2015, 05/14/2013, 04/18/2004 Zoster Vaccines Completed 12/02/2020, 08/15/2020 VITAMIN D LEVEL ONCE IN A LIFETIME-USE SMARTSET# [id number] Completed 04/22/2023, 08/28/2021, 07/14/2015 Influenza Vaccine (FLU [...] this encounter Medical Devices Implanted Type Area Drama Critic Device Identifier Shelf Expiration Date Model / Serial / Lot Power Port 8fr Sngl Lumen Plas - [id number] Implanted:Qty: 1 on 02/22/2022 at [facility] : PERIPHERAL VASCULAR [id number] 02/15/2023 [id number] / / [id number] documented as of this encounter Visit Diagnoses [...] Action Action Date Dose Rate Site Epoetin Ivan-epbx (Retacrit) 32362 UNIT/ML inj 40,000 Units 40,000 Units, Subcutaneous, ONCE, On Marilin 02/27/24 at 1100, For 1 dose Given 02/27/2024 10:34 AM EDT 40,000 Units Arm Left Upper documented in this encounter Advance Directives Latest Code Status on File Code Status Date Activated Date Inactivated Comments Full Code 09/03/2007 7:29 AM 09/03/2007 4:02 PM
--- OUTSIDE RECORDS SUMMARY | 2024-04-01 06:14 | External Medical Summary | Summary of Care ---
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) Procedures ND INJ RETACRIT NON-ESRD USE ND THERAPEUTIC PROPHYLACTIC/DX INJECTION SUBQ/IM ND EPOETIN IVAN, NON-ESRD Ludwig Louis MD [address] [place], [place] [address] Anc Hem/Onc Dony Hickman DEPT CLOSED - 10/01/23 [address] [place] [address] Referral ID Status Reason Start Date Expiration Date V isits Requested Visits Authorized [id number] Authorized 02/05/2024 04/28/[phone] Encounter Details Date Type Department Care Team (Late st Contact Info) Description 03/26/2024 10:30 AM EDT Immunization/I njection Hematology/Oncology Treatment, [place] [address] [place] [address] Marylou, Chair 8 Hem Onc [address] [place] [address] Carcinoma of bladder (HCC)*; Iron deficiency anemia, unspecified iron deficiency anemia type; Chronic kidney disease, stage 3b (HCC); 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) Allergies Active Allergy Reactions Criticality Noted Date Comments Penicillins Other (Please comment),Rash High Eyes swell Pollen 05/03/2022 Wound Dressing Adhesive Rash 05/02/2023 Patient reported documented as of this encounter (statuses as of 03/26/2024) Medications Medication Sig Dispensed Refills Start Date [...] 10/20/2019 Active Vitamin B12 500 MCG Oral TabletIndications:B [...] albuterol 120 mL 5 11/21/2022 Active Ipratropium Brinson 0.02 % Inhalation Solution (Atrovent)Indicatio ns:Moderate persistent asthma without complication Inhale 2.5 mL via nebulizer in the morning and 2.5 mL at noon and 2.5 mL in the evening and 2.5 mL before bedtime. Mix with albuterol solution. 75 mL 12 11/21/2022 Active Spiriva Respimat 2.5 MCG/ACT Inhalation Aerosol Solution (Tiotropium Brinson Monohydrate)Indicat ions:Moderate persistent asthma without complication INHALE [...] as needed for Cough. 0 01/28/2024 Active Zolpidem Tartrate 5 MG Oral Tablet (Ambien)Indications :Restless leg syndrome Take 1 Tablet by mouth at bedtime as needed for Sleep. 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 Test performed by Sameer POUCH MAKER CPFT Pleural plaque due to asbestos exposure Restrictive lung disease Overview: In Check dial performed to assess inhaler technique: 12/15/19 Name of inhalers Albuterol Pass: Yes at 60 L/min and Advair Pass: Yes at 60 L/min. Encouraged to to take deep breath, use aero chamber, and rinse after steroid. 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 Overview: [place] C0-M6 documented as of this encounter (statuses as of 03/26/2024) Resolved Problems Problem Noted Date Diagnosed Date [...] as of this encounter (statuses as of 03/26/2024) Immunizations Name Administration Dates Next Due COVID-19 mRNA, LNP-s, No Pre serve, 2-Dose Series ([facility]) 12/01/2021,01/16/2021,12/26/2020 COVID-19, LNP-s, No Preserve , Ozzy-sucrose, Ages 12+ ([employer]) 12/01/2021 COVID-19, MRNA-LNP, 23-24, P F, 30 MCG/0.3 mL, 12 YRS AND ABOVE, IM ([employer]-Comirnaty) 09/18/2023 Covid-19, Mrna, Lnp-s, Pf, B ivalent, [...] Sign Reading Time Taken Comments Blood Pressure 97/61 03/26/2024 10:35 AM EDT Pulse - - Temperature - - Respiratory Rate - - Oxygen Saturation - - Inhaled Oxygen Concentration - - Weight - - Height - - Body Mass Index - - documented in this encounter Nursing Notes * Leana Sears, VIOLET - 03/26/2024 11:02 AM EDT 1030: Pt arrived for Retacrit injection. Hgb 8.9. Administered in SHON. Pt tolerated well. BP WNL. To return in one week. Discharged in stable condition. documented in this encounter Plan of Treatment Upcoming Encounters Date Type Department Care Team (Late st Contact Info) Description 04/01/2024 10:30 AM EDT Laboratory Laboratory [address] [place] [phone] [facility] Lab [address] [place] [address] 04/02/2024 6:30 AM EDT Anticoagulation Pharmacy Call Center [address] [place] [address] [facility] 58 60 [facility] [place] [address] 04/02/2024 10:30 AM EDT Immunization/Injection Hematology/Oncology Treatment, [place] 200 [place] [phone] Nurse, Med [address] [place] [address] [place] [address] 04/08/2024 10:00 AM EDT Office Visit Cardiology, [facility] [address] [facility] [address] Genny Donahue CRNP [address] [place] [address] 05/07/2024 10:20 AM EDT Office Visit Family Medicine [address] [place] [phone] Johnson Roldan CRNP [address] [place] [address] [place] [address] 05/13/2024 11:00 AM EDT Office Visit Hematology/Oncology [facility] [address] [place] [address] Ludwig Louis MD [address] [place] [address] 05/15/2024 8:40 AM EDT Office Visit Rheumatology [address] [place] [phone] Win Nielsen MD [address] [facility] [place], [place] [address] 05/18/2024 2:30 PM EDT Office Visit Cardiology, [facility] [address] [place] [address] Andres Rainey MD [address] [place] [address] Scheduled Procedures Name Priority Associated Diagnoses Date/Ti me ESOPHAGOGASTRODUODENOSCOPY ( EGD), FLEXIBLE, TRANSORAL, DIAGNOSTIC Recall Stark's esophagus with dysplasia Health Maintenance Due Date Last Done Comments Depression Screening 07/12/2021 07/12/2020 CKD PHOS USE SMARTSET 19919 08/21/2022 10/0 02/2021, 07/12/2020, 03/13/2019, Additional history exists *BISPHONATE OR OTHER ACCEPTABLE MEDICATION NEEDED FOR OSTEOPOROSIS (REFER TO SMARTSET #1146) 10/14/2023 Albumin/Creatinine Ratio 04/22/2024 023, 05/24/2022, 03/26/2022, Additional history exists TSH 01/20/2025 01/21/2024, 09/19, 08/20/2023, Additional history exists Stark's Esophagus Surveilance 02/26/2025 02/26/2022, 02/26/2022, 07/04/2021, Additional history exists CKD HGB USE SMARTSET 82626 03/25/202503/25, 2024, 03/18/2024, Additional history exists DXA Scan 07/05/2025 07/05/2023, 10/19, 11/04/2018, Additional history exists DTaP,Tdap,and Td Vaccines (2 - Td or Tdap) 08/19/2027 08/19/2017, 08/20/2008 Pneumococcal Vaccine: 65+ Years Completed 06/23/2015, 05/14/2013, 04/18/2004 Zoster Vaccines Completed 12/02/2020, 08/15/2020 VITAMIN D LEVEL ONCE IN A LIFETIME-USE SMARTSET# [id number] Completed 04/22/2023, 08/28/2021, 07/14/2015 Influenza Vaccine (FLU [...] this encounter Medical Devices Implanted Type Area Turret Press Operator Device Identifier Shelf Expiration Date Model / Serial / Lot Power Port 8fr Sngl Lumen Plas - [id number] Implanted:Qty: 1 on 02/22/2022 at [facility] : PERIPHERAL VASCULAR [id number] 02/15/2023 [id number] / / [id number] documented as of this encounter Visit Diagnoses [...] Date Dose Rate Site Epoetin Ivan-epbx (Retacrit) 91183 UNIT/ML inj 40,000 Units 40,000 Units, Subcutaneous, ONCE, On Marilin 03/26/24 at 1115, For 1 dose Given 03/26/2024 10:39 AM EDT 40,000 Units Arm Right Upper documented in this encounter Advance Directives Latest Code Status on File Code Status Date Activated Date Inactivated Comments Full Code 09/03/2007 7:29 AM 09/03/2007 4:02 PM
--- OUTSIDE RECORDS SUMMARY | 2024-04-01 06:14 | External Medical Summary | Summary of Care ---
Author Name Unknown Organization [facility] Address [address] [place] [address] Phone [phone] Care Team Providers Care Shoemaker Custom Name Role Phone Unavailable Primary Care Provider Unavailabl e Reason for Visit * Reason Comments Vomiting Encounter Details Date Type Department Care Team (Late st Contact Info) Description 2024 10:30 AM EDT Laboratory Laboratory [address] [place] [phone] [place] [address] Urothelial carcinoma of bladder (HCC) Allergies Active Allergy Reactions Criticality Noted Date Comments Penicillins Other (Please comment),Rash High Eyes swell Pollen 05/03/2022 Wound Dressing Adhesive Rash 05/02/2023 Patient reported documented as of this encounter (statuses as of 2024) Medications Medication Sig Dispensed Refills Start Date [...] albuterol 120 mL 5 11/21/2022 Active Ipratropium [place] 0.02 % Inhalation Solution (Atrovent)Indicatio ns:Moderate persistent asthma without complication Inhale 2.5 mL via nebulizer in the morning and 2.5 mL at noon and 2.5 mL in the evening and 2.5 mL before bedtime. Mix with albuterol solution. 75 mL 12 11/21/2022 Active Spiriva Respimat 2.5 MCG/ACT Inhalation Aerosol Solution (Tiotropium [place] Monohydrate)Indicat ions:Moderate persistent asthma without complication INHALE 2 PUFFS BY MOUTH EVERY DAY 12 g 3 04/30/2023 Active Warfarin Sodium 5 MG Oral Tablet (Coumadin)Indicatio ns:Pulmonary embolism and infarction (HCC) Take 0.5-1 Tablets by mouth every evening. Or take as instructed by the [facility] 90 Tablet 3 [...] as of this encounter (statuses as of 2024) Active Problems Problem Noted Date Diagnosed Date [...] rinse after steroid. Test performed by Sameer PENOLOGY TEACHER CPFT Pleural plaque due to asbestos exposure Restrictive lung disease Overview: In Check dial performed to assess inhaler technique: 12/15/19 Name of inhalers Albuterol Pass: Yes at 60 L/min and Advair Pass: Yes at 60 L/min. Encouraged to to take deep breath, use aero chamber, and rinse after steroid. Test performed by Sameer PENOLOGY TEACHER CPFT Hx of pulmonary embolus 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 Overview: [place] C0-M6 documented as of this encounter (statuses as of 2024) Resolved Problems Problem Noted Date Diagnosed Date [...] infection 08/22/2005 04/05/2016 Anal fissure 06/04/2005 10/16/2007 medical terminologist current use of ant icoagulant therapy 05/30/2005 [...] as of this encounter (statuses as of 2024) Immunizations Name Administration Dates Next Due COVID-19 mRNA, LNP-s, No Pre serve, 2-Dose Series (MokhaOrigin) 12/01/2021,01/16/2021,12/26/2020 COVID-19, LNP-s, No Preserve , Ozzy-sucrose, Ages 12+ (Pfizer) 12/01/2021 COVID-19, MRNA-LNP, 23-24, P F, 30 MCG/0.3 mL, 12 YRS AND ABOVE, IM (MarketBrief-Comirunc healthFinestrella) 09/18/2023 Covid-19, Mrna, Lnp-s, Pf, B ivalent, 30 Mcg, IM, 12 yrs and above (MokhaOrigin) 10/09/2022 Pneumococcal Conjugate Vacc, 13 Valent (Prevnar) [...] Contact Info) Description 03/26/2024 10:30 AM EDT Immunization/Injection Hematology/[address] [phone] Park, Chair 8 Hem Onc [address] [place] [address] 04/01/2024 10:30 AM EDT Laboratory Laboratory [address] [place] [phone] [place] [address] 04/02/2024 6:30 AM EDT Anticoagulation Pharmacy Call Center WB 58[address]60 [facility] [place] [address] [facility] 58 60 [facility] [place] [address] 04/02/2024 10:30 AM EDT Immunization/Injection Hematology/Oncology Treatment, [address] [place] [phone] Nurse, Med [address] [place] [address] [place] [address] 04/08/2024 10:00 AM EDT Office Visit Cardiology, [address] [place] [address] Genny Donahue CRNP [address] [place] [address] 05/07/2024 10:20 AM EDT Office Visit Family Medicine [address] [place] [phone] Johnson Roldan CRNP [address] [place] [address] [place] [address] 05/13/2024 11:00 AM EDT Office Visit Hematology/Oncology [facility] [address] [place] [phone] Ludwig Louis MD [address] [place] [address] 05/15/2024 8:40 AM EDT Office Visit Rheumatology [address] [place] [phone] Win Nielsen MD [facility] [place] [address] 05/18/2024 2:30 PM EDT Office Visit Cardiology, [facility] [address] [address] Andres Rainey MD 132 [facility] [place] [address] Pending Results Name Type Priority Associated Diagnoses Date /Time CBC WITH WBC DIFFERENTIAL Lab STAT Urothelial carcinoma of bladder (HCC) 2024 11:31 AM EDT CBC Lab STAT Urothelial carcinoma of bladder ([facility]) 2024 11:31 AM EDT DIFFERENTIAL, AUTOMATED Lab STAT Urothelial carcinoma of bladder ([facility]) 2024 11:31 AM EDT Scheduled Procedures Name Priority Associated Diagnoses Date/Ti me ESOPHAGOGASTRODUODENOSCOPY ( EGD), FLEXIBLE, TRANSORAL, DIAGNOSTIC Recall Stark's esophagus with dysplasia Health Maintenance Due Date Last Done Comments Depression Screening 07/12/2021 07/12/2020 CKD PHOS USE SMARTSET 06282 08/21/2022 10/0 02/2021, 07/12/2020, 03/13/2019, Additional history exists *BISPHONATE OR OTHER ACCEPTABLE MEDICATION NEEDED FOR OSTEOPOROSIS (REFER TO SMARTSET #1146) 10/14/2023 Albumin/Creatinine Ratio 04/22/2024 023, 05/24/2022, 03/26/2022, Additional history exists TSH 01/20/2025 01/21/2024, 09/19, 08/20/2023, Additional history exists Stark's Esophagus Surveilance 02/26/2025 02/26/2022, 02/26/2022, 07/04/2021, Additional history exists CKD HGB USE SMARTSET 20152 03/18/202503/18, 03/18/2024, 03/11/2024, Additional history exists DXA Scan 07/05/2025 07/05/2023, 10/19, 11/04/2018, Additional history exists DTaP,Tdap,and Td Vaccines (2 - Td or Tdap) 08/19/2027 08/19/2017, 08/20/2008 Pneumococcal Vaccine: 65+ Years Completed 06/23/2015, 05/14/2013, 04/18/2004 Zoster Vaccines Completed 12/02/2020, 08/15/2020 VITAMIN D LEVEL ONCE IN A LIFETIME-USE SMARTSET# [id number] Completed 04/22/2023, 08/28/2021, 07/14/2015 Influenza Vaccine (FLU [...] this encounter Medical Devices Implanted Type Area State Comptroller Device Identifier Shelf Expiration Date Model / Serial / Lot Power Port 8fr Sngl Lumen Plas - [id number] Implanted:Qty: 1 on 02/22/2022 at [facility] CR [facility]ARD : PERIPHERAL VASCULAR [id number] 02/15/2023 [id number] / / [id number] documented as of this encounter Visit Diagnoses Diagnosis Urothelial carcinoma of bladder (HCC) documented in this encounter Advance Directives Latest Code Status on File Code Status Date Activated Date Inactivated Comments Full Code 09/03/2007 7:29 AM 09/03/2007 4:02 PM
--- OUTSIDE RECORDS SUMMARY | 2024-04-01 06:14 | External Medical Summary | Summary of Care ---
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) Procedures TN INJ RETACRIT NON-ESRD USE TN THERAPEUTIC PROPHYLACTIC/DX INJECTION SUBQ/IM TN EPOETIN IVAN, NON-ESRD Ludwig Louis MD [address] [place] [address] Anc Hem/Onc Dony Hickman DEPT CLOSED - 10/01/23 [address] [place] [phone] Referral ID Status Reason Start Date Expiration Date V isits Requested Visits Authorized [id number] Authorized 02/05/2024 04/28/[phone] Encounter Details Date Type Department Care Team (Late st Contact Info) Description 03/12/2024 10:30 AM EDT Immunization/I njection Hematology/Oncology Treatment, [place] 200 [facility] [place] [phone] Nurse, Med [address] [place] [address] Carcinoma of bladder (HCC)*; Iron deficiency anemia, unspecified iron deficiency anemia type; Chronic kidney disease, stage 3b (HCC); 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) Allergies Active Allergy Reactions Criticality Noted Date Comments Penicillins Other (Please comment),Rash High Eyes swell Pollen 05/03/2022 Wound Dressing Adhesive Rash 05/02/2023 Patient reported documented as of this encounter (statuses as of 03/27/2024) Medications Medication Sig Dispensed Refills Start Date [...] 9 Active Vitamin B12 500 MCG Oral TabletIndications [...] albuterol 120 mL 5 3 Active Ipratropium [place] 0.02 % Inhalation Solution (Atrovent)Indicat ions:Moderate persistent asthma without complication Inhale 2.5 mL via nebulizer in the morning and 2.5 mL at noon and 2.5 mL in the evening and 2.5 mL before bedtime. Mix with albuterol solution. 75 mL 12 3 Active Spiriva Respimat 2.5 MCG/ACT Inhalation Aerosol Solution (Tiotropium [place] Monohydrate)Indic ations:Moderate persistent asthma without complication INHALE 2 PUFFS BY MOUTH EVERY DAY 12 g 3 3 Active Warfarin Sodium 5 MG Oral Tablet (Coumadin)Indicat ions:Pulmonary embolism and infarction (HCC) Take 0.5-1 Tablets by mouth every evening. Or take as instructed by the [facility] 90 Tablet 3 3 Active [...] Tablet Extended Release 12 Hour (Humibid [place])Indications:Ac hoopa cough Take 1 Tablet by mouth in [...] as needed for Cough. 0 4 Active Zolpidem Tartrate 5 MG Oral Tablet (Ambien)Indicatio ns:Restless leg syndrome Take 1 Tablet by mouth at bedtime as needed for Sleep. 30 Tablet 0 4 Active Ferrous Sulfate 325 (65 Fe) MG Oral Tablet (Feosol)Indicatio ns:Iron deficiency anemia secondary to blood loss (chronic) TAKE ONE TABLET BY MOUTH WITH FOOD DAILY 90 Tablet 3 3 03/23/20 24 Discontinued Esomeprazole Magnesium 40 MG Oral Capsule Delayed ReleaseIndication s: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 TAKE 1 CAPSULE BY MOUTH TWICE A DAY 180 Capsule 1 4 03/23/20 24 Discontinued documented as of this encounter (statuses as of 03/27/2024) Active Problems Problem Noted Date Diagnosed Date [...] rinse after steroid. Test performed by Sameer CIGARETTE PACKAGE EXAMINER CPFT Pleural plaque due to asbestos exposure Restrictive lung disease Overview: In Check dial performed to assess inhaler technique: 12/15/19 Name of inhalers Albuterol Pass: Yes at 60 L/min and Advair Pass: Yes at 60 L/min. Encouraged to to take deep breath, use aero chamber, and rinse after steroid. Test performed by Sameer CIGARETTE PACKAGE EXAMINER CPFT Hx of pulmonary embolus 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 Overview: [place] C0-M6 documented as of this encounter (statuses as of 03/27/2024) Resolved Problems Problem Noted Date Diagnosed Date [...] 08/22/2005 04/05/2016 Anal fissure 06/04/2005 10/16/2007 intermediate current use of ant icoagulant therapy 05/30/2005 [...] as of this encounter (statuses as of 03/27/2024) Immunizations Name Administration Dates Next Due COVID-19 mRNA, LNP-s, No Pre serve, 2-Dose Series (Higher One) 12/01/2021,01/16/2021,12/26/2020 COVID-19, LNP-s, No Preserve , Ozzy-sucrose, Ages 12+ (Higher One) 12/01/2021 COVID-19, MRNA-LNP, 23-24, P F, 30 MCG/0.3 mL, 12 YRS AND ABOVE, IM (TastyKhana-Comirnaty) 09/18/2023 Covid-19, Mrna, Lnp-s, Pf, B ivalent, 30 Mcg, IM, 12 yrs and above (Higher One) 10/09/2022 Pneumococcal Conjugate Vacc, 13 Valent (Prevnar) [...] Sign Reading Time Taken Comments Blood Pressure 119/65 03/12/2024 10:47 AM EDT Pulse 80 03/12/2024 10:47 AM EDT Temperature - - Respiratory Rate - - Oxygen Saturation - - Inhaled Oxygen Concentration - - Weight - - Height - - Body Mass Index - - documented in this encounter Nursing Notes * Venecia Infante LPN - 03/12/2024 10:55 AM EDT Retacrit 40,000 units administered SQ into Left upper extremity. Patient tolerated injection HGB 8.9 Patient will return in 1 week documented in this encounter Plan of Treatment Upcoming Encounters Date Type Department Care Team (Late st Contact Info) Description 04/01/2024 10:30 AM EDT Laboratory Laboratory [address] [place] [phone] [place] [address] 04/02/2024 6:30 AM EDT Anticoagulation Pharmacy Call Center [address] [place] [address] [facility] 58 60 [facility] [place] [address] 04/02/2024 10:30 AM EDT Immunization/Injection Hematology/Oncology Treatment, [place] [address] [place] [phone] Nurse, Med 4 [facility] [address] 04/06/2024 11:20 AM EDT Office Visit Ophthalmology, [facility] 132 [facility] [place] [address] Pablo Casanova, DO 16 [facility] [place] [address] 04/08/2024 10:00 AM EDT Office Visit Cardiology, [facility] 132 [facility] [place] [address] Genny Donahue CRNP [address] [place] [address] 05/07/2024 10:20 AM EDT Office Visit Family Medicine [address] [place] [phone] Johnson Roldan [address] [place] [address] 05/13/2024 11:00 AM EDT Office Visit Hematology/Oncology [facility] 200 [facility] [place] [phone] Ludwig Louis MD 200 [facility] [place] [address] 05/15/2024 8:40 AM EDT Office Visit Rheumatology [address] [place] [phone] Win Nielsen MD [facility] [place] [address] 05/18/2024 2:30 PM EDT Office Visit Cardiology, [facility] 132 [place] [address] Andres Rainey MD [address] [place] [address] Scheduled Procedures Name Priority Associated Diagnoses Date/Ti me ESOPHAGOGASTRODUODENOSCOPY ( EGD), FLEXIBLE, TRANSORAL, DIAGNOSTIC Recall Stark's esophagus with dysplasia Health Maintenance Due Date Last Done Comments Depression Screening 07/12/2021 07/12/2020 CKD PHOS USE SMARTSET 59008 08/21/2022 10/0 02/2021, 07/12/2020, 03/13/2019, Additional history exists *BISPHONATE OR OTHER ACCEPTABLE MEDICATION NEEDED FOR OSTEOPOROSIS (REFER TO SMARTSET #1146) 10/14/2023 Albumin/Creatinine Ratio 04/22/2024 023, 05/24/2022, 03/26/2022, Additional history exists TSH 01/20/2025 01/21/2024, 09/19, 08/20/2023, Additional history exists Stark's Esophagus Surveilance 02/26/2025 02/26/2022, 02/26/2022, 07/04/2021, Additional history exists CKD HGB USE SMARTSET 60289 03/25/202503/25, 2024, 03/18/2024, Additional history exists DXA Scan 07/05/2025 07/05/2023, 10/19, 11/04/2018, Additional history exists DTaP,Tdap,and Td Vaccines (2 - Td or Tdap) 08/19/2027 08/19/2017, 08/20/2008 Pneumococcal Vaccine: 65+ Years Completed 06/23/2015, 05/14/2013, 04/18/2004 Zoster Vaccines Completed 12/02/2020, 08/15/2020 VITAMIN D LEVEL ONCE IN A LIFETIME-USE SMARTSET# [id number] Completed 04/22/2023, 08/28/2021, 07/14/2015 Influenza Vaccine (FLU [...] this encounter Medical Devices Implanted Type Area Hydroblaster Device Identifier Shelf Expiration Date Model / Serial / Lot Power Port 8fr Sngl Lumen Plas - [id number] Implanted:Qty: 1 on 02/22/2022 at [facility] CR BARD : PERIPHERAL VASCULAR [id number] 02/15/2023 [id number] / / [id number] documented as of this encounter Visit Diagnoses [...] Date Dose Rate Site Epoetin Ivan-epbx (Retacrit) 83635 UNIT/ML inj 40,000 Units 40,000 Units, Subcutaneous, ONCE, On Marilin 03/12/24 at 1115, For 1 dose Given 03/12/2024 10:50 AM EDT 40,000 Units Arm Left Upper documented in this encounter Advance Directives Latest Code Status on File Code Status Date Activated Date Inactivated Comments Full Code 09/03/2007 7:29 AM 09/03/2007 4:02 PM
--- OUTSIDE RECORDS SUMMARY | 2024-04-01 06:14 | External Medical Summary ---
Author Name Unknown Address Unknown Organization K01:[facility] - [address] [facility] [address] Laboratory Report Ordering Provider Test Date Status ADRIENNE SALCIDO 2024 11:31:27 Final Observation Date Value Abnormality Reference (Units ) Status SYNC LEUKOCYTES IN BLOOD BY AUTOMATED COUNT 2024 11:31:27 4.75 4.00-10.80 (K/uL) Final Segs 2024 11:31:27 79.4 Above high normal 40.0-75.0 (%) Final Lymphs % 2024 11:31:27 7.2 Below low normal 18.0-42.0 (%) Final Monos 2024 11:31:27 9.5 1.0-11.0 (%) Final Eosinophils 2024 11:31:27 1.5 0.0-6.0 (%) Final Basos 2024 11:31:27 1.3 0.0-2.0 (%) Final Immature Granulocyte, Percent 2024 11:31:27 1.1 0.0-2.0 (%) Final Absolute Segs 2024 11:31:27 3.78 1.80-7.70 (K/uL) Final Lymphs, absolute 2024 11:31:27 0.34 Below low normal 1.00-4.80 (K/ul) Final Monos, Abs 2024 11:31:27 0.45 0.00-1.10 (K/uL) Final Eos, Abs 2024 11:31:27 0.07 0.00-0.70 (K/uL) Final Basos, Abs 2024 11:31:27 0.06 0.00-0.20 (K/uL) Final Immature Granulocytes, Number 2024 11:31:27 0.05 0.00-0.20 (K/uL) Final Performing Location [facility] - [facility] [address]. [facility] [address]
--- OUTSIDE RECORDS SUMMARY | 2024-04-01 06:14 | External Medical Summary | Summary of Care ---
Author Name Unknown Organization [facility] Address [address] [place] [address] Phone [phone] Care Team Providers Care Golf Club Manager Name Role Phone Unavailable Primary Care [...] stage 3a chronic kidney disease (HCC) Procedures AK INJ RETACRIT NON-ESRD USE AK THERAPEUTIC PROPHYLACTIC/DX INJECTION SUBQ/IM AK EPOETIN IVAN, NON-ESRD Ludwig Louis MD [address] [place] [address] Anc Hem/Onc Dony Hickman DEPT CLOSED - 10/01/23 [address] [place] [phone] Referral ID Status Reason Start Date Expiration Date V isits Requested Visits Authorized [id number] Authorized 02/05/2024 04/28/[phone] Encounter Details Date Type Department Care Team (Late st Contact Info) Description 03/05/2024 10:30 AM EDT Immunization/I njection Hematology/Oncology Treatment, [place] 200 [facility] [place] [address] Nurse, Med 4 [address] [place] [address] Carcinoma of bladder (HCC)*; Iron deficiency anemia, [...] albuterol 120 mL 5 3 Active Ipratropium Eitzen 0.02 % Inhalation Solution (Atrovent)Indicat ions:Moderate persistent asthma without complication Inhale 2.5 mL via nebulizer in the morning and 2.5 mL at noon and 2.5 mL in the evening and 2.5 mL before bedtime. Mix with albuterol solution. 75 mL 12 3 Active Spiriva Respimat 2.5 MCG/ACT Inhalation Aerosol Solution (Tiotropium Eitzen Monohydrate)Indic ations:Moderate persistent asthma without complication INHALE 2 PUFFS BY MOUTH EVERY DAY 12 g 3 3 Active Warfarin Sodium 5 MG Oral Tablet (Coumadin)Indicat ions:Pulmonary embolism and infarction (HCC) Take 0.5-1 Tablets by mouth every evening. Or take as instructed by the [facility] 90 Tablet 3 [...] Tablet Extended Release 12 Hour (Humibid LA)Indications:Ac eklutna cough Take 1 Tablet by mouth in [...] rinse after steroid. Test performed by Sameer CREDIT COUNSELOR CPFT Pleural plaque due to asbestos exposure Restrictive lung disease Overview: In Check dial performed to assess inhaler technique: 12/15/19 Name of inhalers Albuterol Pass: Yes at 60 L/min and Advair Pass: Yes at 60 L/min. Encouraged to to take deep breath, use aero chamber, and rinse after steroid. Test performed by Sameer CREDIT COUNSELOR CPFT Hx of pulmonary embolus 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 Overview: [place] C0-M6 documented as of this encounter (statuses [...] Malignant neoplasm of prostate 09/23/2008 03/27/2018 Overview: [place] grade 3 Atrial flutter 09/02/2007 10/16/2007 Herpes [...] mRNA, LNP-s, No Pre serve, 2-Dose Series (Dataium) 12/01/2021,01/16/2021,12/26/2020 COVID-19, LNP-s, No Preserve , Ozzy-sucrose, Ages 12+ (Dataium) 12/01/2021 COVID-19, MRNA-LNP, 23-24, P F, 30 MCG/0.3 mL, 12 YRS AND ABOVE, IM (Clipmarks-Comirnaty) 09/18/2023 Covid-19, Mrna, Lnp-s, Pf, B ivalent, 30 Mcg, IM, 12 yrs and above (Dataium) 10/09/2022 Pneumococcal Conjugate Vacc, 13 Valent (Prevnar) [...] Sign Reading Time Taken Comments Blood Pressure 111/62 03/05/2024 10:47 AM EDT Pulse - - Temperature - - Respiratory Rate - - Oxygen Saturation - - Inhaled Oxygen Concentration - - Weight - - Height - - Body Mass Index - - documented in this encounter Nursing Notes * Venecia Infante LPN - 03/05/2024 10:55 AM EDT Retacrit 40,000 units administered SQ into Left Upper extremity per standing order HGB 8.4 Patient tolerated injection and will return in 1 week documented in this encounter Plan of Treatment Upcoming Encounters Date Type Department Care Team (Late st Contact Info) Description 04/01/2024 10:30 AM EDT Laboratory Laboratory [address] [place] [phone] [facility] [address] [place] [address] 04/02/2024 6:30 AM EDT Anticoagulation Pharmacy Call Center 58[address]60 [facility] [place] [address] [facility] 58 60 [facility] [place] [address] 04/02/2024 10:30 AM EDT Immunization/Injection Hematology/Oncology Treatment, [place] 200 [facility] [phone] [facility], Med 200 [facility] [address] 04/08/2024 10:00 AM EDT Office Visit Cardiology, [facility] [address] [place] [address] Genny Donahue CRNP [address] [place] [address] 05/07/2024 10:20 AM EDT Office Visit Family Medicine [address] [place] [phone] Johnson Roldan CRNP [address] [place] [address] [place] [address] 05/13/2024 11:00 AM EDT Office Visit Hematology/Oncology Dony Hickman [place] 200 [facility] [place] [phone] Ludwig Louis MD [address] [facility] [place] [address] 05/15/2024 8:40 AM EDT Office Visit Rheumatology [address] [place] [phone] Win Nielsen MD [address] [facility] [address] 05/18/2024 2:30 PM EDT Office Visit Cardiology, [facility] [place] [address] Andres Rainey MD [address] [place] [address] Scheduled Procedures Name Priority Associated Diagnoses Date/Ti me ESOPHAGOGASTRODUODENOSCOPY ( EGD), FLEXIBLE, TRANSORAL, DIAGNOSTIC Recall Stark's esophagus with dysplasia Health Maintenance Due Date Last Done Comments Depression Screening 07/12/2021 07/12/2020 CKD PHOS USE SMARTSET 87729 08/21/2022 10/0 02/2021, 07/12/2020, 03/13/2019, Additional history exists *BISPHONATE OR OTHER ACCEPTABLE MEDICATION NEEDED FOR OSTEOPOROSIS (REFER TO SMARTSET #1146) 10/14/2023 Albumin/Creatinine Ratio 04/22/2024 023, 05/24/2022, 03/26/2022, Additional history exists TSH 01/20/2025 01/21/2024, 09/19, 08/20/2023, Additional history exists Stark's Esophagus Surveilance 02/26/2025 02/26/2022, 02/26/2022, 07/04/2021, Additional history exists CKD HGB USE SMARTSET 16127 03/25/202503/25, 2024, 03/18/2024, Additional history exists DXA Scan 07/05/2025 07/05/2023, 10/19, 11/04/2018, Additional history exists DTaP,Tdap,and Td Vaccines (2 - Td or Tdap) 08/19/2027 08/19/2017, 08/20/2008 Pneumococcal Vaccine: 65+ Years Completed 06/23/2015, 05/14/2013, 04/18/2004 Zoster Vaccines Completed 12/02/2020, 08/15/2020 VITAMIN D LEVEL ONCE IN A LIFETIME-USE SMARTSET# [id number] Completed 04/22/2023, 08/28/2021, 07/14/2015 Influenza Vaccine (FLU [...] this encounter Medical Devices Implanted Type Area Threading Machine Setter Device Identifier Shelf Expiration Date Model / Serial / Lot Power Port 8fr Sngl Lumen Plas - [id number] Implanted:Qty: 1 on 02/22/2022 at [facility] : PERIPHERAL VASCULAR [id number] 02/15/2023 [id number] / / [id number] documented as of this encounter Visit Diagnoses [...] Date Dose Rate Site Epoetin Ivan-epbx (Retacrit) 32872 UNIT/ML inj 40,000 Units 40,000 Units, Subcutaneous, ONCE, On Marilin 03/05/24 at 1115, For 1 dose Given 03/05/2024 10:51 AM EDT 40,000 Units Arm Left Upper documented in this encounter Advance Directives Latest Code Status on File Code Status Date Activated Date Inactivated Comments Full Code 09/03/2007 7:29 AM 09/03/2007 4:02 PM
--- OUTSIDE RECORDS SUMMARY | 2024-04-01 06:14 | External Medical Summary ---
Author Name Unknown Address Unknown Organization K01:LABORATORY [facility] - [facility] [address] Laboratory Report Ordering Provider Test Date Status ADRIENNE SALCIDO 2024 11:31:27 Final Observation Date Value Abnormality Reference (Units ) Status WBC, Total 2024 11:31:27 4.75 4.00-10.80 (K/uL) Final RBC 2024 11:31:27 3.19 4.50-5.25 (M/uL) Final Hemoglobin 2024 11:31:27 8.9 Below low normal 14.0-16.8 (g/dL) Final HCT 2024 11:31:27 31.5 Below low normal 40.0-48.4 (%) Final MCV 2024 11:31:27 98.7 82.0-99.5 (fL) Final MCH 2024 11:31:27 27.9 27.0-34.0 (pg) Final MCHC 2024 11:31:27 28.3 32.0-36.0 (g/dL) Final RDW 2024 11:31:27 15.9 11.5-15.5 (%) Final Platelets 2024 11:31:27 125 Below low normal 140-400 (K/uL) Final MPV 2024 11:31:27 11.6 6.6-11.1 (fL) Final Nucleated erythrocytes/100 leukocytes [Ratio] in Blood by Automated count 2024 11:31:27 0 <=0 (/100 WBCs) Final Performing Location LABORATORY [facility] - [address] [place] [address]
--- OUTSIDE RECORDS SUMMARY | 2024-04-01 06:15 | External Medical Summary | Summary of Care ---
Author Name Unknown Organization [facility] Address [address] [place] [address] Phone [phone] Care Team Providers Care Acid Conditioner Name Role Phone Unavailable Primary Care Provider Unavailabl e Encounter Details Date Type Department Care Team (Late st Contact Info) Description 03/23/2024 Orders Only Hematology/Oncology, [facility] [address] [place] [address] Ludwig Louis MD [address] [place] [address] Allergies Active Allergy Reactions Criticality Noted Date Comments Penicillins Other (Please comment),Rash High Eyes swell Pollen 05/03/2022 Wound Dressing Adhesive Rash 05/02/2023 Patient reported documented as of this encounter (statuses as of 03/23/2024) Medications Medication Sig Dispensed Refills Start Date [...] albuterol 120 mL 5 11/21/2022 Active Ipratropium Duarte 0.02 % Inhalation Solution (Atrovent)Indicatio ns:Moderate persistent asthma without complication Inhale 2.5 mL via nebulizer in the morning and 2.5 mL at noon and 2.5 mL in the evening and 2.5 mL before bedtime. Mix with albuterol solution. 75 mL 12 11/21/2022 Active Spiriva Respimat 2.5 MCG/ACT Inhalation Aerosol Solution (Tiotropium Duarte Monohydrate)Indicat ions:Moderate persistent asthma without complication INHALE [...] as of this encounter (statuses as of 03/23/2024) Active Problems Problem Noted Date Diagnosed Date [...] rinse after steroid. Test performed by Sameer CDL DRIVER CPFT Pleural plaque due to asbestos exposure Restrictive lung disease Overview: In Check dial performed to assess inhaler technique: 12/15/19 Name of inhalers Albuterol Pass: Yes at 60 L/min and Advair Pass: Yes at 60 L/min. Encouraged to to take deep breath, use aero chamber, and rinse after steroid. 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 icoagulant therapy [...] as of this encounter (statuses as of 03/23/2024) Immunizations Name Administration Dates Next Due COVID-19 mRNA, LNP-s, No Pre serve, 2-Dose Series (Bamatea) 12/01/2021,01/16/2021,12/26/2020 COVID-19, LNP-s, No Preserve , Ozzy-sucrose, Ages 12+ (Pfizer) 12/01/2021 COVID-19, MRNA-LNP, 23-24, P F, 30 MCG/0.3 mL, 12 YRS AND ABOVE, IM ([facility]) 09/18/2023 Covid-19, Mrna, Lnp-s, Pf, B ivalent, 30 Mcg, IM, 12 yrs and above (Bamatea) 10/09/2022 Pneumococcal Conjugate Vacc, 13 Valent (Prevnar) [...] Description 2024 10:30 AM EDT Laboratory Laboratory [address] [place] [phone] [place] [address] 03/26/2024 10:30 AM EDT Immunization/Injection Hematology/[address], [address] [phone] Marylou, Chair 8 Hem Onc [address] [place] [address] 04/01/2024 10:30 AM EDT Laboratory Laboratory [address] [place] [phone] [place] [address] 04/02/2024 6:30 AM EDT Anticoagulation Pharmacy Call Center [address] [place] [address] [facility] 58 60 [facility] [place] [address] 04/02/2024 10:30 AM EDT Immunization/Injection Hematology/Oncology Treatment, [address] [phone] Nurse, Med 4 200 [facility] [place] [address] 04/08/2024 10:00 AM EDT Office Visit Cardiology [facility] [address] [place] [address] Genny Donahue CRNP [address] [place] [address] 05/07/2024 10:20 AM EDT Office Visit Family Medicine [address] [place] [phone] Johnson Roldan [address] [place] [address] 05/13/2024 11:00 AM EDT Office Visit Hematology/Oncology [facility] [place] [address] [place] [phone] Ludwig Louis MD 200 [facility] [place] [address] 05/15/2024 8:40 AM EDT Office Visit Rheumatology [address] [place] [phone] Win Nielsen MD [address] [place] [address] [place] [address] 05/18/2024 2:30 PM EDT [facility] [address] [place] [address] Andres Rainey MD [address] [place] [address] Scheduled Procedures Name Priority Associated Diagnoses Date/Ti me ESOPHAGOGASTRODUODENOSCOPY ( EGD), FLEXIBLE, TRANSORAL, DIAGNOSTIC Recall Stark's esophagus with dysplasia Health Maintenance Due Date Last Done Comments Depression Screening 07/12/2021 07/12/2020 CKD PHOS USE SMARTSET 01708 08/21/2022 10/0 02/2021, 07/12/2020, 03/13/2019, Additional history exists *BISPHONATE OR OTHER ACCEPTABLE MEDICATION NEEDED FOR OSTEOPOROSIS (REFER TO SMARTSET #1146) 10/14/2023 Albumin/Creatinine Ratio 04/22/2024 023, 05/24/2022, 03/26/2022, Additional history exists TSH 01/20/2025 01/21/2024, 09/19, 08/20/2023, Additional history exists Stark's Esophagus Surveilance 02/26/2025 02/26/2022, 02/26/2022, 07/04/2021, Additional history exists CKD HGB USE SMARTSET 66679 03/18/202503/18, 03/18/2024, 03/11/2024, Additional history exists DXA Scan 07/05/2025 07/05/2023, 10/19, 11/04/2018, Additional history exists DTaP,Tdap,and Td Vaccines (2 - Td or Tdap) 08/19/2027 08/19/2017, 08/20/2008 Pneumococcal Vaccine: 65+ Years Completed 06/23/2015, 05/14/2013, 04/18/2004 Zoster Vaccines Completed 12/02/2020, 08/15/2020 VITAMIN D LEVEL ONCE IN A LIFETIME-USE SMARTSET# [id number] Completed 04/22/2023, 08/28/2021, 07/14/2015 Influenza Vaccine (FLU [...] this encounter Medical Devices Implanted Type Area Respiratory Therapy Manager Device Identifier Shelf Expiration Date Model / Serial / Lot Power Port 8fr Sngl Lumen Plas - [id number] Implanted:Qty: 1 on 02/22/2022 at [facility] : PERIPHERAL VASCULAR [id number] 02/15/2023 [id number] / / [id number] documented as of this encounter Advance Directives Latest Code Status on File Code Status Date Activated Date Inactivated Comments Full Code 09/03/2007 7:29 AM 09/03/2007 4:02 PM
[2024-04-01 06:26] LABS: Hemoglobin 8.4 g/dl (14.0-18.0); Mean Corpuscular Hemoglobin 27.2 pg (25.0-34.0); Mean Corpuscular Volume 93.9 fL (80.0-100.0); Mean Platelet Volume 10.5 fL (9.4-12.4); Platelet Count 94 K/uL (130-400); RDW Coefficient of Variation 15.7 % (11.5-14.5); RDW Standard Deviation 53.6 fL (36.4-46.3); Red Blood Count 3.09 M/uL (4.70-6.10); White Blood Count 2.47 K/ul (4.8-10.8)
[2024-04-01 06:36] LABS: BUN Creatinine Ratio 29.5 (10-20); Calcium 8.1 mg/dl (8.6-10.3); Est GFR (African American) 45.6 ml/min; Est GFR (Non-African American) 39.4 ml/min; Potassium 4.3 mmol/L (3.5-5.1)
[2024-04-01 06:45] LABS: INR 3.3 (0.9-1.1); Prothrombin Time 32.4 Seconds (9.0-12.0)
--- NOTE | 2024-04-01 07:00 | Ultrasound Report ---
US scrotum/testicle CLINICAL HISTORY: 89 years-old Male with orchitis. Acute scrotal pain COMPARISON STUDY: March 19, 2024 TECHNIQUE: Real-time, grayscale, and color Doppler sonography of the testes and scrotum is performed. Images are reviewed in the transverse and longitudinal planes. FINDINGS: RIGHT HEMISCROTUM: The right testis measures 3.2 x 2.3 x 2.7 cm and the parenchyma appears unremarkab le. No intratesticular mass is seen. Normal-appearing arterial inflow is present within the right yeny ticle. Right epididymal cysts are again noted measuring up to 4.1 cm. Calcifications within the epidi dymis also noted. No varicocele or hydrocele is identified. Prominent subcutaneous edema of the scrot al wall. LEFT HEMISCROTUM: The left testis measures 2.8 x 1.8 x 2.8 cm and the parenchyma appears unremarkable . No intratesticular mass is seen. Normal-appearing arterial inflow is present within the left testic le. 5 mm hypoechoic focus in the left epididymal head without color-flow measures 5 mm which is indet erminate, possibly a complex cyst. No varicocele or hydrocele is identified. Prominent subcutaneous e ed of the scrotal wall. IMPRESSION: 1. Scrotal wall edema redemonstrated. No fluid collections. 2. No testicular torsion or mass. ACT 112: Negative or not required by law. The above report was generated using voice recognition software. It may contain grammatical, syntax o r spelling errors. Electronically signed by: Denys Wing M.D. 04/01/2024 6:59 AM
--- NOTE | 2024-04-01 07:51 | Cardiology Consultation ---
Date of Consultation April 01, 2024 Assessment & Plan (1) Acute metabolic encephalopathy: (2) Acute on chronic diastolic CHF (congestive heart failure): (3) Persistent atrial fibrillation: (4) Tachy-pb syndrome: (5) Pacemaker: Plan IMPRESSION: Medically complex 89-year-old male presenting with acute altered mental status and fluid retention. Symptomatic improvement since Gabriel catheter has been placed. Lasix and spironolactone currently on hold. Patient receiving IV fluids PLAN: Acute metabolic encephalopathy: Metabolic encephalopathy in the setting of possible infection versus orchitis. Symptomatic improvement with the placement of Gabriel catheter and urine drainage Will defer to primary service and urology regarding antibiotic recommendations. Urine culture pending. Acute on chronic diastolic CHF: Patient does not appear terribly hypervolemic on exam. Renal function improved with holding of Lasix and spironolactone and the addition of IVF. Caution use of IVF with HFpEF and moderate MS. 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 INR goal between [address] Meredith. Further recommendations pending assessment. I spent a total of 40 minutes on the date of service in preparation, delivery, and documentation of the care provided to the patient excluding any time spent in the performance of separately billed services. JASON Baires Department of Cardiology, [facility] This chart was completed in part utilizing Speech Voice Recognition Software. Grammatical errors, random word insertions, pronoun errors, and incomplete sentences are an occasional consequence of this system due to software limitations, ambient noise, and hardware issues. Any formal questions or concerns about the content, text, or information contained within the body of this dictation should be directly addressed to the provider for clarification. Supervising Physician Co-Signing Physician Notes Attending attestation: Case reviewed with the advanced practitioner. I have personally performed a history and physical examination on the patient. I have reviewed the advanced practitioner's documentation on the date of service referenced in note, and I agree with, and take responsibility for the plan of care. Subjective: Patient feels subjectively improved Exam: : Gabriel catheter in place draining clear yellow urine Cardiovascular: Irregular rhythm, 1/6 stock murmur, trace lower extremity edema. Per patient and spouse, lower extremity edema and scrotal edema prompting emergency room visit has significantly improved since arrival to hospital and placement of Gabriel catheter Data: INR 3.3, down from 4.3 on 03/31/2024 Impression/ Plan: IV fluids have been discontinued. Diuretic on hold. Continue observe with Gabriel catheter with regards to urinary outflow tract obstruction. Hold Coumadin for INR greater than 3. Goal INR 23 given atrial fibrillation, mitral stenosis. I spent a total of 20 minutes coordinating, documenting, and providing care for this patient excluding time spent in the performance of separately billed services or time spent by another provider. Patrick Meredith DO History of Present Illness Reason for Consultation: CHF Requesting Physician: Eugenia fuist Attending Physician: Olena Argueta MD History of Present Illness 89-year-old male who initially presented to [facility] emergency department yesterday due to altered mental status. Found to have metabolic encephalopathy in the setting of possible infection versus orchitis. He was also noted to have bilateral lower extremity edema that has been present for about 2 weeks--outpatient records suggest that he has been noncompliant with his diuretics. With the recommendations of Dr. Rainey from 03/20/2024 he increased his Lasix to 40 mg daily x 5 days but symptoms persisted. This admission: Urology consulted-- He underwent a CT scan of the abdomen pelvis that showed evidence of chronic bladder outlet obstruction and infiltration of the bladder. Patient was noted to have small bilateral pleural effusions. Urinalysis was negative for nitrites but did show trace leukocyte esterace and did not have any significant pyuria or bacteria. Cultures pending. Patient is currently being treated with Rocephin. Recommended continued use of Gabriel catheter. Chest x-ray revealed evidence of congestive heart failure with pulmonary edema and small pleural effusions. BNP was elevated at 1792. Renal function at baseline knowing a serum creatinine averaging between 1.5 and 1.7. Outpatient baseline appears to be around 1.5. Primary service held spironolactone and did not give IV Lasix due to renal function. Prior ECHO from January 2024: Left ventricle is normal in size. Moderate concentric LVH. Apical wall motion abnormality may reflect pacemaker activation. Flattened septum is consistent with RV pressure overload. EF 55 to 60%. Bioprosthetic aortic valve. Gradient is normal for prosthetic aortic valve. Annuloplasty ring and prior mitral valve repair is present with thickening of the mitral valve leaflets. Moderate mitral stenosis is present. Mild mitral and tricuspid regurgitation. Right ventricular systolic pressure is elevated to be 50 to 60 mmHg. 04/01/2024: Telemetry: AFIB with PVCs 70-80s I/O: +400 mL Weight: 68.5 kg >> 66.5 kg Labs: improvement in scr from 1.7>>1.5 this am. K 4.3. Upon entrance into the room patient resting comfortably in bed. Somewhat of a poor historian, However confusion improved. Does not recall why he was admitted to the hospital. He denies any chest pain. Notes some chronic shortness of breath which is at baseline. No orthopnea or PND. Mild lower extremity edema. No cough. Denies palpitations, lightheadedness or dizziness. 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 Rainey Outpatient cardiac medications: Rosuvastatin 10 mg daily Furosemide 40 mg daily Spironolactone 12.5 mg daily Coumadin daily Past medical history: 1. Valvular heart disease, s/p AVR and MV repair [place] aortic valve bioprosthesis and a 28 mm [place] mitral valve annular ring), 2003 a. Mild intrinsic prosthetic aortic valve stenosis, moderate mitral stenosis, post surgical 2. Persistent atrial fibrillation/flutter a. status post flutter ablation in 2006 and 12/2014, with now persistent atrial fibrillation/flutter 3. Chronic diastolic CHF 4. 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 Hypertension. 6. Hyperlipidemia. 7. Chronic arthritic disease, chronic prednisone suppression. 8. Complicated shoulder surgery, September 2014, with bleeding and subsequent hypercoagulable state with pulmonary embolus. 9. 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 10. Status post partial colectomy, 08/08/2015. 11. Chronic anemia receiving iron infusions 12. Bladder carcinoma and BPH 13. Hypothyroidism. 14. Hx of acute hypoxic respiratory failure in the setting of RSV pneumonia 15. History of asbestos related restrictive lung disease Allergies Allergy/AdvReac Type Severity Reaction Status Date / Time Penicillins Allergy Intermediate RASH/EL-ORBITAL Verified 03/31/24 14:27 EDEMA Home Medications Medication Instructions Recorded Confirmed Type albuterol sulfate 90 mcg/actuation 2 puff inhalation Q4 PRN Wheezing 03/25/19 03/31/24 History aerosol inhaler coenzyme Q10 100 mg capsule 100 mg PO QAM 03/25/19 03/31/24 History (CoQ-10) esomeprazole magnesium 40 mg 40 mg PO BID 03/25/19 03/31/24 History capsule,delayed release (Nexium) polyethylene glycol 3350 17 gram 17 g PO QAM 03/25/19 03/31/24 History oral powder packet (Miralax) prednisone 5 mg tablet 5 mg PO QAM 03/25/19 03/31/24 History rosuvastatin 10 mg tablet (Crestor) 10 mg PO QPM 03/25/19 03/31/24 History warfarin 5 mg tablet 2.5 mg PO [id number] 03/25/19 03/31/24 History ferrous sulfate 325 mg (65 mg 325 mg PO QAM 04/25/21 03/31/24 History iron) tablet furosemide 40 mg tablet 40 mg PO DAILY PRN Weight Gain 01/23/24 03/31/24 History levothyroxine 125 mcg tablet 125 mcg PO QAM 01/23/24 03/31/24 History spironolactone 25 mg tablet 12.5 mg PO QAM 01/23/24 03/31/24 History tamsulosin 0.4 mg capsule 0.4 mg PO HS freqency 01/23/24 03/31/24 History tiotropium bromide 2.5 2 puff inhalation DAILY 01/23/24 03/31/24 History mcg/actuation mist for inhalation (Spiriva Respimat) zolpidem 5 mg tablet 5 mg PO HS PRN restless leg 01/23/24 03/31/24 History syndrome nitrofurantoin 100 mg PO Q12H 7 days #14 caps 03/30/24 03/31/24 Rx monohydrate/macrocrystals 100 mg capsule (Macrobid) cholecalciferol (vitamin D3) 25 25 mcg PO QAM 03/31/24 03/31/24 History mcg (1,000 unit) tablet (Vitamin D3) cyanocobalamin (vitamin B-12) 1,000 mcg PO DAILY 03/31/24 03/31/24 History 1,000 mcg tablet (Vitamin B-12) ipratropium 0.5 mg-albuterol 3 mg 3 ml inhalation Q6H PRN Wheezing 03/31/24 History (2.5 mg base)/3 mL nebulization soln magnesium 250 mg tablet 250 mg PO DAILY 03/31/24 03/31/24 History Patient History Medical History Bladder cancer dx 05/2021; TURBT, chemo + radiation Bladder tumor History of basal cell carcinoma History of rectal fissure History of COVID-19 DX'D 10/[facility]B, PRODUCTIVE COUGH, BODY ACHES, FEVER-RECOVERED AT HOME-SYMPTOMS RESOLVED SOB (shortness of breath) on exertion Arthritis Anticoagulated on Coumadin Heart disease Prostatitis Stark's esophagus GERD (gastroesophageal reflux disease) History of pulmonary embolism FOLLOWING SHOULDER SURGERY APPROX 5 YEARS -NO ISSUES SINCE Pacemaker TACHY-PB SYNDROME. ALSO HX OF A-FIB. LAST CHECKED 11/2021 - [facility] Tachy-pb syndrome History of atrial flutter Restless legs syndrome Dyslipidemia Carotid artery disease Spinal stenosis of lumbar region History of paroxysmal supraventricular tachycardia BPH (benign prostatic hypertrophy) Diverticular disease of colon COPD (chronic obstructive pulmonary disease) Hypertension Surgical History History of bladder surgery TURBT 05/29/2021 [facility] History of esophagogastroduodenoscopy (EGD) MULTIPLE History of tonsillectomy History of total knee replacement LEFT KNEE History of herniorrhaphy History of surgery MOHS PROCEDURE ON FACE History of colonoscopy History of bowel resection S/T DIVERTICULITIS History of arthroscopy B/L SHOULDERS History of cardiovascular surgery [place] [place] History of heart valve replacement A[place]IC [place]PLAC[place] [place] Status post inguinal hernia repair Status post cataract extraction Family History Brother Diabetes Cancer Esophageal Cancer Mother Colorectal cancer Lung cancer Social History Smoking Status: Unknown if ever smoked Tobacco Type: Smokeless Tobacco (Dip or Chew) Cigarettes Per Day: 0; Second Hand Exposure: No; Do You Dip or Chew Tobacco: Yes (1 can every 3-4 days); Hx Alcohol Use: No Hx Substance Use: No Preferred Language: Japanese Communication Ability: Effective Oyster Picker Required: No Beliefs That Will Affect Care: None marital status: Current Living Situation: Spouse current occupational status: retired Feels Safe at Home: Yes Safety Concerns: Feels Safe At This Time Diet: regular caffeine: No during the past year weight has: remained stable Physical Activity Frequency: Other Physical Activity Frequency Comment: "Does alot of yard work" Assistive Devices: Oxygen - Continuous Review of Systems Review of Systems: All systems reviewed & are unremarkable except as noted in HPI & below Physical Exam Constitutional: WD/WN, vitals as above no acute distress Neck: normal visual inspection and trachea midline Respiratory: normal respiratory effort Auscultation: + rales and + wheezes; no rhonchi Cardiovascular: Rate/Rhythm: regular rate and + irregularly irregular Heart Sounds: normal S1, normal S2 and + murmur (Systolic murmur) Vessels: no JVD Extremities: + edema (+ Bilateral lower extremity edema to the knees) Gastrointestinal (Abdomen): normal bowel sounds, soft, nontender, no hepatosplenomegaly Skin: no rashes, warm and dry Neurologic: PERRL, EOMI, accommodation nl, no face palsy, no dysarthria Psychiatric: A+Ox3, euthymic affect Results & Data Vital Signs (Past 12 Hours) Vital Signs Temp Pulse Pulse Resp BP Pulse Ox O2 Del Method 04/01/24 07:30 36.6 C 80 18 122/57 L 97 Room Air 04/01/24 04:08 36.4 C L 82 19 102/58 L 93 Room Air 03/31/24 23:15 36.5 C 83 17 109/61 97 Room Air 03/31/24 22:00 79 03/31/24 20:16 36.7 C 61 16 103/44 L 94 Room Air Laboratory Results Cardiac Enzymes 03/31/24 03/31/24 Range/Units 11:30 14:24 AST 18 (13-39) U/L Troponin I High Sens 31.4 H 28.2 H (0-20) pg/ml B-Natriuretic Peptide 1792 H (0-100) pg/ml Coagulation 03/31/24 04/01/24 Range/Units 11:30 05:48 PT 40.8 H 32.4 H (9.0-12.0) Seconds APTT 40 H (21-31) Seconds B-Natriuretic Peptide 1792 H (0-100) pg/ml CBC 03/31/24 04/01/24 Range/Units 11:30 05:48 WBC 3.95 L 2.47 L (4.8-10.8) K/ul RBC 3.43 L 3.09 L (4.70-6.10) M/uL Hgb 9.5 L 8.4 L (14.0-18.0) g/dl Hct 32.9 L 29.0 L (42.0-52.0) % Plt Count 119 L 94 L (130-400) K/uL Neut # (Auto) 3.59 (1.40-6.50) K/uL Lymph # (Auto) 0.14 L (1.20-3.40) K/uL [place] # (Auto) 0.18 (0.11-0.59) K/uL Eos # (Auto) 0.00 (0.00-0.50) K/uL Baso # (Auto) 0.02 (0.00-0.20) K/uL Comprehensive Metabolic Panel 03/31/24 04/01/24 Range/Units 11:30 05:48 Sodium 137 139 (136-145) mmol/L Potassium 4.8 4.3 (3.5-5.1) mmol/L Chloride 105 109 H (98-107) mmol/L Carbon Dioxide 24 23 (21-32) mmol/L BUN 49 H 46 H (6-23) mg/dl Creatinine 1.74 H 1.56 H (0.6-1.4) mg/dl Glucose 113 H 104 H (70-99(Fasting)) mg/dl Calcium 9.0 8.1 L (8.6-10.3) mg/dl AST 18 (13-39) U/L ALT 10 (7-52) U/L Alkaline Phosphatase 54 (34-104) U/L Total Protein 6.2 (6.0-8.3) gm/dl Albumin 3.8 (3.4-5.0) gm/dl Intake and Output 03/31/24 04/01/24 04/01/24 22:59 06:59 14:59 Intake Total 200 / 400 200 / 400 Output Total 150 / 400 250 / 400 Balance 50 / 0 -50 / 0 Intake: IV 50 / 50 cefTRIAXone SODIUM 2,000 mg In 50 / 50 50 ml @ 100 mls/hr IV NOW STA Rx#:[id number] Oral 150 / 350 200 / 350 Output: Urine 250 / 250 Urine Amount (Catheter) 150 / 150 Gabriel/Indwelling 150 / 150 Other: Weight 68.5 kg 66.5 kg Weight Measurement Method Built in [facility] Built in [facility]
[2024-04-01] MEDS: predniSONE 5 MG TAB PO SCH (08:12)
[2024-04-01] MEDS: LEVOTHYROXINE SODIUM 125 MCG TABLET PO SCH (08:12)
[2024-04-01] MEDS: MAGNESIUM OXIDE 400 MG TAB PO SCH (08:12)
[2024-04-01] MEDS: CHOLECALCIFEROL 25 MCG (1000 UNITS) TAB PO SCH (08:12)
[2024-04-01] MEDS: CYANOCOBALAMIN (B-12) 500 MCG TABLET PO SCH (08:12)
[2024-04-01] MEDS: FERROUS SULFATE 325 MG TAB PO SCH (08:12)
[2024-04-01] MEDS: UMECLIDINIUM BROMIDE 62.5MCG/BLISTER 7 PUFFS/INHALER INH SCH (08:12)
--- NOTE | 2024-04-01 11:56 | Electrocardiogram Report ---
Test Reason : Blood Pressure : / mmHG Vent. Rate : 077 BPM Atrial Rate : 074 BPM P-R Int : 000 ms QRS Dur : 112 ms QT Int : 462 ms P-R-T Axes : 000 -66 232 degrees QTc Int : 522 ms Atrial fibrillation with premature ventricular or aberrantly conducted complexes Left anterior fascicular block Prolonged QT Abnormal ECG When compared with ECG of 31-MAR-2024 11:47, T wave inversion more evident in Lateral leads Confirmed by Lul Melo ([id number]) on 04/01/2024 11:56:18 AM Referred By: REFERRED SELF Confirmed By:Darci Melo
--- NOTE | 2024-04-01 15:56 | Urology Progress Note ---
Date of Service April 01, 2024 Assessment & Plan (1) Acute metabolic encephalopathy: (2) Epididymitis: Plan 89-year-old male admitted with acute metabolic encephalopathy and concern for epididymitis Afebrile and hemodynamically stable Labs show a WBC of 2.47, hemoglobin 8.4, creatinine 1.56. Continue to trend. Urine culture 03/19 was negative Blood cultures are pending Gabriel intact and draining appropriatelyurine is clear yellow Follow-up scrotal ultrasound shows scrotal wall edema redemonstrated, no fluid collections, no testicular torsion or mass. No acute urological intervention warranted Continue antibiotics and tailor as culture data becomes available Continue supportive care Maintain Gabriel catheter for at least 1 week for bladder rest and decompression while treating infection. Urology will follow. Admission and Anticipated Discharge Date Admission Date: March 31, 2024 Subjective Patient seen at bedside this AM Awake, resting in bed on arrival No acute distress Gabriel draining clear yellow urine He denies any significant pain or discomfort at present No fevers Reports improvement in scrotal/testicular discomfort Review of Systems Constitutional: as per Subjective / HPI Genitourinary: + as per Subjective / HPI Physical Exam Constitutional: no acute distress Respiratory: no respiratory distress and no labored breathing Neurologic: moves all extremities and awake Psychiatric: Orientation: alert, oriented to person and cooperative Genitourinary: Gabriel intact, draining clear yellow urine. Mild bilateral scrotal swelling with no erythema, eschar, or open areas of drainage. No fluctuance or crepitus. There is some slight tenderness to palpation. Results & Data Vital Signs (Past 12 Hours) Vital Signs Temp Pulse Resp BP Pulse Ox O2 Del Method 04/01/24 15:03 36.4 C L 98 H 17 107/58 L 94 Room Air 04/01/24 10:55 36.7 C 87 18 103/59 L 96 Room Air 04/01/24 08:00 Room Air 04/01/24 07:30 36.6 C 80 18 122/57 L 97 Room Air 04/01/24 04:08 36.4 C L 82 19 102/58 L 93 Room Air PG Care Time/CCT Total # of Minutes Spent Total Time Spent with Patient: Total time spent is greater than 50% in coordination of care (as documented) at patient's floor/unit and/or counseling patient: Coding Level of Care Code 90262 SUB INP/OBS CARE 2/35MIN Diagnoses Acute metabolic encephalopathy G93.41 Epididymitis N45.1
--- NOTE | 2024-04-01 16:12 | CT Scan Report ---
CT chest diagnostic wo con CT DOSE: 311.2 mGy.cm CLINICAL HISTORY: 89 years-old Male with r/o pneumonia. Acute shortness of breath. TECHNIQUE: Multiaxial CT images of the chest were performed without contrast. A dose lowering techni que was utilized adhering to the principles of ALARA. COMPARISON: 05/17/2022. FINDINGS: No thyroid nodule is identified. The patient is status post midline sternotomy and cardiac valve surgeries. Pacemaker leads are in place. The heart is enlarged and without pericardial effusion . Severe coronary arterial calcifications. There is diminished attenuation of the cardiac blood pool last compared to the myocardium suggesting anemia. Atherosclerosis of the thoracic aorta without aneu rysm. Dilation of the main pulmonary artery is suggestive of pulmonary arterial hypertension (4 cm). There are small pleural effusions with dependent atelectasis. No pneumothorax. Mild intralobular sept al thickening. No suspicious pulmonary nodules or mass is identified. Bilateral calcified pleural zeb ques. Mild pulmonary emphysema. A small hiatal hernia is noted. Gynecomastia. Hepatosplenomegaly. Gastric fundal diverticulum. Body wall edema. Chronic mild superior endplate comp ression deformities at T3 and T4 without retropulsion demonstrate up to approximately 20% vertebral b bethel height loss, unchanged. IMPRESSION: 1. Cardiomegaly with evidence of pulmonary arterial hypertension. 2. Mild pulmonary edema with small pleural effusions and anasarca. 3. Mild dependent subsegmental atelectasis. 4. 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 ACT 112: Negative or not required by law. Dictated: 04/01/2024 3:27 PM Transcribed: 04/01/2024 3:38 PM [facility] [id number] [email or web address] Electronically signed by: Denys Wing M.D. 04/01/2024 4:10 PM
--- NOTE | 2024-04-01 16:23 | Hospitalist Progress Note ---
Date of Service April 01, 2024 Assessment & Plan (1) Acute metabolic encephalopathy: (2) Acute decompensated heart failure: (3) Status post aortic valve replacement: (4) Status post mitral valve repair: (5) Atrial fibrillation: (6) Pacemaker: (7) Acute kidney injury superimposed on CKD: (8) Testicular discomfort: (9) Spermatocele of epididymis, single: (10) Nocturnal hypoxemia: Plan per previous hospitalist notes with addendum: This is a 89yo M with a PMH of atrial fibrillation on coumadin, pulm HTN, dyslipidemia, hypothyroidism, asthma, asbestos history with restrictive lung disease, HFpEF, history of bladder cancer BPH, CKD III, h/o aortic valve replacement, insomnia with Ambien use and other medical problems listed below who was brought in by for worsening confusion. History obtained per chart review and at bedside due to patient's altered status. Acute metabolic encephalopathy In setting of ? infection vs orchitis prophylaxis recently on doxy and switched to Macrobid yesterday, possible gastroenteritis with diarrhea overnight Continue empiric abx coverage with Rocephin for now, follow blood culture Delirium precautions 04/01 back to baseline mental status Diarrhea In setting of Macrobid vs gastroenteritis Stool culture pending Transitioned to Rocephin Supportive care 04/01 resolving Orchitis Urine culture: pending blood culture: pending Scrotal US: (+) edema, no fluid collection on Ceftriaone IV Urologist consulted Acute decompensated HF S/p aortic Valve replacement, Bovine valve Hx of mitral valve repair Noted to be in decompensated HF during January admission in setting of viral illness, cardiology helpful with diuresis recs given medically complex noting BLE edema x 2 weeks, did complete 5 days of 40mg PO Lasix starting 03/[address] Rainey, has since resumed "lax" 3x/week lasix 40mg PRN dosing, per * 2D ECHO from January 2024: Left ventricle is normal in size. Moderate concentric LVH. Apical wall motion abnormality may reflect pacemaker activation. Flattened septum is consistent with RV pressure overload. EF 55 to 60%. Bioprosthetic aortic valve. Gradient is normal for prosthetic aortic valve. Annuloplasty ring and prior mitral valve repair is present with thickening of the mitral valve leaflets. Moderate mitral stenosis is present. Mild mitral and tricuspid regurgitation. Right ventricular systolic pressure is elevated to be 50 to 60 mmHg Saturating at 95% on room air, BNP 1792 CXR today with cardiomegaly and cardiac pacemaker with evidence of congestive failure. Bilateral airspace opacities likely represent pulmonary edema. Correlate clinically Routine cards consult placed Hold spironolactone. Did not give IV lasix in ED due to HOLLY, GI losses Gabriel placed for accurate I&Os, daily weights 04/01 Cardiology service consulted minimal pulmonary edema CT chest 1. Cardiomegaly with evidence of pulmonary arterial hypertension. 2. Mild pulmonary edema with small pleural effusions and anasarca. 3. Mild dependent subsegmental atelectasis. 4. 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 hold Lasix for now in light of crea elevation monitor closely appreciate Cardiology service recommendations HOLLY superimposed on CKD Cr 1.7 today in setting of GI losses, Macrobid Baseline Cr ~ 1.2-1.4 crea 1.4--> 1.7 --> 1.5 Persistent atrial fibrillation Supratherapeutic INR INR 4.3 ---> 3.3 no signs of bleeding monitor Chronic Anemia receives procrit weekly per ligia Hg 9.5--> 8.4 monitor Hg Moderate persistent asthma COPD Nocturnal Hypoxemia Denies recent resp issues or URI Continue home inhalers, baseline 2L HS Hx Tachy/Pb Syndrome s/p Pacemaker HTN HLD Continue spironolactone, rosuvastatin Continue Coumadin Needs follow-up with Coumadin clinic on discharge Tobacco use disorder Counseled to quit chewing tobacco Adding nicotine patch Chronic Osteoarthritis Continue daily 5mg Prednisone, follows with rheum Hypothyroidism Continue levothyroxine 125 mcg daily BPH Continue flomax 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 Louis and Urology, Dr. Borges consulted as above RLS Plan to hold home Ambien for now given lethargic status, resume as appropriate DVT Ppx: hold evening coumadin dose 2/2 supratherapeutic INR Code status: FULL PCP: Richar Dispo: lives at home PT/OT eval Admission and Anticipated Discharge Date Admission Date: March 31, 2024 Subjective ff up for lethargy, orchitis, CHF, HOLLY, etc seen resting in bed, comfortable states he feels improved compared to yesterday oriented x 3, answering questions appropriately patient's at the bedside, states he looks better today, much more alert patient still having some dysuria, testicular pain denies chest pain, dyspnea, fever/chills no other symptoms Review of Systems Review of Systems: all noted and negative except for above Physical Exam Physical Exam: General- oriented x 3, not in distress, speaks in sentences with no effort or accessory muscle use Eyes- anicteric Neck- no JVD Lungs- mild rales at the bases Heart- normal rate, regular rhythm; no murmurs Abdomen- normal bowel sounds, nondistended, soft, nontender (+) moderate scrotal edema- no erythema/ warmth, (+) mild tenderness Extremities- no pretibial edema, no calf tenderness Neuro- alert, oriented x 3; no gross focal neurologic deficits Skin- warm & dry Results & Data Results & Data Vital Signs (Past 12 Hours) Vital Signs Temp Pulse Resp BP Pulse Ox O2 Del Method 04/01/24 15:03 36.4 C L 98 H 17 107/58 L 94 Room Air 04/01/24 10:55 36.7 C 87 18 103/59 L 96 Room Air 04/01/24 08:00 Room Air 04/01/24 07:30 36.6 C 80 18 122/57 L 97 Room Air all noted and reviewed including below
[2024-04-01] MEDS: cefTRIAXone SODIUM 2,000 MG/50 ML BAG IV SCH (16:26)
[2024-04-02] MEDS: PHENAZOPYRIDINE HCL 100 MG TAB PO STA (00:17)
[2024-04-02 06:27] LABS: Hemoglobin 8.5 g/dl (14.0-18.0); Mean Corpuscular Hgb Conc 29.3 g/dL (32.0-36.0); Mean Corpuscular Volume 92.1 fL (80.0-100.0); Mean Platelet Volume 10.6 fL (9.4-12.4); Platelet Count 87 K/uL (130-400); RDW Coefficient of Variation 15.4 % (11.5-14.5); Red Blood Count 3.15 M/uL (4.70-6.10); White Blood Count 2.81 K/ul (4.8-10.8)
[2024-04-02 06:53] LABS: INR 2.3 (0.9-1.1); Prothrombin Time 23.4 Seconds (9.0-12.0)
[2024-04-02 06:58] LABS: BUN Creatinine Ratio 30.6 (10-20); Creatinine Clr Calc Pharmacy 31.4 ml/min; Est GFR (African American) 50.2 ml/min; Est GFR (Non-African American) 43.4 ml/min; Potassium 4.1 mmol/L (3.5-5.1)
--- NOTE | 2024-04-02 07:18 | Cardiology Progress Note ---
Date of Service April 02, 2024 Assessment & Plan (1) Acute metabolic encephalopathy: (2) Acute on chronic diastolic CHF (congestive heart failure): (3) Persistent atrial fibrillation: (4) Tachy-pb syndrome: (5) Pacemaker: Plan IMPRESSION: Medically complex 89-year-old male presenting with acute altered mental status and fluid retention. Symptomatic improvement since Gabriel catheter has been placed. Lasix and spironolactone held on admission. PLAN: Acute metabolic encephalopathy: Metabolic encephalopathy in the setting of possible infection versus orchitis. Symptomatic improvement with the placement of Gabriel catheter and urine drainage Will defer to primary service and urology regarding antibiotic recommendations. Urine culture pending. Acute on chronic diastolic CHF: Patient appears to have worsening lower extremity edema this am. Chronic dyspnea. -Restart low dose Lasix 20 mg daily (home dose normally 40 mg daily) -Strict I&O. 2g sodium diet. -Monitor renal function. K goal of 4.0 and mag goal of 2.0- replace as needed -Given underlying diastolic heart failure and mitral stenosis recommend maintaining a hemoglobin greater than 10. 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 INR goal between [address] Meredith. Further recommendations pending assessment. I spent a total of 30 minutes on the date of service in preparation, delivery, and documentation of the care provided to the patient excluding any time spent in the performance of separately billed services. JASON Baires Department of Cardiology, [facility] This chart was completed in part utilizing Speech Voice Recognition Software. Grammatical errors, random word insertions, pronoun errors, and incomplete sentences are an occasional consequence of this system due to software limitations, ambient noise, and hardware issues. Any formal questions or concerns about the content, text, or information contained within the body of this dictation should be directly addressed to the provider for clarification. Admission and Anticipated Discharge Date Admission Date: March 31, 2024 Supervising Physician Co-Signing Physician Notes Attending attestation: Case reviewed with the advanced practitioner. I have personally performed a history and physical examination on the patient. I have reviewed the advanced practitioner's documentation on the date of service referenced in note, and I agree with, and take responsibility for the plan of care. Urology input noted and appreciated. Noncardiac issues include treatment for epididymitis, urinary retention, and now has tested positive for norovirus. INR is down to 2.3. Will consider resuming Coumadin if no invasive procedures planned. Resume furosemide at 20 mg p.o. daily. I spent a total of 20 minutes coordinating, documenting, and providing care for this patient excluding time spent in the performance of separately billed services or time spent by another provider. Patrick Meredith, DO Subjective Medically complex 89-year-old male presenting with acute altered mental status and fluid retention. Symptomatic improvement since Gabriel catheter has been placed. Lasix and spironolactone currently on hold. Improvement in renal function with the use of IV fluids and Gabriel catheter drainage. 04/02/2024: Telemetry: AFIB with PVCs 70-80s I/O: +710 mL Weight: 68.5 kg >> 66.5 kg >> 67.2 kg Labs: Ongoing anemia with a hemoglobin of 8.5, chronic anemia (9-10). INR 2.3. Improvement in scr from 1.7>>1.5>>1.4. K 4.1. Upon entrance into the room patient sitting up in the chair doing a puzzle. Main concern is with the Gabriel cath- wants it removed. Denies chest pain. SOB at baseline. Does have some lower extremity edema. No orthopnea or PND. No palpitations or lightheadedness. Review of Systems Review of Systems: All systems reviewed & are unremarkable except as noted in HPI & below Physical Exam Constitutional: WD/WN, vitals as above no acute distress Neck: normal visual inspection and trachea midline Respiratory: normal respiratory effort Auscultation: + rales and + wheezes; no rhonchi Cardiovascular: Rate/Rhythm: regular rate and + irregularly irregular Heart Sounds: normal S1, normal S2 and + murmur (Systolic murmur) Vessels: no JVD Extremities: + edema (+ 2 Bilateral lower extremity edema to the knees) Gastrointestinal (Abdomen): normal bowel sounds, soft, nontender, no hepatosplenomegaly Skin: no rashes, warm and dry Neurologic: PERRL, EOMI, accommodation nl, no face palsy, no dysarthria Psychiatric: A+Ox3, euthymic affect Results & Data Vital Signs (Past 12 Hours) Vital Signs Temp Pulse Pulse Resp BP Pulse Ox O2 Del Method 04/01/24 23:36 36.5 C 83 19 111/56 L 95 Room Air 04/01/24 22:00 75 04/01/24 20:45 Room Air 04/01/24 19:42 36.7 C 85 18 124/56 L 94 Room Air Laboratory Results Coagulation 04/02/24 Range/Units 05:52 PT 23.4 H (9.0-12.0) Seconds CBC 04/02/24 Range/Units 05:52 WBC 2.81 L (4.8-10.8) K/ul RBC 3.15 L (4.70-6.10) M/uL Hgb 8.5 L (14.0-18.0) g/dl Hct 29.0 L (42.0-52.0) % Plt Count 87 L (130-400) K/uL Comprehensive Metabolic Panel 04/02/24 Range/Units 05:52 Sodium 136 (136-145) mmol/L Potassium 4.1 (3.5-5.1) mmol/L Chloride 107 (98-107) mmol/L Carbon Dioxide 21 (21-32) mmol/L BUN 44 H (6-23) mg/dl Creatinine 1.44 H (0.6-1.4) mg/dl Glucose 99 (70-99(Fasting)) mg/dl Calcium 8.0 L (8.6-10.3) mg/dl Intake and Output 04/01/24 04/02/24 04/02/24 22:59 06:59 14:59 Intake Total 175 / 1785 250 / 1785 Output Total 400 / 1075 225 / 1075 Balance - / 710 Intake: IV 50 / 1050 cefTRIAXone SODIUM 2,000 mg In 50 / 50 50 ml @ 100 mls/hr IV Q24H [facility] Rx#:[id number] Oral 125 / 735 250 / 735 Output: Urine Amount (Catheter) 400 / 1075 225 / 1075 Gabriel/Indwelling 400 / 1075 225 / 1075 Other: Weight 67.2 kg Weight Measurement Method Built in [facility]
--- NOTE | 2024-04-02 08:19 | Hospitalist Progress Note ---
Date of Service April 02, 2024 Assessment & Plan (1) Epididymitis: Plan: Assessment & Plan (1) Acute metabolic encephalopathy: (2) Acute decompensated heart failure: (3) Status post aortic valve replacement: (4) Status post mitral valve repair: (5) Atrial fibrillation: (6) Pacemaker: (7) Acute kidney injury superimposed on CKD: (8) Testicular discomfort: (9) Spermatocele of epididymis, single: (10) Nocturnal hypoxemia: Plan per previous hospitalist notes with addendum: This is a 89yo M with a PMH of atrial fibrillation on coumadin, pulm HTN, dyslipidemia, hypothyroidism, asthma, asbestos history with restrictive lung disease, HFpEF, history of bladder cancer BPH, CKD III, h/o aortic valve replacement, insomnia with Ambien use and other medical problems listed below who was brought in by for worsening confusion. History obtained per chart review and at bedside due to patient's altered status. Acute metabolic encephalopathy In setting of ? infection vs orchitis prophylaxis recently on doxy and switched to Macrobid yesterday, possible gastroenteritis with diarrhea overnight Continue empiric abx coverage with Rocephin for now, follow blood culture Delirium precautions 04/02 back to baseline mental status Diarrhea In setting of Macrobid vs gastroenteritis Stool culture pending Transitioned to Rocephin Supportive care 04/02 Stool PCR panel: positive for norovirus Resolved Orchitis Urine culture: pending blood culture: pending Scrotal US: (+) edema, no fluid collection Improving on Ceftriaone IV Urologist consulted Acute on chronic diastolic congestive heart failure S/p aortic Valve replacement, Bovine valve Hx of mitral valve repair Noted to be in decompensated HF during January admission in setting of viral illness, cardiology helpful with diuresis recs given medically complex noting BLE edema x 2 weeks, did complete 5 days of 40mg PO Lasix starting 03/[address] Rainey, has since resumed "lax" 3x/week lasix 40mg PRN dosing, per * 2D ECHO from January 2024: Left ventricle is normal in size. Moderate concentric LVH. Apical wall motion abnormality may reflect pacemaker activation. Flattened septum is consistent with RV pressure overload. EF 55 to 60%. Bioprosthetic aortic valve. Gradient is normal for prosthetic aortic valve. Annuloplasty ring and prior mitral valve repair is present with thickening of the mitral valve leaflets. Moderate mitral stenosis is present. Mild mitral and tricuspid regurgitation. Right ventricular systolic pressure is elevated to be 50 to 60 mmHgSaturating at 95% on room air, BNP 1792 CXR today with cardiomegaly and cardiac pacemaker with evidence of congestive failure. Bilateral airspace opacities likely represent pulmonary edema. Correlate clinically Routine cards consult placed Hold spironolactone. Did not give IV lasix in ED due to HOLLY, GI losses Gabriel placed for accurate I&Os, daily weights 04/01 Cardiology service consulted minimal pulmonary edema CT chest 1. Cardiomegaly with evidence of pulmonary arterial hypertension. 2. Mild pulmonary edema with small pleural effusions and anasarca. 3. Mild dependent subsegmental atelectasis. 4. 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 hold Lasix for now in light of crea elevation monitor closely appreciate Cardiology service recommendations 04/02 Lasix p.o. ordered Monitor closely HOLLY superimposed on CKD Cr 1.7 today in setting of GI losses, Macrobid Baseline Cr ~ 1.2-1.4 crea 1.4--> 1.7 --> 1.5--> 1.4 Persistent atrial fibrillation Supratherapeutic INR INR 4.3 ---> 3.3--> 2.3 no signs of bleeding monitor Chronic Anemia receives procrit weekly per Hg 9.5--> 8.4--> 8.5 monitor Hg Moderate persistent asthma COPD Nocturnal Hypoxemia Denies recent resp issues or URI Continue home inhalers, baseline 2L HS Hx Tachy/Pb Syndrome s/p Pacemaker HTN HLD Continue spironolactone, rosuvastatin Continue Coumadin Needs follow-up with Coumadin clinic on discharge Tobacco use disorder Counseled to quit chewing tobacco Adding nicotine patch Chronic Osteoarthritis Continue daily 5mg Prednisone, follows with rheum Hypothyroidism Continue levothyroxine 125 mcg daily BPH Continue flomax 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 Louis and Urology, Dr. Borges consulted as above RLS Plan to hold home Ambien for now given lethargic status, resume as appropriate DVT Ppx: resume coumadin Code status: FULL PCP: Richar Dispo: lives at home PT/OT eval Admission and Anticipated Discharge Date Admission Date: March 31, 2024 Subjective Follow-up for orchitis, etc. Seen resting in bed side chair, comfortable, good spirits States he feels improved today Less dysuria, scrotal discomfort no chest pain, dyspnea, palpitations, dizziness No fevers or chills No other new symptoms Review of Systems Review of Systems: all noted and negative except for above Physical Exam Physical Exam: General- oriented x 3, not in distress, speaks in sentences with no effort or accessory muscle use Eyes- anicteric Neck- no JVD Lungs- clear breath sounds bilaterally, no crackles or wheezes Heart- normal rate, regular rhythm; no murmurs Abdomen- normal bowel sounds, nondistended, soft, nontender Mild scrotal edema Gabriel catheter in place Extremities-grade 1 lower extreme edema, no calf tenderness Neuro- alert, oriented x 3; no gross focal neurologic deficits Skin- warm & dry Results & Data Results & Data Vital Signs (Past 12 Hours) Vital Signs Temp Pulse Pulse Resp BP Pulse Ox O2 Del Method 04/02/24 07:22 36.7 C 91 H 17 108/67 96 Room Air 04/01/24 23:36 36.5 C 83 19 111/56 L 95 Room Air 04/01/24 22:00 75 04/01/24 20:45 Room Air all noted and reviewed including below
--- NOTE | 2024-04-02 10:59 | Urology Progress Note ---
Date of Service April 02, 2024 Assessment & Plan (1) Acute metabolic encephalopathy: (2) Epididymitis: Plan 89-year-old male with a hx of bladder cancer admitted with acute metabolic encephalopathy and concern for epididymitis Afebrile and hemodynamically stable Labs show a WBC of 2.81, hemoglobin 8.5, creatinine downtrending to 1.44. Continue to trend. Urine culture 03/19 was negative Blood cultures preliminary no growth x 24 hours Gabriel intact and draining appropriatelyurine is orange colored. Follow-up scrotal ultrasound 04/01 shows scrotal wall edema redemonstrated, no fluid collections, no testicular torsion or mass. No acute urological intervention warranted Continue supportive care and antibiotic therapy Continue Flomax Maintain Gabriel catheter for now while treating infection and until creatinine returns to normal. Depending on clinical course, can consider void trial prior to discharge. Hx of bladder ca. Continues with surveillance cysto every 6mo. Last cysto 02/2024 with no masses tumors lesions or other areas concern within the bladder. 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 Will arrange outpatient follow-up with our service for continued care and voiding trial if needed. Urology will follow peripherally. Please call with any questions, concerns, or changes in patient status. Admission and Anticipated Discharge Date Admission Date: March 31, 2024 Subjective Patient seen at bedside this AM Awake, sitting in bedside chair on arrival No acute distress Gabriel draining orange colored urine Having discomfort/dysuria with catheter, was given dose of Pyridium No hematuria No fevers Reports improvement in scrotal/testicular discomfort and swelling Review of Systems Constitutional: as per Subjective / HPI Genitourinary: + as per Subjective / HPI Physical Exam Constitutional: no acute distress Respiratory: no respiratory distress and no labored breathing Neurologic: moves all extremities and awake Psychiatric: Orientation: alert, oriented to person and cooperative Genitourinary: Gabriel intact, draining orange colored urine. Pt reports he is circumcised. There is mild penile edema. Mild bilateral scrotal swelling with no erythema, eschar, or open areas of drainage. No fluctuance or crepitus. No tenderness with palpation. Results & Data Vital Signs (Past 12 Hours) Vital Signs Temp Pulse Resp BP Pulse Ox O2 Del Method 04/02/24 07:22 36.7 C 91 H 17 108/67 96 Room Air 04/01/24 23:36 36.5 C 83 19 111/56 L 95 Room Air PG Care Time/CCT Total # of Minutes Spent Total Time Spent with Patient: Total time spent is greater than 50% in coordination of care (as documented) at patient's floor/unit and/or counseling patient: Coding Level of Care Code 97121 SUB INP/OBS CARE 2/35MIN Diagnoses Acute metabolic encephalopathy G93.41 Epididymitis N45.1
[2024-04-02] MEDS: FUROSEMIDE 20 MG TAB PO SCH (11:46)
[2024-04-02] MEDS: EPOETIN ALFA 40,000 UNITS/ML VIAL SQ ONE (12:36)
[2024-04-02] MEDS: ADVANCED PROBIOTIC 625 MG CAPSULE PO SCH (18:31)
[2024-04-02] MEDS: SODIUM CHLORIDE 0.65% NA SOLN 45 ML (OCEAN) ONE (18:32)
[2024-04-02] MEDS: WARFARIN SOD 2.5 MG TAB PO ONE (20:13)
[2024-04-02] MEDS: MELATONIN 3 MG TAB PO PRN (22:13)
[2024-04-02] MEDS: MELATONIN 3 MG TAB PO ONE (22:13)
[2024-04-03] MEDS: PHENAZOPYRIDINE HCL 100 MG TAB PO PRN (00:03)
[2024-04-03] MEDS: OLANZapine 10 MG/2.1 ML SDV IM PRN ×2 (00:35→10:40)
[2024-04-03] MEDS: OLANZapine 10 MG/2.1 ML SDV IM STA (01:30)
[2024-04-03] MEDS: ZIPRASIDONE 20 MG/ML SDV IM STA (02:30)
[2024-04-03] MEDS: LEVALBUTEROL 1.25 MG/3 ML NEB NEB STA (02:47)
[2024-04-03] MEDS: IPRATROPIUM BROMIDE NEB SOLN 0.02% 0.5MG/2.5ML VIAL INH STA (02:47)
[2024-04-03] MEDS: FUROSEMIDE INJ 20 MG/2 ML VIAL IV ONE (02:54)
--- NOTE | 2024-04-03 04:23 | Communication Note ---
Date of Service: April 03, 2024 Heme positive stool noted in a.m. as per RN. Stool not grossly bloody/black. AP Occult GI bleed A.m. labs now Continue to hold Coumadin
[2024-04-03 04:47] LABS: Basophils # (auto) 0.01 K/uL (0.00-0.20); Basophils % (auto) 0.3 %; Eosinophils # (auto) 0.01 K/uL (0.00-0.50); Eosinophils % (auto) 0.3 %; Hematocrit (blood only) 31.5 % (42.0-52.0); Hemoglobin 9.3 g/dl (14.0-18.0); Immature Granulocytes # (auto) 0.03 K/uL (0.01-0.20); Lymphocytes # (auto) 0.28 K/uL (1.20-3.40); Mean Corpuscular Hgb Conc 29.5 g/dL (32.0-36.0); Mean Corpuscular Volume 91.3 fL (80.0-100.0); Mean Platelet Volume 12.2 fL (9.4-12.4); Monocytes # (auto) 0.38 K/uL (0.11-0.59); Monocytes % (auto) 12.3 %; Neutrophils # (auto) 2.39 K/uL (1.40-6.50); Neutrophils % (auto) 77.1 %; Platelet Count 111 K/uL (130-400); RDW Standard Deviation 50.5 fL (36.4-46.3); Red Blood Count 3.45 M/uL (4.70-6.10)
[2024-04-03 05:05] LABS: BUN Creatinine Ratio 26.1 (10-20); Calcium 8.3 mg/dl (8.6-10.3); Creatinine Clr Calc Pharmacy 31.9 ml/min; Est GFR (African American) 51.1 ml/min; Est GFR (Non-African American) 44.1 ml/min; Magnesium 1.8 mg/dl (1.7-2.4); Potassium 3.6 mmol/L (3.5-5.1)
[2024-04-03 05:29] LABS: INR 1.7 (0.9-1.1); Prothrombin Time 17.5 Seconds (9.0-12.0)
--- NOTE | 2024-04-03 07:44 | Cardiology Progress Note ---
Date of Service April 03, 2024 Assessment & Plan (1) Acute metabolic encephalopathy: (2) Acute on chronic diastolic CHF (congestive heart failure): (3) Persistent atrial fibrillation: (4) Tachy-kurt syndrome: (5) Pacemaker: Plan IMPRESSION: Medically complex 89-year-old male presenting with acute altered mental status and fluid retention. Symptomatic improvement since Gabriel catheter has been placed. Lasix and spironolactone held on admission. PLAN: Acute metabolic encephalopathy: Metabolic encephalopathy in the setting of possible infection versus orchitis. Symptomatic improvement with the placement of Gabriel catheter and urine drainage Will defer to primary service and urology regarding antibiotic recommendations. Urine culture pending. Acute on chronic diastolic CHF: Patient appears to have worsening lower extremity edema this am. Chronic dyspnea. -Restart low dose Lasix 20 mg daily (home dose normally 40 mg daily) -Strict I&O. 2g sodium diet. -Monitor renal function. K goal of 4.0 and mag goal of 2.0- replace as needed -Given underlying diastolic heart failure and mitral stenosis recommend maintaining a hemoglobin greater than 10. 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 INR goal between [address] Meredith. Further recommendations pending assessment. I spent a total of 30 minutes on the date of service in preparation, delivery, and documentation of the care provided to the patient excluding any time spent in the performance of separately billed services. JASON Baires Department of Cardiology, [facility] This chart was completed in part utilizing Speech Voice Recognition Software. Grammatical errors, random word insertions, pronoun errors, and incomplete sentences are an occasional consequence of this system due to software limitations, ambient noise, and hardware issues. Any formal questions or concerns about the content, text, or information contained within the body of this dictation should be directly addressed to the provider for clarification. Admission and Anticipated Discharge Date Admission Date: March 31, 2024 Subjective Medically complex 89-year-old male presenting with acute altered mental status and fluid retention. Symptomatic improvement since Gabriel catheter has been placed. Lasix and spironolactone currently on hold. Improvement in renal function with the use of IV fluids and Gabriel catheter drainage. 04/02/2024: Restarted on oral Lasix 20 mg daily. Appears that he was given an additional 20 mg IV at 0200 (04/03). 04/03/2024: Telemetry: AFIB with PVCs 70-80s I/O: -900 mL Weight: 68.5 kg >> 66.5 kg >> 67.2 kg >> 64.3 kg Labs: Ongoing anemia with a hemoglobin of 9.5, chronic anemia (9-10). INR 2.3. Improvement in scr from 1.7>>1.5>>1.42. K 3.6 Upon entrance into the room patient sitting up in the chair doing a puzzle. Main concern is with the Gabriel cath- wants it removed. Denies chest pain. SOB at baseline. Does have some lower extremity edema. No orthopnea or PND. No palpitations or lightheadedness. Physical Exam Constitutional: WD/WN, vitals as above no acute distress Neck: normal visual inspection and trachea midline Respiratory: normal respiratory effort Auscultation: + rales and + wheezes; no rhonchi Cardiovascular: Rate/Rhythm: regular rate and + irregularly irregular Heart Sounds: normal S1, normal S2 and + murmur (Systolic murmur) Vessels: no JVD Extremities: + edema (+ 2 Bilateral lower extremity edema to the knees) Gastrointestinal (Abdomen): normal bowel sounds, soft, nontender, no hepatosplenomegaly Skin: no rashes, warm and dry Neurologic: PERRL, EOMI, accommodation nl, no face palsy, no dysarthria Psychiatric: A+Ox3, euthymic affect Results & Data Vital Signs (Past 12 Hours) Vital Signs Temp Pulse Pulse Resp BP Pulse Ox O2 Del Method 04/03/24 02:49 117 H 16 98 Room Air 04/03/24 02:45 88 04/03/24 01:45 36.6 C 110 H 24 116/68 93 Room Air 04/02/24 21:00 Room Air 04/02/24 20:14 36.5 C 86 18 118/53 L 98 Room Air
--- NOTE | 2024-04-03 08:01 | XRay Report ---
SINGLE VIEW CHEST CLINICAL HISTORY: Dyspnea. FINDINGS: An AP, portable, supine chest radiograph is compared to study dated 03/31/2024. Correlation is made with chest CT dated 04/01/2024. The examination is degraded by portable technique and patient rotation. The patient is status post midline sternotomy and cardiac valve surgery. A single-lead car diac pacemaker and a right internal jugular central venous infusion port are unchanged in position. T he heart is enlarged noting atherosclerotic calcification of the thoracic aorta. There is pulmonary v ascular congestion. Bilateral airspace opacities likely represent interstitial edema. Small pleural e ffusions are suspected. Calcified pleural plaques are unchanged. No pneumothorax is seen. The skeleta l structures are osteopenic. There are chronic/healed right-sided rib fractures. Degenerative change is noted in the shoulders and spine. IMPRESSION: 1. Cardiomegaly and cardiac pacemaker with evidence of congestive failure. This is modestly improved from 03/31/2024. 2. Bilateral airspace opacities likely represent pulmonary edema. Correlate clinically. 3. Suspect small pleural effusions. ACT 112: Negative or not required by law. Electronically signed by: Caleb Sams M.D. 04/03/2024 8:00 AM
[2024-04-03] MEDS: POTASSIUM CHLORIDE CRTAB 20 MEQ TABCR PO SCH (09:15)
--- NOTE | 2024-04-03 09:20 | Gastrointestinal Consultation ---
Date of Consultation April 03, 2024 Assessment & Plan (1) Heme positive stool: (2) Anemia: Plan Patient admitted with confusion. unable to obtain history from patient and he was combative this morning when I attempted to perform a physical exam. GI consulted for heme positive stools and anemia. Per nursing, no signs of active bleeding and hgb is actually improved from yesterday. In light of his other current issues and no signs of active bleeding, no plans for any invasive GI work up at this time. - monitor hgb/hct and transfuse as needed. - continue with protonix 40mg po BID. Supervising Physician Co-Signing Physician Notes Agree with ALEXA Reyna as above Patient confused, examined patient and discussed with family at bedside and agree with above Abd: Soft, NT, ND, +BS Continue current therapy and supportive care No plans for invasive GI workup at this time History of Present Illness Reason for Consultation: anemia, fecal occult blood testing positive Requesting Physician: Naren Zepeda MD Attending Physician: Naren Zepeda MD History of Present Illness Patient is an 89 year old male with a past medical history of atrial fibrillation on coumadin, pulm HTN, dyslipidemia, hypothyroidism, asthma, asbestos history with restrictive lung disease, HFpEF, history of bladder cancer BPH, CKD III, h/o aortic valve replacement, and insomnia who came to the ED on 03/31/24 for confusion. Patient is still very confused and does not answer questions appropriately. History obtained from nursing and the chart. Patient currently admitted with metabolic encephalopathy, heart failure, HOLLY on CKD, amongst other issues. During his stay his stools did test Hemoccult positive and GI was consulted for this in light of his anemia. His hgb 04/03 is 9.3 which is an improvement from previous labs 04/02 was 8.5. Per nursing, no signs of active GI bleeding. no other reported GI concerns. Allergies Allergy/AdvReac Type Severity Reaction Status Date / Time Penicillins Allergy Intermediate RASH/EL-ORBITAL Verified 03/31/24 14:27 EDEMA olanzapine [From Zyprexa] AdvReac Severe Agitated Verified 04/03/24 13:51 Home Medications Medication Instructions Recorded Confirmed Type albuterol sulfate 90 mcg/actuation 2 puff inhalation Q4 PRN Wheezing 03/25/19 03/31/24 History aerosol inhaler coenzyme Q10 100 mg capsule 100 mg PO QAM 03/25/19 03/31/24 History (CoQ-10) esomeprazole magnesium 40 mg 40 mg PO BID 03/25/19 03/31/24 History capsule,delayed release (Nexium) polyethylene glycol 3350 17 gram 17 g PO QAM 03/25/19 03/31/24 History oral powder packet (Miralax) prednisone 5 mg tablet 5 mg PO QAM 03/25/19 03/31/24 History rosuvastatin 10 mg tablet (Crestor) 10 mg PO QPM 03/25/19 03/31/24 History warfarin 5 mg tablet 2.5 mg PO 6XWK 03/25/19 03/31/24 History ferrous sulfate 325 mg (65 mg 325 mg PO QAM 04/25/21 03/31/24 History iron) tablet furosemide 40 mg tablet 40 mg PO DAILY PRN Weight Gain 01/23/24 03/31/24 History levothyroxine 125 mcg tablet 125 mcg PO QAM 01/23/24 03/31/24 History spironolactone 25 mg tablet 12.5 mg PO QAM 01/23/24 03/31/24 History tamsulosin 0.4 mg capsule 0.4 mg PO HS freqency 01/23/24 03/31/24 History tiotropium bromide 2.5 2 puff inhalation DAILY 01/23/24 03/31/24 History mcg/actuation mist for inhalation (Spiriva Respimat) zolpidem 5 mg tablet 5 mg PO HS PRN restless leg 01/23/24 03/31/24 History syndrome nitrofurantoin 100 mg PO Q12H 7 days #14 caps 03/30/24 03/31/24 Rx monohydrate/macrocrystals 100 mg capsule (Macrobid) cholecalciferol (vitamin D3) 25 25 mcg PO QAM 03/31/24 03/31/24 History mcg (1,000 unit) tablet (Vitamin D3) cyanocobalamin (vitamin B-12) 1,000 mcg PO DAILY 03/31/24 03/31/24 History 1,000 mcg tablet (Vitamin B-12) ipratropium 0.5 mg-albuterol 3 mg 3 ml inhalation Q6H PRN Wheezing 03/31/24 03/31/24 History (2.5 mg base)/3 mL nebulization soln magnesium 250 mg tablet 250 mg PO DAILY 03/31/24 03/31/24 History Patient History Medical History Bladder cancer dx 05/2021; TURBT, chemo + radiation Bladder tumor History of basal cell carcinoma History of rectal fissure History of COVID-19 DX'D 10/2020 [facility]RU [facility]-SOB, PRODUCTIVE COUGH, BODY ACHES, FEVER-RECOVERED AT HOME-SYMPTOMS RESOLVED SOB (shortness of breath) on exertion Arthritis Anticoagulated on Coumadin Heart disease Prostatitis Stark's esophagus GERD (gastroesophageal reflux disease) History of pulmonary embolism FOLLOWING SHOULDER SURGERY APPROX 5 YEARS -NO ISSUES SINCE Pacemaker TACHY-KURT SYNDROME. ALSO HX OF A-FIB. LAST CHECKED 11/2021 - [facility] Tachy-kurt syndrome History of atrial flutter Restless legs syndrome Dyslipidemia Carotid artery disease Spinal stenosis of lumbar region History of paroxysmal supraventricular tachycardia BPH (benign prostatic hypertrophy) Diverticular disease of colon COPD (chronic obstructive pulmonary disease) Hypertension Surgical History History of bladder surgery TURBT 05/29/2021 [facility] History of esophagogastroduodenoscopy (EGD) MULTIPLE History of tonsillectomy History of total knee replacement LEFT KNEE History of herniorrhaphy History of surgery MOHS PROCEDURE ON FACE History of colonoscopy History of bowel resection S/T DIVERTICULITIS History of arthroscopy B/L SHOULDERS History of cardiovascular surgery MITRAL VALVE REPAIR-[facility] [place] 2003 History of heart valve replacement AORTIC VALVE REPLACEMENT (TISSUE)-[facility] [place] 2003 Status post inguinal hernia repair Status post cataract extraction Family History Brother Diabetes Cancer Esophageal Cancer Mother Colorectal cancer Lung cancer Social History Smoking Status: Unknown if ever smoked Tobacco Type: Smokeless Tobacco (Dip or Chew) Cigarettes Per Day: 0; Second Hand Exposure: No; Do You Dip or Chew Tobacco: Yes (1 can every 3-4 days); Hx Alcohol Use: No Hx Substance Use: No Preferred Language: Mongolian Communication Ability: Effective Gin Feeder Required: No Beliefs That Will Affect Care: None marital status: Current Living Situation: Spouse current occupational status: retired Feels Safe at Home: Yes Safety Concerns: Feels Safe At This Time Diet: regular caffeine: No during the past year weight has: remained stable Physical Activity Frequency: Other Physical Activity Frequency Comment: "Does alot of yard work" Assistive Devices: Oxygen - at Night Review of Systems Review of Systems: Unobtainable due to cognitive status Physical Exam Physical Exam: Patient declined further Physical exam. he became combative when I attempted to auscultate his heart. Constitutional: WD/WN, vitals as above Respiratory: normal respiratory effort Psychiatric: Orientation: alert Results & Data Vital Signs (Past 12 Hours) Vital Signs Temp Pulse Pulse Resp BP Pulse Ox O2 Del Method 04/03/24 08:00 97.6 F 118 H 18 111/70 95 Room Air 04/03/24 08:00 98 H 04/03/24 02:49 117 H 16 98 Room Air 04/03/24 02:45 88 04/03/24 01:45 97.9 F 110 H 24 116/68 93 Room Air Coding Level of Care Code 84130 INT INP/OBS CARE 2/55MIN Diagnoses Heme positive stool R19.5 Anemia D64.9
[2024-04-03] MEDS: FUROSEMIDE 40 MG TAB PO SCH (10:40)
[2024-04-03] MEDS: LORazepam 0.5 MG in SYRINGE 0.25 ML IV STA (14:02)
[2024-04-03] MEDS: LORazepam 0.25 MG in SYRINGE 0.125 ML IV STA (14:56)
--- NOTE | 2024-04-03 19:53 | Hospitalist Progress Note ---
Date of Service April 03, 2024 Assessment & Plan (1) Epididymitis: Plan: Assessment & Plan (1) Acute metabolic encephalopathy: (2) Acute decompensated heart failure: (3) Status post aortic valve replacement: (4) Status post mitral valve repair: (5) Atrial fibrillation: (6) Pacemaker: (7) Acute kidney injury superimposed on CKD: (8) Testicular discomfort: (9) Spermatocele of epididymis, single: (10) Nocturnal hypoxemia: Plan per previous hospitalist notes with addendum: This is a 89yo M with a PMH of atrial fibrillation on coumadin, pulm HTN, dyslipidemia, hypothyroidism, asthma, asbestos history with restrictive lung disease, HFpEF, history of bladder cancer BPH, CKD III, h/o aortic valve replacement, insomnia with Ambien use and other medical problems listed below who was brought in by for worsening confusion. History obtained per chart review and at bedside due to patient's altered status. Acute metabolic encephalopathy In setting of ? infection vs orchitis prophylaxis recently on doxy and switched to Macrobid yesterday, possible gastroenteritis with diarrhea overnight Continue empiric abx coverage with Rocephin for now, follow blood culture Delirium precautions 04/02 back to baseline mental status 04/03 Positive delirium Resume Zyprexa x 2 doses Discussed with patient's Will trial Ativan 0.25 mg so patient can rest and hopefully will help with mental status Diarrhea In setting of Macrobid vs gastroenteritis Stool culture pending Transitioned to Rocephin Supportive care 04/03 Stool PCR panel: positive for norovirus Resolved Orchitis Urine culture: pending blood culture: pending Scrotal US: (+) edema, no fluid collection Improving on Ceftriaxone IV Urologist consulted Acute on chronic diastolic congestive heart failure S/p aortic Valve replacement, Bovine valve Hx of mitral valve repair Noted to be in decompensated HF during January admission in setting of viral illness, cardiology helpful with diuresis recs given medically complex noting BLE edema x 2 weeks, did complete 5 days of 40mg PO Lasix starting 03/[address] Rainey, has since resumed "lax" 3x/week lasix 40mg PRN dosing, per * 2D ECHO from January 2024: Left ventricle is normal in size. Moderate concentric LVH. Apical wall motion abnormality may reflect pacemaker activation. Flattened septum is consistent with RV pressure overload. EF 55 to 60%. Bioprosthetic aortic valve. Gradient is normal for prosthetic aortic valve. Annuloplasty ring and prior mitral valve repair is present with thickening of the mitral valve leaflets. Moderate mitral stenosis is present. Mild mitral and tricuspid regurgitation. Right ventricular systolic pressure is elevated to be 50 to 60 mmHgSaturating at 95% on room air, BNP 1792 CXR today with cardiomegaly and cardiac pacemaker with evidence of congestive failure. Bilateral airspace opacities likely represent pulmonary edema. Correlate clinically Routine cards consult placed Hold spironolactone. Did not give IV lasix in ED due to HOLLY, GI losses Gabriel placed for accurate I&Os, daily weights 04/01 Cardiology service consulted minimal pulmonary edema CT chest 1. Cardiomegaly with evidence of pulmonary arterial hypertension. 2. Mild pulmonary edema with small pleural effusions and anasarca. 3. Mild dependent subsegmental atelectasis. 4. 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 hold Lasix for now in light of crea elevation monitor closely appreciate Cardiology service recommendations 04/03 Lasix p.o. ordered Monitor closely HOLLY superimposed on CKD Cr 1.7 today in setting of GI losses, Macrobid Baseline Cr ~ 1.2-1.4 crea 1.4--> 1.7 --> 1.5--> 1.4 Possible GI bleed GI consulted Does not recommend EGD at this point Continue Protonix Monitor closely Persistent atrial fibrillation Supratherapeutic INR INR 4.3 ---> 3.3--> 2.3 no signs of bleeding monitor Hold Coumadin in light of possible GI bleed Chronic Anemia receives procrit weekly per Hg 9.5--> 8.4--> 8.5--> 9.3 monitor Hg Moderate persistent asthma COPD Nocturnal Hypoxemia Denies recent resp issues or URI Continue home inhalers, baseline 2L HS Hx Tachy/Pb Syndrome s/p Pacemaker HTN HLD Continue spironolactone, rosuvastatin Continue Coumadin Needs follow-up with Coumadin clinic on discharge Tobacco use disorder Counseled to quit chewing tobacco Adding nicotine patch Chronic Osteoarthritis Continue daily 5mg Prednisone, follows with rheum Hypothyroidism Continue levothyroxine 125 mcg daily BPH Continue flomax 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 Louis and Urology, Dr. Borges consulted as above RLS Plan to hold home Ambien for now given lethargic status, resume as appropriate DVT Ppx: resume coumadin Code status: FULL PCP: Richar Dispo: lives at home PT/OT eval Admission and Anticipated Discharge Date Admission Date: March 31, 2024 Subjective Follow-up for orchitis, etc. Events overnight noted Seen at the bedside with patient's visiting Patient is awake and alert, but confused States he feels okay overall Denies pain Denies shortness of breath, chest pain No other new symptom Review of Systems Review of Systems: all noted and negative except for above Physical Exam Physical Exam: General- oriented x 0-1, not in distress, speaks in sentences with no effort or accessory muscle use Eyes- anicteric Neck- no JVD Lungs- clear breath sounds bilaterally, No crackles or wheezes Heart- normal rate, regular rhythm; no murmurs Abdomen- normal bowel sounds, nondistended, soft, No tenderness Extremities- no pretibial edema, no calf tenderness Neuro- alert, oriented x 0-1; no gross focal neurologic deficits Skin- warm & dry Results & Data Results & Data Vital Signs (Past 12 Hours) Vital Signs Temp Pulse Pulse Resp BP Pulse Ox O2 Del Method 04/03/24 17:05 88 04/03/24 15:23 36.7 C 104 H 18 106/68 96 Room Air 04/03/24 10:55 36.6 C 113 H 20 98/64 L 94 Room Air 04/03/24 08:00 36.4 C 118 H 18 111/70 95 Room Air 04/03/24 08:00 98 H all noted and reviewed including below
[2024-04-03] MEDS ORDERED: LORazepam 0.25 MG in SYRINGE 0.125 ML IV PRN (20:10)
[2024-04-03] MEDS: PANTOprazole 40 MG in SYRINGE 0 ML IV SCH (23:27)
[2024-04-04 07:03] LABS: Basophils # (auto) 0.04 K/uL (0.00-0.20); Eosinophils # (auto) 0.14 K/uL (0.00-0.50); Eosinophils % (auto) 3.6 %; Hematocrit (blood only) 31.9 % (42.0-52.0); Hemoglobin 9.6 g/dl (14.0-18.0); Immature Granulocytes # (auto) 0.06 K/uL (0.01-0.20); Immature Granulocytes % (auto) 1.6 %; Mean Corpuscular Hemoglobin 27.4 pg (25.0-34.0); Mean Corpuscular Hgb Conc 30.1 g/dL (32.0-36.0); Mean Corpuscular Volume 91.1 fL (80.0-100.0); Monocytes # (auto) 0.57 K/uL (0.11-0.59); Monocytes % (auto) 14.8 %; Neutrophils # (auto) 2.53 K/uL (1.40-6.50); Platelet Count 109 K/uL (130-400); RDW Standard Deviation 50.4 fL (36.4-46.3); White Blood Count 3.84 K/ul (4.8-10.8)
[2024-04-04 07:15] LABS: INR 1.7 (0.9-1.1); Prothrombin Time 17.3 Seconds (9.0-12.0)
[2024-04-04 11:37] LABS: BUN Creatinine Ratio 21.1 (10-20); Calcium 8.4 mg/dl (8.6-10.3); Creatinine Clr Calc Pharmacy 30.6 ml/min; Est GFR (African American) 51.1 ml/min; Est GFR (Non-African American) 44.1 ml/min; Potassium 3.6 mmol/L (3.5-5.1)
[2024-04-04] MEDS: WARFARIN SOD 2.5 MG TAB PO ONE (15:56)
--- NOTE | 2024-04-04 17:45 | Hospitalist Progress Note ---
Date of Service April 04, 2024 Assessment & Plan (1) Epididymitis: Plan: Assessment & Plan (1) Acute metabolic encephalopathy: (2) Acute decompensated heart failure: (3) Status post aortic valve replacement: (4) Status post mitral valve repair: (5) Atrial fibrillation: (6) Pacemaker: (7) Acute kidney injury superimposed on CKD: (8) Testicular discomfort: (9) Spermatocele of epididymis, single: (10) Nocturnal hypoxemia: Plan per previous hospitalist notes with addendum: This is a 89yo M with a PMH of atrial fibrillation on coumadin, pulm HTN, dyslipidemia, hypothyroidism, asthma, asbestos history with restrictive lung disease, HFpEF, history of bladder cancer BPH, CKD III, h/o aortic valve replacement, insomnia with Ambien use and other medical problems listed below who was brought in by for worsening confusion. History obtained per chart review and at bedside due to patient's altered status. Acute metabolic encephalopathy In setting of ? infection vs orchitis prophylaxis recently on doxy and switched to Macrobid yesterday, possible gastroenteritis with diarrhea overnight Continue empiric abx coverage with Rocephin for now, follow blood culture Delirium precautions 04/02 back to baseline mental status 04/03 Positive delirium Resume Zyprexa x 2 doses Discussed with patient's Will trial Ativan 0.25 mg so patient can rest and hopefully will help with mental status 04/04 Delirium resolving Continue delirium prevention strategies Will resume usual Ambien half tablet at bedtime Discussed with patient's , she is agreeable with the plan Diarrhea In setting of Macrobid vs gastroenteritis Stool culture pending Transitioned to Rocephin Supportive care 04/04 Stool PCR panel: positive for norovirus Resolved Orchitis Urine culture: negative blood culture: negative Scrotal US: (+) edema, no fluid collection Continues to improve on Ceftriaxone IV Urologist consulted Remove Gabriel today Acute on chronic diastolic congestive heart failure S/p aortic Valve replacement, Bovine valve Hx of mitral valve repair Noted to be in decompensated HF during January admission in setting of viral illness, cardiology helpful with diuresis recs given medically complex noting BLE edema x 2 weeks, did complete 5 days of 40mg PO Lasix starting 03/[address] Rainey, has since resumed "lax" 3x/week lasix 40mg PRN dosing, per * 2D ECHO from January 2024: Left ventricle is normal in size. Moderate concentric LVH. Apical wall motion abnormality may reflect pacemaker activation. Flattened septum is consistent with RV pressure overload. EF 55 to 60%. Bioprosthetic aortic valve. Gradient is normal for prosthetic aortic valve. Annuloplasty ring and prior mitral valve repair is present with thickening of the mitral valve leaflets. Moderate mitral stenosis is present. Mild mitral and tricuspid regurgitation. Right ventricular systolic pressure is elevated to be 50 to 60 mmHgSaturating at 95% on room air, BNP 1792 CXR today with cardiomegaly and cardiac pacemaker with evidence of congestive failure. Bilateral airspace opacities likely represent pulmonary edema. Correlate clinically Routine cards consult placed Hold spironolactone. Did not give IV lasix in ED due to HOLLY, GI losses Gabriel placed for accurate I&Os, daily weights 04/01 Cardiology service consulted minimal pulmonary edema CT chest 1. Cardiomegaly with evidence of pulmonary arterial hypertension. 2. Mild pulmonary edema with small pleural effusions and anasarca. 3. Mild dependent subsegmental atelectasis. 4. 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 hold Lasix for now in light of crea elevation monitor closely appreciate Cardiology service recommendations 04/03 Lasix p.o. ordered Monitor closely 04/04 Euvolemic Resume Lasix 20 mg p.o. daily Monitor closely HOLLY superimposed on CKD Cr 1.7 today in setting of GI losses, Macrobid Baseline Cr ~ 1.2-1.4 crea 1.4--> 1.7 --> 1.5--> 1.4--> 1.4 Possible GI bleed GI consulted Does not recommend EGD at this point Continue Protonix Monitor closely hg Actually improved to 9.6 resume coumadin cautiously Persistent atrial fibrillation Supratherapeutic INR INR 4.3 ---> 3.3--> 2.3--1.7 no signs of bleeding monitor Resume Coumadin cautiously Chronic Anemia receives procrit weekly per Hg 9.5--> 8.4--> 8.5--> 9.3 monitor Hg Moderate persistent asthma COPD Nocturnal Hypoxemia Denies recent resp issues or URI Continue home inhalers, baseline 2L HS Hx Tachy/Pb Syndrome s/p Pacemaker HTN HLD Continue spironolactone, rosuvastatin Continue Coumadin Needs follow-up with Coumadin clinic on discharge Tobacco use disorder Counseled to quit chewing tobacco Adding nicotine patch Chronic Osteoarthritis Continue daily 5mg Prednisone, follows with rheum Hypothyroidism Continue levothyroxine 125 mcg daily BPH Continue flomax 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 Louis and Urology, Dr. Borges consulted as above RLS Continue Ambien DVT Ppx: resume coumadin Code status: FULL PCP: Richar Dispo: lives at home PT/OT eval plan of care discussed with patient's family at bedside in detail and at length all questions answered they are understanding, agreeable, comfortable with the plan of care Admission and Anticipated Discharge Date Admission Date: March 31, 2024 Subjective Follow-up for orchitis, etc. Seen resting in bedside chair, sitting up, awake and alert, more oriented, less confused States he feels fine overall Denies scrotal pain, dysuria No fevers or chills No other new symptoms Review of Systems Review of Systems: all noted and negative except for above Physical Exam Physical Exam: General- oriented x 1-2, not in distress, speaks in sentences with no effort or accessory muscle use Eyes- anicteric Neck- no JVD Lungs- clear breath sounds bilaterally, no rales/wheezes Heart- normal rate, regular rhythm; no murmurs Abdomen- normal bowel sounds, nondistended, soft, nontender Scrotum-no edema Positive mild pedal edema, but no erythema/warmth/tenderness Extremities- no pretibial edema, no calf tenderness Neuro- alert, oriented x 1-2; no gross focal neurologic deficits Skin- warm & dry Results & Data Results & Data Vital Signs (Past 12 Hours) Vital Signs Temp Pulse Pulse Resp BP Pulse Ox O2 Del Method 04/04/24 15:38 36.6 C 72 18 115/42 L 95 Room Air 04/04/24 14:49 71 04/04/24 11:31 36.6 C 78 17 104/47 L 97 Room Air 04/04/24 09:07 Room Air 04/04/24 08:10 76 04/04/24 07:37 36.3 C L 65 17 118/49 L 92 Room Air all noted and reviewed including below
[2024-04-04] MEDS: ZOLPIDEM TARTRATE 5 MG TAB PO PRN (22:02)
[2024-04-04] MEDS ORDERED: COUGH DROP (SUGAR FREE) LOZ 24 LOZ/1 BOX BUCCAL PRN (22:28)
[2024-04-05 05:01] LABS: Basophils # (auto) 0.05 K/uL (0.00-0.20); Eosinophils # (auto) 0.17 K/uL (0.00-0.50); Eosinophils % (auto) 3.4 %; Hematocrit (blood only) 32.8 % (42.0-52.0); Hemoglobin 9.7 g/dl (14.0-18.0); Immature Granulocytes # (auto) 0.05 K/uL (0.01-0.20); Lymphocytes # (auto) 0.74 K/uL (1.20-3.40); Lymphocytes % (auto) 14.6 %; Mean Corpuscular Hemoglobin 26.8 pg (25.0-34.0); Mean Corpuscular Hgb Conc 29.6 g/dL (32.0-36.0); Mean Corpuscular Volume 90.6 fL (80.0-100.0); Mean Platelet Volume 11.5 fL (9.4-12.4); Monocytes # (auto) 0.64 K/uL (0.11-0.59); Monocytes % (auto) 12.6 %; Neutrophils # (auto) 3.42 K/uL (1.40-6.50); Neutrophils % (auto) 67.4 %; Platelet Count 123 K/uL (130-400); RDW Coefficient of Variation 14.9 % (11.5-14.5); RDW Standard Deviation 49.5 fL (36.4-46.3); Red Blood Count 3.62 M/uL (4.70-6.10); White Blood Count 5.07 K/ul (4.8-10.8)
[2024-04-05 05:18] LABS: BUN Creatinine Ratio 22.2 (10-20); Calcium 8.7 mg/dl (8.6-10.3); Creatinine Clr Calc Pharmacy 26.9 ml/min; Est GFR (African American) 43.6 ml/min; Est GFR (Non-African American) 37.6 ml/min; Potassium 3.9 mmol/L (3.5-5.1)
[2024-04-05 05:27] LABS: INR 1.8 (0.9-1.1); Prothrombin Time 18.6 Seconds (9.0-12.0)
[2024-04-05 10:38] VITALS: BP 99/55; PULSE 73; RESP 17; TEMP 98.2; O2SAT 97
[2024-04-05] MEDS: FUROSEMIDE 20 MG TAB PO SCH (10:38)
--- NOTE | 2024-04-05 11:09 | Hospitalist Progress Note ---
Date of Service April 05, 2024 Assessment & Plan (1) Epididymitis: Plan: Assessment & Plan (1) Acute metabolic encephalopathy: (2) Acute decompensated heart failure: (3) Status post aortic valve replacement: (4) Status post mitral valve repair: (5) Atrial fibrillation: (6) Pacemaker: (7) Acute kidney injury superimposed on CKD: (8) Testicular discomfort: (9) Spermatocele of epididymis, single: (10) Nocturnal hypoxemia: Plan per previous hospitalist notes with addendum: This is a 89yo M with a PMH of atrial fibrillation on coumadin, pulm HTN, dyslipidemia, hypothyroidism, asthma, asbestos history with restrictive lung disease, HFpEF, history of bladder cancer BPH, CKD III, h/o aortic valve replacement, insomnia with Ambien use and other medical problems listed below who was brought in by for worsening confusion. History obtained per chart review and at bedside due to patient's altered status. Acute metabolic encephalopathy In setting of ? infection vs orchitis prophylaxis recently on doxy and switched to Macrobid yesterday, possible gastroenteritis with diarrhea overnight Continue empiric abx coverage with Rocephin for now, follow blood culture Delirium precautions 04/02 back to baseline mental status 04/03 Positive delirium Resume Zyprexa x 2 doses Discussed with patient's Will trial Ativan 0.25 mg so patient can rest and hopefully will help with mental status 04/04 Delirium resolving Continue delirium prevention strategies Will resume usual Ambien half tablet at bedtime Discussed with patient's , she is agreeable with the plan 04/05 resolved patient mostly back to baseline mental status patient ambulating in the room with no problems, back to baseline function as per she is agreeable for discharge to home today Diarrhea In setting of Macrobid vs gastroenteritis Stool culture pending Transitioned to Rocephin Supportive care 04/05 Stool PCR panel: positive for norovirus Resolved Orchitis Urine culture: negative blood culture: negative Scrotal US: (+) edema, no fluid collection scrotal edema, resolved no problems urinating Gabriel Cath removed given Ceftriaxone IV x 5 days Urologist consulted discharge on 5 more days of PO Cefdinir 300mg daily ff up with Urologist in 1 week Acute on chronic diastolic congestive heart failure S/p aortic Valve replacement, Bovine valve Hx of mitral valve repair Noted to be in decompensated HF during January admission in setting of viral illness, cardiology helpful with diuresis recs given medically complex noting BLE edema x 2 weeks, did complete 5 days of 40mg PO Lasix starting 03/[address] Rainey, has since resumed "lax" 3x/week lasix 40mg PRN dosing, per * 2D ECHO from January 2024: Left ventricle is normal in size. Moderate concentric LVH. Apical wall motion abnormality may reflect pacemaker activation. Flattened septum is consistent with RV pressure overload. EF 55 to 60%. Bioprosthetic aortic valve. Gradient is normal for prosthetic aortic valve. Annuloplasty ring and prior mitral valve repair is present with thickening of the mitral valve leaflets. Moderate mitral stenosis is present. Mild mitral and tricuspid regurgitation. Right ventricular systolic pressure is elevated to be 50 to 60 mmHgSaturating at 95% on room air, BNP 1791 CXR today with cardiomegaly and cardiac pacemaker with evidence of congestive failure. Bilateral airspace opacities likely represent pulmonary edema. Correlate clinically Routine cards consult placed Hold spironolactone. Did not give IV lasix in ED due to HOLLY, GI losses Gabriel placed for accurate I&Os, daily weights 04/01 Cardiology service consulted minimal pulmonary edema CT chest 1. Cardiomegaly with evidence of pulmonary arterial hypertension. 2. Mild pulmonary edema with small pleural effusions and anasarca. 3. Mild dependent subsegmental atelectasis. 4. 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 hold Lasix for now in light of crea elevation monitor closely appreciate Cardiology service recommendations 04/03 Lasix p.o. ordered Monitor closely 04/04 Euvolemic Resume Lasix 20 mg p.o. daily Monitor closely 04/05 Euvolemic resume usual Lasix 20mg po daily HOLLY superimposed on CKD Cr 1.7 today in setting of GI losses, Macrobid Baseline Cr ~ 1.2-1.4 crea 1.4--> 1.7 --> 1.5--> 1.4--> 1.4--> 1.6 back to baseline monitor as outpatient Possible GI bleed (+)FOBT otherwise no signs of overt GI bleed GI consulted Does not recommend EGD at this point placed on Protonix BID hg Actually improved to 9.6 resume coumadin monitor CBC closely Persistent atrial fibrillation Supratherapeutic INR INR 4.3 ---> 3.3--> 2.3--1.7-->1.8 no signs of bleeding monitor Resume Coumadin cautiously ff up with [facility] this week Chronic Anemia receives procrit weekly per Hg 9.5--> 8.4--> 8.5--> 9.3-> 9.7 monitor Hg Moderate persistent asthma COPD Nocturnal Hypoxemia Denies recent respiratory issues or URI Continue home inhalers, baseline 2L HS Hx Tachy/Pb Syndrome s/p Pacemaker HTN HLD Continue spironolactone, rosuvastatin Continue Coumadin Needs follow-up with Coumadin clinic on discharge Tobacco use disorder Counseled to quit chewing tobacco Adding nicotine patch Chronic Osteoarthritis Continue daily 5mg Prednisone, follows with rheum Hypothyroidism Continue levothyroxine 125 mcg daily BPH Continue flomax 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 Louis and Urology, Dr. Borges consulted as above RLS Continue Ambien DVT Ppx: resume coumadin Code status: FULL PCP: Richar Dispo:d/c home PCP in 1 week Cardiology this week Urology in 1 -2 wees plan of care discussed with patient and his at bedside in detail and at length all questions answered they are understanding, agreeable, comfortable with the plan of care Admission and Anticipated Discharge Date Admission Date: March 31, 2024 Subjective ff up for orchitis, etc seen resting in chair, comfortable in good spirits oriented x 2 answers most questions appropriately states he feels fine overall denies abdominal pain, scrotal pain, dysuria no chest pain, dyspnea, palpitations, dizziness no other new symptoms Review of Systems Review of Systems: all noted and negative except for above Physical Exam Physical Exam: General- oriented x 3, not in distress, speaks in sentences with no effort or accessory muscle use Eyes- anicteric Neck- no JVD Lungs- clear breath sounds bilaterally, no rales/wheezes Heart- normal rate, regular rhythm; no murmurs Abdomen- normal bowel sounds, nondistended, soft, nontender Genitalia- mild edema of the penile skin, no erythema/warmth/tenderness no scrotal edema Extremities- no pretibial edema, no calf tenderness Neuro- alert, oriented x 3; no gross focal neurologic deficits Skin- warm & dry Results & Data Results & Data Vital Signs (Past 12 Hours) Vital Signs Temp Pulse Pulse Resp BP Pulse Ox O2 Del Method 04/05/24 07:30 36.8 C 73 17 99/55 L 97 Room Air 04/05/24 07:25 Room Air 04/05/24 07:15 85 04/05/24 02:20 36.7 C 61 18 110/45 L 93 Room Air 04/04/24 23:09 Room Air all noted and reviewed including below
--- NOTE | 2024-04-05 11:32 | Discharge Summary ---
Discharge Summary Date of Service April 05, 2024 Notes For Next Care Provider Medication Changes From Visit Cefdinir- antibiotic for scrotal infection Please take a probiotic daily for at least a month. Admission HPI Per Admitting Provider This is a 89yo M with a PMH of atrial fibrillation on coumadin, pulm HTN, dyslipidemia, hypothyroidism, asthma, asbestos history with restrictive lung disease, HFpEF, history of bladder cancer BPH, CKD III, h/o aortic valve replacement, insomnia with Ambien use and other medical problems listed below who was brought in by for worsening confusion. History obtained per chart review and at bedside due to patient's altered status. Recently admitted in January 2024 with RSV and had decompensated heart failure while here. 2D echo at that time revealed moderate concentric LVH, apical wall motion abnormality may reflect pacemaker activation. Flattened septum is consistent with RV pressure overload. EF 55-60%. Bioprosthetic aortic valve. Gradient is normal for prosthetic aortic valve. Annuloplasty ring and prior mitral valve repair is present with thickening of the mitral valve leaflets. Moderate mitral stenosis is present. Mild mitral and tricuspid regurgitation. Right ventricular systolic pressure is elevated to be 50 to 60 mmHg. Has been following with [facility] for testicular swelling and discomfort and was diagnosed with spermatocele of epididymis, started on doxy for empiric coverage of possible orchitis and then transitioned to Macrobid yesterday, per at bedside. Recent micro reviewed - most recent urine culture negative 03/19 without growth. For scrotal swelling, urology recommending scrotal support, icing, OTC pain meds for pain. Noted swelling and hopes for cardiology to weigh in on diuresis at upcoming appt (due to see Genny Donahue 04/08). notes that patient has been significantly more confused, sleeping all day and having diarrhea since yesterday including some diarrhea while sleeping so brought him in for further evaluation. Also notes increased swelling of legs and audible wheezing over the past 2 weeks. Recently was instructed to complete 5 days of Lasix 40mg PO as per Dr. Rainey's direction over messaging on 03/20 and to contact if no improvement. Patient has reportedly continued ot have lower extremity swelling but states he has transitioned back to Lasix 20-4 0mg 3x/week PRN which admits he is lax about if he has appointments or will out of the house. With ongoing issues this past week, she did not think to reach back out to cardiology and brought to ED today because of confusion and diarrhea. Admission Exam Per Admitting Provider GENERAL APPEARANCE: AxOx1 pleasant but delirious , no acute distress. HEENT: NC, AT. MMM. EOMI, clear conjunctiva, oropharynx clear. NECK: Supple without lymphadenopathy. No stiffness or restricted ROM. HEART: irregularly irregular ?JERRY LUNGS: CTAB, moving air well. No crackles or wheezes are heard. ABDOMEN: Soft, nontender, nondistended with good bowel sounds heard. : boggy, slight scrotal edema, tenderness to slight palpation EXTREMITIES: bilateral 2+edema up to knees NEUROLOGICAL: Grossly nonfocal. Alert and oriented, moving all 4 extremities. CN not formally tested but appear grossly intact. Skin: Warm and dry without any rash. Principal Dx & Hospital Course #1 = Principal Diagnosis (1) Epididymitis: Assessment & Plan (1) Acute metabolic encephalopathy: (2) Acute decompensated heart failure: (3) Status post aortic valve replacement: (4) Status post mitral valve repair: (5) Atrial fibrillation: (6) Pacemaker: (7) Acute kidney injury superimposed on CKD: (8) Testicular discomfort: (9) Spermatocele of epididymis, single: (10) Nocturnal hypoxemia: Plan per previous hospitalist notes with addendum: This is a 89yo M with a PMH of atrial fibrillation on coumadin, pulm HTN, dyslipidemia, hypothyroidism, asthma, asbestos history with restrictive lung disease, HFpEF, history of bladder cancer BPH, CKD III, h/o aortic valve replacement, insomnia with Ambien use and other medical problems listed below who was brought in by for worsening confusion. History obtained per chart review and at bedside due to patient's altered status. Acute metabolic encephalopathy In setting of ? infection vs orchitis prophylaxis recently on doxy and switched to Macrobid yesterday, possible gastroenteritis with diarrhea overnight Continue empiric abx coverage with Rocephin for now, follow blood culture Delirium precautions 04/03 (+) delirium received Zyprexa x 2 doses Discussed with patient's Will trial Ativan 0.25 mg so patient can rest and hopefully will help with mental status 04/04 Delirium resolving Continue delirium prevention strategies Will resume usual Ambien half tablet at bedtime Discussed with patient's , she is agreeable with the plan 04/05 resolved patient mostly back to baseline mental status patient ambulating in the room with no problems, back to baseline function as per she is agreeable for discharge to home today Diarrhea In setting of Macrobid vs gastroenteritis Stool culture pending Transitioned to Rocephin Supportive care 04/05 Stool PCR panel: positive for norovirus Resolved Orchitis Urine culture: negative blood culture: negative Scrotal US: (+) edema, no fluid collection scrotal edema, resolved no problems urinating Gabriel Cath removed given Ceftriaxone IV x 5 days Urologist consulted discharge on 5 more days of PO Cefdinir 300mg daily ff up with Urologist in 1 week Acute on chronic diastolic congestive heart failure S/p aortic Valve replacement, Bovine valve Hx of mitral valve repair Noted to be in decompensated HF during January admission in setting of viral illness, cardiology helpful with diuresis recs given medically complex noting BLE edema x 2 weeks, did complete 5 days of 40mg PO Lasix starting 03/[address] Rainey, has since resumed "lax" 3x/week lasix 40mg PRN dosing, per * 2D ECHO from January 2024: Left ventricle is normal in size. Moderate concentric LVH. Apical wall motion abnormality may reflect pacemaker activation. Flattened septum is consistent with RV pressure overload. EF 55 to 60%. Bioprosthetic aortic valve. Gradient is normal for prosthetic aortic valve. Annuloplasty ring and prior mitral valve repair is present with thickening of the mitral valve leaflets. Moderate mitral stenosis is present. Mild mitral and tricuspid regurgitation. Right ventricular systolic pressure is elevated to be 50 to 60 mmHgSaturating at 95% on room air, BNP 1792 CXR today with cardiomegaly and cardiac pacemaker with evidence of congestive failure. Bilateral airspace opacities likely represent pulmonary edema. Correlate clinically Routine cards consult placed Hold spironolactone. Did not give IV lasix in ED due to HOLLY, GI losses Gabriel placed for accurate I&Os, daily weights 04/01 Cardiology service consulted minimal pulmonary edema CT chest 1. Cardiomegaly with evidence of pulmonary arterial hypertension. 2. Mild pulmonary edema with small pleural effusions and anasarca. 3. Mild dependent subsegmental atelectasis. 4. 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 hold Lasix for now in light of crea elevation monitor closely appreciate Cardiology service recommendations 04/03 Lasix p.o. ordered Monitor closely 04/04 Euvolemic Resume Lasix 20 mg p.o. daily Monitor closely 04/05 Euvolemic resume usual Lasix 20mg po daily HOLLY superimposed on CKD Cr 1.7 today in setting of GI losses, Macrobid Baseline Cr ~ 1.2-1.4 crea 1.4--> 1.7 --> 1.5--> 1.4--> 1.6 back to baseline monitor as outpatient Possible GI bleed (+)FOBT otherwise no signs of overt GI bleed GI consulted Does not recommend EGD at this point placed on Protonix BID hg Actually improved to 9.6 resume coumadin monitor CBC closely Persistent atrial fibrillation Supratherapeutic INR INR 4.3 ---> 3.3--> 2.3--1.7-->1.8 no signs of bleeding monitor Resume Coumadin cautiously ff up with [facility] this week Chronic Anemia receives procrit weekly per Hg 9.5--> 8.4--> 8.5--> 9.3-> 9.7 monitor Hg Moderate persistent asthma COPD Nocturnal Hypoxemia Denies recent respiratory issues or URI Continue home inhalers, baseline 2L HS Hx Tachy/Pb Syndrome s/p Pacemaker HTN HLD Continue spironolactone, rosuvastatin Continue Coumadin Needs follow-up with Coumadin clinic on discharge Tobacco use disorder Counseled to quit chewing tobacco Adding nicotine patch Chronic Osteoarthritis Continue daily 5mg Prednisone, follows with rheum Hypothyroidism Continue levothyroxine 125 mcg daily BPH Continue flomax 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 Louis and Urology, Dr. Borges consulted as above RLS Continue Ambien DVT Ppx: resume coumadin Code status: FULL PCP: Richar Dispo:d/c home PCP in 1 week Cardiology this week Urology in 1 -2 wees plan of care discussed with patient and his at bedside in detail and at length all questions answered they are understanding, agreeable, comfortable with the plan of care Discharge Exam General- oriented x 3, not in distress, speaks in sentences with no effort or accessory muscle use Eyes- anicteric Neck- no JVD Lungs- clear breath sounds bilaterally, no rales/wheezes Heart- normal rate, regular rhythm; no murmurs Abdomen- normal bowel sounds, nondistended, soft, nontender Genitalia- mild edema of the penile skin, no erythema/warmth/tenderness no scrotal edema Extremities- no pretibial edema, no calf tenderness Neuro- alert, oriented x 3; no gross focal neurologic deficits Skin- warm & dry Updated Medication List Medication Instructions Recorded Confirmed Type albuterol sulfate 90 mcg/actuation 2 puff inhalation Q4 PRN Wheezing 03/25/19 03/31/24 History aerosol inhaler coenzyme Q10 100 mg capsule 100 mg PO QAM 03/25/19 03/31/24 History (CoQ-10) esomeprazole magnesium 40 mg 40 mg PO BID 03/25/19 03/31/24 History capsule,delayed release (Nexium) polyethylene glycol 3350 17 gram 17 g PO QAM 03/25/19 03/31/24 History oral powder packet (Miralax) prednisone 5 mg tablet 5 mg PO QAM 03/25/19 03/31/24 History rosuvastatin 10 mg tablet (Crestor) 10 mg PO QPM 03/25/19 03/31/24 History warfarin 5 mg tablet 2.5 mg PO [id number] 03/25/19 03/31/24 History ferrous sulfate 325 mg (65 mg 325 mg PO QAM 04/25/21 03/31/24 History iron) tablet furosemide 40 mg tablet 40 mg PO DAILY PRN Weight Gain 01/23/24 03/31/24 History levothyroxine 125 mcg tablet 125 mcg PO QAM 01/23/24 03/31/24 History spironolactone 25 mg tablet 12.5 mg PO QAM 01/23/24 03/31/24 History tamsulosin 0.4 mg capsule 0.4 mg PO HS freqency 01/23/24 03/31/24 History tiotropium bromide 2.5 2 puff inhalation DAILY 01/23/24 03/31/24 History mcg/actuation mist for inhalation (Spiriva Respimat) zolpidem 5 mg tablet 5 mg PO HS PRN restless leg 01/23/24 03/31/24 History syndrome nitrofurantoin 100 mg PO Q12H 7 days #14 caps 03/30/24 03/31/24 Rx monohydrate/macrocrystals 100 mg capsule (Macrobid) cholecalciferol (vitamin D3) 25 25 mcg PO QAM 03/31/24 03/31/24 History mcg (1,000 unit) tablet (Vitamin D3) cyanocobalamin (vitamin B-12) 1,000 mcg PO DAILY 03/31/24 03/31/24 History 1,000 mcg tablet (Vitamin B-12) ipratropium 0.5 mg-albuterol 3 mg 3 ml inhalation Q6H PRN Wheezing 03/31/24 03/31/24 History (2.5 mg base)/3 mL nebulization soln magnesium 250 mg tablet 250 mg PO DAILY 03/31/24 03/31/24 History cefdinir 300 mg capsule 300 mg PO DAILY 5 days #5 caps 04/05/24 Rx Hospital Stay Data Consultations 03/31/24 14:03 ED Decision to Admit Stat 03/31/24 16:04 Consult Urology Routine 03/31/24 16:47 Consult Cardiology Routine 04/03/24 07:22 Consult Gastroenterology Routine Diagnostic Imagining Performed Laboratory Results WBC 5.07 K/ul (4.8-10.8) 04/05/24 04:23 RBC 3.62 M/uL (4.70-6.10) L 04/05/24 04:23 Hgb 9.7 g/dl (14.0-18.0) L 04/05/24 04:23 Hct 32.8 % (42.0-52.0) L 04/05/24 04:23 MCV 90.6 fL (80.0-100.0) 04/05/24 04:23 MCH 26.8 pg (25.0-34.0) 04/05/24 04:23 MCHC 29.6 g/dL (32.0-36.0) L 04/05/24 04:23 RDW Std Deviation 49.5 fL (36.4-46.3) H 04/05/24 04:23 RDW Coeff of Humberto 14.9 % (11.5-14.5) H 04/05/24 04:23 Plt Count 123 K/uL (130-400) L 04/05/24 04:23 MPV 11.5 fL (9.4-12.4) 04/05/24 04:23 Immature Gran % (Auto) 1.0 % 04/05/24 04:23 Neut % (Auto) 67.4 % 04/05/24 04:23 Lymph % (Auto) 14.6 % 04/05/24 04:23 [place] % (Auto) 12.6 % 04/05/24 04:23 Eos % (Auto) 3.4 % 04/05/24 04:23 Baso % (Auto) 1.0 % 04/05/24 04:23 Neut # (Auto) 3.42 K/uL (1.40-6.50) 04/05/24 04:23 Lymph # (Auto) 0.74 K/uL (1.20-3.40) L 04/05/24 04:23 [place] # (Auto) 0.64 K/uL (0.11-0.59) H 04/05/24 04:23 Eos # (Auto) 0.17 K/uL (0.00-0.50) 04/05/24 04:23 Baso # (Auto) 0.05 K/uL (0.00-0.20) 04/05/24 04:23 Immature Gran # (Auto) 0.05 K/uL (0.01-0.20) 04/05/24 04:23 Polychromasia 1+ 03/31/24 11:30 Poikilocytosis Present 03/31/24 11:30 Tear Drop Cells 2+ 03/31/24 11:30 Ovalocytes 1+ 03/31/24 11:30 Acanthocytes (Spur) 1+ 03/31/24 11:30 PT 18.6 Seconds (9.0-12.0) H 04/05/24 04:23 INR 1.8 (0.9-1.1) H 04/05/24 04:23 APTT 40 Seconds (21-31) H 03/31/24 11:30 PTT Ratio 1.5 03/31/24 11:30 Sodium 136 mmol/L (136-145) 04/05/24 04:23 Potassium 3.9 mmol/L (3.5-5.1) 04/05/24 04:23 Chloride 101 mmol/L (98-107) 04/05/24 04:23 Carbon Dioxide 29 mmol/L (21-32) 04/05/24 04:23 Anion Gap 6 (3-11) 04/05/24 04:23 BUN 36 mg/dl (6-23) H 04/05/24 04:23 Creatinine 1.62 mg/dl (0.6-1.4) H 04/05/24 04:23 Est Cr Clr Drug Dosing 26.9 ml/min 04/05/24 04:23 Est GFR ( Amer) 43.6 ml/min 04/05/24 04:23 Est GFR (Non-Af Amer) 37.6 ml/min 04/05/24 04:23 BUN/Creatinine Ratio 22.2 (10-20) H 04/05/24 04:23 Glucose 106 mg/dl (70-99(Fasting)) H 04/05/24 04:23 Lactate 1.6 mmol/L (0.4-2.0) 03/31/24 12:55 Calcium 8.7 mg/dl (8.6-10.3) 04/05/24 04:23 Magnesium 1.8 mg/dl (1.7-2.4) 04/03/24 04:36 Total Bilirubin 1.8 mg/dl (0.2-1.0) H 03/31/24 11:30 AST 18 U/L (13-39) 03/31/24 11:30 ALT 10 U/L (7-52) 03/31/24 11:30 Alkaline Phosphatase 54 U/L (34-104) 03/31/24 11:30 Troponin I High Sens 28.2 pg/ml (0-20) H 03/31/24 14:24 B-Natriuretic Peptide 1792 pg/ml (0-100) H 03/31/24 11:30 Total Protein 6.2 gm/dl (6.0-8.3) 03/31/24 11:30 Albumin 3.8 gm/dl (3.4-5.0) 03/31/24 11:30 Globulin 2.4 gm/dl (2.5-4.0) L 03/31/24 11:30 Albumin/Globulin Ratio 1.6 (0.9-2) 03/31/24 11:30 Procalcitonin 0.17 ng/ml (0-0.5) 03/31/24 11:30 Urine Color Dark Yellow 03/31/24 11:54 Urine Appearance Clear (Clear) 03/31/24 11:54 Urine pH 5.5 (4.5-7.5) 03/31/24 11:54 Ur Specific [place] 1.029 (1.000-1.030) 03/31/24 11:54 Urine Protein 1+ (Negative) H 03/31/24 11:54 Urine Glucose (UA) Negative (Negative) 03/31/24 11:54 Urine Ketones 1+ (Negative) H 03/31/24 11:54 Urine Blood Trace (Negative) H 03/31/24 11:54 Urine Nitrite Negative (Negative) 03/31/24 11:54 Urine Bilirubin 1+ (Negative) H 03/31/24 11:54 Urine Urobilinogen Negative (Negative) 03/31/24 11:54 Ur Leukocyte Esterase Trace (Negative) H 03/31/24 11:54 Urine WBC (Auto) 0-5 /hpf (0-5) 03/31/24 11:54 Urine RBC (Auto) 6-10 /hpf (0-2) H 03/31/24 11:54 U Hyaline Cast (Auto) 3-5 /lpf (0-2) H 03/31/24 11:54 U Epithel Cells (Auto) 3-5 /hpf (0-2) H 03/31/24 11:54 Urine Bacteria (Auto) None Seen (None Seen) 03/31/24 11:54 Stool Occult Bld Scrn Positive (Negative) A 04/02/24 19:40 Stl C. cayetanensis PCR Not Detected (NotDetected) 03/31/24 19:15 Stool Rotavirus A PCR Not Detected (NotDetected) 03/31/24 19:15 Stl Adenov F 40/41 PCR Not Detected (NotDetected) 03/31/24 19:15 Stool Astrovirus (PCR) Not Detected (NotDetected) 03/31/24 19:15 Stool Campylobacter PCR Not Detected (NotDetected) 03/31/24 19:15 Stl C. diff Tox B Gene Negative Cdiff Gene (Neg) 04/02/24 19:40 Stool Cryptosporidium PCR Not Detected (NotDetected) 03/31/24 19:15 Stl E.coli Shiga Tox PCR Not Detected (NotDetected) 03/31/24 19:15 Stl Enterotoxigenic E PCR Not Detected (NotDetected) 03/31/24 19:15 Stool EPEC (PCR) Not Detected (NotDetected) 03/31/24 19:15 Stool EAEC (PCR) Not Detected (NotDetected) 03/31/24 19:15 Stl E. histolytica PCR Not Detected (NotDetected) 03/31/24 19:15 Stool Giardia Lamblia PCR Not Detected (NotDetected) 03/31/24 19:15 Stool Salmonella PCR Not Detected (NotDetected) 03/31/24 19:15 Stool Sapovirus (PCR) Not Detected (NotDetected) 03/31/24 19:15 Stl P. shigelloides PCR Not Detected (NotDetected) 03/31/24 19:15 Stl Shigella/EIEC PCR Not Detected (NotDetected) 03/31/24 19:15 St Y.enterocolitica PCR Not Detected (NotDetected) 03/31/24 19:15 Stool Vibrio (PCR) Not Detected (NotDetected) 03/31/24 19:15 Stl Vibrio cholerae PCR Not Detected (NotDetected) 03/31/24 19:15 Stl Norovirus GI/GII PCR DETECTED (NotDetected) A* 03/31/24 19:15 SARS-CoV-2 (PCR) NEGATIVE (Negative) 03/31/24 Unknown Influenza Type A (PCR) Negative (Neg) 03/31/24 Unknown Influenza Type B (PCR) Negative (Neg) 03/31/24 Unknown RSV (RT-PCR) Negative (Neg) 03/31/24 Unknown Blood Type O Positive 04/03/24 04:36 Antibody Screen NEGATIVE 04/03/24 04:36 Impressions Abdomen/Pelvis CT 03/31/24 12:15 CT SCAN OF THE ABDOMEN AND PELVIS WITHOUT IV CONTRAST CLINICAL HISTORY: Urinary tract infection. Diarrhea. Change in mental status. COMPARISON STUDY: Abdominal CT dated 05/17/2022. TECHNIQUE: CT scan of the abdomen and pelvis is performed from the lung bases to the proximal femora. Images are reviewed in the axial, sagittal, and coronal planes. IV contrast was not administered for this examination. Note that the examination was performed in significantly suboptimal fashion without oral and IV contrast. There is also motion artifact, as well as streak artifact from the arms which could not be elevated of the abdomen. A dose lowering technique was utilized adhering to the principles of ALARA. CT DOSE: 1675.92 mGy.cm FINDINGS: Lung bases: The patient is status post midline sternotomy and cardiac valve surgeries. Pacemaker leads are in place. The heart is enlarged and without pericardial effusion. The coronary arteries are densely calcified. There is diminished attenuation of the cardiac blood pool last compared to the myocardium suggesting anemia. There are small pleural effusions with dependent atelectasis. Calcified pleural plaque is again seen at the right lung base. A small hiatal hernia is noted. Gynecomastia is observed. Liver: The unenhanced liver is normal in size, contour, and attenuation. There is no intrahepatic biliary ductal dilatation. Gallbladder: There are calcified gallstones with no CT evidence of acute cholecystitis. Spleen: Normal in size and attenuation. Pancreas: The unenhanced pancreas is moderately atrophic and grossly unremarkable. Adrenal glands: Unremarkable. Kidneys: The unenhanced kidneys demonstrate mild cortical atrophy and are without hydronephrosis. There are punctate nonobstructing bilateral renal calculi. No ureteral stone is seen. There is no evidence of contour deforming renal mass lesion. Abdominal vasculature: There is advanced atherosclerotic calcification and ectasia of the abdominal aorta. 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 There is aneurysmal dilatation of the left internal iliac artery which measures up to 2.0 cm.. Bowel: There is postsurgical change from colon resections with colocolonic anastomosis. No bowel obstruction is seen. There are scattered diverticula of the remaining colon without CT evidence of acute diverticulitis. There is liquid stool throughout the residual colon. Mild rectal wall thickening is observed. Peritoneum: There is trace perihepatic and pelvic ascites. No intraperitoneal free air is identified. Lymphadenopathy: None. Pelvic viscera: The prostate gland is enlarged and heterogeneous. The bladder is largely decompressed, and the wall is thickened/trabeculated indicating chronic outlet obstruction. There is persistent infiltration. There are bilateral fat- containing inguinal hernias. Skeletal structures: The skeletal structures are osteopenic. 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 There is moderate lumbosacral spondylosis. No lytic or blastic lesions are clearly seen. There are subacute-appearing bilateral rib fractures. Soft tissues: There is anasarca of the body wall. IMPRESSION: 1. Suboptimal examination without oral and IV contrast. There is also streak and motion artifact. 2. Cardiomegaly and small pleural effusions. 3. Anasarca of the body wall and trace abdominopelvic ascites suggest fluid overload. 4. There is evidence of chronic bladder outlet obstruction as well as persistent infiltration. Correlate with clinical findings and urinalysis for evidence of cystitis. 5. There is liquid stool seen throughout the colon with mild rectal wall thickening. Correlate clinically for evidence of a nonspecific proctitis/diarrheal illness. 6. Cholelithiasis. 7. Bilateral nephrolithiasis. 8. Additional findings as above. ACT 112: Negative or not required by law. Electronically signed by: Caleb Sams M.D. 03/31/2024 1:[address] 03/31/24 12:15 CT SCAN OF THE BRAIN WITHOUT IV CONTRAST CLINICAL HISTORY: Change in mental status. COMPARISON STUDY: CT of the brain dated 11/18/2016. TECHNIQUE: Unenhanced axial CT scan of the brain is performed from the vertex to the skull base. A dose lowering technique was utilized adhering to the principles of ALARA. FINDINGS: Brain parenchyma: There is age-related involutional change noting moderate subcortical and periventricular microangiopathic disease. There is no hemorrhage, mass effect, or evidence of acute territorial ischemia by CT criteria. Zarate-white matter differentiation is preserved. No extra-axial fluid collection is seen. 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 Ventricles, sulci, cisterns: Prominent secondary to involutional change. Intracranial vasculature: There is atherosclerotic calcification of the cavernous carotid and vertebral arteries. Calvarium: Unremarkable. Sinuses and mastoids: The visualized paranasal sinuses are clear. The mastoid air cells are well pneumatized. Orbits: The bony orbits are grossly intact. IMPRESSION: There is no hemorrhage, mass effect, or evidence of acute territorial ischemia by CT criteria. ACT 112: Negative or not required by law. Electronically signed by: Caleb Sams M.D. 03/31/2024 1:06 PM Scrotum Ultrasound 04/01/24 04:41 US scrotum/testicle CLINICAL HISTORY: 89 years-old Male with orchitis. Acute scrotal pain COMPARISON STUDY: March 19, 2024 TECHNIQUE: Real-time, grayscale, and color Doppler sonography of the testes and scrotum is performed. Images are reviewed in the transverse and longitudinal planes. FINDINGS: RIGHT HEMISCROTUM: The right testis measures 3.2 x 2.3 x 2.7 cm and the parenchyma appears unremarkable. No intratesticular mass is seen. Normal- appearing arterial inflow is present within the right testicle. Right epididymal cysts are again noted measuring up to 4.1 cm. Calcifications within the epididymis also noted. No varicocele or hydrocele is identified. Prominent subcutaneous edema of the scrotal wall. LEFT HEMISCROTUM: The left testis measures 2.8 x 1.8 x 2.8 cm and the parenchyma appears unremarkable. No intratesticular mass is seen. Normal-appearing arterial inflow is present within the left testicle. 5 mm hypoechoic focus in the left epididymal head without color-flow measures 5 mm which is indeterminate, possibly a complex cyst. No varicocele or hydrocele is identified. Prominent subcutaneous edema of the scrotal wall. IMPRESSION: 1. Scrotal wall edema redemonstrated. No fluid collections. 2. No testicular torsion or mass. ACT 112: Negative or not required by law. The above report was generated using voice recognition software. It may contain grammatical, syntax or spelling errors. Electronically signed by: Denys Wing M.D. 04/01/2024 6:[address] 04/01/24 13:19 CT chest diagnostic wo con CT DOSE: 311.2 mGy.cm CLINICAL HISTORY: 89 years-old Male with r/o pneumonia. Acute shortness of breath. TECHNIQUE: Multiaxial CT images of the chest were performed without contrast. A dose lowering technique was utilized adhering to the principles of ALARA. COMPARISON: 05/17/2022. FINDINGS: No thyroid nodule is identified. The patient is status post midline sternotomy and cardiac valve surgeries. Pacemaker leads are in place. The heart is enlarged and without pericardial effusion. Severe coronary arterial calcifications. There is diminished attenuation of the cardiac blood pool last compared to the myocardium suggesting anemia. Atherosclerosis of the thoracic aorta without aneurysm. Dilation of the main pulmonary artery is suggestive of pulmonary arterial hypertension (4 cm). There are small pleural effusions with dependent atelectasis. No pneumothorax. Mild intralobular septal thickening. No suspicious pulmonary nodules or mass is identified. Bilateral calcified pleural plaques. Mild pulmonary emphysema. A small hiatal hernia is noted. Gynecomastia. Hepatosplenomegaly. Gastric fundal diverticulum. Body wall edema. Chronic mild superior endplate compression deformities at T3 and T4 without retropulsion demonstrate up to approximately 20% vertebral body height loss, unchanged. IMPRESSION: 1. Cardiomegaly with evidence of pulmonary arterial hypertension. 2. Mild pulmonary edema with small pleural effusions and anasarca. 3. Mild dependent subsegmental atelectasis. 4. 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 ACT 112: Negative or not required by law. Dictated: 04/01/2024 3:27 PM Transcribed: 04/01/2024 3:38 PM Christiano [id number] [email or web address] Electronically signed by: Denys Wing M.D. 04/01/2024 4:10 PM Chest X-Ray 04/03/24 02:05 SINGLE VIEW CHEST CLINICAL HISTORY: Dyspnea. FINDINGS: An AP, portable, supine chest radiograph is compared to study dated 03/31/2024. Correlation is made with chest CT dated 04/01/2024. The examination is degraded by portable technique and patient rotation. The patient is status post midline sternotomy and cardiac valve surgery. A single-lead cardiac pacemaker and a right internal jugular central venous infusion port are unchanged in position. The heart is enlarged noting atherosclerotic calcification of the thoracic aorta. There is pulmonary vascular congestion. Bilateral airspace opacities likely represent interstitial edema. Small pleural effusions are suspected. Calcified pleural plaques are unchanged. No pneumothorax is seen. The skeletal structures are osteopenic. There are chronic/healed right-sided rib fractures. Degenerative change is noted in the shoulders and spine. IMPRESSION: 1. Cardiomegaly and cardiac pacemaker with evidence of congestive failure. This is modestly improved from 03/31/2024. 2. Bilateral airspace opacities likely represent pulmonary edema. Correlate clinically. 3. Suspect small pleural effusions. ACT 112: Negative or not required by law. Electronically signed by: Caleb Sams M.D. 04/03/2024 8:00 AM Pending Results Patient Have Any Pending Studies at Discharge: No Discharge Instructions Given to Patient (Per Discharging Provider) PLEASE REFER TO YOUR NEW MEDICATION LIST AND FOLLOW INSTRUCTIONS CAREFULLY. YOUR NEW MEDICATIONS INCLUDE: Cefdinir- antibiotic for scrotal infection Please take a probiotic daily for at least a month. PLEASE CALL YOUR PRIMARY CARE PHYSICIAN OR RETURN TO THE ER IF WITH WORSENING OF SYMPTOMS, INCLUDING scrotal swelling, fever/chills, problems urinating, etc FOLLOW UP WITH PRIMARY CARE PHYSICIAN IN 1 WEEK, PRODUCTION HARDENER THIS WEEK, UROLOGI ST IN 1-2 WEEKS. Total Time Total Time Spent Total Time Spent (In Minutes): 45 minutes
== END 2024-04-05 13:02 | disposition home health service (06) | DRG 291 ==
LOC: ED 11:19 → SUATTDRO 15:45 → 4W 15:45

== ENCOUNTER 2024-05-27 20:44 | Observation (INO) ==
[2024-05-27] MEDS ORDERED: VANCOMYCIN CONSULT ACTIVE PRN (21:19)
--- NOTE | 2024-05-27 21:31 | Emergency Department Note ---
Impression & Plan Cellulitis of left leg, Acute kidney injury superimposed on CKD, Elevated lactic acid level ED Provider Note HISTORY OF PRESENT ILLNESS: Patient is a an 89-year-old male presenting with left lower leg cellulitis. Patient was diagnosed with cellulitis 9 days ago after getting a skin tear from a brionna nail on a picnic table, and he was started on doxycycline. He completed his course of doxycycline and was seen at his primary care provider's office 48 hours ago and was still having persistent redness and swelling to his left lower extremity. He was started on Bactrim and Keflex. However, he has since had spreading redness down into his foot today and his swelling has gotten worse. He is also complaining of seeping from the wound on his left lower extremity. No reported fevers. Denies any DVT or PE history. He is on Coumadin for history of an aortic valve replacement. He denies any nausea or vomiting. He is complaining of pain in the left lower extremity. ROS: as above PHYSICAL EXAM: Constitutional: Patient appears in no acute distress. HENT: Head: Normocephalic and atraumatic. Eyes: EOMI, PERRL Mouth/Throat: Mucous membranes moist. Neck: Trachea midline. Neck supple. Musculoskeletal: - LLE: Skin tears with granulation tissue on the posterior proximal calf. There is some serosanguineous drainage from the wounds on the gauze that is overlying the area. Patient has 2+ pitting edema of the left lower extremity extending to the proximal tibia. His left leg is red and swollen. Erythema is warm to the touch. Erythema is more significant on the posterior left leg, extending from the proximal tibia down into the left heel. Able to dorsiflex and plantarflex the ankle. Intact DP and PT pulses. No palpable crepitus. Skin: Warm and dry. Psychiatric: Appropriate mood and affect for situation. Neurological: Alert and keenly responsive. CN II-XII grossly intact, moving all extremities equally and fully. MDM: - Vitals signs stable - History obtained via patient. History as above. - Chronic conditions affecting care: Afib; CKD; prostate cancer hx; aortic valve replacement; CHF - Differential diagnoses include, but are not limited to: DVT; cellulitis; contact dermatitis; necrotizing fasciitis - Order placed for continuous cardiac monitoring. At this time, monitor showed rate of 80 bpm with irregular rhythm, per my interpretation. - External medical records reviewed. [facility] note from [facility] dated 05/25/2024 was reviewed. Patient was seen as a follow-up after his discharge from the ER after being diagnosed with cellulitis and started on doxycycline. He reportedly had 2 days of improved swelling, but now the swelling is worse and is having significant pain in the left leg and ankle hurts. He is again diagnosed with cellulitis to the left lower leg and started on Keflex twice daily for 10 days and Bactrim twice daily for 10 days. - EKG interpreted by myself showed atrial fibrillation. Rate 78 bpm. QT 450. No acute ischemic changes. Noted to have PVCs. Also noted to have some T wave inversions in V4 through V6. - Laboratory workup interpreted by myself showed normal WBC; anemia (Hgb 7.5); slight hyponatremia (Na 133); HOLLY on CKD (Cr 2.63); hyperglycemia (glucose 137); elevated lactate (2.3); normal procalcitonin - Patient given 2L NS in ER. His sepsis fluid volume calculation based on ideal body weight is 1854.30 mL. - Blood cultures obtained. - IV vancomycin ordered for his cellulitis. - Patient has been on keflex and bactrim for 48 hours with worsening of his symptoms. Had previously been on doxycycline the previous week. Will admit for IV antibiotics. - Discussion was had with therapeutic case manager about patient's case and need for admission - Hospitalist, Dr. Mendieta, consulted for admission - [facility]. ASSESSMENT AND PLAN: Diagnosis: left leg cellulitis; HOLLY on CKD; elevated lactic acid level Plan: admit Past Med/Surg History Problem List (Updated 05/27/24 @ 22:24 by Brenda Aguila MD) Elevated lactic acid level (Acute) Acute kidney injury superimposed on CKD (Acute) Cellulitis of left leg (Acute) Cellulitis (Acute) Anemia Heme positive stool Epididymitis Persistent atrial fibrillation Acute on chronic diastolic CHF (congestive heart failure) Weakness (Acute) AMS (altered mental status) (Acute) CHF (congestive heart failure) (Acute) Acute metabolic encephalopathy Nocturnal hypoxemia Acute kidney injury superimposed on CKD Acute decompensated heart failure Testicular discomfort (Acute) Spermatocele of epididymis, single (Chronic) Community acquired pneumonia (Acute) Congestive heart failure (Acute) Moderate mitral stenosis Pneumonia Mitral stenosis and aortic insufficiency Pulmonary edema cardiac cause RSV (respiratory syncytial virus infection) Metabolic acidosis Acute respiratory failure with hypoxia and hypercarbia Encounter for pre-operative examination Lumbar spondylosis Low back pain Bladder cancer Pacemaker Asthma Chronic steroid use Atrial fibrillation DX 2003 - ON WARFARIN; follows with Dr. Rainey Status post mitral valve repair Status post aortic valve replacement "bioprosthetic" CKD (chronic kidney disease), stage III History of prostate cancer "had elevated PSA with + biopsy, but repeat biopsies and subsequent PSA's improved" On 11/18/16 10:00 Randy Ennis Dirksana wrote "2007" Osteoarthritis Medical History (Updated 05/27/24 @ 22:24 by Brenda Aguila MD) Enlarged prostate Elevated troponin level (05/18/24) notes elevated troponin level ad mn ed visit. Reports she did message cardiology regarding and no response as of current. Anemia reports iron deficiency anemia. Asthma not sure on official dx details. History of respiratory failure (12/2023) History of encephalopathy (03/2024) Hx of bladder cancer (05/2021) TURBT, chemo + radiation Nocturnal hypoxemia oxygen prn 2L [place] (hard of hearing) High cholesterol History of elevated PSA Osteoarthritis CKD (chronic kidney disease), stage III History of pulmonary edema History of pericarditis (2022) Moderate mitral stenosis "some calcification there" - told valve was working okay. History of RSV infection (12/2023) and hx respiratory failure Dec 2023 History of pneumonia (12/2023) Hypothyroid Persistent atrial fibrillation History of CHF (congestive heart failure) (03/2024) Cellulitis dx 05/18/24 left leg - ms ed. Hematuria current: messaged urology regarding. Reports was told do colonoscopy/egd first then will follow up. Hx cystoscopy march 2024 and was clear. 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 History of atrial flutter Restless legs syndrome Dyslipidemia Carotid artery disease pt is unsure about this. Nothing has ever been talked about regarding. Spinal stenosis of lumbar region History of paroxysmal supraventricular tachycardia BPH (benign prostatic hypertrophy) Diverticular disease of colon COPD (chronic obstructive pulmonary disease) pt not sure about official dx of. Hypertension Surgical History (Updated 05/22/24 @ 14:52 by Cristian Hogue RN) History of aortic valve replacement (2003) History of mitral valve repair (2003) [facility]. History of cardiac radiofrequency ablation x2 most recent approx 2013. History of right cataract surgery History of left cataract surgery Pacemaker TACHY-KURT SYNDROME. ALSO HX OF A-FIB. LAST CHECKED within 2023 - [facility] History of bladder surgery TURBT 05/29/2021 [facility] History of esophagogastroduodenoscopy (EGD) MULTIPLE History of tonsillectomy History of total knee replacement LEFT KNEE History of herniorrhaphy History of surgery MOHS PROCEDURE ON FACE History of colonoscopy History of bowel resection S/T DIVERTICULITIS History of arthroscopy B/L SHOULDERS Status post inguinal hernia repair Family History Brother Diabetes Cancer Esophageal Cancer Mother Colorectal cancer Lung cancer Social History Smoking Status: Never smoker Tobacco Type: Smokeless Tobacco (Dip or Chew) Cigarettes Per Day: 0; Second Hand Exposure: No; Do You Dip or Chew Tobacco: Yes (1 can lasts a few days/advised); Hx Alcohol Use: Yes (hx social rare...not anymore) Alcohol type: beer Alcohol Intake Frequency Comment: Socially Hx Substance Use: No Preferred Language: Luxembourgish Communication Ability: Effective Communication Ability Comment: pt is [place], pt does phone interview. Visual Impairment: Limited Hearing Ability: Hard of Hearing Site Engineer Required: No Beliefs That Will Affect Care: None marital status: Current Living Situation: Spouse current occupational status: retired Feels Safe at Home: Yes Diet: regular caffeine: No during the past year weight has: remained stable Physical Activity Frequency: Other Physical Activity Frequency Comment: "Does alot of yard work" Assistive Devices: Glasses, Hearing Aid - Bilateral and Oxygen - at Night Allergies Allergies Allergy/AdvReac Type Severity Reaction Status Date / Time Penicillins Allergy Unknown RASH/EL-ORBITAL Verified 05/22/24 12:47 EDEMA olanzapine [From Zyprexa] AdvReac Severe Agitated Verified 05/22/24 12:47 Home Meds Home Medications Medication Instructions Recorded Confirmed albuterol sulfate 90 mcg/actuation 2 puff inhalation UD PRN asthma 03/25/19 05/22/24 aerosol inhaler coenzyme Q10 100 mg capsule 100 mg PO QAM 03/25/19 05/22/24 (CoQ-10) esomeprazole magnesium 40 mg 40 mg PO BID 03/25/19 05/22/24 capsule,delayed release (Nexium) prednisone 5 mg tablet 5 mg PO QAM 03/25/19 05/22/24 warfarin 5 mg tablet 2.5 mg PO [id number] 03/25/19 05/22/24 ferrous sulfate 325 mg (65 mg 325 mg PO QAM 04/25/21 05/22/24 iron) tablet levothyroxine 125 mcg tablet 125 mcg PO QAM 01/23/24 05/22/24 spironolactone 25 mg tablet 12.5 mg PO QAM 01/23/24 05/22/24 tamsulosin 0.4 mg capsule 0.4 mg PO HS freqency 01/23/24 05/22/24 zolpidem 5 mg tablet 2.5 mg PO HS PRN restless leg 01/23/24 05/22/24 syndrome cholecalciferol (vitamin D3) 25 25 mcg PO QAM 03/31/24 05/22/24 mcg (1,000 unit) tablet (Vitamin D3) cyanocobalamin (vitamin B-12) 1,000 mcg PO QAM 03/31/24 05/22/24 1,000 mcg tablet (Vitamin B-12) rosuvastatin 10 mg tablet 10 mg PO QPM 05/18/24 05/22/24 furosemide 20 mg tablet (Lasix) 20 - 40 mg PO UD 05/22/24 05/22/24 magnesium 250 mg tablet 250 mg PO QDL 05/22/24 05/22/24 Previous Rx's Medication Instructions Recorded peg 3350-sod sulf,yggos-lbp-mjr See Rx Instructions PO .COMPLEX #2 05/19/24 178.7-7.3-0.5-1.12-0.9 gram oral mL soln (Suflave) Results & Data (ED) Vital Signs Vital Signs - 24 hr 05/27/24 20:55 05/27/24 22:06 05/27/24 22:42 Temperature 36.5 C Temperature Source Temporal Artery Scan Pulse Rate 80 76 Respiratory Rate 16 Blood Pressure 102/55 L Blood Pressure Mean 70 Pulse Oximetry 98 Oxygen Delivery Method Room Air Room Air Sepsis Recent Fever Within 48 Hours No Sepsis New/Unexplained Change in Mental Status No Sepsis Action Taken by Nursing No Action Required Laboratory Data 05/27/24 21:31 05/27/24 21:31 Lab Results 05/27/24 Range/Units 21:31 WBC 5.92 (4.8-10.8) K/ul RBC 2.94 L (4.70-6.10) M/uL Hgb 7.5 L (14.0-18.0) g/dl Hct 26.1 L (42.0-52.0) % MCV 88.8 (80.0-100.0) fL MCH 25.5 (25.0-34.0) pg MCHC 28.7 L (32.0-36.0) g/dL RDW Std Deviation 57.4 H (36.4-46.3) fL RDW Coeff of Humberto 17.8 H (11.5-14.5) % Plt Count 153 (130-400) K/uL MPV 11.1 (9.4-12.4) fL Immature Gran % (Auto) 0.7 % Neut % (Auto) 86.3 % Lymph % (Auto) 5.4 % [place] % (Auto) 7.1 % Eos % (Auto) 0.2 % Baso % (Auto) 0.3 % Neut # (Auto) 5.11 (1.40-6.50) K/uL Lymph # (Auto) 0.32 L (1.20-3.40) K/uL [place] # (Auto) 0.42 (0.11-0.59) K/uL Eos # (Auto) 0.01 (0.00-0.50) K/uL Baso # (Auto) 0.02 (0.00-0.20) K/uL Immature Gran # (Auto) 0.04 (0.01-0.20) K/uL Poikilocytosis Present Microcytosis Present Tear Drop Cells 2+ Sodium 133 L (136-145) mmol/L Potassium 4.2 (3.5-5.1) mmol/L Chloride 95 L (98-107) mmol/L Carbon Dioxide 29 (21-32) mmol/L Anion Gap 9 (3-11) BUN 55 H (6-23) mg/dl Creatinine 2.63 H (0.6-1.4) mg/dl Est Cr Clr Drug Dosing 17.2 ml/min Est GFR ( Amer) 24.3 ml/min Est GFR (Non-Af Amer) 20.9 ml/min BUN/Creatinine Ratio 20.9 H (10-20) Glucose 137 H (70-99(Fasting)) mg/dl Lactate 2.3 H* (0.4-2.0) mmol/L Calcium 9.3 (8.6-10.3) mg/dl Total Bilirubin 1.1 H (0.2-1.0) mg/dl AST 16 (13-39) U/L ALT 8 (7-52) U/L Alkaline Phosphatase 86 (34-104) U/L Total Protein 6.5 (6.0-8.3) gm/dl Albumin 3.6 (3.4-5.0) gm/dl Globulin 2.9 (2.5-4.0) gm/dl Albumin/Globulin Ratio 1.2 (0.9-2) Procalcitonin 0.09 (0-0.5) ng/ml Administered Medications Vancomycin HCl 1,500 mg/ (Sodium Chloride) 530 mls @ 200 mls/hr IV NOW ONE Stop: 05/27/24 23:57 Last Admin: 05/27/24 22:37 Dose: 200 mls/hr Documented By: DENITA Discontinued Medications Sodium Chloride (Nss) 1,000 mls @ 999 mls/hr IV .Q1H1M ONE Stop: 05/27/24 22:19 Last Admin: 05/27/24 22:06 Dose: 999 mls/hr Documented By: DENITA Discharge Plan Visit Data Chief Complaint: Infection Stated Complaint: CELLULITIS/INFECTION, LT LEG ED Provider: Brenda Aguila Discharge Problem: Cellulitis of left leg, Acute kidney injury superimposed on CKD, Elevated lactic acid level Forms Stand Alone Forms: My [facility] Prescriptions Prescriptions: No Action Suflave 178.7-7.3-0.5 gram recon soln See Rx Instructions PO .COMPLEX Qty: 2 0RF Rx Instructions: orally; TAKE FIRST DOSE AT 6 PM AND SECOND DOSE 6 HOURS PRIOR TO PROCEDURE BIN: [id number] PCN: [id number] GROUP: [id number] ferrous sulfate 325 mg (65 mg iron) tablet 325 mg PO QAM prednisone 5 mg Tablet 5 mg PO QAM esomeprazole magnesium [Nexium] 40 mg Capsule,Delayed Release(Dr/Ec) 40 mg PO BID warfarin 5 mg Tablet 2.5 mg PO [id number] Patient Comments: no dose on saturday at current, all other days of week 2.5 mg Rx Instructions: 2.5mg , skip Saturday dose per MTM albuterol sulfate 90 mcg/actuation Hfa Aerosol Inhaler 2 puff INHALATION UD PRN (Reason: asthma) coenzyme Q10 [CoQ-10] 100 mg Capsule 100 mg PO QAM cyanocobalamin (vitamin B-12) [Vitamin B-12] 1,000 mcg Tablet 1,000 mcg PO QAM cholecalciferol (vitamin D3) [Vitamin D3] 25 mcg (1,000 unit) Tablet 25 mcg PO QAM furosemide [Lasix] 20 mg Tablet 20 - 40 mg PO UD Patient Comments: 20-40 mg as directed 3 x per week magnesium 250 mg Tablet 250 mg PO QDL rosuvastatin 10 mg Tablet 10 mg PO QPM spironolactone 25 mg tablet 12.5 mg PO QAM levothyroxine 125 mcg tablet 125 mcg PO QAM zolpidem 5 mg tablet 2.5 mg PO HS PRN (Reason: restless leg syndrome) tamsulosin 0.4 mg capsule 0.4 mg PO HS Referrals Referrals: Bell Mcqueen MD [Primary Care Provider] -
[2024-05-27 22:01] LABS: Basophils # (auto) 0.02 K/uL (0.00-0.20); Basophils % (auto) 0.3 %; Eosinophils # (auto) 0.01 K/uL (0.00-0.50); Eosinophils % (auto) 0.2 %; Hematocrit (blood only) 26.1 % (42.0-52.0); Hemoglobin 7.5 g/dl (14.0-18.0); Immature Granulocytes # (auto) 0.04 K/uL (0.01-0.20); Immature Granulocytes % (auto) 0.7 %; Lymphocytes # (auto) 0.32 K/uL (1.20-3.40); Lymphocytes % (auto) 5.4 %; Mean Corpuscular Hemoglobin 25.5 pg (25.0-34.0); Mean Corpuscular Hgb Conc 28.7 g/dL (32.0-36.0); Mean Corpuscular Volume 88.8 fL (80.0-100.0); Mean Platelet Volume 11.1 fL (9.4-12.4); Monocytes # (auto) 0.42 K/uL (0.11-0.59); Monocytes % (auto) 7.1 %; Neutrophils # (auto) 5.11 K/uL (1.40-6.50); Neutrophils % (auto) 86.3 %; Platelet Count 153 K/uL (130-400); RDW Coefficient of Variation 17.8 % (11.5-14.5); RDW Standard Deviation 57.4 fL (36.4-46.3); Red Blood Count 2.94 M/uL (4.70-6.10); White Blood Count 5.92 K/ul (4.8-10.8)
[2024-05-27] MEDS: SODIUM CHLORIDE 0.9% 1,000 ML IV ONE ×2 (22:06→23:53)
[2024-05-27 22:17] LABS: Albumin Globulin Ratio 1.2 (0.9-2); Albumin Level 3.6 gm/dl (3.4-5.0); BUN Creatinine Ratio 20.9 (10-20); Bilirubin,Total 1.1 mg/dl (0.2-1.0); Calcium 9.3 mg/dl (8.6-10.3); Creatinine Clr Calc Pharmacy 17.2 ml/min; Est GFR (African American) 24.3 ml/min; Est GFR (Non-African American) 20.9 ml/min; Globulin 2.9 gm/dl (2.5-4.0); Potassium 4.2 mmol/L (3.5-5.1); Total Protein 6.5 gm/dl (6.0-8.3)
[2024-05-27 22:20] LABS: Microcytosis Present; Poikilocytosis Present; Tear Drop Cells 2+
[2024-05-27] MEDS: VANCOMYCIN HCL 1,500 MG in SODIUM CHLORIDE 0.9% 500 ML IV ONE (22:37)
[2024-05-27 22:52] LABS: Magnesium 2.1 mg/dl (1.7-2.4)
[2024-05-27 23:00] LABS: Troponin I High Sensitivity 30.2 pg/ml (0-20)
[2024-05-27 23:15] LABS: INR 2.2 (0.9-1.1); Prothrombin Time 22.5 Seconds (9.0-12.0)
[2024-05-27] MEDS ORDERED: HEPARIN 100 UNIT/ML 5ML FLUSH FLUSH PRN (23:51)
[2024-05-27] MEDS: CEFEPIME 2,000 MG/20 ML VIAL IV STA (23:53)
[2024-05-28 00:10] LABS: Hematocrit (blood only) 23.8 % (42.0-52.0); Hemoglobin 6.9 g/dl (14.0-18.0)
[2024-05-28 00:17] LABS: BUN Creatinine Ratio 22.3 (10-20); Calcium 8.5 mg/dl (8.6-10.3); Creatinine Clr Calc Pharmacy 19.4 ml/min; Est GFR (African American) 28.1 ml/min; Est GFR (Non-African American) 24.2 ml/min; Potassium 4.1 mmol/L (3.5-5.1)
--- NOTE | 2024-05-28 00:20 | History & Physical Report ---
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, INR therapeutic Multifactorial: Scant bleeding from left leg wound Intermittent hematuria, hx bladder cancer status post surgery/chemoradiation Troponin elevation secondary to worsening kidney dysfunction, patient without CP or unusual SOB symptoms chronic diastolic heart failure (EF 55 to 60%, TTE 2023), equivocal volume status, patient clinically dry with some congestion and x-ray valvular heart disease (moderate MS, mild MR/TR) history of bioprosthetic AVR, mitral valve repair as per records hx PVD hypertension, BP on the lower side restrictive lung disease as per records pulmonary hypertension hypothyroidism, euthyroid as of recent outpatient TSH colon cancer as per records History of prostate cancer as per records Steroid-induced hyperglycemia rule out DM Medical telemetry CS Daptomycin, Cefepime, Flagyl CT left lower extremity rule out abscess Baseline UA, monitor creatinine response to gentle IV hydration Appropriate to hold home diuretic and spironolactone and to creatinine back to baseline Decadron 1 dose now for possible adrenal insufficiency given hypotension Follow H&H, transfuse PRBC if hemoglobin less than 8 and or for symptomatic anemia (hx PVD as per records) Check hemoglobin A1c DVT prophylaxis. Coumadin INR goal between 2 and 3 once H&H stable and no bleeding on CT Full code Patient requesting updates providers. Ms. Mariana Robles, contact #[phone]. Text document was generated using [employer] voice recognition software. It may contain grammatical or spelling errors. Kindly contact undersigned for clarification of any documentation item in question. ADDENDUM : Made aware of LLE CT result Diffuse soft tissue edema as above. Nonspecific. Differential diagnosis includes cellulitis/necrotizing fasciitis. No obvious discrete fluid collection although somewhat limited evaluation on noncontrast. Clarified "necrotizing fasciitis" read with Dr. Boss (teleradiologist). Nonspecific leg edema on CT, no soft tissue gas findings on CT characteristic of necrotizing fasciitis as per discussion. Monitor response to antibiotic Rx. Orthopedics consult if with worsening swelling. Patient known to [facility] [place] [facility] (Dr. Bautista). History of Present Illness Chief Complaint: Worsening left leg swelling Primary Care Provider: Bell Mcqueen MD History obtained from patient, family, and records. 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 Patient developed delirium during confinement. 2 weeks ago, patient sustained abrasion left lower leg from metallic part of picnic table. Subsequent left lower leg swelling. Patient consulted ER last May 18 for worsening left leg swelling and confusion. Patient discharged on doxycycline course. PCP later changed medication to Keflex and Bactrim because of minimal improvement. Scant bleeding from left leg wound as per patient. Usual occasional hematuria, dark stools attributed to iron without abdominal pain as per patient. No chest pain or unusual SOB. Patient brought to ER by for worsening symptoms. Lowest SBP of 90s documented at the ER. Medical History as above Surgical History : Urologic procedures, cataract surgery, partial colectomy for tubulovillous adenoma, hernia repair, tonsillectomy/adenectomy, bioprosthetic AVR, ectropion surgery Family History : Heart disease, DM, esophageal cancer non-smoker, Personal/Social history : No EtOH intake, retired [employer] employee Allergies Allergy/AdvReac Type Severity Reaction Status Date / Time Penicillins Allergy Unknown RASH/EL-ORBITAL Verified 05/28/24 00:44 EDEMA olanzapine [From Zyprexa] AdvReac Severe Agitated Verified 05/28/24 00:44 Home Medications Medication Instructions Recorded Confirmed Type esomeprazole magnesium 40 mg 40 mg PO BID 03/25/19 05/28/24 History capsule,delayed release (Nexium) prednisone 5 mg tablet 5 mg PO QAM 03/25/19 05/27/24 History warfarin 5 mg tablet 2.5 mg PO [id number] 03/25/19 05/28/24 History ferrous sulfate 325 mg (65 mg 325 mg PO QAM 04/25/21 05/28/24 History iron) tablet levothyroxine 125 mcg tablet 125 mcg PO DAILYBB 01/23/24 05/28/24 History spironolactone 25 mg tablet 12.5 mg PO QAM 01/23/24 05/27/24 History tamsulosin 0.4 mg capsule 0.4 mg PO QAM 01/23/24 05/27/24 History zolpidem 5 mg tablet 5 mg PO HS PRN restless leg 01/23/24 05/28/24 History syndrome cholecalciferol (vitamin D3) 25 25 mcg PO QAM 03/31/24 05/28/24 History mcg (1,000 unit) tablet (Vitamin D3) cyanocobalamin (vitamin B-12) 1,000 mcg PO QAM 03/31/24 05/28/24 History 1,000 mcg tablet (Vitamin B-12) rosuvastatin 10 mg tablet 10 mg PO QPM 05/18/24 05/28/24 History peg 3350-sod sulf,[id number] See Rx Instructions PO .COMPLEX #2 05/19/24 05/28/24 Rx 178.7-7.3-0.5-1.12-0.9 gram oral mL soln (Suflave) cephalexin 500 mg capsule 500 mg PO AMHS 05/27/24 05/27/24 History sulfamethoxazole 800 1 tab PO AMHS 05/27/24 05/27/24 History mg-trimethoprim 160 mg tablet torsemide 100 mg tablet 100 mg PO .DAILY/UD 05/27/24 05/27/24 History Past Med/Surg History Problem List (Updated 05/28/24 @ 11:08 by Sushil Hutchison DO) Acute on chronic blood loss anemia Elevated lactic acid level (Acute) Acute kidney injury superimposed on CKD (Acute) Cellulitis of left leg (Acute) Cellulitis (Acute) Anemia Heme positive stool Epididymitis Persistent atrial fibrillation Acute on chronic diastolic CHF (congestive heart failure) Weakness (Acute) AMS (altered mental status) (Acute) CHF (congestive heart failure) (Acute) Acute metabolic encephalopathy Nocturnal hypoxemia Acute kidney injury superimposed on CKD Acute decompensated heart failure Testicular discomfort (Acute) Spermatocele of epididymis, single (Chronic) Community acquired pneumonia (Acute) Congestive heart failure (Acute) Moderate mitral stenosis Pneumonia Mitral stenosis and aortic insufficiency Pulmonary edema cardiac cause RSV (respiratory syncytial virus infection) Metabolic acidosis Acute respiratory failure with hypoxia and hypercarbia Encounter for pre-operative examination Lumbar spondylosis Low back pain Bladder cancer Pacemaker Asthma Chronic steroid use Atrial fibrillation DX 2003 - ON WARFAR[facility]; follows with Dr. Rainey Status post mitral valve repair Status post aortic valve replacement "bioprosthetic" CKD (chronic kidney disease), stage III History of prostate cancer "had elevated PSA with + biopsy, but repeat biopsies and subsequent PSA's improved" On 11/18/16 10:00 Randy Gilbert wrote "2007" Osteoarthritis Medical History (Updated 05/28/24 @ 11:08 by Sushil Hutchison, ) Enlarged prostate Elevated troponin level (05/18/24) notes elevated troponin level ad mn ed visit. Reports she did message cardiology regarding and no response as of current. Anemia reports iron deficiency anemia. Asthma not sure on official dx details. History of respiratory failure (12/2023) History of encephalopathy (03/2024) Hx of bladder cancer (05/2021) TURBT, chemo + radiation Nocturnal hypoxemia oxygen prn 2L ELIM [place] (hard of hearing) High cholesterol History of elevated PSA Osteoarthritis CKD (chronic kidney disease), stage III History of pulmonary edema History of pericarditis (2022) Moderate mitral stenosis "some calcification there" - told valve was working okay. History of RSV infection (12/2023) and hx respiratory failure Dec 2023 History of pneumonia (12/2023) Hypothyroid Persistent atrial fibrillation History of CHF (congestive heart failure) (03/2024) Cellulitis dx 05/18/24 left leg - mt ed. Hematuria current: messaged urology regarding. Reports was told do colonoscopy/egd first then will follow up. Hx cystoscopy march 2024 and was clear. 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 History of atrial flutter Restless legs syndrome Dyslipidemia Carotid artery disease pt is unsure about this. Nothing has ever been talked about regarding. Spinal stenosis of lumbar region History of paroxysmal supraventricular tachycardia BPH (benign prostatic hypertrophy) Diverticular disease of colon COPD (chronic obstructive pulmonary disease) pt not sure about official dx of. Hypertension Surgical History (Updated 05/22/24 @ 14:52 by Cristian Hogue RN) History of aortic valve replacement (2003) History of mitral valve repair (2003) [facility]. History of cardiac radiofrequency ablation x2 most recent approx 2013. History of right cataract surgery History of left cataract surgery Pacemaker TACHY-KURT SYNDROME. ALSO HX OF A-FIB. LAST CHECKED within 2023 - [facility] History of bladder surgery TURBT 05/29/2021 [facility] History of esophagogastroduodenoscopy (EGD) MULTIPLE History of tonsillectomy History of total knee replacement LEFT KNEE History of herniorrhaphy History of surgery MOHS PROCEDURE ON FACE History of colonoscopy History of bowel resection S/T DIVERTICULITIS History of arthroscopy B/L SHOULDERS Status post inguinal hernia repair Family History Brother Diabetes Cancer Esophageal Cancer Mother Colorectal cancer Lung cancer Social History Smoking Status: Never smoker Tobacco Type: Smokeless Tobacco (Dip or Chew) Cigarettes Per Day: 0; Second Hand Exposure: No; Do You Dip or Chew Tobacco: Yes (1 can lasts a few days/advised); Hx Alcohol Use: No Hx Substance Use: No Preferred Language: Sammarinese Communication Ability: Effective Communication Ability Comment: pt is [place], pt does phone interview. Visual Impairment: Limited Hearing Ability: Hard of Hearing Etiology Teacher Required: No Beliefs That Will Affect Care: None marital status: Current Living Situation: Spouse Current Living Situation Comment: home with current occupational status: retired Feels Safe at Home: Yes Diet: regular caffeine: No during the past year weight has: remained stable Physical Activity Frequency: Other Physical Activity Frequency Comment: "Does alot of yard work" Assistive Devices: Cane, Glasses and Hearing Aid - Bilateral Review of Systems Review of Systems: As per HPI, all other systems reviewed and negative Physical Exam Physical Exam: GENERAL: Comfortable, slightly hard of hearing, no respiratory distress SKIN: Pallor, warm HEENT: Bespectacled, pale palpebral conjunctivae, no ptosis, dry buccal mucosa NECK : Supple, no tenderness CHEST : CTA, no tenderness HEART : Irregular, systolic murmur ABDOMEN: Some distention, nontender EXTREMITIES : Tender LLE induration with dressing noted, no other conspicuous deformities noted NEUROLOGIC : Coherent, no facial asymmetry, slightly hard of hearing, no other gross focality Results & Data Results & Data Vital Signs (Past 12 Hours) Vital Signs Temp Pulse Pulse Resp BP BP Pulse Ox 05/27/24 23:58 80 16 110/62 93 05/27/24 22:42 05/27/24 22:06 76 05/27/24 20:55 36.5 C 80 16 102/55 L 98 O2 Del Method 05/27/24 23:58 Room Air 05/27/24 22:42 Room Air 05/27/24 22:06 05/27/24 20:55 Room Air Laboratory Results Laboratory Results WBC 5.92 K/ul (4.8-10.8) 05/27/24 21:31 RBC 2.94 M/uL (4.70-6.10) L 05/27/24 21:31 Hgb 6.9 g/dl (14.0-18.0) L* 05/27/24 23:48 Hct 23.8 % (42.0-52.0) L 05/27/24 23:48 MCV 88.8 fL (80.0-100.0) 05/27/24 21:31 MCH 25.5 pg (25.0-34.0) 05/27/24 21: MCHC 28.7 g/dL (32.0-36.0) L 05/27/24 21:31 RDW Std Deviation 57.4 fL (36.4-46.3) H 05/27/24 21:31 RDW Coeff of Humberto 17.8 % (11.5-14.5) H 05/27/24 21: Plt Count 153 K/uL (130-400) 05/27/24 21:31 MPV 11.1 fL (9.4-12.4) 05/27/24 21:31 Immature Gran % (Auto) 0.7 % 05/27/24 21: Neut % (Auto) 86.3 % 05/27/24: Lymph % (Auto) 5.4 % 05/27/24 21:31 [place] % (Auto) 7.1 % 05/27/24 21: Eos % (Auto) 0.2 % 05/27/24 21:31 Baso % (Auto) 0.3 % 05/27/24 21:31 Neut # (Auto) 5.11 K/uL (1.40-6.50) 05/27/24 21: Lymph # (Auto) 0.32 K/uL (1.20-3.40) L 05/27/24 21:31 [place] # (Auto) 0.42 K/uL (0.11-0.59) 05/27/24 21: Eos # (Auto) 0.01 K/uL (0.00-0.50) 05/27/24 21: Baso # (Auto) 0.02 K/uL (0.00-0.20) 05/27/24 21: Immature Gran # (Auto) 0.04 K/uL (0.01-0.20) 05/27/24 21:31 Poikilocytosis Present 05/27/24 21:31 Microcytosis Present 05/27/24 21:31 Tear Drop Cells 2+ 05/27/24 21: PT 22.5 Seconds (9.0-12.0) H 05/27/24 21:31 INR 2.2 (0.9-1.1) H 05/27/24 21:31 Sodium 133 mmol/L (136-145) L 05/27/24 23:48 Potassium 4.1 mmol/L (3.5-5.1) 05/27/24 23:48 Chloride 98 mmol/L (98-107) 05/27/24 23:48 Carbon Dioxide 28 mmol/L (21-32) 05/27/24 23:48 Anion Gap 7 (3-11) 05/27/24 23:48 BUN 52 mg/dl (6-23) H 05/27/24 23:48 Creatinine 2.33 mg/dl (0.6-1.4) H D 05/27/24 23:48 Est Cr Clr Drug Dosing 19.4 ml/min 05/27/24 23:48 Est GFR ( Amer) 28.1 ml/min 05/27/24 23:48 Est GFR (Non-Af Amer) 24.2 ml/min 05/27/24 23:48 BUN/Creatinine Ratio 22.3 (10-20) H 05/27/24 23:48 Glucose 111 mg/dl (70-99(Fasting)) H 05/27/24 23:48 Lactate 1.1 mmol/L (0.4-2.0) 05/27/24 23:48 Calcium 8.5 mg/dl (8.6-10.3) L 05/27/24 23:48 Magnesium 2.1 mg/dl (1.7-2.4) 05/27/24 21:31 Total Bilirubin 1.1 mg/dl (0.2-1.0) H 05/27/24 21:31 AST 16 U/L (13-39) 05/27/24 21:31 ALT 8 U/L (7-52) 05/27/24 21:31 Alkaline Phosphatase 86 U/L (34-104) 05/27/24 21:31 Troponin I High Sens 30.2 pg/ml (0-20) H 05/27/24 21:31 Total Protein 6.5 gm/dl (6.0-8.3) 05/27/24 21:31 Albumin 3.6 gm/dl (3.4-5.0) 05/27/24 21:31 Globulin 2.9 gm/dl (2.5-4.0) 05/27/24 21:31 Albumin/Globulin Ratio 1.2 (0.9-2) 05/27/24 21:31 Procalcitonin 0.09 ng/ml (0-0.5) 05/27/24 21:31 Diagnostic Findings Chest x-ray as per my interpretation cardiomegaly, minimal congestion EKG as per my interpretation : Rate 80, A-fib, LAD, LSB, LVH, T wave inversion anterolateral leads, T wave abnormalities, inferior leads
[2024-05-28] MEDS ORDERED: PROMETHAZINE HCL 6.25 MG in SODIUM CHLORIDE 0.9% 50 ML IV PRN (00:23)
[2024-05-28] MEDS ORDERED: traMADol HCL 50 MG TABLET PO PRN (00:23)
[2024-05-28] MEDS ORDERED: SODIUM CHLORIDE 0.9% 250 ML IV PRN (00:24)
--- NOTE | 2024-05-28 01:22 | Ultrasound Report ---
Exam(s): US VENOUS LEFT LOWER EXTREMITY EXAM: US Duplex Left Lower Extremity Veins CLINICAL HISTORY: Reason for exam: LLE swelling. TECHNIQUE: Real-time duplex ultrasound scan of the left lower extremity veins integrating B-mode two-dimensional vascular structure, Doppler spectral analysis, color flow Doppler imaging and compression. COMPARISON: 05/18/2024 FINDINGS: Deep veins: Unremarkable. No DVT in the visualized common femoral, femoral, proximal deep femoral or popliteal veins. The veins demonstrate normal color flow, are normally compressible, with normal phasic flow and/or augmentation response. Superficial veins: Unremarkable. No thrombus in the visualized great saphenous vein. Soft tissues: Calf edema. No popliteal cyst. IMPRESSION: No DVT in the left lower extremity. Electronically signed by: Trenton Boss M.D. 05/28/24 01:20 AM
[2024-05-28 01:29] LABS: Appearance Urine Clear (Clear); Bacteria Urine Automated None Seen (None Seen); Bilirubin Urine Negative (Negative); Blood Urine 2+ (Negative); Color Urine Yellow; Epithelial Cell Urine Auto 0-2 /hpf (0-2); Glucose Urine UA Negative (Negative); Ketones Urine Negative (Negative); Leukocyte Esterase Urine Negative (Negative); Nitrite Urine Negative (Negative); Protein Urine Trace (Negative); RBC Urine Automated >20 /hpf (0-2); Urobilinogen Urine Negative (Negative); WBC Urine Automated 0-5 /hpf (0-5); pH Urine 5.5 (4.5-7.5)
[2024-05-28] MEDS: ACETAMINOPHEN 325 MG TAB PO STA (01:45)
--- NOTE | 2024-05-28 02:00 | CT Scan Report ---
Exam(s): CT EXTREMITY LEFT LOWER Without Contrast EXAM: CT Left Lower Extremity Without Intravenous Contrast CLINICAL HISTORY: Reason for exam: swelling ro abscess. TECHNIQUE: Axial computed tomography images of the left lower extremity without intravenous contrast. CTDI is 24.9 mGy and DLP is 1230.67 mGy-cm. Automated exposure control was utilized for the study. A dose lowering technique was utilized adhering to the principles of ALARA. COMPARISON: No relevant prior studies available. FINDINGS: Bones/joints: Left knee arthroplasty. No acute fracture. No dislocation. Soft tissues: Diffuse soft tissue swelling throughout the visualized left lower extremity from the level of the distal femur to the foot. Associated skin thickening. Soft tissue swelling around the musculature, notably in the posterior compartment medially. No soft tissue gas. No discrete fluid collection although somewhat limited evaluation on noncontrast study. Vasculature: Marked diffuse atherosclerotic calcifications. IMPRESSION: Diffuse soft tissue edema as above. Nonspecific. Differential diagnosis includes cellulitis/necrotizing fasciitis. No obvious discrete fluid collection although somewhat limited evaluation on noncontrast. Communications: Verify Receipt Electronically signed by: Trenton Boss M.D. 05/28/24 01:59 AM
[2024-05-28] MEDS: DEXAMETHASONE SOD INJ 4 MG/ML VIAL IV STA (02:20)
[2024-05-28] MEDS: SODIUM CHLORIDE 0.9% 1,000 ML IV ONE (02:26)
[2024-05-28] MEDS: metroNIDAZOLE 500 MG/100 ML BAG IV SCH (03:07)
[2024-05-28] MEDS: LEVOTHYROXINE SODIUM 125 MCG TABLET PO SCH (06:34)
[2024-05-28] MEDS: DAPTOmycin 250 MG in SYRINGE 0 ML IV SCH (06:34)
--- NOTE | 2024-05-28 07:18 | XRay Report ---
SINGLE VIEW CHEST CLINICAL HISTORY: Renal insufficiency.. FINDINGS: An AP, portable, supine chest radiograph is compared to study dated 05/18/2024. Correlation i s made with chest CT dated 04/01/2024. The examination is degraded by portable technique and apical lo rdotic positioning. The patient is status post midline sternotomy and cardiac valve surgery. A single -lead cardiac pacemaker and a right internal jugular central venous infusion port are unchanged in po sition. The heart is enlarged noting atherosclerotic calcification of the thoracic aorta. There is pu lmonary vascular congestion. Small pleural effusions are suspected. Calcified pleural plaques are unc hanged. No pneumothorax is seen. The skeletal structures are osteopenic. There are chronic/healed rig ht-sided rib fractures. Degenerative change is noted in the shoulders and spine. IMPRESSION: 1. Cardiomegaly and cardiac pacemaker with pulmonary vascular congestion. 2. Suspect small pleural effusions. ACT 112: Negative or not required by law. Electronically signed by: Caleb Sams M.D. 05/28/2024 7:16 AM
[2024-05-28 08:06] LABS: Estimated Average Glucose 88 mg/dl; Hemoglobin A1C 4.7 % (4.5-5.6)
[2024-05-28] MEDS: PANTOprazole 40 MG TAB PO SCH (08:14)
[2024-05-28] MEDS: predniSONE 5 MG TAB PO SCH (08:14)
[2024-05-28] MEDS: FERROUS SULFATE 325 MG TAB PO SCH (08:15)
[2024-05-28] MEDS: TAMSULOSIN HCL 0.4 MG CAP PO SCH ×2 (08:17→22:39)
[2024-05-28 08:25] LABS: Hematocrit (blood only) 27.6 % (42.0-52.0); Hemoglobin 8.2 g/dl (14.0-18.0); Mean Corpuscular Hemoglobin 26.1 pg (25.0-34.0); Mean Corpuscular Hgb Conc 29.7 g/dL (32.0-36.0); Mean Corpuscular Volume 87.9 fL (80.0-100.0); Mean Platelet Volume 11.6 fL (9.4-12.4); Platelet Count 117 K/uL (130-400); RDW Standard Deviation 54.3 fL (36.4-46.3); Red Blood Count 3.14 M/uL (4.70-6.10); White Blood Count 5.31 K/ul (4.8-10.8)
[2024-05-28 08:45] LABS: INR 2.2 (0.9-1.1); Prothrombin Time 22.4 Seconds (9.0-12.0)
[2024-05-28 08:49] LABS: BUN Creatinine Ratio 23.7 (10-20); Basophils # (auto) 0.01 K/uL (0.00-0.20); Basophils % (auto) 0.2 %; Calcium 7.8 mg/dl (8.6-10.3); Creatinine Clr Calc Pharmacy 21.8 ml/min; Eosinophils # (auto) 0.02 K/uL (0.00-0.50); Eosinophils % (auto) 0.4 %; Est GFR (African American) 32.4 ml/min; Immature Granulocytes # (auto) 0.06 K/uL (0.01-0.20); Immature Granulocytes % (auto) 1.1 %; Lymphocytes # (auto) 0.23 K/uL (1.20-3.40); Lymphocytes % (auto) 4.3 %; Monocytes # (auto) 0.15 K/uL (0.11-0.59); Monocytes % (auto) 2.8 %; Neutrophils # (auto) 4.84 K/uL (1.40-6.50); Neutrophils % (auto) 91.2 %; Potassium 4.3 mmol/L (3.5-5.1)
--- NOTE | 2024-05-28 11:10 | Hospitalist Progress Note ---
Date of Service May 28, 2024 Assessment & Plan (1) Cellulitis of left leg: (2) Acute on chronic blood loss anemia: (3) Acute kidney injury superimposed on CKD: (4) Acute on chronic diastolic CHF (congestive heart failure): (5) Atrial fibrillation: Plan Continue with current antibiotic regimen, seems as though the cellulitis was actually improving it was the edema and weeping that was of concern. Wound care is consulted, patient may benefit greatly from Unna boots Resume torsemide, reduced dose in half, patient still needs some further diuresis Continue monitor hemoglobin, it appears as though they are following his hemoglobin outpatient. Patient just got a Procrit injection yesterday. It seems like the outpatient plan is to give him Procrit and transfusions as needed until he can proceed with colonoscopy. They are continuing his warfarin until he can have this done. Follow labs in a.m. at bedside updated plan of care Admission and Anticipated Discharge Date Admission Date: May 28, 2024 Subjective Patient extremely tired and sleeping when I enter the room. at bedside. reports that his diuretic had been increased over the last couple days due to the fact that he gained a lot of about 8 pounds. This is diuresed off. She states that the redness of the leg actually was starting to improve but it had started to weep serous fluid that was what prompted evaluation in the emergency room. Physical Exam Physical Exam: Constitutional: Alert HEENT: Mucous membranes moist. Lungs: Clear to auscultation, decreased, no wheezes rales or rhonchi CV: S1-S2, regular Abdomen: Soft, nontender, nondistended Extremities: 2+ pitting edema lower extremity, wound on posterior left lower extremity with dry sterile dressing intact Neuro: No focal deficits Psych: Cooperative, normal mood Results & Data Results & Data Vital Signs (Past 12 Hours) Vital Signs Temp Pulse Pulse Resp BP BP Pulse Ox 05/28/24 07:13 65 05/28/24 06:38 36.9 C 64 20 107/72 97 05/28/24 06:15 36.7 C 70 16 121/62 97 05/28/24 05:15 36.6 C 80 16 122/74 97 05/28/24 04:45 36.4 C L 65 18 122/65 97 05/28/24 04:30 36.7 C 68 16 111/70 97 05/28/24 04:14 36.7 C 66 20 116/58 L 97 05/28/24 04:01 36.4 C L 77 20 117/58 L 97 05/28/24 03:40 36.8 C 63 16 108/68 96 05/28/24 03:00 82 16 116/63 99 05/28/24 02:40 36.7 C 81 18 103/55 L 98 05/28/24 02:32 05/28/24 02:10 36.7 C 79 22 113/69 99 05/28/24 01:55 36.8 C 78 18 122/77 100 05/28/24 01:35 36.7 C 80 18 95/46 L 90 05/28/24 01:14 78 20 93/67 L 05/27/24 23:58 80 16 110/62 93 Pulse Ox O2 Del Method O2 Del Method O2 Flow Rate O2 Flow Rate 05/28/24 07:13 05/28/24 06:38 2 05/28/24 06:15 2 05/28/24 05:15 2 05/28/24 04:45 2 05/28/24 04:30 2 05/28/24 04:14 2 05/28/24 04:01 2 05/28/24 03:40 2 05/28/24 03:00 Nasal Cannula 2 05/28/24 02:40 2 05/28/24 02:32 99 Nasal Cannula 2 05/28/24 02:10 2 05/28/24 01:55 2 05/28/24 01:35 2 05/28/24 01:14 Room Air 05/27/24 23:58 Room Air Diagnostic Findings Hemoglobin 8.2, improved INR 2.2 Creatinine 2.0, Improved
--- NOTE | 2024-05-28 13:36 | Electrocardiogram Report ---
Test Reason : Blood Pressure : / mmHG Vent. Rate : 078 BPM Atrial Rate : 000 BPM P-R Int : 000 ms QRS Dur : 118 ms QT Int : 450 ms P-R-T Axes : 000 -59 197 degrees QTc Int : 513 ms Atrial fibrillation with premature ventricular or aberrantly conducted complexes Left anterior fascicular block Left ventricular hypertrophy with QRS widening Prolonged QT Abnormal ECG When compared with ECG of 18-MAY-2024 12:28, Atrial fibrillation has replaced Atrial flutter T wave inversion more evident in Lateral leads Confirmed by Lul Melo ([id number]) on 05/28/2024 1:35:57 PM Referred By: REFERRED SELF Confirmed By:Darci Melo
[2024-05-28] MEDS: TORSEMIDE 100 MG TAB PO SCH (14:33)
--- OUTSIDE RECORDS SUMMARY | 2024-05-28 18:23 | External Medical Summary | Summary of Care ---
Author Name Unknown Organization [facility] Address [address] [place] [address] Phone [phone] Care Team Providers Care Windows Vmware Engineer Name Role Phone Unavailable Primary Care Provider Unavailabl e Encounter Details Date Type Department Care Team (Late st Contact Info) Description 05/18/2024 Result Scan Unspecified Department <No scans attached> Allergies Active Allergy Reactions Criticality Noted Date Comments Penicillins Other (Please comment),Rash High Eyes swell Pollen 05/03/2022 Wound Dressing Adhesive Rash 05/02/2023 Patient reported Olanzapine Neuro complications (Please comment) 04/09/2024 documented as of this encounter (statuses as of 05/26/2024) Medications Medication Sig Dispensed Refills Start Date End Date Status CO Q10 100 MG PO TABS 1 tab once daily Active ZOVIRAX 5 % EX OINT 5 times daily as needed. Active Polyethylene Glycol 3350 17 GM Oral [...] Tablet Take 1 Tablet by mouth daily. Active Vitamin D 25 MCG (1000 UT) Oral Tablet Take 1 Tablet by mouth in the morning. Active Albuterol Sulfate (2.5 MG/3ML) 0.083% Inhalation Nebulization Solution (Proventil)Indica tions:Moderate persistent asthma without complication Inhale 1 Vial via nebulizer every 6 hours as needed for Wheezing. Mix with albuterol 120 mL 5 11/21/2022 Active Ipratropium [place] 0.02 % Inhalation Solution (Atrovent)Indicat ions:Moderate persistent asthma without complication Inhale 2.5 mL via nebulizer in the morning and 2.5 mL at noon and 2.5 mL in the evening and 2.5 mL before bedtime. Mix with albuterol solution. 75 mL 12 11/21/2022 Active Spiriva Respimat 2.5 MCG/ACT Inhalation Aerosol Solution (Tiotropium [place] Monohydrate)Indic ations:Moderate persistent asthma without complication INHALE 2 PUFFS BY MOUTH EVERY DAY 12 g 3 04/30/2023 Active Spironolactone 25 MG Oral Tablet (Aldactone)Indica [...] daily and as directed for weight gain 10/31/2023 Active guaiFENesin ER 600 MG Oral Tablet Extended Release 12 Hour (Humibid LA)Indications:Ac fahad cough Take 1 Tablet by mouth in the morning and 1 Tablet before bedtime. 40 Tablet 11/04/2023 Active Fluticasone Propionate 50 MCG/ACT Nasal Suspension (Flonase)Indicati ons:Acute cough ADMINISTER 1 SPRAY INTO EACH NOSTRIL IN THE MORNING AND 1 SPRAY IN THE EVENING FOR 5 DAYS 16 mL 1 11/19/2023 Active predniSONE 5 MG Oral Tablet (Deltasone) TAKE 1 TABLET BY MOUTH EVERY DAY 90 Tablet 2 12/17/2023 Active Rosuvastatin Calcium 10 MG Oral Tablet (Crestor) TAKE 1 TABLET BY MOUTH EVERY DAY 90 Tablet 1 01/06/2024 Active Benzonatate 100 MG Oral Capsule (Tessalon Perles) Take 1 Capsule by mouth 3 times a day as needed for Cough. 01/28/2024 Active Ferrous Sulfate 325 (65 Fe) [...] bedtime as needed for Sleep. 30 Tablet 05/07/2024 Active Warfarin Sodium 5 MG Oral Tablet (Coumadin)Indicat ions:Pulmonary embolism and infarction (HCC) TAKE 0.5-1 TABLETS BY MOUTH EVERY EVENING. OR TAKE INSTRUCTED BY [facility] 90 Tablet 3 05/07/2024 Active Levothyroxine Sodium 125 MCG Oral Tablet (Levoxyl)Indicati ons:Carcinoma of bladder (HCC) TAKE 1 TAB BY MOUTH DAILY FIRST THING IN THE MORNING AT LEAST 30 MIN PRIOR TO BREAKFAST/OTHER MEDS 90 Tablet 2 05/07/2024 Active Tamsulosin HCl 0.4 MG Oral Capsule (Flomax)Indicatio ns:BPH without obstruction/lower urinary tract symptoms Take 1 Capsule by mouth in the morning. 90 Capsule 3 05/07/2024 Active Enoxaparin Sodium 60 MG/0.6ML Injection Solution Prefilled Syringe (Lovenox) Inject 60mg under the skin daily as directed by anticoagulation clinic for procedure 3 mL 05/18/2024 Active documented as of this encounter (statuses as of 05/26/2024) Active Problems Problem Noted Date Diagnosed Date [...] after steroid. Test performed by Sameer REVERSE UNIT OPERATOR CPFT Pleural plaque due to asbestos exposure Restrictive lung disease Overview: In Check dial performed to assess inhaler technique: 12/15/19 Name of inhalers Albuterol Pass: Yes at 60 L/min and Advair Pass: Yes at 60 L/min. Encouraged to to take deep breath, use aero chamber, and rinse after steroid. Test performed by Sameer REVERSE UNIT OPERATOR CPFT Hx of pulmonary embolus 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 Overview: [place] C0-M6 documented as of this encounter (statuses as of 05/26/2024) Resolved Problems Problem Noted Date Diagnosed Date [...] Malignant neoplasm of prostate 09/23/2008 03/27/2018 Overview: Dewy Rose grade 3 Atrial flutter 09/02/2007 10/16/2007 Herpes simplex virus infection 08/22/2005 04/05/2016 Anal fissure 06/04/2005 10/16/2007 intermediate frame tender current use of ant icoagulant therapy 05/30/2005 [...] as of this encounter (statuses as of 05/26/2024) Immunizations Name Administration Dates Next Due COVID-19 mRNA, LNP-s, No Pre serve, 2-Dose Series (Streamfile) 12/01/2021,01/16/2021,12/26/2020 COVID-19, LNP-s, No Preserve , Ozzy-sucrose, Ages 12+ (Streamfile) 12/01/2021 COVID-19, MRNA-LNP, 23-24, P F, 30 MCG/0.3 mL, 12 YRS AND ABOVE, IM [facility] 09/18/2023 Covid-19, Mrna, Lnp-s, Pf, B ivalent, 30 Mcg, IM, 12 yrs and above ([employer]) 10/09/2022 Pneumococcal Conjugate Vacc, 13 Valent (Prevnar) [...] Department Care Team (Latest Contact Info) Description 4 10:30 AM EDT Immunization/Inject ion Hematology/Onc ology Treatment, [place] [address] [facility] [place] [phone] Nurse, Med [address] [address] 4 6:45 AM EDT Anticoagulation Centralized Clinical Pharmacy Services, Angela Giles [address] [place] [address] [place] [address] [facility], [address] [place] [address] 4 10:20 AM EDT Office Visit Family Medicine [address] [place] [phone] Juancho Romero MD [address] [place] [address] [place] [address] 4 10:00 AM EDT Laboratory Laboratory [facility] State Ziggy Hickman [address] [phone] Park, Lab [place] [address] [address] 4 10:45 AM EDT Immunization/Inject ion Hematology/Onc ology Treatment, [place] [address] [facility] [place] [phone] Nurse, Med [address] [address] 4 6:30 AM EDT Anticoagulation Centralized Clinical Pharmacy Services, Angela Giles [address] [place] [address] [place] [address] [facility], [address] [place] [address] 4 10:00 AM EDT [facility] [place] [address] [place] [phone] Marylou Lab [address] [place] [address] 4 10:30 AM EDT Immunization/Inject ion Hematology/Onc ology Treatment, [place] [address] [facility] [place] [phone] Nurse, Med 4 [facility] [place] [address] 4 10:10 AM EDT Laboratory Laboratory [facility] Marylou [place] [address] [place] [phone] Marylou Lab Scen[address] 200 [facility] [place] [address] 4 10:30 AM EDT Immunization/Inject ion Hematology/Onc ology Treatment, [place] 200 [facility] [place] [phone] Nurse, Med 4 200 [facility] [place] [address] 4 8:40 AM EDT Office Visit Rheumatology [address] [place] [phone] Win Nielsen MD [address] [facility] [place] [address] 4 11:45 AM EDT Hospital Encounter ENDO [facility], Endoscopy Suite, HFAM 1, [address] [place] [address] Domingo Garcia DO [address] [place] [address] 4 11:45 AM EDT - 4 1:00 PM EDT Surgery ENDO [facility], Endoscopy Suite, HFAM 1, [address] [place] [address] Domingo Garcia DO [address] [place] [address] ESOPHAGOGASTRODUODENOSCOPY (EGD), FLEXIBLE, TRANSORAL, DIAGNOSTIC 5 11:20 AM EST Office Visit [address] [phone] Bell Mcqueen MD [address] [place] [address] [place] [address] Scheduled Procedures Name Priority Associated Diagnoses Date/Ti me ESOPHAGOGASTRODUODENOSCOPY ( EGD), FLEXIBLE, TRANSORAL, DIAGNOSTIC Recall Stark's esophagus with dysplasia 08/27/2024 11:45 AM EDT COLONOSCOPY FLEXIBLE PROXIMA L DIAGNOSTIC Recall Stark's esophagus with dysplasia 08/27/2024 11:45 AM EDT Health Maintenance Due Date Last Done Comments Depression Screening 07/12/2021 07/12/2020 CKD PHOS USE SMARTSET 91210 08/21/2022 10/0 02/2021, 07/12/2020, 03/13/2019, Additional history exists *BISPHONATE OR OTHER ACCEPTABLE MEDICATION NEEDED FOR OSTEOPOROSIS (REFER TO SMARTSET #1146) 10/14/2023 COVID-19 Vaccine ( season) 2024 09/18/2023, 10/09/2022, 12/01/2021, Additional history exists Albumin/Creatinine Ratio 04/22/2024 023, 05/24/2022, 03/26/2022, Additional history exists Influenza Vaccine (FLU shot) (#1) 2024 07/31/2023, 10/09/2022, 08/17/2021, Additional history exists TSH 01/20/2025 01/21/2024, 09/19, 08/20/2023, Additional history exists Stark's Esophagus Surveilance 02/26/2025 02/26/2022, 02/26/2022, 07/04/2021, Additional history exists CKD HGB USE SMARTSET 75239 05/25/202505/25, 05/25/2024, 05/18/2024, Additional history exists DXA Scan 07/05/2025 07/05/2023, 10/19, 11/04/2018, Additional history exists DTaP,Tdap,and Td Vaccines (2 - Td or Tdap) 08/19/2027 08/19/2017, 08/20/2008 Pneumococcal Vaccine: 65+ Years Completed 06/23/2015, 05/14/2013, 04/18/2004 Zoster Vaccines Completed 12/02/2020, 08/15/2020 VITAMIN D LEVEL ONCE IN A LIFETIME-USE SMARTSET# 43381 Completed 04/22/2023, 08/28/2021, 07/14/2015 HPV (Gardasil) Vaccine Aged Out No lo nger eligible based on patient's age to complete this topic Hepatitis B Vaccine Aged Out No longe r eligible based on patient's age to complete this topic MENINGOCOCCAL (MENACTRA/MENVEO) Aged Out No longer eligible based on patient's age to complete this topic documented as of this encounter Medical Devices Implanted Type Area Gasoline Dragline Operator Device Identifier Shelf Expiration Date Model / Serial / Lot Power Port 8fr Sngl Lumen Plas - [id number] Implanted:Qty: 1 on 02/22/[address] [facility] CR BARD : PERIPHERAL VASCULAR [id number] 02/15/2023 [id number] / / [id number] documented as of this encounter Procedures Procedure Name Priority Date/Time Associated Diagnosis Comments EKG SCANNED RESULT 05/18/2024 RADIOLOGY SCANNED RESULT 05/18/2024 RADIOLOGY SCANNED RESULT 05/18/2024 documented in this encounter Results * RADIOLOGY SCANNED RESULT (05/18/2024) 05/18/2024 No Physician Data Unknown DIAGNOSTIC RAD IOLOGY SERVICES * RADIOLOGY SCANNED RESULT (05/18/2024) 05/18/2024 No Physician Data Unknown DIAGNOSTIC RAD IOLOGY SERVICES * EKG SCANNED RESULT (05/18/2024) 05/18/2024 No Physician Data Unknown EKG documented in this encounter Advance Directives * Full Code (Latest Code Status on File) Date Activated Date Inactivated Comments 09/03/2007 7:29 AM 09/03/2007 4:02 PM
--- OUTSIDE RECORDS SUMMARY | 2024-05-28 18:23 | External Medical Summary | Summary of Care ---
Author Name Unknown Organization [facility] Address [address] [place] [address] Phone [phone] Care Team Providers Care Gasoline Tester Name Role Phone Unavailable Primary Care Provider Unavailabl e Reason for Visit * Reason Comments Medication Administration Retacrit * Episode Based Medications (Routine) - Authorized Specialty Diagnoses / Procedures Referred By Aaron vines Referred To Contact Diagnoses Carcinoma of bladder (HCC) Iron deficiency anemia, unspecified iron deficiency anemia type Chronic kidney disease, stage 3b (HCC) Procedures MD INJ RETACRIT NON-ESRD USE MD THERAPEUTIC PROPHYLACTIC/DX INJECTION SUBQ/IM MD EPOETIN IVAN, NON-ESRD Ludwig Louis MD [address] [facility] [place] [address] Anc Hem/Onc Dony Hickman DEPT CLOSED - 10/01/23 [address] [place] [phone] Referral ID Status Reason Start Date Expiration Date V isits Requested Visits Authorized [id number] Authorized 02/05/2024 07/22/[phone] Encounter Details Date Type Department Care Team (Late st Contact Info) Description 04/22/2024 9:30 AM EDT Immunization/I njection Hematology/Oncology Treatment, [place] [address] [place] [phone] Nurse, Med 4 [address] [place] [address] Carcinoma of bladder (HCC)*; Iron deficiency anemia, [...] as of this encounter (statuses as of 05/27/2024) Medications Medication Sig Dispensed Refills Start Date [...] albuterol 120 mL 5 3 Active Ipratropium [place] 0.02 % Inhalation Solution (Atrovent)Indicat ions:Moderate persistent asthma without complication Inhale 2.5 mL via nebulizer in the morning and 2.5 mL at noon and 2.5 mL in the evening and 2.5 mL before bedtime. Mix with albuterol solution. 75 mL 12 3 Active Spiriva Respimat 2.5 MCG/ACT Inhalation Aerosol Solution (Tiotropium [place] Monohydrate)Indic ations:Moderate persistent asthma without complication INHALE 2 PUFFS BY MOUTH EVERY DAY 12 g 3 3 Active Spironolactone 25 MG Oral [...] daily and as directed for weight gain 3 Active guaiFENesin ER 600 MG Oral Tablet Extended Release 12 Hour (Humibid [place])Indications:Ac fahad cough Take 1 Tablet by mouth in the morning and 1 Tablet before bedtime. 40 Tablet 3 Active Fluticasone Propionate 50 MCG/ACT Nasal Suspension (Flonase)Indicati ons:Acute cough ADMINISTER 1 SPRAY INTO EACH NOSTRIL IN THE MORNING AND 1 SPRAY IN THE EVENING FOR 5 DAYS 16 mL 1 4 Active predniSONE 5 MG Oral Tablet (Deltasone) TAKE 1 TABLET BY MOUTH EVERY DAY 90 Tablet 2 4 Active Rosuvastatin Calcium 10 MG Oral Tablet (Crestor) TAKE 1 TABLET BY MOUTH EVERY DAY 90 Tablet 1 4 Active Benzonatate 100 MG Oral Capsule (Tessalon Perles) Take 1 Capsule by mouth 3 times a day as needed for Cough. 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 Or take as instructed by the [facility] 90 Tablet 3 3 05/07/20 24 Discontinued Erythromycin 5 MG/GM Ophthalmic Ointment Instill 0.25 Inches into eye at bedtime. 3.5 g 3 4 02/10/20 24 Discontinued(Pat ient preference/disco ntinuation) Levothyroxine Sodium 125 MCG Oral Tablet (Levoxyl)Indicati ons:Carcinoma of bladder (HCC) TAKE 1 TAB BY MOUTH DAILY FIRST THING IN THE MORNING AT LEAST 30 MIN PRIOR TO BREAKFAST/OTHE R MEDS 90 Tablet 4 05/07/20 24 Discontinued Zolpidem Tartrate 5 MG Oral Tablet (Ambien)Indicatio ns:Restless leg syndrome Take 1 Tablet by mouth at bedtime as needed for Sleep. 30 Tablet 4 05/07/20 24 Discontinued(Ref ill) documented as of this encounter (statuses as of 05/27/2024) Active Problems Problem Noted Date Diagnosed Date [...] rinse after steroid. 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 Encouraged to to take deep breath, use aero chamber, and rinse after steroid. Test performed by Sameer UNIVERSITY INTERN CPFT Hx of pulmonary embolus 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 Overview: [place] C0-M6 documented as of this encounter (statuses as of 05/27/2024) Resolved Problems Problem Noted Date Diagnosed Date [...] as of this encounter (statuses as of 05/27/2024) Immunizations Name Administration Dates Next Due COVID-19 mRNA, LNP-s, No Pre serve, 2-Dose Series (MedSolutions) 12/01/2021,01/16/2021,12/26/2020 COVID-19, LNP-s, No Preserve , Ozzy-sucrose, Ages 12+ (MedSolutions) 12/01/2021 COVID-19, MRNA-LNP, 23-24, P F, 30 MCG/0.3 mL, 12 YRS AND ABOVE, IM (Offline Media-Comirnaty) 09/18/2023 Covid-19, Mrna, Lnp-s, Pf, B ivalent, 30 Mcg, IM, 12 yrs and above (MedSolutions) 10/09/2022 Pneumococcal Conjugate Vacc, 13 Valent (Prevnar) [...] Sign Reading Time Taken Comments Blood Pressure 88/50 04/22/2024 9:33 AM EDT Pulse - - Temperature - - Respiratory Rate - - Oxygen Saturation - - Inhaled Oxygen Concentration - - Weight - - Height - - Body Mass Index - - documented in this encounter Nursing Notes * Leana Sears LPN - 04/22/2024 10:23 AM EDT Pt arrived for Retacrit injection. Hgb 8.8. Administered in TONI. Pt tolerated well. BP WNL. To return in one week. Discharged in stable condition. documented in this encounter Plan of Treatment Upcoming Encounters Date Type Department Care Team (Latest Contact Info) Description 4 10:30 AM EDT Immunization/Inject ion Hematology/Onc ology Treatment, [address] [place] [phone] Nurse, Med 4 200 [facility] [place] [address] 4 10:20 AM EDT Office Visit Family [address] [phone] PilJuancho keys MD [address] [place] [address] [place] [address] 4 6:30 AM EDT Anticoagulation Centralized Clinical Pharmacy Services, Angela Giles [address] [place] [address] [place] [address] [place] [address] 4 10:00 AM EDT Laboratory Laboratory [facility] [place] [address] [place] [phone] Marylou Lab [address] [place] [address] 4 10:45 AM EDT Immunization/Inject ion Hematology/Onc ology Treatment, [place] 200 [facility] [place] [phone] Nurse, Med [address] [address] 4 10:00 AM EDT Laboratory Laboratory [facility] [place] [address] [place] [phone] Park, Lab [address] [place] [address] 4 10:30 AM EDT Immunization/Inject ion Hematology/Onc ology Treatment, [place] [facility] [phone] Nurse, Med 4 [address] [place] [address] 4 10:10 AM EDT Laboratory Laboratory [facility] [place] [address] [place] [phone] Marylou, Lab [address] [place] [address] 4 10:30 AM EDT Immunization/Inject ion Hematology/Onc ology Treatment, [place] 200 [facility], [place] [phone] Nurse, Med 4 200 [facility] [place] [address] 4 8:40 AM EDT Office Visit Rheumatology [address] [place] [phone] Win Nielsen MD [address] [place] [address] 4 11:45 AM EDT Hospital Encounter ENDO [facility], Endoscopy Suite, HFAM 1, [address] [place] [address] Domingo Garcia DO [address] [facility], [place] [phone] 4 11:45 AM EDT - 4 1:00 PM EDT Surgery ENDO [facility], Endoscopy Suite, HFAM 1, [address] [place] [address] Domingo Garcia DO [address] [place] [address] ESOPHAGOGASTRODUODENOSCOPY (EGD), FLEXIBLE, TRANSORAL, DIAGNOSTIC 5 11:20 AM EST Office Visit [address] [place] [phone] Bell Mcqueen MD [address] [place] [address] [place] [address] Scheduled Procedures Name Priority Associated Diagnoses Date/Ti me ESOPHAGOGASTRODUODENOSCOPY ( EGD), FLEXIBLE, TRANSORAL, DIAGNOSTIC Recall Stark's esophagus with dysplasia 08/27/2024 11:45 AM EDT COLONOSCOPY FLEXIBLE PROXIMA L DIAGNOSTIC Recall Stark's esophagus with dysplasia 08/27/2024 11:45 AM EDT Health Maintenance Due Date Last Done Comments Depression Screening 07/12/2021 07/12/2020 CKD PHOS USE SMARTSET 19209 08/21/2022 10/0 02/2021, 07/12/2020, 03/13/2019, Additional history [...] Additional history exists CKD HGB USE SMARTSET 23272 05/25/202505/25, 05/25/2024, 05/18/2024, Additional history exists DXA Scan 07/05/2025 07/05/2023, 10/19, 11/04/2018, Additional history exists DTaP,Tdap,and Td Vaccines (2 - Td or Tdap) 08/19/2027 08/19/2017, 08/20/2008 Pneumococcal Vaccine: 65+ Years Completed 06/23/2015, 05/14/2013, 04/18/2004 Zoster Vaccines Completed 12/02/2020, 08/15/2020 VITAMIN D LEVEL ONCE IN A LIFETIME-USE SMARTSET# 36092 Completed 04/22/2023, 08/28/2021, 07/14/2015 HPV (Gardasil) Vaccine Aged Out No lo nger eligible based on patient's age to complete this topic Hepatitis B Vaccine Aged Out No longe r eligible based on patient's age to complete this topic MENINGOCOCCAL (MENACTRA/MENVEO) Aged Out No longer eligible based on patient's age to complete this topic documented as of this encounter Medical Devices Implanted Type Area Mattress And Boxsprings Supervisor Device Identifier Shelf Expiration Date Model / Serial / Lot Power Port 8fr Sngl Lumen Plas - [id number] Implanted:Qty: 1 on 02/22/2022 at [facility] CR BARD : PERIPHERAL VASCULAR [id number] 02/15/2023 [id number] / / [id number] documented as of this encounter Visit Diagnoses Diagnosis Carcinoma of bladder (HCC)- Primary Malignant neoplasm of bladder, part unspecified Iron deficiency anemia, unspecified iron deficiency anemia type Chronic kidney disease, stage 3b (HCC) 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
--- OUTSIDE RECORDS SUMMARY | 2024-05-28 18:23 | External Medical Summary | Summary of Care ---
Author Name Unknown Organization [facility] Address [address] [place] [address] Phone [phone] Care Team Providers Care Percussion Teacher Name Role Phone Unavailable Primary Care Provider Unavailabl e Encounter Details Date Type Department Care Team (Late st Contact Info) Description 05/26/2024 Orders Only Family Medicine [address] [phone] Bell Mcqueen MD [address] [place] [address] [place] [address] Allergies Active Allergy Reactions Criticality Noted [...] Ipratropium [place] 0.02 % Inhalation Solution (Atrovent)Indicat ions:Moderate persistent asthma without complication Inhale 2.5 mL via nebulizer in the morning and 2.5 mL at noon and 2.5 mL in the evening and 2.5 mL before bedtime. Mix with albuterol solution. 75 mL 12 11/21/2022 Active Spiriva Respimat 2.5 MCG/ACT Inhalation Aerosol Solution (Tiotropium [place] Monohydrate)Indic ations:Moderate persistent asthma without complication INHALE [...] EVERY EVENING. OR TAKE INSTRUCTED BY [facility] 90 Tablet 3 05/07/2024 Active [...] clinic for procedure 3 mL 05/18/2024 Active Cephalexin 500 MG Oral Capsule (Keflex)Indicatio ns:Cellulitis of left lower leg Take 1 Capsule by mouth in the morning and 1 Capsule before bedtime. Do all this for 10 days. 20 Capsule 05/25/2024 Active Torsemide 100 MG Oral Tablet (Demadex)Indicati ons:Cellulitis of left lower leg One daily for 3 days and as needed 10 Tablet 05/25/2024 Active Sulfamethoxazole- Trimethoprim 800-160 MG Oral Tablet (Bactrim DS)Indications:Ce llulitis of left lower leg Take 1 Tablet by mouth in the morning and 1 Tablet before bedtime. Do all this for 10 days. Until gone.. 20 Tablet 05/25/2024 Active documented as of this encounter (statuses [...] rinse after steroid. Test performed by Sameer RECREATION LEADER CPFT Pleural plaque due to asbestos exposure Restrictive lung disease Overview: In Check dial performed to assess inhaler technique: 12/15/19 Name of inhalers Albuterol Pass: Yes at 60 L/min and Advair Pass: Yes at 60 L/min. Encouraged to to take deep breath, use aero chamber, and rinse after steroid. Test performed by Sameer RECREATION LEADER CPFT Hx of pulmonary embolus Stark's esophagus [...] mRNA, LNP-s, No Pre serve, 2-Dose Series ([employer]) 12/01/2021,01/16/2021,12/26/2020 COVID-19, LNP-s, No Preserve , Ozzy-sucrose, Ages 12+ ([employer]) 12/01/2021 COVID-19, MRNA-LNP, 23-24, P F, 30 MCG/0.3 mL, 12 YRS AND ABOVE, IM ([employer]) 09/18/2023 Covid-19, Mrna, Lnp-s, Pf, B ivalent, 30 Mcg, IM, 12 yrs and above ([employer]) 10/09/2022 Pneumococcal Conjugate Vacc, 13 Valent (Prevnar) [...] AM EDT Immunization/Inject ion Hematology/Onc ology Treatment, [place] [address] [place] [phone] Nurse, Med 4 200 [facility] [place] [address] 4 6:45 AM EDT Anticoagulation Centralized Clinical Pharmacy Services, Angela Giles [address] [place] [address] [place] [address] [place] [address] 4 10:20 AM EDT Office Visit Family Medicine [address] [place] [phone] Juancho Romero MD [address] [place] [address] [place] [address] 4 10:00 AM EDT Laboratory Laboratory [place] Ziggy [place] [address] [phone] [place], [facility] [address] [address] 4 10:45 AM EDT Immunization/Inject ion Hematology/Onc ology Treatment, [place] [facility] [place] [phone] Nurse, Med [address] [address] 4 6:30 AM EDT Anticoagulation Centralized Clinical Pharmacy Services, Angela Giles [address] [place] [address] [place] [address] Ccps, [address] [place] [address] 4 10:00 AM EDT Laboratory Laboratory [place] Ziggy Over[place] [address] [phone] Marylou Lab Dony [address] [address] 4 10:30 AM EDT Immunization/Inject ion Hematology/Onc ology Treatment, [place] 200 [facility] [place] Calder[place] [phone] Nurse, Med [address] [address] 4 10:10 AM EDT Laboratory Laboratory [place] Ziggy [place] [address] [phone] Kailyn Hickman Scenery [address] [place] [address] 4 10:30 AM EDT Immunization/Inject ion Hematology/Onc ology Treatment, [place] [address] [place] [phone] Nurse, Med 4 [address] [place] [address] 4 8:40 AM EDT Office Visit Rheumatology [address] [place] [phone] Win Nielsen MD [address] [place] [address] [place] [address] 4 11:45 AM EDT Hospital Encounter ENDO [facility], Endoscopy Suite, HFAM 1, [address], [place] [id number] Domingo Garcia DO [address] [place] [address] 4 11:45 AM EDT - 4 1:00 PM EDT Surgery ENDO [facility], Endoscopy Suite, HFAM 1, [address], [place] [phone] Domingo Garcia DO [address] [facility] [place] [address] ESOPHAGOGASTRODUODENOSCOPY (EGD), FLEXIBLE, TRANSORAL, DIAGNOSTIC 5 11:20 AM EST Office Visit Family Medicine [address] [place] [phone] Bell Mcqueen MD [address] [place] [address] [place] [address] Scheduled Procedures Name Priority Associated Diagnoses Date/Ti hi ESOPHAGOGASTRODUODENOSCOPY ( EGD), FLEXIBLE, TRANSORAL, DIAGNOSTIC Recall Stark's esophagus with dysplasia 08/27/2024 11:45 AM EDT COLONOSCOPY FLEXIBLE PROXIMA L DIAGNOSTIC Recall Stark's esophagus with dysplasia 08/27/2024 11:45 AM EDT Health Maintenance Due Date Last Done Comments Depression Screening 07/12/2021 07/12/2020 CKD PHOS USE SMARTSET 80799 08/21/2022 10/0 02/2021, 07/12/2020, 03/13/2019, Additional history [...] Additional history exists CKD HGB USE SMARTSET 56117 05/25/202505/25, 05/25/2024, 05/18/2024, Additional history exists DXA Scan 07/05/2025 07/05/2023, 10/19, 11/04/2018, Additional history exists DTaP,Tdap,and Td Vaccines (2 - Td or Tdap) 08/19/2027 08/19/2017, 08/20/2008 Pneumococcal Vaccine: 65+ Years Completed 06/23/2015, 05/14/2013, 04/18/2004 Zoster Vaccines Completed 12/02/2020, 08/15/2020 VITAMIN D LEVEL ONCE IN A LIFETIME-USE SMARTSET# [id number] Completed 04/22/2023, 08/28/2021, 07/14/2015 HPV (Gardasil) Vaccine Aged Out No lo nger eligible based on patient's age to complete this topic Hepatitis B Vaccine Aged Out No longe r eligible based on patient's age to complete this topic MENINGOCOCCAL (MENACTRA/MENVEO) Aged Out No longer eligible based on patient's age to complete this topic documented as of this encounter Medical Devices Implanted Type Area Mill Operator Head Device Identifier Shelf Expiration Date Model / Serial / Lot Power Port 8fr Sngl Lumen Plas - [id number] Implanted:Qty: 1 on 02/22/2022 at [facility] CR [facility]ARD : PERIPHERAL VASCULAR [id number] 02/15/2023 [id number] / / [id number] documented as of this encounter Procedures Procedure Name Priority Date/Time Associated Diagnosis Comments XR CHEST 1 VIEW Routine 05/18/2024 CHEMISTRY-OUTSIDE Routine 05/18/2024 documented in this encounter Results * (ABNORMAL) CHEMISTRY-OUTSIDE (05/18/2024) Not all results display below - see scan for full detail SCAN INCLUDES [facility]: CBCD, HEPATIC PANEL, BMP, MG, TROP, UA, PT INR, BLOOD CULTURES OUTSIDE LAB (SEE SCANNED REPORT) CREATININE-OUTSI DE LAB 1.58(A) 0.6 - 1.4 MG/DL OUTSIDE LAB (SEE SCANNED REPORT) EGFR-OUTSIDE LAB 38.8 ML/MIN OUT SIDE LAB (SEE SCANNED REPORT) POTASSIUM-OUTSID E LAB 4.5 3.5 - 5.1 MMOL/L OUTSIDE LAB (SEE SCANNED REPORT) GLUCOSE-OUTSIDE LAB 99 70 - 99 MG/DL OUTSIDE LAB (SEE SCANNED REPORT) HOURS FASTING OUTSID E LAB (SEE SCANNED REPORT) TRIGLYCERIDES-OU TSIDE LAB OUTSIDE LAB (SEE SCANNED REPORT) CHOLESTEROL-OUTS TYRESE LAB OUTSIDE LAB (SEE SCANNED REPORT) HDL-OUTSIDE LAB OUTS TYRESE LAB (SEE SCANNED REPORT) CHOL/HDL RATIO-OUTSIDE LAB OUTSIDE LAB (SEE SCANNED REPORT) LDL (CALCULATED)-OUT SIDE LAB OUTSIDE LAB (SEE SCANNED REPORT) LDL (DIRECT MEASURE)-OUTSIDE LAB OUTSIDE LAB (SEE SCANNED REPORT) HEMOGLOBIN, [id number] LAB OUTSIDE LAB (SEE SCANNED REPORT) PHOSPHORUS-OUTSI DE LAB OUTSIDE LAB (SEE SCANNED REPORT) PTH-OUTSIDE LAB OUTS TYRESE LAB (SEE SCANNED REPORT) MICROALBUMIN RATIO-OUTSIDE LAB OUTSIDE LAB (SEE SCANNED REPORT) PROTEIN, UA-OUTSIDE LAB 1+ NEGATIVE OUTSIDE LAB (SEE SCANNED REPORT) HGB 8.2(A) 14.0 - 18.0 G/DL OUTSIDE LAB (SEE SCANNED REPORT) 05/18/2024 History Per Patient LABORATORY OUTSIDE LAB (SEE SCANNED REPORT) * XR CHEST 1 VIEW (05/18/2024) Anatomical Region Laterality Modality Chest Other 05/18/2024 History Per Patient RADIOLOGY (RAD GENER AL) documented in this encounter Advance Directives * Full Code (Latest Code Status on File) Date Activated Date Inactivated Comments 09/03/2007 7:29 AM 09/03/2007 4:02 PM
--- OUTSIDE RECORDS SUMMARY | 2024-05-28 18:23 | External Medical Summary | Summary of Care ---
Author Name Unknown Organization [facility] Address [address] [place] [address] Phone [phone] Care Team Providers Care Abrasive Mixer Helper Name Role Phone Unavailable Primary Care Provider Unavailabl e Reason for Visit * Reason Comments Procedure Port flush/Epoetin i njection * Episode Based Medications (Routine) - Authorized Specialty Diagnoses / Procedures Referred By Aaron vines Referred To Contact Diagnoses Carcinoma of bladder (HCC) Iron deficiency anemia, unspecified iron deficiency anemia type Chronic kidney disease, stage 3b (HCC) Procedures AR INJ RETACRIT NON-ESRD USE AR THERAPEUTIC PROPHYLACTIC/DX INJECTION SUBQ/IM AR EPOETIN IVAN, NON-ESRD Ludwig Louis MD [address] [place] [address] Anc Hem/Onc Dony Hickman DEPT CLOSED - 10/01/23 [address] [place] [phone] Referral ID Status Reason Start Date Expiration Date V isits Requested Visits Authorized [id number] Authorized 02/05/2024 07/22/[phone] Encounter Details Date Type Department Care Team (Late st Contact Info) Description 05/27/2024 10:30 AM EDT Immunization/I njection Hematology/Oncology Treatment, [place] [address] [place] [phone] Nurse, Med 4 [address] [place] [address] Encounter for central line care*; Carcinoma of bladder (HCC); Iron deficiency anemia, unspecified iron deficiency anemia type; Chronic kidney disease, stage 3b (HCC) Allergies [...] albuterol 120 mL 5 11/21/2022 Active Ipratropium [place] 0.02 % Inhalation Solution (Atrovent)Indicat ions:Moderate persistent asthma without complication Inhale 2.5 mL via nebulizer in the morning and 2.5 mL at noon and 2.5 mL in the evening and 2.5 mL before bedtime. Mix with albuterol solution. 75 mL 12 11/21/2022 Active Spiriva Respimat 2.5 MCG/ACT Inhalation Aerosol Solution (Tiotropium [place] Monohydrate)Indic ations:Moderate persistent asthma without complication INHALE [...] Tablet Extended Release 12 Hour (Humibid [place])Indications:Ac ambler cough Take 1 Tablet by mouth in [...] EVERY EVENING. OR TAKE INSTRUCTED BY [facility] 90 Tablet 3 05/07/2024 Active [...] this for 10 days. 20 Capsule 05/25/2024 4 Active Torsemide 100 MG Oral Tablet (Demadex)Indicati ons:Cellulitis of left lower leg One daily for 3 days and as needed 10 Tablet 05/25/2024 Active Sulfamethoxazole- Trimethoprim 800-160 MG Oral Tablet (Bactrim DS)Indications:Ce llulitis of left lower leg Take 1 Tablet by mouth in the morning and 1 Tablet before bedtime. Do all this for 10 days. Until gone.. 20 Tablet 05/25/2024 4 Active documented as of this encounter (statuses [...] rinse after steroid. Test performed by Sameer CLOTH FEEDER CPFT Pleural plaque due to asbestos exposure Restrictive lung disease Overview: In Check dial performed to assess inhaler technique: 12/15/19 Name of inhalers Albuterol Pass: Yes at 60 L/min and Advair Pass: Yes at 60 L/min. Encouraged to to take deep breath, use aero chamber, and rinse after steroid. Test performed by Sameer CLOTH FEEDER CPFT Hx of pulmonary embolus 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 Overview: Somers C0-M6 documented as of this encounter (statuses [...] infection 08/22/2005 04/05/2016 Anal fissure 06/04/2005 10/16/2007 manager long term care current use of ant icoagulant therapy [...] mRNA, LNP-s, No Pre serve, 2-Dose Series ([employer]) 12/01/2021,01/16/2021,12/26/2020 COVID-19, LNP-s, No Preserve , Ozzy-sucrose, Ages 12+ ([employer]) 12/01/2021 COVID-19, MRNA-LNP, 23-24, P F, 30 MCG/0.3 mL, 12 YRS AND ABOVE, IM ([facility]) 09/18/2023 Covid-19, Mrna, Lnp-s, [...] Sign Reading Time Taken Comments Blood Pressure 103/56 05/27/2024 11:12 AM EDT Pulse 85 05/27/2024 11:12 AM EDT Temperature 36.6 C (97.8 F) 05/27/2024 11:12 AM E DT Respiratory Rate 16 05/27/2024 11:12 AM EDT Oxygen Saturation 95% 05/27/2024 11:12 AM EDT Inhaled Oxygen Concentration - - Weight - - Height - - Body Mass Index - - documented in this encounter Nursing Notes * Bren Gavin RN - 05/27/2024 11:13 AM EDT Patient ambulatory to chair 6 Patient denies any complaints of nausea, vomiting, diarrhea, fever. Patient does have pain to left lower leg with pain, redness and warm, patient is currently on antibiotics for this. Open area on back of calf wrapped for comfort. VAD (Venous Access Device) accessed with #[id number] 3/4" without difficulty. Good blood return. VAD flushed with 10 ml NSS and Heparin 5 ml (100 units/ml). Muhammad needle removed intact. Safety and Risk for Injury Patient will remain free from injury. Ensure appropriate safety devices are available. Provide and maintain safe environment. Goals: patient will remain free of injury Possible barriers to meeting goals: Stability of the patient: Moderately stable - low risk of patient condition declining or worsening Summary regarding today's goals: Met: patient remained free of injury documented in this encounter Plan of Treatment Upcoming Encounters Date Type Department Care Team (Latest Contact Info) Description 10:20 AM EDT Office Visit [address] [phone] Juancho Romero MD [address] [place] [address] [place] [address] 4 6:30 AM EDT [facility] Clinical Pharmacy Services, Angela Giles [address] [place] [address] [place] [address] [facility], [address] [place] [address] 4 10:00 AM EDT Laboratory Laboratory [facility] [place] [address] [place] [phone] Mary[place], Lab [address] [place] [address] 4 10:45 AM EDT Immunization/Inject ion Hematology/Onc ology Treatment, [place] [facility] [phone] Nurse, Med 4 [address] [place] [address] 4 10:00 AM EDT Laboratory Laboratory [facility] [place] [address] [place] [phone] Maryl[place], Lab [place] [address] [place], [place] [address] 4 10:30 AM EDT Immunization/Inject ion Hematology/Onc ology Treatment, [place] 200 [facility] [place] [address] Nurse, Med [address] [place], [place] [address] 4 10:10 AM EDT Laboratory Laboratory [facility] [place] [address] [place] [phone] Marylou, Lab Sc[address]ery [address] [place], [place] [address] 4 10:30 AM EDT Immunization/Inject ion Hematology/Onc ology Treatment, [place] 200 [facility], [place] [phone] Nurse, Med 4 200 [facility] [place] [address] 4 10:30 AM EDT Hem/Onc Treatment Hematology/Onc ology Treatment, [place] [facility] [phone] [place], Chair 3 Hem Onc [facility] 200 [facility] [place] [address] 4 8:40 AM EDT Office Visit Rheumatology [address] [place] [phone] Win Nielsen MD [address] [place] [address] [place] [address] 4 1:15 PM EDT Office Visit Hematology/Onc ology [facility] [place] 200 [facility] [place] [phone] Ramon Cadet MD 200 [facility] [place], [place] [address] 4 11:45 AM EDT Hospital Encounter ENDO [facility], Endoscopy Suite, HFAM 1, [address] [place] [address] Domingo Garcia DO [address] [place] [address] 4 11:45 AM EDT - 4 1:00 PM EDT Surgery ENDO [facility], Endoscopy Suite, HFAM 1, [address] [place] [address] Domingo Garcia DO [address] [place] [address] ESOPHAGOGASTRODUODENOSCOPY (EGD), FLEXIBLE, TRANSORAL, DIAGNOSTIC 11:20 AM EST Office Visit [address] [place] [phone] Bell Mcqueen MD [address] [place] [address] [place] [address] Scheduled Procedures Name Priority Associated Diagnoses Date/Ti me ESOPHAGOGASTRODUODENOSCOPY ( EGD), FLEXIBLE, TRANSORAL, DIAGNOSTIC Recall Stark's esophagus with dysplasia 08/27/2024 11:45 AM EDT COLONOSCOPY FLEXIBLE PROXIMA L DIAGNOSTIC Recall Stark's esophagus with dysplasia 08/27/2024 11:45 AM EDT Health Maintenance Due Date Last Done Comments Depression Screening 07/12/2021 07/12/2020 CKD PHOS USE SMARTSET 11367 08/21/2022 10/0 02/2021, 07/12/2020, 03/13/2019, Additional history [...] Additional history exists CKD HGB USE SMARTSET 82764 05/25/202505/25, 05/25/2024, 05/18/2024, Additional history exists DXA Scan 07/05/2025 07/05/2023, 10/19, 11/04/2018, Additional history exists DTaP,Tdap,and Td Vaccines (2 - Td or Tdap) 08/19/2027 08/19/2017, 08/20/2008 Pneumococcal Vaccine: 65+ Years Completed 06/23/2015, 05/14/2013, 04/18/2004 Zoster Vaccines Completed 12/02/2020, 08/15/2020 VITAMIN D LEVEL ONCE IN A LIFETIME-USE SMARTSET# [id number] Completed 04/22/2023, 08/28/2021, 07/14/2015 HPV (Gardasil) Vaccine Aged Out No lo nger eligible based on patient's age to complete this topic Hepatitis B Vaccine Aged Out No longe r eligible based on patient's age to complete this topic MENINGOCOCCAL (MENACTRA/MENVEO) Aged Out No longer eligible based on patient's age to complete this topic documented as of this encounter Medical Devices Implanted Type Area Roller Skates Assembler Device Identifier Shelf Expiration Date Model / Serial / Lot Power Port 8fr Sngl Lumen Plas - [id number] Implanted:Qty: 1 on 02/22/2022 at [facility] CR BARD : PERIPHERAL VASCULAR [id number] 02/15/2023 [id number] / / [id number] documented as of this encounter Visit Diagnoses Diagnosis Encounter for central line care- Primary Fitting and adjustment of vascular catheter Carcinoma of bladder (HCC) Malignant neoplasm of bladder, part unspecified Iron deficiency anemia, unspecified iron deficiency anemia type Chronic kidney disease, stage 3b (HCC) Stark's esophagus with dysplasia Stark's esophagus documented in this encounter Administered Medications Active Administered Medications - up to 3 most recent administrations Medication Order MAR Action Action Date Dose Rate Site hEParin 100 UNIT/ML Lock Flush inj 500 Units 500 Units (5 mL), IV Lock, PRN Other, IV Flush, Starting on Sat05/27/24 at 1050, Until Marilin 05/28/24 at 1049, For 24 hours, Do not flush if lock, PICC, or central line not in place; IV infusing or unable to flush. Given 05/27/2024 10:56 AM EDT 500 Units sodium chloride 0.9 % flush central line 10 mL 10 mL, IV Push, PRN Other, IV Flush, Starting on Sat05/27/24 at 1050, Until Marilin 05/28/24 at 1049, For 24 hours, Do not flush if lock, PICC, or central line not in place; IV infusing or unable to flush. Given 05/27/2024 10:55 AM EDT 10 mL Inactive Administered Medications - up to 3 most recent administrations Medication Order MAR Action Action Date Dose Rate Site Epoetin Ivan-epbx (Retacrit) 73765 UNIT/ML inj 60,000 Units 60,000 Units, Subcutaneous, ONCE, On Sat05/27/24 at 1130, For 1 dose Given 05/27/2024 11:03 AM EDT 60,000 Units Arm Left Upper documented in this encounter Advance Directives * Full Code (Latest Code Status on File) Date Activated Date Inactivated Comments 09/03/2007 7:29 AM 09/03/2007 4:02 PM
--- OUTSIDE RECORDS SUMMARY | 2024-05-28 18:23 | External Medical Summary | Summary of Care ---
Author Name Unknown Organization [facility] Address [address] [place] [address] Phone [phone] Care Team Providers Care Topographical Engineer Name Role Phone Unavailable Primary Care Provider Unavailabl e Reason for Visit * Reason Comments Medication Administration Retacrit * Episode Based Medications (Routine) - Authorized Specialty Diagnoses / Procedures Referred By Aaron vines Referred To Contact Diagnoses Carcinoma of bladder (HCC) Iron deficiency anemia, unspecified iron deficiency anemia type Chronic kidney disease, stage 3b (HCC) Procedures MI INJ RETACRIT NON-ESRD USE MI THERAPEUTIC PROPHYLACTIC/DX INJECTION SUBQ/IM MI EPOETIN IVAN, NON-ESRD Ludwig Louis MD [address] [facility] [place] [address] Anc Hem/Onc Dony Hickman DEPT CLOSED - 10/01/23 [address] [place] [phone] Referral ID Status Reason Start Date Expiration Date V isits Requested Visits Authorized [id number] Authorized 02/05/2024 07/22/2024 999 [id number] Encounter Details Date Type Department Care Team (Late st Contact Info) Description 05/06/2024 2:00 PM EDT Immunization/I njection Hematology/Oncology Treatment, [place] [address] [place] [address] Nurse, Med 4 [address] [place] [address] Carcinoma of bladder (HCC)*; Iron deficiency anemia, [...] albuterol 120 mL 5 3 Active Ipratropium [place] 0.02 % Inhalation Solution (Atrovent)Indicat ions:Moderate persistent asthma without complication Inhale 2.5 mL via nebulizer in the morning and 2.5 mL at noon and 2.5 mL in the evening and 2.5 mL before bedtime. Mix with albuterol solution. 75 mL 12 3 Active Spiriva Respimat 2.5 MCG/ACT Inhalation Aerosol Solution (Tiotropium [place] Monohydrate)Indic ations:Moderate persistent asthma without complication INHALE [...] [facility] 90 Tablet 3 3 [...] rinse after steroid. 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 Encouraged to to take deep breath, use aero chamber, and rinse after steroid. Test performed by Sameer MACHINE CHOCOLATE MOLDER CPFT Hx of pulmonary embolus 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 Overview: [place] C0-M6 documented as of this encounter (statuses [...] mRNA, LNP-s, No Pre serve, 2-Dose Series ([employer]) 12/01/2021,01/16/2021,12/26/2020 COVID-19, LNP-s, No Preserve , Ozzy-sucrose, Ages 12+ ([employer]) 12/01/2021 COVID-19, MRNA-LNP, 23-24, P F, 30 MCG/0.3 mL, 12 YRS AND ABOVE, IM ([employer]-Comirnaty) 09/18/2023 Covid-19, Mrna, Lnp-s, Pf, B ivalent, 30 Mcg, IM, 12 yrs and above ([employer]) 10/09/2022 Pneumococcal Conjugate Vacc, 13 Valent (Prevnar) [...] Sign Reading Time Taken Comments Blood Pressure 103/58 05/06/2024 2:05 PM EDT Pulse - - Temperature - - Respiratory Rate - - Oxygen Saturation - - Inhaled Oxygen Concentration - - Weight - - Height - - Body Mass Index - - documented in this encounter Progress Notes * Lynn Trevino LPN - 05/06/2024 1:50 PM EDT Patient arrived for Retacrit injection, BP 103/58, Hgb: 8.3; administered in the TONI, patient tolerated injection well. Patient denies any complaints. No bleeding or bruising noted at injection site.Patient scheduled for his next injection on 05/13/2024. Patient stable upon discharge. documented in this encounter Plan of Treatment Upcoming Encounters Date Type Department Care Team (Latest Contact Info) Description 4 10:30 AM EDT Immunization/Inject ion Hematology/Onc ology Treatment, [address] [place] [phone] Nurse, Med [address] [place] [address] [place] [address] 4 10:20 AM EDT Office Visit Family Medicine [address] [phone] Juancho Romero MD [address] [place] [address] [place] [address] 4 6:30 AM EDT Anticoagulation Centralized Clinical Pharmacy Services, Angela Giles [address] [place] [address] [place] [address] [place] [address] 4 10:00 AM EDT Laboratory Laboratory [facility] Marylou [address] [place] [phone] [place], Lab [address] [place] [address] 4 10:45 AM EDT Immunization/Inject ion Hematology/Onc ology Treatment, [address] [place] [phone] Nurse, Med [address] [place], [place] [address] 4 10:00 AM EDT Laboratory Laboratory [facility] Marylou [place] [address] [place] [phone] [place], Lab Scenery [address] [facility] [place] [address] 4 10:30 AM EDT Immunization/Inject ion Hematology/Onc ology Treatment, [place] 200 [facility], [place] [address] Nurse, Med [address] [place] [address] 4 10:10 AM EDT Laboratory Laboratory [facility] [place] [address] [place] [phone] [place], Lab Scenery [address] [facility] [address] [place], [place] [address] 4 10:30 AM EDT Immunization/Inject ion Hematology/Onc ology Treatment, [place] 200 [facility], [place] [phone] Nurse, Med [address] [place], [place] [address] 4 8:40 AM EDT Office Visit Rheumatology [address] [place] [phone] Win Nielsen MD [address] [facility] [address] [place], [place] [address] 4 11:45 AM EDT [place] [facility] [place], [facility] 1, [address], [place] [id number] Domingo Garcia DO [address] [place] [address] 4 11:45 AM EDT - 4 1:00 PM EDT Surgery [facility] [facility] [place] Endoscopy Suite, [facility]AM 1, [address] [place] [address] Domingo Garcia DO [address] [place] [address] ESOPHAGOGASTRODUODENOSCOPY (EGD), FLEXIBLE, TRANSORAL, DIAGNOSTIC 5 11:20 AM EST Office Visit [address] [place] [address] Bell Mcqueen MD [address] [place] [address] [place] [address] Scheduled Procedures Name Priority Associated Diagnoses Date/Ti me ESOPHAGOGASTRODUODENOSCOPY ( EGD), FLEXIBLE, TRANSORAL, DIAGNOSTIC Recall Stark's esophagus with dysplasia 08/27/2024 11:45 AM EDT COLONOSCOPY FLEXIBLE PROXIMA L DIAGNOSTIC Recall Stark's esophagus with dysplasia 08/27/2024 11:45 AM EDT Health Maintenance Due Date Last Done Comments Depression Screening 07/12/2021 07/12/2020 CKD PHOS USE SMARTSET 83519 08/21/2022 10/0 02/2021, 07/12/2020, 03/13/2019, Additional history [...] Additional history exists CKD HGB USE SMARTSET 44657 05/25/202505/25, 05/25/2024, 05/18/2024, Additional history exists DXA Scan 07/05/2025 07/05/2023, 10/19, 11/04/2018, Additional history exists DTaP,Tdap,and Td Vaccines (2 - Td or Tdap) 08/19/2027 08/19/2017, 08/20/2008 Pneumococcal Vaccine: 65+ Years Completed 06/23/2015, 05/14/2013, 04/18/2004 Zoster Vaccines Completed 12/02/2020, 08/15/2020 VITAMIN D LEVEL ONCE IN A LIFETIME-USE SMARTSET# [id number] Completed 04/22/2023, 08/28/2021, 07/14/2015 HPV (Gardasil) Vaccine Aged Out No lo nger eligible based on patient's age to complete this topic Hepatitis B Vaccine Aged Out No longe r eligible based on patient's age to complete this topic MENINGOCOCCAL (MENACTRA/MENVEO) Aged Out No longer eligible based on patient's age to complete this topic documented as of this encounter Medical Devices Implanted Type Area Lunchroom Supervisor Device Identifier Shelf Expiration Date Model / Serial / Lot Power Port 8fr Sngl Lumen Plas - [id number] Implanted:Qty: 1 on 02/22/2022 at [facility] CR BARD : PERIPHERAL VASCULAR [id number] 02/15/2023 [id number] / / [id number] documented as of this encounter Visit Diagnoses [...] Date Dose Rate Site Epoetin Ivan-epbx (Retacrit) 74996 UNIT/ML inj 40,000 Units 40,000 Units, Subcutaneous, ONCE, On Sat05/06/24 at 1430, For 1 dose Given 05/06/2024 1:59 PM EDT 40,000 Units Arm Left Upper documented in this encounter Advance Directives * Full Code (Latest Code Status on File) Date Activated Date Inactivated Comments 09/03/2007 7:29 AM 09/03/2007 4:02 PM
--- OUTSIDE RECORDS SUMMARY | 2024-05-28 18:23 | External Medical Summary | Summary of Care ---
Author Name Unknown Organization [facility] Address [address] [place] [address] Phone [phone] Care Team Providers Care Supervisor Slitting And Shipping Name Role Phone Unavailable Primary Care Provider Unavailabl e Reason for Visit * Reason Comments Medication Administration Retacrit * Episode Based Medications (Routine) - Authorized Specialty Diagnoses / Procedures Referred By Aaron vnies Referred To Contact Diagnoses Carcinoma of bladder (HCC) Iron deficiency anemia, unspecified iron deficiency anemia type Chronic kidney disease, stage 3b (HCC) Procedures ND INJ RETACRIT NON-ESRD USE ND THERAPEUTIC PROPHYLACTIC/DX INJECTION SUBQ/IM ND EPOETIN IVAN, NON-ESRD Ludwig Louis MD [address] [facility] [place] [address] Anc Hem/Onc Dony Hickman DEPT CLOSED - 10/01/23 [address] [place] [address] Referral ID Status Reason Start Date Expiration Date V isits Requested Visits Authorized [id number] Authorized 02/05/2024 07/22/2024 999 999 Encounter Details Date Type Department Care Team (Late st Contact Info) Description 04/29/2024 10:45 AM EDT Immunization/I njection Hematology/Oncology Treatment, [place] [address] [place] [address] Nurse, Med 4 [address] [place] [address] Carcinoma of bladder (HCC)*; Iron deficiency anemia, [...] albuterol 120 mL 5 3 Active Ipratropium [place] 0.02 % Inhalation Solution (Atrovent)Indicat ions:Moderate persistent asthma without complication Inhale 2.5 mL via nebulizer in the morning and 2.5 mL at noon and 2.5 mL in the evening and 2.5 mL before bedtime. Mix with albuterol solution. 75 mL 12 3 Active Spiriva Respimat 2.5 MCG/ACT Inhalation Aerosol Solution (Tiotropium [place] Monohydrate)Indic ations:Moderate persistent asthma without complication INHALE [...] Tablet Extended Release 12 Hour (Humibid [place])Indications:Ac united [place] cough Take 1 Tablet by mouth in [...] evening. Or take as instructed by the [facility] 90 Tablet 3 3 [...] rinse after steroid. 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 Encouraged to to take deep breath, use aero chamber, and rinse after steroid. Test performed by Sameer TRANSPORTATION ATTENDANT CPFT Hx of pulmonary embolus 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 Overview: [place] C0-M6 documented as of this encounter (statuses [...] Malignant neoplasm of prostate 09/23/2008 03/27/2018 Overview: [place] grade 3 Atrial flutter 09/02/2007 10/16/2007 Herpes [...] mRNA, LNP-s, No Pre serve, 2-Dose Series ([employer]) 12/01/2021,01/16/2021,12/26/2020 COVID-19, LNP-s, No Preserve , Ozzy-sucrose, Ages 12+ ([employer]) 12/01/2021 COVID-19, MRNA-LNP, 23-24, P F, 30 MCG/0.3 mL, 12 YRS AND ABOVE, IM ([employer]-Comirnaty) 09/18/2023 Covid-19, Mrna, Lnp-s, Pf, B ivalent, 30 Mcg, IM, 12 yrs and above ([employer]) 10/09/2022 Pneumococcal Conjugate Vacc, 13 Valent (Prevnar) [...] Sign Reading Time Taken Comments Blood Pressure 98/62 04/29/2024 10:35 AM EDT Pulse - - Temperature - - Respiratory Rate - - Oxygen Saturation - - Inhaled Oxygen Concentration - - Weight - - Height - - Body Mass Index - - documented in this encounter Nursing Notes * Leana Sears LPN - 04/29/2024 10:45 AM EDT Pt arrived for Retacrit injection. Hgb 9.2. BP WNL. Administered in SHON. Pt tolerated well. To return in one week. Discharged in stable condition. documented in this encounter Plan of Treatment Upcoming Encounters Date Type Department Care Team (Latest Contact Info) Description 4 10:30 AM EDT Immunization/Inject ion Hematology/Onc ology Treatment, [address] [place] [phone] Nurse, Med 4 200 [facility] [place] [address] 4 10:20 AM EDT Office Visit Family [address] [phone] PilJuancho keys MD [address] [place] [place] [address] [place] [address] 4 6:30 AM EDT Anticoagulation Centralized Clinical Pharmacy Services, Angela Giles [address] [place] [address] [place] [address] [place] [address] 4 10:00 AM EDT Laboratory Laboratory [facility] [place] [address] [place] [phone] [place] Lab [address] [place] [address] 4 10:45 AM EDT Immunization/Inject ion Hematology/Onc ology Treatment, [place] 200 [facility] [place] [phone] Nurse, Med [address] [place] [address] 4 10:00 AM EDT Laboratory Laboratory [facility] [place] [address] [place] [phone] [place], Lab Scenery [address] [place] [address] 4 10:30 AM EDT Immunization/Inject ion Hematology/Onc ology Treatment, [place] [facility] [phone] Nurse, Med [address] [place] [address] 4 10:10 AM EDT Laboratory Laboratory [facility] [place] [address] [place] [phone] [place], Lab Scenery [address] [place] [address] 4 10:30 AM EDT Immunization/Inject ion Hematology/Onc ology Treatment, [place] 200 [facility], [place] [phone] Nurse, Med 4 200 [facility] [place] [address] 4 8:40 AM EDT Office Visit Rheumatology [address] [place] [phone] Win Nielsen MD [address] [facility] [place] [address] 4 11:45 AM EDT Hospital Encounter [facility] [place] Endoscopy Suite, HFAM 1, [address] [place] [address] Domingo Garcia DO [address] [facility], [place] [id number] 4 11:45 AM EDT - 4 1:00 PM EDT Surgery [facility] [place] Endoscopy Suite, HFAM 1, [address] [place] [address] Domingo Garcia DO [address] [place] [address] ESOPHAGOGASTRODUODENOSCOPY (EGD), FLEXIBLE, TRANSORAL, DIAGNOSTIC 5 11:20 AM EST Office Visit [address] [place] [address] Bell Mcqueen MD [address] [place] [address] [place] [address] Scheduled Procedures Name Priority Associated Diagnoses Date/Ti me ESOPHAGOGASTRODUODENOSCOPY ( EGD), FLEXIBLE, TRANSORAL, DIAGNOSTIC Recall Stark's esophagus with dysplasia 08/27/2024 11:45 AM EDT COLONOSCOPY FLEXIBLE PROXIMA L DIAGNOSTIC Recall Stark's esophagus with dysplasia 08/27/2024 11:45 AM EDT Health Maintenance Due Date Last Done Comments Depression Screening 07/12/2021 07/12/2020 CKD PHOS USE SMARTSET 04881 08/21/2022 10/0 02/2021, 07/12/2020, 03/13/2019, Additional history [...] Additional history exists CKD HGB USE SMARTSET 71103 05/25/202505/25, 05/25/2024, 05/18/2024, Additional history exists DXA Scan 07/05/2025 07/05/2023, 10/19, 11/04/2018, Additional history exists DTaP,Tdap,and Td Vaccines (2 - Td or Tdap) 08/19/2027 08/19/2017, 08/20/2008 Pneumococcal Vaccine: 65+ Years Completed 06/23/2015, 05/14/2013, 04/18/2004 Zoster Vaccines Completed 12/02/2020, 08/15/2020 VITAMIN D LEVEL ONCE IN A LIFETIME-USE SMARTSET# 48042 Completed 04/22/2023, 08/28/2021, 07/14/2015 HPV (Gardasil) Vaccine Aged Out No lo nger eligible based on patient's age to complete this topic Hepatitis B Vaccine Aged Out No longe r eligible based on patient's age to complete this topic MENINGOCOCCAL (MENACTRA/MENVEO) Aged Out No longer eligible based on patient's age to complete this topic documented as of this encounter Medical Devices Implanted Type Area Therapy Coordinator Device Identifier Shelf Expiration Date Model / Serial / Lot Power Port 8fr Sngl Lumen Plas - [id number] Implanted:Qty: 1 on 02/22/2022 at [facility] CR [employer]ARD : PERIPHERAL VASCULAR [id number] 02/15/2023 [id number] / / [id number] documented as of this encounter Visit Diagnoses [...] Date Dose Rate Site Epoetin Ivan-epbx (Retacrit) 12814 UNIT/ML inj 40,000 Units 40,000 Units, Subcutaneous, ONCE, On Sat04/29/24 at 1115, For 1 dose Given 04/29/2024 10:40 AM EDT 40,000 Units Arm Right Upper documented in this encounter Advance Directives * Full Code (Latest Code Status on File) Date Activated Date Inactivated Comments 09/03/2007 7:29 AM 09/03/2007 4:02 PM
--- OUTSIDE RECORDS SUMMARY | 2024-05-28 18:23 | External Medical Summary | Summary of Care ---
Author Name Unknown Organization [facility] Address [address] [facility] [address] Phone [phone] Care Team Providers Care Music Coordinator Name Role Phone Unavailable Primary Care Provider Unavailabl e Reason for Visit * Reason Onset Date Comments Other 05/26/2024 Encounter Details Date Type Department Care Team (Late st Contact Info) Description 05/26/2024 Telephone Centralized Clinical Pharmacy Services, Angela Giles [address] [place] [address] [place] [address] [facility], [address] [place] [address] Other Allergies Active Allergy Reactions Criticality Noted [...] albuterol 120 mL 5 11/21/2022 Active Ipratropium [place] 0.02 % Inhalation Solution (Atrovent)Indicat ions:Moderate persistent asthma without complication Inhale 2.5 mL via nebulizer in the morning and 2.5 mL at noon and 2.5 mL in the evening and 2.5 mL before bedtime. Mix with albuterol solution. 75 mL 12 11/21/2022 Active Spiriva Respimat 2.5 MCG/ACT Inhalation Aerosol Solution (Tiotropium [place] Monohydrate)Indic ations:Moderate persistent asthma without complication INHALE [...] EVERY EVENING. OR TAKE INSTRUCTED BY [facility] 90 Tablet 3 05/07/2024 Active [...] rinse after steroid. Test performed by Sameer VEGETABLE WORKER CPFT Pleural plaque due to asbestos exposure Restrictive lung disease Overview: In Check dial performed to assess inhaler technique: 12/15/19 Name of inhalers Albuterol Pass: Yes at 60 L/min and Advair Pass: Yes at 60 L/min. Encouraged to to take deep breath, use aero chamber, and rinse after steroid. Test performed by Sameer VEGETABLE WORKER CPFT Hx of pulmonary embolus 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 Overview: [place] C0-M6 documented as of this encounter (statuses [...] mRNA, LNP-s, No Pre serve, 2-Dose Series ([employer]) 12/01/2021,01/16/2021,12/26/2020 COVID-19, LNP-s, No Preserve , Ozzy-sucrose, Ages 12+ ([employer]) 12/01/2021 COVID-19, MRNA-LNP, 23-24, P F, 30 MCG/0.3 mL, 12 YRS AND ABOVE, IM ([facility]) 09/18/2023 Covid-19, Mrna, Lnp-s, Pf, B ivalent, 30 Mcg, IM, 12 yrs and above ([employer]) 10/09/2022 Pneumococcal Conjugate Vacc, 13 Valent [...] encounter Miscellaneous Notes * Telephone Encounter - Macie Wheeler CPhT - 05/26/2024 2:52 PM EDT Scheduled * Telephone Encounter - Tammie Scruggs RPh - 05/26/2024 2:47 PM EDT Date/Time Type Contact Phone/Fax 05/26/2024 02:48 PM EDT by Tammie Scruggs [facility] Outgoing Patrick Robles "Rafa" (Self) Remove Spoke to Patient - Noted. Pt currently on Bactrim DS twice daily until 06/04. Bactrim is known to increase INR. Advised to restart Warfarin today since procedure cancelled but decrease to 0mg MWF then 2.5mg while on Bactrim. Repeat INR On 06/01 with home machine. Tammie Scruggs [facility], Pharm.D. Clinical Pharmacist Centralized Clinical Pharmacy Services ([facility]PS) [phone] 05/26/2024,2:48 PM * Telephone Encounter - Mignon Gamino PHARM Tech - 05/26/2024 1:16 PM EDT Caller's name: Mariana Leif call back number(OFFICE NUMBER FOR ): [phone] Reason for call: Pts calling to let the [facility] know his procedure for Saturday is cancelled. She said pt hasn't taken Warfarin at all. Please return her call. Thank you, Mignon Gamino Street Engineer Centralized Clinical Pharmacy Services 05/26/2024,1:16 PM documented in this encounter Plan of Treatment Upcoming Encounters Date Type Department Care Team (Latest Contact Info) Description 4 10:30 AM EDT Immunization/Inject ion Hematology/Onc ology Treatment, [address] [place] [phone] Nurse, Med [address] [place], [place] [address] [address] 4 10:20 AM EDT Office Visit Family Medicine [address] [place] [phone] Juancho Romero MD [address] [place] [address] [place] [address] 4 6:30 AM EDT Anticoagulation Centralized Clinical Pharmacy Services, Angela Giles [address] [place] [address] [place] [address] [facility], [address] [place] [address] 4 10:00 AM EDT Laboratory Laboratory [facility] Marylou [place] [address] [place] [phone] [place], Lab Scenery [address] [place] [address] 4 10:45 AM EDT Immunization/Inject ion Hematology/Onc ology Treatment, [place] [address] [facility] [place] [address] Nurse, Med [address] [address] 4 10:00 AM EDT Laboratory Laboratory [facility] [place] [address] [place] [phone] Marylou, Lab Scenery [address] [address] 4 10:30 AM EDT Immunization/Inject ion Hematology/Onc ology Treatment, [place] [address] [facility] [place], [place] [address] Nurse, Med [address] [address] 4 10:10 AM EDT Laboratory Laboratory [facility] [place] [address] [address] [place], Lab Scenery [address] [address] 4 10:30 AM EDT Immunization/Inject ion Hematology/Onc ology Treatment, [place] [facility] [address] Nurse, Med [address] [address] 4 8:40 AM EDT Office Visit Rheumatology [address] [place] [phone] Win Nielsen MD [address] [facility] [place] [address] 4 11:45 AM EDT Hospital Encounter [facility] Endoscopy Suite, HFAM 1, [address] [place] [address] Domingo Garcia DO [address] [place] [address] 4 11:45 AM EDT - 4 1:00 PM EDT Surgery [facility], Endoscopy Suite, HFAM 1, [address] [place], [place] [id number] Domingo Garcia DO [address] [place] [address] ESOPHAGOGASTRODUODENOSCOPY (EGD), FLEXIBLE, TRANSORAL, DIAGNOSTIC 5 11:20 AM EST Office Visit Family Medicine [address] [place] [phone] Bell Mcqueen MD [address] [place] [address] [place] [address] Scheduled Procedures Name Priority Associated Diagnoses Date/Ti me ESOPHAGOGASTRODUODENOSCOPY ( EGD), FLEXIBLE, TRANSORAL, DIAGNOSTIC Recall Stark's esophagus with dysplasia 08/27/2024 11:45 AM EDT COLONOSCOPY FLEXIBLE PROXIMA L DIAGNOSTIC Recall Stark's esophagus with dysplasia 08/27/2024 11:45 AM EDT Health Maintenance Due Date Last Done Comments Depression Screening 07/12/2021 07/12/2020 CKD PHOS USE SMARTSET 09357 08/21/2022 10/0 02/2021, 07/12/2020, 03/13/2019, Additional history exists *BISPHONATE OR OTHER ACCEPTABLE MEDICATION NEEDED FOR OSTEOPOROSIS (REFER TO SMARTSET #1146) 10/14/2023 COVID-19 Vaccine (2022- season) 2024 09/18/2023, 10/09/2022, 12/01/2021, Additional history exists Albumin/Creatinine Ratio 04/22/2024 023, 05/24/2022, 03/26/2022, Additional history exists Influenza Vaccine (FLU shot) (#1) 2024 07/31/2023, 10/09/2022, 08/17/2021, Additional history exists TSH 01/20/2025 01/21/2024, 09/19, 08/20/2023, Additional history exists Stark's Esophagus Surveilance 02/26/2025 02/26/2022, 02/26/2022, 07/04/2021, Additional history exists CKD HGB USE SMARTSET 60912 05/25/202505/25, 05/25/2024, 05/18/2024, Additional history exists DXA Scan 07/05/2025 07/05/2023, 10/19, 11/04/2018, Additional history exists DTaP,Tdap,and Td Vaccines (2 - Td or Tdap) 08/19/2027 08/19/2017, 08/20/2008 Pneumococcal Vaccine: 65+ Years Completed 06/23/2015, 05/14/2013, 04/18/2004 Zoster Vaccines Completed 12/02/2020, 08/15/2020 VITAMIN D LEVEL ONCE IN A LIFETIME-USE SMARTSET# 51811 Completed 04/22/2023, 08/28/2021, 07/14/2015 HPV (Gardasil) Vaccine Aged Out No lo nger eligible based on patient's age to complete this topic Hepatitis B Vaccine Aged Out No longe r eligible based on patient's age to complete this topic MENINGOCOCCAL (MENACTRA/MENVEO) Aged Out No longer eligible based on patient's age to complete this topic documented as of this encounter Medical Devices Implanted Type Area Health Teacher Device Identifier Shelf Expiration Date Model / Serial / Lot Power Port 8fr Sngl Lumen Plas - [id number] Implanted:Qty: 1 on 02/22/2022 at [facility] CR BARD : PERIPHERAL VASCULAR [id number] 02/15/2023 [id number] / / [id number] documented as of this encounter Visit Diagnoses Diagnosis Hx of pulmonary embolus- Primary Personal history of pulmonary embolism Longstanding persistent atrial fibrillation (HCC) Stark's esophagus with dysplasia Stark's esophagus documented in this encounter Advance Directives * Full Code (Latest Code Status on File) Date Activated Date Inactivated Comments 09/03/2007 7:29 AM 09/03/2007 4:02 PM
--- OUTSIDE RECORDS SUMMARY | 2024-05-28 18:24 | External Medical Summary | Summary of Care ---
Author Name Unknown Organization [facility] Address [address] [place] [address] Phone [phone] Care Team Providers Care Supervisor Fabrication Department Name Role Phone Unavailable Primary Care Provider Unavailabl e Reason for Visit * Reason Comments Outpatient Testing Encounter Details Date Type Department Care Team (Late st Contact Info) Description 05/25/2024 11:20 AM EDT Laboratory Laboratory [address] [place] [phone] [place] [address] Urothelial carcinoma of bladder (HCC) Allergies Active Allergy Reactions Criticality Noted Date Comments Penicillins Other (Please comment),Rash High Eyes swell Pollen 05/03/2022 Wound Dressing Adhesive Rash 05/02/2023 Patient reported Olanzapine Neuro complications (Please comment) 04/09/2024 documented as of this encounter (statuses as of 05/25/2024) Medications Medication Sig Dispensed Refills Start Date [...] 120 mL 5 11/21/2022 Active Ipratropium [place] 0.02 % Inhalation Solution (Atrovent)Indicat ions:Moderate persistent asthma without complication Inhale 2.5 mL via nebulizer in the morning and 2.5 mL at noon and 2.5 mL in the evening and 2.5 mL before bedtime. Mix with albuterol solution. 75 mL 12 11/21/2022 Active Spiriva Respimat 2.5 MCG/ACT Inhalation Aerosol Solution (Tiotropium [place] Monohydrate)Indic ations:Moderate persistent asthma without complication INHALE [...] Tablet Extended Release 12 Hour (Humibid [place])Indications:Ac deering cough Take 1 Tablet by mouth in [...] EVERY EVENING. OR TAKE INSTRUCTED BY THE [facility] 90 Tablet 3 05/07/2024 [...] as of this encounter (statuses as of 05/25/2024) Active Problems Problem Noted Date Diagnosed Date [...] after steroid. Test performed by Sameer POWER PLANT SUPERVISOR CPFT Pleural plaque due to asbestos exposure Restrictive lung disease Overview: In Check dial performed to assess inhaler technique: 12/15/19 Name of inhalers Albuterol Pass: Yes at 60 L/min and Advair Pass: Yes at 60 L/min. Encouraged to to take deep breath, use aero chamber, and rinse after steroid. 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 05/30/2005 [...] as of this encounter (statuses as of 05/25/2024) Immunizations Name Administration Dates Next Due COVID-19 mRNA, LNP-s, No Pre serve, 2-Dose Series ([employer]) 12/01/2021,01/16/2021,12/26/2020 COVID-19, LNP-s, No Preserve , Ozzy-sucrose, Ages 12+ ([employer]) 12/01/2021 COVID-19, MRNA-LNP, 23-24, P F, 30 MCG/0.3 mL, 12 YRS AND ABOVE, IM ([facility]) 09/18/2023 Covid-19, Mrna, Lnp-s, Pf, B ivalent, 30 Mcg, IM, 12 yrs and above ([employer]) 10/09/2022 Pneumococcal Conjugate Vacc, 13 Valent (Prevnar) [...] Care Team (Latest Contact Info) Description 4 11:30 AM EDT Imaging Radiology [address] [place] [address] Arrived 4 10:00 AM EDT Laboratory Laboratory Scenery Marylou [place] [address] [place] [phone] Marylou, Lab Scenery [address] [place] [address] 4 10:30 AM EDT Immunization/Inject ion Hematology/Onc ology Treatment, [place] [address] [facility], [place] [phone] Nurse, Med [address] [place], [place] [address] 4 10:00 AM EDT Laboratory Laboratory [facility] [place] [address] [place] [address] [place], Lab Scenery [address], [place] [address] 4 10:45 AM EDT Immunization/Inject ion Hematology/Onc ology Treatment, [place] 200 [facility], [place] [phone] Nurse, Med [address] [address] 4 6:30 AM EDT [facility] Centralized Clinical Pharmacy Services, Angela Giles [address] [place] [address] [place] [address] [facility]ps, [address] [place] [address] 4 10:00 AM EDT Laboratory Laboratory [facility] [place] [address] [phone] Marylou, Lab Scenery [address], [place] [address] 4 10:30 AM EDT Immunization/Inject ion Hematology/Onc ology Treatment, [place] 200 [facility] [place], [place] [address] Nurse, Med 4 [address], [place] [address] 4 10:10 AM EDT Laboratory Laboratory [facility] [place] [address] [address] [place], Lab Scenery [address] [place] [address] 4 10:30 AM EDT Immunization/Inject ion Hematology/Onc ology Treatment, [place] [address] [facility] [address] Nurse, Med 4 [address] [facility] [address] 4 8:40 AM EDT Office Visit Rheumatology [address] [place] [phone] Win Nielsen MD [facility] [place] [address] 4 11:45 AM EDT Hospital Encounter [facility] [place], Endoscopy Suite, HFAM 1, [address] [place] [address] Domingo Garcia DO [address] [place] [address] 4 11:45 AM EDT - 4 1:00 PM EDT Surgery [facility] [place], Endoscopy Suite, HFAM 1, [address] [place] [address] Domingo Garcia DO [address] [place] [address] ESOPHAGOGASTRODUODENOSCOPY (EGD), FLEXIBLE, TRANSORAL, DIAGNOSTIC 5 11:20 AM EST Office Visit Family Medicine [address] [place] [phone] Bell Mcqueen MD [address] [place] [address] [place] [address] Pending Results Name Type Priority Associated Diagnoses Date /Time CBC WITH WBC DIFFERENTIAL Lab STAT Urothelial carcinoma of bladder (HCC) 05/25/2024 11:05 AM EDT CBC Lab STAT Urothelial carcinoma of bladder (HCC) 05/25/2024 11:05 AM EDT DIFFERENTIAL, AUTOMATED Lab STAT Urothelial carcinoma of bladder (HCC) 05/25/2024 11:05 AM EDT Scheduled Procedures Name Priority Associated Diagnoses Date/Ti me ESOPHAGOGASTRODUODENOSCOPY ( EGD), FLEXIBLE, TRANSORAL, DIAGNOSTIC Recall Stark's esophagus with dysplasia 08/27/2024 11:45 AM EDT COLONOSCOPY FLEXIBLE PROXIMA L DIAGNOSTIC Recall Stark's esophagus with dysplasia 08/27/2024 11:45 AM EDT Health Maintenance Due Date Last Done Comments Depression Screening 07/12/2021 07/12/2020 CKD PHOS USE SMARTSET 16177 08/21/2022 10/0 02/2021, 07/12/2020, 03/13/2019, Additional history [...] Additional history exists CKD HGB USE SMARTSET 27826 05/18/202505/18, 05/12/2024, 05/12/2024, Additional history exists DXA Scan 07/05/2025 07/05/2023, 10/19, 11/04/2018, Additional history exists DTaP,Tdap,and Td Vaccines (2 - Td or Tdap) 08/19/2027 08/19/2017, 08/20/2008 Pneumococcal Vaccine: 65+ Years Completed 06/23/2015, 05/14/2013, 04/18/2004 Zoster Vaccines Completed 12/02/2020, 08/15/2020 VITAMIN D LEVEL ONCE IN A LIFETIME-USE SMARTSET# 17214 Completed 04/22/2023, 08/28/2021, 07/14/2015 HPV (Gardasil) Vaccine Aged Out No lo nger eligible based on patient's age to complete this topic Hepatitis B Vaccine Aged Out No longe r eligible based on patient's age to complete this topic MENINGOCOCCAL (MENACTRA/MENVEO) Aged Out No longer eligible based on patient's age to complete this topic documented as of this encounter Medical Devices Implanted Type Area Hot Roll Inspector Device Identifier Shelf Expiration Date Model / Serial / Lot Power Port 8fr Sngl Lumen Plas - [id number] Implanted:Qty: 1 on 02/22/2022 at [facility] CR BARD : PERIPHERAL VASCULAR [id number] 02/15/2023 [id number] / / [id number] documented as of this encounter Visit Diagnoses Diagnosis 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
--- OUTSIDE RECORDS SUMMARY | 2024-05-28 18:24 | External Medical Summary ---
Author Name Unknown Address Unknown Organization [id number]:LABORATORY [facility] - [address] [facility] [place] [address] Laboratory Report Ordering Provider Test Date Status ADRIENNE SALCIDO 05/25/2024 11:05:14 Final Observation Date Value Abnormality Reference (Units ) Status SYNC LEUKOCYTES IN BLOOD BY AUTOMATED COUNT 05/25/2024 11:05:14 6.43 4.00-10.80 (K/uL) Final Segs 05/25/2024 11:05:14 84.7 Above high normal 40.0-75.0 (%) Final Lymphs % 05/25/2024 11:05:14 4.8 Below low normal 18.0-42.0 (%) Final Monos 05/25/2024 11:05:14 7.2 1.0-11.0 (%) Final Eosinophils 05/25/2024 11:05:14 1.4 0.0-6.0 (%) Final Basos 05/25/2024 11:05:14 0.8 0.0-2.0 (%) Final Immature Granulocyte, Percent 05/25/2024 11:05:14 1.1 0.0-2.0 (%) Final Absolute Segs 05/25/2024 11:05:14 5.45 1.80-7.70 (K/uL) Final Lymphs, absolute 05/25/2024 11:05:14 0.31 Below low normal 1.00-4.80 (K/ul) Final Monos, Abs 05/25/2024 11:05:14 0.46 0.00-1.10 (K/uL) Final Eos, Abs 05/25/2024 11:05:14 0.09 0.00-0.70 (K/uL) Final Basos, Abs 05/25/2024 11:05:14 0.05 0.00-0.20 (K/uL) Final Immature Granulocytes, Number 05/25/2024 11:05:14 0.07 0.00-0.20 (K/uL) Final Performing Location LAB[facility]ORY [facility] - [facility] [address]. [facility] [address]
--- OUTSIDE RECORDS SUMMARY | 2024-05-28 18:24 | External Medical Summary | Summary of Care ---
Author Name Unknown Organization [facility] Address [address] [place] [address] Phone [phone] Care Team Providers Care Adult Care Provider Name Role Phone Unavailable Primary Care Provider Unavailabl e Reason for Visit * Reason Comments Medication Administration Retacrit 40,00 0 units * Episode Based Medications (Routine) - Authorized Specialty Diagnoses / Procedures Referred By Aaron vines Referred To Contact Diagnoses Carcinoma of bladder (HCC) Iron deficiency anemia, unspecified iron deficiency anemia type Chronic kidney disease, stage 3b (HCC) Procedures LA INJ RETACRIT NON-ESRD USE LA THERAPEUTIC PROPHYLACTIC/DX INJECTION SUBQ/IM LA EPOETIN IVAN, NON-ESRD Ludwig Louis MD [address] [place] [address] Anc Hem/Onc Dony Hickman DEPT CLOSED - 10/01/23 [address] [place] [address] Referral ID Status Reason Start Date Expiration Date V isits Requested Visits Authorized [id number] Authorized 02/05/2024 07/22/2024 [id number] Encounter Details Date Type Department Care Team (Late st Contact Info) Description 05/13/2024 10:45 AM EDT Immunization/I njection Hematology/Oncology Treatment, [place] [address] [place] [address] Nurse, Med [address] [address] Carcinoma of bladder (HCC)*; Iron deficiency anemia, [...] 10/20/2019 Active Vitamin B12 500 MCG Oral TabletIndications: [...] albuterol 120 mL 5 11/21/2022 Active Ipratropium [place] 0.02 % Inhalation Solution (Atrovent)Indicati ons:Moderate persistent asthma without complication Inhale 2.5 mL via nebulizer in the morning and 2.5 mL at noon and 2.5 mL in the evening and 2.5 mL before bedtime. Mix with albuterol solution. 75 mL 12 11/21/2022 Active Spiriva Respimat 2.5 MCG/ACT Inhalation Aerosol Solution (Tiotropium [place] Monohydrate)Indica tions:Moderate persistent asthma without complication INHALE 2 PUFFS BY MOUTH EVERY DAY 12 g 3 04/30/2023 Active Spironolactone 25 MG Oral Tablet (Aldactone)Indicat [...] (Coumadin)Indicati ons:Pulmonary embolism and infarction (HCC) TAKE 0.5-1 TABLETS BY MOUTH EVERY EVENING. OR TAKE INSTRUCTED BY THE [facility] 90 Tablet 3 05/07/2024 Active Levothyroxine Sodium 125 MCG Oral Tablet (Levoxyl)Indicatio ns:Carcinoma of bladder (HCC) TAKE 1 TAB BY MOUTH DAILY FIRST THING IN THE MORNING AT LEAST 30 MIN PRIOR TO BREAKFAST/OTHER MEDS 90 Tablet 2 05/07/2024 Active Tamsulosin HCl 0.4 MG Oral Capsule (Flomax)Indication s:BPH without obstruction/lower urinary tract symptoms Take 1 Capsule by mouth in the morning. 90 Capsule 3 05/07/2024 Active Erythromycin 5 MG/GM Ophthalmic Ointment Instill 0.25 Inches into eye at bedtime. 3.5 g 3 12/16/2023 Discontinue d(Patient preference/ discontinua tion) documented as of this encounter (statuses as [...] rinse after steroid. Test performed by Sameer CHAIN BUILDER LOOM CONTROL CPFT Pleural plaque due to asbestos exposure Restrictive lung disease Overview: In Check dial performed to assess inhaler technique: 12/15/19 Name of inhalers Albuterol Pass: Yes at 60 L/min and Advair Pass: Yes at 60 L/min. Encouraged to to take deep breath, use aero chamber, and rinse after steroid. 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 Overview: [place] C0-M6 documented as of this encounter (statuses [...] Malignant neoplasm of prostate 09/23/2008 03/27/2018 Overview: [place] grade 3 Atrial flutter 09/02/2007 10/16/2007 [...] mRNA, LNP-s, No Pre serve, 2-Dose Series (Wiggio) 12/01/2021,01/16/2021,12/26/2020 COVID-19, LNP-s, No Preserve , Ozzy-sucrose, Ages 12+ (Wiggio) 12/01/2021 COVID-19, MRNA-LNP, 23-24, P F, 30 MCG/0.3 mL, 12 YRS AND ABOVE, IM (AdMobius-Comirnat) 09/18/2023 Covid-19, Mrna, Lnp-s, Pf, B ivalent, 30 Mcg, IM, 12 yrs and above (Wiggio) 10/09/2022 Pneumococcal Conjugate Vacc, 13 Valent (Prevnar) [...] Sign Reading Time Taken Comments Blood Pressure 110/66 05/13/2024 9:52 AM EDT Pulse - - Temperature - - Respiratory Rate - - Oxygen Saturation - - Inhaled Oxygen Concentration - - Weight - - Height - - Body Mass Index - - documented in this encounter Nursing Notes * Venecia Infante LPN - 05/13/2024 10:59 AM EDT Retacrit 40,000 units administered SQ into left upper extremity per standing order. HGB 8.2 Patient tolerated and will return in 1 week to get the new increased dose of 60,000 units after prior authorization is completed from insurance company documented in this encounter Plan of Treatment Upcoming Encounters Date Type Department Care Team (Latest Contact Info) Description 4 10:00 AM EDT Laboratory Laboratory [employer] [address] [place] [phone] Kailyn Hickman [address] [address] 4 10:30 AM EDT Immunization/Inject ion Hematology/Onc ology Treatment, [place] [address] [place] [phone] Nurse, Med 4 200 [facility] [place] [address] 4 6:45 AM EDT Anticoagulation Centralized Clinical Pharmacy Services, [facility] Chan [address] [place] [address] [place] [address] [place] [address] 4 10:20 AM EDT Office Visit Family Medicine [address] [place] [phone] Juancho Romero MD [address] [place] [address] [place] [address] 4 10:00 AM EDT Laboratory Laboratory [place] [facility] [place] [address] [place] [phone] Kailyn Hickman [address] [address] 4 10:45 AM EDT Immunization/Inject ion Hematology/Onc ology Treatment, [place] 200 [facility] [place] [phone] Nurse, Med [address] [address] 4 6:30 AM EDT Anticoagulation Centralized Clinical Pharmacy Services, Angela Giles [address] [place] [address] [place] [address] Ccps, [address] [place] [address] 4 10:00 AM EDT Laboratory Laboratory [facility] [place] 200 [facility] [place] [phone] Park, Lab Scenery [address] [address] 4 10:30 AM EDT Immunization/Inject ion Hematology/Onc ology Treatment, [place] 200 [facility] [place] [phone] Nurse, Med [address] [address] 4 10:10 AM EDT Laboratory Laboratory [facility] [place] [address] [place] [phone] Park, Lab Scenery [address] [address] 4 10:30 AM EDT Immunization/Inject ion Hematology/Onc ology Treatment, [place] 200 [facility] [place] [phone] Nurse, Med [address] [address] 4 8:40 AM EDT Office Visit Rheumatology [address] [place] [phone] Win Nielsen MD [address] [facility] [place] [address] 4 11:45 AM EDT Hospital Encounter [facility] Endoscopy Suite, HFAM 1, [address] [place] [address] Domingo Garcia DO [address] [place] [address] 4 11:45 AM EDT - 4 1:00 PM EDT Surgery [facility], Endoscopy Suite, [facility]AM 1, [address] [place] [address] Domingo Garcia DO [address] [place], [place] [id number] ESOPHAGOGASTRODUODENOSCOPY (EGD), FLEXIBLE, TRANSORAL, DIAGNOSTIC 5 11:20 AM EST Office Visit Family Medicine [address] [place] [phone] Bell Mcqueen MD [address] [place] [address] [place] [address] Scheduled Procedures Name Priority Associated Diagnoses Date/Ti me ESOPHAGOGASTRODUODENOSCOPY ( EGD), FLEXIBLE, TRANSORAL, DIAGNOSTIC Recall Stark's esophagus with dysplasia 08/27/2024 11:45 AM EDT COLONOSCOPY FLEXIBLE PROXIMA L DIAGNOSTIC Recall Stark's esophagus with dysplasia 08/27/2024 11:45 AM EDT Health Maintenance Due Date Last Done Comments Depression Screening 07/12/2021 07/12/2020 CKD PHOS USE SMARTSET 53298 08/21/2022 10/02/2021, 07/12/2020, 03/13/2019, Additional history exists *BISPHONATE OR [...] Additional history exists CKD HGB USE SMARTSET 76261 05/18/202505/18, 05/12/2024, 05/12/2024, Additional history exists DXA Scan 07/05/2025 07/05/2023, 10/19, 11/04/2018, Additional history exists DTaP,Tdap,and Td Vaccines (2 - Td or Tdap) 08/19/2027 08/19/2017, 08/20/2008 Pneumococcal Vaccine: 65+ Years Completed 06/23/2015, 05/14/2013, 04/18/2004 Zoster Vaccines Completed 12/02/2020, 08/15/2020 VITAMIN D LEVEL ONCE IN A LIFETIME-USE SMARTSET# [id number] Completed 04/22/2023, 08/28/2021, 07/14/2015 HPV (Gardasil) Vaccine Aged Out No lo nger eligible based on patient's age to complete this topic Hepatitis B Vaccine Aged Out No longe r eligible based on patient's age to complete this topic MENINGOCOCCAL (MENACTRA/MENVEO) Aged Out No longer eligible based on patient's age to complete this topic documented as of this encounter Medical Devices Implanted Type Area Skeins Yarn Examiner Device Identifier Shelf Expiration Date Model / Serial / Lot Power Port 8fr Sngl Lumen Plas - [id number] Implanted:Qty: 1 on 02/22/2022 at [facility] CR BARD : PERIPHERAL VASCULAR [id number] 02/15/2023 [id number] / / [id number] documented as of this encounter Visit Diagnoses [...] Date Dose Rate Site Epoetin Ivan-epbx (Retacrit) 76806 UNIT/ML inj 40,000 Units 40,000 Units, Subcutaneous, ONCE, On Sat05/13/24 at 1130, For 1 dose Given 05/13/2024 10:56 AM EDT 40,000 Units Arm Left Upper documented in this encounter Advance Directives * Full Code (Latest Code Status on File) Date Activated Date Inactivated Comments 09/03/2007 7:29 AM 09/03/2007 4:02 PM
--- OUTSIDE RECORDS SUMMARY | 2024-05-28 18:24 | External Medical Summary | Summary of Care ---
Author Name Unknown Organization [facility] Address [address] [place] [address] Phone [phone] Care Team Providers Care Chargemaster Specialist Name Role Phone Unavailable Primary Care Provider Unavailabl e Reason for Visit * Reason Comments Medication Administration Retacrit 40,00 0 units * Episode Based Medications (Routine) - Authorized Specialty Diagnoses / Procedures Referred By Aaron vines Referred To Contact Diagnoses Carcinoma of bladder (HCC) Iron deficiency anemia, unspecified iron deficiency anemia type Chronic kidney disease, stage 3b (HCC) Procedures MT INJ RETACRIT NON-ESRD USE MT THERAPEUTIC PROPHYLACTIC/DX INJECTION SUBQ/IM MT EPOETIN IVAN, NON-ESRD Ludwig Louis MD [address] [place] [address] Anc Hem/Onc Dony Hickman DEPT CLOSED - 10/01/23 [address] [place] [phone] Referral ID Status Reason Start Date Expiration Date V isits Requested Visits Authorized [id number] Authorized 02/05/2024 07/22/2024 999 999 Encounter Details Date Type Department Care Team (Late st Contact Info) Description 05/13/2024 10:45 AM EDT Immunization/I njection Hematology/Oncology Treatment, [place] [address] [place] [phone] Nurse, Med [address] [address] Carcinoma of bladder (HCC)*; Iron deficiency anemia, [...] as of this encounter (statuses as of 05/24/2024) Medications Medication Sig Dispensed Refills Start Date [...] albuterol 120 mL 5 11/21/2022 Active Ipratropium [place] 0.02 % Inhalation Solution (Atrovent)Indicatio ns:Moderate persistent asthma without complication Inhale 2.5 mL via nebulizer in the morning and 2.5 mL at noon and 2.5 mL in the evening and 2.5 mL before bedtime. Mix with albuterol solution. 75 mL 12 11/21/2022 Active Spiriva Respimat 2.5 MCG/ACT Inhalation Aerosol Solution (Tiotropium [place] Monohydrate)Indicat ions:Moderate persistent asthma without complication INHALE 2 PUFFS BY MOUTH EVERY DAY 12 g 3 04/30/2023 Active Spironolactone 25 MG Oral Tablet (Aldactone)Indicati [...] Tablet (Coumadin)Indicatio ns:Pulmonary embolism and infarction (HCC) TAKE 0.5-1 TABLETS BY MOUTH EVERY EVENING. OR TAKE INSTRUCTED BY THE [facility] 90 Tablet 3 05/07/2024 Active Levothyroxine Sodium 125 MCG Oral Tablet (Levoxyl)Indication s:Carcinoma of bladder (HCC) TAKE 1 TAB BY MOUTH DAILY FIRST THING IN THE MORNING AT LEAST 30 MIN PRIOR TO BREAKFAST/OTHER MEDS 90 Tablet 2 05/07/2024 Active Tamsulosin HCl 0.4 MG Oral Capsule (Flomax)Indications :BPH without obstruction/lower urinary tract symptoms Take 1 Capsule by mouth in the morning. 90 Capsule 3 05/07/2024 Active documented as of this encounter (statuses as of 05/24/2024) Active Problems Problem Noted Date Diagnosed Date [...] rinse after steroid. Test performed by Sameer NAPPER RUNNER CPFT Pleural plaque due to asbestos exposure Restrictive lung disease Overview: In Check dial performed to assess inhaler technique: 12/15/19 Name of inhalers Albuterol Pass: Yes at 60 L/min and Advair Pass: Yes at 60 L/min. Encouraged to to take deep breath, use aero chamber, and rinse after steroid. Test performed by Sameer NAPPER RUNNER CPFT Hx of pulmonary embolus 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 Overview: [place] C0-M6 documented as of this encounter (statuses as of 05/24/2024) Resolved Problems Problem Noted Date Diagnosed Date [...] as of this encounter (statuses as of 05/24/2024) Immunizations Name Administration Dates Next Due COVID-19 mRNA, LNP-s, No Pre serve, 2-Dose Series (VendRx) 12/01/2021,01/16/2021,12/26/2020 COVID-19, LNP-s, No Preserve , Ozzy-sucrose, Ages 12+ (Pfizer) 12/01/2021 COVID-19, MRNA-LNP, 23-24, P F, 30 MCG/0.3 mL, 12 YRS AND ABOVE, IM (2CODE Online-Comirnaty) 09/18/2023 Covid-19, Mrna, Lnp-s, Pf, B ivalent, 30 Mcg, IM, 12 yrs and above (VendRx) 10/09/2022 Pneumococcal Conjugate Vacc, 13 Valent (Prevnar) [...] Care Team (Latest Contact Info) Description 4 10:40 AM EDT Office Visit Family Medicine [address] [place] [phone] Juancho Romero MD [address] [place] [address] [place] [address] 4 10:00 AM EDT Laboratory Laboratory [facility] 200 [facility] [place] [phone] [place] [facility] [place] 200 [facility] [place] [address] 4 10:30 AM EDT Immunization/Inject ion Hematology/Onc ology Treatment, [place] [facility] [phone] Nurse, Med 4 [address] [place] [address] 4 10:00 AM EDT Laboratory Laboratory [facility] [place] [address] [place] [phone] [place] Lab [facility] [address] [facility] [place] [address] 4 10:45 AM EDT Immunization/Inject ion Hematology/Onc ology Treatment, [place] [facility] [phone] Nurse, Med 4 [address] [place] [address] 4 6:30 AM EDT Anticoagulation Centralized Clinical Pharmacy Services, Angela Giles [address] [place] [address] [address] [facility], [address] [place] [address] 4 10:00 AM EDT Laboratory Laboratory [facility] Hickman [place] [address] [place] [phone] [place] Lab Scenery [address] [place] [address] 4 10:30 AM EDT Immunization/Inject ion Hematology/Onc ology Treatment, [place] 200 [facility] [place] [phone] Nurse, Med 4 200 [facility] [place] [address] 4 10:10 AM EDT Laboratory Laboratory [facility] [place] [address] [place] [phone] [place] Lab Scenery 200 [facility] [place] [address] 4 10:30 AM EDT Immunization/Inject ion Hematology/Onc ology Treatment, [place] 200 [facility] [place] [phone] Nurse, Med 4 200 [facility] [place] [address] 4 8:40 AM EDT Office Visit Rheumatology [address] [place] [phone] Win Nielsen MD [address] [facility] [place] [address] 4 11:45 AM EDT Hospital Encounter ENDO [facility], Endoscopy Suite, HFAM 1, [address] [place] [address] Domingo Garcia DO [address] [place] [address] 4 11:45 AM EDT - 4 1:00 PM EDT Surgery [facility], Endoscopy Suite, HFAM 1, [address] [place] [address] Domingo Garcia DO [address] [place] [address] ESOPHAGOGASTRODUODENOSCOPY (EGD), FLEXIBLE, TRANSORAL, DIAGNOSTIC 5 11:20 AM EST Office Visit Family [address] [phone] Bell Mcqueen MD [address] [place] [address] [place] [phone] Scheduled Procedures Name Priority Associated Diagnoses Date/Ti me ESOPHAGOGASTRODUODENOSCOPY ( EGD), FLEXIBLE, TRANSORAL, DIAGNOSTIC Recall Stark's esophagus with dysplasia 08/27/2024 11:45 AM EDT COLONOSCOPY FLEXIBLE PROXIMA L DIAGNOSTIC Recall Stark's esophagus with dysplasia 08/27/2024 11:45 AM EDT Health Maintenance Due Date Last Done Comments Depression Screening 07/12/2021 07/12/2020 CKD PHOS USE SMARTSET 62185 08/21/2022 10/0 02/2021, 07/12/2020, 03/13/2019, Additional history [...] Additional history exists CKD HGB USE SMARTSET 52685 05/18/202505/18, 05/12/2024, 05/12/2024, Additional history exists DXA Scan 07/05/2025 07/05/2023, 10/19, 11/04/2018, Additional history exists DTaP,Tdap,and Td Vaccines (2 - Td or Tdap) 08/19/2027 08/19/2017, 08/20/2008 Pneumococcal Vaccine: 65+ Years Completed 06/23/2015, 05/14/2013, 04/18/2004 Zoster Vaccines Completed 12/02/2020, 08/15/2020 VITAMIN D LEVEL ONCE IN A LIFETIME-USE SMARTSET# [id number] Completed 04/22/2023, 08/28/2021, 07/14/2015 HPV (Gardasil) Vaccine Aged Out No lo nger eligible based on patient's age to complete this topic Hepatitis B Vaccine Aged Out No longe r eligible based on patient's age to complete this topic MENINGOCOCCAL (MENACTRA/MENVEO) Aged Out No longer eligible based on patient's age to complete this topic documented as of this encounter Medical Devices Implanted Type Area Limb Driver Device Identifier Shelf Expiration Date Model / Serial / Lot Power Port 8fr Sngl Lumen Plas - [id number] Implanted:Qty: 1 on 02/22/2022 at [facility] CR BARD : PERIPHERAL VASCULAR [id number] 02/15/2023 [id number] / / [id number] documented as of this encounter Visit Diagnoses [...] Date Dose Rate Site Epoetin Ivan-epbx (Retacrit) 96591 UNIT/ML inj 40,000 Units 40,000 Units, Subcutaneous, ONCE, On Sat05/13/24 at 1130, For 1 dose Given 05/13/2024 10:56 AM EDT 40,000 Units Arm Left Upper documented in this encounter Advance Directives * Full Code (Latest Code Status on File) Date Activated Date Inactivated Comments 09/03/2007 7:29 AM 09/03/2007 4:02 PM
--- OUTSIDE RECORDS SUMMARY | 2024-05-28 18:24 | External Medical Summary | Summary of Care ---
Author Name Unknown Organization [facility] Address [address] [place] [address] Phone [phone] Care Team Providers Care Head Mechanic Name Role Phone Unavailable Primary Care Provider Unavailabl e Reason for Visit * Reason Onset Date Comments medication change 05/25/2024 Encounter Details Date Type Department Care Team (Late st Contact Info) Description 05/25/2024 Telephone Pharmacy [facility] [address] [place] [address] [facility] [address] [place] [address] medication change Allergies Active Allergy Reactions Criticality Noted Date [...] albuterol 120 mL 5 11/21/2022 Active Ipratropium [place] 0.02 % Inhalation Solution (Atrovent)Indicat ions:Moderate persistent asthma without complication Inhale 2.5 mL via nebulizer in the morning and 2.5 mL at noon and 2.5 mL in the evening and 2.5 mL before bedtime. Mix with albuterol solution. 75 mL 12 11/21/2022 Active Spiriva Respimat 2.5 MCG/ACT Inhalation Aerosol Solution (Tiotropium [place] Monohydrate)Indic ations:Moderate persistent asthma without complication INHALE [...] Tablet Extended Release 12 Hour (Humibid LA)Indications:Ac salamatof cough Take 1 Tablet by mouth in [...] EVERY EVENING. OR TAKE INSTRUCTED BY THE [facility] 90 Tablet 3 05/07/2024 [...] this for 10 days. 20 Capsule 05/25/2024 07/18/202 4 Active Torsemide 100 MG Oral Tablet [...] rinse after steroid. Test performed by Sameer END TRIMMER CPFT Pleural plaque due to asbestos exposure Restrictive lung disease Overview: In Check dial performed to assess inhaler technique: 12/15/19 Name of inhalers Albuterol Pass: Yes at 60 L/min and Advair Pass: Yes at 60 L/min. Encouraged to to take deep breath, use aero chamber, and rinse after steroid. Test performed by Sameer END TRIMMER CPFT Hx of pulmonary embolus 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 Overview: [place] C0-M6 documented as of this encounter (statuses [...] mRNA, LNP-s, No Pre serve, 2-Dose Series ([employer]) 12/01/2021,01/16/2021,12/26/2020 COVID-19, LNP-s, No Preserve , Ozzy-sucrose, Ages 12+ (Pfizer) 12/01/2021 COVID-19, MRNA-LNP, 23-24, P F, 30 MCG/0.3 mL, 12 YRS AND ABOVE, IM ([facility]) 09/18/2023 Covid-19, Mrna, Lnp-s, Pf, B ivalent, 30 Mcg, IM, 12 yrs and above ([employer]) 10/09/2022 Pneumococcal Conjugate Vacc, 13 Valent (Prevnar) [...] Miscellaneous Notes * Telephone Encounter - Tammie Scruggs, [facility] - 05/25/2024 3:39 PM EDT Medication Therapy Disease Management - Anticoagulation Patient: Patrick Robles : 1935 Cou[facility] Phone: (region specific) Patient Current coumadin dosing: Current Warfarin Dose As of 05/25/2024 Warfarin maintenance plan: 0 mg every Mon, Fri; 2.5 mg (5 mg x 0.5) all other days Patient prescribed Bactrim DS twice daily for 10 days. Which will necessitate a decrease in coumadin dosing while taking medication. Pt currently holding Warfarin for EGD/colonscopy on 05/29. aware to call with any changes or ifprocedure postponed. [facility] will follow up on 05/29 to give further dosing since Bactrim Rx is for 10 days. Please contact [facility] with any Nausea, Vomitting or Diarrhea as well as any bruising or bleeding. Spoke to patient and advised dosing and INR date as above. Patient verbalized understanding of above and had no further questions at this time. Tammie Scruggs Rph, Pharm.D. Clinical Pharmacist [facility] ([facility]) [phone] 05/25/2024,3:39 PM * Telephone Encounter - Rosalie Bai RPh - 05/25/2024 10:52 AM EDT Images from the original note were not included. Please see the following BPA for patient: Date User Triggers Comment 05/25/24 1049 Juancho Romero MD [[id number]] Sign Orders Medication - ERX: SULFAMETHOXAZOLE-TRIMETHOPRIM 800-160 MG OR TABS [[id number]] Medication - ERX: WARFARIN SODIUM 5 MG OR TABS [[id number]] Order - ORD: Warfarin Sodium 5 MG Oral Tablet (Coumadin) [[id number]] Order - ORD: Sulfamethoxazole-Trimethoprim 800-160 MG Oral Tablet (Bactrim DS) [[id number]] Non Rosalie Bai RPh, PharmD, BCACP Clinical Pharmacist Medication Therapy Management Clinic 05/25/24, 10:52 AM documented in this encounter Plan of Treatment Upcoming Encounters Date Type Department Care Team (Latest Contact Info) Description 10:00 AM EDT Laboratory Laboratory [facility] Ziggy Overton [address] [place] [phone] Kailyn Hickman [address] [place] [address] 4 10:30 AM EDT Immunization/Inject ion Hematology/Onc ology Treatment, [place] 200 [facility] [place] [phone] Nurse, Med 4 200 [facility] [place] [address] 4 10:20 AM EDT Office Visit Family [address] [place] [phone] PilJuancho ekys MD [address] [place] [address] [place] [address] 4 10:00 AM EDT Laboratory Laboratory [facility] [place] 200 [facility] [place] [phone] Marylou, Lab Scenery 200 [facility] [place] [address] 4 10:45 AM EDT Immunization/Inject ion Hematology/Onc ology Treatment, [place] 200 [facility] [place] [phone] Nurse, Med 4 200 [facility] [place] [address] 4 6:30 AM EDT Anticoagulation [facility], Angela Giles [address] [place] [address] [place] [address] [facility], [address] [place] [address] 4 10:00 AM EDT Laboratory Laboratory [facility] Marylou Tyn[place] [address] [place] [phone] Marylou, Lab Scenery 200 [facility] [place] [address] 4 10:30 AM EDT Immunization/Inject ion Hematology/Onc ology Treatment, [address] [place] [phone] Nurse, Med 4 [address] [place] [address] 4 10:10 AM EDT Laboratory Laboratory [facility] [address] [place] [phone] Park, Lab [facility] 200 [facility] [place] [address] 4 10:30 AM EDT Immunization/Inject ion Hematology/Onc ology Treatment, [place] 200 [facility] [phone] Nurse, Med 4 200 [facility] [place] [address] 4 8:40 AM EDT Office Visit Rheumatology [address] [place] [address] Win Nielsen MD [facility] [place] [address] 4 11:45 AM EDT Hospital Encounter [facility], Endoscopy Suite, HFAM 1, [address] [place], [place] [id number] Domingo Garcia DO [address] [facility] [place] [phone] 4 11:45 AM EDT - 4 1:00 PM EDT Surgery [facility]O [facility], Endoscopy Suite, HFAM 1, [address] [place], [place] [id number] Domingo Garcia DO [address] [facility] [id number] ESOPHAGOGASTRODUODENOSCOPY (EGD), FLEXIBLE, TRANSORAL, DIAGNOSTIC 5 11:20 AM EST Office Visit Family Medicine [address] [place] [phone] Bell Mcqueen MD [address] [place] [address] [place] [address] Scheduled Procedures Name Priority Associated Diagnoses Date/Ti me ESOPHAGOGASTRODUODENOSCOPY ( EGD), FLEXIBLE, TRANSORAL, DIAGNOSTIC Recall Stark's esophagus with dysplasia 08/27/2024 11:45 AM EDT COLONOSCOPY FLEXIBLE PROXIMA L DIAGNOSTIC Recall Stark's esophagus with dysplasia 08/27/2024 11:45 AM EDT Health Maintenance Due Date Last Done Comments Depression Screening 07/12/2021 07/12/2020 CKD PHOS USE SMARTSET 80674 08/21/202202/2021, 07/12/2020, 03/13/2019, Additional history exists *BISPHONATE [...] Additional history exists CKD HGB USE SMARTSET 32265 05/18/202505/18, 05/12/2024, 05/12/2024, Additional history exists DXA Scan 07/05/2025 07/05/2023, 10/19, 11/04/2018, Additional history exists DTaP,Tdap,and Td Vaccines (2 - Td or Tdap) 08/19/2027 08/19/2017, 08/20/2008 Pneumococcal Vaccine: 65+ Years Completed 06/23/2015, 05/14/2013, 04/18/2004 Zoster Vaccines Completed 12/02/2020, 08/15/2020 VITAMIN D LEVEL ONCE IN A LIFETIME-USE SMARTSET# 31295 Completed 04/22/2023, 08/28/2021, 07/14/2015 HPV (Gardasil) Vaccine Aged Out No lo nger eligible based on patient's age to complete this topic Hepatitis B Vaccine Aged Out No longe r eligible based on patient's age to complete this topic MENINGOCOCCAL (MENACTRA/MENVEO) Aged Out No longer eligible based on patient's age to complete this topic documented as of this encounter Medical Devices Implanted Type Area Massage Therapist Device Identifier Shelf Expiration Date Model / Serial / Lot Power Port 8fr Sngl Lumen Plas - [id number] Implanted:Qty: 1 on 02/22/2022 at [facility] CR BARD : PERIPHERAL VASCULAR [id number] 02/15/2023 [id number] / / [id number] documented as of this encounter Visit Diagnoses Diagnosis Hx of pulmonary embolus- Primary Personal history of pulmonary embolism Longstanding persistent atrial fibrillation (HCC) Stark's esophagus with dysplasia Stark's esophagus documented in this encounter Advance Directives * Full Code (Latest Code Status on File) Date Activated Date Inactivated Comments 09/03/2007 7:29 AM 09/03/2007 4:02 PM
--- OUTSIDE RECORDS SUMMARY | 2024-05-28 18:24 | External Medical Summary | Summary of Care ---
Author Name Unknown Organization [facility] Address [address] [place] [address] Phone [phone] Care Team Providers Care Senior Safety Management Consultant Name Role Phone Unavailable Primary Care Provider Unavailabl e Reason for Visit * Reason Comments Medication Administration Retacrit * Episode Based Medications (Routine) - Authorized Specialty Diagnoses / Procedures Referred By Aaron vines Referred To Contact Diagnoses Carcinoma of bladder (HCC) Iron deficiency anemia, unspecified iron deficiency anemia type Chronic kidney disease, stage 3b (HCC) Procedures KS INJ RETACRIT NON-ESRD USE KS THERAPEUTIC PROPHYLACTIC/DX INJECTION SUBQ/IM KS EPOETIN IVAN, NON-ESRD Ludwig Louis MD 200 [facility] [place] [address] Anc Hem/Onc Dony Hickman DEPT CLOSED - 10/01/23 [address] [place] [address] Referral ID Status Reason Start Date Expiration Date V isits Requested Visits Authorized [id number] Authorized 02/05/2024 07/22/2024 999 [id number] Encounter Details Date Type Department Care Team (Late st Contact Info) Description 05/06/2024 2:00 PM EDT Immunization/I njection Hematology/Oncology Treatment, [place] [address] [place] [phone] Nurse, Med 4 200 Dony Clark [place] [address] Carcinoma of bladder (HCC)*; Iron deficiency anemia, [...] albuterol 120 mL 5 3 Active Ipratropium [place] 0.02 % Inhalation Solution (Atrovent)Indica tions:Moderate persistent asthma without complication Inhale 2.5 mL via nebulizer in the morning and 2.5 mL at noon and 2.5 mL in the evening and 2.5 mL before bedtime. Mix with albuterol solution. 75 mL 12 3 Active Spiriva Respimat 2.5 MCG/ACT Inhalation Aerosol Solution (Tiotropium [place] Monohydrate)Samara cations:Moderate persistent asthma without complication INHALE [...] ill) Warfarin Sodium 5 MG Oral Tablet (Coumadin)Indica tions:Pulmonary embolism and infarction (HCC) Take 0.5-1 Tablets by mouth every evening. Or take as instructed by the [facility] 90 Tablet 3 3 05/07/20 24 Discontinued Levothyroxine Sodium 125 MCG Oral Tablet (Levoxyl)Indicat ions:Carcinoma of bladder (HCC) TAKE 1 TAB BY MOUTH DAILY FIRST THING IN THE MORNING AT LEAST 30 MIN PRIOR TO BREAKFAST/OTHER MEDS 90 Tablet 4 05/07/20 24 Discontinued [...] rinse after steroid. Test performed by Sameer MANAGER COMMUNITY OUTREACH CPFT Pleural plaque due to asbestos exposure Restrictive lung disease Overview: In Check dial performed to assess inhaler technique: 12/15/19 Name of inhalers Albuterol Pass: Yes at 60 L/min and Advair Pass: Yes at 60 L/min. Encouraged to to take deep breath, use aero chamber, and rinse after steroid. Test performed by Sameer MANAGER COMMUNITY OUTREACH CPFT Hx of pulmonary embolus 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 Overview: [place] C0-M6 documented as of this encounter (statuses [...] Malignant neoplasm of prostate 09/23/2008 03/27/2018 Overview: [place] grade 3 Atrial flutter 09/02/2007 10/16/2007 Herpes [...] mRNA, LNP-s, No Pre serve, 2-Dose Series ([employer]) 12/01/2021,01/16/2021,12/26/2020 COVID-19, LNP-s, No Preserve , Ozzy-sucrose, Ages 12+ ([employer]) 12/01/2021 COVID-19, MRNA-LNP, 23-24, P F, 30 MCG/0.3 mL, 12 YRS AND ABOVE, IM ([employer]) 09/18/2023 Covid-19, Mrna, Lnp-s, Pf, B ivalent, 30 Mcg, IM, 12 yrs and above ([employer]) 10/09/2022 Pneumococcal Conjugate Vacc, 13 Valent [...] 10:40 AM EDT Office Visit Family Medicine [address] [phone] Juancho Romero MD [address] [place] [address] [place] [address] 4 10:00 AM EDT Laboratory Laboratory [facility] [address] [place] [phone] [facility] [address] [facility] [place] [address] 4 10:30 AM EDT Immunization/Inject ion Hematology/Onc ology Treatment, [address] [phone] Nurse, Med 200 [facility] [place] [address] 4 10:00 AM EDT Laboratory Laboratory [facility] [place] [address] [place] [phone] [facility] [place] [address] Dony Clark [facility] [place] [address] 4 10:45 AM EDT Immunization/Inject ion Hematology/Onc ology Treatment, [address] [phone] Nurse, Med [address] [place] [address] 4 6:30 AM EDT [facility] Clinical Pharmacy Services, Angela Giles [address] [place] [address] [place] [address] [facility], [address] [place] [address] 4 10:00 AM EDT Laboratory Laboratory [facility] [place] [address] [place] [phone] [place], Lab [address]en[address] 200 [facility] [place] [address] [address] 4 10:30 AM EDT Immunization/Inject ion Hematology/Onc ology Treatment, [place] 200 [facility] [place] [phone] Nurse, Med 4 [address] [place] [address] 4 10:10 AM EDT Laboratory Laboratory [facility] [place] [address] [place] [phone] [place], Lab Scenery 200 [facility] [place] [address] 4 10:30 AM EDT Immunization/Inject ion Hematology/Onc ology Treatment, [place] 200 [facility] [place] [address] Nurse, Med 4 [address] [place] [address] 4 8:40 AM EDT Office Visit Rheumatology [address] [place] [phone] Win Nielsen MD [address] [facility] [place] [address] 4 11:45 AM EDT Hospital Encounter [facility] [place], Endoscopy Suite, HFAM 1, [address] [place] [address] Domingo Garcia, [address] [place] [address] 4 11:45 AM EDT - 4 1:00 PM EDT Surgery [facility] [place], Endoscopy Suite, HFAM 1, [address] [place] [address] Domingo Garcia DO [address] [place], [place] [phone] ESOPHAGOGASTRODUODENOSCOPY (EGD), FLEXIBLE, TRANSORAL, DIAGNOSTIC 5 11:20 AM EST Office Visit [address] [place] [address] Bell Mcqueen MD [address] [place] [address] [place] [address] Scheduled Procedures Name Priority Associated Diagnoses Date/Ti me ESOPHAGOGASTRODUODENOSCOPY ( EGD), FLEXIBLE, TRANSORAL, DIAGNOSTIC Recall Stark's esophagus with dysplasia 08/27/2024 11:45 AM EDT COLONOSCOPY FLEXIBLE PROXIMA L DIAGNOSTIC Recall Stark's esophagus with dysplasia 08/27/2024 11:45 AM EDT Health Maintenance Due Date Last Done Comments Depression Screening 07/12/2021 07/12/2020 CKD PHOS USE SMARTSET 91870 08/21/2022 10/0 02/2021, 07/12/2020, 03/13/2019, Additional history [...] Additional history exists CKD HGB USE SMARTSET 25055 05/18/202505/18, 05/12/2024, 05/12/2024, Additional history exists DXA Scan 07/05/2025 07/05/2023, 10/19, 11/04/2018, Additional history exists DTaP,Tdap,and Td Vaccines (2 - Td or Tdap) 08/19/2027 08/19/2017, 08/20/2008 Pneumococcal Vaccine: 65+ Years Completed 06/23/2015, 05/14/2013, 04/18/2004 Zoster Vaccines Completed 12/02/2020, 08/15/2020 VITAMIN D LEVEL ONCE IN A LIFETIME-USE SMARTSET# [id number] Completed 04/22/2023, 08/28/2021, 07/14/2015 HPV (Gardasil) Vaccine Aged Out No lo nger eligible based on patient's age to complete this topic Hepatitis B Vaccine Aged Out No longe r eligible based on patient's age to complete this topic MENINGOCOCCAL (MENACTRA/MENVEO) Aged Out No longer eligible based on patient's age to complete this topic documented as of this encounter Medical Devices Implanted Type Area Bundling Machine Operator Device Identifier Shelf Expiration Date Model / Serial / Lot Power Port 8fr Sngl Lumen Plas - [id number] Implanted:Qty: 1 on 02/22/2022 at [facility] CR BARD : PERIPHERAL VASCULAR [id number] 02/15/2023 [id number] / / [id number] documented as of this encounter Visit Diagnoses [...] Date Dose Rate Site Epoetin Ivan-epbx (Retacrit) 83459 UNIT/ML inj 40,000 Units 40,000 Units, Subcutaneous, ONCE, On Sat05/06/24 at 1430, For 1 dose Given 05/06/2024 1:59 PM EDT 40,000 Units Arm Left Upper documented in this encounter Advance Directives * Full Code (Latest Code Status on File) Date Activated Date Inactivated Comments 09/03/2007 7:29 AM 09/03/2007 4:02 PM
--- OUTSIDE RECORDS SUMMARY | 2024-05-28 18:24 | External Medical Summary ---
Author Name Unknown Address Unknown Organization [id number]:LABORATORY [facility] - [address] [facility] [address] Laboratory Report Ordering Provider Test Date Status ADRIENNE SALCIDO 05/25/2024 11:05:14 Final Observation Date Value Abnormality Reference (Units ) Status WBC, Total 05/25/2024 11:05:14 6.43 4.00-10.80 (K/uL) Final RBC 05/25/2024 11:05:14 3.05 4.50-5.25 (M/uL) Final Hemoglobin 05/25/2024 11:05:14 8.0 Below low normal 14.0-16.8 (g/dL) Final HCT 05/25/2024 11:05:14 29.5 Below low normal 40.0-48.4 (%) Final MCV 05/25/2024 11:05:14 96.7 82.0-99.5 (fL) Final MCH 05/25/2024 11:05:14 26.2 27.0-34.0 (pg) Final MCHC 05/25/2024 11:05:14 27.1 32.0-36.0 (g/dL) Final RDW 05/25/2024 11:05:14 17.8 11.5-15.5 (%) Final Platelets 05/25/2024 11:05:14 151 140-400 (K/uL) Final MPV 05/25/2024 11:05:14 12.7 6.6-11.1 (fL) Final Nucleated erythrocytes/100 leukocytes [Ratio] in Blood by Automated count 05/25/2024 11:05:14 0 <=0 (/100 WBCs) Final Performing Location LABORATORY [facility] - [address] [facility] [address]
--- OUTSIDE RECORDS SUMMARY | 2024-05-28 18:24 | External Medical Summary | Summary of Care ---
Author Name Unknown Organization [facility] Address [address] [place] [address] Phone [phone] Care Team Providers Care Food General Manager Name Role Phone Unavailable Primary Care Provider Unavailabl e Reason for Visit * Reason Onset Date Comments medication change 05/25/2024 Encounter Details Date Type Department Care Team (Late st Contact Info) Description 05/25/2024 Telephone Pharmacy [facility] [address] [place] [address] [facility] [address] [place] [address] medication change Allergies Active Allergy [...] albuterol 120 mL 5 11/21/2022 Active Ipratropium [place] 0.02 % Inhalation Solution (Atrovent)Indicat ions:Moderate persistent asthma without complication Inhale 2.5 mL via nebulizer in the morning and 2.5 mL at noon and 2.5 mL in the evening and 2.5 mL before bedtime. Mix with albuterol solution. 75 mL 12 11/21/2022 Active Spiriva Respimat 2.5 MCG/ACT Inhalation Aerosol Solution (Tiotropium [place] Monohydrate)Indic ations:Moderate persistent asthma without complication INHALE [...] Tablet Extended Release 12 Hour (Humibid [place])Indications:[place] cough Take 1 Tablet by mouth in [...] EVERY EVENING. OR TAKE INSTRUCTED BY [facility] 90 Tablet 3 05/07/2024 [...] rinse after steroid. Test performed by Sameer FILTER CHANGER CPFT Pleural plaque due to asbestos exposure Restrictive lung disease Overview: In Check dial performed to assess inhaler technique: 12/15/19 Name of inhalers Albuterol Pass: Yes at 60 L/min and Advair Pass: Yes at 60 L/min. Encouraged to to take deep breath, use aero chamber, and rinse after steroid. Test performed by Sameer FILTER CHANGER CPFT Hx of pulmonary embolus 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 Overview: Str[place]ane C0-M6 documented as of this encounter (statuses [...] mRNA, LNP-s, No Pre serve, 2-Dose Series ([employer]) 12/01/2021,01/16/2021,12/26/2020 COVID-19, LNP-s, No Preserve , Ozzy-sucrose, Ages 12+ (Pfizer) 12/01/2021 COVID-19, MRNA-LNP, 23-24, P F, 30 MCG/0.3 mL, 12 YRS AND ABOVE, IM ([facility]) 09/18/2023 Covid-19, Mrna, Lnp-s, Pf, B ivalent, 30 Mcg, IM, 12 yrs and above ([employer]) 10/09/2022 Pneumococcal Conjugate Vacc, 13 Valent (Prevnar) [...] Miscellaneous Notes * Telephone Encounter - Rosalie Bai [facility] - 05/25/2024 10:52 AM EDT Images from the original note were not included. Please see the following BPA for patient: Date User Triggers Comment 05/25/24 [id number] Juancho Romero MD [[id number]] Sign Orders Medication - ERX: SULFAMETHOXAZOLE-TRIMETHOPRIM 800-160 MG OR TABS [[id number]] Medication - ERX: WARFARIN SODIUM 5 MG OR TABS [[id number]] Order - ORD: Warfarin Sodium 5 MG Oral Tablet (Coumadin) [[id number]] Order - ORD: Sulfamethoxazole-Trimethoprim 800-160 MG Oral Tablet (Bactrim DS) [[id number]] Non Rosalie Bai RPh, PharmD, BCACP Clinical Pharmacist Medication [facility] 05/25/24, 10:52 AM documented in this encounter Plan of Treatment Upcoming Encounters Date Type Department Care Team (Latest Contact Info) Description 4 11:20 AM EDT Laboratory Laboratory [address] [place] [phone] [place] [address] Urothelial carcinoma of bladder (HCC) 4 11:30 AM EDT Imaging Radiology [address] [place] [address] Arrived 4 10:00 AM EDT Laboratory Laboratory [facility] Marylou Harriet [address] [place] [phone] Marylou [address]en[address] [place] [address] 4 10:30 AM EDT Immunization/Inject ion Hematology/Onc ology Treatment, Harriet [address] [facility] [place] [phone] Nurse, Med [address] [place] [address] 4 10:00 AM EDT Laboratory Laboratory [facility] Marylou Harriet [address] [place] [phone] Marylou Lab Scenery [address] [address] 4 10:45 AM EDT Immunization/Inject ion Hematology/Onc ology Treatment, Harriet [address] [facility] [place] [phone] Nurse, Med [address] [place] [address] 4 6:30 AM EDT [facility] Clinical Pharmacy Services, Angela Giles [address] [place] [address] [place] [address] [facility], [address] [place] [address] 4 10:00 AM EDT Laboratory Laboratory [facility] Marylou Harriet [address] [place] [phone] Marylou, Lab Scenery [address] [address] 4 10:30 AM EDT Immunization/Inject ion Hematology/Onc ology Treatment, Harriet 200 [facility] [place] [phone] Nurse, Med [address] [address] 4 10:10 AM EDT Laboratory Laboratory [facility] Marylou Harriet [address] [place] [phone] Marylou, Lab Scenery [address] [facility] [place] [address] 4 10:30 AM EDT Immunization/Inject ion Hematology/Onc ology Treatment, Harriet [address] [facility] [place] [phone] Nurse, Med [address] [address] 4 8:40 AM EDT Office Visit Rheumatology [address] [place] [phone] Win Nielsen MD [address] [facility] [place] [address] 4 11:45 AM EDT Hospital En[place] [facility] [place], [facility] 1, [address] [place] [facility] [place] [address] Domingo Garcia DO [address] [place] [facility] [place] [address] 4 11:45 AM EDT - 4 1:00 PM EDT Surgery [place] [facility] [place] End[place] Suite, [facility] 1, [address] [place] [address] Domingo Garcia DO [address] [place] [facility] [place] [address] ESOPHAGOGASTRODUODENOSCOPY (EGD), FLEXIBLE, TRANSORAL, DIAGNOSTIC 5 11:20 AM EST Office Visit [address] [place] [phone] Bell Mcqueen MD [address] [place] [address] [place] [address] Scheduled Procedures Name Priority Associated Diagnoses Date/Ti me ESOPHAGOGASTRODUODENOSCOPY ( EGD), FLEXIBLE, TRANSORAL, DIAGNOSTIC Recall Stark's esophagus with dysplasia 08/27/2024 11:45 AM EDT COLONOSCOPY FLEXIBLE PROXIMA L DIAGNOSTIC Recall Stark's esophagus with dysplasia 08/27/2024 11:45 AM EDT Health Maintenance Due Date Last Done Comments Depression Screening 07/12/2021 07/12/2020 CKD PHOS USE SMARTSET 69227 08/21/2022 10/0 02/2021, 07/12/2020, 03/13/2019, Additional history [...] Additional history exists CKD HGB USE SMARTSET 95881 05/18/202505/18, 05/12/2024, 05/12/2024, Additional history exists DXA Scan 07/05/2025 07/05/2023, 10/19, 11/04/2018, Additional history exists DTaP,Tdap,and Td Vaccines (2 - Td or Tdap) 08/19/2027 08/19/2017, 08/20/2008 Pneumococcal Vaccine: 65+ Years Completed 06/23/2015, 05/14/2013, 04/18/2004 Zoster Vaccines Completed 12/02/2020, 08/15/2020 VITAMIN D LEVEL ONCE IN A LIFETIME-USE SMARTSET# [id number] Completed 04/22/2023, 08/28/2021, 07/14/2015 HPV (Gardasil) Vaccine Aged Out No lo nger eligible based on patient's age to complete this topic Hepatitis B Vaccine Aged Out No longe r eligible based on patient's age to complete this topic MENINGOCOCCAL (MENACTRA/MENVEO) Aged Out No longer eligible based on patient's age to complete this topic documented as of this encounter Medical Devices Implanted Type Area Counter Attendant Device Identifier Shelf Expiration Date Model / Serial / Lot Power Port 8fr Sngl Lumen Plas - [id number] Implanted:Qty: 1 on 02/22/2022 at [facility] CR BARD : PERIPHERAL VASCULAR [id number] 02/15/2023 [id number] / / [id number] documented as of this encounter Visit Diagnoses Diagnosis Hx of pulmonary embolus- Primary Personal history of pulmonary embolism Longstanding persistent atrial fibrillation (HCC) 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
--- OUTSIDE RECORDS SUMMARY | 2024-05-28 18:24 | External Medical Summary | Summary of Care ---
Author Name Unknown Organization [facility] Address [address] [place] [address] Phone [phone] Care Team Providers Care Blade Changer Name Role Phone Unavailable Primary Care Provider Unavailabl e Reason for Visit * Reason Comments Hospital Follow-Up Encounter Details Date Type Department Care Team (Late st Contact Info) Description 05/25/2024 10:40 AM EDT Office Visit Family Medicine [address] [phone] Juancho Romero MD [address] [place] [address] [place] [address] Cellulitis of left lower leg* Allergies Active Allergy Reactions Criticality Noted Date [...] albuterol 120 mL 5 3 Active Ipratropium [place] 0.02 % Inhalation Solution (Atrovent)Indicat ions:Moderate persistent asthma without complication Inhale 2.5 mL via nebulizer in the morning and 2.5 mL at noon and 2.5 mL in the evening and 2.5 mL before bedtime. Mix with albuterol solution. 75 mL 12 3 Active Spiriva Respimat 2.5 MCG/ACT Inhalation Aerosol Solution (Tiotropium [place] Monohydrate)Indic ations:Moderate persistent asthma without complication INHALE [...] Tablet Extended Release 12 Hour (Humibid LA)Indications:Ac capitan grande cough Take 1 Tablet by mouth in [...] as needed for Sleep. 30 Tablet 4 Active Warfarin Sodium 5 MG Oral Tablet (Coumadin)Indicat ions:Pulmonary embolism and infarction (HCC) TAKE 0.5-1 TABLETS BY MOUTH EVERY EVENING. OR TAKE INSTRUCTED BY [facility] 90 Tablet 3 4 Active Levothyroxine Sodium 125 MCG Oral Tablet (Levoxyl)Indicati ons:Carcinoma of bladder (HCC) TAKE 1 TAB BY MOUTH DAILY FIRST THING IN THE MORNING AT LEAST 30 MIN PRIOR TO BREAKFAST/OTHER MEDS 90 Tablet 2 4 Active Tamsulosin HCl 0.4 MG Oral Capsule (Flomax)Indicatio ns:BPH without obstruction/lower urinary tract symptoms Take 1 Capsule by mouth in the morning. 90 Capsule 3 4 Active Enoxaparin Sodium 60 MG/0.6ML Injection Solution Prefilled Syringe (Lovenox) Inject 60mg under the skin daily as directed by anticoagulation clinic for procedure 3 mL 4 Active Cephalexin 500 MG Oral Capsule (Keflex)Indicatio ns:Cellulitis of left lower leg Take 1 Capsule by mouth in the morning and 1 Capsule before bedtime. Do all this for 10 days. 20 Capsule 4 06/04/20 24 Active Torsemide 100 MG Oral Tablet (Demadex)Indicati ons:Cellulitis of left lower leg One daily for 3 days and as needed 10 Tablet 4 Active Sulfamethoxazole- Trimethoprim 800-160 MG Oral Tablet (Bactrim DS)Indications:Ce llulitis of left lower leg Take 1 Tablet by mouth in the morning and 1 Tablet before bedtime. Do all this for 10 days. Until gone.. 20 Tablet 4 06/04/20 24 Active Erythromycin 5 MG/GM Ophthalmic Ointment Instill 0.25 Inches into eye at bedtime. 3.5 g 3 4 02/10/20 24 Discontinu ed(Patient preference /discontin uation) documented as of this encounter (statuses as [...] rinse after steroid. Test performed by [facility] MAGISTRATE CPFT Hx of pulmonary embolus 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 Overview: [place] C0-M6 documented as of this encounter [...] Malignant neoplasm of prostate 09/23/2008 03/27/2018 Overview: Coulter grade 3 Atrial flutter 09/02/2007 10/16/2007 Herpes [...] mRNA, LNP-s, No Pre serve, 2-Dose Series ([employer]) 12/01/2021,01/16/2021,12/26/2020 COVID-19, LNP-s, No Preserve , Ozzy-sucrose, Ages 12+ (Pfizer) 12/01/2021 COVID-19, MRNA-LNP, 23-24, P F, 30 MCG/0.3 mL, 12 YRS AND ABOVE, IM ([employer]-Comirnaty) 09/18/2023 Covid-19, Mrna, Lnp-s, Pf, B ivalent, [...] Sign Reading Time Taken Comments Blood Pressure 104/58 05/25/2024 10:38 AM EDT Pulse 82 05/25/2024 10:38 AM EDT Temperature 36.1 C (97 F) 05/25/2024 10:38 AM EDT Respiratory Rate - - Oxygen Saturation - - Inhaled Oxygen Concentration - - Weight 67.1 kg (148 lb) 05/25/2024 10:38 AM EDT Height - - Body Mass Index 26.22 05/07/2024 10:23 AM EDT documented in this encounter Progress Notes * Juancho Romero MD - 05/25/2024 10:39 AM EDT Patrick was confused over the night and was seen the next day in the ER. Labs ok but he has a swollenred left lower leg where he scratched it on some metal. ER sent im home on doxycycline. It improvedthe first two days but now the swelling is worse, the pain is worse and the left leg and ankle really hurt. They would like an X-ray he has one day of the doxycycline left Patient Active Problem List Diagnosis History of tobacco use S/P AVR (aortic valve replacement) DIVERTICULOSIS OF COLON GENERAL OSTEOARTHROSIS SBE (subacute bacterial endocarditis) prophylaxis candidate ADVANCE DIRECTIVE INFORMATION BPH without obstruction/lower urinary tract symptoms Paroxysmal SVT (supraventricular tachycardia) (HCC) Spinal stenosis of lumbar region without neurogenic claudication Herniated nucleus pulposus, L4-5 right Asymptomatic bilateral carotid artery stenosis Hypertensive heart disease without heart failure Restless leg syndrome Dyslipidemia, goal LDL below 70 Hiatal hernia Cholelithiases Left ventricular diastolic dysfunction, NYHA class 1 Longstanding persistent atrial fibrillation (HCC) Durand's neuroma Actinic keratosis Senile osteoporosis H/O mitral valve repair Cardiac pacemaker in situ Moderate persistent asthma without complication Pleural plaque due to asbestos exposure Restrictive lung disease Hx of pulmonary embolus 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 ROMERO (dyspnea on exertion) Long-segment Stark's esophagus Carcinoma of bladder (HCC) Iron deficiency anemia Asbestosis (HCC) Pulmonary hypertension (HCC) Urothelial carcinoma of bladder (HCC) Anemia of chronic disease Acquired hypothyroidism Encounter for central line care Chronic kidney disease, stage 3b (HCC) Hypertensive heart and kidney disease without heart failure and with stage 3b chronic kidney disease (HCC) Anemia due to stage 3b chronic kidney disease (HCC) Chronic diastolic heart failure due to valvular disease (HCC) Permanent atrial fibrillation (HCC) Past Medical History: Diagnosis Date Acquired hypothyroidism Allergic rhinitis Anal fissure 05/2005 treated at [place] Anemia of chronic disease 04/15/2020 Aortic valve disorder Asbestosis (HCC) Asbestosis (HCC) Asthma Atrial fibrillation (HCC) 11/16/2004 Atrial flutter (HCC) 01/2004 early post cardiac surgery AV clifford re-entry tachycardia (HCC) 09/02/2007 Admitted [facility] EP study with ablation by Dr Gallardo 09/02/07 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 [place] C0-M6 Benign neoplasm of colon 03/09/2002 Benign neoplasm of colon 09/21/2009 2 tubular adenomas removed BPH without obstruction/lower urinary tract symptoms 01/2006 Dr Goodwin Calcifying tendinitis of shoulder 10/03/2000 Cardiac pacemaker in situ 10/01/2017 Cataract 06/2012 [place] Cellulitis of leg, left 05/18/2024 Seen in [facility] ER for cellulitis and altered mental status, given doxycyycline Cholelithiases COVID-19 10/25/2020 [facility] DIASTOLIC DYSFUNCTION 11/22/2004 GRADE II Diverticulosis of colon Dyslipidemia, goal LDL below 70 Epididymitis 03/31/2024 admitted [facility] Fractured rib 09/25/2022 fractures of right 6-10 Generalized osteoarthritis Herniated nucleus pulposus, L4-5 right Hiatal hernia Hx of pulmonary embolus Hypertensive heart disease 11/22/2004 mild concentric lvh on stress echo 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) Left ventricular diastolic dysfunction, NYHA class 1 Grade I impaired relaxation Long-segment Stark's esophagus 07/28/2020 [place] C0-M5 Malignant neoplasm of prostate (HCC) 09/23/2008 Farhad grade 3 Malignant neoplasm of sigmoid colon (HCC) [address] ham at [place] Moderate persistent asthma without complication Norovirus 04/05/2024 Paroxysmal SVT (supraventricular tachycardia) (HCC) 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, 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 Dillard ARTHROPLASTY KNEE TOTAL Left 05/09/2017 Dr Bautista [facility] BIOPSY OF PROSTATE 09/23/2008 Dr Goodwin [...] DIAGNOSTIC (RECTUM) 06/02/2015 TA polyp, referred to surgery/[facility] COLONOSCOPY, DIAGNOSTIC (RECTUM) 06/09/2018 normal/[facility] COLONOSCOPY, REMOVE LESION, CAUTERY 09/21/2009 anastomosis [...] 60% LVH EGD, FLEXIBLE, DIAGNOSTIC 06/02/2015 mild gastritis/[facility] EGD, FLEXIBLE, DIAGNOSTIC 06/09/2018 Barret[place], hiatal hernia, gastric polyp, repeat 1 yr/[facility] EGD, FLEXIBLE, DIAGNOSTIC 07/07/2019 [place]retts / [facility] EGD, FLEXIBLE, DIAGNOSTIC N/A 12/01/2019 ESOPHAGOGASTRODUODENOSCOPY (EGD), FLEXIBLE, TRANSORAL, DIAGNOSTIC performed by Domingo Garcia DO at ENDOSCOPY [facility] EGD, FLEXIBLE, DIAGNOSTIC N/A 03/14/2020 Partially treated Stark's stage C0-M9 per [place] Criteria Multiple gastric polyps, performed by Domingo Garcia DO at ENDOSCOPY [facility] EGD, FLEXIBLE, DIAGNOSTIC N/A 05/25/2020 6 cm [place] C0-M6 Barretts lower esophagus, with radiofrequency ablation, performed by Domingo Garcia DO at ENDOSCOPY [facility] EGD, FLEXIBLE, DIAGNOSTIC N/A 07/28/2020 long segment Stark's [place] C0-M5, with nodlule at 31 cm, performed by Domingo Garcia DO at ENDOSCOPY [facility] EGD, FLEXIBLE, DIAGNOSTIC N/A 09/28/2020 C0-M1 Barretts, gastric polyps, 3 cm hiatal hernia, performed by Domingo Garcia DO at ENDOSCOPY [facility] EGD, FLEXIBLE, DIAGNOSTIC N/A 11/30/2020 residual Stark's, performed by Domingo Garcia DO at ENDOSCOPY [facility] EGD, FLEXIBLE, DIAGNOSTIC N/A 01/31/2021 residual Stark's EGD, FLEXIBLE, DIAGNOSTIC N/A 01/31/2021 ESOPHAGOGASTRODUODENOSCOPY (EGD), FLEXIBLE, TRANSORAL, DIAGNOSTIC performed by Domingo Garcia DO at ENDOSCOPY [facility] EGD, FLEXIBLE, DIAGNOSTIC N/A 07/04/2021 ESOPHAGOGASTRODUODENOSCOPY (EGD), FLEXIBLE, TRANSORAL, DIAGNOSTIC performed by Domingo Garcia DO at ENDOSCOPY [facility] EGD, FLEXIBLE, DIAGNOSTIC 02/26/2022 short segment Stark's at 31 cm, GE flap Hill Grade IV, 4 cm hiatal hernia EGD, FLEXIBLE, DIAGNOSTIC N/A 02/26/2022 ESOPHAGOGASTRODUODENOSCOPY (EGD), FLEXIBLE, TRANSORAL, DIAGNOSTIC performed by Domingo Garcia DO at ENDOSCOPY [facility] EGD, FLEXIBLE, LESION ABLATION N/A 07/04/2021 2 cm hiatal hernia, Ablation of [place] C0-M1 Stark's, multiple fundic gland polyps ELECTROPHYSIOLOGIC [...] DDD NM BONE SCAN WHOLEBODY 10/06/2008 METs, [facility] NM HEPATOBILIARY SYSTEM WITH PHARMACOLOGIC INTERVENTION N/A 11/20/2016 no cystic duct obstruction PARTIAL REMOVAL OF COLON 04/21/2002 for tubulovillous adenoma, Dr Beasley at [facility] PARTIAL REMOVAL OF COLON 08/08/2015 right colectomy 08/08/2015 [facility] REMOVE CATARACT, INSERT LENS PROSTH 07/2012 [...] Pollen Wound Dressing Adhesive Rash Patient reported Zyprexa [Olanzapine] Neuro complications (Please comment) Social History Socioeconomic History Marital status: Spouse name: Not on file Number of children: 1 Years of education: Not on file Highest education level: Not on file Occupational History Occupation: retired Comment: [employer] Tobacco Use Smoking status: Never Smokeless tobacco: Current Types: Snuff Tobacco comments: One can every couple of days x 50 yrs. Vaping Use Vaping status: Never Used Substance and Sexual Activity Alcohol use: Not Currently Drug use: No Sexual activity: Yes Partners: Female Other Topics Concern Not on file Social History Narrative Used to spend the winter in [place]. In 2018 they are doing a [employer] for 15 days. Social Determinants of Health Financial Resource Strain: Not on file Food Insecurity: No Food Insecurity (01/22/2020) Hunger Vital Sign Worried About Running Out of Food in the Last Year: Never true Ran Out of Food in the Last Year: Never true Transportation Needs: Not on file Social Connections: Unknown (05/25/2024) Social Connections How often do you feel lonely or isolated from those around you? (Adult - for ages 18 years and over): Not on file Housing Stability: Not on file Current Outpatient Medications Medication Sig Dispense Refill CO Q10 100 MG PO TABS 1 tab once daily ZOVIRAX 5 % EX OINT 5 times daily as needed. Polyethylene Glycol 3350 17 GM Oral Packet Take 1 Packet by mouth in the morning. 14 Each 0 Albuterol Sulfate (PROAIR HFA) 108 (90 Base) MCG/ACT AERS Inhale 2 Puffs by mouth every 4 hours as needed for Wheezing. 1 Inhaler 3 Vitamin B12 500 MCG Oral Tablet 2 tabs daily 180 Tab 1 One-A-Day Mens 50+ Advantage Oral Tablet Take 1 Tablet by mouth daily. Vitamin D 25 MCG (1000 UT) Oral Tablet Take 1 Tablet by mouth in the morning. Albuterol Sulfate (2.5 MG/3ML) 0.083% Inhalation Nebulization Solution (Proventil) Inhale 1 Vial via nebulizer every 6 hours as needed for Wheezing. Mix with albuterol 120 mL 5 Ipratropium [place] 0.02 % Inhalation Solution (Atrovent) Inhale 2.5 mL via nebulizer in the morning and 2.5 mL at noon and 2.5 mL in the evening and 2.5 mL before bedtime. Mix with albuterol solution. 75 mL 12 Spiriva Respimat 2.5 MCG/ACT Inhalation Aerosol Solution (Tiotropium [place] Monohydrate) INHALE 2 PUFFS BY MOUTH EVERY DAY 12 g 3 Spironolactone 25 MG Oral Tablet (Aldactone) [...] EVENING FOR 5 DAYS 16 mL 1 predniSONE 5 MG Oral Tablet (Deltasone) TAKE 1 TABLET BY MOUTH EVERY DAY 90 Tablet 2 Rosuvastatin Calcium 10 MG Oral Tablet (Crestor) TAKE 1 TABLET BY MOUTH EVERY DAY 90 Tablet 1 Benzonatate 100 MG Oral Capsule (Tessalon Perles) Take 1 Capsule by mouth 3 times a day as needed for Cough. Ferrous Sulfate 325 (65 Fe) MG Oral Tablet (Feosol) TAKE ONE TABLET BY MOUTH WITH FOOD DAILY 90 Tablet 3 Esomeprazole Magnesium 40 MG Oral Capsule Delayed Release TAKE 1 CAPSULE BY MOUTH TWICE A DAY 180 Capsule 1 Zolpidem Tartrate 5 MG Oral Tablet (Ambien) Take 1 Tablet by mouth at bedtime as needed for Sleep. 30 Tablet 0 Warfarin Sodium 5 MG Oral Tablet (Coumadin) TAKE 0.5-1 TABLETS BY MOUTH EVERY EVENING. OR TAKE INSTRUCTED BY THE [facility] 90 Tablet 3 Levothyroxine Sodium 125 MCG Oral Tablet (Levoxyl) TAKE 1 TAB BY MOUTH DAILY FIRST THING IN THE MORNING AT LEAST 30 MIN PRIOR TO BREAKFAST/OTHER MEDS 90 Tablet 2 Tamsulosin HCl 0.4 MG Oral Capsule (Flomax) Take 1 Capsule by mouth in the morning. 90 Capsule 3 Enoxaparin Sodium 60 MG/0.6ML Injection Solution Prefilled Syringe (Lovenox) Inject 60mg under the skin daily as directed by anticoagulation clinic for procedure 3 mL 0 Erythromycin 5 MG/GM Ophthalmic Ointment Instill 0.25 Inches into eye at bedtime. (Patient not taking: Reported on 02/10/2024) 3.5 g 3 No current facility-administered medications for this visit. Immunization History Administered Date(s) Administered COVID-19 mRNA, LNP-s, No Preserve, 2-Dose Series ([employer]) 12/26/2020, 01/16/2021, 12/01/2021 COVID-19, LNP-s, No Preserve, Ozzy-sucrose, Ages 12+ (Pfizer) 12/01/2021 COVID-19, MRNA-LNP, 23-24, PF, 30 MCG/0.3 mL, 12 YRS AND ABOVE, IM ([employer]) 09/18/2023 Covid-19, Mrna, Lnp-s, Pf, Bivalent, 30 [...] Recombinant (Shingrix) 08/15/2020, 12/02/2020 O: Blood pressure 104/58, pulse 82, temperature 36.1 C (97 F), temperature source Tympanic, weight 67.1 kg (148 lb). He has chronic stasis of both legs with at least 2+ pitting edema but the leftleg is more swollen, is redder, and has open wounds in the back that are draining serous fluid A: Cellulitis of left lower leg (Primary) - XR TIB/FIB 2 VIEWS - Cephalexin 500 MG Oral Capsule (Keflex); Take 1 Capsule by mouth in the morning and 1 Capsule before bedtime. Do all this for 10 days. - Torsemide 100 MG Oral Tablet (Demadex); One daily for 3 days and as needed - Sulfamethoxazole-Trimethoprim 800-160 MG Oral Tablet (Bactrim DS); Take 1 Tablet by mouth in the morning and 1 Tablet before bedtime. Do all this for 10 days. Until gone.. Follow-up: Return in 1 week (on 06/01/2024). | Check-out note: Put on schedule to see Heather documented in this encounter Nursing Notes * Diana Turcios LPN - 05/25/2024 10:38 AM EDT Hospital follow up Will finish antibiotic tomorrow for cellulitis in left leg Getting worse again, having trouble walking Still has some pitting edema in right hand/ wrist- jannette Ornelas documented in this encounter Plan of Treatment Upcoming Encounters Date Type Department Care Team (Latest Contact Info) Description 4 11:20 AM EDT Laboratory Laboratory [address] [place] [phone] [facility] Lab [address] [place] [address] Urothelial carcinoma of bladder (HCC) 4 11:30 AM EDT Imaging Radiology [address] [place] [address] Arrived 4 10:00 AM EDT Laboratory Laboratory [facility] Marylou Zapata [address] [place] [phone] Marylou Lab Scenery [address] [address] 4 10:30 AM EDT Immunization/Inject ion Hematology/Onc ology Treatment, [place] [facility] [place] [phone] Nurse, Med [address] [address] 4 10:00 AM EDT Laboratory Laboratory [facility] Zapata [address] [place] [phone] Marylou Lab Scenery [address] [address] 4 10:45 AM EDT Immunization/Inject ion Hematology/Onc ology Treatment, [place] [address] [facility] [place] [phone] Nurse, Med [address] [address] 4 6:30 AM EDT [facility], Angela Giles [address] [place] [address] [place] [address] [place] [address] 4 10:00 AM EDT Laboratory Laboratory [facility] [place]ata [address] [phone] Marylou, Lab Scenery [address] [address] 4 10:30 AM EDT Immunization/Inject ion Hematology/Onc ology Treatment, [place] [address] [facility] [place] [phone] Nurse, Med [address] [place] [address] 4 10:10 AM EDT [facility] [address] [place] [phone] [place], Lab Scenery [address] [place] [address] 4 10:30 AM EDT Immunization/Inject ion Hematology/Onc ology Treatment, Zapata [address] [place] [phone] Nurse, Med [address] [place] [address] 4 8:40 AM EDT Office Visit Rheumatology [address] [place] [phone] Win Nielsen MD [facility] [place] [address] 4 11:45 AM EDT Hospital Encounter ENDO [facility], Endoscopy Suite, HFAM 1, [address] [place], [place] [id number] Domingo Garcia DO [address] [place], [place] [address] 4 11:45 AM EDT - 4 1:00 PM EDT Surgery ENDO [facility], Endoscopy Suite, HFAM 1, [address] [place], [place] [phone] Domingo Garcia DO [address], [place] [phone] ESOPHAGOGASTRODUODENOSCOPY (EGD), FLEXIBLE, TRANSORAL, DIAGNOSTIC 5 11:20 AM EST Office Visit Family Medicine [address] [place] [phone] Bell Mcqueen MD [address] [place] [address] [place] [address] Pending Results Name Type Priority Associated Diagnoses Date /Time XR TIB/FIB 2 VIEWS Medical Imaging Routine Cellulitis of left lower leg 05/25/2024 11:05 AM EDT Scheduled Procedures Name Priority Associated Diagnoses Date/Ti me ESOPHAGOGASTRODUODENOSCOPY ( EGD), FLEXIBLE, TRANSORAL, DIAGNOSTIC Recall Stark's esophagus with dysplasia 08/27/2024 11:45 AM EDT COLONOSCOPY FLEXIBLE PROXIMA L DIAGNOSTIC Recall Stark's esophagus with dysplasia 08/27/2024 11:45 AM EDT Health Maintenance Due Date Last Done Comments Depression Screening 07/12/2021 07/12/2020 CKD PHOS USE SMARTSET 21002 08/21/2022 10/0 02/2021, 07/12/2020, 03/13/2019, Additional history [...] Additional history exists CKD HGB USE SMARTSET 27208 05/18/202505/18, 05/12/2024, 05/12/2024, Additional history exists DXA Scan 07/05/2025 07/05/2023, 10/19, 11/04/2018, Additional history exists DTaP,Tdap,and Td Vaccines (2 - Td or Tdap) 08/19/2027 08/19/2017, 08/20/2008 Pneumococcal Vaccine: 65+ Years Completed 06/23/2015, 05/14/2013, 04/18/2004 Zoster Vaccines Completed 12/02/2020, 08/15/2020 VITAMIN D LEVEL ONCE IN A LIFETIME-USE SMARTSET# [id number] Completed 04/22/2023, 08/28/2021, 07/14/2015 HPV (Gardasil) Vaccine [...] encounter Medical Devices Implanted Type Area Feather Sawyer Device Identifier Shelf Expiration Date Model / Serial / Lot Power Port 8fr Sngl Lumen Plas - [id number] Implanted:Qty: 1 on 02/22/2022 at [facility] BARD : PERIPHERAL VASCULAR [id number] 02/15/2023 [id number] / / [id number] documented as of this encounter Visit Diagnoses Diagnosis Cellulitis of left lower leg- Primary Cellulitis and abscess of leg, except foot 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"
--- OUTSIDE RECORDS SUMMARY | 2024-05-28 18:24 | External Medical Summary | Summary of Care ---
Author Name Unknown Organization [facility] Address [address] [place] [address] Phone [phone] Care Team Providers Care Account Executive Metalworking Name Role Phone Unavailable Primary Care Provider Unavailabl e Reason for Visit * Reason Onset Date Comments Advice 05/19/2024 Encounter Details Date Type Department Care Team (Late st Contact Info) Description 05/19/2024 Telephone Family Medicine [address] [phone] Bell Mcqueen MD [address] [place], [place] [address] [address] Advice Allergies Active Allergy Reactions Criticality Noted Date Comments Penicillins Other (Please comment),Rash High Eyes swell Pollen 05/03/2022 Wound Dressing Adhesive Rash 05/02/2023 Patient reported Olanzapine Neuro complications (Please comment) 04/09/2024 documented as of this encounter (statuses as of 05/23/2024) Medications Medication Sig Dispensed Refills Start Date [...] albuterol 120 mL 5 11/21/2022 Active Ipratropium [place] 0.02 % Inhalation Solution (Atrovent)Indicat ions:Moderate persistent asthma without complication Inhale 2.5 mL via nebulizer in the morning and 2.5 mL at noon and 2.5 mL in the evening and 2.5 mL before bedtime. Mix with albuterol solution. 75 mL 12 11/21/2022 Active Spiriva Respimat 2.5 MCG/ACT Inhalation Aerosol Solution (Tiotropium [place] Monohydrate)Indic ations:Moderate persistent asthma without complication INHALE [...] EVERY EVENING. OR TAKE INSTRUCTED BY THE [facility] 90 Tablet 3 05/07/2024 [...] as of this encounter (statuses as of 05/23/2024) Active Problems Problem Noted Date Diagnosed Date [...] rinse after steroid. Test performed by Sameer STUDENT MINISTRIES DIRECTOR CPFT Pleural plaque due to asbestos exposure Restrictive lung disease Overview: In Check dial performed to assess inhaler technique: 12/15/19 Name of inhalers Albuterol Pass: Yes at 60 L/min and Advair Pass: Yes at 60 L/min. Encouraged to to take deep breath, use aero chamber, and rinse after steroid. Test performed by Sameer STUDENT MINISTRIES DIRECTOR CPFT Hx of pulmonary embolus 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 Overview: [place] C0-M6 documented as of this encounter (statuses as of 05/23/2024) Resolved Problems Problem Noted Date Diagnosed Date [...] Malignant neoplasm of prostate 09/23/2008 03/27/2018 Overview: [place] grade 3 Atrial flutter 09/02/2007 10/16/2007 Herpes [...] as of this encounter (statuses as of 05/23/2024) Immunizations Name Administration Dates Next Due COVID-19 mRNA, LNP-s, No Pre serve, 2-Dose Series ([facility]) 12/01/2021,01/16/2021,12/26/2020 COVID-19, LNP-s, No Preserve , Ozzy-sucrose, Ages 12+ ([facility]) 12/01/2021 COVID-19, MRNA-LNP, 23-24, P F, 30 MCG/0.3 mL, 12 YRS AND ABOVE, IM ([facility]) 09/18/2023 Covid-19, Mrna, Lnp-s, Pf, B ivalent, 30 Mcg, IM, 12 yrs and above ([facility]) 10/09/2022 Pneumococcal Conjugate Vacc, 13 Valent (Prevnar) [...] Telephone Encounter - Leyda Oviedo RN - 05/23/2024 2:57 PM EDT Hospital notes of March also state the patient follows with [facility] Urology My G sent to patient * Telephone Encounter - Bell Mcqueen MD - 05/20/2024 8:36 AM EDT Pt follows up with [facility] urology - last cystoscopy on 09/2023 - pls advise the pt to call the [facility] urology to set up a follow up Clinical note: - pt never established with me - pt and family were unhappy with the care (see Myg msg on 01/22/2024 and telephone encounter on 01/23/2024) - I recommend pt est with a physician as a pcp * Telephone Encounter - Ingris Garcia [facility] - 05/19/2024 3:52 PM EDT Spoke with patient today regarding INR and mentioned patient has had two episodes of blood in urine in the past week. Patient is holding Coumadin again today and is aware to call with any further episodes- denies any further blood in urine since last night. Patient does not currently follow with Urology -states she had tried to reach out but has not heardback. Please advise if urology referral appropriate and any further recommendations. Thank You Ingris Garcia, PharmD Clinical Pharmacist [facility] ([facility]) [phone] / [phone] 05/19/2024, 3:54 PM Electronically signed by Ingris Garcia [facility] at 05/19/2024 3:59 PM EDT documented in this encounter Plan of Treatment Upcoming Encounters Date Type Department Care Team (Latest Contact Info) Description 4 10:40 AM EDT Office Visit Family Medicine [address] [phone] Juancho Romero MD [address] [place] [address] [place] [address] 4 10:00 AM EDT Laboratory Laboratory [place] Ziggy [place] [address] [place] [phone] Marylou Lab [place] [address] [place] [address] 4 10:30 AM EDT Immunization/Inject ion Hematology/Onc ology Treatment, [place] 200 [facility] [place] [phone] Nurse, Med [address] [address] 4 10:00 AM EDT Laboratory Laboratory [place] [employer] [address] [phone] Park, Lab Scenery [address] [place], [place] [address] 4 10:45 AM EDT Immunization/Inject ion Hematology/Onc ology Treatment, [place] [address] [place], [place] [phone] Nurse, Med [address] [address] 4 6:30 AM EDT Anticoagulation Central[facility] Services, Angela Giles [address] [place] [address] [place] [address] Ccps, [address] [place] [address] 4 10:00 AM EDT Laboratory Laboratory Dony Hickman [place] [address] [phone] Mary[facility]ou Lab [facility] [address] [place], [place] [address] 4 10:30 AM EDT Immunization/Inject ion Hematology/Onc ology Treatment, [place] [facility] [place], [place] [address] Nurse, Med [address] [address] 4 10:10 AM EDT Laboratory Laboratory [facility] Marylou [place] [address] [address] Marylou Lab Scenery [address] [place] [address] 4 10:30 AM EDT Immunization/Inject ion Hematology/Onc ology Treatment, [place] [address] [place], [place] [address] Nurse, Med 4 [address] [place], [place] [address] 4 8:40 AM EDT Office Visit Rheumatology [address] [place] [phone] Win Nielsen MD [facility] [place] [address] 4 11:45 AM EDT Hospital Encounter ENDO [facility], Endoscopy Suite, HFAM 1, [address] [place], [place] [id number] Domingo Garcia, DO [address] [place] [address] 4 11:45 AM EDT - 4 1:00 PM EDT Surgery ENDO [facility], Endoscopy Suite, HFAM 1, [address] [place] [address] Domingo Garcia DO [address] [place], [place] [id number] ESOPHAGOGASTRODUODENOSCOPY (EGD), FLEXIBLE, TRANSORAL, DIAGNOSTIC 5 11:20 AM EST Office Visit Family Medicine [address] [place] [phone] Bell Mcqueen MD [address] [place] [address] [place] [address] Scheduled Procedures Name Priority Associated Diagnoses Date/Ti me ESOPHAGOGASTRODUODENOSCOPY ( EGD), FLEXIBLE, TRANSORAL, DIAGNOSTIC Recall Stark's esophagus with dysplasia 08/27/2024 11:45 AM EDT COLONOSCOPY FLEXIBLE PROXIMA L DIAGNOSTIC Recall Stark's esophagus with dysplasia 08/27/2024 11:45 AM EDT Health Maintenance Due Date Last Done Comments Depression Screening 07/12/2021 07/12/2020 CKD PHOS USE SMARTSET 62235 08/21/2022 10/0 02/2021, 07/12/2020, 03/13/2019, Additional history [...] Additional history exists CKD HGB USE SMARTSET 90928 05/18/202505/18, 05/12/2024, 05/12/2024, Additional history exists DXA Scan 07/05/2025 07/05/2023, 10/19, 11/04/2018, Additional history exists DTaP,Tdap,and Td Vaccines (2 - Td or Tdap) 08/19/2027 08/19/2017, 08/20/2008 Pneumococcal Vaccine: 65+ Years Completed 06/23/2015, 05/14/2013, 04/18/2004 Zoster Vaccines Completed 12/02/2020, 08/15/2020 VITAMIN D LEVEL ONCE IN A LIFETIME-USE SMARTSET# [id number] Completed 04/22/2023, 08/28/2021, 07/14/2015 HPV (Gardasil) Vaccine Aged Out No lo nger eligible based on patient's age to complete this topic Hepatitis B Vaccine Aged Out No longe r eligible based on patient's age to complete this topic MENINGOCOCCAL (MENACTRA/MENVEO) Aged Out No longer eligible based on patient's age to complete this topic documented as of this encounter Medical Devices Implanted Type Area Ignition Expert Device Identifier Shelf Expiration Date Model / Serial / Lot Power Port 8fr Sngl Lumen Plas - [id number] Implanted:Qty: 1 on 02/22/2022 at [facility] : PERIPHERAL VASCULAR [id number] 02/15/2023 [id number] / / [id number] documented as of this encounter Advance Directives * Full Code (Latest Code Status on File) Date Activated Date Inactivated Comments 09/03/2007 7:29 AM 09/03/2007 4:02 PM
--- OUTSIDE RECORDS SUMMARY | 2024-05-28 18:25 | External Medical Summary | Summary of Care ---
Author Name Unknown Organization [facility] Address [address] [place] [address] Phone [phone] Care Team Providers Care Induction Machine Operator Name Role Phone Unavailable Primary Care Provider Unavailabl e Reason for Visit * Reason Comments Medication Administration Retacrit * Episode Based Medications (Routine) - Authorized Specialty Diagnoses / Procedures Referred By Aaron vines Referred To Contact Diagnoses Carcinoma of bladder (HCC) Iron deficiency anemia, unspecified iron deficiency anemia type Chronic kidney disease, stage 3b (HCC) Procedures SC INJ RETACRIT NON-ESRD USE SC THERAPEUTIC PROPHYLACTIC/DX INJECTION SUBQ/IM SC EPOETIN IVAN, NON-ESRD Ludwig Louis MD [address] [facility] [place] [address] Anc Hem/Onc Dony Hickman DEPT CLOSED - 10/01/23 [address] [place] [address] Referral ID Status Reason Start Date Expiration Date V isits Requested Visits Authorized [id number] Authorized 02/05/2024 07/22/2024 999 999 Encounter Details Date Type Department Care Team (Late st Contact Info) Description 05/20/2024 10:30 AM EDT Immunization/I njection Hematology/Oncology Treatment, [place] [address] [place] [address] Nurse, Med 4 [address] [place] [address] Carcinoma of bladder (HCC)*; Iron deficiency anemia, unspecified iron deficiency anemia type; Chronic kidney disease, stage 3b (HCC) Allergies Active Allergy Reactions Criticality Noted Date Comments Penicillins Other (Please comment),Rash High Eyes swell Pollen 05/03/2022 Wound Dressing Adhesive Rash 05/02/2023 Patient reported Olanzapine Neuro complications (Please comment) 04/09/2024 documented as of this encounter (statuses as of 05/20/2024) Medications Medication Sig Dispensed Refills Start Date [...] albuterol 120 mL 5 11/21/2022 Active Ipratropium [place] 0.02 % Inhalation Solution (Atrovent)Indicat ions:Moderate persistent asthma without complication Inhale 2.5 mL via nebulizer in the morning and 2.5 mL at noon and 2.5 mL in the evening and 2.5 mL before bedtime. Mix with albuterol solution. 75 mL 12 11/21/2022 Active Spiriva Respimat 2.5 MCG/ACT Inhalation Aerosol Solution (Tiotropium [place] Monohydrate)Indic ations:Moderate persistent asthma without complication INHALE [...] Tablet Extended Release 12 Hour (Humibid [place])Indications:Ac jamul cough Take 1 Tablet by mouth in [...] [facility] 90 Tablet 3 05/07/2024 Active [...] as of this encounter (statuses as of 05/20/2024) Active Problems Problem Noted Date Diagnosed Date [...] obstruction/lower urinary tract symp toms Overview: Dr Goowdin Spinal stenosis of lumbar re gion without [...] rinse after steroid. Test performed by Sameer MAGNESIUM MILL OPERATOR CPFT Pleural plaque due to asbestos exposure Restrictive lung disease Overview: In Check dial performed to assess inhaler technique: 12/15/19 Name of inhalers Albuterol Pass: Yes at 60 L/min and Advair Pass: Yes at 60 L/min. Encouraged to to take deep breath, use aero chamber, and rinse after steroid. Test performed by Sameer MAGNESIUM MILL OPERATOR CPFT Hx of pulmonary embolus 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 Overview: [place] C0-M6 documented as of this encounter (statuses as of 05/20/2024) Resolved Problems Problem Noted Date Diagnosed Date [...] Malignant neoplasm of prostate 09/23/2008 03/27/2018 Overview: [place] grade 3 Atrial flutter 09/02/2007 10/16/2007 Herpes [...] as of this encounter (statuses as of 05/20/2024) Immunizations Name Administration Dates Next Due COVID-19 mRNA, LNP-s, No Pre serve, 2-Dose Series (NeuroNascent) 12/01/2021,01/16/2021,12/26/2020 COVID-19, LNP-s, No Preserve , Ozzy-sucrose, [...] Sign Reading Time Taken Comments Blood Pressure 95/56 05/20/2024 10:46 AM EDT Pulse - - Temperature - - Respiratory Rate - - Oxygen Saturation - - Inhaled Oxygen Concentration - - Weight - - Height - - Body Mass Index - - documented in this encounter Nursing Notes * Leana Sears LPN - 05/20/2024 1:40 PM EDT 1050: Pt arrived for Retacrit injection. Hgb 8.3. BP WNL. Administered in TONI. Pt tolerated well. To return in one week. Discharged in stable condition. documented in this encounter Plan of Treatment Upcoming Encounters Date Type Department Care Team (Latest Contact Info) Description 4 6:00 PM EDT Anticoagulation Centralized Clinical Pharmacy Services, Angela Giles [address] [place] [address] [place] [address] [facility], [address] [place] [address] 4 10:00 AM EDT Laboratory Laboratory [facility] Marylou [place] [address] [phone] Marylou Lab [place] [address] [place] [place] [address] 4 10:30 AM EDT Immunization/Inject ion Hematology/Onc ology Treatment, [place] [facility] [place] [phone] Nurse, Med [address] [address] 4 10:00 AM EDT Laboratory Laboratory [facility] Marylou [place] [address] [place] [place] [address] [phone] Marylou Lab [place] [address] [address] 4 10:45 AM EDT Immunization/Inject ion Hematology/Onc ology Treatment, [place] [address] [facility] [place] [phone] Nurse, Med 4 [address] [place] [address] 4 10:00 AM EDT Laboratory Laboratory [facility] [place] [address] [place] [phone] Marylou, Lab Scenery [address] [place] [address] 4 10:30 AM EDT Immunization/Inject ion Hematology/Onc ology Treatment, [place] [facility] [phone] Nurse, Med 4 [address] [place] [address] 4 10:10 AM EDT Laboratory Laboratory [facility] [place] [address] [place] [phone] Marylou, Lab Scenery [address] [place] [address] 4 10:30 AM EDT Immunization/Inject ion Hematology/Onc ology Treatment, [place] 200 [facility], [place] [phone] Nurse, Med 4 [address] [place] [address] 4 8:40 AM EDT Office Visit Rheumatology [address] [place] [phone] Win Nielsen MD [address] [facility] [address] [place], [place] [address] 4 11:45 AM EDT Hospital Encounter [facility], Endoscopy Suite, HFAM 1, [address] [place] [facility] [place] [address] Domingo Garcia DO [address] [place] [facility] [address] 4 11:45 AM EDT - 4 1:00 PM EDT Surgery [facility], Endoscopy Suite, HFAM 1, [address] [place] [address] Domingo Garcia DO [address] [place] [address] ESOPHAGOGASTRODUODENOSCOPY (EGD), FLEXIBLE, TRANSORAL, DIAGNOSTIC 5 11:20 AM EST Office Visit [address] [phone] Bell Mcqueen MD [address] [place] [address] [place] [phone] Scheduled Procedures Name Priority Associated Diagnoses Date/Ti me ESOPHAGOGASTRODUODENOSCOPY ( EGD), FLEXIBLE, TRANSORAL, DIAGNOSTIC Recall Stark's esophagus with dysplasia 08/27/2024 11:45 AM EDT COLONOSCOPY FLEXIBLE PROXIMA L DIAGNOSTIC Recall Stark's esophagus with dysplasia 08/27/2024 11:45 AM EDT Health Maintenance Due Date Last Done Comments Depression Screening 07/12/2021 07/12/2020 CKD PHOS USE SMARTSET 85811 08/21/2022 10/0 02/2021, 07/12/2020, 03/13/2019, Additional history [...] Additional history exists CKD HGB USE SMARTSET 91185 05/18/202505/18, 05/12/2024, 05/12/2024, Additional history exists DXA Scan 07/05/2025 07/05/2023, 10/19, 11/04/2018, Additional history exists DTaP,Tdap,and Td Vaccines (2 - Td or Tdap) 08/19/2027 08/19/2017, 08/20/2008 Pneumococcal Vaccine: 65+ Years Completed 06/23/2015, 05/14/2013, 04/18/2004 Zoster Vaccines Completed 12/02/2020, 08/15/2020 VITAMIN D LEVEL ONCE IN A LIFETIME-USE SMARTSET# [id number] Completed 04/22/2023, 08/28/2021, 07/14/2015 HPV (Gardasil) Vaccine Aged Out No lo nger eligible based on patient's age to complete this topic Hepatitis B Vaccine Aged Out No longe r eligible based on patient's age to complete this topic MENINGOCOCCAL (MENACTRA/MENVEO) Aged Out No longer eligible based on patient's age to complete this topic documented as of this encounter Medical Devices Implanted Type Area Cut Tobacco Bulker Device Identifier Shelf Expiration Date Model / Serial / Lot Power Port 8fr Sngl Lumen Plas - [id number] Implanted:Qty: 1 on 02/22/2022 at [facility] : PERIPHERAL VASCULAR [id number] 02/15/2023 [id number] / / [id number] documented as of this encounter Visit Diagnoses [...] Date Dose Rate Site Epoetin Ivan-epbx (Retacrit) 72165 UNIT/ML inj 60,000 Units 60,000 Units, Subcutaneous, ONCE, On Sat05/20/24 at 1115, For 1 dose Given 05/20/2024 10:51 AM EDT 60,000 Units Arm Right Upper documented in this encounter Advance Directives * Full Code (Latest Code Status on File) Date Activated Date Inactivated Comments 09/03/2007 7:29 AM 09/03/2007 4:02 PM
--- OUTSIDE RECORDS SUMMARY | 2024-05-28 18:25 | External Medical Summary | Summary of Care ---
Author Name Unknown Organization [facility] [address] [facility] [facility] [address] Phone [phone] Care Team Providers Care Phlebotomist Name Role Phone Unavailable Primary Care Provider Unavailabl e Reason for Visit * Reason Comments Dosage Adjustment Via Phone (anticoag Cl inic) Bridge Encounter Details Date Type Department Care Team (Late st Contact Info) Description 05/18/2024 6:45 AM EDT Anticoagulation Centralized Clinical Pharmacy Services, Angela Giles [address] [place] [address] [place] [address] [facility], [address] [place] [address] Hx of pulmonary embolus*; Longstanding persistent atrial fibrillation (HCC) Allergies Active Allergy Reactions Criticality Noted Date Comments Penicillins Other (Please comment),Rash High Eyes swell Pollen 05/03/2022 Wound Dressing Adhesive Rash 05/02/2023 Patient reported Olanzapine Neuro complications (Please comment) 04/09/2024 documented as of this encounter (statuses as of 05/18/2024) Medications Medication Sig Dispensed Refills Start Date [...] albuterol 120 mL 5 11/21/2022 Active Ipratropium [place] 0.02 % Inhalation Solution (Atrovent)Indicat ions:Moderate persistent asthma without complication Inhale 2.5 mL via nebulizer in the morning and 2.5 mL at noon and 2.5 mL in the evening and 2.5 mL before bedtime. Mix with albuterol solution. 75 mL 12 11/21/2022 Active Spiriva Respimat 2.5 MCG/ACT Inhalation Aerosol Solution (Tiotropium [place] Monohydrate)Indic ations:Moderate persistent asthma without complication INHALE [...] Tablet Extended Release 12 Hour (Humibid [place])Indications:Ac [place] cough Take 1 Tablet by mouth in [...] EVERY EVENING. OR TAKE INSTRUCTED BY THE [facility] 90 Tablet 3 05/07/2024 Active [...] as of this encounter (statuses as of 05/18/2024) Active Problems Problem Noted Date Diagnosed Date [...] rinse after steroid. Test performed by Sameer ROUTE SALESMAN CPFT Pleural plaque due to asbestos exposure Restrictive lung disease Overview: In Check dial performed to assess inhaler technique: 12/15/19 Name of inhalers Albuterol Pass: Yes at 60 L/min and Advair Pass: Yes at 60 L/min. Encouraged to to take deep breath, use aero chamber, and rinse after steroid. Test performed by Sameer ROUTE SALESMAN CPFT Hx of pulmonary embolus 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 Overview: [place] C0-M6 documented as of this encounter (statuses as of 05/18/2024) Resolved Problems Problem Noted Date Diagnosed Date [...] as of this encounter (statuses as of 05/18/2024) Immunizations Name Administration Dates Next Due COVID-19 mRNA, LNP-s, No Pre serve, 2-Dose Series (Wild [employer]) 12/01/2021,01/16/2021,12/26/2020 COVID-19, LNP-s, No Preserve , Ozzy-sucrose, Ages 12+ ([employer]) 12/01/2021 COVID-19, MRNA-LNP, 23-24, P F, 30 MCG/0.3 mL, 12 YRS AND ABOVE, IM ([facility]) 09/18/2023 Covid-19, Mrna, Lnp-s, Pf, B ivalent, 30 Mcg, IM, 12 yrs and above ([employer] [facility]) 10/09/2022 Pneumococcal Conjugate Vacc, 13 Valent (Prevnar) [...] of this encounter Progress Notes * Ingris Garcia, [facility] - 05/18/2024 3:39 PM EDT Patient is having a EGD and Colonoscopy on 05/29. Patient has history of PE and requires Lovenox bridging. Patient used Lovenox before. See letters section for specific lovenox bridge instructions. Actual Body Weight 66.8kg Serum creatinine: 1.3 mg/dL (H) 04/28/24 0957 Estimated creatinine clearance: 32.2 mL/min (A) Hemoglobin Results: Recent Labs Units 05/12/24 1014 05/05/24 0940 04/28/24 0957 HGB g/dL 8.2* 8.3* 9.2* Platelets: Recent Labs Units 05/12/24 1014 05/05/24 0940 04/28/24 0957 PLT K/uL 118* 132* 102* Lovenox Dose: Lovenox 60mg daily (Will opt for daily dosing due to renal function and low HGB) Electronically sent Lovenox to [id number] [address]- [place], Sent bridging instructions (letter) to [id number] [address] [facility] [place] and [facility], and Communicated to patient on VM that Lovenox/ bridge instructions (letter) were sent to Pharmacy and [facility] will follow-up with pt on 05/20 to review instructions with INR (pt is overdue for INR- will add to appt tomorrow 05/19) Ingris Garcia [facility] Clinical Pharmacist Medication Therapy Disease Management 05/18/2024, 3:47 PM documented in this encounter Plan of Treatment Upcoming Encounters Date Type Department Care Team (Latest Contact Info) Description 4 10:00 AM EDT Laboratory Laboratory [employer] [address] [facility] [place] [phone] [facility] [place] [address] 4 6:15 AM EDT Anticoagulation Centralized Clinical Pharmacy Services, Angela Giles [address] [place] [address] [place] Am[place] [address] [facility], [address] [place] [address] 4 10:30 AM EDT Immunization/Inject ion Hematology/Onc ology Treatment, [place] 200 [facility] [place] [phone] Nurse, Med 200 [facility] [place] [address] 4 10:00 AM EDT Laboratory Laboratory [place] [facility] [place] [address] [place] [phone] Marylou Lab Stephanie [address] [place] [address] 4 10:30 AM EDT Immunization/Inject ion Hematology/Onc ology Treatment, [address] [place] [address] Nurse, Med 4 [address] [place] [address] 4 10:00 AM EDT Laboratory Laboratory [facility] [address] [place] [address] Marylou, Lab Scenery [address] [place] [address] 4 10:45 AM EDT Immunization/Inject ion Hematology/Onc ology Treatment, [place] 200 [place] [address] Nurse, Med 4 [address] [place], [place] [address] 4 10:00 AM EDT Laboratory Laboratory [facility] [place] [address] [place] [address] Marylou, Lab Scenery [address] [place] [address] 4 10:30 AM EDT Immunization/Inject ion Hematology/Onc ology Treatment, [place] 200 [facility], [place] [address] Nurse, Med 4 [address] [place] [address] 4 10:10 AM EDT Laboratory Laboratory [facility] [place] [address] [place] [address] Marylou, Lab Scenery [address] [place] [address] 4 10:30 AM EDT Immunization/Inject ion Hematology/Onc ology Treatment, [place] 200 [place] [address] Nurse, Med 4 [address] [place] [address] 4 8:40 AM EDT Office Visit Rheumatology [address] [place] [phone] Win Nielsen MD [facility] [place] [address] 4 11:45 AM EDT Hospital Encounter [facility] Suite, [facility] 1, [address] [place] [address] Domingo Garcia, DO [address] [place] [address] 4 11:45 AM EDT - 4 1:00 PM EDT Surgery [facility] Endoscopy Suite, [facility] 1, [address] [place] [address] Domingo Garcia DO [address] [place], [place] [id number] ESOPHAGOGASTRODUODENOSCOPY (EGD), FLEXIBLE, TRANSORAL, DIAGNOSTIC 5 11:20 AM EST Office Visit Family Medicine [address] [place] [phone] Bell Mcqueen MD [address] [place] [address] [place] [address] Scheduled Orders Name Type Priority Associated Diagnoses Orde r Schedule PT INR Lab Routine Hx of pulmonary embolus Other, Please specify in Comments field for 26 Occurrences starting 05/18/2024 until 05/18/2025 Scheduled Procedures Name Priority Associated Diagnoses Date/Ti me ESOPHAGOGASTRODUODENOSCOPY ( EGD), FLEXIBLE, TRANSORAL, DIAGNOSTIC Recall Stark's esophagus with dysplasia 08/27/2024 11:45 AM EDT COLONOSCOPY FLEXIBLE PROXIMA L DIAGNOSTIC Recall Stark's esophagus with dysplasia 08/27/2024 11:45 AM EDT Health Maintenance Due Date Last Done Comments Depression Screening 07/12/2021 07/12/2020 CKD PHOS USE SMARTSET 56659 08/21/2022 10/0 02/2021, 07/12/2020, 03/13/2019, Additional history [...] Additional history exists CKD HGB USE SMARTSET 18764 05/12/202505/12, 05/12/2024, 05/05/2024, Additional history exists DXA Scan 07/05/2025 07/05/2023, 10/19, 11/04/2018, Additional history exists DTaP,Tdap,and Td Vaccines (2 - Td or Tdap) 08/19/2027 08/19/2017, 08/20/2008 Pneumococcal Vaccine: 65+ Years Completed 06/23/2015, 05/14/2013, 04/18/2004 Zoster Vaccines Completed 12/02/2020, 08/15/2020 VITAMIN D LEVEL ONCE IN A LIFETIME-USE SMARTSET# [id number] Completed 04/22/2023, 08/28/2021, 07/14/2015 GARDASIL-HPV IMMUNIZATION SERIES Aged Out No longer eligible based on patient's age to complete this topic Hepatitis B Aged Out No longer eligi ble based on patient's age to complete this topic MENINGOCOCCAL (MENACTRA/MENVEO) Aged Out No longer eligible based on patient's age to complete this topic documented as of this encounter Medical Devices Implanted Type Area Spinning Lathe Operator Hydraulic Device Identifier Shelf Expiration Date Model / Serial / Lot Power Port 8fr Sngl Lumen Plas - [id number] Implanted:Qty: 1 on 02/22/2022 at [facility] BARD : PERIPHERAL VASCULAR [id number] 02/15/2023 [id number] / / [id number] documented as of this encounter Visit Diagnoses Diagnosis Hx of pulmonary embolus- Primary Personal history of pulmonary embolism Longstanding persistent atrial fibrillation (HCC) Stark's esophagus with dysplasia Stark's esophagus documented in this encounter Advance Directives * Full Code (Latest Code Status on File) Date Activated Date Inactivated Comments 09/03/2007 7:29 AM 09/03/2007 4:02 PM
--- OUTSIDE RECORDS SUMMARY | 2024-05-28 18:25 | External Medical Summary | Summary of Care ---
Author Name Unknown Organization [facility] Address [address] [place] [address] Phone [phone] Care Team Providers Care Skull Chopper Name Role Phone Unavailable Primary Care Provider Unavailabl e Encounter Details Date Type Department Care Team (Late st Contact Info) Description 05/19/2024 Telephone Family Medicine [address] [phone] Bell Mcqueen MD [address] [place] [address] [place] [address] Allergies Active Allergy Reactions [...] albuterol 120 mL 5 11/21/2022 Active Ipratropium [place] 0.02 % Inhalation Solution (Atrovent)Indicat ions:Moderate persistent asthma without complication Inhale 2.5 mL via nebulizer in the morning and 2.5 mL at noon and 2.5 mL in the evening and 2.5 mL before bedtime. Mix with albuterol solution. 75 mL 12 11/21/2022 Active Spiriva Respimat 2.5 MCG/ACT Inhalation Aerosol Solution (Tiotropium [place] Monohydrate)Indic ations:Moderate persistent asthma without complication INHALE [...] Tablet Extended Release 12 Hour (Humibid [place])Indications:Ac [place] cough Take 1 Tablet by mouth in [...] EVERY EVENING. OR TAKE INSTRUCTED BY THE [facility] 90 Tablet 3 05/07/2024 [...] rinse after steroid. Test performed by Sameer PLUMBER GASFITTER CPFT Pleural plaque due to asbestos exposure Restrictive lung disease Overview: In Check dial performed to assess inhaler technique: 12/15/19 Name of inhalers Albuterol Pass: Yes at 60 L/min and Advair Pass: Yes at 60 L/min. Encouraged to to take deep breath, use aero chamber, and rinse after steroid. Test performed by Sameer PLUMBER GASFITTER CPFT Hx of pulmonary embolus 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 Overview: [place] C0-M6 documented as of this encounter (statuses [...] Malignant neoplasm of prostate 09/23/2008 03/27/2018 Overview: [place] grade 3 Atrial flutter 09/02/2007 10/16/2007 Herpes [...] mRNA, LNP-s, No Pre serve, 2-Dose Series (In[employer]) 12/01/2021,01/16/2021,12/26/2020 COVID-19, LNP-s, No Preserve , Ozzy-sucrose, Ages 12+ ([employer]) 12/01/2021 COVID-19, MRNA-LNP, 23-24, P F, 30 MCG/0.3 mL, 12 YRS AND ABOVE, IM ([facility]) 09/18/2023 Covid-19, Mrna, Lnp-s, Pf, B ivalent, 30 Mcg, IM, 12 yrs and above ([employer]) 10/09/2022 Pneumococcal Conjugate Vacc, 13 Valent (Prevnar) [...] 8:36 AM EDT Pt follows up with [facility] - last cystoscopy on 09/2023 - pls advise the pt to call the [facility] to set up a follow up Clinical note: - pt never established with me - pt and family were unhappy with the care (see Myg msg on 01/22/2024 and telephone encounter on 01/23/2024) - I recommend pt est with a physician as a pcp * Telephone Encounter - Ingris Garcia RPh - 05/19/2024 3:52 PM EDT Spoke with [...] any further recommendations. Thank You Ingris Garcia, GagandeepD Clinical Pharmacist Centralized Clinical Pharmacy Services ([facility]) [phone] / [phone] 05/19/2024, 3:54 PM documented in this encounter Plan of Treatment Upcoming Encounters Date Type Department Care Team (Latest Contact Info) Description 4 10:30 AM EDT Immunization/Inject ion Hematology/Onc ology Treatment, [place] 200 [facility] [place] [phone] Nurse, Med 4 200 [facility] [place] [address] 4 6:00 PM EDT Anticoagulation Centralized Clinical Pharmacy Services, Angela Giles [address] [place] [address] [place] [address] [facility], [address] [place] [address] 4 10:00 AM EDT Laboratory Laboratory [facility] Marylou [place] [address] [place] [phone] [place], [facility] 200 [facility] [place] [address] 4 10:30 AM EDT Immunization/Inject ion Hematology/Onc ology Treatment, [place] 200 [facility] [place] Calderón [phone] Nurse, Med 4 [address] [place] [address] 4 10:00 AM EDT Laboratory Laboratory [facility] Marylou [place] [address] [place] [phone] [place], Lab Scenery [address] [place] [address] 4 10:45 AM EDT Immunization/Inject ion Hematology/Onc ology Treatment, [place] 200 [facility], [place] [phone] Nurse, Med 4 [address] [place] [address] 4 10:00 AM EDT Laboratory Laboratory [facility] [place] [address] [place] [phone] [place], Lab Scenery 200 [facility] [place] [address] 4 10:30 AM EDT Immunization/Inject ion Hematology/Onc ology Treatment, [place] 200 [facility], [place] [phone] Nurse, Med 4 200 [facility] [place] [address] 4 10:10 AM EDT Laboratory Laboratory [facility] [place] [address] [place] [phone] [place], Lab Scenery 200 [facility] [address] [place], [place] [address] 4 10:30 AM EDT Immunization/Inject ion Hematology/Onc ology Treatment, [place] 200 [facility], [place] [phone] Nurse, Med 4 200 [facility] [place] [address] 4 8:40 AM EDT Office Visit Rheumatology [address] [place] [phone] Win Nielsen MD [facility] [place] [address] 4 11:45 AM EDT Hospital Encounter ENDO [facility], Endoscopy Suite, [facility]AM 1, [address] [place] [address] Dominog Garcia DO [address] [place] [facility] [place] [address] 4 11:45 AM EDT - 4 1:00 PM EDT Surgery [facility]O [facility], Endoscopy Suite, HFAM 1, [address] [place] [address] Domingo Garcia DO [address] [place] [facility] [place] [address] ESOPHAGOGASTRODUODENOSCOPY (EGD), FLEXIBLE, TRANSORAL, DIAGNOSTIC 5 11:20 AM EST Office Visit [address] [place] [address] Bell Mcqueen MD [address] [place] [address] [place] [address] Scheduled Procedures Name Priority Associated Diagnoses Date/Ti me ESOPHAGOGASTRODUODENOSCOPY ( EGD), FLEXIBLE, TRANSORAL, DIAGNOSTIC Recall Stark's esophagus with dysplasia 08/27/2024 11:45 AM EDT COLONOSCOPY FLEXIBLE PROXIMA L DIAGNOSTIC Recall Stark's esophagus with dysplasia 08/27/2024 11:45 AM EDT Health Maintenance Due Date Last Done Comments Depression Screening 07/12/2021 07/12/2020 CKD PHOS USE SMARTSET 76840 08/21/2022 10/0 02/2021, 07/12/2020, 03/13/2019, Additional history [...] Additional history exists CKD HGB USE SMARTSET 06332 05/18/202505/18, 05/12/2024, 05/12/2024, Additional history exists DXA Scan 07/05/2025 07/05/2023, 10/19, 11/04/2018, Additional history exists DTaP,Tdap,and Td Vaccines (2 - Td or Tdap) 08/19/2027 08/19/2017, 08/20/2008 Pneumococcal Vaccine: 65+ Years Completed 06/23/2015, 05/14/2013, 04/18/2004 Zoster Vaccines Completed 12/02/2020, 08/15/2020 VITAMIN D LEVEL ONCE IN A LIFETIME-USE SMARTSET# [id number] Completed 04/22/2023, 08/28/2021, 07/14/2015 HPV (Gardasil) Vaccine Aged Out No lo nger eligible based on patient's age to complete this topic Hepatitis B Vaccine Aged Out No longe r eligible based on patient's age to complete this topic MENINGOCOCCAL (MENACTRA/MENVEO) Aged Out No longer eligible based on patient's age to complete this topic documented as of this encounter Medical Devices Implanted Type Area Tar Kettle Runner Device Identifier Shelf Expiration Date Model / Serial / Lot Power Port 8fr Sngl Lumen Plas - [id number] Implanted:Qty: 1 on 02/22/2022 at [facility] BARD : PERIPHERAL VASCULAR [id number] 02/15/2023 [id number] / / [id number] documented as of this encounter Advance Directives * Full Code (Latest Code Status on File) Date Activated Date Inactivated Comments 09/03/2007 7:29 AM 09/03/2007 4:02 PM
--- OUTSIDE RECORDS SUMMARY | 2024-05-28 18:25 | External Medical Summary | Summary of Care ---
Author Name Unknown Organization [facility] Address [address] [place] [address] Phone [phone] Care Team Providers Care Audit Tech Name Role Phone Unavailable Primary Care Provider Unavailabl e Encounter Details Date Type Department Care Team (Late st Contact Info) Description 05/22/2024 Result Scan Unspecified Department Tammie Scruggs, [facility] [address] [place] [address] <No scans attached> Allergies Active Allergy Reactions Criticality Noted Date Comments Penicillins Other (Please comment),Rash High Eyes swell Pollen 05/03/2022 Wound Dressing Adhesive Rash 05/02/2023 Patient reported Olanzapine Neuro complications (Please comment) 04/09/2024 documented as of this encounter (statuses as of 05/22/2024) Medications Medication Sig Dispensed Refills Start Date [...] albuterol 120 mL 5 11/21/2022 Active Ipratropium [place] 0.02 % Inhalation Solution (Atrovent)Indicat ions:Moderate persistent asthma without complication Inhale 2.5 mL via nebulizer in the morning and 2.5 mL at noon and 2.5 mL in the evening and 2.5 mL before bedtime. Mix with albuterol solution. 75 mL 12 11/21/2022 Active Spiriva Respimat 2.5 MCG/ACT Inhalation Aerosol Solution (Tiotropium [place] Monohydrate)Indic ations:Moderate persistent asthma without complication INHALE [...] Tablet Extended Release 12 Hour (Humibid [place])Indications:Ac osage cough Take 1 Tablet by mouth in [...] EVERY EVENING. OR TAKE INSTRUCTED BY THE [facility] 90 Tablet 3 05/07/2024 [...] as of this encounter (statuses as of 05/22/2024) Active Problems Problem Noted Date Diagnosed Date [...] rinse after steroid. Test performed by Sameer WINDOW INSTALLATION SUBCONTRACTOR CPFT Pleural plaque due to asbestos exposure Restrictive lung disease Overview: In Check dial performed to assess inhaler technique: 12/15/19 Name of inhalers Albuterol Pass: Yes at 60 L/min and Advair Pass: Yes at 60 L/min. Encouraged to to take deep breath, use aero chamber, and rinse after steroid. Test performed by Sameer WINDOW INSTALLATION SUBCONTRACTOR CPFT Hx of pulmonary embolus 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 Overview: [place] C0-M6 documented as of this encounter (statuses as of 05/22/2024) Resolved Problems Problem Noted Date Diagnosed Date [...] Malignant neoplasm of prostate 09/23/2008 03/27/2018 Overview: [place] grade 3 Atrial flutter 09/02/2007 10/16/2007 Herpes [...] as of this encounter (statuses as of 05/22/2024) Immunizations Name Administration Dates Next Due COVID-19 mRNA, LNP-s, No Pre serve, 2-Dose Series ([employer]) 12/01/2021,01/16/2021,12/26/2020 COVID-19, LNP-s, No Preserve , Ozzy-sucrose, Ages 12+ ([employer]) 12/01/2021 COVID-19, MRNA-LNP, 23-24, P F, 30 MCG/0.3 mL, 12 YRS AND ABOVE, IM ([facility]) 09/18/2023 Covid-19, Mrna, Lnp-s, Pf, B ivalent, 30 Mcg, IM, 12 yrs and above ([employer]) 10/09/2022 Pneumococcal Conjugate Vacc, 13 Valent [...] Anticoagulation Centralized Clinical Pharmacy Services, Angela Giles [address] [place] [address] [place] [address] [facility], [address] [place] [address] Hx of pulmonary embolus*; Longstanding persistent atrial fibrillation (HCC) 4 10:00 AM EDT Laboratory Laboratory State Ziggy Overton [address] [place] [phone] Kailyn Hickman [address] [place] [address] 4 10:30 AM EDT Immunization/Inject ion Hematology/Onc ology Treatment, [place] [address] [place] [phone] Nurse, Med [address] [address] 4 10:00 AM EDT Laboratory Laboratory Dony Hickman [place] [address] [phone] [place], Lab Scenery [address] [place], [place] [address] 4 10:45 AM EDT Immunization/Inject ion Hematology/Onc ology Treatment, [place] 200 [facility], [place] [address] Nurse, Med 4 [address] [place] [address] 4 10:00 AM EDT Laboratory Laboratory [facility] [place] [address] [place], [place] [address] [place], Lab Scenery [address] [place], [place] [address] 4 10:30 AM EDT Immunization/Inject ion Hematology/Onc ology Treatment, [place] 200 [facility], [place] [address] Nurse, Med 4 [address] [place], [place] [address] 4 10:10 AM EDT Laboratory Laboratory [facility] [address] [place], [place] [phone] [place], Lab Scenery [address] [place], [place] [address] 4 10:30 AM EDT Immunization/Inject ion Hematology/Onc ology Treatment, [place] 200 [facility], [place] [address] Nurse, Med 4 [address] [place] [address] 4 8:40 AM EDT Office Visit Rheumatology [address] [place] [phone] Win Nielsen MD [address] [facility] [place], [place] [address] 4 11:45 AM EDT Hospital Encounter [facility], Endoscopy Suite, HFAM 1, [address] [place] [address] Domingo Garcia DO [address] [place] [facility] [place] [address] 4 11:45 AM EDT - 4 1:00 PM EDT Surgery ENDO [facility], Endoscopy Suite, HFAM 1, [address] [place] [address] Domingo Garcia DO [address] [place] [facility] [place] [address] ESOPHAGOGASTRODUODENOSCOPY (EGD), FLEXIBLE, TRANSORAL, DIAGNOSTIC 5 11:20 AM EST Office Visit [address] [place] [phone] Bell Mcqueen MD [address] [place] [address] [place] [address] Scheduled Procedures Name Priority Associated Diagnoses Date/Ti me ESOPHAGOGASTRODUODENOSCOPY ( EGD), FLEXIBLE, TRANSORAL, DIAGNOSTIC Recall Stark's esophagus with dysplasia 08/27/2024 11:45 AM EDT COLONOSCOPY FLEXIBLE PROXIMA L DIAGNOSTIC Recall Stark's esophagus with dysplasia 08/27/2024 11:45 AM EDT Health Maintenance Due Date Last Done Comments Depression Screening 07/12/2021 07/12/2020 CKD PHOS USE SMARTSET 40626 08/21/2022 10/0 02/2021, 07/12/2020, 03/13/2019, Additional history [...] Additional history exists CKD HGB USE SMARTSET 41263 05/18/202505/18, 05/12/2024, 05/12/2024, Additional history exists DXA Scan 07/05/2025 07/05/2023, 10/19, 11/04/2018, Additional history exists DTaP,Tdap,and Td Vaccines (2 - Td or Tdap) 08/19/2027 08/19/2017, 08/20/2008 Pneumococcal Vaccine: 65+ Years Completed 06/23/2015, 05/14/2013, 04/18/2004 Zoster Vaccines Completed 12/02/2020, 08/15/2020 VITAMIN D LEVEL ONCE IN A LIFETIME-USE SMARTSET# [id number] Completed 04/22/2023, 08/28/2021, 07/14/2015 HPV (Gardasil) Vaccine [...] encounter Medical Devices Implanted Type Area Electrician Assistant Device Identifier Shelf Expiration Date Model / Serial / Lot Power Port 8fr Sngl Lumen Plas - [id number] Implanted:Qty: 1 on 02/22/2022 at [facility] CR BARD : PERIPHERAL VASCULAR [id number] 02/15/2023 [id number] / / [id number] documented as of this encounter Procedures Procedure Name Priority Date/Time Associated Diagnosis Comments OUTSIDE LAB RESULTS 05/22/2024 documented in this encounter Results * OUTSIDE LAB RESULTS (05/22/2024) 05/22/2024 Tammie Scruggs [facility] LABORATORY documented in this encounter Advance Directives * Full Code (Latest Code Status on File) Date Activated Date Inactivated Comments 09/03/2007 7:29 AM 09/03/2007 4:02 PM
--- OUTSIDE RECORDS SUMMARY | 2024-05-28 18:25 | External Medical Summary | Summary of Care ---
Author Name Unknown Organization [facility] Address [address] [place] [address] Phone [phone] Care Team Providers Care Software Engineering Specialist Name Role Phone Bell Mcqueen MD Primary Care Provide r Reason for Visit * Reason Onset Date Comments Emergency Department Follow-Up 05/22/2024 Encounter Details Date Type Department Care Team (Late st Contact Info) Description 05/22/2024 Telephone Family [address] [phone] Bell Mcqueen MD [address] [place] [address] [place] [address] Emergency Department Follow-Up Allergies Active Allergy Reactions Criticality Noted Date [...] albuterol 120 mL 5 11/21/2022 Active Ipratropium [place] 0.02 % Inhalation Solution (Atrovent)Indicat ions:Moderate persistent asthma without complication Inhale 2.5 mL via nebulizer in the morning and 2.5 mL at noon and 2.5 mL in the evening and 2.5 mL before bedtime. Mix with albuterol solution. 75 mL 12 11/21/2022 Active Spiriva Respimat 2.5 MCG/ACT Inhalation Aerosol Solution (Tiotropium [place] Monohydrate)Indic ations:Moderate persistent asthma without complication INHALE [...] Tablet Extended Release 12 Hour (Humibid [place])Indications:Ac [place] cough Take 1 Tablet by mouth in [...] EVERY EVENING. OR TAKE INSTRUCTED BY THE [facility] 90 Tablet 3 05/07/2024 [...] rinse after steroid. Test performed by Sameer TECHNICAL DOCUMENT WRITER CPFT Pleural plaque due to asbestos exposure Restrictive lung disease Overview: In Check dial performed to assess inhaler technique: 12/15/19 Name of inhalers Albuterol Pass: Yes at 60 L/min and Advair Pass: Yes at 60 L/min. Encouraged to to take deep breath, use aero chamber, and rinse after steroid. Test performed by Sameer TECHNICAL DOCUMENT WRITER CPFT Hx of pulmonary embolus 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 Overview: [place] C0-M6 documented as of this encounter (statuses [...] mRNA, LNP-s, No Pre serve, 2-Dose Series ([employer]) 12/01/2021,01/16/2021,12/26/2020 COVID-19, LNP-s, No Preserve , Ozzy-sucrose, Ages 12+ ([employer]) 12/01/2021 COVID-19, MRNA-LNP, 23-24, P F, 30 MCG/0.3 mL, 12 YRS AND ABOVE, IM ([employer]Comirnaty) 09/18/2023 Covid-19, Mrna, Lnp-s, Pf, B ivalent, 30 Mcg, IM, 12 yrs and above ([employer]) 10/09/2022 Pneumococcal Conjugate Vacc, 13 Valent (Prevnar) [...] Encounter - Leyda Oviedo RN - 05/23/2024 2:15 PM EDT appt given for 05/25/24 * Telephone Encounter - Tiana Huff OSA - 05/22/2024 10:30 AM EDT Patient needs ED Follow-up. Did patient decline to see other providers in their home clinic? : YES If New Patient - Were surrounding clinics offered? N/A Please see call details. documented in this encounter Plan of Treatment Upcoming Encounters Date Type Department Care Team (Latest Contact Info) Description 10:40 AM EDT Office Visit Family [address] [phone] Juancho Romero MD [address] [place] [address] [place] [address] 4 10:00 AM EDT Laboratory Laboratory [facility] [place] [address] [place] [phone] [place], Lab Scenery [address] [place], [place] [address] 4 10:30 AM EDT Immunization/Inject ion Hematology/Onc ology Treatment, [place] 200 [facility], [place] [address] Nurse, Med [address] [place] [address] 4 10:00 AM EDT Laboratory Laboratory [facility] [place] [address] [place] [phone] [place], Lab Scenery [address] [place], [place] [address] 4 10:45 AM EDT Immunization/Inject ion Hematology/Onc ology Treatment, [place] 200 [facility], [place] [address] Nurse, Med [address] [place], [place] [address] 4 6:30 AM EDT Anticoagulation Centralized Clinical Pharmacy Services, Angela Giles [address] [place] [address] [place] [address] [facility], [address] [place] [address] 4 10:00 AM EDT Laboratory Laboratory [facility] [place] [address] [place] [phone] [place], Lab Scenery [address] [place], [place] [address] 4 10:30 AM EDT Immunization/Inject ion Hematology/Onc ology Treatment, [place] 200 [facility], [place] [phone] Nurse, Med 4 200 [facility] [place] [address] 4 10:10 AM EDT Laboratory Laboratory [facility] 200 [facility] [place] [phone] [place], Lab [facility] 200 [facility] [place] [address] 4 10:30 AM EDT Immunization/Inject ion Hematology/Onc ology Treatment, [place] [facility] [phone] Nurse, Med 4 200 [facility] [place] [address] 4 8:40 AM EDT Office Visit Rheumatology [address] [place] [address] Win Nielsen MD [facility] [place] [address] 4 11:45 AM EDT Hospital Encounter [facility], Endoscopy Suite, HFAM 1, [address] [place], [place] [address] Domingo Garcia DO [address] [facility] [id number] 4 11:45 AM EDT - 4 1:00 PM EDT Surgery [facility], Endoscopy Suite, HFAM 1, [address] [place], [place] [id number] Domingo Garcia DO [address] [facility] [id number] ESOPHAGOGASTRODUODENOSCOPY (EGD), FLEXIBLE, TRANSORAL, DIAGNOSTIC 5 11:20 AM EST Office Visit Family Medicine [address] [place] [phone] Bell Mcqueen MD [address] [place] [address] [place] [address] Scheduled Procedures Name Priority Associated Diagnoses Date/Ti me ESOPHAGOGASTRODUODENOSCOPY ( EGD), FLEXIBLE, TRANSORAL, DIAGNOSTIC Recall Stark's esophagus with dysplasia 08/27/2024 11:45 AM EDT COLONOSCOPY FLEXIBLE PROXIMA L DIAGNOSTIC Recall Stark's esophagus with dysplasia 08/27/2024 11:45 AM EDT Health Maintenance Due Date Last Done Comments Depression Screening 07/12/2021 07/12/2020 CKD PHOS USE SMARTSET 36114 08/21/2022 1002/2021, 07/12/2020, 03/13/2019, Additional history exists *BISPHONATE OR [...] Additional history exists CKD HGB USE SMARTSET 68335 05/18/202505/18, 05/12/2024, 05/12/2024, Additional history exists DXA Scan 07/05/2025 07/05/2023, 10/19, 11/04/2018, Additional history exists DTaP,Tdap,and Td Vaccines (2 - Td or Tdap) 08/19/2027 08/19/2017, 08/20/2008 Pneumococcal Vaccine: 65+ Years Completed 06/23/2015, 05/14/2013, 04/18/2004 Zoster Vaccines Completed 12/02/2020, 08/15/2020 VITAMIN D LEVEL ONCE IN A LIFETIME-USE SMARTSET# [id number] Completed 04/22/2023, 08/28/2021, 07/14/2015 HPV (Gardasil) Vaccine Aged Out No lo nger eligible based on patient's age to complete this topic Hepatitis B Vaccine Aged Out No longe r eligible based on patient's age to complete this topic MENINGOCOCCAL (MENACTRA/MENVEO) Aged Out No longer eligible based on patient's age to complete this topic documented as of this encounter Medical Devices Implanted Type Area Trade Analyst Device Identifier Shelf Expiration Date Model / Serial / Lot Power Port 8fr Sngl Lumen Plas - [id number] Implanted:Qty: 1 on 02/22/2022 at [facility] CR BARD : PERIPHERAL VASCULAR [id number] 02/15/2023 [id number] / / [id number] documented as of this encounter Advance Directives * Full Code (Latest Code Status on File) Date Activated Date Inactivated Comments 09/03/2007 7:29 AM 09/03/2007 4:02 PM Care Teams Software Engineering Specialist Relationship Specialty Start Date End Date Bell Mcqueen MD [address] [place] [address] [place] [address] PCP - General Family Medicine 05/23/24 documented as of this encounter
--- OUTSIDE RECORDS SUMMARY | 2024-05-28 18:25 | External Medical Summary | Summary of Care ---
Author Name Unknown Organization [facility] [address] [facility] [address] Phone [phone] Care Team Providers Care Tour Bus Driver/Guide Name Role Phone Unavailable Primary Care Provider Unavailabl e Reason for Visit * Reason Comments Dosage Adjustment Via Phone (anticoag Cl inic) Encounter Details Date Type Department Care Team (Late st Contact Info) Description 05/22/2024 6:00 PM EDT Anticoagulation Centralized Clinical Pharmacy Services, Angela Giles [address] [place] [address] [place] [address] [facility], [address] [place] [address] Hx of pulmonary embolus*; Longstanding persistent atrial [...] albuterol 120 mL 5 11/21/2022 Active Ipratropium [place] 0.02 % Inhalation Solution (Atrovent)Indicat ions:Moderate persistent asthma without complication Inhale 2.5 mL via nebulizer in the morning and 2.5 mL at noon and 2.5 mL in the evening and 2.5 mL before bedtime. Mix with albuterol solution. 75 mL 12 11/21/2022 Active Spiriva Respimat 2.5 MCG/ACT Inhalation Aerosol Solution (Tiotropium [place] Monohydrate)Indic ations:Moderate persistent asthma without complication INHALE [...] EVERY EVENING. OR TAKE INSTRUCTED BY THE [facility] 90 Tablet 3 05/07/2024 Active [...] rinse after steroid. Test performed by Sameer SONOGRAM TECHNICIAN CPFT Pleural plaque due to asbestos exposure Restrictive lung disease Overview: In Check dial performed to assess inhaler technique: 12/15/19 Name of inhalers Albuterol Pass: Yes at 60 L/min and Advair Pass: Yes at 60 L/min. Encouraged to to take deep breath, use aero chamber, and rinse after steroid. Test performed by Sameer SONOGRAM TECHNICIAN CPFT Hx of pulmonary embolus 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 Overview: [place] C0-M6 documented as of this encounter [...] Malignant neoplasm of prostate 09/23/2008 03/27/2018 Overview: [place] grade 3 Atrial flutter 09/02/2007 10/16/2007 Herpes [...] mRNA, LNP-s, No Pre serve, 2-Dose Series ([employer]) 12/01/2021,01/16/2021,12/26/2020 COVID-19, LNP-s, No Preserve , Ozzy-sucrose, Ages 12+ ([employer]) 12/01/2021 COVID-19, MRNA-LNP, 23-24, P F, 30 MCG/0.3 mL, 12 YRS AND ABOVE, IM ([employer]ir[employer]) 09/18/2023 Covid-19, Mrna, Lnp-s, Pf, B ivalent, 30 Mcg, IM, 12 yrs and above ([employer]) 10/09/2022 Pneumococcal Conjugate Vacc, 13 Valent (Prevnar) [...] as of this encounter Progress Notes * Tammie Scruggs, [facility] - 05/22/2024 3:04 PM EDT Images from the original note were not included. Medication Therapy Disease Management - Anticoagulation Patient: Patrick Moffettith | : 1935 Subjective Contacts Type Contact Phone/Fax 05/22/2024 01:44 PM EDT Phone (Incoming) MARIANA CARMEN (Emergency Contact) [phone] (M) 05/22/2024 03:09 PM EDT Phone (Outgoing) Patrick Carmen "Emerita" (Self) [phone] (M) Spoke to Patient - emerita Patient-Reported Symptoms: Patient Findings Positives: Signs/symptoms of bleeding Comments: confirms they picked up Lovenox Rx and bridge sheet, denies need for review. She reached out to Urology regarding blood in urine. Was advised to have colonoscopy first and then they will schedule to scope bladder. She states he some days has blood in urine in the morning and then nothing the rest of the day. Objective Current Warfarin Dose As of 05/22/2024 Warfarin maintenance plan: 0 mg every Mon, Fri; 2.5 mg (5 mg x 0.5) all other days INR Result As of 05/22/2024 INR goal: 2.0-3.0 INR used for dosin.3 (05/22/2024) Assessment & Plan Warfarin Plan As of 05/22/2024 Full warfarin instructions: 05/24: Hold; 05/25: Hold; 05/26: Hold; 05/27: Hold; 05/28: Hold; 05/29: 5 mg; 05/30: 5 mg; Otherwise 0 mg every Mon, Fri; 2.5 mg all other days Next INR check: 06/05/2024 Repeat PT/INR in 1 week(s) after procedure Weekly dose: not changed Additional Dosing Information: Description Home machine EGD/ Colonoscopy at [facility] 05/29/24 Tammie Scruggs RP Clinical Pharmacist 05/22/2024, 3:12 PM * Tammie Rogers CPhT - 05/22/2024 1:44 PM EDT Caller's name: pts Preferred call back number(OFFICE NUMBER FOR ): [phone] Reason for call: Calling to report her husbands INR results from today 05/22. It is 3.3 Thank you, Tammie Mancera CPhT Clinic Clerk III Centralized Clinical Pharmacy Services ([facility]) 05/22/2024,1:45 PM documented in this encounter Plan of Treatment Upcoming Encounters Date Type Department Care Team (Latest Contact Info) Description 4 10:00 AM EDT Laboratory Laboratory [place] Ziggy Overton [address] [place] [phone] Kailyn Hickman [address] [place] [address] 4 10:30 AM EDT Immunization/Inject ion Hematology/Onc ology Treatment, [place] 200 [facility], [place] [phone] Nurse, Med 4 [address] [place], [place] [address] 4 10:00 AM EDT Laboratory Laboratory [facility] [address] [place] [address] [place], Lab Scenery [address] [place], [place] [address] 4 10:45 AM EDT Immunization/Inject ion Hematology/Onc ology Treatment, [place] 200 [facility], [place] [address] Nurse, Med [address] [place] [address] 4 6:30 AM EDT [facility] Centralized Clinical Pharmacy Services, Angela Giles [address] [place] [address] [place] [address] [facility], [address] [place] [address] 4 10:00 AM EDT Laboratory Laboratory [facility] [place] [address] [place] [phone] [place], Lab Scenery [address] [address] 4 10:30 AM EDT Immunization/Inject ion Hematology/Onc ology Treatment, [place] 200 [facility] [place], [place] [address] Nurse, Med [address] [address] 4 10:10 AM EDT Laboratory Laboratory [facility] [place] [address] [place] [address] [place], Lab Scenery [address] [place] [address] 4 10:30 AM EDT Immunization/Inject ion Hematology/Onc ology Treatment, [place] [address] [place] [address] Nurse, Med 4 [address] [facility] [address] 4 8:40 AM EDT Office Visit Rheumatology [address] [place] [phone] Win Nielsen MD [address] [facility] [place] [address] 4 11:45 AM EDT Hospital Encounter ENDO [facility], Endoscopy Suite, HFAM 1, [address] [place] [address] Domingo Garcia DO [address] [place] [address] 4 11:45 AM EDT - 4 1:00 PM EDT Surgery ENDO [facility], Endoscopy Suite, HFAM 1, [address] [place], [place] [id number] Domingo Garcia DO [address] [place] [address] ESOPHAGOGASTRODUODENOSCOPY (EGD), FLEXIBLE, TRANSORAL, DIAGNOSTIC 5 11:20 AM EST Office Visit Family Medicine [address] [place] [phone] Blel Mcqueen MD [address] [place] [address] [place] [address] Scheduled Procedures Name Priority Associated Diagnoses Date/Ti me ESOPHAGOGASTRODUODENOSCOPY ( EGD), FLEXIBLE, TRANSORAL, DIAGNOSTIC Recall Stark's esophagus with dysplasia 08/27/2024 11:45 AM EDT COLONOSCOPY FLEXIBLE PROXIMA L DIAGNOSTIC Recall Stark's esophagus with dysplasia 08/27/2024 11:45 AM EDT Health Maintenance Due Date Last Done Comments Depression Screening 07/12/2021 07/12/2020 CKD PHOS USE SMARTSET 81683 08/21/2022 10/0 02/2021, 07/12/2020, 03/13/2019, Additional history [...] Additional history exists CKD HGB USE SMARTSET 08770 05/18/202505/18, 05/12/2024, 05/12/2024, Additional history exists DXA Scan 07/05/2025 07/05/2023, 10/19, 11/04/2018, Additional history exists DTaP,Tdap,and Td Vaccines (2 - Td or Tdap) 08/19/2027 08/19/2017, 08/20/2008 Pneumococcal Vaccine: 65+ Years Completed 06/23/2015, 05/14/2013, 04/18/2004 Zoster Vaccines Completed 12/02/2020, 08/15/2020 VITAMIN D LEVEL ONCE IN A LIFETIME-USE SMARTSET# [id number] Completed 04/22/2023, 08/28/2021, 07/14/2015 HPV (Gardasil) Vaccine Aged Out No lo nger eligible based on patient's age to complete this topic Hepatitis B Vaccine Aged Out No longe r eligible based on patient's age to complete this topic MENINGOCOCCAL (MENACTRA/MENVEO) Aged Out No longer eligible based on patient's age to complete this topic documented as of this encounter Medical Devices Implanted Type Area Industrial Hygenist Device Identifier Shelf Expiration Date Model / Serial / Lot Power Port 8fr Sngl Lumen Plas - [id number] Implanted:Qty: 1 on 02/22/2022 at [facility] BARD : PERIPHERAL VASCULAR [id number] 02/15/2023 [id number] / / [id number] documented as of this encounter Procedures Procedure Name Priority Date/Time Associated Diagnosis Comments OUTSIDE LAB-PT/INR Routine 05/22/2024 documented in this encounter Results * OUTSIDE LAB-PT/INR (05/22/2024) INR-OUTSIDE LAB 3.3 History Per Patient LABORATORY documented in this [...]
--- OUTSIDE RECORDS SUMMARY | 2024-05-28 18:25 | External Medical Summary | Summary of Care ---
Author Name Unknown Organization [facility] Address [address] [place] [address] Phone [phone] Care Team Providers Care Admitting Counselor Name Role Phone Unavailable Primary Care Provider Unavailabl e Encounter Details Date Type Department Care Team (Late st Contact Info) Description 05/19/2024 Telephone Family Medicine [address] [phone] Bell Mcqueen MD [address] [place] [address] [place] [address] Allergies Active Allergy Reactions [...] albuterol 120 mL 5 11/21/2022 Active Ipratropium [place] 0.02 % Inhalation Solution (Atrovent)Indicat ions:Moderate persistent asthma without complication Inhale 2.5 mL via nebulizer in the morning and 2.5 mL at noon and 2.5 mL in the evening and 2.5 mL before bedtime. Mix with albuterol solution. 75 mL 12 11/21/2022 Active Spiriva Respimat 2.5 MCG/ACT Inhalation Aerosol Solution (Tiotropium [place] Monohydrate)Indic ations:Moderate persistent asthma without complication INHALE [...] EVERY EVENING. OR TAKE INSTRUCTED BY THE [facility] 90 Tablet 3 05/07/2024 Active [...] and rinse after steroid. Test performed by Samere METEOROLOGICAL TECHNICIAN CPFT Pleural plaque due to asbestos exposure Restrictive lung disease Overview: In Check dial performed to assess inhaler technique: 12/15/19 Name of inhalers Albuterol Pass: Yes at 60 L/min and Advair Pass: Yes at 60 L/min. Encouraged to to take deep breath, use aero chamber, and rinse after steroid. 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 [...] mRNA, LNP-s, No Pre serve, 2-Dose Series ([employer]) 12/01/2021,01/16/2021,12/26/2020 COVID-19, LNP-s, No Preserve , Ozzy-sucrose, Ages 12+ ([employer]) 12/01/2021 COVID-19, MRNA-LNP, 23-24, P F, 30 MCG/0.3 mL, 12 YRS AND ABOVE, IM ([facility]) 09/18/2023 Covid-19, Mrna, Lnp-s, Pf, B ivalent, 30 Mcg, IM, 12 yrs and above ([employer]) 10/09/2022 Pneumococcal Conjugate Vacc, 13 Valent (Prevnar) [...] 8:36 AM EDT Pt follows up with [facility] - last cystoscopy on 09/2023 - pls advise the pt to call the [facility] to set up a follow up [...] Clinical Pharmacist [facility] ([facility]) [phone] / [phone] 05/19/2024, 3:54 PM documented in this encounter Plan of Treatment Upcoming Encounters Date Type Department Care Team (Latest Contact Info) Description 4 10:40 AM EDT Office Visit Family Medicine [address] [place] [phone] Juancho Romero MD [address] [place] [address] [place] [address] 4 10:00 AM EDT Laboratory Laboratory [facility] [address] [place] [phone] [place] Lab [address] [place] [address] 4 10:30 AM EDT Immunization/Inject ion Hematology/Onc ology Treatment, [place] [facility] [phone] Nurse, Med 4 200 [facility] [place] [address] 4 10:00 AM EDT Laboratory Laboratory [facility] [place] 200 [facility] [place] [phone] [place], Lab [facility] 200 [facility] [place] [address] 4 10:45 AM EDT Immunization/Inject ion Hematology/Onc ology Treatment, [place] 200 [facility] [phone] Nurse, Med 4 200 [facility] [place] [address] 4 6:30 AM EDT Anticoagulation [facility], Angela Giles [address] [place] [address] [place] [address] [facility], [address] [place] [address] 4 10:00 AM EDT Laboratory Laboratory [facility] [place] [address] [place] [phone] [place], Lab Scenery [address] [place] [address] 4 10:30 AM EDT Immunization/Inject ion Hematology/Onc ology Treatment, [place] 200 [facility] [place] [phone] Nurse, Med 4 200 [facility] [place] [address] 4 10:10 AM EDT Laboratory Laboratory [facility] [place] [address] [place] [phone] [place], Lab Scenery 200 [facility] [place] [address] 4 10:30 AM EDT Immunization/Inject ion Hematology/Onc ology Treatment, [place] 200 [facility] [place] [phone] Nurse, Med 4 200 [facility] [place] [address] 4 8:40 AM EDT Office Visit Rheumatology [address] [place] [phone] Win Nielsen MD [facility] [place] [address] 4 11:45 AM EDT Hospital Encounter ENDO C, Endoscopy Suite, HFAM 1, [address] [place] [address] Domingo Garcia DO [address] [place] [facility] [address] 4 11:45 AM EDT - 4 1:00 PM EDT Surgery ENDO [facility], Endoscopy Suite, HFAM 1, [address] [place] [address] Domingo Garcia DO [address] [place] [address] ESOPHAGOGASTRODUODENOSCOPY (EGD), FLEXIBLE, TRANSORAL, DIAGNOSTIC 5 11:20 AM EST Office Visit [address] [place] [address] Bell Mcqueen MD [address] [place] [address] [place] [phone] Scheduled Procedures Name Priority Associated Diagnoses Date/Ti me ESOPHAGOGASTRODUODENOSCOPY ( EGD), FLEXIBLE, TRANSORAL, DIAGNOSTIC Recall Stark's esophagus with dysplasia 08/27/2024 11:45 AM EDT COLONOSCOPY FLEXIBLE PROXIMA L DIAGNOSTIC Recall Stark's esophagus with dysplasia 08/27/2024 11:45 AM EDT Health Maintenance Due Date Last Done Comments Depression Screening 07/12/2021 07/12/2020 CKD PHOS USE SMARTSET 54041 08/21/2022 10/0 02/2021, 07/12/2020, 03/13/2019, Additional history [...] Additional history exists CKD HGB USE SMARTSET 21633 05/18/202505/18, 05/12/2024, 05/12/2024, Additional history exists DXA Scan 07/05/2025 07/05/2023, 10/19, 11/04/2018, Additional history exists DTaP,Tdap,and Td Vaccines (2 - Td or Tdap) 08/19/2027 08/19/2017, 08/20/2008 Pneumococcal Vaccine: 65+ Years Completed 06/23/2015, 05/14/2013, 04/18/2004 Zoster Vaccines Completed 12/02/2020, 08/15/2020 VITAMIN D LEVEL ONCE IN A LIFETIME-USE SMARTSET# [id number] Completed 04/22/2023, 08/28/2021, 07/14/2015 HPV (Gardasil) Vaccine Aged Out No lo nger eligible based on patient's age to complete this topic Hepatitis B Vaccine Aged Out No longe r eligible based on patient's age to complete this topic MENINGOCOCCAL (MENACTRA/MENVEO) Aged Out No longer eligible based on patient's age to complete this topic documented as of this encounter Medical Devices Implanted Type Area Marketing Automation Manager Device Identifier Shelf Expiration Date Model / Serial / Lot Power Port 8fr Sngl Lumen Plas - [id number] Implanted:Qty: 1 on 02/22/2022 at [facility] CR BARD : PERIPHERAL VASCULAR [id number] 02/15/2023 [id number] / / [id number] documented as of this encounter Advance Directives * Full Code (Latest Code Status on File) Date Activated Date Inactivated Comments 09/03/2007 7:29 AM 09/03/2007 4:02 PM
--- OUTSIDE RECORDS SUMMARY | 2024-05-28 18:25 | External Medical Summary | Summary of Care ---
Author Name Unknown Organization [facility] Address [address] [place] [address] Phone [phone] Care Team Providers Care Charge Account Authorizer Name Role Phone Unavailable Primary Care Provider Unavailabl e Encounter Details Date Type Department Care Team (Late st Contact Info) Description 05/18/2024 Orders Only Hematology/Oncology [facility] [place] 200 [facility] [place] [phone] Ludwig Louis MD [address] [place] [address] Allergies Active Allergy Reactions Criticality Noted Date [...] albuterol 120 mL 5 11/21/2022 Active Ipratropium [place] 0.02 % Inhalation Solution (Atrovent)Indicat ions:Moderate persistent asthma without complication Inhale 2.5 mL via nebulizer in the morning and 2.5 mL at noon and 2.5 mL in the evening and 2.5 mL before bedtime. Mix with albuterol solution. 75 mL 12 11/21/2022 Active Spiriva Respimat 2.5 MCG/ACT Inhalation Aerosol Solution (Tiotropium [place] Monohydrate)Indic ations:Moderate persistent asthma without complication INHALE [...] EVERY EVENING. OR TAKE INSTRUCTED BY [facility] 90 Tablet 3 05/07/2024 [...] rinse after steroid. Test performed by Sameer FACILITIES SPECIALIST CPFT Pleural plaque due to asbestos exposure Restrictive lung disease Overview: In Check dial performed to assess inhaler technique: 12/15/19 Name of inhalers Albuterol Pass: Yes at 60 L/min and Advair Pass: Yes at 60 L/min. Encouraged to to take deep breath, use aero chamber, and rinse after steroid. 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) 09/18/2023 Covid-19, Mrna, Lnp-s, Pf, B ivalent, 30 Mcg, IM, 12 yrs and above ([employer]) 10/09/2022 Pneumococcal Conjugate Vacc, 13 Valent (Prevnar) [...] Description 4 10:00 AM EDT Laboratory Laboratory [facility] [place] [address] [place] [phone] [place] [address] [address] [place] [address] 4 6:15 AM EDT Anticoagulation [facility] Services, Angela Giles [address] [place] [address] [place] [address] [place] [address] 4 10:30 AM EDT Immunization/Inject ion Hematology/Onc ology Treatment, [place] [address] [place] [phone] Nurse, Med [address] [address] 4 10:00 AM EDT Laboratory Laboratory [facility] [place] [address] [phone] [place], Lab Scenery [address] [place] [address] 4 10:30 AM EDT Immunization/Inject ion Hematology/Onc ology Treatment, [place] 200 [facility], [place] [address] Nurse, Med 4 [address] [place] [address] 4 10:00 AM EDT Laboratory Laboratory [facility] [address] [place] [address] Marylou Lab Scenery [address] [place] [address] 4 10:45 AM EDT Immunization/Inject ion Hematology/Onc ology Treatment, [place] 200 [place] [address] Nurse, Med 4 [address] [place] [address] 4 10:00 AM EDT Laboratory Laboratory [facility] [address] [place], [place] [phone] [place], Lab Scenery [address] [place] [address] 4 10:30 AM EDT Immunization/Inject ion Hematology/Onc ology Treatment, [place] 200 [place] [address] Nurse, Med 4 [address] [place] [address] 4 10:10 AM EDT Laboratory Laboratory [facility] [address] [place] [address] [place], Lab Scenery [address] [place] [address] 4 10:30 AM EDT Immunization/Inject ion Hematology/Onc ology Treatment, [place] [address] [place] [address] Nurse, Med 4 200 [facility] [place] [address] 4 8:40 AM EDT Office Visit Rheumatology [address] [place] [phone] Win Nielsen MD [address] [facility] [place] [address] 4 11:45 AM EDT Hospital Encounter ENDO [facility], Endoscopy Suite, HFAM 1, [address] [place], [place] [phone] Domingo Garcia DO [address] [place], [place] [phone] 4 11:45 AM EDT - 4 1:00 PM EDT Surgery ENDO [facility], Endoscopy Suite, HFAM 1, [address] [place], [place] [phone] Domingo Garcia DO [address] [place] [address] ESOPHAGOGASTRODUODENOSCOPY (EGD), FLEXIBLE, TRANSORAL, DIAGNOSTIC 5 11:20 AM EST Office Visit Family Medicine [address] [phone] Bell Mcqueen MD [address] [place] [address] [place] [address] Scheduled Procedures Name Priority Associated Diagnoses Date/Ti me ESOPHAGOGASTRODUODENOSCOPY ( EGD), FLEXIBLE, TRANSORAL, DIAGNOSTIC Recall Stark's esophagus with dysplasia 08/27/2024 11:45 AM EDT COLONOSCOPY FLEXIBLE PROXIMA L DIAGNOSTIC Recall Stark's esophagus with dysplasia 08/27/2024 11:45 AM EDT Health Maintenance Due Date Last Done Comments Depression Screening 07/12/2021 07/12/2020 CKD PHOS USE SMARTSET 74580 08/21/2022 10/0 02/2021, 07/12/2020, 03/13/2019, Additional history [...] Additional history exists CKD HGB USE SMARTSET 98202 05/12/202505/12, 05/12/2024, 05/05/2024, Additional history exists DXA Scan 07/05/2025 07/05/2023, 10/19, 11/04/2018, Additional history exists DTaP,Tdap,and Td Vaccines (2 - Td or Tdap) 08/19/2027 08/19/2017, 08/20/2008 Pneumococcal Vaccine: 65+ Years Completed 06/23/2015, 05/14/2013, 04/18/2004 Zoster Vaccines Completed 12/02/2020, 08/15/2020 VITAMIN D LEVEL ONCE IN A LIFETIME-USE SMARTSET# [id number] Completed 04/22/2023, 08/28/2021, 07/14/2015 GARDASIL-HPV IMMUNIZATION SERIES Aged Out No longer eligible based on patient's age to complete this topic Hepatitis B Aged Out No longer eligi ble based on patient's age to complete this topic MENINGOCOCCAL (MENACTRA/MENVEO) Aged Out No longer eligible based on patient's age to complete this topic documented as of this encounter Medical Devices Implanted Type Area Solar Power Installer Device Identifier Shelf Expiration Date Model / Serial / Lot Power Port 8fr Sngl Lumen Plas - [id number] Implanted:Qty: 1 on 02/22/2022 at [facility] CR BARD : PERIPHERAL VASCULAR [id number] 02/15/2023 [id number] / / [id number] documented as of this encounter Advance Directives * Full Code (Latest Code Status on File) Date Activated Date Inactivated Comments 09/03/2007 7:29 AM 09/03/2007 4:02 PM
[2024-05-28] MEDS: ZOLPIDEM TARTRATE 5 MG TAB PO PRN (22:39)
[2024-05-29 08:52] LABS: Basophils # (auto) 0.01 K/uL (0.00-0.20); Basophils % (auto) 0.2 %; Eosinophils # (auto) 0.02 K/uL (0.00-0.50); Eosinophils % (auto) 0.4 %; Hematocrit (blood only) 28.5 % (42.0-52.0); Hemoglobin 8.5 g/dl (14.0-18.0); Immature Granulocytes # (auto) 0.05 K/uL (0.01-0.20); Lymphocytes # (auto) 0.38 K/uL (1.20-3.40); Lymphocytes % (auto) 7.7 %; Mean Corpuscular Hemoglobin 26.5 pg (25.0-34.0); Mean Corpuscular Hgb Conc 29.8 g/dL (32.0-36.0); Mean Corpuscular Volume 88.8 fL (80.0-100.0); Mean Platelet Volume 11.3 fL (9.4-12.4); Monocytes # (auto) 0.48 K/uL (0.11-0.59); Monocytes % (auto) 9.7 %; Platelet Count 129 K/uL (130-400); RDW Coefficient of Variation 17.1 % (11.5-14.5); RDW Standard Deviation 55.4 fL (36.4-46.3); Red Blood Count 3.21 M/uL (4.70-6.10); White Blood Count 4.94 K/ul (4.8-10.8)
[2024-05-29 09:27] LABS: Calcium 7.9 mg/dl (8.6-10.3)
[2024-05-29 09:33] LABS: BUN Creatinine Ratio 23.2 (10-20); Creatinine Clr Calc Pharmacy 20.5 ml/min; Est GFR (African American) 30.1 ml/min
[2024-05-29 13:08] VITALS: BP 108/66; PULSE 74; RESP 18
[2024-05-29 13:16] VITALS: TEMP 97.7
[2024-05-29 13:17] VITALS: O2SAT 95
--- NOTE | 2024-05-29 13:18 | Discharge Summary ---
Discharge Summary Date of Service May 29, 2024 Principal Dx & Hospital Course #1 = Principal Diagnosis (1) Cellulitis of left leg: (2) Acute on chronic blood loss anemia: (3) Acute kidney injury superimposed on CKD: (4) Acute on chronic diastolic CHF (congestive heart failure): Plan Patient was admitted to the hospital concerns for failing outpatient antibiotic therapy for his leg cellulitis. Patient was transition to IV antibiotics. By the following day patient's legs significantly improved it improved mostly due to the fact that the leg had been elevated and he had received some additional diuretics. Further review on pictures on the patient's 's phone indicated that the redness of the leg actually had improved even before admission. However, it was a swelling that had worsened and the wounds on his leg has started to weep. reported that the patient had actually gained 8 pounds over the last few days. They did contact his provider and his diuretic was increased. He started the diuresis the 8 pounds. Here in the hospital was given some diuresis. The redness in his legs completely resolved as the swelling resolved. Therefore suspect that most likely this is not a failure of the oral antibiotics it was that the patient's redness was due to the swelling. Due to the fact that he had diuresed back to his baseline and swelling and significant improved his diuretic dose was decreased this also due to some acute on chronic kidney injury. Patient was also noted to be anemic. Patient has known blood loss anemia. It has been determined to maintain him on his anticoagulation outpatient despite this ongoing blood loss and transfuse him as needed. He did receive a blood transfusion here in the hospital. On the day of discharge his hemoglobin has improved. We had coordinated home health care to continue dressing changes for his leg wound. He can resume oral antibiotics. Recommend compression wraps on his left lower extremity and/or in the boots. This can be coordinated outpatient. He will follow-up with his outpatient providers as previously coordinated as well as previously coordinated for colonoscopy. at bedside at time of discharge Notes For Next Care Provider Consider weekly monitoring of hemoglobin and coordinating outpatient transfusions for hemoglobin less than 7 Medication Changes From Visit Doxycycline added to oral antibiotic regimen Torsemide 50 mg daily Admission HPI Per Admitting Provider History obtained from patient, family, and records. 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 Patient developed delirium during confinement. 2 weeks ago, patient sustained abrasion left lower leg from metallic part of picnic table. Subsequent left lower leg swelling. Patient consulted ER last May 18 for worsening left leg swelling and confusion. Patient discharged on doxycycline course. PCP later changed medication to Keflex and Bactrim because of minimal improvement. Scant bleeding from left leg wound as per patient. Usual occasional hematuria, dark stools attributed to iron without abdominal pain as per patient. No chest pain or unusual SOB. Patient brought to ER by for worsening symptoms. Lowest SBP of 90s documented at the ER. Medical History as above Surgical History : Urologic procedures, cataract surgery, partial colectomy for tubulovillous adenoma, hernia repair, tonsillectomy/adenectomy, bioprosthetic AVR, ectropion surgery Family History : Heart disease, DM, esophageal cancer non-smoker, Personal/Social history : No EtOH intake, retired [employer] employee Admission Exam Per Admitting Provider See history and physical Discharge Exam Constitutional: Alert HEENT: Mucous membranes moist. Lungs: Clear to auscultation, decreased, no wheezes rales or rhonchi CV: S1-S2, regular Abdomen: Soft, nontender, nondistended Extremities: Edema in left lower extremity significantly improved, some wrinkling of the skin, no redness, no warmth, wounds are improving Neuro: No focal deficits Psych: Cooperative, normal mood Updated Medication List Medication Instructions Recorded Confirmed Type esomeprazole magnesium 40 mg 40 mg PO BID 03/25/19 05/28/24 History capsule,delayed release (Nexium) prednisone 5 mg tablet 5 mg PO QAM 03/25/19 05/27/24 History warfarin 5 mg tablet 2.5 mg PO [id number] 03/25/19 05/28/24 History ferrous sulfate 325 mg (65 mg 325 mg PO QAM 04/25/21 05/28/24 History iron) tablet levothyroxine 125 mcg tablet 125 mcg PO DAILYBB 01/23/24 05/28/24 History spironolactone 25 mg tablet 12.5 mg PO QAM 01/23/24 05/27/24 History tamsulosin 0.4 mg capsule 0.4 mg PO QAM 01/23/24 05/27/24 History zolpidem 5 mg tablet 5 mg PO HS PRN restless leg 01/23/24 05/28/24 History syndrome cholecalciferol (vitamin D3) 25 25 mcg PO QAM 03/31/24 05/28/24 History mcg (1,000 unit) tablet (Vitamin D3) cyanocobalamin (vitamin B-12) 1,000 mcg PO QAM 03/31/24 05/28/24 History 1,000 mcg tablet (Vitamin B-12) rosuvastatin 10 mg tablet 10 mg PO QPM 05/18/24 05/28/24 History peg 3350-sod sulf,lpojx-tjr-ixs See Rx Instructions PO .COMPLEX #2 05/19/24 05/28/24 Rx 178.7-7.3-0.5-1.12-0.9 gram oral mL soln (Suflave) cephalexin 500 mg capsule 500 mg PO AMHS 05/27/24 05/27/24 History sulfamethoxazole 800 1 tab PO AMHS 05/27/24 05/27/24 History mg-trimethoprim 160 mg tablet torsemide 100 mg tablet 100 mg PO .DAILY/UD 05/27/24 05/27/24 History doxycycline monohydrate 100 mg 100 mg PO BID 7 days #14 caps 05/29/24 Rx capsule torsemide 100 mg tablet 50 mg (1/2 x 100 mg) PO QAM 30 05/29/24 Rx days #15 tabs Hospital Stay Data Consultations 05/27/24 22:32 ED Decision to Admit Stat Diagnostic Imagining Performed 05/27/24 21:53 US leg [US venous doppler LE LT] Stat 05/28/24 00:15 CT tib/fib LT wo con Stat Reviewed imaging, laboratory and diagnostic studies. Pertinent findings as below. Cultures no significant growth to date Creatinine 2.2 WBCs 4.9 Hemoglobin 8.5, improved Platelets 129 Pending Results Patient Have Any Pending Studies at Discharge: No Discharge Instructions Given to Patient (Per Discharging Provider) Recommend continuing with the compression wrap on lower extremity Consider routine/weekly monitoring of hemoglobin and cording outpatient transfusions until colonoscopy can be performed Home Health Attestation I certify that this patient is under my care and that I, or a physicians graduate assistant athletic trainer working with me, had a face to-face encounter that meets the home health [id number] encounter requirements with this patient. The encounter with the patient was in whole, or in part, for the following medical condition, which is the primary reason for home health care (list medical condition): LLE Cellulitis, CHF I certify that, based on my findings, the following services are medically necessary home health services: My clinical findings support the need for the above services because: Caregiver Instruct Med Mgmt, Safety, Disease Process, Signs to Report Skilled Nsg Assessment Skilled Nsg Assessment Surgical Incision / Wound S/S to Report to Provider Further, I certify that my clinical findings support that this patient is homebound (i.e. absences from home require considerable and taxing effort and are for medical reasons or nondenominational services or infrequently or of short duration when for other reasons) because: Certification for Home Health Services: Based on the above findings, I certify that this patient is confined to the home and needs intermittent senior living care, physical therapy and/or speech therapy or continues to need occupational therapy. The patient is under my care, and I have initiated the establishment of the plan of care. This patient will be followed by a physician who will periodically review the plan of care. Total Time Total Time Spent Total Time Spent (In Minutes): 39
== END 2024-05-29 15:42 | disposition home health service (06) ==
LOC: ED 20:44 → INTOOBSV 05-28 00:22 → EDINP 05-28 00:22 → 3E 05-28 01:42

== ENCOUNTER 2024-08-08 10:57 | Inpatient (IN) ==
--- OUTSIDE RECORDS SUMMARY | 2024-08-08 11:08 | External Medical Summary | Summary of Care ---
Author Name Unknown Organization [facility] [address] [address] Phone [phone] Care Team Providers Care Tool Designer Apprentice Name Role Phone Bell Mcqueen MD Primary Care Provide r Reason for Visit * Reason Comments Dosage Adjustment Via Phone (anticoag Cl inic) Encounter Details Date Type Department Care Team (Late st Contact Info) Description 08/04/2024 6:15 PM EDT Anticoagulation Centralized Clinical Pharmacy Services, Angela Giles [address] [place] [address] [place] [address] [place] [address] Hx of pulmonary embolus*; Longstanding persistent atrial fibrillation (HCC) Allergies Active Allergy Reactions Criticality Noted Date Comments Penicillins Other (Please comment),Rash High Eyes swell Pollen 05/03/2022 Wound Dressing Adhesive Rash 05/02/2023 Patient reported Olanzapine Neuro complications (Please comment) 04/09/2024 documented as of this encounter (statuses as of 08/04/2024) Medications Medication Sig Dispensed Refills Start Date End Date Status CO Q10 100 MG PO TABS 1 tab once daily Active ZOVIRAX 5 % EX OINT 5 times daily as needed. Active Polyethylene Glycol 3350 17 GM Oral Packet Take 1 Packet by mouth in the morning. 14 Each 0 05/08/2016 Active Vitamin B12 500 MCG Oral TabletIndications:B [...] albuterol 120 mL 5 11/21/2022 Active Ipratropium Buchanan 0.02 % Inhalation Solution (Atrovent)Indicatio ns:Moderate persistent asthma without complication Inhale 2.5 mL via nebulizer in the morning and 2.5 mL at noon and 2.5 mL in the evening and 2.5 mL before bedtime. Mix with albuterol solution. 75 mL 12 11/21/2022 Active guaiFENesin ER 600 MG Oral Tablet Extended Release 12 Hour (Humibid LA)Indications:Acut e cough Take 1 Tablet by mouth in the morning and 1 Tablet before bedtime. 40 Tablet 11/04/2023 Active predniSONE 5 MG Oral Tablet (Deltasone) TAKE 1 TABLET BY MOUTH EVERY DAY 90 Tablet 2 12/17/2023 Active Benzonatate 100 MG Oral Capsule (Tessalon Perles) Take 1 Capsule by mouth 3 times a day as needed for Cough. 01/28/2024 Active Ferrous Sulfate 325 (65 Fe) MG Oral Tablet (Feosol)Indications :Iron deficiency anemia secondary to blood loss (chronic) TAKE ONE TABLET BY MOUTH WITH FOOD DAILY 90 Tablet 3 03/23/2024 Active Warfarin Sodium 5 MG Oral Tablet (Coumadin)Indicatio ns:Pulmonary embolism and infarction (HCC) TAKE 0.5-1 TABLETS BY MOUTH EVERY EVENING. OR TAKE INSTRUCTED BY THE [facility] 90 Tablet 3 05/07/2024 Active [...] the morning. 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),Paroxysmal SVT (supraventricular tachycardia) (HCC),Dizziness TAKE 1/2 TABLET BY MOUTH IN THE MORNING 45 Tablet 3 06/11/2024 Active Torsemide 100 MG Oral Tablet (Demadex)Indication s:Cellulitis of left lower leg One daily for 3 days and as needed 10 Tablet 06/17/2024 Active Rosuvastatin Calcium 10 MG Oral Tablet (Crestor) TAKE 1 TABLET BY MOUTH EVERY DAY 90 Tablet 2 07/09/2024 Active Esomeprazole Magnesium 40 MG Oral Capsule Delayed ReleaseIndications: 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 TAKE 1 CAPSULE BY MOUTH TWICE A DAY 180 Capsule 1 07/29/2024 Active Spiriva Respimat 2.5 MCG/ACT Inhalation Aerosol Solution (Tiotropium Buchanan Monohydrate)Indicat ions:Moderate persistent asthma without complication INHALE 2 PUFFS BY MOUTH EVERY DAY 12 g 3 07/28/2024 Active ProAir HFA 108 (90 Base) MCG/ACT Inhalation Aerosol SolutionIndications :Moderate persistent asthma with exacerbation Inhale 2 Puffs by mouth every 4 hours as needed for Wheezing. 8.5 g 2 07/29/2024 Active Fluticasone Propionate 50 MCG/ACT Nasal Suspension (Flonase)Indication s:Acute cough Administer 1 Thorp into each nostril 2 times a day. 16 mL 1 07/29/2024 Active documented as of this encounter (statuses as of 08/04/2024) Active Problems Problem Noted Date Diagnosed Date [...] rinse after steroid. Test performed by Sameer REAL PROPERTY EVALUATOR CPFT Pleural plaque due to asbestos exposure Restrictive lung disease Overview: In Check dial performed to assess inhaler technique: 12/15/19 Name of inhalers Albuterol Pass: Yes at 60 L/min and Advair Pass: Yes at 60 L/min. Encouraged to to take deep breath, use aero chamber, and rinse after steroid. 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) 09/18/2023 Covid-19, Mrna, Lnp-s, Pf, B ivalent, 30 Mcg, IM, 12 yrs and above (ScanScout) 10/09/2022 Pneumococcal Conjugate Vacc, 13 Valent (Prevnar) 06/23/2015 Pneumococcal Polysaccharide PPV23 (Pneumovax) 05/14/2013 Seasonal Influenza, High Dos e, Trivalent, PF, IM (Fluzone HD) 09/25/2017 Seasonal Influenza, PF, 6 M & above, IM , (FluLaval or Fluzone) 09/29/2018 Seasonal Influenza, Quadriva lent Hd (Fluzone Hd) 07/31/2023,10/09/2022,08/17/2021 Seasonal Influenza, Quadriva lent, No Preserve, IM 09/24/2017,09/22/2016,09/12/2015 Seasonal Influenza, Recombin ant, RIV4, PF, (Flublock) 08/15/2020 Seasonal Influenza, Trivalen t, (IIV3), with Preserv, (Fluzone) 08/26/2014,09/09/2013,08/15/2012,09/20,08/02/2010,08/31/2009,08/20/2008 ,08/19/2007,08/20/2006 Seasonal Influenza, Trivalen t, Adjuvanted, 65+ YRS, PF, (Fluad) 09/14/2019 TD, Preservative Free 08/20/2008 TDAP (age 10 [...] as of this encounter Progress Notes * Sarah Larson PHARM Tech - 08/04/2024 2:36 PM EDT Contacts Contact Date/Time Type Contact Phone/Fax 08/04/2024 02:32 PM EDT Phone (Outgoing) Patrick Robles "Rafa" (Self) [phone] (M) Subjective Patient Findings Negatives: Signs/symptoms of bleeding, Change in health, Change in activity, Upcoming invasive procedure, Missed doses, Extra doses, Change in medications, Change in diet/appetite, Bruising Advised patient to contact Anticoagulation Clinic if any unusual bruising or bleeding, recent illness, changes in medication, or questions/concerns. PT/INR results, Coumadin dose instructions, and next PT/INR date communicated as noted by Pharmacist: Yes ELLIE SALAZAR 08/04/2024, 2:36 PM * Tammie Scruggs [facility] - 08/04/2024 2:20 PM EDT Coumadin Clinic (region specific) Objective Current Warfarin Dose As of 08/04/2024 Warfarin maintenance plan: 0 mg every Mon, Fri; 2.5 mg (5 mg x 0.5) all other days INR Result As of 08/04/2024 INR goal: 2.0-3.0 INR used for dosin.2 (08/04/2024) Assessment & Plan Warfarin Plan As of 08/04/2024 Full warfarin instructions: 0 mg every Mon, Fri; 2.5 mg all other days Next INR check: 08/16/2024 Repeat PT/INR in 2 week(s) to check prior to cystoscopy. Will advise for 08/27 procedure at next visit. Weekly dose: not changed Additional Dosing Information: Description Home machine 08/18 - Cystoscopy with Dr. Gardner (pt does not usually have to hold warfarin) 08/27 - Tag And Label Cutter to contact patient with dose instructions as noted. Tammie Scruggs RPh 08/04/2024, 2:20 PM documented in this encounter Plan of Treatment Upcoming Encounters Date Type Department Care Team (Latest Contact Info) Description 4 2:30 PM EDT Hem/Onc Treatment Hematology/Onc o[address]y [address] [phone] Marylou, Chair 1 Hem Onc [address] [place] [address] 4 10:30 AM EDT Laboratory Laboratory [address] [place] [phone] [address] [place] [address] 4 10:30 AM EDT Hem/Onc Treatment Hematology/Onc [address]y [address], [address] [phone] 4 6:30 AM EDT Anticoagulation Centralized Clinical Pharmacy Services, Angela Giles [address] [place] [address] [place] [address] [place] [address] 4 10:30 AM EDT Laboratory Laboratory [address] [place] [phone] [place] [address] 4 10:30 AM EDT Hem/Onc Treatment Hematology/Onc ology Treatment, [place] [facility] [phone] 4 8:40 AM EDT Office Visit Rheumatology [address] [place] [phone] Win Nielsen MD [address] [place] [address] [place] [address] 4 10:30 AM EDT Laboratory Laboratory [address] [place] [phone] [place] [address] 4 1:15 PM EDT Office Visit Hematology/Onc ology [facility] [address] [facility] [phone] Ramon Cadet MD [address] [facility] [place] [address] 4 1:45 PM EDT Hem/Onc Treatment Hematology/Onc ology Treatment, [address] [phone] 4 11:45 AM EDT Hospital Encounter [facility], Endoscopy Suite, [facility], [address] [place] [address] Domingo Garcia DO [address] [place] [address] 4 11:45 AM EDT - 4 1:00 PM EDT Surgery [facility] Endoscopy Suite, [facility], [address] [place] [address] Domingo Garcia DO [address] [place] [address] ESOPHAGOGASTRODUODENOSCOPY (EGD), FLEXIBLE, TRANSORAL, DIAGNOSTIC 11:20 AM EST Office Visit Family [address] [place] [phone] Bell Mcqueen MD [address] [place] [address] [place] [address] Scheduled Procedures Name Priority Associated Diagnoses Date/Ti me ESOPHAGOGASTRODUODENOSCOPY ( EGD), FLEXIBLE, TRANSORAL, DIAGNOSTIC Recall Stark's esophagus with dysplasia 08/27/2024 11:45 AM EDT COLONOSCOPY FLEXIBLE PROXIMA L DIAGNOSTIC Recall Stark's esophagus with dysplasia 08/27/2024 11:45 AM EDT Health Maintenance Due Date Last Done Comments Adult Wellness Visit 2003 Depression Screening 07/12/2021 07/12/2020 CKD PHOS USE SMARTSET 45714 08/21/2022 10/0 02/2021, 07/12/2020, 03/13/2019, Additional history exists *BISPHONATE OR OTHER ACCEPTABLE MEDICATION NEEDED FOR OSTEOPOROSIS (REFER TO SMARTSET #1146) 10/14/2023 Albumin/Creatinine Ratio 04/22/2024 023, 05/24/2022, 03/26/2022, Additional history exists COVID-19 Vaccine ( season) 2024 09/18/2023, 10/09/2022, 12/01/2021, Additional history exists Influenza Vaccine (FLU shot) (#1) 2024 07/31/2023, 10/09/2022, 08/17/2021, Additional history exists Stark's Esophagus Surveilance 02/26/2025 02/26/2022, 02/26/2022, 07/04/2021, Additional history exists DXA Scan 07/05/2025 07/05/2023, 10/19, 11/04/2018, Additional history exists CKD HGB USE SMARTSET 96333 07/28/202507/28, 07/28/2024, 07/22/2024, Additional history exists TSH 07/28/2025 07/28/2024, 03/0 03/2024, 10/08/2023, Additional history exists DTap/Tdap Vaccines (2 - Td or Tdap) 08/19/2027 08/19/2017, 08/20/2008 Pneumococcal Vaccine: 65+ Years Completed 06/23/2015, 05/14/2013, 04/18/2004 Zoster Vaccines Completed 12/02/2020, 08/15/2020 VITAMIN D LEVEL ONCE IN A LIFETIME-USE SMARTSET# [id number] Completed 04/22/2023, 08/28/2021, 07/14/2015 HPV (Gardasil) Vaccine [...] encounter Medical Devices Implanted Type Area Senior Program Manager Device Identifier Shelf Expiration Date Model / Serial / Lot Power Port 8fr Sngl Lumen Plas - [id number] Implanted:Qty: 1 on 02/22/2022 at [facility] : PERIPHERAL VASCULAR [id number] 02/15/2023 [id number] / / [id number] documented as of this encounter Procedures Procedure Name Priority Date/Time Associated Diagnosis Comments OUTSIDE LAB-PT/INR Routine 08/04/2024 documented in this encounter Results * OUTSIDE LAB-PT/INR (08/04/2024) INR-OUTSIDE LAB 2.2 History Per Patient LABORATORY documented in this encounter Visit Diagnoses Diagnosis Hx of pulmonary embolus- Primary Personal history of pulmonary embolism Longstanding persistent atrial fibrillation (HCC) Stark's esophagus with dysplasia Stark's esophagus documented in this encounter Advance Directives * Full Code (Latest Code Status on File) Date Activated Date Inactivated Comments 09/03/2007 7:29 AM 09/03/2007 4:02 PM Care Teams Tool Designer Apprentice Relationship Specialty Start Date End Date Bell Mcqueen MD [address] [place] [address] [place] [phone] PCP - General Family Medicine 06/24/24 documented as of this encounter
--- OUTSIDE RECORDS SUMMARY | 2024-08-08 11:08 | External Medical Summary | Continuity of Care Document ---
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) - 08/05/24 Discharge Disposition: Home or Self Care Attending Physician: MD Pinto Cassandra Referring Physician: MD Pinto Cassandra Allergies, Adverse Reactions, Alerts Substance Criticality Severity Reaction Reaction Severity Status penicillins Swelling Active Medications alfuzosin 10 mg oral tablet, extended release Start: 10/06/20 10:05:00 AM EST, 1 tab, PO, Daily Start Date: 10/06/20 Status: Ordered Carafate 1 g oral tablet Start: 10/06/20 10:08:00 AM EST, 1 tab, PO, qid Start Date: 10/06/20 Status: Ordered Co-Q10 Start: 02/16/19 11:51:00 AM EDT, 200 mg =, PO, Daily Start Date: 02/16/19 Status: Ordered ferrous sulfate Start: 02/16/19 11:50:00 AM EDT, 325 mg =, PO, Daily Start Date: 02/16/19 Status: Ordered furosemide 40 mg oral tablet Start: 07/01/23 2:06:00 PM EDT, 1 tab, PO, Daily Start Date: 07/01/23 Status: Ordered Keflex 500 mg oral capsule Start: 08/04/24 4:15:00 PM EDT, See Instructions, Disp# 4 cap, Refills: 0, Take 4 caps PO for one dose 30 min prior to Mohs appointment, Pharmacy: [facility]/pharmacy #[id number] Start Date: 08/04/24 Status: Ordered levoFLOXacin 750 mg oral tablet Start: 10/16/23 3:40:00 PM EST, 3 each, TAKE 1 TABLET BY MOUTH EVERY OTHER DAY FOR 3 DOSES. UNTIL GONE. Start Date: 10/16/23 Status: Ordered levothyroxine 125 mcg (0.125 mg) oral tablet Start: 07/01/23 2:06:00 PM EDT, 1 tab, PO, Daily Start Date: 07/01/23 Status: Ordered magnesium Start: 02/16/19 11:50:00 AM EDT, magnesium, PO Start Date: 02/16/19 Status: Ordered montelukast 10 mg oral tablet Start: 10/06/20 10:06:00 AM EST, 1 tab, PO, qPM Start Date: 10/06/20 Status: Ordered multivitamin Start: 07/19/22 10:07:00 AM EDT, 1 tab, PO, Daily Start Date: 07/19/22 Status: Ordered NexIUM 40 mg oral delayed release capsule Start: 02/16/19 11:49:00 AM EDT, 1 cap, PO, Daily Start Date: 02/16/19 Status: Ordered pramipexole 1 mg oral tablet TAKE 1 TABLET BY MOUTH EVERYDAY AT BEDTIME Start Date: 07/19/22 Status: Ordered predniSONE 5 mg oral tablet Start: 02/16/19 11:47:00 AM EDT, 1 tab, PO, Daily Start Date: 02/16/19 Status: Ordered ProAir HFA 90 mcg/inh inhalation aerosol Start: 10/06/20 10:07:00 AM EST, 1 puff, inhaled, qid, PRN: as [...] 10 mg oral tablet Start: 02/16/19 11:47:00 AM EDT, 1 tab, PO, Daily Start Date: 02/16/19 Status: Ordered Spiriva 18 mcg inhalation capsule Start: 10/06/20 10:08:00 AM EST, 1 each, inhaled, Daily Start Date: 10/06/20 Status: Ordered spironolactone 25 mg oral tablet Start: 07/01/23 2:06:00 PM EDT, 1 tab, PO, Daily Start Date: 07/01/23 Status: Ordered tamsulosin 0.4 mg oral capsule TAKE 1 CAPSULE BY MOUTH AT BEDTIME Start Date: 01/11/22 Status: Ordered Vitamin B12 Start: 10/06/20 10:08:00 AM EST, 500 mcg =, PO, Daily Start Date: 10/06/20 Status: Ordered warfarin 5 mg oral tablet Start: 02/16/19 11:47:00 AM EDT, 1 tab, PO, Daily, 2.5 mg daily Start Date: 02/16/19 Status: Ordered ZyrTEC 10 mg oral tablet Start: 02/16/19 11:51:00 AM EDT, 1 tab, PO, Daily Start Date: 02/16/19 Status: Ordered Mental Status 08/05/24 Barriers to Learning one year None evide nt Mandatory Health Literacy Documentation Yes Health Literacy Communication Barriers N ever Primary Language Togolese Problem List Condition Confirmation Course Effective Dates Status H ealth Status Informant Anemia Confirmed Active Arthritis Confirmed Active Basal cell carcinoma of nose Confirmed Active Environmental allergies Confirmed Active History of heart valve replacement 1 Confirmed Active High cholesterol Confirmed Active Restless leg Confirmed Active Tobacco user Confirmed Active 1cow Diagnosis Diagnosis Type Effective Dates Health Status Clinical Service Informant Squamous cell carcinoma of preauricular region Discharge Diagnosis 08/05/24 Procedures Procedure Date Related Diagnosis Body Site Status Mohs micrographic surgery 08/05/24 Completed Shave biopsy of skin 1 07/23/24 Co mpleted Mohs micrographic surgery 09/09/23 Completed Shave biopsy 2 07/01/23 Completed Mohs surgery 02/20/22 Completed Shave biopsy of skin 01/11/22 Comp leted Cystoscopy 12/18/21 Completed Punch biopsy of skin 3 10/06/20 Co mpleted Shave biopsy of skin 10/06/20 Comp leted Endoscopy 09/28/20 Completed Mohs micrographic surgery 05/17/20 Completed Mohs micrographic surgery 04/25/20 Completed Shave biopsy of skin 4 04/07/20 Co mpleted Excision 09/01/19 Completed Shave biopsy of skin 08/20/19 Comp leted Mohs micrographic surgery 5 04/28/19 Completed Mohs micrographic surgery 6 04/28/19 Completed Mohs surgery 04/06/19 Completed Shave biopsy of skin x 3 02/16/19 Completed H/O: surgery 2003 Completed Cardiac pacemaker Complet ed H/O: surgery 8 Completed History of hernia repair Completed Knee replacement- left Co mpleted Rotator cuff repair Compl eted 11. right nasal ala (heat cautery) 2. left lateral brow (heat cautery) 3. left preauricular (heat cautery and curettage) 2left infraorbital cheek 3#4 punch 4Chin L Lateral Base of Neck R Postauricular 5left nasal dorsum 6right forehead 7heart valve 8colon recestion x2 Social History Social History Type Response Smoking Status Never smoked cigaret yeny Sex Male Sex Representation Male (finding) Dermatology Outpt Proc * VIOLET Gusman Heather: PERFORM Event Display: Dermatology Outpt Proc Authored Date: DERMATOLOGY OUTPATIENT PROCEDURE NOTE Name: RAISSA CARMEN Patient Number: [id number] : 1935 Date of Service: 08/05/2024 _ Electronic Signature on File Electronically Reviewed/Signed by: Farnaz Gusman Author Signature Dt/Tm:08/05/2024 12:44 PM Electronically Reviewed/Signed by: Carmelita Pinto MD Cosigner Signature Dt/Tm: 08/05/2024 01:00 PM Department of Dermatology * MD Pinto Cassandra: PERFORM, MODIFY, SIGN, VERIFY Event Display: Dermatology Outpt Proc Authored Date: [id number] Patient: RAISSA CARMEN Age: 89 years Sex: Male : 1935 Associated Diagnoses: None Author: MD Pinto Cassandra Visit Information Nurse/MA: Visit Information [facility] number: [id number] [facility] location of surgery: [facility] Pathology accession number: [id number] Mohs Die Maintenance: VIOLET Gusman Heather [facility] Surgeon: MD Pinto Cassandra [facility] Die Maintenance Surgeon: IAN Paulino, Lizzie Ruelas [facility] Referring Physician: MD Pinto Cassandra [facility] Family Physician: MD Romero Philip A . Referral information: Referring Physician: MD Pinto Cassandra. Family physician information: Primary Care Physician: MD Heather, Juancho Tejada Location: [place]. Health Status Allergies: Allergic Reactions (Selected) Severity Not Documented Penicillins- Swelling.. Current medication: (Selected) Prescriptions Prescribed Keflex 500 mg oral capsule: See Instructions, Take 4 caps PO for one dose 30 min prior to [facility] appointment, 4 cap, 0 Refill(s) Documented Medications Documented Carafate 1 g oral tablet: 1 tab, PO, qid Co-Q10: 200 mg, PO, Daily NexIUM 40 mg oral delayed release capsule: 1 cap, PO, Daily ProAir HFA 90 mcg/inh inhalation aerosol: 1 puff, inhaled, qid, PRN: as needed for wheezing Spiriva 18 mcg inhalation capsule: 1 each, inhaled, Daily Vitamin B12: 500 mcg, PO, Daily ZyrTEC 10 mg oral tablet: 1 tab, PO, Daily alfuzosin 10 mg oral tablet, extended release: 1 tab, PO, Daily ferrous sulfate: 325 mg, PO, Daily furosemide 40 mg oral tablet: 1 tab, PO, Daily levoFLOXacin 750 mg oral tablet: 3 each, TAKE 1 TABLET BY MOUTH EVERY OTHER DAY FOR 3 DOSES. UNTIL GONE. levothyroxine 125 mcg (0.125 mg) oral tablet: 1 tab, PO, Daily magnesium: PO montelukast 10 mg oral tablet: 1 tab, PO, qPM multivitamin: 1 tab, PO, Daily pramipexole 1 mg oral tablet: TAKE 1 TABLET BY MOUTH EVERYDAY AT BEDTIME predniSONE 5 mg oral tablet: 1 tab, PO, Daily rOPINIRole 1 mg oral tablet: TAKE 1 TABLET BY MOUTH 1-3 HOURS BEFORE BEDTIME WITH FOOD FOR RESTLESSLEGS, MAY REPEAT DOSE IF NEED risedronate 150 mg oral tablet: TAKE ONE TABLET BY MOUTH ONCE A MONTH rosuvastatin 10 mg oral tablet: 1 tab, PO, Daily spironolactone 25 mg oral tablet: 1 tab, PO, Daily tamsulosin 0.4 mg oral capsule: TAKE 1 CAPSULE BY MOUTH AT BEDTIME warfarin 5 mg oral tablet: 1 tab, PO, Daily, 2.5 mg daily. Problem list: Medical Restless leg / SNOMED CT 59009869 / Confirmed Tobacco user / SNOMED CT 718297918 / Confirmed High cholesterol / SNOMED CT 80186661 / Confirmed Arthritis / SNOMED CT 3848649 / Confirmed Anemia / SNOMED CT 761918892 / Confirmed Environmental allergies / SNOMED CT 0913205788 / Confirmed History of heart valve replacement / SNOMED CT 513270279 / Confirmed Basal cell carcinoma of nose / SNOMED CT 1043054823 / Confirmed All Problems Restless leg / SNOMED CT 55447493 / Confirmed Tobacco user / SNOMED CT 059405218 / Confirmed High cholesterol / SNOMED CT 90017847 / Confirmed Arthritis / SNOMED CT 8973650 / Confirmed Anemia / SNOMED CT 770160673 / Confirmed Environmental allergies / SNOMED CT 8090178114 / Confirmed History of heart valve replacement / SNOMED CT 597627236 / Confirmed Basal cell carcinoma of nose / SNOMED CT 2988373983 / Confirmed. Mohs Surgical Information Operation: Surgical excision of cutaneous malignancy using continuous microscopic control (Mohs Micrographic Surgery). Diagnosis: Squamous cell carcinoma of preauricular region (KEK63-LC C44.329, Discharge, Medical), Well-differentiated. Nurse/MA: Surgical Information Mohs Surgical Diagnosis: Infiltrative, Well-differentiated Mohs Surgical Location: Other: left preauricular Mohs Previous Treatment: None Mohs Anesthetic: 0.5% lidocaine with epinephrine and bicarbonate Mohs Preop Size of Tumor Length: 1.5 cm Mohs Preop Size of Tumor Width: 0.9 cm Mohs Stage 1 Specimen: 1 Mohs Stage 2 Specimen: 1 Mohs Final defect size Length: 2.3 cm Mohs Final defect size Width: 2.1 cm Mohs Size of repair: rotation/advancement flap, 8.9 cm2 Mohs Type of Suture: Prolene 6-0, Monocryl 5-0 . Indications for Mohs surgery: Large size, High risk location, Ill-defined margins. Appropriate Use Criteria (AUC): 8 . Preoperative medications: 1 gram cephalexin. Clinical description: pink centrally ulcerated plaque . Adenopathy: No parotid masses; no preauricular, postauricular, submental, cervical or supraclavicular lymphadenopathy. SCC Staging: AJCC 8th Ed. SCC Tumor Staging: T1. [facility] Tumor Staging: T1. Procedure: Informed consent was obtained which included explanation of the Mohs surgery procedure, reasons why Mohs surgery was preferable to alternatives such as standard excision, and wound management, associated risks, scarring, and potential need for further surgery. The patient verbalized understanding and all questions were answered. The biopsy site/lesion was outlined, and the location was re-confirmed by the patient using a hand held mirror. The operative site was then prepped with antiseptic solution, draped, and anesthetized with a infiltration of local anesthetic. Following this, the clinically apparent portion of the tumor was surgically removed. A thin layer of tissue was then surgically excised around the tumor. Hemostasis was obtained with electrocautery, or aluminum chloride, and a pressure dressing was placed on the wound. Bipolar forceps were used in patients with an implanted electrical device. A reference map was drawn and the excised tissue was cut into an appropriate number of sections for examination in the Mohs micrographic laboratory. Edges of each tissue section were dyed with tissue marking ink inorder to achieve precise orientation. These tissue sections were then processed and stained to produce slides for evaluation of the entire peripheral and deep margins of the excised tissue. The prepared microscopic sections were then examined by the Mohs surgeon. Any areas of residual tumor on the tissue margin were indicated on the reference map, pinpointing the location in which further tissue excision was necessary. For all additional Mohs stages: The operative site was draped, and additional local anesthetic was infiltrated as needed. A layer of tissue was then excised around the areas corresponding to the reference map indicating residual tumor in the patient. Hemostasis was obtained as above. A reference map was drawn and the excised tissue was cut into an appropriate number of sections for examination in Mohs laboratory. The tissue was inked and processed as above. The prepared microscopic sections were then examined by the Mohs surgeon. If applicable, any areas of residual tumor on the tissue margin were indicated on the reference map, pinpointing the location in which further tissue excision was necessary. This process was repeated until all surgical margins were felt to be free of tumor. Stages: Stage 1 included multiple microscopic sections of 1 tissue specimens, Stage 2 included multiple microscopic sections of 1 tissue specimens, At this point, no further tumor cells were identified. Tumor eradication was complete after a total of 2 stage(s) of surgery. Histology: Stage: 1. Depth of Invasion: Dermis, Cartilage (tragus). Scar tissue: Absent. Procedural Time Out: Patient identified with name and date of , Procedure verified, Correct site, if applicable. Anesthetic: 0.5% lidocaine with epinephrine and bicarbonate. Total volume of anesthetic administered: 12 ml. Wound management: A discussion was held with the patient about reconstruction options and wound healing, addressing functional and cosmetic concerns along with benefits and potential risks of each approach., This wound was reconstructed with a rotation flap. This form of reconstruction was requiredto restore function, eliminate space, relieve tension, prevent deformity, and approximate the edges of the defect, which extended to the deep subcutaneous tissues. The surgical defect and the donor site were prepped and draped with sterile towels to ensure a sterile field. Supplemental anesthesia was administered. A curvilinear rotation flap was designed along relaxed skin tension lines and to take advantage of tissue reservoirs. The flap was incised to the subcutaneous fat. The beveled edges of the wound were excised to 90 degrees. Undermining was performed widely in all directions in the subcutaneous plane, and hemostasis was obtained with electrocoagulation. The flap was rotated into the surgical defect and sutured into place with absorbable buried sutures in the subcutaneous layer. Redundant tissue was trimmed as standing cones or [place] triangles. Hemostasis was obtained with spot electrocoagulation and the cutaneous portion of the repair was completed with superficial cutaneous sutures. The reconstructed area was then cleansed and a sterile pressure dressing was placed. The patient was instructed in postoperative care. . Procedure Tolerated: Well, Without complications, Estimated blood loss 10 ml. Postoperative follow up: 1 week, Suture removal. Photo: . 2024-08-05 08:47:13 2024-08-05 11:07:17 2024-08-05 11:51:57 Mohs Surgical Information Second Site Nurse/MA: Surgical Information 2nd Site . Electronic Signature on File CC: Juancho Romero MD [address] [place] [id number] * Electronically Reviewed/Signed by: Carmelita Pinto MD Author Signature Dt/Tm:08/05/2024 12:48 PM Department of Dermatology CS Patient Care team information Care Team Personnel Name: MD Romero Philip A Position: Referring DIRECT Member Role: Primary Care Provider Address: [address] [place] [address] [place] Care Team Related Persons Name: Pam CARMEN
--- OUTSIDE RECORDS SUMMARY | 2024-08-08 11:08 | External Medical Summary ---
Author Name Unknown Address Unknown Organization K01:[facility] [address] [facility] [address] Laboratory Report Ordering Provider Test Date Status ADRIENNE SALCIDO 08/04/2024 10:09:29 Final Observation Date Value Abnormality Reference (Units ) Status SYNC LEUKOCYTES IN BLOOD BY AUTOMATED COUNT 08/04/2024 10:09:29 4.71 4.00-10.80 (K/uL) Final Segs 08/04/2024 10:09:29 68.0 40.0-75.0 (%) Final Lymphs % 08/04/2024 10:09:29 17.6 Below low normal 18.0-42.0 (%) Final Monos 08/04/2024 10:09:29 10.8 1.0-11.0 (%) Final Eosinophils 08/04/2024 10:09:29 1.7 0.0-6.0 (%) Final Basos 08/04/2024 10:09:29 1.3 0.0-2.0 (%) Final Immature Granulocyte, Percent 08/04/2024 10:09:29 0.6 0.0-2.0 (%) Final Absolute Segs 08/04/2024 10:09:29 3.20 1.80-7.70 (K/uL) Final Lymphs, absolute 08/04/2024 10:09:29 0.83 Below low normal 1.00-4.80 (K/ul) Final Monos, Abs 08/04/2024 10:09:29 0.51 0.00-1.10 (K/uL) Final Eos, Abs 08/04/2024 10:09:29 0.08 0.00-0.70 (K/uL) Final Basos, Abs 08/04/2024 10:09:29 0.06 0.00-0.20 (K/uL) Final Immature Granulocytes, Number 08/04/2024 10:09:29 0.03 0.00-0.20 (K/uL) Final Performing Location [facility] - [address] [place] [address]
--- OUTSIDE RECORDS SUMMARY | 2024-08-08 11:08 | External Medical Summary | Summary of Care ---
Author Name Unknown Organization [facility] Address [address] [place] [address] Phone [phone] Care Team Providers Care Civil Drafter Name Role Phone Bell Mcqueen MD Primary Care Provide r Encounter Details Date Type Department Care Team (Late st Contact Info) Description 08/04/2024 Result Scan Unspecified Department <No scans attached> [...] albuterol 120 mL 5 11/21/2022 Active Ipratropium [place] 0.02 % Inhalation Solution (Atrovent)Indicatio ns:Moderate persistent [...] EVERY EVENING. OR TAKE INSTRUCTED BY [facility] 90 Tablet 3 05/07/2024 Active [...] Respimat 2.5 MCG/ACT Inhalation Aerosol Solution (Tiotropium [place] Monohydrate)Indicat ions:Moderate persistent asthma without complication INHALE 2 PUFFS BY MOUTH EVERY DAY 12 g 3 07/28/2024 Active ProAir HFA 108 (90 Base) MCG/ACT Inhalation Aerosol SolutionIndications :Moderate persistent asthma with exacerbation Inhale 2 Puffs by mouth every 4 hours as needed for Wheezing. 8.5 g 2 07/29/2024 Active Fluticasone Propionate 50 MCG/ACT Nasal Suspension (Flonase)Indication s:Acute cough Administer 1 [place] into each nostril 2 times a day. [...] after steroid. Test performed by Sameer [employer] SPRINKLER INSTALLER CPFT Pleural plaque due to asbestos exposure Restrictive lung disease Overview: In Check dial performed to assess inhaler technique: 12/15/19 Name of inhalers Albuterol Pass: Yes at 60 L/min and Advair Pass: Yes at 60 L/min. Encouraged to to take deep breath, use aero chamber, and rinse after steroid. 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 Overview: Matteson C0-M6 documented as of this encounter (statuses [...] mRNA, LNP-s, No Pre serve, 2-Dose Series (AbilTo) 12/01/2021,01/16/2021,12/26/2020 COVID-19, LNP-s, No Preserve , Ozzy-sucrose, Ages 12+ (AbilTo) 12/01/2021 COVID-19, MRNA-LNP, 23-24, P F, 30 [...] Care Team (Latest Contact Info) Description 4 6:15 PM EDT Anticoagulation Centralized Clinical Pharmacy Services, Angela [address] [place] [address] [place] [address] Hx of pulmonary embolus*; Longstanding persistent atrial fibrillation (HCC) 4 2:30 PM EDT Hem/Onc Treatment Hematology/Onc ology Treatment, [address] [place] [phone] Marylou, Chair 1 Hem Onc [address] [place] [address] 4 10:30 AM EDT Laboratory Laboratory [address] [place] [phone] [address] [place] [address] 4 10:30 AM EDT Hem/Onc Treatment Hematology/Onc ology Treatment, [address] [place] [phone] 4 6:30 AM EDT Anticoagulation Centralized Clinical Pharmacy Services, Angela Giles [address] [place] [address] [place] [address] [place] [address] 4 10:30 AM EDT Laboratory Laboratory [address] [place] [phone] [place] [address] 4 10:30 AM EDT Hem/Onc Treatment Hematology/Onc ology Treatment, [place] [address] [place] [address] 4 8:40 AM EDT Office Visit Rheumatology [address] [place] [phone] Win Nielsen MD [address] [place] [address] [place] [address] 4 10:30 AM EDT Laboratory Laboratory [address] [place] [phone] [address] [place] [address] 4 1:15 PM EDT Office Visit Hematology/Onc ology [facility] [address] [facility] [place] [phone] Ramon Cadet MD [address] [facility] [place] [address] 4 1:45 PM EDT Hem/Onc Treatment Hematology/Onc ology Treatment, [address] [phone] 4 11:45 AM EDT Hospital Encounter ENDO [facility], Endoscopy Suite, [facility] 1, [address] [place] [address] Domingo Garcia DO [address] [place] [address] 4 11:45 AM EDT - 4 1:00 PM EDT Surgery ENDO [facility], Endoscopy Suite, [facility]AM 1, [address] [place] [address] Domingo Garcia DO [address] [place] [address] ESOPHAGOGASTRODUODENOSCOPY (EGD), FLEXIBLE, TRANSORAL, DIAGNOSTIC 11:20 AM EST Office Visit Family [address] [place] [phone] Bell Mcqueen MD [address] [place] [address] [place] [address] Scheduled Procedures Name Priority Associated Diagnoses Date/Ti me ESOPHAGOGASTRODUODENOSCOPY ( EGD), FLEXIBLE, TRANSORAL, DIAGNOSTIC Recall Stark's esophagus with dysplasia 08/27/2024 11:45 AM EDT COLONOSCOPY FLEXIBLE PROXIMA L DIAGNOSTIC Recall Stark's esophagus with dysplasia 08/27/2024 11:45 AM EDT Health Maintenance Due Date Last Done Comments Adult Wellness Visit 2003 Depression Screening 07/12/2021 07/12/2020 CKD PHOS USE SMARTSET 32888 08/21/2022 100 02/2021, 07/12/2020, 03/13/2019, Additional history [...] Additional history exists CKD HGB USE SMARTSET 70768 07/28/202507/28, 07/28/2024, 07/22/2024, Additional history exists TSH 07/28/2025 07/28/2024, 03/0 03/2024, 10/08/2023, Additional history exists DTap/Tdap Vaccines (2 - Td or Tdap) 08/19/2027 08/19/2017, 08/20/2008 Pneumococcal Vaccine: 65+ Years Completed 06/23/2015, 05/14/2013, 04/18/2004 Zoster Vaccines Completed 12/02/2020, 08/15/2020 VITAMIN D LEVEL ONCE IN A LIFETIME-USE SMARTSET# [id number] Completed 04/22/2023, 08/28/2021, 07/14/2015 HPV (Gardasil) Vaccine Aged Out No lo nger eligible based on patient's age to complete this topic Hepatitis B Vaccine Aged Out No longe r eligible based on patient's age to complete this topic MENINGOCOCCAL (MENACTRA/MENVEO) Aged Out No longer eligible based on patient's age to complete this topic documented as of this encounter Medical Devices Implanted Type [employer] Spacelift Device Identifier Shelf Expiration Date Model / Serial / Lot Power Port 8fr Sngl Lumen Plas - [id number] Implanted:Qty: 1 on 02/22/2022 at [facility] BARD : PERIPHERAL VASCULAR [id number] 02/15/2023 [id number] / / [id number] documented as of this encounter Procedures Procedure Name Priority Date/Time Associated Diagnosis Comments OUTSIDE LAB RESULTS 08/04/2024 documented in this encounter Results * OUTSIDE LAB RESULTS (08/04/2024) 08/04/2024 No Physician Data Unknown LABORATORY documented in this encounter Advance Directives * Full Code (Latest Code Status on File) Date Activated Date Inactivated Comments 09/03/2007 7:29 AM 09/03/2007 4:02 PM Care Teams Civil Drafter Relationship Specialty Start Date End Date Bell Mcqueen MD [address] [place] [address] [place] [phone] PCP - General Family Medicine 06/24/24 documented as of this encounter
--- OUTSIDE RECORDS SUMMARY | 2024-08-08 11:08 | External Medical Summary | Summary of Care ---
Author Name Unknown Organization [facility] Address [address] [place] [address] Phone [phone] Care Team Providers Care Lead Sustainability Specialist Name Role Phone Bell Mcqueen MD Primary Care Provide r Reason for Visit * Reason Comments Medication Administration Retacrit * Episode Based Medications (Routine) - Authorized Specialty Diagnoses / Procedures Referred By Contac t Referred To Contact Diagnoses Carcinoma of bladder (HCC) Iron deficiency anemia, unspecified iron deficiency anemia type Chronic kidney disease, stage 3b (HCC) Anemia due to stage 3b chronic kidney disease (HCC) Procedures TX INJ RETACRIT NON-ESRD USE TX THERAPEUTIC PROPHYLACTIC/DX INJECTION SUBQ/IM TX EPOETIN IVAN, NON-ESRD Ludwig Louis MD [address] [facility] [place] [address] Anc Hem/Onc Dony Hickman DEPT CLOSED - 10/01/23 [address] [place] [phone] Referral ID Status Reason Start Date Expiration Date V isits Requested Visits Authorized [id number] Authorized 07/23/2024 10/15/[phone] Encounter Details Date Type Department Care Team (Latest Contact Info) Description 08/05/2024 2:30 PM EDT Hem/Onc Treatment Hematology/Oncology Treatment, [place] [address] [place] [phone] Marylou, Chair 1 Hem Onc Scenery [address] [place] [address] Carcinoma of bladder (HCC)*; Iron deficiency anemia, unspecified iron deficiency anemia type; Chronic kidney disease, stage 3b (HCC); Anemia due to stage 3b chronic kidney disease (HCC) Allergies Active Allergy Reactions Criticality Noted Date Comments Penicillins Other (Please comment),Rash High Eyes swell Pollen 05/03/2022 Wound Dressing Adhesive Rash 05/02/2023 Patient reported Olanzapine Neuro complications (Please comment) 04/09/2024 documented as of this encounter (statuses as of 08/05/2024) Medications Medication Sig Dispensed Refills Start Date [...] 120 mL 5 11/21/2022 Active Ipratropium [place] 0.02 % Inhalation Solution (Atrovent)Indicatio ns:Moderate persistent [...] EVERY EVENING. OR TAKE INSTRUCTED BY [facility] 90 Tablet 3 05/07/2024 Active [...] 2.5 MCG/ACT Inhalation Aerosol Solution (Tiotropium [place] Monohydrate)Indicat ions:Moderate persistent asthma without complication INHALE 2 PUFFS BY MOUTH EVERY DAY 12 g 3 07/28/2024 Active ProAir HFA 108 (90 Base) MCG/ACT Inhalation Aerosol SolutionIndications :Moderate persistent asthma with exacerbation Inhale 2 Puffs by mouth every 4 hours as needed for Wheezing. 8.5 g 2 07/29/2024 Active Fluticasone Propionate 50 MCG/ACT Nasal Suspension (Flonase)Indication s:Acute cough Administer 1 [place] into each nostril 2 times a day. 16 mL 1 07/29/2024 Active documented as of this encounter (statuses as of 08/05/2024) Active Problems Problem Noted Date Diagnosed Date [...] rinse after steroid. Test performed by Sameer UNIT MANAGER CONVENIENCE STORES CPFT Pleural plaque due to asbestos exposure Restrictive lung disease Overview: In Check dial performed to assess inhaler technique: 12/15/19 Name of inhalers Albuterol Pass: Yes at 60 L/min and Advair Pass: Yes at 60 L/min. Encouraged to to take deep breath, use aero chamber, and rinse after steroid. 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 [...] as of this encounter (statuses as of 08/05/2024) Immunizations Name Administration Dates Next Due COVID-19 mRNA, LNP-s, No Pre serve, 2-Dose Series (Manomasa) 12/01/2021,01/16/2021,12/26/2020 COVID-19, LNP-s, No Preserve , Ozzy-sucrose, Ages 12+ (Manomasa) 12/01/2021 COVID-19, MRNA-LNP, 23-24, P F, 30 MCG/0.3 mL, 12 YRS AND ABOVE, IM ([facility]) 09/18/2023 Covid-19, Mrna, Lnp-s, Pf, B ivalent, 30 Mcg, IM, 12 yrs and above (Manomasa) 10/09/2022 Pneumococcal Conjugate Vacc, 13 Valent (Prevnar) [...] Sign Reading Time Taken Comments Blood Pressure 110/75 08/05/2024 1:30 PM EDT Pulse - - Temperature - - Respiratory Rate - - Oxygen Saturation - - Inhaled Oxygen Concentration - - Weight - - Height - - Body Mass Index - - documented in this encounter Nursing Notes * Leana Sears LPN - 08/05/2024 2:02 PM EDT Pt arrived for Retacrit injection. Hgb 9.0. BP WNL. Administered in [place]ON[place]. Pt tolerated well. To return in one week. Discharged in stable condition. documented in this encounter Plan of Treatment Upcoming Encounters Date Type Department Care Team (Latest Contact Info) Description 4 10:30 AM EDT Laboratory Laboratory [address] [place] [phone] [place] [address] 4 10:30 AM EDT Hem/Onc Treatment Hematology/Onc ology Treatment, [address], [place] [phone] 4 6:30 AM EDT Anticoagulation Centralized Clinical Pharmacy Services, [facility] [address] [place] [address] [place] [address] [facility], [address] [place] [address] 4 10:30 AM EDT Laboratory Laboratory [address] [place] [phone] [place] [address] 4 10:30 AM EDT Hem/Onc Treatment Hematology/Onc ology Treatment, [address], [place] [phone] 4 8:40 AM EDT Office Visit Rheumatology [address] [place] [phone] Win Nielsen MD [address] [place] [address] [place] [address] 4 10:30 AM EDT Laboratory Laboratory [address] [place] [phone] [place] [address] 4 1:15 PM EDT Office Visit Hematology/Onc ology [facility] [address] [facility] [place], [place] [phone] Ramon Cad[facility] [address] 4 1:45 PM EDT Hem/Onc Treatment Hematology/Onc ology Treatment, [place] 200 [place] [phone] 4 11:45 AM EDT Hospital Encounter [facility]O [facility], Endoscopy Suite, HFAM 1, [address] [place] [address] Domingo Garcia DO [address] [place] [address] 4 11:45 AM EDT - 4 1:00 PM EDT Surgery [facility], Endoscopy Suite, HFAM 1, [address] [place] [address] Domingo Garcia DO [address] [place] [address] ESOPHAGOGASTRODUODENOSCOPY (EGD), FLEXIBLE, TRANSORAL, DIAGNOSTIC 5 11:20 AM EST Office Visit Family [address] [place] [address] Bell Mcqueen MD [address] [place] [address] [place] [address] Scheduled Procedures Name Priority Associated Diagnoses Date/Ti me ESOPHAGOGASTRODUODENOSCOPY ( EGD), FLEXIBLE, TRANSORAL, DIAGNOSTIC Recall Stark's esophagus with dysplasia 08/27/2024 11:45 AM EDT COLONOSCOPY FLEXIBLE PROXIMA L DIAGNOSTIC Recall Stark's esophagus with dysplasia 08/27/2024 11:45 AM EDT Health Maintenance Due Date Last Done Comments Adult Wellness Visit 2003 Depression Screening 07/12/2021 07/12/2020 CKD PHOS USE SMARTSET 41989 08/21/2022 10/0 02/2021, 07/12/2020, 03/13/2019, Additional history [...] 07/05/2025 07/05/2023, 10/19, 11/04/2018, Additional history exists TSH 07/28/2025 07/28/2024, 03/0 03/2024, 10/08/2023, Additional history exists CKD HGB USE SMARTSET 74504 08/04/202508/04, 08/04/2024, 07/28/2024, Additional history exists DTap/Tdap Vaccines (2 - Td or Tdap) 08/19/2027 08/19/2017, 08/20/2008 Pneumococcal Vaccine: 65+ Years Completed 06/23/2015, 05/14/2013, 04/18/2004 Zoster Vaccines Completed 12/02/2020, 08/15/2020 VITAMIN D LEVEL ONCE IN A LIFETIME-USE SMARTSET# [id number] Completed 04/22/2023, 08/28/2021, 07/14/2015 HPV (Gardasil) Vaccine Aged Out No lo nger eligible based on patient's age to complete this topic Hepatitis B Vaccine Aged Out No longe r eligible based on patient's age to complete this topic MENINGOCOCCAL (MENACTRA/MENVEO) Aged Out No longer eligible based on patient's age to complete this topic documented as of this encounter Medical Devices Implanted Type Area Hide And Skin Classer Device Identifier Shelf Expiration Date Model / Serial / Lot Power Port 8fr Sngl Lumen Plas - [id number] Implanted:Qty: 1 on 02/22/2022 at [facility] CR BARD : PERIPHERAL VASCULAR [id number] 02/15/2023 [id number] / / [id number] documented as of this encounter Visit Diagnoses Diagnosis Carcinoma of bladder (HCC)- Primary Malignant neoplasm of bladder, part unspecified Iron deficiency anemia, unspecified iron deficiency anemia type Chronic kidney disease, stage 3b (HCC) 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 Stark's esophagus documented in this encounter Administered Medications Inactive Administered Medications - up to 3 most recent administrations Medication Order MAR Action Action Date Dose Rate Site Epoetin Ivan-epbx (Retacrit) 28848 UNIT/ML inj 60,000 Units 60,000 Units, Subcutaneous, ONCE, On Sat08/05/24 at 1400, For 1 dose Given 08/05/2024 1:32 PM EDT 60,000 Units Arm Left Upper documented in this encounter Advance Directives * Full Code (Latest Code Status on File) Date Activated Date Inactivated Comments 09/03/2007 7:29 AM 09/03/2007 4:02 PM Care Teams Lead Sustainability Specialist Relationship Specialty Start Date End Date Bell Mcqueen MD [address] [place] [address] [place] [address] PCP - General Family Medicine 06/24/24 documented as of this encounter
--- OUTSIDE RECORDS SUMMARY | 2024-08-08 11:08 | External Medical Summary ---
Author Name Unknown Address Unknown Organization [id number]:[facility] N [facility] [address] Laboratory Report Ordering Provider Test Date Status ADRIENNE SALCIDO 08/04/2024 10:09:29 Final Observation Date Value Abnormality Reference (Units ) Status WBC, Total 08/04/2024 10:09:29 4.71 4.00-10.80 (K/uL) Final RBC 08/04/2024 10:09:29 3.36 4.50-5.25 (M/uL) Final Hemoglobin 08/04/2024 10:09:29 9.0 Below low normal 14.0-16.8 (g/dL) Final HCT 08/04/2024 10:09:29 32.6 Below low normal 40.0-48.4 (%) Final MCV 08/04/2024 10:09:29 97.0 82.0-99.5 (fL) Final MCH 08/04/2024 10:09:29 26.8 27.0-34.0 (pg) Final MCHC 08/04/2024 10:09:29 27.6 32.0-36.0 (g/dL) Final RDW 08/04/2024 10:09:29 17.7 11.5-15.5 (%) Final Platelets 08/04/2024 10:09:29 104 Below low normal 140-400 (K/uL) Final MPV 08/04/2024 10:09:29 12.7 6.6-11.1 (fL) Final Nucleated erythrocytes/100 leukocytes [Ratio] in Blood by Automated count 08/04/2024 10:09:29 0 <=0 (/100 WBCs) Final Performing Location [facility] - [address] [facility] [address]
--- OUTSIDE RECORDS SUMMARY | 2024-08-08 11:08 | External Medical Summary | Summary of Care ---
Author Name Unknown Organization [facility] Address [address] [place] [address] Phone [phone] Care Team Providers Care Salon Supervisor Name Role Phone Bell Mcqueen MD Primary Care Provide r Reason for Visit * Reason Onset Date Comments Medical Records Request 08/07/2024 [place] Encounter Details Date Type Department Care Team (Late st Contact Info) Description 08/07/2024 Telephone Family Medicine [address] [phone] Bell Mcqueen MD [address] [place] [address] [place], [place] [phone] Medical Records Request ([place]) Allergies Active Allergy Reactions Criticality Noted Date Comments Penicillins Other (Please comment),Rash High Eyes swell Pollen 05/03/2022 Wound Dressing Adhesive Rash 05/02/2023 Patient reported Olanzapine Neuro complications (Please comment) 04/09/2024 documented as of this encounter (statuses as of 08/07/2024) Medications Medication Sig Dispensed Refills Start Date [...] albuterol 120 mL 5 11/21/2022 Active Ipratropium [place] 0.02 % Inhalation Solution (Atrovent)Indicatio ns:Moderate persistent [...] TAKE INSTRUCTED BY THE [facility]IN [facility] 90 Tablet 3 [...] Respimat 2.5 MCG/ACT Inhalation Aerosol Solution (Tiotropium [place] Monohydrate)Indicat ions:Moderate persistent asthma without complication INHALE 2 PUFFS BY MOUTH EVERY DAY 12 g 3 07/28/2024 Active ProAir HFA 108 (90 Base) MCG/ACT Inhalation Aerosol SolutionIndications :Moderate persistent asthma with exacerbation Inhale 2 Puffs by mouth every 4 hours as needed for Wheezing. 8.5 g 2 07/29/2024 Active Fluticasone Propionate 50 MCG/ACT Nasal Suspension (Flonase)Indication s:Acute cough Administer 1 [place] into each nostril 2 times a day. 16 mL 1 07/29/2024 Active documented as of this encounter (statuses as of 08/07/2024) Active Problems Problem Noted Date Diagnosed Date [...] rinse after steroid. Test performed by Sameer VARNISH FILTERER CPFT Pleural plaque due to asbestos exposure Restrictive lung disease Overview: In Check dial performed to assess inhaler technique: 12/15/19 Name of inhalers Albuterol Pass: Yes at 60 L/min and Advair Pass: Yes at 60 L/min. Encouraged to to take deep breath, use aero chamber, and rinse after steroid. Test performed by Sameer VARNISH FILTERER CPFT Hx of pulmonary embolus 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 Overview: [place] C0-M6 documented as of this encounter (statuses as of 08/07/2024) Resolved Problems Problem Noted Date Diagnosed Date [...] Malignant neoplasm of prostate 09/23/2008 03/27/2018 Overview: [place] grade 3 Atrial flutter 09/02/2007 10/16/2007 Herpes [...] as of this encounter (statuses as of 08/07/2024) Immunizations Name Administration Dates Next Due COVID-19 mRNA, LNP-s, No Pre serve, 2-Dose Series (Revolver) 12/01/2021,01/16/2021,12/26/2020 COVID-19, LNP-s, No Preserve , Ozzy-sucrose, Ages 12+ (Pfizer) 12/01/2021 COVID-19, MRNA-LNP, 23-24, P F, 30 MCG/0.3 mL, 12 YRS AND ABOVE, IM [facility] 09/18/2023 Covid-19, Mrna, Lnp-s, Pf, B [...] encounter Miscellaneous Notes * Telephone Encounter - Vic Gage OSA - 08/07/2024 9:50 AM EDT Recd request for records 08/07/2024 from [employer]. Auth was sent to HIM LH [id number] on 08/07/2024. To check status of records, please call HIM directly at [phone]. documented in this encounter Plan of Treatment Upcoming Encounters Date Type Department Care Team (Latest Contact Info) Description 4 10:30 AM EDT Laboratory Laboratory [address] [place] [phone] [address] [place] [address] 4 10:30 AM EDT Hem/Onc Treatment Hematology/Onc ology Treatment, [employer] [address] [employer], [place] [phone] 4 6:30 AM EDT Anticoagulation Centralized Clinical Pharmacy Services, Angela Giles [address] [place] [address] [place] [address] [place] [address] 4 10:30 AM EDT Laboratory Laboratory [address] [place] [phone] [place] [address] 4 10:30 AM EDT Hem/Onc Treatment Hematology/Onc ology [address] [address] 4 8:40 AM EDT Office Visit Rheumatology [address] [place] [phone] Win Nielsen MD [facility] [place] [address] 4 10:30 AM EDT Laboratory Laboratory [address] [place] [phone] [facility] Lab [address] [place] [address] 4 1:15 PM EDT Office Visit Hematology[facility] [phone] Ramon Cadet [facility] [address] 4 1:45 PM EDT Hem/Onc Treatment Hematology/Onc ology [address] [phone] 4 11:45 AM EDT Hospital Encounter [facility], Endoscopy Suite, HFAM 1, [address] [place] [facility] [place] [address] Domingo Garcia DO [address] [facility] [place] [address] 4 11:45 AM EDT - 4 1:00 PM EDT Surgery [facility]O [facility], Endoscopy Suite, [facility]AM 1, [address] [facility] [place] [address] Domingo Garcia DO [address] [facility] [place] [address] ESOPHAGOGASTRODUODENOSCOPY (EGD), FLEXIBLE, TRANSORAL, DIAGNOSTIC 11:20 AM EST Office Visit Family [address] [place] [address] Bell Mcqueen MD [address] [place] [address] [place] [address] Scheduled Procedures Name Priority Associated Diagnoses Date/Ti me ESOPHAGOGASTRODUODENOSCOPY ( EGD), FLEXIBLE, TRANSORAL, DIAGNOSTIC Recall Stark's esophagus with dysplasia 08/27/2024 11:45 AM EDT COLONOSCOPY FLEXIBLE PROXIMA L DIAGNOSTIC Recall Stark's esophagus with dysplasia 08/27/2024 11:45 AM EDT Health Maintenance Due Date Last Done Comments Adult Wellness Visit 2003 Depression Screening 07/12/2021 07/12/2020 CKD PHOS USE SMARTSET 86806 08/21/2022 1002/2021, 07/12/2020, 03/13/2019, Additional history exists [...] 11/04/2018, Additional history exists TSH 07/28/2025 07/28/2024, 030 03/2024, 10/08/2023, Additional history exists CKD HGB USE SMARTSET 96931 08/04/202508/04, 08/04/2024, 07/28/2024, Additional history exists DTap/Tdap Vaccines (2 - Td or Tdap) 08/19/2027 08/19/2017, 08/20/2008 Pneumococcal Vaccine: 65+ Years Completed 06/23/2015, 05/14/2013, 04/18/2004 Zoster Vaccines Completed 12/02/2020, 08/15/2020 VITAMIN D LEVEL ONCE IN A LIFETIME-USE SMARTSET# [id number] Completed 04/22/2023, 08/28/2021, 07/14/2015 HPV (Gardasil) Vaccine Aged Out No lo nger eligible based on patient's age to complete this topic Hepatitis B Vaccine Aged Out No longe r eligible based on patient's age to complete this topic MENINGOCOCCAL (MENACTRA/MENVEO) Aged Out No longer eligible based on patient's age to complete this topic documented as of this encounter Medical Devices Implanted Type Area Soundscriber Mechanic Device Identifier Shelf Expiration Date Model / Serial / Lot Power Port 8fr Sngl Lumen Plas - [id number] Implanted:Qty: 1 on 02/22/2022 at [facility] : PERIPHERAL VASCULAR [id number] 02/15/2023 [id number] / / [id number] documented as of this encounter Advance Directives * Full Code (Latest Code Status on File) Date Activated Date Inactivated Comments 09/03/2007 7:29 AM 09/03/2007 4:02 PM Care Teams Salon Supervisor Relationship Specialty Start Date End Date Bell Mcqueen MD [address] [place] [address] [place] [address] PCP - General Family Medicine 06/24/24 documented as of this encounter
--- OUTSIDE RECORDS SUMMARY | 2024-08-08 11:08 | External Medical Summary | Summary of Care ---
Author Name Unknown Organization [facility] Address [address] [place] [address] Phone [phone] Care Team Providers Care [employer] Manager Name Role Phone Bell Mcqueen MD Primary Care Provide r Reason for Visit * Reason Comments Outpatient Testing Encounter Details Date Type Department Care Team (Late st Contact Info) Description 08/04/2024 10:20 AM EDT Laboratory Laboratory [address] [place] [phone] [place] [address] Urothelial carcinoma of bladder (HCC) Allergies Active [...] albuterol 120 mL 5 11/21/2022 Active Ipratropium [place] 0.02 % Inhalation Solution (Atrovent)Indicatio ns:Moderate persistent [...] EVERY EVENING. OR TAKE INSTRUCTED BY [facility] 90 Tablet 3 05/07/2024 [...] Respimat 2.5 MCG/ACT Inhalation Aerosol Solution (Tiotropium [place] Monohydrate)Indicat ions:Moderate persistent asthma without complication INHALE 2 PUFFS BY MOUTH EVERY DAY 12 g 3 07/28/2024 Active ProAir HFA 108 (90 Base) MCG/ACT Inhalation Aerosol SolutionIndications :Moderate persistent asthma with exacerbation Inhale 2 Puffs by mouth every 4 hours as needed for Wheezing. 8.5 g 2 07/29/2024 Active Fluticasone Propionate 50 MCG/ACT Nasal Suspension (Flonase)Indication s:Acute cough Administer 1 Marshall into each nostril 2 times a day. [...] rinse after steroid. Test performed by Sameer [employer] Pleural plaque due to asbestos exposure Restrictive lung disease Overview: In Check dial performed to assess inhaler technique: 12/15/19 Name of inhalers Albuterol Pass: Yes at 60 L/min and Advair Pass: Yes at 60 L/min. Encouraged to to take deep breath, use aero chamber, and rinse after steroid. Test performed by Sameer [employer] Hx of pulmonary embolus 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 Overview: [place] C0-M6 documented as of this encounter (statuses [...] Malignant neoplasm of prostate 09/23/2008 03/27/2018 Overview: [place] grade 3 Atrial flutter 09/02/2007 10/16/2007 Herpes [...] mRNA, LNP-s, No Pre serve, 2-Dose Series (Pfizer) 12/01/2021,01/16/2021,12/26/2020 COVID-19, LNP-s, No Preserve , Ozzy-sucrose, [...] Anticoagulation [facility], Angela Giles [address] [place] [address] [place] [address] [facility], [address] [place] [address] 4 2:30 PM EDT Hem/Onc Treatment Hematology/Onc ology Treatment, [address] [phone] Marylou, Chair 1 Hem Onc [address] [place] [address] 4 10:30 AM EDT Laboratory Laboratory [address] [place] [phone] [place] [address] 4 10:30 AM EDT Hem/Onc Treatment Hematology/Onc ology Treatment, [address] [phone] 4 10:30 AM EDT Laboratory Laboratory [address] [place] [phone] [address] [place] [address] 4 10:30 AM EDT Hem/Onc Treatment Hematology/Onc ology Treatment, [address] [place] [phone] 4 8:40 AM EDT Office Visit Rheumatology [address] [place] [phone] Win Nielsen MD [address] [place] [address] [place] [address] 4 10:30 AM EDT Laboratory Laboratory [address] [place] [phone] [address] [place] [address] 4 1:15 PM EDT Office Visit Hematology/Onc ology [facility] [address] [facility] [phone] Ramon Cadet [facility] [address] [facility] [address] 4 1:45 PM EDT Hem/Onc Treatment Hematology/Onc ology [address] [phone] 4 11:45 AM EDT Hospital Encounter [facility], [facility], [address], [place] [phone] Domingo Garcia DO [address] [place] [address] 4 11:45 AM EDT - 4 1:00 PM EDT Surgery [facility], [facility], [address], [place] [phone] Domingo Garcia DO [address] [facility], [place] [id number] ESOPHAGOGASTRODUODENOSCOPY (EGD), FLEXIBLE, TRANSORAL, DIAGNOSTIC 5 11:20 AM EST Office Visit Family Medicine [address] [place] [phone] Bell Mcqueen MD [address] [place] [address] [place] [address] Pending Results Name Type Priority Associated Diagnoses Date /Time CBC WITH WBC DIFFERENTIAL Lab STAT Urothelial carcinoma of bladder (HCC) 08/04/2024 10:09 AM EDT CBC Lab STAT Urothelial carcinoma of bladder (HCC) 08/04/2024 10:09 AM EDT DIFFERENTIAL, AUTOMATED Lab STAT Urothelial carcinoma of bladder (HCC) 08/04/2024 10:09 AM EDT Scheduled Procedures Name Priority Associated Diagnoses Date/Ti me ESOPHAGOGASTRODUODENOSCOPY ( EGD), FLEXIBLE, TRANSORAL, DIAGNOSTIC Recall Stark's esophagus with dysplasia 08/27/2024 11:45 AM EDT COLONOSCOPY FLEXIBLE PROXIMA L DIAGNOSTIC Recall Stark's esophagus with dysplasia 08/27/2024 11:45 AM EDT Health Maintenance Due Date Last Done Comments Adult Wellness Visit 2003 Depression Screening 07/12/2021 07/12/2020 CKD PHOS USE SMARTSET 81986 08/21/2022 10/0 02/2021, 07/12/2020, 03/13/2019, Additional history [...] 07/05/2025 07/05/2023, 1207/2020, 11/04/2018, Additional history exists CKD HGB USE SMARTSET 37086 07/28/202507/28, 07/28/2024, 07/22/2024, Additional history exists TSH 07/28/2025 07/28/2024, 03/0 03/2024, 10/08/2023, Additional history exists DTap/Tdap Vaccines (2 - Td or Tdap) 08/19/2027 08/19/2017, 08/20/2008 Pneumococcal Vaccine: 65+ Years Completed 06/23/2015, 05/14/2013, 04/18/2004 Zoster Vaccines Completed 12/02/2020, 08/15/2020 VITAMIN D LEVEL ONCE IN A LIFETIME-USE SMARTSET# [id number] Completed 04/22/2023, 08/28/2021, 07/14/2015 HPV (Gardasil) Vaccine Aged Out No lo nger eligible based on patient's age to complete this topic Hepatitis B Vaccine Aged Out No longe r eligible based on patient's age to complete this topic MENINGOCOCCAL (MENACTRA/MENVEO) Aged Out No longer eligible based on patient's age to complete this topic documented as of this encounter Medical Devices Implanted Type Area Marine Water Tender Device Identifier Shelf Expiration Date Model / Serial / Lot Power Port 8fr Sngl Lumen Plas - [id number] Implanted:Qty: 1 on 02/22/2022 at [facility] CR [facility]ARD : PERIPHERAL VASCULAR [id number] 02/15/2023 [id number] / / [id number] documented as of this encounter Visit Diagnoses Diagnosis 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
[2024-08-08 11:48] LABS: Base Excess VBG 0 mEq/L; HCO3 VBG 25 mmol/L; Oxygen Saturation VBG < 60.0 %; PCO2 VBG 40 mmHg (38-50); PO2 VBG 24 mmHg
[2024-08-08 11:57] LABS: Appearance Urine Clear (Clear); Bacteria Urine Automated None Seen (None Seen); Bilirubin Urine 1+ (Negative); Blood Urine Negative (Negative); Color Urine Dark Yellow; Epithelial Cell Urine Auto 0-2 /hpf (0-2); Glucose Urine UA Negative (Negative); Ketones Urine Trace (Negative); Leukocyte Esterase Urine Trace (Negative); Nitrite Urine Negative (Negative); Protein Urine 2+ (Negative); RBC Urine Automated 0-2 /hpf (0-2); Specific Gravity Urine 1.023 (1.000-1.030); Urobilinogen Urine Negative (Negative); WBC Urine Automated 0-5 /hpf (0-5)
--- NOTE | 2024-08-08 12:05 | Emergency Department Note ---
History of Present Illness General Chief complaint: Confusion Stated complaint: CONFUSION Time Seen by Provider: 08/08/24 11:18 Source: family ( and daughter) History of Present Illness Provider complaint: Altered mental status 89-year-old male with history of dementia presents emergency department for altered mental status. and daughter report that the patient is becoming increasingly confused for the last day. They report that the patient not been sleeping. reports that she tried to give him melatonin last night but then the patient woke up and was naked trying to wash his close in the sink. She denies any falls. Patient did have a cystoscopy on Saturday and since then has been having hematuria. 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 Patient is on Coumadin. reports that the patient has been having increased difficulty breathing as well. Home Medications Medication Instructions Recorded Confirmed Type esomeprazole magnesium 40 mg 40 mg PO BID 03/25/19 08/05/24 History capsule,delayed release (Nexium) prednisone 5 mg tablet 5 mg PO QAM 03/25/19 08/05/24 History warfarin 5 mg tablet 2.5 mg PO [id number] 03/25/19 08/05/24 History ferrous sulfate 325 mg (65 mg 325 mg PO QAM 04/25/21 08/05/24 History iron) tablet levothyroxine 125 mcg tablet 125 mcg PO DAILYBB 01/23/24 08/05/24 History spironolactone 25 mg tablet 12.5 mg PO QAM 01/23/24 08/05/24 History tamsulosin 0.4 mg capsule 0.4 mg PO QAM 01/23/24 08/05/24 History zolpidem 5 mg tablet 5 mg PO HS PRN restless leg 01/23/24 08/05/24 History syndrome cholecalciferol (vitamin D3) 25 25 mcg PO QAM 03/31/24 08/05/24 History mcg (1,000 unit) tablet (Vitamin D3) cyanocobalamin (vitamin B-12) 1,000 mcg PO QAM 03/31/24 08/05/24 History 1,000 mcg tablet (Vitamin B-12) rosuvastatin 10 mg tablet 10 mg PO QPM 05/18/24 08/05/24 History Allergies Allergy/AdvReac Type Severity Reaction Status Date / Time Penicillins Allergy Unknown RASH/EL-ORBITAL Verified 08/05/24 14:20 EDEMA olanzapine [From Zyprexa] AdvReac Severe Agitated Verified 08/05/24 14:20 Past Med/Surg History Problem List (Updated 08/08/24 @ 14:12 by Brodei Ramirez MD) Altered mental status (Acute) Skin tear of upper extremity Traumatic open wound of left lower leg (Acute) Chronic venous insufficiency Abnormal ankle brachial index (Acute) Acute on chronic blood loss anemia Elevated lactic acid level (Acute) Acute kidney injury superimposed on CKD (Acute) Cellulitis of left leg (Acute) Anemia Heme positive stool Epididymitis Persistent atrial fibrillation Acute on chronic diastolic CHF (congestive heart failure) Weakness (Acute) AMS (altered mental status) (Acute) CHF (congestive heart failure) (Acute) Acute metabolic encephalopathy Nocturnal hypoxemia Acute kidney injury superimposed on CKD Acute decompensated heart failure (Acute) Testicular discomfort (Acute) Spermatocele of epididymis, single (Chronic) Community acquired pneumonia (Acute) Congestive heart failure (Acute) Moderate mitral stenosis Pneumonia Mitral stenosis and aortic insufficiency Pulmonary edema cardiac cause RSV (respiratory syncytial virus infection) Metabolic acidosis Acute respiratory failure with hypoxia and hypercarbia Encounter for pre-operative examination Lumbar spondylosis Low back pain Bladder cancer Pacemaker Asthma Chronic steroid use Atrial fibrillation DX 2003 - ON [place]; follows with Dr. Rainey Status post mitral valve repair Status post aortic valve replacement "bioprosthetic" CKD (chronic kidney disease), stage III History of prostate cancer "had elevated PSA with + biopsy, but repeat biopsies and subsequent PSA's improved" On 11/18/16 10:00 Randy Gilbert wrote "2007" Osteoarthritis Medical History Enlarged prostate Elevated troponin level (05/18/24) notes elevated troponin level ad mn ed visit. Reports she did message cardiology regarding and no response as of current. Anemia reports iron deficiency anemia. Asthma not sure on official dx details. History of respiratory failure (12/2023) History of encephalopathy (03/2024) Hx of bladder cancer (05/2021) TURBT, chemo + radiation Nocturnal hypoxemia oxygen prn 2L [place] (hard of hearing) High cholesterol History of elevated PSA Osteoarthritis CKD (chronic kidney disease), stage III History of pulmonary edema History of pericarditis (2023) Moderate mitral stenosis "some calcification there" - told valve was working okay. History of RSV infection (12/2023) and hx respiratory failure Dec 2023 History of pneumonia (12/2023) Hypothyroid Persistent atrial fibrillation History of CHF (congestive heart failure) (03/2024) Cellulitis dx 05/18/24 left leg - wi ed. Hematuria current: messaged urology regarding. Reports was told do colonoscopy/egd first then will follow up. Hx cystoscopy march 2024 and was clear. 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 History of atrial flutter Restless legs syndrome Dyslipidemia Carotid artery disease pt is unsure about this. Nothing has ever been talked about regarding. Spinal stenosis of lumbar region History of paroxysmal supraventricular tachycardia BPH (benign prostatic hypertrophy) Diverticular disease of colon COPD (chronic obstructive pulmonary disease) pt not sure about official dx of. Hypertension Surgical History History of aortic valve replacement (2003) History of mitral valve repair (2003) [facility]. History of cardiac radiofrequency ablation x2 most recent approx 2013. History of right cataract surgery History of left cataract surgery Pacemaker TACHY-KURT SYNDROME. ALSO HX OF A-FIB. LAST CHECKED within 2023 - [facility] History of bladder surgery TURBT 05/29/2021 [facility] History of esophagogastroduodenoscopy (EGD) MULTIPLE History of tonsillectomy History of total knee replacement LEFT KNEE History of herniorrhaphy History of surgery MOHS PROCEDURE ON FACE History of colonoscopy History of bowel resection S/T DIVERTICULITIS History of arthroscopy B/L SHOULDERS Status post inguinal hernia repair Family History Brother Diabetes Cancer Esophageal Cancer Mother Colorectal cancer Lung cancer Social History Smoking Status: Never smoker Tobacco Type: Smokeless Tobacco (Dip or Chew) Cigarettes Per Day: 0; Second Hand Exposure: No; Do You Dip or Chew Tobacco: Yes (1 can lasts a few days/advised); Hx Alcohol Use: No Hx Substance Use: No Preferred Language: Marshallese Communication Ability: Effective Communication Ability Comment: pt is pokagon, pt does phone interview. Visual Impairment: Limited Hearing Ability: Hard of Hearing Water Regulator And Valve Repairer Required: No Beliefs That Will Affect Care: None marital status: Current Living Situation: Spouse Current Living Situation Comment: home with current occupational status: retired Feels Safe at Home: Yes Diet: regular caffeine: No during the past year weight has: remained stable Physical Activity Frequency: Other Physical Activity Frequency Comment: "Does alot of yard work" Assistive Devices: Cane, Glasses and Hearing Aid - Bilateral Physical Exam Vital Signs Vital Signs - 24 hr 08/08/24 10:57 08/08/24 11:06 08/08/24 11:24 Temperature 36.6 C Temperature Source Temporal Artery Scan Pulse Rate 76 74 Pulse Rate from SpO2 Sensor 76 Pulse Rhythm Respiratory Rate 18 19 Blood Pressure 105/64 Blood Pressure Mean 77 Pulse Oximetry 92 95 97 Oxygen Delivery Method Room Air Room Air Oxygen Flow Rate Sepsis Recent Fever Within 48 Hours No Sepsis New/Unexplained Change in Mental Status Yes Sepsis Action Taken by Nursing No Action Required 08/08/24 11:25 08/08/24 11:26 08/08/24 11:30 Temperature Temperature Source Pulse Rate 74 78 Pulse Rate from SpO2 Sensor Pulse Rhythm Regular Respiratory Rate 20 Blood Pressure 110/71 Blood Pressure Mean 81 Pulse Oximetry 92 Oxygen Delivery Method Room Air Oxygen Flow Rate Sepsis Recent Fever Within 48 Hours Sepsis New/Unexplained Change in Mental Status Sepsis Action Taken by Nursing 08/08/24 11:30 08/08/24 11:30 08/08/24 11:30 Temperature Temperature Source Pulse Rate 74 72 Pulse Rate from SpO2 Sensor 71 72 Pulse Rhythm Respiratory Rate 17 18 Blood Pressure 125/55 L 125/55 L Blood Pressure Mean 68 68 Pulse Oximetry 96 95 91 Oxygen Delivery Method Room Air Oxygen Flow Rate Sepsis Recent Fever Within 48 Hours Sepsis New/Unexplained Change in Mental Status Sepsis Action Taken by Nursing 08/08/24 12:03 08/08/24 12:20 08/08/24 12:54 Temperature Temperature Source Pulse Rate 74 73 Pulse Rate from SpO2 Sensor Pulse Rhythm Respiratory Rate 16 18 16 Blood Pressure Blood Pressure Mean Pulse Oximetry 88 L 97 97 Oxygen Delivery Method Room Air Nasal Cannula Nasal Cannula Oxygen Flow Rate 2 2 Sepsis Recent Fever Within 48 Hours Sepsis New/Unexplained Change in Mental Status Sepsis Action Taken by Nursing 08/08/24 13:00 08/08/24 13:00 08/08/24 13:09 Temperature Temperature Source Pulse Rate 76 73 Pulse Rate from SpO2 Sensor Pulse Rhythm Respiratory Rate 16 16 Blood Pressure 116/50 L Blood Pressure Mean 80 Pulse Oximetry 99 96 Oxygen Delivery Method Nasal Cannula Nasal Cannula Oxygen Flow Rate 2 2 Sepsis Recent Fever Within 48 Hours Sepsis New/Unexplained Change in Mental Status Sepsis Action Taken by Nursing 08/08/24 13:30 08/08/24 13:31 08/08/24 13:31 Temperature Temperature Source Pulse Rate 74 Pulse Rate from SpO2 Sensor 65 Pulse Rhythm Respiratory Rate 19 Blood Pressure 117/54 L Blood Pressure Mean 74 Pulse Oximetry 91 96 Oxygen Delivery Method Nasal Cannula Nasal Cannula Oxygen Flow Rate 2 2 Sepsis Recent Fever Within 48 Hours Sepsis New/Unexplained Change in Mental Status Sepsis Action Taken by Nursing Physical Exam HENT: Exam performed. - Head: Bandage over the patient's left side of the face where the squamous cell carcinoma was removed. - Right Ear: External ear normal. No mastoid erythema - Left Ear: External ear normal. No mastoid erythema - Mouth/Throat: The oropharynx is clear and moist. No trismus in the jaw. No dental abscesses or uvula swelling. No oropharyngeal exudate or tonsillar abscesses. EYES: Conjunctivae and EOM are normal. Pupils are equal, round, and reactive to light. Right eye exhibits no discharge. Left eye exhibits no discharge. No scleral icterus. NECK: Normal range of motion. Neck supple. JVD present. CV: Normal rate, irregular rhythm, normal heart sounds and intact distal pulses. Palpable radial pulses bue. PULM/CHEST: Rhonchi bilaterally. ABD: The abdomen is soft. There is no tenderness. There is no rebound, no guarding NEURO: Motor and sensation grossly intact. Course Course 1118: The patient was evaluated in room B2. A complete history and physical exam was performed Cardiac monitoring: An order was placed for continuous cardiac monitoring. The monitor shows a rate of 70 with atrial fibrilation rhythm interpreted by me 1320: Vital signs stable. Imaging shows that the patient is fluid overloaded. Labs show an elevated proBNP and high-sensitivity troponin. Total bilirubin 2.4. Patient be treated with Lasix. Patient's oxygen saturation did drop and the reports that he is supposed to wear oxygen at night but he usually does not. Patient will be [facility] to [facility] hospitalist team. Medical Decision Making Laboratory Data Attestation: I reviewed the patient's lab results. 08/08/24 12:41 08/08/24 11:31 Lab Results 08/08/24 08/08/24 08/08/24 Range/Units 11:16 11:31 11:43 WBC Cancelled RBC Cancelled Hgb Cancelled Hct Cancelled MCV Cancelled MCH Cancelled MCHC Cancelled RDW Std Deviation Cancelled RDW Coeff of Humberto Cancelled Plt Count Cancelled MPV Cancelled Immature Gran % (Auto) Cancelled Neut % (Auto) Cancelled Lymph % (Auto) Cancelled [place] % (Auto) Cancelled Eos % (Auto) Cancelled Baso % (Auto) Cancelled Neut # (Auto) Cancelled Lymph # (Auto) Cancelled [place] # (Auto) Cancelled Eos # (Auto) Cancelled Baso # (Auto) Cancelled Immature Gran # (Auto) Cancelled Absolute Nucleated RBC Cancelled Nucleated RBC % (auto) Cancelled Neutrophils % (Manual) Cancelled Band Neutrophils % Cancelled Lymphocytes % (Manual) Cancelled Prolymphocyte % Cancelled Reactive Lymphs % (Man) Cancelled Monocytes % (Manual) Cancelled Eosinophils % (Manual) Cancelled Basophils % (Manual) Cancelled Metamyelocytes % (Man) Cancelled Myelocytes % (Man) Cancelled Promyelocytes % (Man) Cancelled Blast Cells % (Manual) Cancelled Plasma Cell % (Manual) Cancelled Other Cells % Cancelled Nucleated RBC % Cancelled Neutrophils # (Manual) Cancelled Band Neutrophils # Cancelled Total Absolute Neuts Cancelled Lymphocytes # (Manual) Cancelled Prolymphocyte # Cancelled Reactive Lymphs # Cancelled Total Abs Lymphocytes Cancelled Monocytes # (Manual) Cancelled Eosinophils # (Manual) Cancelled Basophils # (Manual) Cancelled Metamyelocytes # (Man) Cancelled Myelocytes # (Manual) Cancelled Promyelocytes # (Man) Cancelled Blast Cells # (Man) Cancelled Plasma Cell # (Manual) Cancelled Other Cells # Cancelled Nucleated RBCs # (Man) Cancelled Hypersegmented Neuts Cancelled Hyposegmented Neuts Cancelled Hypogranular Neuts Cancelled Large Granular Lymphs Cancelled # Lrg Granular Lymphs Cancelled Hairy Cells Cancelled Smudge Cells Cancelled Toxic Granulation Cancelled Toxic Vacuolation Cancelled Dohle Bodies Cancelled Vic Rods Cancelled Platelet Estimate Cancelled Hypogranular Platelets Cancelled Giant Platelets Cancelled Platelet Satelliting Cancelled RBC Morphology Cancelled Polychromasia Cancelled Hypochromasia Cancelled Poikilocytosis Cancelled Basophilic Stippling Cancelled Anisocytosis Cancelled Microcytosis Cancelled Macrocytosis Cancelled Spherocytes Cancelled Pappenheimer Bodies Cancelled Sickle Cells Cancelled Target Cells Cancelled Tear Drop Cells Cancelled Ovalocytes Cancelled Stomatocytes Cancelled [place] Bodies Cancelled Echinocytes Cancelled Acanthocytes (Spur) Cancelled Rouleaux Cancelled RBC Agglutinates Cancelled Schistocytes Cancelled Sezary Cell Cancelled PT 22.3 H (9.0-12.0) Seconds INR 2.2 H (0.9-1.1) APTT 30 (21-31) Seconds PTT Ratio 1.1 VBG pH 7.40 (7.36-7.41) VBG pCO2 40 (38-50) mmHg VBG pO2 24 mmHg VBG HCO3 25 mmol/L VBG O2 Saturation < 60.0 % VBG Base Excess 0 mEq/L Sodium 136 (136-145) mmol/L Potassium 5.0 (3.5-5.1) mmol/L Chloride 102 (98-107) mmol/L Carbon Dioxide 24 (21-32) mmol/L Anion Gap 10 (3-11) BUN 55 H (6-23) mg/dl Creatinine 1.87 H (0.6-1.4) mg/dl Est Cr Clr Drug Dosing 22.2 ml/min Est GFR ( Amer) 36.6 ml/min Est GFR (Non-Af Amer) 31.6 ml/min BUN/Creatinine Ratio 29.4 H (10-20) Glucose 85 (70-99(Fasting)) mg/dl Lactate 1.5 (0.4-2.0) mmol/L Calcium 8.7 (8.6-10.3) mg/dl Magnesium 2.6 H (1.7-2.4) mg/dl Total Bilirubin 2.4 H (0.2-1.0) mg/dl Direct Bilirubin TNP AST 26 (13-39) U/L ALT 11 (7-52) U/L Alkaline Phosphatase 86 (34-104) U/L Ammonia (18-72) umol/L Troponin I High Sens 29.6 H (0-20) pg/ml B-Natriuretic Peptide 1901 H (0-100) pg/ml Total Protein 6.6 (6.0-8.3) gm/dl Albumin 3.8 (3.4-5.0) gm/dl Procalcitonin 0.21 (0-0.5) ng/ml Urine Color Dark Yellow Urine Appearance Clear (Clear) Urine pH 6.0 (4.5-7.5) Ur Specific [place] 1.023 (1.000-1.030) Urine Protein 2+ H (Negative) Urine Glucose (UA) Negative (Negative) Urine Ketones Trace H (Negative) Urine Blood Negative (Negative) Urine Nitrite Negative (Negative) Urine Bilirubin 1+ H (Negative) Urine Urobilinogen Negative (Negative) Ur Leukocyte Esterase Trace H (Negative) Urine WBC (Auto) 0-5 (0-5) /hpf Urine RBC (Auto) 0-2 (0-2) /hpf U Hyaline Cast (Auto) 3-5 H (0-2) /lpf U Epithel Cells (Auto) 0-2 (0-2) /hpf Urine Bacteria (Auto) None Seen (None Seen) Salicylates < 3.0 L (3.0-30) mg/dl Acetaminophen < 3 L (10-30) ug/ml Ethyl Alcohol mg/dL (<10.0) mg/dl Adenovirus (PCR) Not Detected (NotDetected) B. pertussis DNA (PCR) Not Detected (NotDetected) B.parapertussis DNA PCR Not Detected (NotDetected) C. pneumoniae DNA (PCR) Not Detected (NotDetected) Coronavirus OC43 (PCR) Not Detected (NotDetected) Coronavirus HKU1 (PCR) Not Detected (NotDetected) Coronavirus 229E (PCR) Not Detected (NotDetected) SARS-CoV-2 (PCR) Not Detected (NotDetected) Coronavirus NL63 (PCR) Not Detected (NotDetected) Human Metapneumovir PCR Not Detected (NotDetected) Influenza Type A (PCR) Not Detected (NotDetected) Influenza Type B (PCR) Not Detected (NotDetected) M. pneumoniae (PCR) Not Detected (NotDetected) Parainfluenza 1 (PCR) Not Detected (NotDetected) Parainfluenza 2 (PCR) Not Detected (NotDetected) Parainfluenza 3 (PCR) Not Detected (NotDetected) Parainfluenza 4 (PCR) Not Detected (NotDetected) RSV (PCR) Not Detected (NotDetected) Entero/Rhino (PCR) Not Detected (NotDetected) Blood Parasites ID Cancelled 08/08/24 Range/Units 12:41 WBC 4.93 RBC 3.18 L Hgb 8.1 L Hct 29.2 L MCV 91.8 MCH 25.5 MCHC 27.7 L RDW Std Deviation 60.2 H RDW Coeff of Humberto 18.1 H Plt Count 97 L MPV 11.0 Immature Gran % (Auto) 0.6 Neut % (Auto) 77.1 Lymph % (Auto) 8.7 [place] % (Auto) 12.2 Eos % (Auto) 0.8 Baso % (Auto) 0.6 Neut # (Auto) 3.80 Lymph # (Auto) 0.43 L [place] # (Auto) 0.60 H Eos # (Auto) 0.04 Baso # (Auto) 0.03 Immature Gran # (Auto) 0.03 Absolute Nucleated RBC Nucleated RBC % (auto) Neutrophils % (Manual) Band Neutrophils % Lymphocytes % (Manual) Prolymphocyte % Reactive Lymphs % (Man) Monocytes % (Manual) Eosinophils % (Manual) Basophils % (Manual) Metamyelocytes % (Man) Myelocytes % (Man) Promyelocytes % (Man) Blast Cells % (Manual) Plasma Cell % (Manual) Other Cells % Nucleated RBC % Neutrophils # (Manual) Band Neutrophils # Total Absolute Neuts Lymphocytes # (Manual) Prolymphocyte # Reactive Lymphs # Total Abs Lymphocytes Monocytes # (Manual) Eosinophils # (Manual) Basophils # (Manual) Metamyelocytes # (Man) Myelocytes # (Manual) Promyelocytes # (Man) Blast Cells # (Man) Plasma Cell # (Manual) Other Cells # Nucleated RBCs # (Man) Hypersegmented Neuts Hyposegmented Neuts Hypogranular Neuts Large Granular Lymphs # Lrg Granular Lymphs Hairy Cells Smudge Cells Toxic Granulation Toxic Vacuolation Dohle Bodies Vic Rods Platelet Estimate Hypogranular Platelets Giant Platelets Platelet Satelliting RBC Morphology Polychromasia Hypochromasia Poikilocytosis Basophilic Stippling Anisocytosis Microcytosis Macrocytosis Spherocytes Pappenheimer Bodies Sickle Cells Target Cells Tear Drop Cells Ovalocytes Stomatocytes [place] Bodies Echinocytes Acanthocytes (Spur) Rouleaux RBC Agglutinates Schistocytes Sezary Cell PT (9.0-12.0) Seconds INR (0.9-1.1) APTT (21-31) Seconds PTT Ratio VBG pH (7.36-7.41) VBG pCO2 (38-50) mmHg VBG pO2 mmHg VBG HCO3 mmol/L VBG O2 Saturation % VBG Base Excess mEq/L Sodium (136-145) mmol/L Potassium (3.5-5.1) mmol/L Chloride (98-107) mmol/L Carbon Dioxide (21-32) mmol/L Anion Gap (3-11) BUN (6-23) mg/dl Creatinine (0.6-1.4) mg/dl Est Cr Clr Drug Dosing ml/min Est GFR ( Amer) ml/min Est GFR (Non-Af Amer) ml/min BUN/Creatinine Ratio (10-20) Glucose (70-99(Fasting)) mg/dl Lactate (0.4-2.0) mmol/L Calcium (8.6-10.3) mg/dl Magnesium (1.7-2.4) mg/dl Total Bilirubin (0.2-1.0) mg/dl Direct Bilirubin AST (13-39) U/L ALT (7-52) U/L Alkaline Phosphatase (34-104) U/L Ammonia 20.0 (18-72) umol/L Troponin I High Sens (0-20) pg/ml B-Natriuretic Peptide (0-100) pg/ml Total Protein (6.0-8.3) gm/dl Albumin (3.4-5.0) gm/dl Procalcitonin (0-0.5) ng/ml Urine Color Urine Appearance (Clear) Urine pH (4.5-7.5) Ur Specific [place] (1.000-1.030) Urine Protein (Negative) Urine Glucose (UA) (Negative) Urine Ketones (Negative) Urine Blood (Negative) Urine Nitrite (Negative) Urine Bilirubin (Negative) Urine Urobilinogen (Negative) Ur Leukocyte Esterase (Negative) Urine WBC (Auto) (0-5) /hpf Urine RBC (Auto) (0-2) /hpf U Hyaline Cast (Auto) (0-2) /lpf U Epithel Cells (Auto) (0-2) /hpf Urine Bacteria (Auto) (None Seen) Salicylates (3.0-30) mg/dl Acetaminophen (10-30) ug/ml Ethyl Alcohol mg/dL < 10.0 (<10.0) mg/dl Adenovirus (PCR) (NotDetected) B. pertussis DNA (PCR) (NotDetected) B.parapertussis DNA PCR (NotDetected) C. pneumoniae DNA (PCR) (NotDetected) Coronavirus OC43 (PCR) (NotDetected) Coronavirus HKU1 (PCR) (NotDetected) Coronavirus 229E (PCR) (NotDetected) SARS-CoV-2 (PCR) (NotDetected) Coronavirus NL63 (PCR) (NotDetected) Human Metapneumovir PCR (NotDetected) Influenza Type A (PCR) (NotDetected) Influenza Type B (PCR) (NotDetected) M. pneumoniae (PCR) (NotDetected) Parainfluenza 1 (PCR) (NotDetected) Parainfluenza 2 (PCR) (NotDetected) Parainfluenza 3 (PCR) (NotDetected) Parainfluenza 4 (PCR) (NotDetected) RSV (PCR) (NotDetected) Entero/Rhino (PCR) (NotDetected) Blood Parasites ID Imaging Data Attestation: I personally reviewed and interpreted this imaging study as follows: My Impression: Chest x-ray: Cardiomegaly with cephalization Radiologist's Impression: Chest X-Ray 08/08/24 11:30 XR chest 1V portable HISTORY: 89 years-old Male Sepsis acute sepsis COMPARISON: 05/27/2024 TECHNIQUE: AP view of the chest FINDINGS: Cardiac silhouette is enlarged. Left subclavian pacer. Median sternotomy with cardiac valvular prosthesis. Interstitial pulmonary edema with small pleural effusions and mild bibasilar atelectasis. Calcified pleural plaques again noted. Chronic right-sided rib fractures. IMPRESSION: 1. Cardiomegaly with interstitial pulmonary edema. 2. Small pleural effusions with mild bibasilar atelectasis. 3. Asbestos-related pleural disease. ACT 112: Negative or not required by law. The above report was generated using voice recognition software. It may contain grammatical, syntax or spelling errors. Electronically signed by: Denys Wing M.D. 08/08/2024 12:19 PM Abdomen/Pelvis CT 08/08/24 11:[address] WITHOUT CONTRAST CT DOSE: 1631.07 mGy.cm HISTORY: Acute hematuria hematuria TECHNIQUE: Multiaxial CT images of the abdomen and pelvis were performed without contrast. A dose lowering technique was utilized adhering to the principles of ALARA. COMPARISON STUDY: 03/31/2024 FINDINGS: Cardiomegaly with median sternotomy. Partially imaged facial leads. Mitral and aortic valvular prosthesis. Small pleural effusions. Decreased attenuation of the cardiac blood pole compatible with anemia. Interstitial pulmonary edema with mild bibasilar mucous plugging and groundglass densities/atelectasis. No free air. Spleen is enlarged, 13.8 cm. The liver is mildly enlarged with mild hepatic sedatives cyst. No liver mass is identified. Cholelithiasis. Unremarkable pancreas and adrenal glands. Scattered nonobstructing renal calculi measure up to approximately 3 mm bilaterally. 7 mm hyperdense focus in the interpolar left kidney is too small to characterize, possibly a complex cyst. No ureteral calculi or hydronephrosis. Urinary bladder wall thickening with perivesicular stranding. Prostatomegaly. 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 There is no lymphadenopathy identified. Distal esophageal wall thickening. Tiny hiatal hernia. Moderate-sized fundal diverticulum of the stomach. There is diffuse gastric wall thickening. Moderate colonic fecal retention. Small amount of abdominopelvic ascites. Prior partial colectomy. No small bowel obstruction. Sclerotic changes of the bony pelvis redemonstrated. 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 IMPRESSION: 1. Nonobstructing bilateral nephrolithiasis. No ureteral calculi or hydronephrosis. 2. Prostamegaly with evidence of chronic outlet obstruction. 3. Moderate colonic fecal retention. No bowel obstruction. 4. Cholelithiasis. 5. Cardiomegaly with volume overload consisting of pulmonary edema, small pleural effusions with anasarca and small amount of ascites. 6. Nonspecific gastric wall thickening. Correlate clinically to exclude gastritis. ACT 112: Negative or not required by law. The above report was generated using voice recognition software. It may contain grammatical, syntax or spelling errors. Electronically signed by: Denys Wing M.D. 08/08/2024 12:[address] 08/08/24 11:31 CT head/brain wo con CLINICAL HISTORY: 89 years-old Male with ams. Acutely altered mental status with sepsis TECHNIQUE: Multiple axial CT images of the head were obtained without contrast. A dose lowering technique was utilized adhering to the principles of ALARA. COMPARISON: 05/18/2024 FINDINGS: No acute intracranial hemorrhage, midline shift, intracranial mass, hydrocephalus, territorial ischemia or abnormal extra-axial collection. Involutional changes with chronic microvascular ischemic disease. Cerebral vascular calcifications. Chronic left cerebellar infarct. The calvarium is intact. Partially imaged polypoid mucosal thickening of the right axillary sinus. Trace right mastoid effusion.. IMPRESSION: No acute intracranial abnormality. ACT 112: Negative or not required by law. The above report was generated using voice recognition software. It may contain grammatical, syntax or spelling errors. Electronically signed by: Denys Wing M.D. 08/08/2024 12:35 PM ECG Data Attestation: I personally reviewed and interpreted this ECG as follows: Rate (beats per minute): 73 Rhythm: + atrial fibrillation ECG Intervals/blocks: + Normal QRS ECG ST segments: + Normal ST segments Additional Comments: QTc 504 MDM Narrative 1118: The patient was evaluated in room B2. A complete history and physical exam was performed Cardiac monitoring: An order was placed for continuous cardiac monitoring. The monitor shows a rate of 70 with atrial fibrilation rhythm interpreted by me 1320: Vital signs stable. Imaging shows that the patient is fluid overloaded. Labs show an elevated proBNP and high-sensitivity troponin. Total bilirubin 2.4. Patient be treated with Lasix. Patient's oxygen saturation did drop and the reports that he is supposed to wear oxygen at night but he usually does not. [facility] the [facility]. Impression & Plan Acute decompensated heart failure, Altered mental status Discharge Plan Visit Data Chief Complaint: Confusion Stated Complaint: CONFUSION ED Provider: Brodie Ramirez Discharge Problem: Acute decompensated heart failure, Altered mental status Patient Disposition: Admitted As Inpatient Forms Stand Alone Forms: My [facility] Prescriptions Prescriptions: No Action ferrous sulfate 325 mg (65 mg iron) tablet 325 mg PO QAM Rx Instructions: TAKE THIS MED WITH FOOD prednisone 5 mg Tablet 5 mg PO QAM Rx Instructions: 05/27/24 skilled nursing esomeprazole magnesium [Nexium] 40 mg Capsule,Delayed Release(Dr/Ec) 40 mg PO BID warfarin 5 mg Tablet 2.5 mg PO [id number] Patient Comments: no dose on saturday at current, all other days of week 2.5 mg Rx Instructions: 2.5mg SATURDAY/SATURDAY/SATURDAY/SATURDAY/SATURDAY/SATURDAY. SKIP SATURDAY DOSE. cyanocobalamin (vitamin B-12) [Vitamin B-12] 1,000 mcg Tablet 1,000 mcg PO QAM cholecalciferol (vitamin D3) [Vitamin D3] 25 mcg (1,000 unit) Tablet 25 mcg PO QAM rosuvastatin 10 mg Tablet 10 mg PO QPM spironolactone 25 mg tablet 12.5 mg PO QAM levothyroxine 125 mcg tablet 125 mcg PO DAILYBB zolpidem 5 mg tablet 5 mg PO HS PRN (Reason: restless leg syndrome) tamsulosin 0.4 mg capsule 0.4 mg PO QAM Referrals Referrals: Bell Mcqueen MD [Primary Care Provider] -
[2024-08-08 12:13] LABS: Alanine Aminotransferase 11 U/L (7-52); Albumin Level 3.8 gm/dl (3.4-5.0); Alkaline Phosphatase 86 U/L (34-104); Anion Gap 10 (3-11); Aspartate Aminotransferase 26 U/L (13-39); BUN Creatinine Ratio 29.4 (10-20); Bilirubin,Total 2.4 mg/dl (0.2-1.0); Blood Urea Nitrogen 55 mg/dl (6-23); Calcium 8.7 mg/dl (8.6-10.3); Carbon Dioxide 24 mmol/L (21-32); Chloride 102 mmol/L (98-107); Creatinine Clr Calc Pharmacy 22.2 ml/min; Est GFR (African American) 36.6 ml/min; Est GFR (Non-African American) 31.6 ml/min; Glucose 85 mg/dl (70-99(Fasting)); Magnesium 2.6 mg/dl (1.7-2.4); Sodium 136 mmol/L (136-145); Total Protein 6.6 gm/dl (6.0-8.3)
[2024-08-08 12:20] LABS: INR 2.2 (0.9-1.1); Partial Thromboplastin Ratio 1.1; Partial Thromboplastin Time 30 Seconds (21-31); Prothrombin Time 22.3 Seconds (9.0-12.0)
--- NOTE | 2024-08-08 12:21 | XRay Report ---
XR chest 1V portable HISTORY: 89 years-old Male Sepsis acute sepsis COMPARISON: 05/27/2024 TECHNIQUE: AP view of the chest FINDINGS: Cardiac silhouette is enlarged. Left subclavian pacer. Median sternotomy with cardiac valvular prosth esis. Interstitial pulmonary edema with small pleural effusions and mild bibasilar atelectasis. Calci fied pleural plaques again noted. Chronic right-sided rib fractures. IMPRESSION: 1. Cardiomegaly with interstitial pulmonary edema. 2. Small pleural effusions with mild bibasilar atelectasis. 3. Asbestos-related pleural disease. ACT 112: Negative or not required by law. The above report was generated using voice recognition software. It may contain grammatical, syntax o r spelling errors. Electronically signed by: Denys Wing M.D. 08/08/2024 12:19 PM
[2024-08-08 12:30] LABS: Troponin I High Sensitivity 29.6 pg/ml (0-20)
--- NOTE | 2024-08-08 12:36 | CT Scan Report ---
CT head/brain wo con CLINICAL HISTORY: 89 years-old Male with ams. Acutely altered mental status with sepsis TECHNIQUE: Multiple axial CT images of the head were obtained without contrast. A dose lowering tech nique was utilized adhering to the principles of ALARA. COMPARISON: 05/18/2024 FINDINGS: No acute intracranial hemorrhage, midline shift, intracranial mass, hydrocephalus, territorial ischem ia or abnormal extra-axial collection. Involutional changes with chronic microvascular ischemic disea se. Cerebral vascular calcifications. Chronic left cerebellar infarct. The calvarium is intact. Partially imaged polypoid mucosal thickening of the right axillary sinus. T race right mastoid effusion.. IMPRESSION: No acute intracranial abnormality. ACT 112: Negative or not required by law. The above report was generated using voice recognition software. It may contain grammatical, syntax o r spelling errors. Electronically signed by: Denys Wing M.D. 08/08/2024 12:35 PM
[2024-08-08 12:52] LABS: Adenovirus PCR Not Detected (NotDetected); Bordetella parapertussis PCR Not Detected (NotDetected); Bordetella pertussis PCR Not Detected (NotDetected); Chlamydia pneumoniae PCR Not Detected (NotDetected); Coronavirus 229E PCR Not Detected (NotDetected); Coronavirus CoV-2 (COVID19)PCR Not Detected (NotDetected); Coronavirus HKU1 PCR Not Detected (NotDetected); Coronavirus NL63 PCR Not Detected (NotDetected); Coronavirus OC43PCR Not Detected (NotDetected); Human Metapneumovirus PCR Not Detected (NotDetected); Influenza A PCR Not Detected (NotDetected); Influenza B PCR Not Detected (NotDetected); Mycoplasma pneumoniae PCR Not Detected (NotDetected); Parainfluenza Virus 1 PCR Not Detected (NotDetected); Parainfluenza Virus 2 PCR Not Detected (NotDetected); Parainfluenza Virus 3 PCR Not Detected (NotDetected); Parainfluenza Virus 4 PCR Not Detected (NotDetected); Respiratory Syncytial VirusPCR Not Detected (NotDetected); Rhinovirus/Enterovirus PCR Not Detected (NotDetected)
[2024-08-08 13:01] LABS: Basophils # (auto) 0.03 K/uL (0.00-0.20); Basophils % (auto) 0.6 %; Eosinophils # (auto) 0.04 K/uL (0.00-0.50); Eosinophils % (auto) 0.8 %; Hematocrit (blood only) 29.2 % (42.0-52.0); Hemoglobin 8.1 g/dl (14.0-18.0); Immature Granulocytes # (auto) 0.03 K/uL (0.01-0.20); Immature Granulocytes % (auto) 0.6 %; Lymphocytes # (auto) 0.43 K/uL (1.20-3.40); Lymphocytes % (auto) 8.7 %; Mean Corpuscular Hemoglobin 25.5 pg (25.0-34.0); Mean Corpuscular Hgb Conc 27.7 g/dL (32.0-36.0); Mean Corpuscular Volume 91.8 fL (80.0-100.0); Monocytes % (auto) 12.2 %; Neutrophils % (auto) 77.1 %; Platelet Count 97 K/uL (130-400); RDW Coefficient of Variation 18.1 % (11.5-14.5); RDW Standard Deviation 60.2 fL (36.4-46.3); Red Blood Count 3.18 M/uL (4.70-6.10); White Blood Count 4.93 K/ul (4.8-10.8)
--- NOTE | 2024-08-08 13:01 | CT Scan Report ---
ABDOMEN AND PELVIS CT WITHOUT CONTRAST CT DOSE: 1631.07 mGy.cm HISTORY: Acute hematuria hematuria TECHNIQUE: Multiaxial CT images of the abdomen and pelvis were performed without contrast. A dose lo wering technique was utilized adhering to the principles of ALARA. COMPARISON STUDY: 03/31/2024 FINDINGS: Cardiomegaly with median sternotomy. Partially imaged facial leads. Mitral and aortic valvular prosth esis. Small pleural effusions. Decreased attenuation of the cardiac blood pole compatible with anemia . Interstitial pulmonary edema with mild bibasilar mucous plugging and groundglass densities/atelecta sis. No free air. Spleen is enlarged, 13.8 cm. The liver is mildly enlarged with mild hepatic sedatives cy st. No liver mass is identified. Cholelithiasis. Unremarkable pancreas and adrenal glands. Scattered nonobstructing renal calculi measure up to approximately 3 mm bilaterally. 7 mm hyperdense focus in the interpolar left kidney is too small to characterize, possibly a complex cyst. No uretera l calculi or hydronephrosis. Urinary bladder wall thickening with perivesicular stranding. Prostatome ruth. 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 There is no lymphadenop athy identified. Distal esophageal wall thickening. Tiny hiatal hernia. Moderate-sized fundal diverticulum of the stom ach. There is diffuse gastric wall thickening. Moderate colonic fecal retention. Small amount of abdo minopelvic ascites. Prior partial colectomy. No small bowel obstruction. Sclerotic changes of the bon y pelvis redemonstrated. 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 IMPRESSION: 1. Nonobstructing bilateral nephrolithiasis. No ureteral calculi or hydronephrosis. 2. Prostamegaly with evidence of chronic outlet obstruction. 3. Moderate colonic fecal retention. No bowel obstruction. 4. Cholelithiasis. 5. Cardiomegaly with volume overload consisting of pulmonary edema, small pleural effusions with anas arca and small amount of ascites. 6. Nonspecific gastric wall thickening. Correlate clinically to exclude gastritis. ACT 112: Negative or not required by law. The above report was generated using voice recognition software. It may contain grammatical, syntax o r spelling errors. Electronically signed by: Denys Wing M.D. 08/08/2024 12:59 PM
--- NOTE | 2024-08-08 13:49 | History & Physical Report ---
Date of Service August 08, 2024 Assessment & Plan (1) Altered mental status: (2) Heart failure, diastolic, with acute decompensation: (3) Atrial fibrillation: (4) Tachy-pb syndrome: (5) Hematuria: (6) Restrictive lung disease: (7) Traumatic open wound of left lower leg: (8) Skin tear of upper extremity: (9) Status post aortic valve replacement: (10) Status post mitral valve repair: (11) History of prostate cancer: (12) Bladder cancer: (13) Nocturnal hypoxemia: (14) Stark's esophagus: Plan This is an 89yo M with PMH of PMH of atrial fibrillation on coumadin, HFpEF, pulm HTN, dyslipidemia, hypothyroidism, asthma, asbestos history with restrictive lung disease, nocturnal hypoxemia, history of bladder cancer BPH, CKD III, h/o aortic valve replacement, insomnia with Ambien use and other medical problems listed below who presented in ED with worsening confusion x 2 days. Acute metabolic/toxic encephalopathy Acute delirium Likely multifactorial given underlying memory impairment (no formal dementia diagnosis), insomnia no longer taking Ambien, non-compliance with supp oxygen HS Appears delirious during evaluation in ED Head CT without acute intracranial abnormality No infectious source seen in UA, resp viral panel, CT abd/pelvis, CXR Delirium precautions Trial of trazodone HS Family to remain at bedside as 1:1 Acute decompensated HF S/p aortic Valve replacement, Bovine valve Hx of mitral valve repair Non-compliance with diuretics at home, BNP 1901, HS trop 29.6 -> 28.4 CXR with cardiomegaly with interstitial pulmonary edema. Small pleural effusions with mild bibasilar atelectasis Most recent 2D echo from January 2024 with preserved EF 55-60%, mod. concentric LVH, moderate MS, mild mitral and tricuspid regurg. 60%, Right ventricular systolic pressure elevated to be 50-60 mmHg Given 40mg IV lasix in ED Plan to continue 40mg IV lasix daily Routine cards consult, consider nephro involvement if renal function worsens Strict I&Os, daily weights CKD III-IV Cr 1.87 (baseline mid-high 1s). Monitor closely Persistent atrial fibrillation Rate controlled Continue coumadin for anticoagulation INR 2.2, monitor Moderate persistent asthma COPD Nocturnal Hypoxemia At baseline Continue home inhalers, baseline 2L HS Gastric polyp Anemia of chronic disease, underwent EGD in May with gastric polyp noted as possible bleeding source, also with Barretts. Due for [place] [facility] [place] Anemia of chronic disease, RAFAEL Hgb 8.1 (baseline). Continue daily iron supplement Monitor CBC Constipation Moderate colonic fecal retention on CT a/p. Bowel regimen Hx Tachy/Pb Syndrome S/p Pacemaker Posterior LLE wound Following with wound care, does not appear infected. 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 Ruano. Please see addendum. I spent a total of 80 minutes coordinating, documenting, and providing care for this patient excluding time spent in the performance of separately billed services. History of Present Illness Chief Complaint: confusion, volume overload Primary Care Provider: Bell Mcqueen MD This is an 89yo M with PMH of PMH of atrial fibrillation on coumadin, HFpEF, pulm HTN, dyslipidemia, hypothyroidism, asthma, asbestos history with restrictive lung disease, nocturnal hypoxemia, history of bladder cancer BPH, CKD III, h/o aortic valve replacement, insomnia with Ambien use and other medical problems listed below who presented in ED with worsening confusion x 2 days. History obtained per chart review and family at bedside due to patient's altered status. Patient is reportedly A&O to self and place at baseline but but has been more confused over the past 2 days, particularly at night. PCP stopped Ambien a month ago thinking that it was possibly contributing to patient's confusion, which initially seemed to help improve patient's mentation. However, over the past 2 weeks patient has had worsened insomnia and has been up moving around during the night, getting dressed, etc. Last evening trialed 2.5mg melatonin but patient seemed to become even more confused, talking to himself and even getting up during the night to wash his clothing in the sink. Has been noncompliant with Lasix the past few days and last dose was reportedly given on Saturday. Is up 5 pounds, per . Most recent 2D echo from January 2024 with preserved EF 55-60%, moderate concentric LVH, moderate MS, mild mitral and tricuspid regurg. 60%, Right ventricular systolic pressure elevated to be 50-60 mmHg. + Increased BLE edema noted yesterday Patient recently underwent cystoscopy for history of bladder cancer on surveillance and noted to have some varices and bladder that may need to be cauterized, per , depending on whether or not the bleeding stops. Had this procedure 4 days ago and has had hematuria since. Also with history of anemia and found to have a gastric polyp in May with follow-up EGD scheduled in [place] on 08/27. Is still on Coumadin for history of A-fib. Patient also follows with wound care for multiple skin tears and a wound on posterior aspect of left leg that was dressed a few days ago. Patient denies any pain. No fever. Unable to obtain remainder of ROS due to confusion. Allergies Allergy/AdvReac Type Severity Reaction Status Date / Time Penicillins Allergy Unknown RASH/EL-ORBITAL Verified 08/08/24 14:53 EDEMA olanzapine [From Zyprexa] AdvReac Severe Agitated Verified 08/08/24 14:53 zolpidem [From Ambien] AdvReac Severe Hallucinati Unverified 08/08/24 14:53 ng Home Medications Medication Instructions Recorded Confirmed Type esomeprazole magnesium 40 mg 40 mg PO BID 03/25/19 08/08/24 History capsule,delayed release (Nexium) prednisone 5 mg tablet 5 mg PO QAM 03/25/19 08/08/24 History warfarin 5 mg tablet 2.5 mg PO [id number] 03/25/19 08/08/24 History ferrous sulfate 325 mg (65 mg 325 mg PO QAM 04/25/21 08/08/24 History iron) tablet levothyroxine 125 mcg tablet 125 mcg PO UD 01/23/24 08/08/24 History spironolactone 25 mg tablet 12.5 mg PO QAM 01/23/24 08/08/24 History tamsulosin 0.4 mg capsule 0.4 mg PO QAM 01/23/24 08/08/24 History cholecalciferol (vitamin D3) 25 25 mcg PO QAM 03/31/24 08/08/24 History mcg (1,000 unit) tablet (Vitamin D3) cyanocobalamin (vitamin B-12) 1,000 mcg PO QAM 03/31/24 08/08/24 History 1,000 mcg tablet (Vitamin B-12) rosuvastatin 10 mg tablet 10 mg PO QPM 05/18/24 08/08/24 History albuterol sulfate 90 mcg/actuation 2 puff inhalation Q4H PRN 08/08/24 08/08/24 History aerosol inhaler Shortness Of Breath Or Wheezing coenzyme Q10 100 mg capsule 200 mg PO DAILY 08/08/24 08/08/24 History (CoQ-10) fluticasone propionate 50 1 spray intranasal DAILY 08/08/24 08/08/24 History mcg/actuation nasal spray,suspension ipratropium bromide 0.02 % 2.5 ml inhalation QID PRN 08/08/24 08/08/24 History solution for inhalation Shortness Of Breath Or Wheezing magnesium 250 mg tablet 250 mg PO DAILY 08/08/24 08/08/24 History Past Med/Surg History Problem List Heart failure, diastolic, with acute decompensation Altered mental status (Acute) Skin tear of upper extremity Traumatic open wound of left lower leg (Acute) Chronic venous insufficiency Abnormal ankle brachial index (Acute) Elevated lactic acid level (Acute) Anemia Heme positive stool Epididymitis Persistent atrial fibrillation Acute on chronic diastolic CHF (congestive heart failure) Weakness (Acute) AMS (altered mental status) (Acute) CHF (congestive heart failure) (Acute) Acute metabolic encephalopathy Nocturnal hypoxemia Acute kidney injury superimposed on CKD Acute decompensated heart failure (Acute) Testicular discomfort (Acute) Spermatocele of epididymis, single (Chronic) Community acquired pneumonia (Acute) Congestive heart failure (Acute) Moderate mitral stenosis Pneumonia Mitral stenosis and aortic insufficiency Pulmonary edema cardiac cause RSV (respiratory syncytial virus infection) Metabolic acidosis Acute respiratory failure with hypoxia and hypercarbia Encounter for pre-operative examination Lumbar spondylosis Low back pain Bladder cancer Pacemaker Asthma Chronic steroid use Atrial fibrillation DX 2004 - ON WARFARIN; follows with Dr. Rainey Status post mitral valve repair Status post aortic valve replacement "bioprosthetic" CKD (chronic kidney disease), stage III History of prostate cancer "had elevated PSA with + biopsy, but repeat biopsies and subsequent PSA's improved" On 11/18/16 10:00 Randy Gilbert wrote "2007" Osteoarthritis Medical History Restrictive lung disease Enlarged prostate Elevated troponin level (05/18/24) notes elevated troponin level ad mn ed visit. Reports she did message cardiology regarding and no response as of current. Anemia reports iron deficiency anemia. Asthma not sure on official dx details. History of respiratory failure (12/2023) History of encephalopathy (03/2024) Hx of bladder cancer (05/2021) TURBT, chemo + radiation Nocturnal hypoxemia oxygen prn 2L [place] (hard of hearing) High cholesterol History of elevated PSA Osteoarthritis CKD (chronic kidney disease), stage III History of pulmonary edema History of pericarditis (2022) Moderate mitral stenosis "some calcification there" - told valve was working okay. History of RSV infection (12/2023) and hx respiratory failure Dec 2023 History of pneumonia (12/2023) Hypothyroid Persistent atrial fibrillation History of CHF (congestive heart failure) (03/2024) Cellulitis dx 05/18/24 left leg - mn ed. Hematuria current: messaged urology regarding. Reports was told do colonoscopy/egd first then will follow up. Hx cystoscopy march 2024 and was clear. History of basal cell carcinoma History of rectal fissure History of COVID-19 DX'D 10/2020 [facility]RU [facility] [place]-SOB, PRODUCTIVE COUGH, BODY ACHES, FEVER-RECOVERED AT HOME-SYMPTOMS RESOLVED SOB (shortness of breath) on exertion Arthritis Anticoagulated on Coumadin Heart disease Stark's esophagus GERD (gastroesophageal reflux disease) History of pulmonary embolism (2013) FOLLOWING SHOULDER SURGERY APPROX 2014 -NO ISSUES SINCE Tachy-pb syndrome part of reason for pacemaker, pt unsure if occurs at current. History of atrial flutter Restless legs syndrome Dyslipidemia Carotid artery disease pt is unsure about this. Nothing has ever been talked about regarding. Spinal stenosis of lumbar region History of paroxysmal supraventricular tachycardia BPH (benign prostatic hypertrophy) Diverticular disease of colon COPD (chronic obstructive pulmonary disease) pt not sure about official dx of. Hypertension Surgical History History of aortic valve replacement (2003) History of mitral valve repair (2003) [facility]. History of cardiac radiofrequency ablation x2 most recent approx 2013. History of right cataract surgery History of left cataract surgery Pacemaker TACHY-PB SYNDROME. ALSO HX OF A-FIB. LAST CHECKED within 2023 - [facility] History of bladder surgery TURBT 05/29/2021 [facility] History of esophagogastroduodenoscopy (EGD) MULTIPLE History of tonsillectomy History of total knee replacement LEFT KNEE History of herniorrhaphy History of surgery MOHS PROCEDURE ON FACE History of colonoscopy History of bowel resection S/T DIVERTICULITIS History of arthroscopy B/L SHOULDERS Status post inguinal hernia repair Family History Brother Diabetes Cancer Esophageal Cancer Mother Colorectal cancer Lung cancer Social History Smoking Status: Never smoker Tobacco Type: Smokeless Tobacco (Dip or Chew) Cigarettes Per Day: 0; Second Hand Exposure: No; Do You Dip or Chew Tobacco: Yes (1 can lasts a few days/advised); Hx Alcohol Use: No Hx Substance Use: No Preferred Language: Yoruba Communication Ability: Effective Communication Ability Comment: pt is ute, pt does phone interview. Visual Impairment: Limited Hearing Ability: Hard of Hearing Pest Management Supervisor Required: No Beliefs That Will Affect Care: None marital status: Current Living Situation: Spouse Current Living Situation Comment: home with current occupational status: retired Other Information That Helps Us Care for You: No Feels Safe at Home: Yes Safety Concerns: Feels Safe At This Time Diet: regular caffeine: No during the past year weight has: remained stable Physical Activity Frequency: Other Physical Activity Frequency Comment: "Does alot of yard work" Assistive Devices: Glasses and Hearing Aid - Bilateral Review of Systems Review of Systems: Unobtainable due to cognitive status Physical Exam Physical Exam: General Appearance: WD/WN, vitals as above, NAD, sitting up in bed, pleasant but delirious Head: normocephalic, atraumatic, + Left dressing on cheek c/d/i Eyes: normal inspection, PERRL, conjunctivae normal, anicteric sclerae ENT: external ear and nose normal, oropharynx normal Neck: normal visual inspection Respiratory: normal respiratory effort, bibasilar rales Cardiovascular: irregular rate & rhythm, normal peripheral pulses, 1+ BLE edema Chest: normal inspection of chest Abdomen/GI: normal bowel sounds, soft, nontender, no hepatosplenomegaly Extremities/Musculoskeletal: no cyanosis or clubbing, extremities motor strength 5/5 Neurologic: PERRL, EOMI, accommodation nl, no face palsy, no dysarthria, CN's II-XI intact bilaterally and moves all extremities Psychiatric: +delirious Skin: no rashes, normal color, warm/dry. + Posterior LLE wound without drainage, no surrounding erythema, skin tears BUE with dressings in place Results & Data Results & Data Vital Signs (Past 12 Hours) Vital Signs Temp Pulse Resp BP Pulse Ox O2 Del Method 08/08/24 11:30 72 18 125/55 L 95 08/08/24 11:30 74 17 96 08/08/24 11:30 78 20 92 Room Air 08/08/24 11:26 74 08/08/24 11:25 110/71 08/08/24 11:24 74 19 97 08/08/24 11:06 36.6 C 76 18 105/64 95 Room Air 08/08/24 10:57 92 Room Air Laboratory Results Short CBC 08/08/24 08/08/24 Range/Units 11:31 12:41 WBC Cancelled 4.93 Hgb Cancelled 8.1 L Hct Cancelled 29.2 L Plt Count Cancelled 97 L BMP 08/08/24 11:31 Sodium 136 Potassium 5.0 Chloride 102 Carbon Dioxide 24 BUN 55 H Creatinine 1.87 H Glucose 85 Calcium 8.7 Liver Function 08/08/24 Range/Units 11:31 Total Bilirubin 2.4 H (0.2-1.0) mg/dl Direct Bilirubin TNP AST 26 (13-39) U/L ALT 11 (7-52) U/L Alkaline Phosphatase 86 (34-104) U/L Albumin 3.8 (3.4-5.0) gm/dl Urine 08/08/24 Range/Units 11:16 Urine Color Dark Yellow Urine Appearance Clear (Clear) Urine pH 6.0 (4.5-7.5) Ur Specific [place] 1.023 (1.000-1.030) Urine Protein 2+ H (Negative) Urine Glucose (UA) Negative (Negative) Diagnostic Findings Chest X-Ray 08/08/24 11:30 XR chest 1V portable HISTORY: 89 years-old Male Sepsis acute sepsis COMPARISON: 05/27/2024 TECHNIQUE: AP view of the chest FINDINGS: Cardiac silhouette is enlarged. Left subclavian pacer. Median sternotomy with cardiac valvular prosthesis. Interstitial pulmonary edema with small pleural effusions and mild bibasilar atelectasis. Calcified pleural plaques again noted. Chronic right-sided rib fractures. IMPRESSION: 1. Cardiomegaly with interstitial pulmonary edema. 2. Small pleural effusions with mild bibasilar atelectasis. 3. Asbestos-related pleural disease. ACT 112: Negative or not required by law. The above report was generated using voice recognition software. It may contain grammatical, syntax or spelling errors. Electronically signed by: Denys Wing M.D. 08/08/2024 12:19 PM Abdomen/Pelvis CT 08/08/24 11:[address] WITHOUT CONTRAST CT DOSE: 1631.07 mGy.cm HISTORY: Acute hematuria hematuria TECHNIQUE: Multiaxial CT images of the abdomen and pelvis were performed without contrast. A dose lowering technique was utilized adhering to the principles of ALARA. COMPARISON STUDY: 03/31/2024 FINDINGS: Cardiomegaly with median sternotomy. Partially imaged facial leads. Mitral and aortic valvular prosthesis. Small pleural effusions. Decreased attenuation of the cardiac blood pole compatible with anemia. Interstitial pulmonary edema with mild bibasilar mucous plugging and groundglass densities/atelectasis. No free air. Spleen is enlarged, 13.8 cm. The liver is mildly enlarged with mild hepatic sedatives cyst. No liver mass is identified. Cholelithiasis. Unremarkable pancreas and adrenal glands. Scattered nonobstructing renal calculi measure up to approximately 3 mm bilaterally. 7 mm hyperdense focus in the interpolar left kidney is too small to characterize, possibly a complex cyst. No ureteral calculi or hydronephrosis. Urinary bladder wall thickening with perivesicular stranding. Prostatomegaly. 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 There is no lymphadenopathy identified. Distal esophageal wall thickening. Tiny hiatal hernia. Moderate-sized fundal diverticulum of the stomach. There is diffuse gastric wall thickening. Moderate colonic fecal retention. Small amount of abdominopelvic ascites. Prior partial colectomy. No small bowel obstruction. Sclerotic changes of the bony pelvis red emonstrated. 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 IMPRESSION: 1. Nonobstructing bilateral nephrolithiasis. No ureteral calculi or hydronephrosis. 2. Prostamegaly with evidence of chronic outlet obstruction. 3. Moderate colonic fecal retention. No bowel obstruction. 4. Cholelithiasis. 5. Cardiomegaly with volume overload consisting of pulmonary edema, small pleural effusions with anasarca and small amount of ascites. 6. Nonspecific gastric wall thickening. Correlate clinically to exclude gastritis. ACT 112: Negative or not required by law. The above report was generated using voice recognition software. It may contain grammatical, syntax or spelling errors. Electronically signed by: Denys Wing M.D. 08/08/2024 12:[address] 08/08/24 11:31 CT head/brain wo con CLINICAL HISTORY: 89 years-old Male with ams. Acutely altered mental status with sepsis TECHNIQUE: Multiple axial CT images of the head were obtained without contrast. A dose lowering technique was utilized adhering to the principles of ALARA. COMPARISON: 05/18/2024 FINDINGS: No acute intracranial hemorrhage, midline shift, intracranial mass, hydrocephalus, territorial ischemia or abnormal extra-axial collection. Involutional changes with chronic microvascular ischemic disease. Cerebral vascular calcifications. Chronic left cerebellar infarct. The calvarium is intact. Partially imaged polypoid mucosal thickening of the right axillary sinus. Trace right mastoid effusion.. IMPRESSION: No acute intracranial abnormality. ACT 112: Negative or not required by law. The above report was generated using voice recognition software. It may contain grammatical, syntax or spelling errors. Electronically signed by: Denys Wing M.D. 08/08/2024 12:35 PM ECG Additional Comments: EKG reviewed: a fib with HR in 70s, no ST elevation Supervising Physician Co-Signing Physician Notes Pt was seen and examined by myself, Ainsley Ruano MD on the day of service. Care was coordinated with Darling Bautista PA-C. 89-year-old male presenting from home with acute on chronic episodes of confusion. Also found to be in decompensated heart failure. On exam and other family member present in the room, providing most of the history. 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 However nothing else has been out of the ordinary. At the time of exam patient having port accessed, agitated and trying to get out of bed. Left ear with some visible erythema and stitches present. Family members assisting with keeping him calm and requesting to stay overnight for possible hospital delirium as they note this is happened in the past. Infectious workup with UA, abdominal CT, chest x-ray, [employer] all negative. head CT unremarkable Delirium precautions If symptoms persist consider neurology evaluation For CHF continue with IV Lasix 40 mg daily noted patient with CKD. Consult cardiology for acute exacerbation, consider nephrology consult as well given need for diuresis with chronic kidney disease. Otherwise as above. I spent a total [id number] coordinating, documenting, and providing care for this patient excluding time spent in the performance of separately billed services (7) Traumatic open wound of left lower leg Encounter type: subsequent encounter Qualified Code(s): S81.802D - Unspecified open wound, left lower leg, subsequent encounter
[2024-08-08] MEDS: FUROSEMIDE 40 MG/4 ML VIAL IV ONE (14:06)
[2024-08-08] MEDS ORDERED: IPRATROPIUM BROMIDE NEB SOLN 0.02% 0.5MG/2.5ML VIAL INH PRN (15:39)
[2024-08-08] MEDS ORDERED: ALBUTEROL HFA 8 GM INHALER INH PRN (15:39)
[2024-08-08] MEDS ORDERED: LEVOTHYROXINE SODIUM 125 MCG TABLET PO SCH (15:45)
[2024-08-08] MEDS ORDERED: ACETAMINOPHEN 325 MG TAB PO PRN (16:16)
[2024-08-08] MEDS ORDERED: ONDANSETRON INJ 2 MG/ML 2 ML VIAL IV PRN (16:16)
[2024-08-08] MEDS: WARFARIN SOD 2.5 MG TAB PO SCH (17:06)
[2024-08-08] MEDS: PANTOprazole 40 MG TAB PO SCH (20:11)
[2024-08-08] MEDS: ROSUVASTATIN CALCIUM 10 MG TAB PO SCH (20:11)
[2024-08-08] MEDS: traZODone HCL 50 MG TAB PO SCH (20:11)
[2024-08-09] MEDS: LEVOTHYROXINE SODIUM 125 MCG TABLET PO SCH (07:07)
[2024-08-09 08:01] LABS: Hematocrit (blood only) 27.3 % (42.0-52.0); Hemoglobin 7.7 g/dl (14.0-18.0); Mean Corpuscular Hemoglobin 25.8 pg (25.0-34.0); Mean Corpuscular Hgb Conc 28.2 g/dL (32.0-36.0); Mean Corpuscular Volume 91.6 fL (80.0-100.0); Mean Platelet Volume 11.4 fL (9.4-12.4); Platelet Count 95 K/uL (130-400); RDW Coefficient of Variation 17.7 % (11.5-14.5); RDW Standard Deviation 58.8 fL (36.4-46.3); Red Blood Count 2.98 M/uL (4.70-6.10); White Blood Count 3.32 K/ul (4.8-10.8)
[2024-08-09 08:20] LABS: INR 2.1 (0.9-1.1); Prothrombin Time 21.1 Seconds (9.0-12.0)
[2024-08-09 08:32] LABS: BUN Creatinine Ratio 30.4 (10-20); Creatinine Clr Calc Pharmacy 25.9 ml/min; Est GFR (African American) 41.7 ml/min; Magnesium 2.4 mg/dl (1.7-2.4); Potassium 3.9 mmol/L (3.5-5.1)
[2024-08-09] MEDS: predniSONE 5 MG TAB PO SCH (08:39)
[2024-08-09] MEDS: FERROUS SULFATE 325 MG TAB PO SCH (08:39)
[2024-08-09] MEDS: CYANOCOBALAMIN (B-12) 500 MCG TABLET PO SCH (08:39)
[2024-08-09] MEDS: FLUTICASONE PROPIONATE NA SPR 16 GM BTL NAE SCH (08:39)
[2024-08-09] MEDS: CHOLECALCIFEROL 25 MCG (1000 UNITS) TAB PO SCH (08:39)
[2024-08-09] MEDS: TAMSULOSIN HCL 0.4 MG CAP PO SCH (08:39)
[2024-08-09] MEDS ORDERED: MAGNESIUM OXIDE 400 MG TAB PO SCH (09:00)
--- NOTE | 2024-08-09 09:31 | Cardiology Consultation ---
Date of Consultation August 09, 2024 Assessment & Plan (1) Altered mental status: (2) Anemia: (3) Persistent atrial fibrillation: (4) Acute on chronic diastolic CHF (congestive heart failure): Plan Assessment: 89 year old male admitted for acute onset confusion, hematuria and concerns of volume overload. Plan: Altered mental status: -multifactorial, CT head negative for acute process. UA, resp viral panel and chest xray negative for infectious process. -Continued management per primary team. Anemia -Hematuria-Follows with Dr. Louis and urology due to papillary urothelial carcinoma-Recent cystoscopy with varicosities at the bladder neck. Monitor H/H closely, if labs would not improve or hematuria persist, would recommend consulting urology. -Known gastric polyp as possible bleeding source, Due for repeat EGD at [facility] [place] -Anemia of chronic disease, receives Procrit injections. current Hgb 7.7. Continued management per primary team. Persistent A-fib: Rate controlled. Continue Warfarin at this time. Close monitoring of labs Acute on Chronic diastolic HF -Received IV Lasix 40mg this morning and an additional 10mg x1 dose after seeing nephrology. Current plan is to continue Furosemide 20mg IV BID -Strict I&O, daily weights and labs. -Weights by standing scale -Close monitoring of renal function and serum electrolytes. Goal Serum K> 4.0 and Serum Mag > 2.0. Will continue to follow. Case has been discussed with Dr. Cardoso. Further recommendations regarding plan of care as per her assessment. I spent a total of 40 minutes on the date of service in preparation, delivery, documentation of the care provided to the patient excluding any time spent in the performance of separately billed services. JASON Tanner [facility] Supervising Physician Co-Signing Physician Notes I have reviewed the advanced practitioner's documentation on the date of service referenced in note, and I agree with, and take responsibility for the plan of care. I spent a total of [30] minutes coordinating, documenting, and providing care for this patient excluding time spent in the performance of separately billed services or time spent by another provider. 89-year-old male with known history of heart failure with preserved ejection fraction., Echocardiogram January 2024 moderate mitral stenosis mild mitral regurgitation bioprosthetic arctic valve with normal function' atrial fibrillation, anemia. Has been admitted 3 times this year for heart failure. As per patient is reluctant to take his diuretics because of increased urinary frequency. She has Lasix and also torsemide at home giving them as needed. Also eats salty food dietary noncompliance. Continue with IV diuretics Low-salt diet Daily weights History of Present Illness Reason for Consultation: HPI: decompensated HFpEF Requesting Physician: Eugenia fenton Attending Physician: Olena Argueta MD History of Present Illness HPI: Patient is a 89 year old male with extensive PMHx as listed below that presents to the ED with worsening confusion x2 days, worse at night. Per family, patient had been non-compliant with his Lasix the past few days. Also of note, patient had recently underwent a cystoscopy for hx of bladder cancer and was noted to have some varices that may need to be cauterized if the bleeding does not stop. He's had 4 days of hematuria since procedure. Family present at time of visit, and arrived during exam. She states that patient compliance with his diet and diuretics is a constant fight. He often will try to refuse his diuretic, and will consume salty foods if she is not strictly watching. She reports that he will have some small bouts of confusion at times, but nothing like these past few days, extremely confused and odd behaviors. Example: caught "washing his clothes in the sink". Family also notes that that patient had an EGD with noted polyp, they had mentioned that blood was noted around the polyp, but no intervention was needed at that time. ROS limited due to cognitive status/confusion. Denies chest pain, pressure, palpitations. Does not demonstrate increased work of breathing of dyspnea. EKG on admission listed as undetermined, but patient is a V-paced rhythm with underlying bigeminy. rate 73bpm When compared with prior study. hx of chronic A- fib. H/H 7.7/27.[address]: Negative CT ABD/Pelvis: IMPRESSION: 1. Nonobstructing bilateral nephrolithiasis. No ureteral calculi or hydronephrosis. 2. Prostamegaly with evidence of chronic outlet obstruction. 3. Moderate colonic fecal retention. No bowel obstruction. 4. Cholelithiasis. 5. Cardiomegaly with volume overload consisting of pulmonary edema, small pleural effusions with anasarca and small amount of ascites. 6. Nonspecific gastric wall thickening. Correlate clinically to exclude gastritis. Chest X-Ray: IMPRESSION: 1. Cardiomegaly with interstitial pulmonary edema. 2. Small pleural effusions with mild bibasilar atelectasis. 3. Asbestos-related pleural disease. Cardiac Hx: 1. Valvular heart disease, status post aortic valve replacement and mitral valve repair, 2003, with [place] aortic valve bioprosthesis and a 28 mm [place] mitral valve annular ring. 2. Persistent atrial fibrillation/flutter, status post flutter ablation in 2006 and December 2014, with now persistent atrial fibrillation flutter 3. Mild intrinsic prosthetic aortic valve stenosis, moderate mitral stenosis, post surgical 4. 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 Hypertension. 6. Hyperlipidemia. 7. Chronic arthritic disease, chronic prednisone suppression. 8. Complicated shoulder surgery, September 2014, with bleeding and subsequent hypercoagulable state with pulmonary embolus. 9. 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 10. Status post partial colectomy, 08/08/2015. 11. Chronic anemia receiving iron infusions 12. Bladder carcinoma, 13. Hypothyroidism. Allergies Allergy/AdvReac Type Severity Reaction Status Date / Time Penicillins Allergy Unknown RASH/EL-ORBITAL Verified 08/08/24 14:53 EDEMA olanzapine [From Zyprexa] AdvReac Severe Agitated Verified 08/08/24 14:53 zolpidem [From Ambien] AdvReac Severe Hallucinati Unverified 08/08/24 14:53 ng Home Medications Medication Instructions Recorded Confirmed Type esomeprazole magnesium 40 mg 40 mg PO BID 03/25/19 08/08/24 History capsule,delayed release (Nexium) prednisone 5 mg tablet 5 mg PO QAM 03/25/19 08/08/24 History warfarin 5 mg tablet 2.5 mg PO 6XWK 03/25/19 08/08/24 History ferrous sulfate 325 mg (65 mg 325 mg PO QAM 04/25/21 08/08/24 History iron) tablet levothyroxine 125 mcg tablet 125 mcg PO UD 01/23/24 08/08/24 History spironolactone 25 mg tablet 12.5 mg PO QAM 01/23/24 08/08/24 History tamsulosin 0.4 mg capsule 0.4 mg PO QAM 01/23/24 08/08/24 History cholecalciferol (vitamin D3) 25 25 mcg PO QAM 03/31/24 08/08/24 History mcg (1,000 unit) tablet (Vitamin D3) cyanocobalamin (vitamin B-12) 1,000 mcg PO QAM 03/31/24 08/08/24 History 1,000 mcg tablet (Vitamin B-12) rosuvastatin 10 mg tablet 10 mg PO QPM 05/18/24 08/08/24 History albuterol sulfate 90 mcg/actuation 2 puff inhalation Q4H PRN 08/08/24 08/08/24 History aerosol inhaler Shortness Of Breath Or Wheezing coenzyme Q10 100 mg capsule 200 mg PO DAILY 08/08/24 08/08/24 History (CoQ-10) fluticasone propionate 50 1 spray intranasal DAILY 08/08/24 08/08/24 History mcg/actuation nasal spray,suspension ipratropium bromide 0.02 % 2.5 ml inhalation QID PRN 08/08/24 08/08/24 History solution for inhalation Shortness Of Breath Or Wheezing magnesium 250 mg tablet 250 mg PO DAILY 08/08/24 08/08/24 History furosemide 40 mg tablet 40 mg PO 3XWK 08/09/24 08/09/24 History torsemide 100 mg tablet 50 mg 3XD PRN Edema 08/09/24 08/09/24 History Patient History Medical History Restrictive lung disease Enlarged prostate Elevated troponin level (05/18/24) notes elevated troponin level ad mn ed visit. Reports she did message cardiology regarding and no response as of current. Anemia reports iron deficiency anemia. Asthma not sure on official dx details. History of respiratory failure (12/2023) History of encephalopathy (03/2024) Hx of bladder cancer (05/2021) TURBT, chemo + radiation Nocturnal hypoxemia oxygen prn 2L [place] (hard of hearing) High cholesterol History of elevated PSA Osteoarthritis CKD (chronic kidney disease), stage III History of pulmonary edema History of pericarditis (2022) Moderate mitral stenosis "some calcification there" - told valve was working okay. History of RSV infection (12/2023) and hx respiratory failure Dec 2023 History of pneumonia (12/2023) Hypothyroid Persistent atrial fibrillation History of CHF (congestive heart failure) (03/2024) Cellulitis dx 05/18/24 left leg - al ed. Hematuria current: messaged urology regarding. Reports was told do colonoscopy/egd first then will follow up. Hx cystoscopy march 2024 and was clear. History of basal cell carcinoma History of rectal fissure History of COVID-19 DX'D 10/2020 THRU [facility]-SOB, PRODUCTIVE COUGH, BODY ACHES, FEVER-RECOVERED AT HOME-SYMPTOMS RESOLVED SOB (shortness of breath) on exertion Arthritis Anticoagulated on Coumadin Heart disease Stark's esophagus GERD (gastroesophageal reflux disease) History of pulmonary embolism (2013) FOLLOWING SHOULDER SURGERY APPROX 2013 -NO ISSUES SINCE Tachy-pb syndrome part of reason for pacemaker, pt unsure if occurs at current. History of atrial flutter Restless legs syndrome Dyslipidemia Carotid artery disease pt is unsure about this. Nothing has ever been talked about regarding. Spinal stenosis of lumbar region History of paroxysmal supraventricular tachycardia BPH (benign prostatic hypertrophy) Diverticular disease of colon COPD (chronic obstructive pulmonary disease) pt not sure about official dx of. Hypertension Surgical History History of aortic valve replacement (2003) History of mitral valve repair (2003) [facility]. History of cardiac radiofrequency ablation x2 most recent approx 2013. History of right cataract surgery History of left cataract surgery Pacemaker TACHY-PB SYNDROME. ALSO HX OF A-FIB. LAST CHECKED within 2023 - [facility] History of bladder surgery TURBT 05/29/2021 [facility] History of esophagogastroduodenoscopy (EGD) MULTIPLE History of tonsillectomy History of total knee replacement LEFT KNEE History of herniorrhaphy History of surgery MOHS PROCEDURE ON FACE History of colonoscopy History of bowel resection S/T DIVERTICULITIS History of arthroscopy B/L SHOULDERS Status post inguinal hernia repair Family History Brother Diabetes Cancer Esophageal Cancer Mother Colorectal cancer Lung cancer Social History Smoking Status: Never smoker Tobacco Type: Smokeless Tobacco (Dip or Chew) Cigarettes Per Day: 0; Second Hand Exposure: No; Do You Dip or Chew Tobacco: Yes (1 can lasts a few days/advised); Hx Alcohol Use: No Hx Substance Use: No Preferred Language: Citizen Of [place] Communication Ability: Effective Communication Ability Comment: pt is [place], pt does phone interview. Visual Impairment: Limited Hearing Ability: Hard of Hearing Wheelchair Rental Clerk Required: No Beliefs That Will Affect Care: None marital status: Current Living Situation: Spouse Current Living Situation Comment: home with current occupational status: retired Other Information That Helps Us Care for You: No Feels Safe at Home: Yes Safety Concerns: Feels Safe At This Time Diet: regular caffeine: No during the past year weight has: remained stable Physical Activity Frequency: Other Physical Activity Frequency Comment: "Does alot of yard work" Assistive Devices: Glasses and Hearing Aid - Bilateral Review of Systems Review of Systems: Other limited due to cognitive status/confusion see HPI Physical Exam Constitutional: well developed and well nourished; no acute distress and not ill appearing Neck: normal visual inspection and trachea midline Respiratory: normal respiratory effort; no respiratory distress, no labored br eathing and no cough Auscultation: + diminished lung sounds (bilateral bases ) and + wheezes (faint exp wheeze appreciated RUL ); no crackles, no rales and no rhonchi Cardiovascular: Rate/Rhythm: + irregularly irregular Heart Sounds: normal S1 and normal S2 Vessels: dorsalis pedis pulses present; no JVD Extremities: + edema (+1 BLE) Skin: no rashes, warm and dry Psychiatric: Orientation: alert; + not oriented x 3 (disoriented ) Results & Data Vital Signs (Past 12 Hours) Vital Signs Temp Pulse Pulse Resp BP Pulse Ox O2 Del Method 08/09/24 07:49 36.4 C L 65 18 110/64 100 Nasal Cannula 08/09/24 07:14 64 08/08/24 23:00 60 08/08/24 22:45 36.5 C 60 18 100/52 L 92 Nasal Cannula O2 Flow Rate 08/09/24 07:49 3 08/09/24 07:14 08/08/24 23:00 08/08/24 22:45 2 Laboratory Results Coagulation 08/09/24 Range/Units 07:34 PT 21.1 H (9.0-12.0) Seconds CBC 08/09/24 Range/Units 07:34 WBC 3.32 L (4.8-10.8) K/ul RBC 2.98 L (4.70-6.10) M/uL Hgb 7.7 L (14.0-18.0) g/dl Hct 27.3 L (42.0-52.0) % Plt Count 95 L (130-400) K/uL Comprehensive Metabolic Panel 08/09/24 Range/Units 07:34 Sodium 137 (136-145) mmol/L Potassium 3.9 D (3.5-5.1) mmol/L Chloride 104 (98-107) mmol/L Carbon Dioxide 27 (21-32) mmol/L BUN 51 H (6-23) mg/dl Creatinine 1.68 H (0.6-1.4) mg/dl Glucose 73 (70-99(Fasting)) mg/dl Calcium 8.0 L (8.6-10.3) mg/dl Intake and Output 08/09/24 08/09/24 08/09/24 06:59 14:59 22:59 Intake Total 660 / 660 Output Total 800 / 1150 700 / 700 Balance -800 / -1150 -40 / -40 Intake: Oral 660 / 660 Output: Urine 300 / 300 Urine Amount (Catheter) 800 / 800 400 / 400 External 800 / 800 400 / 400 Other: Other Intake Source sips Weight 65 kg Weight Measurement Method Built in [facility]
[2024-08-09] MEDS: FUROSEMIDE 40 MG/4 ML VIAL IV SCH (09:39)
--- NOTE | 2024-08-09 11:36 | Nephrology Consultation ---
Date of Consultation August 09, 2024 Assessment & Plan (1) Heart failure, diastolic, with acute decompensation: He has significant valvular HF but takes his diuretics somewhat infrequently b/c dislikes urinary frequency >> takes lasix 20 mg 1-2 times weekly tells me (not on admission med list); takes spironolactone 12.5 mg daily per routine; states he also has torsemide ?100mg that he takes in what sounds like diuretic titration protocol but he has not taken this for some time. ? if soem of his recently worse nocturnal restlessness relates to orthopnea/HF >> using IV meds d/t AMS/ wanting him to eat rather than take pills had lasix 40 mg IV x 1 today; did NOT receive any in ER >will lasix mg 10 IV x 1 now >starting tomorrow AM IV lasix 20 mg at 0800 and 1300 every day -started K 20 mEq bid IV w/ goal K of 4 >>will ask hospitalist to review/update admission medication list >>he will need cleaner operator/more coherent diuretic regimen at d/c -for now fluid limit 1.8L -daily STANDING weights ordered -defer to cardiology to modify any of above based on valvular dz -hold spironolactone for now but look to start soon Above recommendations reviewed by [facility] w/ Dr Argueta, radha notes about medications before/after d/c and plan for diuretics, anemia currently. We are in agreement. (2) Acute kidney injury superimposed on CKD: stage 1 nonoliguric HOLLY, ? from mild HF, stable/slightly improved baseline creatinine 1.5. recent HOLLY w/ creatinine 1.9 earlier this month as OP and on presentation yesterday; improved slightly today to 1.7. no obstruction on imaging; UA w/ trace ketones, stable chronic 2+ protein, trace LE and 1+ bilirubin and with no bacteria >> in the setting of 08/04 cystoscopy and with hx of radiation cystitis, prostatic varicosities. -daily bmp (3) Anemia of chronic disease: chronic anemia on retacrit as OP w/ hematology and gets weekly labs through his port >hgb down to 7.7 today; monitor >low threshold to give YAMILET if no e/o infection and still in house (4) Altered mental status: no clear cause so far; defer to primary service; f/u pending blood cxs History of Present Illness Reason for Consultation: HF, CKD, need for lasix Requesting Physician: Dr Ruano Attending Physician: Olena Argueta MD History of Present Illness 89 y/o M whom I'm asked to see for CKD, HF, and need for diuresis was admitted yesterday afternoon with metabolic encephalopathy and acute heart failure after presenting w/ 2 days of worsening confusion and a few weeks of worsened insomnia/getting up and moving about at night. 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 PCP stopped ambien about one month back w/ intent of improving confusion but does not appear to have helped. There is concern for mild cognitive impairment, possibly progressing. he has had multiple epididymitis episodes this summer and several gross hematuria and tissue sloughing episodes as well. He underwent cystoscopy w/ Dr Gardner on 08/04 showing some small /improved areas of radiation cystitis and with bladder neck prominent prostatic varicosities, with likely area for recent bleeding identified. Ongoing gross hematuria since cysoscopy per report. No OP nephro care. His baseline creatinine is 1.5 for the past year; his creatinine was up to 1.9 on most recent OP test on 07/22. Also just underwent Mohs procedure earlier this week L mastoid region. he was admitted here for HF in May. he follows w/ the wound clinic for a L posterior leg wound after he injured himself at a picnic in April. He has a gastric polyp [place] [facility] [place] thought that this may contribute to his chronic anemia. Pt has been nonadherent w/ HF meds generally and takes lower doses maybe 1-2 times weekly (see a/p below) >> last dose approx 6 days prior to presentation. at baseline he prepares his own breakfast/midday meal, weighs himself. he does need help w/ medications and is conversant. His /family give most of hx / ROS > pt is alert and follows simple commands but does not speak to me. he does not ambulate much b/c of marked fatigue and dyspnea. worsening edema recently and as above gross hematuria. not comfortable in bed, though can't pinpoint if this is orthopnea. no f/c. no cough; no palpitations or reported chest pain. Allergies Allergy/AdvReac Type Severity Reaction Status Date / Time Penicillins Allergy Unknown RASH/EL-ORBITAL Verified 08/08/24 14:53 EDEMA olanzapine [From Zyprexa] AdvReac Severe Agitated Verified 08/08/24 14:53 zolpidem [From Ambien] AdvReac Severe Hallucinati Unverified 08/08/24 14:53 Home Medications Medication Instructions Recorded Confirmed Type esomeprazole magnesium 40 mg 40 mg PO BID 03/25/19 08/08/24 History capsule,delayed release (Nexium) prednisone 5 mg tablet 5 mg PO QAM 03/25/19 08/08/24 History warfarin 5 mg tablet 2.5 mg PO [id number] 03/25/19 08/08/24 History ferrous sulfate 325 mg (65 mg 325 mg PO QAM 04/25/21 08/08/24 History iron) tablet levothyroxine 125 mcg tablet 125 mcg PO UD 01/23/24 08/08/24 History spironolactone 25 mg tablet 12.5 mg PO QAM 01/23/24 08/08/24 History tamsulosin 0.4 mg capsule 0.4 mg PO QAM 01/23/24 08/08/24 History cholecalciferol (vitamin D3) 25 25 mcg PO QAM 03/31/24 08/08/24 History mcg (1,000 unit) tablet (Vitamin D3) cyanocobalamin (vitamin B-12) 1,000 mcg PO QAM 03/31/24 08/08/24 History 1,000 mcg tablet (Vitamin B-12) rosuvastatin 10 mg tablet 10 mg PO QPM 05/18/24 08/08/24 History albuterol sulfate 90 mcg/actuation 2 puff inhalation Q4H PRN 08/08/24 08/08/24 History aerosol inhaler Shortness Of Breath Or Wheezing coenzyme Q10 100 mg capsule 200 mg PO DAILY 08/08/24 08/08/24 History (CoQ-10) fluticasone propionate 50 1 spray intranasal DAILY 08/08/24 08/08/24 History mcg/actuation nasal spray,suspension ipratropium bromide 0.02 % 2.5 ml inhalation QID PRN 08/08/24 08/08/24 History solution for inhalation Shortness Of Breath Or Wheezing magnesium 250 mg tablet 250 mg PO DAILY 08/08/24 08/08/24 History Patient History Medical History Restrictive lung disease Enlarged prostate Elevated troponin level (05/18/24) notes elevated troponin level ad mn ed visit. Reports she did message cardiology regarding and no response as of current. Anemia reports iron deficiency anemia. Asthma not sure on official dx details. History of respiratory failure (12/2023) History of encephalopathy (03/2024) Hx of bladder cancer (05/2021) TURBT, chemo + radiation Nocturnal hypoxemia oxygen prn 2L [place] (hard of hearing) High cholesterol History of elevated PSA Osteoarthritis CKD (chronic kidney disease), stage III History of pulmonary edema History of pericarditis (2022) Moderate mitral stenosis "some calcification there" - told valve was working okay. History of RSV infection (12/2023) and hx respiratory failure Dec 2023 History of pneumonia (12/2023) Hypothyroid Persistent atrial fibrillation History of CHF (congestive heart failure) (03/2024) Cellulitis dx 05/18/24 left leg - ks ed. Hematuria current: messaged urology regarding. Reports was told do colonoscopy/egd first then will follow up. Hx cystoscopy march 2024 and was clear. History of basal cell carcinoma History of rectal fissure History of COVID-19 DX'D 10/2020 [facility]RU [facility]-SOB, PRODUCTIVE COUGH, BODY ACHES, FEVER-RECOVERED AT HOME-SYMPTOMS RESOLVED SOB (shortness of breath) on exertion Arthritis Anticoagulated on Coumadin Heart disease Stark's esophagus GERD (gastroesophageal reflux disease) History of pulmonary embolism (2013) FOLLOWING SHOULDER SURGERY APPROX 2013 -NO ISSUES SINCE Tachy-krut syndrome part of reason for pacemaker, pt unsure if occurs at current. History of atrial flutter Restless legs syndrome Dyslipidemia Carotid artery disease pt is unsure about this. Nothing has ever been talked about regarding. Spinal stenosis of lumbar region History of paroxysmal supraventricular tachycardia BPH (benign prostatic hypertrophy) Diverticular disease of colon COPD (chronic obstructive pulmonary disease) pt not sure about official dx of. Hypertension Surgical History History of aortic valve replacement (2003) History of mitral valve repair (2003) [facility]. History of cardiac radiofrequency ablation x2 most recent approx 2013. History of right cataract surgery History of left cataract surgery Pacemaker TACHY-KURT SYNDROME. ALSO HX OF A-FIB. LAST CHECKED within 2023 - [facility] History of bladder surgery TURBT 05/29/2021 [facility] History of esophagogastroduodenoscopy (EGD) MULTIPLE History of tonsillectomy History of total knee replacement LEFT KNEE History of herniorrhaphy History of surgery MOHS PROCEDURE ON FACE History of colonoscopy History of bowel resection S/T DIVERTICULITIS History of arthroscopy B/L SHOULDERS Status post inguinal hernia repair Family History Brother Diabetes Cancer Esophageal Cancer Mother Colorectal cancer Lung cancer Social History Smoking Status: Never smoker Tobacco Type: Smokeless Tobacco (Dip or Chew) Cigarettes Per Day: 0; Second Hand Exposure: No; Do You Dip or Chew Tobacco: Yes (1 can lasts a few days/advised); Hx Alcohol Use: No Hx Substance Use: No Preferred Language: Kazakh Communication Ability: Effective Communication Ability Comment: pt is levelock, pt does phone interview. Visual Impairment: Limited Hearing Ability: Hard of Hearing Casing Running Machine Tender Required: No Beliefs That Will Affect Care: None marital status: Current Living Situation: Spouse Current Living Situation Comment: home with current occupational status: retired Other Information That Helps Us Care for You: No Feels Safe at Home: Yes Safety Concerns: Feels Safe At This Time Diet: regular caffeine: No during the past year weight has: remained stable Physical Activity Frequency: Other Physical Activity Frequency Comment: "Does alot of yard work" Assistive Devices: Glasses and Hearing Aid - Bilateral Review of Systems 2 Review of Systems: All systems reviewed & are unremarkable except as noted in Subjective Physical Exam 2 Constitutional: well developed (sitting up on chair on RA cleaning lunch tray), well nourished, + altered mental status and + frail appearing; no acute distress Respiratory: normal respiratory effort Auscultation: + diminished lung sounds (R base; else clear) Cardiovascular: Rate/Rhythm: regular rate and regular rhythm Heart Sounds: + murmur Extremities: + edema (3+ pedal, 1+ to mid thighs BL) Gastrointestinal (Abdomen): Inspection/Auscultation: normal bowel sounds P ercussion/Palpation: abdomen soft; abdomen nontender Musculoskeletal: Extremities: strength 5/5 throughout Skin: L distal leg dressed; L mastoid region bandaged Neurologic: wiggins, no speech, no tremor, follows simple commands Results & Data Vital Signs (Past 12 Hours) Vital Signs Temp Pulse Pulse Resp BP Pulse Ox O2 Del Method 08/09/24 08:39 Room Air 08/09/24 07:49 36.4 C L 65 18 110/64 100 Nasal Cannula 08/09/24 07:14 64 O2 Flow Rate 08/09/24 08:39 08/09/24 07:49 3 08/09/24 07:14 Laboratory Results 08/09/24 07:34 08/09/24 07:[address] a/p non con (images personally reviewed and agree w/ report) 1. Nonobstructing bilateral nephrolithiasis. No ureteral calculi or hydronephrosis. 2. Prostamegaly with evidence of chronic outlet obstruction. 3. Moderate colonic fecal retention. No bowel obstruction. 4. Cholelithiasis. 5. Cardiomegaly with volume overload consisting of pulmonary edema, small pleural effusions with anasarca and small amount of ascites. 6. Nonspecific gastric wall thickening. Correlate clinically to exclude gastritis. head CT unremarkable
--- NOTE | 2024-08-09 12:13 | Electrocardiogram Report ---
Test Reason : Blood Pressure : */* mmHG Vent. Rate : 73 BPM Atrial Rate : 73 BPM P-R Int : * ms QRS Dur : 116 ms QT Int : 458 ms P-R-T Axes : * -64 -88 degrees QTcB Int : 504 ms Atrial fibrillation Right bundle branch block Left anterior fascicular block Bifascicular block Minimal voltage criteria for LVH, may be normal variant ( R in aVL ) Septal infarct , age undetermined Abnormal ECG When compared with ECG of 27-May-2024 22:42, Right bundle branch block is now Present Septal infarct is now Present Confirmed by Jose De Jesus Barbour ([id number]) on 08/09/2024 12:12:50 PM Referred By: REFERRED SELF Confirmed By: Jose De Jesus Barbour
--- NOTE | 2024-08-09 12:59 | Hospitalist Progress Note ---
Date of Service August 09, 2024 Assessment & Plan (1) Altered mental status: (2) Heart failure, diastolic, with acute decompensation: (3) Atrial fibrillation: (4) Tachy-kurt syndrome: (5) Hematuria: (6) Restrictive lung disease: (7) Traumatic open wound of left lower leg: (8) Skin tear of upper extremity: (9) Status post aortic valve replacement: (10) Status post mitral valve repair: (11) History of prostate cancer: (12) Bladder cancer: (13) Nocturnal hypoxemia: (14) Stark's esophagus: Plan Mr. Patrick Robles is an 89yo M with PMH of PMH of atrial fibrillation on coumadin, HFpEF, pulm HTN, dyslipidemia, hypothyroidism, asthma, asbestos history with restrictive lung disease, nocturnal hypoxemia, history of bladder cancer BPH, CKD III, h/o aortic valve replacement, insomnia with Ambien use and other medical problems listed below who is admitted for evaluation of acute encephalopathy and acute on chronic heart failure with preserved EF. Out put not accurate as patient with multiple incontinent episodes and removal of condom cath. Spent 45 min at bedside with and daughter. Discussed patient's water pill regimen which was 40mg lasix MWF, however, if "severe swelling" would switch from lasix to torsemide 50mg. Patient trialed on trazodone and up throughout the evening ambulating the halls. Discussed avoiding sedting agents as able, address medical concerns, and a trial of melatonin and "sleep hygiene" as reports she will be staying the evening. #Acute metabolic encephalopathy -multifactorial, CT head negative for acute process Question of probable underlying dementia with delirium UA no reflex to cx, BCx NGTD continue to treat the following avoid benzos/sedatives Delirium precautions #Acute on chronic heart failure with preserved EF #Elevated troponin iso HF exacerbation/demand ECHO 01/2024 with preserved EF 55-60%, mod. concentric LVH, moderate MS, mild mitral and tricuspid regurg. 60%, Right ventricular systolic pressure elevated to be 50-60 mmHg -Received IV Lasix 40mg this morning and an additional 10mg x1 dose after seeing nephrology -Plan for Furosemide 20mg IV BID -Strict I&O, daily weights and labs. -Goal Serum K> 4.0 and Serum Mag > 2.0. Cardiology following for optimization Nephrology for guidance on diuresis 2/2 advanced CKD -hold spironolactone for now -FR 1.8L #Acute on chronic normocytic anemia #Chronic Anticoagulation #pancytopenia Multifactorial, likely iso chronic disease EGD on 05/2024 with few polyps, C-scope with resected polyp no reports of GIB per last procrit 08/05 Trend CBC, nephrology possibly to give procrit while admitted Trend INR Transfuse < 7.0 #Recent Urologic intervention #Recent hematuria #History of papillary carcinoma of bladder #Hx of radiation cystitis Follows Dr. Louis and Urology, surveillance cysto this past Saturday showing varicosities at the bladder neck with scabbing 2/2 radiation cystitis, likely cause of bleeding from UA on admission without RBC/Blood Urine yellow on observation CTM #Persistent A-fib #Hx of Tachy-kurt syndrome s/p ppm #Valvular heart disease S/p aortic valve replacement and mitral valve repair c/b post surgical prosthetic stenosis Rate controlled. Continue Warfarin at this time. 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 Monitor closely Trend BMP Nephrology consulted on admission Active UA possible 2/2 recent cystopscopy #Moderate persistent asthma #COPD #Nocturnal Hypoxemia At baseline Continue home inhalers, baseline 2L HS #Constipation Moderate colonic fecal retention on CT a/p. Continue bowel regimen #Posterior LLE wound #Multiple skin tears Following with wound care, does not appear infected. Wound care consulted #Chronic Osteoarthritis Continue daily 5mg Prednisone, follows with rheum #Hypothyroidism Continue levothyroxine 125 mcg daily #BPH Continue flomax DVT Ppx: coumadin Code status: FULL (/daughter discussing, needs to be readdressed tomorrow) PCP: Richar Dispo: Admitted to PCU Admission and Anticipated Discharge Date Admission Date: August 08, 2024 Subjective Overnight, patient with delirium--ambulating the hallways without gown; however, easily redirected Patient sitting in bedside chair, able to say he feels fine--quickly stands to urinate in urinal Denies chest pain or SOB, though seemingly lethargic Patient mumbles intermittently, but seems to maintain airway and not be in acute distress Grandson at bedside who states he is fluctuating in alertness Physical Exam Constitutional: resting calmly in bedside chair, awakens promptly to name ENMT: bandage on left side of face with ecchymosis from prior surgery noted down left lateral neck Respiratory: bilateral crackles, diminished Cardiovascular: irregluarly irregular, pedal edema Results & Data Results & Data Vital Signs (Past 12 Hours) Vital Signs Temp Pulse Pulse Resp BP Pulse Ox O2 Del Method 08/09/24 11:37 36.4 C L 70 18 112/58 L 95 Room Air 08/09/24 08:39 Room Air 08/09/24 07:49 36.4 C L 65 18 110/64 100 Nasal Cannula 08/09/24 07:14 64 O2 Flow Rate 08/09/24 11:37 08/09/24 08:39 08/09/24 07:49 3 08/09/24 07:14 Laboratory Results Short CBC 08/08/24 08/09/24 Range/Units 12:41 07:34 WBC 4.93 3.32 L (4.8-10.8) K/ul Hgb 8.1 L 7.7 L (14.0-18.0) g/dl Hct 29.2 L 27.3 L (42.0-52.0) % Plt Count 97 L 95 L (130-400) K/uL BMP 08/09/24 07:34 Sodium 137 Potassium 3.9 D Chloride 104 Carbon Dioxide 27 BUN 51 H Creatinine 1.68 H Glucose 73 Calcium 8.0 L Medications Administered Home Medications Medication Instructions Recorded Confirmed Last Taken esomeprazole magnesium 40 mg 40 mg PO BID 03/25/19 08/08/24 08/07/24 capsule,delayed release (Nexium) prednisone 5 mg tablet 5 mg PO QAM 03/25/19 08/08/24 08/07/24 warfarin 5 mg tablet 2.5 mg PO [id number] 03/25/19 08/08/24 08/06/24 ferrous sulfate 325 mg (65 mg 325 mg PO QAM 04/25/21 08/08/24 08/07/24 iron) tablet levothyroxine 125 mcg tablet 125 mcg PO UD 01/23/24 08/08/24 08/07/24 spironolactone 25 mg tablet 12.5 mg PO QAM 01/23/24 08/08/24 08/07/24 tamsulosin 0.4 mg capsule 0.4 mg PO QA 01/23/24 08/08/24 08/07/24 cholecalciferol (vitamin D3) 25 25 mcg PO QAM 03/31/24 08/08/24 08/07/24 mcg (1,000 unit) tablet (Vitamin D3) cyanocobalamin (vitamin B-12) 1,000 mcg PO QAM 03/31/24 08/08/24 08/07/24 1,000 mcg tablet (Vitamin B-12) rosuvastatin 10 mg tablet 10 mg PO QPM 05/18/24 08/08/24 08/07/24 albuterol sulfate 90 mcg/actuation 2 puff inhalation Q4H PRN 08/08/24 08/08/24 Unknown aerosol inhaler Shortness Of Breath Or Wheezing coenzyme Q10 100 mg capsule 200 mg PO DAILY 08/08/24 08/08/24 08/07/24 (CoQ-10) fluticasone propionate 50 1 spray intranasal DAILY 08/08/24 08/08/24 Unknown mcg/actuation nasal spray,suspension ipratropium bromide 0.02 % 2.5 ml inhalation QID PRN 08/08/24 08/08/24 Unknown solution for inhalation Shortness Of Breath Or Wheezing magnesium 250 mg tablet 250 mg PO DAILY 08/08/24 08/08/24 08/07/24 Active Medications Generic Name Dose Route Start Last Admin Trade Name Freq PRN Reason Stop Dose Admin Cyanocobalamin 1,000 mcg 08/09/24 09:00 08/09/24 08:39 Cyanocobalamin (B-12) 500 Mcg Tablet PO 09/08/24 08:59 1,000 mcg QAM JENNIFER Administration Ferrous Sulfate 325 mg 08/09/24 09:00 08/09/24 08:39 Ferrous Sulfate 325 Mg Tab PO 09/08/24 08:59 325 mg QAM JENNIFER Administration Fluticasone Propionate 1 sprays 08/09/24 09:00 08/09/24 08:39 Fluticasone Propionate Na Spr 16 Gm Btl MARIO 09/08/24 08:59 1 sprays DAILY JENNIFER Administration Furosemide 40 mg 08/09/24 09:00 08/09/24 09:39 Furosemide 40 Mg/4 Ml Vial IV 09/08/24 08:59 40 mg DAILY JENNIFER Administration Levothyroxine Sodium 125 mcg 08/09/24 06:30 08/09/24 07:07 Levothyroxine Sodium 125 Mcg Tablet PO 09/08/24 06:29 Not Given [id number] [facility] Pantoprazole Sodium 40 mg 08/08/24 21:00 08/09/24 08:39 Pantoprazole 40 Mg Tab PO 09/07/24 20:59 40 mg BID JENNIFER Administration Prednisone 5 mg 08/09/24 09:00 08/09/24 08:39 Prednisone 5 Mg Tab PO 09/08/24 08:59 5 mg QAM JENNIFER Administration Rosuvastatin Calcium 10 mg 08/08/24 21:00 08/08/24 20:11 Rosuvastatin Calcium 10 Mg Tab PO 09/07/24 20:59 10 mg QPM JENNIFER Administration Tamsulosin HCl 0.4 mg 08/09/24 09:00 08/09/24 08:39 Tamsulosin Hcl 0.4 Mg Cap PO 09/08/24 08:59 0.4 mg QAM JENNIFER Administration Trazodone HCl 50 mg 08/08/24 21:00 08/08/24 20:11 Trazodone Hcl 50 Mg Tab PO 09/07/24 20:59 50 mg HS JENNIFER Administration Vitamin D 25 mcg 08/09/24 09:00 08/09/24 08:39 Cholecalciferol 25 Mcg (1000 Units) Tab PO 09/08/24 08:59 25 mcg QAM JENNIFER Administration Warfarin Sodium 2.5 mg 08/08/24 16:30 08/08/24 17:06 Warfarin Sod 2.5 Mg Tab PO 09/07/24 16:29 2.5 mg [email or web address] JENNIFER Administration (7) Traumatic open wound of left lower leg Encounter type: subsequent encounter Qualified Code(s): S81.802D - Unspecified open wound, left lower leg, subsequent encounter
[2024-08-09] MEDS: POTASSIUM CHLORIDE / WTR 20 MEQ/100 ML PLCT IV SCH (14:45)
[2024-08-09] MEDS: FUROSEMIDE INJ 20 MG/2 ML VIAL IV ONE (14:46)
[2024-08-09] MEDS: MELATONIN 3 MG TAB PO PRN (21:05)
[2024-08-10 06:36] LABS: Hematocrit (blood only) 27.5 % (42.0-52.0); Hemoglobin 7.9 g/dl (14.0-18.0); Mean Corpuscular Hemoglobin 25.5 pg (25.0-34.0); Mean Corpuscular Hgb Conc 28.7 g/dL (32.0-36.0); Mean Corpuscular Volume 88.7 fL (80.0-100.0); Mean Platelet Volume 10.4 fL (9.4-12.4); Platelet Count 97 K/uL (130-400); RDW Coefficient of Variation 17.2 % (11.5-14.5); RDW Standard Deviation 55.8 fL (36.4-46.3); White Blood Count 4.04 K/ul (4.8-10.8)
[2024-08-10 06:51] LABS: BUN Creatinine Ratio 27.8 (10-20); Calcium 8.4 mg/dl (8.6-10.3); Creatinine Clr Calc Pharmacy 25.8 ml/min; Est GFR (African American) 41.4 ml/min; Est GFR (Non-African American) 35.7 ml/min; Magnesium 2.2 mg/dl (1.7-2.4); Phosphorus 3.5 mg/dl (2.5-4.9); Potassium 4.2 mmol/L (3.5-5.1)
[2024-08-10 07:01] LABS: INR 2.7 (0.9-1.1); Prothrombin Time 27.1 Seconds (9.0-12.0)
[2024-08-10] MEDS: POLYETHYLENE (MIRALAX) 17 GM PACK PO PRN (08:23)
[2024-08-10] MEDS: FUROSEMIDE INJ 20 MG/2 ML VIAL IV SCH (08:24)
--- NOTE | 2024-08-10 08:43 | Nephrology Progress Note ---
Date of Service August 10, 2024 Assessment & Plan (1) Heart failure, diastolic, with acute decompensation: Plan: He has significant valvular HF but takes his diuretics somewhat infrequently b/c dislikes urinary frequency >> takes lasix 20 mg 1-2 times weekly tells me (not on admission med list); takes spironolactone 12.5 mg daily per routine; states he also has torsemide 50mg PRN bad edema but no weight parameters on this. ? if some of his recently worse nocturnal restlessness relates to orthopnea/HF >> using IV meds d/t AMS/ wanting him to eat rather than take pills Care coordinated repeatedly w/ Genevieve Plunkett; appreciate Dr Wynn initiating. -on bid lasix doses past 48 hrs > will ensure he gets second dose today >gave K IV 20 mEq again today will start torsemide 10 mg tomorrow am (note dose increase - updated Dr Wynn) and spironolactone 12.5 mg daily same time and follow >defer to cardiology for diuretic titration protocol if indicated -Cont FR 1.8L -daily STANDING weights ordered: first one 08/10 63.3 he has MANY specialists following his care as OP > cardiology, urology, hematology, dermatology >> will therefore defer OP f/u w/ nephrology unless his renal function worsens after d/c D/c on < 2 gm daily Na diet, daily standing weights (to bring log to cardiology, PCP appts), recommend weekly bmp x 3 (already gets weekly labs w/ hematology) >>pls educate family on high potassium foods > needs 2-3 servings daily >>pls d/c on 10 mEq K /day Care coordinated repeatedly with Genevieve Plunkett (2) Acute kidney injury superimposed on CKD: Plan: stage 1 nonoliguric HOLLY, ? from mild HF, stable/slightly improved again today baseline creatinine 1.5. recent HOLLY w/ creatinine 1.9 earlier this month as OP and on presentation yesterday; improved slightly as of 08/09 and today to 1.7. no obstruction on imaging; UA w/ trace ketones, stable chronic 2+ protein, trace LE and 1+ bilirubin and with no bacteria >> in the setting of 08/04 cystoscopy and with hx of radiation cystitis, prostatic varicosities. -daily bmp (3) Anemia of chronic disease: Plan: chronic anemia on retacrit as OP w/ hematology and gets weekly labs through his port >hgb at 7.9 today; monitor >low threshold to give YAMILET if no e/o infection and still in house (4) Altered mental status: Plan: no clear cause so far; defer to primary service; per daughter improving; f/u pending blood cxs which are NGTD Admission and Anticipated Discharge Date Admission Date: August 08, 2024 Subjective seen on midafternoon rounds; extended discussion w/ daughter. pt more alert, getting up to bathroom; very eager for d/c; does note still some"gurgling" when he breathes Review of Systems 2 Review of Systems: All systems reviewed & are unremarkable except as noted in Subjective Physical Exam 2 Constitutional: well developed (sitting up on chair on RA), well nourished and + frail appearing; no acute distress ENMT: Ears: + hearing impairment Respiratory: normal respiratory effort Auscultation: lungs clear to auscultation bilaterally and + diminished lung sounds Cardiovascular: Rate/Rhythm: regular rate and regular rhythm Heart Sounds: + murmur Extremities: + edema (2+ pedal, trace - 1+ to mid thighs BL) Gastrointestinal (Abdomen): Inspection/Auscultation: normal bowel sounds P ercussion/Palpation: abdomen soft (no abd wall edema); abdomen nontender Musculoskeletal: Extremities: strength 5/5 throughout Skin: L mastoid area dressing; L posterior leg wrapped Results & Data Vital Signs (Past 12 Hours) Vital Signs Temp Pulse Pulse Resp BP Pulse Ox O2 Del Method 08/10/24 07:41 36.5 C 64 19 110/52 L 97 Room Air 08/10/24 05:48 36.7 C 67 16 118/48 L 95 Room Air 08/09/24 23:13 60 08/09/24 22:00 36.5 C 63 18 97/46 L 92 Room Air Laboratory Results 08/10/24 06:22 08/10/24 06:22
[2024-08-10] MEDS: POTASSIUM CHLORIDE / WTR 20 MEQ/100 ML PLCT IV SCH (09:01)
--- NOTE | 2024-08-10 12:30 | Hospitalist Progress Note ---
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 Seems to be improving with IV diuresis. Reviewed nephrology and cardiology recommendations continue IV diuresis, transition to oral diuretics as coordinated with cardiology Patient gets regular Procrit injections on a weekly basis, defer to nephrology Patient has anticipated outpatient follow-up with GI in [place] for ongoing evaluation of his anemia. Continue therapies Daughter and at bedside understands need for oral diuretics, recognized need for ongoing outpatient follow-up. Anticipate discharge tomorrow Admission and Anticipated Discharge Date Admission Date: August 08, 2024 Subjective Patient states that he is feeling better. Wants to go home. Shortness of breath is significantly improved. Physical Exam Physical Exam: Constitutional: Alert, sitting in chair HEENT: Mucous membranes moist. Lungs: Clear to auscultation, decreased, few crackles at bases CV: S1-S2, regular, systolic murmur Abdomen: Soft, nontender, nondistended Extremities: Right lower extremity edema greater than left lower extremity Neuro: No focal deficits Psych: Cooperative, impaired memory Results & Data Results & Data Vital Signs (Past 12 Hours) Vital Signs Temp Pulse Pulse Resp BP Pulse Ox O2 Del Method 08/10/24 08:20 80 08/10/24 08:20 Room Air 08/10/24 07:41 36.5 C 64 19 110/52 L 97 Room Air 08/10/24 05:48 36.7 C 67 16 118/48 L 95 Room Air Diagnostic Findings Reviewed imaging, laboratory and diagnostic studies. Pertinent findings as below. Hemoglobin 7.9, WBCs 4.0, platelets 97 INR 2.7 Creatinine 1.69, baseline (7) Traumatic open wound of left lower leg Encounter type: subsequent encounter Qualified Code(s): S81.802D - Unspecified open wound, left lower leg, subsequent encounter
--- NOTE | 2024-08-10 13:38 | Cardiology Progress Note ---
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 Continue IV furosemide, possible transition to oral diuretics in 1-2 days (furosemide 40 mg/day along with spironolactone 12.5 mg/day) 2. Continue rate control and chronic anticoagulation, with Coumadin noting at least moderate mitral stenosis. 3. Continue medical management of the valvular heart disease. 4. Pacemaker interrogations as per the [facility]. Admission and Anticipated Discharge Date Admission Date: August 08, 2024 Supervising Physician Co-Signing Physician Notes I have personally performed a history and physical examination on the patient. I have reviewed the advance practitioner's documentation, and I agree with, and take responsibility for the plan of care. 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 Hospitalized with acute on chronic heart failure in the setting of underlying chronic kidney disease. Continue IV furosemide. Restart Aldactone in a.m. 08/11/2024. Continue rate control strategy with chronic anticoagulation with warfarin. Outpatient cardiology follow-up in 2 weeks. I spent a total of 35 minutes on the date of service in preparation, delivery, and documentation of the care provided to this patient, excluding any time spent in the performance of separately billed services. Michael Vallejo DO, [facility] Subjective Patient seen and examined. Chart, medications, and telemetry reviewed. Daughter present at bedside. Patient anxious for discharge Complaints: Rattle in the chest, dyspnea, right greater than left lower extremity edema. Telemetry: Atrial fibrillation with ventricular paced complexes. Review of Systems Review of Systems: No chest pain, palpitations, dizziness, syncope, fevers, or chills Physical Exam Physical Exam: General: A&Ox3. NAD. Hard of hearing. HENT: Dressing covering the left side of the face. Eyes: PER. Conjunctiva pink, sclera clear. Neck: JVD. Heart: Irregular, 66 bpm. Grade II/ systolic murmur. Grade I/ diastolic murmur. No rub. Lungs: Decreased breath sounds at the bases. Abdomen: +BS. Soft. Nontender. No masses or organomegaly. Extremities: 2+ right lower extremity edema. Dressing on the left lower extremity. Limited neurological examination is without focal deficits. Pulses: radial=2/4, posterior tibial=2/4. Results & Data Vital Signs (Past 12 Hours) Vital Signs Temp Pulse Pulse Resp BP Pulse Ox O2 Del Method 08/10/24 12:31 36.4 C L 60 19 107/64 95 Room Air 08/10/24 08:20 80 08/10/24 08:20 Room Air 08/10/24 07:41 36.5 C 64 19 110/52 L 97 Room Air 08/10/24 05:48 36.7 C 67 16 118/48 L 95 Room Air Laboratory Results Coagulation 08/10/24 Range/Units 06:22 PT 27.1 H (9.0-12.0) Seconds CBC 08/10/24 Range/Units 06:22 WBC 4.04 L (4.8-10.8) K/ul RBC 3.10 L (4.70-6.10) M/uL Hgb 7.9 L (14.0-18.0) g/dl Hct 27.5 L (42.0-52.0) % Plt Count 97 L (130-400) K/uL Comprehensive Metabolic Panel 08/10/24 Range/Units 06:22 Sodium 134 L (136-145) mmol/L Potassium 4.2 (3.5-5.1) mmol/L Chloride 102 (98-107) mmol/L Carbon Dioxide 28 (21-32) mmol/L BUN 47 H (6-23) mg/dl Creatinine 1.69 H (0.6-1.4) mg/dl Glucose 114 H (70-99(Fasting)) mg/dl Calcium 8.4 L (8.6-10.3) mg/dl Intake and Output 08/09/24 08/10/24 08/10/24 22:59 06:59 14:59 Intake Total 320 / 1100 120 / 1100 100 / 100 Output Total Balance 319 / 399 120 / 399 100 / 100 Intake: IV 200 / 200 100 / 100 Potassium Chloride / Wtr 20 meq 200 / 200 100 / 100 In 100 ml @ 50 mls/hr IV BID [facility] Rx#:[id number] Oral 120 / 900 120 / 900 Output: # Bowel Movements Other: # Unmeasured Voids 11 18 Weight 63.3 kg Weight Measurement Method Standing Scale
[2024-08-10] MEDS: FUROSEMIDE INJ 20 MG/2 ML VIAL IV ONE (16:05)
[2024-08-10] MEDS: POTASSIUM CHLORIDE / WTR 10 MEQ/100 ML PLCT IV SCH (16:07)
[2024-08-11 07:09] LABS: Calcium 8.7 mg/dl (8.6-10.3); Creatinine Clr Calc Pharmacy 29.8 ml/min; Est GFR (African American) 49.4 ml/min; Est GFR (Non-African American) 42.6 ml/min; Potassium 3.9 mmol/L (3.5-5.1)
[2024-08-11 07:33] VITALS: RESP 17; TEMP 97.3; O2SAT 95
--- NOTE | 2024-08-11 08:52 | Nephrology Progress Note ---
Date of Service August 11, 2024 Assessment & Plan (1) Heart failure, diastolic, with acute decompensation: Plan: He has significant valvular HF but takes his diuretics somewhat infrequently b/c dislikes urinary frequency >> takes lasix 20 mg 1-2 times weekly tells me (not on admission med list); takes spironolactone 12.5 mg daily per routine; states he also has torsemide 50mg PRN "bad edema" but no weight parameters on this. ? if some of his recently worse nocturnal restlessness relates to orthopnea/HF today started torsemide 10 mg qam and spironolactone 12.5 mg daily same time and follow >defer to cardiology for diuretic titration protocol if indicated -Cont FR 1.8L -daily STANDING weights ordered: first one 08/10 63.3 he has MANY specialists following his care as OP > cardiology, urology, hematology, dermatology >> will therefore defer OP f/u w/ nephrology unless his renal function worsens after d/c will sign off NEPHRO d/c RECS -torsemide 10 mg daily and spironolactone 12.5 mg daily -<2 gm daily sodium diet -daily STANDING weights (and bring log of wts to cardiology /PCP appts) -weekly bmp x 3 recommend ordered by cardiology or PCP (already gets weekly lab draws at hematology); would draw first one on or Saturday this week >>needs high potassium foods > 2-3 servings daily >>pls d/c on 10 mEq K /day -had 30024 units erythropoietin in house on 08/11 at my order; suggest picking up with hematology next week; aware -no specific neph f/u for reasons above >> though did tell will try working as OP to get him epo shots w/ nephro in [place]; if feasible will then have him f/u w/ us (2) Acute kidney injury superimposed on CKD: Plan: stage 1 nonoliguric HOLLY, ? from mild HF, stable/slightly improved again today baseline creatinine 1.5. recent HOLLY w/ creatinine 1.9 earlier this month as OP and on presentation yesterday; improved slightly as of 08/09 and today down to 1.5. no obstruction on imaging; UA w/ trace ketones, stable chronic 2+ protein, trace LE and 1+ bilirubin and with no bacteria >> in the setting of 08/04 cystoscopy and with hx of radiation cystitis, prostatic varicosities. -daily bmp in house (3) Anemia of chronic disease: Plan: chronic anemia on retacrit as OP w/ hematology and gets weekly labs through his port >hgb at 7.9 yesterday; >>will give [id number] units EPO today; he can cook pickled meat w/ hematology next week (4) Altered mental status: Plan: no clear cause so far; defer to primary service; per daughter improving; f/u pending blood cxs which are NGTD Admission and Anticipated Discharge Date Admission Date: August 08, 2024 Subjective slept not at all. some LE edema but toleratble; nto interfering w/ walking per pt; enjoying his coffee this AM; bedside > states his MS is still nto baseline but better adn devante's Review of Systems 2 Review of Systems: All systems reviewed & are unremarkable except as noted in Subjective Physical Exam 2 Constitutional: well developed (sitting up on chair on RA), well nourished, + altered mental status (but more talkative/appropriate today) and + frail appearing; no acute distress ENMT: Ears: + hearing impairment Respiratory: normal respiratory effort Auscultation: lungs clear to auscultation bilaterally and + diminished lung sounds (R base) Cardiovascular: Rate/Rhythm: regular rate and regular rhythm Heart Sounds: + murmur Extremities: + edema (2+ pedal, trace - 1+ to mid thighs BL) Gastrointestinal (Abdomen): Inspection/Auscultation: normal bowel sounds P ercussion/Palpation: abdomen soft (no abd wall edema); abdomen nontender Musculoskeletal: Extremities: strength 5/5 throughout Results & Data Vital Signs (Past 12 Hours) Vital Signs Temp Pulse Pulse Resp BP Pulse Ox O2 Del Method 08/11/24 07:32 36.3 C L 61 17 111/58 L 95 Room Air 08/11/24 07:09 71 08/11/24 03:40 72 14 121/58 L 93 Room Air 08/10/24 23:00 65 08/10/24 22:49 36.6 C 55 L 16 124/67 97 Room Air Laboratory Results 08/10/24 06:22 08/11/24 06:22
[2024-08-11] MEDS ORDERED: TORSEMIDE 20 MG TAB PO SCH (09:00)
[2024-08-11] MEDS ORDERED: TORSEMIDE 10 MG TAB PO SCH (09:00)
--- NOTE | 2024-08-11 09:04 | Cardiology Progress Note ---
Date of Service August 11, 2024 Assessment & Plan (1) Altered mental status: (2) Anemia: (3) Persistent atrial fibrillation: (4) Acute on chronic diastolic CHF (congestive heart failure): Plan 89 year old male admitted for acute onset confusion, hematuria, anemia, and volu me overload attributed in part due to acute decompensated diastolic congestive heart failure secondary to valvular heart disease in the setting of chronic kidney disease Patient status post aortic valve replacement and mitral valve repair in 2004 ([place] aortic valve bioprosthesis, 28 mm [place] mitral valve annular ring) 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 Torsemide may need to be increased to 20 mg/day. Weekly metabolic panels to be obtained. Patient did not require supplemental potassium prior to this admission. Agree with Nephrology to restriction fluids to 1.8 L/day, restrict sodium to 2,000 mg/day or less Daily weight checks first thing in AM Continue rate control and chronic anticoagulation, with Coumadin noting at least moderate mitral stenosis. Continue medical management of the valvular heart disease. Pacemaker interrogations as per the [facility]. Close outpatient cardiology follow-up Please contact with any questions or concerns Admission and Anticipated Discharge Date Admission Date: August 08, 2024 Supervising Physician Co-Signing Physician Notes I have reviewed the advance practitioner's documentation, and I agree with, and take responsibility for the plan of care. Subjective Patient seen and examined. Chart, medications, telemetry reviewed. at be dside. Notes less hoarseness and resolution of the rattle in the chest. Breathing improved. Right greater than left lower extremity edema improved. Did not sleep well last night. Intermittent confusion noted by today. Telemetry: Atrial fibrillation with heart rates in the 60s and 80s, intermittently ventricular paced Review of Systems Review of Systems: See above Physical Exam Physical Exam: General: A&Ox3. NAD. Hard of hearing. HENT: Dressing covering the left side of the face. Eyes: PER. Conjunctiva pink, sclera clear. Neck: No overt JVD. Heart: Irregular, 70 bpm. Grade II/ systolic murmur. Grade I/ diastolic murmur. No rub. Lungs: Rhonchi on the right base. Clear on the left. No wheeze. Abdomen: +BS. Somewhat distended. Soft. Nontender. No organomegaly. Extremities: 1+ right lower extremity edema. Dressing on the left lower extremity. Limited neurological examination is without focal deficits. Pulses: radial=2/4, posterior tibial=2/4. Results & Data Vital Signs (Past 12 Hours) Vital Signs Temp Pulse Pulse Resp BP Pulse Ox O2 Del Method 08/11/24 07:32 36.3 C L 61 17 111/58 L 95 Room Air 08/11/24 07:09 71 08/11/24 03:40 72 14 121/58 L 93 Room Air 08/10/24 23:00 65 08/10/24 22:49 36.6 C 55 L 16 124/67 97 Room Air Laboratory Results Comprehensive Metabolic Panel 08/11/24 Range/Units 06:22 Sodium 136 (136-145) mmol/L Potassium 3.9 (3.5-5.1) mmol/L Chloride 100 (98-107) mmol/L Carbon Dioxide 29 (21-32) mmol/L BUN 38 H (6-23) mg/dl Creatinine 1.46 H (0.6-1.4) mg/dl Glucose 117 H (70-99(Fasting)) mg/dl Calcium 8.7 (8.6-10.3) mg/dl Intake and Output 08/10/24 08/11/24 08/11/24 22:59 06:59 14:59 Intake Total 191.667 / 731.667 Balance 191.667 / 731.667 Intake: IV 191.667 / 291.667 Potassium Chloride / Wtr 10 meq 191.667 / 191.667 In 100 ml @ 100 mls/hr IV Q1H [facility] Rx#:[id number] Other: Other Intake Source sips sips # Unmeasured Voids 2 1 Weight 61.6 kg Weight Measurement Method Standing Scale
[2024-08-11] MEDS: POTASSIUM CHLORIDE CRTAB 20 MEQ TABCR PO SCH (09:12)
[2024-08-11] MEDS: SPIRONOLACTONE 12.5 MG TAB PO SCH (09:13)
[2024-08-11] MEDS: TORSEMIDE 10 MG TAB PO SCH (09:13)
--- NOTE | 2024-08-11 10:51 | Discharge Summary ---
Discharge Summary Date of Service August 11, 2024 Principal Dx & Hospital Course #1 = Principal Diagnosis (1) Heart failure, diastolic, with acute decompensation: (2) Chronic blood loss anemia: (3) Atrial fibrillation: (4) CKD (chronic kidney disease), stage III: (5) Hematuria: (6) Restrictive lung disease: (7) Traumatic open wound of left lower leg: (8) Skin tear of upper extremity: (9) Tachy-kurt syndrome: (10) Bladder cancer: (11) Nocturnal hypoxemia: (12) Stark's esophagus: (13) Anemia of chronic disease: Plan Patient 89-year-old gentleman with multiple comorbidities presents emergency room with increasing shortness of breath confusion and was noted to be in decompensated congestive heart failure with acute on chronic kidney injury. Patient was admitted to the hospital. Was given IV diuresis. Cardiology and nephrology consultations were obtained. The patient responded well to diuresis. Further history and was determined that patient has been very inconsistent with taking his diuretics. Challenge was really what would be the most appropriate diuretics for him to be discharged. Extensive conversation between nephrology cardiology and hospital medicine ensued. He was transition from IV Lasix to oral daily torsemide. Aldactone was also restarted. The plan is to continue to monitor his electrolytes and renal function as an outpatient. Continue his chronic anticoagulation with warfarin. He will follow-up with his outpatient providers for his recent dermatological surgery and his ongoing wound care. Follow-up with cardiology and nephrology. Patient did receive his Procrit injec tion that he received weekly here in the hospital prior to discharge. is at the bedside updated to the plan of care. And will be discharged home. Notes For Next Care Provider Continue INR monitoring as previous, goal INR 2-3 Basic metabolic profile weekly for 3 weeks Monitor daily weights, discharge weight 61.6 kg Medication Changes From Visit Furosemide dose adjusted and made daily Potassium chloride daily Furosemide discontinued Admission HPI Per Admitting Provider This is an 89yo M with PMH of PMH of atrial fibrillation on coumadin, HFpEF, pulm HTN, dyslipidemia, hypothyroidism, asthma, asbestos history with restrictive lung disease, nocturnal hypoxemia, history of bladder cancer BPH, CKD III, h/o aortic valve replacement, insomnia with Ambien use and other medical problems listed below who presented in ED with worsening confusion x 2 days. History obtained per chart review and family at bedside due to patient's altered status. Patient is reportedly A&O to self and place at baseline but but has been more confused over the past 2 days, particularly at night. PCP stopped Ambien a month ago thinking that it was possibly contributing to patient's confusion, which initially seemed to help improve patient's mentation. However, over the past 2 weeks patient has had worsened insomnia and has been up moving around during the night, getting dressed, etc. Last evening trialed 2.5mg melatonin but patient seemed to become even more confused, talking to himself and even getting up during the night to wash his clothing in the sink. Has been noncompliant with Lasix the past few days and last dose was reportedly given on Saturday. Is up 5 pounds, per . Most recent 2D echo from January 2024 with preserved EF 55-60%, moderate concentric LVH, moderate MS, mild mitral and tricuspid regurg. 60%, Right ventricular systolic pressure elevated to be 50-60 mmHg. + Increased BLE edema noted yesterday Patient recently underwent cystoscopy for history of bladder cancer on surveillance and noted to have some varices and bladder that may need to be cauterized, per , depending on whether or not the bleeding stops. Had this procedure 4 days ago and has had hematuria since. Also with history of anemia and found to have a gastric polyp in May with follow-up EGD scheduled in [place] on 08/27. Is still on Coumadin for history of A-fib. Patient also follows with wound care for multiple skin tears and a wound on posterior aspect of left leg that was dressed a few days ago. Patient denies any pain. No fever. Unable to obtain remainder of ROS due to confusion. Admission Exam Per Admitting Provider See H&P Discharge Exam Constitutional: Alert HEENT: Mucous membranes moist. Lungs: Clear to auscultation, decreased, no wheezes rales or rhonchi CV: S1-S2, regular Abdomen: Soft, nontender, nondistended Extremities: Chronic right lower extremity edema greater than left, improved. Dry dressing left lower extremity of chronic wound Dressing over left cheek from recent dermatological surgery clean and dry. Neuro: No focal deficits Psych: Cooperative, impaired memory Updated Medication List Medication Instructions Recorded Confirmed Type esomeprazole magnesium 40 mg 40 mg PO BID 03/25/19 08/08/24 History capsule,delayed release (Nexium) prednisone 5 mg tablet 5 mg PO QAM 03/25/19 08/08/24 History warfarin 5 mg tablet 2.5 mg PO [id number] 03/25/19 08/08/24 History ferrous sulfate 325 mg (65 mg 325 mg PO QAM 04/25/21 08/08/24 History iron) tablet levothyroxine 125 mcg tablet 125 mcg PO UD 01/23/24 08/08/24 History tamsulosin 0.4 mg capsule 0.4 mg PO QAM 01/23/24 08/08/24 History cholecalciferol (vitamin D3) 25 25 mcg PO QAM 03/31/24 08/08/24 History mcg (1,000 unit) tablet (Vitamin D3) cyanocobalamin (vitamin B-12) 1,000 mcg PO QAM 03/31/24 08/08/24 History 1,000 mcg tablet (Vitamin B-12) rosuvastatin 10 mg tablet 10 mg PO QPM 05/18/24 08/08/24 History albuterol sulfate 90 mcg/actuation 2 puff inhalation Q4H PRN 08/08/24 08/08/24 History aerosol inhaler Shortness Of Breath Or Wheezing coenzyme Q10 100 mg capsule 200 mg PO DAILY 08/08/24 08/08/24 History (CoQ-10) fluticasone propionate 50 1 spray intranasal DAILY 08/08/24 08/08/24 History mcg/actuation nasal spray,suspension ipratropium bromide 0.02 % 2.5 ml inhalation QID PRN 08/08/24 08/08/24 History solution for inhalation Shortness Of Breath Or Wheezing magnesium 250 mg tablet 250 mg PO DAILY 08/08/24 08/08/24 History furosemide 40 mg tablet 40 mg PO 3XWK 08/09/24 08/09/24 History torsemide 100 mg tablet 50 mg 3XD PRN Edema 08/09/24 08/09/24 History levothyroxine 125 mcg tablet 125 mcg PO SuMoTuWeFrSa@0630 #30 08/11/24 Rx (Synthroid) tabs levothyroxine 125 mcg tablet 250 mcg (2 x 125 mcg) PO Th@0630 08/11/24 Rx (Synthroid) #30 tabs potassium chloride 10 mEq 10 meq PO DAILY #30 tabs 08/11/24 Rx tablet,extended release(part/cryst) spironolactone 25 mg tablet 12.5 mg (1/2 x 25 mg) PO QAM #30 08/11/24 Rx tabs torsemide 10 mg tablet 10 mg PO QAM #30 tabs 08/11/24 Rx Hospital Stay Data Consultations 08/08/24 13:21 ED Decision to Admit Stat 08/08/24 16:16 Consult Cardiology Routine 08/08/24 19:43 Consult Nephrology Routine Diagnostic Imagining Performed 08/08/24 11:31 CT abd pelvis wo con Stat CT head/brain wo con Stat Reviewed imaging, laboratory and diagnostic studies. Pertinent findings as below. BMP stable, creatinine 1.46 Pending Results Patient Have Any Pending Studies at Discharge: No Discharge Instructions Given to Patient (Per Discharging Provider) Weigh yourself daily first thing in the morning, record weight and take to all doctors visits Get a weekly basic metabolic profile INR per usual process on Home Health Attestation I certify that this patient is under my care and that I, or a physicians volunteer assistant working with me, had a face to-face encounter that meets the home health [id number] encounter requirements with this patient. The encounter with the patient was in whole, or in part, for the following medical condition, which is the primary reason for home health care (list medical condition): I certify that, based on my findings, the following services are medically necessary home health services: My clinical findings support the need for the above services because: Further, I certify that my clinical findings support that this patient is homebound (i.e. absences from home require considerable and taxing effort and are for medical reasons or adventism services or infrequently or of short duration when for other reasons) because: Certification for Home Health Services: Based on the above findings, I certify that this patient is confined to the home and needs intermittent senior living care, physical therapy and/or speech therapy or continues to need occupational therapy. The patient is under my care, and I have initiated the establishment of the plan of care. This patient will be followed by a physician who will periodically review the plan of care. Total Time Total Time Spent Total Time Spent (In Minutes): 41
[2024-08-11 11:07] VITALS: BP 118/64
[2024-08-11 11:50] VITALS: PULSE 72
[2024-08-11] MEDS: HEPARIN 100 UNIT/ML 5ML FLUSH FLUSH PRN (11:57)
[2024-08-11] MEDS: EPOETIN ALFA 40,000 UNITS/ML VIAL SQ STA (11:57)
[2024-08-11] MEDS: EPOETIN ALFA 20,000 UNITS/ML VIAL SQ STA (11:57)
[2024-08-13] MEDS ORDERED: LEVOTHYROXINE SODIUM 125 MCG TABLET PO SCH (06:30)
== END 2024-08-11 12:50 | disposition home or self-care (01) | DRG 291 ==
LOC: ED 10:57 → 4W 13:51 → SUATTDRO 13:51 → 4W 15:42

== ENCOUNTER 2024-09-02 07:30 | Inpatient (IN) ==
--- NOTE | 2024-09-02 08:13 | Emergency Department Note ---
Impression & Plan Acute dyspnea ADMIT ED Provider Note HPI: History obtained from patient as well as at the bedside and daughter at the bedside. The patient is a chronically ill-appearing 89-year-old gentleman with history of chronic anemia, CHF, chronic kidney disease, presents the emergency department with a chief complaint of generalized weakness/fatigue and shortness of breath. Patient's states he has had some congestion and cough for the past 2 to 3 days. Today he had a low-grade fever as well. He seemed to be having some increased work of breathing therefore he was brought to the emergency department for further assessment. On arrival here to the ED the patient is mildly hypotensive, he is listless appearing, he is alert to verbal stimuli. Patient is noted to be saturating at 89% on room air and was placed on nasal cannula oxygen with good improvement. Patient is afebrile on arrival. ROS: - Per HPI Differential Diagnosis: Acute on chronic CHF exacerbation with hypoxia, pulmonary edema, pneumonia, viral upper respiratory infection, COPD exacerbation, ACS, pleural effusion, amongst other potential pathologies. *Outpatient medications and allergy history reviewed. 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 Lab work shows no leukocytosis, hemoglobin is low at 6.9, this is below the patient's baseline, platelet count is also low at 88 which is also slightly below the patient's baseline, INR is therapeutic at 2.6, venous blood gas shows a normal pH without hypercarbia. CMP shows acute on chronic kidney injury with a creatinine of 2.16, BUN is elevated at 64. Troponin is mildly elevated at 44.0, patient denies any chest pain, low suspicion for ACS. EKG per my interpretation shows rate controlled atrial fibrillation. BNP is markedly elevated at 2289 and the patient's chest x-ray does suggest a pattern of fluid overload. Patient was given a small IV fluid bolus for his presenting hypotension of approximately 300 cc with none further given his fluid overload pattern on chest x-ray. Will hold off on diuresis at this time given the patient's hypotension and acute on chronic kidney injury. Patient will require admission, he did have hypoxia here in the ED to 89% on room air and was placed on nasal cannula oxygen. He does wear this intermittently at home at night according to his family at the bedside. In regards to the patient's anemia, this is worse than baseline at 6.9, he denies any recent bleeding, given his dyspnea he was ordered 1 unit packed red blood cells and he was consented at the bedside with his daughter and his . Patient's daughter, Rivera, is an RN and states currently the patient is full code however she does have concerns that the patient is having a progressive decline from the standpoint of his CHF and overall physical health and they would be interested in palliative consultation on the inpatient basis to determine whether or not the patient may be a candidate for home hospice services given his multiple recent admissions to the hospital. I did discuss this with the on-call admitting service for [facility], Zoila Johnson PA-C, and the patient was accepted for admission to the inpatient service of Dr. Seay for further management. Consultants/Discussions held with other healthcare providers: -Hospitalist, Dr. Seay Disposition discussion held by myself with: -Patient as well as patient's and daughter at the bedside * CRITICAL CARE TIME: ( 45 ) minutes -Stabilization of patient with anemia with hemoglobin less than 7.0 requiring packed red blood cell transfusion, stabilization of patient with hypoxia at 89% on room air requiring nasal cannula oxygen for correction, time spent at the bedside, interpretation of diagnostic studies, discussion with other healthcare providers and arrangement of admission Diagnosis: 1. Hypoxia, acute 2. CHF exacerbation, acute on chronic 3. Acute on chronic kidney injury 4. Elevated BNP 5. Anemia, acute on chronic Disposition: Admission Chas Burkett DO Emergency Medicine Past Med/Surg History Problem List (Updated 09/02/24 @ 09:53 by Chas Burkett DO) Acute dyspnea (Acute) Chronic blood loss anemia Anemia of chronic disease Heart failure, diastolic, with acute decompensation Altered mental status (Acute) Traumatic open wound of left lower leg (Acute) Chronic venous insufficiency Abnormal ankle brachial index (Acute) Elevated lactic acid level (Acute) Anemia Heme positive stool Epididymitis Persistent atrial fibrillation Acute on chronic diastolic CHF (congestive heart failure) Weakness (Acute) AMS (altered mental status) (Acute) CHF (congestive heart failure) (Acute) Acute metabolic encephalopathy Nocturnal hypoxemia Acute kidney injury superimposed on CKD Acute decompensated heart failure (Acute) Testicular discomfort (Acute) Spermatocele of epididymis, single (Chronic) Community acquired pneumonia (Acute) Congestive heart failure (Acute) Moderate mitral stenosis Pneumonia Mitral stenosis and aortic insufficiency Pulmonary edema cardiac cause RSV (respiratory syncytial virus infection) Metabolic acidosis Acute respiratory failure with hypoxia and hypercarbia Encounter for pre-operative examination Lumbar spondylosis Low back pain Bladder cancer Pacemaker Asthma Chronic steroid use Atrial fibrillation DX 2003 - ON WARFARIN; follows with Dr. Rainey Status post mitral valve repair Status post aortic valve replacement "bioprosthetic" CKD (chronic kidney disease), stage III History of prostate cancer "had elevated PSA with + biopsy, but repeat biopsies and subsequent PSA's improved" On 11/18/16 10:00 Randy Gilbert wrote "2007" Osteoarthritis Medical History Restrictive lung disease Enlarged prostate Elevated troponin level (05/18/24) notes elevated troponin level ad mn ed visit. Reports she did message cardiology regarding and no response as of current. Anemia reports iron deficiency anemia. Asthma not sure on official dx details. History of respiratory failure (12/2023) History of encephalopathy (03/2024) Hx of bladder cancer (05/2021) TURBT, chemo + radiation Nocturnal hypoxemia oxygen prn 2L [place] (hard of hearing) High cholesterol History of elevated PSA Osteoarthritis CKD (chronic kidney disease), stage III History of pulmonary edema History of pericarditis (2022) Moderate mitral stenosis "some calcification there" - told valve was working okay. History of RSV infection (12/2023) and hx respiratory failure Dec 2023 History of pneumonia (12/2023) Hypothyroid Persistent atrial fibrillation History of CHF (congestive heart failure) (03/2024) Cellulitis dx 05/18/24 left leg - ks ed. Hematuria current: messaged urology regarding. Reports was told do colonoscopy/egd first then will follow up. Hx cystoscopy march 2024 and was clear. 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 History of atrial flutter Restless legs syndrome Dyslipidemia Carotid artery disease pt is unsure about this. Nothing has ever been talked about regarding. Spinal stenosis of lumbar region History of paroxysmal supraventricular tachycardia BPH (benign prostatic hypertrophy) Diverticular disease of colon COPD (chronic obstructive pulmonary disease) pt not sure about official dx of. Hypertension Surgical History History of aortic valve replacement (2003) History of mitral valve repair (2003) [facility]. History of cardiac radiofrequency ablation x2 most recent approx 2013. History of right cataract surgery History of left cataract surgery Pacemaker TACHY-KURT SYNDROME. ALSO HX OF A-FIB. LAST CHECKED within 2023 - [facility] History of bladder surgery TURBT 05/29/2021 [facility] History of esophagogastroduodenoscopy (EGD) MULTIPLE History of tonsillectomy History of total knee replacement LEFT KNEE History of herniorrhaphy History of surgery MOHS PROCEDURE ON FACE History of colonoscopy History of bowel resection S/T DIVERTICULITIS History of arthroscopy B/L SHOULDERS Status post inguinal hernia repair Family History Brother Diabetes Cancer Esophageal Cancer Mother Colorectal cancer Lung cancer Social History Smoking Status: Never smoker Tobacco Type: Smokeless Tobacco (Dip or Chew) Cigarettes Per Day: 0; Second Hand Exposure: No; Do You Dip or Chew Tobacco: Yes (1 can lasts a few days/advised); Hx Alcohol Use: No Hx Substance Use: No Preferred Language: [place] Zealander Communication Ability: Impaired Communication Ability Comment: pt is [place], pt does phone interview. Visual Impairment: Limited Hearing Ability: Hard of Hearing Pre Press Manager Required: No Beliefs That Will Affect Care: None marital status: Current Living Situation: Spouse Current Living Situation Comment: home with current occupational status: retired Feels Safe at Home: Yes Diet: regular caffeine: No during the past year weight has: remained stable Physical Activity Frequency: Other Physical Activity Frequency Comment: "Does alot of yard work" Assistive Devices: Cane Allergies Allergies Allergy/AdvReac Type Severity Reaction Status Date / Time Penicillins Allergy Unknown RASH/EL-ORBITAL Verified 09/02/24 09:09 EDEMA olanzapine [From Zyprexa] AdvReac Severe Agitated Verified 09/02/24 09:09 zolpidem [From Ambien] AdvReac Severe Hallucinati Unverified 09/02/24 09:09 ng Home Meds Home Medications Medication Instructions Recorded Confirmed esomeprazole magnesium 40 mg 40 mg PO BID 03/25/19 09/02/24 capsule,delayed release (Nexium) prednisone 5 mg tablet 5 mg PO QAM 03/25/19 09/02/24 warfarin 5 mg tablet 2.5 mg PO [id number] 03/25/19 09/02/24 ferrous sulfate 325 mg (65 mg 325 mg PO QAM 04/25/21 09/02/24 iron) tablet tamsulosin 0.4 mg capsule 0.4 mg PO QAM 01/23/24 09/02/24 cholecalciferol (vitamin D3) 25 25 mcg PO QAM 03/31/24 09/02/24 mcg (1,000 unit) tablet (Vitamin D3) cyanocobalamin (vitamin B-12) 1,000 mcg PO QAM 03/31/24 09/02/24 1,000 mcg tablet (Vitamin B-12) rosuvastatin 10 mg tablet 10 mg PO QPM 05/18/24 09/02/24 albuterol sulfate 90 mcg/actuation 2 puff inhalation Q4H PRN 08/08/24 09/02/24 aerosol inhaler Shortness Of Breath Or Wheezing coenzyme Q10 100 mg capsule 200 mg PO DAILY 08/08/24 09/02/24 (CoQ-10) fluticasone propionate 50 1 spray intranasal DAILY 08/08/24 09/02/24 mcg/actuation nasal spray,suspension ipratropium bromide 0.02 % 2.5 ml inhalation QID PRN 08/08/24 09/02/24 solution for inhalation Shortness Of Breath Or Wheezing magnesium 250 mg tablet 250 mg PO DAILY 08/08/24 09/02/24 torsemide 10 mg tablet 20 mg PO QAM 08/26/24 09/02/24 levothyroxine 150 mcg tablet 150 mcg PO DAILYBB 09/02/24 09/02/24 Previous Rx's Medication Instructions Recorded potassium chloride 10 mEq 10 meq PO DAILY #30 tabs 08/11/24 tablet,extended release(part/cryst) spironolactone 25 mg tablet 12.5 mg (1/2 x 25 mg) PO QAM #30 08/11/24 tabs Results & Data (ED) Vital Signs Vital Signs - 24 hr 09/02/24 07:35 09/02/24 07:52 09/02/24 08:06 Temperature 36.0 C L Temperature Source Temporal Artery Scan Pulse Rate 86 Pulse Rate from SpO2 Sensor 87 Respiratory Rate 20 20 Respiratory Effort / Characteristics Non-Labored Spontaneous Respiratory Depth Normal Respiratory Pattern Regular Blood Pressure 93/54 L 92/49 L Blood Pressure Mean 67 63 Blood Pressure Position Sitting Pulse Oximetry 90 90 Oxygen Delivery Method Room Air Oxygen Flow Rate Sepsis Recent Fever Within 48 Hours Yes Sepsis New/Unexplained Change in Mental Status No Sepsis Action Taken by Nursing No Action Required 09/02/24 08:27 09/02/24 08:30 09/02/24 09:00 Temperature Temperature Source Pulse Rate 85 86 87 Pulse Rate from SpO2 Sensor 95 H Respiratory Rate 20 22 Respiratory Effort / Characteristics Respiratory Depth Respiratory Pattern Blood Pressure 96/65 L 95/54 L Blood Pressure Mean 75 69 Blood Pressure Position Pulse Oximetry 89 L 92 Oxygen Delivery Method Room Air Nasal Cannula Oxygen Flow Rate 2 Sepsis Recent Fever Within 48 Hours Sepsis New/Unexplained Change in Mental Status Sepsis Action Taken by Nursing Laboratory Data 09/02/24 08:13 09/02/24 08:13 Lab Results 09/02/24 09/02/24 09/02/24 Range/Units 08:01 08:13 08:56 WBC 8.43 (4.8-10.8) K/ul RBC 2.58 L (4.70-6.10) M/uL Hgb 6.9 L* (14.0-18.0) g/dl Hct 25.0 L (42.0-52.0) % MCV 96.9 (80.0-100.0) fL MCH 26.7 (25.0-34.0) pg MCHC 27.6 L (32.0-36.0) g/dL RDW Std Deviation 75.1 H (36.4-46.3) fL RDW Coeff of Humberto 22.0 H (11.5-14.5) % Plt Count 88 L (130-400) K/uL MPV 10.5 (9.4-12.4) fL Immature Gran % (Auto) 0.5 % Neut % (Auto) 87.3 % Lymph % (Auto) 4.7 % Whitman % (Auto) 7.0 % Eos % (Auto) 0.1 % Baso % (Auto) 0.4 % Neut # (Auto) 7.36 H (1.40-6.50) K/uL Lymph # (Auto) 0.40 L (1.20-3.40) K/uL Whitman # (Auto) 0.59 (0.11-0.59) K/uL Eos # (Auto) 0.01 (0.00-0.50) K/uL Baso # (Auto) 0.03 (0.00-0.20) K/uL Immature Gran # (Auto) 0.04 (0.01-0.20) K/uL Polychromasia 1+ Anisocytosis Present Tear Drop Cells 2+ Ovalocytes 1+ PT 25.7 H (9.0-12.0) Seconds INR 2.6 H (0.9-1.1) VBG pH 7.41 (7.36-7.41) VBG pCO2 41 (38-50) mmHg VBG pO2 30 mmHg VBG HCO3 26 mmol/L VBG O2 Saturation < 60.0 % VBG Base Excess 1.2 mEq/L Sodium 135 L (136-145) mmol/L Potassium 4.5 (3.5-5.1) mmol/L Chloride 100 (98-107) mmol/L Carbon Dioxide 26 (21-32) mmol/L Anion Gap 9 (3-11) BUN 64 H (6-23) mg/dl Creatinine 2.16 H (0.6-1.4) mg/dl Est Cr Clr Drug Dosing Not Reportable eGFR 28.91 BUN/Creatinine Ratio 29.6 H (10-20) Glucose 100 H (70-99(Fasting)) mg/dl Calcium 8.4 L (8.6-10.3) mg/dl Total Bilirubin 1.4 H (0.2-1.0) mg/dl AST 16 (13-39) U/L ALT 7 (7-52) U/L Alkaline Phosphatase 65 (34-104) U/L Troponin I High Sens 44.0 H (0-20) pg/ml B-Natriuretic Peptide 2289 H (0-100) pg/ml Total Protein 5.8 L (6.0-8.3) gm/dl Albumin 3.4 (3.4-5.0) gm/dl Globulin 2.4 L (2.5-4.0) gm/dl Albumin/Globulin Ratio 1.4 (0.9-2) Adenovirus (PCR) Not Detected (NotDetected) B. pertussis DNA (PCR) Not Detected (NotDetected) B.parapertussis DNA PCR Not Detected (NotDetected) C. pneumoniae DNA (PCR) Not Detected (NotDetected) Coronavirus OC43 (PCR) Not Detected (NotDetected) Coronavirus HKU1 (PCR) Not Detected (NotDetected) Coronavirus 229E (PCR) Not Detected (NotDetected) SARS-CoV-2 (PCR) Not Detected (NotDetected) Coronavirus NL63 (PCR) Not Detected (NotDetected) Human Metapneumovir PCR Not Detected (NotDetected) Influenza Type A (PCR) Not Detected (NotDetected) Influenza Type B (PCR) Not Detected (NotDetected) M. pneumoniae (PCR) Not Detected (NotDetected) Parainfluenza 1 (PCR) Not Detected (NotDetected) Parainfluenza 2 (PCR) Not Detected (NotDetected) Parainfluenza 3 (PCR) Not Detected (NotDetected) Parainfluenza 4 (PCR) Not Detected (NotDetected) RSV (PCR) Not Detected (NotDetected) Entero/Rhino (PCR) Not Detected (NotDetected) Crossmatch See Detail Administered Medications Discontinued Medications Albuterol (Albut/Ipratrop 3mg/0.5mg Neb 3 Ml Vial) 3 ml NEB NOW STA; Protocol Stop: 09/02/24 08:12 Last Admin: 09/02/24 08:31 Dose: 3 ml Documented By: Sodium Chloride (Nss) 1,000 mls @ 999 mls/hr IV .Q1H1M ONE Stop: 09/02/24 08:48 Last Infusion: 09/02/24 09:26 Dose: Infused Documented By: Admin: 09/02/24 08:14 Dose: 999 mls/hr Documented By: MR Imaging Data Radiologist's Impression: Chest X-Ray 09/02/24 07:44 XR chest 1V portable CLINICAL HISTORY: Dyspnea COMPARISON STUDY: Chest CT April 01, 2024. Chest radiograph August 08, 2024. FINDINGS: Right internal jugular [id number], left leg and pacer, median sternotomy wires and prosthetic cardiac valves are again noted. Cardiomegaly is unchanged. Pulmonary edema is noted. This is slightly improved when compared to prior exam. There is no pneumothorax. There are small bilateral pleural effusions. Right basilar opacity is present. IMPRESSION: 1. Cardiomegaly with interstitial pulmonary edema and small bilateral pleural effusions . 2. Right basilar opacity which may be related to pulmonary edema. Superimposed pneumonia could appear similar. Radiographic follow-up is recommended. ACT 112: Negative or not required by law. Electronically signed by: Raza Robert M.D. 09/02/2024 8:26 AM Discharge Plan Visit Data Chief Complaint: Illness Stated Complaint: CHF,CONGESTION,LOW HR,LOW O2,CONFUSION ED Provider: Chas Burkett Discharge Problem: Acute dyspnea Forms Stand Alone Forms: My [facility] [employer] Prescriptions Prescriptions: No Action torsemide 10 mg tablet 20 mg PO QAM ferrous sulfate 325 mg (65 mg iron) tablet 325 mg PO QAM Rx Instructions: TAKE THIS MED WITH FOOD prednisone 5 mg Tablet 5 mg PO QAM Rx Instructions: 05/27/24 ferry terminal agent esomeprazole magnesium [Nexium] 40 mg Capsule,Delayed Release(Dr/Ec) 40 mg PO BID warfarin 5 mg Tablet 2.5 mg PO [id number] Patient Comments: no dose on saturday at current, all other days of week 2.5 mg Rx Instructions: Take 2.5mg by mouth Sun//Sat//Sat, skip Mon/Sat cyanocobalamin (vitamin B-12) [Vitamin B-12] 1,000 mcg Tablet 1,000 mcg PO QAM cholecalciferol (vitamin D3) [Vitamin D3] 25 mcg (1,000 unit) Tablet 25 mcg PO QAM rosuvastatin 10 mg Tablet 10 mg PO QPM levothyroxine 150 mcg tablet 150 mcg PO DAILYBB tamsulosin 0.4 mg capsule 0.4 mg PO QAM magnesium 250 mg Tablet 250 mg PO DAILY coenzyme Q10 [CoQ-10] 100 mg Capsule 200 mg PO DAILY albuterol sulfate 90 mcg/actuation HFA aerosol inhaler 2 puff INHALATION Q4H PRN (Reason: Shortness Of Breath Or Wheezing) fluticasone propionate 50 mcg/actuation spray,suspension 1 spray INTRANASAL DAILY ipratropium bromide 0.02 % Solution 2.5 ml INHALATION QID PRN (Reason: Shortness Of Breath Or Wheezing) potassium chloride 10 mEq tablet,ER particles/crystals 10 meq PO DAILY Qty: 30 0RF spironolactone 25 mg tablet 12.5 mg PO QAM Qty: 30 0RF Referrals Referrals: Bell Mcqueen MD [Primary Care Provider] -
[2024-09-02] MEDS: SODIUM CHLORIDE 0.9% 1,000 ML IV ONE (08:14)
[2024-09-02 08:24] LABS: Base Excess VBG 1.2 mEq/L; HCO3 VBG 26 mmol/L; Oxygen Saturation VBG < 60.0 %; PCO2 VBG 41 mmHg (38-50); PO2 VBG 30 mmHg; pH VBG 7.41 (7.36-7.41)
--- NOTE | 2024-09-02 08:27 | XRay Report ---
XR chest 1V portable CLINICAL HISTORY: Dyspnea COMPARISON STUDY: Chest CT April 01, 2024. Chest radiograph August 08, 2024. FINDINGS: Right internal jugular [id number], left leg and pacer, median sternotomy wires and prost hetic cardiac valves are again noted. Cardiomegaly is unchanged. Pulmonary edema is noted. This is sl ightly improved when compared to prior exam. There is no pneumothorax. There are small bilateral pleu ral effusions. Right basilar opacity is present. IMPRESSION: 1. Cardiomegaly with interstitial pulmonary edema and small bilateral pleural effusions . 2. Right basilar opacity which may be related to pulmonary edema. Superimposed pneumonia could appear similar. Radiographic follow-up is recommended. ACT 112: Negative or not required by law. Electronically signed by: Raza Robert M.D. 09/02/2024 8:26 AM
[2024-09-02] MEDS: ALBUT/IPRATROP 3MG/0.5MG NEB 3 ML VIAL NEB STA (08:31)
[2024-09-02 08:46] LABS: Alanine Aminotransferase 7 U/L (7-52); Albumin Globulin Ratio 1.4 (0.9-2); Albumin Level 3.4 gm/dl (3.4-5.0); Alkaline Phosphatase 65 U/L (34-104); Anion Gap 9 (3-11); Aspartate Aminotransferase 16 U/L (13-39); BUN Creatinine Ratio 29.6 (10-20); Bilirubin,Total 1.4 mg/dl (0.2-1.0); Blood Urea Nitrogen 64 mg/dl (6-23); Calcium 8.4 mg/dl (8.6-10.3); Carbon Dioxide 26 mmol/L (21-32); Chloride 100 mmol/L (98-107); Globulin 2.4 gm/dl (2.5-4.0); Glucose 100 mg/dl (70-99(Fasting)); Potassium 4.5 mmol/L (3.5-5.1); Sodium 135 mmol/L (136-145); Total Protein 5.8 gm/dl (6.0-8.3)
[2024-09-02 08:47] LABS: Hemoglobin 6.9 g/dl (14.0-18.0); Mean Corpuscular Hemoglobin 26.7 pg (25.0-34.0); Mean Corpuscular Hgb Conc 27.6 g/dL (32.0-36.0); Mean Corpuscular Volume 96.9 fL (80.0-100.0); Mean Platelet Volume 10.5 fL (9.4-12.4); Platelet Count 88 K/uL (130-400); RDW Standard Deviation 75.1 fL (36.4-46.3); Red Blood Count 2.58 M/uL (4.70-6.10); White Blood Count 8.43 K/ul (4.8-10.8)
[2024-09-02] MEDS ORDERED: SODIUM CHLORIDE 0.9% 250 ML IV PRN (08:51)
[2024-09-02 08:58] LABS: Adenovirus PCR Not Detected (NotDetected); Bordetella parapertussis PCR Not Detected (NotDetected); Bordetella pertussis PCR Not Detected (NotDetected); Chlamydia pneumoniae PCR Not Detected (NotDetected); Coronavirus 229E PCR Not Detected (NotDetected); Coronavirus CoV-2 (COVID19)PCR Not Detected (NotDetected); Coronavirus HKU1 PCR Not Detected (NotDetected); Coronavirus NL63 PCR Not Detected (NotDetected); Coronavirus OC43PCR Not Detected (NotDetected); Human Metapneumovirus PCR Not Detected (NotDetected); Influenza A PCR Not Detected (NotDetected); Influenza B PCR Not Detected (NotDetected); Mycoplasma pneumoniae PCR Not Detected (NotDetected); Parainfluenza Virus 1 PCR Not Detected (NotDetected); Parainfluenza Virus 2 PCR Not Detected (NotDetected); Parainfluenza Virus 3 PCR Not Detected (NotDetected); Parainfluenza Virus 4 PCR Not Detected (NotDetected); Respiratory Syncytial VirusPCR Not Detected (NotDetected); Rhinovirus/Enterovirus PCR Not Detected (NotDetected)
[2024-09-02 09:06] LABS: INR 2.6 (0.9-1.1); Prothrombin Time 25.7 Seconds (9.0-12.0)
[2024-09-02 09:16] LABS: Anisocytosis Present; Basophils # (auto) 0.03 K/uL (0.00-0.20); Basophils % (auto) 0.4 %; Eosinophils # (auto) 0.01 K/uL (0.00-0.50); Eosinophils % (auto) 0.1 %; Immature Granulocytes # (auto) 0.04 K/uL (0.01-0.20); Immature Granulocytes % (auto) 0.5 %; Lymphocytes % (auto) 4.7 %; Monocytes # (auto) 0.59 K/uL (0.11-0.59); Neutrophils # (auto) 7.36 K/uL (1.40-6.50); Neutrophils % (auto) 87.3 %; Ovalocytes 1+; Polychromasia 1+; Tear Drop Cells 2+
[2024-09-02 09:53] LABS: Appearance Urine Clear (Clear); Bacteria Urine Automated None Seen (None Seen); Bilirubin Urine Negative (Negative); Blood Urine Negative (Negative); Cast Urine Automated 0-2 /lpf (0-2); Color Urine Yellow; Epithelial Cell Urine Auto 0-2 /hpf (0-2); Glucose Urine UA Negative (Negative); Ketones Urine Trace (Negative); Leukocyte Esterase Urine Trace (Negative); Nitrite Urine Negative (Negative); Protein Urine 1+ (Negative); RBC Urine Automated 0-2 /hpf (0-2); Specific Gravity Urine 1.019 (1.000-1.030); Urobilinogen Urine Negative (Negative); WBC Urine Automated 0-5 /hpf (0-5); pH Urine 5.5 (4.5-7.5)
--- NOTE | 2024-09-02 10:46 | Electrocardiogram Report ---
Test Reason : Blood Pressure : */* mmHG Vent. Rate : 94 BPM Atrial Rate : 91 BPM P-R Int : * ms QRS Dur : 114 ms QT Int : 398 ms P-R-T Axes : * -60 215 degrees QTcB Int : 497 ms Atrial fibrillation Left anterior fascicular block Incomplete right bundle branch block Left ventricular hypertrophy with repolarization abnormality Prolonged QT Abnormal ECG When compared with ECG of 08-Aug-2024 11:21, Right bundle branch block is no longer complete Criteria for Septal infarct are no longer Present Confirmed by Pastor Martin ([id number]) on 09/02/2024 10:45:31 AM Referred By: Confirmed By: Pastor Martin
--- NOTE | 2024-09-02 11:14 | History & Physical Report ---
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 Hypoxia Bilateral Pneumonia Hemoptysis Presumed sepsis admit to PCU pt with multiple complex comorbidities - his volume status appears to be at baseline despite elevated BNP and with a mild HOLLY it appears he has a bilateral pneumonia tx with IV cefepime, flagyl, obtain MRSA screen, lactobacillus consult pulmonology for assistance pulmonary toilet with nebs, ISP and flutter valve sputum and blood culture HOLLY superimposed on CKD 3 Cr 2.16 Baseline Cr ~ 1.4-1.7, suspect in setting of hypovolemia and diuresis pt to be administered blood transfusion x 1 unit along with IV antibiotics consult nephrology for further assistance, hold diuretics and KCL for now, pt with tenuous volume status so will defer to nephrology on when to resume Monitor renal function with daily BMP Acute on Chronic Anemia in setting of chronic blood loss and medical renal disease pt with known gastric polyp, has appt in [place] in October for cauterization? pt receiving intermittent procrit as well as IV venofer as outpt hgb 6.9 today, type and crossed for 1 unit, will monitor hgb and volume status closely add haptoglobin, ldh to a.m. lab to r/o hemolysis Metabolic encephalopathy 2/2 above, per family no hx of dementia at baseline but freq hosp delirium family to be at bedside 10/06 Chronic HFpEF S/p aortic Valve replacement, Bovine valve Hx of mitral valve repair hx of HTN - bp on low side today medically complex, recently hospitalization for decompensation, exam today appears to be consistent with cardiology exam on discharge His torsemide was increased to 20mg daily as OP, hold torsemide, aldactone and KCL for now Daily weights, strict I and O low threshold for cardiology consult, but will hold off for now He did receive IV venofer on 08/27 so family concerned that put him back into heart failure * 2D ECHO from January 2024: Left ventricle is normal in size. Moderate concentric LVH. Apical wall motion abnormality may reflect pacemaker activation. Flattened septum is consistent with RV pressure overload. EF 55 to 60%. Bioprosthetic aortic valve. Gradient is normal for prosthetic aortic valve. Annuloplasty ring and prior mitral valve repair is present with thickening of the mitral valve leaflets. Moderate mitral stenosis is present. Mild mitral and tricuspid regurgitation. Right ventricular systolic pressure is elevated to be 50 to 60 mmHg Persistent atrial fibrillation rate controlled with pacemaker, warfarin for anticoagulation INR therapeutic, hold warfarin for today given hemoptysis, consider IV heparin when subtherapeutic depending on clinic course and pulm consult Moderate persistent asthma COPD Nocturnal Hypoxemia pulm toilet as above Hx Tachy/Pb Syndrome s/p Pacemaker HLD: chronic, stable, continue statin Tobacco use disorder chewing tobacco, currently has not been using Chronic Osteoarthritis Continue daily 5mg Prednisone, follows with rheum Hypothyroidism Continue levothyroxine 150 mcg daily BPH Continue flomax 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 Louis and Urology, Dr. Borges consulted as above Palliative care discussion discussion was held with family at bedside they are understanding of pt complex medical conditions and his gradual decline over several months family wishes to pursue all treatment to improve his baseline status, but would like to discuss with palliative care regarding transition when discharged about having more services at home and possibly hospice, palliative consult placed DVT Ppx: hold evening coumadin 2/2 hemoptysis, recommend starting IV heparin when INR subtherapeutic Code status: DNR/DNI PCP: Richar Dispo: Admitted to PCU Patient seen in collaboration with Dr. Seay. Please see addendum. I spent a total of 75 minutes coordinating, documenting, and providing care for this patient excluding time spent in the performance of separately billed services. History of Present Illness Chief Complaint: Increasing confusion and worsened cough x 2 days. Primary Care Provider: Bell Mcqueen MD This is an 89-year-old male who has a significant past medical history of valvular heart disease status post aortic valve replacement and mitral valve repair in 2004 with aortic valve bioprosthesis and mitral valve annular ring with 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 History obtained from and daughter at bedside due to patient underlying confusion. Patient's daughter states that he is constantly flagged as having dementia when in fact mentally he is pretty sharp at baseline. Due to frequent hospitalizations he has been having increasing delirium. reports that patient started coughing on Saturday and developed chest congestion. He has been sleeping in the recliner for the past 2 nights due to being unable to breathe. He has been coughing up mucus with occasional blood-tinged. They state his temperature at home was 97.7 but he was very, "hot," without any blankets on and they felt that he was feverish. They deny any nausea, vomiting or diarrhea. Since being in the ER he has been getting more confused. Since being discharged from his last hospitalization he followed up with cardiology. It was reported that he had a 3 to 4 pound weight gain and therefore his torsemide was increased to 20 mg daily. He was also seen by hematology and oncology and was started on IV Venofer with a dose on 08/27/2024. Currently they feel his weight is only up approximately 2 to 3 pounds. He has been taking his medications as prescribed. and daughter at bedside are very fatigued from his frequent hospitalizations and general decline. They are interested in palliative conversation for more support at home but wish to pursue full treatment while hospitalized to try to improve baseline status. Overall they feel he has been eating and drinking well at home. In ED patient was borderline hypotensive but afebrile. His admitting hemoglobin is 6.9. His INR is therapeutic at 1.6. He does have an increase in his BUN and creatinine at 64 and 2.16. His BNP is elevated at 2289, troponin 41.6 and Pro-Buddy 0.51. Urinalysis and bio fire negative. Chest x-ray concerning for pulmonary edema and questionable right lower lobe pneumonia. He was typed and crossed and ordered to be transfused 1 unit given his persistently low hemoglobin. of significance patient recently hospitalized 08/08-08/08 to 08/11 secondary to acutely decompensated CHF, acute on chronic kidney injury that responded to IV diuresis. He also received Procrit injection due to acute on chronic anemia. Allergies Allergy/AdvReac Type Severity Reaction Status Date / Time Penicillins Allergy Unknown RASH/EL-ORBITAL Verified 09/02/24 11:48 EDEMA olanzapine [From Zyprexa] AdvReac Severe Agitated Verified 09/02/24 09:09 zolpidem [From Ambien] AdvReac Severe Hallucinati Unverified 09/02/24 09:09 Home Medications Medication Instructions Recorded Confirmed Type esomeprazole magnesium 40 mg 40 mg PO BID 03/25/19 09/02/24 History capsule,delayed release (Nexium) prednisone 5 mg tablet 5 mg PO QAM 03/25/19 09/02/24 History warfarin 5 mg tablet 2.5 mg PO 5XWK 03/25/19 09/02/24 History ferrous sulfate 325 mg (65 mg 325 mg PO QAM 04/25/21 09/02/24 History iron) tablet tamsulosin 0.4 mg capsule 0.4 mg PO HS 01/23/24 09/02/24 History cholecalciferol (vitamin D3) 25 25 mcg PO QAM 03/31/24 09/02/24 History mcg (1,000 unit) tablet (Vitamin D3) cyanocobalamin (vitamin B-12) 1,000 mcg PO QAM 03/31/24 09/02/24 History 1,000 mcg tablet (Vitamin B-12) rosuvastatin 10 mg tablet 10 mg PO QPM 05/18/24 09/02/24 History albuterol sulfate 90 mcg/actuation 2 puff inhalation Q4H PRN 08/08/24 09/02/24 History aerosol inhaler Shortness Of Breath Or Wheezing coenzyme Q10 100 mg capsule 200 mg PO DAILY 08/08/24 09/02/24 History (CoQ-10) fluticasone propionate 50 1 spray intranasal DAILY 08/08/24 09/02/24 History mcg/actuation nasal spray,suspension ipratropium bromide 0.02 % 2.5 ml inhalation QID PRN 08/08/24 09/02/24 History solution for inhalation Shortness Of Breath Or Wheezing magnesium 250 mg tablet 250 mg PO DAILY 08/08/24 09/02/24 History potassium chloride 10 mEq 10 meq PO DAILY #30 tabs 08/11/24 09/02/24 Rx tablet,extended release(part/cryst) spironolactone 25 mg tablet 12.5 mg (1/2 x 25 mg) PO QAM #30 08/11/24 09/02/24 Rx tabs torsemide 10 mg tablet 20 mg PO QAM 08/26/24 09/02/24 History levothyroxine 150 mcg tablet 150 mcg PO DAILYBB 09/02/24 09/02/24 History Past Med/Surg History Problem List (Updated 09/02/24 @ 12:05 by Diana Johnson PA-C) Acute worsening of stage 3 chronic kidney disease Bilateral pneumonia Hypoxia Acute dyspnea (Acute) Chronic blood loss anemia Anemia of chronic disease Heart failure, diastolic, with acute decompensation Altered mental status (Acute) Traumatic open wound of left lower leg (Acute) Chronic venous insufficiency Abnormal ankle brachial index (Acute) Elevated lactic acid level (Acute) Anemia Heme positive stool Epididymitis Persistent atrial fibrillation Acute on chronic diastolic CHF (congestive heart failure) Weakness (Acute) AMS (altered mental status) (Acute) CHF (congestive heart failure) (Acute) Acute metabolic encephalopathy Nocturnal hypoxemia Acute kidney injury superimposed on CKD Acute decompensated heart failure (Acute) Testicular discomfort (Acute) Spermatocele of epididymis, single (Chronic) Community acquired pneumonia (Acute) Congestive heart failure (Acute) Moderate mitral stenosis Pneumonia Mitral stenosis and aortic insufficiency Pulmonary edema cardiac cause RSV (respiratory syncytial virus infection) Metabolic acidosis Acute respiratory failure with hypoxia and hypercarbia Encounter for pre-operative examination Lumbar spondylosis Low back pain Bladder cancer Pacemaker Asthma Chronic steroid use Atrial fibrillation DX 2003 - ON WARFARIN; follows with Dr. Rainey Status post mitral valve repair Status post aortic valve replacement "bioprosthetic" CKD (chronic kidney disease), stage III History of prostate cancer "had elevated PSA with + biopsy, but repeat biopsies and subsequent PSA's improved" On 11/18/16 10:00 Randy Gilbert wrote "2007" Osteoarthritis Medical History Restrictive lung disease Enlarged prostate Elevated troponin level (05/18/24) notes elevated troponin level ad mn ed visit. Reports she did message cardiology regarding and no response as of current. Anemia reports iron deficiency anemia. Asthma not sure on official dx details. History of respiratory failure (12/2023) History of encephalopathy (03/2024) Hx of bladder cancer (05/2021) TURBT, chemo + radiation Nocturnal hypoxemia oxygen prn 2L ELIM IRA (hard of hearing) High cholesterol History of elevated PSA Osteoarthritis CKD (chronic kidney disease), stage III History of pulmonary edema History of pericarditis (2022) Moderate mitral stenosis "some calcification there" - told valve was working okay. History of RSV infection (12/2023) and hx respiratory failure Dec 2023 History of pneumonia (12/2023) Hypothyroid Persistent atrial fibrillation History of CHF (congestive heart failure) (03/2024) Cellulitis dx 05/18/24 left leg - ms ed. Hematuria current: messaged urology regarding. Reports was told do colonoscopy/egd first then will follow up. Hx cystoscopy march 2024 and was clear. History of basal cell carcinoma History of rectal fissure History of COVID-19 DX'D 10/2020 [facility]RU [facility]-SOB, PRODUCTIVE COUGH, BODY ACHES, FEVER-RECOVERED AT HOME-SYMPTOMS RESOLVED SOB (shortness of breath) on exertion Arthritis Anticoagulated on Coumadin Heart disease Stark's esophagus GERD (gastroesophageal reflux disease) History of pulmonary embolism (2013) FOLLOWING SHOULDER SURGERY APPROX 2013 -NO ISSUES SINCE Tachy-pb syndrome part of reason for pacemaker, pt unsure if occurs at current. History of atrial flutter Restless legs syndrome Dyslipidemia Carotid artery disease pt is unsure about this. Nothing has ever been talked about regarding. Spinal stenosis of lumbar region History of paroxysmal supraventricular tachycardia BPH (benign prostatic hypertrophy) Diverticular disease of colon COPD (chronic obstructive pulmonary disease) pt not sure about official dx of. Hypertension Surgical History History of aortic valve replacement (2003) History of mitral valve repair (2003) [facility]. History of cardiac radiofrequency ablation x2 most recent approx 2013. History of right cataract surgery History of left cataract surgery Pacemaker TACHY-PB SYNDROME. ALSO HX OF A-FIB. LAST CHECKED within 2023 - [facility] [place] History of bladder surgery TURBT 05/29/2021 [facility] History of esophagogastroduodenoscopy (EGD) MULTIPLE History of tonsillectomy History of total knee replacement LEFT KNEE History of herniorrhaphy History of surgery MOHS PROCEDURE ON FACE History of colonoscopy History of bowel resection S/T DIVERTICULITIS History of arthroscopy B/L SHOULDERS Status post inguinal hernia repair Family History Brother Diabetes Cancer Esophageal Cancer Mother Colorectal cancer Lung cancer Social History (Updated 09/02/24 @ 11:10 by Diana Johnson PA-C) Smoking Status: Never smoker Tobacco Type: Smokeless Tobacco (Dip or Chew) Second Hand Exposure: No; Do You Dip or Chew Tobacco: Yes (currently not using); Hx Alcohol Use: No Hx Substance Use: No Preferred Language: Iranian Communication Ability: Impaired Communication Ability Comment: Pt confused, daughter providing history Visual Impairment: Limited Hearing Ability: Hard of Hearing [employer] Consultant Required: No Beliefs That Will Affect Care: None marital status: Current Living Situation: Spouse Current Living Situation Comment: home with current occupational status: retired Other Information That Helps Us Care for You: No Feels Safe at Home: Yes Safety Concerns: Feels Safe At This Time Diet: regular caffeine: No during the past year weight has: remained stable Physical Activity Frequency: Other Physical Activity Frequency Comment: "Does alot of yard work" Review of Systems Review of Systems: Unobtainable due to cognitive status Physical Exam Physical Exam: Constitutional: Chronically ill appearing male, arouses to verbal stimuli, but confused, drowsy, vitals as above, NAD Head: Normocephalic, Atraumatic Eyes: PERRL, conjunctivae normal, anicteric sclerae ENMT: external ear and nose normal, oropharynx dry Neck: trachea midline, no thyromegaly normal visual inspection Respiratory: normal respiratory effort, on 2L of O2, b/l rhonchi at bases, poor inspiration, no w/r. no accessory muscle use Cardiovascular: IRR/IRR, II/ JERRY LUSB, trace to +1 RLE edema, no LLE Vessels: no JVD or carotid bruit Chest: normal inspection of chest Abdomen: normal bowel sounds, soft, nontender, no hepatosplenomegaly Musculoskeletal: no cyanosis or clubbing, extremities motor strength 5/5 Skin: no rashes, warm and dry normal turgor + healing wound to L posterior calf Neurologic: PERRL, EOMI, accommodation nl, no face palsy, no dysarthria CN's II-XI intact bilaterally and moves all extremities Psychiatric: A+Ox1, euthymic affect : deferred Results & Data Results & Data Vital Signs (Past 12 Hours) Vital Signs Temp Pulse Resp BP Pulse Ox O2 Del Method O2 Flow Rate 09/02/24 09:33 97 H 19 100/62 97 2 09/02/24 09:00 87 22 95/54 L 92 Nasal Cannula 2 09/02/24 08:30 86 20 96/65 L 89 L Room Air 09/02/24 08:27 85 09/02/24 08:06 86 20 92/49 L 90 09/02/24 07:52 90 Room Air 09/02/24 07:35 36.0 C L 20 93/54 L Laboratory Results I have independently reviewed and interpreted patient's admitting labs including CBC, CMP, PT/INR, bnp, procal, troponin. Diagnostic Findings Chest X-Ray 09/02/24 07:44 XR chest 1V portable CLINICAL HISTORY: Dyspnea COMPARISON STUDY: Chest CT April 01, 2024. Chest radiograph August 08, 2024. FINDINGS: Right internal jugular [id number], left leg and pacer, median sternotomy wires and prosthetic cardiac valves are again noted. Cardiomegaly is unchanged. Pulmonary edema is noted. This is slightly improved when compared to prior exam. There is no pneumothorax. There are small bilateral pleural effusions. Right basilar opacity is present. IMPRESSION: 1. Cardiomegaly with interstitial pulmonary edema and small bilateral pleural effusions . 2. Right basilar opacity which may be related to pulmonary edema. Superimposed pneumonia could appear similar. Radiographic follow-up is recommended. ACT 112: Negative or not required by law. Electronically signed by: Raza Robert M.D. 09/02/2024 8:26 AM Medications Administered Medication List Discontinued Medications Albuterol (Albut/Ipratrop 3mg/0.5mg Neb 3 Ml Vial) 3 ml NEB NOW STA; Protocol Stop: 09/02/24 08:12 Last Admin: 09/02/24 08:31 Dose: 3 ml Documented By: Sodium Chloride (Nss) 1,000 mls @ 999 mls/hr IV .Q1H1M ONE Stop: 09/02/24 08:48 Last Infusion: 09/02/24 08:35 Dose: Infused Documented By: Admin: 09/02/24 08:14 Dose: 999 mls/hr Documented By: ECG Additional Comments: I have independently reviewed and interpreted patient's admitting EKG which revealed: 94, afib, lafb, prolonged qtc 497ms,incomplete rbbb COVID-19 Results Results COVID-19 Adm Lab Results: RBC 2.58 M/uL (4.70-6.10) L 09/02/24 WBC 8.43 K/ul (4.8-10.8) 09/02/24 Hgb 6.9 g/dl (14.0-18.0) L* 09/02/24 Hct 25.0 % (42.0-52.0) L 09/02/24 Plt Count 88 K/uL (130-400) L 09/02/24 Neutrophils (%) (Auto) 87.3 % 09/02/24 Lymphocytes (%) (Auto) 4.7 % 09/02/24 Monocytes # (Auto) 0.59 K/uL (0.11-0.59) 09/02/24 Eosinophils # (Auto) 0.01 K/uL (0.00-0.50) 09/02/24 Immature Granulocyte % (Auto) 0.5 % 09/02/24 Neutrophils # (Auto) 7.36 K/uL (1.40-6.50) H 09/02/24 Lymphocytes # (Auto) 0.40 K/uL (1.20-3.40) L 09/02/24 Monocytes # (Auto) 0.59 K/uL (0.11-0.59) 09/02/24 Eosinophils # (Auto) 0.01 K/uL (0.00-0.50) 09/02/24 Basophils # (Auto) 0.03 K/uL (0.00-0.20) 09/02/24 Immature Granulocyte # (Auto) 0.04 K/uL (0.01-0.20) 4 Polychromasia 1+ 09/02/24 Anisocytosis Present 09/02/24 Tear Drop Cells 2+ 09/02/24 Ovalocytes 1+ 09/02/24 Na 135 mmol/L (136-145) L 09/02/24 K 4.5 mmol/L (3.5-5.1) 09/02/24 Cl 100 mmol/L (98-107) 09/02/24 CO2 26 mmol/L (21-32) 09/02/24 Anion Gap 9 (3-11) 09/02/24 BUN 64 mg/dl (6-23) H 09/02/24 Creatinine 2.16 mg/dl (0.6-1.4) H 09/02/24 BUN/Creatinine Ratio 29.6 (10-20) H 09/02/24 Glucose Level 100 mg/dl (70-99(Fasting)) H 09/02/24 Ca 8.4 mg/dl (8.6-10.3) L 09/02/24 Total Bilirubin 1.4 mg/dl (0.2-1.0) H 09/02/24 AST/SGOT 16 U/L (13-39) 09/02/24 ALT/SGPT 7 U/L (7-52) 09/02/24 Alkaline Phosphatase 65 U/L (34-104) 09/02/24 Total Protein 5.8 gm/dl (6.0-8.3) L 09/02/24 Albumin 3.4 gm/dl (3.4-5.0) 09/02/24 Globulin 2.4 gm/dl (2.5-4.0) L 09/02/24 Albumin/Globulin Ratio 1.4 (0.9-2) 09/02/24 Procalcitonin 0.51 ng/ml (0-0.5) H 09/02/24 INR 2.6 (0.9-1.1) H 09/02/24 Adenovirus (PCR) Not Detected (NotDetected) 09/02/24 B. parapertussis DNA (PCR) Not Detected (NotDetected) 08/18 05/11 B. pertussis DNA (PCR) Not Detected (NotDetected) 09/02/24 C. pneumoniae DNA (PCR) Not Detected (NotDetected) 4 Coronavirus Type OC43 (PCR) Not Detected (NotDetected) Coronavirus Type HKU1 (PCR) Not Detected (NotDetected) Coronavirus Type 229E (PCR) Not Detected (NotDetected) COVID-19 PCR Not Detected (NotDetected) 09/02/24 Coronavirus Type NL63 (PCR) Not Detected (NotDetected) Human Metapneumovirus (PCR) Not Detected (NotDetected) Influenza Virus Type A (PCR) Not Detected (NotDetected) Influenza Virus Type B (PCR) Not Detected (NotDetected) M. pneumoniae (PCR) Not Detected (NotDetected) 09/02/24 Parainfluenza Type 1 (PCR) Not Detected (NotDetected) 08/18 05/11 Parainfluenza Type 2 (PCR) Not Detected (NotDetected) 08/18 05/11 Parainfluenza Type 3 (PCR) Not Detected (NotDetected) 08/18 05/11 Parainfluenza Type 4 (PCR) Not Detected (NotDetected) 08/18 05/11 RSV (PCR) Not Detected (NotDetected) 09/02/24 Enterovirus/Rhinovirus (PCR) Not Detected (NotDetected) Chest CT 09/02/24 Chest X-Ray 09/02/24 Code Status & VTE Plan Code Status DNR/DNI VTE Prophylaxis Plan VTE Prophylaxis will be ordered: Yes Supervising Physician Co-Signing Physician Notes 89-year-old male w/ PMH of valvular heart disease status post aortic valve replacement and mitral valve repair in 2003 with aortic valve bioprosthesis and mitral valve annular ring with prosthetic aortic valve stenosis and moderate mitral stenosis, persistent atrial fibrillation, tachybradycardia syndrome status post pacemaker implant in 2017, HTN, HLD, CKD stage IIIb, chronic arthritic disease on chronic prednisone, COPD with pleural plaque and bladder carcinoma brought in ED by family due to increasing cough x 2 days [employer] a/w confusion x 2 d [employer], blood tinged sputum, and subjective fever from today AM. 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 He has been sleeping on recliner for 2 days [employer] per dtr. Labs reviewed: Hb 6.9 (had received venofer last , Hb was 7.7 at the time per dtr). INR 2.6, Cr 2.16 (baseline around 1.6). T bili 1.4 (better than baseline), Trop x 2 in 40s (likely chronic elevation, iso CKD 3b), BNP elevated (? 2/2/ HOLLY ckd3b), procal elevated. Resp biofire neg. MRSA pending. Chest imaging: bl pna a/w bl pl effusion. Pneumonia: cough w/ blood tinged sputum, subjective fever and sob per pt's dtr b/l pl effusion Blood tinged sputum sepsis 2/ pna: resp rate and pulse rate elvated iso pna. cefepime and flagyl, mrsa pending, pulm consult. sputum and blood culture to be sent Acute on chronic anemia Symptomatic anemia Hb 6.9 at presentation, anemia multifactorial due to extensive comorbidities. Fobt, 1 unit prbc and HnH q6h, ro hemolysis (uric acid, hapto, and LDH). Hold warfarin, pt/inr in AM, ? hep drip if pulm planning for any procedures. Acute kidney injury iso CKD 3b: in a patient w/ extensive cardiac conditions who needs fine balance between diuresis and volume intake. Pt will be getting blood transfusion, ? iv lasix small dose midway during transfusion, will run by nephrology. nephro consult. Hold nephrotoxics. Extensive comorbidities: Pt's dtr would like palliative on board. On Exam: GENERAL: Alert and oriented x3. NAD, on 2L NC O2. Old /frail/weak/ill appearing. HEENT: + pallor, no icterus. Pupils equal, round and reactive to light. Oral mucosa dry. NECK: No JVD, no neck masses. HEART: S1 and S2 heard. irregular rate and rhythm. + murmur, no gallop. RESPIRATORY SYSTEM: Normal AP diameter. No accessory muscle use. occ b/l rhonchi, b/l crackles. ABDOMEN: Soft, bowel sounds present, nontender, no distention. incisional hernia noted, reducible, non tender. CENTRAL NERVOUS SYSTEM: No facial droop. Speech is clear. Obeys simple commands. Moves extremities. EXTREMITIES: RLE 1+ edema, LLE trace edema, no erythema seen. I have seen and examined the patient and have discussed the case with the provider above. I agree with the assessment and plan as stated. Time spent: 40 min.
--- NOTE | 2024-09-02 11:25 | CT Scan Report ---
CT chest diagnostic wo con CLINICAL HISTORY: hypoxia, pulm edema vs pna TECHNIQUE: Multidetector row helical CT of the chest was performed. Coronal and sagittal reformations were obtained. Automated dose lowering techniques and/or adjustment according to patient size were u tilized for this exam. CT DOSE: 524.21 mGy.cm Comparison: Comparison is made to CT chest 04/01/2024 FINDINGS: Lungs and pleura: Trace bilateral pleural effusions are seen. Faint groundglass opacities are in the bilateral lower lungs. Heart and pericardium: Cardiomegaly is seen with biatrial enlargement. Aortic valvular prosthesis is seen. Vessels: Severe atherosclerotic changes in the aorta and coronary arteries. Pulmonary trunk measures 37 mm in diameter. Mediastinum and karson: Unremarkable. Chest wall and lower neck: Unremarkable. Abdomen: A hiatal hernia is seen. Bones: Degenerative changes in the thoracic spine. IMPRESSION: 1. Bilateral airspace opacities may represent pneumonia or alveolar edema. 2. Pulmonary hypertension and cardiomegaly. 3. Small bilateral pleural effusions. ACT 112: Negative or not required by law. Electronically signed by: Sebastian Nicole M.D. 09/02/2024 11:22 AM
--- OUTSIDE RECORDS SUMMARY | 2024-09-02 11:44 | External Medical Summary | Summary of Care ---
Author Name Unknown Organization [facility] Address [address] [place] [address] Phone [phone] Care Team Providers Care Metal Mover Name Role Phone Bell Mcqueen MD Primary Care Provide r Reason for Visit * Reason Comments Medication Administration Retacrit 60,00 0 units * Episode Based Medications (Routine) - Authorized Specialty Diagnoses / Procedures Referred By Contjocelyne t Referred To Contact Diagnoses Carcinoma of bladder (HCC) Iron deficiency anemia, unspecified iron deficiency anemia type Chronic kidney disease, stage 3b (HCC) Anemia due to stage 3b chronic kidney disease (HCC) Procedures WA INJ RETACRIT NON-ESRD USE WA THERAPEUTIC PROPHYLACTIC/DX INJECTION SUBQ/IM WA EPOETIN IVAN, NON-ESRD Ludwig Louis MD [address] [place] [address] Anc Hem/Onc Dony [facility] DEPT CLOSED - 10/01/23 [address] [place] [address] Referral ID Status Reason Start Date Expiration Date V isits Requested Visits Authorized [id number] Authorized 07/23/2024 10/15/2024 [id number] Encounter Details Date Type Department Care Team (Latest Contact Info) Description 07/29/2024 10:30 AM EDT Hem/Onc Treatment Hematology/Oncology Treatment, [place] [facility] [place] [address] Carcinoma of bladder (HCC)*; Iron deficiency anemia, [...] as of this encounter (statuses as of 09/01/2024) Medications Medication Sig Dispensed Refills Start Date End Date Status CO Q10 100 MG PO TABS 1 tab once daily Active ZOVIRAX 5 % EX OINT 5 times daily as needed. Active Polyethylene Glycol 3350 17 GM Oral Packet Take 1 Packet by mouth in the morning. 14 Each 0 6 Active Vitamin B12 500 MCG Oral TabletIndications [...] albuterol 120 mL 5 3 Active Ipratropium [place] 0.02 % Inhalation Solution (Atrovent)Indicat ions:Moderate persistent asthma without complication Inhale 2.5 mL via nebulizer in the morning and 2.5 mL at noon and 2.5 mL in the evening and 2.5 mL before bedtime. Mix with albuterol solution. 75 mL 12 3 Active predniSONE 5 MG Oral Tablet (Deltasone) TAKE 1 TABLET BY MOUTH EVERY DAY 90 Tablet 2 4 Active Benzonatate 100 MG Oral Capsule (Tessalon Perles) Take 1 Capsule by mouth 3 times a day as needed for Cough. 4 Active Ferrous Sulfate 325 (65 Fe) MG Oral Tablet (Feosol)Indicatio ns:Iron deficiency anemia secondary to blood loss (chronic) TAKE ONE TABLET BY MOUTH WITH FOOD DAILY 90 Tablet 3 4 Active Warfarin Sodium 5 MG Oral Tablet (Coumadin)Indicat ions:Pulmonary embolism and infarction (HCC) TAKE 0.5-1 TABLETS BY MOUTH EVERY EVENING. OR TAKE INSTRUCTED BY [facility] 90 Tablet 3 4 Active Tamsulosin HCl 0.4 MG Oral Capsule (Flomax)Indicatio ns:BPH without obstruction/lower urinary tract symptoms Take 1 Capsule by mouth in the morning. 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),Paroxysmal SVT (supraventricular tachycardia) (HCC),Dizziness TAKE 1/2 TABLET BY MOUTH IN THE MORNING 45 Tablet 3 4 Active Rosuvastatin Calcium 10 MG Oral Tablet (Crestor) TAKE 1 TABLET BY MOUTH EVERY DAY 90 Tablet 2 4 Active Spiriva Respimat 2.5 MCG/ACT Inhalation Aerosol Solution (Tiotropium [place] Monohydrate)Indic ations:Moderate persistent asthma without complication INHALE 2 PUFFS BY MOUTH EVERY DAY 12 g 3 4 Active ProAir HFA 108 (90 Base) MCG/ACT Inhalation Aerosol SolutionIndicatio ns:Moderate persistent asthma with exacerbation Inhale 2 Puffs by mouth every 4 hours as needed for Wheezing. 8.5 g 2 4 Active guaiFENesin ER 600 MG Oral Tablet Extended Release 12 Hour (Humibid [place])Indications:Ac fahad cough Take 1 Tablet by mouth in the morning and 1 Tablet before bedtime. 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] rinse after steroid. Test performed by Sameer PSYCHIATRIC REGISTERED NURSE CPFT Pleural plaque due to asbestos exposure Restrictive lung disease Overview: In Check dial performed to assess inhaler technique: 12/15/19 Name of inhalers Albuterol Pass: Yes at 60 L/min and Advair Pass: Yes at 60 L/min. Encouraged to to take deep breath, use aero chamber, and rinse after steroid. 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 Overview: [place] C0-M6 documented as of this encounter (statuses as of 09/01/2024) Resolved Problems Problem Noted Date Diagnosed Date [...] as of this encounter (statuses as of 09/01/2024) Immunizations Name Administration Dates Next Due COVID-19 mRNA, LNP-s, No Pre serve, 2-Dose Series (MediTAP) 12/01/2021,01/16/2021,12/26/2020 COVID-19, LNP-s, No Preserve , Ozzy-sucrose, Ages 12+ (MediTAP) 12/01/2021 COVID-19, MRNA-LNP, 23-24, P F, 30 MCG/0.3 mL, 12 YRS AND ABOVE, IM (Easy Food-Comirnat) 09/18/2023 Covid-19, Mrna, Lnp-s, Pf, B ivalent, 30 Mcg, IM, 12 yrs and above (MediTAP) 10/09/2022 Pneumococcal Conjugate Vacc, 13 Valent (Prevnar) 06/23/2015 Pneumococcal Polysaccharide PPV23 (Pneumovax) 05/14/2013 Seasonal Influenza Vac., MDV , IM, 0.5 mL (Fluzone) 08/26/2014,09/09/2013,08/15/2012,09/20,08/02/2010,08/31/2009,08/20/2008 ,08/19/2007,08/20/2006 Seasonal Influenza, High Dos e, Trivalent, PF, IM (Fluzone HD) 09/25/2017 Seasonal Influenza, PF, 6 M & above, IM , (FluLaval or Fluzone) 09/29/2018 Seasonal Influenza, Quadriva lent Hd (Fluzone Hd) 07/31/2023,10/09/2022,08/17/2021 Seasonal Influenza, Quadriva lent, No Preserve, IM 09/24/2017,09/22/2016,09/12/2015 Seasonal Influenza, Recombin ant, RIV4, PF, (Flublock) 08/15/2020 Seasonal Influenza, Trivalen t, Adjuvanted, 65+ YRS, [...] Sign Reading Time Taken Comments Blood Pressure 102/66 07/29/2024 10:02 AM EDT Pulse - - Temperature - - Respiratory Rate - - Oxygen Saturation - - Inhaled Oxygen Concentration - - Weight - - Height - - Body Mass Index - - documented in this encounter Nursing Notes * Venecia Infante LPN - 07/29/2024 10:10 AM EDT Retacrit 60,000 units administered SQ into the left upper extremity. HGB 9.5 Patient tolerated injection and will return in 1 week, documented in this encounter Plan of Treatment Upcoming Encounters Date Type Department Care Team (Latest Contact Info) Description 4 10:20 AM EDT Laboratory Laboratory [address] [place] [phone] [place], [address] [place] [address] 4 6:30 AM EDT Anticoagulation Centralized Clinical Pharmacy Services, Angela Giles [address] [place] [address] [place] [address] [place] [address] 4 1:45 PM EDT Hem/Onc Treatment Hematology/Onc [address]logy [address], [address] [phone] 4 2:45 PM EDT Hem/Onc Treatment Hematology/Onc ology [address], [address] [phone] [place], Chair 2 Hem Onc [address] [place] [address] 4 2:00 PM EDT Office Visit Cardiology, [facility] [address] [place] [address] Chas Wilkinson PA-C [address] [place] [address] 4 2:45 PM EST Hem/Onc Treatment Hematology/Onc ology [address], [address] [phone] Marylou, Chair 2 Hem Onc Scenery 200 [facility] [place] [address] 4 2:45 PM EST Hem/Onc Treatment Hematology/Onc ology Treatment, [place] [address] [facility], [place] [phone] Marylou, Chair 2 Hem Onc Scenery 200 [facility] [place] [address] 4 2:45 PM EST Hem/Onc Treatment Hematology/Onc ology Treatment, [address] [place] [phone] 4 9:30 AM EST Hospital Encounter ENDO [facility], Endoscopy Suite, HFAM 1, [address] [place] [address] Domingo Garcia DO [address] [place] [address] 4 9:30 AM EST - 4 10:45 AM EST Surgery ENDO [facility], Endoscopy Suite, HFAM 1, [address] [place] [address] Domingo Garcia DO [address] [place] [address] ESOPHAGOGASTRODUODENOSCOPY (EGD), FLEXIBLE, TRANSORAL, DIAGNOSTIC 4 2:45 PM EST Hem/Onc Treatment Hematology/Onc ology Treatment, [place] [address] [facility], [place] [phone] 5 11:15 AM EST Office Visit Hematology/Onc ology [facility] [place] [address] [place] [phone] Ramon Cadet MD [address] [place] [address] 5 11:20 AM EST Office Visit [address] [phone] Bell Mcqueen MD [address] [place] [address] [place] [address] Scheduled Procedures Name Priority Associated Diagnoses Date/Ti me ESOPHAGOGASTRODUODENOSCOPY ( EGD), FLEXIBLE, TRANSORAL, DIAGNOSTIC Recall Stark's esophagus with dysplasia 11/05/2024 9:30 AM EST COLONOSCOPY FLEXIBLE PROXIMA L DIAGNOSTIC Recall Stark's esophagus with dysplasia 11/05/2024 9:30 AM EST Health Maintenance Due Date Last Done Comments Adult Wellness Visit 2003 Depression Screening 07/12/2021 07/12/2020 CKD PHOS USE SMARTSET 92767 08/21/202202/2021, 07/12/2020, 03/13/2019, Additional history exists *BISPHONATE OR OTHER ACCEPTABLE MEDICATION NEEDED FOR OSTEOPOROSIS (REFER TO SMARTSET #1146) 10/14/2023 Albumin/Creatinine Ratio 04/22/2024 023, 05/24/2022, 03/26/2022, Additional history exists Stark's Esophagus Surveilance 02/26/2025 02/26/2022, 02/26/2022, 07/04/2021, Additional history exists DXA Scan 07/05/2025 07/05/2023, 10/19, 11/04/2018, Additional history exists TSH 08/19/2025 08/19/2024, 07/19, 01/21/2024, Additional history exists CKD HGB USE SMARTSET 25908 08/25/202508/25, 08/25/2024, 08/19/2024, Additional history exists DTap/Tdap Vaccines (2 - Td or Tdap) 08/19/2027 08/19/2017, 08/20/2008 Pneumococcal Vaccine: 65+ Years Completed 06/23/2015, 05/14/2013, 04/18/2004 Zoster Vaccines Completed 12/02/2020, 08/15/2020 VITAMIN D LEVEL ONCE IN A LIFETIME-USE SMARTSET# [id number] Completed 04/22/2023, 08/28/2021, 07/14/2015 COVID-19 Vaccine Completed 08/20/2024, 11/2022, 09/18/2023, Additional history exists Influenza Vaccine (FLU shot) Completed 01/2024, 07/31/2023, 10/09/2022, Additional history exists HPV (Gardasil) Vaccine Aged Out No lo nger eligible based on patient's age to complete this topic Hepatitis B Vaccine Aged Out No longe r eligible based on patient's age to complete this topic MENINGOCOCCAL (MENACTRA/MENVEO) Aged Out No longer eligible based on patient's age to complete this topic documented as of this encounter Medical Devices Implanted Type Area Nurses Supervisor Device Identifier Shelf Expiration Date Model / Serial / Lot Power Port 8fr Sngl Lumen Plas - [id number] Implanted:Qty: 1 on 02/22/2022 at [facility] : PERIPHERAL VASCULAR [id number] 02/15/2023 [id number] / / [id number] documented as of this encounter Visit Diagnoses [...] Date Dose Rate Site Epoetin Ivan-epbx (Retacrit) 22143 UNIT/ML inj 60,000 Units 60,000 Units, Subcutaneous, ONCE, On Sat07/29/24 at 1030, For 1 dose Given 07/29/2024 10:06 AM EDT 60,000 Units Arm Left Upper documented in this encounter Advance Directives * Full Code (Latest Code Status on File) Date Activated Date Inactivated Comments 09/03/2007 7:29 AM 09/03/2007 4:02 PM Care Teams Metal Mover Relationship Specialty Start Date End Date Bell Mcqueen MD [address] [place] [address] [place] [address] PCP - General Family Medicine 06/24/24 documented as of this encounter
--- OUTSIDE RECORDS SUMMARY | 2024-09-02 11:45 | External Medical Summary | Summary of Care ---
Author Name Unknown Organization [facility] Address [address] [place] [address] Phone [phone] Care Team Providers Care Resistor Winder Name Role Phone Bell Mcqueen MD Primary Care Provide r Reason for Visit * Reason Onset Date Comments Medication Management 08/27/2024 Encounter Details Date Type Department Care Team (Late st Contact Info) Description 08/27/2024 Telephone Hematology/Oncology [facility] [place] 200 [facility] [place] [phone] Ramon Cadet [facility] [address] Medication Management Allergies Active Allergy Reactions Criticality Noted Date Comments Penicillins Other (Please comment),Rash High Eyes swell Pollen 05/03/2022 Wound Dressing Adhesive Rash 05/02/2023 Patient reported Olanzapine Neuro complications (Please comment) 04/09/2024 documented as of this encounter (statuses as of 08/27/2024) Medications Medication Sig Dispensed Refills Start Date [...] albuterol 120 mL 5 11/21/2022 Active Ipratropium [place] 0.02 % Inhalation Solution (Atrovent)Indicatio ns:Moderate persistent [...] EVERY EVENING. 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 8.5 g 2 07/29/2024 Active Fluticasone Propionate 50 MCG/ACT Nasal Suspension (Flonase)Indication s:Acute cough Administer 1 [place] into each nostril 2 times a day. 16 mL 1 07/29/2024 Active Torsemide 10 MG Oral Tablet (Demadex) Take 2 Tablets by mouth in the morning. 08/11/2024 Active Potassium Chloride [place] ER 10 MEQ Oral Tablet Extended Release Take 1 Tablet by mouth in the morning. 08/11/2024 Active Magnesium 125 MG Oral Capsule Take 250 mg by mouth daily. Active traZODone HCl 50 MG Oral Tablet (Desyrel)Indication s:Insomnia, unspecified type Take 1 Tablet by mouth at bedtime. 30 Tablet 5 08/14/2024 Active Levothyroxine Sodium 150 MCG Oral Tablet (Levoxyl)Indication s:Carcinoma of bladder (HCC) One daily (at least 30 min prior to breakfast or other meds) 90 Tablet 1 08/20/2024 Active documented as of this encounter (statuses as of 08/27/2024) Active Problems Problem Noted Date Diagnosed Date [...] rinse after steroid. Test performed by Sameer MARKETING DATA SPECIALIST CPFT Pleural plaque due to asbestos exposure Restrictive lung disease Overview: In Check dial performed to assess inhaler technique: 12/15/19 Name of inhalers Albuterol Pass: Yes at 60 L/min and Advair Pass: Yes at 60 L/min. Encouraged to to take deep breath, use aero chamber, and rinse after steroid. 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 Overview: [place] C0-M6 documented as of this encounter (statuses as of 08/27/2024) Resolved Problems Problem Noted Date Diagnosed Date [...] as of this encounter (statuses as of 08/27/2024) Immunizations Name Administration Dates Next Due COVID-19 mRNA, LNP-s, No Pre serve, 2-Dose Series (Electric Imp) 12/01/2021,01/16/2021,12/26/2020 COVID-19, LNP-s, No Preserve , Ozzy-sucrose, Ages 12+ (Pfizer) 12/01/2021 COVID-19, MRNA-LNP, 23-24, P F, 30 MCG/0.3 mL, 12 YRS AND ABOVE, IM ([facility]) 09/18/2023 COVID-19, MRNA-LNP, 24-25, P R, 30MCG/0.3ML, IM, 12YRS AND ABOVE ([facility]) 08/20/2024 Covid-19, Mrna, Lnp-s, Pf, B ivalent, 30 Mcg, IM, 12 yrs and above (Electric Imp) 10/09/2022 Pneumococcal Conjugate Vacc, 13 Valent (Prevnar) 06/23/2015 Pneumococcal Polysaccharide PPV23 (Pneumovax) 05/14/2013 Seasonal Influenza Vac., MDV , IM, 0.5 mL (Fluzone) 08/26/2014,09/09/2013,08/15/2012,09/20,08/02/2010,08/31/2009,08/20/2008 ,08/19/2007,08/20/2006 Seasonal Influenza, High Dos e, Trivalent, PF, IM (Fluzone HD) 08/20/2024,09/25/2017 Seasonal Influenza, PF, 6 M & above, [...] encounter Miscellaneous Notes * Telephone Encounter - Lynn Trevino LPN - 08/27/2024 7:53 AM EDT [facility] [place] [facility] built and routed to provider No prior authorization required. Patient scheduled today documented in this encounter Plan of Treatment Upcoming Encounters Date Type Department Care Team (Latest Contact Info) Description 4 2:45 PM EDT Hem/Onc Treatment Hematology/Onc ology Treatment, [place] [address] [place] [phone] Marylou, Chair 2 Hem Onc Scenery [facility] [address] 4 10:20 AM EDT Laboratory Laboratory [address] [place] [phone] [address] [place] [address] 4 6:30 AM EDT Anticoagulation Centralized Clinical Pharmacy Services, Angela Giles [address] [place] [address] [place] [address] [facility], [address] [place] [address] 4 1:45 PM EDT Hem/Onc Treatment Hematology/Onc ology Treatment, [place] 200 [facility], [place] [phone] 4 2:00 PM EDT Office Visit Cardiology, [facility] [address] [facility] [place] [address] Chas Wilkinson PA-C [address] [place] [address] 4 1:00 PM EST Nurse Only Hematology/Onc ology Treatment, [place] 200 [facility], [place] [phone] Marylou, Chair 5 Hem Onc [address] [place] [address] 4 9:30 AM EST Hospital Encounter ENDO [facility], Endoscopy Suite, HFAM 1, [address] [place] [address] Domingo Garcia DO [address] [place] [address] 4 9:30 AM EST - 4 10:45 AM EST Surgery ENDO [facility], Endoscopy Suite, HFAM 1, [address] [place] [address] Domingo Garcia DO [address] [place] [address] ESOPHAGOGASTRODUODENOSCOPY (EGD), FLEXIBLE, TRANSORAL, DIAGNOSTIC 5 11:15 AM EST Office Visit Hematology/Onc ology [facility] Maryl[place] 200 [facility] [place] [phone] Ramon Cadet MD [address] [place] [address] 11:20 AM EST Office Visit Family Medicine [address] [place] [phone] Bell Mcqueen MD [address] [place] [address] [place] [address] Scheduled Procedures Name Priority Associated Diagnoses Date/Ti me ESOPHAGOGASTRODUODENOSCOPY ( EGD), FLEXIBLE, TRANSORAL, DIAGNOSTIC Recall Stark's esophagus with dysplasia 11/05/2024 9:30 AM EST COLONOSCOPY FLEXIBLE PROXIMA L DIAGNOSTIC Recall Stark's esophagus with dysplasia 11/05/2024 9:30 AM EST Health Maintenance Due Date Last Done Comments Adult Wellness Visit 2003 Depression Screening 07/12/2021 07/12/2020 CKD PHOS USE SMARTSET 30678 08/21/2022 1002/2021, 07/12/2020, 03/13/2019, Additional history exists *BISPHONATE OR OTHER ACCEPTABLE MEDICATION NEEDED FOR OSTEOPOROSIS (REFER TO SMARTSET #1146) 10/14/2023 Albumin/Creatinine Ratio 04/22/2024 023, 05/24/2022, 03/26/2022, Additional history exists Stark's Esophagus Surveilance 02/26/2025 02/26/2022, 02/26/2022, 07/04/2021, Additional history exists DXA Scan 07/05/2025 07/05/2023, 10/19, 11/04/2018, Additional history exists TSH 08/19/2025 08/19/2024, 07/19, 01/21/2024, Additional history exists CKD HGB USE SMARTSET 62436 08/25/202508/25, 08/25/2024, 08/19/2024, Additional history exists DTap/Tdap Vaccines (2 - Td or Tdap) 08/19/2027 08/19/2017, 08/20/2008 Pneumococcal Vaccine: 65+ Years Completed 06/23/2015, 05/14/2013, 04/18/2004 Zoster Vaccines Completed 12/02/2020, 08/15/2020 VITAMIN D LEVEL ONCE IN A LIFETIME-USE SMARTSET# [id number] Completed 04/22/2023, 08/28/2021, 07/14/2015 COVID-19 Vaccine Completed [...] encounter Medical Devices Implanted Type Area Rn Social Work Device Identifier Shelf Expiration Date Model / Serial / Lot Power Port 8fr Sngl Lumen Plas - [id number] Implanted:Qty: 1 on 02/22/2022 at [facility] : PERIPHERAL VASCULAR [id number] 02/15/2023 [id number] / / [id number] documented as of this encounter Advance Directives * Full Code (Latest Code Status on File) Date Activated Date Inactivated Comments 09/03/2007 7:29 AM 09/03/2007 4:02 PM Care Teams Resistor Winder Relationship Specialty Start Date End Date Bell Mcqueen MD [address] [place] [address] [place] [address] PCP - General Family Medicine 06/24/24 documented as of this encounter
--- OUTSIDE RECORDS SUMMARY | 2024-09-02 11:45 | External Medical Summary | Summary of Care ---
Author Name Unknown Organization [facility] Address [address] [place] [address] Phone [phone] Care Team Providers Care Sailboat Captain Name Role Phone Bell Mcqueen MD Primary Care Provide r Reason for Visit * Reason Comments eRx-Medication Refill Encounter Details Date Type Department Care Team (Late st Contact Info) Description 08/27/2024 Refill Family [address] [place] [address] Juancho Romero MD [address] [place] [address] [place] [address] Cellulitis of left lower leg Allergies Active Allergy Reactions Criticality Noted Date Comments Penicillins Other (Please comment),Rash High Eyes swell Pollen 05/03/2022 Wound Dressing Adhesive Rash 05/02/2023 Patient reported Olanzapine Neuro complications (Please comment) 04/09/2024 documented as of this encounter (statuses as of 08/31/2024) Medications Medication Sig Dispensed Refills Start Date [...] albuterol 120 mL 5 11/21/2022 Active Ipratropium [place] 0.02 % Inhalation Solution (Atrovent)Indicatio ns:Moderate persistent [...] EVERY EVENING. OR TAKE INSTRUCTED BY THE [facility] 90 Tablet 3 [...] Respimat 2.5 MCG/ACT Inhalation Aerosol Solution (Tiotropium [place] Monohydrate)Indicat ions:Moderate persistent asthma without complication INHALE 2 PUFFS BY MOUTH EVERY DAY 12 g 3 07/28/2024 Active ProAir HFA 108 (90 Base) MCG/ACT Inhalation Aerosol SolutionIndications :Moderate persistent asthma with exacerbation Inhale 2 Puffs by mouth every 4 hours as needed for Wheezing. 8.5 g 2 07/29/2024 Active Fluticasone Propionate 50 MCG/ACT Nasal Suspension (Flonase)Indication s:Acute cough Administer 1 [place] into each nostril 2 times a day. [...] other meds) 90 Tablet 1 08/20/2024 Active Torsemide 10 MG Oral Tablet (Demadex)Indication s:Cellulitis of left lower leg Take 1 Tablet by mouth in the morning. 90 Tablet 1 08/31/2024 Active documented as of this encounter (statuses as of 08/31/2024) Active Problems Problem Noted Date Diagnosed Date [...] rinse after steroid. Test performed by Sameer STONEHAND CPFT Pleural plaque due to asbestos exposure Restrictive lung disease Overview: In Check dial performed to assess inhaler technique: 12/15/19 Name of inhalers Albuterol Pass: Yes at 60 L/min and Advair Pass: Yes at 60 L/min. Encouraged to to take deep breath, use aero chamber, and rinse after steroid. 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 current use of ant icoagulant therapy 05/30/2005 [...] as of this encounter (statuses as of 08/31/2024) Immunizations Name Administration Dates Next Due COVID-19 mRNA, LNP-s, No Pre serve, 2-Dose Series (Engrade) 12/01/2021,01/16/2021,12/26/2020 COVID-19, LNP-s, No Preserve , Ozzy-sucrose, Ages 12+ (Engrade) 12/01/2021 COVID-19, MRNA-LNP, 23-24, P F, 30 MCG/0.3 mL, 12 YRS AND ABOVE, IM ([employer]) 09/18/2023 COVID-19, MRNA-LNP, 24-25, P R, 30MCG/0.3ML, IM, 12YRS AND ABOVE ([employer]) 08/20/2024 Covid-19, Mrna, Lnp-s, Pf, B ivalent, 30 Mcg, IM, 12 yrs and above ([employer]) 10/09/2022 Pneumococcal Conjugate Vacc, 13 Valent (Prevnar) [...] Telephone Encounter - David Hu MD - 08/31/2024 1:31 PM EDT Signed Prescriptions: Disp Refills Torsemide 10 MG Oral Tablet (Demadex) 90 Tab*1 Sig: Take 1 Tablet by mouth in the morning. Authorizing Provider: DAVID HU * Telephone Encounter - Renate Nieto [facility] - 08/29/2024 6:59 AM EDT Pending Prescriptions: Disp Refills Torsemide 10 MG Oral Tablet (Demadex) 90 Tab*1 Sig: Take 1 Tablet by mouth in the morning. * Telephone Encounter - Renate Nieto RPh - 08/29/2024 6:57 AM EDT Please review dose. 08/12 transition of care note "Torsemide 10 mg daily in the morning " Pending Prescriptions: Disp Refills Torsemide 10 MG Oral Tablet (Demadex) [Ph*90 Tab*1 Sig: Take 1 Tablet by mouth in the morning. documented in this encounter Plan of Treatment Upcoming Encounters Date Type Department Care Team (Latest Contact Info) Description 4 10:20 AM EDT Laboratory Laboratory [address] [place] [phone] [address] [place] [address] 4 6:30 AM EDT Anticoagulation Centralized Clinical Pharmacy Services, Angela Giles [address] [place] [address] [place] [address] [place] [address] 4 1:45 PM EDT Hem/Onc Treatment Hematology/Onc ology Treatment, [address] [place] [phone] 4 2:45 PM EDT Hem/Onc Treatment Hematology/Onc ology Treatment, [address] [place] [phone] Marylou, Chair 2 Hem Onc [address] [place] [address] 4 2:00 PM EDT Office Visit Cardiology, [facility] [address] [facility] [place] [phone] Chas Wilkinson PA-C [address] [place] [address] 4 2:45 PM EST Hem/Onc Treatment Hematology/Onc ology Treatment, [address], [place] [phone] Marylou, Chair 2 Hem Onc [address] [place], [place] [address] 4 2:45 PM EST Hem/Onc Treatment Hematology/Onc ology Treatment, [address], [place] [phone] Marylou, Chair 2 Hem Onc [address] [place] [address] 4 2:45 PM EST Hem/Onc Treatment Hematology/Onc ology Treatment, [address], [place] [phone] 4 9:30 AM EST Hospital Encounter ENDO [facility] [place], Endoscopy Suite, HFAM 1, [address] [place] [address] Domingo Garcia DO [address] [place] [address] 4 9:30 AM EST - 4 10:45 AM EST Surgery ENDO [facility], Endoscopy Suite, HFAM 1, [address] [place] [address] Domingo Garcia DO [address] [place] [address] ESOPHAGOGASTRODUODENOSCOPY (EGD), FLEXIBLE, TRANSORAL, DIAGNOSTIC 4 2:45 PM EST Hem/Onc Treatment Hematology/Onc ology Treatment, [address], [place] [phone] 5 11:15 AM EST Office Visit Hematology/Onc ology [place] [address] [place], [place] [phone] Ramon Cadet MD [address] [place] [address] 11:20 AM EST Office Visit [address] [place] [phone] Bell Mcqueen MD [address] [place] [address] [place] [address] Scheduled Procedures Name Priority Associated Diagnoses Date/Ti me ESOPHAGOGASTRODUODENOSCOPY ( EGD), FLEXIBLE, TRANSORAL, DIAGNOSTIC Recall Stark's esophagus with dysplasia 11/05/2024 9:30 AM EST COLONOSCOPY FLEXIBLE PROXIMA L DIAGNOSTIC Recall Stark's esophagus with dysplasia 11/05/2024 9:30 AM EST Health Maintenance Due Date Last Done Comments Adult Wellness Visit 2003 Depression Screening 07/12/2021 07/12/2020 CKD PHOS USE SMARTSET 10861 08/21/202202/2021, 07/12/2020, 03/13/2019, Additional history exists *BISPHONATE OR OTHER ACCEPTABLE MEDICATION NEEDED FOR OSTEOPOROSIS (REFER TO SMARTSET #1146) 10/14/2023 Albumin/Creatinine Ratio 04/22/2024 023, 05/24/2022, 03/26/2022, Additional history exists Stark's Esophagus Surveilance 02/26/2025 02/26/2022, 02/26/2022, 07/04/2021, Additional history exists DXA Scan 07/05/2025 07/05/2023, 10/19, 11/04/2018, Additional history exists TSH 08/19/2025 08/19/2024, 07/19, 01/21/2024, Additional history exists CKD HGB USE SMARTSET 49582 08/25/202508/25, 08/25/2024, 08/19/2024, Additional history exists DTap/Tdap Vaccines (2 - Td or Tdap) 08/19/2027 08/19/2017, 08/20/2008 Pneumococcal Vaccine: 65+ Years Completed 06/23/2015, 05/14/2013, 04/18/2004 Zoster Vaccines Completed 12/02/2020, 08/15/2020 VITAMIN D LEVEL ONCE IN A LIFETIME-USE SMARTSET# [id number] Completed 04/22/2023, 08/28/2021, 07/14/2015 COVID-19 Vaccine Completed [...] this encounter Medical Devices Implanted Type Area Transformer Shop Supervisor Device Identifier Shelf Expiration Date Model / Serial / Lot Power Port 8fr Sngl Lumen Plas - [id number] Implanted:Qty: 1 on 02/22/2022 at [facility] CR BARD : PERIPHERAL VASCULAR [id number] 02/15/2023 [id number] / / [id number] documented as of this encounter Visit Diagnoses Diagnosis Cellulitis of left lower leg Cellulitis and abscess of leg, except foot Stark's esophagus with dysplasia Stark's esophagus documented in this encounter Advance Directives * Full Code (Latest Code Status on File) Date Activated Date Inactivated Comments 09/03/2007 7:29 AM 09/03/2007 4:02 PM Care Teams Sailboat Captain Relationship Specialty Start Date End Date Bell Mcqueen MD [address] [place] [address] [place] [phone] PCP - General Family Medicine 06/24/24 documented as of this encounter
--- OUTSIDE RECORDS SUMMARY | 2024-09-02 11:45 | External Medical Summary | Summary of Care ---
Author Name Unknown Organization [facility] Address [address] [place] [address] Phone [phone] Care Team Providers Care Tumbler Operator Name Role Phone Bell Mcqueen MD Primary Care Provide r Reason for Visit * Reason Onset Date Comments Medication Management 08/27/2024 Encounter Details Date Type Department Care Team (Late st Contact Info) Description 08/27/2024 Telephone Hematology/Oncology [facility] [place] [address] [facility] [place] [phone] [facility]on [facility] [address] Medication Management Allergies Active Allergy Reactions Criticality [...] albuterol 120 mL 5 11/21/2022 Active Ipratropium [place] 0.02 % Inhalation Solution (Atrovent)Indicatio ns:Moderate persistent [...] INSTRUCTED BY [facility] 90 Tablet 3 05/07/2024 Active [...] Respimat 2.5 MCG/ACT Inhalation Aerosol Solution (Tiotropium [place] Monohydrate)Indicat ions:Moderate persistent asthma without complication INHALE 2 PUFFS BY MOUTH EVERY DAY 12 g 3 07/28/2024 Active ProAir HFA 108 (90 Base) MCG/ACT Inhalation Aerosol SolutionIndications :Moderate persistent asthma with exacerbation Inhale 2 Puffs by mouth every 4 hours as needed for Wheezing. 8.5 g 2 07/29/2024 Active Fluticasone Propionate 50 MCG/ACT Nasal Suspension (Flonase)Indication s:Acute cough Administer 1 [place] into each nostril 2 times a day. [...] rinse after steroid. Test performed by Sameer HABILITATION TRAINING SPECIALIST CPFT Pleural plaque due to asbestos exposure Restrictive lung disease Overview: In Check dial performed to assess inhaler technique: 12/15/19 Name of inhalers Albuterol Pass: Yes at 60 L/min and Advair Pass: Yes at 60 L/min. Encouraged to to take deep breath, use aero chamber, and rinse after steroid. Test performed by Sameer HABILITATION TRAINING SPECIALIST CPFT Hx of pulmonary embolus 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 Overview: [place] C0-M6 documented as of this encounter (statuses [...] mRNA, LNP-s, No Pre serve, 2-Dose Series ([employer]) 12/01/2021,01/16/2021,12/26/2020 COVID-19, LNP-s, No Preserve , Ozzy-sucrose, Ages 12+ (Pfizer) 12/01/2021 COVID-19, MRNA-LNP, 23-24, P F, 30 MCG/0.3 mL, 12 YRS AND ABOVE, IM ([facility]) 09/18/2023 COVID-19, MRNA-LNP, 24-25, P R, 30MCG/0.3ML, IM, 12YRS AND ABOVE ([facility] 08/20/2024 Covid-19, Mrna, Lnp-s, Pf, B ivalent, 30 Mcg, IM, 12 yrs and above ([employer]) 10/09/2022 Pneumococcal Conjugate Vacc, 13 Valent (Prevnar) [...] 08/27/2024 7:53 AM EDT [facility] [place] [facility] built and routed to provider No prior authorization required. Patient scheduled today documented in this encounter Plan of Treatment Upcoming Encounters Date Type Department Care Team (Latest Contact Info) Description 4 2:45 PM EDT Hem/Onc Treatment Hematology/Onc ology Treatment, [place] [address] [place] [phone] Marylou, Chair 2 Hem [facility] [address] [address] 4 10:20 AM EDT Laboratory Laboratory [address] [place] [phone] [place] [address] 4 6:30 AM EDT Anticoagulation Centralized Clinical Pharmacy Services, Angela Giles [address] [place] [address] [place] [address] [facility], [address] [place] [address] 4 1:45 PM EDT Hem/Onc Treatment Hematology/Onc ology Treatment, [place] [address] [facility], [place] [phone] 4 2:00 PM EDT Office Visit Cardiology, [facility] [address] [facility] [place] [address] Chas Wilkinson PA-C [address] [place] [address] 4 1:00 PM EST Nurse Only Hematology/Onc ology Treatment, [place] [address] [facility], [place] [phone] Marylou, Chair 5 Hem Onc [address] [place] [address] 4 9:30 AM EST Hospital Encounter ENDO [facility], Endoscopy Suite, HFAM 1, [address] [place] [address] Domingo Garcia DO [address] [place] [address] 4 9:30 AM EST - 4 10:45 AM EST Surgery ENDO [facility], Endoscopy Suite, HFAM 1, [address] [place] [address] Domingo Garcia DO [address] [place] [address] ESOPHAGOGASTRODUODENOSCOPY (EGD), FLEXIBLE, TRANSORAL, DIAGNOSTIC 5 11:15 AM EST Office Visit Hematology/Onc ology [facility] [place] [address] [facility] [place] [phone] Ramno Cadet MD [address] [place] [address] 11:20 AM EST Office Visit Family Medicine [address] [place] [phone] Bell Mcqueen MD [address] [place] [address] [place] [address] Scheduled Procedures Name Priority Associated Diagnoses Date/Ti me ESOPHAGOGASTRODUODENOSCOPY ( EGD), FLEXIBLE, TRANSORAL, DIAGNOSTIC Recall Stark's esophagus with dysplasia 11/05/2024 9:30 AM EST COLONOSCOPY FLEXIBLE PROXIMA L DIAGNOSTIC Recall Stark's esophagus with dysplasia 11/05/2024 9:30 AM EST Health Maintenance Due Date Last Done Comments Adult Wellness Visit 2003 Depression Screening 07/12/2021 07/12/2020 CKD PHOS USE SMARTSET 24321 08/21/2022 1002/2021, 07/12/2020, 03/13/2019, Additional history exists *BISPHONATE OR OTHER ACCEPTABLE MEDICATION NEEDED FOR OSTEOPOROSIS (REFER TO SMARTSET #1146) 10/14/2023 Albumin/Creatinine Ratio 04/22/2024 023, 05/24/2022, 03/26/2022, Additional history exists Stark's Esophagus Surveilance 02/26/2025 02/26/2022, 02/26/2022, 07/04/2021, Additional history exists DXA Scan 07/05/2025 07/05/2023, 10/19, 11/04/2018, Additional history exists TSH 08/19/2025 08/19/2024, 07/19, 01/21/2024, Additional history exists CKD HGB USE SMARTSET 86305 08/25/202508/25, 08/25/2024, 08/19/2024, Additional history exists DTap/Tdap Vaccines (2 - Td or Tdap) 08/19/2027 08/19/2017, 08/20/2008 Pneumococcal Vaccine: 65+ Years Completed 06/23/2015, 05/14/2013, 04/18/2004 Zoster Vaccines Completed 12/02/2020, 08/15/2020 VITAMIN D LEVEL ONCE IN A LIFETIME-USE SMARTSET# [id number] Completed 04/22/2023, 08/28/2021, 07/14/2015 COVID-19 Vaccine Completed [...] this encounter Medical Devices Implanted Type Area Fast Food Team Member Device Identifier Shelf Expiration Date Model / Serial / Lot Power Port 8fr Sngl Lumen Plas - [id number] Implanted:Qty: 1 on 02/22/2022 at [facility] CR BARD : PERIPHERAL VASCULAR [id number] 02/15/2023 [id number] / / [id number] documented as of this encounter Advance Directives * Full Code (Latest Code Status on File) Date Activated Date Inactivated Comments 09/03/2007 7:29 AM 09/03/2007 4:02 PM Care Teams Tumbler Operator Relationship Specialty Start Date End Date Bell Mcqueen MD [address] [place] [address] [place] [address] PCP - General Family Medicine 06/24/24 documented as of this encounter
--- OUTSIDE RECORDS SUMMARY | 2024-09-02 11:45 | External Medical Summary | Summary of Care ---
Author Name Unknown Organization [facility] Address [address] [place] [address] Phone [phone] Care Team Providers Care Offal Trimmer Name Role Phone Bell Mcqueen MD Primary Care Provide r Reason for Visit * Reason Comments Follow Up Return Encounter Details Date Type Department Care Team (Late st Contact Info) Description 08/26/2024 1:15 PM EDT Office Visit [facility]ematology[facility]On[facility] [place] [address] [facility] [place] [phone] Ramon Cadet MD [address] [facility] [place] [address] Iron deficiency anemia, unspecified iron deficiency anemia type*; Anemia due to stage 3b chronic kidney disease (HCC); Carcinoma of bladder (HCC) Allergies Active Allergy Reactions Criticality Noted Date Comments Penicillins Other (Please comment),Rash High Eyes swell Pollen 05/03/2022 Wound Dressing Adhesive Rash 05/02/2023 Patient reported Olanzapine Neuro complications (Please comment) 04/09/2024 documented as of this encounter (statuses as of 08/26/2024) Medications Medication Sig Dispensed Refills Start Date [...] albuterol 120 mL 5 11/21/2022 Active Ipratropium [place] 0.02 % Inhalation Solution (Atrovent)Indicatio ns:Moderate persistent [...] EVENING. OR TAKE INSTRUCTED BY THE [facility] 90 Tablet 3 05/07/2024 Active [...] Respimat 2.5 MCG/ACT Inhalation Aerosol Solution (Tiotropium [place] Monohydrate)Indicat ions:Moderate persistent asthma without complication INHALE [...] as of this encounter (statuses as of 08/26/2024) Active Problems Problem Noted Date Diagnosed Date [...] rinse after steroid. Test performed by Sameer PETROGRAPHY TEACHER CPFT Pleural plaque due to asbestos exposure Restrictive lung disease Overview: In Check dial performed to assess inhaler technique: 12/15/19 Name of inhalers Albuterol Pass: Yes at 60 L/min and Advair Pass: Yes at 60 L/min. Encouraged to to take deep breath, use aero chamber, and rinse after steroid. 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 Overview: [place] C0-M6 documented as of this encounter (statuses as of 08/26/2024) Resolved Problems Problem Noted Date Diagnosed Date [...] Malignant neoplasm of prostate 09/23/2008 03/27/2018 Overview: [place] grade 3 Atrial flutter 09/02/2007 10/16/2007 Herpes [...] as of this encounter (statuses as of 08/26/2024) Immunizations Name Administration Dates Next Due COVID-19 mRNA, LNP-s, No Pre serve, 2-Dose Series (EXPO) 12/01/2021,01/16/2021,12/26/2020 COVID-19, LNP-s, No Preserve , Ozzy-sucrose, Ages 12+ (EXPO) 12/01/2021 COVID-19, MRNA-LNP, 23-24, P F, 30 MCG/0.3 mL, 12 YRS AND ABOVE, IM ([facility] 09/18/2023 COVID-19, MRNA-LNP, 24-25, P R, 30MCG/0.3ML, IM, 12YRS AND ABOVE ([employer]) 08/20/2024 Covid-19, Mrna, Lnp-s, Pf, B ivalent, 30 Mcg, IM, 12 yrs and above (EXPO) 10/09/2022 Pneumococcal Conjugate Vacc, 13 Valent (Prevnar) [...] Sign Reading Time Taken Comments Blood Pressure 90/57 08/26/2024 1:08 PM EDT Pulse 90 08/26/2024 1:08 PM EDT Temperature 36.2 C (97.2 F) 08/26/2024 1:08 PM ED T Respiratory Rate - - Oxygen Saturation 85% 08/26/2024 1:08 PM EDT Inhaled Oxygen Concentration - - Weight 63.9 kg (140 lb 14.4 oz) 08/26/2024 1:08 PM EDT Height - - Body Mass Index 24.96 06/01/2024 9:58 AM EDT documented in this encounter Progress Notes * Ramon Cadet MD - 08/26/2024 1:15 PM EDT Hematology/Oncology Outpatient Clinic note Eugenia Hickman [address] [place] [address] NAME: Patrick Robles :1935 89-year-old male, DIAGNOSIS: -anemia, appears to be multifactorial, has abnormal kidney function (stage 3b) causing anemia, dilutional anemia, history of bladder cancer, recent UTI epididymitis also causing anemia. - -stool for occult blood positive also causing anemia. He did receive IV iron in the form Venofer, last treatment was received in November of 2023. CURRENT TREATMENT: Currently he is on erythropoietin initially [place] 14696 units, [place] 88941 units since 2021 -05/13/2024--> [place] [address] units. - 08/26/2024 --> would like to start intravenous iron the form Venofer every other week for 3 months. Regarding bladder cancer, currently he is under observation, he gets periodic cystoscopic, next 1 is scheduled in August of 2024. PREVIOUS TREATMENT: Keytruda, received 1st dose on 03/02/2022 to 04/23/2023 then it was discontinued because of the question of myocarditis Low does gemcitabine concurrent with radiation therapy. Received last dose of gemcitabine on 10/03/2021 OTHER IMPORTANT HISTORY: COPD, GERD, CKD paroxysmal supraventricular tachycardia, history of pulmonary embolism, Stark's esophagus, partial colectomy (for tubovillous adenoma), mitral valve repair, aortic valve replacement, hernia repair, total left knee replacement and pacemaker placement. Atrial fibrillation DX 2003 - ON [place]; follows with Dr. Rainey Status post mitral valve repair Status post aortic valve replacement "bioprosthetic" Bladder cancer dx 05/2021; TURBT, chemo + radiation History of pulmonary embolism FOLLOWING SHOULDER SURGERY APPROX 5 YEARS -NO ISSUES SINCE Pacemaker TACHY-HOLA SYNDROME. ALSO HX OF A-FIB. LAST CHECKED 11/2021 - [facility] Tachy-hola syndrome Carotid artery disease Spinal stenosis of lumbar region INTERVAL HISTORY: He has come the clinic for the follow-up, ambulating slowly by himself, accompanied by his in the office. Recently he was admitted at [facility] on 2 occasions, reviewed the hospital records, had congestive heart failure, upper GI endoscopic was done in May 2024, gastric polyp noted with some local bleeding which maybe the cause of the GI blood loss in his case. He receives erythropoietin 86636 units every weekly. He also takes oral iron 1 tablet every day. - His last cystoscopy was in 02/2024 with no masses tumors lesions or other areas of concern withinthe bladder. He is scheduled for follow-up cystoscopy in August with Dr. Gardenr He has bilateral leg edema. He follows with the Wound Care clinic as he has significant oozing fromboth lower extremities. Weight gain by about 3 lb noted. Diuretic dose has been increased recently. 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 [place] C0-M6 Benign neoplasm of colon 03/09/2002 Benign neoplasm of colon 09/21/2009 2 tubular adenomas removed BPH without obstruction/lower urinary tract symptoms 01/2006 Dr Goodwin Calcifying tendinitis of shoulder 10/03/2000 Cardiac pacemaker in situ 10/01/2017 Cataract 06/2012 [place] Cellulitis of leg, left 05/18/2024 Seen in [facility] ER for cellulitis and altered mental status, given doxycyycline Cholelithiases COVID-19 10/25/2020 [facility] Diastolic CHF with preserved left ventricular function, NYHA class 4 (HCC) 08/08/2024 [facility] DIASTOLIC DYSFUNCTION 11/22/2004 GRADE II Diverticulosis of colon Dyslipidemia, goal LDL below 70 Epididymitis 03/31/2024 admitted [facility] Fractured rib 09/25/2022 fractures of right 6-10 Generalized osteoarthritis Herniated nucleus pulposus, L4-5 right Hiatal hernia Hx of pulmonary embolus Hypertensive heart disease 11/22/2004 mild concentric lvh on stress echo 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) Left ventricular diastolic dysfunction, NYHA class 1 Grade I impaired relaxation Long-segment Stark's esophagus 07/28/2020 [place] C0-M5 Malignant neoplasm of prostate (HCC) 09/23/2008 [place] grade 3 Malignant neoplasm of sigmoid colon (HCC) [address] ham at [place] Moderate persistent asthma without complication Norovirus 04/05/2024 Paroxysmal SVT (supraventricular tachycardia) (HCC) 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 Dillard ARTHROPLASTY KNEE TOTAL Left 05/09/2017 Dr Bautista [facility] BIOPSY OF PROSTATE 09/23/2008 Dr Goodwin BIOPSY [...] DIAGNOSTIC (RECTUM) 06/02/2015 TA polyp, referred to surgery/[facility] COLONOSCOPY, DIAGNOSTIC (RECTUM) 06/09/2018 normal/[facility] COLONOSCOPY, REMOVE LESION, CAUTERY 09/21/2009 anastomosis at [...] 60% LVH EGD, FLEXIBLE, DIAGNOSTIC 06/02/2015 mild gastritis/[facility] EGD, FLEXIBLE, DIAGNOSTIC 06/09/2018 [place], hiatal hernia, gastric polyp, repeat 1 yr/[facility] EGD, FLEXIBLE, DIAGNOSTIC 07/07/2019 [place] / [facility] EGD, FLEXIBLE, DIAGNOSTIC N/A 12/01/2019 ESOPHAGOGASTRODUODENOSCOPY (EGD), FLEXIBLE, TRANSORAL, DIAGNOSTIC performed by Domingo Garcia DO at ENDOSCOPY [facility] EGD, FLEXIBLE, DIAGNOSTIC N/A 03/14/2020 Partially treated Strak's stage C0-M9 per [place] Criteria Multiple gastric polyps, performed by Domingo Garcia DO at ENDOSCOPY [facility] EGD, FLEXIBLE, DIAGNOSTIC N/A 05/25/2020 6 cm [place] C0-M6 [place] lower esophagus, with radiofrequency ablation, performed by Domingo Garcia DO at ENDOSCOPY [facility] EGD, FLEXIBLE, DIAGNOSTIC N/A 07/28/2020 long segment Stark's [place] C0-M5, with nodlule at 31 cm, performed by Domingo Garcia, at ENDOSCOPY [facility] EGD, FLEXIBLE, DIAGNOSTIC N/A 09/28/2020 C0-M1 [place], gastric polyps, 3 cm hiatal hernia, performed by Domingo Garcia, at ENDOSCOPY [facility] EGD, FLEXIBLE, DIAGNOSTIC N/A 11/30/2020 residual Stark's, performed by Domingo Garcia, DO at ENDOSCOPY [facility] EGD, FLEXIBLE, DIAGNOSTIC N/A 01/31/2021 residual Stark's EGD, FLEXIBLE, DIAGNOSTIC N/A 01/31/2021 ESOPHAGOGASTRODUODENOSCOPY (EGD), FLEXIBLE, TRANSORAL, DIAGNOSTIC performed by Domingo Garcia, at ENDOSCOPY [facility] EGD, FLEXIBLE, DIAGNOSTIC N/A 07/04/2021 ESOPHAGOGASTRODUODENOSCOPY (EGD), FLEXIBLE, TRANSORAL, DIAGNOSTIC performed by Domingo Garcia DO at ENDOSCOPY [facility] EGD, FLEXIBLE, DIAGNOSTIC 02/26/2022 short segment Stark's at 31 cm, GE flap Hill Grade IV, 4 cm hiatal hernia EGD, FLEXIBLE, DIAGNOSTIC N/A 02/26/2022 ESOPHAGOGASTRODUODENOSCOPY (EGD), FLEXIBLE, TRANSORAL, DIAGNOSTIC performed by Domingo Garcia DO at ENDOSCOPY [facility] EGD, FLEXIBLE, LESION ABLATION N/A 07/04/2021 2 cm hiatal hernia, Ablation of [place] C0-M1 Stark's, multiple fundic gland polyps ELECTROPHYSIOLOGIC [...] DDD NM BONE SCAN WHOLEBODY 10/06/2008 METs, [facility] NM HEPATOBILIARY SYSTEM WITH PHARMACOLOGIC INTERVENTION N/A 11/20/2016 no cystic duct obstruction PARTIAL REMOVAL OF COLON 04/21/2002 for tubulovillous adenoma, Dr Beasley at [facility] PARTIAL REMOVAL OF COLON 08/08/2015 right colectomy 08/08/2015 dr. de leon [facility] REMOVE CATARACT, INSERT LENS PROSTH 07/2012 Dr. [...] Right is 70-99% with plaque, left <50% Current Outpatient Medications Medication Sig Dispense Refill CO Q10 100 MG PO TABS 1 tab once daily ZOVIRAX 5 % EX OINT 5 times daily as needed. Polyethylene Glycol 3350 17 GM Oral Packet Take 1 Packet by mouth in the morning. 14 Each 0 Vitamin B12 500 MCG Oral Tablet [...] Mix with albuterol 120 mL 5 Ipratropium [place] 0.02 % Inhalation Solution (Atrovent) Inhale 2.5 mL via nebulizer in the morning and 2.5 mL at noon and 2.5 mL in the evening and 2.5 mL before bedtime. Mix with albuterol solution. 75 mL 12 predniSONE 5 MG Oral Tablet (Deltasone) TAKE 1 TABLET BY MOUTH EVERY DAY 90 Tablet 2 Benzonatate 100 MG Oral Capsule (Tessalon Perles) Take 1 Capsule by mouth 3 times a day as needed for Cough. Ferrous Sulfate 325 (65 Fe) MG Oral Tablet (Feosol) TAKE ONE TABLET BY MOUTH WITH FOOD DAILY 90 Tablet 3 Warfarin Sodium 5 MG Oral Tablet (Coumadin) TAKE 0.5-1 TABLETS BY MOUTH EVERY EVENING. OR TAKE INSTRUCTED BY THE [facility] 90 Tablet 3 Tamsulosin HCl 0.4 MG Oral Capsule (Flomax) Take 1 Capsule by mouth in the morning. 90 Capsule 3 Spironolactone 25 MG Oral Tablet (Aldactone) TAKE 1/2 TABLET BY MOUTH IN THE MORNING 45 Tablet 3 Rosuvastatin Calcium 10 MG Oral Tablet (Crestor) TAKE 1 TABLET BY MOUTH EVERY DAY 90 Tablet 2 Esomeprazole Magnesium 40 MG Oral Capsule Delayed Release TAKE 1 CAPSULE BY MOUTH TWICE A DAY 180 Capsule 1 Spiriva Respimat 2.5 MCG/ACT Inhalation Aerosol Solution (Tiotropium [place] Monohydrate) INHALE 2 PUFFS BY MOUTH EVERY DAY 12 g 3 ProAir HFA 108 (90 Base) MCG/ACT Inhalation Aerosol Solution Inhale 2 Puffs by mouth every 4 hours as needed for Wheezing. 8.5 g 2 Fluticasone Propionate 50 MCG/ACT Nasal Suspension (Flonase) Administer 1 [place] into each nostril 2times a day. 16 mL 1 Torsemide 10 MG Oral Tablet (Demadex) Take 1 Tablet by mouth in the morning. Potassium Chloride Ruth ER 10 MEQ Oral Tablet Extended Release Take 1 Tablet by mouth in the morning. Magnesium 125 MG Oral Capsule Take 250 mg by mouth daily. traZODone HCl 50 MG Oral Tablet (Desyrel) Take 1 Tablet by mouth at bedtime. 30 Tablet 5 Levothyroxine Sodium 150 MCG Oral Tablet (Levoxyl) One daily (at least 30 min prior to breakfast orother meds) 90 Tablet 1 No current facility-administered medications for this visit. Family History Problem Relation Name Age of Onset Arthritis Mother Other (cataract) Mother Heart Disorder Father [place] in his 50's Diabetes Brother Cancer Brother Esophagus Asthma Son Arthritis Son Social History Socioeconomic History Marital status: Spouse [...] Narrative Used to spend the winter in [place]. In 2018 they are doing a cruise for 15 days. Social Determinants of Health Financial Resource Strain: Not on file Food Insecurity: No Food Insecurity (01/22/2020) Hunger Vital Sign Worried About Running Out of Food in the Last Year: Never true Ran Out of Food in the Last Year: Never true Transportation Needs: Not on file Social Connections: Unknown (08/25/2024) Social Connections How often do you feel lonely or isolated from those around you? (Adult - for ages 18 years and over): Not on file Housing Stability: Not on file On exam: BP 90/57 (BP Site: Left Arm, BP Position: Sitting, BP Cuff Size: Regular) | Pulse 90 | Temp 36.2 C (97.2 F) (Oral) | Wt 63.9 kg (140 lb 14.4 oz) | SpO2 85% | BMI 24.96 kg/m | BSA 1.69 m Constitutional: Patient is alert, cooperative and oriented x 3. Well built man, Patient is in no acute distress. HEENT:No icterus, no pallor, Throat and pharynx normal. Sinuses are non-tender. Neck: Supple and without lymphadenopathy or masses. No JVD. No Palpable supraclavicular lymph nodes. Lungs: Clear to auscultation. Bilateral symmetric air entry. No wheezing or rhonchi. Cardiovascular: Normal heart sounds, no murmurs.Regular rate and rhythm. Abdomen: soft, nontender, no hepatomegaly, no splenomegaly. Bowel sounds are normal. Neurological: No gross focal neurological deficit; walks with a normal gait. Extremities: No finger clubbing, No cyanosis. leg edema +. Skin:: No skin rash. SPINE: No spinal or paraspinal tenderness. LABS: Blood workup done on 05/12/2024: -WBC 4500, H&H of 8.2/31, Platelet count of 118,000 -MCV 100.6 Stool for occult blood --> positive (05/07/2024) Anemia workup done on 04/28/2024: -BUN/Creat: 31/1.3, normal LFT, Calcium 8.7 -Ferritin level --> 218 -Serum iron: 74, TIBC 313, iron saturation 24%. Blood workup done on 08/25/2024: -WBC 4300, Hemoglobin and hematocrit -7.7/28.3, Platelet count of 793432. Anemia workup done on 08/19/2024: -Ferritin level--> 74 -Serum iron: 114, TIBC 348, iron saturation 33% -folic acid --> 6.5, Vitamin B12--> 894. IMAGING: CT chest on 04/01/2024 at [facility] ) 1. Cardiomegaly with evidence of pulmonary arterial hypertension. 2. Mild pulmonary edema with small pleural effusions and anasarca. 3. Mild dependent subsegmental atelectasis. 4. 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 CT scan of the abdomen pelvis on 03/31/2024: - 1. Suboptimal examination without oral and IV contrast. There is also streak and motion artifact. 2. Cardiomegaly and small pleural effusions. 3. Anasarca of the body wall and trace abdominopelvic ascites suggest fluid overload. 4. There is evidence of chronic bladder outlet obstruction as well as persistent infiltration. Correlate with clinical findings and urinalysis for evidence of cystitis. 5. There is liquid stool seen throughout the colon with mild rectal wall thickening. Correlate clinically for evidence of a nonspecific proctitis/diarrheal illness. 6. Cholelithiasis. 7. Bilateral nephrolithiasis. -left lower extremity Doppler evaluation --> negative for DVT (May 2024 at [facility]). ASSESSMENT AND PLAN: 89-year-old male, who has longstanding history of anemia, appears to be multifactorial nature, has abnormal kidney function tests causing anemia, has heart failure, volume overload so dilutional factor maybe playing a role, recent the stool for occult blood testing x2 positive suggest some ongoing blood loss, also has some recurrent infections, UTI, epididymitis, treatment antibiotic treatment also contributing to the anemia. He is on [place]ropoietin treatment since 2021[place] [address] [place] weekly. He did receive 2 units of PRBC earlier in May 2024 when he was admitted at [facility]. Hewould receive IV iron therapy, last time was received in November of 2023 He had upper GI endoscopy earlier in May 2024, bleeding gastric polyp noted. I reviewed his blood workup, hemoglobin dropped down to around 7.7 g/dL, will continue erythropoietin 70431 units every weekly. No blood transfusion at this time. Slight dilutional effect would be also possible with 3 lb weight gain related to the congestive heart failure. She is already on oral iron supplementation 1 tablet every day. I would like to start intravenous iron in the form of Venofer 300 mg every other week for 3 months. Previous history of bladder cancer noted, currently under observation, he is scheduled for next cystoscopic evaluation by Dr. Gardner in August of 2024. Previous history of Stark's esophagus noted, previous history of colonic polyps noted, gastric polyp is local bleeding noted, he is having follow-up endoscopic evaluation in October 2024 Will see him back in about [address] Ramon Cadet Hem/Onc (This note was completed using the dictation program Fluency Direct. As such, there may be misspellings word substitutions, or other variations that should not change the essence of the clinical content of this encounter note. If there is need for further clarification, please direct questions to the provider listed above.) documented in this encounter Nursing Notes * Tammie Everett, RUBIO - 08/26/2024 1:09 PM EDT Patient identifed by name and birthdate Do you have any concerns about pain management for today's visit? Yes. Patient instructed to discuss pain concerns with provider during the visit today Living Will or Advance Directive for Health Care as noted on the problem list. [facility] is a way you can talk to your provider on line through e-mail. Would you like to sign up? I can activate it for you? ALREADY ACTIVE Filed Vitals: 08/26/24 1308 BP: 90/57 Pulse: 90 Temp: 36.2 C (97.2 F) TempSrc: Oral SpO2: 85% Weight: 63.9 kg (140 lb 14.4 oz) Patient was instructed to not get [...] PM EDT Hem/Onc Treatment Hematology/Onc ology [address], [address] [phone] Park, Chair 2 Hem Onc [address] [place] [address] 4 10:20 AM EDT Laboratory Laboratory [address] [place] [phone] [place] [address] 4 6:30 AM EDT Anticoagulation Centralized Clinical Pharmacy Services, Angela Giles [address] [place] [address] [place] [address] [place] [address] 4 1:45 PM EDT Hem/Onc Treatment Hematology/Onc ology Treatment, [address] [place] [phone] 4 2:00 PM EDT Office Visit Cardiology, [facility] [address] [place] [address] Chas Wilkinson PA-C [address] [place] [address] 4 1:00 PM EST Nurse Only Hematology/Onc ology Treatment, [address] [place] [phone] Park, Chair 5 Hem Onc [address] [place] [address] 4 9:30 AM EST Hospital Encounter ENDO [facility], Endoscopy Suite, HFAM 1, [address] [place] [address] Domingo Garcia, [address] [place] [address] 4 9:30 AM EST - 4 10:45 AM EST Surgery ENDO [facility], Endoscopy Suite, [facility] 1, [address] [place] [address] Domingo Garcia DO [address] [place], [place] [id number] ESOPHAGOGASTRODUODENOSCOPY (EGD), FLEXIBLE, TRANSORAL, DIAGNOSTIC 5 11:15 AM EST [facility] [address] [place] [phone] Ramon Cadet MD [address] [place] [address] 5 11:20 AM EST Office Visit Family Medicine [address] [phone] Bell Mcqueen MD [address] [place] [address] [place] [address] Scheduled Procedures Name Priority Associated Diagnoses Date/Ti me ESOPHAGOGASTRODUODENOSCOPY ( EGD), FLEXIBLE, TRANSORAL, DIAGNOSTIC Recall Stark's esophagus with dysplasia 11/05/2024 9:30 AM EST COLONOSCOPY FLEXIBLE PROXIMA L DIAGNOSTIC Recall Stark's esophagus with dysplasia 11/05/2024 9:30 AM EST Health Maintenance Due Date Last Done Comments Adult Wellness Visit 2003 Depression Screening 07/12/2021 07/12/2020 CKD PHOS USE SMARTSET 57677 08/21/2022 10/0 02/2021, 07/12/2020, 03/13/2019, Additional history exists *BISPHONATE OR OTHER ACCEPTABLE MEDICATION NEEDED FOR OSTEOPOROSIS (REFER TO SMARTSET #1146) 10/14/2023 Albumin/Creatinine Ratio 04/22/2024 023, 05/24/2022, 03/26/2022, Additional history exists Stark's Esophagus Surveilance 02/26/2025 02/26/2022, 02/26/2022, 07/04/2021, Additional history exists DXA Scan 07/05/2025 07/05/2023, 10/19, 11/04/2018, Additional history exists TSH 08/19/2025 08/19/2024, 07/19, 01/21/2024, Additional history exists CKD HGB USE SMARTSET 65727 08/25/202508/25, 08/25/2024, 08/19/2024, Additional history exists DTap/Tdap Vaccines (2 - Td or Tdap) 08/19/2027 08/19/2017, 08/20/2008 Pneumococcal Vaccine: 65+ Years Completed 06/23/2015, 05/14/2013, 04/18/2004 Zoster Vaccines Completed 12/02/2020, 08/15/2020 VITAMIN D LEVEL ONCE IN A LIFETIME-USE SMARTSET# [id number] Completed 04/22/2023, 08/28/2021, 07/14/2015 COVID-19 Vaccine Completed [...] this encounter Medical Devices Implanted Type Area Loss Prevention Operations Manager Device Identifier Shelf Expiration Date Model / Serial / Lot Power Port 8fr Sngl Lumen Plas - [id number] Implanted:Qty: 1 on 02/22/2022 at [facility] : PERIPHERAL VASCULAR [id number] 02/15/2023 [id number] / / [id number] documented as of this encounter Visit Diagnoses Diagnosis Iron deficiency anemia, unspecified iron deficiency anemia type- Primary Anemia due to stage 3b chronic kidney disease (HCC) Carcinoma of bladder (HCC) Malignant neoplasm of bladder, part unspecified Stark's esophagus with dysplasia Stark's esophagus documented in this encounter Advance Directives * Full Code (Latest Code Status on File) Date Activated Date Inactivated Comments 09/03/2007 7:29 AM 09/03/2007 4:02 PM Care Teams Offal Trimmer Relationship Specialty Start Date End Date Bell Mcqueen MD [address] [place] [address] [place] [phone] PCP - General Family Medicine 06/24/24 documented as of this encounter
--- OUTSIDE RECORDS SUMMARY | 2024-09-02 11:45 | External Medical Summary | Summary of Care ---
Author Name Unknown Organization [facility] Address [address] [place] [address] Phone [phone] Care Team Providers Care Videotape Recording Engineer Name Role Phone Bell Mcqueen MD Primary [...] stage 3b chronic kidney disease (HCC) Procedures IN INJ RETACRIT NON-ESRD USE IN THERAPEUTIC PROPHYLACTIC/DX INJECTION SUBQ/IM IN EPOETIN IVAN, NON-ESRD Ludwig Louis MD [address] [facility] [place] [address] Anc Hem/Onc Dony Hickman DEPT CLOSED - 10/01/23 [address] [place] [phone] Referral ID Status Reason Start Date Expiration Date V isits Requested Visits Authorized [id number] Authorized 07/23/2024 10/15/[phone] Encounter Details Date Type Department Care Team (Latest Contact Info) Description 08/26/2024 1:45 PM EDT Hem/Onc Treatment Hematology/Oncology Treatment, [place] [address] [facility] [place] [phone] Carcinoma of bladder (HCC)*; Iron deficiency [...] albuterol 120 mL 5 11/21/2022 Active Ipratropium [place] 0.02 % Inhalation Solution (Atrovent)Indicatio ns:Moderate persistent [...] EVERY EVENING. OR TAKE INSTRUCTED BY [facility] 90 Tablet 3 05/07/2024 Active [...] Respimat 2.5 MCG/ACT Inhalation Aerosol Solution (Tiotropium [place] Monohydrate)Indicat ions:Moderate persistent asthma without complication INHALE 2 PUFFS BY MOUTH EVERY DAY 12 g 3 07/28/2024 Active ProAir HFA 108 (90 Base) MCG/ACT Inhalation Aerosol SolutionIndications :Moderate persistent asthma with exacerbation Inhale 2 Puffs by mouth every 4 hours as needed for Wheezing. 8.5 g 2 07/29/2024 Active Fluticasone Propionate 50 MCG/ACT Nasal Suspension (Flonase)Indication s:Acute cough Administer 1 [place] into each nostril 2 times a day. [...] rinse after steroid. Test performed by Sameer CARPET FLOOR LAYER APPRENTICE CPFT Pleural plaque due to asbestos exposure Restrictive lung disease Overview: In Check dial performed to assess inhaler technique: 12/15/19 Name of inhalers Albuterol Pass: Yes at 60 L/min and Advair Pass: Yes at 60 L/min. Encouraged to to take deep breath, use aero chamber, and rinse after steroid. Test performed by Sameer CARPET FLOOR LAYER APPRENTICE CPFT Hx of pulmonary embolus 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 Overview: [place] C0-M6 documented as of this encounter (statuses [...] Malignant neoplasm of prostate 09/23/2008 03/27/2018 Overview: [place] grade 3 Atrial flutter 09/02/2007 10/16/2007 Herpes simplex virus infection 08/22/2005 04/05/2016 Anal fissure 06/04/2005 10/16/2007 detention current use of ant icoagulant therapy 05/30/2005 [...] mRNA, LNP-s, No Pre serve, 2-Dose Series (Crowdmark) 12/01/2021,01/16/2021,12/26/2020 COVID-19, LNP-s, No Preserve , Ozzy-sucrose, Ages 12+ (Crowdmark) 12/01/2021 COVID-19, MRNA-LNP, 23-24, P F, 30 MCG/0.3 mL, 12 YRS AND ABOVE, IM ([employer]kick) 09/18/2023 COVID-19, MRNA-LNP, 24-25, P R, 30MCG/0.3ML, IM, 12YRS AND ABOVE (Easy Tempo) 08/20/2024 Covid-19, Mrna, Lnp-s, Pf, B ivalent, 30 Mcg, IM, 12 yrs and above (Crowdmark) 10/09/2022 Pneumococcal Conjugate Vacc, 13 Valent (Prevnar) [...] as of this encounter Nursing Notes * Leana Sears LPN - 08/26/2024 2:11 PM EDT Pt arrived for MD appt- see notes. Pt also here for Retacrit injection. Hgb 7.7. BP WNL. Administered in TONI. Pt tolerated well. To return tomorrow for IV iron and retacrit next week. Pt and aware. Discharged in stable condition. documented in this encounter Plan of Treatment Upcoming Encounters Date Type Department Care Team (Latest Contact Info) Description 4 2:45 PM EDT Hem/Onc Treatment Hematology/Onc ology Treatment, [address] [phone] Marylou, Chair 2 Hem Onc [address] [place] [address] 4 10:20 AM EDT Laboratory Laboratory [address] [place] [phone] [place], [address] [place] [address] 4 6:30 AM EDT Anticoagulation Centralized Clinical Pharmacy Services, Angela Giles [address] [place] [address] [place] [address] [facility], [address] [place] [address] 4 1:45 PM EDT Hem/Onc Treatment Hematology/Onc ology Treatment, [address] [place] [phone] 4 2:00 PM EDT Office Visit Cardiology, [facility] [address] [place] [address] Chas Wilkinson PA-C [address] [place] [address] 4 1:00 PM EST Nurse Only Hematology/Onc ology Treatment, [address] [phone] Marylou, Chair 5 Hem Onc [address] [place] [address] 4 9:30 AM EST Hospital Encounter ENDO [facility], Endoscopy Suite, HFAM 1, [address] [place] [address] Domingo Garcia, [address] [place] [address] 4 9:30 AM EST - 4 10:45 AM EST Surgery ENDO [facility], Endoscopy Suite, HFAM 1, [address] [place] [address] Domingo Garcia DO [address] [place] [address] ESOPHAGOGASTRODUODENOSCOPY (EGD), FLEXIBLE, TRANSORAL, DIAGNOSTIC 5 11:15 AM EST Office Visit Hematology/Onc ology [facility] [address] [place] [phone] Ramon Cadet MD [address] [place] [address] 5 11:20 AM EST Office Visit Family [address] [phone] Bell Mcqueen MD [address] [place] [address] [place] [address] Scheduled Procedures Name Priority Associated Diagnoses Date/Ti me ESOPHAGOGASTRODUODENOSCOPY ( EGD), FLEXIBLE, TRANSORAL, DIAGNOSTIC Recall Stark's esophagus with dysplasia 11/05/2024 9:30 AM EST COLONOSCOPY FLEXIBLE PROXIMA L DIAGNOSTIC Recall Stark's esophagus with dysplasia 11/05/2024 9:30 AM EST Health Maintenance Due Date Last Done Comments Adult Wellness Visit 2003 Depression Screening 07/12/2021 07/12/2020 CKD PHOS USE SMARTSET 79202 08/21/2022 10/0 02/2021, 07/12/2020, 03/13/2019, Additional history exists *BISPHONATE OR OTHER ACCEPTABLE MEDICATION NEEDED FOR OSTEOPOROSIS (REFER TO SMARTSET #1146) 10/14/2023 Albumin/Creatinine Ratio 04/22/2024 023, 05/24/2022, 03/26/2022, Additional history exists Stark's Esophagus Surveilance 02/26/2025 02/26/2022, 02/26/2022, 07/04/2021, Additional history exists DXA Scan 07/05/2025 07/05/2023, 10/19, 11/04/2018, Additional history exists TSH 08/19/2025 08/19/2024, 07/19, 01/21/2024, Additional history exists CKD HGB USE SMARTSET 22864 08/25/202508/25, 08/25/2024, 08/19/2024, Additional history exists DTap/Tdap Vaccines (2 - Td or Tdap) 08/19/2027 08/19/2017, 08/20/2008 Pneumococcal Vaccine: 65+ Years Completed 06/23/2015, 05/14/2013, 04/18/2004 Zoster Vaccines Completed 12/02/2020, 08/15/2020 VITAMIN D LEVEL ONCE IN A LIFETIME-USE SMARTSET# [id number] Completed 04/22/2023, 08/28/2021, 07/14/2015 COVID-19 Vaccine Completed [...] encounter Medical Devices Implanted Type Area Health Policy Manager Device Identifier Shelf Expiration Date Model / Serial / Lot Power Port 8fr Sngl Lumen Plas - [id number] Implanted:Qty: 1 on 02/22/2022 at [facility] CR BARD : PERIPHERAL VASCULAR [id number] 02/15/2023 [id number] / / [id number] documented as of this encounter Visit Diagnoses [...] Date Dose Rate Site Epoetin Ivan-epbx (Retacrit) 57119 UNIT/ML inj 60,000 Units 60,000 Units, Subcutaneous, ONCE, On Sat08/26/24 at 1415, For 1 dose Given 08/26/2024 1:40 PM EDT 60,000 Units Arm Left Upper documented in this encounter Advance Directives * Full Code (Latest Code Status on File) Date Activated Date Inactivated Comments 09/03/2007 7:29 AM 09/03/2007 4:02 PM Care Teams Videotape Recording Engineer Relationship Specialty Start Date End Date Bell Mcqueen MD [address] [place] [address] [place] [phone] PCP - General Family Medicine 06/24/24 documented as of this encounter
--- OUTSIDE RECORDS SUMMARY | 2024-09-02 11:45 | External Medical Summary | Summary of Care ---
Author Name Unknown Organization [facility] Address [address] [place] [address] Phone [phone] Care Team Providers Care Handbag Parts Cutter Name Role Phone Bell Mcqueen MD Primary Care Provide r Reason for Visit * Reason Comments IV Therapy Venofer 11/23 Encounter Details Date Type Department Care Team (Latest Contact Info) Description 08/27/2024 2:45 PM EDT Hem/Onc Treatment Hematology/Oncology Treatment, [address] [phone] Mayrlou, Chair 2 Hem Onc [address] [address] Iron deficiency anemia, unspecified iron deficiency anemia type* Allergies Active Allergy Reactions Criticality Noted Date [...] albuterol 120 mL 5 11/21/2022 Active Ipratropium [place] 0.02 % Inhalation Solution (Atrovent)Indicatio ns:Moderate persistent [...] EVERY EVENING. OR TAKE INSTRUCTED BY THE [facility] 90 Tablet 3 05/07/2024 [...] Respimat 2.5 MCG/ACT Inhalation Aerosol Solution (Tiotropium [place] Monohydrate)Indicat ions:Moderate persistent asthma without complication INHALE 2 PUFFS BY MOUTH EVERY DAY 12 g 3 07/28/2024 Active ProAir HFA 108 (90 Base) MCG/ACT Inhalation Aerosol SolutionIndications :Moderate persistent asthma with exacerbation Inhale 2 Puffs by mouth every 4 hours as needed for Wheezing. 8.5 g 2 07/29/2024 Active Fluticasone Propionate 50 MCG/ACT Nasal Suspension (Flonase)Indication s:Acute cough Administer 1 [place] into each nostril 2 times a day. [...] rinse after steroid. Test performed by Sameer HYDROLOGIC ENGINEER CPFT Pleural plaque due to asbestos exposure Restrictive lung disease Overview: In Check dial performed to assess inhaler technique: 12/15/19 Name of inhalers Albuterol Pass: Yes at 60 L/min and Advair Pass: Yes at 60 L/min. Encouraged to to take deep breath, use aero chamber, and rinse after steroid. 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 Overview: [place] C0-M6 documented as of this encounter (statuses [...] mRNA, LNP-s, No Pre serve, 2-Dose Series (Cynergen) 12/01/2021,01/16/2021,12/26/2020 COVID-19, LNP-s, No Preserve , Ozzy-sucrose, Ages 12+ (Cynergen) 12/01/2021 COVID-19, MRNA-LNP, 23-24, P F, 30 MCG/0.3 mL, 12 YRS AND ABOVE, IM (VoIPshield SystemsDRESSBOOM) 09/18/2023 COVID-19, MRNA-LNP, 24-25, P R, 30MCG/0.3ML, IM, 12YRS AND ABOVE ([employer] Trees) 08/20/2024 Covid-19, Mrna, Lnp-s, Pf, B ivalent, 30 Mcg, IM, 12 yrs and above (Cynergen) 10/09/2022 Pneumococcal Conjugate Vacc, 13 Valent (Prevnar) [...] Sign Reading Time Taken Comments Blood Pressure 93/50 08/27/2024 2:48 PM EDT Pulse 63 08/27/2024 2:48 PM EDT Temperature - - Respiratory Rate 16 08/27/2024 2:48 PM EDT Oxygen Saturation 91% 08/27/2024 2:48 PM EDT Inhaled Oxygen Concentration - - Weight - - Height - - Body Mass Index - - documented in this encounter Nursing Notes * Wendy Rowland RN - 08/27/2024 4:48 PM EDT Patient tolerated treatment well without any acute issues or problems. Patient left facility in stable condition and denied any further needs. * Venecia Infante LPN - 08/27/2024 2:49 PM EDT Patient arrived Chair 8 for IV therapy Venofer. Vital signs are stable. Port Catheter accessed by Patricia Cao RN; line flushed with ease; positive blood return; IV fluids connected and infusing. Callbell within reach. Patient instructed on use of heat and massage functions where applicable. Patient shown how to operate the heat function of the chair and to alert nursing staff if the chair feels too warm. Patient instructed on the risk of potential santana while using the heat function. documented in this encounter Plan of Treatment Upcoming Encounters Date Type Department Care Team (Latest Contact Info) Description 4 10:20 AM EDT Laboratory Laboratory [address] [place] [phone] [address] [place] [address] 4 6:30 AM EDT Anticoagulation Centralized Clinical Pharmacy Services, Angela Giles [address] [place] [address] [place] [address] [facility], [address] [place] [address] 4 1:45 PM EDT Hem/Onc Treatment Hematology/Onc ology Treatment, [address] [phone] 4 2:45 PM EDT Hem/Onc Treatment Hematology/Onc ology Treatment, [address] [phone] Marylou, Chair 2 Hem [facility] [address] [place] [address] [place] [address] 4 2:00 PM EDT Office Visit Cardiology, [facility] [address] [place] [address] Chas Wilkinson PA-C [address] [place] [address] 4 2:45 PM EST Hem/Onc Treatment Hematology/Onc ology Treatment, [address] [phone] Marylou, Chair 2 Hem Onc Scenery [address] [facility] [place] [address] 4 2:45 PM EST Hem/Onc Treatment Hematology/Onc ology Treatment, [place] 200 [facility], [place] [phone] Marylou, Chair 2 Hem Onc [address] [place] [address] 4 2:45 PM EST Hem/Onc Treatment Hematology/Onc ology Treatment, [address] [phone] 4 9:30 AM EST Hospital Encounter ENDO [facility], Endoscopy Suite, HFAM 1, [address] [place] [address] Domingo Garcia DO [address] [place] [address] 4 9:30 AM EST - 4 10:45 AM EST Surgery ENDO [facility], Endoscopy Suite, HFAM 1, [address] [place] [address] Domingo Garcia DO [address] [place] [address] ESOPHAGOGASTRODUODENOSCOPY (EGD), FLEXIBLE, TRANSORAL, DIAGNOSTIC 4 2:45 PM EST Hem/Onc Treatment Hematology/Onc ology Treatment, [address] [phone] 5 11:15 AM EST Office Visit Hematology/Onc ology [facility] [place] [address] [facility] [place] [address] Ramon Cadet MD [address] [place] [address] [place] [address] 5 11:20 AM EST Office Visit [address] [place] [phone] Bell Mcqueen MD [address] [place] [address] [place] [address] Scheduled Procedures Name Priority Associated Diagnoses Date/Ti me ESOPHAGOGASTRODUODENOSCOPY ( EGD), FLEXIBLE, TRANSORAL, DIAGNOSTIC Recall Stark's esophagus with dysplasia 11/05/2024 9:30 AM EST COLONOSCOPY FLEXIBLE PROXIMA L DIAGNOSTIC Recall Stark's esophagus with dysplasia 11/05/2024 9:30 AM EST Health Maintenance Due Date Last Done Comments Adult Wellness Visit 2003 Depression Screening 07/12/2021 07/12/2020 CKD PHOS USE SMARTSET 20704 08/21/2022 100 02/2021, 07/12/2020, 03/13/2019, Additional history exists *BISPHONATE OR OTHER ACCEPTABLE MEDICATION NEEDED FOR OSTEOPOROSIS (REFER TO SMARTSET #1146) 10/14/2023 Albumin/Creatinine Ratio 04/22/2024 023, 05/24/2022, 03/26/2022, Additional history exists Stark's Esophagus Surveilance 02/26/2025 02/26/2022, 02/26/2022, 07/04/2021, Additional history exists DXA Scan 07/05/2025 07/05/2023, 10/19, 11/04/2018, Additional history exists TSH 08/19/2025 08/19/2024, 07/19, 01/21/2024, Additional history exists CKD HGB USE SMARTSET 98098 08/25/202508/25, 08/25/2024, 08/19/2024, Additional history exists DTap/Tdap Vaccines (2 - Td or Tdap) 08/19/2027 08/19/2017, 08/20/2008 Pneumococcal Vaccine: 65+ Years Completed 06/23/2015, 05/14/2013, 04/18/2004 Zoster Vaccines Completed 12/02/2020, 08/15/2020 VITAMIN D LEVEL ONCE IN A LIFETIME-USE SMARTSET# [id number] Completed 04/22/2023, 08/28/2021, 07/14/2015 COVID-19 Vaccine Completed [...] this encounter Medical Devices Implanted Type Area Scrum Project Manager Device Identifier Shelf Expiration Date Model / Serial / Lot Power Port 8fr Sngl Lumen Plas - [id number] Implanted:Qty: 1 on 02/22/2022 at [facility] CR BARD : PERIPHERAL VASCULAR [id number] 02/15/2023 [id number] / / [id number] documented as of this encounter Visit Diagnoses Diagnosis Iron deficiency anemia, unspecified iron deficiency anemia type- Primary Stark's esophagus with dysplasia Stark's esophagus documented in this encounter Administered Medications Active Administered Medications - up to 3 most recent administrations Medication Order MAR Action Action Date Dose Rate Site diphenhydrAMINE (Benadryl) inj 50 mg 50 mg, IV Push, ONCE PRN Other, Hypersensitivity Reaction, Starting on Marilin 08/27/24 at 1448, Until Sat08/28/24 at 1447, For 24 hours EPINEPHrine 1 MG/ML inj 0.3 mg 0.3 mg, Intramuscular, ONCE PRN Other, Hypersensitivity Reaction or Anaphylaxis, Starting on Marilin 08/27/24 at 1448, Until Sat08/28/24 at 1447, For 24 hours hEParin 100 UNIT/ML Lock Flush inj 500 Units 500 Units (5 mL), IV Lock, PRN Other, IV Flush, Starting on Marilin 08/27/24 at 1448, Until Sat08/28/24 at 1447, For 24 hours, Do not flush if lock, PICC, or central line not in place; IV infusing or unable to flush. Given 08/27/2024 4:44 PM EDT 500 Units Hydrocortisone Sod Suc (PF) (Solu-Cortef) inj 100 mg 100 mg, IV Push, ONCE PRN Other, Hypersensitivity Reaction, Starting on Sat08/27/24 at 1448, Until Sat08/28/24 at 1447, For 24 hours NSS infusion 500 mL, Intravenous, at 50 mL/hr, CONTINUOUS, Starting on Marilin 08/27/24 at 1600, Until Sat08/28/24 at 0159 Start Infusion 08/27/2024 2:56 PM EDT 500 mL 50 mL/hr oxygen GAS Inhalation, OXYGEN, First dose on Marilin 08/27/24 at 1600, Until Discontinued, Device/Managed by: Low [...] PRN Other, IV Flush, Starting on Marilin 08/27/24 at 1448, Until Sat08/28/24 at 1447, For 24 hours, Do not flush if lock, PICC, or central line not in place; IV infusing or unable to flush. Given 08/27/2024 4:44 PM EDT 10 mL Inactive Administered Medications - up to 3 most recent administrations Medication Order MAR Action Action Date Dose Rate Site Iron Sucrose (Venofer) 300 mg in NSS 250 mL ivpb 300 mg, IV Piggyback, ONCE, 1 dose, On Marilin 08/27/24 at 1630, Administer over 90 Minutes Start Infusion 08/27/2024 2:58 PM EDT 300 mg 180 mL/hr documented in this encounter Advance Directives * Full Code (Latest Code Status on File) Date Activated Date Inactivated Comments 09/03/2007 7:29 AM 09/03/2007 4:02 PM Care Teams Handbag Parts Cutter Relationship Specialty Start Date End Date Bell Mcqueen MD [address] [place] [address] [place] [phone] PCP - General Family Medicine 06/24/24 documented as of this encounter
--- OUTSIDE RECORDS SUMMARY | 2024-09-02 11:45 | External Medical Summary | Summary of Care ---
Author Name Unknown Organization [facility] Address [address] [place] [address] Phone [phone] Care Team Providers Care Last Ironer Name Role Phone Bell Mcqueen MD Primary [...] stage 3b chronic kidney disease (HCC) Procedures UT INJ RETACRIT NON-ESRD USE UT THERAPEUTIC PROPHYLACTIC/DX INJECTION SUBQ/IM UT EPOETIN IVAN, NON-ESRD Ludwig Louis MD 200 [facility] [place] [address] Anc Hem/Onc oDny Hickman DEPT CLOSED - 10/01/23 [address] [place] [phone] Referral ID Status Reason Start Date Expiration Date V isits Requested Visits Authorized [id number] Authorized 07/23/2024 10/15/[phone] Encounter Details Date Type Department Care Team (Latest Contact Info) Description 08/05/2024 2:30 PM EDT Hem/Onc Treatment Hematology/Oncology Treatment, [place] [address] [place] [phone] Marylou, Chair 1 Hem Onc Scenery [address] [place] [address] Carcinoma of bladder (HCC)*; Iron deficiency anemia, [...] as of this encounter (statuses as of 08/30/2024) Medications Medication Sig Dispensed Refills Start Date [...] albuterol 120 mL 5 3 Active Ipratropium [place] 0.02 % Inhalation Solution (Atrovent)Indicat ions:Moderate persistent [...] EVERY EVENING. OR TAKE INSTRUCTED BY THE [facility] 90 Tablet 3 4 Active Tamsulosin HCl 0.4 MG Oral Capsule (Flomax)Indicatio ns:BPH without obstruction/lower urinary tract symptoms Take 1 Capsule by mouth in the morning. 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 8.5 g 2 4 Active Fluticasone Propionate 50 MCG/ACT Nasal Suspension (Flonase)Indicati ons:Acute cough Administer 1 [place] into each nostril 2 times a day. 16 mL 1 4 Active guaiFENesin ER 600 MG Oral Tablet Extended Release 12 Hour (Humibid LA)Indications:Ac tunica-biloxi cough Take 1 Tablet by mouth in the morning and 1 Tablet before bedtime. 40 Tablet 3 08/12/20 24 Discontinued(Med ication List Clean Up) Levothyroxine Sodium 125 MCG Oral Tablet (Levoxyl)Indicati [...] as of this encounter (statuses as of 08/30/2024) Active Problems Problem Noted Date Diagnosed Date [...] rinse after steroid. Test performed by Sameer HEMMING AND TACKING MACHINE OPERATOR CPFT Pleural plaque due to asbestos exposure Restrictive lung disease Overview: In Check dial performed to assess inhaler technique: 12/15/19 Name of inhalers Albuterol Pass: Yes at 60 L/min and Advair Pass: Yes at 60 L/min. Encouraged to to take deep breath, use aero chamber, and rinse after steroid. 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 Overview: [place] C0-M6 documented as of this encounter (statuses as of 08/30/2024) Resolved Problems Problem Noted Date Diagnosed Date [...] Malignant neoplasm of prostate 09/23/2008 03/27/2018 Overview: [place] grade 3 Atrial flutter 09/02/2007 10/16/2007 Herpes [...] as of this encounter (statuses as of 08/30/2024) Immunizations Name Administration Dates Next Due COVID-19 mRNA, LNP-s, No Pre serve, 2-Dose Series (Lela) 12/01/2021,01/16/2021,12/26/2020 COVID-19, LNP-s, No Preserve , Ozzy-sucrose, Ages 12+ (Lela) 12/01/2021 COVID-19, MRNA-LNP, 23-24, P F, 30 MCG/0.3 mL, 12 YRS AND ABOVE, IM (Group 47-Comirnaty) 09/18/2023 Covid-19, Mrna, Lnp-s, Pf, B ivalent, 30 Mcg, IM, 12 yrs and above (Lela) 10/09/2022 Pneumococcal Conjugate Vacc, 13 Valent (Prevnar) [...] Description 4 10:20 AM EDT Laboratory Laboratory [address] [place] [phone] [place] [address] 4 6:30 AM EDT Anticoagulation Centralized Clinical Pharmacy Services, [facility] Chan [address] [place] [address] [place] [address] [facility], [address] [place] [address] 4 1:45 PM EDT Hem/Onc Treatment Hematology/Onc ology Treatment, [address] [phone] 4 2:45 PM EDT Hem/Onc Treatment Hematology/Onc ology Treatment, [address] [phone] Marylou, Chair 2 Hem Onc [address] [address] 4 2:00 PM EDT Office Visit Cardiology, [facility] [address] [place] [address] Chas Wilkinson PA-C [address] [place] [address] 4 2:45 PM EST Hem/Onc Treatment Hematology/Onc ology Treatment, [address] [phone] Marylou, Chair 2 Hem Onc Scenery [address] [place], [place] [address] 4 2:45 PM EST Hem/Onc Treatment Hematology/Onc ology Treatment, [place] 200 [facility], [place] [phone] Marylou, Chair 2 Hem Onc Scenery [address] [place], [place] [address] 4 2:45 PM EST Hem/Onc Treatment Hematology/Onc ology Treatment, [address], [place] [phone] 4 9:30 AM EST Hospital Encounter [facility]O [facility], Endoscopy Suite, HFAM 1, [address] [place] [address] Domingo Garcia DO [address] [place] [address] 4 9:30 AM EST - 4 10:45 AM EST Surgery ENDO [facility], Endoscopy Suite, HFAM 1, [address] [place] [address] Domingo Garcia DO [address] [place] [facility] [place] [address] ESOPHAGOGASTRODUODENOSCOPY (EGD), FLEXIBLE, TRANSORAL, DIAGNOSTIC 4 2:45 PM EST Hem/Onc Treatment Hematology/Onc ology Treatment, [place] 200 [facility], [place] [phone] 5 11:15 AM EST Office Visit Hematology/Onc ology [facility] [place] [address] [place] [phone] Ramon Cadet MD [address] [place] [address] 5 11:20 AM EST Office Visit [address] [place] [phone] Bell Mcqueen MD [address] [place] [address] [place] [address] Scheduled Procedures Name Priority Associated Diagnoses Date/Ti me ESOPHAGOGASTRODUODENOSCOPY ( EGD), FLEXIBLE, TRANSORAL, DIAGNOSTIC Recall Stark's esophagus with dysplasia 11/05/2024 9:30 AM EST COLONOSCOPY FLEXIBLE PROXIMA L DIAGNOSTIC Recall Stark's esophagus with dysplasia 11/05/2024 9:30 AM EST Health Maintenance Due Date Last Done Comments Adult Wellness Visit 2003 Depression Screening 07/12/2021 07/12/2020 CKD PHOS USE SMARTSET 71551 08/21/202202/2021, 07/12/2020, 03/13/2019, Additional history exists *BISPHONATE OR OTHER ACCEPTABLE MEDICATION NEEDED FOR OSTEOPOROSIS (REFER TO SMARTSET #1146) 10/14/2023 Albumin/Creatinine Ratio 04/22/2024 023, 05/24/2022, 03/26/2022, Additional history exists Stark's Esophagus Surveilance 02/26/2025 02/26/2022, 02/26/2022, 07/04/2021, Additional history exists DXA Scan 07/05/2025 07/05/2023, 10/19, 11/04/2018, Additional history exists TSH 08/19/2025 08/19/2024, 07/19, 01/21/2024, Additional history exists CKD HGB USE SMARTSET 45048 08/25/202508/25, 08/25/2024, 08/19/2024, Additional history exists DTap/Tdap Vaccines (2 - Td or Tdap) 08/19/2027 08/19/2017, 08/20/2008 Pneumococcal Vaccine: 65+ Years Completed 06/23/2015, 05/14/2013, 04/18/2004 Zoster Vaccines Completed 12/02/2020, 08/15/2020 VITAMIN D LEVEL ONCE IN A LIFETIME-USE SMARTSET# [id number] Completed 04/22/2023, 08/28/2021, 07/14/2015 COVID-19 Vaccine Completed [...] this encounter Medical Devices Implanted Type Area Buff Wheel Fabricator Device Identifier Shelf Expiration Date Model / Serial / Lot Power Port 8fr Sngl Lumen Plas - [id number] Implanted:Qty: 1 on 02/22/2022 at [facility] : PERIPHERAL VASCULAR [id number] 02/15/2023 [id number] / / [id number] documented as of this encounter Visit Diagnoses [...] Date Dose Rate Site Epoetin Ivan-epbx (Retacrit) 70072 UNIT/ML inj 60,000 Units 60,000 Units, Subcutaneous, ONCE, On Sat08/05/24 at 1400, For 1 dose Given 08/05/2024 1:32 PM EDT 60,000 Units Arm Left Upper documented in this encounter Advance Directives * Full Code (Latest Code Status on File) Date Activated Date Inactivated Comments 09/03/2007 7:29 AM 09/03/2007 4:02 PM Care Teams Last Ironer Relationship Specialty Start Date End Date Bell Mcqueen MD [address] [place] [address] [place] [address] PCP - General Family Medicine 06/24/24 documented as of this encounter
--- OUTSIDE RECORDS SUMMARY | 2024-09-02 11:45 | External Medical Summary | Summary of Care ---
Author Name Unknown Organization [facility] Address [address] [place] [address] Phone [phone] Care Team Providers Care Embedded Case Manager Name Role Phone Blel Mcqueen MD Primary Care Provide r Encounter Details Date Type Department Care Team (Late st Contact Info) Description 08/27/2024 Orders Only Hematology/Oncology [facility] [address] [facility] [place] [phone] Ramon Cadet MD 200 [facility] [place] [address] Allergies Active Allergy Reactions Criticality Noted Date [...] albuterol 120 mL 5 11/21/2022 Active Ipratropium [place] 0.02 % Inhalation Solution (Atrovent)Indicatio ns:Moderate persistent [...] BY [facility] 90 Tablet 3 05/07/2024 Active [...] Respimat 2.5 MCG/ACT Inhalation Aerosol Solution (Tiotropium [place] Monohydrate)Indicat ions:Moderate persistent asthma without complication INHALE 2 PUFFS BY MOUTH EVERY DAY 12 g 3 07/28/2024 Active ProAir HFA 108 (90 Base) MCG/ACT Inhalation Aerosol SolutionIndications :Moderate persistent asthma with exacerbation Inhale 2 Puffs by mouth every 4 hours as needed for Wheezing. 8.5 g 2 07/29/2024 Active Fluticasone Propionate 50 MCG/ACT Nasal Suspension (Flonase)Indication s:Acute cough Administer 1 [place] into each nostril 2 times a day. [...] after steroid. Test performed by Sameer DIRECTOR DRUG SAFETY CPFT Pleural plaque due to asbestos exposure Restrictive lung disease Overview: In Check dial performed to assess inhaler technique: 12/15/19 Name of inhalers Albuterol Pass: Yes at 60 L/min and Advair Pass: Yes at 60 L/min. Encouraged to to take deep breath, use aero chamber, and rinse after steroid. 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 Overview: [place] C0-M6 documented as of this encounter (statuses [...] 08/22/2005 04/05/2016 Anal fissure 06/04/2005 10/16/2007 intermediate designer current use of ant icoagulant therapy 05/30/2005 [...] mRNA, LNP-s, No Pre serve, 2-Dose Series (Audingo) 12/01/2021,01/16/2021,12/26/2020 COVID-19, LNP-s, No Preserve , Ozzy-sucrose, Ages 12+ (Pfizer) 12/01/2021 COVID-19, MRNA-LNP, 23-24, P F, 30 MCG/0.3 mL, 12 YRS AND ABOVE, IM ([facility]) 09/18/2023 COVID-19, MRNA-LNP, 24-25, P R, 30MCG/0.3ML, IM, 12YRS AND ABOVE ([facility]) 08/20/2024 Covid-19, Mrna, Lnp-s, Pf, B ivalent, 30 Mcg, IM, 12 yrs and above (Audingo) 10/09/2022 Pneumococcal Conjugate Vacc, 13 Valent (Prevnar) [...] PM EDT Hem/Onc Treatment Hematology/Onc ology Treatment, [address] [phone] Marylou, Chair 2 Hem On[address] [place] [address] 4 10:20 AM EDT Laboratory Laboratory [address] [place] [phone] [address] [place] [address] 4 6:30 AM EDT Anticoagulation Centralized Clinical Pharmacy Services, Angela Giles [address] [place] [address] [place] [address] [place] [address] 4 1:45 PM EDT Hem/Onc Treatment Hematology/Onc ology Treatment, [address] [place] [phone] 4 2:00 PM EDT Office Visit Cardiology, [facility] [address] [facility] [place] [address] Chas Wilkinson PA-C [address] [place] [address] 4 1:00 PM EST Nurse Only Hematology/Onc ology Treatment, [place] [facility] [phone] Marylou, Chair 5 Hem Onc [facility] 200 [facility] [place] [address] 4 9:30 AM EST Hospital Encounter [facility], Endoscopy Suite, HFAM 1, [address] [place] [address] Domingo Garcia DO [address] [place] [address] 4 9:30 AM EST - 4 10:45 AM EST Surgery [facility], Endoscopy Suite, HFAM 1, [address] [place] [address] Domingo Garcia DO [address] [place] [address] ESOPHAGOGASTRODUODENOSCOPY (EGD), FLEXIBLE, TRANSORAL, DIAGNOSTIC 5 11:15 AM EST Office Visit Hematology/Onc ology [facility] [place] [address] [facility] [place] [phone] Ramon Cadet MD 200 [facility] [place] [address] 5 11:20 AM EST Office Visit [address] [place] [phone] Bell Mcqueen MD [address] [place] [address] [place] [address] Scheduled Procedures Name Priority Associated Diagnoses Date/Ti ia ESOPHAGOGASTRODUODENOSCOPY ( EGD), FLEXIBLE, TRANSORAL, DIAGNOSTIC Recall Stark's esophagus with dysplasia 11/05/2024 9:30 AM EST COLONOSCOPY FLEXIBLE PROXIMA L DIAGNOSTIC Recall Stark's esophagus with dysplasia 11/05/2024 9:30 AM EST Health Maintenance Due Date Last Done Comments Adult Wellness Visit 2003 Depression Screening 07/12/2021 07/12/2020 CKD PHOS USE SMARTSET 65755 08/21/2022 10/0 02/2021, 07/12/2020, 03/13/2019, Additional history exists *BISPHONATE OR OTHER ACCEPTABLE MEDICATION NEEDED FOR OSTEOPOROSIS (REFER TO SMARTSET #1146) 10/14/2023 Albumin/Creatinine Ratio 04/22/2024 023, 05/24/2022, 03/26/2022, Additional history exists Stark's Esophagus Surveilance 02/26/2025 02/26/2022, 02/26/2022, 07/04/2021, Additional history exists DXA Scan 07/05/2025 07/05/2023, 10/19, 11/04/2018, Additional history exists TSH 08/19/2025 08/19/2024, 07/19, 01/21/2024, Additional history exists CKD HGB USE SMARTSET 32583 08/25/202508/25, 08/25/2024, 08/19/2024, Additional history exists DTap/Tdap Vaccines (2 - Td or Tdap) 08/19/2027 08/19/2017, 08/20/2008 Pneumococcal Vaccine: 65+ Years Completed 06/23/2015, 05/14/2013, 04/18/2004 Zoster Vaccines Completed 12/02/2020, 08/15/2020 VITAMIN D LEVEL ONCE IN A LIFETIME-USE SMARTSET# [id number] Completed 04/22/2023, 08/28/2021, 07/14/2015 COVID-19 Vaccine Completed [...] this encounter Medical Devices Implanted Type Area Floral Merchandiser Device Identifier Shelf Expiration Date Model / Serial / Lot Power Port 8fr Sngl Lumen Plas - [id number] Implanted:Qty: 1 on 02/22/2022 at [facility] CR BARD : PERIPHERAL VASCULAR [id number] 02/15/2023 [id number] / / [id number] documented as of this encounter Advance Directives * Full Code (Latest Code Status on File) Date Activated Date Inactivated Comments 09/03/2007 7:29 AM 09/03/2007 4:02 PM Care Teams Embedded Case Manager Relationship Specialty Start Date End Date Bell Mcqueen MD [address] [place] [address] [place] [address] PCP - General Family Medicine 06/24/24 documented as of this encounter
--- OUTSIDE RECORDS SUMMARY | 2024-09-02 11:46 | External Medical Summary | Summary of Care ---
Author Name Unknown Organization [facility] Address [address] [place] [address] Phone [phone] Care Team Providers Care Physician Office Specialist Name Role Phone Bell Mcqueen MD Primary Care Provide r Reason for Visit * Reason Comments Medication Administration Epoetin Inject ion * Episode Based Medications (Routine) - Authorized Specialty Diagnoses / Procedures Referred By Contjocelyne t Referred To Contact Diagnoses Carcinoma of bladder (HCC) Iron deficiency anemia, unspecified iron deficiency anemia type Chronic kidney disease, stage 3b (HCC) Anemia due to stage 3b chronic kidney disease (HCC) Procedures OH INJ RETACRIT NON-ESRD USE OH THERAPEUTIC PROPHYLACTIC/DX INJECTION SUBQ/IM OH EPOETIN IVAN, NON-ESRD Ludwig Louis MD [address] [place] [address] Anc Hem/Onc Dony Hickman DEPT CLOSED - 10/01/[address] [place] [phone] Referral ID Status Reason Start Date Expiration Date V isits Requested Visits Authorized [id number] Authorized 07/23/2024 10/15/[phone] Encounter Details Date Type Department Care Team (Late st Contact Info) Description 08/19/2024 10:30 AM EDT Immunization/I njection Hematology/Oncology Treatment, [place] [address] [place] [address] Carcinoma of bladder (HCC)*; Iron deficiency [...] as of this encounter (statuses as of 08/19/2024) Medications Medication Sig Dispensed Refills Start Date [...] albuterol 120 mL 5 11/21/2022 Active Ipratropium [place] 0.02 % Inhalation Solution (Atrovent)Indicatio ns:Moderate persistent [...] EVERY EVENING. OR TAKE INSTRUCTED BY [facility] 90 Tablet 3 [...] Respimat 2.5 MCG/ACT Inhalation Aerosol Solution (Tiotropium [place] Monohydrate)Indicat ions:Moderate persistent asthma without complication INHALE 2 PUFFS BY MOUTH EVERY DAY 12 g 3 07/28/2024 Active ProAir HFA 108 (90 Base) MCG/ACT Inhalation Aerosol SolutionIndications :Moderate persistent asthma with exacerbation Inhale 2 Puffs by mouth every 4 hours as needed for Wheezing. 8.5 g 2 07/29/2024 Active Fluticasone Propionate 50 MCG/ACT Nasal Suspension (Flonase)Indication s:Acute cough Administer 1 [place] into each nostril 2 times a day. [...] at bedtime. 30 Tablet 5 08/14/2024 Active documented as of this encounter (statuses as of 08/19/2024) Active Problems Problem Noted Date Diagnosed Date [...] after steroid. Test performed by Sameer SERVICE ADVISOR CPFT Pleural plaque due to asbestos exposure Restrictive lung disease Overview: In Check dial performed to assess inhaler technique: 12/15/19 Name of inhalers Albuterol Pass: Yes at 60 L/min and Advair Pass: Yes at 60 L/min. Encouraged to to take deep breath, use aero chamber, and rinse after steroid. 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 Overview: [place] C0-M6 documented as of this encounter (statuses as of 08/19/2024) Resolved Problems Problem Noted Date Diagnosed Date [...] Malignant neoplasm of prostate 09/23/2008 03/27/2018 Overview: [place] grade 3 Atrial flutter 09/02/2007 10/16/2007 Herpes [...] as of this encounter (statuses as of 08/19/2024) Immunizations Name Administration Dates Next Due COVID-19 mRNA, LNP-s, No Pre serve, 2-Dose Series (JustFamily) 12/01/2021,01/16/2021,12/26/2020 COVID-19, LNP-s, No Preserve , Ozzy-sucrose, Ages 12+ (JustFamily) 12/01/2021 COVID-19, MRNA-LNP, 23-24, P F, 30 MCG/0.3 mL, 12 YRS AND ABOVE, IM (SeekPanda-Comirnat) 09/18/2023 Covid-19, Mrna, Lnp-s, Pf, B ivalent, 30 Mcg, IM, 12 yrs and above (JustFamily) 10/09/2022 Pneumococcal Conjugate Vacc, 13 Valent (Prevnar) [...] Reading Time Taken Comments Blood Pressure 95/55 08/19/2024 10:35 AM EDT Pulse 88 08/19/2024 10:35 AM EDT Temperature - - Respiratory Rate - - Oxygen Saturation - - Inhaled Oxygen Concentration - - Weight - - Height - - Body Mass Index - - documented in this encounter Nursing Notes * Bren Gavin, MARYELLEN - 08/19/2024 10:37 AM EDT Patient to chair 6 ambulatory Patient voices no complaints or concerns. Patient states no need for port flush today as he was just released from hospital last week where it was accessed and flushed. BP sent to pharm as ordered. Hgb 8 today Safety and Risk for Injury Patient will remain free from injury. Ensure appropriate safety devices are available. Provide and maintain safe environment. Patient instructed on use of heat and massage functions where applicable. Patient shown how to operate the heat function of the chair and to alert nursing staff if the chair feels too warm. Patient instructed on the risk of potential santana while using the heat function. Goals: patient will remain free of injury Possible barriers to meeting goals: Stability of the patient: Moderately stable - low risk of patient condition declining or worsening Summary regarding today's goals: Met: patient remained free of injury Patient discharged in good condition, tolerated well documented in this encounter Plan of Treatment Upcoming Encounters Date Type Department Care Team (Latest Contact Info) Description 4 9:40 AM EDT Office Visit Family Medicine [address] [place] [phone] Juancho Romero MD [address] [place] [address] [place] [address] 4 10:30 AM EDT Laboratory Laboratory [address] [place] [address] [facility] [address] [place] [address] 4 11:30 AM EDT Cardiac Studies Cardiology [address] [place] [address] [place], Pacer [facility] [address] [place] [address] 4 12:00 PM EDT Office Visit Cardiology [address] [place] [address] Chas Wilkinson PA-C [address] [place] [address] 4 1:15 PM EDT Office Visit Hematology/Onc ology [facility] [address] [place] [phone] Ramon Cadet MD [address] [place] [address] 4 1:45 PM EDT Hem/Onc Treatment Hematology/Onc ology Treatment, [place] 200 [facility] [place] [phone] 4 6:30 AM EDT Anticoagulation Centralized Clinical Pharmacy Services, Angela Giles [address] [place] [address] [place] [address] [facility], [address] [place] [address] 4 1:00 PM EST Nurse Only Hematology/Onc ology Treatment, [place] 200 [facility] [place] [phone] Marylou, Chair 5 Hem Onc [facility] [address] [facility] [place] [address] 4 9:30 AM EST Hospital Encounter [facility] Endoscopy Suite, HFAM 1, [address] [place] [address] Domingo Garcia DO [address] [place] [facility] [place] [address] 4 9:30 AM EST - 4 10:45 AM EST Surgery [facility], Endoscopy Suite, HFAM 1, [address] [facility] [place] [address] Domingo Garcia DO [address] [facility] [place] [id number] ESOPHAGOGASTRODUODENOSCOPY (EGD), FLEXIBLE, TRANSORAL, DIAGNOSTIC 5 11:20 AM EST Office Visit [address] [place] [phone] Bell Mcqueen MD [address] [place] [address] [place] [address] Scheduled Procedures Name Priority Associated Diagnoses Date/Ti me ESOPHAGOGASTRODUODENOSCOPY ( EGD), FLEXIBLE, TRANSORAL, DIAGNOSTIC Recall Stark's esophagus with dysplasia 11/05/2024 9:30 AM EST COLONOSCOPY FLEXIBLE PROXIMA L DIAGNOSTIC Recall Stark's esophagus with dysplasia 11/05/2024 9:30 AM EST Health Maintenance Due Date Last Done Comments Adult Wellness Visit 2003 Depression Screening 07/12/2021 07/12/2020 CKD PHOS USE SMARTSET 55383 08/21/2022 1002/2021, 07/12/2020, 03/13/2019, Additional history exists *BISPHONATE OR OTHER ACCEPTABLE MEDICATION NEEDED FOR OSTEOPOROSIS (REFER TO SMARTSET #1146) 10/14/2023 Albumin/Creatinine Ratio 04/22/2024 023, 05/24/2022, 03/26/2022, Additional history exists COVID-19 Vaccine ( season) 2024 09/18/2023, 09/18/2023, 10/09/2022, Additional history exists Influenza Vaccine (FLU shot) (#1) 2024 07/31/2023, 10/09/2022, 08/17/2021, Additional history exists Stark's Esophagus Surveilance 02/26/2025 02/26/2022, 02/26/2022, 07/04/2021, Additional history exists DXA Scan 07/05/2025 07/05/2023, 1207/2020, 11/04/2018, Additional history exists TSH 07/28/2025 07/28/2024, 03/0 03/2024, 10/08/2023, Additional history exists CKD HGB USE SMARTSET 28395 08/19/202508/19, 08/19/2024, 08/04/2024, Additional history exists DTap/Tdap Vaccines (2 - Td or Tdap) 08/19/2027 08/19/2017, 08/20/2008 Pneumococcal Vaccine: 65+ Years Completed 06/23/2015, 05/14/2013, 04/18/2004 Zoster Vaccines Completed 12/02/2020, 08/15/2020 VITAMIN D LEVEL ONCE IN A LIFETIME-USE SMARTSET# 25530 Completed 04/22/2023, 08/28/2021, 07/14/2015 HPV (Gardasil) Vaccine Aged Out No lo nger eligible based on patient's age to complete this topic Hepatitis B Vaccine Aged Out No longe r eligible based on patient's age to complete this topic MENINGOCOCCAL (MENACTRA/MENVEO) Aged Out No longer eligible based on patient's age to complete this topic documented as of this encounter Medical Devices Implanted Type Area Duck Farmer Device Identifier Shelf Expiration Date Model / Serial / Lot Power Port 8fr Sngl Lumen Plas - [id number] Implanted:Qty: 1 on 02/22/2022 at [facility] : PERIPHERAL VASCULAR [id number] 02/15/2023 [id number] / / [id number] documented as of this encounter Visit Diagnoses [...] Date Dose Rate Site Epoetin Ivan-epbx (Retacrit) 47393 UNIT/ML inj 60,000 Units 60,000 Units, Subcutaneous, ONCE, On Sat08/19/24 at 1115, For 1 dose Given 08/19/2024 10:51 AM EDT 60,000 Units Arm Left Upper documented in this encounter Advance Directives * Full Code (Latest Code Status on File) Date Activated Date Inactivated Comments 09/03/2007 7:29 AM 09/03/2007 4:02 PM Care Teams Physician Office Specialist Relationship Specialty Start Date End Date Bell Mcqueen MD [address] [place] [address] [place] [phone] PCP - General Family Medicine 06/24/24 documented as of this encounter
--- OUTSIDE RECORDS SUMMARY | 2024-09-02 11:46 | External Medical Summary | Summary of Care ---
Author Name Unknown Organization [facility] Address [address] [place] [address] Phone [phone] Care Team Providers Care Bowling Alley Mechanic Name Role Phone Bell Mcqueen MD Primary Care Provide r Reason for Visit * Reason Comments Outpatient Testing Encounter Details Date Type Department Care Team (Late st Contact Info) Description 08/25/2024 10:30 AM EDT Laboratory Laboratory [address] [place] [phone] [place] [address] Urothelial carcinoma of bladder (HCC) Allergies Active Allergy Reactions Criticality Noted Date Comments Penicillins Other (Please comment),Rash High Eyes swell Pollen 05/03/2022 Wound Dressing Adhesive Rash 05/02/2023 Patient reported Olanzapine Neuro complications (Please comment) 04/09/2024 documented as of this encounter (statuses as of 08/25/2024) Medications Medication Sig Dispensed Refills Start Date [...] albuterol 120 mL 5 11/21/2022 Active Ipratropium [place] 0.02 % Inhalation Solution (Atrovent)Indicatio ns:Moderate persistent [...] Respimat 2.5 MCG/ACT Inhalation Aerosol Solution (Tiotropium [place] Monohydrate)Indicat ions:Moderate persistent asthma without complication INHALE 2 PUFFS BY MOUTH EVERY DAY 12 g 3 07/28/2024 Active ProAir HFA 108 (90 Base) MCG/ACT Inhalation Aerosol SolutionIndications :Moderate persistent asthma with exacerbation Inhale 2 Puffs by mouth every 4 hours as needed for Wheezing. 8.5 g 2 07/29/2024 Active Fluticasone Propionate 50 MCG/ACT Nasal Suspension (Flonase)Indication s:Acute cough Administer 1 [place] into each nostril 2 times a day. [...] as of this encounter (statuses as of 08/25/2024) Active Problems Problem Noted Date Diagnosed Date [...] rinse after steroid. Test performed by Sameer RUG BACKING STENCILER CPFT Pleural plaque due to asbestos exposure Restrictive lung disease Overview: In Check dial performed to assess inhaler technique: 12/15/19 Name of inhalers Albuterol Pass: Yes at 60 L/min and Advair Pass: Yes at 60 L/min. Encouraged to to take deep breath, use aero chamber, and rinse after steroid. 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 current use of ant icoagulant therapy 05/30/2005 [...] as of this encounter (statuses as of 08/25/2024) Immunizations Name Administration Dates Next Due COVID-19 mRNA, LNP-s, No Pre serve, 2-Dose Series ([employer]) 12/01/2021,01/16/2021,12/26/2020 COVID-19, LNP-s, No Preserve , Ozzy-sucrose, Ages 12+ (Pfizer) 12/01/2021 COVID-19, MRNA-LNP, 23-24, P F, 30 MCG/0.3 mL, 12 YRS AND ABOVE, IM ([facility] 09/18/2023 COVID-19, MRNA-LNP, 24-25, P R, 30MCG/0.3ML, IM, 12YRS AND ABOVE ([facility]) 08/20/2024 Covid-19, Mrna, Lnp-s, Pf, B ivalent, 30 Mcg, IM, 12 yrs and above ([employer]) 10/09/2022 Pneumococcal Conjugate Vacc, 13 Valent (Prevnar) [...] Contact Info) Description 4 11:30 AM EDT Cardiac Studies Cardiology [address] [place] [address] Og Frazier [facility] [address] [place] [address] Arrived 4 12:00 PM EDT Office Visit Cardiology [address] [place] [address] Chas Wilkinson PA-C [address] [place] [address] Arrived 4 1:15 PM EDT Office Visit Hematology/Onc ology [facility] [place] [address] [place] [phone] Ramon Cadet MD [address] [place] [address] [address] 4 1:45 PM EDT Hem/Onc Treatment Hematology/Onc ology Treatment, [place] [address] [facility] [place] [address] 4 6:30 AM EDT Anticoagulation Centralized Clinical Pharmacy Services, Angela Giles [address] [place] [address] [place] [address] [facility], [address] [place] [address] 4 1:00 PM EST Nurse Only Hematology/Onc ology Treatment, [place] [address] [place] [phone] Marylou, Chair 5 Hem Onc [address] [place] [address] 4 9:30 AM EST Hospital Encounter [facility]O [facility], Endoscopy Suite, HFAM 1, [address] [place] [address] Domingo Garcia DO [address] [place] [facility] [place] [address] 4 9:30 AM EST - 4 10:45 AM EST Surgery ENDO [facility], Endoscopy Suite, HFAM 1, [address] [place] [address] Domingo Garcia DO [address] [place] [facility] [place] [address] ESOPHAGOGASTRODUODENOSCOPY (EGD), FLEXIBLE, TRANSORAL, DIAGNOSTIC 5 11:20 AM EST Office Visit [address] [place] [phone] Bell Mcqueen MD [address] [place] [address] [place] [address] Pending Results Name Type Priority Associated Diagnoses Date /Time CBC WITH WBC DIFFERENTIAL Lab STAT Urothelial carcinoma of bladder (HCC) 08/25/2024 11:10 AM EDT CBC Lab STAT Urothelial carcinoma of bladder (HCC) 08/25/2024 11:10 AM EDT DIFFERENTIAL, AUTOMATED Lab STAT Urothelial carcinoma of bladder (HCC) 08/25/2024 11:10 AM EDT Scheduled Procedures Name Priority Associated Diagnoses Date/Ti me ESOPHAGOGASTRODUODENOSCOPY ( EGD), FLEXIBLE, TRANSORAL, DIAGNOSTIC Recall Stark's esophagus with dysplasia 11/05/2024 9:30 AM EST COLONOSCOPY FLEXIBLE PROXIMA L DIAGNOSTIC Recall Stark's esophagus with dysplasia 11/05/2024 9:30 AM EST Health Maintenance Due Date Last Done Comments Adult Wellness Visit 2003 Depression Screening 07/12/2021 07/12/2020 CKD PHOS USE SMARTSET 72642 08/21/2022 1002/2021, 07/12/2020, 03/13/2019, Additional history exists *BISPHONATE OR OTHER ACCEPTABLE MEDICATION NEEDED FOR OSTEOPOROSIS (REFER TO SMARTSET #1146) 10/14/2023 Albumin/Creatinine Ratio 04/22/2024 023, 05/24/2022, 03/26/2022, Additional history exists Stark's Esophagus Surveilance 02/26/2025 02/26/2022, 02/26/2022, 07/04/2021, Additional history exists DXA Scan 07/05/2025 07/05/2023, 10/19, 11/04/2018, Additional history exists CKD HGB USE SMARTSET 33981 08/19/202508/19, 08/19/2024, 08/04/2024, Additional history exists TSH 08/19/2025 08/19/2024, 07/19, 01/21/2024, Additional history exists DTap/Tdap Vaccines (2 - Td or Tdap) 08/19/2027 08/19/2017, 08/20/2008 Pneumococcal Vaccine: 65+ Years Completed 06/23/2015, 05/14/2013, 04/18/2004 Zoster Vaccines Completed 12/02/2020, 08/15/2020 VITAMIN D LEVEL ONCE IN A LIFETIME-USE SMARTSET# 64053 Completed 04/22/2023, 08/28/2021, 07/14/2015 COVID-19 Vaccine Completed [...] this encounter Medical Devices Implanted Type Area Hothouse Worker Device Identifier Shelf Expiration Date Model / Serial / Lot Power Port 8fr Sngl Lumen Plas - [id number] Implanted:Qty: 1 on 02/22/2022 at [facility] CR BARD : PERIPHERAL VASCULAR [id number] 02/15/2023 [id number] / / [id number] documented as of this encounter Visit Diagnoses Diagnosis 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
--- OUTSIDE RECORDS SUMMARY | 2024-09-02 11:46 | External Medical Summary | Summary of Care ---
Author Name Unknown Organization [facility] Address [address] [place] [address] Phone [phone] Care Team Providers Care Criminal Research Specialist Name Role Phone Bell Mcqueen MD Primary Care Provide r Reason for Visit * Reason Comments Pacemaker Clinic Encounter Details Date Type Department Care Team (Latest Contact Info) Description 08/25/2024 11:30 AM EDT Cardiac Studies Cardiology [address] [place] [address] [facility] [address] [address] Paroxysmal SVT (supraventricular tachycardia) (HCC)*; Permanent atrial fibrillation (HCC); Cardiac pacemaker in situ; Chronic right-sided heart failure (HCC) Allergies Active Allergy Reactions Criticality Noted [...] albuterol 120 mL 5 11/21/2022 Active Ipratropium [place] 0.02 % Inhalation Solution (Atrovent)Indicatio ns:Moderate persistent [...] EVERY EVENING. OR TAKE INSTRUCTED BY [facility] 90 Tablet 3 05/07/2024 Active [...] Respimat 2.5 MCG/ACT Inhalation Aerosol Solution (Tiotropium [place] Monohydrate)Indicat ions:Moderate persistent asthma without complication INHALE 2 PUFFS BY MOUTH EVERY DAY 12 g 3 07/28/2024 Active ProAir HFA 108 (90 Base) MCG/ACT Inhalation Aerosol SolutionIndications :Moderate persistent asthma with exacerbation Inhale 2 Puffs by mouth every 4 hours as needed for Wheezing. 8.5 g 2 07/29/2024 Active Fluticasone Propionate 50 MCG/ACT Nasal Suspension (Flonase)Indication s:Acute cough Administer 1 [place] into each nostril 2 times a day. [...] rinse after steroid. Test performed by Sameer EXPLOSIVE MAN CPFT Pleural plaque due to asbestos exposure Restrictive lung disease Overview: In Check dial performed to assess inhaler technique: 12/15/19 Name of inhalers Albuterol Pass: Yes at 60 L/min and Advair Pass: Yes at 60 L/min. Encouraged to to take deep breath, use aero chamber, and rinse after steroid. Test performed by Sameer EXPLOSIVE MAN CPFT Hx of pulmonary embolus Stark's esophagus determined by endoscopy Overview: [place] C0-M6 documented as of this encounter (statuses [...] Malignant neoplasm of prostate 09/23/2008 03/27/2018 Overview: [place] grade 3 Atrial flutter 09/02/2007 10/16/2007 Herpes [...] mRNA, LNP-s, No Pre serve, 2-Dose Series (Mumart) 12/01/2021,01/16/2021,12/26/2020 COVID-19, LNP-s, No Preserve , Ozzy-sucrose, Ages 12+ (Pfizer) 12/01/2021 COVID-19, MRNA-LNP, 23-24, P F, 30 MCG/0.3 mL, 12 YRS AND ABOVE, IM ([facility]) 09/18/2023 COVID-19, MRNA-LNP, 24-25, P R, 30MCG/0.3ML, IM, 12YRS AND ABOVE (OnlineMarket) 08/20/2024 Covid-19, Mrna, Lnp-s, Pf, B ivalent, 30 Mcg, IM, 12 yrs and above (Mumart) 10/09/2022 Pneumococcal Conjugate Vacc, 13 Valent (Prevnar) [...] as of this encounter Progress Notes * Farnaz Ruiz LPN - 08/25/2024 12:57 PM EDT Patient and implanted device were evaluated today in the [facility]. Providers please see scanned report in the Scans tab. Left pectoral device pocket is healthy without erythema, swelling, pain, or drainage. Battery longevity 4.5 years 2- 1 second episodes of [place] New home monitor ordered. documented in this encounter Plan of Treatment Upcoming Encounters Date Type Department Care Team (Latest Contact Info) Description 4 1:15 PM EDT Office Visit Hematology/Onc ology [facility] [address] [phone] Ramon Cadet MD [address] [place] [address] 4 1:45 PM EDT Hem/Onc Treatment Hematology/Onc ology Treatment, [place] [address] [place] [address] 4 6:30 AM EDT Anticoagulation Centralized Clinical Pharmacy Services, [address] [place] [address] [facility], [address] [place] [address] 4 2:00 PM EDT Office Visit Cardiology, [facility] [address] [place] [address] Chas Wilkinson PA-Raymon [address] [place] [address] 4 1:00 PM EST Nurse Only Hematology/Onc ology Treatment, [place] [address] [place] [address] Marylou, Chair 5 Hem Onc [facility] [address] [facility] [place] [address] 4 9:30 AM EST [place] [facility] [place], HFAM 1, [address] [place] [address] Domingo Garcia DO [address] [place] [facility] [address] 4 9:30 AM EST - 4 10:45 AM EST Surgery [place] [facility] [place] Endoscopy Suite, HFAM 1, [address] [place] [address] Domingo Garcia DO [address] [place] [facility] [place] [address] ESOPHAGOGASTRODUODENOSCOPY (EGD), FLEXIBLE, TRANSORAL, DIAGNOSTIC 5 11:20 AM EST Office Visit [address] [place] [phone] Bell Mcqueen MD [address] [place] [address] [place] [address] Scheduled Orders Name Type Priority Associated Diagnoses Orde r Schedule SINGLE-LEAD PACEMAKER + REPROGRAM Procedures Routine Paroxysmal SVT (supraventricular tachycardia) (HCC) Permanent atrial fibrillation (HCC) Cardiac pacemaker in situ Chronic right-sided heart failure (HCC) Ordered: 08/25/2024 Scheduled Procedures Name Priority Associated Diagnoses Date/Ti me ESOPHAGOGASTRODUODENOSCOPY ( EGD), FLEXIBLE, TRANSORAL, DIAGNOSTIC Recall Stark's esophagus with dysplasia 11/05/2024 9:30 AM EST COLONOSCOPY FLEXIBLE PROXIMA L DIAGNOSTIC Recall Stark's esophagus with dysplasia 11/05/2024 9:30 AM EST Health Maintenance Due Date Last Done Comments Adult Wellness Visit 2003 Depression Screening 07/12/2021 07/12/2020 CKD PHOS USE SMARTSET 14968 08/21/2022 1002/2021, 07/12/2020, 03/13/2019, Additional history exists *BISPHONATE OR OTHER ACCEPTABLE MEDICATION NEEDED FOR OSTEOPOROSIS (REFER TO SMARTSET #1146) 10/14/2023 Albumin/Creatinine Ratio 04/22/2024 023, 05/24/2022, 03/26/2022, Additional history exists Stark's Esophagus Surveilance 02/26/2025 02/26/2022, 02/26/2022, 07/04/2021, Additional history exists DXA Scan 07/05/2025 07/05/2023, 10/19, 11/04/2018, Additional history exists CKD HGB USE SMARTSET 90990 08/19/202508/19, 08/19/2024, 08/04/2024, Additional history exists TSH 08/19/2025 08/19/2024, 07/19, 01/21/2024, Additional history exists DTap/Tdap Vaccines (2 - Td or Tdap) 08/19/2027 08/19/2017, 08/20/2008 Pneumococcal Vaccine: 65+ Years Completed 06/23/2015, 05/14/2013, 04/18/2004 Zoster Vaccines Completed 12/02/2020, 08/15/2020 VITAMIN D LEVEL ONCE IN A LIFETIME-USE SMARTSET# [id number] Completed 04/22/2023, 08/28/2021, 07/14/2015 COVID-19 Vaccine Completed [...] this encounter Medical Devices Implanted Type Area Rehabilitation Aide Device Identifier Shelf Expiration Date Model / Serial / Lot Power Port 8fr Sngl Lumen Plas - [id number] Implanted:Qty: 1 on 02/22/2022 at [facility] : PERIPHERAL VASCULAR [id number] 02/15/2023 [id number] / / [id number] documented as of this encounter Visit Diagnoses Diagnosis Paroxysmal SVT (supraventricular tachycardia) (HCC)- Primary Paroxysmal supraventricular tachycardia Permanent atrial fibrillation (HCC) Atrial fibrillation Cardiac pacemaker in situ Chronic right-sided heart failure (HCC) Congestive heart failure, unspecified Stark's esophagus with dysplasia Stark's esophagus documented in this encounter Advance Directives * Full Code (Latest Code Status on File) Date Activated Date Inactivated Comments 09/03/2007 7:29 AM 09/03/2007 4:02 PM Care Teams Criminal Research Specialist Relationship Specialty Start Date End Date Bell Mcqueen MD [address] [place] [address] [place] [address] PCP - General Family Medicine 06/24/24 documented as of this encounter
--- OUTSIDE RECORDS SUMMARY | 2024-09-02 11:46 | External Medical Summary | Summary of Care ---
Author Name Unknown Organization [facility] Address [address] [facility] [address] Phone [phone] Care Team Providers Care Realtime Captioner Name Role Phone Bell Mcqueen MD Primary Care Provide r Reason for Visit * Reason Comments Dosage Adjustment Via Phone (anticoag Cl inic) Encounter Details Date Type Department Care Team (Late st Contact Info) Description 08/19/2024 6:30 AM EDT Anticoagulation Centralized Clinical Pharmacy Services, Angela Giles [address] [place] [address] [place] [address] [place] [address] Hx of pulmonary embolus*; Longstanding persistent atrial [...] albuterol 120 mL 5 11/21/2022 Active Ipratropium [place] 0.02 % Inhalation Solution (Atrovent)Indicatio ns:Moderate persistent [...] INSTRU[facility] BY [facility] 90 Tablet 3 05/07/2024 [...] Respimat 2.5 MCG/ACT Inhalation Aerosol Solution (Tiotropium [place] Monohydrate)Indicat ions:Moderate persistent asthma without complication INHALE 2 PUFFS BY MOUTH EVERY DAY 12 g 3 07/28/2024 Active ProAir HFA 108 (90 Base) MCG/ACT Inhalation Aerosol SolutionIndications :Moderate persistent asthma with exacerbation Inhale 2 Puffs by mouth every 4 hours as needed for Wheezing. 8.5 g 2 07/29/2024 Active Fluticasone Propionate 50 MCG/ACT Nasal Suspension (Flonase)Indication s:Acute cough Administer 1 [place] into each nostril 2 times a day. [...] rinse after steroid. Test performed by Sameer MAINSPRING FABRICATION SUPERVISOR CPFT Pleural plaque due to asbestos exposure Restrictive lung disease Overview: In Check dial performed to assess inhaler technique: 12/15/19 Name of inhalers Albuterol Pass: Yes at 60 L/min and Advair Pass: Yes at 60 L/min. Encouraged to to take deep breath, use aero chamber, and rinse after steroid. 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 current use of ant icoagulant therapy 05/30/2005 [...] mRNA, LNP-s, No Pre serve, 2-Dose Series (LumiThera) 12/01/2021,01/16/2021,12/26/2020 COVID-19, LNP-s, No Preserve , Ozzy-sucrose, Ages 12+ (LumiThera) 12/01/2021 COVID-19, MRNA-LNP, 23-24, P F, 30 MCG/0.3 mL, 12 YRS AND ABOVE, IM ([facility]) 09/18/2023 Covid-19, Mrna, Lnp-s, Pf, B ivalent, 30 Mcg, IM, 12 yrs and above (LumiThera) 10/09/2022 Pneumococcal Conjugate Vacc, 13 Valent (Prevnar) [...] Progress Notes * Teddy Garcia CPhT - 08/19/2024 11:08 AM EDT Contacts Contact Date/Time Type Contact Phone/Fax 08/19/2024 10:57 AM EDT Phone (Outgoing) Patrick Robles "Rafa" (Self) [phone] (M) Left Message Subjective Advised patient to contact Anticoagulation Clinic if any unusual bruising or bleeding, recent illness, changes in medication, or questions/concerns. PT/INR results, Coumadin dose instructions, and next PT/INR date communicated as noted by Pharmacist: Yes Teddy Garcia CPhT 08/19/2024, 11:08 AM * Tammie Scruggs [facility] - 08/19/2024 10:09 AM EDT Coumadin Clinic (region specific) Objective Current Warfarin Dose As of 08/19/2024 Warfarin maintenance plan: 0 mg every Mon, Fri; 2.5 mg (5 mg x 0.5) all other days INR Result As of 08/19/2024 INR goal: 2.0-3.0 INR used for dosin.9 (08/18/2024) Assessment & Plan Warfarin Plan As of 08/19/2024 Full warfarin instructions: 08/19: 5 mg; Otherwise 0 mg every Mon, Fri; 2.5 mg all other days Next INR check: 09/01/2024 Repeat PT/INR in 2 week(s) Weekly dose: not changed Additional Dosing Information: Description Home machine 08/18 - Cystoscopy with Dr. Gardner (pt does not usually have to hold warfarin) 11/05/24- Watchmaker Apprentice to contact patient with dose instructions as noted. Tammie Scruggs RPh 08/19/2024, 10:09 AM documented in this encounter Plan of Treatment Upcoming Encounters Date Type Department Care Team (Latest Contact Info) Description 4 9:40 AM EDT Office Visit Family Medicine [address] [place] [phone] Juancho Romero MD [address] [place] [address] [place] [address] 4 10:30 AM EDT Laboratory Laboratory [address] [place] [phone] [facility] [address] [place] [address] 4 11:30 AM EDT Cardiac Studies Cardiology [address] [place] [address] [facility] Pacer [facility] [address] [place] [address] 4 12:00 PM EDT Office Visit Cardiology [address] [place] [address] Chas Wilkinson PA-C [address] [place] [address] 4 1:15 PM EDT Office Visit Hematology/Onc ology [employer] [address] [phone] Ramon Cadet MD 200 [facility] [place] [address] 4 1:45 PM EDT Hem/Onc Treatment Hematology/Onc ology Treatment, [place] [address] [facility] [phone] 4 6:30 AM EDT Anticoagulation Centralized Clinical Pharmacy Services, Angela Giles [address] [place] [address] [place] [address] [facility], [address] [place] [address] 4 1:00 PM EST Nurse Only Hematology/Onc ology Treatment, [place] 200 [facility] [place] [phone] [place], Chair 5 Hem Onc [address] [place] [address] 4 9:30 AM EST Hospital Encounter [place] [facility] [place] Endoscopy Suite, HFAM 1, [address] [place] [address] Domingo Garcia DO [address] [place] [address] 4 9:30 AM EST - 4 10:45 AM EST Surgery [facility] [place] Endoscopy Suite, HFAM 1, [address] [place] [address] Domingo Garcia DO [address] [place] [address] ESOPHAGOGASTRODUODENOSCOPY (EGD), FLEXIBLE, TRANSORAL, DIAGNOSTIC 5 11:20 AM EST Office Visit [address] [place] [phone] Bell Mcqueen MD [address] [place] [address] [place] [address] Scheduled Procedures Name Priority Associated Diagnoses Date/Ti me ESOPHAGOGASTRODUODENOSCOPY ( EGD), FLEXIBLE, TRANSORAL, DIAGNOSTIC Recall Stark's esophagus with dysplasia 11/05/2024 9:30 AM EST COLONOSCOPY FLEXIBLE PROXIMA L DIAGNOSTIC Recall Stark's esophagus with dysplasia 11/05/2024 9:30 AM EST Health Maintenance Due Date Last Done Comments Adult Wellness Visit 2003 Depression Screening 07/12/2021 07/12/2020 CKD PHOS USE SMARTSET 06856 08/21/2022 10/0 02/2021, 07/12/2020, 03/13/2019, Additional history [...] Additional history exists CKD HGB USE SMARTSET 59030 08/19/202508/19, 08/19/2024, 08/04/2024, Additional history exists DTap/Tdap Vaccines (2 - Td or Tdap) 08/19/2027 08/19/2017, 08/20/2008 Pneumococcal Vaccine: 65+ Years Completed 06/23/2015, 05/14/2013, 04/18/2004 Zoster Vaccines Completed 12/02/2020, 08/15/2020 VITAMIN D LEVEL ONCE IN A LIFETIME-USE SMARTSET# [id number] Completed 04/22/2023, 08/28/2021, 07/14/2015 HPV (Gardasil) Vaccine Aged Out No lo nger eligible based on patient's age to complete this topic Hepatitis B Vaccine Aged Out No longe r eligible based on patient's age to complete this topic MENINGOCOCCAL (MENACTRA/MENVEO) Aged Out No longer eligible based on patient's age to complete this topic documented as of this encounter Medical Devices Implanted Type Area Program Scheduler Device Identifier Shelf Expiration Date Model / Serial / Lot Power Port 8fr Sngl Lumen Plas - [id number] Implanted:Qty: 1 on 02/22/2022 at [facility] CR [facility]ARD : PERIPHERAL VASCULAR [id number] 02/15/2023 [id number] / / [id number] documented as of this encounter Procedures Procedure Name Priority Date/Time Associated Diagnosis Comments OUTSIDE LAB-PT/INR Routine 08/18/2024 documented in this encounter Results * OUTSIDE LAB-PT/INR (08/18/2024) INR-OUTSIDE LAB 1.9 HOME FINGERSTIC K DEVICE [...] 7:29 AM 09/03/2007 4:02 PM Care Teams Realtime Captioner Relationship Specialty Start Date End Date Bell Mcqueen MD [address] [place] [address] [place] [address] PCP - General Family Medicine 06/24/24 documented as of this encounter
--- OUTSIDE RECORDS SUMMARY | 2024-09-02 11:46 | External Medical Summary | Summary of Care ---
Author Name Unknown Organization [facility] Address [address] [place] [address] Phone [phone] Care Team Providers Care Ophthalmic Surgeon Name Role Phone Bell Mcqueen MD Primary Care Provide r Reason for Visit * Reason Comments Hospital Follow-Up Pt states feeling "p retty good". Pt's states he's having good days and bad days with confusion, he's sleeping better since he started trazodone. Encounter Details Date Type Department Care Team (Late st Contact Info) Description 08/20/2024 9:40 AM EDT Office Visit Family Medicine [address] [phone] Juancho Romero MD [address] [place] [address] [place] [address] Carcinoma of bladder (HCC)* Allergies Active Allergy Reactions Criticality Noted Date Comments Penicillins Other (Please comment),Rash High Eyes swell Pollen 05/03/2022 Wound Dressing Adhesive Rash 05/02/2023 Patient reported Olanzapine Neuro complications (Please comment) 04/09/2024 documented as of this encounter (statuses as of 08/20/2024) Medications Medication Sig Dispensed Refills Start Date End Date Status CO Q10 100 MG PO TABS 1 tab once daily Active ZOVIRAX 5 % EX OINT 5 times daily as needed. Active Polyethylene Glycol 3350 17 GM Oral Packet Take 1 Packet by mouth in the morning. 14 Each 0 05/08/2016 Active Vitamin B12 500 MCG Oral TabletIndications [...] 120 mL 5 11/21/2022 Active Ipratropium [place] 0.02 % Inhalation Solution (Atrovent)Indicat ions:Moderate persistent [...] 05/07/2024 Active Spironolactone 25 MG Oral Tablet (Aldactone)Indica [...] 2.5 MCG/ACT Inhalation Aerosol Solution (Tiotropium [place] Monohydrate)Indic ations:Moderate persistent asthma without complication INHALE 2 PUFFS BY MOUTH EVERY DAY 12 g 3 07/28/2024 Active ProAir HFA 108 (90 Base) MCG/ACT Inhalation Aerosol SolutionIndicatio ns:Moderate persistent asthma with exacerbation Inhale 2 Puffs by mouth every 4 hours as needed for Wheezing. 8.5 g 2 07/29/2024 Active Fluticasone Propionate 50 MCG/ACT Nasal Suspension (Flonase)Indicati ons:Acute cough Administer 1 [place] into each nostril 2 times a day. [...] Active traZODone HCl 50 MG Oral Tablet (Desyrel)Indicati ons:Insomnia, unspecified type Take 1 Tablet by mouth at bedtime. 30 Tablet 5 08/14/2024 Active Levothyroxine Sodium 150 MCG Oral Tablet (Levoxyl)Indicati ons:Carcinoma of bladder (HCC) One daily (at least 30 min prior to breakfast or other meds) 90 Tablet 1 08/20/2024 Active Levothyroxine Sodium 125 MCG Oral Tablet (Levoxyl)Indicati ons:Carcinoma of bladder (HCC) TAKE 1 TAB BY MOUTH DAILY FIRST THING IN THE MORNING AT LEAST 30 MIN PRIOR TO BREAKFAST/OTHER MEDS 90 Tablet 2 05/07/2024 08/20/20 24 Discontinued documented as of this encounter (statuses as of 08/20/2024) Active Problems Problem Noted Date Diagnosed Date [...] rinse after steroid. Test performed by Sameer JUDGE CLERK CPFT Pleural plaque due to asbestos exposure Restrictive lung disease Overview: In Check dial performed to assess inhaler technique: 12/15/19 Name of inhalers Albuterol Pass: Yes at 60 L/min and Advair Pass: Yes at 60 L/min. Encouraged to to take deep breath, use aero chamber, and rinse after steroid. 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 Overview: Joaquin C0-M6 documented as of this encounter (statuses as of 08/20/2024) Resolved Problems Problem Noted Date Diagnosed Date [...] as of this encounter (statuses as of 08/20/2024) Immunizations Name Administration Dates Next Due COVID-19 mRNA, LNP-s, No Pre serve, 2-Dose Series (CREOpoint) 12/01/2021,01/16/2021,12/26/2020 COVID-19, LNP-s, No Preserve , Ozzy-sucrose, Ages 12+ (CREOpoint) 12/01/2021 COVID-19, MRNA-LNP, 23-24, P F, 30 MCG/0.3 mL, 12 YRS AND ABOVE, IM ([employer]) 09/18/2023 COVID-19, MRNA-LNP, 24-25, P R, 30MCG/0.3ML, IM, 12YRS AND ABOVE ([employer]) 08/20/2024 Covid-19, Mrna, Lnp-s, Pf, B ivalent, 30 Mcg, IM, 12 yrs and above (CREOpoint) 10/09/2022 Pneumococcal Conjugate Vacc, 13 Valent (Prevnar) [...] Reading Time Taken Comments Blood Pressure 122/58 08/20/2024 9:41 AM EDT Pulse 64 08/20/2024 9:41 AM EDT Temperature - - Respiratory Rate 16 08/20/2024 9:41 AM EDT Oxygen Saturation - - Inhaled Oxygen Concentration - - Weight 64.3 kg (141 lb 12.8 oz) 08/20/2024 9:41 AM EDT Height - - Body Mass Index 25.12 06/01/2024 9:58 AM EDT documented in this encounter Progress Notes * Juancho Romero MD - 08/20/2024 9:36 AM EDT Rafa was in [facility] 08/08 to 08/11 due to decompensated CHF with normal LVEF, diuretics adjusted. He was skipping doses at home. Daughter needs FMLA done to help out. 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 Joaquin C0-M6 Benign neoplasm of colon 03/09/2002 Benign neoplasm of colon 09/21/2009 2 tubular adenomas removed BPH without obstruction/lower urinary tract symptoms 01/2006 Dr Goodwin Calcifying tendinitis of shoulder 10/03/2000 Cardiac pacemaker in situ 10/01/2017 Cataract 06/2012 [place] Cellulitis of leg, left 05/18/2024 Seen in [facility] ER for cellulitis and altered mental status, given doxycyycline Cholelithiases COVID-19 10/25/2020 [facility] Diastolic CHF with preserved left ventricular function, NYHA class 4 (HCC) 08/08/2024 [facility] DIASTOLIC DYSFUNCTION 11/22/2004 GRADE II Diverticulosis of colon Dyslipidemia, goal LDL below 70 Epididymitis 03/31/2024 admitted [facility] Fractured rib 09/25/2022 fractures of right 6-10 Generalized osteoarthritis Herniated nucleus pulposus, L4-5 right Hiatal hernia Hx of pulmonary embolus Hypertensive heart disease 11/22/2004 mild concentric lvh on stress echo 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) Left ventricular diastolic dysfunction, NYHA class 1 Grade I impaired relaxation Long-segment Stark's esophagus 07/28/2020 Joaquin C0-M5 Malignant neoplasm of prostate (HCC) 09/23/2008 [place] grade 3 Malignant neoplasm of sigmoid colon (HCC) [address] [place] Moderate persistent asthma without complication Norovirus 04/05/2024 Paroxysmal SVT (supraventricular tachycardia) (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 Dillard ARTHROPLASTY KNEE TOTAL Left 05/09/2017 Dr [...] performed by Domingo Garcia DO at ENDOSCOPY [facility] EGD, FLEXIBLE, DIAGNOSTIC N/A 03/14/2020 Partially treated Stark's stage C0-M9 per Joaquin Criteria Multiple gastric polyps, performed by Domingo Garcia DO at ENDOSCOPY [facility] EGD, FLEXIBLE, DIAGNOSTIC N/A 05/25/2020 6 cm Joaquin C0-M6 Barretts lower esophagus, with radiofrequency ablation, performed by Domingo Garcia DO at ENDOSCOPY [facility] EGD, FLEXIBLE, DIAGNOSTIC N/A 07/28/2020 long segment Stark's Joaquin C0-M5, with nodlule at 31 cm, performed by Domingo Garcia DO at ENDOSCOPY [facility] EGD, FLEXIBLE, DIAGNOSTIC N/A 09/28/2020 C0-M1 Barretts, gastric polyps, 3 cm hiatal hernia, performed by Domingo Garcia DO at ENDOSCOPY [facility] EGD, FLEXIBLE, DIAGNOSTIC N/A 11/30/2020 residual Stark's, performed by Domingo Garcia DO at ENDOSCOPY [facility] EGD, FLEXIBLE, DIAGNOSTIC N/A 01/31/2021 residual Stark's EGD, FLEXIBLE, DIAGNOSTIC N/A 01/31/2021 ESOPHAGOGASTRODUODENOSCOPY (EGD), FLEXIBLE, TRANSORAL, DIAGNOSTIC performed by Domingo Garcia DO at ENDOSCOPY [facility] EGD, FLEXIBLE, DIAGNOSTIC N/A 07/04/2021 ESOPHAGOGASTRODUODENOSCOPY (EGD), FLEXIBLE, TRANSORAL, DIAGNOSTIC performed by Domingo Garcia DO at ENDOSCOPY [facility] EGD, FLEXIBLE, DIAGNOSTIC 02/26/2022 short segment Stark's at 31 cm, GE flap Hill Grade IV, 4 cm hiatal hernia EGD, FLEXIBLE, DIAGNOSTIC N/A 02/26/2022 ESOPHAGOGASTRODUODENOSCOPY (EGD), FLEXIBLE, TRANSORAL, DIAGNOSTIC performed by Domingo Garcia DO at ENDOSCOPY [facility] EGD, FLEXIBLE, LESION ABLATION N/A 07/04/2021 2 cm hiatal hernia, Ablation of Joaquin C0-M1 Stark's, multiple fundic gland polyps ELECTROPHYSIOLOGIC [...] 04/21/2002 for tubulovillous adenoma, Dr Beasley at [facility] PARTIAL REMOVAL OF COLON 08/08/2015 right colectomy 08/08/2015 dr. de leon [facility] REMOVE CATARACT, INSERT LENS PROSTH 07/2012 [...] Narrative Used to spend the winter in [place]. In 2018 they are doing a [employer] cruise for 15 days. Social Determinants of Health Financial Resource Strain: Not on file Food Insecurity: No Food Insecurity (01/22/2020) Hunger Vital Sign Worried About Running Out of Food in the Last Year: Never true Ran Out of Food in the Last Year: Never true Transportation Needs: Not on file Social Connections: Unknown (08/20/2024) Social Connections How often do you feel [...] Mix with albuterol 120 mL 5 Ipratropium [place] 0.02 % Inhalation Solution (Atrovent) Inhale 2.5 [...] [facility] 90 Tablet 3 Levothyroxine Sodium [...] 2.5 MCG/ACT Inhalation Aerosol Solution (Tiotropium [place] Monohydrate) INHALE 2 PUFFS BY MOUTH EVERY DAY 12 g 3 ProAir HFA 108 (90 Base) MCG/ACT Inhalation Aerosol Solution Inhale 2 Puffs by mouth every 4 hours as needed for Wheezing. 8.5 g 2 Fluticasone Propionate 50 MCG/ACT Nasal Suspension (Flonase) Administer 1 [place] into each nostril 2times a day. 16 [...] by mouth at bedtime. 30 Tablet 5 No current facility-administered medications for this visit. Results for orders placed or performed in visit on 08/19/24 COMPREHENSIVE METABOLIC PANEL Result Value Ref Range BUN 43 (H) 6 - 20 mg/dL CREATININE 1.7 (H) 0.6 - 1.2 mg/dL EGFR 40 (L) >=60 mL/min SODIUM 136 135 - 146 mmol/L POTASSIUM 4.5 3.5 - 5.1 mmol/L CHLORIDE 100 98 - 107 mmol/L CO2 25 22 - 32 mmol/L ANION GAP 11 7 - 15 mmol/L GLUCOSE 117 70 - 120 mg/dL Albumin 3.7 (L) 3.8 - 5.0 g/dL AST 21 10 - 50 U/L Alkaline Phosphatase 91 35 - 130 U/L Bilirubin, Total 1.0 <=1.2 mg/dL CALCIUM 9.1 8.4 - 10.2 mg/dL Protein 6.3 6.0 - 8.3 g/dL ALT 9 (L) 10 - 50 U/L Lab Results Component Value Date/Time TSH - [facility] 16.60 (H) 08/19/2024 10:00 AM TSH - [facility] 18.90 (H) 07/28/2024 11:08 AM TSH - [facility] 4.13 01/21/2024 10:59 AM TSH - [facility] 3.75 02/18/2007 10:20 AM TSH - [facility] 3.52 05/15/2005 02:11 PM TSH - [facility] 5.30 (H) 05/02/2005 08:31 AM T4 Results: Lab Results Component Value Date/Time FREE PSA 0.48 10/19/2016 09:41 AM FREE PSA PERCENT 20 (L) 10/19/2016 09:41 AM T4, FREE - [facility] 1.2 08/19/2024 10:00 AM T4, FREE - [facility] 1.0 07/28/2024 11:08 AM T4, FREE - [facility] 1.1 10/08/2023 10:16 AM T4, FREE - [facility] 0.82 05/15/2005 02:11 PM CBC Results: Results for orders placed or performed in visit on 08/19/24 CBC Result Value Ref Range WBC 5.58 4.00 - 10.80 K/uL RBC 3.04 4.50 - 5.25 M/uL HGB 8.0 (L) 14.0 - 16.8 g/dL HCT 29.0 (L) 40.0 - 48.4 % MCV 95.4 82.0 - 99.5 fL MCH 26.3 27.0 - 34.0 pg MCHC 27.6 32.0 - 36.0 g/dL RDW 18.4 11.5 - 15.5 % PLT 132 (L) 140 - 400 K/uL MPV 11.0 6.6 - 11.1 fL O: Blood pressure 122/58, pulse 64, resp. rate 16, weight 64.3 kg (141 lb 12.8 oz). .g Neck is supple without adenopathy or thyromegaly. Chest is symmetrical and moves normally. The lungs are clear without wheezes, rales, rhonchi or rubs, and the heart is regular without murmurs or gallops, or ectopy. PMI not displaced. A: Carcinoma of bladder (HCC) - Levothyroxine Sodium 150 MCG Oral Tablet (Levoxyl); One daily (at least 30 min prior to breakfastor other meds) Other orders - COVID-19, MRNA-LNP, PF, 24-25, 30MCG/0.3ML, IM, 12YRS AND ABOVE (PFIZER) Follow Up: Return if symptoms worsen or fail to improve. documented in this encounter Plan of Treatment Upcoming Encounters Date Type Department Care Team (Latest Contact Info) Description 10:30 AM EDT Laboratory Laboratory [address] [place] [phone] [facility] [address] [place] [address] 11:30 AM EDT Cardiac Studies Cardiology [address] [place] [address] [facility] [address] [place] [address] 12:00 PM EDT Office Visit Cardiology [address] [place] [address] Chas Wilkinson PA-C [address] [place] [address] 4 1:15 PM EDT Office Visit Hematology/Onc ology [address] [place] [phone] Ramon Cadet MD [address] [facility] [place] [address] 4 1:45 PM EDT Hem/Onc Treatment Hematology/Onc ology [facility] [place] [address] [facility] [place] [phone] 4 6:30 AM EDT Anticoagulation [facility], Angela Giles [address] [place] [address] [place] [address] [facility], [address] [place] [address] 4 1:00 PM EST Nurse Only Hematology/Onc ology Treatment, [place] [facility] [place] [phone] Marylou, Chair 5 Hem Onc Scenery [address] [place] [address] 4 9:30 AM EST Hospital Encounter ENDO [facility], Endoscopy Suite, [facility] 1, [address] [place] [address] Domingo Garcia DO [address] [place] [address] 4 9:30 AM EST - 4 10:45 AM EST Surgery ENDO [facility], Endoscopy Suite, [facility] [address], [address] [place], [place] [phone] Domingo Garcia DO [address] [place] [address] ESOPHAGOGASTRODUODENOSCOPY (EGD), FLEXIBLE, TRANSORAL, DIAGNOSTIC 5 11:20 AM EST Office Visit Family [address] [place] [phone] Bell Mcqueen MD [address] [place] [address] [place] [address] Scheduled Procedures Name Priority Associated Diagnoses Date/Ti me ESOPHAGOGASTRODUODENOSCOPY ( EGD), FLEXIBLE, TRANSORAL, DIAGNOSTIC Recall Stark's esophagus with dysplasia 11/05/2024 9:30 AM EST COLONOSCOPY FLEXIBLE PROXIMA L DIAGNOSTIC Recall Stark's esophagus with dysplasia 11/05/2024 9:30 AM EST Health Maintenance Due Date Last Done Comments Adult Wellness Visit 2003 Depression Screening 07/12/2021 07/12/2020 CKD PHOS USE SMARTSET 90078 08/21/2022 10/0 02/2021, 07/12/2020, 03/13/2019, Additional history exists *BISPHONATE OR OTHER ACCEPTABLE MEDICATION NEEDED FOR OSTEOPOROSIS (REFER TO SMARTSET #1146) 10/14/2023 Albumin/Creatinine Ratio 04/22/2024 023, 05/24/2022, 03/26/2022, Additional history exists Stark's Esophagus Surveilance 02/26/2025 02/26/2022, 02/26/2022, 07/04/2021, Additional history exists DXA Scan 07/05/2025 07/05/2023, 10/19, 11/04/2018, Additional history exists CKD HGB USE SMARTSET 74416 08/19/202508/19, 08/19/2024, 08/04/2024, Additional history exists TSH 08/19/2025 08/19/2024, 07/19, 01/21/2024, Additional history exists DTap/Tdap Vaccines (2 - Td or Tdap) 08/19/2027 08/19/2017, 08/20/2008 Pneumococcal Vaccine: 65+ Years Completed 06/23/2015, 05/14/2013, 04/18/2004 Zoster Vaccines Completed 12/02/2020, 08/15/2020 VITAMIN D LEVEL ONCE IN A LIFETIME-USE SMARTSET# [id number] Completed 04/22/2023, 08/28/2021, 07/14/2015 COVID-19 Vaccine Completed [...] this encounter Medical Devices Implanted Type Area Hydroelectric Operator Device Identifier Shelf Expiration Date Model / Serial / Lot Power Port 8fr Sngl Lumen Plas - [id number] Implanted:Qty: 1 on 02/22/2022 at [facility] : PERIPHERAL VASCULAR [id number] 02/15/2023 [id number] / / [id number] documented as of this encounter Visit Diagnoses Diagnosis Carcinoma of bladder (HCC)- Primary Malignant neoplasm of bladder, part unspecified Stark's esophagus with dysplasia Stark's esophagus documented in this encounter Advance Directives * Full Code (Latest Code Status on File) Date Activated Date Inactivated Comments 09/03/2007 7:29 AM 09/03/2007 4:02 PM Care Teams Ophthalmic Surgeon Relationship Specialty Start Date End Date Bell Mcqueen MD [address] [place] [address] [place] [address] PCP - General Family Medicine 06/24/24 documented as of this encounter
--- OUTSIDE RECORDS SUMMARY | 2024-09-02 11:46 | External Medical Summary ---
Author Name Unknown Address Unknown Organization [id number]:[facility] - [facility] [address] [facility] [address] Laboratory Report Ordering Provider Test Date Status ADRIENNE SALCIDO 08/25/2024 11:10:27 Final Observation Date Value Abnormality Reference (Units ) Status WBC, Total 08/25/2024 11:10:27 4.38 4.00-10.80 (K/uL) Final RBC 08/25/2024 11:10:27 2.93 4.50-5.25 (M/uL) Final Hemoglobin 08/25/2024 11:10:27 7.7 Below low normal 14.0-16.8 (g/dL) Final HCT 08/25/2024 11:10:27 28.3 Below low normal 40.0-48.4 (%) Final MCV 08/25/2024 11:10:27 96.6 82.0-99.5 (fL) Final MCH 08/25/2024 11:10:27 26.3 27.0-34.0 (pg) Final MCHC 08/25/2024 11:10:27 27.2 32.0-36.0 (g/dL) Final RDW 08/25/2024 11:10:27 18.5 11.5-15.5 (%) Final Platelets 08/25/2024 11:10:27 138 Below low normal 140-400 (K/uL) Final MPV 08/25/2024 11:10:27 11.8 6.6-11.1 (fL) Final Nucleated erythrocytes/100 leukocytes [Ratio] in Blood by Automated count 08/25/2024 11:10:27 0 <=0 (/100 WBCs) Final Performing Location [facility] [address] [facility] [address]
--- OUTSIDE RECORDS SUMMARY | 2024-09-02 11:46 | External Medical Summary ---
Author Name Unknown Address Unknown Organization [id number]:[facility] [address] [facility] [address] Laboratory Report Ordering Provider Test Date Status ADRIENNE SALCIDO 08/25/2024 11:10:27 Final Observation Date Value Abnormality Reference (Units ) Status SYNC LEUKOCYTES IN BLOOD BY AUTOMATED COUNT 08/25/2024 11:10:27 4.38 4.00-10.80 (K/uL) Final Segs 08/25/2024 11:10:27 71.3 40.0-75.0 (%) Final Lymphs % 08/25/2024 11:10:27 13.5 Below low normal 18.0-42.0 (%) Final Monos 08/25/2024 11:10:27 11.9 Above high normal 1.0-11.0 (%) Final Eosinophils 08/25/2024 11:10:27 1.1 0.0-6.0 (%) Final Basos 08/25/2024 11:10:27 1.1 0.0-2.0 (%) Final Immature Granulocyte, Percent 08/25/2024 11:10:27 1.1 0.0-2.0 (%) Final Absolute Segs 08/25/2024 11:10:27 3.12 1.80-7.70 (K/uL) Final Lymphs, absolute 08/25/2024 11:10:27 0.59 Below low normal 1.00-4.80 (K/ul) Final Monos, Abs 08/25/2024 11:10:27 0.52 0.00-1.10 (K/uL) Final Eos, Abs 08/25/2024 11:10:27 0.05 0.00-0.70 (K/uL) Final Basos, Abs 08/25/2024 11:10:27 0.05 0.00-0.20 (K/uL) Final Immature Granulocytes, Number 08/25/2024 11:10:27 0.05 0.00-0.20 (K/uL) Final Performing Location [facility] [address]. [facility] [address]
--- OUTSIDE RECORDS SUMMARY | 2024-09-02 11:46 | External Medical Summary | Summary of Care ---
Author Name Unknown Organization [facility] Address [address] [place] [address] Phone [phone] Care Team Providers Care Financial Aid Manager Name Role Phone Bell Mcqueen MD Primary Care Provide r Encounter Details Date Type Department Care Team (Late st Contact Info) Description 08/25/2024 Result Scan Unspecified Department Andres Rainey MD [address] [place] [id number] <No scans attached> Allergies Active Allergy Reactions [...] albuterol 120 mL 5 11/21/2022 Active Ipratropium [place] 0.02 % Inhalation Solution (Atrovent)Indicatio ns:Moderate persistent [...] EVERY EVENING. OR TAKE INSTRUCTED BY THE [facility] 90 Tablet 3 [...] Respimat 2.5 MCG/ACT Inhalation Aerosol Solution (Tiotropium [place] Monohydrate)Indicat ions:Moderate persistent asthma without complication INHALE 2 PUFFS BY MOUTH EVERY DAY 12 g 3 07/28/2024 Active ProAir HFA 108 (90 Base) MCG/ACT Inhalation Aerosol SolutionIndications :Moderate persistent asthma with exacerbation Inhale 2 Puffs by mouth every 4 hours as needed for Wheezing. 8.5 g 2 07/29/2024 Active Fluticasone Propionate 50 MCG/ACT Nasal Suspension (Flonase)Indication s:Acute cough Administer 1 [place] into each nostril 2 times a day. [...] rinse after steroid. Test performed by Sameer BOX ANNEALER CPFT Pleural plaque due to asbestos exposure Restrictive lung disease Overview: In Check dial performed to assess inhaler technique: 12/15/19 Name of inhalers Albuterol Pass: Yes at 60 L/min and Advair Pass: Yes at 60 L/min. Encouraged to to take deep breath, use aero chamber, and rinse after steroid. Test performed by Sameer BOX ANNEALER CPFT Hx of pulmonary embolus Stark's esophagus determined by endoscopy Overview: Mcallen C0-M6 documented as of this encounter (statuses [...] mRNA, LNP-s, No Pre serve, 2-Dose Series (Sentiment) 12/01/2021,01/16/2021,12/26/2020 COVID-19, LNP-s, No Preserve , Ozzy-sucrose, Ages 12+ (Pfizer) 12/01/2021 COVID-19, MRNA-LNP, 23-24, P F, 30 MCG/0.3 mL, 12 YRS AND ABOVE, IM ([facility]) 09/18/2023 COVID-19, MRNA-LNP, 24-25, P R, 30MCG/0.3ML, IM, 12YRS AND ABOVE ([facility]) 08/20/2024 Covid-19, Mrna, Lnp-s, Pf, B ivalent, 30 Mcg, IM, 12 yrs and above (Sentiment) 10/09/2022 Pneumococcal Conjugate Vacc, 13 Valent (Prevnar) [...] 1:15 PM EDT Office Visit Hematology/Onc ology [facility] [address] [facility] [place] [phone] Ramon Cadet MD [address] [facility] [address] [facility] [place] [address] 4 1:45 PM EDT Hem/Onc Treatment Hematology/Onc ology Treatment, [place] [address] [facility] [place] [phone] 4 10:20 AM EDT Laboratory Laboratory [address] [place] [phone] [place] [address] 4 6:30 AM EDT Anticoagulation [facility], Angela Giles [address] [place] [address] [place] [address] [place] [address] 4 1:45 PM EDT Hem/Onc Treatment Hematology/Onc ology Treatment, [place] [address] [facility] [place] [phone] 4 2:00 PM EDT Office Visit Cardiology, [facility] [address] [place] [address] Chas Wilkinson PA-C [address] [place] [address] 4 1:00 PM EST Nurse Only Hematology/Onc ology Treatment, [place] [address] [place], [place] [phone] Marylou, Chair 5 Hem Onc Scenery [address] [place] [address] 4 9:30 AM EST Hospital Encounter [facility], Endoscopy Suite, [facility] 1, [address] [place], [place] [phone] Domingo Garcia DO [address] [place] [address] 4 9:30 AM EST - 4 10:45 AM EST Surgery [facility], Endoscopy Suite, [facility] 1, [address] [place], [place] [phone] Domingo Garcia DO [address] [place], [place] [phone] ESOPHAGOGASTRODUODENOSCOPY (EGD), FLEXIBLE, TRANSORAL, DIAGNOSTIC 5 11:20 AM EST Office Visit [address] [place] [phone] Bell Mcqueen MD [address] [place] [address] [place] [address] Scheduled Procedures Name Priority Associated Diagnoses Date/Ti ar ESOPHAGOGASTRODUODENOSCOPY ( EGD), FLEXIBLE, TRANSORAL, DIAGNOSTIC Recall Stark's esophagus with dysplasia 11/05/2024 9:30 AM EST COLONOSCOPY FLEXIBLE PROXIMA L DIAGNOSTIC Recall Stark's esophagus with dysplasia 11/05/2024 9:30 AM EST Health Maintenance Due Date Last Done Comments Adult Wellness Visit 2003 Depression Screening 07/12/2021 07/12/2020 CKD PHOS USE SMARTSET 79855 08/21/2022 10/0 02/2021, 07/12/2020, 03/13/2019, Additional history exists *BISPHONATE OR OTHER ACCEPTABLE MEDICATION NEEDED FOR OSTEOPOROSIS (REFER TO SMARTSET #1146) 10/14/2023 Albumin/Creatinine Ratio 04/22/2024 023, 05/24/2022, 03/26/2022, Additional history exists Stark's Esophagus Surveilance 02/26/2025 02/26/2022, 02/26/2022, 07/04/2021, Additional history exists DXA Scan 07/05/2025 07/05/2023, 10/19, 11/04/2018, Additional history exists CKD HGB USE SMARTSET 42826 08/19/202508/19, 08/19/2024, 08/04/2024, Additional history exists TSH 08/19/2025 08/19/2024, 07/19, 01/21/2024, Additional history exists DTap/Tdap Vaccines (2 - Td or Tdap) 08/19/2027 08/19/2017, 08/20/2008 Pneumococcal Vaccine: 65+ Years Completed 06/23/2015, 05/14/2013, 04/18/2004 Zoster Vaccines Completed 12/02/2020, 08/15/2020 VITAMIN D LEVEL ONCE IN A LIFETIME-USE SMARTSET# [id number] Completed 04/22/2023, 08/28/2021, 07/14/2015 COVID-19 Vaccine Completed [...] this encounter Medical Devices Implanted Type Area Cook Specialty Device Identifier Shelf Expiration Date Model / Serial / Lot Power Port 8fr Sngl Lumen Plas - [id number] Implanted:Qty: 1 on 02/22/2022 at [facility] : PERIPHERAL VASCULAR [id number] 02/15/2023 [id number] / / [id number] documented as of this encounter Procedures Procedure Name Priority Date/Time Associated Diagnosis Comments CARDIOLOGY SCANNED RESULT 08/25/2024 documented in this encounter Results * CARDIOLOGY SCANNED RESULT (08/25/2024) 08/25/2024 Andres Rainey MD OTHER documented in this encounter Advance Directives * Full Code (Latest Code Status on File) Date Activated Date Inactivated Comments 09/03/2007 7:29 AM 09/03/2007 4:02 PM Care Teams Financial Aid Manager Relationship Specialty Start Date End Date Bell Mcqueen MD [address] [place] [address] [place] [phone] PCP - General Family Medicine 06/24/24 documented as of this encounter
--- OUTSIDE RECORDS SUMMARY | 2024-09-02 11:46 | External Medical Summary | Summary of Care ---
Author Name Unknown Organization [facility] [address] [facility] [address] Phone [phone] Care Team Providers Care Finish Off Operator Name Role Phone Bell Mcqueen MD Primary Care Provide r Reason for Visit * Reason Comments Hospital Follow-Up [facility] 08/08-08/11/24. S un downer's worse at night. Sleeps most of the day. Weight has been steady- 135-136lbs. Edema ongoing on right leg and left leg is better regarding wound. Cold all the time. SOB no worse then prior. Denies chest pain, palpitations and dizziness. Encounter Details Date Type Department Care Team (Latest Contact Info) Description 08/25/2024 12:00 PM EDT Office Visit Cardiology [address] [place] [address] Chas Wilkinson PA-C [address] [place] [address] Hospital discharge follow-up*; Encounter for monitoring diuretic therapy; Heart failure, diastolic, with acute decompensation (HCC); Chronic diastolic heart failure due to valvular disease (HCC); Dyslipidemia, goal LDL below 70; H/O mitral valve repair; S/P AVR (aortic valve replacement) Allergies Active Allergy Reactions Criticality Noted Date [...] albuterol 120 mL 5 11/21/2022 Active Ipratropium [place] 0.02 % Inhalation Solution (Atrovent)Indicatio ns:Moderate persistent [...] Respimat 2.5 MCG/ACT Inhalation Aerosol Solution (Tiotropium [place] Monohydrate)Indicat ions:Moderate persistent asthma without complication INHALE 2 PUFFS BY MOUTH EVERY DAY 12 g 3 07/28/2024 Active ProAir HFA 108 (90 Base) MCG/ACT Inhalation Aerosol SolutionIndications :Moderate persistent asthma with exacerbation Inhale 2 Puffs by mouth every 4 hours as needed for Wheezing. 8.5 g 2 07/29/2024 Active Fluticasone Propionate 50 MCG/ACT Nasal Suspension (Flonase)Indication s:Acute cough Administer 1 [place] into each nostril 2 times a day. [...] rinse after steroid. Test performed by Sameer SPRINKLER REPAIR TECHNICIAN CPFT Pleural plaque due to asbestos exposure Restrictive lung disease Overview: In Check dial performed to assess inhaler technique: 12/15/19 Name of inhalers Albuterol Pass: Yes at 60 L/min and Advair Pass: Yes at 60 L/min. Encouraged to to take deep breath, use aero chamber, and rinse after steroid. 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 Overview: [place] C0-M6 documented as of this encounter (statuses [...] mRNA, LNP-s, No Pre serve, 2-Dose Series (Write[employer]my) 12/01/2021,01/16/2021,12/26/2020 COVID-19, LNP-s, No Preserve , Ozzy-sucrose, Ages 12+ (Write.my) 12/01/2021 COVID-19, MRNA-LNP, 23-24, P F, 30 MCG/0.3 mL, 12 YRS AND ABOVE, IM ([employer]) 09/18/2023 COVID-19, MRNA-LNP, 24-25, P R, 30MCG/0.3ML, IM, 12YRS AND ABOVE ([employer]) 08/20/2024 Covid-19, Mrna, Lnp-s, Pf, B ivalent, 30 Mcg, IM, 12 yrs and above ([employer]) 10/09/2022 Pneumococcal Conjugate Vacc, 13 Valent (Prevnar) [...] Sign Reading Time Taken Comments Blood Pressure 106/56 08/25/2024 11:44 AM EDT Pulse 68 08/25/2024 11:44 AM EDT Temperature - - Respiratory Rate 16 08/25/2024 11:4 4 AM EDT Oxygen Saturation - - Inhaled Oxygen Concentration - - Weight 63.8 kg (140 lb 11.2 oz) 024 11:44 AM EDT Height - - Body Mass Index 24.92 06/01/2024 9:58 AM EDT documented in this encounter Progress Notes * Chas Wilkinson PA-C - 08/25/2024 11:57 AM EDT History of Present Illness: Patrick Robles is a 89-year-old male who presents today for hospital discharge follow-up. Patient admitted to [facility] August 08, 2024 to August 11, 2024, presenting with acute onset confusion, hematuria, anemia, and volume overload in part attributed to acute decompensated diastolic congestive heart failure secondary to valvular heart disease,in the setting of chronic kidney disease, and noncompliance with sodium as well as diuretic therapy. Patient received IV furosemide with improvement then transitioned to torsemide 10 mg/day along with spironolactone 12.5 mg/day prior to discharge. Supplemental potassium was added by Nephrology. Following hospitalization patient initially did well however over the past few days has observed worsening abdominal bloating/distention without penile/scrotal edema, worsening right greater than left lower extremity peripheral edema, weight gain of approximately 3-4 lb. notes not cooking with sodium though using salt substitute. Dietary indiscretion noted with patient eating bologna, a hoagie, and hot dogs recently. Trazodone prescribed following discharge, initially working well though no longer. notes sleeping continuously throughout the day, ing in the evening. Daughters have been staying at night. Also notes an abnormal TSH post discharge, levothyroxine dosing increased from 125 mcg/day to 150 mcg/day. No chest pain. No palpitations. No PND. No dizziness since therapy for vertigo. No syncope. No fevers or chills. Problem List: Valvular heart disease, status post aortic valve replacement and mitral valve repair, 2003, with [place] aortic valve bioprosthesis and a 28 mm [place] mitral valve annular ring. 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 Hyperlipidemia. Chronic arthritic disease, chronic prednisone suppression. Complicated shoulder surgery, September 2014, with bleeding and subsequent hypercoagulable state with pulmonary embolus. 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 Status post partial colectomy, 08/08/2015. Chronic anemia receiving iron infusions Bladder carcinoma, Keytruda last received in 04/2023, thereafter discontinued due to concern for myocarditis Hypothyroidism. 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 [place] C0-M6 Benign neoplasm of colon 03/09/2002 Benign neoplasm of colon 09/21/2009 2 tubular adenomas removed BPH without obstruction/lower urinary tract symptoms 01/2006 Dr Goodwin Calcifying tendinitis of shoulder 10/03/2000 Cardiac pacemaker in situ 10/01/2017 Cataract 06/2012 [place] Cellulitis of leg, left 05/18/2024 Seen in [facility] ER for cellulitis and altered mental status, given doxycyycline Cholelithiases COVID-19 10/25/2020 [facility] Diastolic CHF with preserved left ventricular function, NYHA class 4 (HCC) 08/08/2024 [facility] DIASTOLIC DYSFUNCTION 11/22/2004 GRADE II Diverticulosis of colon Dyslipidemia, goal LDL below 70 Epididymitis 03/31/2024 admitted [facility] Fractured rib 09/25/2022 fractures of right 6-10 Generalized osteoarthritis Herniated nucleus pulposus, L4-5 right Hiatal hernia Hx of pulmonary embolus Hypertensive heart disease 11/22/2004 mild concentric lvh on stress echo 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) Left ventricular diastolic dysfunction, NYHA class 1 Grade I impaired relaxation Long-segment Stark's esophagus 07/28/2020 [place] C0-M5 Malignant neoplasm of prostate (HCC) 09/23/2008 Farhad grade 3 Malignant neoplasm of sigmoid colon (HCC) [address] ham at [place] Moderate persistent asthma without complication Norovirus 04/05/2024 Paroxysmal SVT (supraventricular tachycardia) (HCC) 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 Dillard ARTHROPLASTY KNEE TOTAL Left 05/09/2017 Dr Bautista [facility] BIOPSY OF PROSTATE 09/23/2008 Dr [...] DIAGNOSTIC (RECTUM) 06/02/2015 TA polyp, referred to surgery/[facility] COLONOSCOPY, DIAGNOSTIC (RECTUM) 06/09/2018 normal/[facility] COLONOSCOPY, REMOVE LESION, CAUTERY 09/21/2009 [...] 60% LVH EGD, FLEXIBLE, DIAGNOSTIC 06/02/2015 mild gastritis/[facility] EGD, FLEXIBLE, DIAGNOSTIC 06/09/2018 [place], hiatal hernia, gastric polyp, repeat 1 yr/[facility] EGD, FLEXIBLE, DIAGNOSTIC 07/07/2019 [place] / [facility] EGD, FLEXIBLE, DIAGNOSTIC N/A 12/01/2019 ESOPHAGOGASTRODUODENOSCOPY (EGD), FLEXIBLE, TRANSORAL, DIAGNOSTIC performed by Domingo Garcia DO at [facility] EGD, FLEXIBLE, DIAGNOSTIC N/A 03/14/2020 Partially treated Stark's stage C0-M9 per [place] Criteria Multiple gastric polyps, performed by Domingo Garcia DO at [facility] EGD, FLEXIBLE, DIAGNOSTIC N/A 05/25/2020 6 cm [place] C0-M6 [place]ts lower esophagus, with radiofrequency ablation, performed by Domingo Garcia DO at [facility] EGD, FLEXIBLE, DIAGNOSTIC N/A 07/28/2020 long segment Stark's [place] C0-M5, with nodlule at 31 cm, performed by Domingo Garcia DO at [facility] EGD, FLEXIBLE, DIAGNOSTIC N/A 09/28/2020 C0-M1 [place], gastric polyps, 3 cm hiatal hernia, performed by Domingo Garcia DO at [facility] EGD, FLEXIBLE, DIAGNOSTIC N/A 11/30/2020 residual Stark's, performed by Domingo Garcia DO at [facility] EGD, FLEXIBLE, DIAGNOSTIC N/A 01/31/2021 residual Stark's EGD, FLEXIBLE, DIAGNOSTIC N/A 01/31/2021 ESOPHAGOGASTRODUODENOSCOPY (EGD), FLEXIBLE, TRANSORAL, DIAGNOSTIC performed by Domingo Garcia DO at [facility] EGD, FLEXIBLE, DIAGNOSTIC N/A 07/04/2021 ESOPHAGOGASTRODUODENOSCOPY (EGD), FLEXIBLE, TRANSORAL, DIAGNOSTIC performed by Domingo Garcia DO at [facility] EGD, FLEXIBLE, DIAGNOSTIC 02/26/2022 short segment Stark's at 31 cm, GE flap Hill Grade IV, 4 cm hiatal hernia EGD, FLEXIBLE, DIAGNOSTIC N/A 02/26/2022 ESOPHAGOGASTRODUODENOSCOPY (EGD), FLEXIBLE, TRANSORAL, DIAGNOSTIC performed by Domingo Garcia DO at [facility] EGD, FLEXIBLE, LESION ABLATION N/A 07/04/2021 2 cm hiatal hernia, Ablation of [place] C0-M1 Stark's, multiple fundic gland polyps ELECTROPHYSIOLOGIC [...] DDD NM BONE SCAN WHOLEBODY 10/06/2008 METs, [facility] [place] HEPATOBILIARY SYSTEM WITH PHARMACOLOGIC INTERVENTION N/A 11/20/2016 no cystic duct obstruction PARTIAL REMOVAL OF COLON 04/21/2002 for tubulovillous adenoma, Dr Beasley at [facility] PARTIAL REMOVAL OF COLON 08/08/2015 right colectomy 08/08/2015 dr. de leon [facility] REMOVE CATARACT, INSERT LENS PROSTH [...] Right is 70-99% with plaque, left <50% Family History Problem Relation Name Age of Onset Arthritis Mother Other (cataract) Mother Heart Disorder Father [place] in his 50's Diabetes Brother Cancer Brother [...] Narrative Used to spend the winter in [place]. In 2018 they are doing a [employer] cruise for 15 days. Social Determinants of [...] on file Housing Stability: Not on file Complete Review of Systems is as stated above, negative, or noncontributory. Review of patient's allergies indicates: Allergen Reactions Penicillins Other (Please comment) and Rash Eyes swell Pollen Wound Dressing Adhesive Rash Patient reported Zyprexa [Olanzapine] Neuro complications (Please comment) Current Outpatient Medications Medication Sig Dispense Refill CO Q10 100 MG PO TABS 1 tab once daily Polyethylene Glycol 3350 17 GM Oral Packet Take 1 Packet by mouth in the morning. 14 Each 0 Vitamin B12 500 MCG Oral Tablet 2 tabs daily 180 Tab 1 Vitamin D 25 MCG (1000 UT) Oral Tablet Take 1 Tablet by mouth in the morning. predniSONE 5 MG Oral Tablet (Deltasone) TAKE 1 TABLET BY MOUTH EVERY DAY 90 Tablet 2 Ferrous Sulfate 325 (65 Fe) MG Oral Tablet (Feosol) TAKE ONE TABLET BY MOUTH WITH FOOD DAILY 90 Tablet 3 Warfarin Sodium 5 MG Oral Tablet (Coumadin) TAKE 0.5-1 TABLETS BY MOUTH EVERY EVENING. OR TAKE INSTRUCTED BY [facility] 90 Tablet 3 Tamsulosin HCl [...] Respimat 2.5 MCG/ACT Inhalation Aerosol Solution (Tiotropium [place] Monohydrate) INHALE 2 PUFFS BY MOUTH EVERY DAY 12 g 3 ProAir HFA 108 (90 Base) MCG/ACT Inhalation Aerosol Solution Inhale 2 Puffs by mouth every 4 hours as needed for Wheezing. 8.5 g 2 Fluticasone Propionate 50 MCG/ACT Nasal Suspension (Flonase) Administer 1 [place] into each nostril 2times a day. 16 [...] to breakfast orother meds) 90 Tablet 1 ZOVIRAX 5 % EX OINT 5 times daily as needed. One-A-Day Mens 50+ Advantage Oral Tablet Take 1 Tablet by mouth daily. Albuterol Sulfate (2.5 MG/3ML) 0.083% Inhalation Nebulization Solution (Proventil) Inhale 1 Vial via nebulizer every 6 hours as needed for Wheezing. Mix with albuterol 120 mL 5 Ipratropium [place] 0.02 % Inhalation Solution (Atrovent) Inhale 2.5 mL via nebulizer in the morning and 2.5 mL at noon and 2.5 mL in the evening and 2.5 mL before bedtime. Mix with albuterol solution. 75 mL 12 Benzonatate 100 MG Oral Capsule (Tessalon Perles) Take 1 Capsule by mouth 3 times a day as needed for Cough. No current facility-administered medications for this visit. OBJECTIVE/PHYSICAL EXAMINATION: BP 106/56 | Pulse 68 | Resp 16 | Wt 63.8 kg (140 lb 11.2 oz) | BMI 24.92 kg/m | BSA 1.68 m General: Alert, cooperative. Hard of hearing Eyes: PER. Conjunctiva pink, sclera clear. HENT: Normocephalic. Atraumatic. Nystagmus. No significant cerumen Neck: + Carotid bruits. +JVD Heart: Regular. Paced. + Systolic murmur. + Diastolic murmur. No rub. Lungs: Diminished. Decrease. Clear. No wheeze. Abdomen: +BS. Soft. Less distended Extremities: 1-2+ right greater than left lower extremity edema. No clubbing. No cyanosis Pulses: radial=2/4, posterior tibial=0/4. Limited neurological examination: No focal deficit. Data: June 04, 2023 TTE Interpretation Summary (as per Dr. Meredith): Compared to the report of the priorstudy dated 09/13/22, there has been no significant change. The qualitative LV ejection fraction is55-59% (normal). The left atrium is severely enlarged. There is an aortic valve bioprosthetic present. Mild intravalvular aortic regurgitation is present. Aortic valve prosthesis stenosis is absent. There is evidence of prior mitral valve repair and annuloplasty ring. Moderate mitral stenosis is present. Mild mitral regurgitation is present. Mild tricuspid regurgitation is present. Mild pulmonaryhypertension is present. The estimated pulmonary artery systolic pressure is 44 mm Hg. The aortic root is mildly enlarged. 4.2 cm. The proximal ascending thoracic aorta is mildly enlarged, 3.9 cm. Pacemaker interrogation today, August 25, 2024 demonstrated appropriate function, 4.5 years remaining longevity. Mode VVIR, chronic atrial fibrillation. Histograms show acceptably controlled ventricular rates. IMPRESSION: Complex 89-year-old male presenting today for hospital discharge follow-up, unfortunately with evidence of acute decompensated diastolic congestive heart failure. Options of management discussed. Recommend restriction of fluids to 1.8 L/day and restriction of sodium to less than 2,000 mg/day. Torsemide dosing will be increased from 10 mg/day to 20 mg/day. Spironolactone and supplemental potassium will be continued as prescribed for now. Metabolic panel requested, repeated weekly until advised otherwise. Cardiology follow-up in 2 weeks. Patient to follow-up with PCP regarding sleepissues and confusion; possible adverse effects of trazodone discussed. ER with emergencies. Chas Wilkinson PA-C Department of Cardiology I spent a total of 40-54 minutes (exact time 40 mins) on the date of service in preparation, delivery, and documentation of the care provided to Patrick Robles excluding any time spent in the performance of separately billed services. This visit involved medical care services related to at least oneserious condition or complex condition requiring ongoing care. This chart was completed in part util [employer] Speech Voice Recognition Software. Grammatical errors, random word insertions, prounoun errors, and incomplete sentences are an occasional consequence of this system due to software limitations, ambient noise, and hardware issues. Any formal questions or concerns about the content, text, or information contained within the body of this dictation should be directly addressed to the provider for clarification. documented in this encounter Nursing Notes * Odilon Beatty LPN - 08/25/2024 11:43 AM EDT Patient identified by full name and date of Chief Complaint Patient presents with Hospital Follow-Up [facility] 08/08-08/11/24. Sun downer's worse at night. Sleeps most of the day. Weight has been steady- 135-136lbs. Edema ongoing on right leg and left leg is better regarding wound. Cold all the time. SOB no worse then prior. Denies chest pain, palpitations and dizziness. Examination Room: 3 Name: Patrick Robles Date of : (1935). Reason for Visit: HD follow up Interim Hospitalization(s): [facility] 08/08-08/11/24 Problems/Concerns: See chief complaint Chest Pain/SOB: See chief complaint [facility] Discussed: Not applicable [facility] a way you can [...] Department Care Team (Latest Contact Info) Description 1:15 PM EDT Office Visit Hematology/Onc ology State [facility] [address] [phone] Ramon Cadet MD [address] [address] 4 1:45 PM EDT Hem/Onc Treatment Hematology/Onc ology Treatment, [place] [address] [facility] [phone] 4 6:30 AM EDT Anticoagulation [facility], Angela Giles [address] [place] [address] [place] [address] [facility], [address] [place] [address] 4 2:00 PM EDT Office Visit Cardiology, [facility] [address] [place] [address] Chas Wilkinson PA-Raymon [address] [place] [address] 4 1:00 PM EST Nurse Only Hematology/Onc ology Treatment, [address] [place] [phone] Marylou, Chair 5 Hem Onc [address] [address] 4 9:30 AM EST Hospital Encounter [facility], Endoscopy Suite, [facility], [address] [place] [address] Domingo Garcia DO [address] [place] [facility] [address] 4 9:30 AM EST - 4 10:45 AM EST Surgery END[facility], Endoscopy Suite, [facility], [address] [place], [place] [id number] Domingo Garcia DO [address] [facility], [place] [id number] ESOPHAGOGASTRODUODENOSCOPY (EGD), FLEXIBLE, TRANSORAL, DIAGNOSTIC 5 11:20 AM EST Office Visit [address] [phone] Bell Mcqueen MD [address] [place] [address] [place] [address] Scheduled Orders Name Type Priority Associated Diagnoses Orde r Schedule BASIC METABOLIC PANEL Lab Routine Encounter for monitoring diuretic therapy Heart failure, diastolic, with acute decompensation (HCC) Expected: 08/25/2024, Expires: 08/25/2025 BASIC METABOLIC PANEL Lab Routine Encounter for monitoring diuretic therapy Heart failure, diastolic, with acute decompensation (HCC) Every Week for 6 Occurrences starting 08/25/2024 until 08/25/2025 Scheduled Procedures Name Priority Associated Diagnoses Date/Ti me ESOPHAGOGASTRODUODENOSCOPY ( EGD), FLEXIBLE, TRANSORAL, DIAGNOSTIC Recall Stark's esophagus with dysplasia 11/05/2024 9:30 AM EST COLONOSCOPY FLEXIBLE PROXIMA L DIAGNOSTIC Recall Stark's esophagus with dysplasia 11/05/2024 9:30 AM EST Health Maintenance Due Date Last Done Comments Adult Wellness Visit 2003 Depression Screening 07/12/2021 07/12/2020 CKD PHOS USE SMARTSET 34742 08/21/2022 10/0 02/2021, 07/12/2020, 03/13/2019, Additional history exists *BISPHONATE OR OTHER ACCEPTABLE MEDICATION NEEDED FOR OSTEOPOROSIS (REFER TO SMARTSET #1146) 10/14/2023 Albumin/Creatinine Ratio 04/22/2024 023, 05/24/2022, 03/26/2022, Additional history exists Stark's Esophagus Surveilance 02/26/2025 02/26/2022, 02/26/2022, 07/04/2021, Additional history exists DXA Scan 07/05/2025 07/05/2023, 10/19, 11/04/2018, Additional history exists CKD HGB USE SMARTSET 58157 08/19/202508/19, 08/19/2024, 08/04/2024, Additional history exists TSH 08/19/2025 08/19/2024, 07/19, 01/21/2024, Additional history exists DTap/Tdap Vaccines (2 - Td or Tdap) 08/19/2027 08/19/2017, 08/20/2008 Pneumococcal Vaccine: 65+ Years Completed 06/23/2015, 05/14/2013, 04/18/2004 Zoster Vaccines Completed 12/02/2020, 08/15/2020 VITAMIN D LEVEL ONCE IN A LIFETIME-USE SMARTSET# [id number] Completed 04/22/2023, 08/28/2021, 07/14/2015 COVID-19 Vaccine Completed [...] this encounter Medical Devices Implanted Type Area Contract Agent Device Identifier Shelf Expiration Date Model / Serial / Lot Power Port 8fr Sngl Lumen Plas - [id number] Implanted:Qty: 1 on 02/22/2022 at [facility] : PERIPHERAL VASCULAR [id number] 02/15/2023 [id number] / / [id number] documented as of this encounter Visit Diagnoses Diagnosis Hospital discharge follow-up- Primary Other follow-up examination Encounter for monitoring diuretic therapy Encounter for therapeutic drug monitoring Heart failure, diastolic, with acute decompensation (HCC) Acute on chronic diastolic heart failure Chronic diastolic heart failure due to valvular disease (HCC) Dyslipidemia, goal LDL below 70 Other and unspecified hyperlipidemia H/O mitral valve repair Personal history of surgery to heart and great vessels, presenting hazards to health S/P AVR (aortic valve replacement) Heart valve replaced by other means Stark's esophagus with dysplasia Stark's esophagus documented in this encounter Advance Directives * Full Code (Latest Code Status on File) Date Activated Date Inactivated Comments 09/03/2007 7:29 AM 09/03/2007 4:02 PM Care Teams Finish Off Operator Relationship Specialty Start Date End Date Bell Mcquene MD [address] [place] [address] [place] [phone] PCP - General Family Medicine 06/24/24 documented as of this encounter"
--- OUTSIDE RECORDS SUMMARY | 2024-09-02 11:47 | External Medical Summary ---
Author Name Unknown Address Unknown Organization K01:[facility] [address] [place] [address] Laboratory Report Ordering Provider Test Date Status ROB AMBRIZ 08/19/2024 10:00:38 Final Observation Date Value Abnormality Reference (Units ) Status T4, Free 08/19/2024 10:00:38 1.2 0.9-1.7 (n g/dL) Final Performing Location [facility] [address] [place] [address]
--- OUTSIDE RECORDS SUMMARY | 2024-09-02 11:47 | External Medical Summary ---
Author Name Unknown Address Unknown Organization K01:[facility] [address] [place] [address] Laboratory Report Ordering Provider Test Date Status LENI WARD 08/19/2024 10:00:38 Final Observation Date Value Abnormality Reference (Units ) Status Vitamin B12 08/19/2024 10:00:38 [phone] (pg/mL) Final Performing Location [facility] [address] [place] [address]
--- OUTSIDE RECORDS SUMMARY | 2024-09-02 11:47 | External Medical Summary ---
Author Name Unknown Address Unknown Organization [id number]:[facility] [place] [address] [place], [place] [address] Laboratory Report Ordering Provider Test Date Status ROB AMBRIZ 08/19/2024 10:00:38 Final Observation Date Value Abnormality Reference (Units ) Status TSH 08/19/2024 10:00:38 16.60 Above high normal 0. 27-4.20 (uIU/mL) Final Performing Location [facility] [place] [address] [place], [place] [address]
--- OUTSIDE RECORDS SUMMARY | 2024-09-02 11:47 | External Medical Summary ---
Author Name Unknown Address Unknown Organization K09:[facility] [address] [place] [address] Laboratory Report Ordering Provider Test Date Status ADRIENNE SALCIDO 08/19/2024 10:00:38 Final Observation Date Value Abnormality Reference (Units ) Status SYNC LEUKOCYTES IN BLOOD BY AUTOMATED COUNT 08/19/2024 10:00:38 5.58 4.00-10.80 (K/uL) Final Segs 08/19/2024 10:00:38 73.8 40.0-75.0 (%) Final Lymphs % 08/19/2024 10:00:38 12.4 Below low normal 18.0-42.0 (%) Final Monos 08/19/2024 10:00:38 11.3 Above high normal 1.0-11.0 (%) Final Eosinophils 08/19/2024 10:00:38 1.8 0.0-6.0 (%) Final Basos 08/19/2024 10:00:38 0.7 0.0-2.0 (%) Final Absolute Segs 08/19/2024 10:00:38 4.12 1.80-7.70 (K/uL) Final Lymphs, absolute 08/19/2024 10:00:38 0.69 Below low normal 1.00-4.80 (K/ul) Final Monos, Abs 08/19/2024 10:00:38 0.63 0.00-1.10 (K/uL) Final Eos, Abs 08/19/2024 10:00:38 0.10 0.00-0.70 (K/uL) Final Basos, Abs 08/19/2024 10:00:38 0.04 0.00-0.20 (K/uL) Final Performing Location [facility] [address] [place] [address]
--- OUTSIDE RECORDS SUMMARY | 2024-09-02 11:47 | External Medical Summary ---
Author Name Unknown Address Unknown Organization K09:[facility]ATORY [place] [address] Laboratory Report Ordering Provider Test Date Status ADRIENNE SALCIDO 08/19/2024 10:00:38 Final Observation Date Value Abnormality Reference (Units ) Status Nucleated erythrocytes/100 leukocytes [Ratio] in Blood by Automated count 08/19/2024 10:00:38 Final Acanthocytes [Presence] in Blood by Light microscopy 08/19/2024 10:00:38 Moderate Abnormal None Seen Final Ovalocytes [Presence] in Blood by Light microscopy 08/19/2024 10:00:38 Moderate Abnormal None Seen Final Schistocytes 08/19/2024 10:00:38 Few Abnormal None Seen Final Performing Location [facility] [place] [address]
--- OUTSIDE RECORDS SUMMARY | 2024-09-02 11:47 | External Medical Summary ---
Author Name Unknown Address Unknown Organization K01:[facility] [place] [address] [place] [address] Laboratory Report Ordering Provider Test Date Status LENI WARD 08/19/2024 10:00:38 Final Observation Date Value Abnormality Reference (Units ) Status Folic Acid 08/19/2024 10:00:38 6.5 >4.5 (ng/ mL) Final Performing Location [facility]AT[facility] - [address] [place] [address]
--- OUTSIDE RECORDS SUMMARY | 2024-09-02 11:47 | External Medical Summary ---
Author Name Unknown Address Unknown Organization K09:[facility] [place] [address] Laboratory Report Ordering Provider Test Date Status ADRIENNE SALCIDO 08/19/2024 10:00:38 Final Observation Date Value Abnormality Reference (Units ) Status WBC, Total 08/19/2024 10:00:38 5.58 4.00-10.8 0 (K/uL) Final RBC 08/19/2024 10:00:38 3.04 4.50-5.25 (M/uL) Final Hemoglobin 08/19/2024 10:00:38 8.0 Below low normal 14 .0-16.8 (g/dL) Final HCT 08/19/2024 10:00:38 29.0 Below low normal 40. 0-48.4 (%) Final MCV 08/19/2024 10:00:38 95.4 82.0-99.5 (fL) Final MCH 08/19/2024 10:00:38 26.3 27.0-34.0 (pg) Final MCHC 08/19/2024 10:00:38 27.6 32.0-36.0 (g/dL) Final RDW 08/19/2024 10:00:38 18.4 11.5-15.5 (%) Final Platelets 08/19/2024 10:00:38 132 Below low normal 140 -400 (K/uL) Final MPV 08/19/2024 10:00:38 11.0 6.6-11.1 ( fL) Final Performing Location [facility] [place] [address]
--- OUTSIDE RECORDS SUMMARY | 2024-09-02 11:47 | External Medical Summary ---
Author Name Unknown Address Unknown Organization K01:LABORATORY [facility] - [address] [place] [address] Laboratory Report Ordering Provider Test Date Status LENI WARD 08/19/2024 10:00:38 Final Observation Date Value Abnormality Reference (Units ) Status Iron 08/19/2024 10:00:38 114 45-176 (ug /dL) Final Iron-binding capacity 08/19/2024 10:00:38 348 250-425 (ug/dL) Final Transferrin Sat % 08/19/2024 10:00:38 33 15 -55 (%) Final Performing Location LABORATORY [facility] - [address] [place] [address]
--- OUTSIDE RECORDS SUMMARY | 2024-09-02 11:47 | External Medical Summary | Summary of Care ---
Author Name Unknown Organization [facility] Address [address] [place] [address] Phone [phone] Care Team Providers Care Teacher Associate Name Role Phone Bell Mcqueen MD Primary Care Provide r Encounter Details Date Type Department Care Team (Late st Contact Info) Description 08/18/2024 Result Scan Unspecified Department Tammie Scruggs, [facility] [address] [place] [address] <No scans attached> Allergies Active Allergy Reactions Criticality Noted Date Comments Penicillins Other (Please comment),Rash High Eyes swell Pollen 05/03/2022 Wound Dressing Adhesive Rash 05/02/2023 Patient reported Olanzapine Neuro complications (Please comment) 04/09/2024 documented as of this encounter (statuses as of 08/18/2024) Medications Medication Sig Dispensed Refills Start Date [...] albuterol 120 mL 5 11/21/2022 Active Ipratropium [place] 0.02 % Inhalation Solution (Atrovent)Indicatio ns:Moderate persistent [...] EVERY EVENING. OR TAKE INSTRUCTED BY THE [facility] 90 Tablet 3 [...] Respimat 2.5 MCG/ACT Inhalation Aerosol Solution (Tiotropium [place] Monohydrate)Indicat ions:Moderate persistent asthma without complication INHALE 2 PUFFS BY MOUTH EVERY DAY 12 g 3 07/28/2024 Active ProAir HFA 108 (90 Base) MCG/ACT Inhalation Aerosol SolutionIndications :Moderate persistent asthma with exacerbation Inhale 2 Puffs by mouth every 4 hours as needed for Wheezing. 8.5 g 2 07/29/2024 Active Fluticasone Propionate 50 MCG/ACT Nasal Suspension (Flonase)Indication s:Acute cough Administer 1 [place] into each nostril 2 times a day. [...] as of this encounter (statuses as of 08/18/2024) Active Problems Problem Noted Date Diagnosed Date [...] rinse after steroid. 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 Encouraged to to take deep breath, use aero chamber, and rinse after steroid. 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 Hx of pulmonary embolus Stark's esophagus determined by endoscopy Overview: [place] C0-M6 documented as of this encounter (statuses as of 08/18/2024) Resolved Problems Problem Noted Date Diagnosed Date [...] as of this encounter (statuses as of 08/18/2024) Immunizations Name Administration Dates Next Due COVID-19 mRNA, LNP-s, No Pre serve, 2-Dose Series ([employer] 12/01/2021,01/16/2021,12/26/2020 COVID-19, LNP-s, No Preserve , Ozzy-sucrose, Ages 12+ (Pfizer) 12/01/2021 COVID-19, MRNA-LNP, 23-24, P F, 30 MCG/0.3 mL, 12 YRS AND ABOVE, IM (PFIZER-Comirnat) 09/18/2023 Covid-19, Mrna, Lnp-s, Pf, B ivalent, [...] Care Team (Latest Contact Info) Description 4 6:30 AM EDT Anticoagulation Centralized Clinical [facility] Services, Angela Giles [address] [place] [address] [place] [address] [facility], [address] [place] [address] 4 10:30 AM EDT Immunization/Inject ion Hematology/Onc ology Treatment, [place] [address] [facility] [place] [phone] 4 9:40 AM EDT Office Visit Family Medicine [address] [place] [phone] Juancho Romero MD [address] [place] [address] [place] [address] 4 8:40 AM EDT Office Visit Rheumatology [address] [place] [phone] Win Nielsen MD [facility] [place] [address] 4 10:30 AM EDT Laboratory Laboratory [address] [place] [phone] [facility] [address] [place] [address] 4 11:30 AM EDT Cardiac Studies Cardiology [address] [place] [address] [facility] [address] [place] [address] 4 12:00 PM EDT Office Visit Cardiology [address] [place] [address] Chas Wilkinson PA-C [address] [place] [address] 4 1:15 PM EDT Office Visit Hematology/Onc ology [facility] [address] [place] [phone] Ramon Cadet MD [address] [place] [address] 4 1:45 PM EDT Hem/Onc Treatment Hematology/Onc ology Treatment, [place] [address] [place] [phone] 4 9:30 AM EST Hospital Encounter ENDO [facility], Endoscopy Suite, [facility] 1, [address] [place] [address] Domingo Garcia DO [address] [place] [address] 4 9:30 AM EST - 4 10:45 AM EST Surgery ENDO [facility], Endoscopy Suite, [facility], [address] [place] [address] Domingo Garcia DO [address] [place] [address] ESOPHAGOGASTRODUODENOSCOPY (EGD), FLEXIBLE, TRANSORAL, DIAGNOSTIC 5 11:20 AM EST Office Visit Family Medicine [address] [place] [phone] Bell Mcqueen MD [address] [place] [address] [place] [address] Scheduled Procedures Name Priority Associated Diagnoses Date/Ti me ESOPHAGOGASTRODUODENOSCOPY ( EGD), FLEXIBLE, TRANSORAL, DIAGNOSTIC Recall Stark's esophagus with dysplasia 11/05/2024 9:30 AM EST COLONOSCOPY FLEXIBLE PROXIMA L DIAGNOSTIC Recall Stark's esophagus with dysplasia 11/05/2024 9:30 AM EST Health Maintenance Due Date Last Done Comments Adult Wellness Visit 2003 Depression Screening 07/12/2021 07/12/2020 CKD PHOS USE SMARTSET 58296 08/21/2022 10/0 02/2021, 07/12/2020, 03/13/2019, Additional history [...] Additional history exists CKD HGB USE SMARTSET 38958 08/04/202508/04, 08/04/2024, 07/28/2024, Additional history exists DTap/Tdap Vaccines (2 - Td or Tdap) 08/19/2027 08/19/2017, 08/20/2008 Pneumococcal Vaccine: 65+ Years Completed 06/23/2015, 05/14/2013, 04/18/2004 Zoster Vaccines Completed 12/02/2020, 08/15/2020 VITAMIN D LEVEL ONCE IN A LIFETIME-USE SMARTSET# [id number] Completed 04/22/2023, 08/28/2021, 07/14/2015 HPV (Gardasil) Vaccine Aged Out No lo nger eligible based on patient's age to complete this topic Hepatitis B Vaccine Aged Out No longe r eligible based on patient's age to complete this topic MENINGOCOCCAL (MENACTRA/MENVEO) Aged Out No longer eligible based on patient's age to complete this topic documented as of this encounter Medical Devices Implanted Type Area Lamp Mechanic Device Identifier Shelf Expiration Date Model / Serial / Lot Power Port 8fr Sngl Lumen Plas - [id number] Implanted:Qty: 1 on 02/22/2022 at [facility] CR BARD : PERIPHERAL VASCULAR [id number] 02/15/2023 [id number] / / [id number] documented as of this encounter Procedures Procedure Name Priority Date/Time Associated Diagnosis Comments OUTSIDE LAB RESULTS 08/18/2024 documented in this encounter Results * OUTSIDE LAB RESULTS (08/18/2024) 08/18/2024 Tammie Scruggs [facility] LABORATORY documented in this encounter Advance Directives * Full Code (Latest Code Status on File) Date Activated Date Inactivated Comments 09/03/2007 7:29 AM 09/03/2007 4:02 PM Care Teams Teacher Associate Relationship Specialty Start Date End Date Bell Mcqueen MD [address] [place] [address] [place] [address] PCP - General Family Medicine 06/24/24 documented as of this encounter
--- OUTSIDE RECORDS SUMMARY | 2024-09-02 11:47 | External Medical Summary ---
Author Name Unknown Address Unknown Organization K09:LABORATORY [place] [facility] - [address] [place] [address] Laboratory Report Ordering Provider Test Date Status LENI WARD 08/19/2024 10:00:38 Final Observation Date Value Abnormality Reference (Units ) Status BUN 08/19/2024 10:00:38 43 Above high normal 6-20 (mg/dL) Final Creatinine 08/19/2024 10:00:38 1.7 Above high normal 0.6-1.2 (mg/dL) Final Glomerular filtration rate/1.73 sq M.predicted [Volume Rate/Area] in Serum, Plasma or Blood by Creatinine-based formula (CKD-EPI) 08/19/2024 10:00:38 40 Below low normal >=60 (mL/min) Final eGFR is calculated based on the CKD-EPI 2020 equation. Sodium 08/19/2024 10:00:38 136 135-146 (m mol/L) Final Potassium 08/19/2024 10:00:38 4.5 3.5-5.1 (m mol/L) Final Cl 08/19/2024 10:00:38 100 98-107 (mm ol/L) Final CO2 08/19/2024 10:00:38 25 22-32 (mmo l/L) Final Anion gap 08/19/2024 10:00:38 11 7-15 (mmol /L) Final Glucose 08/19/2024 10:00:38 117 70-120 (mg /dL) Final Albumin 08/19/2024 10:00:38 3.7 Below low normal 3.8 -5.0 (g/dL) Final AST (Aspartate aminotransferase) 08/19/2024 10:00:38 21 10-50 (U/L) Fin al Alk Phos 08/19/2024 10:00:38 91 35-130 (U/ L) Final Bilirubin, Total 08/19/2024 10:00:38 1.0 <=1 .2 (mg/dL) Final Calcium 08/19/2024 10:00:38 9.1 8.4-10.2 ( mg/dL) Final Protein 08/19/2024 10:00:38 6.3 6.0-8.3 (g /dL) Final ALT (Alanine aminotransferase) 08/19/2024 10:00:38 9 Below low normal 10-50 (U/L) Final Performing Location [facility] [place] [address] [place] [address]
--- OUTSIDE RECORDS SUMMARY | 2024-09-02 11:47 | External Medical Summary | Summary of Care ---
Author Name Unknown Organization [facility] Address [address] [place] [address] Phone [phone] Care Team Providers Care Payroll Administrator Name Role Phone Bell Mcqueen MD Primary Care Provide r Reason for Visit * Reason Comments Outpatient Testing Encounter Details Date Type Department Care Team (Late st Contact Info) Description 08/19/2024 10:00 AM EDT Laboratory Laboratory [facility] [place] [address] [place] [phone] [facility] [address] [place] [address] Urothelial carcinoma of bladder (HCC); Acquired hypothyroidism; Iron deficiency anemia, unspecified iron deficiency anemia [...] albuterol 120 mL 5 11/21/2022 Active Ipratropium [place] 0.02 % Inhalation Solution (Atrovent)Indicatio ns:Moderate persistent [...] EVERY EVENING. OR TAKE INSTRUCTED BY THE [facility] 90 Tablet 3 [...] Respimat 2.5 MCG/ACT Inhalation Aerosol Solution (Tiotropium [place] Monohydrate)Indicat ions:Moderate persistent asthma without complication INHALE 2 PUFFS BY MOUTH EVERY DAY 12 g 3 07/28/2024 Active ProAir HFA 108 (90 Base) MCG/ACT Inhalation Aerosol SolutionIndications :Moderate persistent asthma with exacerbation Inhale 2 Puffs by mouth every 4 hours as needed for Wheezing. 8.5 g 2 07/29/2024 Active Fluticasone Propionate 50 MCG/ACT Nasal Suspension (Flonase)Indication s:Acute cough Administer 1 [place] into each nostril 2 times a [...] after steroid. Test performed by Sameer APPLICATIONS SPECIALIST CPFT Pleural plaque due to asbestos exposure Restrictive lung disease Overview: In Check dial performed to assess inhaler technique: 12/15/19 Name of inhalers Albuterol Pass: Yes at 60 L/min and Advair Pass: Yes at 60 L/min. Encouraged to to take deep breath, use aero chamber, and rinse after steroid. Test performed by Sameer APPLICATIONS SPECIALIST CPFT Hx of pulmonary embolus Stark's esophagus determined by endoscopy Overview: [place] C0-M6 documented as of this encounter (statuses [...] mRNA, LNP-s, No Pre serve, 2-Dose Series ([employer]) 12/01/2021,01/16/2021,12/26/2020 COVID-19, LNP-s, No Preserve , Ozzy-sucrose, Ages 12+ (Pfizer) 12/01/2021 COVID-19, MRNA-LNP, 23-24, P F, 30 MCG/0.3 mL, 12 YRS AND ABOVE, IM ([facility]) 09/18/2023 Covid-19, Mrna, Lnp-s, Pf, B ivalent, 30 Mcg, IM, 12 yrs and above (Iotum) 10/09/2022 Pneumococcal Conjugate Vacc, 13 Valent (Prevnar) [...] Department Care Team (Latest Contact Info) Description 08/19/2024 10:30 AM EDT Immunization/Inj ection Hematology/Oncol ogy Treatment, [place] [address] [place] [phone] Arrived 08/20/2024 9:40 AM EDT Office Visit Family Medicine [address] [place] [phone] Juancho Romero MD [address] [place] [address] [place] [address] 08/25/2024 10:30 AM EDT Laboratory Laboratory [address] [place] [phone] [facility] Lab [address] [place] [address] 08/25/2024 11:30 AM EDT Cardiac Studies Cardiology [address] [place] [address] [place], [facility] [address] [place] [address] 08/25/2024 12:00 PM EDT Office Visit Cardiology [address] [place] [address] Chas Wilkinson PA-C [address] [place] [address] 08/26/2024 1:15 PM EDT Office [facility] [place] [phone] Ramon Cadet MD 200 [facility] [place] [address] 08/26/2024 1:45 PM EDT Hem/Onc Treatment Hematology/Oncol ogy Treatment, [place] 200 [facility], [place] [phone] 11/05/2024 9:30 AM EST Hospital Encounter [facility] Endoscopy Suite, [facility] 1, [address] [place] [address] Domingo Garcia DO [address] [place] [address] 11/05/2024 9:30 AM EST - 11/05/2024 10:45 AM EST Surgery [facility] Endoscopy Suite, [facility] 1, [address] [place], [place] [phone] Domingo Garcia DO [address] [place], [place] [phone] ESOPHAGOGASTRODUODENOSCOPY (EGD), FLEXIBLE, TRANSORAL, DIAGNOSTIC 01/12/2025 11:20 AM EST Office Visit Family [address] [place] [phone] Bell Mcqueen MD [address] [place] [address] [place] [address] Pending Results Name Type Priority Associated Diagnoses Date /Time CBC WITH WBC DIFFERENTIAL Lab STAT Urothelial carcinoma of bladder (HCC) 08/19/2024 10:00 AM EDT TSH WITH FREE T4 IF INDICATED Lab Routine Acquired hypothyroidism 08/19/2024 10:00 AM EDT COMPREHENSIVE METABOLIC PANEL Lab STAT Iron deficiency anemia, unspecified iron deficiency anemia type 08/19/2024 10:00 AM EDT FERRITIN Lab STAT Iron deficiency anemia, unspecified iron deficiency anemia type 08/19/2024 10:00 AM EDT IRON SCREEN, INCLUDING TIBC Lab STAT Iron deficiency anemia, unspecified iron deficiency anemia type 08/19/2024 10:00 AM EDT FOLIC ACID Lab STAT Iron deficiency anemia, unspecified iron deficiency anemia type 08/19/2024 10:00 AM EDT VITAMIN B12 Lab STAT Iron deficiency anemia, unspecified iron deficiency anemia type 08/19/2024 10:00 AM EDT CBC Lab STAT Urothelial carcinoma of bladder (HCC) 08/19/2024 10:00 AM EDT DIFFERENTIAL, AUTOMATED Lab STAT Urothelial carcinoma of bladder (HCC) 08/19/2024 10:00 AM EDT DIFFERENTIAL, TECHNOLOGIST REVIEW Lab Routine Urothelial carcinoma of bladder (HCC) 08/19/2024 10:00 AM EDT Scheduled Procedures Name Priority Associated Diagnoses Date/Ti me ESOPHAGOGASTRODUODENOSCOPY ( EGD), FLEXIBLE, TRANSORAL, DIAGNOSTIC Recall Stark's esophagus with dysplasia 11/05/2024 9:30 AM EST COLONOSCOPY FLEXIBLE PROXIMA L DIAGNOSTIC Recall Stark's esophagus with dysplasia 11/05/2024 9:30 AM EST Health Maintenance Due Date Last Done Comments Adult Wellness Visit 2003 Depression Screening 07/12/2021 07/12/2020 CKD PHOS USE SMARTSET 33759 08/21/2022 10/0 02/2021, 07/12/2020, 03/13/2019, Additional history exists *BISPHONATE OR OTHER ACCEPTABLE MEDICATION NEEDED FOR OSTEOPOROSIS (REFER TO SMARTSET #1146) 10/14/2023 Albumin/Creatinine Ratio 04/22/20242 023, 05/24/2022, 03/26/2022, Additional history exists COVID-19 Vaccine ( season) 2024 09/18/2023, 09/18/2023, 10/09/2022, Additional history exists Influenza Vaccine (FLU shot) (#1) 2024 07/31/2023, 10/09/2022, 08/17/2021, Additional history exists Stark's Esophagus Surveilance 02/26/2025 02/26/2022, 02/26/2022, 07/04/2021, Additional history exists DXA Scan 07/05/2025 07/05/2023, 12/07/2020, 11/04/2018, Additional history exists TSH 07/28/2025 07/28/2024, 03/0 03/2024, 10/08/2023, Additional history exists CKD HGB USE SMARTSET 30555 08/04/202508/04, 08/04/2024, 07/28/2024, Additional history exists DTap/Tdap Vaccines (2 - Td or Tdap) 08/19/2027 08/19/2017, 08/20/2008 Pneumococcal Vaccine: 65+ Years Completed 06/23/2015, 05/14/2013, 04/18/2004 Zoster Vaccines Completed 12/02/2020, 08/15/2020 VITAMIN D LEVEL ONCE IN A LIFETIME-USE SMARTSET# 33009 Completed 04/22/2023, 08/28/2021, 07/14/2015 HPV (Gardasil) Vaccine Aged Out No lo nger eligible based on patient's age to complete this topic Hepatitis B Vaccine Aged Out No longe r eligible based on patient's age to complete this topic MENINGOCOCCAL (MENACTRA/MENVEO) Aged Out No longer eligible based on patient's age to complete this topic documented as of this encounter Medical Devices Implanted Type Area Airport Tower Controller Device Identifier Shelf Expiration Date Model / Serial / Lot Power Port 8fr Sngl Lumen Plas - [id number] Implanted:Qty: 1 on 02/22/2022 at [facility] CR BARD : PERIPHERAL VASCULAR [id number] 02/15/2023 [id number] / / [id number] documented as of this encounter Visit Diagnoses Diagnosis Urothelial carcinoma of bladder (HCC) Acquired hypothyroidism Unspecified hypothyroidism Iron deficiency anemia, unspecified iron deficiency anemia type Stark's esophagus with dysplasia Stark's esophagus documented in this encounter Advance Directives * Full Code (Latest Code Status on File) Date Activated Date Inactivated Comments 09/03/2007 7:29 AM 09/03/2007 4:02 PM Care Teams Payroll Administrator Relationship Specialty Start Date End Date Bell Mcqueen MD [address] [place] [address] [place] [phone] PCP - General Family Medicine 06/24/24 documented as of this encounter
--- OUTSIDE RECORDS SUMMARY | 2024-09-02 11:47 | External Medical Summary ---
Author Name Unknown Address Unknown Organization K01:LABORATORY C - [address] [place] [address] Laboratory Report Ordering Provider Test Date Status LENI WARD 08/19/2024 10:00:38 Final Observation Date Value Abnormality Reference (Units ) Status Ferritin 08/19/2024 10:00:38 74 30-400 (ng /mL) Final Performing Location [facility] - [address] [place] [address]
--- OUTSIDE RECORDS SUMMARY | 2024-09-02 11:48 | External Medical Summary | Continuity of Care Document ---
Author Name Unknown Organization [facility] [address] [facility] [address] [id number] Care Team Providers Care Fish Fryer Name Role Phone Juancho Romero Primary Care Physician [phone] [id number] Date(s[facility] 08/12/24 - 08/12/24 [facility] [address] [facility] [address] [phone] Discharge Disposition: Home or Self Care Attending [...] for one dose 30 min prior to [facility] appointment, Pharmacy: [facility]/pharmacy #[id number] Start Date: 08/04/24 Status: Ordered levoFLOXacin 750 [...] PO, Daily Start Date: 02/16/19 Status: Ordered Problem List Condition Confirmation Course Effective Dates Status H ealth Status Informant Anemia Confirmed Active Arthritis Confirmed Active Basal cell carcinoma of nose Confirmed Active Environmental allergies Confirmed Active History of heart valve replacement 1 Confirmed Active High cholesterol Confirmed Active Restless leg Confirmed Active Tobacco user Confirmed Active 1cow Procedures Procedure Date Related Diagnosis Body Site [...] yeny Sex Male Sex Representation Male (finding) Patient Care team information Care Team Personnel Name: MD Heather, Juancho Dominguez Position: Referring DIRECT Member Role: Primary Care Provider Address: [address] [place] [address] [place] Care Team Related Persons Name: Pam CARMEN
--- OUTSIDE RECORDS SUMMARY | 2024-09-02 11:48 | External Medical Summary | Summary of Care ---
Author Name Unknown Organization [facility] Address [address] [place] [address] Phone [phone] Care Team Providers Care Fitness Studies Teacher Name Role Phone Bell Mcqueen MD Primary Care Provide r Encounter Details Date Type Department Care Team (Late st Contact Info) Description 08/12/2024 Telephone Access Center, [place] [address] [facility] *DO NOT REMOVE THIS DEPARTMENT* [place] [address] Services, Scheduling [address] [place] [address] Allergies Active Allergy Reactions Criticality Noted Date Comments Penicillins Other (Please comment),Rash High Eyes swell Pollen 05/03/2022 Wound Dressing Adhesive Rash 05/02/2023 Patient reported Olanzapine Neuro complications (Please comment) 04/09/2024 documented as of this encounter (statuses as of 08/12/2024) Medications Medication Sig Dispensed Refills Start Date [...] albuterol 120 mL 5 11/21/2022 Active Ipratropium [place] 0.02 % Inhalation Solution (Atrovent)Indicatio ns:Moderate persistent [...] EVERY EVENING. OR TAKE INSTRU[facility]ED BY [facility] 90 Tablet 3 05/07/2024 [...] Respimat 2.5 MCG/ACT Inhalation Aerosol Solution (Tiotropium [place] Monohydrate)Indicat ions:Moderate persistent asthma without complication INHALE 2 PUFFS BY MOUTH EVERY DAY 12 g 3 07/28/2024 Active ProAir HFA 108 (90 Base) MCG/ACT Inhalation Aerosol SolutionIndications :Moderate persistent asthma with exacerbation Inhale 2 Puffs by mouth every 4 hours as needed for Wheezing. 8.5 g 2 07/29/2024 Active Fluticasone Propionate 50 MCG/ACT Nasal Suspension (Flonase)Indication s:Acute cough Administer 1 [place] into each nostril 2 times a day. 16 mL 1 07/29/2024 Active Torsemide 10 MG Oral Tablet (Demadex) Take 1 Tablet by mouth in the morning. 08/11/2024 Active Potassium Chloride [place] ER 10 MEQ Oral Tablet Extended Release Take 1 Tablet by mouth in the morning. 08/11/2024 Active Magnesium 125 MG Oral Capsule Take 250 mg by mouth daily. Active documented as of this encounter (statuses as of 08/12/2024) Active Problems Problem Noted Date Diagnosed Date [...] rinse after steroid. Test performed by Sameer COKE CRANE OPERATOR CPFT Pleural plaque due to asbestos exposure Restrictive lung disease Overview: In Check dial performed to assess inhaler technique: 12/15/19 Name of inhalers Albuterol Pass: Yes at 60 L/min and Advair Pass: Yes at 60 L/min. Encouraged to to take deep breath, use aero chamber, and rinse after steroid. 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 Overview: Fortine C0-M6 documented as of this encounter (statuses as of 08/12/2024) Resolved Problems Problem Noted Date Diagnosed Date [...] Malignant neoplasm of prostate 09/23/2008 03/27/2018 Overview: [place] grade 3 Atrial flutter 09/02/2007 10/16/2007 Herpes [...] as of this encounter (statuses as of 08/12/2024) Immunizations Name Administration Dates Next Due COVID-19 mRNA, LNP-s, No Pre serve, 2-Dose Series ([employer]) 12/01/2021,01/16/2021,12/26/2020 COVID-19, LNP-s, No Preserve , Ozzy-sucrose, Ages 12+ ([employer]Musica) 12/01/2021 COVID-19, MRNA-LNP, 23-24, P F, 30 MCG/0.3 mL, 12 YRS AND ABOVE, IM (PFIZER-Comirnaty) 09/18/2023 Covid-19, Mrna, Lnp-s, Pf, B ivalent, 30 Mcg, IM, 12 yrs and above (Pfizer) 10/09/2022 Pneumococcal Conjugate Vacc, 13 Valent (Prevnar) 06/23/2015 Pneumococcal Polysaccharide PPV23 (Pneumovax) 05/14/2013,04/18/2004 Seasonal Influenza, High Dos e, Trivalent, PF, IM (Fluzone HD) 09/25/2017 Seasonal Influenza, PF, 6 M & above, IM , (FluLaval or Fluzone) 09/29/2018 Seasonal Influenza, Quadriva lent Hd (Fluzone Hd) 07/31/2023,10/09/2022,08/17/2021 Seasonal Influenza, Quadriva lent, No Preserve, IM 09/24/2017,09/22/2016,09/12/2015 Seasonal Influenza, Recombin ant, RIV4, PF, (Flublock) 08/15/2020 Seasonal Influenza, Trivalen t, (IIV3), with Preserv, (Fluzone) 08/26/2014,09/09/2013,08/15/2012,09/20,08/02/2010,08/31/2009,08/20/2008 ,08/19/2007,08/20/2006,08/22/2005,08/18,09/14/2003 Seasonal Influenza, Trivalen t, Adjuvanted, 65+ YRS, [...] Telephone Encounter - Rosalie Miramontes RN - 08/12/2024 11:35 AM EDT Patient admitted at [facility] 08/08- 08/11 for heart failure, anemia. Most recent hgb 08/10/24: 7.9 Left message for patients - advised that if she wants to reschedule appts to come in sooner than next week to call back; otherwise will leave appts 08/19/24. Scheduling: please adjust patients appts for next week - [facility] "CBCd" - treatment appt 08/19 should only be 15 min appt "retacrit/ ? Port flush if needed" * Telephone Encounter - Genny Llanes OSA - 08/12/2024 10:09 AM EDT FYI centeral sched canceled Does this need to be rescheduled for this week or beg of next? * Telephone Encounter - Day Montes OSA - 08/12/2024 10:02 AM EDT Patient calling to cancel appt for injection on 08/12. Please advise thank you documented in this encounter Plan of Treatment Upcoming Encounters Date Type Department Care Team (Latest Contact Info) Description 4 6:30 AM EDT Anticoagulation Centralized Clinical Pharmacy Services, Angela Giles [address] [place] [address] [place] [address] [place] [address] 4 9:45 AM EDT Nurse Only Hematology/Onc ology Treatment, [address] [phone] 4 10:30 AM EDT Hem/Onc Treatment Hematology/Onc ology Treatment, [address] [phone] 4 9:40 AM EDT Office Visit Family Medicine [address] [place] [phone] Juancho Romero MD [address] [place] [address] [place] [address] 4 8:40 AM EDT Office Visit Rheumatology [address] [place] [phone] Win Nielsen MD [address] [place] [address] [place] [address] 4 10:00 AM EDT Cardiac Studies Cardiology [address] [place] [address] [facility] Pacer [address] [place] [address] 4 10:30 AM EDT Laboratory Laboratory [address] [place] [phone] [facility] [address] [place] [address] 4 1:15 PM EDT Office Visit Hematology/Onc ology [facility] [address] [facility] [place] [phone] Ramon Cadet MD [address] [facility] [place] [address] 4 1:45 PM EDT Hem/Onc Treatment Hematology/Onc ology Treatment, [place] [address] [facility] [place] [phone] 4 9:30 AM EST Hospital Encounter [facility], [facility] 1, [address] [place] [address] Domingo Garcia, [address] [place] [address] 4 9:30 AM EST - 4 10:45 AM EST Surgery [facility] Endoscopy Suite, [facility] 1, [address] [place] [address] Domingo Garcia DO [address] [place], [place] [id number] ESOPHAGOGASTRODUODENOSCOPY (EGD), FLEXIBLE, TRANSORAL, DIAGNOSTIC 5 11:20 AM EST Office Visit [address] [phone] Bell Mcqueen MD [address] [place] [address] [place] [address] Scheduled Procedures Name Priority Associated Diagnoses Date/Ti me ESOPHAGOGASTRODUODENOSCOPY ( EGD), FLEXIBLE, TRANSORAL, DIAGNOSTIC Recall Stark's esophagus with dysplasia 11/05/2024 9:30 AM EST COLONOSCOPY FLEXIBLE PROXIMA L DIAGNOSTIC Recall Stark's esophagus with dysplasia 11/05/2024 9:30 AM EST Health Maintenance Due Date Last Done Comments Adult Wellness Visit 2003 Depression Screening 07/12/2021 07/12/2020 CKD PHOS USE SMARTSET 50126 08/21/2022 10/0 02/2021, 07/12/2020, 03/13/2019, Additional history [...] Additional history exists CKD HGB USE SMARTSET 21664 08/04/202508/04, 08/04/2024, 07/28/2024, Additional history exists DTap/Tdap Vaccines (2 - Td or Tdap) 08/19/2027 08/19/2017, 08/20/2008 Pneumococcal Vaccine: 65+ Years Completed 06/23/2015, 05/14/2013, 04/18/2004 Zoster Vaccines Completed 12/02/2020, 08/15/2020 VITAMIN D LEVEL ONCE IN A LIFETIME-USE SMARTSET# [id number] Completed 04/22/2023, 08/28/2021, 07/14/2015 HPV (Gardasil) Vaccine Aged Out No lo nger eligible based on patient's age to complete this topic Hepatitis B Vaccine Aged Out No longe r eligible based on patient's age to complete this topic MENINGOCOCCAL (MENACTRA/MENVEO) Aged Out No longer eligible based on patient's age to complete this topic documented as of this encounter Medical Devices Implanted Type Area Front End Engineer Device Identifier Shelf Expiration Date Model / Serial / Lot Power Port 8fr Sngl Lumen Plas - [id number] Implanted:Qty: 1 on 02/22/2022 at [facility] BARD : PERIPHERAL VASCULAR [id number] 02/15/2023 [id number] / / [id number] documented as of this encounter Advance Directives * Full Code (Latest Code Status on File) Date Activated Date Inactivated Comments 09/03/2007 7:29 AM 09/03/2007 4:02 PM Care Teams Fitness Studies Teacher Relationship Specialty Start Date End Date Bell Mcqueen MD [address] [place] [address] [place] [address] PCP - General Family Medicine 06/24/24 documented as of this encounter
--- OUTSIDE RECORDS SUMMARY | 2024-09-02 11:48 | External Medical Summary | Summary of Care ---
Author Name Unknown Organization [facility] Address [address] [place] [address] Phone [phone] Care Team Providers Care Alignment Technician Name Role Phone Bell Mcqueen MD Primary Care Provide r Reason for Visit * Reason Onset Date Comments Hospital Follow-Up 08/12/2024 [place] Encounter Details Date Type Department Care Team (Late st Contact Info) Description 08/12/2024 Telephone [address] [phone] Bell Mcqueen MD [address] [place] [address] [place] [phone] Hospital Follow-Up ([facility]) Allergies Active Allergy Reactions Criticality Noted Date [...] 05/08/2016 Active Vitamin B12 500 MCG Oral TabletIndications: [...] albuterol 120 mL 5 11/21/2022 Active Ipratropium [place] 0.02 % Inhalation Solution (Atrovent)Indicati ons:Moderate persistent [...] INSTRUCTED BY [facility] 90 Tablet 3 05/07/2024 Active [...] 05/07/2024 Active Spironolactone 25 MG Oral Tablet (Aldactone)Indicat [...] Respimat 2.5 MCG/ACT Inhalation Aerosol Solution (Tiotropium [place] Monohydrate)Indica tions:Moderate persistent asthma without complication INHALE 2 PUFFS BY MOUTH EVERY DAY 12 g 3 07/28/2024 Active ProAir HFA 108 (90 Base) MCG/ACT Inhalation Aerosol SolutionIndication s:Moderate persistent asthma with exacerbation Inhale 2 Puffs by mouth every 4 hours as needed for Wheezing. 8.5 g 2 07/29/2024 Active Fluticasone Propionate 50 MCG/ACT Nasal Suspension (Flonase)Indicatio ns:Acute cough Administer 1 [place] into each nostril 2 times a day. 16 mL 1 07/29/2024 Active Torsemide 10 MG Oral Tablet (Demadex) Take 1 Tablet by mouth in the morning. 08/11/2024 Active Potassium Chloride [place] ER 10 MEQ Oral Tablet Extended Release Take 1 Tablet by mouth in the morning. 08/11/2024 Active Magnesium 125 MG Oral Capsule Take 250 mg by mouth daily. Active guaiFENesin ER 600 MG Oral Tablet Extended Release 12 Hour (Humibid LA)Indications:Acu te cough Take 1 Tablet by mouth in the morning and 1 Tablet before bedtime. 40 Tablet 11/04/2023 4 Discontinue d(Medicatio n List Clean Up) Torsemide 100 MG Oral Tablet (Demadex)Indicatio ns:Cellulitis of left lower leg One daily for 3 days and as needed 10 Tablet 06/17/2024 4 Discontinue d(Medicatio n List Clean Up) [...] rinse after steroid. Test performed by Sameer SWAHILI TEACHER CPFT Pleural plaque due to asbestos exposure Restrictive lung disease Overview: In Check dial performed to assess inhaler technique: 12/15/19 Name of inhalers Albuterol Pass: Yes at 60 L/min and Advair Pass: Yes at 60 L/min. Encouraged to to take deep breath, use aero chamber, and rinse after steroid. 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 Overview: [place] C0-M6 documented as of this encounter (statuses [...] mRNA, LNP-s, No Pre serve, 2-Dose Series ([employer] [place]) 12/01/2021,01/16/2021,12/26/2020 COVID-19, LNP-s, No Preserve , Ozzy-sucrose, Ages 12+ ([employer] [place]) 12/01/2021 COVID-19, MRNA-LNP, 23-24, P F, 30 MCG/0.3 mL, 12 YRS AND ABOVE, IM (Onyvax-Comirnat) 09/18/2023 Covid-19, Mrna, Lnp-s, Pf, B ivalent, 30 Mcg, IM, 12 yrs and above ([employer] [place]) 10/09/2022 Pneumococcal Conjugate Vacc, 13 Valent (Prevnar) [...] Telephone Encounter - Bell Mcqueen MD - 08/12/2024 1:21 PM EDT Okay to take melatonin 5mg qhs * Telephone Encounter - Mari Jensen RN - 08/12/2024 8:47 AM EDT Transitions of Care Note Reason for Referral:Recent Admission Phone visit for follow up: inpatient hospitalization Admitted to: [facility], Date: 08/08/24 Discharged to: Home, Date: 08/11/24 Diagnosis driving hospitalization: Confusion, Heart Failure, Acute on chronic renal failure Source/Contact: Spouse SUBJECTIVE Consent: Verbal consent for review of hospital discharge: Yes REVIEW OF SYSTEMS Patient/Other Reports: Current patient/caregiver problems or concerns: patient at home with and daughters, reports increased confusion and a sleepless night last night. Able to do ADLs mostly independently. Daughters alternating staying with patient and at night. AMS seems worse at night. Patients asking if melatonin can be increased to 5 mg instead of 3 mg. See alternate TE to Dr. Romero and Dr. Mcqueen. CV: Denies problems Pulmonary: Denies problems Chills/Sweats/Fever:Denies chills/sweats Denies fever Appetite:Denies problems such as nausea, vomiting, burning, decreased appetite Current diet: Normal Bowel: denies problems Bladder: blood in urine- had cystoscopy recently for check up with bladder CA Wound (If applicable): seeing wound center for recent skin tears, has stitches in ear from recent MOHS surgery, patients reports no drainage/redness/swelling. Pain:Denies Sleep:Problematic-confusion at night, needs redirecting back to sleep. FUNCTIONAL STATUS: ADL'S: Needs Assistance With:N/A as pt is independent IADL'S: Needs Assistance With:Grocery Shopping, Cooking food, Routine Housework, Using telephone, Taking medications, and Attending to safety Cognitive and Mental Health: alert and oriented x 1 objective and able to communicate, understand some instructions, process some information MEDICATION RECONCILIATION Medications: Discharge med list reviewed with patient or caregiver Reviewed and updated all prescription and OTC medications in Epic New medication(s) filled since hospitalization- Potassium Chloride 10 meq daily Changed medication(s) since hospitalization Synthroid 125 mcg every day except , on takes 250 mcg Torsemide 10 mg daily in the morning Reports all medications taken as prescribed. Denies side effects ASSESSMENT Medication Risk Assessment: No risks identified Did patient fail outpatient treatment? No Discharge instructions available for review? Yes PLAN Symptom Monitoring Interventions:Member/caregiver education - signs and symptoms to contact PrimaryCare (DO NOT DELETE-Three hathaway symptoms patient is to report to PCP) 1. Fever/Chills 2. Nausea/Vomiting 3. Worsening or uncontrolled pain Library Technical AssistantRehabilitation Aide/Scheduler of Care interventions/Action Plan: Medication reconciliation, Develop/confirm action plan for acute exacerbation, and 5 - 7 day follow-up with PCP in place - Date: 08/20/24 Educated on role of [place] completed with patient/caregiver. Educated patient/caregiver on patient right to have input on [place] plan of care. Verification of Home Health/DME if indicated: NO patients prefers to continue to take him to OP PT/OT at [facility], declines services at this time Identified Care Gaps: Yes Care Gaps closed this call: Appointment made or confirmed, Medication adherence, Medication monitoring, Plan of care optimization, Post discharge appointment, and Transition of Care follow-up communication Re-evaluation of Plan of Care and progress towards goals achievement: Patient education this visit: Verbal, see above Plan to follow-up as previously scheduled, instructed to call Primary Care Provider with change in symptoms or as needed before next follow-up, discharge needs met, verbalizes understanding and agrees with plan. Mari Jensen RN documented in this encounter Plan of Treatment Upcoming Encounters Date Type Department Care Team (Latest Contact Info) Description 4 6:30 AM EDT Anticoagulation Centralized Clinical Pharmacy Services, Angela Giles [address] [place] [address] [place] [address] [facility], [address] [place] [address] 4 10:30 AM EDT Laboratory Laboratory [address] [place] [phone] [place] [address] 4 10:30 AM EDT Immunization/Inject ion Hematology/Onc ology Treatment, [place] [address] [facility] [phone] 4 9:40 AM EDT Office Visit Family Medicine [address] [place] [phone] Juancho Romero MD [address] [place] [address] [place] [address] 4 8:40 AM EDT Office Visit Rheumatology [address] [place] [phone] Win Nielsen MD [facility] [place] [address] 4 10:00 AM EDT Cardiac Studies Cardiology [address] [place] [address] [facility] [address] [facility] [place] [address] 4 10:30 AM EDT Laboratory Laboratory [address] [place] [phone] [place] [address] 4 1:15 PM EDT Office Visit Hematology/Onc ology [facility] [address] [place] [phone] Ramon Cadet MD [address] [place] [address] 4 1:45 PM EDT Hem/Onc Treatment Hematology/Onc ology Treatment, [place] [address] [place] [phone] 4 9:30 AM EST Hospital En[place] [facility] End[place] Suite, [facility] 1, [address] [place], [place] [id number] Domingo Garcia DO [address] [place] [facility] [place] [address] 4 9:30 AM EST - 4 10:45 AM EST Surgery [facility] Endoscopy Suite, [facility] 1, [address] [place] [facility] [address] Domingo Garcia DO [address] [facility], [place] [id number] ESOPHAGOGASTRODUODENOSCOPY (EGD), FLEXIBLE, TRANSORAL, DIAGNOSTIC 5 11:20 AM EST Office Visit Family Medicine [address] [place] [phone] Bell Mcqueen MD [address] [place] [address] [place] [address] Scheduled Procedures Name Priority Associated Diagnoses Date/Ti me ESOPHAGOGASTRODUODENOSCOPY ( EGD), FLEXIBLE, TRANSORAL, DIAGNOSTIC Recall Stark's esophagus with dysplasia 11/05/2024 9:30 AM EST COLONOSCOPY FLEXIBLE PROXIMA L DIAGNOSTIC Recall Stark's esophagus with dysplasia 11/05/2024 9:30 AM EST Health Maintenance Due Date Last Done Comments Adult Wellness Visit 2003 Depression Screening 07/12/2021 07/12/2020 CKD PHOS USE SMARTSET 89402 08/21/202202/2021, 07/12/2020, 03/13/2019, Additional history exists *BISPHONATE [...] Additional history exists CKD HGB USE SMARTSET 49755 08/04/202508/04, 08/04/2024, 07/28/2024, Additional history exists DTap/Tdap Vaccines (2 - Td or Tdap) 08/19/2027 08/19/2017, 08/20/2008 Pneumococcal Vaccine: 65+ Years Completed 06/23/2015, 05/14/2013, 04/18/2004 Zoster Vaccines Completed 12/02/2020, 08/15/2020 VITAMIN D LEVEL ONCE IN A LIFETIME-USE SMARTSET# [id number] Completed 04/22/2023, 08/28/2021, 07/14/2015 HPV (Gardasil) Vaccine [...] encounter Medical Devices Implanted Type Area Manager Primary Device Identifier Shelf Expiration Date Model / Serial / Lot Power Port 8fr Sngl Lumen Plas - [id number] Implanted:Qty: 1 on 02/22/2022 at [facility] BARD : PERIPHERAL VASCULAR [id number] 02/15/2023 [id number] / / [id number] documented as of this encounter Advance Directives * Full Code (Latest Code Status on File) Date Activated Date Inactivated Comments 09/03/2007 7:29 AM 09/03/2007 4:02 PM Care Teams Alignment Technician Relationship Specialty Start Date End Date Bell Mcqueen MD [address] [place] [address] [place] [phone] PCP - General Family Medicine 06/24/24 documented as of this encounter
--- OUTSIDE RECORDS SUMMARY | 2024-09-02 11:48 | External Medical Summary | Summary of Care ---
Author Name Unknown Organization [facility] Address [address] [place] [address] Phone [phone] Care Team Providers Care Compliance Engineer Products Name Role Phone Bell Mcqueen MD Primary Care Provide r Encounter Details Date Type Department Care Team (Late st Contact Info) Description 08/12/2024 Telephone Access Center, Central Region [address] [facility] *DO NOT REMOVE THIS DEPARTMENT* [place] [address] Services, Scheduling [address] [place] [address] Allergies Active Allergy Reactions Criticality Noted Date [...] albuterol 120 mL 5 11/21/2022 Active Ipratropium [place] 0.02 % Inhalation Solution (Atrovent)Indicatio ns:Moderate persistent [...] EVENING. OR TAKE INSTRUCTED BY THE [facility] 90 Tablet 3 [...] Respimat 2.5 MCG/ACT Inhalation Aerosol Solution (Tiotropium [place] Monohydrate)Indicat ions:Moderate persistent asthma without complication INHALE 2 PUFFS BY MOUTH EVERY DAY 12 g 3 07/28/2024 Active ProAir HFA 108 (90 Base) MCG/ACT Inhalation Aerosol SolutionIndications :Moderate persistent asthma with exacerbation Inhale 2 Puffs by mouth every 4 hours as needed for Wheezing. 8.5 g 2 07/29/2024 Active Fluticasone Propionate 50 MCG/ACT Nasal Suspension (Flonase)Indication s:Acute cough Administer 1 [place] into each nostril 2 times a day. [...] rinse after steroid. Test performed by Sameer FORENSIC ENGINEER CPFT Pleural plaque due to asbestos exposure Restrictive lung disease Overview: In Check dial performed to assess inhaler technique: 12/15/19 Name of inhalers Albuterol Pass: Yes at 60 L/min and Advair Pass: Yes at 60 L/min. Encouraged to to take deep breath, use aero chamber, and rinse after steroid. Test performed by Sameer FORENSIC ENGINEER CPFT Hx of pulmonary embolus Stark's esophagus determined by endoscopy Overview: [place] C0-M6 documented as of this encounter [...] Malignant neoplasm of prostate 09/23/2008 03/27/2018 Overview: [place] grade 3 Atrial flutter 09/02/2007 10/16/2007 Herpes [...] mRNA, LNP-s, No Pre serve, 2-Dose Series (SwiftStack) 12/01/2021,01/16/2021,12/26/2020 COVID-19, LNP-s, No Preserve , Ozzy-sucrose, Ages 12+ (SwiftStack) 12/01/2021 COVID-19, MRNA-LNP, 23-24, P F, 30 [...] encounter Miscellaneous Notes * Telephone Encounter - Genny Llanes OSA [...] Anticoagulation Centralized Clinical Pharmacy Services, Angela Giles [address] [place] [address] [place] [address] [facility], [address] [place] [address] 4 9:45 AM EDT Nurse Only Hematology/Onc ology Treatment, [address] [phone] 4 10:30 AM EDT Hem/Onc Treatment Hematology/Onc ology Treatment, [address] [address] 4 9:40 AM EDT Office Visit [place] [address] [place] [phone] Juancho Romero MD [address] [place] [address] [place] [address] 4 8:40 AM EDT Office Visit Rheumatology [address] [place] [phone] Win Nielsen MD [facility] [place], [place] [address] 4 10:30 AM EDT Laboratory Laboratory [address] [place] [phone] [place] [address] 4 1:15 PM EDT Office Visit Hematology/Onc ology [facility] [address] [facility] [place], [place] [phone] Ramon Cadet MD [address] [facility] [place], [place] [address] 4 1:45 PM EDT Hem/Onc Treatment Hematology/Onc ology Treatment, [place] [address] [place] [phone] 4 9:30 AM EST Hospital En[place] [facility] Endoscopy Suite, HFAM 1, [address] [place], [place] [id number] Domingo Garcia DO [address] [place] [facility] [address] 4 9:30 AM EST - 4 10:45 AM EST Surgery [facility] Endoscopy Suite, HFAM 1, [address] [place] [facility] [address] Domnigo Garcia DO [address] [facility], [place] [id number] ESOPHAGOGASTRODUODENOSCOPY (EGD), FLEXIBLE, TRANSORAL, DIAGNOSTIC 5 11:20 AM EST Office Visit Family Medicine [address] [place] [phone] Bell Mcqueen MD [address] [place] [address] [place] [address] Scheduled Procedures Name Priority Associated Diagnoses Date/Ti me ESOPHAGOGASTRODUODENOSCOPY ( EGD), FLEXIBLE, TRANSORAL, DIAGNOSTIC Recall Stark's esophagus with dysplasia 11/05/2024 9:30 AM EST COLONOSCOPY FLEXIBLE PROXIMA L DIAGNOSTIC Recall Stark's esophagus with dysplasia 11/05/2024 9:30 AM EST Health Maintenance Due Date Last Done Comments Adult Wellness Visit 2003 Depression Screening 07/12/2021 07/12/2020 CKD PHOS USE SMARTSET 19345 08/21/202202/2021, 07/12/2020, 03/13/2019, Additional history exists *BISPHONATE [...] Additional history exists CKD HGB USE SMARTSET 56767 08/04/202508/04, 08/04/2024, 07/28/2024, Additional history exists DTap/Tdap Vaccines (2 - Td or Tdap) 08/19/2027 08/19/2017, 08/20/2008 Pneumococcal Vaccine: 65+ Years Completed 06/23/2015, 05/14/2013, 04/18/2004 Zoster Vaccines Completed 12/02/2020, 08/15/2020 VITAMIN D LEVEL ONCE IN A LIFETIME-USE SMARTSET# [id number] Completed 04/22/2023, 08/28/2021, 07/14/2015 HPV (Gardasil) Vaccine Aged Out No lo nger eligible based on patient's age to complete this topic Hepatitis B Vaccine Aged Out No longe r eligible based on patient's age to complete this topic MENINGOCOCCAL (MENACTRA/MENVEO) Aged Out No longer eligible based on patient's age to complete this topic documented as of this encounter Medical Devices Implanted Type Area Electron Beam Welding Machine Operator Device Identifier Shelf Expiration Date Model / Serial / Lot Power Port 8fr Sngl Lumen Plas - [id number] Implanted:Qty: 1 on 02/22/2022 at [facility] CR BARD : PERIPHERAL VASCULAR [id number] 02/15/2023 [id number] / / [id number] documented as of this encounter Advance Directives * Full Code (Latest Code Status on File) Date Activated Date Inactivated Comments 09/03/2007 7:29 AM 09/03/2007 4:02 PM Care Teams Compliance Engineer Products Relationship Specialty Start Date End Date Bell Mcqueen MD [address] [place] [address] [place] [phone] PCP - General Family Medicine 06/24/24 documented as of this encounter
--- OUTSIDE RECORDS SUMMARY | 2024-09-02 11:48 | External Medical Summary | Summary of Care ---
Author Name Unknown Organization [facility] Address [address] [place] [address] Phone [phone] Care Team Providers Care Blood Bank Assistant Name Role Phone Bell Mcqueen MD Primary Care Provide r Encounter Details Date Type Department Care Team (Late st Contact Info) Description 08/12/2024 Telephone Access Center, Central Region [address] [facility] *DO NOT REMOVE THIS DEPARTMENT* [place] [address] Services, Scheduling [address] [place] [address] Allergies Active Allergy Reactions Criticality Noted Date [...] albuterol 120 mL 5 11/21/2022 Active Ipratropium [place] 0.02 % Inhalation Solution (Atrovent)Indicatio ns:Moderate persistent [...] EVERY EVENING. OR TAKE INSTRUCTED BY THE [facility] 90 Tablet 3 [...] Respimat 2.5 MCG/ACT Inhalation Aerosol Solution (Tiotropium [place] Monohydrate)Indicat ions:Moderate persistent asthma without complication INHALE 2 PUFFS BY MOUTH EVERY DAY 12 g 3 07/28/2024 Active ProAir HFA 108 (90 Base) MCG/ACT Inhalation Aerosol SolutionIndications :Moderate persistent asthma with exacerbation Inhale 2 Puffs by mouth every 4 hours as needed for Wheezing. 8.5 g 2 07/29/2024 Active Fluticasone Propionate 50 MCG/ACT Nasal Suspension (Flonase)Indication s:Acute cough Administer 1 [place] into each nostril 2 times a day. [...] rinse after steroid. Test performed by Sameer AUTOMATIC VULCANIZING OPERATOR CPFT Pleural plaque due to asbestos exposure Restrictive lung disease Overview: In Check dial performed to assess inhaler technique: 12/15/19 Name of inhalers Albuterol Pass: Yes at 60 L/min and Advair Pass: Yes at 60 L/min. Encouraged to to take deep breath, use aero chamber, and rinse after steroid. 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 Overview: [place] C0-M6 documented as of this encounter (statuses [...] Malignant neoplasm of prostate 09/23/2008 03/27/2018 Overview: [place] grade 3 Atrial flutter 09/02/2007 10/16/2007 Herpes [...] mRNA, LNP-s, No Pre serve, 2-Dose Series (SiteJ[employer]ber) 12/01/2021,01/16/2021,12/26/2020 COVID-19, LNP-s, No Preserve , Ozzy-sucrose, Ages 12+ ([employer]Jabber) 12/01/2021 COVID-19, MRNA-LNP, 23-24, P F, 30 [...] Anticoagulation Centralized Clinical Pharmacy Services, Angela Giles [address] [place] [address] [place] [address] [facility], [address] [place] [address] 4 9:45 AM EDT Nurse Only Hematology/Onc ology Treatment, [address] [phone] 4 10:30 AM EDT Hem/Onc Treatment Hematology/Onc ology Treatment, [address] [address] 4 9:40 AM EDT Office Visit Family Medicine [place] [address] [place] [phone] Juancho Romero MD [address] [place] [address] [place] [address] 4 8:40 AM EDT Office Visit Rheumatology [address] [place] [phone] Win Nielsen MD [facility] [place], [place] [address] 4 10:30 AM EDT Laboratory Laboratory [address] [place] [phone] [place] [address] 4 1:15 PM EDT Office Visit Hematology/Onc ology [facility] 200 [facility] [place], [place] [phone] Ramon Cadet MD [address] [facility] [place], [place] [address] 4 1:45 PM EDT Hem/Onc Treatment Hematology/Onc ology Treatment, [place] [address] [facility] [place] [phone] 4 9:30 AM EST Hospital Encounter [facility], Endoscopy Suite, HFAM 1, [address] [place], [place] [id number] Domingo Garcia DO [address] [place] [facility] [address] 4 9:30 AM EST - 4 10:45 AM EST Surgery [facility], Endoscopy Suite, HFAM 1, [address] [place] [facility] [place] [address] Domingo Garcia DO [address] [facility], [place] [phone] ESOPHAGOGASTRODUODENOSCOPY (EGD), FLEXIBLE, TRANSORAL, DIAGNOSTIC 5 11:20 AM EST Office Visit Family Medicine [address] [place] [phone] Bell Mcqueen MD [address] [place] [address] [place] [address] Scheduled Procedures Name Priority Associated Diagnoses Date/Ti me ESOPHAGOGASTRODUODENOSCOPY ( EGD), FLEXIBLE, TRANSORAL, DIAGNOSTIC Recall Stark's esophagus with dysplasia 11/05/2024 9:30 AM EST COLONOSCOPY FLEXIBLE PROXIMA L DIAGNOSTIC Recall Stark's esophagus with dysplasia 11/05/2024 9:30 AM EST Health Maintenance Due Date Last Done Comments Adult Wellness Visit 2003 Depression Screening 07/12/2021 07/12/2020 CKD PHOS USE SMARTSET 89689 08/21/202202/2021, 07/12/2020, 03/13/2019, Additional history exists *BISPHONATE [...] Additional history exists CKD HGB USE SMARTSET 23647 08/04/202508/04, 08/04/2024, 07/28/2024, Additional history exists DTap/Tdap Vaccines (2 - Td or Tdap) 08/19/2027 08/19/2017, 08/20/2008 Pneumococcal Vaccine: 65+ Years Completed 06/23/2015, 05/14/2013, 04/18/2004 Zoster Vaccines Completed 12/02/2020, 08/15/2020 VITAMIN D LEVEL ONCE IN A LIFETIME-USE SMARTSET# [id number] Completed 04/22/2023, 08/28/2021, 07/14/2015 HPV (Gardasil) Vaccine Aged Out No lo nger eligible based on patient's age to complete this topic Hepatitis B Vaccine Aged Out No longe r eligible based on patient's age to complete this topic MENINGOCOCCAL (MENACTRA/MENVEO) Aged Out No longer eligible based on patient's age to complete this topic documented as of this encounter Medical Devices Implanted Type Area Graphics Coordinator Device Identifier Shelf Expiration Date Model / Serial / Lot Power Port 8fr Sngl Lumen Plas - [id number] Implanted:Qty: 1 on 02/22/2022 at [facility] CR BARD : PERIPHERAL VASCULAR [id number] 02/15/2023 [id number] / / [id number] documented as of this encounter Advance Directives * Full Code (Latest Code Status on File) Date Activated Date Inactivated Comments 09/03/2007 7:29 AM 09/03/2007 4:02 PM Care Teams Blood Bank Assistant Relationship Specialty Start Date End Date Bell Mcqueen MD [address] [place] [address] [place] [phone] PCP - General Family Medicine 06/24/24 documented as of this encounter
--- OUTSIDE RECORDS SUMMARY | 2024-09-02 11:48 | External Medical Summary | Summary of Care ---
Author Name Unknown Organization [facility] Address [address] [place] [address] Phone [phone] Care Team Providers Care Sugar Laboratory Assistant Name Role Phone Bell Mcqueen MD Primary Care Provide r Encounter Details Date Type Department Care Team (Late st Contact Info) Description 08/12/2024 Telephone Access Center, Central Region [address] [facility] *DO NOT REMOVE THIS DEPARTMENT* [place] [address] Services, Scheduling [address] [place] [address] Allergies Active Allergy Reactions Criticality Noted Date [...] albuterol 120 mL 5 11/21/2022 Active Ipratropium [place] 0.02 % Inhalation Solution (Atrovent)Indicatio ns:Moderate persistent [...] Respimat 2.5 MCG/ACT Inhalation Aerosol Solution (Tiotropium [place] Monohydrate)Indicat ions:Moderate persistent asthma without complication INHALE 2 PUFFS BY MOUTH EVERY DAY 12 g 3 07/28/2024 Active ProAir HFA 108 (90 Base) MCG/ACT Inhalation Aerosol SolutionIndications :Moderate persistent asthma with exacerbation Inhale 2 Puffs by mouth every 4 hours as needed for Wheezing. 8.5 g 2 07/29/2024 Active Fluticasone Propionate 50 MCG/ACT Nasal Suspension (Flonase)Indication s:Acute cough Administer 1 [place] into each nostril 2 times a day. [...] rinse after steroid. Test performed by Sameer TAX AUDIT MANAGER CPFT Pleural plaque due to asbestos exposure Restrictive lung disease Overview: In Check dial performed to assess inhaler technique: 12/15/19 Name of inhalers Albuterol Pass: Yes at 60 L/min and Advair Pass: Yes at 60 L/min. Encouraged to to take deep breath, use aero chamber, and rinse after steroid. 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 Most recent hgb 08/10/24: 7.9 Left message for patients - advised that if she wants to reschedule appts to come in sooner than next week to call back; otherwise will leave appt 08/19/24. Scheduling: please adjust patients appts for next week - [facility]30[facility] "CBCd" [...] Centralized Clinical Pharmacy Services, Angela Giles [address] [place] [address] [place] [address] [place] [address] 4 9:45 AM EDT Nurse Only Hematology/Onc ology Treatment, [address] [phone] 4 10:30 AM EDT Hem/Onc Treatment Hematology/Onc ology Treatment, [address] [phone] 4 9:40 AM EDT Office Visit Family Medicine [address] [place] [phone] Juancho Romero MD [address] [place] [address] [place] [address] 4 8:40 AM EDT Office Visit Rheumatology [address] [place] [phone] Win Nielsen MD [address] [place] [address] [place] [address] 4 10:00 AM EDT Cardiac Studies Cardiology [address] [place] [address] [facility] [address] [place] [address] 4 10:30 AM EDT Laboratory Laboratory [address] [place] [phone] [facility] [address] [place] [address] 4 1:15 PM EDT Office Visit Hematology/Onc ology [facility] [place] [phone] Ramon Cadet MD [address] [place] [address] 4 1:45 PM EDT Hem/Onc Treatment Hematology/Onc ology Treatment, [place] [facility] [place] [address] 4 9:30 AM EST Hospital Encounter [facility], Endoscopy Suite, HFAM 1, [address] [place] [address] Domingo Garcia, [address] [place] [address] 4 9:30 AM EST - 4 10:45 AM EST Surgery [facility], Endoscopy Suite, HFAM 1, [address] [place] [address] Domingo Garcia DO [address] [place], [place] [id number] ESOPHAGOGASTRODUODENOSCOPY (EGD), FLEXIBLE, TRANSORAL, DIAGNOSTIC 5 11:20 AM EST Office Visit [address] [phone] Bell Mcqueen MD [address] [place] [address] [place] [address] Scheduled Procedures Name Priority Associated Diagnoses Date/Ti me ESOPHAGOGASTRODUODENOSCOPY ( EGD), FLEXIBLE, TRANSORAL, DIAGNOSTIC Recall Stark's esophagus with dysplasia 11/05/2024 9:30 AM EST COLONOSCOPY FLEXIBLE PROXIMA L DIAGNOSTIC Recall Stark's esophagus with dysplasia 11/05/2024 9:30 AM EST Health Maintenance Due Date Last Done Comments Adult Wellness Visit 2003 Depression Screening 07/12/2021 07/12/2020 CKD PHOS USE SMARTSET 21394 08/21/2022 10/0 02/2021, 07/12/2020, 03/13/2019, Additional history [...] Additional history exists CKD HGB USE SMARTSET 31298 08/04/202508/04, 08/04/2024, 07/28/2024, Additional history exists DTap/Tdap Vaccines (2 - Td or Tdap) 08/19/2027 08/19/2017, 08/20/2008 Pneumococcal Vaccine: 65+ Years Completed 06/23/2015, 05/14/2013, 04/18/2004 Zoster Vaccines Completed 12/02/2020, 08/15/2020 VITAMIN D LEVEL ONCE IN A LIFETIME-USE SMARTSET# [id number] Completed 04/22/2023, 08/28/2021, 07/14/2015 HPV (Gardasil) Vaccine [...] encounter Medical Devices Implanted Type Area Senior Vice President Device Identifier Shelf Expiration Date Model / Serial / Lot Power Port 8fr Sngl Lumen Plas - [id number] Implanted:Qty: 1 on 02/22/2022 at [facility] BARD : PERIPHERAL VASCULAR [id number] 02/15/2023 [id number] / / [id number] documented as of this encounter Advance Directives * Full Code (Latest Code Status on File) Date Activated Date Inactivated Comments 09/03/2007 7:29 AM 09/03/2007 4:02 PM Care Teams Sugar Laboratory Assistant Relationship Specialty Start Date End Date Bell Mcqueen MD [address] [place] [address] [place] [address] PCP - General Family Medicine 06/24/24 documented as of this encounter
--- OUTSIDE RECORDS SUMMARY | 2024-09-02 11:48 | External Medical Summary | Summary of Care ---
Author Name Unknown Organization [facility] Address [address] [place] [address] Phone [phone] Care Team Providers Care Market Development Executive Name Role Phone Linwood Hanna MD Primary Care Provide r Reason for Visit * Reason Onset Date Comments Hospital Follow-Up 08/12/2024 ALVIN Encounter Details Date Type Department Care Team (Late st Contact Info) Description 08/12/2024 Telephone Family [address] [phone] Linwood Hanna MD [address] [place] [address] [place] [phone] Hospital Follow-Up (ALVIN) Allergies Active Allergy Reactions Criticality Noted Date Comments Penicillins Other (Please comment),Rash High Eyes swell Pollen 05/03/2022 Wound Dressing Adhesive Rash 05/02/2023 Patient reported Olanzapine Neuro complications (Please comment) 04/09/2024 documented as of this encounter (statuses as of 08/14/2024) Medications Medication Sig Dispensed Refills Start Date [...] albuterol 120 mL 5 11/21/2022 Active Ipratropium [place] 0.02 % Inhalation Solution (Atrovent)Indicati ons:Moderate persistent [...] EVERY EVENING. OR TAKE INSTRUCTED BY [facility] 90 Tablet 3 05/07/2024 [...] Respimat 2.5 MCG/ACT Inhalation Aerosol Solution (Tiotropium [place] Monohydrate)Indica tions:Moderate persistent asthma without complication INHALE 2 PUFFS BY MOUTH EVERY DAY 12 g 3 07/28/2024 Active ProAir HFA 108 (90 Base) MCG/ACT Inhalation Aerosol SolutionIndication s:Moderate persistent asthma with exacerbation Inhale 2 Puffs by mouth every 4 hours as needed for Wheezing. 8.5 g 2 07/29/2024 Active Fluticasone Propionate 50 MCG/ACT Nasal Suspension (Flonase)Indicatio ns:Acute cough Administer 1 [place] into each nostril 2 times a day. [...] Active traZODone HCl 50 MG Oral Tablet (Desyrel)Indicatio ns:Insomnia, unspecified type Take 1 Tablet by mouth at bedtime. 30 Tablet 5 08/14/2024 Active guaiFENesin ER 600 MG Oral Tablet [...] as of this encounter (statuses as of 08/14/2024) Active Problems Problem Noted Date Diagnosed Date [...] rinse after steroid. Test performed by Sameer NATURAL SCIENCES MANAGER CPFT Pleural plaque due to asbestos exposure Restrictive lung disease Overview: In Check dial performed to assess inhaler technique: 12/15/19 Name of inhalers Albuterol Pass: Yes at 60 L/min and Advair Pass: Yes at 60 L/min. Encouraged to to take deep breath, use aero chamber, and rinse after steroid. 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 icoagulant therapy 05/30/2005 [...] as of this encounter (statuses as of 08/14/2024) Immunizations Name Administration Dates Next Due COVID-19 mRNA, LNP-s, No Pre serve, 2-Dose Series ([place]) 12/01/2021,01/16/2021,12/26/2020 COVID-19, LNP-s, No Preserve , Ozzy-sucrose, Ages 12+ ([place]) 12/01/2021 COVID-19, MRNA-LNP, 23-24, P F, 30 MCG/0.3 mL, 12 YRS AND ABOVE, IM ([facility] 09/18/2023 Covid-19, Mrna, Lnp-s, Pf, B ivalent, 30 Mcg, IM, 12 yrs and above ([place]) 10/09/2022 Pneumococcal Conjugate Vacc, 13 Valent (Prevnar) [...] as of this encounter Miscellaneous Notes * Addendum Note - Linwood Hanna MD - 08/14/2024 11:23 AM EDTAddended by: LINWOOD HANNA on: 08/14/2024 11:23 AM Modules accepted: Orders * Telephone Encounter - Linwood Hanna MD - 08/14/2024 11:21 AM EDT I sent trazodone [facility] - pls advised the pt to try the trazodone - I sent a myg abt this thus no need to call * Telephone Encounter - Susan Smith CMA - 08/13/2024 1:03 PM EDT She had already went ahead and tried it. It is not helping. She said he gets up at night and he is agitated. Her and her daughter are up with him. He doesn't sleep during the day either. Is there anything else that he could be given?No one in their home is able to rest. * Telephone Encounter - Linwood Hanna MD - 08/12/2024 1:21 PM EDT Okay to take melatonin 5mg qhs * Telephone Encounter - Mari Jensen RN - 08/12/2024 8:47 AM EDT Transitions of Care Note Reason for Referral:Recent Admission Phone visit for follow up: inpatient hospitalization Admitted to: [facility], Date: 08/08/24 Discharged to: Home, Date: 08/11/24 [...] alternate TE to Dr. Romero and Dr. Hanna. CV: Denies problems Pulmonary: Denies problems Chills/Sweats/Fever:Denies [...] 2. Nausea/Vomiting 3. Worsening or uncontrolled pain Telecommunications ManagerNon Food Receiving Clerk of Care interventions/Action Plan: Medication reconciliation, Develop/confirm [...] Anticoagulation Centralized Clinical Pharmacy Services, Angela Giles [address] [place] [address] [place] [address] [place] [address] 4 10:30 AM EDT Laboratory Laboratory [address] [place] [phone] [place] [address] 4 10:30 AM EDT Immunization/Inject ion Hematology/Onc ology Treatment, [place] 200 [facility] [place] [address] 4 9:40 AM EDT Office Visit Family Medicine [address] [place] [phone] Juancho Romero MD [address] [place] [address] [place] [address] 4 8:40 AM EDT Office Visit Rheumatology [address] [place] [phone] Win Nielsen MD [facility] [place] [address] 4 10:00 AM EDT Cardiac Studies Cardiology [address] [place] [address] Og Frazier [address] [place] [address] 4 10:30 AM EDT Laboratory Laboratory [address] [place] [phone] [address] [place] [address] 4 12:00 PM EDT Office Visit Cardiology [address] [place] [address] Chas Wilkinson PA-C [address] [place] [address] 4 1:15 PM EDT Office Visit Hematology/Onc ology [facility] [address] [facility] [place] [phone] Ramon Cadet MD [address] [facility] [place] [address] 4 1:45 PM EDT Hem/Onc Treatment Hematology/Onc ology [facility], [place] 200 [facility] [place] [address] 4 9:30 AM EST Hospital Encounter [facility] Suite, HFAM 1, [address] [place] [address] Domingo Garcia DO [address] [place] [address] 4 9:30 AM EST - 4 10:45 AM EST Surgery [facility] Endoscopy Suite, HFAM 1, [address] [place] [address] Domingo Garcia DO [address] [place] [address] ESOPHAGOGASTRODUODENOSCOPY (EGD), FLEXIBLE, TRANSORAL, DIAGNOSTIC 5 11:20 AM EST Office Visit Family Medicine [address] [place] [phone] Linwood Hanna MD [address] [place] [address] [place] [address] Scheduled Procedures Name Priority Associated Diagnoses Date/Ti me ESOPHAGOGASTRODUODENOSCOPY ( EGD), FLEXIBLE, TRANSORAL, DIAGNOSTIC Recall Stark's esophagus with dysplasia 11/05/2024 9:30 AM EST COLONOSCOPY FLEXIBLE PROXIMA L DIAGNOSTIC Recall Stark's esophagus with dysplasia 11/05/2024 9:30 AM EST Health Maintenance Due Date Last Done Comments Adult Wellness Visit 2003 Depression Screening 07/12/2021 07/12/2020 CKD PHOS USE SMARTSET 13552 08/21/2022 10/0 02/2021, 07/12/2020, 03/13/2019, Additional history [...] Additional history exists CKD HGB USE SMARTSET 42519 08/04/202508/04, 08/04/2024, 07/28/2024, Additional history exists DTap/Tdap Vaccines (2 - Td or Tdap) 08/19/2027 08/19/2017, 08/20/2008 Pneumococcal Vaccine: 65+ Years Completed 06/23/2015, 05/14/2013, 04/18/2004 Zoster Vaccines Completed 12/02/2020, 08/15/2020 VITAMIN D LEVEL ONCE IN A LIFETIME-USE SMARTSET# [id number] Completed 04/22/2023, 08/28/2021, 07/14/2015 HPV (Gardasil) Vaccine [...] encounter Medical Devices Implanted Type Area Tool Coordinator Device Identifier Shelf Expiration Date Model / Serial / Lot Power Port 8fr Sngl Lumen Plas - [id number] Implanted:Qty: 1 on 02/22/2022 at [facility] CR BARD : PERIPHERAL VASCULAR [id number] 02/15/2023 [id number] / / [id number] documented as of this encounter Visit Diagnoses Diagnosis Insomnia, unspecified type- Primary Stark's esophagus with dysplasia Stark's esophagus documented in this encounter Advance Directives * Full Code (Latest Code Status on File) Date Activated Date Inactivated Comments 09/03/2007 7:29 AM 09/03/2007 4:02 PM Care Teams Market Development Executive Relationship Specialty Start Date End Date Linwood Hanna MD [address] [place] [address] [place] [phone] PCP - General Family Medicine 06/24/24 documented as of this encounter
--- OUTSIDE RECORDS SUMMARY | 2024-09-02 11:48 | External Medical Summary | Summary of Care ---
Author Name Unknown Organization [facility] Address [address] [place] [address] Phone [phone] Care Team Providers Care Referral Agent Name Role Phone Bell Mcqueen MD Primary Care Provide r Reason for Visit * Reason Onset Date Comments Hospital Follow-Up 08/12/2024 ALVIN Encounter Details Date Type Department Care Team (Late st Contact Info) Description 08/12/2024 Telephone Family [address] [phone] Bell Mcqueen MD [address] [place] [address] [place] [phone] Hospital Follow-Up (ALVIN) Allergies Active Allergy Reactions Criticality Noted Date Comments Penicillins Other (Please comment),Rash High Eyes swell Pollen 05/03/2022 Wound Dressing Adhesive Rash 05/02/2023 Patient reported Olanzapine Neuro complications (Please comment) 04/09/2024 documented as of this encounter (statuses as of 08/13/2024) Medications Medication Sig Dispensed Refills Start Date [...] albuterol 120 mL 5 11/21/2022 Active Ipratropium [place] 0.02 % Inhalation Solution (Atrovent)Indicati ons:Moderate persistent [...] EVERY EVENING. OR TAKE INSTRUCTED BY [facility] 90 Tablet 3 [...] Respimat 2.5 MCG/ACT Inhalation Aerosol Solution (Tiotropium [place] Monohydrate)Indica tions:Moderate persistent asthma without complication INHALE 2 PUFFS BY MOUTH EVERY DAY 12 g 3 07/28/2024 Active ProAir HFA 108 (90 Base) MCG/ACT Inhalation Aerosol SolutionIndication s:Moderate persistent asthma with exacerbation Inhale 2 Puffs by mouth every 4 hours as needed for Wheezing. 8.5 g 2 07/29/2024 Active Fluticasone Propionate 50 MCG/ACT Nasal Suspension (Flonase)Indicatio ns:Acute cough Administer 1 [place] into each nostril 2 times a day. [...] as of this encounter (statuses as of 08/13/2024) Active Problems Problem Noted Date Diagnosed Date [...] rinse after steroid. Test performed by Sameer SMOCKER CPFT Pleural plaque due to asbestos exposure Restrictive lung disease Overview: In Check dial performed to assess inhaler technique: 12/15/19 Name of inhalers Albuterol Pass: Yes at 60 L/min and Advair Pass: Yes at 60 L/min. Encouraged to to take deep breath, use aero chamber, and rinse after steroid. Test performed by Sameer SMOCKER CPFT Hx of pulmonary embolus Stark's esophagus determined by endoscopy Overview: [place] C0-M6 documented as of this encounter (statuses as of 08/13/2024) Resolved Problems Problem Noted Date Diagnosed Date [...] as of this encounter (statuses as of 08/13/2024) Immunizations Name Administration Dates Next Due COVID-19 mRNA, LNP-s, No Pre serve, 2-Dose Series ([place]) 12/01/2021,01/16/2021,12/26/2020 COVID-19, LNP-s, No Preserve , Ozzy-sucrose, Ages 12+ ([place]) 12/01/2021 COVID-19, MRNA-LNP, 23-24, P F, 30 MCG/0.3 mL, 12 YRS AND ABOVE, IM ([facility]) 09/18/2023 Covid-19, Mrna, Lnp-s, Pf, B ivalent, 30 Mcg, IM, 12 yrs and above ([facility]) 10/09/2022 Pneumococcal Conjugate Vacc, 13 Valent (Prevnar) [...] encounter Miscellaneous Notes * Telephone Encounter - Susan Smith CMA [...] able to rest. * Telephone Encounter - Bell Mcqueen MD - 08/12/2024 1:21 PM EDT Okay to take melatonin 5mg qhs * Telephone Encounter - Mari Jensen RN - 08/12/2024 8:47 AM EDT Transitions of Care Note Reason for Referral:Recent Admission Phone visit for follow up: inpatient hospitalization Admitted to: [facility], Date: 08/08/24 Discharged to: Home, Date: [...] 2. Nausea/Vomiting 3. Worsening or uncontrolled pain Improvement NurseSide Splitter of Care interventions/Action Plan: Medication reconciliation, Develop/confirm [...] him to OP PT/OT at [facility], declines HH services at this time Identified Care Gaps: [...] AM EDT Anticoagulation Centralized Clinical Pharmacy Services, [facility] [address] [place] [address] [place] [address] [place] [address] 4 10:30 AM EDT Laboratory Laboratory [address] [place] [phone] [facility] [address] [place] [address] 4 10:30 AM EDT Immunization/Inject ion Hematology/Onc ology Treatment, [place] [address] [place] [address] 4 9:40 AM EDT Office Visit Family Medicine [address] [place] [address] Juancho Romero MD [address] [place] [address] [place] [address] 4 8:40 AM EDT Office Visit Rheumatology [address] [place] [phone] iWn Nielsen MD [address] [place] [address] [place] [address] 4 10:00 AM EDT Cardiac Studies Cardiology [address] [place] [address] Og Frazier [facility] [address] [place] [address] 4 10:30 AM EDT Laboratory Laboratory [address] [place] [phone] [facility] [address] [place] [address] 4 12:00 PM EDT Office Visit Cardiology [address] [place] [address] Chas Wilkinson PA-C [address] [place] [address] 4 1:15 PM EDT Office Visit Hematology/Onc ology [facility] 200 [facility] [place] [phone] Ramon Cadet MD 200 [facility] [place] [address] 4 1:45 PM EDT Hem/Onc Treatment Hematology/Onc ology [facility], [place] 200 [facility] [place] [address] 4 9:30 AM EST Hospital Encounter [facility], HFAM 1, [address] [place] [address] Domingo Garcia, DO [address] [place] [address] 4 9:30 AM EST - 4 10:45 AM EST Surgery [facility] Endoscopy Suite, HFAM 1, [address] [place] [address] Domingo Garcia, DO [address] [place], [place] [phone] ESOPHAGOGASTRODUODENOSCOPY (EGD), FLEXIBLE, TRANSORAL, DIAGNOSTIC 5 11:20 AM EST Office Visit [address] [place] [phone] Bell Mcqueen MD [address] [place] [address] [place] [address] Scheduled Procedures Name Priority Associated Diagnoses Date/Ti me ESOPHAGOGASTRODUODENOSCOPY ( EGD), FLEXIBLE, TRANSORAL, DIAGNOSTIC Recall Stark's esophagus with dysplasia 11/05/2024 9:30 AM EST COLONOSCOPY FLEXIBLE PROXIMA L DIAGNOSTIC Recall Stark's esophagus with dysplasia 11/05/2024 9:30 AM EST Health Maintenance Due Date Last Done Comments Adult Wellness Visit 2003 Depression Screening 07/12/2021 07/12/2020 CKD PHOS USE SMARTSET 02218 08/21/2022 10/0 02/2021, 07/12/2020, 03/13/2019, Additional history [...] Additional history exists CKD HGB USE SMARTSET 67873 08/04/202508/04, 08/04/2024, 07/28/2024, Additional history exists DTap/Tdap Vaccines (2 - Td or Tdap) 08/19/2027 08/19/2017, 08/20/2008 Pneumococcal Vaccine: 65+ Years Completed 06/23/2015, 05/14/2013, 04/18/2004 Zoster Vaccines Completed 12/02/2020, 08/15/2020 VITAMIN D LEVEL ONCE IN A LIFETIME-USE SMARTSET# [id number] Completed 04/22/2023, 08/28/2021, 07/14/2015 HPV (Gardasil) Vaccine Aged Out No lo nger eligible based on patient's age to complete this topic Hepatitis B Vaccine Aged Out No longe r eligible based on patient's age to complete this topic MENINGOCOCCAL (MENACTRA/MENVEO) Aged Out No longer eligible based on patient's age to complete this topic documented as of this encounter Medical Devices Implanted Type Area Medicaid Nurse Device Identifier Shelf Expiration Date Model / Serial / Lot Power Port 8fr Sngl Lumen Plas - [id number] Implanted:Qty: 1 on 02/22/2022 at [facility] CR BARD : PERIPHERAL VASCULAR [id number] 02/15/2023 [id number] / / [id number] documented as of this encounter Advance Directives * Full Code (Latest Code Status on File) Date Activated Date Inactivated Comments 09/03/2007 7:29 AM 09/03/2007 4:02 PM Care Teams Referral Agent Relationship Specialty Start Date End Date Bell Mcqueen MD [address] [place] [address] [place] [phone] PCP - General Family Medicine 06/24/24 documented as of this encounter
--- OUTSIDE RECORDS SUMMARY | 2024-09-02 11:48 | External Medical Summary | Summary of Care ---
Author Name Unknown Organization [facility] Address [address] [place] [address] Phone [phone] Care Team Providers Care Inset Cutter Name Role Phone Bell Mcqueen MD Primary Care Provide r Reason for Visit * Reason Onset Date Comments Appointment 08/12/2024 Encounter Details Date Type Department Care Team (Late st Contact Info) Description 08/12/2024 Telephone Access Center, [place] [address] [facility] *DO NOT REMOVE THIS DEPARTMENT* [place] [address] Services, Scheduling [address] [place] [address] Appointment Allergies Active Allergy Reactions Criticality Noted [...] albuterol 120 mL 5 11/21/2022 Active Ipratropium [place] 0.02 % Inhalation Solution (Atrovent)Indicatio ns:Moderate persistent [...] EVERY EVENING. OR TAKE INSTRUCTED BY THE [facility] 90 Tablet 3 [...] Respimat 2.5 MCG/ACT Inhalation Aerosol Solution (Tiotropium [place] Monohydrate)Indicat ions:Moderate persistent asthma without complication INHALE 2 PUFFS BY MOUTH EVERY DAY 12 g 3 07/28/2024 Active ProAir HFA 108 (90 Base) MCG/ACT Inhalation Aerosol SolutionIndications :Moderate persistent asthma with exacerbation Inhale 2 Puffs by mouth every 4 hours as needed for Wheezing. 8.5 g 2 07/29/2024 Active Fluticasone Propionate 50 MCG/ACT Nasal Suspension (Flonase)Indication s:Acute cough Administer 1 [place] into each nostril 2 times a day. [...] after steroid. Test performed by Sameer ENVIRONMENTAL SCIENCE INSTRUCTOR CPFT Pleural plaque due to asbestos exposure Restrictive lung disease Overview: In Check dial performed to assess inhaler technique: 12/15/19 Name of inhalers Albuterol Pass: Yes at 60 L/min and Advair Pass: Yes at 60 L/min. Encouraged to to take deep breath, use aero chamber, and rinse after steroid. Test performed by Sameer ENVIRONMENTAL SCIENCE INSTRUCTOR CPFT Hx of pulmonary embolus Stark's esophagus determined by endoscopy Overview: [place] C0-M6 documented as of this encounter (statuses [...] mRNA, LNP-s, No Pre serve, 2-Dose Series ([employer]) 12/01/2021,01/16/2021,12/26/2020 COVID-19, LNP-s, No Preserve , Ozzy-sucrose, Ages 12+ ([employer]) 12/01/2021 COVID-19, MRNA-LNP, 23-24, P F, 30 [...] encounter Miscellaneous Notes * Telephone Encounter - Semaj Nails OSA - 08/12/2024 12:08 PM EDT Appts adjusted * Telephone Encounter - Rosalie Miramontes RN - 08/12/2024 11:35 AM EDT Patient admitted at [facility] 08/08- 08/11 for heart failure, anemia. Most recent hgb 08/10/24: 7.9 Left message for patients - advised that if she wants to reschedule appts to come in sooner than next week to call back; otherwise will leave appt 08/19/24. Scheduling: please adjust patients appts for next week - he usually goes to [facility] the day before around 10:30am "CBCd" [...] AM EDT Anticoagulation Centralized Clinical Pharmacy Services, [facility] [address] [place] [address] [place] [address] [facility], [address] [place] [address] 4 10:30 AM EDT Laboratory Laboratory [address] [place] [phone] [place] [address] 4 10:30 AM EDT Immunization/Inject ion Hematology/Onc ology Treatment, [place] [address] [place] [address] 4 9:40 AM EDT Office Visit Family Medicine [address] [place] [phone] Juancho Romero MD [address] [place] [address] [place] [address] 4 8:40 AM EDT Office Visit Rheumatology [address] [place] [phone] Win Nielsen MD [address] [place] [address] [place] [address] 4 10:00 AM EDT Cardiac Studies Cardiology [address] [place] [address] Og Frazier [facility] 132 [facility] [place] [address] 4 10:30 AM EDT Laboratory Laboratory [address] [place] [phone] [place] [address] 4 1:15 PM EDT Office Visit Hematology/Onc ology [facility] 200 [facility] [place] [phone] Ramon Cadet MD 200 [facility] [place] [address] 4 1:45 PM EDT Hem/Onc Treatment Hematology/Onc ology Treatment, [place] [facility] [phone] 4 9:30 AM EST Hospital Encounter [facility], Endoscopy Suite, HFAM 1, [address] [place] [address] Domingo Garcia DO [address] [place] [address] 4 9:30 AM EST - 4 10:45 AM EST Surgery [facility], Endoscopy Suite, HFAM 1, [address] [place] [address] Domingo Garcia DO [address] [place] [facility] [place] [address] ESOPHAGOGASTRODUODENOSCOPY (EGD), FLEXIBLE, TRANSORAL, DIAGNOSTIC 5 11:20 AM EST Office Visit Family Medicine [address] [place] [phone] Bell Mcqueen MD [address] [place] [address] [place] [address] Scheduled Procedures Name Priority Associated Diagnoses Date/Ti me ESOPHAGOGASTRODUODENOSCOPY ( EGD), FLEXIBLE, TRANSORAL, DIAGNOSTIC Recall Stark's esophagus with dysplasia 11/05/2024 9:30 AM EST COLONOSCOPY FLEXIBLE PROXIMA L DIAGNOSTIC Recall Stark's esophagus with dysplasia 11/05/2024 9:30 AM EST Health Maintenance Due Date Last Done Comments Adult Wellness Visit 2003 Depression Screening 07/12/2021 07/12/2020 CKD PHOS USE SMARTSET 17861 08/21/2022 10/0 02/2021, 07/12/2020, 03/13/2019, Additional history [...] Additional history exists CKD HGB USE SMARTSET 73328 08/04/202508/04, 08/04/2024, 07/28/2024, Additional history exists DTap/Tdap Vaccines (2 - Td or Tdap) 08/19/2027 08/19/2017, 08/20/2008 Pneumococcal Vaccine: 65+ Years Completed 06/23/2015, 05/14/2013, 04/18/2004 Zoster Vaccines Completed 12/02/2020, 08/15/2020 VITAMIN D LEVEL ONCE IN A LIFETIME-USE SMARTSET# [id number] Completed 04/22/2023, 08/28/2021, 07/14/2015 HPV (Gardasil) Vaccine Aged Out No lo nger eligible based on patient's age to complete this topic Hepatitis B Vaccine Aged Out No longe r eligible based on patient's age to complete this topic MENINGOCOCCAL (MENACTRA/MENVEO) Aged Out No longer eligible based on patient's age to complete this topic documented as of this encounter Medical Devices Implanted Type Area Drone Pilot Device Identifier Shelf Expiration Date Model / Serial / Lot Power Port 8fr Sngl Lumen Plas - [id number] Implanted:Qty: 1 on 02/22/2022 at [facility] CR BARD : PERIPHERAL VASCULAR [id number] 02/15/2023 [id number] / / [id number] documented as of this encounter Advance Directives * Full Code (Latest Code Status on File) Date Activated Date Inactivated Comments 09/03/2007 7:29 AM 09/03/2007 4:02 PM Care Teams Inset Cutter Relationship Specialty Start Date End Date Bell Mcqueen MD [address] [place] [address] [place] [address] PCP - General Family Medicine 06/24/24 documented as of this encounter
--- OUTSIDE RECORDS SUMMARY | 2024-09-02 11:49 | External Medical Summary | Summary of Care ---
Author Name Unknown Organization [facility] Address [address] [place] [address] Phone [phone] Care Team Providers Care Level Designer Name Role Phone Bell Mcqueen MD Primary Care Provide r Reason for Visit * Reason Onset Date Comments Surgery 08/10/2024 Procedure resche duled for 11/05/24 Encounter Details Date Type Department Care Team (Late st Contact Info) Description 08/10/2024 Telephone Access Center, [place] [address] [facility] *DO NOT REMOVE THIS DEPARTMENT* [place] [address] Services, Scheduling [address] [place] [address] Surgery (Procedure rescheduled for 11/05/24) Allergies Active Allergy Reactions Criticality Noted Date Comments Penicillins Other (Please comment),Rash High Eyes swell Pollen 05/03/2022 Wound Dressing Adhesive Rash 05/02/2023 Patient reported Olanzapine Neuro complications (Please comment) 04/09/2024 documented as of this encounter (statuses as of 08/10/2024) Medications Medication Sig Dispensed Refills Start Date [...] albuterol 120 mL 5 11/21/2022 Active Ipratropium [place] 0.02 % Inhalation Solution (Atrovent)Indicatio ns:Moderate persistent [...] EVENING. OR TAKE INSTRUCTED BY [facility] 90 Tablet 3 05/07/2024 [...] Respimat 2.5 MCG/ACT Inhalation Aerosol Solution (Tiotropium [place] Monohydrate)Indicat ions:Moderate persistent asthma without complication INHALE 2 PUFFS BY MOUTH EVERY DAY 12 g 3 07/28/2024 Active ProAir HFA 108 (90 Base) MCG/ACT Inhalation Aerosol SolutionIndications :Moderate persistent asthma with exacerbation Inhale 2 Puffs by mouth every 4 hours as needed for Wheezing. 8.5 g 2 07/29/2024 Active Fluticasone Propionate 50 MCG/ACT Nasal Suspension (Flonase)Indication s:Acute cough Administer 1 [place] into each nostril 2 times a day. 16 mL 1 07/29/2024 Active documented as of this encounter (statuses as of 08/10/2024) Active Problems Problem Noted Date Diagnosed Date [...] rinse after steroid. Test performed by Sameer ETL CONSULTANT CPFT Pleural plaque due to asbestos exposure Restrictive lung disease Overview: In Check dial performed to assess inhaler technique: 12/15/19 Name of inhalers Albuterol Pass: Yes at 60 L/min and Advair Pass: Yes at 60 L/min. Encouraged to to take deep breath, use aero chamber, and rinse after steroid. 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 Garcia being [place]ched[place] for [place] [facility] Ok for ZULEMA to relay message documented in this encounter Plan of Treatment Upcoming Encounters Date Type Department Care Team (Latest Contact Info) Description 4 10:30 AM EDT Laboratory Laboratory [address] [place] [phone] [address] [place] [address] 4 10:30 AM EDT Hem/Onc Treatment Hematology/Onc ology Treatment, [place] [address] [place] [phone] 4 6:30 AM EDT Anticoagulation Centralized Clinical Pharmacy Services, Angela Giles [address] [place] [address] [place] [address] [place] [address] 4 10:30 AM EDT Laboratory Laboratory [address] [place] [address] [place] [address] 4 10:30 AM EDT Hem/Onc Treatment Hematology/Onc ology Treatment, [place] [address] [facility], [place] [phone] 4 8:40 AM EDT Office Visit Rheumatology [address] [place] [phone] Win Nielsen MD [address] [place] [address] [place] [address] 4 10:30 AM EDT Laboratory Laboratory [address] [place] [phone] [address] [place] [address] 4 1:15 PM EDT Office Visit Hematology/Onc ology [facility] [address] [facility] [place] [phone] Ramon Cadet MD [address] [facility] [place] [address] 4 1:45 PM EDT Hem/Onc Treatment Hematology/Onc ology [address] [phone] 4 9:30 AM EST Hospital Encounter [facility] Endoscopy Suite, [facility]AM 1, [address] [place] [address] Domingo Garcia DO [address] [place] [address] 4 9:30 AM EST - 4 10:45 AM EST Surgery [facility] Endoscopy Suite, [facility]AM 1, [address] [place] [address] Domingo Garcia DO [address] [place] [address] ESOPHAGOGASTRODUODENOSCOPY (EGD), FLEXIBLE, TRANSORAL, DIAGNOSTIC 11:20 AM EST Office Visit [address] [place] [phone] Bell Mcqueen MD [address] [place] [address] [place] [address] Scheduled Procedures Name Priority Associated Diagnoses Date/Ti me ESOPHAGOGASTRODUODENOSCOPY ( EGD), FLEXIBLE, TRANSORAL, DIAGNOSTIC Recall Stark's esophagus with dysplasia 11/05/2024 9:30 AM EST COLONOSCOPY FLEXIBLE PROXIMA L DIAGNOSTIC Recall Stark's esophagus with dysplasia 11/05/2024 9:30 AM EST Health Maintenance Due Date Last Done Comments Adult Wellness Visit 2003 Depression Screening 07/12/2021 07/12/2020 CKD PHOS USE SMARTSET 26701 08/21/2022 10/0 02/2021, 07/12/2020, 03/13/2019, Additional history [...] Additional history exists CKD HGB USE SMARTSET 86307 08/04/202508/04, 08/04/2024, 07/28/2024, Additional history exists DTap/Tdap Vaccines (2 - Td or Tdap) 08/19/2027 08/19/2017, 08/20/2008 Pneumococcal Vaccine: 65+ Years Completed 06/23/2015, 05/14/2013, 04/18/2004 Zoster Vaccines Completed 12/02/2020, 08/15/2020 VITAMIN D LEVEL ONCE IN A LIFETIME-USE SMARTSET# [id number] Completed 04/22/2023, 08/28/2021, 07/14/2015 HPV (Gardasil) Vaccine Aged Out No lo nger eligible based on patient's age to complete this topic Hepatitis B Vaccine Aged Out No longe r eligible based on patient's age to complete this topic MENINGOCOCCAL (MENACTRA/MENVEO) Aged Out No longer eligible based on patient's age to complete this topic documented as of this encounter Medical Devices Implanted Type Area [employer] Agile Plm Consultant Device Identifier Shelf Expiration Date Model / Serial / Lot Power Port 8fr Sngl Lumen Plas - [id number] Implanted:Qty: 1 on 02/22/2022 at [facility] BARD : PERIPHERAL VASCULAR [id number] 02/15/2023 [id number] / / [id number] documented as of this encounter Advance Directives * Full Code (Latest Code Status on File) Date Activated Date Inactivated Comments 09/03/2007 7:29 AM 09/03/2007 4:02 PM Care Teams Level Designer Relationship Specialty Start Date End Date Bell Mcqueen MD [address] [place] [address] [place] [address] PCP - General Family Medicine 06/24/24 documented as of this encounter
--- OUTSIDE RECORDS SUMMARY | 2024-09-02 11:49 | External Medical Summary | Summary of Care ---
Author Name Unknown Organization [facility] Address [address] [place] [address] Phone [phone] Care Team Providers Care Metal Molder Name Role Phone Bell Mcqueen MD Primary Care Provide r Reason for Visit * Reason Onset Date Comments Advice 08/11/2024 Encounter Details Date Type Department Care Team (Late st Contact Info) Description 08/11/[address] [phone] Bell Mcqueen MD [address] [place] [address] [place] [phone] Advice Allergies Active Allergy Reactions Criticality Noted Date Comments Penicillins Other (Please comment),Rash High Eyes swell Pollen 05/03/2022 Wound Dressing Adhesive Rash 05/02/2023 Patient reported Olanzapine Neuro complications (Please comment) 04/09/2024 documented as of this encounter (statuses as of 08/11/2024) Medications Medication Sig Dispensed Refills Start Date [...] albuterol 120 mL 5 11/21/2022 Active Ipratropium [place] 0.02 % Inhalation Solution (Atrovent)Indicatio ns:Moderate persistent [...] EVERY EVENING. OR TAKE INSTRUCTED BY [facility] 90 Tablet 3 05/07/2024 [...] Respimat 2.5 MCG/ACT Inhalation Aerosol Solution (Tiotropium [place] Monohydrate)Indicat ions:Moderate persistent asthma without complication INHALE 2 PUFFS BY MOUTH EVERY DAY 12 g 3 07/28/2024 Active ProAir HFA 108 (90 Base) MCG/ACT Inhalation Aerosol SolutionIndications :Moderate persistent asthma with exacerbation Inhale 2 Puffs by mouth every 4 hours as needed for Wheezing. 8.5 g 2 07/29/2024 Active Fluticasone Propionate 50 MCG/ACT Nasal Suspension (Flonase)Indication s:Acute cough Administer 1 [place] into each nostril 2 times a day. 16 mL 1 07/29/2024 Active documented as of this encounter (statuses as of 08/11/2024) Active Problems Problem Noted Date Diagnosed Date [...] rinse after steroid. Test performed by Sameer VINYL DIPPER CPFT Pleural plaque due to asbestos exposure Restrictive lung disease Overview: In Check dial performed to assess inhaler technique: 12/15/19 Name of inhalers Albuterol Pass: Yes at 60 L/min and Advair Pass: Yes at 60 L/min. Encouraged to to take deep breath, use aero chamber, and rinse after steroid. 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 [...] as of this encounter (statuses as of 08/11/2024) Immunizations Name Administration Dates Next Due COVID-19 mRNA, LNP-s, No Pre serve, 2-Dose Series ([employer]) 12/01/2021,01/16/2021,12/26/2020 COVID-19, LNP-s, No Preserve , Ozzy-sucrose, Ages 12+ (Pfizer) 12/01/2021 COVID-19, MRNA-LNP, 23-24, P F, 30 MCG/0.3 mL, 12 YRS AND ABOVE, IM ([facility]) 09/18/2023 Covid-19, Mrna, Lnp-s, [...] Telephone Encounter - Bell Mcqueen MD - 08/11/2024 11:12 AM EDT Pt already has a hospital follow up - can we get a follow up with me in 6-8 weeks * Telephone Encounter - Bell Mcqueen MD - 08/11/2024 11:12 AM EDT ----- Message from Sushil Hutchison DO sent at 08/11/2024 11:02 AM EDT ----- Mt, I am the hospitalist at [facility]. Been taking care of Patrick Roblse over the last couple days. We significantly altered his diuretic regimen. He was seen by cardiology and nephrology here in the hospital. They will both be following him in the office. Nephrology recommended weekly BMP to follow his renal function and electrolytes in the setting of diuresis. Also need to continue his usual INR checks as previous. He will follow-up with his previously coordinated oncology and dermatology appointments. He did get his Procrit injection here in the hospital for this week therefore we will have to get another injection until at least next week. Thank you for continuing his care documented in this encounter Plan of Treatment Upcoming Encounters Date Type Department Care Team (Latest Contact Info) Description 10:30 AM EDT Hem/Onc Treatment Hematology/Onc ology Treatment, [place] [address] [place] [address] 4 6:30 AM EDT Anticoagulation Centralized Clinical Pharmacy Services, Angela Giles [address] [place] [address] [place] [address] [facility], [address] [place] [address] 4 10:30 AM EDT Laboratory Laboratory [address] [place] [phone] [place] [address] 4 10:30 AM EDT Hem/Onc Treatment Hematology/Onc ology [facility], [place] [facility] [phone] 4 9:40 AM EDT Office Visit Family Medicine [address] [place] [phone] PilJuancho keys MD [address] [place] [address] [place] [address] 4 8:40 AM EDT Office Visit Rheumatology [address] [place] [phone] Win Nielsen MD [address] [place] [address] [place] [address] 4 10:30 AM EDT Laboratory Laboratory [address] [place] [phone] [place] [address] 4 1:15 PM EDT Office Visit Hematology/Onc ology [facility] [place] [address] [place] [phone] Ramon Cadet MD [address] [place] [address] 4 1:45 PM EDT Hem/Onc Treatment Hematology/Onc ology Treatment, [place] [address] [place] [address] 4 9:30 AM EST Hospital Encounter [facility]O [facility], Endoscopy Suite, HFAM 1, [address] [place] [address] Domingo Garcia, DO [address] [place] [address] 4 9:30 AM EST - 4 10:45 AM EST Surgery ENDO [facility], Endoscopy Suite, HFAM 1, [address] [place], [place] [phone] Domingo Garcia DO [address] [place], [place] [phone] ESOPHAGOGASTRODUODENOSCOPY (EGD), FLEXIBLE, TRANSORAL, DIAGNOSTIC 5 11:20 AM EST Office Visit [address] [phone] Bell Mcqueen MD [address] [place] [address] [place] [address] Scheduled Procedures Name Priority Associated Diagnoses Date/Ti me ESOPHAGOGASTRODUODENOSCOPY ( EGD), FLEXIBLE, TRANSORAL, DIAGNOSTIC Recall Stark's esophagus with dysplasia 11/05/2024 9:30 AM EST COLONOSCOPY FLEXIBLE PROXIMA L DIAGNOSTIC Recall Stark's esophagus with dysplasia 11/05/2024 9:30 AM EST Health Maintenance Due Date Last Done Comments Adult Wellness Visit 2003 Depression Screening 07/12/2021 07/12/2020 CKD PHOS USE SMARTSET 84433 08/21/2022 10/0 02/2021, 07/12/2020, 03/13/2019, Additional history [...] Additional history exists CKD HGB USE SMARTSET 88701 08/04/202508/04, 08/04/2024, 07/28/2024, Additional history exists DTap/Tdap Vaccines (2 - Td or Tdap) 08/19/2027 08/19/2017, 08/20/2008 Pneumococcal Vaccine: 65+ Years Completed 06/23/2015, 05/14/2013, 04/18/2004 Zoster Vaccines Completed 12/02/2020, 08/15/2020 VITAMIN D LEVEL ONCE IN A LIFETIME-USE SMARTSET# [id number] Completed 04/22/2023, 08/28/2021, 07/14/2015 HPV (Gardasil) Vaccine Aged Out No lo nger eligible based on patient's age to complete this topic Hepatitis B Vaccine Aged Out No longe r eligible based on patient's age to complete this topic MENINGOCOCCAL (MENACTRA/MENVEO) Aged Out No longer eligible based on patient's age to complete this topic documented as of this encounter Medical Devices Implanted Type Area Mainframe Architect Device Identifier Shelf Expiration Date Model / Serial / Lot Power Port 8fr Sngl Lumen Plas - [id number] Implanted:Qty: 1 on 02/22/2022 at [facility] : PERIPHERAL VASCULAR [id number] 02/15/2023 [id number] / / [id number] documented as of this encounter Advance Directives * Full Code (Latest Code Status on File) Date Activated Date Inactivated Comments 09/03/2007 7:29 AM 09/03/2007 4:02 PM Care Teams Metal Molder Relationship Specialty Start Date End Date Bell Mcqueen MD [address] [place] [address] [place] [phone] PCP - General Family Medicine 06/24/24 documented as of this encounter
[2024-09-02] MEDS: CEFEPIME 2000MG 2,000 MG/20 ML SYR IV ONE (12:36)
[2024-09-02] MEDS: metroNIDAZOLE 500 MG/100 ML BAG IV SCH (12:41)
[2024-09-02] MEDS ORDERED: ACETAMINOPHEN 325 MG TAB PO PRN (12:51)
[2024-09-02] MEDS ORDERED: ONDANSETRON INJ 2 MG/ML 2 ML VIAL IV PRN (12:51)
[2024-09-02] MEDS ORDERED: POLYETHYLENE (MIRALAX) 17 GM PACK PO PRN (12:51)
--- NOTE | 2024-09-02 14:30 | Pulmonary Consultation ---
Date of Consultation September 02, 2024 Assessment & Plan (1) Acute worsening of stage 3 chronic kidney disease: (2) Hypoxia: (3) Altered mental status: (4) Acute on chronic diastolic CHF (congestive heart failure): Plan Impression: 89-year-old male with known mitral and aortic valvular heart disease anticoagulated as well as invasive bladder cancer admitted with cough and some blood-tinged phlegm. His BNP is elevated and CT scan appears consistent with fluid overload. He reportedly had a fever at home and his procalcitonin is mildly elevated although the sensitivity in the setting of renal disease is unclear. Recommendations: 1. BNP elevated: Would continue diuresis although the patient's renal function may make this problematic 2. Patient's been initiated on broad-spectrum antibiotics. Do not think he needs Flagyl. Cefepime is likely overkill as he has not had a history of resistant gram-negative rods in the past. His white count is normal. Will de- escalate antibiotics and repeat procalcitonin in a.m. 3. Hemoptysis: Secondary to pulmonary vascular congestion in the setting of full anticoagulation. Nothing to do clinically at this point in time. Patient asks about going home. I do long discussion with the patient, his , and his daughter. We discussed palliative care options. The patient would like to avoid coming back and forth to the hospital. His family realizes that he may be approaching end-of-life and it is difficult for them to view his clinical deterioration. They have not met with palliative care previously but are open to home hospice. A consult for palliative care has been placed. Recommend consulting case management to have home hospice agencies meet with family and provide additional information prior to proceeding. A total of 55 minutes critical care time was spent in discussing end-of-life issues with patient and family. History of Present Illness Attending Physician: Winnie Seay MD History of Present Illness Asked by hospitalist to assist in evaluation management this patient admitted with hypoxemic respiratory failure due to fluid overload with scant hemoptysis. History is obtained from discussion with the patient and family at bedside as well as review of the electronic medical record. Patient is an 89-year-old male with a history of prosthetic and moderate MS and chronic kidney disease with chronic arthritis on chronic prednisone therapy as well as bladder cancer who presented to the emergency room due to the fevers at home as well as increasing shortness of breath. He reports some scant blood- tinged to mopped assist. He is intermittently confused and according to his he is declining clinically. In the emergency room he was administered broad-spectrum antibiotics as well as given orders for transfusion due to chronic anemia. His creatinine was worse from baseline. When I evaluated the patient he requests that he be sent home. Family has been discussing his generalized decline and is considering palliative options although they have never met with palliative care previously. The patient does note some lower extremity edema. Family reports the patient is not interested in pursuing renal replacement therapy should that become necessary. Allergies Allergy/AdvReac Type Severity Reaction Status Date / Time Penicillins Allergy Unknown RASH/EL-ORBITAL Verified 09/02/24 11:48 EDEMA olanzapine [From Zyprexa] AdvReac Severe Agitated Verified 09/02/24 09:09 zolpidem [From Ambien] AdvReac Severe Hallucinati Unverified 09/02/24 09:09 ng Home Medications Medication Instructions Recorded Confirmed Type esomeprazole magnesium 40 mg 40 mg PO BID 03/25/19 09/02/24 History capsule,delayed release (Nexium) prednisone 5 mg tablet 5 mg PO QAM 03/25/19 09/02/24 History warfarin 5 mg tablet 2.5 mg PO 5XWK 03/25/19 09/02/24 History ferrous sulfate 325 mg (65 mg 325 mg PO QAM 04/25/21 09/02/24 History iron) tablet tamsulosin 0.4 mg capsule 0.4 mg PO HS 01/23/24 09/02/24 History cholecalciferol (vitamin D3) 25 25 mcg PO QAM 03/31/24 09/02/24 History mcg (1,000 unit) tablet (Vitamin D3) cyanocobalamin (vitamin B-12) 1,000 mcg PO QAM 03/31/24 09/02/24 History 1,000 mcg tablet (Vitamin B-12) rosuvastatin 10 mg tablet 10 mg PO QPM 05/18/24 09/02/24 History albuterol sulfate 90 mcg/actuation 2 puff inhalation Q4H PRN 08/08/24 09/02/24 History aerosol inhaler Shortness Of Breath Or Wheezing coenzyme Q10 100 mg capsule 200 mg PO DAILY 08/08/24 09/02/24 History (CoQ-10) fluticasone propionate 50 1 spray intranasal DAILY 08/08/24 09/02/24 History mcg/actuation nasal spray,suspension ipratropium bromide 0.02 % 2.5 ml inhalation QID PRN 08/08/24 09/02/24 History solution for inhalation Shortness Of Breath Or Wheezing magnesium 250 mg tablet 250 mg PO DAILY 08/08/24 09/02/24 History potassium chloride 10 mEq 10 meq PO DAILY #30 tabs 08/11/24 09/02/24 Rx tablet,extended release(part/cryst) spironolactone 25 mg tablet 12.5 mg (1/2 x 25 mg) PO QAM #30 08/11/24 09/02/24 Rx tabs torsemide 10 mg tablet 20 mg PO QAM 08/26/24 09/02/24 History levothyroxine 150 mcg tablet 150 mcg PO DAILYBB 09/02/24 09/02/24 History Patient History Medical History Restrictive lung disease Enlarged prostate Elevated troponin level (05/18/24) notes elevated troponin level ad mn ed visit. Reports she did message cardiology regarding and no response as of current. Anemia reports iron deficiency anemia. Asthma not sure on official dx details. History of respiratory failure (12/2023) History of encephalopathy (03/2024) Hx of bladder cancer (05/2021) TURBT, chemo + radiation Nocturnal hypoxemia oxygen prn 2L [place] (hard of hearing) High cholesterol History of elevated PSA Osteoarthritis CKD (chronic kidney disease), stage III History of pulmonary edema History of pericarditis (2022) Moderate mitral stenosis "some calcification there" - told valve was working okay. History of RSV infection (12/2023) and hx respiratory failure Dec 2023 History of pneumonia (12/2023) Hypothyroid Persistent atrial fibrillation History of CHF (congestive heart failure) (03/2024) Cellulitis dx 05/18/24 left leg - de ed. Hematuria current: messaged urology regarding. Reports was told do colonoscopy/egd first then will follow up. Hx cystoscopy march 2024 and was clear. 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 History of atrial flutter Restless legs syndrome Dyslipidemia Carotid artery disease pt is unsure about this. Nothing has ever been talked about regarding. Spinal stenosis of lumbar region History of paroxysmal supraventricular tachycardia BPH (benign prostatic hypertrophy) Diverticular disease of colon COPD (chronic obstructive pulmonary disease) pt not sure about official dx of. Hypertension Surgical History History of aortic valve replacement (2003) History of mitral valve repair (2003) [facility]. History of cardiac radiofrequency ablation x2 most recent approx 2013. History of right cataract surgery History of left cataract surgery Pacemaker TACHY-KURT SYNDROME. ALSO HX OF A-FIB. LAST CHECKED within 2023 - [facility] History of bladder surgery TURBT 05/29/2021 [facility] History of esophagogastroduodenoscopy (EGD) MULTIPLE History of tonsillectomy History of total knee replacement LEFT KNEE History of herniorrhaphy History of surgery MOHS PROCEDURE ON FACE History of colonoscopy History of bowel resection S/T DIVERTICULITIS History of arthroscopy B/L SHOULDERS Status post inguinal hernia repair Family History Brother Diabetes Cancer Esophageal Cancer Mother Colorectal cancer Lung cancer Social History (Updated 09/02/24 @ 11:10 by Diana Johnson PA-C) Smoking Status: Never smoker Tobacco Type: Smokeless Tobacco (Dip or Chew) Second Hand Exposure: No; Do You Dip or Chew Tobacco: Yes (currently not using); Hx Alcohol Use: No Hx Substance Use: No Preferred Language: Frisian Communication Ability: Impaired Communication Ability Comment: Pt confused, daughter providing history Visual Impairment: Limited Hearing Ability: Hard of Hearing [employer] Vehicle Supervisor Required: No Beliefs That Will Affect Care: None marital status: Current Living Situation: Spouse Current Living Situation Comment: home with current occupational status: retired Other Information That Helps Us Care for You: No Feels Safe at Home: Yes Safety Concerns: Feels Safe At This Time Diet: regular caffeine: No during the past year weight has: remained stable Physical Activity Frequency: Other Physical Activity Frequency Comment: "Does alot of yard work" Review of Systems Review of Systems: Please refer to admission H&P. Unreliable from the patient due to his altered sensorium Physical Exam Neck: trachea midline, no thyromegaly Respiratory: no respiratory distress, no labored breathing, no cough and not tachypneic Auscultation: + crackles and + wheezes Cardiovascular: Rate/Rhythm: regular rate and regular rhythm Heart Sounds: normal S1, normal S2 and + murmur Extremities: no edema Gastrointestinal (Abdomen): normal bowel sounds, soft, nontender, no hepatosplenomegaly Musculoskeletal: Extremities: extremities normal to inspection Skin: no rashes, warm and dry Lymphatic: no cervical lymphadenopathy Results & Data Results & Data Vital Signs (Past 12 Hours) Vital Signs Temp Pulse Pulse Resp BP Pulse Ox O2 Del Method 09/02/24 12:35 85 09/02/24 11:30 Nasal Cannula 09/02/24 11:12 86 21 93/71 L 95 09/02/24 11:12 91 H 18 96 Room Air 09/02/24 09:33 97 H 19 100/62 97 09/02/24 09:00 87 22 95/54 L 92 Nasal Cannula 09/02/24 08:30 86 20 96/65 L 89 L Room Air 09/02/24 08:27 85 09/02/24 08:06 86 20 92/49 L 90 09/02/24 07:52 90 Room Air 09/02/24 07:35 36.0 C L 20 93/54 L O2 Flow Rate 09/02/24 12:35 09/02/24 11:30 2 09/02/24 11:12 09/02/24 11:12 09/02/24 09:33 2 09/02/24 09:00 2 09/02/24 08:30 09/02/24 08:27 09/02/24 08:06 09/02/24 07:52 09/02/24 07:35 Critical Care Results & Data Vital Signs (Past 12 Hours) Vital Signs Temp Pulse Pulse Resp BP Pulse Ox O2 Del Method 09/02/24 12:35 85 09/02/24 11:30 Nasal Cannula 09/02/24 11:12 86 21 93/71 L 95 09/02/24 11:12 91 H 18 96 Room Air 09/02/24 09:33 97 H 19 100/62 97 09/02/24 09:00 87 22 95/54 L 92 Nasal Cannula 09/02/24 08:30 86 20 96/65 L 89 L Room Air 09/02/24 08:27 85 09/02/24 08:06 86 20 92/49 L 90 09/02/24 07:52 90 Room Air 09/02/24 07:35 36.0 C L 20 93/54 L O2 Flow Rate 09/02/24 12:35 09/02/24 11:30 2 09/02/24 11:12 09/02/24 11:12 09/02/24 09:33 2 09/02/24 09:00 2 09/02/24 08:30 09/02/24 08:27 09/02/24 08:06 09/02/24 07:52 09/02/24 07:35 Lab & Micro Results (Past 24 Hours) RBC 2.58 M/uL (4.70-6.10) L 09/02/24 WBC 8.43 K/ul (4.8-10.8) 09/02/24 Hgb 6.9 g/dl (14.0-18.0) L* 09/02/24 Hct 25.0 % (42.0-52.0) L 09/02/24 MCV 96.9 fL (80.0-100.0) 09/02/24 MCH 26.7 pg (25.0-34.0) 09/02/24 MCHC 27.6 g/dL (32.0-36.0) L 09/02/24 RDW Standard Deviation 75.1 fL (36.4-46.3) H 09/02/24 RDW Coefficient of Variation 22.0 % (11.5-14.5) H 09/02/24 Plt Count 88 K/uL (130-400) L 09/02/24 MPV 10.5 fL (9.4-12.4) 09/02/24 Neutrophils (%) (Auto) 87.3 % 09/02/24 Lymphocytes (%) (Auto) 4.7 % 09/02/24 Monocytes # (Auto) 0.59 K/uL (0.11-0.59) 09/02/24 Eosinophils # (Auto) 0.01 K/uL (0.00-0.50) 09/02/24 Immature Granulocyte % (Auto) 0.5 % 09/02/24 Neutrophils # (Auto) 7.36 K/uL (1.40-6.50) H 09/02/24 Lymphocytes # (Auto) 0.40 K/uL (1.20-3.40) L 09/02/24 Monocytes # (Auto) 0.59 K/uL (0.11-0.59) 09/02/24 Eosinophils # (Auto) 0.01 K/uL (0.00-0.50) 09/02/24 Basophils # (Auto) 0.03 K/uL (0.00-0.20) 09/02/24 Immature Granulocyte # (Auto) 0.04 K/uL (0.01-0.20) 4 Polychromasia 1+ 09/02/24 Anisocytosis Present 09/02/24 Tear Drop Cells 2+ 09/02/24 Ovalocytes 1+ 09/02/24 Na 135 mmol/L (136-145) L 09/02/24 K 4.5 mmol/L (3.5-5.1) 09/02/24 Cl 100 mmol/L (98-107) 09/02/24 CO2 26 mmol/L (21-32) 09/02/24 Anion Gap 9 (3-11) 09/02/24 BUN 64 mg/dl (6-23) H 09/02/24 Creatinine 2.16 mg/dl (0.6-1.4) H 09/02/24 BUN/Creatinine Ratio 29.6 (10-20) H 09/02/24 Glu 100 mg/dl (70-99(Fasting)) H 09/02/24 Ca 8.4 mg/dl (8.6-10.3) L 09/02/24 Total Bilirubin 1.4 mg/dl (0.2-1.0) H 09/02/24 AST 16 U/L (13-39) 09/02/24 ALT 7 U/L (7-52) 09/02/24 Alkaline Phosphatase 65 U/L (34-104) 09/02/24 TP 5.8 gm/dl (6.0-8.3) L 09/02/24 Albumin 3.4 gm/dl (3.4-5.0) 09/02/24 Globulin 2.4 gm/dl (2.5-4.0) L 09/02/24 Albumin/Globulin Ratio 1.4 (0.9-2) 09/02/24 Calcium Level 8.4 mg/dl (8.6-10.3) L 09/02/24 08:13 Prothromb Time International Ratio 2.6 (0.9-1.1) H 09/02/24 08 :13 Venous Blood pH 7.41 (7.36-7.41) 09/02/24 08:13 Venous Blood Partial Pressure CO2 41 mmHg (38-50) 09/02/24 08:1 3 Venous Blood Partial Pressure O2 30 mmHg 09/02/24 08:13 Venous Blood HCO3 26 mmol/L 09/02/24 08:13 Venous Blood Base Excess 1.2 mEq/L 09/02/24 08:13 Venous Blood Oxygen Saturation < 60.0 % 09/02/24 08:13 Diagnostic Findings (Past 24 Hours) Chest X-Ray 09/02/24 07:44 XR chest 1V portable CLINICAL HISTORY: Dyspnea COMPARISON STUDY: Chest CT April 01, 2024. Chest radiograph August 08, 2024. FINDINGS: Right internal jugular [id number], left leg and pacer, median sternotomy wires and prosthetic cardiac valves are again noted. Cardiomegaly is unchanged. Pulmonary edema is noted. This is slightly improved when compared to prior exam. There is no pneumothorax. There are small bilateral pleural effusions. Right basilar opacity is present. IMPRESSION: 1. Cardiomegaly with interstitial pulmonary edema and small bilateral pleural effusions . 2. Right basilar opacity which may be related to pulmonary edema. Superimposed pneumonia could appear similar. Radiographic follow-up is recommended. ACT 112: Negative or not required by law. Electronically signed by: Raza Robert M.D. 09/02/2024 8:[address] 09/02/24 10:42 CT chest diagnostic wo con CLINICAL HISTORY: hypoxia, pulm edema vs pna TECHNIQUE: Multidetector row helical CT of the chest was performed. Coronal and sagittal reformations were obtained. Automated dose lowering techniques and/or adjustment according to patient size were utilized for this exam. CT DOSE: 524.21 mGy.cm Comparison: Comparison is made to CT chest 04/01/2024 FINDINGS: Lungs and pleura: Trace bilateral pleural effusions are seen. Faint groundglass opacities are in the bilateral lower lungs. Heart and pericardium: Cardiomegaly is seen with biatrial enlargement. Aortic valvular prosthesis is seen. Vessels: Severe atherosclerotic changes in the aorta and coronary arteries. Pulmonary trunk measures 37 mm in diameter. Mediastinum and karson: Unremarkable. Chest wall and lower neck: Unremarkable. Abdomen: A hiatal hernia is seen. Bones: Degenerative changes in the thoracic spine. IMPRESSION: 1. Bilateral airspace opacities may represent pneumonia or alveolar edema. 2. Pulmonary hypertension and cardiomegaly. 3. Small bilateral pleural effusions. ACT 112: Negative or not required by law. Electronically signed by: Sebastian Nicole M.D. 09/02/2024 11:22 AM I & O Totals 24 Hours 09/01/24 09/02/24 09/03/24 06:59 06:59 06:59 Intake Total 449.65 / 449.65 Balance 449.65 / 449.65 Cumulative 09/02/24 07:30 thru 09/02/24 13:55 Intake Total 449.65 Balance 449.65 RT Ventilator Mngmt (Last Documented) Ventilator Ordered Settings Respiratory Rate 21 09/02/24 11:12 Ventilator - PT Measurements Respiratory Rate 21 PG Care Time/CCT Total # of Minutes Spent Total Time Spent with Patient: Total time spent is greater than 50% in coordination of care (as documented) at patient's floor/unit and/or counseling patient: Coding Level of Care Code 39163 CRITICAL CARE 1ST 30-74M Diagnoses Acute worsening of stage 3 chronic kidney disease N18.30 Hypoxia R09.02 Altered mental status R41.82 Acute on chronic diastolic CHF (congestive heart failure) I50.33
--- NOTE | 2024-09-02 14:37 | Nephrology Consultation ---
Date of Consultation September 02, 2024 Assessment & Plan (1) Acute worsening of stage 3 chronic kidney disease: Cr 2.16 His Baseline Cr ~ 1.4-1.7 a/w Cr 1.6 - Likley 2/ Prerenal /ATN - Continue to hold diuretic , however he can get 20 mg IV lasix midway during blood trasfusion. - Daily BMP/ Input and output w. daily weights prefebly on the same scale. - Daily assesment of Volume , to resume Diuretics I would keep him comfortable than worry about the Cr number,Family is meeting Palliative care team to set goals of care. -Monitor renal function with daily BMP (2) Bilateral pneumonia: tx with Renally dosed IV cefepime. - Pulmonary consult (3) Anemia of chronic disease: pt with known gastric polyp He is on regular intermittent procrit as well as IV venofer as outpt -HB is low than 7.0 Agree w/ 1 unit PRBC with lasix cover, As per HPI he got venofer on 08/27, and Procrit last saturday. - (4) Acute on chronic diastolic CHF (congestive heart failure): Very complex cardiac history , He appears to be more on the dry side on exam His torsemide was increased to 20mg daily as OP, -hold torsemide, aldactone and KCL for now, Given his poor Cardiac reserve he will need starting this fairly soon. Daily assesment w/ weight. Daily weights, strict I and O History of Present Illness Reason for Consultation: Acute kidney injury on CKD, Volume management. Attending Physician: Winnie Seay MD History of Present Illness 89-year-old male w/ P brought in ED by family due to increasing cough with confusion, blood tinged sputum, and subjective fevers. ER labs were significant for Hb 6.9 (had received venofer last , Hb was 7.7 at the time per dtr). INR 2.6, Cr 2.16 (baseline around 1.6). T bili 1.4 (better than baseline),with elevated procal Resp biofire neg. MRSA pending. 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, p ersistent atrial fibrillation, tachybradycardia syndrome status post pacemaker implant in 2017, HTN, HLD, CKD stage IIIb, chronic arthritic disease on chronic prednisone, COPD with pleural plaque and bladder carcinoma Allergies Allergy/AdvReac Type Severity Reaction Status Date / Time Penicillins Allergy Unknown RASH/EL-ORBITAL Verified 09/02/24 11:48 EDEMA olanzapine [From Zyprexa] AdvReac Severe Agitated Verified 09/02/24 09:09 zolpidem [From Ambien] AdvReac Severe Hallucinati Unverified 09/02/24 09:09 ng Home Medications Medication Instructions Recorded Confirmed Type esomeprazole magnesium 40 mg 40 mg PO BID 03/25/19 09/02/24 History capsule,delayed release (Nexium) prednisone 5 mg tablet 5 mg PO QAM 03/25/19 09/02/24 History warfarin 5 mg tablet 2.5 mg PO [id number] 03/25/19 09/02/24 History ferrous sulfate 325 mg (65 mg 325 mg PO QAM 04/25/21 09/02/24 History iron) tablet tamsulosin 0.4 mg capsule 0.4 mg PO HS 01/23/24 09/02/24 History cholecalciferol (vitamin D3) 25 25 mcg PO QAM 03/31/24 09/02/24 History mcg (1,000 unit) tablet (Vitamin D3) cyanocobalamin (vitamin B-12) 1,000 mcg PO QAM 03/31/24 09/02/24 History 1,000 mcg tablet (Vitamin B-12) rosuvastatin 10 mg tablet 10 mg PO QPM 05/18/24 09/02/24 History albuterol sulfate 90 mcg/actuation 2 puff inhalation Q4H PRN 08/08/24 09/02/24 History aerosol inhaler Shortness Of Breath Or Wheezing coenzyme Q10 100 mg capsule 200 mg PO DAILY 08/08/24 09/02/24 History (CoQ-10) fluticasone propionate 50 1 spray intranasal DAILY 08/08/24 09/02/24 History mcg/actuation nasal spray,suspension ipratropium bromide 0.02 % 2.5 ml inhalation QID PRN 08/08/24 09/02/24 History solution for inhalation Shortness Of Breath Or Wheezing magnesium 250 mg tablet 250 mg PO DAILY 08/08/24 09/02/24 History potassium chloride 10 mEq 10 meq PO DAILY #30 tabs 08/11/24 09/02/24 Rx tablet,extended release(part/cryst) spironolactone 25 mg tablet 12.5 mg (1/2 x 25 mg) PO QAM #30 08/11/24 09/02/24 Rx tabs torsemide 10 mg tablet 20 mg PO QAM 08/26/24 09/02/24 History levothyroxine 150 mcg tablet 150 mcg PO DAILYBB 09/02/24 09/02/24 History Patient History Medical History Restrictive lung disease Enlarged prostate Elevated troponin level (05/18/24) notes elevated troponin level ad mn ed visit. Reports she did message cardiology regarding and no response as of current. Anemia reports iron deficiency anemia. Asthma not sure on official dx details. History of respiratory failure (12/2023) History of encephalopathy (03/2024) Hx of bladder cancer (05/2021) TURBT, chemo + radiation Nocturnal hypoxemia oxygen prn 2L [place] (hard of hearing) High cholesterol History of elevated PSA Osteoarthritis CKD (chronic kidney disease), stage III History of pulmonary edema History of pericarditis (2022) Moderate mitral stenosis "some calcification there" - told valve was working okay. History of RSV infection (12/2023) and hx respiratory failure Dec 2023 History of pneumonia (12/2023) Hypothyroid Persistent atrial fibrillation History of CHF (congestive heart failure) (03/2024) Cellulitis dx 05/18/24 left leg - oh ed. Hematuria current: messaged urology regarding. Reports was told do colonoscopy/egd first then will follow up. Hx cystoscopy march 2024 and was clear. History of basal cell carcinoma History of rectal fissure History of COVID-19 DX'D 10/2020 [facility]RU [facility] [place]-SOB, PRODUCTIVE COUGH, BODY ACHES, FEVER-RECOVERED AT HOME-SYMPTOMS RESOLVED SOB (shortness of breath) on exertion Arthritis Anticoagulated on Coumadin Heart disease Stark's esophagus GERD (gastroesophageal reflux disease) History of pulmonary embolism (2013) FOLLOWING SHOULDER SURGERY APPROX 2013 -NO ISSUES SINCE Tachy-kurt syndrome part of reason for pacemaker, pt unsure if occurs at current. History of atrial flutter Restless legs syndrome Dyslipidemia Carotid artery disease pt is unsure about this. Nothing has ever been talked about regarding. Spinal stenosis of lumbar region History of paroxysmal supraventricular tachycardia BPH (benign prostatic hypertrophy) Diverticular disease of colon COPD (chronic obstructive pulmonary disease) pt not sure about official dx of. Hypertension Surgical History History of aortic valve replacement (2003) History of mitral valve repair (2003) [facility]. History of cardiac radiofrequency ablation x2 most recent approx 2013. History of right cataract surgery History of left cataract surgery Pacemaker TACHY-KURT SYNDROME. ALSO HX OF A-FIB. LAST CHECKED within 2023 - [facility] History of bladder surgery TURBT 05/29/2021 [facility] History of esophagogastroduodenoscopy (EGD) MULTIPLE History of tonsillectomy History of total knee replacement LEFT KNEE History of herniorrhaphy History of surgery MOHS PROCEDURE ON FACE History of colonoscopy History of bowel resection S/T DIVERTICULITIS History of arthroscopy B/L SHOULDERS Status post inguinal hernia repair Family History Brother Diabetes Cancer Esophageal Cancer Mother Colorectal cancer Lung cancer Social History (Updated 09/02/24 @ 11:10 by Diana Johnson PA-C) Smoking Status: Never smoker Tobacco Type: Smokeless Tobacco (Dip or Chew) Second Hand Exposure: No; Do You Dip or Chew Tobacco: Yes (currently not using); Hx Alcohol Use: No Hx Substance Use: No Preferred Language: Yi Communication Ability: Impaired Communication Ability Comment: Pt confused, daughter providing history Visual Impairment: Limited Hearing Ability: Hard of Hearing Prototype Technician Required: No Beliefs That Will Affect Care: None marital status: Current Living Situation: Spouse Current Living Situation Comment: home with current occupational status: retired Other Information That Helps Us Care for You: No Feels Safe at Home: Yes Safety Concerns: Feels Safe At This Time Diet: regular caffeine: No during the past year weight has: remained stable Physical Activity Frequency: Other Physical Activity Frequency Comment: "Does alot of yard work" Review of Systems 2 Review of Systems: All systems reviewed & are unremarkable except as noted in HPI & below Physical Exam 2 Physical Exam: GENERAL: Alert and oriented on 2L [place] O2 /frail/weak/ill appearing. HEENT: + pallor, no icterus.. Oral mucosa dry. NECK: No JVD, no neck masses. HEART: S1 and S2 heard. irregular rate and rhythm. + murmur, no gallop. RESPIRATORY SYSTEM: occ b/l rhonchi, b/l crackles. ABDOMEN: Soft, bowel sounds present, nontender, no distention.. EXTREMITIES: RLE 1+ edema, LLE trace edema, no erythema seen. Results & Data Vital Signs (Past 12 Hours) Vital Signs Temp Pulse Pulse Resp BP Pulse Ox O2 Del Method 09/02/24 12:35 85 09/02/24 11:30 Nasal Cannula 09/02/24 11:12 86 21 93/71 L 95 09/02/24 11:12 91 H 18 96 Room Air 09/02/24 09:33 97 H 19 100/62 97 09/02/24 09:00 87 22 95/54 L 92 Nasal Cannula 09/02/24 08:30 86 20 96/65 L 89 L Room Air 09/02/24 08:27 85 09/02/24 08:06 86 20 92/49 L 90 09/02/24 07:52 90 Room Air 09/02/24 07:35 36.0 C L 20 93/54 L O2 Flow Rate 09/02/24 12:35 09/02/24 11:30 2 09/02/24 11:12 09/02/24 11:12 09/02/24 09:33 2 09/02/24 09:00 2 09/02/24 08:30 09/02/24 08:27 09/02/24 08:06 09/02/24 07:52 09/02/24 07:35 Laboratory Results 09/02/24 08:13 09/02/24 08:13
[2024-09-02] MEDS: ALBUT/IPRATROP 3MG/0.5MG NEB 3 ML VIAL NEB SCH (15:34)
[2024-09-02] MEDS: FUROSEMIDE INJ 20 MG/2 ML VIAL IV SCH (19:39)
[2024-09-02] MEDS: cefUROXime axetil 500 MG TAB PO SCH (19:43)
[2024-09-02] MEDS: TAMSULOSIN HCL 0.4 MG CAP PO SCH (19:44)
[2024-09-02] MEDS: ROSUVASTATIN CALCIUM 10 MG TAB PO SCH (19:44)
[2024-09-02] MEDS: PANTOprazole 40 MG TAB PO SCH (19:45)
[2024-09-02 21:49] LABS: Hematocrit (blood only) 26.5 % (42.0-52.0); Hemoglobin 7.6 g/dl (14.0-18.0)
[2024-09-02] MEDS: ALBUMIN 25% 12.5 GM/50 ML VIAL IV ONE ×2 (21:59→23:19)
[2024-09-02] MEDS: dexAMETHasone 4 MG in SYRINGE 0 ML IV ONE (21:59)
[2024-09-02] MEDS: FUROSEMIDE INJ 20 MG/2 ML VIAL IV ONE (22:28)
[2024-09-02 23:03] LABS: Appearance Urine Clear (Clear); Bacteria Urine Automated None Seen (None Seen); Bilirubin Urine Negative (Negative); Blood Urine Trace (Negative); Color Urine Yellow; Epithelial Cell Urine Auto 0-2 /hpf (0-2); Glucose Urine UA Negative (Negative); Ketones Urine Negative (Negative); Leukocyte Esterase Urine Negative (Negative); Nitrite Urine Negative (Negative); Protein Urine Negative (Negative); Specific Gravity Urine 1.011 (1.000-1.030); Urobilinogen Urine Negative (Negative); WBC Urine Automated 0-5 /hpf (0-5); pH Urine 5.5 (4.5-7.5)
[2024-09-02] MEDS: MELATONIN 3 MG TAB PO PRN (23:34)
[2024-09-03] MEDS ORDERED: CEFEPIME 1000MG 1,000 MG/10 ML SYR IV SCH
[2024-09-03] MEDS: LEVOTHYROXINE SODIUM 150 MCG TABLET PO SCH (06:01)
[2024-09-03 06:33] LABS: Hematocrit (blood only) 21.6 % (42.0-52.0); Hemoglobin 6.4 g/dl (14.0-18.0); Mean Corpuscular Hemoglobin 27.7 pg (25.0-34.0); Mean Corpuscular Hgb Conc 29.6 g/dL (32.0-36.0); Mean Corpuscular Volume 93.5 fL (80.0-100.0); Mean Platelet Volume 11.1 fL (9.4-12.4); Platelet Count 78 K/uL (130-400); RDW Coefficient of Variation 20.6 % (11.5-14.5); RDW Standard Deviation 68.7 fL (36.4-46.3); Red Blood Count 2.31 M/uL (4.70-6.10); White Blood Count 4.18 K/ul (4.8-10.8)
[2024-09-03 06:35] LABS: Albumin Globulin Ratio 1.5 (0.9-2); Albumin Level 3.2 gm/dl (3.4-5.0); BUN Creatinine Ratio 33.3 (10-20); Bilirubin,Total 1.9 mg/dl (0.2-1.0); Creatinine Clr Calc Pharmacy 23.4 ml/min; Globulin 2.2 gm/dl (2.5-4.0); Magnesium 2.2 mg/dl (1.7-2.4); Total Protein 5.4 gm/dl (6.0-8.3)
[2024-09-03] MEDS ORDERED: SODIUM CHLORIDE 0.9% 250 ML IV PRN ×2 (06:40→09:34)
[2024-09-03 06:49] LABS: Anisocytosis Present; Basophilic Stippling 1+; Immature Granulocytes # (auto) 0.02 K/uL (0.01-0.20); Immature Granulocytes % (auto) 0.5 %; Lymphocytes # (auto) 0.15 K/uL (1.20-3.40); Lymphocytes % (auto) 3.6 %; Monocytes # (auto) 0.07 K/uL (0.11-0.59); Monocytes % (auto) 1.7 %; Neutrophils # (auto) 3.94 K/uL (1.40-6.50); Neutrophils % (auto) 94.2 %; Ovalocytes 1+; Polychromasia 2+; Reticulocyte % 6.48 % (0.50-2.00); Tear Drop Cells 1+; Toxic Granulation 1+
[2024-09-03 06:57] LABS: INR 2.1 (0.9-1.1); Prothrombin Time 21.2 Seconds (9.0-12.0)
[2024-09-03] MEDS: FUROSEMIDE INJ 20 MG/2 ML VIAL IV ONE ×2 (07:31→10:07)
--- NOTE | 2024-09-03 08:03 | Pulmonology Progress Note ---
Date of Service September 03, 2024 Assessment & Plan (1) Acute worsening of stage 3 chronic kidney disease: (2) Hypoxia: (3) Altered mental status: (4) Acute on chronic diastolic CHF (congestive heart failure): Plan Impression: 89-year-old male with known mitral and aortic valvular heart disease anticoagulated as well as invasive bladder cancer admitted with cough and some blood-tinged phlegm. His BNP is elevated and CT scan appears consistent with fluid overload. He reportedly had a fever at home and his procalcitonin is mildly elevated although the sensitivity in the setting of renal disease is unclear. Recommendations: 1. Heart failure with pulmonary edema: Improved with diuretics. Would continue diuretics under the direction of cardiology, primary admitting service, and nephrology. 2. Not particularly suspicious for pneumonia given rapid improvement in cl inical symptoms. Patient is currently on Ceftin and would complete 5-day course. 3. Hemoptysis: Resolved 4. Patient family working on meeting with palliative care. His respiratory issues appear to have significantly improved/resolved. Pulmonary will sign off. Feel free to contact us with questions or concerns Admission and Anticipated Discharge Date Admission Date: September 02, 2024 Subjective Patient seen and examined. EMR reviewed. Discussed with patient and at bedside. Patient believes he is feeling better. He is now off oxygen. He is coughing but not producing any phlegm. He has not had any additional hemoptysis. They have not yet met with palliative care. He did receive a transfusion yesterday but unfortunately his hemoglobin continues to decrease and he is now pancytopenic Review of Systems Review of Systems: All systems reviewed & are unremarkable except as noted in Subjective Physical Exam Neck: trachea midline, no thyromegaly Respiratory: no respiratory distress, no labored breathing, no cough and not tachypneic Auscultation: + crackles; no wheezes Cardiovascular: Rate/Rhythm: regular rate and regular rhythm Heart Sounds: normal S1, normal S2 and + murmur Extremities: no edema Gastrointestinal (Abdomen): normal bowel sounds, soft, nontender, no hepatosplenomegaly Musculoskeletal: Extremities: extremities normal to inspection Skin: no rashes, warm and dry Lymphatic: no cervical lymphadenopathy Results & Data Results & Data Vital Signs (Past 12 Hours) Vital Signs Temp Pulse Pulse Resp BP BP Pulse Ox 09/03/24 07:04 36.6 C 53 L 20 104/55 L 100 09/03/24 06:59 104/55 L 09/03/24 06:54 63 16 98 09/03/24 06:30 90/50 L 09/03/24 03:54 36.4 C L 61 20 124/92 100 09/02/24 23:54 81 09/02/24 23:52 111/48 L 09/02/24 23:09 36.6 C 64 20 111/61 96 09/02/24 22:57 86 16 88/49 L 96 09/02/24 21:59 64 18 105/56 L 96 09/02/24 20:51 36.6 C 64 20 95/60 L O2 Del Method O2 Flow Rate 09/03/24 07:04 Room Air 09/03/24 06:59 09/03/24 06:54 Room Air 09/03/24 06:30 09/03/24 03:54 Nasal Cannula 3 09/02/24 23:54 09/02/24 23:52 09/02/24 23:09 Nasal Cannula 3 09/02/24 22:57 Nasal Cannula 2 09/02/24 21:59 Nasal Cannula 2 09/02/24 20:51 Critical Care Results & Data Vital Signs (Past 12 Hours) Vital Signs Temp Pulse Pulse Resp BP BP Pulse Ox 09/03/24 07:04 36.6 C 53 L 20 104/55 L 100 09/03/24 06:59 104/55 L 09/03/24 06:54 63 16 98 09/03/24 06:30 90/50 L 09/03/24 03:54 36.4 C L 61 20 124/92 100 09/02/24 23:54 81 09/02/24 23:52 111/48 L 09/02/24 23:09 36.6 C 64 20 111/61 96 09/02/24 22:57 86 16 88/49 L 96 09/02/24 21:59 64 18 105/56 L 96 09/02/24 20:51 36.6 C 64 20 95/60 L O2 Del Method O2 Flow Rate 09/03/24 07:04 Room Air 09/03/24 06:59 09/03/24 06:54 Room Air 09/03/24 06:30 09/03/24 03:54 Nasal Cannula 3 09/02/24 23:54 09/02/24 23:52 09/02/24 23:09 Nasal Cannula 3 09/02/24 22:57 Nasal Cannula 2 09/02/24 21:59 Nasal Cannula 2 09/02/24 20:51 Lab & Micro Results (Past 24 Hours) RBC 2.31 M/uL (4.70-6.10) L 09/03/24 WBC 4.18 K/ul (4.8-10.8) L 09/03/24 Hgb 6.4 g/dl (14.0-18.0) L* 09/03/24 Hct 21.6 % (42.0-52.0) L 09/03/24 MCV 93.5 fL (80.0-100.0) 09/03/24 MCH 27.7 pg (25.0-34.0) 09/03/24 MCHC 29.6 g/dL (32.0-36.0) L 09/03/24 RDW Standard Deviation 68.7 fL (36.4-46.3) H 09/03/24 RDW Coefficient of Variation 20.6 % (11.5-14.5) H 09/03/24 Plt Count 78 K/uL (130-400) L 09/03/24 MPV 11.1 fL (9.4-12.4) 09/03/24 Neutrophils (%) (Auto) 94.2 % 09/03/24 Lymphocytes (%) (Auto) 3.6 % 09/03/24 Monocytes # (Auto) 0.07 K/uL (0.11-0.59) L 09/03/24 Eosinophils # (Auto) 0.00 K/uL (0.00-0.50) 09/03/24 Immature Granulocyte % (Auto) 0.5 % 09/03/24 Neutrophils # (Auto) 3.94 K/uL (1.40-6.50) 09/03/24 Lymphocytes # (Auto) 0.15 K/uL (1.20-3.40) L 09/03/24 Monocytes # (Auto) 0.07 K/uL (0.11-0.59) L 09/03/24 Eosinophils # (Auto) 0.00 K/uL (0.00-0.50) 09/03/24 Basophils # (Auto) 0.00 K/uL (0.00-0.20) 09/03/24 Immature Granulocyte # (Auto) 0.02 K/uL (0.01-0.20) 4 Polychromasia 2+ 09/03/24 Basophilic Stippling 1+ 09/03/24 Anisocytosis Present 09/03/24 Tear Drop Cells 1+ 09/03/24 Ovalocytes 1+ 09/03/24 Toxic Granulation 1+ 09/03/24 Na 136 mmol/L (136-145) 09/03/24 K 4.0 mmol/L (3.5-5.1) 09/03/24 Cl 102 mmol/L (98-107) 09/03/24 CO2 25 mmol/L (21-32) 09/03/24 Anion Gap 9 (3-11) 09/03/24 BUN 62 mg/dl (6-23) H 09/03/24 Creatinine 1.86 mg/dl (0.6-1.4) H 09/03/24 BUN/Creatinine Ratio 33.3 (10-20) H 09/03/24 Glu 131 mg/dl (70-99(Fasting)) H 09/03/24 Ca 8.0 mg/dl (8.6-10.3) L 09/03/24 Total Bilirubin 1.9 mg/dl (0.2-1.0) H 09/03/24 AST 15 U/L (13-39) 09/03/24 ALT 6 U/L (7-52) L 09/03/24 Alkaline Phosphatase 53 U/L (34-104) 09/03/24 TP 5.4 gm/dl (6.0-8.3) L 09/03/24 Albumin 3.2 gm/dl (3.4-5.0) L 09/03/24 Globulin 2.2 gm/dl (2.5-4.0) L 09/03/24 Albumin/Globulin Ratio 1.5 (0.9-2) 09/03/24 Lactate Dehydrogenase 176 U/L (86-244) 09/03/24 Mg 2.2 mg/dl (1.7-2.4) 09/03/24 05:41 Calcium Level 8.0 mg/dl (8.6-10.3) L 09/03/24 05:41 Prothromb Time International Ratio 2.1 (0.9-1.1) H 09/03/24 05 :41 Venous Blood pH 7.41 (7.36-7.41) 09/02/24 08:13 Venous Blood Partial Pressure CO2 41 mmHg (38-50) 09/02/24 08:1 3 Venous Blood Partial Pressure O2 30 mmHg 09/02/24 08:13 Venous Blood HCO3 26 mmol/L 09/02/24 08:13 Venous Blood Base Excess 1.2 mEq/L 09/02/24 08:13 Venous Blood Oxygen Saturation < 60.0 % 09/02/24 08:13 Diagnostic Findings (Past 24 Hours) Chest X-Ray 09/02/24 07:44 XR chest 1V portable CLINICAL HISTORY: Dyspnea COMPARISON STUDY: Chest CT April 01, 2024. Chest radiograph August 08, 2024. FINDINGS: Right internal jugular [id number], left leg and pacer, median sternotomy wires and prosthetic cardiac valves are again noted. Cardiomegaly is unchanged. Pulmonary edema is noted. This is slightly improved when compared to prior exam. There is no pneumothorax. There are small bilateral pleural effusions. Right basilar opacity is present. IMPRESSION: 1. Cardiomegaly with interstitial pulmonary edema and small bilateral pleural effusions . 2. Right basilar opacity which may be related to pulmonary edema. Superimposed pneumonia could appear similar. Radiographic follow-up is recommended. ACT 112: Negative or not required by law. Electronically signed by: Raza Robert M.D. 09/02/2024 8:[address] 09/02/24 10:42 CT chest diagnostic wo con CLINICAL HISTORY: hypoxia, pulm edema vs pna TECHNIQUE: Multidetector row helical CT of the chest was performed. Coronal and sagittal reformations were obtained. Automated dose lowering techniques and/or adjustment according to patient size were utilized for this exam. CT DOSE: 524.21 mGy.cm Comparison: Comparison is made to CT chest 04/01/2024 FINDINGS: Lungs and pleura: Trace bilateral pleural effusions are seen. Faint groundglass opacities are in the bilateral lower lungs. Heart and pericardium: Cardiomegaly is seen with biatrial enlargement. Aortic valvular prosthesis is seen. Vessels: Severe atherosclerotic changes in the aorta and coronary arteries. Pulmonary trunk measures 37 mm in diameter. Mediastinum and karson: Unremarkable. Chest wall and lower neck: Unremarkable. Abdomen: A hiatal hernia is seen. Bones: Degenerative changes in the thoracic spine. IMPRESSION: 1. Bilateral airspace opacities may represent pneumonia or alveolar edema. 2. Pulmonary hypertension and cardiomegaly. 3. Small bilateral pleural effusions. ACT 112: Negative or not required by law. Electronically signed by: Sebastian Nicole M.D. 09/02/2024 11:22 AM I & O Totals 24 Hours 09/02/24 09/03/24 09/04/24 06:59 06:59 06:59 Intake Total 849.65 / 849.65 Output Total 925 / 1025 100 / 100 Balance -75.35 / -175.35 -100 / -100 Cumulative 09/02/24 07:30 thru 09/03/24 07:00 Intake Total 849.65 Output Total 1025 Balance -175.35 RT Ventilator Mngmt (Last Documented) Ventilator Ordered Settings Respiratory Rate 20 09/03/24 07:04 Ventilator - PT Measurements Respiratory Rate 20 PG Care Time/CCT Total # of Minutes Spent Total Time Spent with Patient: Total time spent is greater than 50% in coordination of care (as documented) at patient's floor/unit and/or counseling patient: Coding Level of Care Code 33330 SUB INP/OBS CARE 2/35MIN Diagnoses Acute worsening of stage 3 chronic kidney disease N18.30 Hypoxia R09.02 Altered mental status R41.82 Acute on chronic diastolic CHF (congestive heart failure) I50.33
--- NOTE | 2024-09-03 08:23 | Cardiology Consultation ---
Date of Consultation September 03, 2024 Assessment & Plan (1) Chronic blood loss anemia: (2) Acute on chronic diastolic CHF (congestive heart failure): (3) Moderate mitral stenosis: (4) Pneumonia: (5) Persistent atrial fibrillation: Plan Patient admitted for worsening cough, SOB, possible blood tinged sputum. Possible pneumonia on chest xray vs pulm edema. Patient appears volume overloaded on exam with b/l rales, edema, + JVD Has received several doses of IV lasix since admission. Most recent dose IV lasix was this morning 20 mg IV during transfusion. Would consider repeat dose of furosemide 20 mg IV this afternoon. Mild hypotension limiting meds. Consider initiation of midodrine if needed? Monitor I+O's. Monitor renal function/electrolytes Nephrology following as week given CKD. Allow for higher creatinine to improve volume status and symptoms. Palliative care also consulted. Ongoing anemia noted. Hbg down to 6.4 again this morning. Agree with transfusion. Currently receiving 2nd unit since yesterday Would hold coumadin. Risks of stroke vs bleeding discussed. At this point, he is higher risk of ongoing bleeding complications and will hold anticoagulation. Reassess if hbg stabilizes. Patient with chronic HFpEF with prior AVR (normal gradients per echo in January 2024) and Mitral valve repair with now moderate Mitral stenosis. Continue diuresis. Given multiple comorbidities and repeated admissions. Would agree with palliative care consult to discuss goals of care. Case discussed with Dr. Vallejo I spent a total of 60 minutes on the date of service in preparation, delivery, and documentation of the care provided to this patient, excluding any time spent in the performance of separately billed services. Mahogany Will PA-C Department of Cardiology, [facility] This chart was completed in part utilizing Speech Voice Recognition Software. Grammatical errors, random word insertions, pronoun errors, and incomplete sentences are an occasional consequence of this system due to software limitations, ambient noise, and hardware issues. Any formal questions or concerns about the content, text, or information contained within the body of this dictation should be directly addressed to the provider for clarification. Supervising Physician Co-Signing Physician Notes I have personally performed a history and physical examination on the patient. I have reviewed the advance practitioner's documentation, and I agree with, and take responsibility for the plan of care. Complex 89-year-old patient admitted with shortness of breath, cough, and blood-tinged sputum. Significant anemia noted on admission. Receiving second unit of packed red blood cells today for hemoglobin of 6.4 g/dL. EGD performed 05/2024 with evidence of gastric polyp and local bleeding. Imaging and physical exam suggestive of acute decompensated heart failure and possible superimposed pneumonia. Nephrology input appreciated. Agree with continued diuresis to maintain negative fluid balance. Allow for higher creatinine to improve volume status. Warfarin placed on hold due to significant anemia requiring 2 units packed red blood cells since admission. Monitor daily GFR, electrolytes, H&H. Overall prognosis guarded. Agree with palliative care consultation. Michael Vallejo DO, [facility] History of Present Illness Reason for Consultation: CHF; Valvular heart disese Requesting Physician: Eugenia Zheng Attending Physician: Dr. Vallejo History of Present Illness Patient is an 89 year old male who presents to [facility] with worsening cough, fever, and blood tinged sputum. Diagnosed with possible pneumonia. HOLLY also noted on admission. history of CHF and CKD. Managing fluid status has been difficult in the recent past few months. Admitted in Jul 2024 with confusion, anemia and HFpEF secondary to valvular disease. Symptoms improved with IV lasix. Discharged on torsemide, spironolactone. At [facility] f/u, worsening edema and weight gain noted. Torsemide increased to 20 mg daily. He was also treated with IV iron infusions over the last several weeks due to anemia. Hbg was low on admission at 6.9. Treated with 1 unit PRBC's and 20 of IV lasix. Hbg improved to 7.6 but then dropped again this morning to 6.4. Currently receiving second unit PRBC's this morning. Ongoing cough reported. He denies SOB or chest pain. Reports "feeling good". Problem List: 1. Valvular heart disease, status post aortic valve replacement and mitral valve repair, 2003, with [place] aortic valve bioprosthesis and a 28 mm [place] mitral valve annular ring. Per echo 01/2024 - normal LVEF, normal gradients of bioprosthetic AV, annuloplasty ring present with thickening of mitral valve leaflets with moderate MS noted. 2. Persistent atrial fibrillation/flutter, status post flutter ablation in 2006 and December 2014, with recurrence, now persistent atrial fibrillation flutter 3. Intrinsic prosthetic aortic valve stenosis, moderate mitral stenosis, post surgical 4. 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 Hypertension. 6. Hyperlipidemia. 7. Chronic arthritic disease, chronic prednisone suppression. 8. Complicated shoulder surgery, September 2014, with bleeding and subsequent hypercoagulable state with pulmonary embolus. 9. 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 10. Status post partial colectomy, 08/08/2015. 11. Chronic anemia receiving iron infusions -upper GI endoscopic was done in May 2024, gastric polyp noted with some local bleeding which maybe the cause of the GI blood loss. Repeat endoscopy scheduled for [facility] [place] in Oct 2024. 12. Bladder carcinoma, Keytruda last received in 04/2023, thereafter discontinued due to concern for myocarditis 13. Hypothyroidism. Allergies Allergy/AdvReac Type Severity Reaction Status Date / Time Penicillins Allergy Unknown RASH/EL-ORBITAL Verified 09/02/24 11:48 EDEMA olanzapine [From Zyprexa] AdvReac Severe Agitated Verified 09/02/24 09:09 zolpidem [From Ambien] AdvReac Severe Hallucinati Unverified 09/02/24 09:09 ng Home Medications Medication Instructions Recorded Confirmed Type esomeprazole magnesium 40 mg 40 mg PO BID 03/25/19 09/02/24 History capsule,delayed release (Nexium) prednisone 5 mg tablet 5 mg PO QAM 03/25/19 09/02/24 History warfarin 5 mg tablet 2.5 mg PO [id number] 03/25/19 09/02/24 History ferrous sulfate 325 mg (65 mg 325 mg PO QAM 04/25/21 09/02/24 History iron) tablet tamsulosin 0.4 mg capsule 0.4 mg PO HS 01/23/24 09/02/24 History cholecalciferol (vitamin D3) 25 25 mcg PO QAM 03/31/24 09/02/24 History mcg (1,000 unit) tablet (Vitamin D3) cyanocobalamin (vitamin B-12) 1,000 mcg PO QAM 03/31/24 09/02/24 History 1,000 mcg tablet (Vitamin B-12) rosuvastatin 10 mg tablet 10 mg PO QPM 05/18/24 09/02/24 History albuterol sulfate 90 mcg/actuation 2 puff inhalation Q4H PRN 08/08/24 09/02/24 History aerosol inhaler Shortness Of Breath Or Wheezing coenzyme Q10 100 mg capsule 200 mg PO DAILY 08/08/24 09/02/24 History (CoQ-10) fluticasone propionate 50 1 spray intranasal DAILY 08/08/24 09/02/24 History mcg/actuation nasal spray,suspension ipratropium bromide 0.02 % 2.5 ml inhalation QID PRN 08/08/24 09/02/24 History solution for inhalation Shortness Of Breath Or Wheezing magnesium 250 mg tablet 250 mg PO DAILY 08/08/24 09/02/24 History potassium chloride 10 mEq 10 meq PO DAILY #30 tabs 08/11/24 09/02/24 Rx tablet,extended release(part/cryst) spironolactone 25 mg tablet 12.5 mg (1/2 x 25 mg) PO QAM #30 08/11/24 09/02/24 Rx tabs torsemide 10 mg tablet 20 mg PO QAM 08/26/24 09/02/24 History levothyroxine 150 mcg tablet 150 mcg PO DAILYBB 09/02/24 09/02/24 History Patient History Medical History Restrictive lung disease Enlarged prostate Elevated troponin level (05/18/24) notes elevated troponin level ad mn ed visit. Reports she did message cardiology regarding and no response as of current. Anemia reports iron deficiency anemia. Asthma not sure on official dx details. History of respiratory failure (12/2023) History of encephalopathy (03/2024) Hx of bladder cancer (05/2021) TURBT, chemo + radiation Nocturnal hypoxemia oxygen prn 2L [place] (hard of hearing) High cholesterol History of elevated PSA Osteoarthritis CKD (chronic kidney disease), stage III History of pulmonary edema History of pericarditis (2022) Moderate mitral stenosis "some calcification there" - told valve was working okay. History of RSV infection (12/2023) and hx respiratory failure Dec 2023 History of pneumonia (12/2023) Hypothyroid Persistent atrial fibrillation History of CHF (congestive heart failure) (03/2024) Cellulitis dx 05/18/24 left leg - mn ed. Hematuria current: messaged urology regarding. Reports was told do colonoscopy/egd first then will follow up. Hx cystoscopy march 2024 and was clear. History of basal cell carcinoma History of rectal fissure History of COVID-19 DX'D 10/2020 [facility]RU [facility]-SOB, PRODUCTIVE COUGH, BODY ACHES, FEVER-RECOVERED AT HOME-SYMPTOMS RESOLVED SOB (shortness of breath) on exertion Arthritis Anticoagulated on Coumadin Heart disease Stark's esophagus GERD (gastroesophageal reflux disease) History of pulmonary embolism (2013) FOLLOWING SHOULDER SURGERY APPROX 2013 -NO ISSUES SINCE Tachy-pb syndrome part of reason for pacemaker, pt unsure if occurs at current. History of atrial flutter Restless legs syndrome Dyslipidemia Carotid artery disease pt is unsure about this. Nothing has ever been talked about regarding. Spinal stenosis of lumbar region History of paroxysmal supraventricular tachycardia BPH (benign prostatic hypertrophy) Diverticular disease of colon COPD (chronic obstructive pulmonary disease) pt not sure about official dx of. Hypertension Surgical History History of aortic valve replacement (2003) History of mitral valve repair (2003) [facility]. History of cardiac radiofrequency ablation x2 most recent approx 2013. History of right cataract surgery History of left cataract surgery Pacemaker TACHY-PB SYNDROME. ALSO HX OF A-FIB. LAST CHECKED within 2023 - [facility] History of bladder surgery TURBT 05/29/2021 [facility] History of esophagogastroduodenoscopy (EGD) MULTIPLE History of tonsillectomy History of total knee replacement LEFT KNEE History of herniorrhaphy History of surgery MOHS PROCEDURE ON FACE History of colonoscopy History of bowel resection S/T DIVERTICULITIS History of arthroscopy B/L SHOULDERS Status post inguinal hernia repair Family History Brother Diabetes Cancer Esophageal Cancer Mother Colorectal cancer Lung cancer Social History (Updated 09/02/24 @ 11:10 by Diana Johnson PA-C) Smoking Status: Never smoker Tobacco Type: Smokeless Tobacco (Dip or Chew) Second Hand Exposure: No; Do You Dip or Chew Tobacco: Yes (currently not using); Hx Alcohol Use: No Hx Substance Use: No Preferred Language: Jordanian Communication Ability: Impaired Communication Ability Comment: Pt confused, daughter providing history Visual Impairment: Limited Hearing Ability: Hard of Hearing [employer] Required: No Beliefs That Will Affect Care: None marital status: Current Living Situation: Spouse Current Living Situation Comment: home with current occupational status: retired Feels Safe at Home: Yes Diet: regular caffeine: No during the past year weight has: remained stable Physical Activity Frequency: Other Physical Activity Frequency Comment: "Does alot of yard work" Assistive Devices: Walker Review of Systems Review of Systems: All systems reviewed & are unremarkable except as noted in HPI & below Physical Exam Constitutional: WD/WN, vitals as above + ill appearing; no acute distress Respiratory: no respiratory distress Auscultation: + crackles and + rhonchi Cardiovascular: Rate/Rhythm: + irregularly irregular Heart Sounds: + murmur (II/ systolic murmur LSB) Vessels: + JVD Extremities: + edema (1-2+ LE edema with chronic venous stasis changes) Gastrointestinal (Abdomen): normal bowel sounds, soft, nontender, no hepatosplenomegaly Neurologic: PERRL, EOMI, accommodation nl, no face palsy, no dysarthria Results & Data Vital Signs (Past 12 Hours) Vital Signs Temp Pulse Pulse Resp BP BP Pulse Ox 09/03/24 08:15 36.5 C 89 18 89/47 L 95 09/03/24 07:04 36.6 C 53 L 20 104/55 L 100 09/03/24 06:59 104/55 L 09/03/24 06:54 63 16 98 09/03/24 06:30 90/50 L 09/03/24 03:54 36.4 C L 61 20 124/92 100 09/02/24 23:54 81 09/02/24 23:52 111/48 L 09/02/24 23:09 36.6 C 64 20 111/61 96 09/02/24 22:57 86 16 88/49 L 96 09/02/24 21:59 64 18 105/56 L 96 09/02/24 20:51 36.6 C 64 20 95/60 L O2 Del Method O2 Flow Rate 09/03/24 08:15 09/03/24 07:04 Room Air 09/03/24 06:59 09/03/24 06:54 Room Air 09/03/24 06:30 09/03/24 03:54 Nasal Cannula 3 09/02/24 23:54 09/02/24 23:52 09/02/24 23:09 Nasal Cannula 3 09/02/24 22:57 Nasal Cannula 2 09/02/24 21:59 Nasal Cannula 2 09/02/24 20:51 Laboratory Results Cardiac Enzymes 09/03/24 Range/Units 05:41 AST 15 (13-39) U/L Lactate Dehydrogenase 176 (86-244) U/L Coagulation 09/03/24 Range/Units 05:41 PT 21.2 H (9.0-12.0) Seconds CBC 09/02/24 09/03/24 Range/Units 21:32 05:41 WBC 4.18 L (4.8-10.8) K/ul RBC 2.31 L (4.70-6.10) M/uL Hgb 7.6 L 6.4 L* (14.0-18.0) g/dl Hct 26.5 L 21.6 L (42.0-52.0) % Plt Count 78 L (130-400) K/uL Neut # (Auto) 3.94 (1.40-6.50) K/uL Lymph # (Auto) 0.15 L (1.20-3.40) K/uL Edmunds # (Auto) 0.07 L (0.11-0.59) K/uL Eos # (Auto) 0.00 (0.00-0.50) K/uL Baso # (Auto) 0.00 (0.00-0.20) K/uL Comprehensive Metabolic Panel 09/03/24 Range/Units 05:41 Sodium 136 (136-145) mmol/L Potassium 4.0 (3.5-5.1) mmol/L Chloride 102 (98-107) mmol/L Carbon Dioxide 25 (21-32) mmol/L BUN 62 H (6-23) mg/dl Creatinine 1.86 H D (0.6-1.4) mg/dl Glucose 131 H (70-99(Fasting)) mg/dl Calcium 8.0 L (8.6-10.3) mg/dl AST 15 (13-39) U/L ALT 6 L (7-52) U/L Alkaline Phosphatase 53 (34-104) U/L Total Protein 5.4 L (6.0-8.3) gm/dl Albumin 3.2 L (3.4-5.0) gm/dl Intake and Output 09/02/24 09/03/24 09/03/24 22:59 06:59 14:59 Intake Total 170 / 849.65 230 / 849.65 310 / 310 Output Total 350 / 1025 575 / 1025 351 / 351 Balance -180 / -175.35 -345 / -175.35 -41 / -41 Intake: IV 50 / 549.65 50 / 549.65 Albumin 25% 12.5 gm In 50 ml @ 50 / 100 50 / 100 50 mls/hr IV ONE ONE Rx#: [id number] Oral 120 / 300 180 / 300 Intake (Blood Product) Amt 0 / 0 310 / 310 Packed Cells, Leukoreduced 0 / 0 Unit [id number] Packed Cells, Leukoreduced 310 / 310 Unit [id number] Output: Urine 350 / 1025 575 / 1025 350 / 350 # Bowel Movements Other: Weight 61.3 kg Weight Measurement Method [facility] Diagnostic Findings Telemetry reviewed: Afib with intermittent pacing in the 60's EKG reviewed from admission, 09/02/24: Afib with controlled rates LAFB LVH Chest CT report reviewed from admission: IMPRESSION: 1. Bilateral airspace opacities may represent pneumonia or alveolar edema. 2. Pulmonary hypertension and cardiomegaly. 3. Small bilateral pleural effusions. Chest xray: IMPRESSION: 1. Cardiomegaly with interstitial pulmonary edema and small bilateral pleural effusions . 2. Right basilar opacity which may be related to pulmonary edema. Superimposed pneumonia could appear similar. Radiographic follow-up is recommended. Prior outside data reviewed: Pacemaker interrogation August 25, 2024 demonstrated appropriate function, 4.5 years remaining longevity. Mode VVIR, chronic atrial fibrillation. Histograms show acceptably controlled ventricular rates. Echo report reviewed dated January 2024: Normal LVEF at 55-60% Moderate concentric LVH Bioprosthetic AVR noted wiht normal gradients Annuloplasty ring noted of the mitral valve with thickened leaflets, moderate mitral stenosis Mild MR RV systolic pressure is elevated at 50-60 mmHg Medications Administered Current Inpatient Medications Acetaminophen (Acetaminophen 325 Mg Tab) 650 mg PO Q4H PRN PRN Reason: Pain or Fever Stop: 10/02/24 12:50 Acetaminophen (Acetaminophen 325 Mg Tab) 650 mg PO PRE-TREAT ONE Stop: 09/03/24 17:36 Last Admin: 09/03/24 10:07 Dose: 650 mg Albuterol (Albut/Ipratrop 3mg/0.5mg Neb 3 Ml Vial) 3 ml NEB QIDR [facility]; Protocol Stop: 10/02/24 14:59 Last Admin: 09/03/24 11:00 Dose: 3 ml Cefuroxime Axetil (Cefuroxime Axetil 500 Mg Tab) 500 mg PO Q24H [facility] Stop: 09/09/24 20:59 Last Admin: 09/02/24 19:43 Dose: 500 mg Cyanocobalamin (Cyanocobalamin (B-12) 500 Mcg Tablet) 1,000 mcg PO QAM [facility] Stop: 10/03/24 08:59 Last Admin: 09/03/24 08:34 Dose: 1,000 mcg Ferrous Sulfate (Ferrous Sulfate 325 Mg Tab) 325 mg PO QAM [facility] Stop: 10/03/24 08:59 Last Admin: 09/03/24 08:35 Dose: 325 mg Fluticasone Propionate (Fluticasone Propionate Na Spr 16 Gm Btl) 1 sprays NA DAILY [facility] Stop: 10/03/24 08:59 Last Admin: 09/03/24 08:35 Dose: 1 sprays Sodium Chloride (Nss) 250 mls @ 15 mls/hr IV .[id number] PRN PRN Reason: For Transfusion Duration Stop: 09/03/24 16:40 Sodium Chloride (Nss) 250 mls @ 15 mls/hr IV .[id number] PRN PRN Reason: For Transfusion Duration Stop: 09/03/24 19:35 Lactobacillus Acidophilus (Advanced Probiotic 625 Mg Capsule) 1,250 mg PO DAILY [facility] Stop: 10/03/24 08:59 Last Admin: 09/03/24 08:35 Dose: 1,250 mg Levothyroxine Sodium (Levothyroxine Sodium 150 Mcg Tablet) 150 mcg PO DAILYBB [facility] Stop: 10/03/24 06:29 Last Admin: 09/03/24 06:01 Dose: 150 mcg Magnesium Oxide (Magnesium Oxide 400 Mg Tab) 400 mg PO DAILY [facility] Stop: 10/03/24 08:59 Last Admin: 09/03/24 08:36 Dose: 400 mg Melatonin (Melatonin 3 Mg Tab) 6 mg PO HS PRN PRN Reason: Sleep Stop: 10/02/24 22:46 Last Admin: 09/02/24 23:34 Dose: 6 mg Ondansetron HCl (Ondansetron Inj 2 Mg/Ml 2 Ml Vial) 4 mg IV Q6H PRN PRN Reason: Nausea Stop: 10/02/24 12:50 Pantoprazole Sodium (Pantoprazole 40 Mg Tab) 40 mg PO BID JENNIFER Stop: 10/02/24 20:59 Last Admin: 09/03/24 08:36 Dose: 40 mg Polyethylene Glycol (Polyethylene (Miralax) 17 Gm Pack) 17 gm PO DAILY PRN PRN Reason: Constipation Stop: 10/02/24 12:50 Prednisone (Prednisone 5 Mg Tab) 5 mg PO QAM JENNIFER Stop: 10/03/24 08:59 Last Admin: 09/03/24 10:43 Dose: 5 mg Rosuvastatin Calcium (Rosuvastatin Calcium 10 Mg Tab) 10 mg PO QPM JENNIFER Stop: 10/02/24 20:59 Last Admin: 09/02/24 19:44 Dose: 10 mg Tamsulosin HCl (Tamsulosin Hcl 0.4 Mg Cap) 0.4 mg PO HS JENNIFER Stop: 10/02/24 20:59 Last Admin: 09/02/24 19:44 Dose: 0.4 mg Vitamin D (Cholecalciferol 25 Mcg (1000 Units) Tab) 25 mcg PO QAM JENNIFER Stop: 10/03/24 08:59 Last Admin: 09/03/24 08:34 Dose: 25 mcg
[2024-09-03] MEDS: CHOLECALCIFEROL 25 MCG (1000 UNITS) TAB PO SCH (08:34)
[2024-09-03] MEDS: CYANOCOBALAMIN (B-12) 500 MCG TABLET PO SCH (08:34)
[2024-09-03] MEDS: FERROUS SULFATE 325 MG TAB PO SCH (08:35)
[2024-09-03] MEDS: FLUTICASONE PROPIONATE NA SPR 16 GM BTL SCH (08:35)
[2024-09-03] MEDS: ADVANCED PROBIOTIC 625 MG CAPSULE PO SCH (08:35)
[2024-09-03] MEDS: MAGNESIUM OXIDE 400 MG TAB PO SCH (08:36)
[2024-09-03] MEDS ORDERED: NON-FORMULARY MEDICATION (Coenzyme Q10 [Coq-10] 100 mg Capsule) PO SCH (09:00)
[2024-09-03] MEDS: ACETAMINOPHEN 325 MG TAB PO ONE (10:07)
[2024-09-03] MEDS: predniSONE 5 MG TAB PO SCH (10:43)
--- NOTE | 2024-09-03 12:08 | Nephrology Progress Note ---
Date of Service September 03, 2024 Assessment & Plan (1) Acute worsening of stage 3 chronic kidney disease: Plan: Juan due to ischemic ATN in setting of anemia and CHF. Cr down to 1.86 today His Baseline Cr ~ 1.4-1.7 a/w Cr 1.6 -lasix 20mg iv BID. he will be discharged on torsemide 20mg twice daily -Daily BMP/ Input and output w. daily weights preferably on the same scale. -Agree with Palliative care at home. -Monitor renal function with daily BMP -He will need renal follow up for volume management (2) Bilateral pneumonia: Plan: tx with Renally dosed IV cefepime. (3) Anemia of chronic disease: Plan: pt with known gastric polyp He is on regular intermittent procrit as well as IV venofer as outpt -HB is low than 6.4 Agree w/ 1 unit PRBC with lasix cover, As per HPI he got venofer on 08/27, and Procrit last Saturday. - (4) Acute on chronic diastolic CHF (congestive heart failure): Plan: Very complex cardiac history , He appears to be volume overload on exam His torsemide was increased to 20mg daily as OP, -Daily assesment w/ weight. Daily weights, strict I and O Admission and Anticipated Discharge Date Admission Date: September 02, 2024 Subjective Seen for acute kidney injury. He complains of shortness of breath with exertion. Daughter was at the bedside. She is leaning towards tolerance palliative care at home. Review of Systems 2 Review of Systems: All other systems were reviewed and negative except as noted in HPI Physical Exam 2 Physical Exam: General exam: Appears comfortable, no acute distress HEENT: Pupils are equal and reactive to light Neck: No JVD, neck is supple trachea is midline Respiratory system: Crackles bilaterally. Gastrointestinal: Abdomen is soft, non distended, non tender, bowel sounds are present CVS: Regular rate and rhythm. No murmurs, rubs or gallops Musculoskeletal: No joint or muscle tenderness Extremities: Non tender, 1+ edema, peripheral pulses are present Neuro: Oriented, no tremors, no focal neurological deficits Skin: No rashes Results & Data Vital Signs (Past 12 Hours) Vital Signs Temp Pulse Pulse Resp BP BP Pulse Ox 09/03/24 11:18 36.7 C 76 18 93/49 L 98 09/03/24 11:00 76 17 97 09/03/24 10:18 36.7 C 110 H 20 98/47 L 97 09/03/24 09:18 36.5 C 82 19 101/53 L 96 09/03/24 08:48 36.6 C 93 H 20 94/55 L 98 09/03/24 08:33 36.7 C 93 H 18 89/57 L 95 09/03/24 08:26 09/03/24 08:15 36.5 C 89 18 89/47 L 95 09/03/24 08:00 72 09/03/24 07:04 36.6 C 53 L 20 104/55 L 100 09/03/24 06:59 104/55 L 09/03/24 06:54 63 16 98 09/03/24 06:30 90/50 L 09/03/24 03:54 36.4 C L 61 20 124/92 100 O2 Del Method O2 Flow Rate 09/03/24 11:18 09/03/24 11:00 Room Air 09/03/24 10:18 09/03/24 09:18 09/03/24 08:48 09/03/24 08:33 09/03/24 08:26 Room Air 09/03/24 08:15 09/03/24 08:00 09/03/24 07:04 Room Air 09/03/24 06:59 09/03/24 06:54 Room Air 09/03/24 06:30 09/03/24 03:54 Nasal Cannula 3 Laboratory Results 09/03/24 05:41 09/03/24 05:41 WBC 4.18 L RBC 2.31 L MCV 93.5 MCH 27.7 MCHC 29.6 L RDW Std Deviation 68.7 H RDW Coeff of Humberto 20.6 H Plt Count 78 L MPV 11.1 Albumin 3.2 L
[2024-09-03 14:47] LABS: Hematocrit (blood only) 25.3 % (42.0-52.0); Hemoglobin 7.6 g/dl (14.0-18.0)
--- NOTE | 2024-09-03 19:24 | Hospitalist Progress Note ---
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 Hypoxia Bilateral Pneumonia Hemoptysis Presumed sepsis admit to PCU pt with multiple complex comorbidities - his volume status appears to be at baseline despite elevated BNP and with a mild HOLLY it appears he has a bilateral pneumonia tx with IV cefepime, flagyl, obtain MRSA screen, lactobacillus consult pulmonology for assistance pulmonary toilet with nebs, ISP and flutter valve sputum and blood culture 09/03 on Cefuroxime Pulm on board HOLLY superimposed on CKD 3 Cr 2.16 Baseline Cr ~ 1.4-1.7, suspect in setting of hypovolemia and diuresis pt to be administered blood transfusion x 1 unit along with IV antibiotics consult nephrology for further assistance, hold diuretics and KCL for now, pt with tenuous volume status so will defer to nephrology on when to resume Monitor renal function with daily BMP 09/03 crea 1.8 monitor Acute on Chronic Anemia in setting of chronic blood loss and medical renal disease pt with known gastric polyp, has appt in [place] in October for cauterization? pt receiving intermittent procrit as well as IV venofer as outpt hgb 6.9 today, type and crossed for 1 unit, will monitor hgb and volume status closely add haptoglobin, ldh to a.m. lab to r/o hemolysis 09/03 Hg went down again to 6.7 1 unit pRBC ordered possibly from hemoptysis, upper gi bleed, etc discussed with patient and daughter- no GI consult, EGD at this time continue Protonix BID, monitor CBC Metabolic encephalopathy 2/2 above, per family no hx of dementia at baseline but freq hosp delirium family to be at bedside 10/06 Chronic HFpEF S/p aortic Valve replacement, Bovine valve Hx of mitral valve repair hx of HTN - bp on low side today medically complex, recently hospitalization for decompensation, exam today appears to be consistent with cardiology exam on discharge His torsemide was increased to 20mg daily as OP, hold torsemide, aldactone and KCL for now Daily weights, strict I and O low threshold for cardiology consult, but will hold off for now He did receive IV venofer on 08/27 so family concerned that put him back into heart failure * 2D ECHO from January 2024: Left ventricle is normal in size. Moderate concentric LVH. Apical wall motion abnormality may reflect pacemaker activation. Flattened septum is consistent with RV pressure overload. EF 55 to 60%. Bioprosthetic aortic valve. Gradient is normal for prosthetic aortic valve. Annuloplasty ring and prior mitral valve repair is present with thickening of the mitral valve leaflets. Moderate mitral stenosis is present. Mild mitral and tricuspid regurgitation. Right ventricular systolic pressure is elevated to be 50 to 60 mmHg 09/03 Lasix 20mg IV BID Persistent atrial fibrillation rate controlled with pacemaker, warfarin for anticoagulation INR therapeutic, hold warfarin for today given hemoptysis, consider IV heparin when subtherapeutic depending on clinic course and pulm consult 09/03 hold anticoagulation given anemia Moderate persistent asthma COPD Nocturnal Hypoxemia pulm toilet as above Hx Tachy/Pb Syndrome s/p Pacemaker HLD: chronic, stable, continue statin Tobacco use disorder chewing tobacco, currently has not been using Chronic Osteoarthritis Continue daily 5mg Prednisone, follows with rheum Hypothyroidism Continue levothyroxine 150 mcg daily BPH Continue flomax 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 Louis and Urology, Dr. Borges consulted as above Palliative care discussion discussion was held with family at bedside they are understanding of pt complex medical conditions and his gradual decline over several months family wishes to pursue all treatment to improve his baseline status, but would like to discuss with palliative care regarding transition when discharged about having more services at home and possibly hospice, palliative consult placed 09/03 Dr. Travis consulted DVT Ppx: hold evening coumadin 2/2 hemoptysis, recommend starting IV heparin when INR subtherapeutic Code status: DNR/DNI PCP: Richar Dispo: pending Admission and Anticipated Discharge Date Admission Date: September 02, 2024 Subjective ff up for CHF, pneumonia, acute renal failure on CKD, etc seen resting in bed, comfortable states he feels somewhat improved compared to yesterday breathing is improving, still has cough no chest pain, dyspnea, palpitations, dizziness no other symptoms Review of Systems Review of Systems: all noted and negative except for above Physical Exam Physical Exam: General- oriented x 3, not in distress, speaks in sentences with no effort or accessory muscle use Eyes- anicteric Neck- no JVD Lungs- (+) crackles bilateral bases no wheezing Heart- normal rate, regular rhythm; no murmurs Abdomen- normal bowel sounds, nondistended, soft, no tenderness Extremities- mild pretibial edema, no calf tenderness Neuro- alert, oriented x 3; no gross focal neurologic deficits Skin- warm & dry Results & Data Results & Data Vital Signs (Past 12 Hours) Vital Signs Temp Pulse Pulse Resp BP BP Pulse Ox 09/03/24 15:28 36.3 C L 82 16 117/40 L 89 L 09/03/24 15:06 79 16 97 09/03/24 12:05 36.7 C 80 18 99/47 L 98 09/03/24 12:03 36.7 C 80 19 100/46 L 98 09/03/24 12:02 36.7 C 81 18 99/47 L 97 09/03/24 11:18 36.7 C 76 18 93/49 L 98 09/03/24 11:00 76 17 97 09/03/24 10:18 36.7 C 110 H 20 98/47 L 97 09/03/24 09:18 36.5 C 82 19 101/53 L 96 09/03/24 08:48 36.6 C 93 H 20 94/55 L 98 09/03/24 08:33 36.7 C 93 H 18 89/57 L 95 09/03/24 08:26 09/03/24 08:15 36.5 C 89 18 89/47 L 95 09/03/24 08:00 72 O2 Del Method O2 Flow Rate 09/03/24 15:28 Room Air 09/03/24 15:06 Room Air 09/03/24 12:05 Room Air 09/03/24 12:03 09/03/24 12:02 09/03/24 11:18 09/03/24 11:00 Room Air 09/03/24 10:18 09/03/24 09:18 09/03/24 08:48 09/03/24 08:33 09/03/24 08:26 Nasal Cannula 3 09/03/24 08:15 09/03/24 08:00 all noted and reviewed including below
[2024-09-03] MEDS: FUROSEMIDE INJ 20 MG/2 ML VIAL IV SCH (21:38)
[2024-09-03] MEDS: ALBUMIN 25% 12.5 GM/50 ML VIAL IV ONE (21:52)
[2024-09-03] MEDS: NON-FORMULARY PATIENT'S OWN MED PO SCH (21:52)
--- NOTE | 2024-09-04 08:26 | XRay Report ---
XR chest 1V portable CLINICAL HISTORY: rattly lung sounds TECHNIQUE: Single frontal radiograph of the chest was obtained. Comparison: Comparison is made to chest radiograph 09/02/2024 FINDINGS: Lines and tubes are stable. Cardiomegaly is noted. The aortic arch is calcified. There is prominence and cephalization of the vasculature with Roby B lines seen. Previously noted bibasilar airspace op acities are less evident on today's exam. No evidence of pleural effusion or pneumothorax. IMPRESSION: Interval decrease in previously noted airspace opacities likely representing improving pulmonary chelsie a although moderate interstitial edema remains present. ACT 112: Negative or not required by law. Electronically signed by: Sebastian Nicole M.D. 09/04/2024 8:24 AM
[2024-09-04 10:36] LABS: Basophils # (auto) 0.02 K/uL (0.00-0.20); Basophils % (auto) 0.4 %; Hematocrit (blood only) 25.3 % (42.0-52.0); Hemoglobin 7.4 g/dl (14.0-18.0); Immature Granulocytes # (auto) 0.03 K/uL (0.01-0.20); Immature Granulocytes % (auto) 0.5 %; Lymphocytes # (auto) 0.37 K/uL (1.20-3.40); Lymphocytes % (auto) 6.8 %; Mean Corpuscular Hemoglobin 27.3 pg (25.0-34.0); Mean Corpuscular Hgb Conc 29.2 g/dL (32.0-36.0); Mean Corpuscular Volume 93.4 fL (80.0-100.0); Mean Platelet Volume 11.3 fL (9.4-12.4); Monocytes # (auto) 0.38 K/uL (0.11-0.59); Monocytes % (auto) 6.9 %; Neutrophils # (auto) 4.67 K/uL (1.40-6.50); Neutrophils % (auto) 85.4 %; Platelet Count 87 K/uL (130-400); RDW Coefficient of Variation 19.5 % (11.5-14.5); RDW Standard Deviation 66.2 fL (36.4-46.3); Red Blood Count 2.71 M/uL (4.70-6.10); White Blood Count 5.47 K/ul (4.8-10.8)
[2024-09-04 10:49] LABS: BUN Creatinine Ratio 39.1 (10-20); Creatinine Clr Calc Pharmacy 24.3 ml/min; Magnesium 2.3 mg/dl (1.7-2.4)
[2024-09-04 11:13] LABS: Ovalocytes 1+; Polychromasia 1+; Tear Drop Cells 1+
--- NOTE | 2024-09-04 11:39 | Cardiology Progress Note ---
Date of Service September 04, 2024 Assessment & Plan (1) Chronic blood loss anemia: (2) Acute on chronic diastolic CHF (congestive heart failure): (3) Moderate mitral stenosis: (4) Pneumonia: (5) Persistent atrial fibrillation: Plan 09/03/24 Patient admitted for worsening cough, SOB, possible blood tinged sputum. Possible pneumonia on chest xray vs pulm edema. Patient appears volume overloaded on exam with b/l rales, edema, + JVD Has received several doses of IV lasix since admission. Most recent dose IV lasix was this morning 20 mg IV during transfusion. Would consider repeat dose of furosemide 20 mg IV this afternoon. Mild hypotension limiting meds. Consider initiation of midodrine if needed? Monitor I+O's. Monitor renal function/electrolytes Nephrology following as week given CKD. Allow for higher creatinine to improve volume status and symptoms. Palliative care also consulted. Ongoing anemia noted. Hbg down to 6.4 again this morning. Agree with transfusion. Currently receiving 2nd unit since yesterday Would hold coumadin. Risks of stroke vs bleeding discussed. At this point, he is higher risk of ongoing bleeding complications and will hold anticoagulation. Reassess if hbg stabilizes. Patient with chronic HFpEF with prior AVR (normal gradients per echo in January 2024) and Mitral valve repair with now moderate Mitral stenosis. Continue diuresis. Given multiple comorbidities and repeated admissions. Would agree with palliative care consult to discuss goals of care. 09/04/24: Volume status improving with IV lasix. Continue low dose IV lasix 20 mg BID today. Creatinine stable at 1.7. Monitor I+O's. Monitor electrolytes Ongoing anemia noted. Hbg remains low today at 7.4 despite 2 units PRBC's. Likely needs repeat transfusion today. Hold coumadin as bleeding risk outweighs stroke risk. Patient with multiple complex comorbidities and multiple recent hospitalizations. Palliative care consult appreciated for plan and goals of care. Case discussed with Dr. Vallejo I spent a total of 30 minutes on the date of service in preparation, delivery, and documentation of the care provided to this patient, excluding any time spent in the performance of separately billed services. Mahogany Will PA-C Department of Cardiology, [facility] This chart was completed in part utilizing Speech Voice Recognition Software. Grammatical errors, random word insertions, pronoun errors, and incomplete sentences are an occasional consequence of this system due to software limitations, ambient noise, and hardware issues. Any formal questions or concerns about the content, text, or information contained within the body of this dictation should be directly addressed to the provider for clarification. Admission and Anticipated Discharge Date Admission Date: September 02, 2024 Supervising Physician Co-Signing Physician Notes I have personally performed a history and physical examination on the patient. I have reviewed the advance practitioner's documentation, and I agree with, and take responsibility for the plan of care. Complex 89-year-old patient admitted with shortness of breath, CHF, and possible pneumonia with blood-tinged sputum. Significant anemia Requiring 2 units of packed red blood cells 09/03/2024. EGD performed 05/2024 with evidence of gastric polyp and local bleeding. Transfuse to maintain hemoglobin greater than 7.0 g/dL. Imaging and physical exam suggestive of acute decompensated heart failure and possible superimposed pneumonia. Nephrology input appreciated. Improving with IV diuresis. Creatinine trending downward today. Monitor daily weight, fluid balance, GFR, and electrolytes. Warfarin placed on hold due to significant anemia. Palliative care consultation pending. Michael Vallejo DO, [facility] Subjective Patient sleeping soundly. Nurse and in room. Apparently patient with sig nificant owning and walked hallways with nursing staff last night all night. Did not sleep. reports this is common at home as well. Chest xray last night with improved congestion. Review of Systems Review of Systems: Other (Patient sleeping soundly (did not awaken)) Physical Exam Constitutional: WD/WN, vitals as above + ill appearing; no acute distress Respiratory: no respiratory distress Auscultation: + rhonchi Cardiovascular: Rate/Rhythm: + irregularly irregular Heart Sounds: + murmur (II/ systolic murmur LSB) Vessels: + JVD Extremities: + edema (1-2+ LE edema with chronic venous stasis changes) Gastrointestinal (Abdomen): normal bowel sounds, soft, nontender, no hepatosplenomegaly Neurologic: PERRL, EOMI, accommodation nl, no face palsy, no dysarthria Results & Data Vital Signs (Past 12 Hours) Vital Signs Temp Pulse Pulse Pulse Resp BP Pulse Ox 09/04/24 11:18 36.6 C 76 19 108/61 97 09/04/24 07:35 75 09/04/24 07:23 36.4 C L 75 19 103/61 98 09/04/24 07:13 85 14 98 09/04/24 04:59 123/65 09/04/24 02:49 95 H 09/04/24 02:00 36.3 C L 82 18 101/37 L 95 O2 Del Method 09/04/24 11:18 Room Air 09/04/24 07:35 09/04/24 07:23 Room Air 09/04/24 07:13 Room Air 09/04/24 04:59 09/04/24 02:49 09/04/24 02:00 Room Air Laboratory Results CBC 09/03/24 09/04/24 Range/Units 14:18 10:07 WBC 5.47 (4.8-10.8) K/ul RBC 2.71 L (4.70-6.10) M/uL Hgb 7.6 L 7.4 L (14.0-18.0) g/dl Hct 25.3 L 25.3 L (42.0-52.0) % Plt Count 87 L (130-400) K/uL Neut # (Auto) 4.67 (1.40-6.50) K/uL Lymph # (Auto) 0.37 L (1.20-3.40) K/uL [place] # (Auto) 0.38 (0.11-0.59) K/uL Eos # (Auto) 0.00 (0.00-0.50) K/uL Baso # (Auto) 0.02 (0.00-0.20) K/uL Comprehensive Metabolic Panel 09/04/24 Range/Units 10:07 Sodium 135 L (136-145) mmol/L Potassium 4.0 (3.5-5.1) mmol/L Chloride 101 (98-107) mmol/L Carbon Dioxide 27 (21-32) mmol/L BUN 70 H (6-23) mg/dl Creatinine 1.79 H (0.6-1.4) mg/dl Glucose 96 (70-99(Fasting)) mg/dl Calcium 8.0 L (8.6-10.3) mg/dl Intake and Output 09/03/24 09/04/24 09/04/24 22:59 06:59 14:59 Intake Total 50 / 810 Output Total 100 / 1076 625 / 1076 175 / 175 Balance -50 / -266 -625 / -266 -175 / -175 Intake: IV 50 / 50 Albumin 25% 12.5 gm In 50 ml @ 50 / 50 50 mls/hr IV ONE ONE Rx#: [id number] Output: Urine 100 / 1075 625 / 1075 175 / 175 Other: # Unmeasured Voids 3 Diagnostic Findings Telemetry reviewed: Afib with intermittent pacing, rates controlled 70-90's Chest xray from 09/03/24: IMPRESSION: Interval decrease in previously noted airspace opacities likely representing improving pulmonary edema although moderate interstitial edema remains present. Medications Administered Current Inpatient Medications Acetaminophen (Acetaminophen 325 Mg Tab) 650 mg PO Q4H PRN PRN Reason: Pain or Fever Stop: 10/02/24 12:50 Albuterol (Albut/Ipratrop 3mg/0.5mg Neb 3 Ml Vial) 3 ml NEB QIDR JENNIFER; Protocol Stop: 10/02/24 14:59 Last Admin: 09/04/24 11:24 Dose: 3 ml Cefuroxime Axetil (Cefuroxime Axetil 500 Mg Tab) 500 mg PO Q24H [facility] Stop: 09/09/24 20:59 Last Admin: 09/03/24 21:22 Dose: 500 mg Cyanocobalamin (Cyanocobalamin (B-12) 500 Mcg Tablet) 1,000 mcg PO QAM [facility] Stop: 10/03/24 08:59 Last Admin: 09/04/24 11:37 Dose: 1,000 mcg Ferrous Sulfate (Ferrous Sulfate 325 Mg Tab) 325 mg PO QAM [facility] Stop: 10/03/24 08:59 Last Admin: 09/04/24 11:38 Dose: 325 mg Fluticasone Propionate (Fluticasone Propionate Na Spr 16 Gm Btl) 1 sprays NA DAILY JENNIFER Stop: 10/03/24 08:59 Last Admin: 09/04/24 10:38 Dose: Not Given Furosemide (Furosemide Inj 20 Mg/2 Ml Vial) 20 mg IV BID JENNIFER Stop: 10/03/24 20:59 Last Admin: 09/04/24 10:21 Dose: 20 mg Lactobacillus Acidophilus (Advanced Probiotic 625 Mg Capsule) 1,250 mg PO DAILY JENNIFER Stop: 10/03/24 08:59 Last Admin: 09/04/24 11:34 Dose: 1,250 mg Levothyroxine Sodium (Levothyroxine Sodium 150 Mcg Tablet) 150 mcg PO DAILYBB JENNIFER Stop: 10/03/24 06:29 Last Admin: 09/04/24 06:16 Dose: 150 mcg Lorazepam (Lorazepam 0.5 Mg Tab) 0.25 mg PO NOW STA Stop: 09/04/24 11:37 Magnesium Oxide (Magnesium Oxide 400 Mg Tab) 400 mg PO DAILY JENNIFER Stop: 10/03/24 08:59 Last Admin: 09/04/24 11:39 Dose: 400 mg Melatonin (Melatonin 3 Mg Tab) 6 mg PO HS PRN PRN Reason: Sleep Stop: 10/02/24 22:46 Last Admin: 09/03/24 21:38 Dose: 6 mg Non-Formulary Medication (Non-Formulary Patient's Own Med) 1 each PO BID JENNIFER Stop: 10/03/24 21:59 Last Admin: 09/04/24 11:39 Dose: 40 mg Ondansetron HCl (Ondansetron Inj 2 Mg/Ml 2 Ml Vial) 4 mg IV Q6H PRN PRN Reason: Nausea Stop: 10/02/24 12:50 Polyethylene Glycol (Polyethylene (Miralax) 17 Gm Pack) 17 gm PO DAILY PRN PRN Reason: Constipation Stop: 10/02/24 12:50 Prednisone (Prednisone 5 Mg Tab) 5 mg PO QAM JENNIFER Stop: 10/03/24 08:59 Last Admin: 09/04/24 11:35 Dose: 5 mg Rosuvastatin Calcium (Rosuvastatin Calcium 10 Mg Tab) 10 mg PO QPM JENNIFER Stop: 10/02/24 20:59 Last Admin: 09/03/24 21:23 Dose: 10 mg Tamsulosin HCl (Tamsulosin Hcl 0.4 Mg Cap) 0.4 mg PO HS JENNIFER Stop: 10/02/24 20:59 Last Admin: 09/03/24 21:23 Dose: 0.4 mg Vitamin D (Cholecalciferol 25 Mcg (1000 Units) Tab) 25 mcg PO QAM JENNIFER Stop: 10/03/24 08:59 Last Admin: 09/04/24 11:38 Dose: 25 mcg
[2024-09-04] MEDS: LORazepam 0.5 MG TAB PO STA (12:54)
--- NOTE | 2024-09-04 16:38 | Nephrology Progress Note ---
Date of Service September 04, 2024 Assessment & Plan (1) Acute worsening of stage 3 chronic kidney disease: Plan: Juan due to ischemic ATN in setting of anemia and CHF. Cr down to 1.79 today His Baseline Cr ~ 1.4-1.7 a/w Cr 1.6 -lasix 20mg iv BID. he can be discharged on torsemide 20mg twice daily -Daily BMP/ Input and output w. daily weights preferably on the same scale. -Agree with Palliative care at home. -Monitor renal function with daily BMP -He will need renal follow up for volume management (2) Bilateral pneumonia: Plan: tx with Renally dosed IV cefepime. (3) Anemia of chronic disease: Plan: pt with known gastric polyp He is on regular intermittent procrit as well as IV venofer as outpt -HB is low than 7.4 Agree w/ 1 unit PRBC As per HPI he got venofer on 08/27, and Procrit last Saturday. - (4) Acute on chronic diastolic CHF (congestive heart failure): Plan: Very complex cardiac history , He appears to be volume overload on exam His torsemide was increased to 20mg daily as OP, -Daily assesment w/ weight. Daily weights, strict I and O Admission and Anticipated Discharge Date Admission Date: September 02, 2024 Subjective Seen for JUAN. Patient feels better today. He was having lunch at the time of my visit. Shortness of breath has improved. was at the bedside and provided additional history. Review of Systems 2 Review of Systems: All other systems were reviewed and negative except as noted in HPI Physical Exam 2 Physical Exam: General exam: Appears comfortable, no acute distress HEENT: Pupils are equal and reactive to light Neck: No JVD, neck is supple trachea is midline Respiratory system: Crackles bilaterally. Gastrointestinal: Abdomen is soft, non distended, non tender, bowel sounds are present CVS: Regular rate and rhythm. No murmurs, rubs or gallops Musculoskeletal: No joint or muscle tenderness Extremities: Non tender, 1+ edema, peripheral pulses are present Neuro: Oriented, no tremors, no focal neurological deficits Skin: No rashes Results & Data Vital Signs (Past 12 Hours) Vital Signs Temp Pulse Pulse Resp BP Pulse Ox O2 Del Method 09/04/24 15:04 36.6 C 96 H 95 H 111/60 95 Room Air 09/04/24 14:56 94 H 16 92 Room Air 09/04/24 14:28 87 09/04/24 11:20 85 16 98 Room Air 09/04/24 11:18 36.6 C 76 19 108/61 97 Room Air 09/04/24 08:00 Room Air 09/04/24 07:35 75 09/04/24 07:23 36.4 C L 75 19 103/61 98 Room Air 09/04/24 07:13 85 14 98 Room Air 09/04/24 04:59 123/65 Laboratory Results 09/04/24 10:07 09/04/24 10:07 WBC 5.47 RBC 2.71 L MCV 93.4 MCH 27.3 MCHC 29.2 L RDW Std Deviation 66.2 H RDW Coeff of Humberto 19.5 H Plt Count 87 L MPV 11.3
--- NOTE | 2024-09-04 18:15 | Hospitalist Progress Note ---
Date of Service September 04, 2024 Assessment & Plan (1) Hypoxia: (2) Bilateral pneumonia: (3) Acute worsening of stage 3 chronic kidney disease: (4) Chronic blood loss anemia: (5) Anemia of chronic disease: (6) Acute metabolic encephalopathy: (7) Atrial fibrillation: (8) Congestive heart failure: Plan per admitting service notes with addendum: This is an 89-year-old male who has a significant past medical history of valvular heart disease status post aortic valve replacement and mitral valve repair in 2004 with aortic valve bioprosthesis and mitral valve annular ring with 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 Hypoxia Bilateral Pneumonia Hemoptysis Presumed sepsis admit to PCU pt with multiple complex comorbidities - his volume status appears to be at baseline despite elevated BNP and with a mild HOLLY it appears he has a bilateral pneumonia tx with IV cefepime, flagyl, obtain MRSA screen, lactobacillus consult pulmonology for assistance pulmonary toilet with nebs, ISP and flutter valve sputum and blood culture 09/03 on Cefuroxime Pulm on board 09/04 respiratory status stable on room air continue Cefuroxime HOLLY superimposed on CKD 3 Cr 2.16 Baseline Cr ~ 1.4-1.7, suspect in setting of hypovolemia and diuresis pt to be administered blood transfusion x 1 unit along with IV antibiotics consult nephrology for further assistance, hold diuretics and KCL for now, pt with tenuous volume status so will defer to nephrology on when to resume Monitor renal function with daily BMP 09/03 crea 1.8 monitor 09/04 crea 1.7 Acute on Chronic Anemia in setting of chronic blood loss and medical renal disease pt with known gastric polyp, has appt in [place] in October for cauterization? pt receiving intermittent procrit as well as IV venofer as outpt hgb 6.9 today, type and crossed for 1 unit, will monitor hgb and volume status closely add haptoglobin, ldh to a.m. lab to r/o hemolysis 09/03 Hg went down again to 6.7 1 unit pRBC ordered possibly from hemoptysis, upper gi bleed, etc discussed with patient and daughter- no GI consult, EGD at this time continue Protonix BID, monitor CBC 1o/18 Hg stable at 7 no signs of overt bleeding today Metabolic encephalopathy 2/2 above, per family no hx of dementia at baseline but freq hosp delirium family to be at bedside 10/06 09/04 (+) hospital delirium ativan po 0.25mg q8h prn Chronic HFpEF S/p aortic Valve replacement, Bovine valve Hx of mitral valve repair hx of HTN - bp on low side today medically complex, recently hospitalization for decompensation, exam today appears to be consistent with cardiology exam on discharge His torsemide was increased to 20mg daily as OP, hold torsemide, aldactone and KCL for now Daily weights, strict I and O low threshold for cardiology consult, but will hold off for now He did receive IV venofer on 08/27 so family concerned that put him back into heart failure * 2D ECHO from January 2024: Left ventricle is normal in size. Moderate concentric LVH. Apical wall motion abnormality may reflect pacemaker activation. Flattened septum is consistent with RV pressure overload. EF 55 to 60%. Bioprosthetic aortic valve. Gradient is normal for prosthetic aortic valve. Annuloplasty ring and prior mitral valve repair is present with thickening of the mitral valve leaflets. Moderate mitral stenosis is present. Mild mitral and tricuspid regurgitation. Right ventricular systolic pressure is elevated to be 50 to 60 mmHg 09/03 Lasix 20mg IV BID 09/04 continue Lasix Persistent atrial fibrillation rate controlled with pacemaker, warfarin for anticoagulation INR therapeutic, hold warfarin for today given hemoptysis, consider IV heparin when subtherapeutic depending on clinic course and pulm consult 09/03 hold anticoagulation given anemia Moderate persistent asthma COPD Nocturnal Hypoxemia pulm toilet as above Hx Tachy/Pb Syndrome s/p Pacemaker HLD: chronic, stable, continue statin Tobacco use disorder chewing tobacco, currently has not been using Chronic Osteoarthritis Continue daily 5mg Prednisone, follows with rheum Hypothyroidism Continue levothyroxine 150 mcg daily BPH Continue flomax 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 Louis and Urology, Dr. Borges consulted as above Palliative care discussion discussion was held with family at bedside they are understanding of pt complex medical conditions and his gradual decline over several months family wishes to pursue all treatment to improve his baseline status, but would like to discuss with palliative care regarding transition when discharged about having more services at home and possibly hospice, palliative consult placed 09/03 Dr. Travis consulted 09/04 discussed at length with patient's plan to transition to home with hospice on Saturday DVT Ppx: hold evening coumadin 2/2 hemoptysis, recommend starting IV heparin when INR subtherapeutic Code status: DNR/DNI PCP: Richar Dispo: pending Admission and Anticipated Discharge Date Admission Date: September 02, 2024 Subjective ff up for CHF, pneumonia, etc was agitated, aggressive per RN ativan po given patient mostly sleeping not in distress discussed plan of care in detail with patient's she would like to transition with home with hospice on Saturday Review of Systems Review of Systems: all noted and negative except for above Physical Exam Physical Exam: General- sleeping, breathing with no effort or accessory muscle use Eyes- anicteric Neck- no JVD Lungs- mild rhonchi BL Heart- normal rate, regular rhythm; no murmurs Abdomen- normal bowel sounds, nondistended, soft, nontender Extremities- mild pretibial edema, no calf tenderness Neuro- sleeping Skin- warm & dry Results & Data Results & Data Vital Signs (Past 12 Hours) Vital Signs Temp Pulse Pulse Resp BP Pulse Ox O2 Del Method 09/04/24 15:04 36.6 C 96 H 95 H 111/60 95 Room Air 09/04/24 14:56 94 H 16 92 Room Air 09/04/24 14:28 87 09/04/24 11:20 85 16 98 Room Air 09/04/24 11:18 36.6 C 76 19 108/61 97 Room Air 09/04/24 08:00 Room Air 09/04/24 07:35 75 09/04/24 07:23 36.4 C L 75 19 103/61 98 Room Air 09/04/24 07:13 85 14 98 Room Air all noted and reviewed including below
[2024-09-04] MEDS: LORazepam 0.5 MG TAB PO PRN (22:19)
[2024-09-05 06:30] LABS: Hematocrit (blood only) 24.5 % (42.0-52.0); Hemoglobin 7.4 g/dl (14.0-18.0); Immature Granulocytes # (auto) 0.03 K/uL (0.01-0.20); Immature Granulocytes % (auto) 0.8 %; Lymphocytes # (auto) 0.39 K/uL (1.20-3.40); Lymphocytes % (auto) 10.2 %; Mean Corpuscular Hemoglobin 28.5 pg (25.0-34.0); Mean Corpuscular Hgb Conc 30.2 g/dL (32.0-36.0); Mean Corpuscular Volume 94.2 fL (80.0-100.0); Mean Platelet Volume 11.5 fL (9.4-12.4); Monocytes # (auto) 0.37 K/uL (0.11-0.59); Monocytes % (auto) 9.7 %; Neutrophils # (auto) 3.02 K/uL (1.40-6.50); Neutrophils % (auto) 79.3 %; Platelet Count 80 K/uL (130-400); RDW Coefficient of Variation 19.2 % (11.5-14.5); RDW Standard Deviation 65.1 fL (36.4-46.3); White Blood Count 3.81 K/ul (4.8-10.8)
[2024-09-05 06:52] LABS: Ovalocytes 1+; Polychromasia 1+
[2024-09-05 06:59] LABS: BUN Creatinine Ratio 35.1 (10-20); Creatinine Clr Calc Pharmacy 28.3 ml/min; Potassium 3.6 mmol/L (3.5-5.1)
--- NOTE | 2024-09-05 12:22 | Nephrology Progress Note ---
Date of Service September 05, 2024 Assessment & Plan (1) Acute worsening of stage 3 chronic kidney disease: Plan: Juan due to ischemic ATN in setting of anemia and acute HFpEF, persistent A fib. Cr down to 1.5 today from admission value 2.2 His Baseline Cr ~ 1.4-1.7 -changed lasix dose timing bid > bid17 >> lasix 20mg iv. >>>give extra dose if transfused -Daily BMP/ Input and output w. daily weights preferably on the same scale. -Agree with Palliative care at home. -Monitor renal function with daily BMP NEPHRO D/C RECS (PRELIMINARY) -resume OP diuretics (torsemide/spironoalctone) -? if palliative can give IV lasix after d/c -log daily standing wts after d/c -if goes home on palliative care would not check labs or f/u w/ nephro; if for neph f/u would be [place] (2) Bilateral pneumonia: Plan: ON CEFTin (3) Anemia of chronic disease: Plan: multifactorial from CKD, dilutional/HF, bladder CA, stool occult + and h/o partial colectomy for TVA; recent UTI/epididymitis, also w/ gastric polyp He is on regular intermittent procrit as well as IV venofer as outpt w/ hematology [facility] >> s/p venofer on 08/27, and Procrit 08/26 15292 units SQ. -HB is low than 7.4 s/p pRBC 09/04 (4) Acute on chronic diastolic CHF (congestive heart failure): Plan: Very complex cardiac history , He remains volume overload on exam diuretics as above -Daily assesment w/ STANDING weight if able Daily weights, strict I and O -continue 1.5L FR Admission and Anticipated Discharge Date Admission Date: September 02, 2024 Subjective c/o cough, nasal congestion. no sob; has sitter or family around the clock; had lasix late this PM Review of Systems 2 Review of Systems: All systems reviewed & are unremarkable except as noted in Subjective Physical Exam 2 Constitutional: well developed and well nourished sitting in chair on RA ENMT: Mouth: + dry oral mucous membranes Respiratory: normal respiratory effort Auscultation: + diminished lung sounds and + rhonchi (scattered expiratory) Cardiovascular: Rate/Rhythm: + irregularly irregular Heart Sounds: + murmur Extremities: + edema (trace) Musculoskeletal: Extremities: strength 5/5 throughout Skin: no rashes, warm and dry Neurologic: wiggins, fluent speech, no tremor Results & Data Vital Signs (Past 12 Hours) Vital Signs Temp Pulse Pulse Pulse Resp BP BP 09/05/24 11:05 90 18 09/05/24 10:57 70 19 104/42 L 09/05/24 10:53 70 106/60 09/05/24 10:13 96/58 L 09/05/24 09:56 74 103/47 L 09/05/24 09:42 73 103/50 L 09/05/24 09:36 77 83/53 L 09/05/24 08:33 36.9 C 85 21 102/46 L 09/05/24 07:29 65 22 09/05/24 07:14 69 09/05/24 05:45 75 20 99/44 L 09/05/24 03:13 36.6 C 77 16 91/39 L Pulse Ox O2 Del Method 09/05/24 11:05 92 Room Air 09/05/24 10:57 93 Room Air 09/05/24 10:53 09/05/24 10:13 09/05/24 09:56 09/05/24 09:42 09/05/24 09:36 09/05/24 08:33 99 Room Air 09/05/24 07:29 95 Room Air 09/05/24 07:14 09/05/24 05:45 09/05/24 03:13 94 Room Air Laboratory Results 09/05/24 06:12 09/05/24 06:12
--- NOTE | 2024-09-05 12:54 | Cardiology Progress Note ---
Date of Service September 05, 2024 Assessment & Plan (1) Chronic blood loss anemia: (2) Acute on chronic diastolic CHF (congestive heart failure): (3) Moderate mitral stenosis: (4) Pneumonia: (5) Persistent atrial fibrillation: Plan 09/03/24 Patient admitted for worsening cough, SOB, possible blood tinged sputum. Possible pneumonia on chest xray vs pulm edema. Patient appears volume overloaded on exam with b/l rales, edema, + JVD Has received several doses of IV lasix since admission. Most recent dose IV lasix was this morning 20 mg IV during transfusion. Would consider repeat dose of furosemide 20 mg IV this afternoon. Mild hypotension limiting meds. Consider initiation of midodrine if needed? Monitor I+O's. Monitor renal function/electrolytes Nephrology following as week given CKD. Allow for higher creatinine to improve volume status and symptoms. Palliative care also consulted. Ongoing anemia noted. Hbg down to 6.4 again this morning. Agree with transfusion. Currently receiving 2nd unit since yesterday Would hold coumadin. Risks of stroke vs bleeding discussed. At this point, he is higher risk of ongoing bleeding complications and will hold anticoagulation. Reassess if hbg stabilizes. Patient with chronic HFpEF with prior AVR (normal gradients per echo in January 2024) and Mitral valve repair with now moderate Mitral stenosis. Continue diuresis. Given multiple comorbidities and repeated admissions. Would agree with palliative care consult to discuss goals of care. 09/04/24: Volume status improving with IV lasix. Continue low dose IV lasix 20 mg BID today. Creatinine stable at 1.7. Monitor I+O's. Monitor electrolytes 09/05/2024: Improving volume status. Creatinine improved. Potassium borderline low; supplemental potassium ordered. Hemoglobin stable at 7.4 g/dL Anticoagulation discontinued, risks felt to be greater than the benefit. Home with hospice. Admission and Anticipated Discharge Date Admission Date: September 02, 2024 Supervising Physician Co-Signing Physician Notes I spent a total of 25 minutes on the date of service in preparation, delivery, and documentation of the care provided to this patient, excluding any time spent in the performance of separately billed services. I have personally performed a history and physical examination on the patient. I have reviewed the advance practitioner's documentation, and I agree with, and take responsibility for the plan of care. Subjective Patient seen and examined. Chart, medications, and telemetry reviewed. Family at bedside, noting plans for discharge home with home hospice. Telemetry: Atrial fibrillation, intermittent pacing, rates in the 70's and 80's Review of Systems Review of Systems: Unable to be obtained Physical Exam Physical Exam: General: A&Ox3. NAD. Eyes: PER. Conjunctiva pink, sclera clear. Neck: No overt JVD. Heart: Irregular, 70 bpm. Grade II/ systolic murmur. Grade I/ diastolic murmur. No rub. Lungs: Clear. No wheeze. Abdomen: +BS. Soft. Nontender. No organomegaly. Extremities: No significant edema. Dressing not removed. Limited neurological examination is without focal deficits. Results & Data Vital Signs (Past 12 Hours) Vital Signs Temp Pulse Pulse Pulse Resp BP BP 09/05/24 11:05 90 18 09/05/24 10:57 70 19 104/42 L 09/05/24 10:53 70 106/60 09/05/24 10:13 96/58 L 09/05/24 09:56 74 103/47 L 09/05/24 09:42 73 103/50 L 09/05/24 09:36 77 83/53 L 09/05/24 08:33 36.9 C 85 21 102/46 L 09/05/24 07:29 65 22 09/05/24 07:14 69 09/05/24 05:45 75 20 99/44 L 09/05/24 03:13 36.6 C 77 16 91/39 L Pulse Ox O2 Del Method 09/05/24 11:05 92 Room Air 09/05/24 10:57 93 Room Air 09/05/24 10:53 09/05/24 10:13 09/05/24 09:56 09/05/24 09:42 09/05/24 09:36 09/05/24 08:33 99 Room Air 09/05/24 07:29 95 Room Air 09/05/24 07:14 09/05/24 05:45 09/05/24 03:13 94 Room Air Laboratory Results CBC 09/05/24 Range/Units 06:12 WBC 3.81 L (4.8-10.8) K/ul RBC 2.60 L (4.70-6.10) M/uL Hgb 7.4 L (14.0-18.0) g/dl Hct 24.5 L (42.0-52.0) % Plt Count 80 L (130-400) K/uL Neut # (Auto) 3.02 (1.40-6.50) K/uL Lymph # (Auto) 0.39 L (1.20-3.40) K/uL Eagle # (Auto) 0.37 (0.11-0.59) K/uL Eos # (Auto) 0.00 (0.00-0.50) K/uL Baso # (Auto) 0.00 (0.00-0.20) K/uL Comprehensive Metabolic Panel 09/05/24 Range/Units 06:12 Sodium 138 (136-145) mmol/L Potassium 3.6 (3.5-5.1) mmol/L Chloride 103 (98-107) mmol/L Carbon Dioxide 29 (21-32) mmol/L BUN 54 H (6-23) mg/dl Creatinine 1.54 H (0.6-1.4) mg/dl Glucose 80 (70-99(Fasting)) mg/dl Calcium 8.0 L (8.6-10.3) mg/dl Intake and Output 09/04/24 09/05/24 09/05/24 22:59 06:59 14:59 Intake Total 220 / 620 Output Total 175 / 825 150 / 825 Balance 45 / -205 -150 / -205 Intake: Oral 220 / 620 Output: Urine 175 / 825 150 / 825 Other: # Unmeasured Voids 1 # Urine Diapers 1 1 Weight 59.5 kg
--- NOTE | 2024-09-05 12:58 | XRay Report ---
XR chest 1V portable CLINICAL HISTORY: ff up chf, pneumonia TECHNIQUE: Single frontal radiograph of the chest was obtained. Comparison: Comparison is made to chest radiograph 09/03/2024 FINDINGS: Lines and tubes are stable. Cardiomegaly is noted. Multifocal airspace opacities are seen. No evidenc e of pleural effusion or pneumothorax. IMPRESSION: Multifocal airspace opacities may represent atelectasis, pneumonia, and/or aspiration. Cardiomegaly i s seen. ACT 112: Negative or not required by law. Electronically signed by: Sebastian Nicole M.D. 09/05/2024 12:56 PM
[2024-09-05] MEDS: POTASSIUM CHLORIDE 10 MEQ TABCR PO ONE (13:57)
--- NOTE | 2024-09-05 15:14 | Hospitalist Progress Note ---
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 Hypoxia Bilateral Pneumonia Hemoptysis Presumed sepsis admit to PCU pt with multiple complex comorbidities - his volume status appears to be at baseline despite elevated BNP and with a mild HOLLY it appears he has a bilateral pneumonia tx with IV cefepime, flagyl, obtain MRSA screen, lactobacillus consult pulmonology for assistance pulmonary toilet with nebs, ISP and flutter valve sputum and blood culture 09/03 on Cefuroxime Pulm on board 09/04 respiratory status stable on room air continue Cefuroxime HOLLY superimposed on CKD 3 Cr 2.16 Baseline Cr ~ 1.4-1.7, suspect in setting of hypovolemia and diuresis pt to be administered blood transfusion x 1 unit along with IV antibiotics consult nephrology for further assistance, hold diuretics and KCL for now, pt with tenuous volume status so will defer to nephrology on when to resume Monitor renal function with daily BMP 09/03 crea 1.8 monitor 09/04 crea 1.7 Acute on Chronic Anemia in setting of chronic blood loss and medical renal disease pt with known gastric polyp, has appt in [place] in October for cauterization? pt receiving intermittent procrit as well as IV venofer as outpt hgb 6.9 today, type and crossed for 1 unit, will monitor hgb and volume status closely add haptoglobin, ldh to a.m. lab to r/o hemolysis 09/03 Hg went down again to 6.7 1 unit pRBC ordered possibly from hemoptysis, upper gi bleed, etc discussed with patient and daughter- no GI consult, EGD at this time continue Protonix BID, monitor CBC 1o/18 Hg stable at 7 no signs of overt bleeding today Metabolic encephalopathy 2/2 above, per family no hx of dementia at baseline but freq hosp delirium family to be at bedside 10/06 09/04 (+) hospital delirium ativan po 0.25mg q8h prn Chronic HFpEF S/p aortic Valve replacement, Bovine valve Hx of mitral valve repair hx of HTN - bp on low side today medically complex, recently hospitalization for decompensation, exam today appears to be consistent with cardiology exam on discharge His torsemide was increased to 20mg daily as OP, hold torsemide, aldactone and KCL for now Daily weights, strict I and O low threshold for cardiology consult, but will hold off for now He did receive IV venofer on 08/27 so family concerned that put him back into heart failure * 2D ECHO from January 2024: Left ventricle is normal in size. Moderate concentric LVH. Apical wall motion abnormality may reflect pacemaker activation. Flattened septum is consistent with RV pressure overload. EF 55 to 60%. Bioprosthetic aortic valve. Gradient is normal for prosthetic aortic valve. Annuloplasty ring and prior mitral valve repair is present with thickening of the mitral valve leaflets. Moderate mitral stenosis is present. Mild mitral and tricuspid regurgitation. Right ventricular systolic pressure is elevated to be 50 to 60 mmHg 09/03 Lasix 20mg IV BID 09/04 continue Lasix Persistent atrial fibrillation rate controlled with pacemaker, warfarin for anticoagulation INR therapeutic, hold warfarin for today given hemoptysis, consider IV heparin when subtherapeutic depending on clinic course and pulm consult 09/03 hold anticoagulation given anemia Moderate persistent asthma COPD Nocturnal Hypoxemia pulm toilet as above Hx Tachy/Pb Syndrome s/p Pacemaker HLD: chronic, stable, continue statin Tobacco use disorder chewing tobacco, currently has not been using Chronic Osteoarthritis Continue daily 5mg Prednisone, follows with rheum Hypothyroidism Continue levothyroxine 150 mcg daily BPH Continue flomax 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 Louis and Urology, Dr. Borges consulted as above Palliative care discussion discussion was held with family at bedside they are understanding of pt complex medical conditions and his gradual decline over several months family wishes to pursue all treatment to improve his baseline status, but would like to discuss with palliative care regarding transition when discharged about having more services at home and possibly hospice, palliative consult placed 09/03 Dr. Travis consulted 09/04 discussed at length with patient's plan to transition to home with hospice on Saturday DVT Ppx: hold evening coumadin 2/2 hemoptysis, recommend starting IV heparin when INR subtherapeutic Code status: DNR/DNI PCP: Richar Dispo: pending Admission and Anticipated Discharge Date Admission Date: September 02, 2024 Results & Data Results & Data Vital Signs (Past 12 Hours) Vital Signs Temp Pulse Pulse Pulse Resp BP BP 09/05/24 13:30 86 16 09/05/24 11:05 90 18 09/05/24 10:57 70 19 104/42 L 09/05/24 10:53 70 106/60 09/05/24 10:13 96/58 L 09/05/24 09:56 74 103/47 L 09/05/24 09:42 73 103/50 L 09/05/24 09:36 77 83/53 L 09/05/24 08:33 36.9 C 85 21 102/46 L 09/05/24 07:29 65 22 09/05/24 07:14 69 09/05/24 05:45 75 20 99/44 L Pulse Ox O2 Del Method 09/05/24 13:30 96 Room Air 09/05/24 11:05 92 Room Air 09/05/24 10:57 93 Room Air 09/05/24 10:53 09/05/24 10:13 09/05/24 09:56 09/05/24 09:42 09/05/24 09:36 09/05/24 08:33 99 Room Air 09/05/24 07:29 95 Room Air 09/05/24 07:14 09/05/24 05:45
[2024-09-05] MEDS: SODIUM CHLORIDE 0.65% NA SOLN 45 ML (OCEAN) STA (17:29)
[2024-09-05] MEDS: FUROSEMIDE INJ 20 MG/2 ML VIAL IV SCH (17:30)
[2024-09-05] MEDS ORDERED: BENZONATATE 100 MG CAPSULE PO PRN (19:34)
[2024-09-05] MEDS: guaiFENesin 600 MG TABCR PO SCH (20:13)
[2024-09-06 05:22] LABS: Hematocrit (blood only) 28.7 % (42.0-52.0); Hemoglobin 8.2 g/dl (14.0-18.0); Immature Granulocytes # (auto) 0.04 K/uL (0.01-0.20); Lymphocytes # (auto) 0.35 K/uL (1.20-3.40); Lymphocytes % (auto) 9.1 %; Mean Corpuscular Hemoglobin 27.6 pg (25.0-34.0); Mean Corpuscular Hgb Conc 28.6 g/dL (32.0-36.0); Mean Corpuscular Volume 96.6 fL (80.0-100.0); Mean Platelet Volume 11.9 fL (9.4-12.4); Monocytes # (auto) 0.38 K/uL (0.11-0.59); Monocytes % (auto) 9.9 %; Neutrophils # (auto) 3.08 K/uL (1.40-6.50); Platelet Count 90 K/uL (130-400); RDW Coefficient of Variation 18.7 % (11.5-14.5); RDW Standard Deviation 66.2 fL (36.4-46.3); Red Blood Count 2.97 M/uL (4.70-6.10); White Blood Count 3.85 K/ul (4.8-10.8)
[2024-09-06 05:35] LABS: BUN Creatinine Ratio 29.3 (10-20); Calcium 8.5 mg/dl (8.6-10.3); Creatinine Clr Calc Pharmacy 29.6 ml/min; Potassium 4.1 mmol/L (3.5-5.1)
[2024-09-06 07:44] VITALS: RESP 18
--- NOTE | 2024-09-06 10:02 | Cardiology Progress Note ---
Date of Service September 06, 2024 Assessment & Plan (1) Chronic blood loss anemia: (2) Acute on chronic diastolic CHF (congestive heart failure): (3) Moderate mitral stenosis: (4) Pneumonia: (5) Persistent atrial fibrillation: Plan Volume status improved. Discontinue IV furosemide Restart Torsemide (20 mg/day) and spironolactone (12.5 mg/day) Anticoagulation discontinued this admission, risks felt to be greater than the benefit. Pulmonary toilet discussed. Home with hospice today Admission and Anticipated Discharge Date Admission Date: September 02, 2024 Supervising Physician Co-Signing Physician Notes I spent a total of 30 minutes on the date of service in preparation, delivery, and documentation of the care provided to this patient, excluding any time spent in the performance of separately billed services. I have personally performed a history and physical examination on the patient. I have reviewed the advance practitioner's documentation, and I agree with, and take responsibility for the plan of care. Subjective Patient seen and examined. Chart, medications, and telemetry reviewed. Family at bedside. Today is a good day. More alert. Coughing spell after taking his AM medications. No chest pain. No palpitations. Review of Systems Review of Systems: As above. Otherwise, negative or noncontributory. Physical Exam Physical Exam: General: A&Ox3. NAD. Eyes: PER. Conjunctiva pink, sclera clear. Neck: No overt JVD. Heart: Irregular, 70 bpm. Grade II/ systolic murmur. Grade I/ diastolic murmur. No rub. Lungs: Diminished, decreased, with scattered wheezing and rhonchi. Abdomen: +BS. Soft. Nontender. No organomegaly. Extremities: No significant edema. Dressing not removed. Limited neurological examination is without focal deficits. Results & Data Vital Signs (Past 12 Hours) Vital Signs Temp Pulse Pulse Pulse Resp BP Pulse Ox 09/06/24 08:00 09/06/24 07:44 89 18 97 09/06/24 07:23 67 09/06/24 07:17 36.2 C L 72 13 103/48 L 99 09/06/24 03:00 36.1 C L 83 202 H 20 112/47 L 96 09/05/24 23:00 36.4 C L 107 H 20 100/55 L 97 O2 Del Method 09/06/24 08:00 Room Air 09/06/24 07:44 Room Air 09/06/24 07:23 09/06/24 07:17 Room Air 09/06/24 03:00 Room Air 09/05/24 23:00 Room Air Laboratory Results CBC 09/06/24 Range/Units 04:29 WBC 3.85 L (4.8-10.8) K/ul RBC 2.97 L (4.70-6.10) M/uL Hgb 8.2 L (14.0-18.0) g/dl Hct 28.7 L (42.0-52.0) % Plt Count 90 L (130-400) K/uL Neut # (Auto) 3.08 (1.40-6.50) K/uL Lymph # (Auto) 0.35 L (1.20-3.40) K/uL [place] # (Auto) 0.38 (0.11-0.59) K/uL Eos # (Auto) 0.00 (0.00-0.50) K/uL Baso # (Auto) 0.00 (0.00-0.20) K/uL Comprehensive Metabolic Panel 09/06/24 Range/Units 04:29 Sodium 137 (136-145) mmol/L Potassium 4.1 (3.5-5.1) mmol/L Chloride 103 (98-107) mmol/L Carbon Dioxide 29 (21-32) mmol/L BUN 43 H (6-23) mg/dl Creatinine 1.47 H (0.6-1.4) mg/dl Glucose 87 (70-99(Fasting)) mg/dl Calcium 8.5 L (8.6-10.3) mg/dl Intake and Output 09/05/24 09/06/24 09/06/24 22:59 06:59 14:59 Intake Total 300 / 925 50 / 925 Output Total 300 / 750 300 / 750 150 / 150 Balance 0 / 175 -250 / 175 -150 / -150 Intake: Oral 300 / 925 50 / 925 Output: Urine 300 / 750 300 / 750 150 / 150 Diagnostic Findings Telemetry: Atrial fibrillation, intermittent pacing, rates in the 70's and 80's
[2024-09-06 11:27] VITALS: TEMP 97.3; O2SAT 97
--- NOTE | 2024-09-06 11:37 | Hospitalist Progress Note ---
Date of Service September 06, 2024 Follow-up for acute CHF exacerbation, pneumonia, anemia, possible GI bleed, etc. Did not sleep well again overnight Seen resting in bedside chair, comfortable, not in distress Answering most questions appropriately Patient's at the bedside States he feels okay overall Breathing is improving, still having some cough No chest pain, palpitations, dizziness Ambulating in the hallways No other new symptoms Assessment & Plan (1) Hypoxia: (2) Bilateral pneumonia: (3) Acute worsening of stage 3 chronic kidney disease: (4) Chronic blood loss anemia: (5) Anemia of chronic disease: (6) Acute metabolic encephalopathy: (7) Atrial fibrillation: (8) Congestive heart failure: Plan per admitting service notes with addendum: This is an 89-year-old male who has a significant past medical history of 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 Hypoxia Bilateral Pneumonia Hemoptysis Presumed sepsis admit to PCU pt with multiple complex comorbidities - his volume status appears to be at baseline despite elevated BNP and with a mild HOLLY it appears he has a bilateral pneumonia tx with IV cefepime, flagyl, obtain MRSA screen, lactobacillus consult pulmonology for assistance pulmonary toilet with nebs, ISP and flutter valve sputum and blood culture 09/03 on Cefuroxime Pulm on board 09/04 respiratory status stable on room air continue Cefuroxime 09/06 on room air complete 6 day course of Cefuroxime BID to complete 10 day course HOLLY superimposed on CKD 3 Cr 2.16 Baseline Cr ~ 1.4-1.7, suspect in setting of hypovolemia and diuresis pt to be administered blood transfusion x 1 unit along with IV antibiotics consult nephrology for further assistance, hold diuretics and KCL for now, pt with tenuous volume status so will defer to nephrology on when to resume Monitor renal function with daily BMP 09/03 crea 1.8 monitor 09/04 crea 1.7 09/06 crea down to 1.4 Acute on Chronic Anemia in setting of chronic blood loss and medical renal disease pt with known gastric polyp, has appt in [place] in October for cauterization? pt receiving intermittent procrit as well as IV venofer as outpt hgb 6.9 today, type and crossed for 1 unit, will monitor hgb and volume status closely add haptoglobin, ldh to a.m. lab to r/o hemolysis 09/03 Hg went down again to 6.7 1 unit pRBC ordered possibly from hemoptysis, upper gi bleed, etc discussed with patient and daughter- no GI consult, EGD at this time continue Protonix BID, monitor CBC 09/04 Hg stable at 7 no signs of overt bleeding today 09/06 crea 1.4 Metabolic encephalopathy 2/2 above, per family no hx of dementia at baseline but [facility] delirium family to be at bedside 10/06 09/04 (+) hospital delirium ativan po 0.25mg q8h prn 09/06 mental status better this morning Chronic HFpEF S/p aortic Valve replacement, Bovine valve Hx of mitral valve repair hx of HTN - bp on low side today medically complex, recently hospitalization for decompensation, exam today appears to be consistent with cardiology exam on discharge His torsemide was increased to 20mg daily as OP, hold torsemide, aldactone and KCL for now Daily weights, strict I and O low threshold for cardiology consult, but will hold off for now He did receive IV venofer on 08/27 so family concerned that put him back into heart failure * 2D ECHO from January 2024: Left ventricle is normal in size. Moderate concentric LVH. Apical wall motion abnormality may reflect pacemaker a ctivation. Flattened septum is consistent with RV pressure overload. EF 55 to 60%. Bioprosthetic aortic valve. Gradient is normal for prosthetic aortic valve. Annuloplasty ring and prior mitral valve repair is present with thickening of the mitral valve leaflets. Moderate mitral stenosis is present. Mild mitral and tricuspid regurgitation. Right ventricular systolic pressure is elevated to be 50 to 60 mmHg 09/03 Lasix 20mg IV BID 09/04 continue Lasix 09/06 resume Torsemide 20mg daily and Spironolactone 12.5mg po daily Persistent atrial fibrillation rate controlled with pacemaker, warfarin for anticoagulation INR therapeutic, hold warfarin for today given hemoptysis, consider IV heparin when subtherapeutic depending on clinic course and pulm consult 09/03 hold anticoagulation given anemia 09/06 warfarin discontinued risks outweight benefits Moderate persistent asthma COPD Nocturnal Hypoxemia pulm toilet as above Hx Tachy/Pb Syndrome s/p Pacemaker HLD: chronic, stable, continue statin Tobacco use disorder chewing tobacco, currently has not been using Chronic Osteoarthritis Continue daily 5mg Prednisone, follows with rheum Hypothyroidism Continue levothyroxine 150 mcg daily BPH Continue flomax 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 Louis and Urology, Dr. Borges consulted as above Palliative care discussion discussion was held with family at bedside they are understanding of pt complex medical conditions and his gradual decline over several months family wishes to pursue all treatment to improve his baseline status, but would like to discuss with palliative care regarding transition when discharged about having more services at home and possibly hospice, palliative consult placed 09/03 Dr. Travis consulted 09/04 discussed at length with patient's plan to transition to home with hospice on Thursday 09/06 discussed with patient's plan to transition patient to home with hospice today Code status: DNR/DNI PCP: Richar Dispo: home with hospice Admission and Anticipated Discharge Date Admission Date: September 02, 2024 Review of Systems Review of Systems: all noted and negative except for above Physical Exam Physical Exam: General- oriented x 2, not in distress, speaks in sentences with no effort or accessory muscle use Eyes- anicteric Neck- no JVD Lungs- mild crackles at the bases no wheezing Heart- normal rate, regular rhythm; no murmurs Abdomen- normal bowel sounds, nondistended, soft, nontender Extremities- no pretibial edema, no calf tenderness Neuro- alert, oriented x 2; no gross focal neurologic deficits Skin- warm & dry Results & Data Results & Data Vital Signs (Past 12 Hours) Vital Signs Temp Pulse Pulse Pulse Pulse Pulse Resp 09/06/24 11:24 36.3 C L 63 18 09/06/24 11:11 70 18 09/06/24 10:10 114 H 90 09/06/24 08:00 09/06/24 07:44 89 18 09/06/24 07:23 67 09/06/24 07:17 36.2 C L 72 13 09/06/24 03:00 36.1 C L 83 202 H 20 Resp Resp BP Pulse Ox Pulse Ox Pulse Ox O2 Del Method 09/06/24 11:24 98/47 L 97 Room Air 09/06/24 11:11 98 Room Air 09/06/24 10:10 6 L 18 97 99 09/06/24 08:00 Room Air 09/06/24 07:44 97 Room Air 09/06/24 07:23 09/06/24 07:17 103/48 L 99 Room Air 09/06/24 03:00 112/47 L 96 Room Air all noted and reviewed including below
[2024-09-06 11:58] VITALS: BP 104/42; PULSE 82
--- NOTE | 2024-09-06 12:14 | Discharge Summary ---
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 Hypoxia Bilateral Pneumonia Hemoptysis Presumed sepsis admit to PCU pt with multiple complex comorbidities - his volume status appears to be at baseline despite elevated BNP and with a mild HOLLY it appears he has a bilateral pneumonia tx with IV cefepime, flagyl, obtain MRSA screen, lactobacillus consult pulmonology for assistance pulmonary toilet with nebs, ISP and flutter valve sputum and blood culture on Cefuroxime daily Pulm on board 09/06 blood culture: negative on room air complete 6 day course of Cefuroxime BID to complete 10 day course HOLLY superimposed on CKD 3 Cr 2.16 Baseline Cr ~ 1.4-1.7, suspect in setting of hypovolemia and diuresis pt to be administered blood transfusion x 1 unit along with IV antibiotics consult nephrology for further assistance, hold diuretics and KCL for now, pt with tenuous volume status so will defer to nephrology on when to resume 09/06 crea 1.8--> 1.4 Acute on Chronic Anemia in setting of chronic blood loss and medical renal disease pt with known gastric polyp, has appt in [place] in October for cauterization? pt receiving intermittent procrit as well as IV venofer as outpt hgb 6.9 today, type and crossed for 1 unit, will monitor hgb and volume status closely add haptoglobin, ldh to a.m. lab to r/o hemolysis 09/03 Hg went down again to 6.7 1 unit pRBC ordered possibly from hemoptysis, upper gi bleed, etc discussed with patient and daughter- no GI consult, EGD at this time continue Protonix BID, monitor CBC 09/04 Hg stable at 7 no signs of overt bleeding today 10/20 Hg stable at 8.2 Metabolic encephalopathy 2/2 above, per family no hx of dementia at baseline but freq hosp delirium family to be at bedside 10/06 09/04 (+) hospital delirium ativan po 0.25mg q8h prn 09/06 mental status better this morning Chronic HFpEF S/p aortic Valve replacement, Bovine valve Hx of mitral valve repair hx of HTN - bp on low side today medically complex, recently hospitalization for decompensation, exam today appears to be consistent with cardiology exam on discharge His torsemide was increased to 20mg daily as OP, hold torsemide, aldactone and KCL for now Daily weights, strict I and O low threshold for cardiology consult, but will hold off for now He did receive IV venofer on 08/27 so family concerned that put him back into h eart failure * 2D ECHO from January 2024: Left ventricle is normal in size. Moderate concentric LVH. Apical wall motion abnormality may reflect pacemaker activation. Flattened septum is consistent with RV pressure overload. EF 55 to 60%. Bioprosthetic aortic valve. Gradient is normal for prosthetic aortic valve. Annuloplasty ring and prior mitral valve repair is present with thickening of the mitral valve leaflets. Moderate mitral stenosis is present. Mild mitral and tricuspid regurgitation. Right ventricular systolic pressure is elevated to be 50 to 60 mmHg 09/03 [employer] consulted Lasix 20mg IV BID given diuresed well 09/06 resume Torsemide 20mg daily and Spironolactone 12.5mg po daily Persistent atrial fibrillation rate controlled with pacemaker, warfarin for anticoagulation INR therapeutic, hold warfarin for today given hemoptysis, consider IV heparin when subtherapeutic depending on clinic course and pulm consult 09/03 hold anticoagulation given anemia 09/06 warfarin discontinued risks outweigh benefits Moderate persistent asthma COPD Nocturnal Hypoxemia pulm toilet as above Hx Tachy/Pb Syndrome s/p Pacemaker HLD: chronic, stable, continue statin Tobacco use disorder chewing tobacco, currently has not been using Chronic Osteoarthritis Continue daily 5mg Prednisone, follows with rheum Hypothyroidism Continue levothyroxine 150 mcg daily BPH Continue flomax 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 Louis and Urology, Dr. Borges consulted as above Palliative care discussion discussion was held with family at bedside they are understanding of pt complex medical conditions and his gradual decline over several months family wishes to pursue all treatment to improve his baseline status, but would like to discuss with palliative care regarding transition when discharged about having more services at home and possibly hospice, palliative consult placed 09/03 Dr. Travis consulted 09/04 discussed at length with patient's plan to transition to home with hospice on Thursday 09/06 discussed with patient's plan to transition patient to home with hospice today Code status: DNR/DNI PCP: Richar Dispo: home with hospice Notes For Next Care Provider Medication Changes From Visit New Medications: Cefuroxime, Mucinex, Tessalon Perles Discontinued Medication: Warfarin Admission HPI Per Admitting Provider This is an 89-year-old male who has a significant past medical history of valvular heart disease status post aortic valve replacement and mitral valve repair in 2003 with aortic valve bioprosthesis and mitral valve annular ring with 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 History obtained from and daughter at bedside due to patient underlying confusion. Patient's daughter states that he is constantly flagged as having dementia when in fact mentally he is pretty sharp at baseline. Due to frequent hospitalizations he has been treadwell ving increasing delirium. reports that patient started coughing on Saturday and developed chest congestion. He has been sleeping in the recliner for the past 2 nights due to being unable to breathe. He has been coughing up mucus with occasional blood-tinged. They state his temperature at home was 97.7 but he was very, "hot," without any blankets on and they felt that he was feverish. They deny any nausea, vomiting or diarrhea. Since being in the ER he has been getting more confused. Since being discharged from his last hospitalization he followed up with cardiology. It was reported that he had a 3 to 4 pound weight gain and therefore his torsemide was increased to 20 mg daily. He was also seen by hematology and oncology and was started on IV Venofer with a dose on 08/27/2024. Currently they feel his weight is only up approximately 2 to 3 pounds. He has been taking his medications as prescribed. and daughter at bedside are very fatigued from his frequent hospitalizations and general decline. They are interested in palliative conversation for more support at home but wish to pursue full treatment while hospitalized to try to improve baseline status. Overall they feel he has been eating and drinking well at home. In ED patient was borderline hypotensive but afebrile. His admitting hemoglobin is 6.9. His INR is therapeutic at 1.6. He does have an increase in his BUN and creatinine at 64 and 2.16. His BNP is elevated at 2289, troponin 41.6 and Pro-Buddy 0.51. Urinalysis and bio fire negative. Chest x-ray concerning for pulmonary edema and questionable right lower lobe pneumonia. He was typed and crossed and ordered to be transfused 1 unit given his persistently low hemoglobin. of significance patient recently hospitalized 08/08-08/08 to 08/11 secondary to acutely decompensated CHF, acute on chronic kidney injury that responded to IV diuresis. He also received Procrit injection due to acute on chronic anemia. Admission Exam Per Admitting Provider Constitutional: Chronically ill appearing male, arouses to verbal stimuli, but confused, drowsy, vitals as above, NAD Head: Normocephalic, Atraumatic Eyes: PERRL, conjunctivae normal, anicteric sclerae ENMT: external ear and nose normal, oropharynx dry Neck: trachea midline, no thyromegaly normal visual inspection Respiratory: normal respiratory effort, on 2L of O2, b/l rhonchi at bases, poor inspiration, no w/r. no accessory muscle use Cardiovascular: IRR/IRR, II/ JERRY LUSB, trace to +1 RLE edema, no LLE Vessels: no JVD or carotid bruit Chest: normal inspection of chest Abdomen: normal bowel sounds, soft, nontender, no hepatosplenomegaly Musculoskeletal: no cyanosis or clubbing, extremities motor strength 5/5 Skin: no rashes, warm and dry normal turgor + healing wound to L posterior calf Neurologic: PERRL, EOMI, accommodation nl, no face palsy, no dysarthria CN's II-XI intact bilaterally and moves all extremities Psychiatric: A+Ox1, euthymic affect : deferred Discharge Exam General- oriented x 2, not in distress, speaks in sentences with no effort or accessory muscle use Eyes- anicteric Neck- no JVD Lungs- mild crackles at the bases no wheezing Heart- normal rate, regular rhythm; no murmurs Abdomen- normal bowel sounds, nondistended, soft, nontender Extremities- no pretibial edema, no calf tenderness Neuro- alert, oriented x 2; no gross focal neurologic deficits Skin- warm & dry Updated Medication List Medication Instructions Recorded Confirmed Type esomeprazole magnesium 40 mg 40 mg PO BID 03/25/19 09/02/24 History capsule,delayed release (Nexium) prednisone 5 mg tablet 5 mg PO QAM 03/25/19 09/02/24 History ferrous sulfate 325 mg (65 mg 325 mg PO QAM 04/25/21 09/02/24 History iron) tablet tamsulosin 0.4 mg capsule 0.4 mg PO HS 01/23/24 09/02/24 History cholecalciferol (vitamin D3) 25 25 mcg PO QAM 03/31/24 09/02/24 History mcg (1,000 unit) tablet (Vitamin D3) cyanocobalamin (vitamin B-12) 1,000 mcg PO QAM 03/31/24 09/02/24 History 1,000 mcg tablet (Vitamin B-12) rosuvastatin 10 mg tablet 10 mg PO QPM 05/18/24 09/02/24 History albuterol sulfate 90 mcg/actuation 2 puff inhalation Q4H PRN 08/08/24 09/02/24 History aerosol inhaler Shortness Of Breath Or Wheezing coenzyme Q10 100 mg capsule 200 mg PO DAILY 08/08/24 09/02/24 History (CoQ-10) fluticasone propionate 50 1 spray intranasal DAILY 08/08/24 09/02/24 History mcg/actuation nasal spray,suspension ipratropium bromide 0.02 % 2.5 ml inhalation QID PRN 08/08/24 09/02/24 History solution for inhalation Shortness Of Breath Or Wheezing magnesium 250 mg tablet 250 mg PO DAILY 08/08/24 09/02/24 History potassium chloride 10 mEq 10 meq PO DAILY #30 tabs 08/11/24 09/02/24 Rx tablet,extended release(part/cryst) spironolactone 25 mg tablet 12.5 mg (1/2 x 25 mg) PO QAM #30 08/11/24 09/02/24 Rx tabs torsemide 10 mg tablet 20 mg PO QAM 08/26/24 09/02/24 History levothyroxine 150 mcg tablet 150 mcg PO DAILYBB 09/02/24 09/02/24 History benzonatate 100 mg capsule 100 mg PO TID PRN cough #15 caps 09/06/24 Rx cefuroxime axetil 500 mg tablet 500 mg PO Q24H 6 days #6 tabs 09/06/24 Rx guaifenesin 600 mg tablet, 600 mg PO Q12 6 days #12 tabs 09/06/24 Rx extended release 12 hr (Mucinex) Hospital Stay Data Consultations 09/02/24 09:15 ED Decision to Admit Stat 09/02/24 09:28 ED Decision to Admit Stat 09/02/24 10:42 Consult Nephrology Routine 09/02/24 10:45 Consult Palliative Care Routine 09/02/24 11:43 Consult Pulmonology Routine 09/02/24 15:01 Consult Cardiology Routine Diagnostic Imagining Performed 09/02/24 10:42 CT chest diagnostic wo con Stat CT chest diagnostic wo con CLINICAL HISTORY: hypoxia, pulm edema vs pna TECHNIQUE: Multidetector row helical CT of the chest was performed. Coronal and sagittal reformations were obtained. Automated dose lowering techniques and/or adjustment according to patient size were utilized for this exam. CT DOSE: 524.21 mGy.cm Comparison: Comparison is made to CT chest 04/01/2024 FINDINGS: Lungs and pleura: Trace bilateral pleural effusions are seen. Faint groundglass opacities are in the bilateral lower lungs. Heart and pericardium: Cardiomegaly is seen with biatrial enlargement. Aortic valvular prosthesis is seen. Vessels: Severe atherosclerotic changes in the aorta and coronary arteries. Pulmonary trunk measures 37 mm in diameter. Mediastinum and karson: Unremarkable. Chest wall and lower neck: Unremarkable. Abdomen: A hiatal hernia is seen. Bones: Degenerative changes in the thoracic spine. IMPRESSION: 1. Bilateral airspace opacities may represent pneumonia or alveolar edema. 2. Pulmonary hypertension and cardiomegaly. 3. Small bilateral pleural effusions. ACT 112: Negative or not required by law. Pending Results Patient Have Any Pending Studies at Discharge: No Discharge Instructions Given to Patient (Per Discharging Provider) PLEASE REFER TO YOUR NEW MEDICATION LIST AND FOLLOW INSTRUCTIONS CAREFULLY. YOUR NEW MEDICATIONS INCLUDE: Cefuroxime- antibiotic for pneumonia Mucinex, Tessalon perles- for cough HOME HOSPICE SERVICE TO CONTINUE CARE AT HOME. Total Time Total Time Spent Total Time Spent (In Minutes): 45 minutes
[2024-09-06] MEDS: HEPARIN 100 UNIT/ML 5ML FLUSH ONE (13:47)
--- NOTE | 2024-09-06 14:49 | Palliative Care Consultation ---
Date of Consultation September 06, 2024 Assessment & Plan (1) Dyspnea and respiratory abnormalities: (2) Weakness generalized: (3) Frailty syndrome in geriatric patient: (4) Declining performance status: (5) Advanced care planning/counseling discussion: I met with pt and his dtr at bedside for over 75min face to face. This was a very protracted and lengthy discussion. Pt has a very hard time hearing and focusing. He is very easily off track and tangential. He could not elucidate clear goals. He could not provide much detail about his medical issues and told me to ask his . He did not know his oncologist. He was surprised when I asked him to tell me what he understood about his chronic heart and lung disease. HIs daughter was more specific. She is an RN with [employer] and lives about an hour away. She disclosed that both /her mom and dtr/her sister are in denial and tend to avoid hard conversations. She states she has been the one they call every time he has a decline, flare up or increased medical needs. She is feeling burnt out and exhausted with having to bear the burden of not only providing his care but also trying to initiate discussions about what is happening at this junction, the decline they are seeing and what it means for someone who is near their 9th decade of life with multi system advancing illness. Dtr states that when she tries to broach the topic of being more realistic about what lies ahead in the future and how the chronic issues are worsening and without a "cure", she is ostracized and criticized by both her mom and sister. is tearful and crying through parts of our discussion and she is honest that she needs medical teams to take on the burden and obligation of conveying the bad news about decline and what it means and how focusing on QOL matters now because time is running short. Dtr very clearly states that she cannot preserve her family relationships without this burden being handled by medical teams because with her bringing up the need for advanced illness planning and even trying to discuss palliative care integration and possibly timing for hospice, she has been harshly reprimanded and isolated. She notes she loves her stepfather and he has raised her since she was 7yo. She does not want to see him suffer and knows from her own professional experience the path they are on and she further adds he would not want to in the hospital. She knows he wants to be home. When I asked him, he reaffirmed this but then added "but how about if you just let me slide in and out of the hospital when I want and just do some things if i want them and then i can go back home?" Advised of how acute admissions work and that "on demand in and out" option is not feasible. His dtr is his POA. She knows he does not want to on machines or in hospital. She feels there is room for hospice at home to help focus on QOL and keep him at home but she notes mother is anxious/avoidant of crisis and constantly calls 911 "because that's her way to dealing with it and not having to admit there's a serious problem - so long as he keeps coming back here then she feels like you guys can fix it all." We discussed the option of clinic follow up vs in the hospital next Saturday when I am back on IP service if he is still here. I offered a 10am meeting time for Saturday if he is still here and dtr states they will plan for that unless he is dc. If he is dc she will coordinate OP clinic and I provided my contact information for that to be done. Patient was very tearful when discussing preferences for his care at the [facility]. Apart from noting he wants to be home, he could/would not further elaborate. He is very tearful when told he had advanced illness and responded with this is the first time he is hearing about it. He does seem forgetful at time but dtr denies any symptoms of dementia as far as she has noted. (6) Palliative care by specialist: Introduced Palliative Medicine and explained our role in patient's care. Patient and/or family were receptive to palliative services for goals of care discussions. Reviewed we are different from hospice, a home health nurse visiting service. (7) Heart failure, diastolic, with acute decompensation: (8) Acute worsening of stage 3 chronic kidney disease: (9) Chronic venous insufficiency: (10) Mitral stenosis and aortic insufficiency: Plan As above Thank you for allowing us to participate in the ongoing care of this patient. Please page with any additional concerns. 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 and mitral valve repair in 2004 with aortic valve bioprosthesis and mitral valve annular ring with prosthetic aortic valve stenosis and moderate mitral stenosis, persistent atrial fibrillation, tachybradycardia syndrome status post pacemaker implant in 2017, HTN, HLD, CKD stage IIIb, chronic arthritic disease on chronic prednisone, COPD with pleural plaque and bladder carcinoma He is quite [place] with hearing aides in place He is seen with his step daughter who is an RN for [employer] present at bedside He has a hard time reporting his issues and focuses on symptoms such as cough or hematuria He is unable to tell me much about his medical hx and was surprised when I asked him what he understood about his heart failure or COPD He admits to persistent sob and weakness he is not able to do his household yardwork the way he once did he cannot walk more than 10 feet without stopping for dyspnea He tells me his babysits their great grandchild and is done around 5pm, so she does not come in until after 5pm. In the past 2 days I have offered telemed via [facility] iPad family meetings and consult for 630pm and 7pm but she declined. He adds that she does not like to give up any time with her babysitting and that she loves spending time with the grand and great grandchildren more than anything else. Allergies Allergy/AdvReac Type Severity Reaction Status Date / Time Penicillins Allergy Unknown RASH/EL-ORBITAL Verified 09/02/24 11:48 EDEMA olanzapine [From Zyprexa] AdvReac Severe Agitated Verified 09/02/24 09:09 zolpidem [From Ambien] AdvReac Severe Hallucinati Unverified 09/02/24 09:09 Home Medications Medication Instructions Recorded Confirmed Type esomeprazole magnesium 40 mg 40 mg PO BID 03/25/19 09/02/24 History capsule,delayed release (Nexium) prednisone 5 mg tablet 5 mg PO QAM 03/25/19 09/02/24 History ferrous sulfate 325 mg (65 mg 325 mg PO QAM 04/25/21 09/02/24 History iron) tablet tamsulosin 0.4 mg capsule 0.4 mg PO HS 01/23/24 09/02/24 History cholecalciferol (vitamin D3) 25 25 mcg PO QAM 03/31/24 09/02/24 History mcg (1,000 unit) tablet (Vitamin D3) cyanocobalamin (vitamin B-12) 1,000 mcg PO QAM 03/31/24 09/02/24 History 1,000 mcg tablet (Vitamin B-12) rosuvastatin 10 mg tablet 10 mg PO QPM 05/18/24 09/02/24 History albuterol sulfate 90 mcg/actuation 2 puff inhalation Q4H PRN 08/08/24 09/02/24 History aerosol inhaler Shortness Of Breath Or Wheezing coenzyme Q10 100 mg capsule 200 mg PO DAILY 08/08/24 09/02/24 History (CoQ-10) fluticasone propionate 50 1 spray intranasal DAILY 08/08/24 09/02/24 History mcg/actuation nasal spray,suspension ipratropium bromide 0.02 % 2.5 ml inhalation QID PRN 08/08/24 09/02/24 History solution for inhalation Shortness Of Breath Or Wheezing magnesium 250 mg tablet 250 mg PO DAILY 08/08/24 09/02/24 History potassium chloride 10 mEq 10 meq PO DAILY #30 tabs 08/11/24 09/02/24 Rx tablet,extended release(part/cryst) spironolactone 25 mg tablet 12.5 mg (1/2 x 25 mg) PO QAM #30 08/11/24 09/02/24 Rx tabs torsemide 10 mg tablet 20 mg PO QAM 08/26/24 09/02/24 History levothyroxine 150 mcg tablet 150 mcg PO DAILYBB 09/02/24 09/02/24 History benzonatate 100 mg capsule 100 mg PO TID PRN cough #15 caps 09/06/24 Rx cefuroxime axetil 500 mg tablet 500 mg PO Q24H 6 days #6 tabs 09/06/24 Rx guaifenesin 600 mg tablet, 600 mg PO Q12 6 days #12 tabs 09/06/24 Rx extended release 12 hr (Mucinex) Patient History Medical History Restrictive lung disease Enlarged prostate Elevated troponin level (05/18/24) notes elevated troponin level ad mn ed visit. Reports she did message cardiology regarding and no response as of current. Anemia reports iron deficiency anemia. Asthma not sure on official dx details. History of respiratory failure (12/2023) History of encephalopathy (03/2024) Hx of bladder cancer (05/2021) TURBT, chemo + radiation Nocturnal hypoxemia oxygen prn 2L [place] (hard of hearing) High cholesterol History of elevated PSA Osteoarthritis CKD (chronic kidney disease), stage III History of pulmonary edema History of pericarditis (2022) Moderate mitral stenosis "some calcification there" - told valve was working okay. History of RSV infection (12/2023) and hx respiratory failure Dec 2023 History of pneumonia (12/2023) Hypothyroid Persistent atrial fibrillation History of CHF (congestive heart failure) (03/2024) Cellulitis dx 05/18/24 left leg - id ed. Hematuria current: messaged urology regarding. Reports was told do colonoscopy/egd first then will follow up. Hx cystoscopy march 2024 and was clear. History of basal cell carcinoma History of rectal fissure History of COVID-19 DX'D 10/2020 THRU [facility] [place]-SOB, PRODUCTIVE COUGH, BODY ACHES, FEVER-RECOVERED AT HOME-SYMPTOMS RESOLVED SOB (shortness of breath) on exertion Arthritis Anticoagulated on Coumadin Heart disease Stark's esophagus GERD (gastroesophageal reflux disease) History of pulmonary embolism (2013) FOLLOWING SHOULDER SURGERY APPROX 2013 -NO ISSUES SINCE Tachy-kurt syndrome part of reason for pacemaker, pt unsure if occurs at current. History of atrial flutter Restless legs syndrome Dyslipidemia Carotid artery disease pt is unsure about this. Nothing has ever been talked about regarding. Spinal stenosis of lumbar region History of paroxysmal supraventricular tachycardia BPH (benign prostatic hypertrophy) Diverticular disease of colon COPD (chronic obstructive pulmonary disease) pt not sure about official dx of. Hypertension Surgical History History of aortic valve replacement (2003) History of mitral valve repair (2003) [facility]. History of cardiac radiofrequency ablation x2 most recent approx 2013. History of right cataract surgery History of left cataract surgery Pacemaker TACHY-KURT SYNDROME. ALSO HX OF A-FIB. LAST CHECKED within 2023 - [facility] History of bladder surgery TURBT 05/29/2021 [facility] History of esophagogastroduodenoscopy (EGD) MULTIPLE History of tonsillectomy History of total knee replacement LEFT KNEE History of herniorrhaphy History of surgery MOHS PROCEDURE ON FACE History of colonoscopy History of bowel resection S/T DIVERTICULITIS History of arthroscopy B/L SHOULDERS Status post inguinal hernia repair Family History Brother Diabetes Cancer Esophageal Cancer Mother Colorectal cancer Lung cancer Social History (Updated 09/02/24 @ 11:10 by Diana Johnson PA-C) Smoking Status: Never smoker Tobacco Type: Smokeless Tobacco (Dip or Chew) Second Hand Exposure: No; Do You Dip or Chew Tobacco: Yes (currently not using); Hx Alcohol Use: No Hx Substance Use: No Preferred Language: Armenian Communication Ability: Impaired Communication Ability Comment: Pt confused, daughter providing history Visual Impairment: Limited Hearing Ability: Hard of Hearing [employer] Officer Required: No Beliefs That Will Affect Care: None marital status: Current Living Situation: Spouse Current Living Situation Comment: home with current occupational status: retired Feels Safe at Home: Yes Diet: regular caffeine: No during the past year weight has: remained stable Physical Activity Frequency: Other Physical Activity Frequency Comment: "Does alot of yard work" Assistive Devices: Walker Review of Systems Review of Systems: All systems reviewed & are unremarkable except as noted in Subjective Physical Exam Physical Exam: Thin and frail, chronically ill appearing [place] wasting alert to person place and time but easily confused with medical details and very easily off track/tangential/perseverating inc resp effort with conversational dyspnea s1s2, +murmurs abd soft TOMPKINS, antalgic gait, OA /age related changed skin pale, cool to touch, mild clubbing to fingers noted bilaterally generalized weakness limited insight Results & Data Vital Signs (Past 12 Hours) Vital Signs Temp Pulse Pulse Pulse Pulse Pulse Pulse 09/06/24 13:13 36.3 C L 63 202 H 82 09/06/24 13:10 36.3 C L 63 202 H 82 09/06/24 11:52 36.3 C L 63 202 H 82 09/06/24 11:24 36.3 C L 63 09/06/24 11:11 70 09/06/24 10:10 114 H 90 09/06/24 09:33 09/06/24 08:00 09/06/24 07:44 89 09/06/24 07:23 67 09/06/24 07:17 36.2 C L 72 09/06/24 03:00 36.1 C L 83 202 H Resp Resp Resp BP BP Pulse Ox Pulse Ox 09/06/24 13:13 18 104/42 L 98/47 L 97 09/06/24 13:10 18 104/42 L 98/47 L 97 09/06/24 11:52 18 104/42 L 98/47 L 97 09/06/24 11:24 18 98/47 L 97 09/06/24 11:11 18 98 09/06/24 10:10 6 L 18 97 09/06/24 09:33 09/06/24 08:00 09/06/24 07:44 18 97 09/06/24 07:23 09/06/24 07:17 13 103/48 L 99 09/06/24 03:00 20 112/47 L 96 Pulse Ox O2 Del Method 09/06/24 13:13 09/06/24 13:10 09/06/24 11:52 09/06/24 11:24 Room Air 09/06/24 11:11 Room Air 09/06/24 10:10 99 09/06/24 09:33 Room Air 09/06/24 08:00 Room Air 09/06/24 07:44 Room Air 09/06/24 07:23 09/06/24 07:17 Room Air 09/06/24 03:00 Room Air Laboratory Results 09/06/24 09/05/24 09/04/24 Range/Units 04:29 06:12 10:07 WBC 3.85 L 3.81 L 5.47 (4.8-10.8) K/ul RBC 2.97 L 2.60 L 2.71 L (4.70-6.10) M/uL Hgb 8.2 L 7.4 L 7.4 L (14.0-18.0) g/dl Hct 28.7 L 24.5 L 25.3 L (42.0-52.0) % MCV 96.6 94.2 93.4 (80.0-100.0) fL MCH 27.6 28.5 27.3 (25.0-34.0) pg MCHC 28.6 L 30.2 L 29.2 L (32.0-36.0) g/dL RDW Std Deviation 66.2 H 65.1 H 66.2 H (36.4-46.3) fL RDW Coeff of Humberto 18.7 H 19.2 H 19.5 H (11.5-14.5) % Plt Count 90 L 80 L 87 L (130-400) K/uL MPV 11.9 11.5 11.3 (9.4-12.4) fL Immature Gran % (Auto) 1.0 0.8 0.5 % Neut % (Auto) 80.0 79.3 85.4 % Lymph % (Auto) 9.1 10.2 6.8 % [place] % (Auto) 9.9 9.7 6.9 % Eos % (Auto) 0.0 0.0 0.0 % Baso % (Auto) 0.0 0.0 0.4 % Reticulocyte % (Auto) (0.50-2.00) % Neut # (Auto) 3.08 3.02 4.67 (1.40-6.50) K/uL Lymph # (Auto) 0.35 L 0.39 L 0.37 L (1.20-3.40) K/uL [place] # (Auto) 0.38 0.37 0.38 (0.11-0.59) K/uL Eos # (Auto) 0.00 0.00 0.00 (0.00-0.50) K/uL Baso # (Auto) 0.00 0.00 0.02 (0.00-0.20) K/uL Reticulocyte # (0.020-0.100) 10^6/uL Immature Gran # (Auto) 0.04 0.03 0.03 (0.01-0.20) K/uL Toxic Granulation Polychromasia 1+ 1+ Basophilic Stippling Anisocytosis Tear Drop Cells 1+ Ovalocytes 1+ 1+ Haptoglobin (43-212) mg/dL PT (9.0-12.0) Seconds INR (0.9-1.1) VBG pH (7.36-7.41) VBG pCO2 (38-50) mmHg VBG pO2 mmHg VBG HCO3 mmol/L VBG O2 Saturation % VBG Base Excess mEq/L Sodium 137 138 135 L (136-145) mmol/L Potassium 4.1 3.6 4.0 (3.5-5.1) mmol/L Chloride 103 103 101 (98-107) mmol/L Carbon Dioxide 29 29 27 (21-32) mmol/L Anion Gap 5 6 7 (3-11) BUN 43 H 54 H 70 H (6-23) mg/dl Creatinine 1.47 H 1.54 H 1.79 H (0.6-1.4) mg/dl Est Cr Clr Drug Dosing 29.6 28.3 24.3 eGFR 45.88 43.39 36.22 BUN/Creatinine Ratio 29.3 H 35.1 H 39.1 H (10-20) Glucose 87 80 96 (70-99(Fasting)) mg/dl Lactate (0.4-2.0) mmol/L Calcium 8.5 L 8.0 L 8.0 L (8.6-10.3) mg/dl Magnesium 2.3 (1.7-2.4) mg/dl Total Bilirubin (0.2-1.0) mg/dl AST (13-39) U/L ALT (7-52) U/L Alkaline Phosphatase (34-104) U/L Lactate Dehydrogenase (86-244) U/L Troponin I High Sens (0-20) pg/ml B-Natriuretic Peptide (0-100) pg/ml Total Protein (6.0-8.3) gm/dl Albumin (3.4-5.0) gm/dl Globulin (2.5-4.0) gm/dl Albumin/Globulin Ratio (0.9-2) Procalcitonin (0-0.5) ng/ml Urine Color Urine Appearance (Clear) Urine pH (4.5-7.5) Ur Specific Vici (1.000-1.030) Urine Protein (Negative) Urine Glucose (UA) (Negative) Urine Ketones (Negative) Urine Blood (Negative) Urine Nitrite (Negative) Urine Bilirubin (Negative) Urine Urobilinogen (Negative) Ur Leukocyte Esterase (Negative) Urine WBC (Auto) (0-5) /hpf Urine RBC (Auto) (0-2) /hpf U Hyaline Cast (Auto) (0-2) /lpf U Epithel Cells (Auto) (0-2) /hpf Urine Bacteria (Auto) (None Seen) Nasal Screen MRSA (PCR) (Negative) Stool Occult Bld Scrn Adenovirus (PCR) (NotDetected) B. pertussis DNA (PCR) (NotDetected) B.parapertussis DNA PCR (NotDetected) C. pneumoniae DNA (PCR) (NotDetected) Coronavirus OC43 (PCR) (NotDetected) Coronavirus HKU1 (PCR) (NotDetected) Coronavirus 229E (PCR) (NotDetected) SARS-CoV-2 (PCR) (NotDetected) Coronavirus NL63 (PCR) (NotDetected) Human Metapneumovir PCR (NotDetected) Influenza Type A (PCR) (NotDetected) Influenza Type B (PCR) (NotDetected) M. pneumoniae (PCR) (NotDetected) Parainfluenza 1 (PCR) (NotDetected) Parainfluenza 2 (PCR) (NotDetected) Parainfluenza 3 (PCR) (NotDetected) Parainfluenza 4 (PCR) (NotDetected) RSV (PCR) (NotDetected) Entero/Rhino (PCR) (NotDetected) Blood Type Antibody Screen Antibody Identification Antibody ID Comment Antigen Identification Crossmatch 09/03/24 09/03/24 09/02/24 Range/Units 14:18 05:41 22:45 WBC 4.18 L (4.8-10.8) K/ul RBC 2.31 L (4.70-6.10) M/uL Hgb 7.6 L 6.4 L* (14.0-18.0) g/dl Hct 25.3 L 21.6 L (42.0-52.0) % MCV 93.5 (80.0-100.0) fL MCH 27.7 (25.0-34.0) pg MCHC 29.6 L (32.0-36.0) g/dL RDW Std Deviation 68.7 H (36.4-46.3) fL RDW Coeff of Humberto 20.6 H (11.5-14.5) % Plt Count 78 L (130-400) K/uL MPV 11.1 (9.4-12.4) fL Immature Gran % (Auto) 0.5 % Neut % (Auto) 94.2 % Lymph % (Auto) 3.6 % [place] % (Auto) 1.7 % Eos % (Auto) 0.0 % Baso % (Auto) 0.0 % Reticulocyte % (Auto) 6.48 H (0.50-2.00) % Neut # (Auto) 3.94 (1.40-6.50) K/uL Lymph # (Auto) 0.15 L (1.20-3.40) K/uL [place] # (Auto) 0.07 L (0.11-0.59) K/uL Eos # (Auto) 0.00 (0.00-0.50) K/uL Baso # (Auto) 0.00 (0.00-0.20) K/uL Reticulocyte # 0.150 H (0.020-0.100) 10^6/uL Immature Gran # (Auto) 0.02 (0.01-0.20) K/uL Toxic Granulation 1+ Polychromasia 2+ Basophilic Stippling 1+ Anisocytosis Present Tear Drop Cells 1+ Ovalocytes 1+ Haptoglobin <10 L (43-212) mg/dL PT 21.2 H (9.0-12.0) Seconds INR 2.1 H (0.9-1.1) VBG pH (7.36-7.41) VBG pCO2 (38-50) mmHg VBG pO2 mmHg VBG HCO3 mmol/L VBG O2 Saturation % VBG Base Excess mEq/L Sodium 136 (136-145) mmol/L Potassium 4.0 (3.5-5.1) mmol/L Chloride 102 (98-107) mmol/L Carbon Dioxide 25 (21-32) mmol/L Anion Gap 9 (3-11) BUN 62 H (6-23) mg/dl Creatinine 1.86 H D (0.6-1.4) mg/dl Est Cr Clr Drug Dosing 23.4 eGFR 34.59 BUN/Creatinine Ratio 33.3 H (10-20) Glucose 131 H (70-99(Fasting)) mg/dl Lactate (0.4-2.0) mmol/L Calcium 8.0 L (8.6-10.3) mg/dl Magnesium 2.2 (1.7-2.4) mg/dl Total Bilirubin 1.9 H (0.2-1.0) mg/dl AST 15 (13-39) U/L ALT 6 L (7-52) U/L Alkaline Phosphatase 53 (34-104) U/L Lactate Dehydrogenase 176 (86-244) U/L Troponin I High Sens (0-20) pg/ml B-Natriuretic Peptide (0-100) pg/ml Total Protein 5.4 L (6.0-8.3) gm/dl Albumin 3.2 L (3.4-5.0) gm/dl Globulin 2.2 L (2.5-4.0) gm/dl Albumin/Globulin Ratio 1.5 (0.9-2) Procalcitonin 0.74 H (0-0.5) ng/ml Urine Color Yellow Urine Appearance Clear (Clear) Urine pH 5.5 (4.5-7.5) Ur Specific Vici 1.011 (1.000-1.030) Urine Protein Negative (Negative) Urine Glucose (UA) Negative (Negative) Urine Ketones Negative (Negative) Urine Blood Trace H (Negative) Urine Nitrite Negative (Negative) Urine Bilirubin Negative (Negative) Urine Urobilinogen Negative (Negative) Ur Leukocyte Esterase Negative (Negative) Urine WBC (Auto) 0-5 (0-5) /hpf Urine RBC (Auto) 3-5 H (0-2) /hpf U Hyaline Cast (Auto) 3-5 H (0-2) /lpf U Epithel Cells (Auto) 0-2 (0-2) /hpf Urine Bacteria (Auto) None Seen (None Seen) Nasal Screen MRSA (PCR) (Negative) Stool Occult Bld Scrn Adenovirus (PCR) (NotDetected) B. pertussis DNA (PCR) (NotDetected) B.parapertussis DNA PCR (NotDetected) C. pneumoniae DNA (PCR) (NotDetected) Coronavirus OC43 (PCR) (NotDetected) Coronavirus HKU1 (PCR) (NotDetected) Coronavirus 229E (PCR) (NotDetected) SARS-CoV-2 (PCR) (NotDetected) Coronavirus NL63 (PCR) (NotDetected) Human Metapneumovir PCR (NotDetected) Influenza Type A (PCR) (NotDetected) Influenza Type B (PCR) (NotDetected) M. pneumoniae (PCR) (NotDetected) Parainfluenza 1 (PCR) (NotDetected) Parainfluenza 2 (PCR) (NotDetected) Parainfluenza 3 (PCR) (NotDetected) Parainfluenza 4 (PCR) (NotDetected) RSV (PCR) (NotDetected) Entero/Rhino (PCR) (NotDetected) Blood Type Antibody Screen Antibody Identification Antibody ID Comment Antigen Identification Crossmatch 09/02/24 09/02/24 09/02/24 Range/Units 21:40 21:32 18:36 WBC (4.8-10.8) K/ul RBC (4.70-6.10) M/uL Hgb 7.6 L (14.0-18.0) g/dl Hct 26.5 L (42.0-52.0) % MCV (80.0-100.0) fL MCH (25.0-34.0) pg MCHC (32.0-36.0) g/dL RDW Std Deviation (36.4-46.3) fL RDW Coeff of Humberto (11.5-14.5) % Plt Count (130-400) K/uL MPV (9.4-12.4) fL Immature Gran % (Auto) % Neut % (Auto) % Lymph % (Auto) % [place] % (Auto) % Eos % (Auto) % Baso % (Auto) % Reticulocyte % (Auto) (0.50-2.00) % Neut # (Auto) (1.40-6.50) K/uL Lymph # (Auto) (1.20-3.40) K/uL [place] # (Auto) (0.11-0.59) K/uL Eos # (Auto) (0.00-0.50) K/uL Baso # (Auto) (0.00-0.20) K/uL Reticulocyte # (0.020-0.100) 10^6/uL Immature Gran # (Auto) (0.01-0.20) K/uL Toxic Granulation Polychromasia Basophilic Stippling Anisocytosis Tear Drop Cells Ovalocytes Haptoglobin (43-212) mg/dL PT (9.0-12.0) Seconds INR (0.9-1.1) VBG pH (7.36-7.41) VBG pCO2 (38-50) mmHg VBG pO2 mmHg VBG HCO3 mmol/L VBG O2 Saturation % VBG Base Excess mEq/L Sodium (136-145) mmol/L Potassium (3.5-5.1) mmol/L Chloride (98-107) mmol/L Carbon Dioxide (21-32) mmol/L Anion Gap (3-11) BUN (6-23) mg/dl Creatinine (0.6-1.4) mg/dl Est Cr Clr Drug Dosing eGFR BUN/Creatinine Ratio (10-20) Glucose (70-99(Fasting)) mg/dl Lactate 2.0 (0.4-2.0) mmol/L Calcium (8.6-10.3) mg/dl Magnesium (1.7-2.4) mg/dl Total Bilirubin (0.2-1.0) mg/dl AST (13-39) U/L ALT (7-52) U/L Alkaline Phosphatase (34-104) U/L Lactate Dehydrogenase (86-244) U/L Troponin I High Sens (0-20) pg/ml B-Natriuretic Peptide (0-100) pg/ml Total Protein (6.0-8.3) gm/dl Albumin (3.4-5.0) gm/dl Globulin (2.5-4.0) gm/dl Albumin/Globulin Ratio (0.9-2) Procalcitonin (0-0.5) ng/ml Urine Color Urine Appearance (Clear) Urine pH (4.5-7.5) Ur Specific Vici (1.000-1.030) Urine Protein (Negative) Urine Glucose (UA) (Negative) Urine Ketones (Negative) Urine Blood (Negative) Urine Nitrite (Negative) Urine Bilirubin (Negative) Urine Urobilinogen (Negative) Ur Leukocyte Esterase (Negative) Urine WBC (Auto) (0-5) /hpf Urine RBC (Auto) (0-2) /hpf U Hyaline Cast (Auto) (0-2) /lpf U Epithel Cells (Auto) (0-2) /hpf Urine Bacteria (Auto) (None Seen) Nasal Screen MRSA (PCR) (Negative) Stool Occult Bld Scrn Positive A Cancelled Adenovirus (PCR) (NotDetected) B. pertussis DNA (PCR) (NotDetected) B.parapertussis DNA PCR (NotDetected) C. pneumoniae DNA (PCR) (NotDetected) Coronavirus OC43 (PCR) (NotDetected) Coronavirus HKU1 (PCR) (NotDetected) Coronavirus 229E (PCR) (NotDetected) SARS-CoV-2 (PCR) (NotDetected) Coronavirus NL63 (PCR) (NotDetected) Human Metapneumovir PCR (NotDetected) Influenza Type A (PCR) (NotDetected) Influenza Type B (PCR) (NotDetected) M. pneumoniae (PCR) (NotDetected) Parainfluenza 1 (PCR) (NotDetected) Parainfluenza 2 (PCR) (NotDetected) Parainfluenza 3 (PCR) (NotDetected) Parainfluenza 4 (PCR) (NotDetected) RSV (PCR) (NotDetected) Entero/Rhino (PCR) (NotDetected) Blood Type Antibody Screen Antibody Identification Antibody ID Comment Antigen Identification Crossmatch 09/02/24 09/02/24 09/02/24 Range/Units 11:35 10:09 09:30 WBC (4.8-10.8) K/ul RBC (4.70-6.10) M/uL Hgb (14.0-18.0) g/dl Hct (42.0-52.0) % MCV (80.0-100.0) fL MCH (25.0-34.0) pg MCHC (32.0-36.0) g/dL RDW Std Deviation (36.4-46.3) fL RDW Coeff of Humberto (11.5-14.5) % Plt Count (130-400) K/uL MPV (9.4-12.4) fL Immature Gran % (Auto) % Neut % (Auto) % Lymph % (Auto) % [place] % (Auto) % Eos % (Auto) % Baso % (Auto) % Reticulocyte % (Auto) (0.50-2.00) % Neut # (Auto) (1.40-6.50) K/uL Lymph # (Auto) (1.20-3.40) K/uL [place] # (Auto) (0.11-0.59) K/uL Eos # (Auto) (0.00-0.50) K/uL Baso # (Auto) (0.00-0.20) K/uL Reticulocyte # (0.020-0.100) 10^6/uL Immature Gran # (Auto) (0.01-0.20) K/uL Toxic Granulation Polychromasia Basophilic Stippling Anisocytosis Tear Drop Cells Ovalocytes Haptoglobin (43-212) mg/dL PT (9.0-12.0) Seconds INR (0.9-1.1) VBG pH (7.36-7.41) VBG pCO2 (38-50) mmHg VBG pO2 mmHg VBG HCO3 mmol/L VBG O2 Saturation % VBG Base Excess mEq/L Sodium (136-145) mmol/L Potassium (3.5-5.1) mmol/L Chloride (98-107) mmol/L Carbon Dioxide (21-32) mmol/L Anion Gap (3-11) BUN (6-23) mg/dl Creatinine (0.6-1.4) mg/dl Est Cr Clr Drug Dosing eGFR BUN/Creatinine Ratio (10-20) Glucose (70-99(Fasting)) mg/dl Lactate (0.4-2.0) mmol/L Calcium (8.6-10.3) mg/dl Magnesium (1.7-2.4) mg/dl Total Bilirubin (0.2-1.0) mg/dl AST (13-39) U/L ALT (7-52) U/L Alkaline Phosphatase (34-104) U/L Lactate Dehydrogenase (86-244) U/L Troponin I High Sens 41.6 H (0-20) pg/ml B-Natriuretic Peptide (0-100) pg/ml Total Protein (6.0-8.3) gm/dl Albumin (3.4-5.0) gm/dl Globulin (2.5-4.0) gm/dl Albumin/Globulin Ratio (0.9-2) Procalcitonin (0-0.5) ng/ml Urine Color Yellow Urine Appearance Clear (Clear) Urine pH 5.5 (4.5-7.5) Ur Specific Vici 1.019 (1.000-1.030) Urine Protein 1+ H (Negative) Urine Glucose (UA) Negative (Negative) Urine Ketones Trace H (Negative) Urine Blood Negative (Negative) Urine Nitrite Negative (Negative) Urine Bilirubin Negative (Negative) Urine Urobilinogen Negative (Negative) Ur Leukocyte Esterase Trace H (Negative) Urine WBC (Auto) 0-5 (0-5) /hpf Urine RBC (Auto) 0-2 (0-2) /hpf U Hyaline Cast (Auto) 0-2 (0-2) /lpf U Epithel Cells (Auto) 0-2 (0-2) /hpf Urine Bacteria (Auto) None Seen (None Seen) Nasal Screen MRSA (PCR) Negative (Negative) Stool Occult Bld Scrn Adenovirus (PCR) (NotDetected) B. pertussis DNA (PCR) (NotDetected) B.parapertussis DNA PCR (NotDetected) C. pneumoniae DNA (PCR) (NotDetected) Coronavirus OC43 (PCR) (NotDetected) Coronavirus HKU1 (PCR) (NotDetected) Coronavirus 229E (PCR) (NotDetected) SARS-CoV-2 (PCR) (NotDetected) Coronavirus NL63 (PCR) (NotDetected) Human Metapneumovir PCR (NotDetected) Influenza Type A (PCR) (NotDetected) Influenza Type B (PCR) (NotDetected) M. pneumoniae (PCR) (NotDetected) Parainfluenza 1 (PCR) (NotDetected) Parainfluenza 2 (PCR) (NotDetected) Parainfluenza 3 (PCR) (NotDetected) Parainfluenza 4 (PCR) (NotDetected) RSV (PCR) (NotDetected) Entero/Rhino (PCR) (NotDetected) Blood Type Antibody Screen Antibody Identification Antibody ID Comment Antigen Identification Crossmatch 09/02/24 09/02/24 09/02/24 Range/Units 08:56 08:13 08:01 WBC 8.43 (4.8-10.8) K/ul RBC 2.58 L (4.70-6.10) M/uL Hgb 6.9 L* (14.0-18.0) g/dl Hct 25.0 L (42.0-52.0) % MCV 96.9 (80.0-100.0) fL MCH 26.7 (25.0-34.0) pg MCHC 27.6 L (32.0-36.0) g/dL RDW Std Deviation 75.1 H (36.4-46.3) fL RDW Coeff of Humberto 22.0 H (11.5-14.5) % Plt Count 88 L (130-400) K/uL MPV 10.5 (9.4-12.4) fL Immature Gran % (Auto) 0.5 % Neut % (Auto) 87.3 % Lymph % (Auto) 4.7 % [place] % (Auto) 7.0 % Eos % (Auto) 0.1 % Baso % (Auto) 0.4 % Reticulocyte % (Auto) (0.50-2.00) % Neut # (Auto) 7.36 H (1.40-6.50) K/uL Lymph # (Auto) 0.40 L (1.20-3.40) K/uL [place] # (Auto) 0.59 (0.11-0.59) K/uL Eos # (Auto) 0.01 (0.00-0.50) K/uL Baso # (Auto) 0.03 (0.00-0.20) K/uL Reticulocyte # (0.020-0.100) 10^6/uL Immature Gran # (Auto) 0.04 (0.01-0.20) K/uL Toxic Granulation Polychromasia 1+ Basophilic Stippling Anisocytosis Present Tear Drop Cells 2+ Ovalocytes 1+ Haptoglobin (43-212) mg/dL PT 25.7 H (9.0-12.0) Seconds INR 2.6 H (0.9-1.1) VBG pH 7.41 (7.36-7.41) VBG pCO2 41 (38-50) mmHg VBG pO2 30 mmHg VBG HCO3 26 mmol/L VBG O2 Saturation < 60.0 % VBG Base Excess 1.2 mEq/L Sodium 135 L (136-145) mmol/L Potassium 4.5 (3.5-5.1) mmol/L Chloride 100 (98-107) mmol/L Carbon Dioxide 26 (21-32) mmol/L Anion Gap 9 (3-11) BUN 64 H (6-23) mg/dl Creatinine 2.16 H (0.6-1.4) mg/dl Est Cr Clr Drug Dosing Not Reportable eGFR 28.91 BUN/Creatinine Ratio 29.6 H (10-20) Glucose 100 H (70-99(Fasting)) mg/dl Lactate (0.4-2.0) mmol/L Calcium 8.4 L (8.6-10.3) mg/dl Magnesium (1.7-2.4) mg/dl Total Bilirubin 1.4 H (0.2-1.0) mg/dl AST 16 (13-39) U/L ALT 7 (7-52) U/L Alkaline Phosphatase 65 (34-104) U/L Lactate Dehydrogenase (86-244) U/L Troponin I High Sens 44.0 H (0-20) pg/ml B-Natriuretic Peptide 2289 H (0-100) pg/ml Total Protein 5.8 L (6.0-8.3) gm/dl Albumin 3.4 (3.4-5.0) gm/dl Globulin 2.4 L (2.5-4.0) gm/dl Albumin/Globulin Ratio 1.4 (0.9-2) Procalcitonin 0.51 H (0-0.5) ng/ml Urine Color Urine Appearance (Clear) Urine pH (4.5-7.5) Ur Specific Vici (1.000-1.030) Urine Protein (Negative) Urine Glucose (UA) (Negative) Urine Ketones (Negative) Urine Blood (Negative) Urine Nitrite (Negative) Urine Bilirubin (Negative) Urine Urobilinogen (Negative) Ur Leukocyte Esterase (Negative) Urine WBC (Auto) (0-5) /hpf Urine RBC (Auto) (0-2) /hpf U Hyaline Cast (Auto) (0-2) /lpf U Epithel Cells (Auto) (0-2) /hpf Urine Bacteria (Auto) (None Seen) Nasal Screen MRSA (PCR) (Negative) Stool Occult Bld Scrn Adenovirus (PCR) Not Detected (NotDetected) B. pertussis DNA (PCR) Not Detected (NotDetected) B.parapertussis DNA PCR Not Detected (NotDetected) C. pneumoniae DNA (PCR) Not Detected (NotDetected) Coronavirus OC43 (PCR) Not Detected (NotDetected) Coronavirus HKU1 (PCR) Not Detected (NotDetected) Coronavirus 229E (PCR) Not Detected (NotDetected) SARS-CoV-2 (PCR) Not Detected (NotDetected) Coronavirus NL63 (PCR) Not Detected (NotDetected) Human Metapneumovir PCR Not Detected (NotDetected) Influenza Type A (PCR) Not Detected (NotDetected) Influenza Type B (PCR) Not Detected (NotDetected) M. pneumoniae (PCR) Not Detected (NotDetected) Parainfluenza 1 (PCR) Not Detected (NotDetected) Parainfluenza 2 (PCR) Not Detected (NotDetected) Parainfluenza 3 (PCR) Not Detected (NotDetected) Parainfluenza 4 (PCR) Not Detected (NotDetected) RSV (PCR) Not Detected (NotDetected) Entero/Rhino (PCR) Not Detected (NotDetected) Blood Type O Positive Antibody Screen POSITIVE A Antibody Identification Anti-E Antibody ID Comment Antigen Identification E Antigen - NEGATIVE Crossmatch See Detail Diagnostic Findings Chest X-Ray 09/02/24 07:44 XR chest 1V portable CLINICAL HISTORY: Dyspnea COMPARISON STUDY: Chest CT April 01, 2024. Chest radiograph August 08, 2024. FINDINGS: Right internal jugular [id number], left leg and pacer, median sternotomy wires and prosthetic cardiac valves are again noted. Cardiomegaly is unchanged. Pulmonary edema is noted. This is slightly improved when compared to prior exam. There is no pneumothorax. There are small bilateral pleural effusions. Right basilar opacity is present. IMPRESSION: 1. Cardiomegaly with interstitial pulmonary edema and small bilateral pleural e ffusions . 2. Right basilar opacity which may be related to pulmonary edema. Superimposed pneumonia could appear similar. Radiographic follow-up is recommended. ACT 112: Negative or not required by law. Electronically signed by: Raza Robert M.D. 09/02/2024 8:[address] 09/02/24 10:42 CT chest diagnostic wo con CLINICAL HISTORY: hypoxia, pulm edema vs pna TECHNIQUE: Multidetector row helical CT of the chest was performed. Coronal and sagittal reformations were obtained. Automated dose lowering techniques and/or adjustment according to patient size were utilized for this exam. CT DOSE: 524.21 mGy.cm Comparison: Comparison is made to CT chest 04/01/2024 FINDINGS: Lungs and pleura: Trace bilateral pleural effusions are seen. Faint groundglass opacities are in the bilateral lower lungs. Heart and pericardium: Cardiomegaly is seen with biatrial enlargement. Aortic valvular prosthesis is seen. Vessels: Severe atherosclerotic changes in the aorta and coronary arteries. Pulmonary trunk measures 37 mm in diameter. Mediastinum and karson: Unremarkable. Chest wall and lower neck: Unremarkable. Abdomen: A hiatal hernia is seen. Bones: Degenerative changes in the thoracic spine. IMPRESSION: 1. Bilateral airspace opacities may represent pneumonia or alveolar edema. 2. Pulmonary hypertension and cardiomegaly. 3. Small bilateral pleural effusions. ACT 112: Negative or not required by law. Electronically signed by: Sebastian Nicole M.D. 09/02/2024 11:22 AM Chest X-Ray 09/03/24 21:15 XR chest 1V portable CLINICAL HISTORY: rattly lung sounds TECHNIQUE: Single frontal radiograph of the chest was obtained. Comparison: Comparison is made to chest radiograph 09/02/2024 FINDINGS: Lines and tubes are stable. Cardiomegaly is noted. The aortic arch is calcified. There is prominence and cephalization of the vasculature with Roby B lines seen. Previously noted bibasilar airspace opacities are less evident on today's exam. No evidence of pleural effusion or pneumothorax. IMPRESSION: Interval decrease in previously noted airspace opacities likely representing imp roving pulmonary edema although moderate interstitial edema remains present. ACT 112: Negative or not required by law. Electronically signed by: Sebastian Nicole M.D. 09/04/2024 8:24 AM Chest X-Ray 09/05/24 09:56 XR chest 1V portable CLINICAL HISTORY: ff up chf, pneumonia TECHNIQUE: Single frontal radiograph of the chest was obtained. Comparison: Comparison is made to chest radiograph 09/03/2024 FINDINGS: Lines and tubes are stable. Cardiomegaly is noted. Multifocal airspace opacities are seen. No evidence of pleural effusion or pneumothorax. IMPRESSION: Multifocal airspace opacities may represent atelectasis, pneumonia, and/or aspiration. Cardiomegaly is seen. ACT 112: Negative or not required by law. Electronically signed by: Sebastian Nicole M.D. 09/05/2024 12:56 PM PG Care Time/CCT Total # of Minutes Spent Total Time Spent with Patient: Total time spent is greater than 50% in coordination of care (as documented) at patient's floor/unit and/or counseling patient: I spent 145 minutes overall addressing this case: 15 min in medical data review/discussion with referring provider(s) and/or preparation for the visit 20 min in direct interaction with the patient/exam 75 min in Advance Care Planning/Goals of Care discussions as detailed above in note (must be >16min) 15 min in subsequent review and synthesis of assessment and plan 20 min communicating with other providers regarding the patient's case: nursing, primary team Advanced Care Planning 14130 Advanced Care Planning 30 Min [id number] Advanced Care Planning Additional 30 [place] [address] IN/OBS CONSULT LVL 5,80M (25 - SIGNIFICANT, SEPARATELY IDENTIFIABLE ) Patient Type New Diagnoses Dyspnea and respiratory abnormalities R06.00; R06.89 Weakness generalized R53.1 Frailty syndrome in geriatric patient R54 Declining performance status R53.81 Advanced care planning/counseling discussion Z71.89 Palliative care by specialist Z51.5 Heart failure, diastolic, with acute decompensation I50.33 Acute worsening of stage 3 chronic kidney disease N18.30 Chronic venous insufficiency I87.2 Mitral stenosis and aortic insufficiency I08.0 Additional Codes Advanced Care Planning - 22643 Advanced Care Planning 30 Min: 33422 Advanced Care Planning 30 Min ([id number]) Advanced Care Planning - 95158 Advanced Care Planning Additional 30 Min: 85454 Advanced Care Planning Additional 30 Min ([id number])
== END 2024-09-06 14:45 | disposition hospice, home (50) | DRG 871 ==
LOC: ED 07:30 → EDINP 09:55 → SUATTDRO 09:55 → 4W 12:50